=== PATIENT | male | born 1950 | race Caucasian/White ===

== ENCOUNTER → 2018-07-22 09:43 | Outpatient (CLI) | payer MEDICARE, MEDICAID, SELFPAY ==
--- NOTE | 2018-07-22 09:55 | DI.REPORT_ITS ---
SYMPTOMS/DIAGNOSIS: CELLULITIS OF RT LOWER LIMB, GREAT TOE RT, L03.115 RIGHT GREAT TOE: Three views. Comparison is 03/27/12. Destructive changes are seen at the terminal tuft of the right great toe. There is soft tissue swelling noted. The findings raise the question of osteomyelitis. Mass or neoplastic process can not be excluded. Please correlate clinically. Degenerative changes are seen at the first metatarsal phalangeal joint. There is a hallux valgus deformity noted. No radiopaque foreign bodies are seen in the soft tissues. Old fracture deformities are seen at the second, third and fourth metatarsals. IMPRESSION: Destructive changes involving the terminal tuft of the great toe with associated soft tissue swelling. The findings raise the question of osteomyelitis. Mass/neoplastic process can not be excluded. Please correlate clinically.
== END ==
PROVIDERS: PCP Nurse Practitioner Family; Visit Provider Nurse Practitioner Family
DX: L03.115 Cellulitis of right lower limb (principal); L03.031 Cellulitis of right toe; M79.89 Other specified soft tissue disorders
CPT/HCPCS: 73660

== ENCOUNTER 2018-09-01 14:24 | Outpatient (CLI) | payer MEDICARE, MEDICAID, SELFPAY ==
[2018-09-01 14:52] LABS: HCT 35.8 % (40.0-50.0); Mean Corp. HGB Concentration 33.5 g/dL (32.0-36.0); Mean Corpuscular Hemoglobin 30.2 pg (27.0-33.0); Mean Corpuscular Volume 89.9 fL (80-95); Mean Platelet Volume 9.6 fL (8.0-11.0); Platelet Count 204 x1000/uL (130-400); RBC 3.98 m/cumm (4.50-6.00); White Blood Cell Count 6.08 k/cumm (4.4-10.8)
[2018-09-01 15:35] LABS: ESR 77 MM/HR (1-20)
[2018-09-01 16:29] LABS: ALT 27 U/L (12-78); AST 25 U/L (15-37); Albumin 3.2 g/dL (3.4-5.0); Alkaline Phosphatase 120 U/L (46-116); Anion Gap 8.6 mmol/L (3-11); BUN 17 mg/dL (7-18); Bilirubin, Total 0.5 mg/dL (0.2-1.0); C-Reactive Protein 2.93 mg/dL (0.0-0.3); CO2 28.4 mmol/L (21.0-32.0); CREATININE 0.79 mg/dL (0.70-1.30); Calcium 8.7 mg/dL (8.5-10.1); Chloride 102 mmol/L (98-107); Glucose 146 mg/dL (70-100); Potassium 4.1 mmol/L (3.5-5.1); Sodium 139 mmol/L (136-145); Total Protein 7.3 g/dL (6.4-8.2)
== END 2018-09-01 14:44 ==
PROVIDERS: PCP Nurse Practitioner Family; Visit Provider Podiatrist
DX: E11.621 Type 2 diabetes mellitus with foot ulcer (principal); M86.679 Other chronic osteomyelitis, unspecified ankle and foot
CPT/HCPCS: 36415; 80053; 85027; 85652; 86140

== ENCOUNTER 2018-09-01 14:28 | Outpatient (REF) | payer MEDICARE, MEDICAID, SELFPAY | END 2018-09-01 14:48 | LOC: LBN 14:28 | PROVIDERS: PCP Nurse Practitioner Family; Visit Provider Podiatrist | DX: E11.621 Type 2 diabetes mellitus with foot ulcer (principal) | CPT/HCPCS: 87077; 87070; 87186; 87205 ==

== ENCOUNTER → 2019-01-01 09:05 | Outpatient (BNVA) | payer MEDICARE, MEDICAID, SELFPAY | PROVIDERS: PCP Nurse Practitioner Family; Referring Provider Nurse Practitioner Family; Visit Provider Orthopaedic Surgery | DX: M86.9 Osteomyelitis, unspecified (principal); L97.514 Non-pressure chronic ulcer of other part of right foot with necrosis of bone; E11.621 Type 2 diabetes mellitus with foot ulcer | CPT/HCPCS: 99212 ==

== ENCOUNTER 2019-01-12 09:06 | Day surgery (SDC) | payer MEDICARE, MEDICAID, SELFPAY ==
[2019-01-12 09:41] VITALS: BP 129/55; PULSE 99; RESP 18; TEMP 35.9; O2SAT 96
[2019-01-12] MEDS: Bupivacaine 0.5% Pres-Free 30 ML VIAL (11:59)
--- NOTE | 2019-01-12 12:11 | PDOC.DSDIS_ITS ---
Discharge Plan Disposition Patient Disposition: HOME Condition: Good Discharge Details Reason For Visit: Debridement R Great toe for Osteomyelitis Attending Provider: Chente Baires Primary Care Provider: Loretta Kennedy Home Meds and New Rx's Prescriptions: New cephalexin 750 mg capsule 750 mg PO TID Qty: 30 RF: 0 Continued methadone 10 MG/ML concentrate 225 mg PO DAILY RF: 0 gabapentin 600 MG tablet 600 mg PO QID RF: 0 lisinopril 20 MG tablet 20 mg PO DAILY RF: 0 clonazepam 1 MG tablet 1 mg PO DAILY PRN PRNRF: 0 methylphenidate HCl [Ritalin SR] 20 MG tablet extended release 20 mg PO BID RF: 0 metformin 500 MG tablet extended release 24 hr 1,500 mg PO DAILY RF: 0 levothyroxine 112 MCG tablet 112 mcg PO DAILY RF: 0 diclofenac potassium 50 MG tablet 50 mg PO TID PRN PRNQty: 20 RF: 0 clindamycin HCl 150 MG capsule 450 mg PO TID Qty: 63 RF: 0 Discharge Instructions Additional Instructions: Elevate R foot when sitting. Don't touch dressings. Keep dressings dry until return. Return to 's office on for dressing change. Take antibiotic as prescribed. Stand Alone Forms: DSU Post op Instructions, Staci Gaston (DSU) Referrals: Chente Baires MD [ [facility] STAFF PHYSICIAN] - (f/u on AM) Activity:: Activity as Tolerated Remove Dressings/Wound Care:: Do Not Remove Shower/Bathe:: Cover Diet:: As Tolerated Discharge Orders Discharge Orders: Discharge Order (Routine); Ordered 01/12/19 Ordered By: Chente Baires DS: Diagnosis Discharge Diagnosis (1) Toe osteomyelitis, right: Status: Acute
--- NOTE | 2019-01-14 17:55 | ROE_ITS ---
DATE OF PROCEDURE: January 12, 2019 PREOPERATIVE DIAGNOSIS: Osteomyelitis distal phalanx right great toe. POSTOPERATIVE DIAGNOSIS: Same. PROCEDURE: Amputation of the right great toe through IP joint. SURGEON: Chente Baires M.D. ANESTHESIA: Local digital block 0.5% Marcaine. INDICATIONS: This is a 68-year-old diabetic male who has had a problem with osteomyelitis of his rig ht great toe. In addition to the osteomyelitis, he has DJD which has caused the great toe to go into valgus so it impinges on the second toe. He has had some chronic drainage in the area of the IP kenton nt of the great toe. X-rays show resorption of at least 50% of the distal phalanx of the great toe. There does not appear to be a lot of active drainage. I recommended a basic amputation of the toe t o the IP joint. I felt that the distal volar skin of the toe was in good condition and I thought dusty t excising the infected bone would basically leave him with an amputation through the IP joint of the great toe. A secondary benefit would be that I would correct the valgus of the great toe and it wou ld no longer impinge on the second toe. Because of his poor sensation, this impingement of the great toe on the second toe I think would eventually cause skin breakdown and another ulcer on the second toe. The risks and complications of the procedure were explained to the patient in detail preoperati vellaury. PROCEDURE: The patient was taken to the Operating Room on 01/12/19. He was placed supine on the oper ating table. The right foot was prepped and draped free in the usual sterile fashion. I made a mcclellan sverse incision through the granulation tissue to the base of the distal phalanx. The distal phalanx was actually dislocated plantarward and laterally, causing the impingement on the second toe. The a rticular cartilage of the proximal phalanx was diseased and very soft, consistent with infection. Us ing a rongeur, I debrided the diseased bone to healthy bleeding bone on the proximal phalanx. I then excised sharply the rest of the distal phalanx of the great toe. I debrided all devitalized tissues so there was healthy bleeding from all wound margins. Prior to making the incision, I infiltrated t he digital nerves at the MTP joint of the great toe for analgesia. I then created flaps so that coul d be approximated with no tension using interrupted #3-0 nylon sutures. Medial and lateral dog ears were excised. Prior to closure, the wound was irrigated with Betadine and saline solution. The woun d was dressed with Xeroform gauze, Fluff gauze 4x4s between the toes, wrapped with a Kerlix bandage, and then wrapped with an Ren bandage. He was placed in a postoperative shoe. He tolerated the proce dure well and was discharged to the Day Surgery Unit in good condition. The patient was given a prescription for Keflex 500 mg q.6h. pending cultures. He will follow up vladimir tarango tn on 01/15/19 for a dressing change and wound check and check on his cultures. He will try to elev ate his right foot as much as possible for the next 48 to 72 hours. He can be weightbearing as gretchen ated with his postop shoe and he will leave the dressings clean and dry until he follows up on 9. discharged home from the Day Surgery Unit when fully recovered
== END 2019-01-12 12:55 | disposition home or self-care (01) ==
PROVIDERS: PCP Nurse Practitioner Family; Visit Provider Orthopaedic Surgery
PROC: (CPT 28825; principal; 2019-01-12 10:00)
DX: E11.69 Type 2 diabetes mellitus with other specified complication (principal); M86.9 Osteomyelitis, unspecified; M20.11 Hallux valgus (acquired), right foot; M19.071 Primary osteoarthritis, right ankle and foot; B95.61 Methicillin susceptible Staphylococcus aureus infection as the cause of diseases classified elsewhere; Z16.29 Resistance to other single specified antibiotic; Z16.19 Resistance to other specified beta lactam antibiotics
CPT/HCPCS: 28825; 87077; 87070; 87075; 87186; 87205

== ENCOUNTER → 2019-01-15 08:51 | Outpatient (BNVA) | payer MEDICARE, MEDICAID, SELFPAY | PROVIDERS: PCP Nurse Practitioner Family; Referring Provider Nurse Practitioner Family; Visit Provider Orthopaedic Surgery | DX: M86.9 Osteomyelitis, unspecified (principal); Z47.89 Encounter for other orthopedic aftercare; E11.40 Type 2 diabetes mellitus with diabetic neuropathy, unspecified; Z79.84 Long term (current) use of oral hypoglycemic drugs ==

== ENCOUNTER → 2019-01-29 08:46 | Outpatient (BNVA) | payer MEDICARE, MEDICAID, SELFPAY | PROVIDERS: PCP Nurse Practitioner Family; Referring Provider Nurse Practitioner Family; Visit Provider Orthopaedic Surgery | DX: M86.9 Osteomyelitis, unspecified (principal); Z48.02 Encounter for removal of sutures ==

== ENCOUNTER 2019-01-29 13:12 | Outpatient (REF) | payer MEDICARE, MEDICAID, SELFPAY | END 2019-01-29 13:32 | LOC: LBN 13:12 | PROVIDERS: PCP Nurse Practitioner Family; Visit Provider Orthopaedic Surgery | DX: S91.101A Unspecified open wound of right great toe without damage to nail, initial encounter (principal); L08.89 Other specified local infections of the skin and subcutaneous tissue | CPT/HCPCS: 87077; 87070; 87186; 87205 ==

== ENCOUNTER → 2019-02-03 09:20 | Outpatient (BNVA) | payer MEDICARE, MEDICAID, SELFPAY | PROVIDERS: PCP Nurse Practitioner Family; Referring Provider Nurse Practitioner Family; Visit Provider Orthopaedic Surgery | DX: M86.9 Osteomyelitis, unspecified (principal); L08.89 Other specified local infections of the skin and subcutaneous tissue ==

== ENCOUNTER → 2019-02-05 10:26 | Outpatient (BNVA) | payer MEDICARE, MEDICAID, SELFPAY | PROVIDERS: PCP Nurse Practitioner Family; Referring Provider Nurse Practitioner Family; Visit Provider Orthopaedic Surgery | DX: Z89.411 Acquired absence of right great toe (principal); Z47.89 Encounter for other orthopedic aftercare ==

== ENCOUNTER → 2019-02-18 09:08 | Outpatient (BNVA) | payer MEDICARE, MEDICAID, SELFPAY | PROVIDERS: PCP Nurse Practitioner Family; Referring Provider Nurse Practitioner Family; Visit Provider Orthopaedic Surgery | DX: Z89.411 Acquired absence of right great toe (principal); Z47.89 Encounter for other orthopedic aftercare; E11.9 Type 2 diabetes mellitus without complications ==

== ENCOUNTER → 2019-02-25 10:17 | Outpatient (BNVA) | payer MEDICARE, MEDICAID, SELFPAY | PROVIDERS: PCP Nurse Practitioner Family; Referring Provider Nurse Practitioner Family; Visit Provider Orthopaedic Surgery | DX: Z47.89 Encounter for other orthopedic aftercare (principal); M86.9 Osteomyelitis, unspecified; Z89.421 Acquired absence of other right toe(s) ==

== ENCOUNTER → 2019-03-05 09:16 | Outpatient (BNVA) | payer MEDICARE, MEDICAID, SELFPAY | PROVIDERS: PCP Nurse Practitioner Family; Referring Provider Nurse Practitioner Family; Visit Provider Orthopaedic Surgery | DX: Z47.89 Encounter for other orthopedic aftercare (principal); Z89.429 Acquired absence of other toe(s), unspecified side; M86.9 Osteomyelitis, unspecified ==

== ENCOUNTER → 2019-03-12 10:46 | Outpatient (BNVA) | payer MEDICARE, MEDICAID, SELFPAY | PROVIDERS: PCP Nurse Practitioner Family; Referring Provider Nurse Practitioner Family; Visit Provider Orthopaedic Surgery | DX: Z89.429 Acquired absence of other toe(s), unspecified side (principal); Z47.89 Encounter for other orthopedic aftercare; E11.9 Type 2 diabetes mellitus without complications; Z79.84 Long term (current) use of oral hypoglycemic drugs ==

== ENCOUNTER → 2019-03-26 10:29 | Outpatient (BNVA) | payer MEDICARE, MEDICAID, SELFPAY | PROVIDERS: PCP Nurse Practitioner Family; Referring Provider Nurse Practitioner Family; Visit Provider Orthopaedic Surgery | DX: Z47.89 Encounter for other orthopedic aftercare (principal); Z89.411 Acquired absence of right great toe; F17.210 Nicotine dependence, cigarettes, uncomplicated; E11.9 Type 2 diabetes mellitus without complications | CPT/HCPCS: 99211 ==

== ENCOUNTER → 2019-04-23 10:42 | Outpatient (BNVA) | payer MEDICARE, MEDICAID, SELFPAY | PROVIDERS: PCP Nurse Practitioner Family; Referring Provider Nurse Practitioner Family; Visit Provider Orthopaedic Surgery | DX: Z47.89 Encounter for other orthopedic aftercare (principal); Z89.411 Acquired absence of right great toe; E11.9 Type 2 diabetes mellitus without complications | CPT/HCPCS: 99211 ==

== ENCOUNTER 2019-05-25 11:39 | Outpatient (CLI) | payer MEDICARE, MEDICAID, SELFPAY ==
--- NOTE | 2019-05-25 10:27 | DI.RAD_ITS ---
SYMPTOM/DIAGNOSIS: PLEURITIC CHEST PAIN, R07.81 SPUTUM PRODUCTION S/P INJURY TO CHEST WALL PA AND LATERAL CHEST: Comparison is made with 21 July 2011 The heart size is normal. There are emphysematous changes. No infiltrate or effusion is seen. There is no evidence of pneumothorax. There is a left 8th rib fracture. There is a mild compression fracture in the mid thoracic spine of indeterminate age likely old. IMPRESSION: Left 8th rib fracture. No evidence of pneumothorax or infiltrate.
== END 2019-05-25 11:59 ==
PROVIDERS: PCP Nurse Practitioner Family; Visit Provider Family Medicine
DX: R07.81 Pleurodynia (principal); S22.32XA Fracture of one rib, left side, initial encounter for closed fracture; R09.3 Abnormal sputum; M48.54XD Collapsed vertebra, not elsewhere classified, thoracic region, subsequent encounter for fracture with routine healing
CPT/HCPCS: 71046

== ENCOUNTER 2019-06-30 15:45 | Outpatient (REF) | payer MEDICARE, MEDICAID, SELFPAY ==
[2019-06-30 20:18] LABS: HCT 41.6 % (40.0-50.0); HGB 13.8 g/dL (13.5-17.5); Mean Corp. HGB Concentration 33.2 g/dL (32.0-36.0); Mean Corpuscular Hemoglobin 29.8 pg (27.0-33.0); Mean Corpuscular Volume 89.8 fL (80-95); Mean Platelet Volume 11.6 fL (8.0-11.0); Platelet Count 216 x1000/uL (130-400); RBC 4.63 m/cumm (4.50-6.00); RBC Distribution Width 12.6 % (11.8-14.1); White Blood Cell Count 7.36 k/cumm (4.4-10.8)
[2019-06-30 20:54] LABS: ALT 35 U/L (12-78); AST 19 U/L (15-37); Albumin 3.8 g/dL (3.4-5.0); Alkaline Phosphatase 112 U/L (46-116); Anion Gap 9.6 mmol/L (3-11); BUN 22 mg/dL (7-18); Bilirubin, Total 0.5 mg/dL (0.2-1.0); CO2 29.4 mmol/L (21.0-32.0); CREATININE 1.06 mg/dL (0.70-1.30); Calcium 9.4 mg/dL (8.5-10.1); Chloride 102 mmol/L (98-107); Glucose 280 mg/dL (70-100); Potassium 4.8 mmol/L (3.5-5.1); Sodium 141 mmol/L (136-145); TSH (W/Ref FT4) 1.65 uIU/mL (0.36-3.74); Total Protein 8.3 g/dL (6.4-8.2)
== END 2019-06-30 16:05 ==
LOC: NCHCN 15:45
PROVIDERS: PCP Nurse Practitioner Family; Visit Provider Nurse Practitioner Family
DX: E11.9 Type 2 diabetes mellitus without complications (principal); E03.9 Hypothyroidism, unspecified; I10 Essential (primary) hypertension
CPT/HCPCS: 80053; 85027; 84443

== ENCOUNTER 2019-08-07 01:29 | Outpatient (CLI) | payer MEDICARE, MEDICAID, SELFPAY ==
--- NOTE | 2019-08-07 09:37 | MERGE_ITS ---
*[facility]* *[facility]* [address] [place] [address] Date of study: 08/07/2019 Transthoracic Echocardiography M-mode, complete 2D, complete spectral Doppler, and color Doppler *STUDY CONCLUSIONS* Summary: 1. Left ventricle: The cavity size was normal. Wall thickness was normal. Systolic function was normal. The estimated ejection fraction was 55-60%. Wall motion was normal; there were no regional wall motion abnormalities. 2. Right ventricle: The cavity size was normal. Wall thickness was normal. Systolic function was normal. *PATIENT PRESENTATION* Height: 190.5cm (75in ) S/D Pressure: 156 / 75 Weight: 93kg (204.6lb ) BSA: 2.23m^2 Test start time: 09:37 AM. Test stop time: 10:34 AM. PERFORMING Unknown PERFORMING [facility] SPORTS INSTRUCTOR Patricia Houston CONSULTING Galen Rivera Logan D REFERRING Galen Rivera *PROCEDURE DATA* Procedure information: This study was interpreted by [facility]. Pertinent images and digital data are archived for permanent storage and are available for subsequent review. No prior study was available for comparison. Study status: Routine. Transthoracic echocardiography. M-mode, complete 2D, complete spectral Doppler, and color Doppler. A Transthoracic Echocardiogram was performed. Scanning was performed from the parasternal, apical, subcostal, and suprasternal notch acoustic windows. Images were obtained using an [employer] 2000 cardiac ultrasound machine. Image quality was adequate. Study completion: The patient tolerated the procedure well. There were no complications. History: PMH: Abnormal heart sounds. *CARDIAC ANATOMY* Left ventricle: The cavity size was normal. Wall thickness was normal. Systolic function was normal. The estimated ejection fraction was 55-60%. Wall motion was normal; there were no regional wall motion abnormalities. Diastolic parameters were normal for age. Aortic valve: Trileaflet; normal thickness leaflets. Mobility was not restricted. Doppler: Transvalvular velocity was within the normal range. There was no stenosis. There was no significant regurgitation. VTI ratio of LVOT to aortic valve: 0.94. Valve area (VTI): 3.1cm^2. Indexed valve area (VTI): 1.4cm^2/m^2. Peak velocity ratio of LVOT to aortic valve: 0.91. Valve area (Vmax): 3cm^2. Indexed valve area (Vmax): 1.4cm^2/m^2. Mean velocity ratio of LVOT to aortic valve: 0.79. Valve area (Vmean): 2.6cm^2. Indexed valve area (Vmean): 1.2cm^2/m^2. Mean gradient (S): 3.3mm Hg. Peak gradient (S): 7mm Hg. Aorta: Aortic root: The aortic root was normal in size. Ascending aorta: The ascending aorta was normal in size. Mitral valve: Structurally normal valve. Mobility was not restricted. Doppler: Transvalvular velocity was within the normal range. There was no evidence for stenosis. There was no significant regurgitation. Valve area by pressure half-time: 3.4cm^2. Indexed valve area by pressure half-time: 1.5cm^2/m^2. Left atrium: The atrium was normal in size. Right ventricle: The cavity size was normal. Wall thickness was normal. Systolic function was normal. Pulmonic valve: The pulmonary valve appears to be grossly normal. Doppler: Transvalvular velocity was within the normal range. There was no evidence for stenosis. There was no significant regurgitation. Peak gradient (S): 4.7mm Hg. Tricuspid valve: Structurally normal valve. Doppler: Transvalvular velocity was within the normal range. There was no evidence for stenosis. There was trivial regurgitation. Pulmonary artery: Pulmonary systolic pressure was within the normal range, in the range of 25mm Hg to 30mm Hg. Right atrium: The atrium was normal in size. Pericardium: There was no pericardial effusion. Systemic veins: Inferior vena cava: The vessel was normal in size. Measurements Left ventricle Value Reference LV ID, ED, PLAX 4.7 cm 3.5 - 6.0 LV ID, ES, PLAX 3.2 cm 2.1 - 4.0 LV PW thickness, ED, PLAX 0.7 cm LV end-diastolic volume, 1-p A2C 120 ml LV ejection fraction, 1-p A2C 60 % LV end-diastolic volume, 1-p A4C 97 ml LV ejection fraction, 1-p A4C 55 % LV e', lateral 0.074 m/sec LV E/e', lateral 8 LV e', medial 0.074 m/sec LV E/e', medial 8 LV e', average 0.074 m/sec LV E/e', average 8 Ventricular septum Value Reference IVS thickness, ED, PLAX 0.8 cm LVOT Value Reference LVOT ID, A-P 2.1 cm LVOT area 3.3 cm^2 LVOT peak velocity, S 1.21 m/sec LVOT mean velocity, S 0.68 m/sec LVOT VTI, S 21.5 cm LVOT peak gradient, S 5.9 mm Hg LVOT mean gradient, S 2.3 mm Hg Stroke volume (SV), LVOT DP 71 ml Stroke index (SV/bsa), LVOT DP 32 ml/m^2 Aortic valve Value Reference Aortic valve peak velocity, S 1.3 m/sec Aortic valve mean velocity, S 0.9 m/sec Aortic valve VTI, S 23.0 cm Aortic mean gradient, S 3.3 mm Hg Aortic peak gradient, S 7 mm Hg VTI ratio, LVOT/AV 0.94 Aortic valve area, VTI 3.1 cm^2 Velocity ratio, peak, LVOT/AV 0.91 Aortic valve area, peak velocity 3 cm^2 Velocity ratio, mean, LVOT/AV 0.79 Aortic valve area, mean velocity 2.6 cm^2 Aortic valve area/bsa, mean velocity 1.2 cm^2/m^2 Aorta Value Reference Aortic root ID, ED 3.1 cm Ascending aorta ID, A-P, S 3.1 cm Left atrium Value Reference LA ID, A-P, ES 3.2 cm LA ID/bsa, A-P 1.4 cm/m^2 <=2.2 LA volume, ES, 2-p 59 ml LA volume/bsa, ES, 2-p 27 ml/m^2 LA/aortic root ratio 1.05 Mitral valve Value Reference Mitral E-wave peak velocity 0.61 m/sec Mitral A-wave peak velocity 0.68 m/sec Mitral deceleration time 224 ms 150 - 230 Mitral pressure half-time 65 ms Mitral E/A ratio, peak 0.89 Mitral valve area, PHT, DP 3.4 cm^2 Tricuspid valve Value Reference Tricuspid regurg peak velocity 2.8 m/sec Tricuspid peak RV-RA gradient 30.4 mm Hg Right atrium Value Reference RA area, ES, A4C 17.4 cm^2 8.3 - 19.5 Pulmonic valve Value Reference Pulmonic peak gradient, S 4.7 mm Hg Legend: (L) and (H) radha values outside specified reference range. I have personally reviewed the images and have reviewed and edited the reported findings. Electronically signed by Elkin Hackett 08/07/2019 13:54
== END 2019-08-07 01:49 ==
PROVIDERS: PCP Nurse Practitioner Family; Visit Provider Nurse Practitioner Family
DX: R01.2 Other cardiac sounds (principal); I10 Essential (primary) hypertension
CPT/HCPCS: 93306

== ENCOUNTER 2019-12-19 19:05 | Emergency (ER) | payer MEDICARE, MEDICAID, SELFPAY ==
[2019-12-19 19:10] VITALS: BP 110/39; PULSE 109; RESP 20; TEMP 37.1; O2SAT 95
--- NOTE | 2019-12-19 19:27 | ED.GENADUL_ITS ---
Discharge Plan Disposition Patient Disposition: AGAINST MEDICAL ADVICE Condition: Poor Discharge Details Chief Complaint: Cellulitis Clinical Impression: Toe osteomyelitis, right Primary Care Provider: Galen Rivera ED Provider: Ankit Forman Home Meds and New Rx's Prescriptions: New clindamycin HCl 300 mg capsule 300 mg PO Q6H 10 Days Qty: 40 RF: 0 amoxicillin-pot clavulanate [Augmentin] 875-125 mg tablet 1 tab PO BID Qty: 14 RF: 0 Continued methadone 10 MG/ML concentrate 225 mg PO DAILY RF: 0 gabapentin 600 MG tablet 600 mg PO QID RF: 0 lisinopril 20 MG tablet 20 mg PO DAILY RF: 0 clonazepam 1 MG tablet 1 mg PO DAILY PRN PRNRF: 0 levothyroxine 112 MCG tablet 112 mcg PO DAILY RF: 0 metformin 500 mg tablet extended release 24 hr 1,500 mg PO DAILY RF: 0 Discharge Instructions Instructions: Osteomyelitis (ED) Additional Instructions: you chose to leave against medical advise if you change your mind and want to be admitted you can return at any time. If you choose not to return follow up with your surgeon and primary care provider this week Medical Decision Making <Chente Cole MD - Last Filed: 12/19/19 19:31> 69-year-old male diabetic with a history of previous toe amputation presents stating he noticed today that his right second toe was erythematous and swollen, he became concerned for infection, and presented to the ER. The patient has a resting pulse ox of borderline at approximately 100. His blood pressure is 110/39. He is afebrile with a temp of 37.1. The right second toe is erythematous and slightly swollen. Concern for underlying osteomyelitis versus cellulitis. Screening laboratories obtained and patient referred for x- ray. Blood cultures obtained and the patient given clindamycin IV. <Ankit Forman MD - Last Filed: 12/19/19 21:07> patient's labs show lactate over 2, xray shows likely osteo. 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 HE has decision making capacity and understands risks of leaving including worsening infection causing loss of limb, permanent disability and and is willing to accept these risks. 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 He was advised he can return at any time and also if he chooses not to return to follow up with pcp and his surgeon Imaging Data Radiologic Study: Attestation: I personally reviewed and interpreted this imaging study as follows: Imaging: X-Ray Radiologist's impression: IMPRESSION: 1. Possible cortical erosion about the 2nd digit distal tuft is nonspecific but could represent osseous infection. 2. Status post partial resection of the 1st digit with mild cortical irregularity along the surgical margin. Infection cannot be excluded. Lab Data Lab results reviewed: Yes I reviewed the patient's lab results. HPI <Chente Cole MD - Last Filed: 12/19/19 19:31> General Mode of arrival: ambulatory . Date/Time Provider Initiated Documentation: 12/19/19 19:05 . Limitations to Documentation: no limitations . Information obtained by: patient . History of Present Illness 69 year old M presents to the emergency department with the chief complaint of Right second toe infection is discomfort, described as moderate, Quality is described as dull and constant, and is localized to the right and lower extremity. Patient started experiencing this unknown (States he just noticed this today) and it has been constant. No relieving factors improve symptom(s), No exacerbating factors reported . Patient did receive the following treatments prior to arrival, none Related Data Home Medications Medication Instructions Recorded Confirmed clonazepam 1 mg PO DAILY PRN PRN 04/07/13 12/19/19 gabapentin 600 mg PO QID 04/07/13 12/19/19 levothyroxine 112 mcg PO DAILY 04/07/13 12/19/19 lisinopril 20 mg PO DAILY 04/07/13 12/19/19 methadone 225 mg PO DAILY 04/07/13 12/19/19 metformin 500 mg tablet,extended 1,500 mg PO DAILY 01/15/19 12/19/19 release 24 hr amoxicillin-pot clavulanate 1 tab PO BID #14 tab 12/19/19 [Augmentin] clindamycin HCl 300 mg PO Q6H 10 Days #40 cap 12/19/19 Previous Rx's Medication Instructions Recorded amoxicillin-pot clavulanate 1 tab PO BID #14 tab 12/19/19 [Augmentin] clindamycin HCl 300 mg PO Q6H 10 Days #40 cap 12/19/19 Allergies Allergy/AdvReac Type Severity Reaction Status Date / Time codeine AdvReac itching Unverified 12/19/19 19:15 and bloutchy naloxone HCl [From Narcan] AdvReac Unverified 12/19/19 19:15 pentazocine lactate AdvReac makes me Unverified 12/19/19 19:15 [From Erica] deathly ill Narcotic AdvReac H/O drug Uncoded 12/19/19 19:15 abuse narcotic antagonists AdvReac Uncoded 12/19/19 19:15 General Stated Complaint: Cellulitis ANNE: 3 Review of Systems <Chente Cole MD - Last Filed: 12/19/19 19:31> Narrative: Subjective question of fever, no trauma, states that he has otherwise been well. No increased frequency of urination. Does not regularly check his glucose. 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 Pleasant, well groomed, interactive. HEAD: Normocephalic, atraumatic ENT: Mucous membranes moist, oropharynx unremarkable, External ear exam unremarkable EYES: PERRL, EOMI NECK: Full ROM, no FABIOLA, no menigismus CHEST/RESP: Nontender, clear to auscultation bilateral, no wheeze/rhonchi/rales CARDIOVASCULAR: RRR, no murmur, rub enoch. 2+ Rad pulse bilateral EXT: Full ROM, right great toe status post amputation, there is small ulceration present at the base of this toe with granulation tissue. The right second toe is tender and erythematous. Neuro: Grossly normal neurologic exam, conversant, interactive. Psych: Speech fluent, thoughts congruent, affect normal Course <Chente Cole MD - Last Filed: 12/19/19 19:31> Vital Signs Vital signs: Vital Signs Temperature 37.1 C 12/19/19 19:10 Pulse 109 H 12/19/19 19:10 Respiratory Rate 20 12/19/19 19:10 Blood Pressure 110/39 L 12/19/19 19:10 Pulse Oximetry 95 12/19/19 19:10 Temperature 37.1 C 12/19/19 19:10 Temperature Source Temporal Artery Scan 12/19/19 19:10 Pulse 109 H 12/19/19 19:10 Respiratory Rate 12/19/19 19:10 Respiratory Effort Non-Labored 12/19/19 19:17 Blood Pressure 110/39 L 12/19/19 19:10 Blood Pressure Position Sitting 12/19/19 19:10 Pulse Oximetry 95 12/19/19 19:10 Oxygen Delivery Method Room Air 12/19/19 19:10 Oxygen Flow Rate 0 12/19/19 19:10 Pain Level 5 12/19/19 19:10 Lab/Test Results Lab/Test Results: 12/19/19 19:25 Blood Blood Culture - Pending 12/19/19 19:25 Blood Blood Culture - Pending Sign Out <Chente Cole MD - Last Filed: 12/19/19 19:31> Sign Out Data: Sign Out Comment: followup labs/xr Last updated by Chente Cole MD at 12/19/19 19:37
--- NOTE | 2019-12-19 19:27 | DI.RAD_ITS ---
EXAM: XR TOE RT SECOND INDICATION: Diabetes, pain and redness. COMPARISON: RIGHT FOOT COMPLETE from 03/27/2012 RIGHT GREAT TOE from 07/22/2018 RIGHT GREAT TOE from 07/22/2018 TECHNIQUE: 2D digital imaging was performed. FINDINGS: There is soft tissue swelling around the 2nd toe. There is erosion of the tuft of the distal phalanx consistent with osteomyelitis. There has been partial amputation of the great toe. There is a questi on of small acute erosion of the great toe distally. There are degenerative changes of the interphala ngeal joints and 1st MTP joint. There are old fractures of the 2nd through 4th metatarsals. IMPRESSION: Osteomyelitis of the distal phalanx of the 2nd toe. Question of a small lucency in remaining portion of the distal phalanx of the great toe.
[2019-12-19 20:12] LABS: Lactate 2.6 mmol/L (0.6-1.4)
[2019-12-19 20:15] LABS: Abs Immature Grans 0.01 k/cumm (0.0-0.09); Absolute Basophil Count 0.06 k/cumm (0.0-0.2); Absolute Eosinophil Count 0.36 k/cumm (0.0-0.7); Absolute Lymphocyte Count 2.16 k/cumm (1.2-3.4); Absolute Monocyte Count 0.69 k/cumm (0.11-0.7); Absolute Neutrophil Count 2.84 k/cumm (1.2-6.7); Eosinophils % 5.9; HCT 38.8 % (40.0-50.0); HGB 12.9 g/dL (13.5-17.5); Immature Grans % 0.2 %; Lymphocytes % 35.3; Mean Corp. HGB Concentration 33.2 g/dL (32.0-36.0); Mean Corpuscular Hemoglobin 30.1 pg (27.0-33.0); Mean Corpuscular Volume 90.4 fL (80-95); Mean Platelet Volume 10.1 fL (8.0-11.0); Monocytes % 11.3; Neutrophils % 46.3; Platelet Count 297 x1000/uL (130-400); RBC 4.29 m/cumm (4.50-6.00); RBC Distribution Width 12.3 % (11.8-14.1); White Blood Cell Count 6.12 k/cumm (4.4-10.8)
[2019-12-19] MEDS: CLINDAMYCIN 600 MG/50 ML BAG 100 MG IVPB (20:24)
--- NOTE | 2019-12-19 20:25 | DI.VRAD_ITS ---
PROCEDURE INFORMATION: Exam: XR Right Toe(s) Exam date and time: 12/19/2019 8:16 PM Age: 69 years old Clinical indication: Toes; Right; Patient HX: Diabetes, pain and redness TECHNIQUE: Imaging protocol: XR Right toes. Views: Minimum 2 views. COMPARISON: CR RIGHT GREAT TOE 07/22/2018 9:44 AM FINDINGS: Bones/joints: Status post partial resection of the 1st digit with mild cortical irregularity along the surgical margin. Possible cortical erosion about the 2nd digit distal tuft. Extensive degenerative changes about the 2nd and 3rd digit and partially visualized 1st metatarsophalangeal joint. Soft tissues: Normal. IMPRESSION: 1. Possible cortical erosion about the 2nd digit distal tuft is nonspecific but could represent osseous infection. 2. Status post partial resection of the 1st digit with mild cortical irregularity along the surgical margin. Infection cannot be excluded. Dictated and Authenticated by: Venu Gallardo MD. Ordering:SHRAVAN Eldridge MD
[2019-12-19] MEDS: Normal Saline Flush 10 ML SYR IVP (20:27)
[2019-12-19] MEDS: Normal Saline 1,000 ML 125 ML IV (20:27)
[2019-12-19 20:45] LABS: ALT 26 U/L (16-63); AST 26 U/L (15-37); Albumin 3.2 g/dL (3.4-5.0); Alkaline Phosphatase 111 U/L (46-116); BUN 22 mg/dL (7-18); Bilirubin, Total 0.4 mg/dL (0.2-1.0); C-Reactive Protein 6.39 mg/dL (0.0-0.3); CREATININE 0.98 mg/dL (0.70-1.30); Chloride 103 mmol/L (98-107); Glucose 185 mg/dL (74-106); Potassium 4.6 mmol/L (3.5-5.1); Sodium 140 mmol/L (136-145); Total Protein 7.8 g/dL (6.4-8.2)
[2019-12-19 21:19] VITALS: BP 110/39; PULSE 109; RESP 20; TEMP 37.1; O2SAT 95
== END 2019-12-19 21:30 | disposition left against medical advice (07) ==
PROVIDERS: Emergency Medicine; Emergency Provider Emergency Medicine; PCP Nurse Practitioner Family
DX: M86.171 Other acute osteomyelitis, right ankle and foot (principal); Z53.29 Procedure and treatment not carried out because of patient's decision for other reasons; I10 Essential (primary) hypertension; E11.9 Type 2 diabetes mellitus without complications; Z79.84 Long term (current) use of oral hypoglycemic drugs
CPT/HCPCS: 36415; 80053; 87040; 96365; 99284; 73660; 83605; 85025; 86140

== ENCOUNTER 2019-12-20 13:02 | Inpatient (IN) | payer MEDICARE, MEDICAID, SELFPAY ==
[2019-12-20] VITALS (27 sets, daily range): BP systolic 114–162; BP diastolic 57–95; PULSE 62–114; RESP 9–25; TEMP 36.1–37.2; O2SAT 93–96
--- NOTE | 2019-12-20 13:55 | W.ED.GENAD ---
Discharge Plan Discharge Details Chief Complaint: Orthopedic Primary Care Provider: Galen Rivera ED Provider: Rosita Hamilton Home Meds and New Rx's Prescriptions: No Action methadone 10 MG/ML concentrate 225 mg PO DAILY RF: 0 gabapentin 600 MG tablet 600 mg PO QID RF: 0 lisinopril 20 MG tablet 20 mg PO DAILY RF: 0 clonazepam 1 MG tablet 1 mg PO DAILY PRN PRNRF: 0 levothyroxine 112 MCG tablet 112 mcg PO DAILY RF: 0 metformin 500 mg tablet extended release 24 hr 1,500 mg PO DAILY RF: 0 clindamycin HCl 300 mg capsule 300 mg PO Q6H 10 Days Qty: 40 RF: 0 amoxicillin-pot clavulanate [Augmentin] 875-125 mg tablet 1 tab PO BID Qty: 14 RF: 0 Medical Decision Making Is a 69-year-old gentleman presenting for reevaluation of his right foot. Patient was evaluated in the emergency room yesterday. Ultimately diagnosed with osteomyelitis of his right foot. Patient refused admission to the hospital as he had family responsibilities he needed to attend to. Patient has since been able to clear his childcare responsibilities and is able to be admitted at this time. Patient received clindamycin IV yesterday after obtaining labs and blood cultures. Patient discharged on clindamycin as well as Augmentin. Patient reports blood sugar of 185 at home. Patient reports general malaise. Denies measured fever. Patient denies any new injury or trauma. Requesting admission to the hospital at this time. Repeat labs obtained. Spoke with hospitalist regarding admission to the hospital. Hospitalist will accept this patient's admission recommends Zosyn and Vanco to be provided and initiated in the emergency room. HPI General Date/Time Provider Initiated Documentation: 12/20/19 13:05. HPI Narrative: There is a 69-year-old diabetic patient returning to the emergency room after signing out AMA yesterday. Patient presented yesterday with a right foot cellulitis specifically of the second toe noted with increased redness, discomfort and drainage. Patient ultimately evaluated in the emergency room was noted to have a mild increase in his lactate as well as an x-ray finding concerning of erosion consistent with osteomyelitis. 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 Patient was unable to be admitted as he cares for a grandson. Patient has since managed his grandchild's care and is requesting admission to the hospital. Patient received clindamycin yesterday IV and discharged home on clindamycin and Augmentin orally. Patient denies any changes since his evaluation yesterday. Denies any new fever, chills. Does report general malaise. No new injury or trauma. No other concerns or complaints. Related Data Home Medications Medication Instructions Recorded Confirmed clonazepam 1 mg PO DAILY PRN PRN 04/07/13 12/19/19 gabapentin 600 mg PO QID 04/07/13 12/19/19 levothyroxine 112 mcg PO DAILY 04/07/13 12/19/19 lisinopril 20 mg PO DAILY 04/07/13 12/19/19 methadone 225 mg PO DAILY 04/07/13 12/19/19 metformin 500 mg tablet,extended 1,500 mg PO DAILY 01/15/19 12/19/19 release 24 hr amoxicillin-pot clavulanate 1 tab PO BID #14 tab 12/19/19 [Augmentin] clindamycin HCl 300 mg PO Q6H 10 Days #40 cap 12/19/19 Previous Rx's Medication Instructions Recorded amoxicillin-pot clavulanate 1 tab PO BID #14 tab 12/19/19 [Augmentin] clindamycin HCl 300 mg PO Q6H 10 Days #40 cap 12/19/19 Allergies Allergy/AdvReac Type Severity Reaction Status Date / Time codeine AdvReac itching Unverified 12/19/19 19:15 and bloutchy naloxone HCl [From Narcan] AdvReac Unverified 12/19/19 19:15 pentazocine lactate AdvReac makes me Unverified 12/19/19 19:15 [From Erica] deathly ill Narcotic AdvReac H/O drug Uncoded 12/19/19 19:15 abuse narcotic antagonists AdvReac Uncoded 12/19/19 19:15 General Stated Complaint: Orthopedic ANNE: 3 Review of Systems All systems reviewed & are unremarkable except as noted in HPI and below Constitutional Constitutional: Denies fever(s) and Reports malaise Cardiovascular Cardiovascular: Denies chest pain and Denies dyspnea on exertion Respiratory Respiratory: Denies dyspnea on exertion Gastrointestinal Gastrointestinal: Denies abdominal pain, Denies nausea and Denies vomiting Musculoskeletal Musculoskeletal: Denies numbness and Denies tingling Integumentary/Breasts Skin/Breast: Reports erythema, Reports skin swelling and Reports wounds Neurologic Neurologic: Denies numbness and Denies tingling [facility] Medical History Anxiety (Chronic) Diabetes (Chronic) History of amputation of great toe (Acute) Hypertension (Chronic) Substance abuse in remission (Acute) Social History Smoking/Tobacco Use Status: Current every day Tobacco Type: cigars Alcohol Intake: former Drug use: Current Sobriety Substance use type: former substance user Do you feel safe at home: Yes Do you feel safe in your relationship?: Yes Exam Narrative Exam Narrative: CONST: Pale appearing patient, in no acute distress. Well hydrated. Alert and oriented. CHEST: Normal insepection of the chest. RESP: Normal respiratory effort. Speaking full sentences. No cough. No audible wheezing. No retractions. CARDIO: No JVD. Regular rate and rhythm. MUSCULOSKELETAL: Normal Gait. FROM of all extremities. Right foot with multiple wounds noted. First toe with a medial wound with mild ulceration noted, second toe with significant erythema, swelling and drainage present. Plantar aspect of the foot has a early ulcer noted on the plantar fourth toe distally early ulcer noted on the base of the foot with no associated cellulitis. SKIN: Normal. Dry. No rashes. NEURO: Alert and awake. Speech clear. PSYCH: Normal affect. Cooperative. Course Vital Signs Vital signs: Vital Signs Temperature 37.1 C 12/20/19 13:06 Pulse 114 H 12/20/19 13:06 Respiratory Rate 18 12/20/19 13:06 Blood Pressure 162/75 H 12/20/19 13:06 Pulse Oximetry 95 12/20/19 13:06 Temperature 37.1 C 12/20/19 13:06 Temperature Source Temporal Artery Scan 12/20/19 13:06 Pulse 114 H 12/20/19 13:06 Respiratory Rate 18 12/20/19 13:06 Respiratory Effort Non-Labored 12/20/19 13:08 Blood Pressure 162/75 H 12/20/19 13:06 Blood Pressure Position Sitting 12/20/19 13:06 Pulse Oximetry 95 12/20/19 13:06 Oxygen Delivery Method Room Air 12/20/19 13:06 Oxygen Flow Rate 0 01/26/20 13:06 Pain Level 3 12/20/19 13:06
[2019-12-20 14:25] LABS: Lactate 1.8 mmol/L (0.6-1.4)
[2019-12-20 14:30] LABS: Abs Immature Grans 0.01 k/cumm (0.0-0.09); Absolute Basophil Count 0.04 k/cumm (0.0-0.2); Absolute Eosinophil Count 0.22 k/cumm (0.0-0.7); Absolute Lymphocyte Count 1.43 k/cumm (1.2-3.4); Absolute Monocyte Count 0.45 k/cumm (0.11-0.7); Absolute Neutrophil Count 3.56 k/cumm (1.2-6.7); Basophils % 0.7; Eosinophils % 3.9; HCT 39.9 % (40.0-50.0); HGB 13.3 g/dL (13.5-17.5); Immature Grans % 0.2 %; Mean Corp. HGB Concentration 33.3 g/dL (32.0-36.0); Mean Corpuscular Hemoglobin 30.3 pg (27.0-33.0); Mean Corpuscular Volume 90.9 fL (80-95); Monocytes % 7.9; Neutrophils % 62.3; Platelet Count 297 x1000/uL (130-400); RBC 4.39 m/cumm (4.50-6.00); RBC Distribution Width 12.5 % (11.8-14.1); White Blood Cell Count 5.71 k/cumm (4.4-10.8)
[2019-12-20] MEDS: PIPERACILLIN/TAZO 4.5 GM in Normal Saline 100 ML IVPB ×2 (14:35→23:07)
[2019-12-20] MEDS: Normal Saline Flush 10 ML SYR IVP (14:40)
[2019-12-20 14:41] LABS: ALT 27 U/L (16-63); AST 27 U/L (15-37); Albumin 3.4 g/dL (3.4-5.0); Alkaline Phosphatase 114 U/L (46-116); Anion Gap 9.1 mmol/L (3-11); BUN 24 mg/dL (7-18); Bilirubin, Total 0.6 mg/dL (0.2-1.0); CO2 28.9 mmol/L (21.0-32.0); CREATININE 1.18 mg/dL (0.70-1.30); Calcium 8.8 mg/dL (8.5-10.1); Chloride 99 mmol/L (98-107); Glucose 347 mg/dL (74-106); Potassium 4.7 mmol/L (3.5-5.1); Sodium 137 mmol/L (136-145); Total Protein 8.1 g/dL (6.4-8.2)
[2019-12-20] MEDS: Normal Saline 1,000 ML 1000 ML IV (14:45)
[2019-12-20] MEDS: VANCOMYCIN 1,500 MG in Normal Saline 250 ML 166.6666 MG IVPB (15:46)
--- NOTE | 2019-12-20 16:24 | HPE_ITS ---
Date of service: 12/20/19 Time of Service: 16:24 Assessment and Plan Assessment and plan (1) Osteomyelitis of second toe of right foot: Status: Acute Assessment and plan: Continue parenteral antibiotics with vancomycin and Zosyn. Consult with orthopedic surgeon for surgical amputation of the right s econd toe. I will also ask Dr. Baires to evaluate patient's left great toe as it has a nonhealing ulcer on the tip. Patient needs to be more vigilant with his diabetes control. Patient I had a lengthy discussion about his need for monitoring his blood sugars and controlling with adjustment of his insulin. For tonight I am to put him in the intensive care unit for an insulin drip to get his sugars under immediate control and then transition to basal bolus insulin starting tomorrow after surgery. 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 Patient admits that he does not like to stick his fingers to check his glucose. He sometimes forgets to take his midday dose of insulin. His current symptoms include erythema and swelling of his right second toe which he first noted 3 days ago. Although he tried to relate his current symptoms as beginning about a month ago when he had flulike symptoms of muscle aches and fever and swollen lymph nodes. He p resented to the emergency department yesterday because of concerns of a possible infection in the toe. He has had previous infection in his toes resulting in a amputation of the distal phalanx of his right great toe. He is also had cellulitis of his left great toe that led to sloughing of the skin and exposure of the bone which he debrided himself in the past. Yesterday he presented to the emergency department where work-up included routine blood work and an x-ray of his right foot. X-ray of the right foot showed cortical erosion of the second digit distal tuft suspicious for osteomyelitis. There is also cortical irregularity along the surgical margin on the right first digit. Labs include elevated lactate of 2.6 and a CRP of 6.39 although his CBC showed a normal white cell count of 6000. He was advised to be admitted to the hospital for parenteral antibiotics yesterday along with an surgical consultation however he declined admission because he had his grandson for the weekend and need to make arrangements for his grandson's father to pick him up. He was prescribed Augmentin and clindamycin. He now re-presents to the emergency department for admission. Repeat labs were done today including a repeat CBC which again shows a normal leukocyte count of 5700 with no leftward shift. He has a stable chronic anemia with a hemoglobin of 13.3 g. Repeat chemistry panel shows an elevated BUN of 24 with a normal creatinine 1.18 and a glucose of 347. Blood lactate is down to 1 .8 LFTs are normal. Blood cultures were obtained yesterday. Per my discussion with CHUCHO Gamboa, patient was started on vancomycin and Zosyn while in the emergency department. Initially I was going to admit him to the medical/surgical floor but chose to put him in the ICU for an insulin drip so we can quickly get his glucose under control. 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 DOS: 01/15/19 Family History (Updated 12/20/19 @ 17:41 by Flaco Perdue) Brother Heart disease Father Congestive heart failure Mother Congestive heart failure Social History Smoking/Tobacco Use Status: Current every day Tobacco Type: cigars Alcohol Intake: former Drug use: Current Sobriety Substance use type: former substance user Do you feel safe at home: Yes Do you feel safe in your relationship?: Yes Meds Home Medications and Allergies Home Medications Medication Instructions Recorded Confirmed Type clonazepam 1 mg PO DAILY PRN PRN 04/07/13 12/19/19 History gabapentin 600 mg PO QID 04/07/13 12/19/19 History levothyroxine 112 mcg PO DAILY 04/07/13 12/19/19 History lisinopril 20 mg PO DAILY 04/07/13 12/19/19 History methadone 225 mg PO DAILY 04/07/13 12/19/19 History metformin 500 mg tablet,extended 1,500 mg PO DAILY 01/15/19 12/19/19 History release 24 hr amoxicillin-pot clavulanate 1 tab PO BID #14 tab 12/19/19 Rx [Augmentin] clindamycin HCl 300 mg PO Q6H 10 Days #40 cap 12/19/19 Rx Allergies Allergy/AdvReac Type Severity Reaction Status Date / Time codeine AdvReac itching Unverified 12/19/19 19:15 and bloutchy naloxone HCl [From Narcan] AdvReac Unverified 12/19/19 19:15 pentazocine lactate AdvReac makes me Unverified 12/19/19 19:15 [From Erica] deathly ill Narcotic AdvReac H/O drug Uncoded 12/19/19 19:15 abuse narcotic antagonists AdvReac Uncoded 12/19/19 19:15 Exam Narrative Exam Narrative: Middle-aged male who appears older than his stated age alert and oriented person place time and circumstance. HEENT is remarkable for upper dentures. Left ear canal is obscured by excess cerumen right ear canal is normal. Nares are normal. Oropharynx without exudate. Neck supple without JVD. Normal carotid pulses. No thyromegaly. No lymphadenopathy. Lungs are clear to auscultation. Heart is regular rate and rhythm without murmur rub or gallop. Abdomen is soft with normoactive bowel sounds nontender. No palpable masses and no bruits. Lower extremities reveal loss of hair over the feet and ankles and shins. Left great toe has a dried ulcer over the tip of the toe with no purulent discharge. Right great toe is status post distal phalanx amputation. There is thickened eschar on the end of the right great toe. Second toe is deformed and a varus deformity and is swollen and erythematous from the tip of the toe to the second MTP joint. Both feet have normal dorsalis pedis and posterior tibialis pulses. He has normal popliteal and femoral pulses. Neurologic exam reveals no focal cranial nerve abnormalities but he has markedly diminished sensation over the dorsal and volar surfaces of his feet. He can feel me touching his feet but cannot discriminate two-point sensation or light touch. Results Labs Result diagrams: 12/20/19 14:25 12/20/19 14:25 Labs: Laboratory Results - last 24 hr 12/20/19 12/20/19 12/20/19 14:25 14:25 14:25 WBC 5.71 RBC 4.39 L Hgb 13.3 L Hct 39.9 L MCV 90.9 MCH 30.3 MCHC 33.3 RDW 12.5 Plt Count 297 MPV 10.0 Immature Gran % 0.2 Neutrophils % 62.3 Lymphocytes % 25.0 Monocytes % 7.9 Eosinophils % 3.9 Basophils % 0.7 Absolute Neutrophils 3.56 Absolute Lymphocytes 1.43 Absolute Monocytes 0.45 Absolute Eosinophils 0.22 Absolute Basophils 0.04 Sodium 137 Potassium 4.7 Chloride 99 Carbon Dioxide 28.9 Anion Gap 9.1 BUN 24 H Creatinine 1.18 Estimated GFR/1.73 m2 >= 60.00 Glucose 347 H D Lactate 1.8 H Calcium 8.8 Total Bilirubin 0.6 AST 27 ALT 27 Alkaline Phosphatase 114 Total Protein 8.1 Albumin 3.4 Last Vital Signs Temp 36.6 C 12/20/19 15:50 Pulse 79 12/20/19 15:50 Resp 16 12/20/19 15:50 BP 128/66 12/20/19 15:50 Pulse Ox 96 12/20/19 15:50
[2019-12-20 17:12] LABS: Procalcitonin < 0.1 ng/mL
[2019-12-20] MEDS: INSULIN REGULAR IN 0.9 % NACL 100 UNIT/100 ML BAG 9 UNIT IV (17:47)
--- NOTE | 2019-12-20 18:04 | DI.RAD_ITS ---
EXAM: XR TOE LT GREAT INDICATION: Diabetic toe ulcer, rule out osteomyelitis. COMPARISON: XR TOE RT SECOND from 12/19/2019 TECHNIQUE: 2D digital imaging was performed. FINDINGS: There is a soft tissue wound distally. There is some erosion of the distal phalanx of the tuft consi stent with osteomyelitis. There is no evidence of fracture or foreign body. IMPRESSION: Osteomyelitis of the tuft of the distal phalanx of the great toe.
[2019-12-20 18:10] LABS: Lactate 1.9 mmol/L (0.6-1.4)
[2019-12-20] MEDS: Normal Saline 1,000 ML 85 ML IV (18:50)
--- NOTE | 2019-12-20 19:33 | DI.VRAD_ITS ---
PROCEDURE INFORMATION: Exam: XR Left Toe(s) Exam date and time: 12/20/2019 6:08 PM Age: 69 years old Clinical indication: Other: Diabetic toe ulcer rule out osteomyelitis TECHNIQUE: Imaging protocol: XR Left toes. Views: Minimum 2 views. COMPARISON: CR RIGHT GREAT TOE 06/01/2017 15:47 FINDINGS: Bones/joints: The exam is of the left toe. There are comparisons of the left toe from June 2017. Two of the images are labeled left and 1 of the images is labeled incorrectly as the right toe right. There are erosive changes of the left 1st distal tuft consistent with osteomyelitis. There is degenerative changes of the IP joint. Soft tissues: There is soft tissue swelling and air in the soft tissues. IMPRESSION: Osteomyelitis of the left 1st distal tuft. Dictated and Authenticated by: Ruby Bowman MD. Ordering:TETO Sam MD
[2019-12-20] MEDS: Gabapentin 600 MG TAB PO (20:20)
[2019-12-21] VITALS (102 sets, daily range): BP systolic 103–148; BP diastolic 52–105; PULSE 60–96; RESP 6–24; TEMP 36.1–36.6; O2SAT 86–99
[2019-12-21 06:39] LABS: Lactate 0.8 mmol/L (0.6-1.4)
[2019-12-21 06:46] LABS: Abs Immature Grans 0.01 k/cumm (0.0-0.09); Absolute Basophil Count 0.05 k/cumm (0.0-0.2); Absolute Eosinophil Count 0.35 k/cumm (0.0-0.7); Absolute Lymphocyte Count 1.63 k/cumm (1.2-3.4); Absolute Monocyte Count 0.55 k/cumm (0.11-0.7); Absolute Neutrophil Count 1.86 k/cumm (1.2-6.7); Basophils % 1.1; Eosinophils % 7.9; HGB 11.8 g/dL (13.5-17.5); Immature Grans % 0.2 %; Lymphocytes % 36.6; Mean Corp. HGB Concentration 32.8 g/dL (32.0-36.0); Mean Corpuscular Hemoglobin 29.9 pg (27.0-33.0); Mean Corpuscular Volume 91.4 fL (80-95); Mean Platelet Volume 9.9 fL (8.0-11.0); Monocytes % 12.4; Neutrophils % 41.8; Platelet Count 274 x1000/uL (130-400); RBC 3.94 m/cumm (4.50-6.00); RBC Distribution Width 12.4 % (11.8-14.1); White Blood Cell Count 4.45 k/cumm (4.4-10.8)
[2019-12-21] MEDS: VANCOMYCIN 1,500 MG in Normal Saline 250 ML 167 MG IVPB (06:46)
[2019-12-21] MEDS: Normal Saline Flush 10 ML SYR IVP ×2 (06:48→08:45)
[2019-12-21] MEDS: Levothyroxine 112 MCG TAB PO (06:49)
[2019-12-21 07:05] LABS: Anion Gap 4.8 mmol/L (3-11); BUN 18 mg/dL (7-18); CO2 31.2 mmol/L (21.0-32.0); CREATININE 0.97 mg/dL (0.70-1.30); Calcium 8.3 mg/dL (8.5-10.1); Chloride 107 mmol/L (98-107); Glucose 101 mg/dL (74-106); Magnesium 2.1 mg/dL (1.8-2.4); Potassium 4.4 mmol/L (3.5-5.1); Sodium 143 mmol/L (136-145)
[2019-12-21 07:29] LABS: Calculated LDL 86 mg/dL; Cholesterol 137 mg/dL (<200); HDL Cholesterol 24 mg/dL (40-60); Triglyceride 137 mg/dL (<150)
[2019-12-21] MEDS: Lisinopril 20 MG TAB PO (07:43)
[2019-12-21] MEDS: Gabapentin 600 MG TAB PO ×4 (07:43→20:38)
[2019-12-21] MEDS: PIPERACILLIN/TAZO 4.5 GM in Normal Saline 100 ML IVPB ×2 (08:05→16:29)
--- NOTE | 2019-12-21 08:23 | INITIAL_ITS ---
- If Service Date Differs Date of service: 12/21/19 Time of Service: 08:23 Care Management Initial Assess REASON FOR HOSPITALIZATION:: Osteomyelitis PAST MEDICAL HISTORY/PAST SURGICAL HISTORY:: Anxiety, diabetes, history of amputation of the great toe, hypertension, substance abuse, surgical history includes appendectomy, inguinal hernia repair, post amputation of the right great toe. PREVIOUS FUNCTIONAL STATUS/SOCIAL/FAMILY SUPPORTS:: Darwin lives at home he has a dog Erin, two children a son and a daughter that live close by and a grandson that lives with him. He lives in [place], [place] he is indepedent with ADL's and transportation. Darwin has attended [facility] for history of substance abuse for 20 years. CURRENT FUNCTIONAL STATUS:: Darwin is alert and engaged with CM during assessment. Darwin is able to share that he is able to access primary care however he has had multiple changes in his provider over the last few years. He states he feels his DM would be under better control if his care was consistant. Darwin reports that he often misses his dose of morning insulin which he takes twice a day. He reports he does not check his blood sugar due to the pain in his fingertips. He states he has been waiting for a PA to go through for a continous glucose monitoring. ADVANCE DIRECTIVES:: None on file - offered forms and assistance in completion, he would like to complete them while he is here. Has patient been provided with information about the portal?: Yes Did the patient sign up for the portal?: No CODE STATUS:: Full Code INSURANCE COVERAGE / FINANCIAL ISSUES:: Medicare, Medicaid CURRENT HOME/COMMUNITY SERVICES/EQUIPMENT:: [facility] for substance abuse treatment. PRIMARY CARE PHYSICIAN:: Galen Rivera NP POTENTIAL DISCHARGE NEEDS:: Follow-up appointment scheduled prior to discharge with primary care provider PATIENT/FAMILY EDUCATION NEEDS:: Discharge education, limitations, follow-up plan of care, asked me 3 and self-management ANTICIPATED BARRIERS TO DISCHARGE:: None identified TRANSPORTATION:: Via private car with family at time of discharge PLAN:: Darwin will be discharged home when medically ready per provider. He has contacted the [facility] to notify of hospital stay. Darwin is due to rock picker his monthly supply of Methadone on Saturday. Depending oral vs IV abx Darwin would like to return home and have Abx given at home. CM will need to send in prescription to [facility] to determine coverage. He would be able to have a PICC line placed on Saturday here at [facility]. He will need new home health services for PICC line care and IV abx adminstration. CM will continue to provide support discharge planning and disposition.
--- NOTE | 2019-12-21 09:23 | PGE_ITS ---
Date of Service Date of service: 12/21/19 Time of Service: 09:23 Assessment and Plan Assessment and plan (1) Osteomyelitis of second toe of left foot: Status: Acute Assessment and plan: Continue vancomycin with dosing per pharmacist's recommendations. Continue Zosyn at higher dose of 4.5 g IV slow infusion every 8 hours. This higher dose of Zosyn provides adequate coverage for Pseudomonas. 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 Glucose this morning was 109. Throughout the rest the day he has been in the low 200s. I have since started him on basal bolus insulin. He will receive 1 unit per 10 g of carbohydrates with meals and snacks. And I have adjusted his sliding scale to be moderate dose coverage I have also resumed his Lantus (3) Hypertension: Status: Chronic Assessment and plan: Reasonably well-controlled on lisinopril 30 mg daily. We corrected his home medication list which previously had said 20 mg daily. (4) Substance abuse in remission: Status: Acute Assessment and plan: Patient brought in his own methadone dose. Apparently he gets his methadone treatment from a clinic in [place] to which he drives monthly and gets an entire month's worth at a time. 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 Subjective Subjective Interval history since last seen: No fevers overnight. Patient was weaned off the insulin drip. I am converting him over to basal bolus insulin. We are awaiting Dr. Baires's consult regarding the patient's osteomyelitis. Patient remains on Zosyn and vancomycin. Per my discussion with Dr. Baires last night he did not feel the need to get an MRI of the foot Exam Narrative Exam Narrative: Right second toe was wrapped up in gauze and tape. Apparently the patient insisted on bandaging his toe up himself last night. I explained to the patient that he should not be putting tape over the skin. I remove the bandage and examined the toe the area of erythema at the MTP joint of the second toe looks slightly better but the rest of the toe still looks edematous and erythematous. Patient has indicated that he wants to talk with Dr. Baires before having surgery. I told Dr. Baires's and surgery all day and will be up to see him in between cases. Objective Objective Clinical Data: Abnormal lab results 12/20/19 12/20/19 12/20/19 Range/Units 14:25 14:25 14:25 RBC 4.39 L (4.50-6.00) m/cumm Hgb 13.3 L (13.5-17.5) g/dL Hct 39.9 L (40.0-50.0) % BUN 24 H (7-18) mg/dL Glucose 347 H D (74-106) mg/dL Hemoglobin A1c (3.8-5.6) % Lactate 1.8 H (0.6-1.4) mmol/L Calcium (8.5-10.1) mg/dL HDL Cholesterol (40-60) mg/dL 12/20/19 12/21/19 12/21/19 Range/Units 18:02 06:30 06:30 RBC 3.94 L (4.50-6.00) m/cumm Hgb 11.8 L (13.5-17.5) g/dL Hct 36.0 L (40.0-50.0) % BUN (7-18) mg/dL Glucose (74-106) mg/dL Hemoglobin A1c (3.8-5.6) % Lactate 1.9 H (0.6-1.4) mmol/L Calcium 8.3 L (8.5-10.1) mg/dL HDL Cholesterol 24 L (40-60) mg/dL 12/21/19 Range/Units 06:30 RBC (4.50-6.00) m/cumm Hgb (13.5-17.5) g/dL Hct (40.0-50.0) % BUN (7-18) mg/dL Glucose (74-106) mg/dL Hemoglobin A1c 9.0 H (3.8-5.6) % Lactate (0.6-1.4) mmol/L Calcium (8.5-10.1) mg/dL HDL Cholesterol (40-60) mg/dL Vital Signs Temperature 36.1 C L 12/21/19 07:58 Temperature Source Tympanic 12/21/19 07:58 Pulse 81 12/21/19 08:01 Pulse Rhythm Regular 12/20/19 16:03 Pulse 85 12/21/19 08:01 Respiratory Rate 15 12/21/19 08:01 Respiratory Effort Non-Labored 12/21/19 07:58 Respiratory Depth Normal 12/21/19 07:58 Respiratory Pattern Normal 12/21/19 07:58 Blood Pressure 125/77 12/21/19 08:01 Blood Pressure Mean 81 12/21/19 08:01 Blood Pressure Position Sitting 12/21/19 07:58 Pulse Oximetry 99 12/21/19 08:12 Oxygen Delivery Method Room Air 12/21/19 08:12 Oxygen Flow Rate 0 12/21/19 08:12 Pain Level 3 12/20/19 15:50 Intake & Output 12/20/19 12/20/19 12/21/19 11:59 23:59 11:59 Intake Total 1700.95 / 1700.95 840 / 840 Output Total 500 / 500 1075 / 1075 Balance 1200.95 / 1200.95 -235 / -235 Weight 95.254 kg 95.6 kg Intake: IV 1360.95 / 1360.95 600 / 600 Oral 340 / 340 240 / 240 Output: Urine 500 / 500 1075 / 1075 Other: Urine Color Light Desiree Yellow Urine Appearance Clear Clear Urine Odor Strong Strong Comment Patient stands to void in urinal. Voiding Methods Bedside Commode Urinal Laboratory Results WBC 4.45 k/cumm (4.4-10.8) 12/21/19 06:30 RBC 3.94 m/cumm (4.50-6.00) L 12/21/19 06:30 Hgb 11.8 g/dL (13.5-17.5) L 12/21/19 06:30 Hct 36.0 % (40.0-50.0) L 12/21/19 06:30 MCV 91.4 fL (80-95) 12/21/19 06:30 MCH 29.9 pg (27.0-33.0) 12/21/19 06:30 MCHC 32.8 g/dL (32.0-36.0) 12/21/19 06:30 RDW 12.4 % (11.8-14.1) 12/21/19 06:30 Plt Count 274 x1000/uL (130-400) 12/21/19 06:30 MPV 9.9 fL (8.0-11.0) 12/21/19 06:30 Immature Gran % 0.2 % 12/21/19 06:30 Neutrophils % 41.8 12/21/19 06:30 Lymphocytes % 36.6 12/21/19 06:30 Monocytes % 12.4 12/21/19 06:30 Eosinophils % 7.9 12/21/19 06:30 Basophils % 1.1 12/21/19 06:30 Absolute Neutrophils 1.86 k/cumm (1.2-6.7) 12/21/19 06:30 Absolute Lymphocytes 1.63 k/cumm (1.2-3.4) 12/21/19 06:30 Absolute Monocytes 0.55 k/cumm (0.11-0.7) 12/21/19 06:30 Absolute Eosinophils 0.35 k/cumm (0.0-0.7) 12/21/19 06:30 Absolute Basophils 0.05 k/cumm (0.0-0.2) 12/21/19 06:30 Sodium 143 mmol/L (136-145) 12/21/19 06:30 Potassium 4.4 mmol/L (3.5-5.1) 12/21/19 06:30 Chloride 107 mmol/L (98-107) 12/21/19 06:30 Carbon Dioxide 31.2 mmol/L (21.0-32.0) 12/21/19 06:30 Anion Gap 4.8 mmol/L (3-11) 12/21/19 06:30 BUN 18 mg/dL (7-18) D 12/21/19 06:30 Creatinine 0.97 mg/dL (0.70-1.30) 12/21/19 06:30 Estimated GFR/1.73 m2 >= 60.00 (mL/min/1.73m2) 12/21/19 06:30 Glucose 101 mg/dL (74-106) D 12/21/19 06:30 Hemoglobin A1c 9.0 % (3.8-5.6) H 12/21/19 06:30 Lactate 0.8 mmol/L (0.6-1.4) 12/21/19 06:30 Calcium 8.3 mg/dL (8.5-10.1) L 12/21/19 06:30 Magnesium 2.1 mg/dL (1.8-2.4) 12/21/19 06:30 Total Bilirubin 0.6 mg/dL (0.2-1.0) 12/20/19 14:25 AST 27 U/L (15-37) 12/20/19 14:25 ALT 27 U/L (16-63) 12/20/19 14:25 Alkaline Phosphatase 114 U/L (46-116) 12/20/19 14:25 Total Protein 8.1 g/dL (6.4-8.2) 12/20/19 14:25 Albumin 3.4 g/dL (3.4-5.0) 12/20/19 14:25 Triglycerides 137 mg/dL (<150) 12/21/19 06:30 Total Cholesterol 137 mg/dL (<200) 12/21/19 06:30 LDL Cholesterol, Calc 86 mg/dL 12/21/19 06:30 HDL Cholesterol 24 mg/dL (40-60) L 12/21/19 06:30 Procalcitonin < 0.1 ng/mL 12/20/19 14:25
[2019-12-21] MEDS: Insulin Aspart 300 UNITS/3 ML PEN SC ×7 (11:00→22:17)
[2019-12-21] MEDS: Normal Saline 1,000 ML 85 ML IV (13:56)
--- NOTE | 2019-12-21 14:08 | PHARADMIT ---
Admission Pharmacy Clinical Review ostemyelitis Code Status Full Code Current Weight 95.6 kg Renally Cleared and Narrow Therapeutic Index Meds Crcl ~88 mL/min current meds okay QTc Value / Action Taken n/a BP Control, Fever BP 133/69 afebrile Electrolytes reviewed within normal limits DVT Prophylaxis enoxaparin Opiate Usage / Scheduled Bowel Regimen Ordered lynne/prn Plt/SCr for Heparin / Enoxaparin plt 274 SCr 0.97 INR for Warfarin n/a H/H stable, WBC/Bands h/h 11.8/36.0 WBC 4.45 Antibiotic appropriateness vanco and zosyn Cultures and Sensitivities none Surgical ABX d/c within 24 hr n/a DM control / Insulin Dosing Bg 101 scheduled aspart and glargine, sliding scale aspart Heart Failure (Check EF%) (LEX's, B-Block, Diuretics) lisinopril, IV to PO Switch n/a Home Meds Reviewed multiple [employer] depressants: methadone, clonazepam, gabapentin Home Meds Not Ordered clonazepam, metformin Comments -pts own methadone ordered, pt wanted to take his own med. only had 2 doses with him. then will use pharmacy stock if pt is still here -nursing asked if we had sugar free methadone, provider did not feel that it was necessary to look into this at the moment -pts home gabapentin order makes it seem like may only be TID, but wanted to remain with 600 mg QID
[2019-12-21] MEDS: clonazePAM 1 MG TAB PO (15:33)
--- NOTE | 2019-12-21 16:30 | W.ORTHOCONSU ---
Date of service: 12/21/19 Time of Service: 16:30 History of Present Illness History of Present Illness Chief Complaint: Infection left second toe and possibly right great toe Narrative: I was asked by Dr. Perdue to consult on Mr. Caballero about possible osteomyelitis of the left second toe. He also was getting some drainage from the right great toe. I had performed a an amputation of the distal phalanx of the great toe for osteomyelitis approximately year ago. He had healed well. Apparently, he said he thought he saw some exposed bone and he cut it. He is great toe starting to drain and he came to the emergency room when his second toe on the left foot became erythematous swollen and draining from the tip. X-rays obtained were read as showing osteomyelitis of the distal phalanx of the left second toe. But only questioned the possibility of osteomyelitis of the right great toe. Patient was admitted and placed on IV antibiotics yesterday. I was asked to consult today for possible toe amputation. Assessment and Plan Assessment and plan (1) Osteomyelitis of second toe of left foot: Status: Acute Assessment and plan: Assessment: He does have osteomyelitis of the second toe of his left foot. However, he had an excellent and rapid response to the IV antibiotics given so far. If he continues to improve I recommend that he be switched to oral antibiotics and then tried on a 6-week course of oral antibiotics before recommending amputation. I do not see evidence of any active infection in his right great toe. I would just leave it uncovered and watch it. Plan: I will check him tomorrow to check for continued progress with his left second toe. I tell Edward that I do not see any urgency about amputation surgery for him at this time. 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 I remove the dressings of the great toe. There is no drainage seen on the dressings. As I inspect the great toe there were no sinus tracts there is no erythema no induration no unusual swelling. He has a really thickened skin over the tip of the toe but the bone is good coverage. I do not see evidence of osteomyelitis of the great toe. The left second toe is swollen erythematous with some mild drainage from the tip of the toe. The x-ray shows some bony resorption of the distal phalanx of the left second toe consistent with osteomyelitis. I cannot express any fluid with palpating over the toe. I discussed with the patient he feels that it looks better after just 24 hours antibiotics. I do not see any evidence of osteomyelitis on the x-rays of the great toe. Although she has some postsurgical changes from his previous amputation. Results Last Vital Signs Temp 36.1 C L 12/21/19 07:58 Pulse 69 12/21/19 12:01 Resp 11 L 12/21/19 12:01 BP 133/69 12/21/19 12:01 Pulse Ox 99 12/21/19 08:12 Labs Result diagrams: 12/21/19 06:30 12/21/19 06:30 Labs: Laboratory Results - last 24 hr 12/20/19 12/20/19 12/21/19 14:25 18:02 06:30 WBC RBC Hgb Hct MCV MCH MCHC RDW Plt Count MPV Immature Gran % Neutrophils % Lymphocytes % Monocytes % Eosinophils % Basophils % Absolute Neutrophils Absolute Lymphocytes Absolute Monocytes Absolute Eosinophils Absolute Basophils Sodium 143 Potassium 4.4 Chloride 107 Carbon Dioxide 31.2 Anion Gap 4.8 BUN 18 D Creatinine 0.97 Estimated GFR/1.73 m2 >= 60.00 Glucose 101 D Hemoglobin A1c Lactate 1.9 H Calcium 8.3 L Magnesium 2.1 Triglycerides 137 Total Cholesterol 137 LDL Cholesterol, Calc 86 HDL Cholesterol 24 L Procalcitonin < 0.1 12/21/19 12/21/19 12/21/19 06:30 06:30 06:30 WBC 4.45 RBC 3.94 L Hgb 11.8 L Hct 36.0 L MCV 91.4 MCH 29.9 MCHC 32.8 RDW 12.4 Plt Count 274 MPV 9.9 Immature Gran % 0.2 Neutrophils % 41.8 Lymphocytes % 36.6 Monocytes % 12.4 Eosinophils % 7.9 Basophils % 1.1 Absolute Neutrophils 1.86 Absolute Lymphocytes 1.63 Absolute Monocytes 0.55 Absolute Eosinophils 0.35 Absolute Basophils 0.05 Sodium Potassium Chloride Carbon Dioxide Anion Gap BUN Creatinine Estimated GFR/1.73 m2 Glucose Hemoglobin A1c 9.0 H Lactate 0.8 Calcium Magnesium Triglycerides Total Cholesterol LDL Cholesterol, Calc HDL Cholesterol Procalcitonin
[2019-12-21] MEDS: Enoxaparin 40 MG/0.4 ML SYR SC (20:38)
[2019-12-21] MEDS: Lovastatin 20 MG TAB 10 MG PO (20:39)
[2019-12-21] MEDS: Insulin Glargine 300 UNITS/3 ML PEN 32 UNITS SC (22:25)
[2019-12-22] VITALS (46 sets, daily range): BP systolic 116–145; BP diastolic 65–77; PULSE 63–93; RESP 7–21; TEMP 36.3–36.8; O2SAT 92–96
[2019-12-22] MEDS: PIPERACILLIN/TAZO 4.5 GM in Normal Saline 100 ML IVPB ×2 (00:12→08:23)
[2019-12-22] MEDS: Normal Saline 1,000 ML 85 ML IV (03:00)
[2019-12-22 06:30] LABS: Abs Immature Grans 0.01 k/cumm (0.0-0.09); Absolute Basophil Count 0.05 k/cumm (0.0-0.2); Absolute Eosinophil Count 0.27 k/cumm (0.0-0.7); Absolute Lymphocyte Count 1.29 k/cumm (1.2-3.4); Absolute Monocyte Count 0.42 k/cumm (0.11-0.7); Absolute Neutrophil Count 1.36 k/cumm (1.2-6.7); Basophils % 1.5; Eosinophils % 7.9; HGB 11.6 g/dL (13.5-17.5); Immature Grans % 0.3 %; Lymphocytes % 37.9; Mean Corp. HGB Concentration 33.1 g/dL (32.0-36.0); Mean Corpuscular Hemoglobin 30.2 pg (27.0-33.0); Mean Corpuscular Volume 91.1 fL (80-95); Mean Platelet Volume 9.4 fL (8.0-11.0); Monocytes % 12.4; Platelet Count 254 x1000/uL (130-400); RBC 3.84 m/cumm (4.50-6.00)
[2019-12-22 06:49] LABS: Anion Gap 1.4 mmol/L (3-11); BUN 15 mg/dL (7-18); CO2 31.6 mmol/L (21.0-32.0); CREATININE 0.92 mg/dL (0.70-1.30); Calcium 8.2 mg/dL (8.5-10.1); Chloride 107 mmol/L (98-107); Glucose 90 mg/dL (74-106); Sodium 140 mmol/L (136-145)
[2019-12-22] MEDS: Lisinopril 10 MG TAB 30 MG PO (08:20)
[2019-12-22] MEDS: Gabapentin 600 MG TAB PO ×2 (08:20→12:07)
[2019-12-22 08:22] LABS: ESR 59 mm/hr (1-20)
[2019-12-22] MEDS: Insulin Glargine 300 UNITS/3 ML PEN 16 UNITS SC (08:49)
[2019-12-22] MEDS: Insulin Aspart 300 UNITS/3 ML PEN SC ×3 (08:50→12:54)
--- NOTE | 2019-12-22 11:18 | PDOC.CMDIS ---
- If Service Date Differs Date of service: 12/22/19 Time of Service: 11:18 LACE Index Scoring Tool - Questions: Length of Stay (in days): 3 Acuity (Admit via E.D.?): Yes Comorbidities: Diabetes w/o Complication E.D. Visits: 2 - Answers: Total Score: 9 Risk of Readmission: Low Risk Care Management Discharge Reason for Hospitalization: Osteomyelitis Discharge Plan: Darwin is being discharged home today and will follow up with primary care provider and continued on oral abx. He states he feels ready to be discharged home and will drive himself. He was able to compelte his advance directives during his stay. Patient/Family Education Needs: Discharge education, limitations and follow up plan of care including ask me three and self management.
--- NOTE | 2019-12-22 14:33 | W.PM.PROGNOT ---
Date of Service Date of service: 12/22/19 Time of Service: 14:33 Assessment and Plan Assessment and plan (1) Osteomyelitis of second toe of left foot: Status: Acute Assessment and plan: Assessment: Osteomyelitis left second toe. I think this would be best treated with oral antibiotics antibiotics for now. He is going to be discharged home tonight according to Dr. Shelby. I spoke with Dr. Parra about continuing on Keflex for this for 6 weeks. I would like to follow-up in 2 weeks in my office. I do not feel any treatment is needed for the great toe on the right. Plan: Discharge home later today. Will be on oral antibiotics, Keflex, for 6 weeks for osteomyelitis of the left second toe. He will follow-up with me in 2 weeks in my office. Subjective Subjective Patient reports: no new complaints Exam Narrative Exam Narrative: No drainage from right great toe. No erythema or swelling that would suggest an infection the right great toe. Left second toe I think is less swollen today less erythematous. Objective Objective Clinical Data: Abnormal lab results 12/22/19 12/22/19 Range/Units 06:08 06:08 WBC 3.40 L (4.4-10.8) k/cumm RBC 3.84 L (4.50-6.00) m/cumm Hgb 11.6 L (13.5-17.5) g/dL Hct 35.0 L (40.0-50.0) % ESR 59 H (1-20) mm/hr Anion Gap 1.4 L (3-11) mmol/L Calcium 8.2 L (8.5-10.1) mg/dL C-Reactive Protein 1.70 H (0.0-0.3) mg/dL Vital Signs Temperature 36.3 C L 12/22/19 12:15 Temperature Source Temporal Artery Scan 12/22/19 12:15 Pulse 81 12/22/19 12:15 Pulse Rhythm Regular 12/22/19 09:04 Pulse 83 12/22/19 08:00 Respiratory Rate 18 12/22/19 08:00 Respiratory Effort Non-Labored 12/22/19 09:04 Respiratory Depth Normal 12/22/19 09:04 Respiratory Pattern Normal 12/22/19 09:04 Blood Pressure 144/77 H 12/22/19 12:15 Blood Pressure Mean 92 12/22/19 12:15 Blood Pressure Position Sitting 12/21/19 07:58 Pulse Oximetry 96 12/22/19 12:15 Oxygen Delivery Method Room Air 12/22/19 12:15 Oxygen Flow Rate 0 12/22/19 12:15 Pain Level 0 12/22/19 12:15 Intake & Output 12/21/19 12/22/19 12/22/19 23:59 11:59 23:59 Intake Total 1670 / 2760 1590 / 3014.083 1424.083 / 3014.083 Output Total 2099 Balance -430 / -415 -385 / 0737.758 7960.083 / 1039.083 Weight 98.3 kg Intake: IV 950 / 1800 1350 / 2324.083 974.083 / 2324.083 Oral 720 / 960 240 / 690 450 / 690 Output: Urine 2099 Other: Urine Color Pale Yellow Yellow Urine Appearance Clear Clear Urine Odor None None Stool Size Copious Voiding Methods Urinal Urinal Laboratory Results WBC 3.40 k/cumm (4.4-10.8) L 12/22/19 06:08 RBC 3.84 m/cumm (4.50-6.00) L 12/22/19 06:08 Hgb 11.6 g/dL (13.5-17.5) L 12/22/19 06:08 Hct 35.0 % (40.0-50.0) L 12/22/19 06:08 MCV 91.1 fL (80-95) 12/22/19 06:08 MCH 30.2 pg (27.0-33.0) 12/22/19 06:08 MCHC 33.1 g/dL (32.0-36.0) 12/22/19 06:08 RDW 12.0 % (11.8-14.1) 12/22/19 06:08 Plt Count 254 x1000/uL (130-400) 12/22/19 06:08 MPV 9.4 fL (8.0-11.0) 12/22/19 06:08 Immature Gran % 0.3 % 12/22/19 06:08 Neutrophils % 40.0 12/22/19 06:08 Lymphocytes % 37.9 12/22/19 06:08 Monocytes % 12.4 12/22/19 06:08 Eosinophils % 7.9 12/22/19 06:08 Basophils % 1.5 12/22/19 06:08 Absolute Neutrophils 1.36 k/cumm (1.2-6.7) 12/22/19 06:08 Absolute Lymphocytes 1.29 k/cumm (1.2-3.4) 12/22/19 06:08 Absolute Monocytes 0.42 k/cumm (0.11-0.7) 12/22/19 06:08 Absolute Eosinophils 0.27 k/cumm (0.0-0.7) 12/22/19 06:08 Absolute Basophils 0.05 k/cumm (0.0-0.2) 12/22/19 06:08 ESR 59 mm/hr (1-20) H 12/22/19 06:08 Sodium 140 mmol/L (136-145) 12/22/19 06:08 Potassium 4.0 mmol/L (3.5-5.1) 12/22/19 06:08 Chloride 107 mmol/L (98-107) 12/22/19 06:08 Carbon Dioxide 31.6 mmol/L (21.0-32.0) 12/22/19 06:08 Anion Gap 1.4 mmol/L (3-11) L 12/22/19 06:08 BUN 15 mg/dL (7-18) 12/22/19 06:08 Creatinine 0.92 mg/dL (0.70-1.30) 12/22/19 06:08 Estimated GFR/1.73 m2 >= 60.00 (mL/min/1.73m2) 12/22/19 06:08 Glucose 90 mg/dL (74-106) 12/22/19 06:08 Hemoglobin A1c 9.0 % (3.8-5.6) H 12/21/19 06:30 Lactate 0.8 mmol/L (0.6-1.4) 12/21/19 06:30 Calcium 8.2 mg/dL (8.5-10.1) L 12/22/19 06:08 Magnesium 2.1 mg/dL (1.8-2.4) 12/21/19 06:30 Total Bilirubin 0.6 mg/dL (0.2-1.0) 12/20/19 14:25 AST 27 U/L (15-37) 12/20/19 14:25 ALT 27 U/L (16-63) 12/20/19 14:25 Alkaline Phosphatase 114 U/L (46-116) 12/20/19 14:25 C-Reactive Protein 1.70 mg/dL (0.0-0.3) H 12/22/19 06:08 Total Protein 8.1 g/dL (6.4-8.2) 12/20/19 14:25 Albumin 3.4 g/dL (3.4-5.0) 12/20/19 14:25 Triglycerides 137 mg/dL (<150) 12/21/19 06:30 Total Cholesterol 137 mg/dL (<200) 12/21/19 06:30 LDL Cholesterol, Calc 86 mg/dL 12/21/19 06:30 HDL Cholesterol 24 mg/dL (40-60) L 12/21/19 06:30 Procalcitonin < 0.1 ng/mL 12/20/19 14:25 Vancomycin Trough Cancelled 12/22/19 11:00
--- NOTE | 2019-12-22 15:03 | W.NUTCONSULT ---
Date of service: 12/22/19 Time of Service: 15:03 Nutritional Consult ASSESSMENT: 69 year old male admitted with osteomyelitis of second toe on left foot with uncontrolled DM, hx of substance abuse. BMI wnl for age. Following Diabetic diet with excellent intake. CDE following. Not considered at nutritional risk at this time. Time Spent in Nutritional Counseling and Treatment: 0 time spent face to face
--- NOTE | 2019-12-22 18:55 | DSE_ITS ---
Date of service: 12/22/19 Time of Service: 18:55 DS: Diagnosis Discharge Diagnosis (1) Osteomyelitis of second toe of left foot: Status: Acute Asessment and Plan: X-ray confirmed irregularity of the distal tuft of the second toe on the left. He was evaluated by Dr. Baires from orthopedics who felt this could be treated with p.o. antibiotics for 6 weeks. Plan is to discharge on Keflex 500 mg 4 times daily x6 weeks. Follow-up with Dr. Baires in 2 weeks. Discharge Plan Disposition Patient Disposition: HOME Condition: Improving Discharge Details Chief Complaint: Orthopedic Reason For Visit: OSTEOMYELITIS Admit Date/Time: 12/20/19 16:19 Admit Provider: Flaco Perdue Attending Provider: Flaco Perdue Primary Care Provider: Galen Rivera ED Provider: Rosita Hamilton Hospital Course Hospital Course: 69-year-old male presented on 12/20/2019 with erythema and swelling of the right second toe that he had noticed 3 days prior. He had presented to the emergency room 1 day prior but could not stay to be admitted. He was started on oral antibiotics. He represented 24 hours later with continued erythema and swelling. There was no change in his systemic symptoms. An x-ray confirmed osteomyelitis of the right second toe. CRP was elevated at 6.39. He is admitted to the ICU for an insulin infusion. Dr. Baires from orthopedics saw the patient and did not feel an amputation was warranted at this time. He recommended 6 weeks of oral antibiotics as an outpatient. His blood sugars came down nicely. His pain was well controlled on oral agents. He has empiric therapy with vancomycin and Zosyn was transitioned to p.o. Keflex. He is discharged to home with planned outpatient follow-up. Home Meds and New Rx's Prescriptions: New cephalexin 500 mg tablet 500 mg PO QID Qty: 180 RF: 0 Continued methadone 10 MG/ML concentrate 225 mg PO DAILY RF: 0 clonazepam 1 MG tablet 1 mg PO DAILY PRN PRNRF: 0 metformin 500 mg tablet extended release 24 hr 2,000 mg PO DAILY RF: 0 levothyroxine 137 mcg Tablet 137 mcg PO DAILY RF: 0 lovastatin 10 mg Tablet 10 mg PO HS RF: 0 gabapentin 800 mg Tablet 800 mg PO QID RF: 0 lisinopril 30 mg Tablet 30 mg PO DAILY RF: 0 Lantus Solostar U-100 Insulin 100 unit/mL (3 mL) Insulin Pen 16 unit SUBCUT QAM RF: 0 Lantus Solostar U-100 Insulin 100 unit/mL (3 mL) Insulin Pen 32 unit SUBCUT QPM RF: 0 Discharge Instructions Instructions: Osteomyelitis (DC) Stand Alone Forms: Nursing Discharge Form Referrals: Chente Baires MD [ [facility] STAFF PHYSICIAN] - 01/06/20 10:45 am (Followup appointment Jan 06, 2020 at 1045a.m.) Activity:: Activity as Tolerated Equipment/Supplies:: No Equipment Needed Diet:: Carb Counting Discharge Orders Discharge Orders: Discharge Order (Routine); Ordered 12/22/19 Ordered By: Ankit Parra Discharge Data Discharge Date/Time-TO BE ENTERED AT DEPARTURE: 12/22/19 14:45 DS: Summary Status at Discharge Functional status at discharge: independent ambulation Overall status at discharge: patient is back to baseline Mental Status: mental status grossly normal Speech and Movement: speech and movement normal Mood: congruent mood Affect: normal affect Exam Narrative Exam Narrative: Exam on the day of discharge was primarily the patient fully dressed sitting in the chair anxious to go home. Patient declined any further exam at this time. Dr. Baires had evaluated the foot wound earlier in the day. Psych Mental Status: mental status grossly normal Speech and Movement: speech and movement normal Mood: congruent mood Affect: normal affect DS: Data Vitals/I&O Vitals and I&O: Vital Signs Temperature 36.3 C L 12/22/19 12:15 Temperature Source Temporal Artery Scan 12/22/19 12:15 Pulse 81 12/22/19 12:15 Pulse Rhythm Regular 12/22/19 09:04 Pulse 83 12/22/19 08:00 Respiratory Rate 18 12/22/19 08:00 Respiratory Effort Non-Labored 12/22/19 09:04 Respiratory Depth Normal 12/22/19 09:04 Respiratory Pattern Normal 12/22/19 09:04 Blood Pressure 144/77 H 12/22/19 12:15 Blood Pressure Mean 92 12/22/19 12:15 Blood Pressure Position Sitting 12/21/19 07:58 Pulse Oximetry 96 12/22/19 12:15 Oxygen Delivery Method Room Air 12/22/19 12:15 Oxygen Flow Rate 0 12/22/19 12:15 Pain Level 0 12/22/19 14:45 Intake & Output 12/21/19 12/22/19 12/22/19 23:59 11:59 23:59 Intake Total 1670 / 2760 1590 / 3014.083 1424.083 / 3014.083 Output Total 2099 / 3175 1974 600 / 2575 Balance -430 / -415 -385 / 439.083 824.083 / 439.083 Weight 98.3 kg Intake: IV 950 / 1800 1350 / 2324.083 974.083 / 2324.083 Oral 720 / 960 240 / 690 450 / 690 Output: Urine 2099 600 / 2575 Other: Urine Color Pale Yellow Yellow Yellow Urine Appearance Clear Clear Clear Urine Odor None None None Stool Size Copious Voiding Methods Urinal Urinal Data Completed and Pending Labs on day of discharge: Labs from last 24 hours 12/22/19 12/22/19 12/22/19 11:00 06:08 06:08 WBC 3.40 L RBC 3.84 L Hgb 11.6 L Hct 35.0 L MCV 91.1 MCH 30.2 MCHC 33.1 RDW 12.0 Plt Count 254 MPV 9.4 Immature Gran % 0.3 Neutrophils % 40.0 Lymphocytes % 37.9 Monocytes % 12.4 Eosinophils % 7.9 Basophils % 1.5 Absolute Neutrophils 1.36 Absolute Lymphocytes 1.29 Absolute Monocytes 0.42 Absolute Eosinophils 0.27 Absolute Basophils 0.05 ESR 59 H Sodium 140 Potassium 4.0 Chloride 107 Carbon Dioxide 31.6 Anion Gap 1.4 L BUN 15 Creatinine 0.92 Estimated GFR/1.73 m2 >= 60.00 Glucose 90 Calcium 8.2 L C-Reactive Protein 1.70 H Vancomycin Trough Cancelled [facility] Medical History Anxiety (Chronic) Diabetes (Chronic) History of amputation of great toe (Acute) Hypertension (Chronic) Substance abuse in remission (Acute) Toe osteomyelitis, right (Inactive) Right great toe 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
== END 2019-12-22 14:45 | disposition home or self-care (01) | DRG 540 ==
LOC: ER 13:20 → MS 15:57 → ICU 12-21 09:33
PROVIDERS: Admitting Provider Internal Medicine; Emergency Provider Physician Assistant; PCP Nurse Practitioner Family; Visit Provider Family Medicine
DX: M86.172 Other acute osteomyelitis, left ankle and foot (principal); F11.20 Opioid dependence, uncomplicated; E11.65 Type 2 diabetes mellitus with hyperglycemia; E11.42 Type 2 diabetes mellitus with diabetic polyneuropathy; Z79.4 Long term (current) use of insulin; I10 Essential (primary) hypertension; F17.290 Nicotine dependence, other tobacco product, uncomplicated; Z23 Encounter for immunization; E03.9 Hypothyroidism, unspecified
CPT/HCPCS: 36415; 80048; 80053; 80061; 84145; 85652; 96361; 96365; 96375; 99221; 99223; 99233; 99239; 99252; 99285; J1650; 73660; 80202; 83036; 83605; 83735; 85025; 86140; 99284; J2543; J3370

== ENCOUNTER → 2020-01-06 11:10 | Outpatient (BNVA) | payer MEDICARE, MEDICAID, SELFPAY | PROVIDERS: PCP Nurse Practitioner Family; Referring Provider Nurse Practitioner Family; Visit Provider Orthopaedic Surgery | DX: M86.172 Other acute osteomyelitis, left ankle and foot (principal) | CPT/HCPCS: 99213 ==

== ENCOUNTER 2020-01-22 15:04 | Emergency (ER) | payer MEDICARE, MEDICAID, SELFPAY ==
[2020-01-22 15:06] VITALS: BP 166/71; PULSE 56; RESP 18; TEMP 36.9; O2SAT 97
--- NOTE | 2020-01-22 15:26 | W.ED.GENAD ---
Discharge Plan Disposition Patient Disposition: OTHER Condition: Stable Discharge Details Chief Complaint: Laceration Clinical Impression: Left before treatment completed, Facial laceration, Foreign body of face Primary Care Provider: Galen Rivera ED Provider: Anay Sterling Home Meds and New Rx's Prescriptions: No Action methadone 10 MG/ML concentrate 225 mg PO DAILY RF: 0 clonazepam 1 MG tablet 1 mg PO DAILY PRN PRNRF: 0 metformin 500 mg tablet extended release 24 hr 2,000 mg PO DAILY RF: 0 levothyroxine 137 mcg Tablet 137 mcg PO DAILY RF: 0 lovastatin 10 mg Tablet 10 mg PO HS RF: 0 gabapentin 800 mg Tablet 800 mg PO QID RF: 0 lisinopril 30 mg Tablet 30 mg PO DAILY RF: 0 Lantus Solostar U-100 Insulin 100 unit/mL (3 mL) Insulin Pen 16 unit SUBCUT QAM RF: 0 Lantus Solostar U-100 Insulin 100 unit/mL (3 mL) Insulin Pen 32 unit SUBCUT QPM RF: 0 cephalexin 500 mg tablet 500 mg PO QID Qty: 180 RF: 0 Discharge Data Discharge Date/Time-TO BE ENTERED AT DEPARTURE: 01/22/20 16:35 Medical Decision Making 1530 -- 69-year-old male with a history of anxiety, diabetes, hypertension who presents with right-sided facial laceration sustained after mechanical fall in which he hit the right side of his face on a frozen pot and wood. He is concerned about embedded wood in the laceration. Unknown tetanus status. He is unsure about LOC. He denies any other injury. He denies neck pain. Patient has a sick centimeter linear laceration right temporal region with 2 pieces of what appears to be wood embedded under the skin and protruding from outside laceration. Bleeding controlled. Patient also admitted to epistaxis which is now controlled. No other facial deformity noted. No C-spine tenderness. Patient given Boostrix and referred for CT head, facial bones and C-spine due to history of nose injury and possible LOC. We will plan to anesthetize and irrigate the area well and remove pieces of retained wood. 1630 --patient given Boostrix. He stood up and walked out of the room telling the nurse that I have been waiting here 3 hours and I need to get out of here . Patient has been here 90 minutes. Patient left before I was able to discuss and reevaluate. Imaging reviewed after patient left and negative for acute findings. Pt placed on care management list for follow up. Medical Records Medical records reviewed: Yes I reviewed the patient's medical records. Imaging Data Radiologic Study: Radiologist's impression: CT Head Without Contrast Exam date and time: 01/22/2020 3:53 PM Age: 69 years old Clinical indication: Injury or trauma; Fall; Initial encounter; Blunt trauma (contusions or hematomas); Forehead and orbit/periorbital; Right; Patient HX: Hit face against frozen wood/pot TECHNIQUE: Imaging protocol: Computed tomography of the head without contrast. COMPARISON: No relevant prior studies available. FINDINGS: Brain: Normal. No hemorrhage. Unremarkable white matter. No mass effect. Ventricles: Normal. No ventriculomegaly. Bones/joints: Unremarkable. No acute fracture. Sinuses: Visualized sinuses are unremarkable. No fluid levels. Mastoid air cells: Visualized mastoid air cells are well aerated. Soft tissues: Unremarkable. IMPRESSION: No acute intracranial abnormality. CT Maxillofacial Without Contrast Exam date and time: 01/22/2020 3:53 PM Age: 69 years old Clinical indication: Injury or trauma; Fall; Initial encounter; Blunt trauma (contusions or hematomas); Forehead and orbit/periorbital; Right; Patient HX: Hit face against frozen wood/pot TECHNIQUE: Imaging protocol: Computed tomography images of the face without contrast. COMPARISON: No relevant prior studies available. FINDINGS: Orbits: Orbits are normal. Globes are unremarkable. Sinuses: Normal. No air-fluid levels. Bones/joints: No acute fracture. Soft tissues: Laceration in right temporal scalp. IMPRESSION: No acute abnormality. CT Cervical Spine Without Contrast Exam date and time: 01/22/2020 3:53 PM Age: 69 years old Clinical indication: Injury or trauma; Fall; Initial encounter; Blunt trauma (contusions or hematomas); Forehead and orbit/periorbital; Right; Patient HX: Hit face against frozen wood/pot TECHNIQUE: Imaging protocol: Computed tomography images of the cervical spine without contrast. COMPARISON: No relevant prior studies available. FINDINGS: Vertebrae: Straightening of the cervical spine. Discs/Spinal canal/Neural foramina: There is multilevel uncovertebral and facet hypertrophy with neural foramina narrowing. Multilevel degenerative disc disease. Soft tissues: Unremarkable. Lungs: Lung apices are normal. IMPRESSION: Straightening of the cervical spine. Ligamentous/muscular strain. HPI General Mode of arrival: ambulatory. Date/Time Provider Initiated Documentation: 01/22/20 15:05. Limitations to Documentation: no limitations. Information obtained by: patient. History of Present Illness 69 year old M presents to the emergency department with the chief complaint of Laceration R side face after tripped and hit face on frozen wood and pot, and is localized to the face. Patient reports no radiation. Patient started experiencing this hour(s) (1) and it has been constant. No relieving factors improve symptom(s), No exacerbating factors reported . Patient notes no other symptoms. and other (possible loc with head injury). Patient did receive the following treatments prior to arrival, none Related Data Home Medications Medication Instructions Recorded Confirmed clonazepam 1 mg PO DAILY PRN PRN 04/07/13 01/06/20 methadone 225 mg PO DAILY 04/07/13 01/06/20 metformin 500 mg tablet,extended 2,000 mg PO DAILY 01/15/19 01/06/20 release 24 hr Lantus Solostar U-100 Insulin 16 unit SUBCUT QAM 12/21/19 01/06/20 Lantus Solostar U-100 Insulin 32 unit SUBCUT QPM 12/21/19 01/06/20 gabapentin 800 mg PO QID 12/21/19 01/06/20 levothyroxine 137 mcg PO DAILY 12/21/19 01/06/20 lisinopril 30 mg PO DAILY 12/21/19 01/06/20 lovastatin 10 mg PO HS 12/21/19 01/06/20 cephalexin 500 mg PO QID #180 tab 12/22/19 01/06/20 Previous Rx's Medication Instructions Recorded cephalexin 500 mg PO QID #180 tab 12/22/19 Allergies Allergy/AdvReac Type Severity Reaction Status Date / Time codeine AdvReac itching Unverified 01/06/20 11:34 and bloutchy naloxone HCl [From Narcan] AdvReac Unverified 01/06/20 11:34 pentazocine lactate AdvReac makes me Unverified 01/06/20 11:34 [From Erica] deathly ill Narcotic AdvReac H/O drug Uncoded 01/06/20 11:34 abuse narcotic antagonists AdvReac Uncoded 01/06/20 11:34 General Stated Complaint: Laceration ANNE: 3 Review of Systems All systems reviewed & are unremarkable except as noted in HPI and below Constitutional Constitutional: Reports as per HPI, Denies chills and Denies fever(s) Eyes Eyes: Denies blurry vision ENT Ears, Nose, Mouth, and Throat: Denies dizziness, Denies sore throat and Denies throat swelling Cardiovascular Cardiovascular: Denies chest pain and Denies dyspnea Respiratory Respiratory: Denies cough and Denies dyspnea Gastrointestinal Gastrointestinal: Denies abdominal pain, Denies diarrhea and Denies vomiting Genitourinary Genitourinary: Denies hematuria and Denies dysuria Musculoskeletal Musculoskeletal: Denies back pain and Denies numbness Integumentary/Breasts Skin/Breast: Denies lesions and Denies rash Neurologic Neurologic: Denies dizziness, Denies focal weakness and Denies numbness Allergic/Immunologic Allergic/Immunologic: Denies throat swelling [facility] Medical History Anxiety (Chronic) Diabetes (Chronic) History of amputation of great toe (Acute) Hypertension (Chronic) Substance abuse in remission (Acute) Toe osteomyelitis, right (Inactive) Right great toe 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) Surgical History History of appendectomy (Chronic) History of inguinal hernia repair (Acute) Status post amputation of toe (Inactive) 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 Foreign bodies likely consistent with wood palpated under skin and right temporal region. Some pieces of wood noted extending from laceration. Laceration is linear and approximately 6 cm in length extending to the dermis. There is no active bleeding. Ears: hearing grossly normal bilaterally, external ears normal and TM's normal bilaterally General nose exam: other (Dried blood noted in nares. No active bleeding) Mouth: oral mucosae normal Eyes General: appearance normal, both eyes and all related structures Pupils: PERRL EOM: EOM intact bilaterally Neck Neck: normal visual inspection and No submandibular swelling Lymphatic: no lymphadenopathy noted Chest Chest: normal inspection of the chest and no tenderness Resp Effort & Inspection: normal respiratory effort and able to speak in complete sentences Auscultation: clear to auscultation bilaterally Cardio Rate: regular rate Rhythm: regular rhythm GI Inspection: normal to inspection Palpation: soft, not firm, not rigid and nontender Auscultation: normal bowel sounds Back/Spine/Pelvis Cervical Spine: No cervical spinal tenderness Skin General skin exam: no rashes or lesions noted Neuro General: alert, awake, oriented x3, gait normal, moves all extremities and no focal motor deficits Cognition: normal cognition Speech: speech normal Motor: muscle tone normal throughout Sensory Exam: no sensory deficits noted Extrem General: normal to inspection, full ROM, normal capillary refill, no calf tenderness bilaterally and no edema Psych Appearance: grossly normal Mental Status: mental status grossly normal Speech and Movement: speech and movement normal Affect: normal affect Course Vital Signs Vital signs: Vital Signs Temperature 98.4 F 01/22/20 15:06 Pulse 56 L 01/22/20 15:06 Respiratory Rate 18 01/22/20 15:06 Blood Pressure 166/71 H 01/22/20 15:06 Pulse Oximetry 97 01/22/20 15:06 Temperature 98.4 F 01/22/20 15:06 Temperature Source Skin 01/22/20 15:06 Pulse 56 L 01/22/20 15:06 Respiratory Rate 18 01/22/20 15:06 Respiratory Effort 01/22/20 15:10 Blood Pressure 166/71 H 01/22/20 15:06 Blood Pressure Position Sitting 01/22/20 15:06 Pulse Oximetry 97 01/22/20 15:06 Oxygen Delivery Method Room Air 01/22/20 15:06 Oxygen Flow Rate 0 01/22/20 15:06 Pain Level 6 01/22/20 15:06
--- NOTE | 2020-01-22 15:45 | DI.CT_ITS ---
EXAM: CT HEAD CERV SPINE FACIAL WO CLINICAL HISTORY: hit face against frozen wood/pot. TECHNIQUE: Imaging Protocol: Axial computed tomography images with coronal and sagittal reformatted images were created and reviewed COMPARISON: HEAD WITHOUT CONTRAST from 11/03/2016 FINDINGS: Head CT Ventricles and Extra axial spaces: Normal in size and morphology for the patient's age. Hemorrhage: None. Cerebral parenchyma: Normal. Midline shift: None. Brainstem/Cerebellum: Normal. Calvarium: Normal. Visualized Paranasal sinuses/Mastoids: Clear. IMPRESSION: No acute abnormality. FINDINGS: Cervical Spine CT BONES: Vertebral body heights are maintained. Intervertebral disc spaces are normal. Alignment is nor mal. There is no evidence of acute fracture. SOFT TISSUES: No paraspinal hematoma. The airway appears intact. Degenerative disc changes and facet degenerative changes are seen . IMPRESSION: Degenerative changes, no acute abnormality. RADIATION DOSE DELIVERED: DATA REPOSITORY: All CT scans at this facility are submitted to the National Radiology Data Registry (NRDR) Dose Index Registry (DIR) with the [employer] (ACR). RADIATION OPTIMIZATION: All CT scans at this facility use at least one of these dose optimization te chniques: automated exposure control; mA and/or kV adjustment per patient size (includes targeted exa ms where dose is matched to clinical indication); or iterative reconstruction.
[2020-01-22] MEDS: Acetaminophen 500 MG TAB 1000 MG PO (16:43)
--- NOTE | 2020-01-22 16:58 | DI.VRAD_ITS ---
PROCEDURE INFORMATION: Exam: CT Head Without Contrast Exam date and time: 01/22/2020 3:53 PM Age: 69 years old Clinical indication: Injury or trauma; Fall; Initial encounter; Blunt trauma (contusions or hematomas); Forehead and orbit/periorbital; Right; Patient HX: Hit face against frozen wood/pot TECHNIQUE: Imaging protocol: Computed tomography of the head without contrast. COMPARISON: No relevant prior studies available. FINDINGS: Brain: Normal. No hemorrhage. Unremarkable white matter. No mass effect. Ventricles: Normal. No ventriculomegaly. Bones/joints: Unremarkable. No acute fracture. Sinuses: Visualized sinuses are unremarkable. No fluid levels. Mastoid air cells: Visualized mastoid air cells are well aerated. Soft tissues: Unremarkable. IMPRESSION: No acute intracranial abnormality. PROCEDURE INFORMATION: Exam: CT Maxillofacial Without Contrast Exam date and time: 01/22/2020 3:53 PM Age: 69 years old Clinical indication: Injury or trauma; Fall; Initial encounter; Blunt trauma (contusions or hematomas); Forehead and orbit/periorbital; Right; Patient HX: Hit face against frozen wood/pot TECHNIQUE: Imaging protocol: Computed tomography images of the face without contrast. COMPARISON: No relevant prior studies available. FINDINGS: Orbits: Orbits are normal. Globes are unremarkable. Sinuses: Normal. No air-fluid levels. Bones/joints: No acute fracture. Soft tissues: Laceration in right temporal scalp. IMPRESSION: No acute abnormality. PROCEDURE INFORMATION: Exam: CT Cervical Spine Without Contrast Exam date and time: 01/22/2020 3:53 PM Age: 69 years old Clinical indication: Injury or trauma; Fall; Initial encounter; Blunt trauma (contusions or hematomas); Forehead and orbit/periorbital; Right; Patient HX: Hit face against frozen wood/pot TECHNIQUE: Imaging protocol: Computed tomography images of the cervical spine without contrast. COMPARISON: No relevant prior studies available. FINDINGS: Vertebrae: Straightening of the cervical spine. Discs/Spinal canal/Neural foramina: There is multilevel uncovertebral and facet hypertrophy with neural foramina narrowing. Multilevel degenerative disc disease. Soft tissues: Unremarkable. Lungs: Lung apices are normal. IMPRESSION: Straightening of the cervical spine. Ligamentous/muscular strain. Dictated and Authenticated by: Rodolfo Lara MD. Ordering:WESTON Cueva MD
--- NOTE | 2020-01-25 08:51 | PDOC.ERCMPRO ---
- If Service Date Differs Date of service: 01/25/20 Time of Service: 08:51 Care Management Progress Note CM speaks with Darwin by telephone this morning. He was seen in the emergency department on 01/22/2020 for a laceration to the right side of his face, but left the hospital prior to receiving treatment. Darwin reports he is doing ok today. He used a pair of pliers to pull pieces of wood out of the laceration and has been cleaning the wound with hydrogen peroxide. He states the wound looks ok but is swollen. He reports being upset with the emergency department, stating he came in to get a local anesthetic to help with the pain but says the doctor didn't want to have nothing to do with that. He further reports that he left before receiving treatment because he felt the doctor did not want to help him. Darwin is encouraged to call his PCP for an appointment to ensure the wound is not infected. RONDA will also contact his PCP to ask that they outreach to him. Darwin is appreciate of the follow-up phone call but says he will never return to [facility] for anything.
== END 2020-01-22 16:35 | disposition other institution (70) ==
PROVIDERS: Emergency Provider Physician Assistant; PCP Nurse Practitioner Family
DX: S01.82XA Laceration with foreign body of other part of head, initial encounter (principal); W01.198A Fall on same level from slipping, tripping and stumbling with subsequent striking against other object, initial encounter; Z53.29 Procedure and treatment not carried out because of patient's decision for other reasons; I10 Essential (primary) hypertension; E11.42 Type 2 diabetes mellitus with diabetic polyneuropathy; Z79.4 Long term (current) use of insulin
CPT/HCPCS: 90471; 99284; 70450; 70486; 72125

== ENCOUNTER 2020-02-02 11:11 | Outpatient (CLI) | payer MEDICARE, MEDICAID, SELFPAY ==
--- NOTE | 2020-02-02 11:00 | DI.RAD_ITS ---
EXAM: XR FOOT RT LIMITED CLINICAL HISTORY: F/U OSTEO. TECHNIQUE: 2D digital imaging was performed. COMPARISON: XR TOE RT SECOND from 12/19/2019 XR TOE LT GREAT from 12/20/2019 FINDINGS: BONES: There has been no further change in the appearance of the head of the proximal phalanx of the great toe. Patient is status post partial amputation of the great toe. The distal cortex appears st able. No further destructive changes are seen. The previously questioned area involving the distal phalanx of the 2nd toe cannot be evaluated due to patient positioning. No radiopaque foreign bodies are seen in the soft tissues. There are degenerative changes seen in the foot. Healed fractures invol ving the 2nd and 3rd metatarsals are noted. There is a hallux valgus deformity noted. IMPRESSION: 1. Stable changes of the proximal phalanx of the great toe. 2. The distal phalanx of the 2nd toe cannot be well evaluated due to the positioning of the toes. 3. Degenerative and post traumatic changes of the foot. DATA REPOSITORY: RADIATION DOSE DELIVERED:
== END 2020-02-02 11:31 ==
PROVIDERS: PCP Nurse Practitioner Family; Referring Provider Nurse Practitioner Family; Visit Provider Orthopaedic Surgery
DX: M86.171 Other acute osteomyelitis, right ankle and foot (principal); M19.071 Primary osteoarthritis, right ankle and foot; M20.11 Hallux valgus (acquired), right foot; Z87.81 Personal history of (healed) traumatic fracture
CPT/HCPCS: 99213; 73620

== ENCOUNTER 2020-12-08 17:00 | Outpatient (REF) | payer MEDICARE, MEDICAID, SELFPAY ==
[2020-12-08 18:35] LABS: Abs Immature Grans 0.04 10^3/uL (0.0-0.06); Absolute Basophil Count 0.09 10^3/uL (0.0-0.2); Absolute Eosinophil Count 0.32 10^3/uL (0.0-0.7); Absolute Lymphocyte Count 1.85 10^3/uL (1.2-3.4); Absolute Monocyte Count 0.54 10^3/uL (0.1-0.8); Absolute Neutrophil Count 6.44 10^3/uL (1.2-6.7); Eosinophils % 3.4; HCT 42.5 % (40.0-50.0); HGB 14.3 g/dL (13.5-17.5); Immature Grans % 0.4; Lymphocytes % 19.9; MCH 30.1 pg (27.0-33.0); MCHC 33.6 % (32.0-36.0); MCV 89.5 fL (80-95); MPV 10.9 fL (8.0-11.0); Monocytes % 5.8; Neutrophils % 69.5; Nucleated RBC 0 %; Platelet Count 266 10^3/uL (130-400); RBC 4.75 10^6/uL (4.36-5.78); RDW 12.2 % (11.8-14.1); RDW-SD 39.8 fL; WBC 9.28 10^3/uL (4.4-10.8)
[2020-12-08 19:04] LABS: ALT 36 U/L (16-63); AST 18 U/L (15-37); Albumin 3.5 g/dL (3.4-5.0); Alkaline Phosphatase 147 U/L (46-116); Anion Gap 8.5 mmol/L (3-11); BUN 18 mg/dL (7-18); Bilirubin, Total 0.5 mg/dL (0.2-1.0); C-Reactive Protein 2.37 mg/dL (0.0-0.3); CO2 27.5 mmol/L (21.0-32.0); CREATININE 1.07 mg/dL (0.70-1.30); Chloride 100 mmol/L (98-107); Glucose 368 mg/dL (74-106); LDH 150 U/L (85-227); Potassium 4.4 mmol/L (3.5-5.1); Sodium 136 mmol/L (136-145)
[2020-12-09 21:39] LABS: COVID-19 RT-PCR UVMMC Result Negative (Negative)
== END 2020-12-08 17:20 ==
LOC: NCHCN 17:00
PROVIDERS: PCP Nurse Practitioner Family; Visit Provider Nurse Practitioner Family
DX: R50.9 Fever, unspecified (principal); R06.02 Shortness of breath
CPT/HCPCS: 80053; 85652; U0003; 83615; 85025; 86140

== ENCOUNTER 2021-04-14 19:48 | Outpatient (REF) | payer MEDICARE, MEDICAID, SELFPAY ==
[2021-04-14 18:50] LABS: Abs Immature Grans 0.02 10^3/uL (0.0-0.06); Absolute Basophil Count 0.06 10^3/uL (0.0-0.2); Absolute Eosinophil Count 0.38 10^3/uL (0.0-0.7); Absolute Lymphocyte Count 2.04 10^3/uL (1.2-3.4); Absolute Monocyte Count 0.72 10^3/uL (0.1-0.8); Absolute Neutrophil Count 4.16 10^3/uL (1.2-6.7); Basophils % 0.8; Eosinophils % 5.1; HCT 42.2 % (40.0-50.0); HGB 14.1 g/dL (13.5-17.5); Immature Grans % 0.3; Lymphocytes % 27.6; MCHC 33.4 % (32.0-36.0); MCV 89.8 fL (80-95); MPV 11.4 fL (8.0-11.0); Monocytes % 9.8; Neutrophils % 56.4; Nucleated RBC 0 %; Platelet Count 248 10^3/uL (130-400); RDW 12.3 % (11.8-14.1); RDW-SD 40.4 fL; WBC 7.38 10^3/uL (4.4-10.8)
[2021-04-14 18:59] LABS: ALT 39 U/L (16-63); AST 63 U/L (15-37); Albumin 3.5 g/dL (3.4-5.0); Alkaline Phosphatase 112 U/L (46-116); Anion Gap 7.7 mmol/L (3-11); BUN 24 mg/dL (7-18); Bilirubin, Total 0.6 mg/dL (0.2-1.0); CO2 28.3 mmol/L (21.0-32.0); Calcium 9.3 mg/dL (8.5-10.1); Chloride 104 mmol/L (98-107); Glucose 248 mg/dL (74-106); Potassium 4.2 mmol/L (3.5-5.1); Sodium 140 mmol/L (136-145); Total Protein 7.7 g/dL (6.4-8.2)
[2021-04-17 11:39] LABS: Lyme Ab w Rflx to Lyme Confirm Negative (Negative)
[2021-04-18 18:44] LABS: Anaplasma phagocytophilum Negative (Negative); B. miyamotoi PCR Negative (Negative); Babesia divergens/MO-1 Negative (Negative); Babesia duncani Negative (Negative); Babesia microti Negative (Negative); Ehrlichia chaffeensis Negative (Negative); Ehrlichia ewingii/canis Negative (Negative); Ehrlichia muris eauclairensis Negative (Negative)
== END 2021-04-14 19:49 | disposition home or self-care (01) ==
LOC: NCHCN 19:48
PROVIDERS: PCP Nurse Practitioner Family; Visit Provider Nurse Practitioner Family
DX: R06.02 Shortness of breath (principal); R50.9 Fever, unspecified
CPT/HCPCS: 80053; 87798; 85025; 86618

== ENCOUNTER 2021-05-12 14:45 | Outpatient (REF) | payer MEDICARE, MEDICAID, SELFPAY ==
[2021-05-12 19:33] LABS: Hemoglobin A1C 9.9 % (<5.7)
[2021-05-12 19:39] LABS: TSH 1.16 uIU/mL (0.36-3.74)
== END 2021-05-12 14:46 | disposition home or self-care (01) ==
LOC: NCHCN 14:45
PROVIDERS: PCP Nurse Practitioner Family; Visit Provider Nurse Practitioner Family
DX: E03.9 Hypothyroidism, unspecified (principal); E11.9 Type 2 diabetes mellitus without complications
CPT/HCPCS: 83036; 84443

== ENCOUNTER 2021-05-16 19:11 | Emergency (ER) | payer MEDICARE, MEDICAID, SELFPAY ==
[2021-05-16] VITALS (8 sets, daily range): BP systolic 113–164; BP diastolic 48–63; PULSE 96–102; RESP 9–20; TEMP 36.7; O2SAT 95–97
--- NOTE | 2021-05-16 20:03 | W.ED.GENAD ---
Discharge Plan Disposition Patient Disposition: OTHER Discharge Details Clinical Impression: Diabetic infection of right foot Primary Care Provider: Galen Rivera ED Provider: Lola Lira Home Meds and New Rx's Prescriptions: No Action methadone 10 MG/ML concentrate 225 mg PO DAILY RF: 0 clonazepam 1 MG tablet 1 mg PO DAILY PRN PRNRF: 0 metformin 500 mg tablet extended release 24 hr 2,000 mg PO DAILY RF: 0 levothyroxine 137 mcg Tablet 137 mcg PO DAILY RF: 0 lovastatin 10 mg Tablet 10 mg PO HS RF: 0 gabapentin 800 mg Tablet 800 mg PO QID RF: 0 lisinopril 30 mg Tablet 30 mg PO DAILY RF: 0 Lantus Solostar U-100 Insulin 100 unit/mL (3 mL) Insulin Pen 40 unit SUBCUT QAM RF: 0 Lantus Solostar U-100 Insulin 100 unit/mL (3 mL) Insulin Pen 20 unit SUBCUT QPM RF: 0 Discharge Data Discharge Date/Time-TO BE ENTERED AT DEPARTURE: 05/16/21 22:05 Medical Decision Making <Lola Lira NP - Last Filed: 05/16/21 23:20> patient presents for evaluation of right foot ulcers. poor historian. suspect osteomyelitis. IV established and labs drawn including cbc, cmp, sed rate esr, blood cultures. wound cultures obtained. IV infiltrates and difficulty establishing another line but finally placed. IV fluid bolus NS started, 1 liter. zosyn 3.375 mg given. will need inpatient management, no beds available here so contacted DR Virk at [facility] who accepts patient in transfer. vancomycin ordered but not hung prior to transfer and is being transported by ground ems, basic level so transfer not delayed. CT scan completed. patient is agreeable to lateral transfer for inpatient treatment of diabetic foot ulcer, suspected osteomyelitis. Medical Records Medical records reviewed: Yes I reviewed the patient's medical records. Lab Data Lab results reviewed: Yes I reviewed the patient's lab results. Lab results narrative: hemoglobin A1C in April 2021 was 9.9 tetanus updated 01/22/20 Labs: Laboratory Results - last 24 hr 05/16/21 05/16/21 05/16/21 19:54 19:54 19:54 WBC RBC Hgb Hct MCV MCH MCHC RDW Plt Count MPV Immature Gran % Neutrophils % Lymphocytes % Monocytes % Eosinophils % Basophils % Nucleated RBC % Absolute Neutrophils Absolute Lymphocytes Absolute Monocytes Absolute Eosinophils Absolute Basophils ESR 87 H VBG Lactate Sodium Cancelled Potassium Cancelled Chloride Cancelled Carbon Dioxide Cancelled Anion Gap Cancelled BUN Cancelled Creatinine Cancelled Estimated GFR/1.73 m2 Cancelled Glucose Cancelled Calcium Cancelled Magnesium Cancelled Total Bilirubin Cancelled AST Cancelled ALT Cancelled Alkaline Phosphatase Cancelled C-Reactive Protein Cancelled Total Protein Cancelled Albumin Cancelled 05/16/21 05/16/21 05/16/21 19:54 20:32 20:32 WBC 16.53 H RBC 3.98 L Hgb 11.8 L Hct 36.6 L MCV 92.0 MCH 29.6 MCHC 32.2 RDW 12.6 Plt Count 299 MPV 11.2 H Immature Gran % 0.7 Neutrophils % 82.7 Lymphocytes % 6.8 Monocytes % 8.7 Eosinophils % 0.7 Basophils % 0.4 Nucleated RBC % 0 Absolute Neutrophils 13.67 H Absolute Lymphocytes 1.12 L Absolute Monocytes 1.44 H Absolute Eosinophils 0.12 Absolute Basophils 0.07 ESR VBG Lactate 3.1 H* Sodium 136 Potassium 4.8 Chloride 98 Carbon Dioxide 28.9 Anion Gap 9.1 BUN 29 H Creatinine 1.1 Estimated GFR/1.73 m2 >= 60.00 Glucose 482 H Calcium 8.9 Magnesium 1.7 L Total Bilirubin 0.7 AST 50 H ALT 49 Alkaline Phosphatase 140 H C-Reactive Protein > 25.00 H Total Protein 7.2 Albumin 2.2 L <Nolan Cartagena MD - Last Filed: 05/20/21 04:04> Patient seen, examined, and discussed with OLGA Lira. I agree with treatment plan as discussed/documented. [place] [facility] [place]GA [place]ira arranging transfer. HPI <Lola Lira NP - Last Filed: 05/16/21 23:20> General Mode of arrival: wheelchair. Date/Time Provider Initiated Documentation: 05/16/21 19:25. Limitations to Documentation: other (poor historian). Information obtained by: patient and old records reviewed. HPI Narrative: patient presents with right foot ulcers, necrosis, unable to provide meaningful history. reports some chills, thinks maybe he had a fever. Related Data Home Medications Medication Instructions Recorded Confirmed clonazepam 1 mg PO DAILY PRN PRN 04/07/13 05/16/21 methadone 225 mg PO DAILY 04/07/13 05/16/21 metformin 500 mg tablet,extended 2,000 mg PO DAILY 01/15/19 05/16/21 release 24 hr Lantus Solostar U-100 Insulin 20 unit SUBCUT QPM 12/21/19 05/16/21 Lantus Solostar U-100 Insulin 40 unit SUBCUT QAM 12/21/19 05/16/21 gabapentin 800 mg PO QID 12/21/19 05/16/21 levothyroxine 137 mcg PO DAILY 12/21/19 05/16/21 lisinopril 30 mg PO DAILY 12/21/19 05/16/21 lovastatin 10 mg PO HS 12/21/19 05/16/21 Allergies Allergy/AdvReac Type Severity Reaction Status Date / Time codeine AdvReac itching Unverified 05/16/21 20:46 and bloutchy naloxone HCl [From Narcan] AdvReac Unverified 05/16/21 20:46 pentazocine lactate AdvReac makes me Unverified 05/16/21 20:46 [From Erica] deathly ill Narcotic AdvReac H/O drug Uncoded 05/16/21 20:46 abuse narcotic antagonists AdvReac Uncoded 05/16/21 20:46 General Stated Complaint: Cellulitis ANNE: 3 <Nolan Cartagena MD - Last Filed: 05/20/21 04:04> General Limitations to Documentation: other (History limited as patient poor historian). Information obtained by: patient. HPI Narrative: 71-year-old male with history of poorly controlled diabetes with diabetic foot ulcers and prior partial amputation right foot, here with chief complaint of foot infection. Patient is unsure as to how long his foot is been inflamed but notes worsening inflammation with ulcers. He states that his foot is rotting. Information is now severe with no modifiers. He has no associated fever but has had confusion over the past 5 days with poor recollection Review of Systems <Lola Lira NP - Last Filed: 05/16/21 23:20> All systems reviewed & are unremarkable except as noted in HPI and below and Unobtainable due to mental status (poor historian) Constitutional Constitutional: Reports chills, Reports lethargy and Reports malaise Integumentary/Breasts Skin/Breast: Reports lesions and Reports rash Neurologic Neurologic: Reports confusion Psychiatric Psychiatric: Reports confusion PFSH <Lola Lira NP - Last Filed: 05/16/21 23:20> Medical History (Updated 05/16/21 @ 22:02 by Lola Lira NP) Anxiety Diabetes History of amputation of great toe Hypertension Substance abuse in remission Toe osteomyelitis, right Right great toe 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 Exam <Lola Lira NP - Last Filed: 05/16/21 23:20> Const General: disheveled, frail appearing and ill appearing chronically Nutritional Appearance: average body habitus Orientation: alert, awake and oriented x3 (poor historian) HENMT Head: normal to inspection, normocephalic and atraumatic Resp Effort & Inspection: normal respiratory effort Cardio Rate: regular rate Rhythm: regular rhythm GI Inspection: normal to inspection Palpation: soft Auscultation: normal bowel sounds Skin Lesions: lesion noted (multiple lesions to right foot, dorsal and plantar ) Rashes: rashes noted (marked with skin marker. ) Wounds: amputation site Neuro General: patient alert, patient awake and patient oriented x3 Extrem General: abnormal to inspection Right lower extremity: edema and foot (multiple lesions to dorsal and plantar aspect,wound beds with slough, necro) Details: edema; no crepitus; abnormal to inspection Course <Lola Lira NP - Last Filed: 05/16/21 23:20> Vital Signs Vital signs: Vital Signs Temperature 36.7 C 05/16/21 19:16 Pulse 97 H 05/16/21 19:16 Respiratory Rate 16 05/16/21 19:16 Blood Pressure 164/63 H 05/16/21 19:16 Pulse Oximetry 97 05/16/21 19:16 Temperature 36.7 C 05/16/21 19:16 Pulse 97 H 05/16/21 19:16 Respiratory Rate 16 05/16/21 19:16 Blood Pressure 164/63 H 05/16/21 19:16 Blood Pressure Position Sitting 05/16/21 19:16 Pulse Oximetry 97 05/16/21 19:16 Oxygen Delivery Method Room Air 05/16/21 19:16 Oxygen Flow Rate 0 05/16/21 19:16 Pain Level 6 05/16/21 19:16 Lab/Test Results Lab/Test Results: 05/16/21 19:54 Blood Blood Culture - Pending 05/16/21 19:26 Blood Blood Culture - Pending
[2021-05-16 20:07] LABS: Abs Immature Grans 0.12 10^3/uL (0.0-0.06); Absolute Basophil Count 0.07 10^3/uL (0.0-0.2); Absolute Eosinophil Count 0.12 10^3/uL (0.0-0.7); Basophils % 0.4; Eosinophils % 0.7; HCT 36.6 % (40.0-50.0); HGB 11.8 g/dL (13.5-17.5); Immature Grans % 0.7; Lymphocytes % 6.8; MCH 29.6 pg (27.0-33.0); MCHC 32.2 % (32.0-36.0); MPV 11.2 fL (8.0-11.0); Monocytes % 8.7; Neutrophils % 82.7; Nucleated RBC 0 %; Platelet Count 299 10^3/uL (130-400); RBC 3.98 10^6/uL (4.36-5.78); RDW 12.6 % (11.8-14.1); RDW-SD 42.4 fL; WBC 16.53 10^3/uL (4.4-10.8)
[2021-05-16 20:09] LABS: Absolute Lymphocyte Count 1.12 10^3/uL (1.2-3.4); Absolute Monocyte Count 1.44 10^3/uL (0.1-0.8); Absolute Neutrophil Count 13.67 10^3/uL (1.2-6.7)
[2021-05-16 20:10] LABS: ESR 87 mm/hr (0-20)
--- NOTE | 2021-05-16 20:15 | DI.CT_ITS ---
Exam(s) CT LOWER EXTREMITY RT WO EXAM: CT LOWER EXTREMITY RT WO CLINICAL HISTORY: suspect osteo, diabetic foot ulcers with necrosis. TECHNIQUE: Imaging Protocol: Axial computed tomography images with coronal and sagittal reformatted images were created and reviewed. CONTRAST MATERIAL: Intravenous: None COMPARISON: CR,XR XR TOE RT SECOND from 12/19/2019 CR,XR XR TOE RT SECOND from 12/19/2019 CR,XR XR TOE LT GREAT from 12/20/2019 CR,XR XR TOE LT GREAT from 12/20/2019 CR XR FOOT RT LIMITED from 02/02/2020 CR XR FOOT RT LIMITED from 02/02/2020 FINDINGS: OSSEOUS: There is evidence of amputation of the great toe distal phalanx. There is advanced hallux v algus. Also advanced degenerative changes in the great toe metatarsophalangeal joint. Lisfranc join t appears intact, without displacement. There are hammertoe deformities of 2nd through 5th toes. Th ere are no acute fractures. No neuropathic changes. No obvious radiographic evidence of osteomyelit is. No erosions. SOFT TISSUES: There is soft tissue swelling in the mid and distal foot plantar aspect as well is invo lving the 1st and 2nd toes. There are gas bubbles evident within areas of soft tissue swelling.. Ga s bubbles are seen both proximally and distally on the plantar aspect of the foot, more prominent dis tally and gas bubbles are also seen dorsally. Most prominence of gas in the soft tissues between the great toe and 2nd toe and dorsal to the 2nd toe. There is a skin ulcer in the medial plantar aspect of the foot at the level of the great toe metatarsophalangeal joint. IMPRESSION: Osseous findings as above. No obvious CT evidence of osteomyelitis. However, there is extensive sof t tissue swelling and abundant gas containing bubbles. Therefore recommend follow-up MRI to better e valuate for osteomyelitis. Also to better delineate any soft tissue abscesses. RADIATION DOSE DELIVERED: 325.18mGy.cm Total DLP DATA REPOSITORY: All CT scans at this facility are submitted to the National Radiology Data Registry (NRDR) Dose Index Registry (DIR) with the [employer] ([employer]). RADIATION OPTIMIZATION: All CT scans at this facility use at least one of these dose optimization te chniques: automated exposure control; mA and/or kV adjustment per patient size (includes targeted exa ms where dose is matched to clinical indication); or iterative reconstruction.
[2021-05-16 20:54] LABS: Lactate 3.1 mmol/L (0.6-1.4)
[2021-05-16 21:07] LABS: ALT 49 U/L (16-63); AST 50 U/L (15-37); Albumin 2.2 g/dL (3.4-5.0); Alkaline Phosphatase 140 U/L (46-116); Anion Gap 9.1 mmol/L (3-11); BUN 29 mg/dL (7-18); Bilirubin, Total 0.7 mg/dL (0.2-1.0); CO2 28.9 mmol/L (21.0-32.0); CREATININE 1.1 mg/dL (0.70-1.30); Calcium 8.9 mg/dL (8.5-10.1); Chloride 98 mmol/L (98-107); Glucose 482 mg/dL (74-106); Magnesium 1.7 mg/dL (1.8-2.4); Potassium 4.8 mmol/L (3.5-5.1); Sodium 136 mmol/L (136-145); Total Protein 7.2 g/dL (6.4-8.2)
[2021-05-16] MEDS: Normal Saline 1,000 ML 1000 ML IV (21:07)
[2021-05-16] MEDS: PIPERACILLIN/TAZO 3.375 GM in Normal Saline 50 ML IVPB (21:08)
[2021-05-16 21:22] LABS: C-Reactive Protein > 25.00 mg/dL (0.0-0.3)
[2021-05-16] MEDS: VANCOMYCIN 1,000 MG in Normal Saline 250 ML 166.6666 MG IVPB (21:52)
--- NOTE | 2021-05-16 21:53 | NUR.NOTE ---
Nursing Note: Diabetic (right) foot ulcers: plantar wound #1: 2cm x 1.6cm. Eschar with purulent discharge noted. plantar wound #2: 1cm x 1cm eschar appearance. Dorsal wound #3: 2.1cm x 3cm. Eschar with purulent discharge. dorsal wound #4: 1.2cm x 2cm. Eschar with purulent discharge. Lateral wound #5: 2cm x 2cm. purulent discharge noted. Medial wound #6: 1.5 cm x 1 cm. Purulent discharge. Medial wound #7: 1.6cm x 0.5cm. Purulent with minimal bloody discharge. 2nd toe wound #8: 1cm x 0.5 cm. Red and macerated appearance.
--- NOTE | 2021-05-16 22:37 | DI.VRAD_ITS ---
PROCEDURE INFORMATION: Exam: CT Right Lower Extremity Without Contrast, Foot Exam date and time: 05/16/2021 8:23 PM Age: 71 years old Clinical indication: Pain; Right; Patient HX: Suspect osteo, diabetic foot ulcers with necrosis TECHNIQUE: Imaging protocol: CT of the Right lower extremity without contrast was performed. Exam focused on the foot. Radiation optimization: All CT scans at this facility use at least one of these dose optimization techniques: automated exposure control; mA and/or kV adjustment per patient size (includes targeted exams where dose is matched to clinical indication); or iterative reconstruction. COMPARISON: 1. CR XR FOOT RT LIMITED 02/02/2020 11:00 AM 2. CR XR TOE RT SECOND 12/19/2019 8:13 PM FINDINGS: Bones/joints: No acute fracture. Patient has undergone amputation of 1st distal phalanx. Degenerative changes. Severe hallux valgus deformity. Hammertoe deformities of 2nd through 5th digits. No erosive or destructive bony changes. No significant periosteal reaction. Soft tissues: Extensive soft tissue swelling in plantar aspect of mid through distal foot as well as about 1st and 2nd rays. Multiple gas bubbles are demonstrated within the area of soft tissue swelling. Skin ulcer measuring 5 x 15 mm is present in medial plantar aspect at level of 1st metatarsophalangeal joint. IMPRESSION: 1. Extensive soft tissue swelling as described, containing gas bubbles which may have been introduced through skin ulcers or are secondary to infection with gas-forming organism. 2. No distinct bony findings for osteomyelitis. Given the soft tissue findings, the likelihood of superimposed osteomyelitis is increased and further evaluation with bone scan or MRI is recommended. 3. Degenerative changes. Dictated and Authenticated by: Lizandro Solo MD. Ordering:ADINA Davila MD
== END 2021-05-16 22:05 | disposition other institution (70) ==
PROVIDERS: Emergency Provider Nurse Practitioner Acute Care; PCP Nurse Practitioner Family
DX: E11.621 Type 2 diabetes mellitus with foot ulcer (principal); L97.419 Non-pressure chronic ulcer of right heel and midfoot with unspecified severity; E11.65 Type 2 diabetes mellitus with hyperglycemia
CPT/HCPCS: 80053; 85652; 87040; 87077; 96361; 96365; 99285; 73700; 83605; 83735; 85025; 86140; 87070; 87075; 87186; 87205; 99284; J2543

== ENCOUNTER 2021-06-12 22:34 | Inpatient (IN) | payer MEDICARE, MEDICAID, SELFPAY ==
[2021-06-12 22:47] VITALS: BP 144/61; PULSE 105; RESP 20; TEMP 36.5; O2SAT 94
--- NOTE | 2021-06-12 23:00 | DI.RAD_ITS ---
Exam(s) XR FOOT RT COMPLETE EXAM: XR FOOT RT COMPLETE CLINICAL HISTORY: suspect osteo in distal foot. TECHNIQUE: 2D digital imaging was performed. COMPARISON: CR XR FOOT RT LIMITED from 02/02/[address] LOWER EXTREMITY RT WO from 05/16/[address] LOWER EXTREMITY RT WO from 05/16/2021 FINDINGS: There has been amputation at the level of the distal shafts of the 1st and 2nd metatarsals since the previous exam. No bony erosions are seen in these locations. There is an adjacent suction catheter. There is a small soft tissue defect seen adjacent to the head of the 5th metatarsal and a lateral e rosion in the 5th metatarsal head which could indicate osteomyelitis. There is diffuse soft tissue s welling around the distal metatarsal region. Ankle and tarsal region shows degenerative changes but no suspicious bony erosions. IMPRESSION: Bony erosion at the 5th metatarsal head with adjacent ulceration, suspicious for osteomyelitis. DATA REPOSITORY: RADIATION DOSE DELIVERED:
[2021-06-12 23:23] LABS: Abs Immature Grans 0.01 10^3/uL (0.0-0.06); Absolute Basophil Count 0.08 10^3/uL (0.0-0.2); Absolute Lymphocyte Count 1.63 10^3/uL (1.2-3.4); Absolute Monocyte Count 1.05 10^3/uL (0.1-0.8); Absolute Neutrophil Count 3.46 10^3/uL (1.2-6.7); Basophils % 1.2; Eosinophils % 7.4; HCT 32.8 % (40.0-50.0); HGB 10.6 g/dL (13.5-17.5); Immature Grans % 0.1; Lymphocytes % 24.2; MCH 29.9 pg (27.0-33.0); MCHC 32.3 % (32.0-36.0); MCV 92.7 fL (80-95); Monocytes % 15.6; Neutrophils % 51.5; Nucleated RBC 0 %; Platelet Count 255 10^3/uL (130-400); RBC 3.54 10^6/uL (4.36-5.78); RDW 14.6 % (11.8-14.1); RDW-SD 49.7 fL; WBC 6.73 10^3/uL (4.4-10.8)
--- NOTE | 2021-06-12 23:35 | HPE_ITS ---
Date of service: 06/12/21 Time of Service: 23:41 Assessment and Plan Assessment and plan (1) Diabetic infection of right foot: Status: Acute Assessment and plan: 1. Diabetic foot infection. This appears to be largely acute cellulitis in setting of underlying osteo. Given that these infections tend to be mixed I would favor adding Zosyn to Vanco regimen. However there is concern about the renal insufficiency and possible Vanco toxicity so I would advise checking Vanco trough before resuming. 2. The lactic acidosis is noted. Clinically he is not septic, I wonder if this may be more a manifestation of metformin toxicity in the setting of BECKY. In any case will hold Metformin, hydrate and monitor renal function. 3. BECKY: BUN/Cr ratio suggests intrinsic lesion, as above possible Vanco toxicity. Will hydrate, monitor renal function, hold LEX. Otherwise will continue usual meds as is. History of Present Illness History of Present Illness Chief Complaint: foot infection Narrative: 71 male diabetic, recently in [facility] with right foot osteo, s/p amp toes 1 and 2, co urse complicated by MRSA bacteremia. Home on Vanco 1250 q12. Home 6 days [employer], reports foot has been getting progressively red and painful since and was instructed by HH to come to ER for evaluation. Here in ER initial findings of note for temp 36.5, wound vac in place distal right foot and erythema involving approx 2/3 of foot. Labs of note for white count 6, normal electrolytes, BUN 29, Creat 2.3 (baseline 1.0), lactate 4.0 and foot film c/w recent amputation. He is being admitted for further management. 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 Meds Allergies and Home Medications Allergies Allergy/AdvReac Type Severity Reaction Status Date / Time codeine AdvReac itching Unverified 05/16/21 20:46 and bloutchy naloxone HCl [From Narcan] AdvReac Unverified 05/16/21 20:46 pentazocine lactate AdvReac makes me Unverified 05/16/21 20:46 [From Taldeisy] deathly ill Narcotic AdvReac H/O drug Uncoded 05/16/21 20:46 abuse narcotic antagonists AdvReac Uncoded 05/16/21 20:46 Home Medications Medication Instructions Recorded Confirmed Type clonazepam 1 mg PO DAILY PRN PRN 04/07/13 06/12/21 History methadone 225 mg PO DAILY 04/07/13 06/12/21 History metformin 500 mg tablet,extended 2,000 mg PO DAILY 01/15/19 06/12/21 History release 24 hr Lantus Solostar U-100 Insulin 20 unit SUBCUT QPM 12/21/19 06/12/21 History Lantus Solostar U-100 Insulin 40 unit SUBCUT QAM 12/21/19 06/12/21 History gabapentin 800 mg PO QID 12/21/19 06/12/21 History levothyroxine 137 mcg PO DAILY 12/21/19 06/12/21 History lisinopril 40 mg PO DAILY 12/21/19 06/12/21 History Exam Narrative Exam Narrative: 144/61, 105, 36.5, 20, 94% RA. HEENT atraumatic; neck supple; lungs clear; heart RRR; abdomen soft and NT; extremities w/o edema, right foot has wound vac in place over surgical wound overlying MTP 1 and 2. There is erythema and warmth involving approx 2/3 of foot, with slight tenderness, no fluctuance or crepitus. Results Labs Result diagrams: 06/12/21 23:15 06/12/21 23:15 Labs: Laboratory Results - last 24 hr 06/12/21 06/12/21 23:15 23:15 WBC 6.73 RBC 3.54 L Hgb 10.6 L Hct 32.8 L MCV 92.7 MCH 29.9 MCHC 32.3 RDW 14.6 H Plt Count 255 MPV 10.0 Immature Gran % 0.1 Neutrophils % 51.5 Lymphocytes % 24.2 Monocytes % 15.6 Eosinophils % 7.4 Basophils % 1.2 Nucleated RBC % 0 Absolute Neutrophils 3.46 Absolute Lymphocytes 1.63 Absolute Monocytes 1.05 H Absolute Eosinophils 0.50 Absolute Basophils 0.08 VBG Lactate 4.0 H* Last Vital Signs Temp 36.5 C 06/12/21 22:47 Pulse 105 H 06/12/21 22:47 Resp 20 06/12/21 22:47 BP 144/61 H 06/12/21 22:47 Pulse Ox 94 06/12/21 22:47
--- NOTE | 2021-06-12 23:35 | ED.GENADUL_ITS ---
Discharge Plan Disposition Patient Disposition: [facility] INPATIENT Condition: Stable Discharge Details Chief Complaint: Cellulitis Clinical Impression: Cellulitis of foot, right, Acute kidney injury Primary Care Provider: Galen Rivera ED Provider: David Vaughn Home Meds and New Rx's Prescriptions: No Action methadone 10 MG/ML concentrate 225 mg PO DAILY RF: 0 clonazepam 1 MG tablet 1 mg PO DAILY PRN PRNRF: 0 metformin 500 mg tablet extended release 24 hr 2,000 mg PO DAILY RF: 0 levothyroxine 137 mcg Tablet 137 mcg PO DAILY RF: 0 gabapentin 800 mg Tablet 800 mg PO QID RF: 0 lisinopril 30 mg Tablet 40 mg PO DAILY RF: 0 Lantus Solostar U-100 Insulin 100 unit/mL (3 mL) Insulin Pen 40 unit SUBCUT QAM RF: 0 Lantus Solostar U-100 Insulin 100 unit/mL (3 mL) Insulin Pen 20 unit SUBCUT QPM RF: 0 Medical Decision Making 71-year-old male with a past medical history of diabetes, osteomyelitis in his right foot with subsequent amputation of the first and second toe, subsequently had a wound and cellulitis with sepsis on 05/16 with subsequent transfer [place] [facility] [place]. She was discharged from [facility] [place] 5 days ago with a wound VAC on his right foot as well as self administration of vancomycin at 1250 mg twice daily. Over the last 3 days the patient has noticed redness around his right foot extending and then traveling up from the site of infection/amputation. Wound care nurse today noted continued worsening of this, an elevated heart rate, no fever at home, recommended transfer to the ER. Aside for pain in the right foot, and the fever and chills the patient denies any other complaints. He has been self administering his vancomycin at 8 AM and 8 PM every day as directed. He denies any other complaints. No other modifying factors. Exam demonstrates notable evidence of cellulitis on the plantar aspect of the foot extending proximally towards the heel. Wound VAC does have some minimal drainage. Patient is tachycardic, but afebrile here. Initial lactate is 4. White count stable. Creatinine elevated at 2.3. Will start vancomycin and Zosyn, gently rehydrate, admit for cellulitis resistant to outpatient therapy. Discussed the case with Dr. Johnson. He agrees with the assessment and plan. I have extensively reviewed the treatment plan with the patient. I have addressed all patient concerns at this time. I have also discussed the plan with the admitting physician and they agree with the current assessment and plan and have agreed to assume responsibility for the patient. All parties demonstrate verbal understanding and agreement with our assessment and plan at this time. The documentation in this chart was dictated using [employer] dictation software. Please excuse any dictation errors. HPI General Date/Time Provider Initiated Documentation: 06/12/21 22:37 . HPI Narrative: 71-year-old male with a past medical history of diabetes, osteomyelitis in his right foot with subsequent amputation of the first and second toe, subsequently had a wound and cellulitis with sepsis on 05/16 with subsequent transfer to [facility] [place] for IV antibiotic management. She was discharged from [facility] [place] 5 days ago with a wound VAC on his right foot as well as self administration of vancomycin at 1250 mg twice daily. Over the last 3 days the patient has noticed redness around his right foot extending and then traveling up from the site of infection/amputation. Wound care nurse today noted continued worsening of this, an elevated heart rate, no fever at home, recommended transfer to the ER. Aside for pain in the right foot, and the fever and chills the patient denies any other complaints. He has been self administering his vancomycin at 8 AM and 8 PM every day as directed. He denies any other complaints. No other modifying factors. Related Data Home Medications Medication Instructions Recorded Confirmed clonazepam 1 mg PO DAILY PRN PRN 04/07/13 06/12/21 methadone 225 mg PO DAILY 04/07/13 06/12/21 metformin 500 mg tablet,extended 2,000 mg PO DAILY 01/15/19 06/12/21 release 24 hr Lantus Solostar U-100 Insulin 20 unit SUBCUT QPM 12/21/19 06/12/21 Lantus Solostar U-100 Insulin 40 unit SUBCUT QAM 12/21/19 06/12/21 gabapentin 800 mg PO QID 12/21/19 06/12/21 levothyroxine 137 mcg PO DAILY 12/21/19 06/12/21 lisinopril 40 mg PO DAILY 12/21/19 06/12/21 Allergies Allergy/AdvReac Type Severity Reaction Status Date / Time codeine AdvReac itching Unverified 06/22/21 20:46 and bloutchy naloxone HCl [From Narcan] AdvReac Unverified 05/16/21 20:46 pentazocine lactate AdvReac makes me Unverified 05/16/21 20:46 [From Erica] deathly ill Narcotic AdvReac H/O drug Uncoded 05/16/21 20:46 abuse narcotic antagonists AdvReac Uncoded 05/16/21 20:46 General Stated Complaint: Cellulitis ANNE: 3 Review of Systems All systems reviewed & are unremarkable except as noted in HPI and below PFS Medical History (Updated 06/12/21 @ 23:43 by David Vaughn DO) Anxiety Diabetes History of amputation of great toe Hypertension Substance abuse in remission Toe osteomyelitis, right Right great toe 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 3.ENT: Atraumatic external nose and ears. Moist MM. Neck: Symmetric, trachea midline, No thyromegaly. 4.CVS: +S1/S2, No murmurs or gallops. Peripheral pulses 2+ and equal in all extremities. Brisk capillary refill in all extremities. 5.RESP: Unlabored respiratory effort. Clear to auscultation bilaterally. No wheezes rales or rhonchi 6.GI: Soft, Nontender/Nondistended, No hepatosplenomegaly. No guarding or rebound. 7.MSK: Patient's right foot demonstrates amputation with wound VAC over top of the first and second digit previous locations. There is extending redness on the plantar surface of the foot, extending towards the heel and around the arch. It is warm and red and certainly asymmetric compared to the left foot. Sensation and pulses are otherwise intact. No calf tenderness. 8.Skin: Warm, Dry. No rashes or lesions. 9.Neuro: captain's assistant II-XII grossly intact. Sensation grossly intact, no focal neurologic deficits. 10.Psych: (AAO) x3. Appropriate mood and affect Course Vital Signs Vital signs: Vital Signs Temperature 36.5 C 06/12/21 22:47 Pulse 105 H 06/12/21 22:47 Respiratory Rate 20 06/12/21 22:47 Blood Pressure 144/61 H 06/12/21 22:47 Pulse Oximetry 94 06/12/21 22:47 Temperature 36.5 C 06/12/21 22:47 Temperature Source Temporal Artery Scan 06/12/21 22:47 Pulse 105 H 06/12/21 22:47 Respiratory Rate 20 06/12/21 22:47 Respiratory Effort 06/12/21 22:53 Blood Pressure 144/61 H 06/12/21 22:47 Blood Pressure Position Supine 06/12/21 22:47 Pulse Oximetry 94 06/12/21 22:47 Oxygen Delivery Method Room Air 06/12/21 22:47 Oxygen Flow Rate 0 06/12/21 22:47 Pain Level 0 06/12/21 22:47 Lab/Test Results Lab/Test Results: 06/12/21 23:15 Blood Blood Culture - Pending 06/12/21 23:02 Blood Blood Culture - Pending Laboratory Tests Range/Units 06/12/21 06/12/21 23:15 23:15 WBC (4.4-10.8) 10^3/uL 6.73 RBC (4.36-5.78) 10^6/uL 3.54 L Hgb (13.5-17.5) g/dL 10.6 L Hct (40.0-50.0) % 32.8 L MCV (80-95) fL 92.7 MCH (27.0-33.0) pg 29.9 MCHC (32.0-36.0) % 32.3 RDW (11.8-14.1) % 14.6 H Plt Count (130-400) 10^3/uL 255 MPV (8.0-11.0) fL 10.0 Immature Gran % 0.1 Neutrophils % 51.5 Lymphocytes % 24.2 Monocytes % 15.6 Eosinophils % 7.4 Basophils % 1.2 Nucleated RBC % % 0 Absolute Neutrophils (1.2-6.7) 10^3/uL 3.46 Absolute Lymphocytes (1.2-3.4) 10^3/uL 1.63 Absolute Monocytes (0.1-0.8) 10^3/uL 1.05 H Absolute Eosinophils (0.0-0.7) 10^3/uL 0.50 Absolute Basophils (0.0-0.2) 10^3/uL 0.08 VBG Lactate (0.6-1.4) mmol/L 4.0 H*
[2021-06-12 23:36] LABS: ALT 34 U/L (16-63); AST 39 U/L (15-37); Albumin 2.9 g/dL (3.4-5.0); Alkaline Phosphatase 108 U/L (46-116); Anion Gap 9.6 mmol/L (3-11); BUN 29 mg/dL (7-18); Bilirubin, Total 0.3 mg/dL (0.2-1.0); CO2 26.4 mmol/L (21.0-32.0); CREATININE 2.3 mg/dL (0.70-1.30); Calcium 8.7 mg/dL (8.5-10.1); Chloride 105 mmol/L (98-107); Estimated GFR 28.33 (mL/min/1.73m2); Glucose 196 mg/dL (74-106); Potassium 4.2 mmol/L (3.5-5.1); Sodium 141 mmol/L (136-145); Total Protein 7.1 g/dL (6.4-8.2)
[2021-06-12] MEDS: PIPERACILLIN/TAZO 3.375 GM in Normal Saline 50 ML IVPB (23:43)
[2021-06-12] MEDS: Normal Saline 500 ML IV (23:48)
[2021-06-13 00:15] VITALS: BP 120/61; PULSE 90; RESP 17; TEMP 36.8; O2SAT 93
[2021-06-13 00:16] LABS: Vancomycin, Trough 45.6 ug/mL (10.0-20.0)
--- NOTE | 2021-06-13 00:23 | DI.VRAD_ITS ---
PROCEDURE INFORMATION: Exam: XR Right Foot Exam date and time: 06/12/2021 11:03 PM Age: 71 years old Clinical indication: Pain; Prior surgery; Surgery date: <1 month; Surgery type: Right great toe amputation; Patient HX: Suspect osteo in distal foot TECHNIQUE: Imaging protocol: XR Right foot. Views: 3 or more views. COMPARISON: CT LOWER EXTREMITY RT WO 05/16/2021 9:19 PM FINDINGS: Bones/joints: There has been amputation of the 1st and 2nd rays at the level of the distal metatarsals. The bony stumps appear unremarkable. There is a wound suction device in place. There are chronic appearing old fracture deformities of the distal 3rd and 4th metatarsal bones. There is an ulcer along the lateral aspect of the 5th metatarsophalangeal joint associated with cortical erosion of the adjacent head of the 5th metatarsal suspicious for osteomyelitis. This erosion represents a change from the prior examination of 02/02/2020 and is not clearly demonstrated on the prior CT scan of 05/16/2021. There is chronic deformity of the base of the proximal 5th phalanx. Soft tissues: Soft tissue ulcer lateral to the 5th metatarsophalangeal joint. IMPRESSION: 1. Soft tissue ulcer on the lateral aspect of the right 5th metatarsophalangeal joint with cortical erosion of the head of the 5th metatarsal suspicious for osteomyelitis. 2. No gas is seen in the soft tissues at this time other than within the ulcer. Dictated and Authenticated by: Emiliano Darden MD. Ordering:CASSIE Hernandez MD
[2021-06-13 00:30] LABS: Source Nasal/Nares
[2021-06-13] MEDS: Normal Saline 500 ML IV (00:50)
[2021-06-13 01:22] LABS: COVID-19 PCR Negative (Negative)
[2021-06-13 01:27] VITALS: BP 120/64; PULSE 87; RESP 18; TEMP 36.4; O2SAT 99
[2021-06-13] MEDS: Normal Saline 1,000 ML 125 ML IV ×2 (02:18→20:27)
[2021-06-13] MEDS: PIPERACILLIN/TAZO 3.375 GM in Normal Saline 50 ML IVPB (06:02)
[2021-06-13 07:30] VITALS: BP 168/76; PULSE 62; RESP 16; TEMP 36.6; O2SAT 97
[2021-06-13 08:06] VITALS: BP 154/53; PULSE 92; RESP 18; O2SAT 92
[2021-06-13] MEDS: Gabapentin 800 MG TAB PO (08:13)
[2021-06-13] MEDS: Insulin Glargine 300 UNITS/3 ML PEN 20 UNITS SC ×2 (08:16→20:26)
[2021-06-13] MEDS: Insulin Aspart 300 UNITS/3 ML PEN SC ×3 (08:18→16:59)
[2021-06-13 08:52] LABS: BUN 25 mg/dL (7-18); Calcium 8.7 mg/dL (8.5-10.1); Chloride 108 mmol/L (98-107); Estimated GFR 33.29 (mL/min/1.73m2); Glucose 143 mg/dL (74-106); Sodium 143 mmol/L (136-145)
--- NOTE | 2021-06-13 08:59 | PGE_ITS ---
Date of Service Date of service: 06/13/21 Time of Service: 08:59 Assessment and Plan Assessment and plan (1) Osteomyelitis of second toe of left foot: Status: Acute Assessment and plan: continue zosyn hold vanco with trough 45 blood cultures pending podiatry consulted. (2) Acute kidney injury: Status: Acute Assessment and plan: renal dosing on medications IV fluids avoid nephrotoxic drugs (3) 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: Status: Chronic Assessment and plan: diabetic diet sliding scale coverage ac/hs continue lantus and monitor closely diabetic education (4) Substance abuse in remission: Status: Acute Assessment and plan: continue methadone (5) Hypertension: Status: Chronic Assessment and plan: blood pressure controlled, monitor (6) DVT prophylaxis: Status: Acute Assessment and plan: heparin (7) Discharge planning issues: Status: Acute Assessment and plan: case management following discussed with Dr Duff Subjective Subjective Patient reports: no new complaints, tolerating liquids well, tolerating a regular diet, voiding w/o difficulty, bowel movement and afebrile Interval history since last seen: erythema well within skin markings. denies p ain Exam Const General: cooperative, comfortable, disheveled, frail appearing and ill appearing chronically Nutritional Appearance: overweight Orientation: alert, awake and oriented x3 HENMT Head: normal to inspection, normocephalic and atraumatic Mouth: oral mucosae normal Resp Effort & Inspection: normal respiratory effort Cardio Rate: regular rate Rhythm: regular rhythm GI Inspection: normal to inspection Palpation: soft Auscultation: normal bowel sounds Skin Lesions: lesion noted (right great toe, wound vac on old amputation site, ) Rashes: rashes noted (surrounding erythema well within skin markings) Wounds: amputation site Neuro General: patient alert, patient awake, patient oriented x3 and no focal motor deficits Extrem General: full ROM Objective Last Vital Signs Temp 36.6 C 06/13/21 07:30 Pulse 92 H 06/13/21 08:06 Resp 18 06/13/21 08:06 BP 154/53 H 06/13/21 08:06 Pulse Ox 92 06/13/21 08:06 Laboratory Results - last 24 hr 06/12/21 06/12/21 06/12/21 23:15 23:15 23:15 WBC 6.73 RBC 3.54 L Hgb 10.6 L Hct 32.8 L MCV 92.7 MCH 29.9 MCHC 32.3 RDW 14.6 H Plt Count 255 MPV 10.0 Immature Gran % 0.1 Neutrophils % 51.5 Lymphocytes % 24.2 Monocytes % 15.6 Eosinophils % 7.4 Basophils % 1.2 Nucleated RBC % 0 Absolute Neutrophils 3.46 Absolute Lymphocytes 1.63 Absolute Monocytes 1.05 H Absolute Eosinophils 0.50 Absolute Basophils 0.08 VBG Lactate 4.0 H* Sodium 141 Potassium 4.2 Chloride 105 Carbon Dioxide 26.4 Anion Gap 9.6 BUN 29 H Creatinine 2.3 H Estimated GFR/1.73 m2 28.33 Glucose 196 H Calcium 8.7 Total Bilirubin 0.3 AST 39 H ALT 34 Alkaline Phosphatase 108 Total Protein 7.1 Albumin 2.9 L Vancomycin Trough COVID-19 Source SARS-CoV-2 (PCR) 06/12/21 06/13/21 06/13/21 23:15 00:17 08:00 WBC RBC Hgb Hct MCV MCH MCHC RDW Plt Count MPV Immature Gran % Neutrophils % Lymphocytes % Monocytes % Eosinophils % Basophils % Nucleated RBC % Absolute Neutrophils Absolute Lymphocytes Absolute Monocytes Absolute Eosinophils Absolute Basophils VBG Lactate Sodium 143 Potassium 4.0 Chloride 108 H Carbon Dioxide 27.0 Anion Gap 8.0 BUN 25 H Creatinine 2.0 H Estimated GFR/1.73 m2 33.29 Glucose 143 H Calcium 8.7 Total Bilirubin AST ALT Alkaline Phosphatase Total Protein Albumin Vancomycin Trough 45.6 H* COVID-19 Source Nasal/Nares SARS-CoV-2 (PCR) Negative
[2021-06-13] MEDS: Methadone Liquid 10 MG/ML 225 MG PO (10:18)
--- NOTE | 2021-06-13 16:52 | PDOC.CMIN ---
- If Service Date Differs Date of service: 06/13/21 Time of Service: 16:52 Care Management Initial Assess REASON FOR HOSPITALIZATION:: Diabetic Foot Infection PAST MEDICAL HISTORY/PAST SURGICAL HISTORY:: Anxiety. Diabetes. History of amputation of great toe. Hypertension. Substance abuse in remission. Toe osteomyelitis, right. Right great toe. 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. History of appendectomy. History of inguinal hernia repair. Status post amputation of toe. 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 DOS: 01/15/19 PREVIOUS FUNCTIONAL STATUS/SOCIAL/FAMILY SUPPORTS:: Darwin resides home with his dog Erin and his grandson. He has two children; a son and a daughter that also live close by. He lives in [place], [place] he is independent with ADL's and transportation. Darwin has attended [facility] for 20 years. Has patient been provided with info about the portal/API?: Yes Did the patient sign up for the portal?: No CODE STATUS:: Full Code INSURANCE COVERAGE / FINANCIAL ISSUES:: Medicare, Medicaid CURRENT HOME/COMMUNITY SERVICES/EQUIPMENT:: [facility] treatment. PRIMARY CARE PHYSICIAN:: Galen Rivera NP POTENTIAL DISCHARGE NEEDS:: Follow-up appointment scheduled prior to discharge with primary care provider PATIENT/FAMILY EDUCATION NEEDS:: Discharge education, limitations, follow-up plan of care, Ask Me Three and self-management. ANTICIPATED BARRIERS TO DISCHARGE:: None identified TRANSPORTATION:: Via private car with family at time of discharge PLAN:: Darwin will be discharged home when medically ready per provider. CM will continue to provide support discharge planning and disposition.
[2021-06-13 20:03] VITALS: BP 156/79; PULSE 92; RESP 20; TEMP 37; O2SAT 96
[2021-06-13] MEDS: Gabapentin 600 MG TAB PO (20:24)
[2021-06-13 23:05] VITALS: BP 171/79; PULSE 96; RESP 18; TEMP 36.5; O2SAT 94
--- NOTE | 2021-06-14 | DI.US_ITS ---
Exam(s) US RENAL EXAM: US RENAL CLINICAL HISTORY: renal failure TECHNIQUE: Ultrasound of both kidneys performed using standard protocol. COMPARISON: US Cardiac from 08/07/2019 FINDINGS: RIGHT KIDNEY: Measures 11 cm in length. No cysts evident. Normal cortical thickness and corticomedullary differenti ation .No solid masses No intrarenal calculi nor hydronephrosis. LEFT KIDNEY: Measures 11 cm in length. No cysts evident. Normal cortical thickness and corticomedullary different iaion. No solids masses. No intrarenal calculi nor hydonephrosis. URINARY BLADDER: Prevoid volume is 450 cc Postvoid volume is approximately 50 cc Patient voided 400 cc into the urinal. No evidence of bladder mass nor diverticuli. Ureterovesical jets: Both identified and appear symmetrical IMPRESSION: 1. No significant ultrasound findings in the kidneys. 2. DATA REPOSITORY:
[2021-06-14] MEDS: clonazePAM 1 MG TAB PO ×2 (02:10→23:55)
[2021-06-14] MEDS: Normal Saline 1,000 ML 125 ML IV ×3 (03:51→20:39)
[2021-06-14 06:40] LABS: ESR 50 mm/hr (0-20)
[2021-06-14 06:43] LABS: Abs Immature Grans 0.02 10^3/uL (0.0-0.06); Absolute Basophil Count 0.07 10^3/uL (0.0-0.2); Absolute Eosinophil Count 0.57 10^3/uL (0.0-0.7); Absolute Lymphocyte Count 1.49 10^3/uL (1.2-3.4); Absolute Monocyte Count 0.92 10^3/uL (0.1-0.8); Absolute Neutrophil Count 3.85 10^3/uL (1.2-6.7); Eosinophils % 8.2; HCT 33.1 % (40.0-50.0); HGB 10.8 g/dL (13.5-17.5); Immature Grans % 0.3; Lymphocytes % 21.5; MCH 29.6 pg (27.0-33.0); MCHC 32.6 % (32.0-36.0); MCV 90.7 fL (80-95); MPV 9.9 fL (8.0-11.0); Monocytes % 13.3; Neutrophils % 55.7; Nucleated RBC 0 %; Platelet Count 242 10^3/uL (130-400); RBC 3.65 10^6/uL (4.36-5.78); RDW-SD 47.3 fL; WBC 6.92 10^3/uL (4.4-10.8)
[2021-06-14 07:04] LABS: ALT 31 U/L (16-63); AST 33 U/L (15-37); Albumin 2.4 g/dL (3.4-5.0); Alkaline Phosphatase 101 U/L (46-116); Anion Gap 4.6 mmol/L (3-11); BUN 25 mg/dL (7-18); Bilirubin, Total 0.4 mg/dL (0.2-1.0); C-Reactive Protein 4.74 mg/dL (0.0-0.3); CO2 28.4 mmol/L (21.0-32.0); CREATININE 2.2 mg/dL (0.70-1.30); Calcium 8.4 mg/dL (8.5-10.1); Chloride 109 mmol/L (98-107); Estimated GFR 29.83 (mL/min/1.73m2); Glucose 164 mg/dL (74-106); Potassium 4.3 mmol/L (3.5-5.1); Sodium 142 mmol/L (136-145); Total Protein 6.6 g/dL (6.4-8.2)
[2021-06-14 07:34] VITALS: BP 185/85; PULSE 92; RESP 18; TEMP 36.6; O2SAT 96
[2021-06-14] MEDS: Methadone Liquid 10 MG/ML 225 MG PO (08:23)
[2021-06-14] MEDS: Gabapentin 600 MG TAB PO ×2 (08:23→20:36)
[2021-06-14] MEDS: Insulin Glargine 300 UNITS/3 ML PEN 20 UNITS SC ×2 (08:24→20:37)
[2021-06-14] MEDS: Insulin Aspart 300 UNITS/3 ML PEN SC ×3 (08:25→17:13)
--- NOTE | 2021-06-14 11:51 | W.PM.PROGNOT ---
Date of Service Date of service: 06/14/21 Time of Service: 11:51 Assessment and Plan Assessment and plan (1) Osteomyelitis of second toe of left foot: Status: Acute Assessment and plan: continue zosyn continue to hold vanco with trough 45 blood cultures pending podiatry consulted. (2) Acute kidney injury: Status: Acute Assessment and plan: renal dosing on medications IV fluids avoid nephrotoxic drugs renal ultrasound (3) 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: Status: Chronic Assessment and plan: diabetic diet sliding scale coverage ac/hs continue lantus and monitor closely diabetic education (4) Substance abuse in remission: Status: Acute Assessment and plan: continue methadone (5) Hypertension: Status: Chronic Assessment and plan: blood pressure controlled, monitor (6) DVT prophylaxis: Status: Acute Assessment and plan: heparin (7) Discharge planning issues: Status: Acute Assessment and plan: case management following discussed with Dr Duff Subjective Subjective Patient reports: no new complaints, feels better, tolerating liquids well, tolerating a regular diet, voiding w/o difficulty and afebrile Interval history since last seen: reports feeling improvement in his foot Exam Const General: cooperative, comfortable, frail appearing and ill appearing chronically Nutritional Appearance: overweight Orientation: alert, awake and oriented x3 HENMT Head: normal to inspection, normocephalic and atraumatic Mouth: oral mucosae normal Resp Effort & Inspection: normal respiratory effort Cardio Rate: regular rate Rhythm: regular rhythm GI Inspection: normal to inspection Palpation: soft Auscultation: normal bowel sounds Skin Lesions: lesion noted (right great toe, wound vac on old amputation site, ) Rashes: rashes noted (surrounding erythema well within skin markings) Wounds: amputation site Neuro General: patient alert, patient awake, patient oriented x3 and no focal motor deficits Extrem General: full ROM Objective Last Vital Signs Temp 36.6 C 06/14/21 07:34 Pulse 92 H 06/14/21 07:34 Resp 18 06/14/21 07:34 BP 185/85 H 06/14/21 07:34 Pulse Ox 96 06/14/21 07:34 Laboratory Results - last 24 hr 06/14/21 06/14/21 06/14/21 06:15 06:15 06:15 WBC 6.92 RBC 3.65 L Hgb 10.8 L Hct 33.1 L MCV 90.7 MCH 29.6 MCHC 32.6 RDW 14.0 Plt Count 242 MPV 9.9 Immature Gran % 0.3 Neutrophils % 55.7 Lymphocytes % 21.5 Monocytes % 13.3 Eosinophils % 8.2 Basophils % 1.0 Nucleated RBC % 0 Absolute Neutrophils 3.85 Absolute Lymphocytes 1.49 Absolute Monocytes 0.92 H Absolute Eosinophils 0.57 Absolute Basophils 0.07 ESR 50 H Sodium 142 Potassium 4.3 Chloride 109 H Carbon Dioxide 28.4 Anion Gap 4.6 BUN 25 H Creatinine 2.2 H Estimated GFR/1.73 m2 29.83 Glucose 164 H Calcium 8.4 L Total Bilirubin 0.4 AST 33 ALT 31 Alkaline Phosphatase 101 C-Reactive Protein 4.74 H Total Protein 6.6 Albumin 2.4 L
--- NOTE | 2021-06-14 12:00 | PDOC.CMPRO ---
Care Management Progress Note S/O: Ed continues to be closely monitored and treated, he was visiting with his daughter when CM attempted to meet with him. CM agreed to follow up tomorrow. Ed stated he did not anticipate discharging soon. CM continues to follow. A: 71 year old male admitted to [facility] 06/13/21 for Diabetic Foot Infection P: Awaiting blood cultures and podiatry consult to determine course of treatment including possible skilled nursing IV ABX. CM continues to follow.
[2021-06-14 13:53] VITALS: BP 181/84
[2021-06-14 16:00] VITALS: BP 174/75; PULSE 90; RESP 18; TEMP 36.8; O2SAT 97
[2021-06-14 23:20] VITALS: BP 195/93; PULSE 97; RESP 18; TEMP 37.1; O2SAT 92
[2021-06-14 23:47] VITALS: BP 176/95
[2021-06-15] MEDS: Normal Saline 1,000 ML 125 ML IV (04:48)
[2021-06-15 06:45] LABS: Abs Immature Grans 0.02 10^3/uL (0.0-0.06); Absolute Basophil Count 0.07 10^3/uL (0.0-0.2); Absolute Eosinophil Count 0.54 10^3/uL (0.0-0.7); Absolute Lymphocyte Count 1.33 10^3/uL (1.2-3.4); Absolute Monocyte Count 0.89 10^3/uL (0.1-0.8); Absolute Neutrophil Count 3.89 10^3/uL (1.2-6.7); HCT 34.2 % (40.0-50.0); Immature Grans % 0.3; Lymphocytes % 19.7; MCH 29.2 pg (27.0-33.0); MCHC 32.2 % (32.0-36.0); MCV 90.7 fL (80-95); Monocytes % 13.2; Neutrophils % 57.8; Nucleated RBC 0 %; Platelet Count 246 10^3/uL (130-400); RBC 3.77 10^6/uL (4.36-5.78); RDW 14.2 % (11.8-14.1); RDW-SD 47.8 fL; WBC 6.74 10^3/uL (4.4-10.8)
[2021-06-15 07:01] LABS: Anion Gap 7.1 mmol/L (3-11); BUN 27 mg/dL (7-18); CO2 28.9 mmol/L (21.0-32.0); CREATININE 2.1 mg/dL (0.70-1.30); Calcium 8.5 mg/dL (8.5-10.1); Chloride 109 mmol/L (98-107); Estimated GFR 31.47 (mL/min/1.73m2); Glucose 177 mg/dL (74-106); Sodium 145 mmol/L (136-145)
[2021-06-15 07:44] VITALS: BP 183/83; PULSE 88; RESP 17; TEMP 36.8; O2SAT 96
[2021-06-15] MEDS: amLODIPine 5 MG TAB PO (09:22)
[2021-06-15] MEDS: Gabapentin 600 MG TAB PO ×2 (09:22→19:47)
[2021-06-15] MEDS: Insulin Glargine 300 UNITS/3 ML PEN 20 UNITS SC ×2 (09:23→19:49)
[2021-06-15] MEDS: Methadone Liquid 10 MG/ML 225 MG PO (09:25)
--- NOTE | 2021-06-15 11:00 | W.PM.PROGNOT ---
Date of Service Date of service: 06/15/21 Time of Service: 11:00 Assessment and Plan Assessment and plan (1) Osteomyelitis of toe of right foot: Status: Acute Assessment and plan: s/p amputation right first and second toe on 05/17 at [facility]. continue wound vac to amputation site, wound care consulted. was found to have bacteremia with 4/4 bottles positive for MRSA taken on 05/16/2021 here prior to transfer. ID at [facility] consulted and recommendations were for 4 weeks of IV vancomycin as his repeat cultures cleared by 05/20/21. On zosyn day 3 add dapto to complete 4 week course, ? extend if blood cultures positive, if so will need ? SILVIANO, was not previously recommended by ID. cultures still pending with one tube positive for staph species, ? contaminant podiatry consulted but patient declines, will place surgical consult. 05/23 at [facility] [place] post op course complicated by plantar abscess requiring I&D, will add ultrasound to evaluate for re-accumulation of abscess. follow inflammatory markers. (2) MRSA bacteremia: Status: Acute Assessment and plan: first positive bottles 4/4 on 05/16/21 day vanco initiated cleared by 05/20/21 ID at [facility] consulted and recommendations for 4 weeks of IV vanco which he should complete on 06/19/21, and vanc trough 45 on 06/13 and found to be in renal failure so discontinued. Daptomycin started on 06/15/21 while awaiting final culture report from this admission. 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: Status: Chronic Assessment and plan: diabetic diet sliding scale coverage ac/hs continue lantus and monitor closely diabetic education (5) Substance abuse in remission: Status: Acute Assessment and plan: continue methadone (6) Hypertension: Status: Chronic Assessment and plan: blood pressure controlled, monitor (7) DVT prophylaxis: Status: Acute Assessment and plan: heparin (8) Discharge planning issues: Status: Acute Assessment and plan: case management following discussed with Dr Duff Subjective Subjective Patient reports: no new complaints, feels better, tolerating liquids well, tolerating a regular diet, voiding w/o difficulty, bowel movement and afebrile Exam Const General: cooperative, comfortable, disheveled, frail appearing and ill appearing chronically Nutritional Appearance: overweight Orientation: alert, awake and oriented x3 HENMT Head: normal to inspection, normocephalic and atraumatic Mouth: oral mucosae normal Resp Effort & Inspection: normal respiratory effort Cardio Rate: regular rate Rhythm: regular rhythm GI Inspection: normal to inspection Palpation: soft Auscultation: normal bowel sounds Skin Lesions: lesion noted (right great toe, wound vac on old amputation site, ) Rashes: rashes noted (surrounding erythema well within skin markings) Wounds: amputation site Neuro General: patient alert, patient awake, patient oriented x3 and no focal motor deficits Extrem General: full ROM Objective Last Vital Signs Temp 36.8 C 06/15/21 07:44 Pulse 88 06/15/21 07:44 Resp 17 06/15/21 07:44 BP 183/83 H 06/15/21 07:44 Pulse Ox 96 06/15/21 07:44 Laboratory Results - last 24 hr 06/15/21 06/15/21 06:22 06:22 WBC 6.74 RBC 3.77 L Hgb 11.0 L Hct 34.2 L MCV 90.7 MCH 29.2 MCHC 32.2 RDW 14.2 H Plt Count 246 MPV 10.0 Immature Gran % 0.3 Neutrophils % 57.8 Lymphocytes % 19.7 Monocytes % 13.2 Eosinophils % 8.0 Basophils % 1.0 Nucleated RBC % 0 Absolute Neutrophils 3.89 Absolute Lymphocytes 1.33 Absolute Monocytes 0.89 H Absolute Eosinophils 0.54 Absolute Basophils 0.07 Sodium 145 Potassium 4.0 Chloride 109 H Carbon Dioxide 28.9 Anion Gap 7.1 BUN 27 H Creatinine 2.1 H Estimated GFR/1.73 m2 31.47 Glucose 177 H Calcium 8.5
[2021-06-15] MEDS: Insulin Aspart 300 UNITS/3 ML PEN SC ×2 (12:11→17:03)
[2021-06-15] MEDS: DAPTOmycin 500 MG in Normal Saline 50 ML 100 MG IVPB (12:19)
--- NOTE | 2021-06-15 13:46 | PDOC.CMPRO ---
Care Management Progress Note S/O: Ed continues to be closely monitored and treated, awaiting updates from surgical team. Ed reported the IV ABX he returned home on effected his renal function, so his home medications are being adjusted as well as IV ABX at this time. He talked in length about his grandchildren and children and his life. He reported having enough to keep him busy at this time. CM continues to follow. A: 71 year old male admitted to [facility] 06/13/21 for Diabetic Foot Infection P: Awaiting blood cultures and podiatry consult to determine course of treatment including possible terminal clerk IV ABX. Anticipate new orders through [facility] and resumption of home health orders. CM continues to follow.
[2021-06-15 15:40] VITALS: BP 180/80; PULSE 85; RESP 17; TEMP 36.5; O2SAT 96
[2021-06-15] MEDS: Heparin 5,000 UNITS/ML VIAL 5000 UNITS SC (19:50)
--- NOTE | 2021-06-16 | DI.US_ITS ---
Exam(s) US SOFT TISSUE EXTREMITY EXAM: US SOFT TISSUE EXTREMITY CLINICAL HISTORY: history of drainable abscess right plantar area. TECHNIQUE: Ultrasound was performed using standard protocol. COMPARISON: CR,XR XR FOOT RT COMPLETE from 06/12/2021 CR,XR XR FOOT RT COMPLETE from 06/12/2021 FINDINGS: Sonographic assessment utilizing grayscale and color Doppler imaging was performed and targeted to th e area of clinical concern. The patient is recently status post amputation of the 1st and 2nd toes the level of the metatarsal he ads. A vacuum drainage is present at the amputation site. There is no discrete fluid collection. T here is soft tissue edema. There are multiple echogenic foci which could represent air bubbles. IMPRESSION: No drainable abscess or fluid collection. Mobile echogenic foci likely represent air bubbles. DATA REPOSITORY:
[2021-06-16] MEDS: clonazePAM 1 MG TAB PO ×2 (00:08→21:44)
[2021-06-16 00:36] VITALS: BP 173/83; PULSE 88; RESP 17; TEMP 36.7; O2SAT 96
[2021-06-16] MEDS: Normal Saline 1,000 ML 125 ML IV (02:57)
[2021-06-16] MEDS: Acetaminophen 500 MG TAB 1000 MG PO ×2 (06:24→18:12)
[2021-06-16 06:45] LABS: Abs Immature Grans 0.02 10^3/uL (0.0-0.06); Absolute Basophil Count 0.07 10^3/uL (0.0-0.2); Absolute Eosinophil Count 0.55 10^3/uL (0.0-0.7); Absolute Lymphocyte Count 1.62 10^3/uL (1.2-3.4); Absolute Monocyte Count 0.86 10^3/uL (0.1-0.8); Absolute Neutrophil Count 3.64 10^3/uL (1.2-6.7); Eosinophils % 8.1; HCT 34.1 % (40.0-50.0); HGB 11.1 g/dL (13.5-17.5); Immature Grans % 0.3; MCH 29.5 pg (27.0-33.0); MCHC 32.6 % (32.0-36.0); MCV 90.7 fL (80-95); MPV 9.4 fL (8.0-11.0); Monocytes % 12.7; Neutrophils % 53.9; Nucleated RBC 0 %; Platelet Count 234 10^3/uL (130-400); RBC 3.76 10^6/uL (4.36-5.78); RDW-SD 46.7 fL; WBC 6.76 10^3/uL (4.4-10.8)
[2021-06-16 06:57] LABS: Anion Gap 4.7 mmol/L (3-11); BUN 28 mg/dL (7-18); CO2 30.3 mmol/L (21.0-32.0); CREATININE 2.1 mg/dL (0.70-1.30); Calcium 8.4 mg/dL (8.5-10.1); Chloride 110 mmol/L (98-107); Estimated GFR 31.47 (mL/min/1.73m2); Glucose 149 mg/dL (74-106); Potassium 3.9 mmol/L (3.5-5.1); Sodium 145 mmol/L (136-145)
[2021-06-16 07:31] VITALS: BP 171/74; PULSE 86; RESP 20; TEMP 36.7; O2SAT 95
[2021-06-16] MEDS: Gabapentin 600 MG TAB PO ×2 (07:54→21:45)
[2021-06-16] MEDS: Heparin 5,000 UNITS/ML VIAL 5000 UNITS SC ×2 (07:54→21:47)
[2021-06-16] MEDS: amLODIPine 5 MG TAB PO (07:54)
[2021-06-16] MEDS: Methadone Liquid 10 MG/ML 225 MG PO (07:55)
[2021-06-16] MEDS: Insulin Aspart 300 UNITS/3 ML PEN SC ×3 (07:56→17:10)
[2021-06-16] MEDS: Insulin Glargine 300 UNITS/3 ML PEN 20 UNITS SC ×2 (07:56→21:45)
--- NOTE | 2021-06-16 10:22 | PGE_ITS ---
Date of Service Date of service: 06/16/21 Time of Service: : Assessment and Plan Assessment and plan (1) Osteomyelitis of toe of right foot: Status: Acute Assessment and plan: s/p amputation right first and second toe on 05/[address] [facility]. continue wound vac to amputation site, wound care consulted. was found to have bacteremia with 4/4 bottles positive for MRSA taken on 05/16/2021 here prior to transfer. ID at [facility] was consulted and recommendations were for 4 weeks of IV vancomycin as his repeat cultures cleared by 05/20/21. On zosyn day 3 add dapto to complete 4 week course, ? extend if blood cultures positive, if so will need ? SILVIANO, was not previously recommended by ID. cultures still pending with one tube positive for staph species, ? contaminant podiatry consulted but patient declines, will place surgical consult. 05/23 at [facility] post op course complicated by plantar abscess requiring I&D, will add ultrasound to evaluate for re-accumulation of abscess. follow inflammatory markers. (2) MRSA bacteremia: Status: Acute Assessment and plan: first positive bottles 4/4 on 05/16/21 day vanco initiated cleared by 05/20/21 ID at [facility] consulted and recommendations for 4 weeks of IV vanco which he should complete on 06/19/21, and vanc trough 45 on 06/13 and found to be in renal failure so discontinued. Daptomycin started on 06/15/21 while awaiting final culture report from this admission. 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: Status: Chronic Assessment and plan: diabetic diet sliding scale coverage ac/hs continue lantus and monitor closely diabetic education (5) Substance abuse in remission: Status: Acute Assessment and plan: continue methadone (6) Hypertension: Status: Chronic Assessment and plan: blood pressure controlled, monitor (7) DVT prophylaxis: Status: Acute Assessment and plan: heparin (8) Discharge planning issues: Status: Acute Assessment and plan: case management following discussed with Dr Duff Subjective Subjective Patient reports: no new complaints, tolerating liquids well, tolerating a regular diet, voiding w/o difficulty, bowel movement and afebrile; denies shortness of breath Exam Const General: cooperative, comfortable, disheveled, frail appearing and ill appearing chronically Nutritional Appearance: overweight Orientation: alert, awake and oriented x3 HENMT Head: normal to inspection, normocephalic and atraumatic Mouth: oral mucosae normal Resp Effort & Inspection: normal respiratory effort Cardio Rate: regular rate Rhythm: regular rhythm GI Inspection: normal to inspection Palpation: soft Auscultation: normal bowel sounds Skin Lesions: lesion noted (right great toe, wound vac on old amputation site, ) Rashes: rashes noted (surrounding erythema well within skin markings) Wounds: amputation site Neuro General: patient alert, patient awake, patient oriented x3 and no focal motor deficits Extrem General: full ROM Objective Last Vital Signs Temp 36.7 C 06/16/21 07:31 Pulse 86 06/16/21 07:31 Resp 20 06/16/21 07:31 BP 171/74 H 06/16/21 07:31 Pulse Ox 95 06/16/21 07:31 Laboratory Results - last 24 hr 06/16/21 06/16/21 06:30 06:30 WBC 6.76 RBC 3.76 L Hgb 11.1 L Hct 34.1 L MCV 90.7 MCH 29.5 MCHC 32.6 RDW 14.0 Plt Count 234 MPV 9.4 Immature Gran % 0.3 Neutrophils % 53.9 Lymphocytes % 24.0 Monocytes % 12.7 Eosinophils % 8.1 Basophils % 1.0 Nucleated RBC % 0 Absolute Neutrophils 3.64 Absolute Lymphocytes 1.62 Absolute Monocytes 0.86 H Absolute Eosinophils 0.55 Absolute Basophils 0.07 Sodium 145 Potassium 3.9 Chloride 110 H Carbon Dioxide 30.3 Anion Gap 4.7 BUN 28 H Creatinine 2.1 H Estimated GFR/1.73 m2 31.47 Glucose 149 H Calcium 8.4 L
[2021-06-16] MEDS: DAPTOmycin 500 MG in Normal Saline 50 ML 100 MG IVPB (12:11)
--- NOTE | 2021-06-16 12:25 | PDOC.CMPRO ---
Care Management Progress Note S/O: Ed continues to be closely monitored and treated, and remains pleasant in interaction. CM inquired as to if a family member would be willing to bring his wound vac supplies to [facility], he reported he son would bring them later today. CM continues to follow. A: 71 year old male admitted to [facility] 06/13/21 for Diabetic Foot Infection P: Awaiting blood cultures and podiatry consult to determine course of treatment including possible retirement IV ABX. Anticipate new orders through [facility] and resumption of home health orders. CM continues to follow.
[2021-06-16 13:48] LABS: ESR 59 mm/hr (0-20)
[2021-06-16 14:05] LABS: C-Reactive Protein 3.02 mg/dL (0.0-0.3)
--- NOTE | 2021-06-16 14:52 | PHA.REVIEW ---
Pharmacy Admission Review - Admission Clinical Review (Last Reviewed 06/12/21 @ 23:51 by Dwayne Johnson MD) Osteomyelitis of toe of right foot (Acute) MRSA bacteremia (Acute) Discharge planning issues (Acute) DVT prophylaxis (Acute) Diabetic infection of right foot (Acute) Cellulitis of foot, right (Acute) Acute kidney injury (Acute) Osteomyelitis of second toe of left foot (Acute) Substance abuse in remission (Acute) codeine Adverse Reaction (Unverified 05/16/21 20:46) itching and bloutchy naloxone HCl [From Narcan] Adverse Reaction (Unverified 05/16/21 20:46) pentazocine lactate [From Talwin] Adverse Reaction (Unverified 05/16/21 20:46) makes me deathly ill Narcotic Adverse Reaction (Uncoded 05/16/21 20:46) H/O drug abuse narcotic antagonists Adverse Reaction (Uncoded 05/16/21 20:46) Resuscitation Status Full Code Height 6 ft 3 in Weight 95.254 kg - Renal Dosing Renal Dosing: BUN 28 mg/dL (7-18) H 06/16/21 06:30 Creatinine 2.1 mg/dL (0.70-1.30) H 06/16/21 06:30 Medications needing adjustments: Reviewed List of meds needing interventions: eCrCl is 41.7 ml/min using adj bw -- all orders are appropriately dosed (ZOSYN, DAPTO, GABAPENTIN) - Anticoagulation Anticoagulation: Hgb 11.1 g/dL (13.5-17.5) L 06/16/21 06:30 Hct 34.1 % (40.0-50.0) L 06/16/21 06:30 Plt Count 234 10^3/uL (130-400) 06/16/21 06:30 Creatinine 2.1 mg/dL (0.70-1.30) H 06/16/21 06:30 DVT Prophylaxis: Reviewed Medications: Heparin - Opiate Usage Evaluate Pain Scale/Pains Meds: Reviewed Scheduled Bowel Reg ordered if on Opiates?: No (last bm 06/14, will pg ) - Relevant Labs ESR 59 mm/hr (0-20) H 06/16/21 06:30 Sodium 145 mmol/L (136-145) 06/16/21 06:30 Potassium 3.9 mmol/L (3.5-5.1) 06/16/21 06:30 Chloride 110 mmol/L (98-107) H 06/16/21 06:30 C-Reactive Protein 3.02 mg/dL (0.0-0.3) H 06/16/21 06:30 Electrolytes, C-Reactive P, ESR: Reviewed - DM Control DM Control: Glucose 149 mg/dL (74-106) H 06/16/21 06:30 Finger Stick Blood Glucose 195 Finger Stick Blood Glucose 195 Finger Stick Blood Glucose 195 Finger Stick Blood Glucose 149 Finger Stick Blood Glucose 149 Finger Stick Blood Glucose 149 Finger Stick Blood Glucose 149 Insulin Dosing: Reviewed (glargine 20u BID, aspart per SS) - Heart Failure/TN EF%, LEX's, B-Blockers, Diuretics: Reviewed - BP Control BP Control: Blood Pressure 171/74 If elevated: Reviewed - Qtc Review If Elevated: N/A List meds needing interventions: not measured but suspect it could be prolonged due to high dose of methadone -- watch for add'n of QT prolonging meds - IV to PO Switch IV Medications: Reviewed - Home Meds Home Med List reviewed: Intervened Relevent Home Meds Not ordered & why?: lisinopril (becky), jardiance (insulin ordered/non-form), metformin (SCr is too high); of note: lovastatin is newly prescribed on 06/12/21 but it was documented as discontinued by RN doing the med rec... - Current meds Current Medication Order Review: Reviewed (Daptomycin has been added to Zosyn (day 4) to complete course 4 week course of Vanco recommended by [facility] ID that was started on 05/20 (BECKY likely due to Vanco so he has been switched to dapto for remainder of tx)) - Comments Comments/Follow Ups: Continue to monitor kidney function closely as he is borderline for adjustments of both Daptomycin and Zosyn
[2021-06-16] MEDS: Bacitracin 1 PACKET (19:19)
[2021-06-16 19:28] VITALS: BP 185/89; PULSE 108; RESP 18; TEMP 37.7; O2SAT 95
[2021-06-16 19:35] VITALS: BP 198/88
[2021-06-16 23:29] VITALS: BP 191/84; PULSE 97; RESP 18; TEMP 36.5; O2SAT 93
--- NOTE | 2021-06-17 | DI.CT_ITS ---
Exam(s) CT LOWER EXTREMITY RT WO EXAM: CT LOWER EXTREMITY RT WO CLINICAL HISTORY: r/o nectrotizing fascitis. TECHNIQUE: Imaging Protocol: Axial computed tomography images with coronal and sagittal reformatted images were created and reviewed. COMPARISON: CT CT LOWER EXTREMITY RT WO from 05/16/2021 FINDINGS: Bones: Since the prior examination the patient has undergone an amputation of the 1st and 2nd toes t o the level of the necks of the 1st and 2nd metatarsals. There is an old healed fracture of the 3rd metatarsal noted. Bony alignment is satisfactory. No lytic or sclerotic lesions are identified. Soft Tissues: There is a drain in place. The tip of the drain is seen at the distal stump of the am putation. There is a subcutaneous fluid and gas collection with a thick wall along the plantar aspec t of the foot superficial to the 2nd and 3rd metatarsals. It extends to the level of the tip of the suction drain. It measures 10 cm x 2.7 cm x 1.3 cm. It lies superficial to the plantar fascia. The re is also diffuse cellulitis about the foot. IMPRESSION: 1. Interval amputation of the right 1st and 2nd toes to the level of the necks of the 1st and 2nd met atarsals. 2. Subcutaneous fluid collection along the plantar surface of the foot suspicious for an abscess. 3. Suction drain in place. RADIATION DOSE DELIVERED: 349.65mGy.cm Total DLP 349.65mGy.cm Total DLP DATA REPOSITORY: All CT scans at this facility are submitted to the National Radiology Data Registry (NRDR) Dose Index Registry (DIR) with the [employer] (ACR). RADIATION OPTIMIZATION: All CT scans at this facility use at least one of these dose optimization te chniques: automated exposure control; mA and/or kV adjustment per patient size (includes targeted exa ms where dose is matched to clinical indication); or iterative reconstruction.
[2021-06-17 07:32] VITALS: BP 186/84; PULSE 90; RESP 18; TEMP 36.5; O2SAT 94
[2021-06-17] MEDS: Heparin 5,000 UNITS/ML VIAL 5000 UNITS SC (08:09)
[2021-06-17] MEDS: Acetaminophen 500 MG TAB 1000 MG PO (08:10)
[2021-06-17] MEDS: Gabapentin 600 MG TAB PO (08:10)
[2021-06-17] MEDS: amLODIPine 5 MG TAB PO (08:11)
[2021-06-17] MEDS: Insulin Glargine 300 UNITS/3 ML PEN 20 UNITS SC (08:11)
[2021-06-17] MEDS: Methadone Liquid 10 MG/ML 225 MG PO (08:12)
--- NOTE | 2021-06-17 10:36 | DI.VRAD_ITS ---
PROCEDURE INFORMATION: Exam: CT Right Lower Extremity Without Contrast Exam date and time: 06/17/2021 8:51 AM Age: 71 years old Clinical indication: Edema and swelling, leg or foot; Yes, it is localized; Prior surgery; Surgery date: 1-6 months; Surgery type: Amputation of 1st and 2nd phalange - right foot. ; Patient HX: Diabetic, redness and swelling of right foot post-op. Drain in place TECHNIQUE: Imaging protocol: CT of the Right lower extremity without contrast was performed. Radiation optimization: All CT scans at this facility use at least one of these dose optimization techniques: automated exposure control; mA and/or kV adjustment per patient size (includes targeted exams where dose is matched to clinical indication); or iterative reconstruction. COMPARISON: CT LOWER EXTREMITY RT WO 05/16/2021 9:19 PM FINDINGS: Tubes, catheters and devices: Suction drain in place at the distal stump of the amputation. Tubular tract of subcutaneous fluid and gas with the thick wall extends from the suction drain along the plantar aspect of the foot, extending in and anterior to posterior orientation from the 2nd metatarsal stump toward the level of the base of the 2nd and 3rd metatarsals. This is likely an abscess. It measures approximately 10 cm by 2.7 cm by 1.3 cm in AP, transverse, and craniocaudad dimension and is along superficial aspect of the plantar fascia and flexor retinaculum. Diffuse cellulitis, especially about the medial aspect of the forefoot and amputation site. Bones/joints: Amputation of the right 1st and 2nd toes through the necks of the metatarsals. Old fracture neck of the 3rd metatarsal. Soft tissues: See Tubes, catheters and devices finding. IMPRESSION: 1. Plantar subcutaneous fluid collection suspicious for an abscess extending from the amputation site of the 1st and 2nd toes approximately to the level of the base of the metatarsals. 2. Amputated 1st and 2nd toes through the necks of the metatarsals 3. Suction drain in place Dictated and Authenticated by: Jamaica Scott MD. Ordering:MIO Pacheco MD
[2021-06-17] MEDS: DAPTOmycin 500 MG in Normal Saline 50 ML 100 MG IVPB (12:07)
[2021-06-17] MEDS: Insulin Aspart 300 UNITS/3 ML PEN SC (12:08)
--- NOTE | 2021-06-17 13:11 | W.PM.PROGNOT ---
Date of Service Date of service: 06/17/21 Time of Service: 13:12 Assessment and Plan Assessment and plan (1) Osteomyelitis of toe of right foot: Start date: 06/17/21 Start time: 13:30 Status: Acute Assessment and plan: s/p amputation right first and second toe on 05/17 at [facility]. continue wound vac to amputation site, wound care consulted. was found to have bacteremia with 4/4 bottles positive for MRSA taken on 05/16/2021 here prior to transfer. U/S ordered 06/13 revealing no drainable abscess or fluid collection. Mobile echogenic foci likely represent air bubbles. CT scan ordered today; podiatry consulted not available at this time, surgery consulted, unable to do without contrast due to creatinine. (2) MRSA bacteremia: Start date: 06/17/21 Start time: 13:49 Status: Acute Assessment and plan: 06/12 and 06/14 with cultures positive for staph epi, repeat cultres pending. PICC dcd, awaiting sensitivities at this time. Continue dapto and zosyn. 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: Start date: 06/17/21 Start time: 13:55 Status: Chronic Assessment and plan: diabetic diet sliding scale coverage ac/hs continue lantus and monitor closely diabetic education will check A1c (5) Substance abuse in remission: Start date: 06/17/21 Start time: 13:57 Status: Acute Assessment and plan: continue methadone (6) Hypertension: Start date: 06/17/21 Start time: 13:57 Status: Chronic Assessment and plan: blood pressure controlled, monitor Qualifiers: Hypertension type: primary hypertension Qualified Code(s): I10 - Essential (primary) hypertension (7) DVT prophylaxis: Start date: 06/17/21 Start time: 13:58 Status: Acute Assessment and plan: heparin (8) Discharge planning issues: Start date: 06/17/21 Start time: 13:58 Status: Acute Assessment and plan: case management following discussed with Dr Glynn Subjective Subjective Patient reports: feels better Interval history since last seen: CT scan ordered revealing: Other andrews patient feeling well. Wound is improving around margins, unable to get in touch with Dr. Zhao therefore will consult Dr. Gonzalez for drainage of abscess. IMPRESSION: 1. Interval amputation of the right 1st and 2nd toes to the level of the necks of the 1st and 2nd metatarsals. 2. Subcutaneous fluid collection along the plantar surface of the foot suspicious for an abscess. 3. Suction drain in place. Exam Const General: cooperative, comfortable, disheveled, frail appearing and ill appearing chronically Nutritional Appearance: overweight Orientation: alert, awake and oriented x3 HENUT Head: normal to inspection, normocephalic and atraumatic Mouth: oral mucosae normal Resp Effort & Inspection: normal respiratory effort Auscultation: clear to auscultation bilaterally Cardio Rate: regular rate Rhythm: regular rhythm GI Inspection: normal to inspection Palpation: soft Auscultation: normal bowel sounds Skin Lesions: lesion noted (right great toe, wound vac on old amputation site, ) Rashes: rashes noted (surrounding erythema well within skin markings improving from margins ) Wounds: amputation site Neuro General: patient alert, patient awake, patient oriented x3 and no focal motor deficits Extrem General: full ROM Objective Last Vital Signs Temp 36.5 C 06/17/21 07:32 Pulse 90 06/17/21 07:32 Resp 18 06/17/21 07:32 BP 186/84 H 06/17/21 07:32 Pulse Ox 94 06/17/21 07:32 Laboratory Results - last 24 hr 06/16/21 06/16/21 06:30 06:30 ESR 59 H C-Reactive Protein 3.02 H
[2021-06-17] MEDS: Normal Saline 1,000 ML 100 ML IV (14:29)
[2021-06-17 15:00] LABS: Lactate 2.5 mmol/L (0.6-1.4)
[2021-06-17 15:02] VITALS: BP 177/80; PULSE 92; RESP 17; TEMP 36.8; O2SAT 95
--- NOTE | 2021-06-17 16:08 | DSE_ITS ---
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: Status: Chronic (5) Substance abuse in remission: Status: Acute (6) Hypertension: Status: Chronic (7) DVT prophylaxis: Status: Acute (8) Discharge planning issues: Status: Acute Discharge Plan Disposition Patient Disposition: AGAINST MEDICAL ADVICE Condition: Stable Discharge Details Reason For Visit: Diabetic Foot Infection Admit Date/Time: 06/13/21 00:05 Admit Provider: Dwayne Johnson Attending Provider: Dwayne Johnson Primary Care Provider: Galen Rivera Hospital Course Hospital Course: Surgery felt patient would be better off at facility where initial surgery was done, however patient refused to [place] [facility] after being accepted, he wanted to leave [facility]. He Wants to go to hospital in [place]. Therefore he signed out AMA discussed that he will likely need his foot completely amputated and risks of leaving [facility] and started to cry and stated he wanted the paperwork. Home Meds and New Rx's Prescriptions: No Action methadone 10 MG/ML concentrate 225 mg PO DAILY RF: 0 clonazepam 1 MG tablet 1 mg PO DAILY PRN PRNRF: 0 metformin 500 mg tablet extended release 24 hr 2,000 mg PO DAILY RF: 0 lisinopril 40 mg tablet 40 mg PO DAILY RF: 0 Jardiance 10 mg tablet 10 mg PO DAILY RF: 0 levothyroxine 137 mcg Tablet 137 mcg PO DAILY RF: 0 gabapentin 800 mg Tablet 800 mg PO QID RF: 0 Lantus Solostar U-100 Insulin 100 unit/mL (3 mL) Insulin Pen 20 unit SUBCUT QAM RF: 0 Lantus Solostar U-100 Insulin 100 unit/mL (3 mL) Insulin Pen 40 unit SUBCUT QPM RF: 0 DS: Summary Time Spent with Patient providing and/or coordinating discharge services: Less than 30 minutes Status at Discharge Functional status at discharge: independent ambulation Overall status at discharge: patient is not back to baseline Mental Status: mental status grossly normal Speech and Movement: speech and movement normal Mood: anxious mood Affect: other Exam Psych Mental Status: mental status grossly normal Speech and Movement: speech and movement normal Mood: anxious mood Affect: other DS: Data Vitals/I&O Vitals and I&O: Vital Signs Temperature 36.8 C 06/17/21 15:02 Temperature Source Temporal Artery Scan 06/17/21 15:02 Pulse 92 H 06/17/21 15:02 Pulse Rhythm Regular 06/17/21 12:56 Respiratory Rate 17 06/17/21 15:02 Respiratory Effort Non-Labored 06/17/21 12:56 Respiratory Depth Normal 06/17/21 12:56 Respiratory Pattern Normal 06/17/21 12:56 Blood Pressure 177/80 H 06/17/21 15:02 Blood Pressure Position Supine 06/12/21 22:47 Pulse Oximetry 95 06/17/21 15:02 Oxygen Delivery Method Room Air 06/17/21 15:02 Oxygen Flow Rate 0 06/17/21 15:02 Pain Level 3 06/17/21 15:02 Comment 06/16/21 19:28 Intake & Output 06/16/21 06/17/21 06/17/21 23:59 11:59 23:59 Intake Total 700 / 1440 550 / 550 Output Total 2575 / 3375 2200 / 2200 Balance -1875 / -1935 -1650 / -1650 Intake: IV 160 / 260 100 / 100 Oral 540 / 1180 450 / 450 Output: Urine 2575 / 3375 2200 / 2200 Other: Urine Color Yellow Yellow Urine Appearance Clear Clear Clear Urine Odor None None Comment 575 Voiding Methods Urinal Urinal Data Completed and Pending Labs on day of discharge: Labs from last 24 hours 06/17/21 14:50 VBG Lactate 2.5 H* 06/17/21 08:50 Blood Blood Culture - Pending 06/17/21 08:40 Blood Blood Culture - Pending Preliminary micro results at discharge 06/14/21 09:56 Blood Culture - Preliminary Blood NO GROWTH 72 HOURS 06/14/21 09:52 Blood Culture - Preliminary Blood Staphylococcus Epidermidis 06/17/21 08:50 Blood Culture - Pending Blood 06/17/21 08:40 Blood Culture - Pending Blood 06/12/21 23:40 Blood Culture - Preliminary Blood NO GROWTH 96 HOURS 06/12/21 23:15 Blood Culture - Preliminary Blood Staphylococcus Epidermidis [facility] Medical History (Updated 06/17/21 @ 13:57 by Tara Hyde NP) Anxiety Diabetes History of amputation of great toe Hypertension Substance abuse in remission Toe osteomyelitis, right Right great toe 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
--- NOTE | 2021-06-17 22:50 | NUR.NOTE ---
Nursing Note: Requested documents requested by [facility] [place] and faxed to [facility] provider Luisa Livingston. Patient signed consent received via fax.
--- NOTE | 2021-06-21 07:06 | NUR.NOTE ---
Nursing Note: 06/16/21- Received a wound consult for this patient. Spoke with Dr. Duff regarding course of care. Pt refused Podiatry per report. stated that there was a surgical consult in to see about debridement for his foot wound. I recommended taking off wound vac if there was too much slough and placing a wet to dry dressing over the wound while waiting for the surgical consult if he felt like it was too much slough for the wound vac. Dr. Duff stated that I could touch base with Chela Hyde NP on Saturday for further continuation of consult if needed. Will follow up 06/19/21.
== END 2021-06-17 16:18 | disposition left against medical advice (07) | DRG 638 ==
LOC: ER 06-13 00:42 → MS 06-13 01:10
PROVIDERS: Nurse Practitioner Acute Care; Nurse Practitioner Family; Admitting Provider General Practice; Emergency Provider Student in an Organized Health Care Education/Training Program; PCP Nurse Practitioner Family; Visit Provider General Practice
DX: E11.628 Type 2 diabetes mellitus with other skin complications (principal); L03.115 Cellulitis of right lower limb; E87.2 Acidosis; M86.8X7 Other osteomyelitis, ankle and foot; R78.81 Bacteremia; N17.9 Acute kidney failure, unspecified; F41.9 Anxiety disorder, unspecified; I10 Essential (primary) hypertension; E11.42 Type 2 diabetes mellitus with diabetic polyneuropathy; E11.65 Type 2 diabetes mellitus with hyperglycemia; F17.290 Nicotine dependence, other tobacco product, uncomplicated; F19.11 Other psychoactive substance abuse, in remission; Z20.822 Contact with and (suspected) exposure to COVID-19; B95.62 Methicillin resistant Staphylococcus aureus infection as the cause of diseases classified elsewhere; Z89.411 Acquired absence of right great toe; Z89.421 Acquired absence of other right toe(s)
CPT/HCPCS: 36410; 36415; 76770; 76881; 80048; 80053; 85652; 87040; 87077; 87081; 87635; 96361; 96365; 99285; 73630; 73700; 80202; 83605; 85025; 86140; 87186; 99222; 99232; 99233; J0878; J1644; J2543

== ENCOUNTER 2021-06-26 15:05 | Outpatient (REF) | payer MEDICARE, MEDICAID, SELFPAY ==
[2021-06-26 17:29] LABS: Abs Immature Grans 0.04 10^3/uL (0.0-0.06); Absolute Basophil Count 0.11 10^3/uL (0.0-0.2); Absolute Eosinophil Count 0.62 10^3/uL (0.0-0.7); Absolute Lymphocyte Count 1.71 10^3/uL (1.2-3.4); Absolute Monocyte Count 1.01 10^3/uL (0.1-0.8); Absolute Neutrophil Count 5.74 10^3/uL (1.2-6.7); Basophils % 1.2; Eosinophils % 6.7; HCT 35.5 % (40.0-50.0); HGB 10.8 g/dL (13.5-17.5); Immature Grans % 0.4; Lymphocytes % 18.5; MCH 28.5 pg (27.0-33.0); MCHC 30.4 % (32.0-36.0); MCV 93.7 fL (80-95); MPV 10.9 fL (8.0-11.0); Monocytes % 10.9; Neutrophils % 62.3; Nucleated RBC 0 %; Platelet Count 316 10^3/uL (130-400); RBC 3.79 10^6/uL (4.36-5.78); RDW 13.9 % (11.8-14.1); RDW-SD 47.7 fL; WBC 9.23 10^3/uL (4.4-10.8)
[2021-06-26 17:31] LABS: ALT 124 U/L (16-63); AST 111 U/L (15-37); Albumin 3.3 g/dL (3.4-5.0); Alkaline Phosphatase 150 U/L (46-116); Anion Gap 7.3 mmol/L (3-11); BUN 42 mg/dL (7-18); Bilirubin, Total 0.3 mg/dL (0.2-1.0); C-Reactive Protein 1.96 mg/dL (0.0-0.3); CO2 29.7 mmol/L (21.0-32.0); CREATININE 1.8 mg/dL (0.70-1.30); Calcium 9.3 mg/dL (8.5-10.1); Chloride 105 mmol/L (98-107); Glucose 191 mg/dL (74-106); Potassium 4.4 mmol/L (3.5-5.1); Sodium 142 mmol/L (136-145); Total Protein 7.5 g/dL (6.4-8.2)
[2021-06-26 22:28] LABS: Creatine Kinase 311 U/L (39-308)
== END 2021-06-26 15:06 | disposition home or self-care (01) ==
LOC: LBN 15:05
PROVIDERS: PCP Nurse Practitioner Family; Visit Provider Physician Assistant
DX: M86.171 Other acute osteomyelitis, right ankle and foot (principal)
CPT/HCPCS: 80053; 82550; 85025; 86140

== ENCOUNTER 2021-07-03 18:39 | Outpatient (REF) | payer MEDICARE, MEDICAID, SELFPAY ==
[2021-07-03 19:32] LABS: Abs Immature Grans 0.02 10^3/uL (0.0-0.06); Absolute Basophil Count 0.09 10^3/uL (0.0-0.2); Absolute Eosinophil Count 0.49 10^3/uL (0.0-0.7); Absolute Lymphocyte Count 1.68 10^3/uL (1.2-3.4); Absolute Monocyte Count 0.66 10^3/uL (0.1-0.8); Absolute Neutrophil Count 4.97 10^3/uL (1.2-6.7); Basophils % 1.1; Eosinophils % 6.2; HGB 10.6 g/dL (13.5-17.5); Immature Grans % 0.3; Lymphocytes % 21.2; MCH 29.4 pg (27.0-33.0); MCHC 32.1 % (32.0-36.0); MCV 91.7 fL (80-95); MPV 10.9 fL (8.0-11.0); Monocytes % 8.3; Neutrophils % 62.9; Nucleated RBC 0 %; Platelet Count 276 10^3/uL (130-400); RDW 13.7 % (11.8-14.1); RDW-SD 46.8 fL; WBC 7.91 10^3/uL (4.4-10.8)
== END 2021-07-03 18:40 | disposition home or self-care (01) ==
LOC: LBN 18:39
PROVIDERS: PCP Nurse Practitioner Family; Referring Provider Physician Assistant; Visit Provider Internal Medicine Infectious Disease
DX: M86.171 Other acute osteomyelitis, right ankle and foot (principal)
CPT/HCPCS: 80053; 85025; 86140

== ENCOUNTER 2021-07-04 17:24 | Outpatient (REF) | payer MEDICARE, MEDICAID, SELFPAY ==
[2021-07-04 19:21] LABS: ALT 66 U/L (16-63); AST 88 U/L (15-37); Alkaline Phosphatase 124 U/L (46-116); Anion Gap 5.4 mmol/L (3-11); BUN 23 mg/dL (7-18); Bilirubin, Total 0.3 mg/dL (0.2-1.0); C-Reactive Protein 1.46 mg/dL (0.0-0.3); CO2 31.6 mmol/L (21.0-32.0); CREATININE 1.2 mg/dL (0.70-1.30); Calcium 8.9 mg/dL (8.5-10.1); Chloride 104 mmol/L (98-107); Glucose 237 mg/dL (74-106); Potassium 4.6 mmol/L (3.5-5.1); Sodium 141 mmol/L (136-145); Total Protein 7.2 g/dL (6.4-8.2)
[2021-07-05 13:30] LABS: Creatine Kinase 1349 U/L (39-308)
== END 2021-07-04 17:25 | disposition home or self-care (01) ==
LOC: LBN 17:24
PROVIDERS: PCP Nurse Practitioner Family; Visit Provider Physician Assistant
DX: M86.171 Other acute osteomyelitis, right ankle and foot (principal)
CPT/HCPCS: 80053; 82550; 86140

== ENCOUNTER 2021-07-10 14:11 | Outpatient (REF) | payer MEDICARE, MEDICAID, SELFPAY ==
[2021-07-10 19:24] LABS: ALT 97 U/L (16-63); AST 101 U/L (15-37); Albumin 2.9 g/dL (3.4-5.0); Alkaline Phosphatase 127 U/L (46-116); Anion Gap 5.8 mmol/L (3-11); BUN 25 mg/dL (7-18); Bilirubin, Total 0.3 mg/dL (0.2-1.0); C-Reactive Protein 0.78 mg/dL (0.0-0.3); CO2 32.2 mmol/L (21.0-32.0); CREATININE 1.4 mg/dL (0.70-1.30); Calcium 8.7 mg/dL (8.5-10.1); Chloride 104 mmol/L (98-107); Estimated GFR 50.25 (mL/min/1.73m2); Glucose 253 mg/dL (74-106); Potassium 4.2 mmol/L (3.5-5.1); Sodium 142 mmol/L (136-145); Total Protein 6.9 g/dL (6.4-8.2)
[2021-07-10 19:31] LABS: Creatine Kinase 1130 U/L (39-308)
== END 2021-07-10 14:12 | disposition home or self-care (01) ==
LOC: LBN 14:11
PROVIDERS: Internal Medicine Infectious Disease; PCP Nurse Practitioner Family; Visit Provider Physician Assistant
DX: M86.171 Other acute osteomyelitis, right ankle and foot (principal)
CPT/HCPCS: 80053; 82550; 86140

== ENCOUNTER 2021-07-11 17:20 | Outpatient (REF) | payer MEDICARE, MEDICAID, SELFPAY ==
[2021-07-11 20:07] LABS: Abs Immature Grans 0.02 10^3/uL (0.0-0.06); Absolute Basophil Count 0.09 10^3/uL (0.0-0.2); Absolute Eosinophil Count 0.78 10^3/uL (0.0-0.7); Absolute Lymphocyte Count 2.46 10^3/uL (1.2-3.4); Absolute Monocyte Count 0.75 10^3/uL (0.1-0.8); Absolute Neutrophil Count 4.36 10^3/uL (1.2-6.7); Basophils % 1.1; Eosinophils % 9.2; HCT 36.9 % (40.0-50.0); HGB 11.7 g/dL (13.5-17.5); Immature Grans % 0.2; Lymphocytes % 29.1; MCH 28.4 pg (27.0-33.0); MCHC 31.7 % (32.0-36.0); MCV 89.6 fL (80-95); MPV 10.8 fL (8.0-11.0); Monocytes % 8.9; Neutrophils % 51.5; Nucleated RBC 0 %; Platelet Count 285 10^3/uL (130-400); RBC 4.12 10^6/uL (4.36-5.78); RDW 13.7 % (11.8-14.1); RDW-SD 44.5 fL; WBC 8.46 10^3/uL (4.4-10.8)
== END 2021-07-11 17:21 | disposition home or self-care (01) ==
LOC: LBN 17:20
PROVIDERS: Internal Medicine Infectious Disease; PCP Nurse Practitioner Family; Visit Provider Physician Assistant
DX: M86.171 Other acute osteomyelitis, right ankle and foot (principal)
CPT/HCPCS: 85025

== ENCOUNTER 2021-07-17 15:59 | Outpatient (REF) | payer MEDICARE, MEDICAID, SELFPAY ==
[2021-07-17 16:10] LABS: Abs Immature Grans 0.02 10^3/uL (0.0-0.06); Absolute Basophil Count 0.05 10^3/uL (0.0-0.2); Absolute Eosinophil Count 0.65 10^3/uL (0.0-0.7); Absolute Lymphocyte Count 1.69 10^3/uL (1.2-3.4); Absolute Monocyte Count 0.71 10^3/uL (0.1-0.8); Absolute Neutrophil Count 5.34 10^3/uL (1.2-6.7); Basophils % 0.6; Eosinophils % 7.7; HCT 33.1 % (40.0-50.0); HGB 10.9 g/dL (13.5-17.5); Immature Grans % 0.2; MCH 29.8 pg (27.0-33.0); MCHC 32.9 % (32.0-36.0); MCV 90.4 fL (80-95); MPV 10.7 fL (8.0-11.0); Monocytes % 8.4; Neutrophils % 63.1; Nucleated RBC 0 %; Platelet Count 233 10^3/uL (130-400); RBC 3.66 10^6/uL (4.36-5.78); RDW-SD 46.5 fL; WBC 8.46 10^3/uL (4.4-10.8)
[2021-07-17 16:44] LABS: ALT 81 U/L (16-63); AST 73 U/L (15-37); Alkaline Phosphatase 120 U/L (46-116); Anion Gap 5.8 mmol/L (3-11); BUN 22 mg/dL (7-18); Bilirubin, Total 0.3 mg/dL (0.2-1.0); C-Reactive Protein 0.63 mg/dL (0.0-0.3); CO2 31.2 mmol/L (21.0-32.0); CREATININE 1.2 mg/dL (0.70-1.30); Calcium 8.6 mg/dL (8.5-10.1); Chloride 107 mmol/L (98-107); Glucose 201 mg/dL (74-106); Potassium 4.3 mmol/L (3.5-5.1); Sodium 144 mmol/L (136-145)
[2021-07-17 20:59] LABS: Creatine Kinase 342 U/L (39-308)
== END 2021-07-17 16:00 | disposition home or self-care (01) ==
LOC: LBN 15:59
PROVIDERS: PCP Nurse Practitioner Family; Visit Provider Internal Medicine Infectious Disease
DX: M86.171 Other acute osteomyelitis, right ankle and foot (principal)
CPT/HCPCS: 80053; 82550; 85025; 86140

== ENCOUNTER 2021-07-24 21:03 | Outpatient (REF) | payer MEDICARE, MEDICAID, SELFPAY ==
[2021-07-24 19:40] LABS: Abs Immature Grans 0.01 10^3/uL (0.0-0.06); Absolute Basophil Count 0.08 10^3/uL (0.0-0.2); Absolute Eosinophil Count 0.55 10^3/uL (0.0-0.7); Absolute Lymphocyte Count 1.67 10^3/uL (1.2-3.4); Absolute Monocyte Count 0.74 10^3/uL (0.1-0.8); Absolute Neutrophil Count 3.77 10^3/uL (1.2-6.7); Basophils % 1.2; Eosinophils % 8.1; HGB 10.8 g/dL (13.5-17.5); Immature Grans % 0.1; Lymphocytes % 24.5; MCH 28.7 pg (27.0-33.0); MCHC 31.8 % (32.0-36.0); MCV 90.4 fL (80-95); MPV 10.8 fL (8.0-11.0); Monocytes % 10.9; Neutrophils % 55.2; Nucleated RBC 0 %; Platelet Count 239 10^3/uL (130-400); RBC 3.76 10^6/uL (4.36-5.78); RDW 14.3 % (11.8-14.1); RDW-SD 47.7 fL; WBC 6.82 10^3/uL (4.4-10.8)
[2021-07-24 20:22] LABS: ALT 56 U/L (16-63); AST 46 U/L (15-37); Alkaline Phosphatase 123 U/L (46-116); Anion Gap 6.5 mmol/L (3-11); BUN 21 mg/dL (7-18); Bilirubin, Total 0.3 mg/dL (0.2-1.0); C-Reactive Protein 1.79 mg/dL (0.0-0.3); CO2 28.5 mmol/L (21.0-32.0); CREATININE 1.2 mg/dL (0.70-1.30); Calcium 8.8 mg/dL (8.5-10.1); Chloride 106 mmol/L (98-107); Creatine Kinase 378 U/L (39-308); Glucose 252 mg/dL (74-106); Potassium 4.9 mmol/L (3.5-5.1); Sodium 141 mmol/L (136-145); Total Protein 7.1 g/dL (6.4-8.2)
== END 2021-07-24 21:04 | disposition home or self-care (01) ==
LOC: LBN 21:03
PROVIDERS: PCP Nurse Practitioner Family; Referring Provider Physician Assistant; Visit Provider Internal Medicine Infectious Disease
DX: M86.171 Other acute osteomyelitis, right ankle and foot (principal)
CPT/HCPCS: 80053; 82550; 85025; 86140

== ENCOUNTER 2021-07-31 13:47 | Outpatient (REF) | payer MEDICARE, MEDICAID, SELFPAY ==
[2021-07-31 14:44] LABS: Abs Immature Grans 0.02 10^3/uL (0.0-0.06); Absolute Basophil Count 0.07 10^3/uL (0.0-0.2); Absolute Eosinophil Count 0.63 10^3/uL (0.0-0.7); Absolute Lymphocyte Count 1.98 10^3/uL (1.2-3.4); Absolute Monocyte Count 0.88 10^3/uL (0.1-0.8); Absolute Neutrophil Count 4.63 10^3/uL (1.2-6.7); Basophils % 0.9; Eosinophils % 7.7; HCT 35.6 % (40.0-50.0); HGB 11.3 g/dL (13.5-17.5); Immature Grans % 0.2; Lymphocytes % 24.1; MCH 28.5 pg (27.0-33.0); MCHC 31.7 % (32.0-36.0); MCV 89.7 fL (80-95); MPV 10.9 fL (8.0-11.0); Monocytes % 10.7; Neutrophils % 56.4; Nucleated RBC 0 %; Platelet Count 235 10^3/uL (130-400); RBC 3.97 10^6/uL (4.36-5.78); RDW-SD 46.4 fL; WBC 8.21 10^3/uL (4.4-10.8)
[2021-07-31 14:57] LABS: ALT 44 U/L (16-63); AST 42 U/L (15-37); Albumin 3.1 g/dL (3.4-5.0); Alkaline Phosphatase 122 U/L (46-116); Anion Gap 7.9 mmol/L (3-11); BUN 28 mg/dL (7-18); Bilirubin, Total 0.3 mg/dL (0.2-1.0); C-Reactive Protein 6.51 mg/dL (0.0-0.3); CO2 28.1 mmol/L (21.0-32.0); CREATININE 1.2 mg/dL (0.70-1.30); Calcium 8.6 mg/dL (8.5-10.1); Chloride 105 mmol/L (98-107); Creatine Kinase 454 U/L (39-308); Glucose 266 mg/dL (74-106); Potassium 4.8 mmol/L (3.5-5.1); Sodium 141 mmol/L (136-145); Total Protein 7.4 g/dL (6.4-8.2)
== END 2021-07-31 13:48 | disposition home or self-care (01) ==
LOC: LBN 13:47
PROVIDERS: PCP Nurse Practitioner Family; Visit Provider Internal Medicine Infectious Disease
DX: E11.621 Type 2 diabetes mellitus with foot ulcer (principal); M86.171 Other acute osteomyelitis, right ankle and foot; B95.62 Methicillin resistant Staphylococcus aureus infection as the cause of diseases classified elsewhere
CPT/HCPCS: 80053; 82550; 85025; 86140

== ENCOUNTER 2021-08-07 17:43 | Outpatient (REF) | payer MEDICARE, MEDICAID, SELFPAY ==
[2021-08-07 18:30] LABS: Abs Immature Grans 0.02 10^3/uL (0.0-0.06); Absolute Basophil Count 0.07 10^3/uL (0.0-0.2); Absolute Eosinophil Count 0.57 10^3/uL (0.0-0.7); Absolute Lymphocyte Count 1.73 10^3/uL (1.2-3.4); Absolute Neutrophil Count 2.39 10^3/uL (1.2-6.7); Basophils % 1.2; HCT 36.4 % (40.0-50.0); HGB 11.7 g/dL (13.5-17.5); Immature Grans % 0.4; Lymphocytes % 30.5; MCH 28.7 pg (27.0-33.0); MCHC 32.1 % (32.0-36.0); MCV 89.4 fL (80-95); MPV 10.3 fL (8.0-11.0); Monocytes % 15.8; Neutrophils % 42.1; Nucleated RBC 0 %; Platelet Count 257 10^3/uL (130-400); RBC 4.07 10^6/uL (4.36-5.78); RDW 13.3 % (11.8-14.1); RDW-SD 44.1 fL; WBC 5.68 10^3/uL (4.4-10.8)
[2021-08-07 18:46] LABS: ALT 56 U/L (16-63); AST 41 U/L (15-37); Albumin 3.1 g/dL (3.4-5.0); Alkaline Phosphatase 123 U/L (46-116); BUN 24 mg/dL (7-18); Bilirubin, Total 0.3 mg/dL (0.2-1.0); CREATININE 1.1 mg/dL (0.70-1.30); Calcium 8.6 mg/dL (8.5-10.1); Chloride 104 mmol/L (98-107); Glucose 239 mg/dL (74-106); Potassium 4.4 mmol/L (3.5-5.1); Sodium 139 mmol/L (136-145); Total Protein 7.3 g/dL (6.4-8.2)
[2021-08-07 22:27] LABS: Creatine Kinase 29 U/L (39-308)
== END 2021-08-07 17:44 | disposition home or self-care (01) ==
LOC: LBN 17:43
PROVIDERS: Internal Medicine Infectious Disease; PCP Nurse Practitioner Family; Visit Provider Physician Assistant
DX: M86.171 Other acute osteomyelitis, right ankle and foot (principal); B95.62 Methicillin resistant Staphylococcus aureus infection as the cause of diseases classified elsewhere; Z79.2 Long term (current) use of antibiotics
CPT/HCPCS: 80053; 82550; 85025; 86140

== ENCOUNTER 2021-08-29 16:12 | Emergency (ER) | payer MEDICARE, MEDICAID, SELFPAY ==
[2021-08-29 16:19] VITALS: BP 132/72; PULSE 62; RESP 18; TEMP 36.8; O2SAT 98
--- NOTE | 2021-08-29 17:01 | ED.GENADUL_ITS ---
Discharge Plan Disposition Patient Disposition: HOME Condition: Stable Discharge Details Clinical Impression: Foot infection, Cellulitis Primary Care Provider: Galen Rivera ED Provider: Criselda Hamm Home Meds and New Rx's Prescriptions: New cephalexin 500 mg tablet 500 mg PO QID 10 Days Qty: 40 RF: 0 Continued methadone 10 MG/ML concentrate 225 mg PO DAILY RF: 0 clonazepam 1 MG tablet 1 mg PO DAILY PRN PRNRF: 0 metformin 500 mg tablet extended release 24 hr 1,000 mg PO DAILY RF: 0 levothyroxine 137 mcg Tablet 137 mcg PO DAILY RF: 0 gabapentin 800 mg Tablet 800 mg PO QID RF: 0 Lantus Solostar U-100 Insulin 100 unit/mL (3 mL) Insulin Pen 20 unit SUBCUT QAM RF: 0 Lantus Solostar U-100 Insulin 100 unit/mL (3 mL) Insulin Pen 40 unit SUBCUT QPM RF: 0 Discharge Instructions Instructions: Cephalexin (By mouth), Cellulitis (ED) Additional Instructions: Your labs and imaging are reassuring here today. I am concerned about infection and would like for you to continue with antibiotics. [facility] orthopedics would like for you to continue with the Keflex you were previously taking. Please take 500mg Keflex tablet four time a day. Please continue cleaning areas daily, having home health care for and dress wounds. Please call orthopedics tomorrow to schedule appointment as soon as possible for follow up. [phone]. I have asked care management to help arrange for transportation if this continues to be an issue for you. If you develop fevers/chills, increased pain, spreading of the redness or other new/worsening symptoms please seek care urgently once again. Referrals: Galen Rivera, [employer]PER[employer] [Primary Care Provider] - Discharge Data Discharge Date/Time-TO BE ENTERED AT DEPARTURE: 08/29/21 19:39 Medical Decision Making Patient is a 71 year old male presenting today with concerns for infection to his left foot. He reports he underwent amputation of great toe and second toe of this extremity a few months ago at [facility] for osteomyelitis. Jose has hx of DM with neuropathy. States that he has had worsening redness over the past week to the 3rd toe and lateral aspect of the right foot. Denies fevers/chills. States that he is feeling well systemically. Reports that wounds are cleansed and dressed every other day by home health nursing staff. Has plan for amputation of remaining toes at [facility] with their orthopedics group. Reports that a few days ago he began using Keflex that he had left over from infection one year ago. Reports this has been improving the redness and drainage. On exam, patient does not appear acutetly ill or septic. His right foot has cho rnic appearing wound with surrounding erythema and warmth. Concerning for cellulitis. I do not visualize bone but certainly concerned for osteomyelitis with his history. Intact capillary refill. Sensation intact. VS stable. Discussed plan with patient. I reviewed the notes from [facility]. They had been planning on upcoming amputation as noted above. they have been speaking witht epatient recently and recommended that he come to their ED for admission and amputation. However, secondary to transportation issues, patient has not gone. Spoke with patient regarding having care here vs. [facility], he would be agreeable to having our orthopedic department involved. His daughter drives him to his appointments and this has been difficult recently. Will obtain baseline labs, XR to evaluate for possible osteomyelitis. consulted with Dr. Quiros. As the patient appears clinically well without evidence of sepsis, he recommended continuing oral abx. Patient reports he has been responding well to some left over Keflex he had from previous prescription. He advised that we could increase to a flouroquinolone. He felt that if patient is not septic, patient would best be served by staying with his medical home at [facility] for continued care of his foot infection. Labs reviewed. No leukocytosis. ESR elevated at 59, CRP 0.71. Inflammatory markers appear chronic for hte patient. XR reviewed by radiologist, no evidence of osteomyelitis at this time. Have sent images to [facility], have requested consultation with orthopedics. They do not currently have bed availability. Consulted with Dr. Francisco with orthopedics at [facility]. Reviewed exam, imaging and labs. He and I discussed plan, they are planning to operate, as soon as possible. Advised to continue with the Keflex, return precautions. Will have care management help to arrange for transport as this has been an issue for the patient. Discussed recommendations with the patient. He feels comfortable to go home with f/u plan, continuation of the Keflex. I have asked our care management team to reach out to the patient regarding his transportation issues as this seems to be his limiting factor in getting the prompt care he needs at his surgical home in . Strict return precautions discussed with the patient. Wounds dressed. He will continue with care. All of his quesitons and concerns were addressed, he is in agreement with this plan. HPI General Mode of arrival: ambulatory . Date/Time Provider Initiated Documentation: 08/29/21 17:00 . Limitations to Documentation: no limitations . Information obtained by: patient, RN notes reviewed and old records reviewed . History of Present Illness 71 year old M presents to the emergency department with the chief complaint of right foot pain, redness, described as mild and similar to prior episodes, with intensity rated at 2. Quality is described as aching, and is localized to the right and lower extremity. Patient reports no radiation. Patient started experiencing this day(s) and it has been constant. Medication improves symptom(s), (has been improving with Keflex that he had left over from old prescription) No exacerbating factors reported . Patient notes rash; denies diaphoresis, fever/chills and shortness of breath. Patient did receive the following treatments prior to arrival, other (abx) Related Data Home Medications Medication Instructions Recorded Confirmed clonazepam 1 mg PO DAILY PRN PRN 04/07/13 08/29/21 methadone 225 mg PO DAILY 04/07/13 08/29/21 metformin 500 mg tablet,extended 1,000 mg PO DAILY 01/15/19 08/29/21 release 24 hr Lantus Solostar U-100 Insulin 20 unit SUBCUT QAM 12/21/19 08/29/21 Lantus Solostar U-100 Insulin 40 unit SUBCUT QPM 12/21/19 08/29/21 gabapentin 800 mg PO QID 12/21/19 08/29/21 levothyroxine 137 mcg PO DAILY 12/21/19 08/29/21 cephalexin 500 mg PO QID 10 Days #40 tab 08/29/21 Previous Rx's Medication Instructions Recorded cephalexin 500 mg PO QID 10 Days #40 tab 08/29/21 Allergies Allergy/AdvReac Type Severity Reaction Status Date / Time codeine AdvReac itching Unverified 08/29/21 16:32 and bloutchy naloxone HCl [From Narcan] AdvReac Unverified 08/29/21 16:32 pentazocine lactate AdvReac makes me Unverified 08/29/21 16:32 [From Erica] deathly ill Narcotic AdvReac H/O drug Uncoded 08/29/21 16:32 abuse narcotic antagonists AdvReac Uncoded 08/29/21 16:32 General Stated Complaint: GenMedical ANNE: 3 Review of Systems Constitutional Constitutional: Reports as per HPI, Denies chills, Denies fever(s), Denies headache(s) and Denies weakness ENT Ears, Nose, Mouth, and Throat: Denies headache(s) Cardiovascular Cardiovascular: Reports as per HPI, Denies chest pain and Denies dyspnea Respiratory Respiratory: Reports as per HPI, Denies cough and Denies dyspnea Musculoskeletal Musculoskeletal: Reports as per HPI Integumentary/Breasts Skin/Breast: Reports as per HPI, Reports erythema, Reports skin pain, Reports sores and Reports wounds Neurologic Neurologic: Reports as per HPI, Denies headache(s), Reports sensory deficit (chronic neuropathy BLE) and Denies weakness [facility] Medical History (Updated 08/29/21 @ 19:20 by CHUCHO Calderon) Anxiety Diabetes History of amputation of great toe Hypertension Substance abuse in remission Toe osteomyelitis, right Right great toe 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 Exam Const General: cooperative, comfortable, no acute distress, well developed and ill appearing chronically Nutritional Appearance: average body habitus and well nourished Orientation: alert and awake Resp Effort & Inspection: normal respiratory effort, able to speak in complete sentences and no respiratory distress Auscultation: clear to auscultation bilaterally Cardio Rate: regular rate Rhythm: regular rhythm Heart Sounds: S1 normal and S2 normal Skin General skin exam: erythema Wounds: wounds noted Neuro General: patient alert and patient awake Cognition: normal cognition Speech: speech normal Gait: normal gait Motor: muscle tone normal throughout Sensory Exam: sensory deficits noted Extrem Ankle/foot/toe images: 1. 2. Areas of open wounds. These appear chronic. No evidence ot suggest acute trauma. Surrounding tissue is erythematous and warm. The erythema on the toe extends just past the base of the digit. The wound on the lateral aspect has erythema spreading along lateral foot to about half way toward the heel. No drainage. I do not see bone involvement. He has had amputation of the first 2 toes. Capillary refill intact. Sensation limited, patient reports htis is baseline. Psych Appearance: grossly normal and disheveled Mental Status: mental status grossly normal Speech and Movement: speech and movement normal Course Vital Signs Vital signs: Vital Signs Temperature 36.8 C 08/29/21 16:19 Pulse 62 08/29/21 16:19 Respiratory Rate 18 08/29/21 16:19 Blood Pressure 132/72 08/29/21 16:19 Pulse Oximetry 98 08/29/21 16:19 Temperature 36.8 C 08/29/21 16:19 Pulse 62 08/29/21 16:19 Respiratory Rate 18 08/29/21 16:19 Respiratory Effort Non-Labored 08/29/21 16:29 Blood Pressure 132/72 08/29/21 16:19 Blood Pressure Position Sitting 08/29/21 16:19 Pulse Oximetry 98 08/29/21 16:19 Oxygen Delivery Method Room Air 08/29/21 16:19 Oxygen Flow Rate 0 08/29/21 16:19 Pain Level 2 08/29/21 16:19
--- NOTE | 2021-08-29 17:15 | DI.RAD_ITS ---
Exam(s) XR FOOT RT COMPLETE EXAM: XR FOOT RT COMPLETE CLINICAL HISTORY: concern for infection 3rd toe, lateral foot. TECHNIQUE: 2D digital imaging was performed of the right foot. Three images were obtained. AP, obl ique and lateral views were obtained. COMPARISON: CR,XR XR FOOT RT COMPLETE from 06/12/2021 FINDINGS: BONES: No acute fracture is present. No radiographic evidence of osteomyelitis. Prior 1st and 2nd me tatarsal amputations. There hemorrhage or deformities of the 3rd, 4th and 5th toes. JOINTS: No dislocation present. Degenerative changes are seen at the talonavicular joint and the tars ometatarsal joints. SOFT TISSUE: Paralyzed swelling of the forefoot. There is a soft tissue lucency lateral to the head of the 5th metatarsal which may represent an ulcer. IMPRESSION: No radiographic evidence to suggest osteomyelitis. DATA REPOSITORY: RADIATION DOSE DELIVERED:
--- NOTE | 2021-08-29 17:54 | DI.VRAD_ITS ---
PROCEDURE INFORMATION: Exam: XR Right Foot Exam date and time: 08/29/2021 17:31 Age: 71 years old Clinical indication: Other: Concern for infection 3rd toe, lateral foot TECHNIQUE: Imaging protocol: XR Right foot. Views: 3 or more views. COMPARISON: CT LOWER EXTREMITY RT WO 06/17/2021 09:12 FINDINGS: Bones/joints: The bones are demineralized. No acute fracture or subluxation. Healed 1st 2nd and 3rd metatarsal fractures. Chronic appearing a few Tisch insight 2nd and 1st metatarsal neck. Degenerative changes in the forefoot. Probably early neuropathic changes in the midfoot. Coarse appearing calcification near the 1st metatarsal amputation site chronic in appearance. No definite bony erosions are identified. Hammertoe deformities. Soft tissues: Generalized swelling in the forefoot with ulceration present most likely in both the medial and lateral forefoot. IMPRESSION: 1. No acute bony pathology. 2. Chronic findings as described. Dictated and Authenticated by: Mee Rodriguez MD. Ordering:JOSI Aburto MD
[2021-08-29 18:06] LABS: Abs Immature Grans 0.02 10^3/uL (0.0-0.06); Absolute Basophil Count 0.07 10^3/uL (0.0-0.2); Absolute Lymphocyte Count 1.62 10^3/uL (1.2-3.4); Absolute Monocyte Count 0.55 10^3/uL (0.1-0.8); Absolute Neutrophil Count 4.16 10^3/uL (1.2-6.7); Basophils % 1.1; HCT 41.4 % (40.0-50.0); HGB 13.3 g/dL (13.5-17.5); Immature Grans % 0.3; Lymphocytes % 24.5; MCH 28.6 pg (27.0-33.0); MCHC 32.1 % (32.0-36.0); MPV 10.3 fL (8.0-11.0); Monocytes % 8.3; Neutrophils % 62.8; Nucleated RBC 0 %; Platelet Count 232 10^3/uL (130-400); RBC 4.65 10^6/uL (4.36-5.78); RDW 13.3 % (11.8-14.1); RDW-SD 43.8 fL; WBC 6.62 10^3/uL (4.4-10.8)
[2021-08-29 18:07] LABS: ESR 59 mm/hr (0-20)
[2021-08-29 18:31] LABS: ALT 67 U/L (16-63); AST 36 U/L (15-37); Albumin 3.7 g/dL (3.4-5.0); Alkaline Phosphatase 153 U/L (46-116); Anion Gap 3.6 mmol/L (3-11); BUN 27 mg/dL (7-18); Bilirubin, Total 0.4 mg/dL (0.2-1.0); C-Reactive Protein 0.71 mg/dL (0.0-0.3); CO2 31.4 mmol/L (21.0-32.0); CREATININE 1.2 mg/dL (0.70-1.30); Calcium 9.3 mg/dL (8.5-10.1); Chloride 103 mmol/L (98-107); Glucose 252 mg/dL (74-106); Potassium 5.5 mmol/L (3.5-5.1); Sodium 138 mmol/L (136-145); Total Protein 8.8 g/dL (6.4-8.2)
[2021-08-29] MEDS: Cephalexin 500 MG CAP 2500 MG PO (19:42)
--- NOTE | 2021-08-29 19:42 | NUR.NOTE ---
i faxed the referral to care management for help with rct , nabor Nursing Note:
== END 2021-08-29 19:39 | disposition home or self-care (01) ==
PROVIDERS: Emergency Provider Physician Assistant; PCP Nurse Practitioner Family
DX: L03.116 Cellulitis of left lower limb (principal); Z89.412 Acquired absence of left great toe; E11.42 Type 2 diabetes mellitus with diabetic polyneuropathy
CPT/HCPCS: 36415; 80053; 85652; 99283; 73630; 85025; 86140

== ENCOUNTER 2021-09-27 13:04 | Outpatient (REF) | payer MEDICARE, MEDICAID, SELFPAY ==
[2021-09-27 13:25] LABS: Abs Immature Grans 0.02 10^3/uL (0.0-0.06); Absolute Basophil Count 0.08 10^3/uL (0.0-0.2); Absolute Lymphocyte Count 1.78 10^3/uL (1.2-3.4); Absolute Monocyte Count 0.62 10^3/uL (0.1-0.8); Absolute Neutrophil Count 3.81 10^3/uL (1.2-6.7); Basophils % 1.2; Eosinophils % 7.3; HGB 12.1 g/dL (13.5-17.5); Immature Grans % 0.3; Lymphocytes % 26.1; MCH 28.6 pg (27.0-33.0); MCHC 31.8 % (32.0-36.0); MCV 89.8 fL (80-95); MPV 10.7 fL (8.0-11.0); Monocytes % 9.1; Nucleated RBC 0 %; Platelet Count 279 10^3/uL (130-400); RBC 4.23 10^6/uL (4.36-5.78); RDW 13.5 % (11.8-14.1); WBC 6.81 10^3/uL (4.4-10.8)
[2021-09-27 13:49] LABS: ALT 91 U/L (16-63); AST 61 U/L (15-37); Albumin 3.3 g/dL (3.4-5.0); Alkaline Phosphatase 161 U/L (46-116); Anion Gap 5.4 mmol/L (3-11); BUN 21 mg/dL (7-18); Bilirubin, Total 0.2 mg/dL (0.2-1.0); C-Reactive Protein 1.07 mg/dL (0.0-0.3); CO2 30.6 mmol/L (21.0-32.0); CREATININE 1.1 mg/dL (0.70-1.30); Calcium 9.2 mg/dL (8.5-10.1); Chloride 105 mmol/L (98-107); Glucose 174 mg/dL (74-106); Sodium 141 mmol/L (136-145); Total Protein 7.5 g/dL (6.4-8.2)
== END 2021-09-27 13:05 | disposition home or self-care (01) ==
LOC: LBN 13:04
PROVIDERS: PCP Nurse Practitioner Family; Visit Provider Physician Assistant
DX: M86.8X8 Other osteomyelitis, other site (principal)
CPT/HCPCS: 80053; 85025; 86140

== ENCOUNTER 2021-10-02 12:13 | Outpatient (REF) | payer MEDICARE, MEDICAID, SELFPAY ==
[2021-10-02 14:06] LABS: Abs Immature Grans 0.02 10^3/uL (0.0-0.06); Absolute Basophil Count 0.08 10^3/uL (0.0-0.2); Absolute Eosinophil Count 0.47 10^3/uL (0.0-0.7); Absolute Lymphocyte Count 1.86 10^3/uL (1.2-3.4); Absolute Monocyte Count 0.94 10^3/uL (0.1-0.8); Absolute Neutrophil Count 5.65 10^3/uL (1.2-6.7); Basophils % 0.9; Eosinophils % 5.2; HCT 39.4 % (40.0-50.0); HGB 12.4 g/dL (13.5-17.5); Immature Grans % 0.2; Lymphocytes % 20.6; MCH 28.4 pg (27.0-33.0); MCHC 31.5 % (32.0-36.0); MCV 90.4 fL (80-95); Monocytes % 10.4; Neutrophils % 62.7; Nucleated RBC 0 %; Platelet Count 332 10^3/uL (130-400); RBC 4.36 10^6/uL (4.36-5.78); RDW 13.3 % (11.8-14.1); WBC 9.02 10^3/uL (4.4-10.8)
[2021-10-02 14:14] LABS: ALT 52 U/L (16-63); AST 34 U/L (15-37); Albumin 3.4 g/dL (3.4-5.0); Alkaline Phosphatase 170 U/L (46-116); Anion Gap 6.1 mmol/L (3-11); BUN 25 mg/dL (7-18); Bilirubin, Total 0.3 mg/dL (0.2-1.0); C-Reactive Protein 0.82 mg/dL (0.0-0.3); CO2 29.9 mmol/L (21.0-32.0); CREATININE 1.2 mg/dL (0.70-1.30); Calcium 9.1 mg/dL (8.5-10.1); Chloride 103 mmol/L (98-107); Glucose 193 mg/dL (74-106); Sodium 139 mmol/L (136-145); Total Protein 7.8 g/dL (6.4-8.2)
== END 2021-10-02 12:14 | disposition home or self-care (01) ==
LOC: NCHCN 12:13
PROVIDERS: PCP Nurse Practitioner Family; Visit Provider Physician Assistant
DX: M86.171 Other acute osteomyelitis, right ankle and foot (principal)
CPT/HCPCS: 80053; 85025; 86140

== ENCOUNTER 2021-10-09 15:18 | Outpatient (REF) | payer MEDICARE, MEDICAID, SELFPAY ==
[2021-10-09 17:49] LABS: Abs Immature Grans 0.02 10^3/uL (0.0-0.06); Absolute Basophil Count 0.05 10^3/uL (0.0-0.2); Absolute Eosinophil Count 0.39 10^3/uL (0.0-0.7); Absolute Lymphocyte Count 1.91 10^3/uL (1.2-3.4); Absolute Monocyte Count 0.72 10^3/uL (0.1-0.8); Absolute Neutrophil Count 3.57 10^3/uL (1.2-6.7); Basophils % 0.8; Eosinophils % 5.9; HCT 36.6 % (40.0-50.0); HGB 11.7 g/dL (13.5-17.5); Immature Grans % 0.3; Lymphocytes % 28.7; MCV 90.8 fL (80-95); MPV 10.8 fL (8.0-11.0); Monocytes % 10.8; Neutrophils % 53.5; Nucleated RBC 0 %; Platelet Count 267 10^3/uL (130-400); RBC 4.03 10^6/uL (4.36-5.78); RDW 13.2 % (11.8-14.1); RDW-SD 43.9 fL; WBC 6.66 10^3/uL (4.4-10.8)
[2021-10-09 18:13] LABS: ALT 38 U/L (16-63); AST 27 U/L (15-37); Albumin 3.2 g/dL (3.4-5.0); Alkaline Phosphatase 170 U/L (46-116); Anion Gap 8.1 mmol/L (3-11); BUN 25 mg/dL (7-18); Bilirubin, Total 0.2 mg/dL (0.2-1.0); CO2 27.9 mmol/L (21.0-32.0); CREATININE 1.1 mg/dL (0.70-1.30); Calcium 8.5 mg/dL (8.5-10.1); Chloride 104 mmol/L (98-107); Glucose 72 mg/dL (74-106); Potassium 5.4 mmol/L (3.5-5.1); Sodium 140 mmol/L (136-145); Total Protein 7.3 g/dL (6.4-8.2)
[2021-10-09 21:57] LABS: C-Reactive Protein 1.06 mg/dL (0.0-0.3)
== END 2021-10-09 15:19 | disposition home or self-care (01) ==
LOC: LBN 15:18
PROVIDERS: PCP Nurse Practitioner Family; Visit Provider Physician Assistant
DX: M86.9 Osteomyelitis, unspecified (principal)
CPT/HCPCS: 80053; 85025; 86140

== ENCOUNTER 2021-10-16 16:17 | Outpatient (REF) | payer MEDICARE, MEDICAID, SELFPAY ==
[2021-10-16 17:34] LABS: Abs Immature Grans 0.03 10^3/uL (0.0-0.06); Absolute Basophil Count 0.09 10^3/uL (0.0-0.2); Absolute Eosinophil Count 0.42 10^3/uL (0.0-0.7); Absolute Lymphocyte Count 1.76 10^3/uL (1.2-3.4); Absolute Monocyte Count 0.77 10^3/uL (0.1-0.8); Absolute Neutrophil Count 3.97 10^3/uL (1.2-6.7); Basophils % 1.3; HCT 39.7 % (40.0-50.0); HGB 12.6 g/dL (13.5-17.5); Immature Grans % 0.4; MCH 29.2 pg (27.0-33.0); MCHC 31.7 % (32.0-36.0); MCV 91.9 fL (80-95); MPV 10.8 fL (8.0-11.0); Monocytes % 10.9; Neutrophils % 56.4; Nucleated RBC 0 %; Platelet Count 271 10^3/uL (130-400); RBC 4.32 10^6/uL (4.36-5.78); RDW 13.2 % (11.8-14.1); RDW-SD 44.8 fL; WBC 7.04 10^3/uL (4.4-10.8)
[2021-10-16 17:51] LABS: ALT 65 U/L (16-63); AST 50 U/L (15-37); Albumin 3.3 g/dL (3.4-5.0); Alkaline Phosphatase 177 U/L (46-116); Anion Gap 5.5 mmol/L (3-11); BUN 23 mg/dL (7-18); Bilirubin, Total 0.2 mg/dL (0.2-1.0); C-Reactive Protein 0.92 mg/dL (0.0-0.3); CO2 29.5 mmol/L (21.0-32.0); CREATININE 1.2 mg/dL (0.70-1.30); Calcium 9.3 mg/dL (8.5-10.1); Chloride 104 mmol/L (98-107); Glucose 147 mg/dL (74-106); Potassium 5.5 mmol/L (3.5-5.1); Sodium 139 mmol/L (136-145); Total Protein 7.7 g/dL (6.4-8.2)
== END 2021-10-16 16:18 | disposition home or self-care (01) ==
LOC: NCHCN 16:17
PROVIDERS: PCP Nurse Practitioner Family
DX: M86.9 Osteomyelitis, unspecified (principal)
CPT/HCPCS: 80053; 85025; 86140

== ENCOUNTER 2021-10-23 13:34 | Outpatient (REF) | payer MEDICARE, MEDICAID, SELFPAY ==
[2021-10-23 13:14] LABS: Abs Immature Grans 0.02 10^3/uL (0.0-0.06); Absolute Eosinophil Count 0.39 10^3/uL (0.0-0.7); Absolute Monocyte Count 0.65 10^3/uL (0.1-0.8); Absolute Neutrophil Count 4.71 10^3/uL (1.2-6.7); Basophils % 1.3; Eosinophils % 5.2; HGB 12.7 g/dL (13.5-17.5); Immature Grans % 0.3; Lymphocytes % 21.4; MCH 29.1 pg (27.0-33.0); MCHC 31.8 % (32.0-36.0); MCV 91.5 fL (80-95); MPV 11.2 fL (8.0-11.0); Monocytes % 8.7; Neutrophils % 63.1; Nucleated RBC 0 %; Platelet Count 250 10^3/uL (130-400); RBC 4.37 10^6/uL (4.36-5.78); RDW 13.3 % (11.8-14.1); WBC 7.47 10^3/uL (4.4-10.8)
[2021-10-23 13:24] LABS: ALT 43 U/L (16-63); AST 41 U/L (15-37); Albumin 3.4 g/dL (3.4-5.0); Alkaline Phosphatase 174 U/L (46-116); Anion Gap 8.2 mmol/L (3-11); BUN 36 mg/dL (7-18); Bilirubin, Total 0.2 mg/dL (0.2-1.0); C-Reactive Protein 1.17 mg/dL (0.0-0.3); CO2 26.8 mmol/L (21.0-32.0); CREATININE 1.3 mg/dL (0.70-1.30); Calcium 8.9 mg/dL (8.5-10.1); Chloride 104 mmol/L (98-107); Estimated GFR 54.73 (mL/min/1.73m2); Glucose 179 mg/dL (74-106); Potassium 5.2 mmol/L (3.5-5.1); Sodium 139 mmol/L (136-145); Total Protein 7.8 g/dL (6.4-8.2)
== END 2021-10-23 13:35 | disposition home or self-care (01) ==
LOC: LBN 13:34
PROVIDERS: PCP Nurse Practitioner Family; Visit Provider Physician Assistant
DX: M86.9 Osteomyelitis, unspecified (principal)
CPT/HCPCS: 80053; 85025; 86140

== ENCOUNTER 2021-11-06 12:46 | Outpatient (REF) | payer MEDICARE, MEDICAID, SELFPAY ==
[2021-11-06 14:16] LABS: Abs Immature Grans 0.02 10^3/uL (0.0-0.06); Absolute Basophil Count 0.07 10^3/uL (0.0-0.2); Absolute Eosinophil Count 0.39 10^3/uL (0.0-0.7); Absolute Lymphocyte Count 1.82 10^3/uL (1.2-3.4); Absolute Monocyte Count 0.55 10^3/uL (0.1-0.8); Absolute Neutrophil Count 2.94 10^3/uL (1.2-6.7); Basophils % 1.2; Eosinophils % 6.7; HCT 42.7 % (40.0-50.0); HGB 13.9 g/dL (13.5-17.5); Immature Grans % 0.3; Lymphocytes % 31.4; MCH 29.9 pg (27.0-33.0); MCHC 32.6 % (32.0-36.0); MCV 91.8 fL (80-95); MPV 10.9 fL (8.0-11.0); Monocytes % 9.5; Neutrophils % 50.9; Nucleated RBC 0 %; Platelet Count 260 10^3/uL (130-400); RBC 4.65 10^6/uL (4.36-5.78); RDW 13.3 % (11.8-14.1); WBC 5.79 10^3/uL (4.4-10.8)
[2021-11-06 14:34] LABS: ALT 64 U/L (16-63); AST 36 U/L (15-37); Albumin 3.5 g/dL (3.4-5.0); Alkaline Phosphatase 154 U/L (46-116); Anion Gap 8.2 mmol/L (3-11); BUN 26 mg/dL (7-18); Bilirubin, Total 0.2 mg/dL (0.2-1.0); CO2 29.8 mmol/L (21.0-32.0); Calcium 8.6 mg/dL (8.5-10.1); Chloride 104 mmol/L (98-107); Glucose 208 mg/dL (74-106); Potassium 4.6 mmol/L (3.5-5.1); Sodium 142 mmol/L (136-145); Total Protein 7.6 g/dL (6.4-8.2)
[2021-11-06 14:45] LABS: C-Reactive Protein 0.61 mg/dL (0.0-0.3)
[2021-11-07 20:37] LABS: COVID-19 RT-PCR UVMMC Result Negative (Negative)
== END 2021-11-06 12:47 | disposition home or self-care (01) ==
LOC: LBN 12:46
PROVIDERS: PCP Nurse Practitioner Family; Visit Provider Physician Assistant
DX: M86.171 Other acute osteomyelitis, right ankle and foot (principal); Z20.822 Contact with and (suspected) exposure to COVID-19
CPT/HCPCS: 80053; U0003; U0005; 85025; 86140

== ENCOUNTER 2022-03-09 11:29 | Emergency (ER) | payer MEDICARE, MEDICAID, SELFPAY ==
[2022-03-09] VITALS (34 sets, daily range): BP systolic 114–160; BP diastolic 51–129; PULSE 81–134; RESP 4–27; TEMP 36.4–36.7; O2SAT 90–96
--- NOTE | 2022-03-09 11:30 | RT.EKG_ITS ---
APPROVED REPORT Exam: Resting ECG Reason for Exam: CHEST PAIN Patient Location: E HR:129 bpm ECG Measurements Heart Rate 129 AXIS PA 154 P 81 QRSd 95 QRS 56 QT 312 T 27 QTc 458 Conclusion Sinus tachycardia...rate> 99 Inferior infarct, old...Q >35mS, II III aVF sinus tachycardia, normal axis, nonischemic
--- NOTE | 2022-03-09 11:45 | DI.CT_ITS ---
Exam(s) CT CHEST PE CTA EXAM: CT CHEST PE CTA CLINICAL HISTORY: recent surgery, tachy, sob, recent covid; r/o PE. TECHNIQUE: Imaging Protocol: Axial CT angiography was performed with multi-slice acquisition and mu lti-planar and/or 3D reconstructions. CONTRAST MATERIAL: Intravenous: Omnipaque 350 Contrast volume:100 mL COMPARISON: CT CHEST ABD PELVIS WITH CONTRAST from 07/21/2011 FINDINGS: Tracheobronchial tree: Patent where visualized. Pulmonary parenchyma: Multifocal ground-glass opacities are present in the lungs. Emphysematous ruelas ges are present in the lungs. Pulmonary Arteries: No evidence of filling defect to suggest pulmonary emboli. Mediastinum and Shaila: Mild reactive mediastinal adenopathy. The esophagus is unremarkable. Visualized thyroid gland: Unremarkable. Pleura: No effusion or pneumothorax. Heart: The heart is not dilated. Mild coronary artery calcification. No pericardial effusion. Aorta: Thoracic aorta non-dilated. No evidence of dissection. Atherosclerosis. Upper abdomen: There is a stable right adrenal nodule. It is unchanged dating back to 2010. This l ikely reflects an adenoma. No follow-up is recommended. Soft tissues: Unremarkable. Bones: Within normal limits for the patient's age. IMPRESSION: 1. No evidence of pulmonary embolism, thoracic aortic dissection or aneurysm. 2. Multifocal ground-glass opacities. The findings are suspicious for pneumonia. 3. Results of this exam have been verbally communicated with provider. RADIATION DOSE DELIVERED: 376.58mGy.cm Total DLP DATA REPOSITORY: All CT scans at this facility are submitted to the National Radiology Data Registry (NRDR) Dose Index Registry (DIR) with the [employer] (A[employer]). RADIATION OPTIMIZATION: All CT scans at this facility use at least one of these dose optimization te chniques: automated exposure control; mA and/or kV adjustment per patient size (includes targeted exa ms where dose is matched to clinical indication); or iterative reconstruction.
--- NOTE | 2022-03-09 11:45 | DI.US_ITS ---
Exam(s) US LOWER EXTREMITY VENOUS RT EXAM: US LOWER EXTREMITY VENOUS RT CLINICAL HISTORY: recent forefoot amputation, concern for DVT TECHNIQUE: Right lower extremity venous ultrasound performed using grayscale, color-flow, and spectr al Doppler analysis. COMPARISON: No exams were available for comparison FINDINGS: The right common femoral, femoral and popliteal veins demonstrate normal compressibility, augmentatio n, and color Doppler. The posterior tibial veins are patent. The saphenofemoral junction is unremark able. There is no evidence of a Benson cyst. The soft tissues are unremarkable. IMPRESSION: No DVT. DATA REPOSITORY:
--- NOTE | 2022-03-09 11:50 | ED.GENADUL_ITS ---
Discharge Plan Disposition Patient Disposition: HOME Condition: Improving Discharge Details Chief Complaint: Palpitatns Clinical Impression: Dehydration, Hyperglycemia, Tachycardia Primary Care Provider: Galen Rivera ED Provider: Anderson Cruz Home Meds and New Rx's Prescriptions: No Action methadone 10 MG/ML concentrate 225 mg PO DAILY 0RF clonazepam 1 MG tablet 1 mg PO DAILY PRN PRN0RF metformin 500 mg tablet extended release 24 hr 500 mg PO DAILY 0RF ascorbic acid (vitamin C) [Vitamin C] 1,000 mg tablet 1,000 mg PO DAILY 0RF carvedilol 12.5 mg tablet 12.5 mg PO BID 0RF Label Comments: TAKE ONE TABLET BY MOUTH TWICE A DAY amlodipine 5 mg tablet 5 mg PO BID 0RF Label Comments: Take 1 tablet by mouth twice a day zinc 50 mg tablet 50 mg PO DAILY 0RF levothyroxine 137 mcg Tablet 137 mcg PO DAILY 0RF gabapentin 800 mg Tablet 800 mg PO QID 0RF Lantus Solostar U-100 Insulin 100 unit/mL (3 mL) Insulin Pen 20 unit SUBCUT QAM 0RF Lantus Solostar U-100 Insulin 100 unit/mL (3 mL) Insulin Pen 40 unit SUBCUT QPM 0RF Discharge Instructions Instructions: Dehydration (ED), Diabetic Hyperglycemia (ED) Additional Instructions: Please be sure to stay hydrated, continue to check your blood sugar at home, please return to the emergency department for any worsening symptomatology. Please be seen by your primary care physician. Remember to change her dressings on your foot wound regularly. Return for any signs of infection. Medical Decision Making 72-year-old male history of diabetes recent osteomyelitis with amputation, recent COVID-19 infection presents with tachycardia report states hypotension however not hypotensive in arrival, shortness of breath subjectively clear lungs bilaterally, resolved pain and swelling to right lower extremity patient history, well-healing amputation site. Tachycardia relative hypoxia, in the setting of recent surgery must consider PE versus dehydration versus less infection given no evidence of cellulitis or abscess on examination versus electrolyte abnormality versus DKA. Fluids, DVT study right lower extremity, CT PE study, labs, EKG chest x-ray close reassessment discharge pending response to fluids and results Resting comfortably no acute distress heart rate now 109, CT negative for PE residual evidence of recent Covid pneumonia, patient denies current cough or fever. Hyperglycemia patient endorses poor dietary compliance did take his insulin yesterday. Making good urine tolerating p.o. Patient received prefer to go home. Will attempt to further improve patient's heart rate and his blood sugar. Close reassessment. Heart rate now 88, patient rest comfortably continues to tolerate p.o. making good urine blood sugar now in the 400s. No evidence of acidosis or ketosis. Patient does endorse that he had been drinking orange juice at home, counseled regarding appropriate drinks for diabetic. Again patient prefers to go home and is call his son. Improving glycemic level and hydrate status, clinical presentation likely related to dehydration. HPI General Date/Time Provider Initiated Documentation: 03/09/22 11:45 . HPI Narrative: 72-year-old male history of diabetes, osteomyelitis of right toes, recent amputation, recent Covid, presents with tachycardia and shortness of breath referred in for further evaluation, denies chest pain nausea vomiting however has endorsed decreased p.o. intake due to recent Covid. Does endorse resolved pain and swelling in right lower extremity. Denies fevers or chills. Related Data Home Medications Medication Instructions Recorded Confirmed clonazepam 1 mg tablet 1 mg PO DAILY PRN PRN 04/07/13 03/09/22 methadone 10 mg/mL oral concentrate 225 mg PO DAILY 04/07/13 03/09/22 metformin 500 mg tablet,extended 500 mg PO DAILY 01/15/19 03/09/22 release 24 hr gabapentin 800 mg tablet 800 mg PO QID 12/21/19 03/09/22 insulin glargine 100 unit/mL (3 20 unit SUBCUT QAM 12/21/19 03/09/22 mL) subcutaneous pen (Lantus Solostar U-100 Insulin) insulin glargine 100 unit/mL (3 40 unit SUBCUT QPM 12/21/19 03/09/22 mL) subcutaneous pen (Lantus Solostar U-100 Insulin) levothyroxine 137 mcg tablet 137 mcg PO DAILY 12/21/19 03/09/22 amlodipine 5 mg tablet 5 mg PO BID 03/09/22 03/09/22 ascorbic acid (vitamin C) 1,000 mg 1,000 mg PO DAILY 03/09/22 03/09/22 tablet (Vitamin C) carvedilol 12.5 mg tablet 12.5 mg PO BID 03/09/22 03/09/22 zinc 50 mg tablet 50 mg PO DAILY 03/09/22 03/09/22 Allergies Allergy/AdvReac Type Severity Reaction Status Date / Time codeine AdvReac itching Unverified 03/09/22 14:02 and bloutchy naloxone HCl [From Narcan] AdvReac Unverified 03/09/22 14:02 pentazocine lactate AdvReac makes me Unverified 03/09/22 14:02 [From Talwin] deathly ill Narcotic AdvReac H/O drug Uncoded 03/09/22 14:02 abuse narcotic antagonists AdvReac Uncoded 03/09/22 14:02 General Stated Complaint: Palpitatns ANNE: 3 Review of Systems Narrative: Review of Systems Constitutional: negative Eyes: negative ENT: negative Cardiovascular: Tachycardia Respiratory: Shortness of breath Gastrointestinal: negative : negative Musculoskeletal: negative Skin: negative Neurologic: negative Psych: negative PFSH All Active Problems (Updated 03/09/22 @ 15:26 by Anderson Cruz MD) Foot infection (Acute) Cellulitis (Acute) Dehydration (Acute) Hyperglycemia (Acute) Tachycardia (Acute) Osteomyelitis of toe of right foot (Acute) MRSA bacteremia (Acute) Discharge planning issues (Acute) DVT prophylaxis (Acute) Diabetic infection of right foot (Acute) Cellulitis of foot, right (Acute) Acute kidney injury (Acute) Osteomyelitis of second toe of left foot (Acute) 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) Osteomyelitis of second toe of right foot (Acute) Substance abuse in remission (Acute) Hypertension (Chronic) Diabetes (Chronic) Medical History (Updated 03/09/22 @ 15:26 by Anderson Cruz MD) Anxiety History of amputation of great toe Toe osteomyelitis, right Right great toe Surgical History History of appendectomy History of inguinal hernia repair 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 Exam Narrative Exam Narrative: Physical Examination General: alert, awake, cooperative, resting comfortably, no acute distress HEENT: normocephalic, atraumatic; PERRL, EOM intact, conjunctiva normal; dry oral mucosa Neck: supple, trachea midline; full ROM Chest: normal to inspection Respiratory: normal respiratory effort, speaking in full sentences, clear to auscultation, no wheezing, rales or rhonchi Cardiac: Tachycardia, regular rhythm, S1S2 intact, no murmurs rubs or gallops GI: abdomen soft, non-tender, non-distended; no palpable mass or hepatosplenomegaly Skin: Poor skin turgor Neuro: AAOx3, normal speech, moving all extremities Extremities: Well-healing toe amputations on right lower extremity, granulation tissue no induration warmth or erythema, no peripheral edema noted warm well perfused extremities Psych: Appropriate mood and affect Course Vital Signs Vital signs: Vital Signs Temperature 36.4 C L 03/09/22 11:39 Pulse 130 H 03/09/22 11:39 Respiratory Rate 18 03/09/22 11:39 Blood Pressure 142/84 H 03/09/22 11:39 Pulse Oximetry 91 L 03/09/22 11:39 Temperature 36.4 C L 03/09/22 11:39 Temperature Source Temporal Artery Scan 03/09/22 11:39 Pulse 130 H 03/09/22 11:39 Respiratory Rate 18 03/09/22 11:39 Blood Pressure 142/84 H 03/09/22 11:39 Blood Pressure Position Sitting 03/09/22 11:39 Pulse Oximetry 91 L 03/09/22 11:39 Oxygen Delivery Method Room Air 03/09/22 11:39 Oxygen Flow Rate 0 03/09/22 11:39
[2022-03-09 12:17] LABS: Abs Immature Grans 0.05 10^3/uL (0.0-0.06); Absolute Basophil Count 0.06 10^3/uL (0.0-0.2); Absolute Eosinophil Count 0.33 10^3/uL (0.0-0.7); Absolute Lymphocyte Count 1.41 10^3/uL (1.2-3.4); Absolute Neutrophil Count 5.07 10^3/uL (1.2-6.7); Basophils % 0.8; Eosinophils % 4.3; HCT 40.3 % (40.0-50.0); HGB 12.5 g/dL (13.5-17.5); Immature Grans % 0.6; Lymphocytes % 18.3; MCH 29.2 pg (27.0-33.0); MCV 94.2 fL (80-95); MPV 10.8 fL (8.0-11.0); Monocytes % 10.4; Neutrophils % 65.6; Platelet Count 238 10^3/uL (130-400); RBC 4.28 10^6/uL (4.36-5.78); RDW 13.6 % (11.8-14.1); RDW-SD 46.5 fL; WBC 7.72 10^3/uL (4.4-10.8)
[2022-03-09 12:31] LABS: INR 1.1 (0.9-1.1); PTT Activated 25.6 sec (21.0-27.5)
[2022-03-09 12:42] LABS: ALT 40 U/L (16-63); AST 30 U/L (15-37); Albumin 2.7 g/dL (3.4-5.0); Alkaline Phosphatase 146 U/L (46-116); Anion Gap 5.6 mmol/L (3-11); BUN 24 mg/dL (7-18); Bilirubin, Total 0.4 mg/dL (0.2-1.0); CO2 30.4 mmol/L (21.0-32.0); CREATININE 1.3 mg/dL (0.70-1.30); Calcium 9.2 mg/dL (8.5-10.1); Chloride 96 mmol/L (98-107); Estimated GFR 54.57 (mL/min/1.73m2); Lipase 131 U/L (73-393); Magnesium 1.9 mg/dL (1.8-2.4); NT-proBNP 102 pg/mL (<300); Potassium 5.1 mmol/L (3.5-5.1); Sodium 132 mmol/L (136-145); Total Protein 8.5 g/dL (6.4-8.2); Troponin I < 50 ng/L (<or=60)
[2022-03-09 12:44] LABS: Glucose 746 mg/dL (74-106)
[2022-03-09] MEDS: Omnipaque 350 MG/ML 100 ML BTL IJ (12:55)
[2022-03-09] MEDS: Insulin REGULAR-Human 100 UNITS/ML UNIT 8 UNITS IV (13:24)
[2022-03-09 13:30] LABS: BE (Venous) 5 mmol/L (-2-3); HCO3 (Venous) 31 mmol/L (23-28); O2 Sat (Venous) 66 %; TCO2 (Venous) 28 mmol/L (24-29); pCO2 (Venous) 53 mmHg (41-51); pH (Venous) 7.37 (7.31-7.41); pO2 (Venous) 34 mmHg
[2022-03-09] MEDS: Normal Saline 1,000 ML 1000 ML IV (13:40)
[2022-03-09 14:10] LABS: Bilirubin Negative (Negative); Blood Trace-intact (Negative); Clarity Clear (Clear); Glucose 500 mg/dL (Negative); Ketones Negative (Negative); Leukocyte Esterase Negative (Negative); Nitrite Negative (Negative); Urobilinogen 0.2 EU/dL (Up TO 0.2)
[2022-03-09 14:18] LABS: RBC 0-2 HPF (0-2); WBC 0-2 HPF (0-5)
[2022-03-09 14:19] LABS: Bacteria Negative HPF (Negative); C & S Indicated? No; Crystals Negative HPF (Negative); Epithelial Cells Negative HPF (Negative); Mucus Negative (Negative)
[2022-03-09 14:21] LABS: *AMPHETAMINES SCREEN URINE Negative (Negative); *BARBITURATES SCREEN URINE Negative (Negative); *BENZODIAZEPINES SCREEN URINE Negative (Negative); Cannabinoids THC Negative (Negative); Cocaine Screen,Urine Negative (Negative); METHADONE URINE SCREEN Positive (Negative); OPIATES URINE SCREEN Negative (Negative)
[2022-03-09 14:23] LABS: Tricyclic Antidepressants Negative (Negative)
[2022-03-09 15:13] LABS: Troponin I < 50 ng/L (<or=60)
== END 2022-03-09 15:47 | disposition home or self-care (01) ==
PROVIDERS: Registered Nurse Emergency; Emergency Provider Emergency Medicine; PCP Nurse Practitioner Family
DX: E86.0 Dehydration (principal); R00.0 Tachycardia, unspecified; E11.65 Type 2 diabetes mellitus with hyperglycemia; R06.02 Shortness of breath; F11.20 Opioid dependence, uncomplicated; Z89.431 Acquired absence of right foot; R07.9 Chest pain, unspecified; Z86.16 Personal history of COVID-19
CPT/HCPCS: 36415; 36416; 71275; 80053; 80307; 82805; 82962; 83690; 93005; 96361; 96374; 99285; 81003; 81015; 83735; 83880; 84484; 85025; 85610; 85730; 93010; 93971; J3490

== ENCOUNTER 2022-06-13 09:38 | Inpatient (IN) | payer MEDICARE, MEDICAID, SELFPAY ==
[2022-06-13] VITALS (19 sets, daily range): BP systolic 146–178; BP diastolic 65–93; PULSE 78–117; RESP 18–20; TEMP 37–37.4; O2SAT 91–96
--- NOTE | 2022-06-13 10:15 | DI.RAD_ITS ---
Exam(s) XR TOE LT GREAT EXAM: XR TOE LT GREAT CLINICAL HISTORY: infection, trauma. TECHNIQUE: 2D digital imaging was performed. Three views. COMPARISON: CR,XR XR TOE LT GREAT from 12/20/2019 CR XR FOOT RT LIMITED from 02/02/2020 CR,XR XR FOOT RT COMPLETE from 06/12/2021 CR,XR XR FOOT RT COMPLETE from 08/29/2021 FINDINGS: BONES: Severe destruction of the distal phalanx of the great toe, down to the proximal 3rd. The ther e has been progression when compared with the previous exam. The findings are highly suspicious for osteomyelitis. The proximal phalanx appears intact. No acute fracture is present. JOINTS: No dislocation present. SOFT TISSUE: Marked soft tissue swelling as well as ulcer surrounding the distal phalanx of the great toe. IMPRESSION: Osteomyelitis of the distal phalanx of the great toe with severe bony destruction down to the base. DATA REPOSITORY: RADIATION DOSE DELIVERED:
--- NOTE | 2022-06-13 10:27 | ED.GENADUL_ITS ---
Discharge Plan Disposition Patient Disposition: [facility] INPATIENT Condition: Serious Discharge Details Chief Complaint: Cellulitis Clinical Impression: Osteomyelitis of great toe of left foot, Hyperglycemia Primary Care Provider: Galen Rivera ED Provider: Nolan Cartagena Home Meds and New Rx's Prescriptions: No Action methadone 10 MG/ML concentrate 225 mg PO DAILY clonazepam 1 MG tablet 1 mg PO DAILY PRN PRN metformin 500 mg tablet extended release 24 hr 500 mg PO DAILY ascorbic acid (vitamin C) [Vitamin C] 1,000 mg tablet 1,000 mg PO DAILY carvedilol 12.5 mg tablet 12.5 mg PO BID Label Comments: TAKE ONE TABLET BY MOUTH TWICE A DAY amlodipine 5 mg tablet 5 mg PO BID Label Comments: Take 1 tablet by mouth twice a day zinc 50 mg tablet 50 mg PO DAILY MediHoney (honey) 80 % gel 1 applic topical DAILY PRNQty: 44 0RF levothyroxine 137 mcg Tablet 137 mcg PO DAILY gabapentin 800 mg Tablet 800 mg PO QID insulin glargine [Lantus Solostar U-100 Insulin] 100 unit/mL (3 mL) Insulin Pen 20 unit SUBCUT QAM insulin glargine [Lantus Solostar U-100 Insulin] 100 unit/mL (3 mL) Insulin Pen 40 unit SUBCUT QPM Medical Decision Making [age] --72-year-old male with history of insulin-dependent diabetes, neuropathy, MRSA labs reviewed and patient is hyperglycemic. With osteomyelitis of his right foot now status post partial amputation, here with significant inflammation of his left great toe refractory to treatment with unknown antibiotic. Patient has a severe cellulitis of his left great toe with extension into his foot. Concern for osteomyelitis. Plan to initiate antibiotic coverage with cefepime and will also add vancomycin for MRSA cove rage. Patient is tachycardic raising concern for systemic inflammation. Currently normotensive and afebrile. Will check lactate and blood cultures. I will also administer IV fluid bolus. Consider hyperglycemia we will check labs. -- Labs reviewed and patient is hyperglycemic. I consulted podiatry and Dr. Zhao evaluated the patient. He feels that patient likely benefit from partial amputation but patient is refusing this treatment at this time. Dr. Zhao did perform wound cultures which have been ordered and are pending. Pt is agreeable to IV antibiotics and admission. I called and spoke with the hospitalist, Lola Lira VACCINATOR, discussed ED presentation course. She will admit the patient. Lab Data Lab results reviewed: Yes I reviewed the patient's lab results. Labs: 06/13/22 12:45 Toe - Left Big Toe Anaerobic Culture - Pending 06/13/22 12:45 Toe - Left Big Toe Wound Culture - Pending 06/13/22 12:45 Toe - Left Big Toe Gram Stain - Pending 06/13/22 11:28 Blood Blood Culture - Pending 06/13/22 10:45 Blood Blood Culture - Pending Laboratory Tests Range/Units 06/13/22 06/13/22 06/13/22 10:42 10:42 10:42 WBC (4.4-10.8) 10^3/uL 11.50 H RBC (4.36-5.78) 10^6/uL 3.90 L Hgb (13.5-17.5) g/dL 11.4 L Hct (40.0-50.0) % 34.9 L MCV (80-95) fL 90 MCH (27.0-33.0) pg 29.2 MCHC (32.0-36.0) % 32.7 RDW (11.8-14.1) % 12.4 Plt Count (130-400) 10^3/uL 310 MPV (8.0-11.0) fL 10.4 Immature Gran % 0.5 Neutrophils % 77.6 Lymphocytes % 9.7 Monocytes % 9.8 Eosinophils % 1.7 Basophils % 0.7 Nucleated RBC % (0.0-0.3) % 0.0 Absolute Neutrophils (1.2-6.7) 10^3/uL 8.92 H Absolute Lymphocytes (1.2-3.4) 10^3/uL 1.12 L Absolute Monocytes (0.1-0.8) 10^3/uL 1.13 H Absolute Eosinophils (0.0-0.7) 10^3/uL 0.20 Absolute Basophils (0.0-0.2) 10^3/uL 0.08 VBG Lactate (0.6-1.4) mmol/L 1.9 H Sodium (136-145) mmol/L 129 L Potassium (3.5-5.1) mmol/L 4.6 Chloride (98-107) mmol/L 95 L Carbon Dioxide (21.0-32.0) mmol/L 27.4 Anion Gap (3-11) mmol/L 6.6 BUN (7-18) mg/dL 37 H Creatinine (0.70-1.30) mg/dL 1.3 Estimated GFR/1.73 m2 (mL/min/1.73m2) 54.57 Glucose (74-106) mg/dL 525 H* Calcium (8.5-10.1) mg/dL 8.5 Total Bilirubin (0.2-1.0) mg/dL 0.7 AST (15-37) U/L 21 ALT (16-63) U/L 24 Alkaline Phosphatase (46-116) U/L 140 H Total Protein (6.4-8.2) g/dL 8.1 Albumin (3.4-5.0) g/dL 2.4 L COVID-19 Source Range/Units 06/13/22 10:48 WBC (4.4-10.8) 10^3/uL RBC (4.36-5.78) 10^6/uL Hgb (13.5-17.5) g/dL Hct (40.0-50.0) % MCV (80-95) fL MCH (27.0-33.0) pg MCHC (32.0-36.0) % RDW (11.8-14.1) % Plt Count (130-400) 10^3/uL MPV (8.0-11.0) fL Immature Gran % Neutrophils % Lymphocytes % Monocytes % Eosinophils % Basophils % Nucleated RBC % (0.0-0.3) % Absolute Neutrophils (1.2-6.7) 10^3/uL Absolute Lymphocytes (1.2-3.4) 10^3/uL Absolute Monocytes (0.1-0.8) 10^3/uL Absolute Eosinophils (0.0-0.7) 10^3/uL Absolute Basophils (0.0-0.2) 10^3/uL VBG Lactate (0.6-1.4) mmol/L Sodium (136-145) mmol/L Potassium (3.5-5.1) mmol/L Chloride (98-107) mmol/L Carbon Dioxide (21.0-32.0) mmol/L Anion Gap (3-11) mmol/L BUN (7-18) mg/dL Creatinine (0.70-1.30) mg/dL Estimated GFR/1.73 m2 (mL/min/1.73m2) Glucose (74-106) mg/dL Calcium (8.5-10.1) mg/dL Total Bilirubin (0.2-1.0) mg/dL AST (15-37) U/L ALT (16-63) U/L Alkaline Phosphatase (46-116) U/L Total Protein (6.4-8.2) g/dL Albumin (3.4-5.0) g/dL COVID-19 Source Nasal/Nares HPI General Mode of arrival: ambulatory . Date/Time Provider Initiated Documentation: 06/13/22 10:24 . Limitations to Documentation: no limitations . Information obtained by: patient . HPI Narrative: 72-year-old male with history of prior MRSA maintenance prior right foot infection status post partial foot amputation, insulin-dependent diabetes, here with infection of his left great toe. Patient notes he tripped and thinks he may have injured his left great toe 1 to 2 weeks ago. He subsequently developed swelling and inflammation which he has been treating with peroxide topically as well as an unknown antibiotic that was prescribed to a family member. Inflammation is worsening, now severe, no modifiers. He has mild pain in the toe but does note history of neuropathy with decreased sensation in his feet. Patient denies associated fever. Related Data Home Medications Medication Instructions Recorded Confirmed clonazepam 1 mg tablet 1 mg PO DAILY PRN PRN 04/07/13 06/13/22 methadone 10 mg/mL oral concentrate 225 mg PO DAILY 04/07/13 06/13/22 metformin 500 mg tablet,extended 500 mg PO DAILY 01/15/19 06/13/22 release 24 hr gabapentin 800 mg tablet 800 mg PO QID 12/21/19 06/13/22 insulin glargine 100 unit/mL (3 20 unit subcut QAM 12/21/19 06/13/22 mL) subcutaneous pen (Lantus Solostar U-100 Insulin) insulin glargine 100 unit/mL (3 40 unit subcut QPM 12/21/19 06/13/22 mL) subcutaneous pen (Lantus Solostar U-100 Insulin) levothyroxine 137 mcg tablet 137 mcg PO DAILY 12/21/19 06/13/22 amlodipine 5 mg tablet 5 mg PO BID 04/15/22 07/20/22 ascorbic acid (vitamin C) 1,000 mg 1,000 mg PO DAILY 03/09/22 06/13/22 tablet (Vitamin C) carvedilol 12.5 mg tablet 12.5 mg PO BID 03/09/22 06/13/22 honey 80 % topical gel (MediHoney 1 applic topical DAILY PRN #44 mL 03/09/22 06/13/22 (honey)) zinc 50 mg tablet 50 mg PO DAILY 03/09/22 06/13/22 Previous Rx's Medication Instructions Recorded honey 80 % topical gel (MediHoney 1 applic topical DAILY PRN #44 mL 03/09/22 (honey)) Allergies Allergy/AdvReac Type Severity Reaction Status Date / Time codeine AdvReac itching Unverified 06/13/22 09:53 and bloutchy naloxone HCl [From Narcan] AdvReac Unverified 06/13/22 09:53 pentazocine lactate AdvReac makes me Unverified 06/13/22 09:53 [From Erica] deathly ill Narcotic AdvReac H/O drug Uncoded 06/13/22 09:53 abuse narcotic antagonists AdvReac Uncoded 06/13/22 09:53 General Stated Complaint: Cellulitis ANNE: 3 Review of Systems All systems reviewed & are unremarkable except as noted in HPI and below Constitutional Constitutional: Denies fever(s) Integumentary/Breasts Skin/Breast: Reports rash (Extending up the lower lt leg) PFSH All Active Problems (Updated 06/13/22 @ 13:17 by Nolan Cartagena MD) Osteomyelitis of great toe of left foot (Acute) Hyperglycemia (Acute) Hypothyroidism (Chronic) Osteomyelitis due to type 2 diabetes mellitus (Acute) left great toe Foot infection (Acute) Cellulitis (Acute) Osteomyelitis of toe of right foot (Acute) MRSA bacteremia (Acute) Discharge planning issues (Acute) DVT prophylaxis (Acute) Diabetic infection of right foot (Acute) Cellulitis of foot, right (Acute) Acute kidney injury (Acute) Osteomyelitis of second toe of left foot (Acute) 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) Osteomyelitis of second toe of right foot (Acute) Substance abuse in remission (Acute) Hypertension (Chronic) Diabetes (Chronic) Medical History (Updated 06/13/22 @ 13:17 by Nolan Cartagena MD) Anxiety History of amputation of great toe Toe osteomyelitis, right Right great toe Surgical History History of appendectomy History of inguinal hernia repair 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 Exam Const General: cooperative and no acute distress HENMT Mouth: moist mucous membranes Eyes Conjunctivae: normal conjunctivae Sclera: normal sclerae Resp Auscultation: clear to auscultation bilaterally, no rales, no rhonchi and no wheezes Cardio Rate: regular rate and not tachycardic Rhythm: regular rhythm GI Palpation: soft, not firm, no guarding, no masses, not rigid and nontender Skin Rashes: rashes noted (See foot exam, mild erythema extending up distal left lower leg) Neuro General: patient alert, patient awake, patient oriented x3 and tone normal Extrem Left lower extremity: foot Details: edema Location: of the great toe Other: Swollen, discolored, inflamed left great toe with draining discharge Psych Appearance: grossly normal Mental Status: mental status grossly normal Course Vital Signs Vital signs: Vital Signs Temperature 37.2 C 06/13/22 09:48 Pulse 117 H 06/13/22 09:48 Respiratory Rate 06/13/22 09:48 Blood Pressure 178/70 H 06/13/22 09:48 Pulse Oximetry 94 06/13/22 09:48 Temperature 37.2 C 06/13/22 09:48 Temperature Source Temporal Artery Scan 06/13/22 09:48 Pulse 117 H 06/13/22 09:48 Respiratory Rate 20 06/13/22 09:48 Respiratory Effort 06/13/22 09:52 Blood Pressure 178/70 H 06/13/22 09:48 Blood Pressure Position Sitting 06/13/22 09:48 Pulse Oximetry 94 06/13/22 09:48 Oxygen Delivery Method Room Air 06/13/22 09:48 Oxygen Flow Rate 0 06/13/22 09:48 Pain Level 6 06/13/22 09:48 Lab/Test Results Lab/Test Results: 06/13/22 10:24 Blood Blood Culture - Pending 06/13/22 10:24 Blood Blood Culture - Pending
[2022-06-13 10:54] LABS: Lactate 1.9 mmol/L (0.6-1.4)
[2022-06-13 10:55] LABS: Source Nasal/Nares
[2022-06-13 10:55] LABS: Abs Immature Grans 0.06 10^3/uL (0.0-0.06); Absolute Basophil Count 0.08 10^3/uL (0.0-0.2); Absolute Lymphocyte Count 1.12 10^3/uL (1.2-3.4); Absolute Monocyte Count 1.13 10^3/uL (0.1-0.8); Absolute Neutrophil Count 8.92 10^3/uL (1.2-6.7); Basophils % 0.7; Eosinophils % 1.7; HCT 34.9 % (40.0-50.0); HGB 11.4 g/dL (13.5-17.5); Immature Grans % 0.5; Lymphocytes % 9.7; MCH 29.2 pg (27.0-33.0); MCHC 32.7 % (32.0-36.0); MCV 90 fL (80-95); MPV 10.4 fL (8.0-11.0); Monocytes % 9.8; Neutrophils % 77.6; Platelet Count 310 10^3/uL (130-400); RDW 12.4 % (11.8-14.1); RDW-SD 40.8 fL
[2022-06-13 11:17] LABS: ALT 24 U/L (16-63); AST 21 U/L (15-37); Albumin 2.4 g/dL (3.4-5.0); Alkaline Phosphatase 140 U/L (46-116); Anion Gap 6.6 mmol/L (3-11); BUN 37 mg/dL (7-18); Bilirubin, Total 0.7 mg/dL (0.2-1.0); CO2 27.4 mmol/L (21.0-32.0); CREATININE 1.3 mg/dL (0.70-1.30); Calcium 8.5 mg/dL (8.5-10.1); Chloride 95 mmol/L (98-107); Estimated GFR 54.57 (mL/min/1.73m2); Potassium 4.6 mmol/L (3.5-5.1); Sodium 129 mmol/L (136-145); Total Protein 8.1 g/dL (6.4-8.2)
[2022-06-13 11:26] LABS: Glucose 525 mg/dL (74-106)
[2022-06-13] MEDS: Lactated Ringers 1,000 ML 1000 ML IV (11:46)
[2022-06-13] MEDS: CEFEPIME 2 GM in Normal Saline 100 ML IVPB ×2 (11:46→20:49)
[2022-06-13] MEDS: VANCOMYCIN/WATER (PEG) 2 GM/400 ML BAG IVPB (12:20)
--- NOTE | 2022-06-13 12:55 | HPE_ITS ---
Date of service: 06/13/22 Time of Service: 12:55 Assessment and Plan Assessment and plan (1) Osteomyelitis due to type 2 diabetes mellitus: Status: Acute Assessment and plan: seen by Dr salcedo in ED and debrided, recommendations for amputation. wound cultures pending continue vancomycin and cefepime day 1 elevate above level of heart as much as possible follow inflammatory markers. patient wants to avoid amputation (2) 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: Status: Chronic Assessment and plan: blood sugars elevated on admission diabetic diet blood sugar checks with coverage ac/hs continue home lantus check hemoglobin A1C diabetes management consultation (3) Hypertension: Status: Chronic Assessment and plan: continue to monitor and adjust home medication as needed Qualifiers: Hypertension type: primary hypertension Qualified Code(s): I10 - Essential (primary) hypertension (4) Substance abuse in remission: Status: Acute Assessment and plan: continue home methadone dosing (5) Hypothyroidism: Status: Chronic Assessment and plan: check TSH continue synthroid (6) DVT prophylaxis: Status: Acute Assessment and plan: enoxaparin (7) Discharge planning issues: Status: Acute Assessment and plan: case management following anticipate discharge to home when medically stable discussed with DR Perdue History of Present Illness History of Present Illness Chief Complaint: left great toe infection Narrative: This is a 72 year old male with history of MRSA bactermia, diabetic foot infection, poorly controlled diabetes with peripheral neuropathy, history of sub stance abuse on methadone who presented to the ED for evaluation of worsening left toe redness, now extending up his leg. His work up in the ED shows osteomyelitis on plain film. Dr Salcedo was consulted and evaluated him in the ED, he debrided the area and obtained cultures which are pending. His was given vancomycin and cefepime while results are pending. hospitalist services was contacted for admission. Review of Systems All systems reviewed & are unremarkable except as noted in HPI and below Constitutional Constitutional: Denies fever(s) Integumentary/Breasts Skin/Breast: Reports erythema (left great toe extending up leg) and Reports sores (left great toe) PFSH All Active Problems (Updated 06/13/22 @ 13:17 by Nolan Cartagena MD) Osteomyelitis of great toe of left foot (Acute) Hyperglycemia (Acute) Hypothyroidism (Chronic) Osteomyelitis due to type 2 diabetes mellitus (Acute) left great toe Foot infection (Acute) Cellulitis (Acute) Osteomyelitis of toe of right foot (Acute) MRSA bacteremia (Acute) Discharge planning issues (Acute) DVT prophylaxis (Acute) Diabetic infection of right foot (Acute) Cellulitis of foot, right (Acute) Acute kidney injury (Acute) Osteomyelitis of second toe of left foot (Acute) 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) Osteomyelitis of second toe of right foot (Acute) Substance abuse in remission (Acute) Hypertension (Chronic) Diabetes (Chronic) Medical History (Updated 06/13/22 @ 13:17 by Nolan Cartagena MD) Anxiety History of amputation of great toe Toe osteomyelitis, right Right great toe Surgical History History of appendectomy History of inguinal hernia repair 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 Meds Allergies and Home Medications Allergies Allergy/AdvReac Type Severity Reaction Status Date / Time codeine AdvReac itching Unverified 06/13/22 09:53 and bloutchy naloxone HCl [From Narcan] AdvReac Unverified 06/13/22 09:53 pentazocine lactate AdvReac makes me Unverified 06/13/22 09:53 [From Erica] deathly ill Narcotic AdvReac H/O drug Uncoded 06/13/22 09:53 abuse narcotic antagonists AdvReac Uncoded 06/13/22 09:53 Home Medications Medication Instructions Recorded Confirmed Type clonazepam 1 mg tablet 1 mg PO DAILY PRN PRN 04/07/13 06/13/22 History methadone 10 mg/mL oral concentrate 225 mg PO DAILY 04/07/13 06/13/22 History metformin 500 mg tablet,extended 500 mg PO DAILY 01/15/19 06/13/22 History release 24 hr gabapentin 800 mg tablet 800 mg PO QID 12/21/19 06/13/22 History insulin glargine 100 unit/mL (3 20 unit subcut QAM 12/21/19 06/13/22 History mL) subcutaneous pen (Lantus Solostar U-100 Insulin) insulin glargine 100 unit/mL (3 40 unit subcut QPM 12/21/19 06/13/22 History mL) subcutaneous pen (Lantus Solostar U-100 Insulin) levothyroxine 137 mcg tablet 137 mcg PO DAILY 12/21/19 06/13/22 History amlodipine 5 mg tablet 5 mg PO BID 03/09/22 06/13/22 History ascorbic acid (vitamin C) 1,000 mg 1,000 mg PO DAILY 03/09/22 06/13/22 History tablet (Vitamin C) carvedilol 12.5 mg tablet 12.5 mg PO BID 03/09/22 06/13/22 History honey 80 % topical gel ([employer]ney 1 applic topical DAILY PRN #44 mL 03/09/22 06/13/22 Rx (honey)) zinc 50 mg tablet 50 mg PO DAILY 03/09/22 06/13/22 History Exam Const General: cooperative, frail appearing and ill appearing chronically Nutritional Appearance: average body habitus Orientation: alert, awake and oriented x3 HENMT Head: normal to inspection, normocephalic and atraumatic Mouth: oral mucosae normal Neck Neck: normal visual inspection Chest Chest: normal inspection of the chest Resp Effort & Inspection: normal respiratory effort Cardio Rate: regular rate Rhythm: regular rhythm GI Inspection: normal to inspection Palpation: soft Auscultation: normal bowel sounds Skin Lesions: lesion noted (right forefoot with ulcer with dry wound bed, left great toe not visualized) and other (dressing to left great toe intact, redness extending up leg just above ankl) Neuro General: patient alert, patient awake and patient oriented x3 Extrem Right lower extremity: foot Details: other (amputation of all toes, wound to amputation site, see nursing doc for description) Results Labs Result diagrams: 06/13/22 10:42 06/13/22 10:42 Labs: Laboratory Results - last 24 hr 06/13/22 06/13/22 06/13/22 10:42 10:42 10:42 WBC 11.50 H RBC 3.90 L Hgb 11.4 L Hct 34.9 L MCV 90 MCH 29.2 MCHC 32.7 RDW 12.4 Plt Count 310 MPV 10.4 Immature Gran % 0.5 Neutrophils % 77.6 Lymphocytes % 9.7 Monocytes % 9.8 Eosinophils % 1.7 Basophils % 0.7 Nucleated RBC % 0.0 Absolute Neutrophils 8.92 H Absolute Lymphocytes 1.12 L Absolute Monocytes 1.13 H Absolute Eosinophils 0.20 Absolute Basophils 0.08 VBG Lactate 1.9 H Sodium 129 L Potassium 4.6 Chloride 95 L Carbon Dioxide 27.4 Anion Gap 6.6 BUN 37 H Creatinine 1.3 Estimated GFR/1.73 m2 54.57 Glucose 525 H* Calcium 8.5 Total Bilirubin 0.7 AST 21 ALT 24 Alkaline Phosphatase 140 H Total Protein 8.1 Albumin 2.4 L COVID-19 Source 06/13/22 10:48 WBC RBC Hgb Hct MCV MCH MCHC RDW Plt Count MPV Immature Gran % Neutrophils % Lymphocytes % Monocytes % Eosinophils % Basophils % Nucleated RBC % Absolute Neutrophils Absolute Lymphocytes Absolute Monocytes Absolute Eosinophils Absolute Basophils VBG Lactate Sodium Potassium Chloride Carbon Dioxide Anion Gap BUN Creatinine Estimated GFR/1.73 m2 Glucose Calcium Total Bilirubin AST ALT Alkaline Phosphatase Total Protein Albumin COVID-19 Source Nasal/Nares Last Vital Signs Temp 37.2 C 06/13/22 09:48 Pulse 98 H 06/13/22 12:15 Resp 20 06/13/22 09:48 BP 164/79 H 06/13/22 12:15 Pulse Ox 94 06/13/22 09:48
[2022-06-13] MEDS: Normal Saline 1,000 ML 125 ML IV (13:10)
[2022-06-13 13:17] LABS: C-Reactive Protein 23.63 mg/dL (0.0-0.3)
[2022-06-13 13:24] LABS: Hemoglobin A1C 11.1 % (<5.7)
[2022-06-13 13:30] LABS: TSH (W/Ref FT4) 2.36 uIU/mL (0.36-3.74)
[2022-06-13] MEDS: Insulin REGULAR-Human 100 UNITS/ML UNIT 8 UNITS SC (14:19)
[2022-06-13 14:28] LABS: COVID-19 PCR Negative (Negative)
[2022-06-13] MEDS: Gabapentin 400 MG CAP 800 MG PO ×2 (17:13→20:51)
[2022-06-13 17:19] LABS: Glucose 397 mg/dL (74-106)
[2022-06-13] MEDS: Insulin Aspart 300 UNITS/3 ML PEN SC ×2 (17:23→20:51)
--- NOTE | 2022-06-13 19:02 | POCOE_ITS ---
Date of service: 06/13/22 Time of Service: 12:00 History of Present Illness History of Present Illness Chief Complaint: left hallux infection with cellulites Narrative: 72 YO, poorly controlled DM with neuropathy, presented to the ED with worsening signs of infection in his left great toe. He has had an ulcer for many months and has been self treating. 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) Osteomyelitis of second toe of right foot (Acute) Substance abuse in remission (Acute) Hypertension (Chronic) Diabetes (Chronic) Medical History Anxiety History of amputation of great toe Toe osteomyelitis, right Right great toe Surgical History History of appendectomy History of inguinal hernia repair 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 Peripheral puses are palpable, CFT is under 5 sec, feet are warm to touch, calves soft to palpation. The left hallux is grossly edematous with gnagrenous changes over the dorsum of the toe extending to the MPJ level. An ulcer is noted at the tip of the toe that tracks to bone. Bloody, serous drainage is noted coming the tip of the toe and the proximal margin of the necrostic area. The medial and lateral sides of the hallux are blistered. Erythema is noted throughout the hallux with cellulites extending to the ankle. The right foot shows a previous TMA with an ulcer noted over the medial aspect of the 1st metatarsal area. No active signs ofinfection at this level. He is densly neuropathic. Plan: I recommended an open amputation of the hallux at the MPJ level. to stop the injection and to remove the infected tissue. Darwin refused citing his belief in divine intervention and lorene in antibiotics. I did inform him that waiting could cause more tissue to become infected and possibly require a more extensive debridement. With a #10 scalpel and machine operator hop picker, I degloved the dorsum of the hallux but the tissue did not bleed significantly and the level of necrosis was indeterminate. I made a stab incision enlarging the ulcer at the tip of the hallux and obtained deep cultures from the wound and distal phalanx which radiologically shows evidence of osteomyelitis. This was sent out for gm stain, aerobic and anaerobic cultures. A bulky gauze dressing was applied. I agree with admission, bed rest, Vanco and cefepime pending cultures. His crp was over 23, BS 397, HbA1C over 11. Track inflammatory markers, control his hyperglycemia and continue to discuss treatment options with Darwin. I discussed the case with the Hospitalist. Results Last Vital Signs Temp 37.4 C 06/13/22 14:52 Pulse 94 H 06/13/22 14:52 Resp 19 06/13/22 14:52 BP 169/92 H 06/13/22 14:52 Pulse Ox 96 06/13/22 14:52 Labs Result diagrams: 06/13/22 10:42 06/13/22 17:00 Labs: Laboratory Results - last 24 hr 06/13/22 06/13/22 06/13/22 10:42 10:42 10:42 WBC 11.50 H RBC 3.90 L Hgb 11.4 L Hct 34.9 L MCV 90 MCH 29.2 MCHC 32.7 RDW 12.4 Plt Count 310 MPV 10.4 Immature Gran % 0.5 Neutrophils % 77.6 Lymphocytes % 9.7 Monocytes % 9.8 Eosinophils % 1.7 Basophils % 0.7 Nucleated RBC % 0.0 Absolute Neutrophils 8.92 H Absolute Lymphocytes 1.12 L Absolute Monocytes 1.13 H Absolute Eosinophils 0.20 Absolute Basophils 0.08 VBG Lactate 1.9 H Sodium 129 L Potassium 4.6 Chloride 95 L Carbon Dioxide 27.4 Anion Gap 6.6 BUN 37 H Creatinine 1.3 Estimated GFR/1.73 m2 54.57 Glucose 525 H* Hemoglobin A1c Calcium 8.5 Total Bilirubin 0.7 AST 21 ALT 24 Alkaline Phosphatase 140 H C-Reactive Protein Total Protein 8.1 Albumin 2.4 L TSH COVID-19 Source SARS-CoV-2 (PCR) 06/13/22 06/13/22 06/13/22 10:42 10:42 10:42 WBC RBC Hgb Hct MCV MCH MCHC RDW Plt Count MPV Immature Gran % Neutrophils % Lymphocytes % Monocytes % Eosinophils % Basophils % Nucleated RBC % Absolute Neutrophils Absolute Lymphocytes Absolute Monocytes Absolute Eosinophils Absolute Basophils VBG Lactate Sodium Potassium Chloride Carbon Dioxide Anion Gap BUN Creatinine Estimated GFR/1.73 m2 Glucose Hemoglobin A1c 11.1 H Calcium Total Bilirubin AST ALT Alkaline Phosphatase C-Reactive Protein 23.63 H Total Protein Albumin TSH 2.36 COVID-19 Source SARS-CoV-2 (PCR) 06/13/22 06/13/22 06/13/22 10:48 14:08 17:00 WBC RBC Hgb Hct MCV MCH MCHC RDW Plt Count MPV Immature Gran % Neutrophils % Lymphocytes % Monocytes % Eosinophils % Basophils % Nucleated RBC % Absolute Neutrophils Absolute Lymphocytes Absolute Monocytes Absolute Eosinophils Absolute Basophils VBG Lactate Sodium Potassium Chloride Carbon Dioxide Anion Gap BUN Creatinine Estimated GFR/1.73 m2 Glucose 397 H Hemoglobin A1c Calcium Total Bilirubin AST ALT Alkaline Phosphatase C-Reactive Protein Total Protein Albumin TSH COVID-19 Source Nasal/Nares Cancelled SARS-CoV-2 (PCR) Negative Cancelled
[2022-06-13] MEDS: clonazePAM 1 MG TAB PO (20:51)
[2022-06-13] MEDS: amLODIPine 5 MG TAB PO (20:51)
[2022-06-13] MEDS: Carvedilol 12.5 MG TAB PO (20:51)
[2022-06-13] MEDS: Insulin Glargine 300 UNITS/3 ML PEN 40 UNITS SC (20:53)
--- NOTE | 2022-06-13 23:51 | NUR.NOTE ---
Per Waiter/Waitress Head order; Silvadene cream applied to Left Great Toe. Non adherent DSG placed over wound site, then lightly wrapped with rolled gauze and taped to secure DSG.
[2022-06-14] MEDS: CEFEPIME 2 GM in Normal Saline 100 ML IVPB ×3 (03:19→19:50)
[2022-06-14] MEDS: VANCOMYCIN/WATER (PEG) 1.5 GM/300 ML BAG IV (04:05)
[2022-06-14] MEDS: Normal Saline 1,000 ML 125 ML IV (06:21)
[2022-06-14 06:49] LABS: Abs Immature Grans 0.03 10^3/uL (0.0-0.06); Absolute Basophil Count 0.07 10^3/uL (0.0-0.2); Absolute Eosinophil Count 0.57 10^3/uL (0.0-0.7); Absolute Lymphocyte Count 1.89 10^3/uL (1.2-3.4); Absolute Monocyte Count 1.04 10^3/uL (0.1-0.8); Absolute Neutrophil Count 5.54 10^3/uL (1.2-6.7); Basophils % 0.8; Eosinophils % 6.2; HCT 32.5 % (40.0-50.0); HGB 10.6 g/dL (13.5-17.5); Immature Grans % 0.3; Lymphocytes % 20.7; MCH 29.3 pg (27.0-33.0); MCHC 32.6 % (32.0-36.0); MCV 90 fL (80-95); MPV 10.5 fL (8.0-11.0); Monocytes % 11.4; Neutrophils % 60.6; Platelet Count 272 10^3/uL (130-400); RBC 3.62 10^6/uL (4.36-5.78); RDW 12.4 % (11.8-14.1); RDW-SD 40.4 fL; WBC 9.14 10^3/uL (4.4-10.8)
[2022-06-14 06:52] LABS: BUN 27 mg/dL (7-18); CREATININE 0.9 mg/dL (0.70-1.30); Calcium 8.2 mg/dL (8.5-10.1); Chloride 104 mmol/L (98-107); Glucose 155 mg/dL (74-106); Potassium 3.9 mmol/L (3.5-5.1); Sodium 137 mmol/L (136-145)
[2022-06-14 07:27] LABS: ESR 82 mm/hr (0-20)
--- NOTE | 2022-06-14 07:45 | W.PM.PROGNOT ---
Date of Service Date of service: 06/14/22 Time of Service: 07:00 Exam Narrative Exam Narrative: Darwin is seen at bedside in his room. He was resting comfortably in bed. No has no new complaints. O: WBC's are normalizing, his BS 155, He is anemic. ESR 82 The left hallux remains grossly edematous with yellowish pus/discharge noted coming from the ulcer at the distal tip and 2 areas of dark eschar noted dorsally over the hallux. Erythema is noted to the mid-foot, somewhat improved from yesterday. The lesser toes appear viable at this time. The right foot ulcer has a pale slightly granular base with adherent slough and slime noted. No undermining or sinus track noted. (Ed says that this wound has been open for about 6 weeks). No erythema noted. A: Diabetic ulcer with osteomyelitis left hallux Diabetic ulcer right foot Poorly contolled DMwith neuropathy P: Darwin is insistent that he doesn't want surgery and that his toe will get better. I did state clearly (twice) to him that I do not believe that his toe is salvageable, that he has deep infection in the toe, involving the bone, and that surgical intervention to remove the diseased/infected tissue is medically indicated and recommended. Nursing was in the room during this visit. Continue with the current course of antibiotics pending culture results. He will likely need a protracted course of antibiotics. I will order an xray of the right foot to access for osteomyelitis of the 1st ray. I reviewed the case with Dr. Perdue. Objective Last Vital Signs Temp 37.0 C 06/13/22 20:47 Pulse 86 06/13/22 20:47 Resp 18 06/13/22 20:47 BP 152/82 H 06/13/22 20:47 Pulse Ox 95 06/13/22 20:47 Laboratory Results - last 24 hr 06/13/22 06/13/22 06/13/22 10:42 10:42 10:42 WBC 11.50 H RBC 3.90 L Hgb 11.4 L Hct 34.9 L MCV 90 MCH 29.2 MCHC 32.7 RDW 12.4 Plt Count 310 MPV 10.4 Immature Gran % 0.5 Neutrophils % 77.6 Lymphocytes % 9.7 Monocytes % 9.8 Eosinophils % 1.7 Basophils % 0.7 Nucleated RBC % 0.0 Absolute Neutrophils 8.92 H Absolute Lymphocytes 1.12 L Absolute Monocytes 1.13 H Absolute Eosinophils 0.20 Absolute Basophils 0.08 ESR VBG Lactate 1.9 H Sodium 129 L Potassium 4.6 Chloride 95 L Carbon Dioxide 27.4 Anion Gap 6.6 BUN 37 H Creatinine 1.3 Estimated GFR/1.73 m2 54.57 Glucose 525 H* Hemoglobin A1c Calcium 8.5 Total Bilirubin 0.7 AST 21 ALT 24 Alkaline Phosphatase 140 H C-Reactive Protein Total Protein 8.1 Albumin 2.4 L TSH COVID-19 Source SARS-CoV-2 (PCR) 06/13/22 06/13/22 06/13/22 10:42 10:42 10:42 WBC RBC Hgb Hct MCV MCH MCHC RDW Plt Count MPV Immature Gran % Neutrophils % Lymphocytes % Monocytes % Eosinophils % Basophils % Nucleated RBC % Absolute Neutrophils Absolute Lymphocytes Absolute Monocytes Absolute Eosinophils Absolute Basophils ESR VBG Lactate Sodium Potassium Chloride Carbon Dioxide Anion Gap BUN Creatinine Estimated GFR/1.73 m2 Glucose Hemoglobin A1c 11.1 H Calcium Total Bilirubin AST ALT Alkaline Phosphatase C-Reactive Protein 23.63 H Total Protein Albumin TSH 2.36 COVID-19 Source SARS-CoV-2 (PCR) 06/13/22 06/13/22 06/13/22 10:48 14:08 17:00 WBC RBC Hgb Hct MCV MCH MCHC RDW Plt Count MPV Immature Gran % Neutrophils % Lymphocytes % Monocytes % Eosinophils % Basophils % Nucleated RBC % Absolute Neutrophils Absolute Lymphocytes Absolute Monocytes Absolute Eosinophils Absolute Basophils ESR VBG Lactate Sodium Potassium Chloride Carbon Dioxide Anion Gap BUN Creatinine Estimated GFR/1.73 m2 Glucose 397 H Hemoglobin A1c Calcium Total Bilirubin AST ALT Alkaline Phosphatase C-Reactive Protein Total Protein Albumin TSH COVID-19 Source Nasal/Nares Cancelled SARS-CoV-2 (PCR) Negative Cancelled 06/14/22 06/14/22 06/14/22 06:04 06:04 06:04 WBC 9.14 RBC 3.62 L Hgb 10.6 L Hct 32.5 L MCV 90 MCH 29.3 MCHC 32.6 RDW 12.4 Plt Count 272 MPV 10.5 Immature Gran % 0.3 Neutrophils % 60.6 Lymphocytes % 20.7 Monocytes % 11.4 Eosinophils % 6.2 Basophils % 0.8 Nucleated RBC % 0.0 Absolute Neutrophils 5.54 Absolute Lymphocytes 1.89 Absolute Monocytes 1.04 H Absolute Eosinophils 0.57 Absolute Basophils 0.07 ESR 82 H VBG Lactate Sodium 137 Potassium 3.9 Chloride 104 Carbon Dioxide 28.0 Anion Gap 5.0 BUN 27 H Creatinine 0.9 Estimated GFR/1.73 m2 >= 60.00 Glucose 155 H Hemoglobin A1c Calcium 8.2 L Total Bilirubin AST ALT Alkaline Phosphatase C-Reactive Protein Total Protein Albumin TSH COVID-19 Source SARS-CoV-2 (PCR)
[2022-06-14] MEDS: Enoxaparin 40 MG/0.4 ML SYR SC (08:00)
[2022-06-14] MEDS: Insulin Aspart 300 UNITS/3 ML PEN SC ×4 (08:01→21:41)
[2022-06-14] MEDS: amLODIPine 5 MG TAB PO ×2 (08:01→19:50)
[2022-06-14] MEDS: Gabapentin 400 MG CAP 800 MG PO ×4 (08:01→19:51)
[2022-06-14] MEDS: Carvedilol 12.5 MG TAB PO ×2 (08:01→19:51)
[2022-06-14] MEDS: Ascorbic Acid 500 MG TAB 1000 MG PO (08:01)
[2022-06-14] MEDS: Insulin Glargine 300 UNITS/3 ML PEN 20 UNITS SC (08:01)
[2022-06-14 08:37] VITALS: BP 117/61; PULSE 83; RESP 16; TEMP 37.2; O2SAT 94
[2022-06-14] MEDS: Silver sulfaDIAZINE 1% 25 GM TUBE TP ×2 (08:51→21:43)
[2022-06-14] MEDS: Collagenase 30 GM TUBE TP (10:00)
--- NOTE | 2022-06-14 10:03 | DI.RAD_ITS ---
Exam(s) XR FOOT RT COMPLETE EXAM: XR FOOT RT COMPLETE CLINICAL HISTORY: ulcer right foot, eval for osteo. TECHNIQUE: 2D digital imaging was performed. COMPARISON: CR,XR XR FOOT RT COMPLETE from 08/29/2021 FINDINGS: 3 views Since 08/29/2021 there has been additional transmetatarsal amputations of the 3rd, 4th, and 5th toes. There is a deep skin ulcer over the medial stump, mostly over the 1st-great toe remnant metatarsal. However, the appearance of the subjacent osseous stump does not exhibit obvious osteomyelitis. IMPRESSION: Deep soft tissue ulcer. However, no obvious radiographic evidence of osteomyelitis. If clinically indicated further study with MRI can be performed for added sensitivity and specificity . DATA REPOSITORY: RADIATION DOSE DELIVERED:
--- NOTE | 2022-06-14 11:06 | PGE_ITS ---
Date of Service Date of service: 06/14/22 Time of Service: 11:06 Assessment and Plan Assessment and plan (1) Osteomyelitis due to type 2 diabetes mellitus: Status: Acute Assessment and plan: seen by Dr salcedo in ED and debrided, recommendations for amputation. wound cultures pending continue vancomycin and cefepime day 2 elevate above level of heart as much as possible follow inflammatory markers. patient declines amputation, discussed the amount of bony destruction, reviewed xray report with him and podiatry recommendations. discussed risk of developing gangrene and sepsis and that antibiotics are unlikely curative. patient verbalizes understanding what I am saying but he does not believe that this is accurate information. He believes that DR Salcedo is recommendations are based on financial benefits to surgeon and institution. he discusses how it was previously recommended to amputate right great toe and that he didn't need to have it amputated for some time after so the original recommendation was bad advise and he will not listen to the recommendations at this time either. (2) 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: Status: Chronic Assessment and plan: blood sugars elevated on admission diabetic diet blood sugar checks with coverage ac/hs continue home lantus check hemoglobin A1C diabetes management consultation (3) Hypertension: Status: Chronic Assessment and plan: continue to monitor and adjust home medication as needed Qualifiers: Hypertension type: primary hypertension Qualified Code(s): I10 - Essential (primary) hypertension (4) Substance abuse in remission: Status: Acute Assessment and plan: continue home methadone dosing (5) Hypothyroidism: Status: Chronic Assessment and plan: check TSH continue synthroid (6) DVT prophylaxis: Status: Acute Assessment and plan: enoxaparin (7) Discharge planning issues: Status: Acute Assessment and plan: case management following anticipate discharge to home when medically stable discussed with DR Perdue Subjective Subjective Patient reports: no new complaints, tolerating liquids well, tolerating a regular diet and afebrile Exam Const General: cooperative, frail appearing and ill appearing chronically Nutritional Appearance: average body habitus Orientation: alert, awake and oriented x3 HENMT Head: normal to inspection, normocephalic and atraumatic Mouth: oral mucosae normal Neck Neck: normal visual inspection Chest Chest: normal inspection of the chest Resp Effort & Inspection: normal respiratory effort Cardio Rate: regular rate Rhythm: regular rhythm GI Inspection: normal to inspection Palpation: soft Auscultation: normal bowel sounds Skin Lesions: lesion noted (right forefoot with ulcer with dry wound bed, left great toe not visualized) and other (dressing to left great toe intact, redness extending up leg just above ankl) Neuro General: patient alert, patient awake and patient oriented x3 Extrem Right lower extremity: foot Details: other (amputation of all toes, wound to amputation site, see nursing doc for description) Objective Last Vital Signs Temp 37.2 C 06/14/22 08:37 Pulse 83 06/14/22 08:37 Resp 16 06/14/22 08:37 BP 117/61 06/14/22 08:37 Pulse Ox 94 06/14/22 08:37 Laboratory Results - last 24 hr 06/13/22 06/13/22 06/13/22 10:42 10:42 10:42 WBC RBC Hgb Hct MCV MCH MCHC RDW Plt Count MPV Immature Gran % Neutrophils % Lymphocytes % Monocytes % Eosinophils % Basophils % Nucleated RBC % Absolute Neutrophils Absolute Lymphocytes Absolute Monocytes Absolute Eosinophils Absolute Basophils ESR Sodium 129 L Potassium 4.6 Chloride 95 L Carbon Dioxide 27.4 Anion Gap 6.6 BUN 37 H Creatinine 1.3 Estimated GFR/1.73 m2 54.57 Glucose 525 H* Hemoglobin A1c 11.1 H Calcium 8.5 Total Bilirubin 0.7 AST 21 ALT 24 Alkaline Phosphatase 140 H C-Reactive Protein 23.63 H Total Protein 8.1 Albumin 2.4 L TSH COVID-19 Source SARS-CoV-2 (PCR) 06/13/22 06/13/22 06/13/22 10:42 10:48 14:08 WBC RBC Hgb Hct MCV MCH MCHC RDW Plt Count MPV Immature Gran % Neutrophils % Lymphocytes % Monocytes % Eosinophils % Basophils % Nucleated RBC % Absolute Neutrophils Absolute Lymphocytes Absolute Monocytes Absolute Eosinophils Absolute Basophils ESR Sodium Potassium Chloride Carbon Dioxide Anion Gap BUN Creatinine Estimated GFR/1.73 m2 Glucose Hemoglobin A1c Calcium Total Bilirubin AST ALT Alkaline Phosphatase C-Reactive Protein Total Protein Albumin TSH 2.36 COVID-19 Source Cancelled SARS-CoV-2 (PCR) Negative Cancelled 06/13/22 06/14/22 06/14/22 17:00 06:04 06:04 WBC RBC Hgb Hct MCV MCH MCHC RDW Plt Count MPV Immature Gran % Neutrophils % Lymphocytes % Monocytes % Eosinophils % Basophils % Nucleated RBC % Absolute Neutrophils Absolute Lymphocytes Absolute Monocytes Absolute Eosinophils Absolute Basophils ESR 82 H Sodium 137 Potassium 3.9 Chloride 104 Carbon Dioxide 28.0 Anion Gap 5.0 BUN 27 H Creatinine 0.9 Estimated GFR/1.73 m2 >= 60.00 Glucose 397 H 155 H Hemoglobin A1c Calcium 8.2 L Total Bilirubin AST ALT Alkaline Phosphatase C-Reactive Protein Total Protein Albumin [facility] COVID-19 Source SARS-CoV-2 (PCR) 06/14/22 06:04 WBC 9.14 RBC 3.62 L Hgb 10.6 L Hct 32.5 L MCV 90 MCH 29.3 MCHC 32.6 RDW 12.4 Plt Count 272 MPV 10.5 Immature Gran % 0.3 Neutrophils % 60.6 Lymphocytes % 20.7 Monocytes % 11.4 Eosinophils % 6.2 Basophils % 0.8 Nucleated RBC % 0.0 Absolute Neutrophils 5.54 Absolute Lymphocytes 1.89 Absolute Monocytes 1.04 H Absolute Eosinophils 0.57 Absolute Basophils 0.07 ESR Sodium Potassium Chloride Carbon Dioxide Anion Gap BUN Creatinine Estimated GFR/1.73 m2 Glucose Hemoglobin A1c Calcium Total Bilirubin AST ALT Alkaline Phosphatase C-Reactive Protein Total Protein Albumin [facility] COVID-19 Source SARS-CoV-2 (PCR)
--- NOTE | 2022-06-14 12:34 | W.INDIABCONS ---
Date of service: 06/14/22 Time of Service: 12:34 Diabetes Inpatient Consult Reason for Visit: dm DESCRIPTION/ASSESSMENT: Ed was admitted with osteo of left great toe. Admit blood sugar 525 mg/dl. A1C: 11.1% Home DM meds: 20 units lantus am, 40 u lantus PM, novolog at meals, 500 mg metformin qd. Lives next to son. Has had osteo in past with toe removal on right foot. Darwin is interested in getting a continuous glucose monitor and insulin pump. He reports having difficulty remembering to take his insulin. He also reports increasing his insulin dose as needed but worries about hypoglycemia. Ed is eligible for a CGM with medicare as takes multiple daily injections and A1C not at target. INTERVENTION: Will follow up with PCP to get referral for OP diabetes self management education Recommend at discharge to change lantus to levemir- once daily dosing of 60 units, continue sliding scale meal time insulin, consider adding Jardiance to aid with glycemic control and increase metformin to 1000 mg BID. PLAN: will follow up in outpatient setting, will call patient after discharge. Time Spent in Nutritional Counseling and Treatment: 30
--- NOTE | 2022-06-14 13:30 | INITIAL_ITS ---
- If Service Date Differs Date of service: 06/14/22 Time of Service: 13:30 Care Management Initial Assess REASON FOR HOSPITALIZATION:: osteomyelitis of toe PAST MEDICAL HISTORY/PAST SURGICAL HISTORY:: All Active Problems (Updated 06/13/22 @ 13:17 by Nolan Cartagena MD). Osteomyelitis of great toe of left foot (Acute). Hyperglycemia (Acute). Hypothyroidism (Chronic). Osteomyelitis due to type 2 diabetes mellitus (Acute). left great toe. Foot infection (Acute). Cellulitis (Acute). Osteomyelitis of toe of right foot (Acute). MRSA bacteremia (Acute). Discharge planning issues (Acute). DVT prophylaxis (Acute). Diabetic infection of right foot (Acute). Cellulitis of foot, right (Acute). Acute kidney injury (Acute). Osteomyelitis of second toe of left foot (Acute). 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 Osteomyelitis of second toe of right foot (Acute). Substance abuse in remission (Acute). Hypertension (Chronic). Diabetes (Chronic). Medical History (Updated 06/13/22 @ 13:17 by Nolan Cartagena MD). Anxiety. History of amputation of great toe. Toe osteomyelitis, right. Right great toe. Surgical History . History of appendectomy. History of inguinal hernia repair. Status post amputation of toe. 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 DOS: 01/15/19 PREVIOUS FUNCTIONAL STATUS/SOCIAL/FAMILY SUPPORTS:: Mahi lives in a mobile home on a large piece of property in [place], [place]. He has 2 children. His son Susie lives in a separate dwelling on his property and his daughter Alejandra lives closeby with her and 4 children. He identified that they are generally supportive. mahi uses a cane for ambulatory assistance but also owns a walker. CURRENT FUNCTIONAL STATUS:: Mahi was sitting up in bed when CM met with him. He was pleasant and talkative and agreeable to conversation. Mahi was preoccupied with his visit with Dr. Zhao. He has seen him in the past and requested that he not be involved in his care, yet he saw him again today. It is not clear to whom this was communicated, if anyone. CM informed the clinical coordinator today. ADVANCE DIRECTIVES:: none on file Has patient been provided with info about the portal/API?: Yes Did the patient sign up for the portal?: No CODE STATUS:: Full Code INSURANCE COVERAGE / FINANCIAL ISSUES:: Medicare. Medicaid CURRENT HOME/COMMUNITY SERVICES/EQUIPMENT:: uses a cane PRIMARY CARE PHYSICIAN:: Galen Rivera POTENTIAL DISCHARGE NEEDS:: follow up with PCP and plan of care. may need new home health services for wound care PATIENT/FAMILY EDUCATION NEEDS:: review of discharge instructions, wound care, limitations, follow up plan, activity, medications and discuss Ask me Three TRANSPORTATION:: Mahi will drive himself home. His truck is in the ED parking lot. Security has been informed. PLAN:: Anticipate Mahi will be discharged home, possibly with new home health services for wound care. He will follow up with his community providers and plan of care and will drive himself home. CM will continue to support Mahi's discharge needs.
[2022-06-14 15:34] VITALS: BP 147/71; PULSE 73; RESP 16; TEMP 36.7; O2SAT 97
[2022-06-14] MEDS: VANCOMYCIN/WATER (PEG) 1.75 GM/350 ML BAG IV (15:44)
[2022-06-14] MEDS: Normal Saline Flush 10 ML SYR IVP ×2 (15:45→19:51)
[2022-06-14 19:48] VITALS: BP 156/73; PULSE 75; RESP 16; TEMP 36.7; O2SAT 94
[2022-06-14] MEDS: Insulin Glargine 300 UNITS/3 ML PEN 40 UNITS SC (21:42)
[2022-06-14 22:40] VITALS: BP 149/70; PULSE 79; RESP 16; TEMP 36.8; O2SAT 95
[2022-06-14] MEDS: clonazePAM 1 MG TAB PO (23:00)
[2022-06-15] MEDS: CEFEPIME 2 GM in Normal Saline 100 ML IVPB (03:52)
[2022-06-15] MEDS: Normal Saline Flush 10 ML SYR IVP (03:53)
[2022-06-15] MEDS: VANCOMYCIN/WATER (PEG) 1.75 GM/350 ML BAG IV ×2 (04:37→17:02)
[2022-06-15] MEDS: Normal Saline 500 ML IV (04:38)
[2022-06-15 07:52] VITALS: BP 159/67; PULSE 78; RESP 18; TEMP 36.6; O2SAT 94
[2022-06-15] MEDS: Gabapentin 400 MG CAP 800 MG PO ×4 (08:39→20:31)
[2022-06-15] MEDS: Insulin Glargine 300 UNITS/3 ML PEN 20 UNITS SC (08:39)
[2022-06-15] MEDS: Ascorbic Acid 500 MG TAB 1000 MG PO (08:39)
[2022-06-15] MEDS: Enoxaparin 40 MG/0.4 ML SYR SC (08:39)
[2022-06-15] MEDS: Carvedilol 12.5 MG TAB PO ×2 (08:39→20:32)
[2022-06-15] MEDS: amLODIPine 5 MG TAB PO ×2 (08:39→20:31)
[2022-06-15] MEDS: Methadone Liquid 10 MG/ML 225 MG PO (08:40)
[2022-06-15] MEDS: Insulin Aspart 300 UNITS/3 ML PEN SC ×3 (08:40→20:30)
[2022-06-15] MEDS: Collagenase 30 GM TUBE TP (09:00)
[2022-06-15] MEDS: Silver sulfaDIAZINE 1% 25 GM TUBE TP (12:45)
--- NOTE | 2022-06-15 14:53 | W.PM.PROGNOT ---
Date of Service Date of service: 06/15/22 Time of Service: 14:53 Assessment and Plan Assessment and plan (1) Osteomyelitis due to type 2 diabetes mellitus: Status: Acute Assessment and plan: seen by Dr salcedo in ED and debrided, recommendations for amputation. wound cultures growing MRSA continue vancomycin day 3 pharmacy dosing, stopped cefepime, sensitivities still pending elevate above level of heart as much as possible follow inflammatory markers. once again discussed podiatry recommendations for amputation. patient continues to decline amputation, reviewed the amount of bony destruction, xray report with him and podiatry recommendations. discussed risk of developing gangrene and sepsis and that antibiotics are unlikely curative. patient verbalizes understanding what I am saying but he does not believe that this is accurate information. He believes that DR Salcedo is recommendations are based on financial benefits to surgeon and institution. he discusses how it was previously recommendations were bad in the past, and that he would be left with a stump and eye patch if Dr Salcedo had his way. (2) 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: Status: Chronic Assessment and plan: blood sugars continue to remain elevated at 300 continue diabetic diet blood sugar checks with coverage ac/hs continue home lantus at increased dosing of 40 at hs and 30 in am 11.1 hemoglobin A1C diabetes management consultation (3) Hypertension: Status: Chronic Assessment and plan: continue to monitor and adjust home medication as needed Qualifiers: Hypertension type: primary hypertension Qualified Code(s): I10 - Essential (primary) hypertension (4) Substance abuse in remission: Status: Acute Assessment and plan: continue home methadone dosing (5) Hypothyroidism: Status: Chronic Assessment and plan: check TSH continue synthroid (6) DVT prophylaxis: Status: Acute Assessment and plan: enoxaparin (7) Discharge planning issues: Status: Acute Assessment and plan: case management following anticipate discharge to home when medically stable discussed with DR Perdue Subjective Subjective Patient reports: no new complaints, tolerating liquids well, tolerating a regular diet, voiding w/o difficulty and afebrile Exam Const General: cooperative, frail appearing and ill appearing chronically Nutritional Appearance: average body habitus Orientation: alert, awake and oriented x3 HENMT Head: normal to inspection, normocephalic and atraumatic Mouth: oral mucosae normal Neck Neck: normal visual inspection Chest Chest: normal inspection of the chest Resp Effort & Inspection: normal respiratory effort Cardio Rate: regular rate Rhythm: regular rhythm GI Inspection: normal to inspection Palpation: soft Auscultation: normal bowel sounds Skin Lesions: lesion noted (right forefoot with ulcer with dry wound bed, left great toe not visualized) and other (dressing to left great toe intact, redness extending up leg just above ankl) Neuro General: patient alert, patient awake and patient oriented x3 Extrem Right lower extremity: foot Details: other (amputation of all toes, wound to amputation site, see nursing doc for description) Objective Last Vital Signs Temp 36.6 C 06/15/22 07:52 Pulse 78 06/15/22 07:52 Resp 18 06/15/22 07:52 BP 159/67 H 06/15/22 07:52 Pulse Ox 94 06/15/22 07:52
--- NOTE | 2022-06-15 15:02 | CMPROGNOTE_ITS ---
- If Service Date Differs Date of service: 06/15/22 Time of Service: 15:03 Care Management Progress Note S/O: Robert remains inpatient at this time, per MD awaiting culture studies to determine ABX course. No change to overall plan, CM continues to follow. A: 72 year old male admitted to [facility] 06/13/22 for Osteomyelitis, Cellulitis P: Robert will be discharged home, possibly with new home health services for wound care. He will follow up with his community providers and plan of care and will drive himself home. CM will continue to support Robert's discharge needs.
[2022-06-15 15:27] VITALS: BP 152/73; PULSE 74; RESP 16; TEMP 36.6; O2SAT 94
[2022-06-15 16:50] LABS: Vancomycin, Trough 20.9 ug/mL (10.0-20.0)
[2022-06-15] MEDS: Insulin Glargine 300 UNITS/3 ML PEN 50 UNITS SC (20:30)
[2022-06-16 00:20] VITALS: BP 144/68; PULSE 70; RESP 16; TEMP 36.6; O2SAT 95
[2022-06-16] MEDS: VANCOMYCIN/WATER (PEG) 1.5 GM/300 ML BAG IVPB ×2 (06:35→17:42)
[2022-06-16 06:53] LABS: ESR 93 mm/hr (0-20)
[2022-06-16 06:56] LABS: Abs Immature Grans 0.03 10^3/uL (0.0-0.06); Absolute Basophil Count 0.06 10^3/uL (0.0-0.2); Absolute Lymphocyte Count 1.05 10^3/uL (1.2-3.4); Absolute Monocyte Count 0.73 10^3/uL (0.1-0.8); Absolute Neutrophil Count 4.15 10^3/uL (1.2-6.7); Basophils % 0.9; Eosinophils % 4.7; HCT 34.3 % (40.0-50.0); HGB 11.1 g/dL (13.5-17.5); Immature Grans % 0.5; Lymphocytes % 16.6; MCH 28.6 pg (27.0-33.0); MCHC 32.4 % (32.0-36.0); MCV 88 fL (80-95); MPV 10.3 fL (8.0-11.0); Monocytes % 11.6; Neutrophils % 65.7; Platelet Count 306 10^3/uL (130-400); RBC 3.88 10^6/uL (4.36-5.78); RDW-SD 38.8 fL; WBC 6.32 10^3/uL (4.4-10.8)
[2022-06-16 07:17] LABS: ALT 40 U/L (16-63); AST 43 U/L (15-37); Albumin 1.9 g/dL (3.4-5.0); Alkaline Phosphatase 139 U/L (46-116); Anion Gap 3.5 mmol/L (3-11); BUN 23 mg/dL (7-18); Bilirubin, Total 0.2 mg/dL (0.2-1.0); C-Reactive Protein 6.32 mg/dL (0.0-0.3); CO2 28.5 mmol/L (21.0-32.0); CREATININE 0.8 mg/dL (0.70-1.30); Calcium 8.3 mg/dL (8.5-10.1); Chloride 103 mmol/L (98-107); Glucose 320 mg/dL (74-106); Potassium 4.4 mmol/L (3.5-5.1); Sodium 135 mmol/L (136-145)
[2022-06-16 07:35] VITALS: BP 165/69; PULSE 79; RESP 17; TEMP 36.8; O2SAT 96
[2022-06-16] MEDS: amLODIPine 5 MG TAB PO ×2 (08:34→21:31)
[2022-06-16] MEDS: Ascorbic Acid 500 MG TAB 1000 MG PO (08:34)
[2022-06-16] MEDS: Gabapentin 400 MG CAP 800 MG PO ×4 (08:34→21:31)
[2022-06-16] MEDS: Carvedilol 12.5 MG TAB PO ×2 (08:34→21:31)
[2022-06-16] MEDS: Insulin Glargine 300 UNITS/3 ML PEN 30 UNITS SC (08:35)
[2022-06-16] MEDS: Enoxaparin 40 MG/0.4 ML SYR SC (08:35)
[2022-06-16] MEDS: Insulin Aspart 300 UNITS/3 ML PEN SC ×4 (08:36→21:32)
[2022-06-16] MEDS: Collagenase 30 GM TUBE TP (08:36)
[2022-06-16] MEDS: Methadone Liquid 10 MG/ML 225 MG PO (08:37)
[2022-06-16] MEDS: Silver sulfaDIAZINE 1% 25 GM TUBE TP (10:59)
--- NOTE | 2022-06-16 12:08 | W.PM.PROGNOT ---
Date of Service Date of service: 06/16/22 Time of Service: 12:08 Assessment and Plan Assessment and plan (1) Osteomyelitis due to type 2 diabetes mellitus: Status: Acute Assessment and plan: seen by Dr Zhao with recommendations for amputation, patient declines after multiple days of discussion of risk and benefits of treatment options. wound cultures growing MRSA continue vancomycin day 4 pharmacy dosing for today, then will change to daptomycin tomorrow for once a day dosing for outpatient/home infusion. elevate above level of heart as much as possible follow inflammatory markers. (2) 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: Status: Chronic Assessment and plan: blood sugars continue to remain elevated at 300 continue diabetic diet blood sugar checks with coverage ac/hs continue home lantus at increased dosing of 40 at hs and 30 in am 11.1 hemoglobin A1C diabetes management consultation, awaiting a continuous glucose monitoring system. (3) Hypertension: Status: Chronic Assessment and plan: continue to monitor and adjust home medication as needed Qualifiers: Hypertension type: primary hypertension Qualified Code(s): I10 - Essential (primary) hypertension (4) Substance abuse in remission: Status: Acute Assessment and plan: continue home methadone dosing (5) Hypothyroidism: Status: Chronic Assessment and plan: check TSH continue synthroid (6) DVT prophylaxis: Status: Acute Assessment and plan: enoxaparin (7) Discharge planning issues: Status: Acute Assessment and plan: case management following anticipate discharge to home when medically stable discussed with DR Perdue Subjective Subjective Patient reports: no new complaints, feels better, tolerating liquids well, tolerating a regular diet, voiding w/o difficulty and afebrile Exam Const General: cooperative, frail appearing and ill appearing chronically Nutritional Appearance: average body habitus Orientation: alert, awake and oriented x3 HENMT Head: normal to inspection, normocephalic and atraumatic Mouth: oral mucosae normal Neck Neck: normal visual inspection Chest Chest: normal inspection of the chest Resp Effort & Inspection: normal respiratory effort Cardio Rate: regular rate Rhythm: regular rhythm GI Inspection: normal to inspection Palpation: soft Auscultation: normal bowel sounds Neuro General: patient alert, patient awake and patient oriented x3 Extrem Right lower extremity: foot Details: other (amputation of all toes, wound to amputation site, see nursing doc for description) Objective Last Vital Signs Temp 36.8 C 06/16/22 07:35 Pulse 79 06/16/22 07:35 Resp 17 06/16/22 07:35 BP 165/69 H 06/16/22 07:35 Pulse Ox 96 06/16/22 07:35 Laboratory Results - last 24 hr 06/15/22 06/16/22 06/16/22 15:25 05:55 05:55 WBC RBC Hgb Hct MCV MCH MCHC RDW Plt Count MPV Immature Gran % Neutrophils % Lymphocytes % Monocytes % Eosinophils % Basophils % Nucleated RBC % Absolute Neutrophils Absolute Lymphocytes Absolute Monocytes Absolute Eosinophils Absolute Basophils ESR 93 H Sodium 135 L Potassium 4.4 Chloride 103 Carbon Dioxide 28.5 Anion Gap 3.5 BUN 23 H Creatinine 0.8 Estimated GFR/1.73 m2 >= 60.00 Glucose 320 H Calcium 8.3 L Total Bilirubin 0.2 AST 43 H ALT 40 Alkaline Phosphatase 139 H C-Reactive Protein 6.32 H Total Protein 7.0 Albumin 1.9 L Vancomycin Trough 20.9 H* 06/16/22 05:55 WBC 6.32 RBC 3.88 L Hgb 11.1 L Hct 34.3 L MCV 88 MCH 28.6 MCHC 32.4 RDW 12.0 Plt Count 306 MPV 10.3 Immature Gran % 0.5 Neutrophils % 65.7 Lymphocytes % 16.6 Monocytes % 11.6 Eosinophils % 4.7 Basophils % 0.9 Nucleated RBC % 0.0 Absolute Neutrophils 4.15 Absolute Lymphocytes 1.05 L Absolute Monocytes 0.73 Absolute Eosinophils 0.30 Absolute Basophils 0.06 ESR Sodium Potassium Chloride Carbon Dioxide Anion Gap BUN Creatinine Estimated GFR/1.73 m2 Glucose Calcium Total Bilirubin AST ALT Alkaline Phosphatase C-Reactive Protein Total Protein Albumin Vancomycin Trough
[2022-06-16 15:37] VITALS: BP 150/73; PULSE 74; RESP 18; TEMP 36.8; O2SAT 94
[2022-06-16] MEDS: Normal Saline 500 ML 30 ML IV (17:43)
[2022-06-16 21:27] VITALS: BP 147/71; PULSE 78; RESP 16; TEMP 36.4; O2SAT 97
[2022-06-16] MEDS: Normal Saline Flush 10 ML SYR IVP (21:31)
[2022-06-16] MEDS: clonazePAM 1 MG TAB PO (21:31)
[2022-06-16] MEDS: Insulin Glargine 300 UNITS/3 ML PEN 50 UNITS SC (21:32)
--- NOTE | 2022-06-17 00:10 | NUR.NOTE ---
Nursing Note: Pt refused wound care tonight, Wound care done by day shift nurse was great.
[2022-06-17 03:32] VITALS: BP 148/73; PULSE 70; RESP 15; TEMP 36.1; O2SAT 96
[2022-06-17 06:53] LABS: Platelet Count 332 10^3/uL (130-400)
[2022-06-17 08:12] VITALS: BP 143/74; PULSE 73; RESP 16; TEMP 36.6; O2SAT 95
[2022-06-17] MEDS: Methadone Liquid 10 MG/ML 225 MG PO (08:42)
[2022-06-17] MEDS: Insulin Glargine 300 UNITS/3 ML PEN 30 UNITS SC (08:43)
[2022-06-17] MEDS: Carvedilol 12.5 MG TAB PO ×2 (08:44→20:24)
[2022-06-17] MEDS: Enoxaparin 40 MG/0.4 ML SYR SC (08:44)
[2022-06-17] MEDS: amLODIPine 5 MG TAB PO ×2 (08:44→20:25)
[2022-06-17] MEDS: Insulin Aspart 300 UNITS/3 ML PEN SC ×3 (08:44→20:26)
[2022-06-17] MEDS: Ascorbic Acid 500 MG TAB 1000 MG PO (08:44)
[2022-06-17] MEDS: Gabapentin 400 MG CAP 800 MG PO ×4 (08:44→20:24)
[2022-06-17] MEDS: Collagenase 30 GM TUBE TP (08:45)
[2022-06-17] MEDS: Silver sulfaDIAZINE 1% 25 GM TUBE TP (08:45)
--- NOTE | 2022-06-17 13:54 | CMPROGNOTE_ITS ---
- If Service Date Differs Date of service: 06/17/22 Time of Service: 13:54 Care Management Progress Note At MD request, RONDA prepared referral and provided [facility] orders to [facility] for completion. CM then faxed completed packet to [facility] and [facility] for processing and requested PICC line be placed. When PICC line information is available, CM will fax to [facility], as well as [facility] for coordination of home discharge with home health orders for RN, and IV ABX through [facility], as soon as tomorrow, 06/18/22.
--- NOTE | 2022-06-17 15:15 | W.PM.PROGNOT ---
Date of Service Date of service: 06/17/22 Time of Service: 15:15 Assessment and Plan Assessment and plan (1) Osteomyelitis due to type 2 diabetes mellitus: Status: Acute Assessment and plan: seen by Dr Zhao with recommendations for amputation, patient declines after multiple days of discussion of risk and benefits of treatment options. wound cultures growing MRSA Had vancomycin x4days, transitioned to daptomycin today for once a day dosing for outpatient/home infusion. PICC consult placed. Home Abx form completed. Elevate above level of heart as much as possible. follow inflammatory markers, CRP down to 6.32 from 23.63. Afebrile. 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 continue diabetic diet blood sugar checks with coverage ac/hs continue home lantus, dose increased to 50 at hs last night and 30 in am 11.1 hemoglobin A1C diabetes management consultation, awaiting a continuous glucose monitoring system. (3) Hypertension: Status: Chronic Assessment and plan: Stable. Continue to monitor and adjust home medication as needed Qualifiers: Hypertension type: primary hypertension Qualified Code(s): I10 - Essential (primary) hypertension (4) Substance abuse in remission: Status: Acute Assessment and plan: continue home methadone dosing (5) Hypothyroidism: Status: Chronic Assessment and plan: Continue synthroid. (6) DVT prophylaxis: Status: Acute Assessment and plan: Continue enoxaparin. (7) Discharge planning issues: Status: Acute Assessment and plan: case management following anticipate discharge to home when medically stable with home Abx. discussed with DR Perdue Subjective Subjective Interval history since last seen: Feeling better, feels like he turned the corner yesterday. Afebrile. He is eating and drinking and tolerating his diet. Nursing was changing his dressing at the time of the visit. He reports mild discomfort but has Hx of opioid abuse, on methadone and does not want to take opioids. He is getting around, states he walks on his heels. Denies SOB, coughing, wheezing, CP/pressure. Hoping to get discharged home in the next couple of days with home Abx. Exam Narrative Exam Narrative: General: pleasant, laying in bed with HOB elevated, reading. He is alert and oriented, answers questions appropriately. HEENT: normocephalic, atraumatic, EOMI, MMM. Neck: supple, no JVD. Cardiovascular: heart sounds regular, nontachycardic. Respiratory: respirations appear even and unlabored, lung sounds are clear throughout. GI: +BS, abd soft, nondistended, nontender on palpation. Exremities: Moves all 4 extremities freely, L gr toe with extensive wound with eschar, erythema surrounding and extending onto foot, + Pedal pulse. R foot with dressing intact. Objective Last Vital Signs Temp 36.6 C 06/17/22 08:12 Pulse 73 06/17/22 08:12 Resp 16 06/17/22 08:12 BP 143/74 H 06/17/22 08:12 Pulse Ox 95 06/17/22 08:12 Laboratory Results - last 24 hr 06/17/22 06:28 Plt Count 332
[2022-06-17 15:40] VITALS: BP 147/76; PULSE 70; RESP 17; TEMP 36.6; O2SAT 96
--- NOTE | 2022-06-17 19:29 | NUR.NOTE ---
Nursing Note: noted order for picc line for pending dc home with home abx
[2022-06-17] MEDS: clonazePAM 1 MG TAB PO (20:24)
[2022-06-17] MEDS: Insulin Glargine 300 UNITS/3 ML PEN 50 UNITS SC (20:26)
[2022-06-17 23:05] VITALS: BP 143/72; PULSE 70; RESP 17; TEMP 36.9; O2SAT 97
[2022-06-18 07:00] LABS: Abs Immature Grans 0.03 10^3/uL (0.0-0.06); Absolute Basophil Count 0.05 10^3/uL (0.0-0.2); Absolute Eosinophil Count 0.39 10^3/uL (0.0-0.7); Absolute Lymphocyte Count 1.66 10^3/uL (1.2-3.4); Absolute Monocyte Count 0.69 10^3/uL (0.1-0.8); Absolute Neutrophil Count 2.62 10^3/uL (1.2-6.7); Basophils % 0.9; Eosinophils % 7.2; HCT 35.4 % (40.0-50.0); HGB 11.5 g/dL (13.5-17.5); Immature Grans % 0.6; Lymphocytes % 30.5; MCH 28.9 pg (27.0-33.0); MCHC 32.5 % (32.0-36.0); MCV 89 fL (80-95); MPV 9.9 fL (8.0-11.0); Monocytes % 12.7; Neutrophils % 48.1; Platelet Count 329 10^3/uL (130-400); RBC 3.98 10^6/uL (4.36-5.78); RDW 12.4 % (11.8-14.1); RDW-SD 40.5 fL; WBC 5.44 10^3/uL (4.4-10.8)
[2022-06-18 07:03] LABS: ESR 94 mm/hr (0-20)
[2022-06-18 07:17] LABS: ALT 43 U/L (16-63); AST 40 U/L (15-37); Albumin 2.1 g/dL (3.4-5.0); Alkaline Phosphatase 136 U/L (46-116); Anion Gap 3.8 mmol/L (3-11); BUN 23 mg/dL (7-18); Bilirubin, Total 0.2 mg/dL (0.2-1.0); C-Reactive Protein 2.47 mg/dL (0.0-0.3); CO2 30.2 mmol/L (21.0-32.0); Calcium 8.5 mg/dL (8.5-10.1); Chloride 103 mmol/L (98-107); Glucose 298 mg/dL (74-106); Potassium 4.2 mmol/L (3.5-5.1); Sodium 137 mmol/L (136-145); Total Protein 7.4 g/dL (6.4-8.2)
[2022-06-18 07:42] VITALS: BP 158/82; PULSE 82; RESP 18; TEMP 36.5; O2SAT 97
[2022-06-18] MEDS: Insulin Glargine 300 UNITS/3 ML PEN 30 UNITS SC (08:05)
[2022-06-18] MEDS: Enoxaparin 40 MG/0.4 ML SYR SC (08:05)
[2022-06-18] MEDS: Insulin Aspart 300 UNITS/3 ML PEN SC ×3 (08:06→20:57)
[2022-06-18] MEDS: Silver sulfaDIAZINE 1% 25 GM TUBE TP (08:06)
[2022-06-18] MEDS: amLODIPine 5 MG TAB PO ×2 (08:07→20:56)
[2022-06-18] MEDS: Gabapentin 400 MG CAP 800 MG PO ×4 (08:07→20:56)
[2022-06-18] MEDS: Collagenase 30 GM TUBE TP (08:07)
[2022-06-18] MEDS: Carvedilol 12.5 MG TAB PO ×2 (08:07→20:56)
[2022-06-18] MEDS: Ascorbic Acid 500 MG TAB 1000 MG PO (08:07)
[2022-06-18] MEDS: Methadone Liquid 10 MG/ML 225 MG PO (08:08)
[2022-06-18] MEDS: Normal Saline 500 ML 30 ML IV (09:53)
--- NOTE | 2022-06-18 14:57 | W.PM.PROGNOT ---
Date of Service Date of service: 06/18/22 Time of Service: 14:57 Assessment and Plan Assessment and plan (1) Osteomyelitis due to type 2 diabetes mellitus: Status: Acute Assessment and plan: seen by Dr Zhao with recommendations for amputation, patient declines after multiple days of discussion of risk and benefits of treatment options. wound cultures growing MRSA Had vancomycin x4days, transitioned to daptomycin today for once a day dosing for outpatient/home infusion. PICC consult placed. Home Abx form completed. Elevate above level of heart as much as possible. follow inflammatory markers, CRP down to 6.32 from 23.63. Afebrile. 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 continue diabetic diet blood sugar checks with coverage ac/hs continue home lantus, dose increased to 50 at hs last night and 30 in am 11.1 hemoglobin A1C diabetes management consultation, awaiting a continuous glucose monitoring system. (3) Hypertension: Status: Chronic Assessment and plan: Stable. Continue to monitor and adjust home medication as needed Qualifiers: Hypertension type: primary hypertension Qualified Code(s): I10 - Essential (primary) hypertension (4) Substance abuse in remission: Status: Acute Assessment and plan: continue home methadone dosing (5) Hypothyroidism: Status: Chronic Assessment and plan: Continue synthroid. (6) DVT prophylaxis: Status: Acute Assessment and plan: Continue enoxaparin. (7) Discharge planning issues: Status: Acute Assessment and plan: case management following anticipate discharge to home when home Abx set up. discussed with DR Duff Subjective Subjective Patient reports: no new complaints, feels better, tolerating liquids well, tolerating a regular diet and afebrile Exam Const General: cooperative, frail appearing and ill appearing chronically Nutritional Appearance: average body habitus Orientation: alert, awake and oriented x3 HENMT Head: normal to inspection, normocephalic and atraumatic Mouth: oral mucosae normal Neck Neck: normal visual inspection Chest Chest: normal inspection of the chest Resp Effort & Inspection: normal respiratory effort Cardio Rate: regular rate Rhythm: regular rhythm GI Inspection: normal to inspection Palpation: soft Auscultation: normal bowel sounds Neuro General: patient alert, patient awake and patient oriented x3 Extrem Right lower extremity: foot Details: other (amputation of all toes, wound to amputation site, see nursing doc for description) Objective Last Vital Signs Temp 36.5 C 06/18/22 07:42 Pulse 82 06/18/22 07:42 Resp 18 06/18/22 07:42 BP 158/82 H 06/18/22 07:42 Pulse Ox 97 06/18/22 07:42 Laboratory Results - last 24 hr 06/18/22 06/18/22 06/18/22 06:20 06:20 06:20 WBC 5.44 RBC 3.98 L Hgb 11.5 L Hct 35.4 L MCV 89 MCH 28.9 MCHC 32.5 RDW 12.4 Plt Count 329 MPV 9.9 Immature Gran % 0.6 Neutrophils % 48.1 Lymphocytes % 30.5 Monocytes % 12.7 Eosinophils % 7.2 Basophils % 0.9 Nucleated RBC % 0.0 Absolute Neutrophils 2.62 Absolute Lymphocytes 1.66 Absolute Monocytes 0.69 Absolute Eosinophils 0.39 Absolute Basophils 0.05 ESR 94 H Sodium 137 Potassium 4.2 Chloride 103 Carbon Dioxide 30.2 Anion Gap 3.8 BUN 23 H Creatinine 1.0 Estimated GFR/1.73 m2 >= 60.00 Glucose 298 H Calcium 8.5 Total Bilirubin 0.2 AST 40 H ALT 43 Alkaline Phosphatase 136 H C-Reactive Protein 2.47 H Total Protein 7.4 Albumin 2.1 L
[2022-06-18 15:02] VITALS: BP 150/73; PULSE 74; RESP 18; TEMP 36.7; O2SAT 94
--- NOTE | 2022-06-18 16:40 | CMPROGNOTE_ITS ---
- If Service Date Differs Date of service: 06/18/22 Time of Service: 16:40 Care Management Progress Note S/O: Edward will remain at [facility] awaiting coordination of home IV ABX. Home Health is unable to offer same day admission, so Ed will discharge after his dose tomorrow and his first dose at home will begin on 06/20/22 in the morning. CM provided PICC info to [facility] and [facility] and confirmed plan. CM continues to follow. A: 72 year old male admitted to [facility] 06/13/22 for Osteomyelitis, cellulitis P: Edward will discharge home tomorrow with new orders for home health RN, with daily IV ABX Dapto, through [facility]. He will transport via private vehicle with family.
[2022-06-18] MEDS: Normal Saline Flush 10 ML SYR IVP (20:56)
[2022-06-18] MEDS: clonazePAM 1 MG TAB PO (20:56)
[2022-06-18] MEDS: Insulin Glargine 300 UNITS/3 ML PEN 50 UNITS SC (20:57)
[2022-06-18 22:57] VITALS: BP 121/65; PULSE 74; RESP 16; TEMP 36.3; O2SAT 94
[2022-06-19 07:55] VITALS: BP 153/72; PULSE 77; RESP 17; TEMP 36.4; O2SAT 96
[2022-06-19] MEDS: Gabapentin 400 MG CAP 800 MG PO ×2 (08:25→12:16)
[2022-06-19] MEDS: Ascorbic Acid 500 MG TAB 1000 MG PO (08:26)
[2022-06-19] MEDS: amLODIPine 5 MG TAB PO (08:26)
[2022-06-19] MEDS: Carvedilol 12.5 MG TAB PO (08:26)
[2022-06-19] MEDS: Insulin Glargine 300 UNITS/3 ML PEN 30 UNITS SC (08:26)
[2022-06-19] MEDS: Enoxaparin 40 MG/0.4 ML SYR SC (08:27)
[2022-06-19] MEDS: Methadone Liquid 10 MG/ML 225 MG PO (08:27)
[2022-06-19] MEDS: Normal Saline 500 ML 30 ML IV (08:44)
[2022-06-19] MEDS: Normal Saline Flush 10 ML SYR IVP (08:45)
[2022-06-19] MEDS: Collagenase 30 GM TUBE TP (08:45)
[2022-06-19] MEDS: Silver sulfaDIAZINE 1% 25 GM TUBE TP (10:12)
[2022-06-19] MEDS: Insulin Aspart 300 UNITS/3 ML PEN SC (12:15)
--- NOTE | 2022-06-19 13:19 | W.PM.DS.N ---
Date of service: 06/19/22 Time of Service: 13:19 DS: Diagnosis Discharge Diagnosis (1) Osteomyelitis due to type 2 diabetes mellitus: Status: Acute Asessment and Plan: MRSA in wound. will need 6 weeks of IV antibiotics arranged for outpatient infusion of daptomycin. 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 (3) Hypertension: Status: Chronic (4) Substance abuse in remission: Status: Acute (5) Hypothyroidism: Status: Chronic Discharge Plan Disposition Patient Disposition: HOME W/HOME HEALTH SERVICE Condition: Stable Discharge Details Reason For Visit: Osteomyelitis, Cellulitis Admit Date/Time: 06/13/22 12:46 Admit Provider: Flaco Perdue Attending Provider: Flaco Perdue Primary Care Provider: Galen Rivera Hospital Course Hospital Course: This is a 72 year old male with history of MRSA bactermia, diabetic foot infection, poorly controlled diabetes with peripheral neuropathy, history of substance abuse on methadone who presented to the ED for evaluation of worsening left toe redness, now extending up his leg.? His work up in the ED shows osteomyelitis on plain film.? Dr Zhao was consulted and evaluated him in the ED, he debrided the area and obtained cultures which grew MRSA.? His was initially started on vancomycin and cefepime while results were pending, but then changed to daptomycin to facilitate a home discharge. Dr Zhao has recommended amputation of the toe but the patient adamantly declines stating he feels that is only recommended for Dr Seth financial gains and he feesl that antiboitic treatment is all he needs and is willing to accept at this time. Risks and benefits of amputation were discussed on several days while he was hospitalized and patient continues to distrust Dr Seth recommendations. He has remained medically stable and blood cultures have remained negative. He has been afebrile, inflammatory markers improving. He is eating and drinking and requesting discharge to home. He has been arranged to have home infusion and dressing changes through home health services. he will need weekly surveillance labs including CBC, CMP, CRP, ESR. discharge discussed with DR Duff Home Meds and New Rx's Prescriptions: New daptomycin 350 mg Recon Soln 700 mg IVPB DAILY Qty: 35 0RF Continued methadone 10 MG/ML concentrate 225 mg PO DAILY clonazepam 1 MG tablet 1 mg PO DAILY PRN PRN metformin 500 mg tablet extended release 24 hr 500 mg PO DAILY ascorbic acid (vitamin C) [Vitamin C] 1,000 mg tablet 1,000 mg PO DAILY carvedilol 12.5 mg tablet 12.5 mg PO BID Label Comments: TAKE ONE TABLET BY MOUTH TWICE A DAY amlodipine 5 mg tablet 5 mg PO BID Label Comments: Take 1 tablet by mouth twice a day zinc 50 mg tablet 50 mg PO DAILY MediHoney (honey) 80 % gel 1 applic topical DAILY PRNQty: 44 0RF levothyroxine 137 mcg Tablet 137 mcg PO DAILY gabapentin 800 mg Tablet 800 mg PO QID insulin glargine [Lantus Solostar U-100 Insulin] 100 unit/mL (3 mL) Insulin Pen 20 unit SUBCUT QAM insulin glargine [Lantus Solostar U-100 Insulin] 100 unit/mL (3 mL) Insulin Pen 40 unit SUBCUT QPM Discharge Instructions Instructions: Osteomyelitis (DC) Additional Instructions: wash both feet with soap and water, rinse well. Gently Pat dry. Apply Silvadene cream to left great toe and cover with gauze and roll gauze, flex net q12h. right foot wound: D/C wound orders from 06-13-22. Begin:wash with anasept wound cleanser. Pat dry. Apply Santyl to wound base and cover with gauze/kerlix daily weekly blood work and report to pcp: CBC, CMP, ESR, CRP. Stand Alone Forms: Nursing Discharge Form Referrals: Galen Rivera NP [Primary Care Provider] - (please call office to schedule followup appointment) Girma Zhao DPM [[facility] STAFF PHYSICIAN] - (Office with call you for appointment.) Activity:: Activity as Tolerated Equipment/Supplies:: No Equipment Needed Diet:: Carb Counting Discharge Orders Discharge Orders: Discharge Order (Routine); Ordered 06/19/22 Ordered By: Lola Lira Other Ambulatory Orders: Complete Blood Count w/Diff (Routine) Timeframe: 20220625 Location: None Selected Ordered By: Lola Lira Comprehensive Metabolic Panel (Routine) Timeframe: 20220625 Location: None Selected Ordered By: Lola Lira ESR (Routine) Timeframe: 20220625 Location: None Selected Ordered By: Lola Lira C-Reactive Protein (Routine) Timeframe: 20220625 Location: None Selected Ordered By: Lola Lira Discharge Data Discharge Date/Time-TO BE ENTERED AT DEPARTURE: 06/19/22 16:38 DS: Summary Time Spent with Patient providing and/or coordinating discharge services: Greater than 30 minutes Status at Discharge Functional status at discharge: independent ambulation Overall status at discharge: patient is not back to baseline Mental Status: mental status grossly normal Speech and Movement: speech and movement normal Mood: congruent mood Affect: normal affect Exam Const General: cooperative, frail appearing and ill appearing chronically Nutritional Appearance: average body habitus Orientation: alert, awake and oriented x3 HENMT Head: normal to inspection, normocephalic and atraumatic Mouth: oral mucosae normal Neck Neck: normal visual inspection Chest Chest: normal inspection of the chest Resp Effort & Inspection: normal respiratory effort Cardio Rate: regular rate Rhythm: regular rhythm GI Inspection: normal to inspection Palpation: soft Auscultation: normal bowel sounds Neuro General: patient alert, patient awake and patient oriented x3 Extrem Right lower extremity: foot Details: other (amputation of all toes, wound to amputation site, see nursing doc for description) Psych Mental Status: mental status grossly normal Speech and Movement: speech and movement normal Mood: congruent mood Affect: normal affect DS: Data Vitals/I&O Vitals and I&O: Vital Signs Temperature 36.4 C L 06/19/22 07:55 Temperature Source Tympanic 06/19/22 07:55 Pulse 77 06/19/22 07:55 Pulse Rhythm Regular 06/19/22 07:45 Respiratory Rate 17 06/19/22 07:55 Respiratory Effort Non-Labored 06/19/22 07:45 Respiratory Depth Normal 06/19/22 07:45 Respiratory Pattern Normal 06/19/22 07:45 Blood Pressure 153/72 H 06/19/22 07:55 Blood Pressure Mean 94 06/13/22 14:00 Blood Pressure Position Sitting 06/13/22 09:48 Pulse Oximetry 96 06/19/22 07:55 Oxygen Delivery Method Room Air 06/19/22 07:55 Oxygen Flow Rate 0 06/19/22 07:55 Pain Level 3 06/19/22 08:27 Comment 06/19/22 07:55 Intake & Output 06/18/22 06/19/22 06/19/22 23:59 11:59 23:59 Intake Total 240 / 926 50 / 50 Output Total 500 / 1200 750 / 750 Balance -260 / -274 -700 / -700 Intake: IV 50 / 50 Oral 240 / 850 Output: Urine 500 / 1200 750 / 750 Other: Urine Color Light Desiree Yellow Urine Appearance Clear Clear Urine Odor None Voiding Methods Urinal Data Completed and Pending Labs on day of discharge: Preliminary micro results at discharge 06/13/22 12:45 Anaerobic Culture - Preliminary Toe - Left Big Toe 06/13/22 12:45 Wound Culture - Preliminary Toe - Left Big Toe Streptococcus Agalactiae(Gp B) Staph aureus, MRSA Normal Krystin 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) Osteomyelitis of second toe of right foot (Acute) Substance abuse in remission (Acute) Hypertension (Chronic) Diabetes (Chronic) Medical History Anxiety History of amputation of great toe Toe osteomyelitis, right Right great toe Surgical History History of appendectomy History of inguinal hernia repair 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
[2022-06-19 14:50] VITALS: BP 135/75; PULSE 74; RESP 19; TEMP 36.4; O2SAT 94
--- NOTE | 2022-06-19 15:20 | DIABASSESS_ITS ---
Date of service: 06/19/22 Time of Service: 15:20 Diabetes Note Reason for Visit: dm NOTE: Answered questions about glycemia management prior to discharge. Spoke to nurse of PCP and requested script for Shimon 2 continuous glucose monitor. Pt instructed to follow up with expedition supervisor for CGM script. Informed patient. Will call next week and review blood sugar management. Time Spent in Nutritional Counseling and Treatment: 15
--- NOTE | 2022-06-19 16:10 | PDOC.CMDIS ---
- If Service Date Differs Date of service: 06/19/22 Time of Service: 16:10 LACE Index Scoring Tool - Questions: Length of Stay (in days): 4 - 6 Acuity (Admit via E.D.?): Yes Comorbidities: Diabetes w/o Complication E.D. Visits: 3 - Answers: Total Score: 11 Risk of Readmission: High Risk Care Management Discharge Reason for Hospitalization: osteomyelitis of toe Discharge Plan: Ed will return home today after his dose of IV antibiotics. He will drive himself home, as he has his vehicle in the parking lot. He will have new orders for [facility]AR[facility] RN, who will assist him with IV abx therapy at home, which has been coordinated by RONDA through [facility]. CM called [facility] and confirmed the delivery today, and confirmed with HH that they will visit tomorrow. He is happy to be going home. Patient/Family Education Needs: Review discharge instructions and limitations, discussion of self care needs including ask me three. Services Needed at Discharge: Home Health Care Services ([facility] RN), Infusion Therapy ([facility])
--- NOTE | 2022-06-20 10:11 | PDOC.HHF2F ---
Home Health Certification Home Health Certification: 1. Encounter Date and Reason I certify that Darwin Caballero was seen by Lola Lira on 06/20/22 and that I had a [id number] encounter with this patient that meets the physician face to face encounter requirements. 2. Clinical Findings Supporting Skilled Need and Homebound Status I certify that home health services are medically necessary, include either intermittent prison and/or physical/speech therapy, and that this patient is homebound in that absences from the home require considerable and taxing effort and are infrequent or of short duration, or are attributable to the need to receive medical care. [X] (a) Attached documentation from encounter provides clinical findings supporting skilled need and homebound status (including what assistance patient requires to leave the home). The encounter with the patient was in whole, or in part, for the following medical condition, which is the primary reason for home health care: Osteomyelitis, Cellulitis Penitentiary: routine nursing assessment, medication oversight, IV administration of daptomycin daily, routine PICC care and monitoring, bilateral feet wound care Homebound: patient unable to safely leave the hospital unattended due to non-healing wounds on feet. 3. Certification and Authentication I certify that I composed the above information based on my clinical judgement relating to this patient's medical condition and, if applicable, clinical findings communicated to me by the NPP or inpatient physician who performed the Home Health Referral. All further orders will be obtained through _MEKHI COULTER NP__(Community Based Physician - PCP)
== END 2022-06-19 16:38 | disposition home health service (06) | DRG 638 ==
LOC: ER 13:17 → MS 14:37
PROVIDERS: Nurse Practitioner Acute Care; Admitting Provider Internal Medicine; Emergency Provider Student in an Organized Health Care Education/Training Program; PCP Nurse Practitioner Family; Visit Provider Internal Medicine
DX: E11.69 Type 2 diabetes mellitus with other specified complication (principal); E11.52 Type 2 diabetes mellitus with diabetic peripheral angiopathy with gangrene; L03.116 Cellulitis of left lower limb; M86.172 Other acute osteomyelitis, left ankle and foot; I96 Gangrene, not elsewhere classified; F11.20 Opioid dependence, uncomplicated; E11.65 Type 2 diabetes mellitus with hyperglycemia; E11.42 Type 2 diabetes mellitus with diabetic polyneuropathy; E11.628 Type 2 diabetes mellitus with other skin complications; B95.62 Methicillin resistant Staphylococcus aureus infection as the cause of diseases classified elsewhere; E03.9 Hypothyroidism, unspecified; F19.11 Other psychoactive substance abuse, in remission; I10 Essential (primary) hypertension; F41.9 Anxiety disorder, unspecified; F17.290 Nicotine dependence, other tobacco product, uncomplicated; E11.621 Type 2 diabetes mellitus with foot ulcer; L97.524 Non-pressure chronic ulcer of other part of left foot with necrosis of bone; Z89.411 Acquired absence of right great toe; Z79.4 Long term (current) use of insulin
CPT/HCPCS: 36415; 36569; 80048; 80053; 82947; 85652; 87040; 87077; 87635; 96361; 96365; 96366; 96367; 99285; J1650; 73630; 73660; 80202; 83036; 83605; 84443; 85025; 85049; 86140; 87070; 87075; 87186; 87205; 99223; 99232; 99233; 99239

== ENCOUNTER 2022-06-25 16:12 | Outpatient (REF) | payer MEDICARE, MEDICAID, SELFPAY ==
[2022-06-25 15:44] LABS: ALT 42 U/L (16-63); AST 31 U/L (15-37); Albumin 2.8 g/dL (3.4-5.0); Alkaline Phosphatase 138 U/L (46-116); Anion Gap 3.8 mmol/L (3-11); BUN 25 mg/dL (7-18); Bilirubin, Total 0.3 mg/dL (0.2-1.0); C-Reactive Protein 1.53 mg/dL (0.0-0.3); CO2 32.2 mmol/L (21.0-32.0); Chloride 97 mmol/L (98-107); Glucose 142 mg/dL (74-106); Potassium 4.2 mmol/L (3.5-5.1); Sodium 133 mmol/L (136-145)
[2022-06-25 15:46] LABS: Abs Immature Grans 0.02 10^3/uL (0.0-0.06); Absolute Eosinophil Count 0.32 10^3/uL (0.0-0.7); Absolute Lymphocyte Count 1.47 10^3/uL (1.2-3.4); Absolute Monocyte Count 0.79 10^3/uL (0.1-0.8); Absolute Neutrophil Count 5.51 10^3/uL (1.2-6.7); Basophils % 1.2; Eosinophils % 3.9; HCT 38.2 % (40.0-50.0); HGB 12.4 g/dL (13.5-17.5); Immature Grans % 0.2; Lymphocytes % 17.9; MCHC 32.5 % (32.0-36.0); MCV 90 fL (80-95); MPV 10.4 fL (8.0-11.0); Monocytes % 9.6; Neutrophils % 67.2; Platelet Count 329 10^3/uL (130-400); RBC 4.27 10^6/uL (4.36-5.78); RDW 12.8 % (11.8-14.1); RDW-SD 42.1 fL; WBC 8.21 10^3/uL (4.4-10.8)
[2022-06-25 15:59] LABS: ESR 78 mm/hr (0-20)
== END 2022-06-25 16:13 | disposition home or self-care (01) ==
LOC: NCHCN 16:12
PROVIDERS: PCP Nurse Practitioner Family; Visit Provider Nurse Practitioner Family
DX: A49.02 Methicillin resistant Staphylococcus aureus infection, unspecified site (principal); M86.172 Other acute osteomyelitis, left ankle and foot
CPT/HCPCS: 80053; 85652; 85025; 86140

== ENCOUNTER 2022-07-02 17:42 | Outpatient (REF) | payer MEDICARE, MEDICAID, SELFPAY ==
[2022-07-02 18:58] LABS: Abs Immature Grans 0.03 10^3/uL (0.0-0.06); Absolute Basophil Count 0.08 10^3/uL (0.0-0.2); Absolute Eosinophil Count 0.34 10^3/uL (0.0-0.7); Absolute Monocyte Count 0.71 10^3/uL (0.1-0.8); Absolute Neutrophil Count 3.34 10^3/uL (1.2-6.7); Basophils % 1.3; Eosinophils % 5.5; HCT 35.8 % (40.0-50.0); HGB 11.8 g/dL (13.5-17.5); Immature Grans % 0.5; Lymphocytes % 27.4; MCH 29.7 pg (27.0-33.0); MCV 90 fL (80-95); MPV 10.7 fL (8.0-11.0); Monocytes % 11.5; Neutrophils % 53.8; Platelet Count 271 10^3/uL (130-400); RBC 3.97 10^6/uL (4.36-5.78); RDW 13.3 % (11.8-14.1)
[2022-07-02 19:11] LABS: ALT 40 U/L (16-63); Albumin 2.7 g/dL (3.4-5.0); Alkaline Phosphatase 121 U/L (46-116); Anion Gap 8.6 mmol/L (3-11); BUN 24 mg/dL (7-18); Bilirubin, Total 0.2 mg/dL (0.2-1.0); C-Reactive Protein 1.45 mg/dL (0.0-0.3); CO2 28.4 mmol/L (21.0-32.0); Calcium 8.6 mg/dL (8.5-10.1); Chloride 104 mmol/L (98-107); ESR 76 mm/hr (0-20); Glucose 198 mg/dL (74-106); Potassium 4.4 mmol/L (3.5-5.1); Sodium 141 mmol/L (136-145); Total Protein 7.4 g/dL (6.4-8.2)
[2022-07-02 19:30] LABS: AST 40 U/L (15-37)
== END 2022-07-02 17:43 | disposition home or self-care (01) ==
LOC: LBN 17:42
PROVIDERS: PCP Nurse Practitioner Family; Visit Provider Nurse Practitioner Family
DX: M86.172 Other acute osteomyelitis, left ankle and foot (principal); A49.02 Methicillin resistant Staphylococcus aureus infection, unspecified site
CPT/HCPCS: 80053; 85652; 85025; 86140

== ENCOUNTER 2022-07-09 15:34 | Outpatient (REF) | payer MEDICARE, MEDICAID, SELFPAY ==
[2022-07-09 17:15] LABS: ALT 58 U/L (16-63); AST 45 U/L (15-37); Albumin 2.9 g/dL (3.4-5.0); Alkaline Phosphatase 114 U/L (46-116); Anion Gap 5.1 mmol/L (3-11); BUN 25 mg/dL (7-18); Bilirubin, Total 0.3 mg/dL (0.2-1.0); C-Reactive Protein 0.53 mg/dL (0.0-0.3); CO2 31.9 mmol/L (21.0-32.0); CREATININE 1.2 mg/dL (0.70-1.30); Calcium 8.7 mg/dL (8.5-10.1); Chloride 105 mmol/L (98-107); Estimated GFR 59.86 (mL/min/1.73m2); Glucose 114 mg/dL (74-106); Potassium 4.6 mmol/L (3.5-5.1); Sodium 142 mmol/L (136-145); Total Protein 7.7 g/dL (6.4-8.2)
[2022-07-09 17:19] LABS: Abs Immature Grans 0.03 10^3/uL (0.0-0.06); Absolute Basophil Count 0.06 10^3/uL (0.0-0.2); Absolute Eosinophil Count 0.47 10^3/uL (0.0-0.7); Absolute Lymphocyte Count 2.22 10^3/uL (1.2-3.4); Absolute Monocyte Count 0.75 10^3/uL (0.1-0.8); Absolute Neutrophil Count 3.57 10^3/uL (1.2-6.7); Basophils % 0.8; Eosinophils % 6.6; HCT 36.9 % (40.0-50.0); HGB 11.8 g/dL (13.5-17.5); Immature Grans % 0.4; Lymphocytes % 31.3; MCH 28.9 pg (27.0-33.0); MCV 90 fL (80-95); Monocytes % 10.6; Neutrophils % 50.3; Platelet Count 255 10^3/uL (130-400); RBC 4.09 10^6/uL (4.36-5.78); RDW 13.5 % (11.8-14.1); RDW-SD 44.9 fL
[2022-07-09 17:36] LABS: ESR 71 mm/hr (0-20)
== END 2022-07-09 15:35 | disposition home or self-care (01) ==
LOC: NCHCN 15:34
PROVIDERS: PCP Nurse Practitioner Family; Visit Provider Nurse Practitioner Family
DX: M86.172 Other acute osteomyelitis, left ankle and foot (principal); R53.1 Weakness
CPT/HCPCS: 80053; 85652; 85025; 86140

== ENCOUNTER 2022-07-16 16:21 | Outpatient (REF) | payer MEDICARE, MEDICAID, SELFPAY ==
[2022-07-16 17:47] LABS: Abs Immature Grans 0.02 10^3/uL (0.0-0.06); Absolute Basophil Count 0.11 10^3/uL (0.0-0.2); Absolute Eosinophil Count 0.54 10^3/uL (0.0-0.7); Absolute Lymphocyte Count 2.45 10^3/uL (1.2-3.4); Absolute Monocyte Count 0.95 10^3/uL (0.1-0.8); Absolute Neutrophil Count 3.74 10^3/uL (1.2-6.7); Basophils % 1.4; Eosinophils % 6.9; HCT 39.3 % (40.0-50.0); HGB 12.9 g/dL (13.5-17.5); Immature Grans % 0.3; Lymphocytes % 31.4; MCH 29.2 pg (27.0-33.0); MCHC 32.8 % (32.0-36.0); MCV 89 fL (80-95); Monocytes % 12.2; Neutrophils % 47.8; Platelet Count 258 10^3/uL (130-400); RBC 4.42 10^6/uL (4.36-5.78); RDW 13.4 % (11.8-14.1); RDW-SD 43.9 fL; WBC 7.81 10^3/uL (4.4-10.8)
[2022-07-16 17:56] LABS: Anion Gap 6.4 mmol/L (3-11); BUN 24 mg/dL (7-18); C-Reactive Protein 0.54 mg/dL (0.0-0.3); CO2 32.6 mmol/L (21.0-32.0); Calcium 9.1 mg/dL (8.5-10.1); Chloride 105 mmol/L (98-107); Creatine Kinase 45 U/L (39-308); Glucose 66 mg/dL (74-106); Potassium 4.2 mmol/L (3.5-5.1); Sodium 144 mmol/L (136-145)
== END 2022-07-16 16:22 | disposition home or self-care (01) ==
LOC: LBN 16:21
PROVIDERS: PCP Nurse Practitioner Family; Visit Provider Nurse Practitioner
DX: M86.9 Osteomyelitis, unspecified (principal); A49.02 Methicillin resistant Staphylococcus aureus infection, unspecified site
CPT/HCPCS: 80048; 82550; 85025; 86140

== ENCOUNTER → 2022-07-19 15:25 | Outpatient (CLI) | payer MEDICARE, MEDICAID, SELFPAY ==
[2022-07-19] MEDS: Omnipaque 350 MG/ML 100 ML BTL IJ (16:38)
--- NOTE | 2022-07-19 16:40 | DI.CT_ITS ---
Exam(s) CT LOWER EXTREMITY LT W EXAM: CT LOWER EXTREMITY LT W CLINICAL HISTORY: OSTEOMYELITIS LEFT GREAT TOE M86.179 TECHNIQUE: COMPARISON: CT CT LOWER EXTREMITY RT WO from 06/17/2021 FINDINGS: CT examination was performed with intravenous infusion of 100 cc of Omnipaque 350. There is marked f ragmentation and loss of bone density of the distal phalanx of the great toe and of the head of the p roximal phalanx of the great toe as well. There is marked soft tissue enhancement without evidence o f a discrete abscess cavity. No other significant bony destructive or erosive lesion seen in visuali zed portions of the foot. IMPRESSION: CT appearances consistent with osteomyelitis of the head of the proximal phalanx of the great toe and of the entire distal phalanx of the great toe. Please note that MR is more sensitive in detecting osteomyelitis and could show more proximal involve ment which is not appreciated on CT. RADIATION DOSE DELIVERED: 268.49mGy.cm Total DLP !Error CTDIvol DATA REPOSITORY: All CT scans at this facility are submitted to the National Radiology Data Registry (NRDR) Dose Index Registry (DIR) with the [employer] (ACR). RADIATION OPTIMIZATION: All CT scans at this facility use at least one of these dose optimization te chniques: automated exposure control; mA and/or kV adjustment per patient size (includes targeted exa ms where dose is matched to clinical indication); or iterative reconstruction.
== END ==
PROVIDERS: PCP Nurse Practitioner Family; Visit Provider Nurse Practitioner Family
DX: M86.172 Other acute osteomyelitis, left ankle and foot (principal)
CPT/HCPCS: 73701; J3490

== ENCOUNTER 2022-07-23 12:27 | Outpatient (REF) | payer MEDICARE, MEDICAID, SELFPAY ==
[2022-07-23 13:41] LABS: Abs Immature Grans 0.01 10^3/uL (0.0-0.06); Absolute Basophil Count 0.05 10^3/uL (0.0-0.2); Absolute Eosinophil Count 0.44 10^3/uL (0.0-0.7); Absolute Lymphocyte Count 1.29 10^3/uL (1.2-3.4); Absolute Monocyte Count 0.62 10^3/uL (0.1-0.8); Absolute Neutrophil Count 2.63 10^3/uL (1.2-6.7); Eosinophils % 8.7; HGB 10.2 g/dL (13.5-17.5); Immature Grans % 0.2; Lymphocytes % 25.6; MCH 29.1 pg (27.0-33.0); MCHC 31.9 % (32.0-36.0); MCV 91 fL (80-95); MPV 11.3 fL (8.0-11.0); Monocytes % 12.3; Neutrophils % 52.2; Platelet Count 142 10^3/uL (130-400); RBC 3.51 10^6/uL (4.36-5.78); RDW 13.5 % (11.8-14.1); RDW-SD 45.1 fL; WBC 5.04 10^3/uL (4.4-10.8)
[2022-07-23 13:43] LABS: ESR 37 mm/hr (0-20)
[2022-07-23 14:00] LABS: ALT 56 U/L (16-63); AST 42 U/L (15-37); Albumin 2.5 g/dL (3.4-5.0); Alkaline Phosphatase 99 U/L (46-116); Anion Gap 4.5 mmol/L (3-11); BUN 20 mg/dL (7-18); Bilirubin, Total 0.3 mg/dL (0.2-1.0); C-Reactive Protein 1.43 mg/dL (0.0-0.3); CO2 31.5 mmol/L (21.0-32.0); Calcium 8.2 mg/dL (8.5-10.1); Chloride 106 mmol/L (98-107); Estimated GFR 80.97 (mL/min/1.73m2); Glucose 180 mg/dL (74-106); Potassium 3.9 mmol/L (3.5-5.1); Sodium 142 mmol/L (136-145); Total Protein 6.8 g/dL (6.4-8.2)
[2022-07-25 14:05] LABS: Creatine Kinase 47 U/L (39-308)
== END 2022-07-23 12:28 | disposition home or self-care (01) ==
LOC: LBN 12:27
PROVIDERS: Nurse Practitioner; PCP Nurse Practitioner Family; Visit Provider Nurse Practitioner Family
DX: E11.621 Type 2 diabetes mellitus with foot ulcer (principal)
CPT/HCPCS: 80053; 82550; 85652; 85025; 86140

== ENCOUNTER → 2022-07-26 02:59 | Outpatient (CLI) | payer MEDICARE, MEDICAID, SELFPAY ==
--- NOTE | 2022-07-26 07:15 | DI.MRI_ITS ---
Exam(s) MR LOWER EXTREMITY LT WO/W EXAM: MR LOWER EXTREMITY LT WO/W CLINICAL HISTORY: L foot osteomyelitis, M86.9 TECHNIQUE: Multiplanar multisequence MRI was performed both pre and post contrast infused sequences. Contrast injected was 20 mL IV Dotarem. Field of view. COMPARISON: CR XR TOE LT GREAT from 06/13/2022 FINDINGS: MARROW:There is abnormal signal throughout the remainder of the osseous distal phalanx of the great t oe exhibiting hypointense ghosting on non fat sat noninjected T1 sequences, consistent with osteomy elitis. There is also abnormal bright signal on T2 stir sequences at this level. Significant signal abnormality in the interphalangeal joint region. In addition, there is similar involvement of the distal aspect of the proximal phalanx of the great t oe which also exhibits confluent hypointense T1 signal. The more proximal aspect of the proximal pha lanx of the great toe exhibits bone edema and some enhancement but without confluent hypointense T1 s ignal. The metatarsophalangeal joint of the great toe exhibits some minimal surrounding edema but without pr ominent joint effusion and no definite osteomyelitis at this level. Also no osteomyelitis evident in the hallucal sesamoid bones. No soft tissue abscess evident. MUSCLES: No tendon detachment nor prominent tenosynovitis. OTHER: The phalanges of the 2nd, 3rd, 4th, and 5th toes appear unremarkable as do the corresponding m etatarsals. The visualize main Lisfranc ligament is intact. IMPRESSION: 1. Findings are consistent with osteomyelitis of the remaining distal phalanx of the great toe, the d istal aspect of the proximal phalanx, as well as infection within the intervening interphalangeal kenton nt of the great toe. 2. There is edema signal and enhancement in the proximal aspect of the proximal phalanx of the great toe which is either due to early osteomyelitis at this level or reactive edema. The lack of confluen t hypointense T1 signal at this level is against high confidence diagnosis of this involvement of thi s aspect with osteomyelitis. Nevertheless, this part of the bone in the proximal phalanx of the grea t toe is at high risk. DATA REPOSITORY:
[2022-07-26] MEDS: Normal Saline Flush 10 ML SYR IVP (09:58)
[2022-07-26] MEDS: Gadoterate meglumine 20 ML SYRINGE IVP (09:58)
== END ==
PROVIDERS: PCP Nurse Practitioner Family; Visit Provider Podiatrist Foot & Ankle Surgery
DX: M86.172 Other acute osteomyelitis, left ankle and foot (principal)
CPT/HCPCS: 73720

== ENCOUNTER 2022-07-30 15:41 | Outpatient (REF) | payer MEDICARE, MEDICAID, SELFPAY ==
[2022-07-30 15:59] LABS: Abs Immature Grans 0.03 10^3/uL (0.0-0.06); Absolute Basophil Count 0.09 10^3/uL (0.0-0.2); Absolute Eosinophil Count 0.42 10^3/uL (0.0-0.7); Absolute Lymphocyte Count 1.53 10^3/uL (1.2-3.4); Absolute Neutrophil Count 5.12 10^3/uL (1.2-6.7); Basophils % 1.1; Eosinophils % 5.3; HCT 36.3 % (40.0-50.0); Immature Grans % 0.4; Lymphocytes % 19.4; MCH 29.4 pg (27.0-33.0); MCHC 33.1 % (32.0-36.0); MCV 89 fL (80-95); MPV 10.9 fL (8.0-11.0); Monocytes % 8.9; Neutrophils % 64.9; Platelet Count 189 10^3/uL (130-400); RBC 4.08 10^6/uL (4.36-5.78); RDW 13.3 % (11.8-14.1); RDW-SD 43.6 fL; WBC 7.89 10^3/uL (4.4-10.8)
[2022-07-30 16:03] LABS: ESR 56 mm/hr (0-20)
[2022-07-30 16:15] LABS: ALT 55 U/L (16-63); AST 34 U/L (15-37); Albumin 2.7 g/dL (3.4-5.0); Alkaline Phosphatase 122 U/L (46-116); Anion Gap 3.6 mmol/L (3-11); BUN 28 mg/dL (7-18); Bilirubin, Total 0.3 mg/dL (0.2-1.0); C-Reactive Protein 1.32 mg/dL (0.0-0.3); CO2 31.4 mmol/L (21.0-32.0); CREATININE 1.1 mg/dL (0.70-1.30); Calcium 8.7 mg/dL (8.5-10.1); Chloride 102 mmol/L (98-107); Creatine Kinase 33 U/L (39-308); Estimated GFR 72.22 (mL/min/1.73m2); Glucose 329 mg/dL (74-106); Potassium 4.7 mmol/L (3.5-5.1); Sodium 137 mmol/L (136-145); Total Protein 7.3 g/dL (6.4-8.2)
== END 2022-07-30 15:42 | disposition home or self-care (01) ==
LOC: LBN 15:41
PROVIDERS: PCP Nurse Practitioner Family; Visit Provider Nurse Practitioner Family
DX: E11.621 Type 2 diabetes mellitus with foot ulcer (principal)
CPT/HCPCS: 80053; 82550; 85652; 85025; 86140

== ENCOUNTER 2022-08-06 18:07 | Outpatient (REF) | payer MEDICARE, MEDICAID, SELFPAY ==
[2022-08-06 15:18] LABS: Abs Immature Grans 0.03 10^3/uL (0.0-0.06); Absolute Basophil Count 0.07 10^3/uL (0.0-0.2); Absolute Eosinophil Count 0.38 10^3/uL (0.0-0.7); Absolute Lymphocyte Count 1.45 10^3/uL (1.2-3.4); Absolute Monocyte Count 0.81 10^3/uL (0.1-0.8); Absolute Neutrophil Count 4.81 10^3/uL (1.2-6.7); Basophils % 0.9; HCT 35.5 % (40.0-50.0); HGB 11.9 g/dL (13.5-17.5); Immature Grans % 0.4; Lymphocytes % 19.2; MCH 29.9 pg (27.0-33.0); MCHC 33.5 % (32.0-36.0); MCV 89 fL (80-95); MPV 11.2 fL (8.0-11.0); Monocytes % 10.7; Neutrophils % 63.8; Platelet Count 201 10^3/uL (130-400); RBC 3.98 10^6/uL (4.36-5.78); RDW 13.5 % (11.8-14.1); RDW-SD 44.1 fL; WBC 7.55 10^3/uL (4.4-10.8)
[2022-08-06 15:23] LABS: ESR 55 mm/hr (0-20)
[2022-08-06 15:24] LABS: ALT 53 U/L (16-63); AST 32 U/L (15-37); Albumin 2.8 g/dL (3.4-5.0); Alkaline Phosphatase 132 U/L (46-116); BUN 26 mg/dL (7-18); Bilirubin, Total 0.3 mg/dL (0.2-1.0); C-Reactive Protein 0.95 mg/dL (0.0-0.3); CREATININE 1.4 mg/dL (0.70-1.30); Calcium 8.6 mg/dL (8.5-10.1); Chloride 102 mmol/L (98-107); Creatine Kinase 42 U/L (39-308); Estimated GFR 54.07 (mL/min/1.73m2); Glucose 260 mg/dL (74-106); Potassium 4.7 mmol/L (3.5-5.1); Sodium 139 mmol/L (136-145); Total Protein 7.3 g/dL (6.4-8.2)
== END 2022-08-06 18:08 | disposition home or self-care (01) ==
LOC: NCHCN 18:07
PROVIDERS: Visit Provider Nurse Practitioner Family
DX: E11.621 Type 2 diabetes mellitus with foot ulcer (principal); M86.172 Other acute osteomyelitis, left ankle and foot
CPT/HCPCS: 80053; 82550; 85652; 85025; 86140

== ENCOUNTER 2022-08-13 14:27 | Outpatient (REF) | payer MEDICARE, MEDICAID, SELFPAY ==
[2022-08-13 14:03] LABS: ALT 42 U/L (16-63); AST 30 U/L (15-37); Albumin 2.8 g/dL (3.4-5.0); Alkaline Phosphatase 130 U/L (46-116); Anion Gap 4.3 mmol/L (3-11); BUN 25 mg/dL (7-18); Bilirubin, Total 0.3 mg/dL (0.2-1.0); C-Reactive Protein 0.99 mg/dL (0.0-0.3); CO2 33.7 mmol/L (21.0-32.0); Chloride 103 mmol/L (98-107); Creatine Kinase 35 U/L (39-308); Estimated GFR 80.97 (mL/min/1.73m2); Glucose 124 mg/dL (74-106); Potassium 4.2 mmol/L (3.5-5.1); Sodium 141 mmol/L (136-145); Total Protein 7.5 g/dL (6.4-8.2)
== END 2022-08-13 14:28 | disposition home or self-care (01) ==
LOC: LBN 14:27
DX: E11.621 Type 2 diabetes mellitus with foot ulcer (principal); L97.529 Non-pressure chronic ulcer of other part of left foot with unspecified severity
CPT/HCPCS: 80053; 82550; 85652; 85025; 86140

== ENCOUNTER 2022-08-20 16:42 | Outpatient (REF) | payer MEDICARE, MEDICAID, SELFPAY ==
[2022-08-20 17:25] LABS: Abs Immature Grans 0.02 10^3/uL (0.0-0.06); Absolute Basophil Count 0.06 10^3/uL (0.0-0.2); Absolute Eosinophil Count 0.34 10^3/uL (0.0-0.7); Absolute Lymphocyte Count 1.74 10^3/uL (1.2-3.4); Absolute Monocyte Count 0.62 10^3/uL (0.1-0.8); Basophils % 0.9; Eosinophils % 5.2; HGB 12.6 g/dL (13.5-17.5); Immature Grans % 0.3; Lymphocytes % 26.4; MCHC 33.2 % (32.0-36.0); MCV 87 fL (80-95); MPV 10.7 fL (8.0-11.0); Monocytes % 9.4; Neutrophils % 57.8; Platelet Count 208 10^3/uL (130-400); RBC 4.35 10^6/uL (4.36-5.78); RDW 13.1 % (11.8-14.1); RDW-SD 41.9 fL; WBC 6.58 10^3/uL (4.4-10.8)
[2022-08-20 17:31] LABS: ALT 41 U/L (16-63); AST 33 U/L (15-37); Albumin 2.9 g/dL (3.4-5.0); Alkaline Phosphatase 134 U/L (46-116); Anion Gap 6.2 mmol/L (3-11); BUN 27 mg/dL (7-18); Bilirubin, Total 0.3 mg/dL (0.2-1.0); C-Reactive Protein 0.69 mg/dL (0.0-0.3); CO2 30.8 mmol/L (21.0-32.0); CREATININE 1.1 mg/dL (0.70-1.30); Calcium 8.8 mg/dL (8.5-10.1); Chloride 102 mmol/L (98-107); Creatine Kinase 34 U/L (39-308); Estimated GFR 72.22 (mL/min/1.73m2); Glucose 273 mg/dL (74-106); Potassium 4.3 mmol/L (3.5-5.1); Sodium 139 mmol/L (136-145); Total Protein 7.5 g/dL (6.4-8.2)
[2022-08-20 17:32] LABS: ESR 54 mm/hr (0-20)
== END 2022-08-20 16:43 | disposition home or self-care (01) ==
LOC: NCHCN 16:42
PROVIDERS: Visit Provider Nurse Practitioner Family
DX: E11.621 Type 2 diabetes mellitus with foot ulcer (principal); L97.509 Non-pressure chronic ulcer of other part of unspecified foot with unspecified severity
CPT/HCPCS: 80053; 82550; 85652; 85025; 86140

== ENCOUNTER 2022-08-24 06:13 | Day surgery (SDC) | payer MEDICARE, MEDICAID, SELFPAY ==
[2022-08-24 06:15] VITALS: BP 156/79; PULSE 93; RESP 18; TEMP 36.7; O2SAT 96
[2022-08-24] MEDS: Lactated Ringers 1,000 ML 80 ML IV (07:04)
--- NOTE | 2022-08-24 07:05 | ANES.PREOP_ITS ---
General Info Date of Service Date Performed: 08/24/22 Height: 6 ft 3 in Weight: 101.5 kg Body Mass Index (BMI): 27.9 Surgical Procedure: Operation Date: 08/24/22 07:40 Proposed Procedure Side Surgeon p LEFT HALLUX AMPUTATION WITH REMOVAL OF ALL INFECTED BONE Left Kely Ty DPM Meds Allergies and Home Medications Allergies Allergy/AdvReac Type Severity Reaction Status Date / Time codeine AdvReac itching Verified 08/24/22 06:26 and bloutchy naloxone HCl [From Narcan] AdvReac Verified 08/24/22 06:26 pentazocine lactate AdvReac makes me Verified 08/24/22 06:26 [From Talwin] deathly ill Narcotic AdvReac H/O drug Uncoded 08/24/22 06:26 abuse narcotic antagonists AdvReac Uncoded 08/24/22 06:26 Home Medication Medication Instructions Recorded clonazepam 1 mg tablet 1 mg PO DAILY PRN PRN 04/07/13 methadone 10 mg/mL oral concentrate 225 mg PO DAILY 04/07/13 metformin 500 mg tablet,extended 500 mg PO BID 01/15/19 release 24 hr gabapentin 800 mg tablet 800 mg PO QID 12/21/19 insulin glargine 100 unit/mL (3 30 unit subcut QAM 12/21/19 mL) subcutaneous pen (Lantus Solostar U-100 Insulin) insulin glargine 100 unit/mL (3 50 unit subcut QPM 12/21/19 mL) subcutaneous pen (Lantus Solostar U-100 Insulin) levothyroxine 137 mcg tablet 137 mcg PO DAILY 12/21/19 amlodipine 5 mg tablet 5 mg PO DAILY 03/09/22 ascorbic acid (vitamin C) 1,000 mg 1,000 mg PO DAILY 03/09/22 tablet (Vitamin C) carvedilol 12.5 mg tablet 12.5 mg PO DAILY 03/09/22 honey 80 % topical gel (MediHoney 1 applic topical DAILY PRN #44 mL 03/09/22 (honey)) zinc 50 mg tablet 50 mg PO DAILY 03/09/22 daptomycin 350 mg intravenous 700 mg IVPB DAILY #35 ea 06/19/22 solution cholecalciferol (vitamin D3) 250 250 mcg PO DAILY 07/31/22 mcg (10,000 unit) capsule silver sulfadiazine 1 % topical 1 applic topical USEASDIRECTD 08/23/22 cream (Silvadene) Current Visit Medications: Current Medications Generic Name Dose Route Start Last Admin Trade Name Cosme PRN Reason Stop Dose Admin Ringer's Solution 1,000 mls @ 80 mls/hr 08/24/22 06:00 08/24/22 07:04 IV 08/24/22 23:59 80 mls/hr INFUSION JODI Administration Cefazolin Sodium/Dextrose 1 gm in 50 mls @ 100 mls/hr 08/24/22 06:00 Ancef Duplex IVPB 08/24/22 16:00 PREOP JODI IV Miscellaneous Supplies 1 each 08/24/22 06:00 Iv Access IV 08/24/22 23:59 DIRECTED JODI Sodium Chloride 0 ml 08/24/22 06:00 Normal Saline Flush 10 Ml Syr IV 08/24/22 23:59 PRN PRN Sodium Chloride 0 ml 08/24/22 06:00 Normal Saline 10 Ml Vial IJ 08/24/22 23:59 DIRECTED PRN Sterile Water 0 ml 08/24/22 06:00 Water,Injection,Sterile 10 Ml Vial IJ 08/24/22 23:59 DIRECTED PRN PFSH Active Problems Active Problems: Problem Status Onset Code Amputation of toe of right foot S98.131A Chronic ulcer of great toe L97.509 Osteomyelitis of great toe of left foot M86.9 Hyperglycemia R73.9 Hypothyroidism E03.9 Osteomyelitis due to type 2 diabetes mellitus E11.69, M86.9 Foot infection L08.9 Cellulitis L03.90 Osteomyelitis of toe of right foot M86.9 MRSA bacteremia R78.81, B95.62 Diabetic infection of right foot E11.628, L08.9 Cellulitis of foot, right L03.115 Acute kidney injury N17.9 Osteomyelitis of second toe of left foot M86.9 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 E11.42, E11.65 Osteomyelitis of second toe of right foot M86.9 Substance abuse in remission F19.11 Hypertension I10 Diabetes E11.9 Medical History Medical History Anxiety History of amputation of great toe Toe osteomyelitis, right Right great toe Medical History Comments:: Current IV PICC line Left side - IV administration of daptomycin Surgical History Surgical History History of appendectomy History of inguinal hernia repair 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 DOS: 01/15/19 Tobacco Smoking/Tobacco Use Status: Current every day Tobacco Type: cigars Alcohol Alcohol Intake: former Substance Use Substance use: Current Sobriety Substance use type: former substance user Vital Signs and Lab Results Vital Signs Most Recent Vital Signs in EMR: Most Recent Vital Signs Temp Pulse Resp BP Pulse Ox 36.7 C 93 H 18 156/79 H 96 08/24/22 06:15 08/24/22 06:15 08/24/22 06:15 08/24/22 06:15 08/24/22 06:15 Lab Results Blood Type / Crossmatch: No Data to Display Complete Blood Count: White Blood Count 6.58 10^3/uL (4.4-10.8) 08/20/22 16:10 Red Blood Count 4.35 10^6/uL (4.36-5.78) L 08/20/22 16:10 Hemoglobin 12.6 g/dL (13.5-17.5) L 08/20/22 16:10 Hematocrit 38.0 % (40.0-50.0) L 08/20/22 16:10 Platelet Count 208 10^3/uL (130-400) 08/20/22 16:10 Complete Metabolic Panel: Sodium Level 139 mmol/L (136-145) 08/20/22 16:10 Potassium Level 4.3 mmol/L (3.5-5.1) 08/20/22 16:10 Chloride Level 102 mmol/L (98-107) 08/20/22 16:10 Carbon Dioxide Level 30.8 mmol/L (21.0-32.0) 08/20/22 16:10 Blood Urea Nitrogen 27 mg/dL (7-18) H 08/20/22 16:10 Creatinine 1.1 mg/dL (0.70-1.30) 08/20/22 16:10 Calcium Level 8.8 mg/dL (8.5-10.1) 08/20/22 16:10 Albumin 2.9 g/dL (3.4-5.0) L 08/20/22 16:10 Glucose Level 273 mg/dL (74-106) H 08/20/22 16:10 C-Reactive Protein 0.69 mg/dL (0.0-0.3) H 08/20/22 16:10 Liver Function Panel: Alanine Aminotransferase (ALT/SGPT) 41 U/L (16-63) 08/20/22 16: 10 Aspartate Amino Transf (AST/SGOT) 33 U/L (15-37) 08/20/22 16:10 Coagulation Panel: No Data to Display Cardiac Panel: Creatine Kinase 34 U/L (39-308) L 08/20/22 Arterial Blood Gas: No Data to Display Venous Blood Gas: No Data to Display Pancreas Panel: No Data to Display Thyroid Panel: No Data to Display Infectious Disease: No Data to Display Blood Cultures: No Data to Display Toxicology Panel: No Data to Display Anesthesia Assessment and Plan Anesthesia History Personal History: No History of Anesthesia Complications Family History: No Family History of Anesthesia Complications Exercise Tolerance Exercise Tolerance: Metabolic Equivalents>4 Pertinent Negatives Pertinent Negatives: No Symptoms of GERD, No Major Cardiovascular Symptoms or Complaints, No Major Pulmonary Symptoms or Complaints (Smoker: 1 cigar a day) and No History of CVA/TIA (Seizure drug induced) Cardiac & Pulmonary Exam Cardiac Exam: Normal S1/S2 Heart Sounds Pulmonary Exam: Clear Bilateral Breath Sounds Implantable Cardiac Device Does patient have a Pacemaker or an ICD?: No Airway Exam Known Difficult Airway: No Mallampati Class: 1 Mouth Opening: Normal (> 3cm) Thyromental Distance: Greater than 3 cm Neck Range of Motion: Full ROM Neck Circumference: Normal Teeth Condition: Removable Dentures/Plates Upper ASA Classification ASA Score: ASA 2 Emergency Case?: No NPO Status NPO Status: NPO Clears >2 hours, Solids >8 hours Anesthesia Plan Resuscitation Status: Full Code Anesthesia Technique: General Anesthesia Airway Planned: Natural Airway Monitors Used: Standard Monitors Preoperative Comments:: 225 mg methadone a day x 21 years
[2022-08-24 07:08] VITALS: BMI 27.9
[2022-08-24] MEDS: ceFAZolin 1 GM/50 ML BAG IVPB (07:46)
[2022-08-24] MEDS: Bupivacaine 0.5% Pres-Free 30 ML VIAL (07:49)
[2022-08-24] MEDS: Lidocaine 1% Pres-Free 30 ML VIAL (07:49)
--- NOTE | 2022-08-24 08:06 | AMP_PTH ---
PATIENT: Darwin Caballero LOC: [facility] U#:[id number] AGE/SX: 72/M ROOM: RE08/24/[address]: Kely Ty : 1950 BED: DIS: 08/24/2022 SPEC #: [id number] RECD: 08/24/22 12:45 STATUS: VERONICA REQ #: [id number] ILIANA: 08/24/22 08:[address]: Kely Ty DEPT: Surgical Specimen RECD BY: Teri Lopez ENTERED: 08/24/22 12:48 SP TYPE: Amputation OTHR DR: Galen Rivera Tissues: 1 - AMPUTATION FINGERS/TOES(NOT TRAUMA) Procedures: GROSS LEVEL 1 Comments: [id number]
[2022-08-24 09:00] VITALS: BP 104/62; PULSE 54; RESP 16; TEMP 36.2; O2SAT 92
--- NOTE | 2022-08-24 09:03 | W.ANESPOSTOP ---
Postoperative Evaluation Date, Time and Location Date Performed: 08/24/22 Time Performed: 09:03 Patient Location: Day Surgery Unit Vital Signs Most Recent Imported Vital Signs: Most Recent Vital Signs Temp Pulse Resp BP Pulse Ox 36.7 C 93 H 18 156/79 H 96 08/24/22 06:15 08/24/22 06:15 08/24/22 06:15 08/24/22 06:15 08/24/22 06:15 Most Recent Manually Entered Vital Signs: Adult Blood Pressure: 104/62 Heart Rate: 53 Respirations: 12 Oxygen Saturation (%): 95 Temperature (C): 36.3 C Pain Score (0-10 Scale): 0 Assessment Mental Status: Awake (Alert & Oriented to Patient Baseline) Airway and Respiratory Function: Patent airway with normal (patient baseline) respiratory exam Cardiovascular Function: Hemodynamically Stable Hydration Status: Adequately Hydrated Nausea & Vomiting: No Nausea or Vomiting Pain: Pt. Denies Any Pain Peripheral Nerve Block: Patient did not receive a nerve block
[2022-08-24 09:04] VITALS: BP 104/62; PULSE 53; RESP 12; TEMPC 36.3; O2SAT 95
--- NOTE | 2022-08-24 09:15 | W.PM.DSUDISC ---
Discharge Plan Disposition Patient Disposition: HOME Condition: Good Discharge Details Reason For Visit: osteomyelitis L foot Attending Provider: Kely Ty Primary Care Provider: Betty Rivera RN,[place] Home Meds and New Rx's Prescriptions: Continued cholecalciferol (vitamin D3) 250 mcg (10,000 unit) capsule 250 mcg PO DAILY Rx Instructions: 07/31/22 unsure of dose jwo methadone 10 MG/ML concentrate 225 mg PO DAILY clonazepam 1 MG tablet 1 mg PO DAILY PRN PRN metformin 500 mg tablet extended release 24 hr 500 mg PO BID ascorbic acid (vitamin C) [Vitamin C] 1,000 mg tablet 1,000 mg PO DAILY carvedilol 12.5 mg tablet 12.5 mg PO DAILY Label Comments: TAKE ONE TABLET BY MOUTH TWICE A DAY amlodipine 5 mg tablet 5 mg PO DAILY Label Comments: Take 1 tablet by mouth twice a day zinc 50 mg tablet 50 mg PO DAILY MediHoney (honey) 80 % gel 1 applic topical DAILY PRNQty: 44 0RF silver sulfadiazine [Silvadene] 1 % Cream 1 applic TOPICAL USEASDIRECTD levothyroxine 137 mcg Tablet 137 mcg PO DAILY gabapentin 800 mg Tablet 800 mg PO QID insulin glargine [Lantus Solostar U-100 Insulin] 100 unit/mL (3 mL) Insulin Pen 30 unit SUBCUT QAM insulin glargine [Lantus Solostar U-100 Insulin] 100 unit/mL (3 mL) Insulin Pen 50 unit SUBCUT QPM daptomycin 350 mg Recon Soln 700 mg IVPB DAILY Qty: 35 0RF Discharge Instructions Additional Instructions: Only place weight on your foot with the post-op shoe on. Always use the post-op (velcro) shoe. Limit activity. Elevate your foot above the level of your heart (propped on 2 pillows) but move / rotate your ankle every hour. Keep your bandage clean and until until your appt with Dr. Ty. Please call [facility] [phone] and ask to speak to Dr. Ty if you have any problems. Activity:: Limited Activity Remove Dressings/Wound Care:: Do Not Remove Shower/Bathe:: Cover Diet:: As Tolerated Discharge Orders Discharge Orders: Discharge Order (Routine); Ordered 08/24/22 Ordered By: Kely Ty
--- NOTE | 2022-08-24 09:28 | W.PM.OP ---
Date of service: 08/24/22 Time of Service: 07:35 Operative Note Operative Note DATE OF PROCEDURE: 08/24/22 PRE-OP DIAGNOSIS: L foot osteomyelitis POST-OP DIAGNOSIS: same PROCEDURE: L hallux amputation and L 1st partial ray section with resection of osteomyelitic bone and bone biopsy (proximal margin) SURGEON: Kely Ty ANESTHESIA TYPE: General:No Airway and Primary Nerve Block Refer to Anesthesia Record ESTIMATED BLOOD LOSS: 30 PATHOLOGY: other (L hallux, L 1st metatarsal, assess proximal margin (marked) for osteomyelitis) COMPLICATIONS: None Patient was transported to: same day Patient's condition: stable Implants: none Indications: osteomyelitis Findings: See dictation Procedure Description: The patient was brought into the operating room and placed on the operating table in the supine position. Following general anesthesia, local anesthetic block was performed about the patient's left first ray utilizing 20 cc of one-to-one mix of 0.5% Marcaine plain and 1% lidocaine plain. The right foot was then scrubbed, prepped, draped using the usual aseptic manner. Attention was directed to the left first ray where a modified tennis racquet incision was utilized to excise the left hallux and disarticulate the left hallux from the foot at the first metatarsophalangeal joint. Incision was made deep to bone with hemostasis achieved with only and surgical technique. The edges were achieved and it should be noted that appropriate perfusion was noted throughout the course of the procedure. The left hallux was disarticulated as noted and attention was directed to the distal aspect of the first metatarsal head where a sagittal saw was utilized to resect the most distal aspect of the first metatarsal. This was sent for pathological evaluation and confirmation of a clean proximal margin. All bleeders were ligated and cauterized as appropriate. The wound was irrigated with 3 L of sterile normal saline and a bone rongeur was utilized to resect bone biopsy from the remaining distal aspect of the first metatarsal head, and this was sent for microbiological evaluation as well. Appropriate hemostasis was achieved throughout using trigger point week and cauterization. Deep tissue was reapproximated coapted utilizing 3-0 Vicryl, and skin was reapproximated coapted utilizing 3-0 and 4-0 nylon with a combination of simple and horizontal mattress interrupted suture technique. The wound was dressed with Xeroform dry sterile dressing and Ren wrap. He was transferred to the PACU with vital signs stable and vascular status intact. Following a period of postoperative monitoring he will be discharged home with instructions to limit his activity, uses postop shoe at all times, elevate his foot, keep his dressing dry and intact, and follow-up with myself next week. He has an appointment already established.
[2022-08-24 09:37] VITALS: BP 102/75; PULSE 55; RESP 18; TEMP 36.4; O2SAT 96
== END 2022-08-24 10:10 | disposition home or self-care (01) ==
PROVIDERS: PCP Nurse Practitioner Family; Visit Provider Podiatrist Foot & Ankle Surgery
PROC: (CPT 28820; principal; 2022-08-24 07:30)
DX: E11.69 Type 2 diabetes mellitus with other specified complication (principal); M86.8X8 Other osteomyelitis, other site; E03.9 Hypothyroidism, unspecified; E11.42 Type 2 diabetes mellitus with diabetic polyneuropathy; E11.65 Type 2 diabetes mellitus with hyperglycemia
CPT/HCPCS: 28820; 87077; 88300; 87070; 87075; 87186; 87205; J0131; J0690; J1885; J2250

== ENCOUNTER → 2022-09-21 01:14 | Outpatient (CLI) | payer MEDICARE, MEDICAID, SELFPAY ==
--- NOTE | 2022-09-21 12:58 | DI.RAD_ITS ---
Exam(s) XR FOOT RT COMPLETE EXAM: XR FOOT RT COMPLETE CLINICAL HISTORY: Longstanding R TMA site, amputation of toe rt foot, chronic ulcer, s98.131a. TECHNIQUE: 2D digital imaging was performed of the right foot. Three images were obtained. AP, obl ique and lateral views were obtained. COMPARISON: CR XR FOOT RT COMPLETE from 06/14/2022 FINDINGS: BONES: No acute fracture is present. There again seen amputations at the level of the metatarsals of the 1st through 5th toes. No definite radiographic evidence is seen to suggest osteomyelitis. JOINTS: No dislocation present. SOFT TISSUE: Normal. IMPRESSION: No definite evidence to suggest osteomyelitis. If there is concern for osteomyelitis, an MRI may be considered for further evaluation. DATA REPOSITORY: RADIATION DOSE DELIVERED:
== END ==
PROVIDERS: PCP Nurse Practitioner Family; Visit Provider Podiatrist Foot & Ankle Surgery
DX: L97.519 Non-pressure chronic ulcer of other part of right foot with unspecified severity (principal); S98.131A Complete traumatic amputation of one right lesser toe, initial encounter
CPT/HCPCS: 73630

== ENCOUNTER 2022-10-22 17:26 | Outpatient (REF) | payer MEDICARE, MEDICAID, SELFPAY ==
[2022-10-24 10:39] LABS: Hepatitis C Ab w Rflx HCV PCR Reactive (Negative)
[2022-10-25 14:00] LABS: HCV RNA Qualitative Undetected (Undetected)
== END 2022-10-22 17:27 | disposition home or self-care (01) ==
LOC: NCHCN 17:26
PROVIDERS: Visit Provider Nurse Practitioner Family
DX: Z11.59 Encounter for screening for other viral diseases (principal)
CPT/HCPCS: 86803; 87522

== ENCOUNTER 2022-10-24 15:28 | Outpatient (REF) | payer MEDICARE, MEDICAID, SELFPAY | END 2022-10-24 15:29 | disposition home or self-care (01) | LOC: LBN 15:28 | PROVIDERS: PCP Nurse Practitioner Family; Visit Provider Podiatrist Foot & Ankle Surgery | DX: M86.9 Osteomyelitis, unspecified (principal) | CPT/HCPCS: 87077; 87070; 87186; 87205 ==

== ENCOUNTER → 2022-10-26 02:21 | Outpatient (CLI) | payer MEDICARE, MEDICAID, SELFPAY ==
--- NOTE | 2022-10-26 08:00 | DI.RAD_ITS ---
Exam(s) XR FOOT LT COMPLETE EXAM: XR FOOT LT COMPLETE CLINICAL HISTORY: R 2nd toe infection, L TMA with probe to bone,m86.9,l97.509,s98.131a. TECHNIQUE: 2D digital imaging was performed. Three views. COMPARISON: CR XR TOE LT GREAT from 06/13/2022 CR XR FOOT RT COMPLETE from 06/14/2022 MR MR LOWER EXTREMITY LT WO/W from 07/26/2022 CR XR FOOT RT COMPLETE from 09/21/2022 FINDINGS: BONES: Patient is status post amputation of the 1st toe and 1st metatarsal head. There is surroundin g soft tissue swelling. There is slight irregularity and some cortical disruption distally which cou ld indicate osteomyelitis. JOINTS: No dislocation present. Degenerative changes tarsal region. IMPRESSION: Soft tissue swelling around distal 1st metatarsal. Question of mild distal erosions which could nadia ara osteomyelitis. Of osteomyelitis. DATA REPOSITORY: RADIATION DOSE DELIVERED:
--- NOTE | 2022-10-26 08:00 | DI.RAD_ITS ---
Exam(s) XR FOOT RT COMPLETE EXAM: XR FOOT RT COMPLETE CLINICAL HISTORY: R 2nd toe infection, L TMA with probe to bone,s98.13,l97.509,m86.9,osteomye. TECHNIQUE: 2D digital imaging was performed. Three views. COMPARISON: CR XR FOOT RT COMPLETE from 09/21/2022 CR XR FOOT LT COMPLETE from 10/26/2022 FINDINGS: BONES: Status post amputation at the distal 1st through 5th metatarsals. Slight irregularity at the distal 1st mesh metatarsal which could indicate osteomyelitis. The 2nd through 5th metatarsal stumps appear smooth distally. JOINTS: No dislocation present. SOFT TISSUE: Soft tissue swelling and ulceration near stump of 1st metatarsal. IMPRESSION: Soft tissue swelling and ulcer. Question of some irregularity at the distal stump of the 1st metatar irvin. This could indicate osteomyelitis. DATA REPOSITORY: RADIATION DOSE DELIVERED:
[2022-10-26 17:23] LABS: Abs Immature Grans 0.05 10^3/uL (0.0-0.06); Absolute Basophil Count 0.07 10^3/uL (0.0-0.2); Absolute Eosinophil Count 0.27 10^3/uL (0.0-0.7); Absolute Lymphocyte Count 1.86 10^3/uL (1.2-3.4); Absolute Monocyte Count 1.06 10^3/uL (0.1-0.8); Absolute Neutrophil Count 6.46 10^3/uL (1.2-6.7); Basophils % 0.7; Eosinophils % 2.8; HCT 39.7 % (40.0-50.0); HGB 12.9 g/dL (13.5-17.5); Immature Grans % 0.5; MCH 28.8 pg (27.0-33.0); MCHC 32.5 % (32.0-36.0); MCV 89 fL (80-95); Monocytes % 10.8; Neutrophils % 66.2; Platelet Count 330 10^3/uL (130-400); RBC 4.48 10^6/uL (4.36-5.78); RDW 12.5 % (11.8-14.1); RDW-SD 40.9 fL; WBC 9.77 10^3/uL (4.4-10.8)
[2022-10-26 17:24] LABS: ESR 107 mm/hr (0-20)
[2022-10-28 17:46] LABS: CRP, High Sensitivity >15.00 mg/L (See Note)
== END ==
PROVIDERS: Visit Provider Podiatrist Foot & Ankle Surgery
DX: L97.519 Non-pressure chronic ulcer of other part of right foot with unspecified severity (principal); M86.9 Osteomyelitis, unspecified; S98.131A Complete traumatic amputation of one right lesser toe, initial encounter
CPT/HCPCS: 36415; 85652; 86141; 73630; 85025

== ENCOUNTER 2022-12-26 01:55 | Outpatient (CLI) | payer MEDICARE, MEDICAID, SELFPAY ==
--- NOTE | 2022-12-26 08:00 | DI.MRI_ITS ---
Exam(s) MR LOWER EXTREMITY RT WO/W EXAM: MR LOWER EXTREMITY RT WO/W CLINICAL HISTORY: osteomyelitis RT FOOT, M86.9,DIABETIC INFECTION,E11.628. TECHNIQUE: Multiplanar multisequence MRI was performed. CONTRAST MATERIAL: IV Contrast: 20 mL of Dotarem contrast administered. COMPARISON: Plain films 26 October 2022. No more recent films available. FINDINGS: Prior amputations noted at the level of the mid 1st through 5th metatarsals. There is a large soft tissue wound and a large amount of underlying subcutaneous edema. There is abn ormal erosion and marrow edema involving the 1st metatarsal which extends nearly to the base. A mild amount of edema is seen in the distal portion of the 2nd metatarsal at the resection margin which sh ows some contrast enhancement, suspicious for osteomyelitis. There may metatarsals appear intact. T he tarsal marrow signal appears normal. No no gross tendon abnormalities. IMPRESSION: Findings consistent with osteomyelitis with severe destruction of the remaining portion of the 1st me tatarsal. Osteomyelitis at the tip of the stump of the 2nd metatarsal or also suspected DATA REPOSITORY:
[2022-12-26 12:59] LABS: Abs Immature Grans 0.01 10^3/uL (0.0-0.06); Absolute Basophil Count 0.07 10^3/uL (0.0-0.2); Absolute Eosinophil Count 0.34 10^3/uL (0.0-0.7); Absolute Lymphocyte Count 1.62 10^3/uL (1.2-3.4); Absolute Monocyte Count 0.51 10^3/uL (0.1-0.8); Absolute Neutrophil Count 2.71 10^3/uL (1.2-6.7); Basophils % 1.3; Eosinophils % 6.5; HCT 39.1 % (40.0-50.0); HGB 12.7 g/dL (13.5-17.5); Immature Grans % 0.2; Lymphocytes % 30.8; MCH 29.2 pg (27.0-33.0); MCHC 32.5 % (32.0-36.0); MCV 90 fL (80-95); MPV 10.2 fL (8.0-11.0); Monocytes % 9.7; Neutrophils % 51.5; Platelet Count 220 10^3/uL (130-400); RBC 4.35 10^6/uL (4.36-5.78); RDW 14.6 % (11.8-14.1); RDW-SD 48.3 fL; WBC 5.26 10^3/uL (4.4-10.8)
[2022-12-26 13:01] LABS: ESR 76 mm/hr (0-20)
[2022-12-26 13:17] LABS: ALT 36 U/L (16-63); AST 31 U/L (15-37); Albumin 3.1 g/dL (3.4-5.0); Alkaline Phosphatase 129 U/L (46-116); BUN 34 mg/dL (7-18); Bilirubin, Total 0.2 mg/dL (0.2-1.0); C-Reactive Protein 0.76 mg/dL (0.0-0.3); CREATININE 1.2 mg/dL (0.70-1.30); Calcium 8.7 mg/dL (8.5-10.1); Chloride 104 mmol/L (98-107); Estimated GFR 65.06 (mL/min/1.73m2); Glucose 274 mg/dL (74-106); Potassium 4.3 mmol/L (3.5-5.1); Sodium 137 mmol/L (136-145); Total Protein 7.7 g/dL (6.4-8.2)
[2022-12-26] MEDS: Normal Saline Flush 10 ML SYR IVP (13:25)
[2022-12-26] MEDS: Gadoterate meglumine 20 ML VIAL IVP (13:25)
== END 2022-12-26 02:15 ==
PROVIDERS: PCP Nurse Practitioner Family; Visit Provider Nurse Practitioner Family
DX: M86.171 Other acute osteomyelitis, right ankle and foot (principal); E11.628 Type 2 diabetes mellitus with other skin complications; E11.69 Type 2 diabetes mellitus with other specified complication; L08.89 Other specified local infections of the skin and subcutaneous tissue; R53.1 Weakness; L97.328 Non-pressure chronic ulcer of left ankle with other specified severity; M86.172 Other acute osteomyelitis, left ankle and foot
CPT/HCPCS: 80053; 85652; 73720; 85025; 86140

== ENCOUNTER 2023-05-03 13:45 | Outpatient (REF) | payer MEDICARE, MEDICAID, SELFPAY ==
[2023-05-03 21:37] LABS: Abs Immature Grans 0.04 10^3/uL (0.0-0.06); Absolute Lymphocyte Count 2.31 10^3/uL (1.2-3.4); Absolute Monocyte Count 1.14 10^3/uL (0.1-0.8); Absolute Neutrophil Count 7.64 10^3/uL (1.2-6.7); Basophils % 0.9; Eosinophils % 4.3; HGB 12.6 g/dL (13.5-17.5); Immature Grans % 0.3; Lymphocytes % 19.7; MCH 28.1 pg (27.0-33.0); MCHC 32.3 % (32.0-36.0); MCV 87 fL (80-95); MPV 10.5 fL (8.0-11.0); Monocytes % 9.7; Neutrophils % 65.1; Platelet Count 427 10^3/uL (130-400); RBC 4.49 10^6/uL (4.36-5.78); RDW 14.2 % (11.8-14.1); RDW-SD 45.1 fL; WBC 11.74 10^3/uL (4.4-10.8)
[2023-05-03 21:44] LABS: Absolute Basophil Count 0.11 10^3/uL (0.0-0.2)
[2023-05-03 21:46] LABS: ESR 113 mm/hr (0-20)
[2023-05-03 21:54] LABS: ALT 30 U/L (16-63); AST 27 U/L (15-37); Albumin 2.7 g/dL (3.4-5.0); Alkaline Phosphatase 167 U/L (46-116); Anion Gap 4.8 mmol/L (3-11); BUN 29 mg/dL (7-18); Bilirubin, Total 0.3 mg/dL (0.2-1.0); CO2 30.2 mmol/L (21.0-32.0); Calcium 9.3 mg/dL (8.5-10.1); Chloride 105 mmol/L (98-107); Estimated GFR 80.47 (mL/min/1.73m2); Glucose 77 mg/dL (74-106); Potassium 4.8 mmol/L (3.5-5.1); Sodium 140 mmol/L (136-145); TSH (W/Ref FT4) 3.91 uIU/mL (0.36-3.74); Total Protein 7.7 g/dL (6.4-8.2)
[2023-05-03 22:28] LABS: FREE T4 1.21 ng/dL (0.76-1.46)
== END 2023-05-03 13:46 | disposition home or self-care (01) ==
LOC: LBN 13:45
PROVIDERS: PCP Nurse Practitioner Family; Visit Provider Nurse Practitioner Family
DX: E11.9 Type 2 diabetes mellitus without complications (principal); I10 Essential (primary) hypertension; R41.89 Other symptoms and signs involving cognitive functions and awareness; R70.0 Elevated erythrocyte sedimentation rate; R79.89 Other specified abnormal findings of blood chemistry; R25.1 Tremor, unspecified
CPT/HCPCS: 80053; 85652; 84439; 84443; 85025

== ENCOUNTER 2023-05-13 08:48 | Inpatient (IN) | payer MEDICARE, MEDICAID, SELFPAY ==
[2023-05-13] VITALS (47 sets, daily range): BP systolic 151–206; BP diastolic 62–84; PULSE 0–106; RESP 9–26; TEMP 35.9–37; O2SAT 94–99
--- NOTE | 2023-05-13 08:45 | RT.EKG_ITS ---
APPROVED REPORT Exam: Resting ECG Reason for Exam: Stroke Patient Location: E HR:76 bpm ECG Measurements Heart Rate 76 AXIS MD 152 P 83 QRSd 98 QRS 17 QT 428 T 61 QTc 482 Conclusion Sinus rhythm...normal P axis, V-rate 60- 99
--- NOTE | 2023-05-13 09:00 | DI.CT_ITS ---
Exam(s) CT BRAIN NECK CTA EXAM: CT BRAIN NECK CTA CLINICAL HISTORY: cva. TECHNIQUE: Imaging Protocol: Axial CT angiography was performed with multi-slice acquisition and mu lti-planar and 3D reconstructions. CONTRAST MATERIAL: Intravenous: Omnipaque 350 Contrast volume:structured data in ml COMPARISON: CT CT HEAD CERV SPINE FACIAL WO from 01/22/[address] CHEST PE CTA from 03/09/2022 FINDINGS: CT Head W/O and W contrast: Ventricles and Extra axial spaces: Normal in size and morphology for the patient's age. Hemorrhage: None. Cerebral parenchyma: Old left-sided lacunar infarcts in the frontal white matter. Old infarct periph eral high left frontal region. Old infarct high left parietal region. Midline shift: None. Brainstem/Cerebellum: Old small periphery left inferior cerebellar infarct. Calvarium: Normal. Visualized Paranasal sinuses/Mastoids: Clear. Soft Tissues: Unremarkable. Enhancement: Normal. CTA Brain W: Internal Carotid Arteries: Right: Patent and normal diameter. Left: Occluded. Middle Cerebral Arteries: Right: No aneurysm, occlusion or significant stenosis. Left: No aneurysm, occlusion or significant stenosis. Anterior Cerebral Arteries: Right: No aneurysm, occlusion or significant stenosis. Left: No aneurysm, occlusion or significant stenosis. Posterior cerebral Arteries: Right: No aneurysm, occlusion or significant stenosis. Left: No aneurysm, occlusion or significant stenosis. Vertebral Arteries: Right: No aneurysm, occlusion or significant stenosis. Left: No aneurysm, occlusion or significant stenosis. Basilar Artery: No aneurysm, occlusion or significant stenosis. CTA Neck W: Common Carotid: Right: No dissection, occlusion or significant stenosis. Heavy plaque at the common carotid bulb. Mild stenosis. Left: No dissection, occlusion or significant stenosis. Heavy plaque common carotid bulb. External Carotid: Right: No dissection, occlusion or significant stenosis. Left: No dissection, occlusion or significant stenosis. Internal Carotid: Right: Heavy plaque proximally causing mild stenosis.. No dissection or occlusion. Left: Heavy plaque proximal internal carotid artery causing occlusion. No flow is seen along the ent juan course of the left internal carotid artery to the intracranial portion. Vertebral Artery: Right: No dissection, occlusion or significant stenosis. Left: No dissection, occlusion or significant stenosis. Lung Apices: Normal. Bones: Degenerative changes. No acute abnormality. Soft Tissues: Normal. IMPRESSION: 1. Normal CTA examination of the [place]. 2. 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 3. 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 Mild steno sis proximal right internal carotid artery secondary to heavy plaque.. Findings called to Dr. Forman of the emergency department. RADIATION DOSE DELIVERED: 2,287.45mGy.cm Total DLP DATA REPOSITORY: All CT scans at this facility are submitted to the National Radiology Data Registry (NRDR) Dose Index Registry (DIR) with the [employer] ([employer]). RADIATION OPTIMIZATION: All CT scans at this facility use at least one of these dose optimization te chniques: automated exposure control; mA and/or kV adjustment per patient size (includes targeted exa ms where dose is matched to clinical indication); or iterative reconstruction.
--- NOTE | 2023-05-13 09:05 | W.ED.GENAD ---
Discharge Plan Disposition Patient Disposition: Admit to [facility] Condition: Stable Discharge Details Chief Complaint: CVA/TIA Clinical Impression: Acute cerebrovascular accident (CVA) Primary Care Provider: Galen Ramirez ED Provider: Ankit Forman [place] Meds and New Rx's Prescriptions: No Action cholecalciferol (vitamin D3) 250 mcg (10,000 unit) capsule 250 mcg PO DAILY Rx Instructions: 07/31/22 unsure of dose jwo insulin lispro [Humalog KwikPen Insulin] 100 unit/mL insulin pen 10 unit subcut DAILY Rx Instructions: before each meals gabapentin 800 mg tablet 800 mg PO QID Qty: 360 4RF clonazepam 1 mg tablet 1 mg PO DAILY PRN PRN (Reason: anxiety) Qty: 30 5RF aspirin 81 mg tablet,delayed release (DR/EC) 81 mg PO DAILY albuterol sulfate 90 mcg/actuation HFA aerosol inhaler 2 puff inhalation Q6H PRN (DME) Blood Glucose Test Strip See Rx Instructions .Route Rx Instructions: As directed (DME) lancets 28 gauge misc See Rx Instructions .Route Rx Instructions: As directed (DME) blood-glucose meter Kit See Rx Instructions .Route Rx Instructions: As directed (DME) pen needle, diabetic [1st Tier Unifine Pentips] 32 gauge x 5/32 needle See Rx Instructions .Route Rx Instructions: As directed (DME) Dexcom G6 Mask Design Engineer Misc See Rx Instructions .ROUTE .MEDSUPPLY Qty: 1 3RF Rx Instructions: Continuous glucose monitor (DME) Dexcom G6 Sensor Device See Rx Instructions .ROUTE .MEDSUPPLY Qty: 3 3RF Rx Instructions: Continuous glucose monitor (DME) Dexcom G6 Transmitter Device See Rx Instructions .ROUTE .MEDSUPPLY Qty: 1 4RF Rx Instructions: Continuous glucose monitor insulin glargine [Lantus Solostar U-100 Insulin] 100 unit/mL (3 mL) insulin pen 30 unit SUBCUT QAM Qty: 15 12RF insulin glargine [Lantus Solostar U-100 Insulin] 100 unit/mL (3 mL) insulin pen 80 unit SUBCUT QPM Qty: 15 12RF methadone 10 MG/ML concentrate 225 mg PO DAILY metformin 500 mg tablet extended release 24 hr 500 mg PO BID ascorbic acid (vitamin C) [Vitamin C] 1,000 mg tablet 1,000 mg PO DAILY carvedilol 12.5 mg tablet 12.5 mg PO DAILY Patient Comments: TAKE ONE TABLET BY MOUTH TWICE A DAY amlodipine 5 mg tablet 5 mg PO DAILY Patient Comments: Take 1 tablet by mouth twice a day zinc 50 mg tablet 50 mg PO DAILY MediHoney (honey) 80 % gel 1 applic topical DAILY PRNQty: 44 0RF silver sulfadiazine [Silvadene] 1 % Cream 1 applic TOPICAL USEASDIRECTD levothyroxine 137 mcg Tablet 137 mcg PO DAILY Medical Decision Making 73 yo male with DM, prior substance abuse on methadone, 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 PAtient is not able to talk and shakes his head yes and no to questions but doesn't always answer correctly so son provides history. Son states the patient has been having issues with findings words, and was unable to speak more then 2-3 words at a time. HE has not been seen in the ED For this. His son last saw him yesterday morning and he apparently drives him to [place] for his methadone dosing. He states the patient was weak this morning and not talking at all but was awake and nodding his head yes and no to questions. The son still brought him to [place] for his methadone, when he got there the staff told him he should bring him to the ED. The son told him he was going to bring him to [facility] but he says his dad shook his head no and would only shake his head yes to come back to [facility] so he brought him here. The patient arrives with notable facial assymetry, and right sided weakness. HIs NIH is 14 (1 for LOC, 2 for month and age, 3 for facial palsy, 2 for right arm drift, 1 for right leg drift, 3 for aphasia and 2 for dysarthria). Pt's last known normal was well over 24 hours ago so not a candidate for lytics or interventional procedures at this time. 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 Pt stable, was given ativan as he was anxious and moving frequently prior to ct and seems less anxious now. Given symptoms for 24 hours doubt there is a procedure that can be done but will discuss the case with [facility] with Dr. Laboy at [facility] who reviewed case and presentation and images, did not feel intervention warranted acutely at this time, recommended medical management with aspirin and plavix. PT stable, will discuss with hospitalist Differential Diagnosis Differential Diagnosis: cva, hemorrhage Medical Records Medical records reviewed: Yes I reviewed the patient's medical records. Imaging Data Radiologic Study: Attestation: I personally reviewed and interpreted this imaging study as follows: Imaging: CT Scan Radiologist's impression: occluded left internal carotid artery Radiologic Study #2: Attestation: I personally reviewed and interpreted this imaging study as follows: Imaging: X-Ray Radiologist's impression: no acute findings Lab Data Lab results reviewed: Yes I reviewed the patient's lab results. ECG Data Attestation: I personally reviewed and interpreted this ECG (s) as follows: Prior ECG tracings: available for review Interpretation: sinus rhythm, rate of 76, pr 152, no stemi HPI General Mode of arrival: wheelchair. Date/Time Provider Initiated Documentation: 05/13/23 08:51. Limitations to Documentation: altered mental status. Information obtained by: family. History of Present Illness 73 year old M presents to the emergency department with the chief complaint of word finding problems, described as moderate, Patient started experiencing this week(s) (1) and it has been constant. No relieving factors improve symptom(s), No exacerbating factors reported . Patient notes denies fever/chills. Patient did receive the following treatments prior to arrival, none Related Data Home Medications Medication Instructions Recorded Confirmed methadone 10 mg/mL oral concentrate 225 mg PO DAILY 04/07/13 05/13/23 metformin 500 mg tablet,extended 500 mg PO BID 01/15/19 05/13/23 release 24 hr levothyroxine 137 mcg tablet 137 mcg PO DAILY 12/21/19 05/13/23 amlodipine 5 mg tablet 5 mg PO DAILY 03/09/22 05/13/23 ascorbic acid (vitamin C) 1,000 mg 1,000 mg PO DAILY 03/09/22 05/13/23 tablet (Vitamin C) carvedilol 12.5 mg tablet 12.5 mg PO DAILY 03/09/22 05/13/23 honey 80 % topical gel (MediHoney 1 applic topical DAILY PRN #44 mL 03/09/22 05/13/23 (honey)) zinc 50 mg tablet 50 mg PO DAILY 03/09/22 05/13/23 cholecalciferol (vitamin D3) 250 250 mcg PO DAILY 07/31/22 05/13/23 mcg (10,000 unit) capsule silver sulfadiazine 1 % topical 1 applic topical USEASDIRECTD 08/23/22 05/13/23 cream (Silvadene) albuterol sulfate 90 mcg/actuation 2 puff inhalation Q6H PRN 11/20/22 05/13/23 aerosol inhaler aspirin 81 mg tablet,delayed 81 mg PO DAILY 11/20/22 05/13/23 release blood sugar diagnostic (Blood 11/20/22 05/13/23 Glucose Test strips) blood-glucose meter 11/20/22 05/13/23 lancets 28 gauge 11/20/22 05/13/23 pen needle, diabetic 32 gauge x 11/20/22 05/13/23 (1st Tier Unifine Pentips) gabapentin 800 mg tablet 800 mg PO QID #360 tabs 12/04/22 05/13/23 insulin lispro 100 unit/mL 10 unit subcut DAILY 12/04/22 05/13/23 subcutaneous pen (Humalog KwikPen (U-100) Insulin) blood-glucose meter,continuous #1 ea 12/05/22 05/13/23 (Dexcom G6 Mask Design Engineer) blood-glucose sensor (Dexcom G6 #3 ea 12/05/22 05/13/23 Sensor device) blood-glucose transmitter (Dexcom #1 ea 12/05/22 05/13/23 G6 Transmitter device) insulin glargine 100 unit/mL (3 30 unit (0.3 mL) subcut QAM #15 mL 04/16/23 05/13/23 mL) subcutaneous pen (Lantus Solostar U-100 Insulin) insulin glargine 100 unit/mL (3 80 unit (0.8 mL) subcut QPM #15 mL 04/16/23 05/13/23 mL) subcutaneous pen (Lantus Solostar U-100 Insulin) clonazepam 1 mg tablet 1 mg PO DAILY PRN PRN anxiety #30 05/03/23 05/13/23 tabs Previous Rx's Medication Instructions Recorded honey 80 % topical gel (MediHoney 1 applic topical DAILY PRN #44 mL 03/09/22 (honey)) gabapentin 800 mg tablet 800 mg PO QID #360 tabs 12/04/22 blood-glucose meter,continuous #1 ea 12/05/22 (Dexcom G6 Mask Design Engineer) blood-glucose sensor (Dexcom G6 #3 ea 12/05/22 Sensor device) blood-glucose transmitter (Dexcom #1 ea 12/05/22 G6 Transmitter device) insulin glargine 100 unit/mL (3 30 unit (0.3 mL) subcut QAM #15 mL 04/16/23 mL) subcutaneous pen (Lantus Solostar U-100 Insulin) insulin glargine 100 unit/mL (3 80 unit (0.8 mL) subcut QPM #15 mL 04/16/23 mL) subcutaneous pen (Lantus Solostar U-100 Insulin) clonazepam 1 mg tablet 1 mg PO DAILY PRN PRN anxiety #30 05/03/23 tabs Allergies Allergy/AdvReac Type Severity Reaction Status Date / Time codeine AdvReac itching Verified 05/13/23 09:54 and bloutchy naloxone HCl [From Narcan] AdvReac IT Verified 05/13/23 09:54 INTERACTS WITH MY METHADONE pentazocine lactate AdvReac makes me Verified 05/13/23 09:54 [From Erica] deathly ill Narcotic AdvReac H/O drug Uncoded 05/13/23 09:54 abuse narcotic antagonists AdvReac withdrawls Uncoded 05/13/23 09:54 General Stated Complaint: CVA/TIA ANNE: 2 Review of Systems Unobtainable due to mental status 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) Osteomyelitis of second toe of left foot (Acute) Diabetic infection of right foot (Acute) Cellulitis of foot, right (Acute) Acute kidney injury (Acute) MRSA bacteremia (Acute) Osteomyelitis of toe of right foot (Acute) Foot infection (Acute) Cellulitis (Acute) Osteomyelitis due to type 2 diabetes mellitus (Acute) left great toe Hypothyroidism (Chronic) Osteomyelitis of great toe of left foot (Acute) Chronic ulcer of great toe (Acute) Amputation of toe of right foot (Acute) Hyperlipidemia (Acute) Ganglion cyst of finger of right hand (Acute) Onychomycosis (Acute) Erectile dysfunction (Acute) Chronic pain (Chronic) ADHD (Acute) Polyp of colon, adenomatous (Acute) Adenoma of right adrenal gland (Acute) Diverticulosis (Acute) Asthma (Chronic) Staphylococcus epidermidis bacteremia (Acute) Cognitive impairment (Acute) Acute cerebrovascular accident (CVA) (Acute) Medical History Anxiety Diabetes Disorder of tendon of right hand Hepatitis C History of amputation of great toe History of back pain Hyperglycemia Toe osteomyelitis, right Right great toe Surgical History History of appendectomy History of inguinal hernia repair History of liver biopsy (~01/2001) 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 DOS: 01/15/19 Family History Brother Heart disease Father Congestive heart failure Mother Congestive heart failure Social History Smoking/Tobacco Use Status: Current every day Tobacco Type: cigars Smoking risk assessment performed?: Yes Alcohol Intake: former Drug use: Current Sobriety Substance use type: former substance user Caregiver/Support person: No Communication Needs: Hard of Hearing and Corrective Lenses Pets and animals: Yes Pets and animals: cat(s) and dog(s) Sexually active: No Do you think of yourself as: straight/heterosexual Current gender identity: male What is your relationship status?: How often do you talk on the phone with friends or family?: three or more times per week How often do you get together with friends or relatives?: three or more times per week How often do you attend zoroastrian or mosque services?: decline to answer Do you belong to any clubs or organized social groups?: no Panel score (0-1 are the most socially isolated patients): 2 What type of physical activity do you participate in: none Frequency: does not exercise Richa/Caodaism: None Special richa needs: No Seatbelt use: always Helmet use: No Drive intox or ride w/intox 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 Do you feel safe at home: Yes Do you feel safe in your relationship?: Yes Exam Const Orientation: alert HENMT Head: normal to inspection Ears: external ears normal General nose exam: external nose normal Mouth: moist mucous membranes Eyes General: appearance normal, both eyes and all related structures Neck Neck: normal visual inspection Resp Auscultation: diminished lung sounds Cardio Rate: regular rate Neuro General: patient awake Cranial Nerves: PERRL Extrem General: no cyanosis Psych Mental Status: mental status grossly normal Course Vital Signs Vital signs: Vital Signs Temperature 37.0 C 05/13/23 08:54 Pulse 70 05/13/23 08:54 Respiratory Rate 18 05/13/23 08:54 Blood Pressure 206/65 H 05/13/23 08:54 Pulse Oximetry 98 05/13/23 08:54 Temperature 37.0 C 05/13/23 08:54 Temperature Source Temporal Artery Scan 05/13/23 08:54 Pulse 70 05/13/23 08:54 Respiratory Rate 18 05/13/23 08:54 Respiratory Effort Normal, Non-Labored 05/13/23 09:02 Blood Pressure 206/65 H 05/13/23 08:54 Blood Pressure Position Sitting 05/13/23 08:54 Pulse Oximetry 98 05/13/23 08:54 Oxygen Delivery Method Room Air 05/13/23 08:54 Oxygen Flow Rate 0 05/13/23 08:54
--- NOTE | 2023-05-13 09:07 | DI.RAD_ITS ---
Exam(s) XR PORTABLE CHEST AP EXAM: XR PORTABLE CHEST AP CLINICAL HISTORY: stroke TECHNIQUE: 2D digital imaging was performed. COMPARISON: CT CT CHEST PE CTA from 03/09/2022 FINDINGS: Lungs are suboptimally inflated. LUNGS: Clear. No pleural abnormality seen. HEART: Normal size. AORTA: Normal diameter. BONES: Unremarkable for age. Soft tissues: Unremarkable. IMPRESSION: No acute findings. DATA REPOSITORY: RADIATION DOSE DELIVERED:
[2023-05-13 09:37] LABS: Abs Immature Grans 0.04 10^3/uL (0.0-0.06); Absolute Basophil Count 0.07 10^3/uL (0.0-0.2); Absolute Eosinophil Count 0.02 10^3/uL (0.0-0.7); Absolute Lymphocyte Count 1.08 10^3/uL (1.2-3.4); Absolute Monocyte Count 0.37 10^3/uL (0.1-0.8); Absolute Neutrophil Count 8.69 10^3/uL (1.2-6.7); Basophils % 0.7; Eosinophils % 0.2; HCT 42.9 % (40.0-50.0); HGB 14.2 g/dL (13.5-17.5); Immature Grans % 0.4; Lymphocytes % 10.5; MCHC 33.1 % (32.0-36.0); MCV 85 fL (80-95); MPV 9.9 fL (8.0-11.0); Monocytes % 3.6; Neutrophils % 84.6; Platelet Count 324 10^3/uL (130-400); RBC 5.07 10^6/uL (4.36-5.78); RDW 14.2 % (11.8-14.1); RDW-SD 43.4 fL; WBC 10.27 10^3/uL (4.4-10.8)
[2023-05-13] MEDS: LORazepam 2 MG/ML VIAL 1 MG IVP (09:40)
[2023-05-13] MEDS: Normal Saline Flush 10 ML SYR IVP (09:43)
[2023-05-13 09:52] LABS: PTT Activated 33.3 sec (21.5-31.9); Prothrombin Time 10.6 sec (9.3-11.0)
[2023-05-13 10:05] LABS: ALT 29 U/L (16-63); AST 37 U/L (15-37); Albumin 2.9 g/dL (3.4-5.0); Alkaline Phosphatase 180 U/L (46-116); BUN 23 mg/dL (7-18); Bilirubin, Total 0.6 mg/dL (0.2-1.0); Calcium 8.9 mg/dL (8.5-10.1); Chloride 99 mmol/L (98-107); Estimated GFR 80.47 (mL/min/1.73m2); Glucose 222 mg/dL (74-106); Magnesium 1.7 mg/dL (1.8-2.4); Potassium 4.7 mmol/L (3.5-5.1); Sodium 135 mmol/L (136-145); TSH (W/Ref FT4) 2.03 uIU/mL (0.36-3.74); Total Protein 8.9 g/dL (6.4-8.2); Troponin I < 50 ng/L (<or=60)
[2023-05-13] MEDS: MAGNESIUM SULFATE 1 GM/100 ML BAG IVPB (10:19)
[2023-05-13 10:27] LABS: ETHANOL BLOOD < 3.0 mg/dL (<10)
[2023-05-13] MEDS: Omnipaque 350 MG/ML 100 ML BTL IJ (10:28)
[2023-05-13] MEDS: Normal Saline - Diluent 50 ML VIAL IJ (10:29)
[2023-05-13 10:49] LABS: Bilirubin Small (Negative); Blood Small (Negative); Clarity Clear (Clear); Glucose Negative (Negative); Ketones 40 mg/dL (Negative); Leukocyte Esterase Negative (Negative); Nitrite Negative (Negative); Specific Gravity 1.025 (1.005-1.025)
[2023-05-13 10:56] LABS: Bacteria Few HPF (Negative); C & S Indicated? No/Sq. Contamination; Casts 0-2 Hyaline LPF (Negative); Crystals Negative HPF (Negative); Epithelial Cells Few HPF (Negative); Mucus Moderate (Negative); WBC 0-2 HPF (0-5)
[2023-05-13 11:05] LABS: *AMPHETAMINES SCREEN URINE Negative (Negative); *BARBITURATES SCREEN URINE Negative (Negative); *BENZODIAZEPINES SCREEN URINE Negative (Negative); Cannabinoids THC Negative (Negative); Cocaine Screen,Urine Negative (Negative); METHADONE URINE SCREEN Positive (Negative); OPIATES URINE SCREEN Negative (Negative); Tricyclic Antidepressants Negative (Negative)
[2023-05-13] MEDS: Aspirin 325 MG TAB PO (12:02)
[2023-05-13] MEDS: Clopidogrel 75 MG TAB PO (12:03)
[2023-05-13] MEDS: ATORVASTATIN 80 MG TAB PO (12:07)
[2023-05-13 13:21] LABS: Troponin I < 50 ng/L (<or=60)
--- NOTE | 2023-05-13 14:56 | INITIAL_ITS ---
Date of service: 05/13/23 Time of Service: 14:56 Care Management Initial Assmt Initial Assessment REASON FOR HOSPITALIZATION:: CVA PREVIOUS FUNCTIONAL STATUS/SOCIAL/FAMILY SUPPORTS:: Robert lives in a mobile home on a large piece of property in [place], [place]. He has 2 children. His son Susie lives in a separate dwelling on his property and his daughter Alejandra lives closeby with her and 4 children. He identified that they are generally supportive. CURRENT FUNCTIONAL STATUS:: Robert was brought by his son Susie due to severe stroke symptoms; only able to say a few words at a time ADVANCE DIRECTIVES:: None on file. Has patient been provided with info about the portal/API?: No Did the patient sign up for the portal?: No CODE STATUS:: Full Code INSURANCE COVERAGE / FINANCIAL ISSUES:: Medicare. Medicaid CURRENT HOME/COMMUNITY SERVICES/EQUIPMENT:: Methadone; [place]. Robert uses a cane for ambulatory assistance but also owns a walker. PRIMARY CARE PHYSICIAN:: Galen Rivera POTENTIAL DISCHARGE NEEDS:: Evaluations for increased services, stroke work up. PATIENT/FAMILY EDUCATION NEEDS:: Review discharge instructions, discuss Ask Me Three. ANTICIPATED BARRIERS TO DISCHARGE:: None identified. TRANSPORTATION:: Dependent on disposition. PLAN:: Robert will have a work up of CVA to determine course of treatment, anticipate neuro consult as well as imaging and PT. CM continues to follow. 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) Osteomyelitis of second toe of left foot (Acute) Diabetic infection of right foot (Acute) Cellulitis of foot, right (Acute) Acute kidney injury (Acute) MRSA bacteremia (Acute) Osteomyelitis of toe of right foot (Acute) Foot infection (Acute) Cellulitis (Acute) Osteomyelitis due to type 2 diabetes mellitus (Acute) left great toe Hypothyroidism (Chronic) Osteomyelitis of great toe of left foot (Acute) Chronic ulcer of great toe (Acute) Amputation of toe of right foot (Acute) Hyperlipidemia (Acute) Ganglion cyst of finger of right hand (Acute) Onychomycosis (Acute) Erectile dysfunction (Acute) Chronic pain (Chronic) ADHD (Acute) Polyp of colon, adenomatous (Acute) Adenoma of right adrenal gland (Acute) Diverticulosis (Acute) Asthma (Chronic) Staphylococcus epidermidis bacteremia (Acute) Cognitive impairment (Acute) Acute cerebrovascular accident (CVA) (Acute) Medical History Anxiety Diabetes Disorder of tendon of right hand Hepatitis C History of amputation of great toe History of back pain Hyperglycemia Toe osteomyelitis, right Right great toe Surgical History History of appendectomy History of inguinal hernia repair History of liver biopsy (~01/2001) 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 DOS: 01/15/19 Family History Brother Heart disease Father Congestive heart failure Mother Congestive heart failure Social History Smoking/Tobacco Use Status: Current every day Tobacco Type: cigars Smoking risk assessment performed?: Yes Alcohol Intake: former Drug use: Current Sobriety Substance use type: former substance user Caregiver/Support person: No Communication Needs: Hard of Hearing and Corrective Lenses Pets and animals: Yes Pets and animals: cat(s) and dog(s) Sexually active: No Do you think of yourself as: straight/heterosexual Current gender identity: male What is your relationship status?: How often do you talk on the phone with friends or family?: three or more times per week How often do you get together with friends or relatives?: three or more times per week How often do you attend pentecostalism or roman catholic services?: decline to answer Do you belong to any clubs or organized social groups?: no Panel score (0-1 are the most socially isolated patients): 2 What type of physical activity do you participate in: none Frequency: does not exercise Richa/Catholic: None Special richa needs: No Seatbelt use: always Helmet use: No Drive intox or ride w/intox 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
--- NOTE | 2023-05-13 16:40 | W.PM.HP.N ---
Date of service: 05/13/23 Time of Service: 16:40 Assessment and Plan Assessment and plan (1) Substance abuse in remission: Status: Acute Assessment and plan: On chronic methadone dose up to 25 mg daily. We will continue this. 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 Hemoglobin A1c was 9.3% on 05/03/2023. We will continue on his basal dosing of Lantus with sliding scale coverage, resistant to insulin. Follow fingerstick blood sugars every 6 hours until taking p.o. (3) Acute cerebrovascular accident (CVA): Status: Acute Assessment and plan: Multiple infarcts affecting the right side. Likely secondary to the occlusion of the left carotid artery. Does not appear to be any immediate surgical intervention possible. We will continue with dual antiplatelet therapy and involve speech therapy, Occupational Therapy, physical therapy. We will check a lipid panel. History of Present Illness History of Present Illness Chief Complaint: Right sided weakness, aphasia Narrative: This is a 73-year-old man who has some word finding difficulties for over 1 week now according to his son. He was seen by his PCP who recommended he be evaluated in the emergency room. He declines that evaluation, per his son. This morning his son woke him up early to bring him to [place] to get his methadone. He was having trouble speaking and some trouble with ambulation. He appeared to be weak on his right side and have a right facial droop. Despite this they drove to [place] to the methadone clinic. The clinic worker evaluated him and declined to give him the methadone doses, they recommended he be evaluated in the emergency room. The patient declined to go to [facility], he [place] to go [place] [facility] he agreed to go to [facility]. In the emergency room he was found to have a right hemiplegia with a right facial droop. MRI showed a left carotid occlusion. Neurology at [facility] (Dr. savage) recommended dual antiplatelet therapy. He received aspirin and Plavix and was started on atorvastatin. He is also receiving his methadone dosing. Review of Systems Narrative: Patient denies any current chest pain or shortness of breath. He has not been having GI or problems. He is ambulatory but not stable on his feet because of the previous toe amputations. He was able to get in and out of the car with assistance of his son. He appears to have relatively good use of his right lower leg though poor use of his right arm. He is not able to speak in sentences. He does appear to be able to understand and express himself nonverbally. PFSH All Active Problems Hypertension (Chronic) Substance abuse in remission (Acute) Osteomyelitis of second toe of right foot (Acute) 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) Osteomyelitis of second toe of left foot (Acute) Diabetic infection of right foot (Acute) Cellulitis of foot, right (Acute) Acute kidney injury (Acute) MRSA bacteremia (Acute) Osteomyelitis of toe of right foot (Acute) Foot infection (Acute) Cellulitis (Acute) Osteomyelitis due to type 2 diabetes mellitus (Acute) left great toe Hypothyroidism (Chronic) Osteomyelitis of great toe of left foot (Acute) Chronic ulcer of great toe (Acute) Amputation of toe of right foot (Acute) Hyperlipidemia (Acute) Ganglion cyst of finger of right hand (Acute) Onychomycosis (Acute) Erectile dysfunction (Acute) Chronic pain (Chronic) ADHD (Acute) Polyp of colon, adenomatous (Acute) Adenoma of right adrenal gland (Acute) Diverticulosis (Acute) Asthma (Chronic) Staphylococcus epidermidis bacteremia (Acute) Cognitive impairment (Acute) Acute cerebrovascular accident (CVA) (Acute) Medical History Anxiety Diabetes Disorder of tendon of right hand Hepatitis C History of amputation of great toe History of back pain Hyperglycemia Toe osteomyelitis, right Right great toe Surgical History History of appendectomy History of inguinal hernia repair History of liver biopsy (~01/2001) 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 DOS: 01/15/19 Family History Brother Heart disease Father Congestive heart failure Mother Congestive heart failure Social History Smoking/Tobacco Use Status: Current every day Tobacco Type: cigars Smoking risk assessment performed?: Yes Alcohol Intake: former Drug use: Current Sobriety Substance use type: former substance user Caregiver/Support person: No Communication Needs: Hard of Hearing and Corrective Lenses Pets and animals: Yes Pets and animals: cat(s) and dog(s) Sexually active: No Do you think of yourself as: straight/heterosexual Current gender identity: male What is your relationship status?: How often do you talk on the phone with friends or family?: three or more times per week How often do you get together with friends or relatives?: three or more times per week How often do you attend latter-day or pentecostal services?: decline to answer Do you belong to any clubs or organized social groups?: no Panel score (0-1 are the most socially isolated patients): 2 What type of physical activity do you participate in: none Frequency: does not exercise Richa/Voodoo: None Special richa needs: No Seatbelt use: always Helmet use: No 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 Do you feel safe at home: Yes Do you feel safe in your relationship?: Yes Meds Allergies and Home Medications Allergies Allergy/AdvReac Type Severity Reaction Status Date / Time codeine AdvReac itching Verified 05/13/23 09:54 and bloutchy naloxone HCl [From Narcan] AdvReac IT Verified 05/13/23 09:54 INTERACTS WITH MY METHADONE pentazocine lactate AdvReac makes me Verified 05/13/23 09:54 [From Erica] deathly ill Narcotic AdvReac H/O drug Uncoded 05/13/23 09:54 abuse narcotic antagonists AdvReac withdrawls Uncoded 05/13/23 09:54 Home Medications Medication Instructions Recorded Confirmed Type methadone 10 mg/mL oral concentrate 225 mg PO DAILY 04/07/13 05/13/23 History metformin 500 mg tablet,extended 500 mg PO BID 01/15/19 05/13/23 History release 24 hr levothyroxine 137 mcg tablet 137 mcg PO DAILY 12/21/19 05/13/23 History amlodipine 5 mg tablet 5 mg PO DAILY 03/09/22 05/13/23 History ascorbic acid (vitamin C) 1,000 mg 1,000 mg PO DAILY 03/09/22 05/13/23 History tablet (Vitamin C) carvedilol 12.5 mg tablet 12.5 mg PO DAILY 03/09/22 05/13/23 History honey 80 % topical gel (MediHoney 1 applic topical DAILY PRN #44 mL 03/09/22 05/13/23 Rx (honey)) zinc 50 mg tablet 50 mg PO DAILY 03/09/22 05/13/23 History cholecalciferol (vitamin D3) 250 250 mcg PO DAILY 07/31/22 05/13/23 History mcg (10,000 unit) capsule silver sulfadiazine 1 % topical 1 applic topical USEASDIRECTD 08/23/22 05/13/23 History cream (Silvadene) albuterol sulfate 90 mcg/actuation 2 puff inhalation Q6H PRN 11/20/22 05/13/23 History aerosol inhaler aspirin 81 mg tablet,delayed 81 mg PO DAILY 11/20/22 05/13/23 History release blood sugar diagnostic (Blood 11/20/22 05/13/23 History Glucose Test strips) blood-glucose meter 11/20/22 05/13/23 History lancets 28 gauge 11/20/22 05/13/23 History pen needle, diabetic 32 gauge x 11/20/22 05/13/23 History (1st Tier Unifine Pentips) gabapentin 800 mg tablet 800 mg PO QID #360 tabs 12/04/22 05/13/23 Rx insulin lispro 100 unit/mL 10 unit subcut DAILY 12/04/22 05/13/23 History subcutaneous pen (Humalog KwikPen (U-100) Insulin) blood-glucose meter,continuous #1 ea 12/05/22 05/13/23 Rx (Dexcom G6 Tube Tester) blood-glucose sensor (Dexcom G6 #3 ea 12/05/22 05/13/23 Rx Sensor device) blood-glucose transmitter (Dexcom #1 ea 12/05/22 05/13/23 Rx G6 Transmitter device) insulin glargine 100 unit/mL (3 30 unit (0.3 mL) subcut QAM #15 mL 04/16/23 05/13/23 Rx mL) subcutaneous pen (Lantus Solostar U-100 Insulin) insulin glargine 100 unit/mL (3 80 unit (0.8 mL) subcut QPM #15 mL 04/16/23 05/13/23 Rx mL) subcutaneous pen (Lantus Solostar U-100 Insulin) clonazepam 1 mg tablet 1 mg PO DAILY PRN PRN anxiety #30 05/03/23 05/13/23 Rx tabs Exam Narrative Exam Narrative: On exam he is quite disheveled and unkempt. He has encrusted dirt on his hands and chest. It appears that he has not had any bathing him for quite some time. That said he is not malodorous. His hair is quite a mess. He does make eye contact. With his tongue extended it deviates sharply to the right. He is able to puff out his cheeks but with some difficulty. His speech is very molting and unintelligible. He is in no respiratory distress. His lungs to auscultation sound clear. His heart sounds are regular, no significant murmurs appreciated. His abdomen is overall flat soft and nontender to palpation. The lower extremities notable for absence of toes on the right foot. The left foot has some mild crusting in the posterior aspect. There is no redness or a sending lymphangitis. Neurologically he has essentially no use of his right arm. He cannot squeeze my hand. The right leg he is able to lift up off the bed flex and extend without too much difficulty the left side appears to have normal motion and strength. Excellent improvement intern strength. Speech is altered as noted. Pupils appear to be equal and extraocular movements are intact. Results Imaging Additional studies: CT Head W/O and W contrast: Ventricles and Extra axial spaces: Normal in size and morphology for the patient's age. Hemorrhage: None. Cerebral parenchyma: Old left-sided lacunar infarcts in the frontal white matter.? Old infarct peripheral high left frontal region.? Old infarct high left parietal region.? Midline shift: None. Brainstem/Cerebellum: Old small periphery left inferior cerebellar infarct. Calvarium: Normal. Visualized Paranasal sinuses/Mastoids: Clear. Soft Tissues: Unremarkable. Enhancement: Normal. CTA Brain W: Internal Carotid Arteries: Right: Patent and normal diameter. Left: Occluded. Middle Cerebral Arteries: Right:? No aneurysm, occlusion or significant stenosis. Left:? No aneurysm, occlusion or significant stenosis. Anterior Cerebral Arteries: Right:? No aneurysm, occlusion or significant stenosis. Left:? No aneurysm, occlusion or significant stenosis. Posterior cerebral Arteries: Right:? No aneurysm, occlusion or significant stenosis. Left:? No aneurysm, occlusion or significant stenosis. Vertebral Arteries: Right:? No aneurysm, occlusion or significant stenosis. Left:? No aneurysm, occlusion or significant stenosis. Basilar Artery:? No aneurysm, occlusion or significant stenosis. CTA Neck W: Common Carotid: Right:? No dissection, occlusion or significant stenosis. ? Heavy plaque at the common carotid bulb.? Mild stenosis. Left:? No dissection, occlusion or significant stenosis. Heavy plaque common carotid bulb. External Carotid: Right:? No dissection, occlusion or significant stenosis. Left:? No dissection, occlusion or significant stenosis. Internal Carotid: Right: Heavy plaque proximally causing mild stenosis..? No dissection or occlusion.? Left: Heavy plaque proximal internal carotid artery causing occlusion.? No flow is seen along the entire course of the left internal carotid artery to the intracranial portion. Vertebral Artery: Right:? No dissection, occlusion or significant stenosis. Left:? No dissection, occlusion or significant stenosis. Lung Apices: Normal. Bones: Degenerative changes.? No acute abnormality. Soft Tissues: Normal. IMPRESSION: 1. Normal CTA examination of the [place]. 2. 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 3. Occlusion of the left internal carotid artery secondary to heavy plaque at the origin.? Mild stenosis proximal right internal carotid artery secondary to heavy plaque.. Findings called to Dr. Forman of the emergency department. Labs 05/13/23 09:28 05/13/23 09:28 Labs: Laboratory Results - last 24 hr 05/13/23 05/13/23 05/13/23 09:28 09:28 09:28 WBC 10.27 RBC 5.07 Hgb 14.2 Hct 42.9 MCV 85 MCH 28.0 MCHC 33.1 RDW 14.2 H Plt Count 324 MPV 9.9 Immature Gran % 0.4 Neutrophils % 84.6 Lymphocytes % 10.5 Monocytes % 3.6 Eosinophils % 0.2 Basophils % 0.7 Nucleated RBC % 0.0 Absolute Neutrophils 8.69 H Absolute Lymphocytes 1.08 L Absolute Monocytes 0.37 Absolute Eosinophils 0.02 Absolute Basophils 0.07 PT 10.6 INR 1.0 APTT 33.3 H Sodium 135 L Potassium 4.7 Chloride 99 Carbon Dioxide 28.0 Anion Gap 8.0 BUN 23 H Creatinine 1.0 Est GFR (CKD-EPI 2020) 80.47 Glucose 222 H Calcium 8.9 Magnesium 1.7 L Total Bilirubin 0.6 AST 37 ALT 29 Alkaline Phosphatase 180 H Troponin I < 50 Total Protein 8.9 H Albumin 2.9 L TSH 2.03 Urine Color Urine Clarity Urine pH Ur Specific [place] Urine Protein Urine Ketones Urine Blood Urine Nitrite Urine Bilirubin Urine Urobilinogen Ur Leukocyte Esterase Urine RBC Urine WBC Ur Epithelial Cells Urine Crystals Urine Bacteria Urine Casts Urine Mucus Ur Culture Indicated? Urine Glucose Urine Opiates Screen Urine Methadone Screen Ur Barbiturates Screen Ur Tricyclics Screen Ur Amphetamines Screen U Benzodiazepines Scrn Urine Cocaine Screen Ur THC Screen Ethyl Alcohol < 3.0 05/13/23 05/13/23 05/13/23 10:38 10:38 12:40 WBC RBC Hgb Hct MCV MCH MCHC RDW Plt Count MPV Immature Gran % Neutrophils % Lymphocytes % Monocytes % Eosinophils % Basophils % Nucleated RBC % Absolute Neutrophils Absolute Lymphocytes Absolute Monocytes Absolute Eosinophils Absolute Basophils PT INR APTT Sodium Potassium Chloride Carbon Dioxide Anion Gap BUN Creatinine Est GFR (CKD-EPI 2020) Glucose Calcium Magnesium Total Bilirubin AST ALT Alkaline Phosphatase Troponin I < 50 Total Protein Albumin TSH Urine Color Yellow Urine Clarity Clear Urine pH 7.0 Ur Specific [place] 1.025 Urine Protein >=300 H Urine Ketones 40 H Urine Blood Small H Urine Nitrite Negative Urine Bilirubin Small H Urine Urobilinogen 1.0 H Ur Leukocyte Esterase Negative Urine RBC 5-10 H Urine WBC 0-2 Ur Epithelial Cells Few Urine Crystals Negative Urine Bacteria Few Urine Casts 0-2 Hyaline Urine Mucus Moderate Ur Culture Indicated? No/Sq. Contamination Urine Glucose Negative Urine Opiates Screen Negative Urine Methadone Screen Positive A Ur Barbiturates Screen Negative Ur Tricyclics Screen Negative Ur Amphetamines Screen Negative U Benzodiazepines Scrn Negative Urine Cocaine Screen Negative Ur THC Screen Negative Ethyl Alcohol Last Vital Signs Temp 36.5 C 05/13/23 15:06 Pulse 68 05/13/23 15:25 Resp 16 05/13/23 15:06 BP 166/74 H 05/13/23 15:06 Pulse Ox 96 05/13/23 15:06 H&P: Quality Stroke Onset of Symptoms Date: 05/06/23 Rehab Services Assessed: Activities of daily living assessment Time Spent Time spent with Patient: 40-54 minutes Time was spent: preparing to see the patient(eg.review tests), obtaining and/or reviewing separately otained hiistory, ordering medications,tests, procedures, referring, communicating with other health home care chaplain, indepentently interpreting results and counseling the patient
[2023-05-13] MEDS: Enoxaparin 40 MG/0.4 ML SYR SC (16:43)
--- NOTE | 2023-05-13 17:13 | NCONE_ITS ---
Date of service: 05/13/23 Time of Service: 17:13 Assessment and Plan Assessment and plan (1) Acute ischemic stroke: Status: Acute (2) Left carotid artery occlusion: Status: Acute Assessment and plan: #1. Left fckzfc-[id number]-[id number] ischemic stroke manifested by global aphasia, right face and dense right arm weakness, dysarthria, suspected dysphagia, and apparent R homonymous hemianopsia. 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 Work-up: -MRI brain w/o to asses extent of stroke -Lipid panel Medications: -aspirin 81mg + clopidogrel 75mg daily for secondary stroke prevention x90 days, then clopidgorel 75mg daily alone thereafter -atrovastatin 80mg daily for secondary stroke prevention - ok to titrate at d/c for goal LDL <70 Other: -Allow permissive hypertension -Physical therapy for leg weakness, gait training -Occupation therapy for upper extremity weakness, activities of daily living -Speech therapy for speech and swallow -?Wound care History of Present Illness History of Present Illness Chief Complaint: stroke Narrative: Handedness: unknown. HPI: Mr. Caballero is a 73 year-old with hypertension, DM2 - poorly controlled s/p multiple toe amputations with chronic wounds of the LE and prior osteomyelitis, asthma, hypothyroidism, opioid dependence on methadone, Hep C, ADHD, and anxiety. Mr. Caballero was alone in his room and not able to provide a history. History taken from the medical record. Mr. Caballero was brought to the [facility] ER earlier today by his son for several days (? up to 1 week) of weakness, imbalance, and reduced speech output found to have a R hemiparesis with global aphasia. BP upon arrival was 206/65. NIHSS 14. He was not a candidate for tpa as he is outside of the time window. He is on aspirin 81mg daily at home and has since been started on DAPT s/p 300mg clopidogrel load. He has undergone the work-up as below. Work-up: -CTH (05/13/23): extensive L frontal/temporal/parietal hypodensity that tracks vertically concerning for subacute stroke. I reviewed these images personally and this is my personal interpretation. -CTA head/neck (05/13/23): L ICA occlusion at the bifurcation. Complicated R ICA plaque with ?mild R ICA stenosis. I reviewed these images personally and this is my personal interpretation. -Labs (05/13/23): Na 135, glucose 222, trop x2 neg, TSH 2.03 -Labs (05/03/23): A1c 9.3 Review of Systems Unobtainable due to mental condition PFSH All Active Problems (Updated 05/13/23 @ 21:32 by Mirela Rodriguez MD) Left carotid artery occlusion (Acute) Acute ischemic stroke (Acute) Hypertension (Chronic) Substance abuse in remission (Acute) Osteomyelitis of second toe of right foot (Acute) 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) Osteomyelitis of second toe of left foot (Acute) Diabetic infection of right foot (Acute) Cellulitis of foot, right (Acute) Acute kidney injury (Acute) MRSA bacteremia (Acute) Osteomyelitis of toe of right foot (Acute) Foot infection (Acute) Cellulitis (Acute) Osteomyelitis due to type 2 diabetes mellitus (Acute) left great toe Hypothyroidism (Chronic) Osteomyelitis of great toe of left foot (Acute) Chronic ulcer of great toe (Acute) Amputation of toe of right foot (Acute) Hyperlipidemia (Acute) Ganglion cyst of finger of right hand (Acute) Onychomycosis (Acute) Erectile dysfunction (Acute) Chronic pain (Chronic) ADHD (Acute) Polyp of colon, adenomatous (Acute) Adenoma of right adrenal gland (Acute) Diverticulosis (Acute) Asthma (Chronic) Staphylococcus epidermidis bacteremia (Acute) Cognitive impairment (Acute) Acute cerebrovascular accident (CVA) (Acute) Medical History Anxiety Diabetes Disorder of tendon of right hand Hepatitis C History of amputation of great toe History of back pain Hyperglycemia Toe osteomyelitis, right Right great toe Surgical History History of appendectomy History of inguinal hernia repair History of liver biopsy (~01/2001) 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 DOS: 01/15/19 Family History Brother Heart disease Father Congestive heart failure Mother Congestive heart failure Social History Smoking/Tobacco Use Status: Current every day Tobacco Type: cigars Smoking risk assessment performed?: Yes Alcohol Intake: former Drug use: Current Sobriety Substance use type: former substance user Caregiver/Support person: No Communication Needs: Hard of Hearing and Corrective Lenses Pets and animals: Yes Pets and animals: cat(s) and dog(s) Sexually active: No Do you think of yourself as: straight/heterosexual Current gender identity: male What is your relationship status?: How often do you talk on the phone with friends or family?: three or more times per week How often do you get together with friends or relatives?: three or more times per week How often do you attend hinduism or judaism services?: decline to answer Do you belong to any clubs or organized social groups?: no Panel score (0-1 are the most socially isolated patients): 2 What type of physical activity do you participate in: none Frequency: does not exercise Richa/Lutheran: None Special richa needs: No Seatbelt use: always Helmet use: No Drive intox or ride w/intox caterpillar driver: No Do you feel safe at home: Yes Do you feel safe in your relationship?: Yes Visit Medication and Allergies Active Medications Generic Name Dose Route Start Last Admin Trade Name Freq PRN Reason Stop Dose Admin Acetaminophen 0 mg 05/13/23 12:08 Acetaminophen 325 Mg Tab PO Q4H PRN PRN Albuterol Sulfate 2 puff 05/13/23 14:17 Albuterol Hfa 8 Gm 60 Puff Inh IH Q6H PRN Amlodipine Besylate 5 mg 05/14/23 08:30 Amlodipine 5 Mg Tab PO DAILY [facility] Aspirin 81 mg 05/14/23 08:30 Aspirin E.C. 81 Mg Tabec PO DAILY [facility] Carvedilol 12.5 mg 05/14/23 08:30 Carvedilol 12.5 Mg Tab PO DAILY [facility] Clonazepam 1 mg 05/13/23 14:17 Clonazepam 1 Mg Tab PO DAILY PRN PRN anxiety Clopidogrel Bisulfate 75 mg 05/14/23 08:30 Clopidogrel 75 Mg Tab PO DAILY [facility] Device 1 each 05/13/23 15:00 Inhaler, Assist Device MC DIRECTED [facility] Dextrose 0 gm 05/13/23 14:05 Glucose Oral Gel 15 Gm/37.5 Gm Tube PO DIRECTED PRN Dextrose/Water 0 gm 05/13/23 14:05 Dextrose 50%-Water 25 Gm/50 Ml Syr IVP DIRECTED PRN Dimethicone/Zinc Oxide 0 gm 05/13/23 12:03 Yesi Protect Cream 142 Gm Tube TP PRN PRN Docusate Sodium 100 mg 05/13/23 12:08 Docusate Sodium 100 Mg Cap PO TID PRN PRN Enoxaparin Sodium 40 mg 05/13/23 16:00 05/13/23 16:43 Enoxaparin 40 Mg/0.4 Ml Syr SC 40 mg Q24H [facility] Administration Gabapentin 800 mg 05/13/23 16:00 Gabapentin 800 Mg Tab PO QID [facility] Ringer's Solution 1,000 mls @ 75 mls/hr 05/13/23 12:15 IV INFUSION [facility] IV Miscellaneous Supplies 1 each 05/13/23 09:00 Iv Access IV DIRECTED [facility] Insulin Aspart 0 units 05/13/23 17:00 Insulin Aspart 300 Units/3 Ml Pen SC 0800,1200,1700 [facility] Protocol Insulin Glargine 80 units 05/13/23 20:00 Insulin Glargine 300 Units/3 Ml Pen SC QPM [facility] Insulin Glargine 30 units 05/14/23 08:30 Insulin Glargine 300 Units/3 Ml Pen SC QAM [facility] Iohexol 100 ml 05/13/23 10:30 05/13/23 10:28 Omnipaque 350 Mg/Ml 100 Ml Btl IJ 06/12/23 23:59 85 ml DIRECTED [facility] Administration Levothyroxine Sodium 137 mcg 05/14/23 08:30 Levothyroxine 137 Mcg Tab PO DAILY [facility] Magnesium Hydroxide 30 ml 05/13/23 12:08 Milk Of Magnesia 30 Ml Cup PO DAILY PRN PRN Metformin HCl 500 mg 05/13/23 20:00 Metformin C.R. 500 Mg Tabcr PO BID [facility] Methadone HCl 225 mg 05/13/23 14:25 Methadone Liquid 10 Mg/Ml PO DAILY [facility] Polyethylene Glycol 17 gm 05/13/23 12:08 Polyethylene Glycol 3350 17 Gm Packet PO DAILY PRN PRN Constipation Sodium Chloride 0 ml 05/13/23 08:59 05/13/23 09:43 Normal Saline Flush 10 Ml Syr IVP 20 ml PRN PRN Administration Sodium Chloride 50 ml 05/13/23 10:30 05/13/23 10:29 Normal Saline - Diluent 50 Ml Vial IJ 50 ml .FOR DI USE [facility] Administration Allergies codeine Adverse Reaction (Verified 05/13/23 09:54) itching and bloutchy naloxone HCl [From Narcan] Adverse Reaction (Verified 05/13/23 09:54) IT INTERACTS WITH MY METHADONE pentazocine lactate [From Talwin] Adverse Reaction (Verified 05/13/23 09:54) makes me deathly ill Narcotic Adverse Reaction (Uncoded 05/13/23 09:54) H/O drug abuse narcotic antagonists Adverse Reaction (Uncoded 05/13/23 09:54) withdrawls Exam Narrative Exam Narrative: Physical Exam: Gen: Patient of apparent stated age, NAD Head and face: no facial or cranial abnormalities Neck: Supple, no meningismus, no occipital tenderness CV: + S1, S2, RRR, no murmur Resp: CTA B/L Abd: soft, nontender, nondistended Ext: No edema. No clubbing or cyanosis. amputation of all toes on the right and the L great toe. Ulceration on bottom of L foot. Further bandaging on L foot was not removed by me. Neuro Exam: Language: severe dysfluency; unable to name or repeat; able to follow simple commands only intermittently; c/w severe global aphasia Mental Status: awake and alert Speech: mild-moderate dysarthria Cranial nerves: CN II: he appears to have a R homonymous hemianopsia CN III, IV, : extraocular movements intact, no nystagmus, pupils symmetric and reactive to light CN V: face sensation with PP tested with no clear response from patient CN VII: mild R lower facial asymmetry noted with movement CN VIII: hearing intact bilaterally CN IX, X: unable to test due to his aphasia CN XI: unable to test due to his aphasia CN XII: unable to test due to his aphasia Sensory: PP tested with no clear response from patient due to his aphasia Motor: bulk and tone intact. Formal strength testing complicated by aphasia and inability to follow commands. No movement of the R arm. R leg strength seems symmetric with the L. Reflexes: hyporeflexic throughout; he has no great toes Coordination: no ataxia Gait: not tested Results Last Vital Signs Temp 97.7 F 05/13/23 15:06 Pulse 68 05/13/23 15:25 Resp 16 05/13/23 15:06 BP 166/74 H 05/13/23 15:06 Pulse Ox 96 06/19/23 15:06 Labs 05/13/23 09:28 05/13/23 09:28 Labs: Laboratory Results - last 24 hr 05/13/23 05/13/23 05/13/23 09:28 09:28 09:28 WBC 10.27 RBC 5.07 Hgb 14.2 Hct 42.9 MCV 85 MCH 28.0 MCHC 33.1 RDW 14.2 H Plt Count 324 MPV 9.9 Immature Gran % 0.4 Neutrophils % 84.6 Lymphocytes % 10.5 Monocytes % 3.6 Eosinophils % 0.2 Basophils % 0.7 Nucleated RBC % 0.0 Absolute Neutrophils 8.69 H Absolute Lymphocytes 1.08 L Absolute Monocytes 0.37 Absolute Eosinophils 0.02 Absolute Basophils 0.07 PT 10.6 INR 1.0 APTT 33.3 H Sodium 135 L Potassium 4.7 Chloride 99 Carbon Dioxide 28.0 Anion Gap 8.0 BUN 23 H Creatinine 1.0 Est GFR (CKD-EPI 2020) 80.47 Glucose 222 H Calcium 8.9 Magnesium 1.7 L Total Bilirubin 0.6 AST 37 ALT 29 Alkaline Phosphatase 180 H Troponin I < 50 Total Protein 8.9 H Albumin 2.9 L TSH 2.03 Urine Color Urine Clarity Urine pH Ur Specific [place] Urine Protein Urine Ketones Urine Blood Urine Nitrite Urine Bilirubin Urine Urobilinogen Ur Leukocyte Esterase Urine RBC Urine WBC Ur Epithelial Cells Urine Crystals Urine Bacteria Urine Casts Urine Mucus Ur Culture Indicated? Urine Glucose Urine Opiates Screen Urine Methadone Screen Ur Barbiturates Screen Ur Tricyclics Screen Ur Amphetamines Screen U Benzodiazepines Scrn Urine Cocaine Screen Ur THC Screen Ethyl Alcohol < 3.0 05/13/23 05/13/23 05/13/23 10:38 10:38 12:40 WBC RBC Hgb Hct MCV MCH MCHC RDW Plt Count MPV Immature Gran % Neutrophils % Lymphocytes % Monocytes % Eosinophils % Basophils % Nucleated RBC % Absolute Neutrophils Absolute Lymphocytes Absolute Monocytes Absolute Eosinophils Absolute Basophils PT INR APTT Sodium Potassium Chloride Carbon Dioxide Anion Gap BUN Creatinine Est GFR (CKD-EPI 2020) Glucose Calcium Magnesium Total Bilirubin AST ALT Alkaline Phosphatase Troponin I < 50 Total Protein Albumin TSH Urine Color Yellow Urine Clarity Clear Urine pH 7.0 Ur Specific [place] 1.025 Urine Protein >=300 H Urine Ketones 40 H Urine Blood Small H Urine Nitrite Negative Urine Bilirubin Small H Urine Urobilinogen 1.0 H Ur Leukocyte Esterase Negative Urine RBC 5-10 H Urine WBC 0-2 Ur Epithelial Cells Few Urine Crystals Negative Urine Bacteria Few Urine Casts 0-2 Hyaline Urine Mucus Moderate Ur Culture Indicated? No/Sq. Contamination Urine Glucose Negative Urine Opiates Screen Negative Urine Methadone Screen Positive A Ur Barbiturates Screen Negative Ur Tricyclics Screen Negative Ur Amphetamines Screen Negative U Benzodiazepines Scrn Negative Urine Cocaine Screen Negative Ur THC Screen Negative Ethyl Alcohol
[2023-05-13] MEDS: Insulin Aspart 300 UNITS/3 ML PEN SC (17:34)
[2023-05-13] MEDS: Methadone Liquid 10 MG/ML 225 MG PO (17:34)
[2023-05-13] MEDS: Gabapentin 800 MG TAB PO ×2 (17:35→20:37)
--- NOTE | 2023-05-13 18:43 | W.SPSTE ---
Date of service: 05/13/23 Time of Service: 18:43 Subjective Clinical (Bedside) Swallow Evaluation Speech Language Pathology Patient referred for Clinical Swallow Evaluation and Cognitive/Communication Evaluation from Dr Parra given new L CVA with aphasia and difficulty swallowing. Precautions: Fall, Standard, Full Code SUBJECTIVE: Patient received alert/awake, agreeable to evaluation, unable to communicate wants/needs effectively; unable to demonstrate comprehension of recommendations for safe p.o. intake upon discharge once deemed medically stable.? Patient was seen at bedside, repositioned for PO trials. At start of evaluation diet order was clear liquids, DIGITAL IMAGING TECHNICIAN confirming with MD that it was ok to provide additional PO trials. ? HPI: Pt is a 73 year old M admitted with word-finding difficulties and aphasia for 1 week, presented to methadone clinic also with R sided weakness and advised to ED evaluation. Found to have L CVA. Predisposing dysphagia risk factors: DM2, cognitive impairment Clinical signs of possible chronic dysphagia: n/a Precipitating dysphagia risk factors / triggering event: CVA ? IMPRESSIONS & PLAN: Suspect patient with oral-pharyngeal dysphagia secondary to CVA. His swallow is minimally palpable (thyroid cartilage is not prominent) but sublingual activation is evident, though delayed and sluggish. He demonstrates s/sx aspiration (cough, running nose) with thin liquids, which improves when given mildly thick liquids. Given difficulty noted with mastication, he would benefit from modified solids to minimize choking risk. Cranial nerve evaluation is difficult given poor comprehension, but does appear with flattened R nasolabial fold and mild R>L labial and lingual weakness. Minimal cognitive-communication evaluation, patient will benefit from further cognitive-communication assessment. Further DIGITAL IMAGING TECHNICIAN services: Warranted Inpatient / patient to be followed while on unit Home health upon VS halfway upon discharge ? Instrumentation: VFSS while on unit (would be Saturday) if possible, or as outpatient. ? ? PROVIDER RECOMMENDATIONS Suggested referrals:? DIGITAL IMAGING TECHNICIAN Home Health Diet Texture Modification(s): IDDSI Level(s) SOLIDS 5-Minced & Moist Solids 2-Mildly Thick Liquids [place] Protocol: Unthickened WATER (no juice, coffee, etc) only may be provided between/outside of meals, as long as diligent oral care has been completed as recommended below. Medication Intake: Crushed, if able, in Pudding or applesauce. Alter medications only as advised by MD or Pharmacist RISK MANAGEMENT: HOB upright as tolerated; upright for all PO intake. Encourage physical mobility as tolerated. Oral hygiene before/after PO intake, using friction with toothbrush on all oral structures as tolerated ? Level of Assistance/Supervision: 1:1 close supervision / assist for all PO intake PO intake only when awake/alert? Strategies/Adaptations/Assistive Equipment: Reduce auditory and/or visual distractions when eating Provide verbal and/or visual cues to use recommended strategies Small sips one at a time (straws ok if RN/WELDER APPRENTICE able to control sip size) Small bites Slow rate of intake Swallow between bites Posture/Positioning Needs: Maintain upright position at least 30 minutes after meals Avoid meals/snacks 2-3 hours prior to reclining/sleeping Sleep with head of bed elevated to reduce likelihood of nocturnal reflux PFSH All Active Problems?(Updated 05/13/23 @ 11:50 by Ankit Forman MD) Hypertension (Chronic) Substance abuse in remission (Acute) Osteomyelitis of second toe of right foot (Acute) 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) Osteomyelitis of second toe of left foot (Acute) Diabetic infection of right foot (Acute) Cellulitis of foot, right (Acute) Acute kidney injury (Acute) MRSA bacteremia (Acute) Osteomyelitis of toe of right foot (Acute) Foot infection (Acute) Cellulitis (Acute) Osteomyelitis due to type 2 diabetes mellitus (Acute) left great toeHypothyroidism (Chronic) Osteomyelitis of great toe of left foot (Acute) Chronic ulcer of great toe (Acute) Amputation of toe of right foot (Acute) Hyperlipidemia (Acute) Ganglion cyst of finger of right hand (Acute) Onychomycosis (Acute) Erectile dysfunction (Acute) Chronic pain (Chronic) ADHD (Acute) Polyp of colon, adenomatous (Acute) Adenoma of right adrenal gland (Acute) Diverticulosis (Acute) Asthma (Chronic) Staphylococcus epidermidis bacteremia (Acute) Cognitive impairment (Acute) Acute cerebrovascular accident (CVA) (Acute) Medical History? Anxiety Diabetes Disorder of tendon of right hand Hepatitis C History of amputation of great toe History of back pain Hyperglycemia Toe osteomyelitis, right Right great toe Surgical History? 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 Dentition ? Edentulous ? Dentures ? Top only ? Oral Mucosa ? Dry Fair oral care ? CN V - Trigeminal ? Unable to test sensation due to communication ? Jaw Movement ? WFL ? CN VII ? Labial/Facial ? Impaired strength (R>L) ? CN IX ? Palate - WFL ? CN X ? Laryngeal ? Vocal quality ? WFL ? But with minimal verbalizations ? Volitional cough ? Weak ? CN XII ? Lingual ? Mildly impaired R ROM ? Impaired R strength ? Volitional Swallow ? Suspect reduced laryngeal elevation ? Suspect delayed onset of swallow ? [place] Swallow Protocol Results ? FAIL Overt signs of aspiration during or immediately after completion. ? Food items tested: ?? Ice: IDDSI 0: IDDSI 2: IDDSI 4: IDDSI 7: Pill/tablet: crushed in pudding Oral phase: Leakage from mouth Residue (solid>puree) Difficulty with mastication Pharyngeal phase: Delayed swallow initiation Reduced hyolaryngeal elevation/excursion Cough after swallow Provided education to: Patient, Nursing Topics Addressed: anatomy/physiology of swallowing mechanism, overt s/sx to monitor for re: potential aspiration of food / liquids, recommendations for improved oral care, relationship between respiratory function changes and deglutition, Rationale for recommendations as outlined below Outcome: Verbalized/demonstrated understanding (nurses) Needs reinforcement (patient) Written recommendations left in patient's room Goals: Patient will tolerate safest/least restrictive diet without s/sx aspiration. Patient/caregiver will be independent with aspiration precautions, diet modifications, and safe swallowing strategies. DIGITAL IMAGING TECHNICIAN CPT Code: 54174 Clinical Swallowing Evaluation Time spent: 30 minutes Coding Diagnoses CPT Codes EVALUATE SWALLOWING FUNCTION - [id number] ([id number])
[2023-05-13] MEDS: metFORMIN C.R. 500 MG TABCR PO (20:36)
[2023-05-13] MEDS: Insulin Glargine 300 UNITS/3 ML PEN 80 UNITS SC (20:37)
[2023-05-13] MEDS: Lactated Ringers 1,000 ML 75 ML IV (21:06)
[2023-05-14] VITALS (9 sets, daily range): BP systolic 121–176; BP diastolic 67–77; PULSE 64–84; RESP 16–18; TEMP 35.7–37; O2SAT 94–97
--- NOTE | 2023-05-14 | DI.MRI_ITS ---
Exam(s) MR BRAIN WO EXAM: MR BRAIN WO CLINICAL HISTORY: acute CVA TECHNIQUE: Multiplanar multisequence MRI of the brain was performed. COMPARISON: CT CT HEAD CERV SPINE FACIAL WO from 01/22/[address] BRAIN NECK CTA from 05/13/2023 FINDINGS: VENTRICLES AND EXTRA AXIAL SPACES: Normal in size and morphology for the patient's age. MIDLINE SHIFT: None. CEREBRAL PARENCHYMA: There are multiple areas of restricted diffusion seen. There is restricted diff usion seen in the left cerebellum and the left parietal lobe consistent with acute infarcts. No spac e-occupying lesion identified. There are multiple areas of hyperintense signal in the white matter co nsistent with small vessel ischemic disease. There is an area of encephalomalacia involving left pos terior parietal region. HEMORRHAGE: There are several foci of hypointense signal seen on the gradient images suggesting prior hemorrhage. BRAINSTEM/CEREBELLUM: Normal. CALVARIUM: Normal. VISUALIZED PARANASAL SINUSES/MASTOIDS:Clear. [place]: Normal flow void. [place]: Unremarkable. OTHER FINDINGS: None. IMPRESSION: 1. Acute infarcts involving the left cerebellum and left parietal lobe. 2. Cerebral atrophy and small vessel ischemic disease. 3. Area of encephalomalacia involving the left posterior parietal lobe. DATA REPOSITORY:
[2023-05-14 07:15] LABS: Abs Immature Grans 0.02 10^3/uL (0.0-0.06); Absolute Basophil Count 0.07 10^3/uL (0.0-0.2); Absolute Eosinophil Count 0.34 10^3/uL (0.0-0.7); Absolute Lymphocyte Count 1.75 10^3/uL (1.2-3.4); Absolute Monocyte Count 0.75 10^3/uL (0.1-0.8); Absolute Neutrophil Count 3.95 10^3/uL (1.2-6.7); Eosinophils % 4.9; HCT 37.4 % (40.0-50.0); HGB 12.1 g/dL (13.5-17.5); Immature Grans % 0.3; Lymphocytes % 25.4; MCH 27.9 pg (27.0-33.0); MCHC 32.4 % (32.0-36.0); MCV 86 fL (80-95); MPV 10.3 fL (8.0-11.0); Monocytes % 10.9; Neutrophils % 57.5; Platelet Count 271 10^3/uL (130-400); RBC 4.34 10^6/uL (4.36-5.78); RDW 14.4 % (11.8-14.1); RDW-SD 45.7 fL; WBC 6.88 10^3/uL (4.4-10.8)
[2023-05-14 07:24] LABS: BUN 26 mg/dL (7-18); Calcium 8.4 mg/dL (8.5-10.1); Calculated LDL 106 mg/dL (<100); Chloride 104 mmol/L (98-107); Cholesterol 165 mg/dL (<200); Estimated GFR 80.47 (mL/min/1.73m2); Glucose 127 mg/dL (74-106); HDL Cholesterol 28 mg/dL (40-60); Potassium 3.7 mmol/L (3.5-5.1); Sodium 142 mmol/L (136-145); Triglyceride 155 mg/dL (<150)
[2023-05-14] MEDS: Gabapentin 800 MG TAB PO ×4 (08:22→20:12)
[2023-05-14] MEDS: Carvedilol 12.5 MG TAB PO (08:22)
[2023-05-14] MEDS: amLODIPine 5 MG TAB PO (08:22)
[2023-05-14] MEDS: Aspirin E.C. 81 MG TABEC PO (08:22)
[2023-05-14] MEDS: Clopidogrel 75 MG TAB PO (08:23)
[2023-05-14] MEDS: metFORMIN C.R. 500 MG TABCR PO ×2 (08:23→20:12)
[2023-05-14] MEDS: Insulin Glargine 300 UNITS/3 ML PEN 30 UNITS SC (08:24)
[2023-05-14] MEDS: Methadone Liquid 10 MG/ML 225 MG PO (08:55)
[2023-05-14] MEDS: Lactated Ringers 1,000 ML 75 ML IV (08:55)
[2023-05-14] MEDS: MAGNESIUM SULFATE 2 GM/50 ML BAG IVPB (09:39)
[2023-05-14] MEDS: Insulin Aspart 300 UNITS/3 ML PEN SC (11:43)
--- NOTE | 2023-05-14 12:34 | PT.INIE ---
Date of service: 05/14/23 Time of Service: 10:28 PT Notes Visit Reasons: Cerebrovascular accident Physical Therapy Inpatient Initial Evaluation Date: 05/14/2023 Referring Doctor: Ankit Parra MD PT Orders: PT CONSULT: Fall safety assessment. New CVA. Precautions: Fall. Standard. Activity as tolerated. Use post-op shoes when OOB. Patient Profile/Admitting Diagnosis: Darwin is a 73-year-old male admitted to the ED on 05/13/2023 due to word finding difficulty and inability to communicate as well as right facial and right arm weakness. Patient is admitted to [facility] for management of left frontotemporal parietal ischemic CVA, substance abuse in remission, and uncontrolled type 2 diabetes mellitus. PMHX: All Active Problems? Hypertension (Chronic) Substance abuse in remission (Acute) Osteomyelitis of second toe of right foot (Acute) 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) Osteomyelitis of second toe of left foot (Acute) Diabetic infection of right foot (Acute) Cellulitis of foot, right (Acute) Acute kidney injury (Acute) MRSA bacteremia (Acute) Osteomyelitis of toe of right foot (Acute) Foot infection (Acute) Cellulitis (Acute) Osteomyelitis due to type 2 diabetes mellitus (Acute) left great toeHypothyroidism (Chronic) Osteomyelitis of great toe of left foot (Acute) Chronic ulcer of great toe (Acute) Amputation of toe of right foot (Acute) Hyperlipidemia (Acute) Ganglion cyst of finger of right hand (Acute) Onychomycosis (Acute) Erectile dysfunction (Acute) Chronic pain (Chronic) ADHD (Acute) Polyp of colon, adenomatous (Acute) Adenoma of right adrenal gland (Acute) Diverticulosis (Acute) Asthma (Chronic) Staphylococcus epidermidis bacteremia (Acute) Cognitive impairment (Acute) Acute cerebrovascular accident (CVA) (Acute) Medical History? Anxiety Diabetes Disorder of tendon of right hand Hepatitis C History of amputation of great toe History of back pain Hyperglycemia Toe osteomyelitis, right Right great toe Surgical History? History of appendectomy History of inguinal hernia repair History of liver biopsy (~01/2001) 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 DOS: 01/15/19 Social History/Home Situation: Unsure of reliability of patient report at this time. Per RONDA Ramires's note: Robert lives in a mobile home on a large piece of property in [place], [place]. He has 2 children. His son Susei lives in a separate dwelling on his property and his daughter Alejandra lives closeby with her and 4 children. He identified that they are generally supportive. Equipment Owned/DME: Patient states that he did not use a walker at home Subjective: Agreeable to getting out of bed. Appeared tired after based ambulation activity. Objective: General Observation: Resting in bed. Telemetry monitoring in place. IV access through right brachium. Digits 1 through 5 amputation on the right, digit 1 amputation on the left. Mental Status: Alert and oriented as to person and place. Able to follow single step commands. able to understand commands but responses were with incomplete sentences. Pain: None reported Vital Signs: Closely monitored via telemetry ROM: Right Upper Extremity: Shoulder Flexion WFL. Shoulder abduction WFL. Elbow flexion WFL. Wrist flexion WFL. Functional opening and closing of hand WFL. Left Upper Extremity: Shoulder Flexion WFL. Shoulder abduction WFL. Elbow flexion WFL. Wrist flexion WFL. Functional opening and closing of hand WFL. Right Lower Extremity: Hip flexion WFL. Hip abduction WFL. Knee flexion WFL. Ankle dorsiflexion to neutral only. Ankle plantarflexion WFL. Left Lower Extremity: Hip flexion WFL. Hip abduction WFL. Knee flexion WFL. Ankle dorsiflexion WFL. Ankle plantarflexion WFL. Strength: Right Upper Extremity: Shoulder flexors 3+/5. Shoulder abductors 3+/5. Elbow flexors 4-/5. Elbow extensors 4-/5. Cardiovascular Disease Specialist weak/impaired. Left Upper Extremity: Shoulder flexors 4/5. Shoulder abductors 4/5. Elbow flexors 4/5. Elbow extensors 4/5. Cardiovascular Disease Specialist strong. Right Lower Extremity: Hip flexors 4-/5. Hip abductors 4-/5. Knee flexors 4-/5. Knee extensors 4-/5. Ankle dorsiflexors 3+/5. Ankle plantarflexors 3+/5. Left Lower Extremity: Hip flexors 4/5. Hip abductors 4/5. Knee flexors 4/5. Knee extensors 4/5. Ankle dorsiflexors 4/5. Ankle plantarflexors 4/5. Bed Mobility/Transfers: Supine to sit stand by assist Sit to stand contact guard assist of 2, cues provided for hand placement Stand to sit contact guard assist of 2, cues provided for hand placement Bed to reclining chair contact guard assist of 2, cues provided for hand placement Gait: Instructed patient with level surface ambulation of 100 feet requiring minimal assist and contact guard assist of another for walker management, ARABELLA Cerda asked to provide wheelchair follow for safety. R cmm inspector weaker requiring minimal assistance of caregiver to R hand to prevent downward slippage. Rita decreased. Hemiplegic gait. tends to walk fast and hit the R back leg of walker with R foot. Moderate cues were provide to ensure stable gait and even/symmetric step length. Appeared exhausted at end of walk. Minimal shortness of breath but denied headache, chest pain, and lightheadedness throughout session. Vital signs monitored by ARABELLA Cerda were WNL. Balance: Static Sitting: Good Dynamic Sitting: Good Static Standing: Fair Dynamic Standing: Poor Special Tests: Mobility Limitations Standardized Measure [facility] AM-PAC 6 clicks Basic Mobility Inpatient Short Form: Raw Score: 18 CMS Score: 47% deficit 4-stage balance test: Unable to maintain any of the 4 positions for 10 seconds indicating at high risk for falls. Informed Consent/Education: Patient was instructed in purpose of PT consult and plan of care. Agreeable to proceed with established PT POC to achieve personal goals. ASSESSMENT: R UE/LE hemiparesis with hand mostly affected, cmm inspector significantly impaired. Hemineglect evident on R side. Motor execution on R UE/LE impaired. Safety awareness impaired due to visual perceptual deficits. Patient presents with clinical signs and symptoms consistent with current/admitting diagnoses that have resulted to mobility limitations, gait instability, generalized weakness, and overall ADL decline as demonstrated by the following impairment level findings: 1. Decreased strength to r UE/LE major muscle groups 2. Impaired standing balance 3. Impaired activity tolerance 5. Weak R cmm inspector 6. Hemineglect on R side 7. Visual/preceptual deficit decreasing safety of mobility task performance 8. Aphasia Impairments are contributing to the following functional limitations: 1. Decline in bed mobility skills 2. Decline in transfer skills 3. Impaired ambulation needing assiatnce with walking 4. Increased completion time for mobility ADL performance 5. Increased risk for falls 6. Difficulty with managing steps alone safely 7. Impaired communication abilities Patient is assessed as a 20942 moderate complexity based on the following: History: 73-year-old male with past medical history as indicated above Examination: Demonstrable impairment in strength, balance, and mobility level with underlying impairments and functional limitations as exhibited above as well as deficit score of 47% utilizing the [facility] Mobility Inpatient Short Form Presentation: Evolving Decision Makin moderate complexity Goals: Goals X1 week 1. Supine-Sit independent 2. Sit-Supine independent 3. Sit-Stand stand by assist with FWW 4. Stand-Sit stand by assist with FWW 5. Bed-Chair stand by assist with FWW 6. Chair-Bedstand by assist with FWW 7. Conatct guard assist with gait on level surface with use of FWW vs. hemiwalker for at least 100 feet without report of pain nor dyspnea 8. Independent stair negotiation while holding onto B rails for at least 5 steps without report of pain nor dyspnea 9. Fair static and dynamic standing balance/tolerance PLAN OF CARE/TREATMENT PLAN: -1-2x/day, 7 days/week x 1 week. -Plan of care has been reviewed with the GOLF COURSE MECHANIC providing the service under Physical Therapy direction. -Initiate Physical Therapy intervention for pain management as needed, strengthening, bed mobility, transfers, gait, stairs, balance training, and use of assistive device. -Increase awareness of R UE/LE, approach patient from the R side as much as possible. DISCHARGE RECOMMENDATIONS: [] Home with no services [] [] Home with services [specify] [] Home with outpatient PT [] [] SNF for continued rehabilitation [] [] [facility] Care [] [] SNF versus LTC based on ability to participate and progress [] [X] Acute stroke rehab facility vs. SNF TREATMENT CODE/TIME: 84648 x 20 minutes, 30274 x 18 minutes beginning at 10:28 AM. Thank you for the opportunity to participate in the care of this patient. Arlette Ledezma PT, DPT, CLT [facility] [place], [place]
--- NOTE | 2023-05-14 13:40 | W.PALLCONSUL ---
Date of service: 05/14/23 Time of Service: 13:41 History of Present Illness Narrative: Mr. Lama is a 73-year-old gentleman from [facility] who is admitted ?Left rvlhzg-dyrdxlih-jxynhunb ischemic stroke manifested by global aphasia, right face and dense right arm weakness, dysarthria, suspected dysphagia, and apparent R homonymous hemianopsia. (cause L ICA occlusion). Ongoing medical problems include poorly controlled diabetes (last A1c in early April over 9%, status post toe amputations and lower leg ulcers), hypertension, smoking, opioid use disorder (long-term receiving methadone from [facility]), history of osteomyelitis, hypothyroidism, ADHD. Very difficult to get additional history. Patient has fairly dense expressive aphasia. He is right-handed and unable to write because of moderate right upper extremity hemiplegia, especially affecting his fingers and hands. No contact information for either son Susie or daughter Alejandra listed in our chart. Sister Ellen's contact information in chart, but I tried to call her and she is not available. Most of history from chart. Care Team: Primary Care physician: Christiano ROCHE treatment: [facility] Neurology: Dr. Rodriguez Podiatry (was Dr. Quintana, now will be [place] ) Social HX: lives in a mobile home on a large piece of property in [place], [place]. He has 2 children. His son Susie lives in a separate dwelling on his property and his daughter Alejandra lives near with her and 4 children. He identified that they are generally supportive. Patient unable to impart any additional information and including hobbies, previous marital history, whether he is driving or not. Impression of currents health status: N/A What bothers you the most: N/A What worries you the most: N/A Current information preferences: N/A Function: As per chart, previously living independently prior to CVA Ambulation:Chart reports that patient was walking with cane and walker prior to this stroke. ADLs: iADLs: Hearing: Unknown Vision: Unknown Spiritual history: Unknown Palliative review of systems: Pain: none Dyspnea:None GI symptoms: No dysphagia, says he is eating. Appetite:down a bit Depression: Not queried Anxiety: None Emotional Distress: Spiritual/Existential Distress: Labs: Cr: Ranges 1.0 Liver panel: Normal Albumin: CBC: Borderline anemia Advanced Care Planning: Advanced Directive: Does not think he has one. Health Care Agent: Indicates by pointing at choice of names and nodding that he would want his son Susie Caballero would be Health Care Agent. COLST: None Limitations: Unable to evaluate today Assessment and Plan Assessment and plan (1) Palliative care patient: Status: Acute (2) Advanced care planning/counseling discussion: Status: Acute Assessment and plan: Given communication challenges, patient only able to answer with a few words and using a yes no point board, patient says he is not sure whether he has an advance directive or healthcare agent form When asked who he would like to make decisions for him if he was unable to make them himself, he indicates he would want his life to do this. This is communicated via point board and is confirmed by asking a second time later. However healthcare agent form is not completed today I was unable to get further information from adult children today, his phone numbers not available. I did call his sister, but she was not even aware that he was in the hospital. Recommend that we set up a family meeting with patient, son Susie, daughter Alejandra, case management (if able to attend), physical therapy, Occupational Therapy, speech therapy (if available to review current diagnoses, answer questions, discuss prognosis. I also would like to go over healthcare agent again. And we can also try to discuss additional goals of care issues. Palliative Care Team cashier receptionist/nursing staff have been asked to make necessary phone calls to set this up. 16 to 30 minutes spent today on Advance Care Planning. Patient participated voluntarily. Advance care planning may include (not limited to) explanation and discussion of advance directives, choosing and appointing healthcare agents, alternatives to various ACP tools, discussion of (and if indicated, completion of) COLST form, discussion of patient's values and overall goals for treatment, palliative and disease directive care options, ways to avoid hospital readmission including hospice discussions, care preferences should the patient's several other adverse health events.See today's palliative care note for additional information. (3) Acute ischemic stroke: Status: Acute Assessment and plan: Diagnosis explained to patient. Discussed that he will probably have additional return of some abilities over time. Very important to engage in OT/PT/HEARING AID REPAIR TECHNICIAN over the next several months. He did not have any additional questions (4) Expressive aphasia: Status: Acute Assessment and plan: Patient had his first evaluation with HEARING AID REPAIR TECHNICIAN. Initial evaluation mostly involved swallowing evaluation. Subsequent visits will start working on aphasia. (5) Paralysis of right upper extremity: Status: Acute Assessment and plan: Patient is right-handed. Unable to write at this time. He will be working with OT and HEARING AID REPAIR TECHNICIAN. (6) 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: Status: Chronic (7) Substance abuse in remission: Status: Acute Assessment and plan: Patient will be continued on his maintenance dose of methadone. Treating physician could consider discussing with his OUD treatment doctor whether a slow taper to a lower dose might be possible. Concern always around interaction of methadone with other medications. PFSH All Active Problems (Updated 05/14/23 @ 16:12 by Ludmila Thomas MD) Paralysis of right upper extremity (Acute) Expressive aphasia (Acute) Advanced care planning/counseling discussion (Acute) Palliative care patient (Acute) Left carotid artery occlusion (Acute) Acute ischemic stroke (Acute) Hypertension (Chronic) Substance abuse in remission (Acute) Osteomyelitis of second toe of right foot (Acute) 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) Osteomyelitis of second toe of left foot (Acute) Diabetic infection of right foot (Acute) Cellulitis of foot, right (Acute) Acute kidney injury (Acute) MRSA bacteremia (Acute) Osteomyelitis of toe of right foot (Acute) Foot infection (Acute) Cellulitis (Acute) Osteomyelitis due to type 2 diabetes mellitus (Acute) left great toe Hypothyroidism (Chronic) Osteomyelitis of great toe of left foot (Acute) Chronic ulcer of great toe (Acute) Amputation of toe of right foot (Acute) Hyperlipidemia (Acute) Ganglion cyst of finger of right hand (Acute) Onychomycosis (Acute) Erectile dysfunction (Acute) Chronic pain (Chronic) ADHD (Acute) Polyp of colon, adenomatous (Acute) Adenoma of right adrenal gland (Acute) Diverticulosis (Acute) Asthma (Chronic) Staphylococcus epidermidis bacteremia (Acute) Cognitive impairment (Acute) Acute cerebrovascular accident (CVA) (Acute) Medical History Anxiety Diabetes Disorder of tendon of right hand Hepatitis C History of amputation of great toe History of back pain Hyperglycemia Toe osteomyelitis, right Right great toe Surgical History History of appendectomy History of inguinal hernia repair History of liver biopsy (~01/2001) 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 DOS: 01/15/19 Family History Brother Heart disease Father Congestive heart failure Mother Congestive heart failure Social History Smoking/Tobacco Use Status: Current every day Tobacco Type: cigars Smoking risk assessment performed?: Yes Alcohol Intake: former Drug use: Current Sobriety Substance use type: former substance user Caregiver/Support person: No Communication Needs: Hard of Hearing and Corrective Lenses Pets and animals: Yes Pets and animals: cat(s) and dog(s) Sexually active: No Do you think of yourself as: straight/heterosexual Current gender identity: male What is your relationship status?: How often do you talk on the phone with friends or family?: three or more times per week How often do you get together with friends or relatives?: three or more times per week How often do you attend sabianism or quaker services?: decline to answer Do you belong to any clubs or organized social groups?: no Panel score (0-1 are the most socially isolated patients): 2 What type of physical activity do you participate in: none Frequency: does not exercise Richa/Anabaptist: None Special richa needs: No Seatbelt use: always Helmet use: No Drive intox or ride w/intox 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 Able to stand up on his chair on his own and then sit back down. Unable to sort out how to operate electrical controls to recliner. Later able to get out of bed and walk 2 steps over to his bed and sit on the end. He is wearing postop boots on both feet. Color is slightly pale. He has a mild right facial droop. Right arm is laying quietly by his side. When asked to lift his right arm he can AB duct at the shoulder to about 90 degrees. Finger stay limp. He has minimal movement of his fingers. Unable to hold writing implement in right hand. Left arm has good range of motion, he can hold objects and manipulate them with his left hand. Able to hold implement in left hand but can only draw course outlines. Walking is not carefully observed. He appears to have an expressive dysphagia. He has some simple words. He can start a sentence and then is unable to finish. I fashioned a point board with yes and no and he is able to answer some very simple questions. He seems frustrated by the whole process. Results Last Vital Signs Temp 36.5 C 05/14/23 11:17 Pulse 84 05/14/23 11:17 Resp 18 05/14/23 11:17 BP 121/77 05/14/23 11:17 Pulse Ox 96 05/14/23 11:17 Labs 05/14/23 06:17 05/14/23 06:17 Labs: Laboratory Results - last 24 hr 05/14/23 05/14/23 06:17 06:17 WBC 6.88 RBC 4.34 L Hgb 12.1 L D Hct 37.4 L MCV 86 MCH 27.9 MCHC 32.4 RDW 14.4 H Plt Count 271 MPV 10.3 Immature Gran % 0.3 Neutrophils % 57.5 Lymphocytes % 25.4 Monocytes % 10.9 Eosinophils % 4.9 Basophils % 1.0 Nucleated RBC % 0.0 Absolute Neutrophils 3.95 Absolute Lymphocytes 1.75 Absolute Monocytes 0.75 Absolute Eosinophils 0.34 Absolute Basophils 0.07 Sodium 142 Potassium 3.7 D Chloride 104 Carbon Dioxide 33.0 H Anion Gap 5.0 BUN 26 H Creatinine 1.0 Est GFR (CKD-EPI 2020) 80.47 Glucose 127 H Calcium 8.4 L Triglycerides 155 H Total Cholesterol 165 LDL Cholesterol, Calc 106 H HDL Cholesterol 28 L
[2023-05-14] MEDS: Enoxaparin 40 MG/0.4 ML SYR SC (15:52)
[2023-05-14] MEDS: Lidocaine 2% Jelly 11 ML SYR UR (16:46)
--- NOTE | 2023-05-14 17:18 | PDOC.CMPRO ---
Date of service: 05/14/23 Time of Service: 17:18 Care Management Progress Note Progress Note Text Progress Note Text: S/O: CM met with Ed to complete updated HIPPA form; Ed chose to have his son Susie and daughter Alejandra listed on his HIPPA. CM spoke with Susie, provided updates and reviewed Palliative MD plan for family meeting on , and discussed Ed's presentation. CM continues to follow. A: 73 year old male admitted to [facility] 05/13/23 for CVA P: Ed will participate in a family meeting with Palliative Care and his son Susie on -tentatively at noon. Undetermined discharge plan at this time, CM continues to follow.
--- NOTE | 2023-05-14 18:42 | PT.INTREAT ---
Date of service: 05/14/23 Time of Service: 17:28 PT Notes Visit Reasons: Cerebrovascular accident Inpatient Physical Therapy Treatment Note [facility] Date: 05/14/23 PRECAUTIONS: Fall, standard, activity as tolerated, post op shoes on for all out of bed activities SUBJECTIVE: Patient supine in bed, agreeable to therapy. OBJECTIVE: PAIN: Patient indicates no pain throughout session BED MOBILITY/TRANSFERS Rolling L/R: [] Supine-sit: [] Sit-supine: [] Sit-stand: [] Stand-sit: [] Bed-Chair: [] Chair-bed: [] GAIT Assistive Device: [] Weight bearing: [] Assist: [] Distance: [] Deviation: [] VITALS: [] THEREX: [] STAIRS:[] ASSESSMENT: [] PLAN: [] TREATMENT CODE/TIME: []
--- NOTE | 2023-05-14 18:48 | W.PM.PROGNOT ---
Date of Service Date of service: 05/14/23 Time of Service: 18:48 Assessment and Plan Assessment and plan (1) Acute cerebrovascular accident (CVA): Status: Acute Assessment and plan: Continue aspirin, plavix, statin. Will discuss with Dr Rodriguez if the patient would benefit from an echo. Continue working with PT, OT, speech. Seen by palliative. Remains full code. 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 Continue basal bolus regimen. This will need to be uptitrated once the patient is permitted a diet. (4) Substance abuse in remission: Status: Acute Assessment and plan: Continue methadone. Dose verified. (5) DVT prophylaxis: Status: Acute Assessment and plan: SC enoxaparin (6) Discharge planning issues: Status: Acute Assessment and plan: Full code Continues to require hospitalization Subjective Subjective Interval history since last seen: Mr Caballero denies headeache, dizziness, CP, SOB, n/v. He denies numbness/tingling. He is able to says yes/no and follows commands. Exam Narrative Exam Narrative: General: male who is awake, answers yes/no, follows commands HEENT: EOMI, MMM Heart: RRR, no m/r/g Lungs: crackles at B bases Abdomen: soft, nontender, nondistended Extremities: no edema BLEs Objective Last Vital Signs Temp 36.6 C 05/14/23 18:30 Pulse 76 05/14/23 18:30 Resp 18 05/14/23 18:30 BP 153/67 H 05/14/23 18:30 Pulse Ox 94 05/14/23 18:30 Laboratory Results - last 24 hr 05/14/23 05/14/23 06:17 06:17 WBC 6.88 RBC 4.34 L Hgb 12.1 L D Hct 37.4 L MCV 86 MCH 27.9 MCHC 32.4 RDW 14.4 H Plt Count 271 MPV 10.3 Immature Gran % 0.3 Neutrophils % 57.5 Lymphocytes % 25.4 Monocytes % 10.9 Eosinophils % 4.9 Basophils % 1.0 Nucleated RBC % 0.0 Absolute Neutrophils 3.95 Absolute Lymphocytes 1.75 Absolute Monocytes 0.75 Absolute Eosinophils 0.34 Absolute Basophils 0.07 Sodium 142 Potassium 3.7 D Chloride 104 Carbon Dioxide 33.0 H Anion Gap 5.0 BUN 26 H Creatinine 1.0 Est GFR (CKD-EPI 2020) 80.47 Glucose 127 H Calcium 8.4 L Triglycerides 155 H Total Cholesterol 165 LDL Cholesterol, Calc 106 H HDL Cholesterol 28 L Objective Narrative Objective Narrative: MRI brain: 1. Acute infarcts involving the left cerebellum and left parietal lobe.? 2. Cerebral atrophy and small vessel ischemic disease. 3. Area of encephalomalacia involving the left posterior parietal lobe. Progress Note: Quality Stroke Onset of Symptoms Date: 05/06/23 Rehab Services Assessed: Activities of daily living assessment Time Spent with Patient Time Spent with Patient: 35-49 minutes Time was spent: preparing to see the patient(eg.review tests), obtaining and/or reviewing separately otained hiistory, ordering medications,tests, procedures, referring, communicating with other health managed care coordinator, indepentently interpreting results, counseling the patient and care coordination
[2023-05-14] MEDS: Magnesium Chloride 64 MG TABCR PO (20:10)
--- NOTE | 2023-05-14 20:34 | OTIE_ITS ---
Occupational Therapy Notes Inpatient Occupational Therapy Evaluation Date: 05/14/23 Referring Doctor:MARISABEL PARRA MD, OT Orders: Urgent Precautions: Fall, Standard, Full PATIENT PROFILE/ADMITTING DIAGNOSIS: Pt is a 73 year old male who presented to the ED with a chief c/o CVA/TIA. He was admitted to Med Surg with the following dx of paralysis of (R) UE, expressive aphasia, (L) carotid artery occlusion, acute ischemic stroke, HTN, substance abuse in remission. Past Medical History: All Active Problems? Hypertension (Chronic) Substance abuse in remission (Acute) Osteomyelitis of second toe of right foot (Acute) 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) Osteomyelitis of second toe of left foot (Acute) Diabetic infection of right foot (Acute) Cellulitis of foot, right (Acute) Acute kidney injury (Acute) MRSA bacteremia (Acute) Osteomyelitis of toe of right foot (Acute) Foot infection (Acute) Cellulitis (Acute) Osteomyelitis due to type 2 diabetes mellitus (Acute) left great toeHypothyroidism (Chronic) Osteomyelitis of great toe of left foot (Acute) Chronic ulcer of great toe (Acute) Amputation of toe of right foot (Acute) Hyperlipidemia (Acute) Ganglion cyst of finger of right hand (Acute) Onychomycosis (Acute) Erectile dysfunction (Acute) Chronic pain (Chronic) ADHD (Acute) Polyp of colon, adenomatous (Acute) Adenoma of right adrenal gland (Acute) Diverticulosis (Acute) Asthma (Chronic) Staphylococcus epidermidis bacteremia (Acute) Cognitive impairment (Acute) Acute cerebrovascular accident (CVA) (Acute) Medical History? Anxiety Diabetes Disorder of tendon of right hand Hepatitis C History of amputation of great toe History of back pain Hyperglycemia Toe osteomyelitis, right Right great toe Surgical History? 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 He states that he does not live alone and responded yes to if he was (I) with his ADLs. Pt is a poor historian at this time in order to give full details on his baseline. Pt has a son and daughter. He notes that he does drive. OT will continue to assess pts baseline and current level of function. SUBJECTIVE: Pt was lying in bed. He was not able to respond to OT verbally in full sentences but was able to answer yes or no. OBJECTIVE: General Observation: Lying in bed, requires mod to max vc throughout for performance of his ADLs, min verbal communication Mental Status: Alert to name Pain: no c/o pain ROM: RUE uncontrolled movements of (R) UE, (R) UE neglect L UE WFL STRENGTH: RUE 2/5 LUE 4/5 FUNCTIONAL MOBILITY/ADLS: BATHING seated in bed Bathing UE mod vc pt is able to wash his face. Bathing LE NT DRESSING Dressing UE Mod (A) Dressing LE max (A) don and doffing (B) socks EATING sitting in bed with (L) UE he is able to bring food to his mouth with increased performance time. BALANCE: Static sitting Normal Dynamic Sitting Normal INFORMED CONSENT/EDUCATION: Pt instructed in purpose of OT Consult and plan of care. ASSESSMENT: Patient is a 73-year-old male referred to occupational therapy services with diagnosis of paralysis of (R) UE, expressive aphasia, (L) carotid artery occlusion, acute ischemic stroke, HTN, substance abuse in remission. Patient presents with clinical signs and symptoms consistent with dx, as demonstrated by the following impairment level findings/functional limitations: Impairments in ADL/IADL and leisure impairments, decreased cognitive function, (R) UE neglect, decreased functional activity, decreased task initiation, decreased task planning/executive function. Patient is assessed as a high 51902 complexity based on the following: History: see above Examination: see functional limitations as noted above Presentation: evolving Decision Making: high complexity GOALS Goals x1 week 1. Transfers min (A) 2. Dressing mod (A) 3. Bathing mod (A) 4. Toileting on commode (I) 5. Eating (I) PLAN OF CARE/TREATMENT PLAN: 1x/day, 5 days/ week x 1week Initiate Occupational Therapy Services for bathing, dressing, grooming, toileting, eating, transfer training. DISCHARGE RECOMMENDATIONS [facility]/stroke rehabilitation vs. SNF TREATMENT TIME/MINUTES/CODES 75033, 63128, 07:35 Sara Cantu, OTR/[facility] [place], [place]
[2023-05-15] VITALS (9 sets, daily range): BP systolic 124–185; BP diastolic 67–91; PULSE 64–82; RESP 16–20; TEMP 36.1–36.8; O2SAT 92–100
--- NOTE | 2023-05-15 | DI.CT_ITS ---
Exam(s) CT CHEST/ABD/PEL W EXAM: CT CHEST/ABD/PEL W CLINICAL HISTORY: multiterritory infarct, malignancy w/u. TECHNIQUE: Imaging Protocol: Axial computed tomography images with coronal and sagittal reformatted images were created and reviewed CONTRAST MATERIAL: Intravenous: Omnipaque 350 Contrast volume:100 ml Oral: / no COMPARISON: CT ABD PELVIS WITH CONTRAST from 12/23/2008 CT CHEST ABD PELVIS WITH CONTRAST from 07/21/[address] CHEST PE CTA from 03/09/2022 CR XR PORTABLE CHEST AP from 05/13/[address] BRAIN NECK CTA from 05/13/2023 FINDINGS: CHEST: Exam somewhat limited by motion. Tracheobronchial tree: Patent where visualized. Pulmonary parenchyma: No consolidation or dominant measurable mass. Emphysematous changes. Pleura: No effusion or pneumothorax. Lymph nodes: Within normal limits. Aorta: Thoracic portion non-dilated. Atherosclerotic changes greatest at arch. Heart: Normal size. Mild coronary artery calcifications. Bones: Unremarkable for age. No lytic or blastic lesions.Minimal compression fractures superior endp lates of T6 and T8. ABDOMEN: Exam is limited by motion Liver: Normal density. No measurable mass. Mild nodular liver contour could indicate cirrhosis. Mese nteric varicosities are noted Gallbladder and biliary tract: Motion at the level of the gallbladder. Mild intra and extrahepatic bi liary dilatation slightly more prominent than prior. Pancreas: Atrophic. Spleen: Normal. Kidneys: Normal size, contour and axis. No radiodense stones or obstructive uropathy. No suspicious m asses seen. Adrenal glands: Low density circumscribed right adrenal mass was present on the previous exam but has increased in size. The findings are likely consistent with an adenoma. Aorta: Abdominal portion non-dilated. Atherosclerotic changes. Mural thrombus. No visible stenosis o f SMA, celiac axis or renal arteries. Lymph nodes: 19 millimeter left inguinal lymph node, increased in size from prior exam.. Other smalle r lymph nodes seen. 2.9 centimeter left external iliac chain lymph node. Soft tissues: Increased densities in the anterior subcutaneous tissues with air consistent with injec tion sites. PELVIS: Bladder: Decompressed by Riojas catheter. Bowel: No obstruction or bowel wall thickening. Peritoneal cavity: No ascites, collection or mesenteric inflammatory response. Bones: Unremarkable for age.. Reproductive organs: Within normal limits. IMPRESSION: Chest: Emphysematous changes. No acute abnormality. Abdomen and pelvis: Mildly cirrhotic appearing liver. Mesenteric varices. Mild biliary dilatation without visible obstructing stone or mass. Left external iliac and inguinal lymph nodes. Right adrenal mass was present previously but has increased in size. The findings could represent an adenoma. MRI could be considered for further evaluation. RADIATION DOSE DELIVERED: 3,054.39mGy.cm Total DLP DATA REPOSITORY: All CT scans at this facility are submitted to the National Radiology Data Registry (NRDR) Dose Index Registry (DIR) with the [employer] (ACR). RADIATION OPTIMIZATION: All CT scans at this facility use at least one of these dose optimization te chniques: automated exposure control; mA and/or kV adjustment per patient size (includes targeted exa ms where dose is matched to clinical indication); or iterative reconstruction.
[2023-05-15 07:12] LABS: Abs Immature Grans 0.02 10^3/uL (0.0-0.06); Absolute Basophil Count 0.06 10^3/uL (0.0-0.2); Absolute Eosinophil Count 0.28 10^3/uL (0.0-0.7); Absolute Lymphocyte Count 1.44 10^3/uL (1.2-3.4); Absolute Monocyte Count 0.75 10^3/uL (0.1-0.8); Absolute Neutrophil Count 4.15 10^3/uL (1.2-6.7); Basophils % 0.9; Eosinophils % 4.2; HCT 37.9 % (40.0-50.0); HGB 12.2 g/dL (13.5-17.5); Immature Grans % 0.3; Lymphocytes % 21.5; MCH 27.9 pg (27.0-33.0); MCHC 32.2 % (32.0-36.0); MCV 87 fL (80-95); Monocytes % 11.2; Neutrophils % 61.9; Platelet Count 262 10^3/uL (130-400); RBC 4.37 10^6/uL (4.36-5.78); RDW 14.2 % (11.8-14.1); RDW-SD 45.4 fL
[2023-05-15 07:25] LABS: Anion Gap 6.2 mmol/L (3-11); BUN 20 mg/dL (7-18); CO2 31.8 mmol/L (21.0-32.0); CREATININE 0.9 mg/dL (0.70-1.30); Calcium 8.4 mg/dL (8.5-10.1); Chloride 104 mmol/L (98-107); Estimated GFR 91.31 (mL/min/1.73m2); Glucose 99 mg/dL (74-106); Magnesium 1.9 mg/dL (1.8-2.4); Sodium 142 mmol/L (136-145)
[2023-05-15] MEDS: Aspirin E.C. 81 MG TABEC PO (07:53)
[2023-05-15] MEDS: metFORMIN C.R. 500 MG TABCR PO (07:53)
[2023-05-15] MEDS: Clopidogrel 75 MG TAB PO (07:53)
[2023-05-15] MEDS: Gabapentin 800 MG TAB PO ×4 (07:53→21:42)
[2023-05-15] MEDS: amLODIPine 5 MG TAB PO (07:53)
[2023-05-15] MEDS: Magnesium Chloride 64 MG TABCR PO ×2 (07:53→21:41)
[2023-05-15] MEDS: Methadone Liquid 10 MG/ML 225 MG PO (07:54)
[2023-05-15] MEDS: Insulin Glargine 300 UNITS/3 ML PEN 30 UNITS SC (07:54)
[2023-05-15] MEDS: Carvedilol 12.5 MG TAB PO (07:54)
[2023-05-15 07:56] LABS: Vitamin B12 546 pg/mL (193-986)
[2023-05-15] MEDS: Docusate Sodium 100 MG CAP PO (09:28)
[2023-05-15] MEDS: Polyethylene Glycol 3350 17 GM PACKET PO (09:28)
--- NOTE | 2023-05-15 10:11 | OTTR_ITS ---
Occupational Therapy Notes Occupational Therapy Inpatient Treatment Note Date: 05/15/23 PRECAUTIONS: fall, standard, full SUBJECTIVE: Pt was lying in bed, he is attempting to use his (R) UE but requires vc throughout OBJECTIVE: PAIN:pt states no pain while working with OT BATHING: max (A) set up Upper Body: min (A) face and (B) UE vc for use of (R) UE d/t neglect DRESSING: Upper Extremity: Min (A) don [facility] Lower Extremity: mod (A) don and doffing (B) socks TREATMENT CODES/TIME: 62695, 15 minutes Sara Cantu OTR/[facility] [place], [place]
--- NOTE | 2023-05-15 10:30 | PDOC.CMPRO ---
Date of service: 05/15/23 Time of Service: 10:30 Care Management Progress Note Progress Note Text Progress Note Text: S/O: CM met with Ed to complete updated HIPPA form; Ed chose to have his son Susie and daughter Alejandra listed on his HIPPA. CM spoke with Susie, provided updates and reviewed Palliative MD plan for family meeting on , and discussed Ed's presentation. CM updated MD, Palliative and CM team of planning and continues to follow. A: 73 year old male admitted to [facility] 05/13/23 for CVA P: Ed will participate in a family meeting with Palliative Care and his son Susie on -tentatively at noon. Undetermined discharge plan at this time, CM continues to follow.
[2023-05-15] MEDS: Insulin Aspart 300 UNITS/3 ML PEN SC (11:27)
--- NOTE | 2023-05-15 12:00 | PT.INTREAT ---
PT Notes Visit Reasons: Cerebrovascular accident Inpatient Physical Therapy Treatment Note [facility] Date: 05/15/23 SUBJECTIVE: Ed states that he is frustrated and doesn't understand. Willing to participate in PT OBJECTIVE: [] BED MOBILITY/TRANSFERS Rolling L/R: I Supine-sit: SBA Sit-supine:SBA Sit-stand: SBA Stand-sit: SBA GAIT Assistive Device:FWW Weight bearing: full Assist: CGA Distance: approx 60' x2 Deviation: wc to follow, sitting rest break VITALS: monitored by nursing THEREX: performed a variety of sitting ex at EOB: AP, LAQ, marching, hip ab/add, sit to stand. UE ex including GH flex, abd, press ups, bicep curls x 10 each. Also worked on gripping, A/AAROM of hand/digits. ASSESSMENT: tolerated session well despite feeling frustrated. He worked hard, gave great effort with all exercises. Cues needed to slow silke down as he tends to get up and go. Requires assistance with right hand to j2ee android developer walker. I was unable to appreciate any muscle recruitment in hand at all this am. PLAN: continue to progress following PT POC. TREATMENT CODE/TIME: 30 min ([id number], [id number])
--- NOTE | 2023-05-15 15:15 | PT.INNT ---
PT Notes Visit Reasons: Cerebrovascular accident Pt not available for therapy early in the afternoon, pt in the process of getting clean will try again later in the afternoon.
[2023-05-15] MEDS: Enoxaparin 40 MG/0.4 ML SYR SC (16:08)
--- NOTE | 2023-05-15 16:52 | SPP_ITS ---
Date of service: 05/15/23 Time of Service: 16:53 Subjective Ed received awake/alert. Initially his son and grandson were present, but son stating he had not observed Ed eating any meals today. Nurse Bernadette noting no difficulties tolerating PO intake today. Ed has reportedly been complaining about his current diet and requesting to be upgraded. No reported difficulty tolerating thin liquids between meals per sandrita gonzalez protocol. Per staff he continues with very poor comprehension and ability to follow instructions. Objective/Assessment/Plan Objective Treatment Techniques & Outcomes: Aphasia Assessment: Naming objects 4/5 Repeating words 4/5 Repeating sentences 2/3 with minor errors Reading aloud: 3/15 words Not able to write with L hand legibly Following simple instructions: 1 element: 3/3, 2 elements: 0/3, complex: 0/2 Y/N questions: 3/5 Goals: Patient will tolerate safest/least restrictive diet? without s/sx aspiration. Food items tested: ?? IDDSI 0: IDDSI 4: IDDSI 7: Oral phase: Difficulty chewing Residue - mild Pharyngeal phase: Throat clearing?with dry crackers Patient/caregiver will be independent with aspiration precautions, diet modifications, and safe swallowing strategies. - Instructed patient regarding safety strategies with visual aids, provided written reminders for patient/staff to read. Patient was agreeable. Patient will participate in further cognitive-communication assessment/stimulability in order to provide further recommendations for effective communication and viable treatment aproaches. Assessment Given reported tolerance and observation of trials this date, upgrading patient to soft/bite size & thin liquids with strict oral care recommendations and aspiration precautions. Limited aphasia assessment due to time constraints but patient demonstrates moderate-severe receptive and expressive aphasia. Repetition is a relative strength as compared to comprehension, suggesting difficulties with phonological conversion which is consistent with mistakes noted in his reading-aloud. When patient is encouraged for task persistence and to slow down and take his time, verbal expression improves. Naming is a relative strength, though he does demonstrate some errors at the single word level and struggles additionally to put a sentences together. Regarding comprehension, he is unable to follow anything beyond single element instructions (e.g., succeeds with pointing when provided with verbal stimulus cracker, but when asked Flip over the cracker, he simply points to it again.) Regarding AAC, he is able to point to several pictures on communication board to dictation but is unwilling (or did not have naturalistic reason) to use it spontaneously to make requests, appearing quite reluctant/not receptive to use of communication board. Aside from moments of anomia, patient appears quite unaware of his errors and demonstrates low insight into his (especially receptive aphasia) making use of Patient would benefit from acute/intensive rehab for aphasia. As recovery progresses he is likely to gain more insight into his errors which will hopefully help his buy-in. If he is still inpatient upon my return Saturday will complete further patient/family education and further assessment/training as able. Recommendations Diet: 6-Soft & Bite Size(advanced/chopped) Liquids: 0-Thin Liquids Other: Medication Intake:? One at a time, Crushed if large, if able, in Pudding or applesauce. Alter medications only as advised by MD or Pharmacist Strategies/Adaptions: Upright and out of bed in a chair for all meals/snacks, Pace rate of intake, Small bites, Small sips (OK via straw if RN/CORE EXTRUDER able to ensure small sip size), Direct food to (L/R) of mouth (LEFT), Ensure complete mastication & swallow before next bite, Check oral cavity frequently and Upright for at least 30 minutes after meal Supervision: Direct supervision via of [facility] staff, assist w/feeding Recommendations: RISK MANAGEMENT: HOB upright as tolerated; upright for all PO intake. Encourage physical mobility as tolerated. Oral hygiene before/after PO intake, using friction with toothbrush on all oral structures as tolerated ? Posture/Positioning Needs: Maintain upright position at least 30 minutes after meals Avoid meals/snacks 2-3 hours prior to reclining/sleeping Sleep with head of bed elevated to reduce likelihood of nocturnal reflux Comprehension Recommendations: Reduce length of sentences and complexity of words Rephrase sentences and/or concepts if comprehension is unclear Provide visual aids/resources whenever possible Offer simplified written text whenever possible for patient to review Utilize Yes/No questions to determine understanding after new concepts are presented Allow for additional processing time when speaking? to patient or asking questions ? Expression Recommendations: Allow patient additional time to express self and/or multiple attempts to find word(s) For word finding difficulties during conversation: Provide patient with visual aids (smallest possible field of choice) and allow him to make a choice using pointing or repetition Provide assistance with reading text aloud, encouraging spoken repetition (especially of multisyllabic words) Encourage use of relevant gestures to enhance expression Total Time Spent: 15 min - 65025 20 min - Coding Diagnoses CPT Codes SPEECH SOUND LANG COMPREHEN - 57785 ([id number]) ORAL FUNCTION THERAPY - 78742 ([id number])
--- NOTE | 2023-05-15 17:22 | PGE_ITS ---
Date of Service Date of service: 05/15/23 Time of Service: 17:22 Assessment and Plan Assessment and plan (1) Acute ischemic stroke: Status: Acute (2) Left carotid artery occlusion: Status: Acute Assessment and plan: #1. Ischemic stroke manifested by global aphasia, right face and dense right arm weakness, dysarthria, suspected dysphagia, and apparent R homonymous hemianopsia. 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 But he was also found to have a L cerebellar infarct as well. The etiology of this stroke is not clear. Work-up: -Telemetry with 30 day property assessment monitor on discharge -consider SILVIANO -consider CTA C/A/P given multivessel thrombosis and stroke Medications: -aspirin 81mg + clopidogrel 75mg daily for secondary stroke prevention x90 days, then clopidgorel 75mg daily alone thereafter -atrovastatin 80mg daily for secondary stroke prevention - ok to titrate at d/c for goal LDL <70 Other: -Allow permissive hypertension -Physical therapy for leg weakness, gait training -Occupation therapy for upper extremity weakness, activities of daily living -Speech therapy for speech and swallow; he has a lot of agitation from his aphasia, was unwilling to use his communication board with me today Subjective Subjective Interval history since last seen: -MRI brain (05/14/23): noted acute/subacute infarcts as expected in the L frontal/parietal subcortex in watershed-like distribution; but also unexpectedly in the L cerebellum. He has a prior stroke in the L parietal cortex. I reviewed these images personally and this is my personal interpretation. -TTE (05/15/23): EF 55%. Wall motion could not be assessed due to technical i ssues. LA normal. -LDL [address] just prior to my visit with improvement in swallowing - upgraded to soft/bite size and thins. When I came into the room, he was standing up essentially naked with michel catheter still in place. There was water all over the floor. He was banging the TV on the wall and trying to get to something behind the TV. He was quite agitated when the nurse and I tried to get him to sit down. Kept trying to get back up and bang the TV. He refused to participate in any exam today. Kept telling me no or shaking his head. Exam Narrative Exam Narrative: Mr. Caballero remains globally aphasic. He was standing when I walked in. He refused to participate in an exam today. Objective Last Vital Signs Temp 97.7 F 05/15/23 15:00 Pulse 78 05/15/23 15:00 Resp 18 05/15/23 15:00 BP 159/82 H 05/15/23 15:00 Pulse Ox 95 05/15/23 15:00 Laboratory Results - last 24 hr 05/15/23 05/15/23 05/15/23 06:40 06:40 06:40 WBC 6.70 RBC 4.37 Hgb 12.2 L Hct 37.9 L MCV 87 MCH 27.9 MCHC 32.2 RDW 14.2 H Plt Count 262 MPV 10.0 Immature Gran % 0.3 Neutrophils % 61.9 Lymphocytes % 21.5 Monocytes % 11.2 Eosinophils % 4.2 Basophils % 0.9 Nucleated RBC % 0.0 Absolute Neutrophils 4.15 Absolute Lymphocytes 1.44 Absolute Monocytes 0.75 Absolute Eosinophils 0.28 Absolute Basophils 0.06 Sodium 142 Potassium 4.0 Chloride 104 Carbon Dioxide 31.8 Anion Gap 6.2 BUN 20 H Creatinine 0.9 Est GFR (CKD-EPI 2020) 91.31 Glucose 99 Calcium 8.4 L Magnesium 1.9 Vitamin B12 546 Progress Note: Quality Stroke Onset of Symptoms Date: 05/06/23 Rehab Services Assessed: Activities of daily living assessment Time Spent with Patient Time Spent with Patient: 25-34 minutes Time was spent: preparing to see the patient(eg.review tests), referring, communicating with other health healthcare risk control consultant, indepentently interpreting results and counseling the patient
--- NOTE | 2023-05-15 19:54 | PGE_ITS ---
Date of Service Date of service: 05/15/23 Time of Service: 19:54 Assessment and Plan Assessment and plan (1) Acute cerebrovascular accident (CVA): Status: Acute Assessment and plan: Brain MRI shows L cerebellar and L parietal lobe infarcts. Continue aspirin, plavix, statin. Echo shows LVEF of 55%, Normal size and function of the R side, and no significant valvular disease. Obtain CT chest/abdomen/pelvis to r/o malignancy (multiterritory infarcts could be connected to an underlying malignancy). Continue working with PT, OT, speech. Seen by palliative. Remains full code. Could benefit from acute rehab. 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 Continue basal bolus regimen. This will need to be uptitrated once the patient is permitted a diet. (4) Substance abuse in remission: Status: Acute Assessment and plan: Continue methadone. Dose verified. (5) Dysphagia: Status: Acute Assessment and plan: Diet was upgraded to soft/bite sized/thin. I am interested in whether he has already aspirated, however, given the wheezing I am hearing in his lungs. The CT of the chest will hopefully give us that answer. (6) Expressive aphasia: Status: Acute Assessment and plan: Continue working with speech therapy (7) DVT prophylaxis: Status: Acute Assessment and plan: SC enoxaparin (8) Discharge planning issues: Status: Acute Assessment and plan: Full code Continues to require hospitalization Subjective Subjective Interval history since last seen: Mr Caballero continues to report RUE/RLE weakness. It is bothering him. I did point out to him that I thought his R-sided weakness and speech were a bit better today. He denied dizziness, CP, SOB, n, headache. I encouraged him to be patient with his body as it is recovering. Discussed the case with Dr Rodriguez who recommends a CT chest/abdomen/pelvis to ensure that the patient does not have a malignancy since he had a stroke in several territories of his brain. Exam Narrative Exam Narrative: General: male who is awake, answers yes/no, but also attempting some sentences today, he is moving his RUE/RLEs, but is weaker on R (3/5 vs 5/5 on L), follows commands HEENT: EOMI, MMM Heart: RRR, no m/r/g Lungs: scattered rhonchi B; crackles at B bases Abdomen: soft, nontender, nondistended Extremities: no edema BLEs Objective Last Vital Signs Temp 36.5 C 05/15/23 18:22 Pulse 82 05/15/23 18:22 Resp 18 05/15/23 18:22 BP 158/89 H 05/15/23 18:22 Pulse Ox 95 05/15/23 18:22 Laboratory Results - last 24 hr 05/15/23 05/15/23 05/15/23 06:40 06:40 06:40 WBC 6.70 RBC 4.37 Hgb 12.2 L Hct 37.9 L MCV 87 MCH 27.9 MCHC 32.2 RDW 14.2 H Plt Count 262 MPV 10.0 Immature Gran % 0.3 Neutrophils % 61.9 Lymphocytes % 21.5 Monocytes % 11.2 Eosinophils % 4.2 Basophils % 0.9 Nucleated RBC % 0.0 Absolute Neutrophils 4.15 Absolute Lymphocytes 1.44 Absolute Monocytes 0.75 Absolute Eosinophils 0.28 Absolute Basophils 0.06 Sodium 142 Potassium 4.0 Chloride 104 Carbon Dioxide 31.8 Anion Gap 6.2 BUN 20 H Creatinine 0.9 Est GFR (CKD-EPI 2020) 91.31 Glucose 99 Calcium 8.4 L Magnesium 1.9 Vitamin B12 546 Progress Note: Quality Stroke Onset of Symptoms Date: 05/06/23 Rehab Services Assessed: Activities of daily living assessment Time Spent with Patient Time Spent with Patient: 35-49 minutes Time was spent: preparing to see the patient(eg.review tests), obtaining and/or reviewing separately otained hiistory, ordering medications,tests, procedures, referring, communicating with other health care transitions nurse, indepentently interpreting results, counseling the patient and care coordination
[2023-05-15] MEDS: Omnipaque 350 MG/ML 100 ML BTL IJ (21:15)
[2023-05-15] MEDS: Normal Saline - Diluent 50 ML VIAL IJ (21:16)
[2023-05-15] MEDS: Normal Saline Flush 10 ML SYR IVP (21:42)
--- NOTE | 2023-05-15 22:09 | DI.VRAD_ITS ---
PROCEDURE INFORMATION: Exam: CT Chest With Contrast; Diagnostic Exam date and time: 05/15/2023 8:45 PM Age: 73 years old Clinical indication: Other: Multiterritory infarct, malignancy w/u; Additional info: Multiterritory infarct, malignancy w/u. Cancer staging TECHNIQUE: Imaging protocol: Diagnostic computed tomography of the chest with contrast. 3D rendering (Not supervised by radiologist): MIP and/or 3D reconstructed images were created by the technologist. Radiation optimization: All CT scans at this facility use at least one of these dose optimization techniques: automated exposure control; mA and/or kV adjustment per patient size (includes targeted exams where dose is matched to clinical indication); or iterative reconstruction. Contrast material: OMNI 350; Contrast volume: 100 ml; Contrast route: INTRAVENOUS (IV); COMPARISON: CT CHEST PE CTA 03/09/2022 12:57 PM FINDINGS: Lungs: Moderate centrilobular emphysematous changes are present. There is heterogeneous attenuation of the pulmonary parenchyma, consistent with air trapping from underlying small airways disease. Scattered patchy ground-glass opacities within the lungs. These findings are nonspecific and may represent hypoventilatory change,edema, hemorrhage, or an infectious/inflammatory process (acute or chronic). Pleural spaces: There is no evidence of pneumothorax. There are no pleural effusions present. Heart: Unremarkable. No cardiomegaly. No pericardial effusion. Lymph nodes: Unremarkable. No enlarged lymph nodes. Vasculature: No definitive pulmonary emboli identified. The pulmonary arteries are not enlarged. The aorta demonstrates mild atherosclerotic calcification. Mild atherosclerosis at the origins of the great vessels. Intraperitoneal space: Please see CT of the abdomen and pelvis. Bones/joints: The skeletal structures and soft tissues show no evidence of fracture or other acute processes. There is a convex dextroscoliosis of the thoracic spine. Probable old injury to the sternum. No evidence of acute fracture. Soft tissues: The soft tissues of the extrathoracic region are unremarkable. Other findings: Motion artifact does moderately limit the sensitivity of this examination. IMPRESSION: 1. Moderate centrilobular emphysematous changes are present. 2. There is heterogeneous attenuation of the pulmonary parenchyma, consistent with air trapping from underlying small airways disease. 3. Scattered patchy ground-glass opacities within the lungs. These findings are nonspecific and may represent hypoventilatory change,edema, hemorrhage, or an infectious/inflammatory process (acute or chronic). There is minimal bibasilar atelectasis. PROCEDURE INFORMATION: Exam: CT Abdomen And Pelvis With Contrast Exam date and time: 05/15/2023 8:45 PM Age: 73 years old Clinical indication: Other: Multiterritory infarct, malignancy w/u; Additional info: Multiterritory infarct, malignancy w/u. Cancer staging TECHNIQUE: Imaging protocol: Computed tomography of the abdomen and pelvis with contrast. 3D rendering (Not supervised by radiologist): MIP and/or 3D reconstructed images were created by the technologist. Radiation optimization: All CT scans at this facility use at least one of these dose optimization techniques: automated exposure control; mA and/or kV adjustment per patient size (includes targeted exams where dose is matched to clinical indication); or iterative reconstruction. Contrast material: OMNI 350; Contrast volume: 100 ml; Contrast route: INTRAVENOUS (IV); COMPARISON: CT CHEST PE CTA 03/09/2022 12:57 PM FINDINGS: Lungs: Please see CT of the chest and lungs. Liver: There are no focal liver lesions present. There is a finely nodular contour to the liver and hypertrophy of the caudate lobe, consistent with end-stage cirrhosis. Gallbladder and bile ducts: The gallbladder is normal. There is no cholelitiasis, wall thickening or pericholecystic fluid to suggest cholecystitis. There is moderate intrahepatic biliary dilation. Pancreas: There is moderate pancreatic atrophy and fatty replacement. Spleen: The spleen is enlarged. Adrenal glands: Left adrenal gland is normal. Low-attenuation lesion present within the right adrenal gland measuring 2.5 cm likely representing an adrenal adenoma.The kidneys are normal. Kidneys and ureters: The ureters are normal caliber and follow a normal caliber and course. Stomach and bowel: There are fluid-filled loops of small bowel with air-fluid levels. No significant bowel wall thickening or inflammatory changes. No evidence of obstruction. Consider early enteritis. There is mild increased colonic fecal content. The colon is nondilated. These findings suggest a mild degree of constipation. Clinical correlation recommended. Appendix: There is a residual stump of the appendix present. No evidence of appendicitis. Intraperitoneal space: There is no evidence of free intraperitoneal or pelvic fluid. Vasculature: There sees arising from the splenic and superior mesenteric vein. The aorta demonstrates moderate atherosclerotic calcification. The arterial peripheral vasculature demonstrates diffuse mild atherosclerotic calcification. Lymph nodes: There is no evidence of lymphadenopathy. Urinary bladder: The bladder is decompressed by a [place] catheter but is otherwise normal. There is a small amount of urinary bladder intraluminal air consistent with instrumentation. Reproductive: The prostate gland demonstrates calcification and mild nonspecific enlargement. The seminal vesicles are normal. Bones/joints: Moderate degenerative changes of the lumbosacral spine. Mild degenerative changes of the hips bilaterally. No acute fracture. Soft tissues: Areas of gas present within the anterior abdominal wall consistent with iatrogenic injection sites. There are enlarged inguinal lymph nodes within the left groin and mildly enlarged external iliac lymph nodes present within the left hemipelvis.There is no free intraperitoneal air. Other findings: Motion artifact does moderately limit the sensitivity of this examination. IMPRESSION: 1. There are fluid-filled loops of small bowel with air-fluid levels. No significant bowel wall thickening or inflammatory changes. No evidence of obstruction. Consider early enteritis. 2. Cirrhosis with portal hypertension and splenomegaly. 3. Right adrenal mass. 4. Adenopathy within the left inguinal region and external iliac chain. Dictated and Authenticated by: Ramy Omalley MD. Ordering:CHICO Romero MD
[2023-05-16] VITALS (9 sets, daily range): BP systolic 138–176; BP diastolic 71–89; PULSE 60–74; RESP 12–18; TEMP 35.8–36.7; O2SAT 91–97
--- NOTE | 2023-05-16 | DI.MRI_ITS ---
Exam(s) MR BRAIN WO EXAM: MR BRAIN WO CLINICAL HISTORY: CVA; increased weakness.. TECHNIQUE: Multiplanar multisequence MRI of the brain was performed. CONTRAST MATERIAL: Noncontrast COMPARISON: MR MR BRAIN WO from 05/14/2023 FINDINGS: VENTRICLES AND EXTRA AXIAL SPACES: Normal in size and morphology for the patient's age. HEMORRHAGE: No acute hemorrhage. Few scattered low signal foci on susceptibility weighted images con sistent with old micro hemorrhages, in the left frontal and left parietal regions. CEREBRAL PARENCHYMA: Stable size and appearance of the area of restricted diffusion in the white pedro luis er adjacent to the left ventricle is as well as superior left frontal lobe. Stable area of encephalo malacia in the left posterior parietal region. Underlying microvascular changes in the white matter. No space-occupying lesion identified. MIDLINE SHIFT: None. BRAINSTEM/CEREBELLUM: Stable small area restricted diffusion in the left cerebellar hemisphere. CALVARIUM: Normal. VISUALIZED PARANASAL SINUSES/MASTOIDS: Clear. OTHER FINDINGS: None. IMPRESSION: Stable size and appearance of infarcts in the left cerebellum and left frontal regions. Stable encep halomalacia in the posterior left parietal lobe. No new abnormalities. DATA REPOSITORY:
[2023-05-16] MEDS: Insulin Aspart 300 UNITS/3 ML PEN SC ×3 (08:32→17:22)
[2023-05-16] MEDS: Insulin Glargine 300 UNITS/3 ML PEN 30 UNITS SC (08:33)
[2023-05-16] MEDS: Carvedilol 12.5 MG TAB PO (08:36)
[2023-05-16] MEDS: amLODIPine 5 MG TAB PO (08:37)
[2023-05-16] MEDS: Aspirin E.C. 81 MG TABEC PO (08:37)
[2023-05-16] MEDS: Clopidogrel 75 MG TAB PO (08:37)
[2023-05-16] MEDS: Gabapentin 800 MG TAB PO ×4 (08:37→20:51)
[2023-05-16] MEDS: Methadone Liquid 10 MG/ML 225 MG PO (08:41)
--- NOTE | 2023-05-16 11:38 | PDOC.CMPRO ---
Date of service: 05/16/23 Time of Service: 11:39 Care Management Progress Note Progress Note Text Progress Note Text: S/O: CM was asked to meet with Ed's son Susie and Dr. Thomas this afternoon. A palliative care consult had been ongoing for about an hour but was interrupted when Ed was taken to radiology. A repeat MRI of his brain was ordered as he was noted to have complete right hemiplegia today. There was no evidence of a new infarct. CM discussed various options for discharge planning with Susie and Dr. Thomas. Susie expressed a desire to have his father go to an acute rehab facility if possible. [facility]errals were sent to [facility]. CM continues to follow. A: 73 year old male admitted to [facility] 05/13/23 for CVA P: Ed participated in a family meeting with Palliative Care and his son Susie today. See Dr. Thomas's note for details. CM also met with Susie and to discuss discharge plans and referrals were sent to the 3 acute rehab facilities in this area. CM will continue to support Ed and his discharge planning needs.
--- NOTE | 2023-05-16 12:19 | W.PALPGNOTE ---
Objective Last Vital Signs Temp 36.3 C L 05/16/23 11:16 Pulse 60 05/16/23 11:16 Resp 18 05/16/23 04:05 BP 157/77 H 05/16/23 11:16 Pulse Ox 95 05/16/23 11:16 Objective Narrative Objective Narrative: Chest/Abd/Pelvis CT to r/o malignancy: IMPRESSION: Chest: Emphysematous changes. No acute abnormality. Abdomen and pelvis: Mildly cirrhotic appearing liver. Mesenteric varices. Mild biliary dilatation without visible obstructing stone or mass. Left external iliac and inguinal lymph nodes. Right adrenal mass was present previously but has increased in size. The findings could represent an adenoma. MRI could be considered for further evaluation. Progress Note: Quality Stroke Onset of Symptoms Date: 05/06/23 Rehab Services Assessed: Activities of daily living assessment
--- NOTE | 2023-05-16 13:12 | PGE_ITS ---
Date of Service Date of service: 05/16/23 Time of Service: 13:12 Assessment and Plan Assessment and plan (1) Acute ischemic stroke: Status: Acute (2) Left carotid artery occlusion: Status: Acute Assessment and plan: #1. Ischemic stroke manifested by global aphasia, right face and dense right arm weakness, dysarthria, suspected dysphagia, and apparent R homonymous hemianopsia. 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 But he was also found to have a L cerebellar infarct as well. The etiology of this stroke is not clear. Now with complete R hemiplegia. No hypotension. Lowest BP in last 24 hours was 124/67. Recommend updated MRI brain stat. Continue plan/medications as below for now. Work-up: -Telemetry with 30 day electronic device monitor on discharge -consider SILVIANO -consider CTA C/A/P given multivessel thrombosis and stroke Medications: -aspirin 81mg + clopidogrel 75mg daily for secondary stroke prevention x90 days, then clopidgorel 75mg daily alone thereafter -atrovastatin 80mg daily for secondary stroke prevention - ok to titrate at d/c for goal LDL <70 Other: -Allow permissive hypertension -Physical therapy for leg weakness, gait training -Occupation therapy for upper extremity weakness, activities of daily living -Speech therapy for speech and swallow; he has a lot of agitation from his aphasia, was unwilling to use his communication board with me today He will need neurology follow-up at discharge. Subjective Subjective Interval history since last seen: Mr. Caballero now with seeming flaccid R hemiparesis. Unclear onset as he is not always willing to cooperate with exams. Today when I ask him to move his right side, he just says no. He remains globally aphasic. Exam Narrative Exam Narrative: Physical Exam: Constitutional: Patient of apparent stated age, well nourished, well developed, no acute distress Neuro: MS/Language/Speech: Alert, globally aphasic - able to follow simple commands some of the time; unable to name or repeat; mild dysarthria Motor: Flaccid R hemiparesis. Says no when I ask him to move his R arm or leg. Appears full strength on L but still difficult to do formal strength testing on L due to aphasia. Sensation: does not withdraw to nailbed pressure in R hand; unable to test R leg as he has no toes Reflexes: hyporeflexic throughout; toes neutral bilaterally Coordination: no ataxia Gait: not safe to test currently Objective Last Vital Signs Temp 97.3 F L 05/16/23 11:16 Pulse 60 05/16/23 11:16 Resp 18 05/16/23 04:05 BP 157/77 H 05/16/23 11:16 Pulse Ox 95 05/16/23 11:16 Progress Note: Quality Stroke Onset of Symptoms Date: 05/06/23 Rehab Services Assessed: Activities of daily living assessment Time Spent with Patient Time Spent with Patient: 25-34 minutes Time was spent: preparing to see the patient(eg.review tests), referring, communicating with other health healthcare financial analyst and counseling the patient
--- NOTE | 2023-05-16 15:24 | PCPN_ITS ---
Date of service: 05/16/23 Time of Service: 12:45 Assessment and Plan Assessment and plan (1) Palliative care patient: Status: Acute (2) Acute ischemic stroke: Status: Acute Assessment and plan: Reviewed diagnosis, stuttering waxing and waning symptoms, current work-up with patient and his son. Questions answered (3) Osteomyelitis of second toe of right foot: Status: Acute Assessment and plan: As per son, he is being seen regularly at the [facility] in [place]. He has been getting intermittent courses of 1 to 2 weeks of antibiotics. The son named Bactrim and cefpodoxime as recent medications. Most recently about 1 to 2 weeks ago he was started on Bactrim twice daily.; Son showed me a picture of this newest bottle. Patient does not think that his feet have been examined by wound nurse. Suggest: -Examination of feet by hospitalist/wound care nurse. -Consider phone consultation with [facility] wound care clinic -Decision made based on above as to whether to start a course of antibiotics. -What ever findings and decisions (to start antibiotics or not), please share decision and explained to patient and family (4) Discharge planning issues: Status: Acute Assessment and plan: Son thinks his father will want to return home rather than go to rehab. Their understanding was that rehab would be for 100 days . Lisa from case management was able to explain various options including acute rehab, subacute rehab, home health services and PT/OT/APPRAISER IRRIGATION TAX in outpatient office. Discussed what was entailed with each level. Explained that acute rehab and subacute rehab are usually shorter. Susie thought that his father would be willing to go to acute or subacute rehab for 2 weeks and then reevaluate. (5) Generalized anxiety disorder: Status: Acute Assessment and plan: Susie and patient confirmed that he has been taking clonazepam 1 mg twice a day on a regular basis for long-term, at least a year. He has not been receiving this medication here. Episode last night where patient became very angry may reflect him not receiving this medication. Need to weigh his chronic use of this medication against potential short-term and long-term side effects. Patient expresses that he very much wants to resume receiving this medication. Suggest: -Resuming clonazepam at 0.5 mg twice daily to start with. (6) Advanced care planning/counseling discussion: Status: Acute Assessment and plan: 1.Selection of Healthcare Agent: We revisited selection of healthcare agent. He again unequivocally wants his son Susie to be his primary HCA. He again does not want daughter Alejandra to be a designated healthcare agent but is willing to allow her to be present when decisions are being made should that be needed. He wants his brother Chente Caballero to be alternate HCA. Forms are completed. They are witnessed and signed (he has to use his left hand because of his right arm dense paresis. 2: Goals of care: His goal is to return home and be as independent as possible. 3.Limitations of Treatment: Susie reports that patient would want to be a full code. He shares stories that his brother was switched to no code by his healthcare agent, who was a friend. Patient was very upset about this. On the other hand, he believes that his dad would not want to linger and if there is no hope of recovery, would want to receive comfort measures only. Due to patient's communication difficulty, unable to explore this further with patient today. He remains a full code. Total of 46 minutes or more spent today on Advance Care Planning. Patient and family participated voluntarily. Advance care planning may include (not limited to) explanation and discussion of advance directives, choosing and appointing healthcare agents, alternatives to various ACP tools, discussion of (and if indicated, completion of) COLST form, discussion of patient's values and overall goals for treatment, palliative and disease directive care options, ways to avoid hospital readmission including hospice discussions, care preferences should the patient's several other adverse health events. See today's palliative care note for additional information. Prolonged time needed today because of patient's difficulty with communication, thus discussion taking longer than usual. Subjective Subjective Interval history since last seen: Mr. Lama is a 73-year-old gentleman from [facility] who is admitted?to [facility] 3 days ago with?Left imspgh-hyxfjajj-deeajbvo ischemic stroke manifested by expressive aphasia, right face and dense right arm weakness, dysarthria, Other medical problems include poorly controlled diabetes (last A1c in early April over 9%, status post toe amputations and lower leg ulcers), ongoing foot ulcers (managed by weeks clinic) hypertension, smoking, on methadone for opioid use disorder, hypothyroidism, ADHD. Today held a family meeting. The patient was present and participated along with his son Susie. Susie's 3 children were playing in the room during her meeting Care Team: Primary Care physician: Christiano ROCHE treatment: [facility] Neurology: Dr. Rodriguez Podiatry (was Dr. Quintana, now will be Abdiel ) Diabetic foot ulcers: [facility] wound clinic Social HX: Updated social history with additional information from son. They are currently sharing a mobile home in [facility]. Son Susie lives on one half of a large mobile home with 9-year-old son Jun. Susie also has 50% custody of 2 younger children. Susie reports that patient is largely independent: Independent of all ADLs and IADLs prior to 2 weeks ago. Patient was in charge of getting 9-year-old grandchild dressed, fed into the [employer] on time. Then also picked up Jun from [employer] after school, helped him with his homework. 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 He enjoyed reading, watching TV. He was able to prepare meals and sandwiches. He was still able to drive. His car has not been working. He did borrow his [employer]'s car or took RCT to appointments Function: As per chart, previously living independently prior to CVA Ambulation:Chart reports that patient was walking with cane prior to this stroke. ADLs: Independent as per son iADLs: Independent as per son Hearing: Unknown Vision: Unknown Spiritual history: Unknown Palliative review of systems: Pain: none Dyspnea:None GI symptoms: No dysphagia, says he is eating. Appetite:down a bit Depression: Not queried Anxiety: Frustrated Emotional Distress: Spiritual/Existential Distress: Labs: Cr: Ranges 1.0 Liver panel: Normal Albumin: CBC: Borderline anemia Advanced Care Planning: Advanced Directive: Neither patient nor son thinks he has 1. Health Care Agent: Reviewed HCA form. Patient repeated same choices as yesterday. Healthcare agent will be Susie Caballero. Alternate will be patient's brother Chente Caballero. COLST: None Limitations: Exam Narrative Exam Narrative: Patient is alert and engages. Says yes and now. Can start sentences but has difficulty with many words. When given a choice of words, he will select the one he believes is correct. Unfortunately his right upper arm has no movement today, much worse than when I saw him 2 days ago. I did not observe him walking. He seen pleasant, cooperative and interactive. Occasionally smiled Objective Last Vital Signs Temp 36.3 C L 05/16/23 15:18 Pulse 61 05/16/23 15:18 Resp 18 05/16/23 04:05 BP 165/74 H 05/16/23 15:18 Pulse Ox 97 05/16/23 15:18 Progress Note: Quality Stroke Onset of Symptoms Date: 05/06/23 Rehab Services Assessed: Activities of daily living assessment
--- NOTE | 2023-05-16 16:15 | PTTR_ITS ---
Date of service: 05/16/23 Time of Service: 15:17 PT Notes Visit Reasons: Cerebrovascular accident Inpatient Physical Therapy Treatment Note [facility] Date: 05/16/23 PRECAUTIONS: Fall, standard, activity as tolerated. SUBJECTIVE: Patient states I have a problem repeatedly, unable to say more. Appears pleased he was able to say that much clearly. Is frustrated when he can't find the words he wants. Supine in bed, agreeable to therapy. OBJECTIVE: PAIN: indicates no when asked about pain throughout the session. BED MOBILITY/TRANSFERS Rolling L/R: sba Supine-sit: min assist to maneuver right leg. Sit-supine: min assist to maneuver right leg Sit-stand: CGA to min assist Stand-sit: CGA to min assist NEURO EKATERINA: Patient participates in seated and standing static balance training as well as seated dynamic balance training. Standing balance very poor, requiring max assist of this therapist to remain upright. Sitting balance fair+, and patient experiments with weight shifting, pushing the boundaries of how far he is able to lean and still recover, both with and without support from his LUE. Attempted to soccer coach patient on using LUE over RUE on LLE to push when standing, patient very clearly asks Why?, indicates understanding of neuroplasticity explanation, then immediately reverts to LUE on the walker to stand up. THERACT: Bed mobility training including rolling to sit up and using unaffected leg to maneuver affected leg. Patient able to pull up to long sitting in bed unassisted, tends to grab right sock in left hand to maneuver left LE. Issued leg entry level installation technician, educated patient on its use, demonstrated use. Patient seems very excited by leg entry level installation technician, return demonstration <50%. Revisit tomorrow. ASSESSMENT: Patient works very hard and shows good rehab potential. Patient frustrated and tearful when unable to express himself or get his body to work the way he expects it to. PLAN: Continue treatment per plan of care until patient achieves placement in acute stroke rehab. TREATMENT CODE/TIME: 62190 Neuro ekaterina 30 minutes, 34806 Ther Act 24 minutes beginning at 15:17
[2023-05-16] MEDS: clonazePAM 0.5 MG TAB PO ×2 (16:20→20:51)
[2023-05-16] MEDS: Enoxaparin 40 MG/0.4 ML SYR SC (16:20)
--- NOTE | 2023-05-16 17:46 | W.PM.PROGNOT ---
Date of Service Date of service: 05/16/23 Time of Service: 17:46 Assessment and Plan Assessment and plan (1) Acute cerebrovascular accident (CVA): Status: Acute Assessment and plan: Brain MRI shows L cerebellar and L parietal lobe infarcts. Complete right hemiplegia noted today so repeat MRI obtained. No new stroke. Continue aspirin, plavix, statin. Echo shows LVEF of 55%, Normal size and function of the R side, and no significant valvular disease. CT chest/abdomen/pelvis to r/o malignancy (multiterritory infarcts could be connected to an underlying malignancy) did not show any malignancy. Neurology following. Continue working with PT, OT, speech. Seen by palliative. Remains full code. Could benefit from acute rehab. 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 Continue basal bolus regimen. This may need to be uptitrated once the patient is permitted a diet. (4) Substance abuse in remission: Status: Acute Assessment and plan: Continue methadone. Dose verified. (5) Dysphagia: Status: Acute Assessment and plan: Diet was upgraded to soft/bite sized/thin. CT of the chest w/o infiltrates/consolidations. + emphysematous changes. (6) Expressive aphasia: Status: Acute Assessment and plan: Continue working with speech therapy Improving. (7) Toe osteomyelitis, right: Assessment and plan: He has been seeing wound care at [facility]. Prescribed Bactrim; continue. Wound care nurse consulted. (8) DVT prophylaxis: Status: Acute Assessment and plan: SC enoxaparin (9) Discharge planning issues: Status: Acute Assessment and plan: Full code Continues to require hospitalization Subjective Subjective Patient reports: no new complaints and afebrile; denies nausea, vomiting or shortness of breath Interval history since last seen: No agitation noted today. Exam Narrative Exam Narrative: General: male who is awake, answers yes/no, but also attempting some sentences. Cooperative. HEENT: EOMI, MMM, sclera clear. Heart: RRR, no murmur Lungs: scattered rhonchi B. Abdomen: soft, nontender, nondistended Extremities: no edema BLEs Neuro: R arm dense weakness. Expressive aphasia improving; able to mouth some words. LLE weak compared to RLE Objective Last Vital Signs Temp 36.3 C L 05/16/23 15:18 Pulse 61 05/16/23 15:18 Resp 18 05/16/23 04:05 BP 165/74 H 05/16/23 15:18 Pulse Ox 97 05/16/23 15:18 Progress Note: Quality Stroke Onset of Symptoms Date: 05/06/23 Rehab Services Assessed: Activities of daily living assessment Time Spent with Patient Time Spent with Patient: 25-34 minutes Time was spent: preparing to see the patient(eg.review tests), obtaining and/or reviewing separately otained hiistory, ordering medications,tests, procedures, referring, communicating with other health janitor caretaker, indepentently interpreting results and counseling the patient
--- NOTE | 2023-05-16 19:51 | WOUNDCONS ---
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 Hemoglobin A1c was 9.3% on 05/03/2023. He has a past history of all the toes on the right foot being amputated and the great toe on the left being removed. At this time he present to the hospital with an Acute cerebrovascular accident (CVA): Multiple infarcts affecting the right side. Likely secondary to the occlusion of the left carotid artery. He also has a diabeic foot ulcer on the plantar portion of the left foot at the base of the second toe. It has a very foul odor. WBC is within normal range. No other inflammatory marker results noted in current chart. Is on po Bactrim DS for antibiotics. 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 Amputation of toes of right foot (Acute) Hyperlipidemia (Acute) Ganglion cyst of finger of right hand (Acute) Onychomycosis (Acute) Erectile dysfunction (Acute) Chronic pain (Chronic) ADHD (Acute) Polyp of colon, adenomatous (Acute) Adenoma of right adrenal gland (Acute) Diverticulosis (Acute) Asthma (Chronic) Staphylococcus epidermidis bacteremia (Acute) Cognitive impairment (Acute) Acute cerebrovascular accident (CVA) (Acute) Hepatitis C Anxiety - Wound Left plantar foot Wound Type: Diabetic Ulcer Wound General Appearance: Reddened, Draining, Necrotic, Muscle Visible Wound Bed Greatest Portion: Yellow (Slough) Wound Bed Lesser Portion: Red (Granulation) Wound Surrounding Tissue Appearance: Bright Red, Blanched/Dull, Edematous Percent of Wound Bed Granulated/Red: 20 Percent of Wound Bed Slough/Yellow: 80 Percent of Wound Bed Eschar/Black: 0 Wound Length: 0.79 in (2cm) Wound Width: 0.63 in (1.6cm) Wound Depth: 0.12 in (0.3cm) Wound Drainage Amount: Moderate Wound Drainage Odor: Strong, Foul Odor, Pungent Wound Drainage Description: Bloody, Purulent Wound Topical Solution/Irrigant: Saline Irrigant, Other (Anasept) Wound Debridement Method: Conservative Sharp (curette), Other (Debrisoft sponge) Wound Debridement Amount of Tissue Removed: Moderate Additional Other Comments: Partial top layer of blanched dull nonviable tissue over the callous removed. Callous remains thick blanched and nonviable. - MICHELLE Left MICHELLE: 1.05 Right MICHELLE: 1.05 Blood Pressure: 172/89 Pulse: 72 - Pain Pain Level: 0 Pain Scale Used: Adult Pain Description: Dull, Numbness Used a curette to removed top layer of calloused skin. Cleaned the remaining portion of the wound using a Debrisoft sponge. Able to remove layers of exudate crust from surrounding area. Pt and MD both informed that pt requires a podiatry consult for further debridement. Have applied Actisorb silver to the wound to help decrease the bacterial burden. Will order Santyl to begin tomorrow to help chemically debride the wound while awaiting for podiatry follow up as this is not currently available here. - Photo Photo: - Treatment/Dressing Change Cleanse With: Anasept Dressing Types: Mepilex w/Border, Other (Actisorb silver) Dressing Comment: Used silver dressing to decrease the bacterial burden covered by mepilex. Starting tomorrow, will order for Santyl dressing changes daily. - Nutrition Education Reviewed Nutrition Education: Yes Note: Advised that controlling his diabetes and having better control of his blood sugars will help in wound healing. - Recomendation Recomendation:: Plantar left foot wound: 1. Apply Anasept spray to wound and allow to dwell for two minutes. 2. Pat dry. 3. Apply nickel thickness of Santyl to the wound bed. 4. Cover with Mepilex with border dressing. 5. Change daily and prn. Physcian/Nurse Practioner Notified: Yes Referrals: Dietary, Podiatry Treatment Time - Time Total Time Spent with Patient: 60 minutes - Patient Will be Seen Weekly Treatment: daily - For: For:: 2 weeks
[2023-05-16] MEDS: Sulfameth/Trimeth DS TAB 1 TAB PO (20:51)
--- NOTE | 2023-05-16 22:50 | PT.INTREAT ---
Date of service: 05/16/23 Time of Service: 12:01 PT Notes Visit Reasons: Cerebrovascular accident Inpatient Physical Therapy Treatment Note [facility] Date: 05/16/23 PRECAUTIONS: Fall. Standard. Activity as tolerated. SUBJECTIVE: Appeared withdrawn and apathetic. Frustrated about not being to sit up straight today. Complains of fatigue and weakness. Agreed to be sat up on chaor for lunch. OBJECTIVE: ? PAIN: Denies ? BED MOBILITY/TRANSFERS? Supine-sit: maximal assist? Sit-supine: moderate assist of 2 ? THERA ACT: Worked on stabilizing static sitting and increasing sitting tolerance. Needed assist of 2 to prevent falling to the R and forward while at edge of bed. ? ASSESSMENT:? Marked decrease in tone in the R UE and LE, densely flaccid compared to day of eval. Unsafe to be sat up in bed without assist of 2. Responses appeared to be delayed and decreased compared to day of evaluation. Nurses Ankit and primary Nurse Sylvie updated. PLAN: Consult hospitalist/neurologist and update about possible evolution of stroke process. Progress strength, balance, and mobility as tolerated when cleared to proceed. TREATMENT CODE/TIME: 98965 x 14 minutes beginning at 12:01 PM.
[2023-05-17] VITALS (10 sets, daily range): BP systolic 121–173; BP diastolic 56–71; PULSE 65–74; RESP 12–22; TEMP 36.6–37; O2SAT 92–95
[2023-05-17 06:59] LABS: Anion Gap 4.3 mmol/L (3-11); BUN 22 mg/dL (7-18); C-Reactive Protein 8.21 mg/dL (0.0-0.3); CO2 30.7 mmol/L (21.0-32.0); Calcium 8.6 mg/dL (8.5-10.1); Chloride 104 mmol/L (98-107); Estimated GFR 80.47 (mL/min/1.73m2); Glucose 136 mg/dL (74-106); Potassium 4.4 mmol/L (3.5-5.1); Sodium 139 mmol/L (136-145)
[2023-05-17] MEDS: Clopidogrel 75 MG TAB PO (08:26)
[2023-05-17] MEDS: Aspirin 81 MG CHEW CH (08:26)
[2023-05-17] MEDS: amLODIPine 5 MG TAB PO (08:26)
[2023-05-17] MEDS: clonazePAM 0.5 MG TAB PO ×2 (08:26→21:48)
[2023-05-17] MEDS: Sulfameth/Trimeth DS TAB 1 TAB PO ×2 (08:26→21:48)
[2023-05-17] MEDS: Gabapentin 800 MG TAB PO ×4 (08:26→21:48)
[2023-05-17] MEDS: Carvedilol 12.5 MG TAB PO (08:26)
[2023-05-17] MEDS: Insulin Glargine 300 UNITS/3 ML PEN 30 UNITS SC (08:27)
[2023-05-17] MEDS: Magnesium Oxide 400 MG TAB PO (08:27)
[2023-05-17] MEDS: Insulin Aspart 300 UNITS/3 ML PEN SC ×3 (08:27→17:10)
[2023-05-17] MEDS: Methadone Liquid 10 MG/ML 225 MG PO (08:28)
--- NOTE | 2023-05-17 11:13 | PTTR_ITS ---
Date of service: 05/17/23 Time of Service: 10:16 PT Notes Visit Reasons: Cerebrovascular accident Inpatient Physical Therapy Treatment Note [facility] Date: 05/17/23 PRECAUTIONS: Fall, standard, activity as tolerated, post op shoes in place for all out of bed activities. SUBJECTIVE: Patient supine in bed, agreeable to therapy. Still experiencing difficulty with expressive speech, still expressing a lot of frustration with that. OBJECTIVE: PAIN: denies pain BED MOBILITY/TRANSFERS Rolling L/R: min assist Supine-sit: min assist and max cueing to control RUE Sit-supine: min assist to get RLE into the bed Sit-stand: Min to max assist, verbal cues for hand placement help, also verbal cues for patient to stop and make sure he's paying attention to what he's doing. Stand-sit: CGA to Max assist Bed-Chair: Max assist, with verbal and tactile cues for limb placement. Chair-bed: Max assist, with verbal and tactile cues for limb placement. GAIT Assistive Device: adán walker Weight bearing: limited by hemiplegia Assist: max Distance: 3 feet Deviation: LLE flaccid, can take steps with that knee blocked, also requires assist to advance that leg. VITALS: monitored via telemetry THEREX: Patient participates in sit to stands x 10 THER ACT: Patient participates in transfer training including supine to sit, sit to stand, bed to chair, chair to bed. Patient requires frequent cueing, both tactile and verbal, and is both unsteady and impulsive. ASSESSMENT: Patient requires at least 2 staff to transfer safely. PLAN: Continue strengthening per plan of care until patient discharges to a longterm facility. TREATMENT CODE/TIME: 26079 Ther Ex 20 minutes, 06324 Ther Act 32 minutes beginning at 10:16
--- NOTE | 2023-05-17 13:54 | CHAPLAIN ---
I had a brief visit with Darwin while he was having lunch. I explained my role and offered support.
--- NOTE | 2023-05-17 14:20 | CMPROGNOTE_ITS ---
Date of service: 05/17/23 Time of Service: 14:20 Care Management Progress Note Progress Note Text Progress Note Text: S/O: Ed remains inpatient; referrals were sent to [facility] and [facility] called today to report anticipating offering an admission early next week. CM continues to follow. A: 73 year old male admitted to [facility] 05/13/23 for CVA P: Ed?participated in a family meeting with Palliative Care and his son Susie today. See Dr. Thomas's note for details. CM also met with Susie and to discuss discharge plans and as a result, faxed referrals to acute rehab facilities for review. CM will continue to support Ed and his discharge planning needs.
[2023-05-17] MEDS: Enoxaparin 40 MG/0.4 ML SYR SC (17:10)
--- NOTE | 2023-05-17 17:21 | PT.INNT ---
Date of service: 05/17/23 Time of Service: 16:22 PT Notes Visit Reasons: Cerebrovascular accident Patient refuses therapy, states he is too tired. Appears preoccupied and concerned by his new IV access in the middle of his left forearm.
--- NOTE | 2023-05-17 17:29 | PGE_ITS ---
Date of Service Date of service: 05/17/23 Time of Service: 17:29 Assessment and Plan Assessment and plan (1) Acute cerebrovascular accident (CVA): Status: Acute Assessment and plan: Brain MRI shows L cerebellar and L parietal lobe infarcts. Complete right hemiplegia noted today so repeat MRI obtained. No new stroke. Continue aspirin, plavix, statin. Echo shows LVEF of 55%, Normal size and function of the R side, and no significant valvular disease. CT chest/abdomen/pelvis to r/o malignancy (multiterritory infarcts could be connected to an underlying malignancy) did not show any malignancy. Neurology recommendations appreciated. Continue working with PT, OT, speech. Seen by palliative. Remains full code. He has been accepted at [facility] for acute rehab. 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 Adjust basal insulin. (4) Substance abuse in remission: Status: Acute Assessment and plan: Continue methadone. Dose verified. (5) Dysphagia: Status: Acute Assessment and plan: Diet was upgraded to soft/bite sized/thin. CT of the chest w/o infiltrates/consolidations. + emphysematous changes. (6) Expressive aphasia: Status: Acute Assessment and plan: Continue working with speech therapy Improving. (7) Toe osteomyelitis, right: Assessment and plan: He has been seeing wound care at [facility]. Prescribed Bactrim; continue. Wound care nurse consulted. (8) DVT prophylaxis: Status: Acute Assessment and plan: SC enoxaparin (9) Discharge planning issues: Status: Acute Assessment and plan: Full code Continues to require hospitalization Subjective Subjective Patient reports: no new complaints, tolerating a regular diet and afebrile; denies nausea, vomiting or shortness of breath Interval history since last seen: Worked with PT today. Exam Narrative Exam Narrative: General:Sitting up in bed eating ice cream. NAD. Cooperative. HEENT: EOMI, MMM, sclera clear. Heart: RRR, no murmur Lungs: scattered rhonchi B in upper airway. Abdomen: soft, nontender, nondistended Extremities: no edema BLEs Neuro: R arm dense weakness. Expressive aphasia; able to mouth single words. LLE weak compared to RLE Objective Last Vital Signs Temp 37 C 05/17/23 15:03 Pulse 74 05/17/23 15:03 Resp 18 05/17/23 15:03 BP 150/64 H 05/17/23 15:03 Pulse Ox 92 05/17/23 15:03 Laboratory Results - last 24 hr 05/17/23 06:02 Sodium 139 Potassium 4.4 Chloride 104 Carbon Dioxide 30.7 Anion Gap 4.3 BUN 22 H Creatinine 1.0 Est GFR (CKD-EPI 2020) 80.47 Glucose 136 H Calcium 8.6 C-Reactive Protein 8.21 H Progress Note: Quality Stroke Onset of Symptoms Date: 05/06/23 Rehab Services Assessed: Activities of daily living assessment Time Spent with Patient Time Spent with Patient: 25-34 minutes Time was spent: preparing to see the patient(eg.review tests), obtaining and/or reviewing separately otained hiistory, ordering medications,tests, procedures, referring, communicating with other health career placement specialist, indepentently interpreting results and counseling the patient
[2023-05-17] MEDS: metFORMIN C.R. 500 MG TABCR PO (21:48)
[2023-05-18] VITALS (9 sets, daily range): BP systolic 124–163; BP diastolic 61–81; PULSE 57–79; RESP 16–20; TEMP 36.3–37.6; O2SAT 92–94
[2023-05-18 06:22] LABS: Abs Immature Grans 0.02 10^3/uL (0.0-0.06); Absolute Basophil Count 0.05 10^3/uL (0.0-0.2); Absolute Eosinophil Count 0.47 10^3/uL (0.0-0.7); Absolute Lymphocyte Count 1.37 10^3/uL (1.2-3.4); Absolute Monocyte Count 0.84 10^3/uL (0.1-0.8); Basophils % 0.6; Eosinophils % 5.8; HCT 35.4 % (40.0-50.0); HGB 11.3 g/dL (13.5-17.5); Immature Grans % 0.2; MCHC 31.9 % (32.0-36.0); MCV 88 fL (80-95); MPV 10.5 fL (8.0-11.0); Monocytes % 10.4; Platelet Count 263 10^3/uL (130-400); RBC 4.03 10^6/uL (4.36-5.78); RDW 14.3 % (11.8-14.1); WBC 8.05 10^3/uL (4.4-10.8)
[2023-05-18] MEDS: clonazePAM 0.5 MG TAB PO ×2 (08:31→21:54)
[2023-05-18] MEDS: Gabapentin 800 MG TAB PO ×4 (08:31→21:55)
[2023-05-18] MEDS: metFORMIN C.R. 500 MG TABCR PO ×2 (08:32→21:55)
[2023-05-18] MEDS: Clopidogrel 75 MG TAB PO (08:32)
[2023-05-18] MEDS: Magnesium Oxide 400 MG TAB PO (08:32)
[2023-05-18] MEDS: Sulfameth/Trimeth DS TAB 1 TAB PO ×2 (08:32→21:55)
[2023-05-18] MEDS: Aspirin 81 MG CHEW CH (08:32)
[2023-05-18] MEDS: amLODIPine 5 MG TAB PO (08:32)
[2023-05-18] MEDS: Carvedilol 12.5 MG TAB PO (08:32)
[2023-05-18] MEDS: Insulin Glargine 300 UNITS/3 ML PEN 35 UNITS SC (08:33)
[2023-05-18] MEDS: Insulin Aspart 300 UNITS/3 ML PEN SC ×3 (08:33→17:22)
[2023-05-18] MEDS: Methadone Liquid 10 MG/ML 225 MG PO (08:34)
[2023-05-18] MEDS: Normal Saline Flush 10 ML SYR IVP (08:37)
[2023-05-18] MEDS: Polyethylene Glycol 3350 17 GM PACKET PO (08:46)
--- NOTE | 2023-05-18 12:36 | PT.INTREAT ---
Date of service: 05/18/23 Time of Service: 11:55 PT Notes Visit Reasons: Cerebrovascular accident Inpatient Physical Therapy Treatment Note [facility] Date: 05/18/2023 PRECAUTIONS: Fall, standard, activity as tolerated, post op shoes in place for all out of bed activities. SUBJECTIVE: Continues to be very frustrated with inability to express himself. Did indicate that his right shoulder bothers him if elbow is attempted to be moved. Also, expressed that it was time for lunch once we finished chair exercises by motioning to clock. I asked if he was hungry and he indicated he was. Did often swear several times while attempting to tell me something and not able to get his words out. We did try using communication board but this was also unsuccessful. Did indicate that he likes the assistive device for helping with right LE when getting in/out of bed, when I asked by nodding head. OBJECTIVE: ? PAIN: Placed left hand on right shoulder when attempting to passively have patient bend and straighten right elbow today. When asked if this area is painful when moved indicated by nodding head. ? BED MOBILITY/TRANSFERS? All bed mobility was performed with nursing staff prior to my arrival today. Nurses Bernadette and Karma stated this was a difficult transfer requiring 2-3 people. Unable to bring himself from supine to sit or sit to stand without significant assist and max assist with standing due to excessive leaning. GAIT? Transfer bed to chair with nursing prior to my arrival. ? THEREX: Performed seated exercises for left UE/ LE and AAROM for right LE / PROM to right hand and elbow. Pain with movement of right elbow and shoulder, so held on shoulder mobility due to this. Able to perform left LE AROM with verbal and tactile cueing for ankle pumps, LAQs, seated hip abd/add, seated hip flexion and quad sets for 10 reps each, AAROM of right LE included Ankle pumps, LAQs, hip flexion and abd/adduction for 10 reps each. Unable to perform quad sets with right despite assist and cueing. AROM of left UE included bicep curls, shoulder IR/ER and shoulder flexion to 100 degrees x 10 reps each with tactile and verbal cueing. Attempted to passively range right UE, but only able to work on digit flexion/ extension x 10 reps and elbow flexion extension for 5 reps before patient indicated discomfort with movement of right elbow.? Due to limited available assist and patient eager for lunch held on sit to stand transfers today.? Chair alarm set prior to leaving room. ? ASSESSMENT:? Patient continues to require at least 2-3 staff to transfer safely. Communication still very frustrating for him. Minimal ability to express answers to questions. PLAN: Continue strengthening per plan of care, until patient discharges to a long-term facility. TREATMENT CODE/TIME: 19132 Ther Ex 15 minutes, 11:55 to 12:10
[2023-05-18] MEDS: Enoxaparin 40 MG/0.4 ML SYR SC (15:52)
--- NOTE | 2023-05-18 17:45 | W.PM.PROGNOT ---
Date of Service Date of service: 05/18/23 Time of Service: 17:46 Assessment and Plan Assessment and plan (1) Acute cerebrovascular accident (CVA): Status: Acute Assessment and plan: Brain MRI shows L cerebellar and L parietal lobe infarcts. Complete right hemiplegia noted today so repeat MRI obtained. No new stroke. Continue aspirin, plavix, statin. Echo shows LVEF of 55%, Normal size and function of the R side, and no significant valvular disease. CT chest/abdomen/pelvis to r/o malignancy (multiterritory infarcts could be connected to an underlying malignancy) did not show any malignancy. Neurology recommendations appreciated. Continue working with PT, OT, speech. Seen by palliative. Remains full code. He has been accepted at [facility] for acute rehab. (2) Left carotid artery occlusion: Status: Acute Assessment and plan: As above Vascular follow up (3) 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: Status: Chronic Assessment and plan: BGs better controlled today. Cont to monitor. (4) Substance abuse in remission: Status: Acute Assessment and plan: Continue methadone. Dose verified. (5) Dysphagia: Status: Acute Assessment and plan: Diet was upgraded to soft/bite sized/thin. CT of the chest w/o infiltrates/consolidations. + emphysematous changes. (6) Expressive aphasia: Status: Acute Assessment and plan: Continue working with speech therapy Improving. (7) Toe osteomyelitis, right: Assessment and plan: He has been seeing wound care at [facility]. Prescribed Bactrim; continue. Wound care nurse consulted. (8) DVT prophylaxis: Status: Acute Assessment and plan: SC enoxaparin (9) Discharge planning issues: Status: Acute Assessment and plan: Full code Continues to require hospitalization Subjective Subjective Patient reports: no new complaints and afebrile; denies nausea, vomiting or shortness of breath Exam Narrative Exam Narrative: General: Asleep. Arousable. HEENT: EOMI, MMM, sclera clear. Heart: RRR, no murmur Lungs: scattered rhonchi B in upper airway. Abdomen: soft, nontender, nondistended Extremities: no edema BLEs Neuro: R arm dense weakness. Expressive aphasia; able to mouth single words. LLE weak compared to RLE Objective Last Vital Signs Temp 36.7 C 05/18/23 15:37 Pulse 66 05/18/23 15:37 Resp 16 06/24/23 15:37 BP 134/71 05/18/23 15:37 Pulse Ox 92 05/18/23 15:37 Laboratory Results - last 24 hr 05/18/23 06:10 WBC 8.05 RBC 4.03 L Hgb 11.3 L Hct 35.4 L MCV 88 MCH 28.0 MCHC 31.9 L RDW 14.3 H Plt Count 263 MPV 10.5 Immature Gran % 0.2 Neutrophils % 66.0 Lymphocytes % 17.0 Monocytes % 10.4 Eosinophils % 5.8 Basophils % 0.6 Nucleated RBC % 0.0 Absolute Neutrophils 5.30 Absolute Lymphocytes 1.37 Absolute Monocytes 0.84 H Absolute Eosinophils 0.47 Absolute Basophils 0.05 Progress Note: Quality Stroke Onset of Symptoms Date: 05/06/23 Rehab Services Assessed: Activities of daily living assessment Time Spent with Patient Time Spent with Patient: <25 minutes Time was spent: preparing to see the patient(eg.review tests), ordering medications,tests, procedures, referring, communicating with other health wound care technician and indepentently interpreting results
[2023-05-19] VITALS (8 sets, daily range): BP systolic 116–169; BP diastolic 53–67; PULSE 63–87; RESP 15–22; TEMP 36.2–37.6; O2SAT 90–98
[2023-05-19] MEDS: Clopidogrel 75 MG TAB PO (08:10)
[2023-05-19] MEDS: Gabapentin 800 MG TAB PO ×4 (08:10→19:48)
[2023-05-19] MEDS: Sulfameth/Trimeth DS TAB 1 TAB PO ×2 (08:10→19:48)
[2023-05-19] MEDS: clonazePAM 0.5 MG TAB PO ×2 (08:10→19:49)
[2023-05-19] MEDS: Aspirin 81 MG CHEW CH (08:10)
[2023-05-19] MEDS: amLODIPine 5 MG TAB PO (08:10)
[2023-05-19] MEDS: Magnesium Oxide 400 MG TAB PO (08:10)
[2023-05-19] MEDS: Methadone Liquid 10 MG/ML 225 MG PO (08:11)
[2023-05-19] MEDS: Polyethylene Glycol 3350 17 GM PACKET PO (08:11)
[2023-05-19] MEDS: Normal Saline Flush 10 ML SYR IVP (08:11)
[2023-05-19] MEDS: Carvedilol 12.5 MG TAB PO (08:11)
[2023-05-19] MEDS: Docusate Sodium 100 MG CAP PO (08:11)
[2023-05-19] MEDS: metFORMIN C.R. 500 MG TABCR PO ×2 (08:11→19:48)
[2023-05-19] MEDS: Insulin Aspart 300 UNITS/3 ML PEN SC ×3 (08:17→17:04)
[2023-05-19] MEDS: Insulin Glargine 300 UNITS/3 ML PEN 35 UNITS SC (08:18)
--- NOTE | 2023-05-19 09:16 | PTTR_ITS ---
Date of service: 05/19/23 Time of Service: 08:50 PT Notes Visit Reasons: Cerebrovascular accident Inpatient Physical Therapy Treatment Note [facility] Date: 05/19/2023 PRECAUTIONS: Fall, standard, activity as tolerated, post op shoes in place for all out of bed activities. SUBJECTIVE: Agreeable to performing bed exercises earlier in the morning, but when I attempted to have patient transition bed to chair he refused several times despite discussion with myself and Nurse Bernadette. OBJECTIVE: ? PAIN: No complaints of pain offered with AA/ PROM of right UE while in supine today. ? BED MOBILITY/TRANSFERS? Not performed, refused GAIT? Not performed, refused ? THEREX: Performed supine exercises for AROM with left UE/ LE and PROM for right LE / UE. No complaints of pain with movement of left UE today. Able to perform left LE? AROM with verbal and tactile cueing for ankle pumps, hip abd/add, hip flexion/extension and quad/ qlut sets for 10 reps each. AROM of left UE included bicep curls, shoulder IR/ER, shoulder abd/add and shoulder flexion to 110 degrees x 10 reps each with tactile and verbal cueing. PROM of left wrist, elbow and shoulder flexion to 70 degrees for 10 reps each. ? PROM of right LE included ankle pumps, hip flexion/ extension and abd/adduction for 10 reps each. Not able to detect even a trace of assistance with right LE/ UE. ? ASSESSMENT:? Communication still very frustrating for him. Minimal ability to express answers to questions with sentences, is answering yes and no to questions, such as would you like to get up into chair, do you have pain in your shoulder. PLAN: Continue strengthening per plan of care, until patient discharges to a care home facility. TREATMENT CODE/TIME: 49900, 8:50 to 9:05 (15 minutes), hoped to have patient attempt to transfer with [facility] lift prior to lunch but he refused. Will discuss this with supervising PT and possible try [facility] lift tomorrow if Ed is agreeable to this.
[2023-05-19] MEDS: Enoxaparin 40 MG/0.4 ML SYR SC (15:52)
--- NOTE | 2023-05-19 17:00 | W.PM.PROGNOT ---
Date of Service Date of service: 05/19/23 Time of Service: 17:00 Assessment and Plan Assessment and plan (1) Acute cerebrovascular accident (CVA): Status: Acute Assessment and plan: Brain MRI shows L cerebellar and L parietal lobe infarcts. Complete right hemiplegia noted today so repeat MRI obtained. No new stroke. Continue aspirin, plavix, statin. Echo shows LVEF of 55%, Normal size and function of the R side, and no significant valvular disease. CT chest/abdomen/pelvis to r/o malignancy (multiterritory infarcts could be connected to an underlying malignancy) did not show any malignancy. Neurology recommendations appreciated. Continue working with PT, OT, speech. Seen by palliative. Remains full code. He has been accepted at [facility] for acute rehab. (2) Left carotid artery occlusion: Status: Acute Assessment and plan: As above Vascular follow up (3) 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: Status: Chronic Assessment and plan: BGs not adequately controlled but close to desired hospital range of 140-180. Cont to monitor. (4) Substance abuse in remission: Status: Acute Assessment and plan: Continue methadone. Dose verified. (5) Dysphagia: Status: Acute Assessment and plan: Cont diet of soft/bite sized/thin. CT of the chest w/o infiltrates/consolidations. + emphysematous changes. (6) Expressive aphasia: Status: Acute Assessment and plan: Continue working with speech therapy Improved marginally since admission. (7) Toe osteomyelitis, right: Assessment and plan: He has been seeing wound care at [facility]. Prescribed Bactrim; continue. Wound care nurse consulted. (8) DVT prophylaxis: Status: Acute Assessment and plan: SC enoxaparin (9) Discharge planning issues: Status: Acute Assessment and plan: Full code Medically stable and able to transfer to rehab facility when bed available. Subjective Subjective Patient reports: no new complaints and afebrile; denies bowel movement, nausea, vomiting or shortness of breath Exam Narrative Exam Narrative: General: Awake. NAD. HEENT: EOMI, MMM, sclera clear. Heart: RRR, no murmur Lungs: Clear. Nonlabored breathing. Abdomen: soft, nontender, nondistended Extremities: no edema BLEs Neuro: R arm dense weakness. Expressive aphasia; able to mouth single words. LLE weak compared to RLE Objective Last Vital Signs Temp 37.6 C H 05/19/23 15:18 Pulse 80 05/19/23 15:18 Resp 22 05/19/23 15:18 BP 169/66 H 05/19/23 15:18 Pulse Ox 90 L 05/19/23 15:18 Progress Note: Quality Stroke Onset of Symptoms Date: 05/06/23 Rehab Services Assessed: Activities of daily living assessment Time Spent with Patient Time Spent with Patient: 25-34 minutes Time was spent: preparing to see the patient(eg.review tests), obtaining and/or reviewing separately otained hiistory, ordering medications,tests, procedures, referring, communicating with other health medicare nurse, indepentently interpreting results and counseling the patient
[2023-05-19 21:34] LABS: Glucose 176 mg/dL (74-106)
--- NOTE | 2023-05-19 21:48 | NUR.NOTE ---
Nursing Note: patients wristband malfunctioning with glucometers. lab draw was done instead, 176.
[2023-05-20] VITALS (7 sets, daily range): BP systolic 118–150; BP diastolic 62–90; PULSE 61–85; RESP 14–18; TEMP 36.2–37.3; O2SAT 94–97
[2023-05-20 07:21] LABS: Anion Gap 6.9 mmol/L (3-11); BUN 27 mg/dL (7-18); CO2 29.1 mmol/L (21.0-32.0); Calcium 8.7 mg/dL (8.5-10.1); Chloride 100 mmol/L (98-107); Estimated GFR 80.47 (mL/min/1.73m2); Glucose 135 mg/dL (74-106); Potassium 4.5 mmol/L (3.5-5.1); Sodium 136 mmol/L (136-145)
[2023-05-20] MEDS: Gabapentin 800 MG TAB PO ×3 (08:10→15:28)
[2023-05-20] MEDS: Methadone Liquid 10 MG/ML 225 MG PO (08:10)
[2023-05-20] MEDS: Aspirin 81 MG CHEW CH (08:10)
[2023-05-20] MEDS: Sulfameth/Trimeth DS TAB 1 TAB PO (08:10)
[2023-05-20] MEDS: amLODIPine 5 MG TAB PO (08:10)
[2023-05-20] MEDS: Magnesium Oxide 400 MG TAB PO (08:11)
[2023-05-20] MEDS: clonazePAM 0.5 MG TAB PO (08:11)
[2023-05-20] MEDS: Clopidogrel 75 MG TAB PO (08:11)
[2023-05-20] MEDS: Carvedilol 12.5 MG TAB PO (08:11)
[2023-05-20] MEDS: metFORMIN C.R. 500 MG TABCR PO (08:12)
[2023-05-20] MEDS: Insulin Glargine 300 UNITS/3 ML PEN 35 UNITS SC (10:51)
--- NOTE | 2023-05-20 11:33 | CMDISCH_ITS ---
Date of service: 05/20/23 Time of Service: 11:33 LACE Index Scoring Tool Questions: Length of Stay (in days): 4 - 6 Was the patient admitted via the E.D.?: Yes Comorbidities: Cerebrovascular Disease, Diabetes w/o Complication, with End Organ Damage and Liver or Renal Disease E.D. Visits: 1 Answers: Total Score: 13 Risk of Readmission: High Risk Care Management Discharge Plan Reason for Hospitalization: CVA Discharge Plan: Edmaurice is transferred to [facility] for Acute rehab. He is transported via EMS. Details of admission are also discussed with his son Susie, prior to discharge. Patient/Family Education Needs: Review transfer instructions, limitations, medications and plan to follow up with community providers. Services Needed at Discharge: Physical Therapy ([facility], Acute Rehab) and Transportation (EMS/[facility], coordinated by CM )
--- NOTE | 2023-05-20 11:47 | PT.INNT ---
Date of service: 05/20/23 Time of Service: 11:34 PT Notes Visit Reasons: Cerebrovascular accident Patient refused treatment, does not want to be too fatigued today when he transfers to acute rehab facility.
--- NOTE | 2023-05-20 12:03 | W.PM.DS.N ---
Date of service: 05/20/23 Time of Service: 13:04 DS: Diagnosis Discharge Diagnosis (1) Acute cerebrovascular accident (CVA): Status: Acute Asessment and Plan: Brain MRI shows L cerebellar and L parietal lobe infarcts. Complete right hemiplegia noted later in his admission so a repeat MRI obtained. No new stroke. Continue aspirin, plavix, statin. Echo shows LVEF of 55%, Normal size and function of the R side, and no significant valvular disease. CT chest/abdomen/pelvis to r/o malignancy (multiterritory infarcts could be connected to an underlying malignancy) did not show any malignancy.? Neurology consulted and their recommendations followed. Continue working with PT, OT, speech. Seen by palliative. Remains full code. He has been accepted at [facility] for acute rehab. (2) Left carotid artery occlusion: Status: Acute Asessment and Plan: As above He should be scheduled with a vascular surgery appointment at time of acute rehab discharge. 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 Diabetic diet. (4) Plantar ulcer of left foot: Status: Acute Asessment and Plan: This was present on admission. Wound care evaluated and wound care instructions in discharge summary. (5) Substance abuse in remission: Status: Acute Asessment and Plan: Cont methadone. (6) Dysphagia: Status: Acute Asessment and Plan: Cont diet of soft/bite sized/thin. CT of the chest obtained for evaluation of possible aspiration: no infiltrates/consolidations.? + emphysematous changes. (7) Expressive aphasia: Status: Acute Asessment and Plan: He relates that this is the most frustrating deficit secondary to his stroke. Cont rehab efforts. (8) Discharge planning issues: Status: Acute Asessment and Plan: Patient is aware that acute rehab is indicated for the best possible outcome. Discharge Plan Disposition Patient Disposition: Other Disposition Not Listed Other Facility: [facility] Acute Rehab Condition: Stable Discharge Details Reason For Visit: CVA Admit Date/Time: 05/14/23 11:35 Admit Provider: Ankit Parra Attending Provider: Ankit Parra Primary Care Provider: Betty RiveraGalen Hospital Course Hospital Course: This is a 73-year-old man who had word finding difficulties for over 1 week according to his son.? He was seen by his PCP who recommended he be evaluated in the emergency room.? He declines that evaluation, per his son.? The morning of admission his son woke him up early to take him to [place] to get his methadone.? He was having trouble speaking and some trouble with ambulation.? He appeared to be weak on his right side and have a right facial droop.? Despite this they drove to [place] to the methadone clinic.? The clinic worker evaluated him and declined to give him the methadone doses, they recommended he be evaluated in the emergency room.? The patient declined to go to [facility], he declined to go to [facility], he agreed to go to [facility].? In the emergency room he was found to have a right hemiplegia with a right facial droop.? MRI showed a left carotid occlusion.? Neurology at [facility] (Dr. savage) recommended dual antiplatelet therapy.? He received aspirin and Plavix and was started on atorvastatin.? He continued on his methadone. See Diagnosis ? Home Meds and New Rx's Prescriptions: New insulin glargine [Lantus Solostar U-100 Insulin] 100 unit/mL (3 mL) Insulin Pen 35 unit subcut QAM Qty: 0 0RF aspirin [Children's Aspirin] 81 mg Tablet,Chewable 81 mg CH DAILY Qty: 0 0RF clonazepam 0.5 mg Tablet 0.5 mg PO BID Qty: 0 0RF clopidogrel 75 mg Tablet 75 mg PO DAILY Qty: 0 0RF magnesium oxide 400 mg (241.3 mg magnesium) Tablet 400 mg PO DAILY Qty: 0 0RF insulin aspart U-100 100 unit/mL (3 mL) Insulin Pen 0 units subcut 0800,1200,1700 Qty: 0 0RF polyethylene glycol 3350 17 gram Powder In Packet 17 g PO DAILY Qty: 0 0RF sulfamethoxazole-trimethoprim 800-160 mg Tablet 1 tab PO Q12H Qty: 0 0RF Continued cholecalciferol (vitamin D3) 250 mcg (10,000 unit) capsule 250 mcg PO DAILY Rx Instructions: 07/31/22 unsure of dose jwo gabapentin 800 mg tablet 800 mg PO QID Qty: 360 4RF clonazepam 1 mg tablet 1 mg PO DAILY PRN PRN (Reason: anxiety) Qty: 30 5RF aspirin 81 mg tablet,delayed release (DR/EC) 81 mg PO DAILY albuterol sulfate 90 mcg/actuation HFA aerosol inhaler 2 puff inhalation Q6H PRN insulin glargine [Lantus Solostar U-100 Insulin] 100 unit/mL (3 mL) insulin pen 80 unit SUBCUT QPM Qty: 15 12RF methadone 10 MG/ML concentrate 225 mg PO DAILY metformin 500 mg tablet extended release 24 hr 500 mg PO BID ascorbic acid (vitamin C) [Vitamin C] 1,000 mg tablet 1,000 mg PO DAILY carvedilol 12.5 mg tablet 12.5 mg PO DAILY Patient Comments: TAKE ONE TABLET BY MOUTH TWICE A DAY amlodipine 5 mg tablet 5 mg PO DAILY Patient Comments: Take 1 tablet by mouth twice a day zinc 50 mg tablet 50 mg PO DAILY levothyroxine 137 mcg Tablet 137 mcg PO DAILY Discontinued insulin lispro [Humalog KwikPen Insulin] 100 unit/mL insulin pen 10 unit subcut DAILY Rx Instructions: before each meals insulin glargine [Lantus Solostar U-100 Insulin] 100 unit/mL (3 mL) insulin pen 30 unit SUBCUT QAM Qty: 15 12RF MediHoney (honey) 80 % gel 1 applic topical DAILY PRNQty: 44 0RF silver sulfadiazine [Silvadene] 1 % Cream 1 applic TOPICAL USEASDIRECTD No Action (DME) Blood Glucose Test Strip See Rx Instructions .Route Rx Instructions: As directed (DME) lancets 28 gauge misc See Rx Instructions .Route Rx Instructions: As directed (DME) blood-glucose meter Kit See Rx Instructions .Route Rx Instructions: As directed (DME) pen needle, diabetic [1st Tier Unifine Pentips] 32 gauge x 5/32 needle See Rx Instructions .Route Rx Instructions: As directed (DME) Dexcom G6 Account Manager Relief Misc See Rx Instructions .ROUTE .MEDSUPPLY Qty: 1 3RF Rx Instructions: Continuous glucose monitor (DME) Dexcom G6 Sensor Device See Rx Instructions .ROUTE .MEDSUPPLY Qty: 3 3RF Rx Instructions: Continuous glucose monitor (DME) Dexcom G6 Transmitter Device See Rx Instructions .ROUTE .MEDSUPPLY Qty: 1 4RF Rx Instructions: Continuous glucose monitor Discharge Instructions Additional Instructions: Plantar left foot wound: Wound care 1. Apply Anasept spray to wound and allow to dwell for two minutes. 2. Pat dry. 3. Apply nickel thickness of Santyl to the wound bed. 4. Cover with Mepilex with border dressing. 5. Change daily and prn. Activity:: Activity as Tolerated Equipment/Supplies:: No Equipment Needed Diet:: Diab Discharge Orders Discharge Orders: Discharge Order (Routine); Ordered 05/20/23 Ordered By: Anderson Duff DS: Summary Time Spent with Patient providing and/or coordinating discharge services: Greater than 30 minutes Status at Discharge Functional status at discharge: bed bound (2 person assist ) Overall status at discharge: patient is not back to baseline Mental Status: mental status grossly normal Speech and Movement: other (expressive aphasia) Mood: dysthymic mood Affect: blunted Quality: Stroke Rehab Services Assessed: Activities of daily living assessment Exam Narrative Exam Narrative: General: Awake. NAD. HEENT: EOMI, MMM, sclera clear. Heart: RRR, no murmur Lungs: Clear. Nonlabored breathing. Abdomen: soft, nontender, nondistended Extremities: no edema BLEs. Left foot plantar wound with dressing in place. Neuro: R arm dense weakness. Expressive aphasia; able to mouth single words. LLE weak compared to RLE Psych Mental Status: mental status grossly normal Speech and Movement: other (expressive aphasia) Mood: dysthymic mood Affect: blunted DS: Data Vitals/I&O Vitals and I&O: Vital Signs Temperature 36.5 C 05/20/23 11:23 Temperature Source Tympanic 05/20/23 11:23 Pulse 65 05/20/23 11:23 Pulse Rhythm Regular 05/20/23 08:22 Pulse 72 05/16/23 20:26 Respiratory Rate 18 05/20/23 11:23 Respiratory Effort Normal, Non-Labored 05/20/23 08:22 Respiratory Depth Normal 05/20/23 08:22 Respiratory Pattern Normal 05/20/23 08:22 Blood Pressure 121/62 05/20/23 11:23 Blood Pressure Mean 97 05/13/23 13:31 Blood Pressure Position Sitting 05/13/23 08:54 Pulse Oximetry 94 05/20/23 11:23 Oxygen Delivery Method Room Air 05/20/23 11:23 Oxygen Flow Rate 0 05/20/23 11:23 Pain Level 0 05/20/23 11:23 Comment Pt having periods of apnea while getting vitals while sleeping 05/16/23 22:32 Intake & Output 05/19/23 05/20/23 05/20/23 23:59 11:59 23:59 Intake Total 480 / 770 Output Total 250 / 1400 1400 / 1400 Balance 230 / -630 -1400 / -1400 Weight 94.6 kg Intake: Oral 480 / 760 Output: Urine 250 / 1400 1400 / 1400 Other: Urine Color Dark Desiree Yellow Urine Appearance Clear Clear Data Completed and Pending Labs on day of discharge: Labs from last 24 hours 05/20/23 05/19/23 06:07 21:22 Sodium 136 Potassium 4.5 Chloride 100 Carbon Dioxide 29.1 Anion Gap 6.9 BUN 27 H Creatinine 1.0 Est GFR (CKD-EPI 2020) 80.47 Glucose 135 H 176 H Calcium 8.7 Preliminary micro results at discharge 05/16/23 19:00 Wound Culture - Preliminary Foot - Left Enterobacter Cloacae Complex Staphylococcus Aureus Normal Krystin PFSH All Active Problems (Updated 05/20/23 @ 13:35 by Anderson Duff MD) Plantar ulcer of left foot (Acute) Generalized anxiety disorder (Acute) Dysphagia (Acute) Discharge planning issues (Acute) DVT prophylaxis (Acute) Paralysis of right upper extremity (Acute) Expressive aphasia (Acute) Advanced care planning/counseling discussion (Acute) Palliative care patient (Acute) Left carotid artery occlusion (Acute) Acute ischemic stroke (Acute) Hypertension (Chronic) Substance abuse in remission (Acute) Osteomyelitis of second toe of right foot (Acute) 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) Osteomyelitis of second toe of left foot (Acute) Diabetic infection of right foot (Acute) Cellulitis of foot, right (Acute) Acute kidney injury (Acute) MRSA bacteremia (Acute) Osteomyelitis of toe of right foot (Acute) Foot infection (Acute) Cellulitis (Acute) Osteomyelitis due to type 2 diabetes mellitus (Acute) left great toe Hypothyroidism (Chronic) Osteomyelitis of great toe of left foot (Acute) Chronic ulcer of great toe (Acute) Amputation of toe of right foot (Acute) Hyperlipidemia (Acute) Ganglion cyst of finger of right hand (Acute) Onychomycosis (Acute) Erectile dysfunction (Acute) Chronic pain (Chronic) ADHD (Acute) Polyp of colon, adenomatous (Acute) Adenoma of right adrenal gland (Acute) Diverticulosis (Acute) Asthma (Chronic) Staphylococcus epidermidis bacteremia (Acute) Cognitive impairment (Acute) Acute cerebrovascular accident (CVA) (Acute) Medical History Anxiety Diabetes Disorder of tendon of right hand Hepatitis C History of amputation of great toe History of back pain Hyperglycemia Toe osteomyelitis, right Right great toe Surgical History History of appendectomy History of inguinal hernia repair History of liver biopsy (~01/2001) 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 DOS: 01/15/19 Family History Brother Heart disease Father Congestive heart failure Mother Congestive heart failure Social History Smoking/Tobacco Use Status: Current every day Tobacco Type: cigars Smoking risk assessment performed?: Yes Alcohol Intake: former Drug use: Current Sobriety Substance use type: former substance user Caregiver/Support person: No Communication Needs: Hard of Hearing and Corrective Lenses Pets and animals: Yes Pets and animals: cat(s) and dog(s) Sexually active: No Do you think of yourself as: straight/heterosexual Current gender identity: male What is your relationship status?: How often do you talk on the phone with friends or family?: three or more times per week How often do you get together with friends or relatives?: three or more times per week How often do you attend zoroastrian or taoist services?: decline to answer Do you belong to any clubs or organized social groups?: no Panel score (0-1 are the most socially isolated patients): 2 What type of physical activity do you participate in: none Frequency: does not exercise Richa/Anglican: None Special richa needs: No Seatbelt use: always Helmet use: No Drive intox or ride w/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
[2023-05-20] MEDS: Insulin Aspart 300 UNITS/3 ML PEN SC (12:19)
[2023-05-20] MEDS: clonazePAM 1 MG TAB PO (15:28)
[2023-05-20] MEDS: Enoxaparin 40 MG/0.4 ML SYR SC (15:28)
--- NOTE | 2023-05-21 08:17 | OT.INDS ---
Occupational Therapy Notes Occupational Therapy Inpatient Discharge Summary Date: 05/14/23 Dates of Service: 05/14/23-05/15/23 Referring Doctor:MARISABEL PARRA MD, OT Orders: Urgent Precautions: Fall, Standard, Full *This document serves as a summary of care, no skilled OT services were provided on this date* PATIENT PROFILE/ADMITTING DIAGNOSIS: Pt is a 73 year old male who presented to the ED with a chief c/o CVA/TIA. He was admitted to Med Surg with the following dx of paralysis of (R) UE, expressive aphasia, (L) carotid artery occlusion, acute ischemic stroke, HTN, substance abuse in remission. Past Medical History: All Active Problems? Hypertension (Chronic) Substance abuse in remission (Acute) Osteomyelitis of second toe of right foot (Acute) 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) Osteomyelitis of second toe of left foot (Acute) Diabetic infection of right foot (Acute) Cellulitis of foot, right (Acute) Acute kidney injury (Acute) MRSA bacteremia (Acute) Osteomyelitis of toe of right foot (Acute) Foot infection (Acute) Cellulitis (Acute) Osteomyelitis due to type 2 diabetes mellitus (Acute) left great toeHypothyroidism (Chronic) Osteomyelitis of great toe of left foot (Acute) Chronic ulcer of great toe (Acute) Amputation of toe of right foot (Acute) Hyperlipidemia (Acute) Ganglion cyst of finger of right hand (Acute) Onychomycosis (Acute) Erectile dysfunction (Acute) Chronic pain (Chronic) ADHD (Acute) Polyp of colon, adenomatous (Acute) Adenoma of right adrenal gland (Acute) Diverticulosis (Acute) Asthma (Chronic) Staphylococcus epidermidis bacteremia (Acute) Cognitive impairment (Acute) Acute cerebrovascular accident (CVA) (Acute) Medical History? Anxiety Diabetes Disorder of tendon of right hand Hepatitis C History of amputation of great toe History of back pain Hyperglycemia Toe osteomyelitis, right Right great toe Surgical History? 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 He states that he does not live alone and responded yes to if he was (I) with his ADLs. Pt is a poor historian at this time in order to give full details on his baseline. Pt has a son and daughter. He notes that he does drive. OT will continue to assess pts baseline and current level of function. SUBJECTIVE:??NT OBJECTIVE:? *This is a summary of pts care no skilled OT services were provided for this pts discharge documentation. * FUNCTIONAL MOBILITY/ADLS: BATHING seated in bed Bathing UE mod vc pt is able to wash his face. Bathing LE NT DRESSING Dressing UE Mod (A) Dressing LE max (A) don and doffing (B) socks EATING sitting in bed with (L) UE he is able to bring food to his mouth with increased performance time. BALANCE: Static sitting Normal Dynamic Sitting Normal INFORMED CONSENT/EDUCATION: Pt instructed in purpose of OT Consult and plan of care. ASSESSMENT:?? Patient is a 73-year-old male referred to occupational therapy services with diagnosis of paralysis of (R) UE, expressive aphasia, (L) carotid artery occlusion, acute ischemic stroke, HTN, substance abuse in remission. Patient was seen for initial evaluation and then 1 visit post evaluation. He was discharged to [facility] on 05/20/23 for further rehabilitation. GOALS 1.? Transfers min (A) 2.? Dressing mod (A) 3.? Bathing mod (A) 4.? Toileting on commode (I) 5.? Eating (I) PLAN OF CARE/TREATMENT PLAN: Discharge from skilled OT services, pt was discharged 05/20 to [facility]. DISCHARGE RECOMMENDATIONS [facility]/stroke rehabilitation vs. SNF TREATMENT TIME/MINUTES/CODES N/A Sara Cantu OTR/L [facility] [place], [place]
--- NOTE | 2023-05-23 16:29 | INDS_ITS ---
Date of service: 05/14/23 PT Notes Visit Reasons: Cerebrovascular accident Physical Therapy Inpatient Initial Evaluation Date: 05/19/2023 Dates of Service: 05/14/2023 through 05/19/2023 This is a clinical summary of care provided for the duration of dates listed above. No charge was made in the completion of this documentation. Referring Doctor: Ankit Parra MD PT Orders: PT CONSULT: Fall safety assessment.? New CVA. Precautions: Fall. Standard. Activity as tolerated. ??Use post-op shoes when OOB. Patient Profile/Admitting Diagnosis:? Darwin is a 73-year-old male admitted to the ED on 05/13/2023 due to word finding difficulty and inability to communicate as well as right facial and right arm weakness.? Patient is admitted to [facility] for management of left frontotemporal parietal ischemic CVA, substance abuse in remission, and uncontrolled type 2 diabetes mellitus. PMHX: All Active Problems? Hypertension (Chronic) Substance abuse in remission (Acute) Osteomyelitis of second toe of right foot (Acute) 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) Osteomyelitis of second toe of left foot (Acute) Diabetic infection of right foot (Acute) Cellulitis of foot, right (Acute) Acute kidney injury (Acute) MRSA bacteremia (Acute) Osteomyelitis of toe of right foot (Acute) Foot infection (Acute) Cellulitis (Acute) Osteomyelitis due to type 2 diabetes mellitus (Acute) left great toeHypothyroidism (Chronic) Osteomyelitis of great toe of left foot (Acute) Chronic ulcer of great toe (Acute) Amputation of toe of right foot (Acute) Hyperlipidemia (Acute) Ganglion cyst of finger of right hand (Acute) Onychomycosis (Acute) Erectile dysfunction (Acute) Chronic pain (Chronic) ADHD (Acute) Polyp of colon, adenomatous (Acute) Adenoma of right adrenal gland (Acute) Diverticulosis (Acute) Asthma (Chronic) Staphylococcus epidermidis bacteremia (Acute) Cognitive impairment (Acute) Acute cerebrovascular accident (CVA) (Acute) Medical History? Anxiety Diabetes Disorder of tendon of right hand Hepatitis C History of amputation of great toe History of back pain Hyperglycemia Toe osteomyelitis, right Right great toe Surgical History? 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 He has 2 children. His son Susie lives in a separate dwelling on his property and his daughter Alejandra lives closeby with her and 4 children. He identified that they are generally supportive. Equipment Owned/DME: Patient states that he did not use a walker at home Subjective: NT. See most recent SAIL REPAIRER notes. Objective: General Observation: NT. See most recent SAIL REPAIRER notes. Mental Status: NT. See most recent SAIL REPAIRER notes. Pain: NT. See most recent SAIL REPAIRER notes. Vital Signs: NT. See most recent SAIL REPAIRER notes. ROM: Right Upper Extremity: ? Shoulder Flexion WFL. Shoulder abduction WFL. Elbow flexion WFL. Wrist flexion WFL. Functional opening and closing of hand WFL. Left Upper Extremity:? Shoulder Flexion WFL. Shoulder abduction WFL. Elbow flexion WFL. Wrist flexion WFL. Functional opening and closing of hand WFL. Right Lower Extremity: Hip flexion WFL. Hip abduction WFL. Knee flexion WFL. Ankle dorsiflexion to neutral only. Ankle plantarflexion WFL. Left Lower Extremity: Hip flexion WFL. Hip abduction WFL. Knee flexion WFL. Ankle dorsiflexion WFL. Ankle plantarflexion WFL. Strength: Right Upper Extremity: Shoulder flexors 3+/5. Shoulder abductors 3+/5. Elbow flexors 4-/5. Elbow extensors 4-/5. [employer] weak/impaired. Left Upper Extremity: Shoulder flexors 4/5. Shoulder abductors 4/5. Elbow flexors 4/5. Elbow extensors 4/5. [employer] strong. Right Lower Extremity: Hip flexors 4-/5. Hip abductors 4-/5. Knee flexors 4-/5. Knee extensors 4-/5. Ankle dorsiflexors 3+/5. Ankle plantarflexors 3+/5. Left Lower Extremity: Hip flexors 4/5.? Hip abductors 4/5. Knee flexors 4/5. Knee extensors 4/5. Ankle dorsiflexors 4/5. Ankle plantarflexors 4/5. Bed Mobility/Transfers: Supine to sit stand by assist Sit to stand contact guard assist of 2,? cues provided for hand placement Stand to sit contact guard assist of 2,? cues provided for hand placement Bed to reclining chair contact guard assist of 2,? cues provided for hand placement Gait: Instructed patient with level surface ambulation of 100 feet requiring minimal assist and contact guard assist of another for walker management,? ARABELLA Starkeyanda asked to provide wheelchair follow for safety. 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 Rita decreased. Hemiplegic gait.? tends to walk fast and hit the R back leg of walker with R foot.? Moderate cues were provide to ensure stable gait and even/symmetric step length.? The past two days, patient had been unsafe to be walked due to suspected behavioral disturbance compounded by stroke process/worsening weakness. Balance: Static Sitting: Fair Dynamic Sitting: Unbale Static Standing: Poor Dynamic Standing: Unable ASSESSMENT: R UE/LE hemiparesis with hand mostly affected,? dieing out machine operator significantly impaired.? Hemineglect evident on R side.? Motor execution on R UE/LE impaired.? Safety awareness impaired due to visual perceptual deficits.? Patient presents with clinical signs and symptoms consistent with current/admitting diagnoses that have resulted to mobility limitations, gait instability, generalized weakness, and overall ADL decline as demonstrated by the following impairment level findings: 1.? Decreased strength to r UE/LE major muscle groups 2.? Impaired standing balance 3.? Impaired activity tolerance 5.? Weak R dieing out machine operator 6.? Hemineglect on R side 7.? Visual/preceptual deficit decreasing safety of mobility task performance 8.? Aphasia Impairments are contributing to the following functional limitations: 1.? Decline in bed mobility skills 2.? Decline in transfer skills 3.? Impaired ambulation needing assiatnce with walking 4.? Increased completion time for mobility ADL performance 5.? Increased risk for falls 6.? Difficulty with managing steps alone safely 7.? Impaired communication abilities Goals: Goals X1 week 1. Supine-Sit independent 2. Sit-Supine independent 3. Sit-Stand stand by assist with FWW 4. Stand-Sit stand by assist with FWW 5. Bed-Chair stand by assist with FWW 6. Chair-Bedstand by assist with FWW 7. Conatct guard assist with gait on level surface with use of FWW vs. hemiwalker for at least 100 feet without report of pain nor dyspnea 8. Independent stair negotiation while holding onto B rails for at least 5 steps without report of pain nor dyspnea 9. Fair static and dynamic standing balance/tolerance DISCHARGE RECOMMENDATIONS: [] ? Home with no services [] [] ? Home with services [specify] [] ? Home with outpatient PT [] [] ? SNF for continued rehabilitation [] [] ? Long-Term Care [] [] ? SNF versus LTC based on ability to participate and progress [] [X]? Acute stroke rehab facility vs. SNF TREATMENT CODE/TIME: [place] Thank you for the opportunity to participate in the care of this patient. Arlette Ledezma PT, DPT, CLT [facility] [place], [place]
== END 2023-05-20 15:57 | disposition other institution (70) | DRG 65 ==
LOC: ER 11:50 → MS 14:39
PROVIDERS: Family Medicine; General Practice; Internal Medicine; Admitting Provider Family Medicine; Emergency Provider Emergency Medicine; PCP Nurse Practitioner Family; Visit Provider Family Medicine
DX: I63.232 Cerebral infarction due to unspecified occlusion or stenosis of left carotid arteries (principal); F11.20 Opioid dependence, uncomplicated; G81.91 Hemiplegia, unspecified affecting right dominant side; L97.423 Non-pressure chronic ulcer of left heel and midfoot with necrosis of muscle; M86.172 Other acute osteomyelitis, left ankle and foot; R47.01 Aphasia; E11.42 Type 2 diabetes mellitus with diabetic polyneuropathy; E11.65 Type 2 diabetes mellitus with hyperglycemia; R13.10 Dysphagia, unspecified; F41.1 Generalized anxiety disorder; R29.810 Facial weakness; I10 Essential (primary) hypertension; Z89.411 Acquired absence of right great toe; E03.9 Hypothyroidism, unspecified; E78.5 Hyperlipidemia, unspecified; G89.29 Other chronic pain; F90.9 Attention-deficit hyperactivity disorder, unspecified type; J45.909 Unspecified asthma, uncomplicated; R41.89 Other symptoms and signs involving cognitive functions and awareness; F17.290 Nicotine dependence, other tobacco product, uncomplicated; H53.461 Homonymous bilateral field defects, right side; R47.1 Dysarthria and anarthria; E11.69 Type 2 diabetes mellitus with other specified complication; E11.621 Type 2 diabetes mellitus with foot ulcer
CPT/HCPCS: 36415; 36569; 70496; 70498; 74177; 80048; 80053; 80061; 80307; 82947; 87077; 92526; 92610; 93005; 97110; 97112; 97140; 97162; 97167; 97530; 97535; 99223; 99232; J1650; 70551; 71045; 71260; 80320; 81003; 81015; 82607; 83735; 84443; 84484; 85025; 85610; 85730; 86140; 87070; 87186; 87205; 92523; 93010; 93306; 99233; 99239; J2060; J3475; J3490

== ENCOUNTER 2023-06-16 11:09 | Emergency (ER) | payer MEDICARE, MEDICAID, SELFPAY ==
[2023-06-16] VITALS (109 sets, daily range): BP systolic 122–184; BP diastolic 64–128; PULSE 65–187; RESP 8–26; TEMP 36.8–36.9; O2SAT 93–99
--- NOTE | 2023-06-16 10:45 | DI.CT_ITS ---
Exam(s) CT HEAD WO EXAM: CT HEAD WO CLINICAL HISTORY: AMS Hx of CVA. TECHNIQUE: Imaging Protocol: Axial computed tomography images with coronal and sagittal reformatted images were created and reviewed COMPARISON: CT CT BRAIN NECK CTA from 05/13/2023 MR MR BRAIN WO from 05/16/2023 FINDINGS: Ventricles and Extra axial spaces: Normal in size and morphology for the patient's age. Hemorrhage: None. Cerebral parenchyma: Subacute infarcts are again seen in the left frontal, left parietal and left cer ebellar lobes. These are consistent with of all vein infarcts. The patient has had prior MRIs. The most recent 05/16/2023. No new infarct is identified. There is small vessel ischemic disease presen t. Midline shift: None. Brainstem/Cerebellum: Normal. Calvarium: Normal. Visualized Paranasal sinuses/Mastoids: Clear. Soft Tissues: Unremarkable. IMPRESSION: 1. Evolving subacute infarct. No new infarct is identified. 2. No intracranial hemorrhage. RADIATION DOSE DELIVERED: 1,090.46mGy.cm Total DLP DATA REPOSITORY: All CT scans at this facility are submitted to the National Radiology Data Registry (NRDR) Dose Index Registry (DIR) with the [employer] ([employer]). RADIATION OPTIMIZATION: All CT scans at this facility use at least one of these dose optimization te chniques: automated exposure control; mA and/or kV adjustment per patient size (includes targeted exa ms where dose is matched to clinical indication); or iterative reconstruction.
--- NOTE | 2023-06-16 10:45 | RT.EKG_ITS ---
APPROVED REPORT Exam: Resting ECG Reason for Exam: AMS Patient Location: E HR:169 bpm ECG Measurements Heart Rate 169 AXIS UT 102 P 243 QRSd 95 QRS 52 QT 326 T -46 QTc 546 Conclusion Supraventricular tachycardia...V-rate>(220-age), QRSd<120 Probable left ventricular hypertrophy...(RaVL+SV3)xQRSd >280 Repolarization abnormality, prob rate related...ST dep, T neg, tachycardia
--- NOTE | 2023-06-16 11:15 | DI.RAD_ITS ---
Exam(s) XR CHEST 1V IN DI DEPT EXAM: XR CHEST 1V IN DI DEPT CLINICAL HISTORY: AMS, TECHNIQUE: 2D digital imaging was performed of the chest. One image was obtained. An AP view was ob tained. COMPARISON: CR XR PORTABLE CHEST AP from 05/13/2023 FINDINGS: MEDIASTINUM: Normal. HEART: Normal. PULMONARY VASCULATURE: Normal. LUNGS: Clear. PLEURAL SPACE: No pleural effusion or pneumothorax. BONE:Within normal limits for the patient's age. OTHER FINDINGS:Normal. IMPRESSION: No acute pulmonary findings. DATA REPOSITORY: RADIATION DOSE DELIVERED:
--- NOTE | 2023-06-16 11:17 | ED.GENADUL_ITS ---
Discharge Plan Discharge Details Chief Complaint: AMS/LOC Clinical Impression: CVA, old, cognitive deficits, Dehydration, Elevated troponin I level Primary Care Provider: Galen Ramirez ED Provider: Kayy Godfrey Home Meds and New Rx's Prescriptions: No Action cholecalciferol (vitamin D3) 250 mcg (10,000 unit) capsule 250 mcg PO DAILY Rx Instructions: 07/31/22 unsure of dose jwo gabapentin 800 mg tablet 800 mg PO QID Qty: 360 4RF clonazepam 1 mg tablet 1 mg PO DAILY PRN PRN (Reason: anxiety) Qty: 30 5RF aspirin 81 mg tablet,delayed release (DR/EC) 81 mg PO DAILY albuterol sulfate 90 mcg/actuation HFA aerosol inhaler 2 puff inhalation Q6H PRN (DME) Blood Glucose Test Strip See Rx Instructions .Route Rx Instructions: As directed (DME) lancets 28 gauge misc See Rx Instructions .Route Rx Instructions: As directed (DME) blood-glucose meter Kit See Rx Instructions .Route Rx Instructions: As directed (DME) pen needle, diabetic [1st Tier Unifine Pentips] 32 gauge x 5/32 needle See Rx Instructions .Route Rx Instructions: As directed (DME) Dexcom G6 Banking And Finance Instructor Misc See Rx Instructions .ROUTE .MEDSUPPLY Qty: 1 3RF Rx Instructions: Continuous glucose monitor (DME) Dexcom G6 Sensor Device See Rx Instructions .ROUTE .MEDSUPPLY Qty: 3 3RF Rx Instructions: Continuous glucose monitor (DME) Dexcom G6 Transmitter Device See Rx Instructions .ROUTE .MEDSUPPLY Qty: 1 4RF Rx Instructions: Continuous glucose monitor insulin glargine [Lantus Solostar U-100 Insulin] 100 unit/mL (3 mL) insulin pen 80 unit SUBCUT QPM Qty: 15 12RF methadone 10 MG/ML concentrate 225 mg PO DAILY metformin 500 mg tablet extended release 24 hr 500 mg PO BID ascorbic acid (vitamin C) [Vitamin C] 1,000 mg tablet 1,000 mg PO DAILY carvedilol 12.5 mg tablet 12.5 mg PO DAILY Patient Comments: TAKE ONE TABLET BY MOUTH TWICE A DAY amlodipine 5 mg tablet 5 mg PO DAILY Patient Comments: Take 1 tablet by mouth twice a day zinc 50 mg tablet 50 mg PO DAILY insulin glargine [Lantus Solostar U-100 Insulin] 100 unit/mL (3 mL) Insulin Pen 35 unit subcut QAM Qty: 0 0RF aspirin [Children's Aspirin] 81 mg Tablet,Chewable 81 mg CH DAILY Qty: 0 0RF clonazepam 0.5 mg Tablet 0.5 mg PO BID Qty: 0 0RF clopidogrel 75 mg Tablet 75 mg PO DAILY Qty: 0 0RF magnesium oxide 400 mg (241.3 mg magnesium) Tablet 400 mg PO DAILY Qty: 0 0RF insulin aspart U-100 100 unit/mL (3 mL) Insulin Pen 0 units subcut 0800,1200,1700 Qty: 0 0RF polyethylene glycol 3350 17 gram Powder In Packet 17 g PO DAILY Qty: 0 0RF sulfamethoxazole-trimethoprim 800-160 mg Tablet 1 tab PO Q12H Qty: 0 0RF levothyroxine 137 mcg Tablet 137 mcg PO DAILY Medical Decision Making 73-year-old male with a past medical history of insulin-dependent diabetes, CVA on the right who has right-sided paresthesias who is nonverbal presents to the ER with altered mental status, has not been taking his medications for an unknown amount of time, he is irregularly tachycardic with a rate of 153, he is hypertensive 184/86. He is a full code. He does present with an intact Riojas catheter which was changed out on May 28 dark urine noted. He does smell of ketones. Work-up ordered including serial troponins, chest x-ray head CT, will change out the Riojas. We will give metoprolol and a liter of normal saline. Ultrasound-guided IV attempted on the right with a 20-gauge, infiltrated I was able to get blood work from this. Dr. Forman at bedside to assist with line placement. Differential diagnosis includes but not limited to's recurrent CVA however patient is out of the window due to his previous stroke, dehydration, DKA. The son was here at the bedside who states that he was discharged from [facility] yesterday was told that patient may have aspirated he has drastically changed from the last 4 days. He is now nonverbal which is not like him. He has not taken any of his normally scheduled medications for the last 4 days at least. This time CBC shows white blood cell count of 13.15, platelets 456 absolute neutrophils 10.73, VBG PCO2 is 38 CO2 20, bicarb 23. Ultrasound-guided IV by Dr. Dasia CUETO infiltrated on the right side as well. Lorazepam 2 mg IM ordered in order to establish vascular access. 1214: Troponin 220, glucose 432 received by lab, proBNP is greater than 7000. Dr. Forman again at bedside for vascular access. He was able to get a line on the left arm. 1318: Patient received 5 mg of metoprolol slow IV push, heart rate is intermittently improved from 92 -160 blood pressure is 152/69. An additional 5 mg of metoprolol ordered IV here. We will recheck sugar after liter of fluid. Pending CT head chest x-ray. 1329: Spoke with the son Stephen who is here earlier regarding patient case. I did call to get consent for possible central line for vascular access he gives consent. He also reports that his sister should be stopping by as well. He will return to give us the med list to make a copy of. Heart rate has improved slightly still in irregular rhythm. 1359: 18-gauge right upper arm started by Dr. Forman, repeat troponin drawn from this line, saline infusing without difficulty. Patient is sleeping. Fluids decreased to approximately 200 an hour. He did have some infiltration of his previous lines into the soft tissues estimated probably 200 cc or less. 1523: Spoke with Renard who recommends transfer to tertiary facility, for subacute CVA, transesophageal echocardiogram and higher level of care due to full code status. [place] [facility] [place]35[place] [facility] [place], images pushed. 1626: Spoke with Dr. Colon with Neurology who recommends having medicine involvement which I agree with due to multiple full system involvement and being a complex patient., they are over-serviced and will need approval. [facility] [place]. Will consider [facility], images requested to be pushed. Patient is to be handed off to oncoming provider Horace Mcneill NP pending read discussion with [facility] [place] and [place]. At the time of the signout patient is stable. I do recommend admission or transfer for consideration of feeding tube, diabetes management and elevated troponin with possible evolving CVA. 1715: Anesthesia at bedside, placed a midline catheter in the right brachial. Please see their procedure note. Medical Records Medical records reviewed: Yes I reviewed the patient's medical records. Imaging Data Radiologic Study: Imaging: CT Scan Radiologist's impression: [facility] report IMPRESSION: 1. There are evolving subacute infarcts in the left anterolateral frontal lobe and left high parietal lobe . There is mild residual edema with effacement of the local sulci. The edema suspected to be slightly more prominent in the left parietal lobe infarct than previous MR exam , evolving or new subacute infarct in the same region cannot be excluded. There is no midline shift. Stable evolving subacute to chronic infarct in the left periventricular white matter in the watershed zone of the frontal and parietal lobes and stable infarct in left cerebellar hemisphere which have no significant edema may have become late subacute to chronic. No new regional infarct seen. There is no acute intracranial hemorrhage. If the patient reports new symptoms, consider further evaluation with MRI . 2. THIS REPORT CONTAINS FINDINGS THAT MAY BE CRITICAL TO PATIENT CARE. The findings were verbally communicated via telephone conference at 3:08 PM EDT on 06/16/2023 with KAYY GODFREY. 3. The findings were acknowledged and understood. Thank you for allowing us to participate in the care of your patient. Dictated and Authenticated by: Brian Doll DO Radiologic Study #2: Imaging: X-Ray Radiologist's impression: Imaging protocol: Radiologic exam of the chest. Views: 1 view. COMPARISON: CT CHEST/ABD/PEL W 05/15/2023 8:45 PM FINDINGS: Lungs: No consolidation. Pleural spaces: No pleural effusion. No pneumothorax. Heart/Mediastinum: No cardiomegaly. Bones/joints: Unremarkable. IMPRESSION: No acute findings. Thank you for allowing us to participate in the care of your patient. Dictated and Authenticated by: Brian Doll DO Lab Data Lab results reviewed: Yes I reviewed the patient's lab results. Labs: Laboratory Tests Range/Units 06/16/23 06/16/23 06/16/23 11:16 11:35 11:35 WBC (4.4-10.8) 10^3/uL RBC (4.36-5.78) 10^6/uL Hgb (13.5-17.5) g/dL Hct (40.0-50.0) % MCV (80-95) fL MCH (27.0-33.0) pg MCHC (32.0-36.0) % RDW (11.8-14.1) % Plt Count (130-400) 10^3/uL MPV (8.0-11.0) fL Immature Gran % Neutrophils % Lymphocytes % Monocytes % Eosinophils % Basophils % Nucleated RBC % (0.0-0.3) % Absolute Neutrophils (1.2-6.7) 10^3/uL Absolute Lymphocytes (1.2-3.4) 10^3/uL Absolute Monocytes (0.1-0.8) 10^3/uL Absolute Eosinophils (0.0-0.7) 10^3/uL Absolute Basophils (0.0-0.2) 10^3/uL PT (9.3-11.0) sec 16.9 H INR (0.9-1.1) 1.7 H APTT (21.5-31.9) sec 28.8 VBG pH (7.31-7.41) 7.39 VBG pCO2 (41-51) mmHg 38 L VBG pO2 mmHg 36 VBG HCO3 (23-28) mmol/L 23 VBG Total CO2 (24-29) mmol/L 20 L VBG O2 Saturation % 70 VBG Base Excess (-2-3) mmol/L -2 Sodium (136-145) mmol/L Potassium (3.5-5.1) mmol/L Chloride (98-107) mmol/L Carbon Dioxide (21.0-32.0) mmol/L Anion Gap (3-11) mmol/L BUN (7-18) mg/dL Creatinine (0.70-1.30) mg/dL Est GFR (CKD-EPI 2020) (mL/min/1.73m2) Glucose (74-106) mg/dL Calcium (8.5-10.1) mg/dL Magnesium (1.8-2.4) mg/dL Total Bilirubin (0.2-1.0) mg/dL AST (15-37) U/L ALT (16-63) U/L Alkaline Phosphatase (46-116) U/L Troponin I (<or=60) ng/L NT-Pro-B Natriuret Pep (<300) pg/mL 7441 H Total Protein (6.4-8.2) g/dL Albumin (3.4-5.0) g/dL Urine Color (Yellow) Urine Clarity (Clear) Urine pH (5-8) Ur Specific Driggs (1.005-1.025) Urine Protein (Negative) mg/dL Urine Ketones (Negative) mg/dL Urine Blood (Negative) Urine Nitrite (Negative) Urine Bilirubin (Negative) Urine Urobilinogen (Up to 0.2) mg/dL Ur Leukocyte Esterase (Negative) Urine Glucose (Negative) mg/dL Range/Units 06/16/23 06/16/23 06/16/23 11:35 11:35 12:31 WBC (4.4-10.8) 10^3/uL 13.15 H RBC (4.36-5.78) 10^6/uL 5.69 Hgb (13.5-17.5) g/dL 16.0 Hct (40.0-50.0) % 48.0 MCV (80-95) fL 84 MCH (27.0-33.0) pg 28.1 MCHC (32.0-36.0) % 33.3 RDW (11.8-14.1) % 14.4 H Plt Count (130-400) 10^3/uL 456 H MPV (8.0-11.0) fL 10.5 Immature Gran % 0.6 Neutrophils % 81.6 Lymphocytes % 13.0 Monocytes % 4.6 Eosinophils % 0.0 Basophils % 0.2 Nucleated RBC % (0.0-0.3) % 0.0 Absolute Neutrophils (1.2-6.7) 10^3/uL 10.73 H Absolute Lymphocytes (1.2-3.4) 10^3/uL 1.71 Absolute Monocytes (0.1-0.8) 10^3/uL 0.60 Absolute Eosinophils (0.0-0.7) 10^3/uL 0.00 Absolute Basophils (0.0-0.2) 10^3/uL 0.03 PT (9.3-11.0) sec INR (0.9-1.1) APTT (21.5-31.9) sec VBG pH (7.31-7.41) VBG pCO2 (41-51) mmHg VBG pO2 mmHg VBG HCO3 (23-28) mmol/L VBG Total CO2 (24-29) mmol/L VBG O2 Saturation % VBG Base Excess (-2-3) mmol/L Sodium (136-145) mmol/L 142 Potassium (3.5-5.1) mmol/L 3.3 L Chloride (98-107) mmol/L 102 Carbon Dioxide (21.0-32.0) mmol/L 22.6 Anion Gap (3-11) mmol/L 17.4 H BUN (7-18) mg/dL 39 H Creatinine (0.70-1.30) mg/dL 1.2 Est GFR (CKD-EPI 2020) (mL/min/1.73m2) 64.65 Glucose (74-106) mg/dL 432 H Calcium (8.5-10.1) mg/dL 9.0 Magnesium (1.8-2.4) mg/dL 1.8 Total Bilirubin (0.2-1.0) mg/dL 0.7 AST (15-37) U/L 30 ALT (16-63) U/L 30 Alkaline Phosphatase (46-116) U/L 162 H Troponin I (<or=60) ng/L 220 H* NT-Pro-B Natriuret Pep (<300) pg/mL Total Protein (6.4-8.2) g/dL 7.9 Albumin (3.4-5.0) g/dL 2.8 L Urine Color (Yellow) Desiree Urine Clarity (Clear) Sl Cloudy Urine pH (5-8) 6.0 Ur Specific Driggs (1.005-1.025) >= 1.030 H Urine Protein (Negative) mg/dL >=300 H Urine Ketones (Negative) mg/dL >=160 H Urine Blood (Negative) Large H Urine Nitrite (Negative) Negative Urine Bilirubin (Negative) Moderate H Urine Urobilinogen (Up to 0.2) mg/dL 0.2 Ur Leukocyte Esterase (Negative) Negative Urine Glucose (Negative) mg/dL Negative HPI General Mode of arrival: EMS . Date/Time Provider Initiated Documentation: 06/16/23 11:09 . Limitations to Documentation: altered mental status and physical limitation (Nonverbal) . Information obtained by: EMS, RN notes reviewed and old records reviewed . HPI Narrative: 73-year-old male with a past medical history of insulin-dependent diabetes, CVA on the right who has right-sided paresthesias who is nonverbal presents to the ER with altered mental status, has not been taking his medications for an unknown amount of time, he is irregularly tachycardic with a rate of 153, he is hypertensive 184/86. He is a full code. He does present with an intact Riojas catheter which was changed out on May 28 dark urine noted. He does smell of ketones. Related Data Home Medications Medication Instructions Recorded Confirmed methadone 10 mg/mL oral concentrate 225 mg PO DAILY 04/07/13 05/13/23 metformin 500 mg tablet,extended 500 mg PO BID 01/15/19 05/13/23 release 24 hr levothyroxine 137 mcg tablet 137 mcg PO DAILY 12/21/19 05/13/23 amlodipine 5 mg tablet 5 mg PO DAILY 03/09/22 05/13/23 ascorbic acid (vitamin C) 1,000 mg 1,000 mg PO DAILY 03/09/22 05/13/23 tablet (Vitamin C) carvedilol 12.5 mg tablet 12.5 mg PO DAILY 03/09/22 05/13/23 zinc 50 mg tablet 50 mg PO DAILY 03/09/22 05/13/23 cholecalciferol (vitamin D3) 250 250 mcg PO DAILY 07/31/22 05/13/23 mcg (10,000 unit) capsule albuterol sulfate 90 mcg/actuation 2 puff inhalation Q6H PRN 11/20/22 05/13/23 aerosol inhaler aspirin 81 mg tablet,delayed 81 mg PO DAILY 11/20/22 05/13/23 release blood sugar diagnostic (Blood 11/20/22 05/13/23 Glucose Test strips) blood-glucose meter 11/20/22 05/13/23 lancets 28 gauge 11/20/22 05/13/23 pen needle, diabetic 32 gauge x 11/20/22 05/13/23 5/32 (1st Tier Unifine Pentips) gabapentin 800 mg tablet 800 mg PO QID #360 tabs 12/04/22 05/13/23 blood-glucose meter,continuous #1 ea 12/05/22 05/13/23 (Dexcom G6 Banking And Finance Instructor) blood-glucose sensor (Dexcom G6 #3 ea 12/05/22 05/13/23 Sensor device) blood-glucose transmitter (Dexcom #1 ea 12/05/22 05/13/23 G6 Transmitter device) insulin glargine 100 unit/mL (3 80 unit (0.8 mL) subcut QPM #15 mL 04/16/23 05/13/23 mL) subcutaneous pen (Lantus Solostar U-100 Insulin) clonazepam 1 mg tablet 1 mg PO DAILY PRN PRN anxiety #30 05/03/23 05/13/23 tabs aspirin 81 mg chewable tablet 81 mg CH DAILY #0 tabs 05/20/23 (Children's Aspirin) clonazepam 0.5 mg tablet 0.5 mg PO BID #0 tabs 05/20/23 clopidogrel 75 mg tablet 75 mg PO DAILY #0 tabs 05/20/23 insulin aspart U-100 100 unit/mL 0 units (0 mL) subcut 05/20/23 (3 mL) subcutaneous pen 0800,1200,1700 #0 mL insulin glargine 100 unit/mL (3 35 unit (0.35 mL) subcut QAM #0 mL 05/20/23 mL) subcutaneous pen (Lantus Solostar U-100 Insulin) magnesium oxide 400 mg (241.3 mg 400 mg PO DAILY #0 tabs 05/20/23 magnesium) tablet polyethylene glycol 3350 17 gram 17 g PO DAILY #0 ea 05/20/23 oral powder packet sulfamethoxazole 800 1 tab PO Q12H #0 tabs 05/20/23 mg-trimethoprim 160 mg tablet Previous Rx's Medication Instructions Recorded gabapentin 800 mg tablet 800 mg PO QID #360 tabs 12/04/22 blood-glucose meter,continuous #1 ea 12/05/22 (Dexcom G6 Banking And Finance Instructor) blood-glucose sensor (Dexcom G6 #3 ea 12/05/22 Sensor device) blood-glucose transmitter (Dexcom #1 ea 12/05/22 G6 Transmitter device) insulin glargine 100 unit/mL (3 80 unit (0.8 mL) subcut QPM #15 mL 04/16/23 mL) subcutaneous pen (Lantus Solostar U-100 Insulin) clonazepam 1 mg tablet 1 mg PO DAILY PRN PRN anxiety #30 05/03/23 tabs aspirin 81 mg chewable tablet 81 mg CH DAILY #0 tabs 05/20/23 (Children's Aspirin) clonazepam 0.5 mg tablet 0.5 mg PO BID #0 tabs 05/20/23 clopidogrel 75 mg tablet 75 mg PO DAILY #0 tabs 05/20/23 insulin aspart U-100 100 unit/mL 0 units (0 mL) subcut 05/20/23 (3 mL) subcutaneous pen 0800,1200,1700 #0 mL insulin glargine 100 unit/mL (3 35 unit (0.35 mL) subcut QAM #0 mL 05/20/23 mL) subcutaneous pen (Lantus Solostar U-100 Insulin) magnesium oxide 400 mg (241.3 mg 400 mg PO DAILY #0 tabs 05/20/23 magnesium) tablet polyethylene glycol 3350 17 gram 17 g PO DAILY #0 ea 05/20/23 oral powder packet sulfamethoxazole 800 1 tab PO Q12H #0 tabs 05/20/23 mg-trimethoprim 160 mg tablet Allergies Allergy/AdvReac Type Severity Reaction Status Date / Time codeine AdvReac itching Verified 05/13/23 09:54 and bloutchy naloxone HCl [From Narcan] AdvReac IT Verified 05/13/23 09:54 INTERACTS WITH MY METHADONE pentazocine lactate AdvReac makes me Verified 05/13/23 09:54 [From Erica] deathly ill Narcotic AdvReac H/O drug Uncoded 05/13/23 09:54 abuse narcotic antagonists AdvReac withdrawls Uncoded 05/13/23 09:54 General ANNE: 2 Review of Systems Narrative: ROS received From Family and EMS. 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) Osteomyelitis of second toe of left foot (Acute) Diabetic infection of right foot (Acute) Cellulitis of foot, right (Acute) Acute kidney injury (Acute) MRSA bacteremia (Acute) Osteomyelitis of toe of right foot (Acute) Foot infection (Acute) Cellulitis (Acute) Osteomyelitis due to type 2 diabetes mellitus (Acute) left great toe Hypothyroidism (Chronic) Osteomyelitis of great toe of left foot (Acute) Chronic ulcer of great toe (Acute) Amputation of toe of right foot (Acute) Hyperlipidemia (Acute) Ganglion cyst of finger of right hand (Acute) Onychomycosis (Acute) Erectile dysfunction (Acute) Chronic pain (Chronic) ADHD (Acute) Polyp of colon, adenomatous (Acute) Adenoma of right adrenal gland (Acute) Diverticulosis (Acute) Asthma (Chronic) Staphylococcus epidermidis bacteremia (Acute) Cognitive impairment (Acute) Acute cerebrovascular accident (CVA) (Acute) Medical History Anxiety Diabetes Disorder of tendon of right hand Hepatitis C History of amputation of great toe History of back pain Hyperglycemia Toe osteomyelitis, right Right great toe Surgical History History of appendectomy History of inguinal hernia repair History of liver biopsy (~01/2001) 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 DOS: 01/15/19 Family History Brother Heart disease Father Congestive heart failure Mother Congestive heart failure Social History Smoking/Tobacco Use Status: Current every day Tobacco Type: cigars Smoking risk assessment performed?: Yes Alcohol Intake: former Drug use: Current Sobriety Substance use type: former substance user Caregiver/Support person: No Communication Needs: Hard of Hearing and Corrective Lenses Pets and animals: Yes Pets and animals: cat(s) and dog(s) Sexually active: No Do you think of yourself as: straight/heterosexual Current gender identity: male What is your relationship status?: How often do you talk on the phone with friends or family?: three or more times per week How often do you get together with friends or relatives?: three or more times per week How often do you attend mandaen or adventism services?: decline to answer Do you belong to any clubs or organized social groups?: no Panel score (0-1 are the most socially isolated patients): 2 What type of physical activity do you participate in: none Frequency: does not exercise Richa/Hinduism: None Special richa needs: No Seatbelt use: always Helmet use: No Drive intox or ride w/intox car driver: No Do you feel safe at home: Yes Do you feel safe in your relationship?: Yes Exam Narrative Exam Narrative: Constitutional: Confused, nonverbal, right-sided paresthesias and deficit from previous stroke, moans to verbal stimulation and physical stimulation, appears stated age. thin body habitus. Head: Normocephalic, no trauma. Eyes: Pupils PERRL, Red reflex noted, EOM's intact. Eyelids symmetrical without lesions, discharge, or swelling. ENT: Bilateral TM's WNL, External ear normal to inspection, no mastoid TTP, swelling, or erythema, Nasal turbinates WNL, no nasal discharge. Dry mucous membranes Chest: RRR, Normal S1, S2, distal pulses intact. Resp: Lungs congested to auscultation bilaterally, no wheezes, rales, Abdomen: Soft, non-distended, Normoactive bowel sounds all 4 quads. Ecchymosis noted on bilateral lower abdomen presumed from previous Lovenox injections, Musculoskeletal: Unable to assess gait, patient does have dressing from diabetic ulcers to his left lower foot Skin: Multiple IV sticks noted to extremities with surrounding ecchymosis capillary refill less than 2 sec. Neurologic: Motor: No deficits noted. Sensory: Intact bilaterally all 4 extremities. Reflexes: DTR's intact bilaterally.. Hematologic/Lymphatic: No ecchymosis, no lymphadenopathy. See additional assessments below Const General: ill appearing chronically Nutritional Appearance: thin Orientation: confused and other (Aphagic moans responsive to painful stimulus and verbal stimulus nonverbal) Limitations: altered mental status and physical limitations Skin General skin exam: crusts Lesions: lesion noted Wounds: wounds noted (Ulcers noted to left lower foot, there is a dressing in place, toes are mis) Neuro General: patient confused and unable to assess gait Cognition: abnormal cognition Speech: expressive aphasia Critical Care Time Critical Care Time Critical Care Time: Yes Total Critical Care Time: 90 Attestation: I spent greater than 35 minutes addressing this patient's acute life threatening illness. This time was spent engaged in actions directly related to the patient's care. Failure to initiate these interventions would have likely resulted in clinically significant or life threatening deterioration in the patients condition. Sign Out Sign Out Data: Sign Out Comment: Pending Disposition. 73 year old male history of acute Left sided CVA dx on 05-13, discharged to [facility] and then discharged from [facility] yesterday into the care of his son Stephen. Report that patient's mental status was declining over the last 4 days, patient became combative pulled out his IV had no vascular access and stopped eating and drinking. Patient has not had any of his medications or fluids for the last 4 days. No p.o. intake due to refusing. Patient presented tachycardic elevated troponin to 20, was given metoprolol 5 mg IV, proBNP is greater than 7000, CT shows edema around the left side of his brain which they cannot rule out evolving CVA versus healing CVA, he did have an MRI on May 16, he is a diabetic, blood sugar 430. Patient may need to be considered for feeding tube placement and further care for diabetes and elevated troponin. At the time of signout patient is stable maintaining his airway O2 sat is 95% on room air blood pressure is 150/80. He does have a right-sided femoral triple-lumen catheter which was placed by Dr. Dasia CUETO. Last updated by Kayy Godfrey, OLGA at 06/16/23 17:03
[2023-06-16 11:43] LABS: BE (Venous) -2 mmol/L (-2-3); HCO3 (Venous) 23 mmol/L (23-28); O2 Sat (Venous) 70 %; TCO2 (Venous) 20 mmol/L (24-29); pCO2 (Venous) 38 mmHg (41-51); pH (Venous) 7.39 (7.31-7.41); pO2 (Venous) 36 mmHg
[2023-06-16 11:49] LABS: Abs Immature Grans 0.08 10^3/uL (0.0-0.06); Absolute Lymphocyte Count 1.71 10^3/uL (1.2-3.4); Basophils % 0.2; Immature Grans % 0.6; MCH 28.1 pg (27.0-33.0); MCHC 33.3 % (32.0-36.0); MCV 84 fL (80-95); MPV 10.5 fL (8.0-11.0); Monocytes % 4.6; Neutrophils % 81.6; Platelet Count 456 10^3/uL (130-400); RBC 5.69 10^6/uL (4.36-5.78); RDW 14.4 % (11.8-14.1); WBC 13.15 10^3/uL (4.4-10.8)
[2023-06-16 11:52] LABS: Absolute Basophil Count 0.03 10^3/uL (0.0-0.2); Absolute Neutrophil Count 10.73 10^3/uL (1.2-6.7)
--- NOTE | 2023-06-16 11:52 | NUR.NOTE ---
Nursing Note: Son states that the patient was not behaving in the way that he is now. at the present he is not eating or drinking, and not acting himself post stroke. Son states that four days ago he was able to drink and eat. He ishaving right sided weakness and is not able to speak, this has been present since his stroke last month and not a new finding. The pt was dropped off to his son last night and the son called primary care who instructed him to have the pt be brought into the hospital. The pts blood sugar per EMS is 475. MARKETING DATABASE CONSULTANT and MD attempting to place a PIV with US.
[2023-06-16 11:59] LABS: INR 1.7 (0.9-1.1); PTT Activated 28.8 sec (21.5-31.9); Prothrombin Time 16.9 sec (9.3-11.0)
[2023-06-16 12:05] LABS: ALT 30 U/L (16-63); AST 30 U/L (15-37); Albumin 2.8 g/dL (3.4-5.0); Alkaline Phosphatase 162 U/L (46-116); Anion Gap 17.4 mmol/L (3-11); BUN 39 mg/dL (7-18); Bilirubin, Total 0.7 mg/dL (0.2-1.0); CO2 22.6 mmol/L (21.0-32.0); CREATININE 1.2 mg/dL (0.70-1.30); Chloride 102 mmol/L (98-107); Estimated GFR 64.65 (mL/min/1.73m2); Glucose 432 mg/dL (74-106); Magnesium 1.8 mg/dL (1.8-2.4); Potassium 3.3 mmol/L (3.5-5.1); Sodium 142 mmol/L (136-145); Total Protein 7.9 g/dL (6.4-8.2)
[2023-06-16] MEDS: LORazepam 2 MG/ML VIAL IM (12:10)
[2023-06-16 12:11] LABS: NT-proBNP 7441 pg/mL (<300)
[2023-06-16 12:15] LABS: Troponin I 220 ng/L (<or=60)
--- NOTE | 2023-06-16 12:26 | NUR.NOTE ---
Nursing Note: Michel cath removed that patient arrived with. Upon deflating that balloon this RN npted that the fluid that was coming out of the balloon was the same color as the urine in the bag. New michel was inserted and is patent and draining
[2023-06-16 12:55] LABS: Bilirubin Moderate (Negative); Blood Large (Negative); Clarity Sl Cloudy (Clear); Glucose Negative (Negative); Ketones >=160 mg/dL (Negative); Leukocyte Esterase Negative (Negative); Nitrite Negative (Negative); Specific Gravity >= 1.030 (1.005-1.025); Urobilinogen 0.2 mg/dL (Up to 0.2)
[2023-06-16] MEDS: Normal Saline 1,000 ML 1000 ML IV (13:01)
[2023-06-16] MEDS: Metoprolol 5 MG/5 ML VIAL IVP ×3 (13:11→19:54)
[2023-06-16 13:13] LABS: Bacteria Negative HPF (Negative); C & S Indicated? No; Casts Negative LPF (Negative); Crystals Negative HPF (Negative); Epithelial Cells Negative HPF (Negative); Mucus Negative (Negative); Other Cells Few Renal (Negative); RBC 20-50 HPF (0-2)
[2023-06-16 14:25] LABS: Troponin I 205 ng/L (<or=60)
--- NOTE | 2023-06-16 14:28 | NUR.NOTE ---
Nursing Note: Patient PIV in the right arm is no longer functional. FITNESS AND WELLNESS INSTRUCTOR and MD notified of this. FITNESS AND WELLNESS INSTRUCTOR states that she is going to consult general surgery and the hospitalist in regards to the next steps for the patient
--- NOTE | 2023-06-16 14:44 | NUR.NOTE ---
Nursing Note: MD going to place a femoral central line. Pt PIVs not maintaining patency. Pt daughter in room and would like for central line to be place. SYSTEM INTEGRATION ENGINEER talked to the daughter about him being a full code and what that means. Daughter would like all measures to be taken if need be.
--- NOTE | 2023-06-16 15:10 | DI.VRAD_ITS ---
PROCEDURE INFORMATION: Exam: CT Head Without Contrast Exam date and time: 06/16/2023 2:12 PM Age: 73 years old Clinical indication: Other: AMS HX of CVA; Patient HX: Right sided paralysis TECHNIQUE: Imaging protocol: Computed tomography of the head without contrast. COMPARISON: MR BRAIN WO 05/16/2023 2:18 PM FINDINGS: Brain: There is evolving left anterolateral frontal (23 series 4), left high parietal (16 series 4) and foci of left periventricular infarcts in the watershed zone in the left frontal and parietal lobes between anterior and middle cerebral arteries. There is mild residual edema adjacent to infarct in the left frontal and parietal lobes(36 series 2, 52 series 2) with effacement of the local sulci. There is stable small left cerebellar hemisphere infarct with no adjacent edema seen.. There is no hemorrhagic conversion. There is no new infarct. There are mild nonspecific patchy foci of periventricular white matter hypodensities most likely due to 1 small vessel ischemic changes. Cerebral ventricles: No ventriculomegaly. Paranasal sinuses: Visualized sinuses are unremarkable. No fluid levels. Mastoid air cells: Visualized mastoid air cells are well aerated. Auditory system: There is cerumen in the left external auditory canal. Nasal cavity: There is right to leftward nasal septal deviation. Bones/joints: Unremarkable. No acute fracture. Soft tissues: Unremarkable. IMPRESSION: 1. There are evolving subacute infarcts in the left anterolateral frontal lobe and left high parietal lobe . There is mild residual edema with effacement of the local sulci. The edema suspected to be slightly more prominent in the left parietal lobe infarct than previous MR exam , evolving or new subacute infarct in the same region cannot be excluded. There is no midline shift. Stable evolving subacute to chronic infarct in the left periventricular white matter in the watershed zone of the frontal and parietal lobes and stable infarct in left cerebellar hemisphere which have no significant edema may have become late subacute to chronic. No new regional infarct seen. There is no acute intracranial hemorrhage. If the patient reports new symptoms, consider further evaluation with MRI . 2. THIS REPORT CONTAINS FINDINGS THAT MAY BE CRITICAL TO PATIENT CARE. The findings were verbally communicated via telephone conference at 3:08 PM EDT on 06/16/2023 with ALEX GODFREY. 3. The findings were acknowledged and understood. Dictated and Authenticated by: Brian Doll MD. Ordering:SHALINI Sultana MD
--- NOTE | 2023-06-16 15:12 | DI.VRAD_ITS ---
PROCEDURE INFORMATION: Exam: XR Chest Exam date and time: 06/16/2023 2:17 PM Age: 73 years old Clinical indication: Other: AMS TECHNIQUE: Imaging protocol: Radiologic exam of the chest. Views: 1 view. COMPARISON: CT CHEST/ABD/PEL W 05/15/2023 8:45 PM FINDINGS: Lungs: No consolidation. Pleural spaces: No pleural effusion. No pneumothorax. Heart/Mediastinum: No cardiomegaly. Bones/joints: Unremarkable. IMPRESSION: No acute findings. Dictated and Authenticated by: Brian Doll MD. Ordering:SHALINI Sultana MD
--- NOTE | 2023-06-16 15:40 | NUR.NOTE ---
Nursing Note: placed triiple lumen femoral line.
--- NOTE | 2023-06-16 15:45 | RT.EKG_ITS ---
APPROVED REPORT Exam: Resting ECG Reason for Exam: Repeat, Elevated Trop Patient Location: E HR:97 bpm ECG Measurements Heart Rate 97 AXIS [place] 184 P 80 QRSd 97 QRS -40 QT 396 T -2 QTc 503 Conclusion Sinus rhythm...normal P axis, V-rate 60- 99 Probable left atrial enlargement...P >50mS, <-0.10mV V1 Left axis deviation...QRS axis (-30,-90) Prolonged QT interval...QTc >500mS
[2023-06-16] MEDS: Furosemide 40 MG/4 ML VIAL IVP (15:46)
--- NOTE | 2023-06-16 15:47 | NUR.NOTE ---
Nursing Note:DEMAND EQUIPMENT REPAIRER states that she would like fluids going at 500ml?hr. Also still wanted lasix IVP. RN adjusted rate of NS to 500mL/hr and pushed lasix.
[2023-06-16 15:57] LABS: Source Nasal/Nares
--- NOTE | 2023-06-16 16:12 | W.ED.PROC ---
Date of service: 06/16/23 Time of Service: 16:12 Procedures Central Line Placement Right Femoral: Time Out Performed: Yes Patient Placed on Monitor/Pulse Ox: Yes MD Prep: mask, gown and gloves Central Line Prep: Chlorhexidine scrub Local Anesthetic: Lidocaine 1% Amount of anesthesia used (mL): 5 Ultrasound Used for Placement: Yes Central Line Lumen Inserted: triple Post Procedure: good blood return, all ports aspirated, flushed, capped and sutured in place with 3-0 nylon Patient Tolerated Procedure: well Complications: none Additional Comments: attempted to perform an IJ but pt would not keep his head turned to the side and would move his head frequently and couldn't follow commands, also kept grabbing the drape and sterile area with his left hand so could not safely place an IJ or subclavian, which is why right femoral was placed.
[2023-06-16 16:31] LABS: COVID-19 PCR Negative (Negative)
--- NOTE | 2023-06-16 17:14 | PGE_ITS ---
Date of Service Date of service: 06/16/23 Time of Service: 17:14 Subjective Subjective Interval history since last seen: I was contacted for admission of this patient. The patient presented 4 or 5 days after he stopped eating or drinking at the [facility]. He had also stopped taking his medications, including his methadone. Per the ED provider, the patient was recommended to have a feeding tube there. He had an aspiration pneumonia for which he was not able to get his IV antibiotics because he had lost his IV at the rehab. PT discharge summary stated that he had a word finding deficit on discharge from [facility]. H owever, in our ER, he was completely nonverbal. His CT of the head was read as 1. Evolving subacute infarct.? No new infarct is identified. The patient's description sounds like he had a new CVA 4-5 days ago when he stopped eating and drinking, and this is especially alarming because he would not even take the methadone. Given that he has clinically recurrent strokes while on aspirin/plavix, I think that he could benefit from a SILVIANO, which our facility does not offer. He needs a PEG tube, which he would not be a candidate to get at our facility by anesthesia criteria. The elevated troponin is likely demand ischemia from a rapid ventricular rate and I do not think is artist representative of ACS. I strongly recommend transfer to a tertiary care facility where SILVIANO and PEG insertion would be available since the patient is still full code and the family would like aggressive care. Objective Last Vital Signs Temp 36.9 C 06/16/23 15:52 Pulse 96 H 06/16/23 15:44 Resp 14 06/16/23 15:44 BP 122/73 06/16/23 15:44 Pulse Ox 95 06/16/23 15:44 Laboratory Results - last 24 hr 06/16/23 06/16/23 06/16/23 11:16 11:35 11:35 WBC RBC Hgb Hct MCV MCH MCHC RDW Plt Count MPV Immature Gran % Neutrophils % Lymphocytes % Monocytes % Eosinophils % Basophils % Nucleated RBC % Absolute Neutrophils Absolute Lymphocytes Absolute Monocytes Absolute Eosinophils Absolute Basophils PT 16.9 H INR 1.7 H APTT 28.8 VBG pH 7.39 VBG pCO2 38 L VBG pO2 36 VBG HCO3 23 VBG Total CO2 20 L VBG O2 Saturation 70 VBG Base Excess -2 Sodium Potassium Chloride Carbon Dioxide Anion Gap BUN Creatinine Est GFR (CKD-EPI 2020) Glucose Calcium Magnesium Total Bilirubin AST ALT Alkaline Phosphatase Troponin I NT-Pro-B Natriuret Pep 7441 H Total Protein Albumin Urine Color Urine Clarity Urine pH Ur Specific [place] Urine Protein Urine Ketones Urine Blood Urine Nitrite Urine Bilirubin Urine Urobilinogen Ur Leukocyte Esterase Urine RBC Urine WBC Ur Epithelial Cells Urine Crystals Urine Bacteria Urine Casts Urine Mucus Urine Other Ur Culture Indicated? Urine Glucose COVID-19 Source SARS-CoV-2 (PCR) 06/16/23 06/16/23 06/16/23 11:35 11:35 12:31 WBC 13.15 H RBC 5.69 Hgb 16.0 Hct 48.0 MCV 84 MCH 28.1 MCHC 33.3 RDW 14.4 H Plt Count 456 H MPV 10.5 Immature Gran % 0.6 Neutrophils % 81.6 Lymphocytes % 13.0 Monocytes % 4.6 Eosinophils % 0.0 Basophils % 0.2 Nucleated RBC % 0.0 Absolute Neutrophils 10.73 H Absolute Lymphocytes 1.71 Absolute Monocytes 0.60 Absolute Eosinophils 0.00 Absolute Basophils 0.03 PT INR APTT VBG pH VBG pCO2 VBG pO2 VBG HCO3 VBG Total CO2 VBG O2 Saturation VBG Base Excess Sodium 142 Potassium 3.3 L Chloride 102 Carbon Dioxide 22.6 Anion Gap 17.4 H BUN 39 H Creatinine 1.2 Est GFR (CKD-EPI 2020) 64.65 Glucose 432 H Calcium 9.0 Magnesium 1.8 Total Bilirubin 0.7 AST 30 ALT 30 Alkaline Phosphatase 162 H Troponin I 220 H* NT-Pro-B Natriuret Pep Total Protein 7.9 Albumin 2.8 L Urine Color Desiree Urine Clarity Sl Cloudy Urine pH 6.0 Ur Specific [place] >= 1.030 H Urine Protein >=300 H Urine Ketones >=160 H Urine Blood Large H Urine Nitrite Negative Urine Bilirubin Moderate H Urine Urobilinogen 0.2 Ur Leukocyte Esterase Negative Urine RBC 20-50 H Urine WBC 3-5 Ur Epithelial Cells Negative Urine Crystals Negative Urine Bacteria Negative Urine Casts Negative Urine Mucus Negative Urine Other Few Renal Ur Culture Indicated? No Urine Glucose Negative COVID-19 Source SARS-CoV-2 (PCR) 06/16/23 06/16/23 13:57 15:53 WBC RBC Hgb Hct MCV MCH MCHC RDW Plt Count MPV Immature Gran % Neutrophils % Lymphocytes % Monocytes % Eosinophils % Basophils % Nucleated RBC % Absolute Neutrophils Absolute Lymphocytes Absolute Monocytes Absolute Eosinophils Absolute Basophils PT INR APTT VBG pH VBG pCO2 VBG pO2 VBG HCO3 VBG Total CO2 VBG O2 Saturation VBG Base Excess Sodium Potassium Chloride Carbon Dioxide Anion Gap BUN Creatinine Est GFR (CKD-EPI 2020) Glucose Calcium Magnesium Total Bilirubin AST ALT Alkaline Phosphatase Troponin I 205 H* NT-Pro-B Natriuret Pep Total Protein Albumin Urine Color Urine Clarity Urine pH Ur Specific [place] Urine Protein Urine Ketones Urine Blood Urine Nitrite Urine Bilirubin Urine Urobilinogen Ur Leukocyte Esterase Urine RBC Urine WBC Ur Epithelial Cells Urine Crystals Urine Bacteria Urine Casts Urine Mucus Urine Other Ur Culture Indicated? Urine Glucose COVID-19 Source Nasal/Nares SARS-CoV-2 (PCR) Negative Time Spent with Patient Time Spent with Patient: <25 minutes Time was spent: referring, communicating with other health animal caregiver and indepentently interpreting results
--- NOTE | 2023-06-16 17:21 | NUR.NOTE ---
Nursing Note:RN in room while midline being placed. Pt tolerated insertion well.
[2023-06-16 17:43] LABS: BUN 45 mg/dL (7-18); CREATININE 1.2 mg/dL (0.70-1.30); Calcium 8.3 mg/dL (8.5-10.1); Chloride 105 mmol/L (98-107); Estimated GFR 64.65 (mL/min/1.73m2); Sodium 144 mmol/L (136-145)
[2023-06-16 17:46] LABS: Glucose 446 mg/dL (74-106)
[2023-06-16 18:10] LABS: Troponin I 170 ng/L (<or=60)
--- NOTE | 2023-06-16 19:25 | W.EDPROG ---
Date of service: 06/17/23 Time of Service: 07:11 Medical Decision Making 1720-received signout from Addie Pace NP. Please see previous note for initial presentation and care of patient. Patient pending [facility] consult. Consulted with [facility] hospital medicine team Dr Dunham who after full discussion of case stated that patient was not a candidate for an emergent PEG tube nor do they feel this is a standard emergent procedure. Given continued downward trending troponin and baseline condition they did not feel that cardiology would intervene at this time and felt that a echo on when available at our facility would be more than appropriate. They recommended continued hydration. We will start patient on maintenance fluids 150 an hour and continue to monitor, given that patient is still tachycardic with heart rate in the low 100s will give additional dose of metoprolol. Will reach out to our hospitalist for further discussion of case. Consulted hospitalist Dr. Johnson at our facility and he did state concerning finding the patient initially presented with SVT with rate of 169, signs of demand ischemia, drug withdrawal, elevated INR, hypokalemia, hyperglycemia, poor oral intake along with elevated BNP that may make hydration difficult. He stated that he agreed with previous hospitalist consult that patient is not appropriate for care here due to the complexity of multiple issues at the same time. Did speak with nursing who stated that patient had not received his methadone due to not willing to take or swallow anything and previous concern by initial provider of potential aspiration. Due to this we will give patient small amount of hydromorphone. Spoke with [facility] Dr. Parson with hospital medicine. He also stated the same concern as far as needed every tertiary care center versus trending labs and continuing hydration given that heart rate blood pressure and other things are being corrected. Given this did request to speak with [facility] given significant pushback from [facility] medicine team to see if they would be able to facilitate transfer given that they did have more cardiac services that we have available. Spoke with transfer center and [facility] does not have capacity to take patient. Spoke with Dr. Parson again at [facility] who did state understanding for patient need of PEG tube and echo but did not state that these need to be done on an emergent basis which they are only excepting patients on an emergent basis at this time. We will continue to reach out to additional facilities but at this time to tertiary care centers feel that patient does not require emergent tertiary care services and that patient is more than appropriate to continue management and monitoring at our facility with the understanding for any acute worsening of patient's condition that he would at that time meet criteria for transfer. [facility] stated that they did not have any bed capacity and refused patient given that he is not ICU level status [facility] also refused patient given that he is not ICU level status and they have no other capacity. Spoke with Dr. Resendez [facility]. Discussed full case with Dr. Resendez and patient's need of surgery cardiology, echo, and PEG tube. Also discussed patient's high concern for methadone withdrawal, patient's SVT, hyperglycemia with consideration of DKA and hypokalemia. After discussion of case they excepted patient for ED to ED transfer. Did recommend continuing fluids and radiology insulin. Patient had already received 20 mEq of IV insulin due to potassium at 3.0. This repeat labs were performed and BNP improved to fourth thousand 911, troponin continues to decrease and now is 167, potassium has improved to 3.4 which I feel is reassuring but will give 10 more milliequivalents along with the normal saline at 150 an hour that is continuing to run given that we are we will give 10 units of insulin. We will arrange transfer to facility. Did contact patient's son and updated him on patient's case. Son was very frustrated and irritated given that patient was transferred to [facility] emergency department last night for the same concern of altered mental status. For unknown reasons patient was discharged at that time home to his house instead of back to rehab facility in spite of declining condition. Son seemed very frustrated about needing to have patient transferred so far away again. Did discuss why I did feel that patient needed inpatient treatment which son was agreeable to. Dr. Vaughn's documentation: Patient was signed out to me by Horace Mcneill pending transfer to [place]. Patient remained stable throughout the night and required no additional intervention. Electrolytes stabilized. Anion gap improved. Patient did not revert to a tachycardic episode again. Patient has been accepted for an ER to ER transfer after discussion between Horace Mcneill and the ED physician. Transport will be coming in the next few minutes. Sign Out Sign Out Data: Sign Out Comment: Pending Disposition. 73 year old male history of acute Left sided CVA dx on 05-13, discharged to [facility] rehab and then discharged from [facility] rehab yesterday into the care of his son Stephen. Report that patient's mental status was declining over the last 4 days, patient became combative pulled out his IV had no vascular access and stopped eating and drinking. Patient has not had any of his medications or fluids for the last 4 days. No p.o. intake due to refusing. Patient presented tachycardic elevated troponin to 20, was given metoprolol 5 mg IV, proBNP is greater than 7000, CT shows edema around the left side of his brain which they cannot rule out evolving CVA versus healing CVA, he did have an MRI on May 16, he is a diabetic, blood sugar 430. Patient may need to be considered for feeding tube placement and further care for diabetes and elevated troponin. At the time of signout patient is stable maintaining his airway O2 sat is 95% on room air blood pressure is 150/80. He does have a right-sided femoral triple-lumen catheter which was placed by Dr. Dasia CUETO. Last updated by Kayy Pace NP at 06/16/23 17:03 Sign Out Comment: Patient signed out to Dr. Vaughn pending availability for transport down to [facility]. Patient remains in stable condition with no acute worsening of symptoms. Last updated by Ben Mcneill NP at 06/17/23 00:34 Sign Out Comment: Patient signed out pending transfer. Transportation is now available. Patient will be transferred down to [place]. Patient stable throughout the night requiring no additional interventions. Last updated by David Vaughn DO at 06/17/23 07:15 Discharge Plan Disposition Patient Disposition: Transfer-Acute Inpatient Care Specific Acute Inpt Facility: [place] Discharge Details Clinical Impression: CVA, old, cognitive deficits, Dehydration, Elevated troponin I level, Hyperglycemia, Acute hypokalemia, SVT (supraventricular tachycardia), Acute alteration in mental status Primary Care Provider: Galen Ramirez ED Provider: Anderson Cruz Home Meds and New Rx's Prescriptions: No Action cholecalciferol (vitamin D3) 250 mcg (10,000 unit) capsule 250 mcg PO DAILY Rx Instructions: 07/31/22 unsure of dose jwo gabapentin 800 mg tablet 800 mg PO QID Qty: 360 4RF clonazepam 1 mg tablet 1 mg PO DAILY PRN PRN (Reason: anxiety) Qty: 30 5RF aspirin 81 mg tablet,delayed release (DR/EC) 81 mg PO DAILY albuterol sulfate 90 mcg/actuation HFA aerosol inhaler 2 puff inhalation Q6H PRN (DME) Blood Glucose Test Strip See Rx Instructions .Route Rx Instructions: As directed (DME) lancets 28 gauge misc See Rx Instructions .Route Rx Instructions: As directed (DME) blood-glucose meter Kit See Rx Instructions .Route Rx Instructions: As directed (DME) pen needle, diabetic [1st Tier Unifine Pentips] 32 gauge x 5/32 needle See Rx Instructions .Route Rx Instructions: As directed (DME) Dexcom G6 Reaming Machine Tender Misc See Rx Instructions .ROUTE .MEDSUPPLY Qty: 1 3RF Rx Instructions: Continuous glucose monitor [place] Dexcom G6 Sensor Device See Rx Instructions .ROUTE .MEDSUPPLY Qty: 3 3RF Rx Instructions: Continuous glucose monitor ([facility] Dexcom G6 Transmitter Device See Rx Instructions .ROUTE .MEDSUPPLY Qty: 1 4RF Rx Instructions: Continuous glucose monitor insulin glargine [Lantus Solostar U-100 Insulin] 100 unit/mL (3 mL) insulin pen 80 unit SUBCUT QPM Qty: 15 12RF methadone 10 MG/ML concentrate 225 mg PO DAILY metformin 500 mg tablet extended release 24 hr 500 mg PO BID ascorbic acid (vitamin C) [Vitamin C] 1,000 mg tablet 1,000 mg PO DAILY carvedilol 12.5 mg tablet 12.5 mg PO DAILY Patient Comments: TAKE ONE TABLET BY MOUTH TWICE A DAY amlodipine 5 mg tablet 5 mg PO DAILY Patient Comments: Take 1 tablet by mouth twice a day zinc 50 mg tablet 50 mg PO DAILY insulin glargine [Lantus Solostar U-100 Insulin] 100 unit/mL (3 mL) Insulin Pen 35 unit subcut QAM Qty: 0 0RF aspirin [Children's Aspirin] 81 mg Tablet,Chewable 81 mg CH DAILY Qty: 0 0RF clonazepam 0.5 mg Tablet 0.5 mg PO BID Qty: 0 0RF clopidogrel 75 mg Tablet 75 mg PO DAILY Qty: 0 0RF magnesium oxide 400 mg (241.3 mg magnesium) Tablet 400 mg PO DAILY Qty: 0 0RF insulin aspart U-100 100 unit/mL (3 mL) Insulin Pen 0 units subcut 0800,1200,1700 Qty: 0 0RF polyethylene glycol 3350 17 gram Powder In Packet 17 g PO DAILY Qty: 0 0RF sulfamethoxazole-trimethoprim 800-160 mg Tablet 1 tab PO Q12H Qty: 0 0RF levothyroxine 137 mcg Tablet 137 mcg PO DAILY Discharge Data Discharge Date/Time-TO BE ENTERED AT DEPARTURE: 06/17/23 07:49
[2023-06-16] MEDS: POTASSIUM CHLORIDE 20 MEQ/100 ML BAG 50 MEQ IVPB (19:54)
--- NOTE | 2023-06-16 19:54 | NUR.NOTE ---
Nursing Note: COUNTRY DIRECTOR asked RN to give pt his methadone orally. RN attempted to give pt the medication and the patient shopok his head no and tried to push my hand away. RN did not give methadone. COUNTRY DIRECTOR gave orders for IVP metoprolol and IV K+. RN administered.
[2023-06-16] MEDS: HYDROmorphone 2 MG/ML SYR 0.5 MG IVP (20:02)
--- NOTE | 2023-06-16 21:15 | RT.EKG_ITS ---
APPROVED REPORT Exam: Resting ECG Reason for Exam: Abnormal monitor rhythm Patient Location: E HR:99 bpm ECG Measurements Heart Rate 99 AXIS [place] 179 P 83 QRSd 94 QRS -18 QT 401 T 20 QTc 516 Conclusion Sinus rhythm...normal P axis, V-rate 60- 99 Right atrial enlargement...P>0.25mV 2 lds or<-0.24mV aVR/aVL Prolonged QT interval...QTc >500mS Physician: no stemi
[2023-06-16] MEDS: Normal Saline 1,000 ML 150 ML IV (21:48)
[2023-06-16 21:55] LABS: ALT 30 U/L (16-63); AST 25 U/L (15-37); Albumin 2.4 g/dL (3.4-5.0); Alkaline Phosphatase 135 U/L (46-116); Anion Gap 13.5 mmol/L (3-11); BUN 45 mg/dL (7-18); Bilirubin, Total 0.5 mg/dL (0.2-1.0); CO2 25.5 mmol/L (21.0-32.0); CREATININE 1.2 mg/dL (0.70-1.30); Calcium 8.4 mg/dL (8.5-10.1); Chloride 106 mmol/L (98-107); Estimated GFR 64.65 (mL/min/1.73m2); Glucose 458 mg/dL (74-106); NT-proBNP 4911 pg/mL (<300); Potassium 3.4 mmol/L (3.5-5.1); Sodium 145 mmol/L (136-145); Total Protein 6.7 g/dL (6.4-8.2)
[2023-06-16 21:59] LABS: Troponin I 167 ng/L (<or=60)
[2023-06-16] MEDS: POTASSIUM CHLORIDE 10 MEQ/100 ML BAG 100 MEQ IVPB (23:02)
[2023-06-16] MEDS: Insulin REGULAR-Human 100 UNITS/ML UNIT 10 UNITS SC (23:02)
[2023-06-17] VITALS (53 sets, daily range): BP systolic 151–191; BP diastolic 52–89; PULSE 60–106; RESP 7–17; O2SAT 93–97
[2023-06-17 01:02] LABS: Anion Gap 9.8 mmol/L (3-11); BUN 48 mg/dL (7-18); CO2 27.2 mmol/L (21.0-32.0); CREATININE 1.2 mg/dL (0.70-1.30); Calcium 8.1 mg/dL (8.5-10.1); Chloride 108 mmol/L (98-107); Estimated GFR 64.65 (mL/min/1.73m2); Glucose 436 mg/dL (74-106); Potassium 3.3 mmol/L (3.5-5.1); Sodium 145 mmol/L (136-145)
[2023-06-17] MEDS: Metoprolol 5 MG/5 ML VIAL IVP (03:07)
== END 2023-06-17 07:49 | disposition short-term general hospital (02) ==
PROVIDERS: Nurse Practitioner Family; Registered Nurse Emergency; Emergency Provider Emergency Medicine; PCP Nurse Practitioner Family
DX: E86.0 Dehydration (principal); R77.8 Other specified abnormalities of plasma proteins; E11.65 Type 2 diabetes mellitus with hyperglycemia; E87.6 Hypokalemia; I47.1 Supraventricular tachycardia; R41.82 Altered mental status, unspecified; I69.319 Unspecified symptoms and signs involving cognitive functions following cerebral infarction
CPT/HCPCS: 36410; 36415; 36416; 51702; 80048; 80053; 82805; 82962; 87040; 87635; 93005; 96365; 96366; 96367; 96372; 96375; 96376; 99291; 99292; 70450; 71045; 81003; 81015; 83735; 83880; 84484; 85025; 85610; 85730; 93010; J1170; J1940; J2060; J3480

== ENCOUNTER → 2023-10-28 02:26 | Outpatient (CLI) | payer MEDICARE, MEDICAID, SELFPAY ==
--- NOTE | 2023-11-04 09:27 | W.SPSTP ---
Date of service: 11/04/23 Time of Service: 08:10 Subjective SPEECH AND LANGUAGE PATHOLOGY TREATMENT NOTE SUBJECTIVE: Patient initially asleep in bed, easily awoken and agreeable to treatment during breakfast meal. Patient alert and very pleasant this morning. Dense expressive aphasia vs apraxia of speech remain a notable communication barrier. Receptive language appeared WFL for conversation and simple commands. Attempted use of communication board without success. Oral care completed prior to meal. OBJECTIVE/ASSESSMENT: Patient self-feeding (using L hand) given min assist (clinician using second spoon to aid in scooping) during breakfast tray, including oatmeal, minced scrambled eggs, milk, and broth. Patient demonstrated one notable cough episode in which wet vocal quality was appreciated. Otherwise, he tolerated entire meal (ate 90% of tray) without overt s/s aspiration. He was also observed to swallow med administered by RN, whole with sips of milk. Patient requested taking all at once, but was provided larger pills one at a time and 2-3 smaller pills, which he tolerated without overt s/s aspiration. Overall, patient demonstrating improved diet tolerance, however ongoing workup/MBSS remains indicated. Education provided to patient re: POC, as he was scheduled for outpatient MBSS last week which he did not show for as he was ultimately hospitalized with dehydration, malnutrition, and R LL pneumonia. Explained rationale for ongoing dysphagia work-up. Utilized written 'yes' and 'no' to ensure consent for study, and Freddieward is agreeable to complete while in-house to further assess and mitigate aspiration risks. Will plan to do MBSS today pending DI availability. Recommend continue current diet parameters/aspiration precautions, with additional recommendations forthcoming. RECOMMENDATIONS: SOLIDS: 5-Minced & Moist Solids LIQUIDS: 0-Thin Liquids - via provale cup or ensure very small sip size and fully upright posture MEDICATIONS: Whole one at a time with sips liquid, or whole in applesauce/pudding Level of Assistance/Supervision: Close supervision/partial assist with trained staff/family for all PO intake Positioning and environment: PO intake only when awake/alert? Reduce auditory and/or visual distractions when eating [place] upright for all PO intake. Oral hygiene Before/after PO intake Using friction with toothbrush on all oral structures as tolerated Communication Recommendations: Allow patient additional time to express self and/or multiple attempts to find word(s) Provide patient with visual aids (smallest possible field of choice) and allow him to make a choice using pointing or repetition Provide assistance with reading text aloud, encouraging spoken repetition (especially of multisyllabic words) Encourage use of relevant gestures to enhance expression PLAN: Frequency: 3-4x/week for 1-2 weeks Modified Barium Swallow Study to be completed as able DISCHARGE RECOMMENDATIONS: Recommend DOCTORATE OF CHIROPRACTIC services either at SNF or Home Health Goals: Therapist Goals: Patient will remain free from aspiration-related illness, malnutrition, and dehydration. Patient/family will verbalize comprehension of education provided re: dx, strategies to maximize functioning, and role of ST. Short Term Goals: Patient will participate in ongoing diagnostic treatment addressing areas of aphasia, dysphagia. Patient will tolerate Minced/Moist Diet and Thin liquids without overt s/s aspiration across 2/2 visits. Patient/caregivers will be independent with safe swallow/risk management strategies. TIME: 810-850 (40 minutes, dysphagia treatment) Coding CPT Codes ORAL FUNCTION THERAPY - 77976 ([id number]) Additional Codes Date of Service ([id number]) Date of service: 11/04/23
--- NOTE | 2023-11-04 11:55 | ST.MBS ---
Date of Service Date of service: 11/04/23 Time of Service: 11:20 Modified Barium Swallow Study Findings: Inpatient Video fluoroscopic Swallowing Evaluation (VFSE) / Modified Barium Swallow Study (MBSS) Speech Language Pathology Report HPI & Patient report of function: Patient is a 73 year old male admitted to [facility] on 10/31/23 following a wellness check in which he was found on the ground unclothed and soiled. He was found to have a probable R pneumonia in addition to dehydration. 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 He currently lives home with his son, and was recently receiving home health CUSHION WORKER services, though discharged due to minimal engagement with therapeutic activities. It does not appear that an MBSS has been completed to date due to a multitude of barriers (see prior CUSHION WORKER evaluation for further detail). Ed was scheduled for an outpatient MBSS 10/28/23, though did not show for this appointment. During this admission, he has been reportedly refusing care at times/pulling pillow or blanket over face. However, Ed was highly agreeable to CUSHION WORKER treatment during breakfast this morning and verbalized agreement for MBSS. He is currently on a L5 Minced/Moist solid and Thin Liquid diet, with concerns for tolerance of liquids. Previous Imaging: CXR 10/31/23: Small area of infiltrate in the mid right lung, not previously present IMPRESSIONS: Ed Federico presents with moderate to severe oral pharyngeal sensorimotor dysphagia characterized primarily by delayed swallow onset/discoordination, resulting in silent aspiration with thin and mildly thick liquids. With thin liquids, there is trace aspiration occurring silently during the swallow (1 out of 2 trials) as a result of delayed pharyngeal swallow onset and delayed laryngeal vestibule closure onset. With both mildly and moderately thick liquids, the delay in pharyngeal swallow onset is notably more pronounced, with pooling in the pyriforms prior to swallow onset. Silent aspiration does occur with mildly thick liquids, resulting from spillover from pyriforms. When prompted to trial a chin tuck, aspiration quantity was acutally more pronounced- suspect increased coordination demands negatively impacting swallow function. Ed tolerated trials of pudding the best, without evidence of penetration/aspiration or pharyngeal retention. See below for further physiologic breakdown of the swallow. Overall, swallow safety and efficiency are impaired, and Ed is considered a high risk for aspiration with both thin and mildly thick liquids, and low-moderate risk for aspiration with other consistencies in light of noticed inconsistencies of performance, exacerbated by fatigue. He is considered a low-moderate risk for malnutrition/dehydration based solely on swallow performance. Diet modification is indicated, with fair swallow prognosis given time since onset, and reported barriers with therapy participation. Education provided to patient re: study results at end of MBSS. Education provided to patient's daughter/MD/nursing following the study in patient's room. RECOMMENDATIONS: Diet Texture Recommendation:? IDDSI LEVEL 5-Minced & Moist Solids LIQUIDS 0-Thin Liquids MEDICATIONS Recommended whole in applesauce/pudding Patient prefers to take pills with liquid. If declining applesauce/pudding, recommend pills one at a time with sip liquid Diet texture modification is per patient's preference; please adjust diet textures at patient's discretion & collaboration with care team. Do not alter medications (e.g., cut)? without advice from your MD or pharmacist. Risk Management Strategies:? Small bites, approx [id number] Small sips, approx 10 mL Control risk factors for aspiration pneumonia via (a) thorough oral hygiene & (b) maintaining physical mobility as tolerated PLAN: CUSHION WORKER to continue to follow while inpatient. Recommend home health vs SNF vs outpatient CUSHION WORKER services at time of discharge for ongoing dysphagia education as well as exploration of AAC (unclear what has been attempted in past. Patient with high frustration re: communication breakdowns) OBJECTIVE Videofluoroscopic Swallow Evaluation (VFSE/MBSS) was conducted in the lateral projection by Speech-Language Pathologist, in collaboration with Radiologist, to evaluate oropharyngeal swallow function. Anatomic view under fluoroscopy: WFL PO Barium Contrast Trials Oral barium water-soluble contrast was administered as follows: IDDSI Level 0 Varibar thin liquid (40% w/v) IDDSI Level 2 Varibar nectar thick/mildly thick liquid (40% w/v) IDDSI Level 3 Varibar thin honey/liquidised/moderately-thick (40% w/v) IDDSI Level 4 Varibar pudding/pureed/extremely thick (40% w/v) MBSImP Component Scores: COMPONENT Scale SCORE 1 Lip closure (0-4) 2 Resulted in escape from interlabial space or lateral juncture, but no extension beyond vermilion border 2 Hold Position (0-3) NA 3 Bolus Preparation (0-4) 1 Resulted in slow prolonged chewing/mashing with complete re-collection 4 Bolus Transport (0-4) 1 Demonstrated delayed initiation of tongue motion 5 Oral Residue (0-4) 1 Was a trace, lining oral structures 6 Swallow Initiation (0-4) 3 Occurred when the bolus head was in the pyriform sinuses 7 Soft Palate Elevation (0-4) 0 Resulted in no bolus between soft palate and the pharyngeal wall 8 Laryngeal Elevation (0-3) 2 Was incomplete, with minimal superior movement of thyroid cartilage with minimal approximation of arytenoids to epiglottic petiole 9 Anterior Hyoid Motion (0-2) 1 Demonstrated partial anterior movement 10 Epiglottic Movement (0-2) 0 Resulted in complete inversion 11 Laryngeal Closure (0-2) 1 Was incomplete with narrow a column of air/contrast in laryngeal vestibule 12 Pharyngeal Stripping Wave (0-2) 0 Was present and complete 13 Pharyngeal Contraction (0-3) NA 14 PES Opening (0-3) 0 Was completely distended and complete duration with no obstruction of flow 15 Tongue Base Retraction (0-4) 2 Allowed a narrow column of contrast or air between the retracted tongue base and the posterior pharyngeal wall 16 Pharyngeal Residue (0-4) 1 Showed a trace within or on pharyngeal structures 17 Esophageal Clearance (0-4) NA Results: COMPONENT Scale SCORE 1 Oral Score (0-18) 5 2 Pharyngeal Score (0-29) 6 3 Esophageal Score (0-4) 0 Functional Oral Intake Scale: COMPONENT Scale SCORE 1 Pre-Study (1-7) 5 Total oral intake of multiple consistencies requiring special preparation 2 Post-Study (1-7) 5 Total oral intake of multiple consistencies requiring special preparation Penetration-Aspiration Scale: COMPONENT Scale SCORE 1 Thin liquid (1-8) 8 Contrast entered the airway, passed below the vocal folds, and no effort was made to eject. 2 [place] thick (1-8) 8 Contrast entered the airway, passed below the vocal folds, and no effort was made to eject. 3 Honey thick (1-8) 1 Contrast did not enter the airway 4 Pudding thick (1-8) 1 Contrast did not enter the airway 5 Cookie (1-8) NA Trialed Compensatory Strategies & Outcome: Maneuvers Successful (+) Unsuccessful (-) Postures Successful (+) Unsuccessful (-) 3 second Preparatory Set? ? Chin Tuck Posture? ?Unsuccessful- resulting in increased quantity of aspiration of mildly thick liquid Cough? ? Posterior Head tilt? Reflexive? Cued? Throat Clear? ? Head Tilt to? Reflexive? Left? Cued? Right? ? Saliva swallow? ? Head Turn/Rotate to? ? Supraglottic Swallow? Left? ? Super-supraglottic Swallow? Right? ? Bolus Modifications Successful (+) Unsuccessful (-) Delivery/Alternating Consistencies ? Follow with Liquid Wash ? Follow with Solid Bolus? Delivery/Via Straw? ? Reduced Volume? ? Reduced Rate of Intake? ? Increased Viscosity? ? Other:?? ? Thank you for allowing us to take part in this patient's care. Please feel free to contact the [facility] Speech Language Pathology Department with any questions/concerns. Time: 11:20-11:45 (25 min MBSS) Coding CPT Codes MOTION FLUOROSCOPY/SWALLOW - [id number] ([id number])
== END ==
PROVIDERS: PCP Nurse Practitioner Family; Visit Provider Nurse Practitioner Family
DX: I69.391 Dysphagia following cerebral infarction (principal); I69.251 Hemiplegia and hemiparesis following other nontraumatic intracranial hemorrhage affecting right dominant side
CPT/HCPCS: 00123; 92526

== ENCOUNTER 2023-10-31 14:51 | Inpatient (IN) | payer MEDICARE, MEDICAID, SELFPAY ==
[2023-10-31] VITALS (29 sets, daily range): BP systolic 130–175; BP diastolic 69–96; PULSE 67–121; RESP 11–24; TEMP 36–36.6; O2SAT 96–99
--- NOTE | 2023-10-31 15:15 | DI.RAD_ITS ---
Exam(s) XR CHEST 1V IN DI DEPT EXAM: XR CHEST 1V IN DI DEPT CLINICAL HISTORY: ams. TECHNIQUE: 2D digital imaging was performed. COMPARISON: CR,XR XR CHEST 1V IN DI DEPT from 06/16/2023 FINDINGS: Single AP portable view. Heart size is upper normal. The mediastinum is not widened. There is focal density in the mid right lung field which is probably small area of infiltrate, possib ly nodular. Other possibly is focal thickening of the minor fissure at this level which results in p seudo nodule. No pleural effusions. There are healed left-sided rib fractures noted. IMPRESSION: Small area of infiltrate in the mid right lung, not previously present. Follow-up to resolution mackenzie mmended. DATA REPOSITORY: RADIATION DOSE DELIVERED:
--- NOTE | 2023-10-31 15:15 | DI.CT_ITS ---
Exam(s) CT HEAD WO EXAM: CT HEAD WO CLINICAL HISTORY: hx stroke, ams. TECHNIQUE: Imaging Protocol: Axial computed tomography images with coronal and sagittal reformatted images were created and reviewed COMPARISON: MR MR BRAIN WO from 05/16/[address] HEAD WO from 06/16/2023 FINDINGS: There are no skull fractures. There is no fluid in the visualized paranasal sinuses. No evidence of intracranial hemorrhage, intra or extra-axial. There is a prominent area of left hemispheric encephalomalacia in the territory of the left middle ce rebral artery. This has significantly increased when compared to 06/16/2023 but is not associated wi th increasing mass effect upon the adjacent sulci nor shift of midline structures and the adjacent la teral ventricle is not compressed. Indeed, there is mild ex vacuo dilatation of the ipsilateral late ral ventricle. The above findings are most probably consistent with interval progression of infarct zone when compared to 06/16/2023. There are no findings in the right hemisphere nor within the posterior fossa. IMPRESSION: Compared to prior CT scan of 06/16/2023 there has been interval enlargement of the infarct zone in th e territory of the left middle cerebral artery. Please also note that the diffusion imaging sequence on the MRI of 05/16/2023 also revealed evidence of infarct in the left cerebellar hemisphere. If clinically indicated follow-up MRI can be performed at this time. RADIATION DOSE DELIVERED: Total DLP DATA REPOSITORY: All CT scans at this facility are submitted to the National Radiology Data Registry (NRDR) Dose Index Registry (DIR) with the [employer] ([employer]). RADIATION OPTIMIZATION: All CT scans at this facility use at least one of these dose optimization te chniques: automated exposure control; mA and/or kV adjustment per patient size (includes targeted exa ms where dose is matched to clinical indication); or iterative reconstruction.
--- NOTE | 2023-10-31 15:15 | DI.RAD_ITS ---
Exam(s) XR PELVIS AP EXAM: XR PELVIS AP CLINICAL HISTORY: wellness check, possible fall. TECHNIQUE: 2D digital imaging was performed. COMPARISON: No exams were available for comparison FINDINGS: Single AP view of the pelvis No evidence of pelvic nor hip fracture. No degenerative changes seen in the hips. Single surgical c lip is noted in the right iliac fossa. IMPRESSION: No acute osseous findings in the pelvis. DATA REPOSITORY: RADIATION DOSE DELIVERED:
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
[2023-10-31] MEDS: Normal Saline 1,000 ML 1000 ML IV (15:30)
[2023-10-31 15:40] LABS: BE (Venous) 3 mmol/L (-2-3); HCO3 (Venous) 28 mmol/L (23-28); O2 Sat (Venous) 55 %; TCO2 (Venous) 26 mmol/L (24-29); pCO2 (Venous) 47 mmHg (41-51); pH (Venous) 7.39 (7.31-7.41); pO2 (Venous) 31 mmHg
[2023-10-31 15:43] LABS: Abs Immature Grans 0.09 10^3/uL (0.0-0.06); Absolute Lymphocyte Count 1.74 10^3/uL (1.2-3.4); Absolute Monocyte Count 0.72 10^3/uL (0.1-0.8); Basophils % 0.3; HCT 35.7 % (40.0-50.0); HGB 12.1 g/dL (13.5-17.5); Immature Grans % 0.6; Lymphocytes % 11.2; MCH 28.8 pg (27.0-33.0); MCHC 33.9 % (32.0-36.0); MCV 85 fL (80-95); MPV 9.4 fL (8.0-11.0); Monocytes % 4.6; Neutrophils % 83.3; Platelet Count 404 10^3/uL (130-400); RDW 13.6 % (11.8-14.1); RDW-SD 42.3 fL; WBC 15.57 10^3/uL (4.4-10.8)
[2023-10-31 15:44] LABS: Absolute Basophil Count 0.05 10^3/uL (0.0-0.2); Absolute Neutrophil Count 12.97 10^3/uL (1.2-6.7)
[2023-10-31 15:59] LABS: INR 1.3 (0.9-1.1); PTT Activated 27.2 sec (23.6-32.8); Prothrombin Time 12.4 sec (9.1-11.1)
--- NOTE | 2023-10-31 16:00 | DI.RAD_ITS ---
Exam(s) XR KNEE RT 3V AP,LAT,KVNG EXAM: XR KNEE RT 3V AP,LAT,KVNG CLINICAL HISTORY: knee redness, found on ground. TECHNIQUE: 2D digital imaging was performed. COMPARISON: No exams were available for comparison FINDINGS: 3 views No evidence of fracture. Small joint effusion. Mild degenerative changes. No osseous lesions. No radiopaque foreign body. IMPRESSION: Mild degenerative changes. Small joint effusion. DATA REPOSITORY: RADIATION DOSE DELIVERED:
--- NOTE | 2023-10-31 16:00 | DI.RAD_ITS ---
Exam(s) XR WRIST RT COMPLETE EXAM: XR WRIST RT COMPLETE CLINICAL HISTORY: wrist pain, found on ground. TECHNIQUE: 2D digital imaging was performed. COMPARISON: No exams were available for comparison FINDINGS: Four views. No evidence of acute fracture or carpal dislocation. No significant ulnar variance. Scaphoid and sc apholunate distance normal. IMPRESSION: No significant osseous findings in the wrist. DATA REPOSITORY: RADIATION DOSE DELIVERED:
[2023-10-31 16:11] LABS: ALT 23 U/L (16-63); AST 25 U/L (15-37); Albumin 2.9 g/dL (3.4-5.0); Alkaline Phosphatase 187 U/L (46-116); Anion Gap 8.2 mmol/L (3-11); BUN 52 mg/dL (7-18); Bilirubin, Total 0.5 mg/dL (0.2-1.0); CO2 29.8 mmol/L (21.0-32.0); CREATININE 1.4 mg/dL (0.70-1.30); Calcium 9.3 mg/dL (8.5-10.1); Chloride 103 mmol/L (98-107); Creatine Kinase 145 U/L (39-308); Estimated GFR 53.74 (mL/min/1.73m2); Glucose 348 mg/dL (74-106); Potassium 4.1 mmol/L (3.5-5.1); Sodium 141 mmol/L (136-145); TSH (W/Ref FT4) 1.09 uIU/mL (0.36-3.74)
[2023-10-31 16:30] LABS: COVID-19 PCR Negative (Negative); Influenza A PCR Negative (Negative); Influenza B PCR Negative (Negative); RSV PCR Negative (Negative)
[2023-10-31 16:32] LABS: Source Nasopharynx
--- NOTE | 2023-10-31 16:39 | NUR.NOTE ---
Nursing Note: This Rn filed a report with APS. 10/31/23 0388 Intake number [id number]
[2023-10-31] MEDS: AZITHROMYCIN 500 MG in Normal Saline 250 ML 250 MG IVPB (19:25)
[2023-10-31 19:26] LABS: Bilirubin Small (Negative); Blood Large (Negative); Clarity Clear (Clear); Glucose 100 mg/dL (Negative); Ketones 40 mg/dL (Negative); Leukocyte Esterase Negative (Negative); Nitrite Negative (Negative); Specific Gravity >= 1.030 (1.005-1.025); Urobilinogen 0.2 mg/dL (Up to 0.2); pH 5.5 (5-8)
[2023-10-31] MEDS: cefTRIAXone 1 GM/50 ML BAG IVPB (19:32)
[2023-10-31 19:40] LABS: Bacteria Moderate HPF (Negative); C & S Indicated? Yes; Casts 10-20 Hyaline LPF (Negative); Crystals Negative HPF (Negative); Epithelial Cells Rare HPF (Negative); Mucus Trace (Negative); RBC 20-50 HPF (0-2)
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
[2023-10-31] MEDS: Normal Saline 1,000 ML 125 ML IV (21:57)
[2023-10-31] MEDS: Atorvastatin 40 MG TAB 80 MG PO (22:32)
[2023-10-31] MEDS: Enoxaparin 40 MG/0.4 ML SYR SC (22:33)
[2023-10-31 22:55] LABS: Lactate 3.3 mmol/L (0.6-1.4)
[2023-11-01] VITALS (14 sets, daily range): BP systolic 113–172; BP diastolic 63–78; PULSE 64–107; RESP 17–18; TEMP 36.3–36.9; O2SAT 96–98
[2023-11-01 02:16] LABS: *AMPHETAMINES SCREEN URINE Negative (Negative); *BARBITURATES SCREEN URINE Negative (Negative); *BENZODIAZEPINES SCREEN URINE Negative (Negative); Cannabinoids THC Negative (Negative); Cocaine Screen,Urine Negative (Negative); METHADONE URINE SCREEN Positive (Negative); OPIATES URINE SCREEN Negative (Negative)
[2023-11-01 02:17] LABS: Tricyclic Antidepressants Negative (Negative)
[2023-11-01 05:04] LABS: MRSA PCR Positive (Negative)
[2023-11-01] MEDS: Normal Saline 1,000 ML 125 ML IV ×2 (05:28→15:18)
[2023-11-01] MEDS: Levothyroxine 25 MCG TAB PO (06:00)
[2023-11-01] MEDS: Levothyroxine 112 MCG TAB PO (06:00)
[2023-11-01] MEDS: Aspirin E.C. 81 MG TABEC PO (07:40)
[2023-11-01] MEDS: Docusate Sodium 100 MG CAP 200 MG PO (07:40)
[2023-11-01] MEDS: Carvedilol 12.5 MG TAB PO (07:40)
[2023-11-01] MEDS: amLODIPine 5 MG TAB PO (07:40)
[2023-11-01] MEDS: Acetaminophen 325 MG TAB PO ×2 (07:40→16:25)
[2023-11-01] MEDS: Cholecalciferol (Vitamin D3) 1,000 UNIT TAB 1000 UNITS PO (07:41)
[2023-11-01] MEDS: Magnesium Oxide 400 MG TAB PO (07:41)
--- NOTE | 2023-11-01 08:00 | DI.US_ITS ---
Exam(s) US LOWER EXTREMITY VENOUS RT EXAM: US LOWER EXTREMITY VENOUS RT CLINICAL HISTORY: Nonpitting edema right lower extremity. TECHNIQUE: Grayscale, color, and doppler imaging of the deep venous system of the right lower extrem ity was performed. COMPARISON: US US ECHOCARDIOGRAM from 05/15/2023 FINDINGS: There is no evidence of intraluminal thrombus and there is normal compression and augmentation demons trated within the common femoral vein, femoral vein, and popliteal vein. In the ipsilateral calf the interrogated veins also exhibit normal compression/ augmentation properti es. The ipsilateral saphenofemoral junction is patent. IMPRESSION: 1. No evidence of DVT in the right lower extremity. DATA REPOSITORY:
[2023-11-01] MEDS: Insulin Aspart 300 UNITS/3 ML PEN SC ×2 (08:32→12:14)
[2023-11-01] MEDS: VANCOMYCIN/WATER (PEG) 1.5 GM/300 ML BAG IVPB (08:33)
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
[2023-11-01] MEDS: Methadone Liquid 10 MG/ML 50 MG PO (10:26)
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
--- NOTE | 2023-11-01 11:00 | RT.EKG_ITS ---
APPROVED REPORT Exam: Resting ECG Reason for Exam: assess QT- on methadone therapy Patient Location: I HR:72 bpm ECG Measurements Heart Rate 72 AXIS MI 159 P 80 QRSd 105 QRS 32 QT 504 T 62 QTc 552 Conclusion Sinus rhythm...normal P axis, V-rate 50- 99 Prolonged QT interval...QTc >500mS
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
[2023-11-01 14:48] LABS: HCT 29.4 % (40.0-50.0); HGB 10.1 g/dL (13.5-17.5); MCH 29.5 pg (27.0-33.0); MCHC 34.4 % (32.0-36.0); MCV 86 fL (80-95); MPV 9.8 fL (8.0-11.0); Platelet Count 216 10^3/uL (130-400); RBC 3.42 10^6/uL (4.36-5.78); RDW-SD 43.8 fL; WBC 8.49 10^3/uL (4.4-10.8)
[2023-11-01 14:51] LABS: Lactate 2.4 mmol/L (0.6-1.4)
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
[2023-11-01 15:25] LABS: Procalcitonin < 0.1 ng/mL
[2023-11-01 15:26] LABS: ALT 29 U/L (16-63); AST 41 U/L (15-37); Albumin 2.2 g/dL (3.4-5.0); Alkaline Phosphatase 142 U/L (46-116); Anion Gap 8.2 mmol/L (3-11); BUN 42 mg/dL (7-18); Bilirubin, Total 0.3 mg/dL (0.2-1.0); C-Reactive Protein 0.58 mg/dL (0.0-0.3); CO2 24.8 mmol/L (21.0-32.0); Calcium 8.2 mg/dL (8.5-10.1); Chloride 109 mmol/L (98-107); Estimated GFR 80.47 (mL/min/1.73m2); Glucose 116 mg/dL (74-106); Magnesium 2.1 mg/dL (1.8-2.4); Sodium 142 mmol/L (136-145); Total Protein 6.2 g/dL (6.4-8.2)
[2023-11-01] MEDS: Normal Saline Flush 10 ML SYR IVP (17:02)
[2023-11-01] MEDS: POTASSIUM CHLORIDE 20 MEQ/100 ML BAG 50 MEQ IVPB ×3 (17:03→21:34)
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
[2023-11-01 18:49] LABS: Bilirubin Negative (Negative); Blood Large (Negative); Clarity Clear (Clear); Glucose Negative (Negative); Ketones Trace mg/dL (Negative); Leukocyte Esterase Negative (Negative); Nitrite Negative (Negative); Specific Gravity 1.025 (1.005-1.025); Urobilinogen 0.2 mg/dL (Up to 0.2); pH 5.5 (5-8)
[2023-11-01 19:01] LABS: Bacteria Negative HPF (Negative); Epithelial Cells Rare HPF (Negative); Other Cells Rare Yeast (Negative); WBC 0-2 HPF (0-5)
[2023-11-01 19:02] LABS: C & S Indicated? No; Casts 0-2 Hyaline LPF (Negative); Crystals Negative HPF (Negative); Mucus Heavy (Negative)
[2023-11-01] MEDS: cefTRIAXone 1 GM/50 ML BAG IVPB (20:22)
[2023-11-01] MEDS: Enoxaparin 40 MG/0.4 ML SYR SC (21:32)
[2023-11-01] MEDS: Atorvastatin 40 MG TAB 80 MG PO (21:32)
[2023-11-01] MEDS: Insulin Glargine 300 UNITS/3 ML PEN SC (21:32)
[2023-11-01] MEDS: POTASSIUM CHLORIDE/0.9% NACL 1,000 ML 125 MEQ IV (21:33)
[2023-11-01] MEDS: DOXYCYCLINE 100 MG in Normal Saline 100 ML IVPB (22:00)
[2023-11-02] VITALS (29 sets, daily range): BP systolic 146–173; BP diastolic 67–88; PULSE 62–89; RESP 16–19; TEMP 35.9–36.7; O2SAT 95–98
[2023-11-02] MEDS: VANCOMYCIN/WATER (PEG) 1.25 GM/250 ML BAG IVPB ×2 (01:33→21:18)
[2023-11-02 06:45] LABS: Abs Immature Grans 0.02 10^3/uL (0.0-0.06); Absolute Basophil Count 0.06 10^3/uL (0.0-0.2); Absolute Eosinophil Count 0.15 10^3/uL (0.0-0.7); Absolute Lymphocyte Count 1.68 10^3/uL (1.2-3.4); Absolute Neutrophil Count 2.53 10^3/uL (1.2-6.7); Basophils % 1.2; HCT 32.3 % (40.0-50.0); HGB 10.7 g/dL (13.5-17.5); Immature Grans % 0.4; MCH 28.8 pg (27.0-33.0); MCHC 33.1 % (32.0-36.0); MCV 87 fL (80-95); MPV 9.6 fL (8.0-11.0); Monocytes % 10.1; Neutrophils % 51.3; Platelet Count 201 10^3/uL (130-400); RBC 3.72 10^6/uL (4.36-5.78); RDW-SD 44.7 fL; WBC 4.94 10^3/uL (4.4-10.8)
[2023-11-02 07:02] LABS: Anion Gap 5.9 mmol/L (3-11); BUN 27 mg/dL (7-18); CO2 27.1 mmol/L (21.0-32.0); CREATININE 0.9 mg/dL (0.70-1.30); Calcium 8.2 mg/dL (8.5-10.1); Chloride 110 mmol/L (98-107); Estimated GFR 91.31 (mL/min/1.73m2); Glucose 158 mg/dL (74-106); Magnesium 1.8 mg/dL (1.8-2.4); Potassium 3.7 mmol/L (3.5-5.1); Sodium 143 mmol/L (136-145)
[2023-11-02] MEDS: Methadone Liquid 10 MG/ML 50 MG PO ×2 (08:56→19:27)
[2023-11-02] MEDS: Insulin Aspart 300 UNITS/3 ML PEN SC ×4 (08:58→17:55)
[2023-11-02] MEDS: Magnesium Oxide 400 MG TAB PO (09:18)
[2023-11-02] MEDS: Aspirin E.C. 81 MG TABEC PO (09:18)
[2023-11-02] MEDS: Carvedilol 12.5 MG TAB PO (09:19)
[2023-11-02] MEDS: Cholecalciferol (Vitamin D3) 1,000 UNIT TAB 1000 UNITS PO (09:19)
[2023-11-02] MEDS: Gabapentin 800 MG TAB PO ×2 (09:19→20:16)
[2023-11-02] MEDS: amLODIPine 5 MG TAB PO (09:19)
[2023-11-02] MEDS: Ticagrelor 90 MG TAB PO ×2 (09:19→20:17)
[2023-11-02] MEDS: Docusate Sodium 100 MG CAP 200 MG PO (09:19)
[2023-11-02] MEDS: DOXYCYCLINE 100 MG in Normal Saline 100 ML IVPB ×2 (11:04→22:56)
[2023-11-02] MEDS: POTASSIUM CHLORIDE/0.9% NACL 1,000 ML 125 MEQ IV (11:04)
[2023-11-02] MEDS: OLANZapine 10 MG VIAL 5 MG IM (11:59)
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
[2023-11-02] MEDS: Polyethylene Glycol 3350 17 GM PACKET PO (13:19)
--- NOTE | 2023-11-02 14:49 | TELEP.MEDR_ITS ---
Date of service: 11/02/23 Time of Service: 14:49 Telepharmacy Home Med Rec Allergies Allergies: codeine Adverse Reaction (Verified 06/16/23 18:04) itching and bloutchy naloxone HCl [From Narcan] Adverse Reaction (Verified 06/16/23 18:04) IT INTERACTS WITH MY METHADONE pentazocine lactate [From Talwin] Adverse Reaction (Verified 06/16/23 18:04) makes me deathly ill Narcotic Adverse Reaction (Uncoded 06/16/23 18:04) H/O drug abuse narcotic antagonists Adverse Reaction (Uncoded 06/16/23 18:04) withdrawls Interview Person Interviewed: None, patient with CVA and Werneke's. Son is caregiver and is unable to participate in medrec interview at this time. Quality Quality of Interview/Accuracy of Medication List: Poor Additional Notes Additional Notes: None Recommended Changes Recommended Changes(reason for recommendation): None Attestation: The home medication list is not updated due to inability of the pt to par ticipate in the med reconciliation interview, and no family available that can contribute. Please contact the TelePharmacy Medication Reconciliation Pharmacist at for any questions.
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
[2023-11-02] MEDS: Acetaminophen 325 MG TAB PO ×2 (18:19→21:19)
[2023-11-02] MEDS: Normal Saline Flush 10 ML SYR IVP (20:15)
[2023-11-02] MEDS: cefTRIAXone 1 GM/50 ML BAG IVPB (20:16)
[2023-11-02] MEDS: Sennosides/Docusate Sodium TAB 1 TAB PO (20:17)
[2023-11-02] MEDS: Enoxaparin 40 MG/0.4 ML SYR SC (21:19)
[2023-11-02] MEDS: Atorvastatin 40 MG TAB 80 MG PO (21:19)
[2023-11-02] MEDS: ARIPiprazole 5 MG TAB PO (21:20)
[2023-11-02 22:22] LABS: Legionella Ag Detection Urine Negative (Negative)
[2023-11-02] MEDS: Insulin Glargine 300 UNITS/3 ML PEN 8 UNITS SC (22:59)
[2023-11-03] VITALS (21 sets, daily range): BP systolic 144–164; BP diastolic 70–75; PULSE 67–121; RESP 16–18; TEMP 35.7–36.9; O2SAT 94–97
[2023-11-03] MEDS: Normal Saline Flush 10 ML SYR IVP ×2 (00:38→10:01)
[2023-11-03] MEDS: Acetaminophen 325 MG TAB PO ×2 (06:07→20:54)
[2023-11-03] MEDS: Levothyroxine 112 MCG TAB PO (06:08)
[2023-11-03] MEDS: Levothyroxine 25 MCG TAB PO (06:08)
[2023-11-03] MEDS: Docusate Sodium 100 MG CAP 200 MG PO (08:04)
[2023-11-03] MEDS: Cholecalciferol (Vitamin D3) 1,000 UNIT TAB 1000 UNITS PO (08:04)
[2023-11-03] MEDS: Methadone Liquid 10 MG/ML 50 MG PO ×2 (08:05→19:52)
[2023-11-03] MEDS: Carvedilol 12.5 MG TAB PO (08:06)
[2023-11-03] MEDS: Polyethylene Glycol 3350 17 GM PACKET PO (08:06)
[2023-11-03] MEDS: Gabapentin 800 MG TAB PO ×2 (08:06→20:54)
[2023-11-03] MEDS: Insulin Aspart 300 UNITS/3 ML PEN SC ×5 (08:06→17:19)
[2023-11-03] MEDS: Magnesium Oxide 400 MG TAB PO (08:06)
[2023-11-03] MEDS: Ticagrelor 90 MG TAB PO ×2 (08:06→20:55)
[2023-11-03] MEDS: amLODIPine 5 MG TAB PO (08:06)
[2023-11-03] MEDS: Aspirin E.C. 81 MG TABEC PO (08:06)
[2023-11-03 09:13] LABS: ALT 60 U/L (16-63); AST 66 U/L (15-37); Albumin 2.2 g/dL (3.4-5.0); Alkaline Phosphatase 145 U/L (46-116); Anion Gap 6.5 mmol/L (3-11); BUN 20 mg/dL (7-18); Bilirubin, Total 0.5 mg/dL (0.2-1.0); CO2 27.5 mmol/L (21.0-32.0); Chloride 107 mmol/L (98-107); Estimated GFR 80.47 (mL/min/1.73m2); Glucose 318 mg/dL (74-106); Potassium 3.6 mmol/L (3.5-5.1); Sodium 141 mmol/L (136-145); Total Protein 5.9 g/dL (6.4-8.2); Vancomycin, Trough 18.1 ug/mL (10.0-20.0)
[2023-11-03 09:17] LABS: Abs Immature Grans 0.04 10^3/uL (0.0-0.06); Absolute Basophil Count 0.07 10^3/uL (0.0-0.2); Absolute Eosinophil Count 0.32 10^3/uL (0.0-0.7); Absolute Lymphocyte Count 1.28 10^3/uL (1.2-3.4); Absolute Neutrophil Count 7.89 10^3/uL (1.2-6.7); Basophils % 0.7; Eosinophils % 3.2; HCT 30.9 % (40.0-50.0); HGB 10.3 g/dL (13.5-17.5); Immature Grans % 0.4; Lymphocytes % 12.7; MCH 28.7 pg (27.0-33.0); MCHC 33.3 % (32.0-36.0); MCV 86 fL (80-95); MPV 10.3 fL (8.0-11.0); Platelet Count 225 10^3/uL (130-400); RBC 3.59 10^6/uL (4.36-5.78); RDW 13.7 % (11.8-14.1); RDW-SD 43.3 fL
[2023-11-03 09:38] LABS: Procalcitonin < 0.1 ng/mL
[2023-11-03] MEDS: DOXYCYCLINE 100 MG in Normal Saline 100 ML IVPB (09:47)
[2023-11-03] MEDS: Milk of Magnesia 30 ML CUP PO (09:47)
[2023-11-03] MEDS: clonazePAM 0.5 MG TAB PO ×2 (11:51→19:52)
--- NOTE | 2023-11-03 12:46 | NUR.NOTE ---
Nursing Note: Attempted to call [facility] to get medications reconciled. Message stated not to leave PHI on VM and to call back during normal business hours. Daughter is here but unable to verify medications.
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
[2023-11-03 14:06] LABS: Hemoglobin A1C 7.3 % (<5.7)
[2023-11-03] MEDS: VANCOMYCIN/WATER (PEG) 1.5 GM/300 ML BAG IVPB (16:00)
[2023-11-03] MEDS: LORazepam 2 MG/ML VIAL 1 MG IM (18:02)
--- NOTE | 2023-11-03 18:09 | NUR.NOTE ---
Nursing Note: Pt was doing well all day, then got increasingly agitated and pulled out his IV. Unable to give him a PO ativan, gave IM per MD orders. MD aware that he no longer has IV access.
[2023-11-03] MEDS: Sennosides/Docusate Sodium TAB 1 TAB PO (20:53)
[2023-11-03] MEDS: ARIPiprazole 5 MG TAB PO (20:54)
[2023-11-03] MEDS: Atorvastatin 40 MG TAB 80 MG PO (20:54)
[2023-11-03] MEDS: Enoxaparin 40 MG/0.4 ML SYR SC (21:33)
[2023-11-03] MEDS: cefTRIAXone 1 GM/50 ML BAG IVPB (21:34)
--- NOTE | 2023-11-04 | DI.RAD_ITS ---
Exam(s) RF MODIFIED SPEECH BA SWALLOW TECHNIQUE: Modified barium swallow was performed in conjunction with speech pathology. CONTRAST MATERIAL: Multiple consistencies of oral barium contrast were administered. COMPARISON: No exams were available for comparison FINDINGS: Note that this is not a dedicated esophagram, distal esophagus not evaluated. Fluoroscopy time 49 seconds Speech pathology report to follow. RADIATION DOSE DELIVERED: wes Velasquez=5.15 mGy
[2023-11-04] MEDS: Insulin Glargine 300 UNITS/3 ML PEN 12 UNITS SC ×2 (00:40→21:35)
[2023-11-04] MEDS: DOXYCYCLINE 100 MG in Normal Saline 100 ML IVPB ×2 (00:57→11:55)
[2023-11-04] MEDS: Normal Saline Flush 10 ML SYR IVP ×3 (02:20→21:13)
[2023-11-04] MEDS: Levothyroxine 25 MCG TAB PO (06:29)
[2023-11-04] MEDS: Levothyroxine 112 MCG TAB PO (06:29)
[2023-11-04 07:22] LABS: Anion Gap 5.6 mmol/L (3-11); BUN 21 mg/dL (7-18); CO2 27.4 mmol/L (21.0-32.0); CREATININE 0.9 mg/dL (0.70-1.30); Calcium 8.6 mg/dL (8.5-10.1); Calculated LDL 45 mg/dL (<100); Chloride 106 mmol/L (98-107); Cholesterol 116 mg/dL (<200); Estimated GFR 91.31 (mL/min/1.73m2); Glucose 181 mg/dL (74-106); HDL Cholesterol 27 mg/dL (40-60); Potassium 3.7 mmol/L (3.5-5.1); Sodium 139 mmol/L (136-145); Triglyceride 223 mg/dL (<150)
[2023-11-04 07:35] VITALS: BP 163/71; PULSE 76; RESP 18; TEMP 36; O2SAT 96
[2023-11-04] MEDS: Aspirin E.C. 81 MG TABEC PO (08:40)
[2023-11-04] MEDS: clonazePAM 0.5 MG TAB PO ×2 (08:40→21:15)
[2023-11-04] MEDS: Carvedilol 12.5 MG TAB PO (08:40)
[2023-11-04] MEDS: amLODIPine 5 MG TAB PO (08:40)
[2023-11-04] MEDS: Ticagrelor 90 MG TAB PO ×2 (08:40→21:15)
[2023-11-04] MEDS: Cholecalciferol (Vitamin D3) 1,000 UNIT TAB 1000 UNITS PO (08:41)
[2023-11-04] MEDS: Docusate Sodium 100 MG CAP 200 MG PO (08:41)
[2023-11-04] MEDS: Magnesium Oxide 400 MG TAB PO (08:41)
[2023-11-04] MEDS: Gabapentin 800 MG TAB PO ×2 (08:41→21:15)
[2023-11-04] MEDS: Polyethylene Glycol 3350 17 GM PACKET PO (08:44)
[2023-11-04] MEDS: Methadone Liquid 10 MG/ML 50 MG PO (08:45)
[2023-11-04] MEDS: Insulin Aspart 300 UNITS/3 ML PEN SC ×5 (08:45→17:25)
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
[2023-11-04 11:10] VITALS: BP 127/62; PULSE 78; RESP 18; TEMP 36.3; O2SAT 95
[2023-11-04] MEDS: Acetaminophen 325 MG TAB PO (11:53)
[2023-11-04] MEDS: Barium Sulfate 81% w/w for Oral Suspension 148 GM BTL PO (11:59)
[2023-11-04] MEDS: Barium Sulfate 40% W/V 240 ML BTL PO (12:01)
[2023-11-04] MEDS: Barium Sulfate 40% W/V 1500 CPS 250 ML BTL PO (12:02)
[2023-11-04] MEDS: Barium Sulfate Oral Paste 40% W/V 230 ML TUBE PO (12:03)
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
[2023-11-04] MEDS: HYDROcodone 10/Acetaminophen 325 TAB PO (14:16)
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
[2023-11-04 15:28] VITALS: BP 110/57; PULSE 80; RESP 18; TEMP 36.4; O2SAT 98
[2023-11-04] MEDS: VANCOMYCIN/WATER (PEG) 1.5 GM/300 ML BAG IVPB (16:36)
[2023-11-04 19:33] VITALS: BP 100/57; PULSE 72; RESP 18; TEMP 35.7; O2SAT 97
[2023-11-04] MEDS: cefTRIAXone 1 GM/50 ML BAG IVPB (21:07)
[2023-11-04] MEDS: Sennosides/Docusate Sodium TAB 1 TAB PO (21:15)
[2023-11-04] MEDS: Methadone Liquid 10 MG/ML 60 MG PO (21:15)
[2023-11-04] MEDS: ARIPiprazole 5 MG TAB PO (21:35)
[2023-11-04] MEDS: Enoxaparin 40 MG/0.4 ML SYR SC (21:35)
[2023-11-04] MEDS: Atorvastatin 40 MG TAB 80 MG PO (21:35)
[2023-11-05] VITALS (17 sets, daily range): BP systolic 115–160; BP diastolic 48–95; PULSE 67–98; RESP 11–18; TEMP 35.8–37.1; O2SAT 94–97
[2023-11-05] MEDS: DOXYCYCLINE 100 MG in Normal Saline 100 ML IVPB (00:05)
[2023-11-05] MEDS: Normal Saline Flush 10 ML SYR IVP (00:06)
[2023-11-05] MEDS: Levothyroxine 112 MCG TAB PO (05:52)
[2023-11-05] MEDS: Levothyroxine 25 MCG TAB PO (05:52)
[2023-11-05] MEDS: Cholecalciferol (Vitamin D3) 1,000 UNIT TAB 1000 UNITS PO (08:08)
[2023-11-05] MEDS: amLODIPine 5 MG TAB PO (08:08)
[2023-11-05] MEDS: Carvedilol 12.5 MG TAB PO (08:08)
[2023-11-05] MEDS: Gabapentin 800 MG TAB PO ×2 (08:08→19:54)
[2023-11-05] MEDS: clonazePAM 0.5 MG TAB PO ×2 (08:08→19:54)
[2023-11-05] MEDS: Magnesium Oxide 400 MG TAB PO (08:08)
[2023-11-05] MEDS: Docusate Sodium 100 MG CAP 200 MG PO (08:08)
[2023-11-05] MEDS: Ticagrelor 90 MG TAB PO ×2 (08:08→19:58)
[2023-11-05] MEDS: Aspirin E.C. 81 MG TABEC PO (08:08)
[2023-11-05] MEDS: Methadone Liquid 10 MG/ML 60 MG PO ×2 (08:09→20:21)
[2023-11-05] MEDS: Insulin Aspart 300 UNITS/3 ML PEN SC ×4 (08:10→11:55)
[2023-11-05] MEDS: Polyethylene Glycol 3350 17 GM PACKET PO (08:15)
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
--- NOTE | 2023-11-05 10:31 | PCPN_ITS ---
Date of service: 11/05/23 Time of Service: 13:15 Assessment and Plan Assessment and plan (1) Palliative care encounter: Status: Acute Assessment and plan: Palliative care consult was requested for several reasons during this hospital admission: #Long-term palliative care patient: I have met with patient and his family several times since May of this year. I met Alejandra once previous during his initial hospitalization in May. We have been working on goals of care, advance care planning, symptom management and supportive care. I participated in 2 home visits this fall. At both of my visits, patient seem to be getting good and thoughtful care from his son Kavin. He was well-dressed and Clean. The area was set up in a very safe way. At no time during my visits did I observe any signs of intoxication or have any concerns about Kavin's behavior or manner. Unfortunately, what happened last week was most serious. I do note that Kavin's binge seem to come at a time when he had lost significant support and services from [facility] health team and had not yet set up additional supports through patient's [facility]. Caring for anyone with Mr. Caballero's disabilities is an overwhelming task, and probably impossible to do alone. I believe that Kavin still has ability to make significant contributions to the care of his father. However, he can only do this when he is impaired. Mr. Caballero, his family, and his care team work will continue to work to set up a safe discharge plan for him. The palliative care team will continue to follow Mr. Caballero and his treatment team and his family. #Capacity to make healthcare decisions: I met with patient today with DIRECTOR OF PROMOTIONS Mayte Alvarado present. Please see her note from today. Patient very difficult to understand. Unable to consistency use communication board. As per standard capacity evaluation, I asked him questions about his diagnosis, his treatment options. His answers appear to be tangential and off subject. I am not sure if he did not understand the question, or if he was unable to communicate his answer either verbally or symbolic early to me. I then asked him about discharge plans. He was very clear that he did not want to go to any [place]; he has been strenuously against going to a [place] at any time. He said he wanted to go home. I asked him to tell me if he could be home alone by himself. It was impossible for me to understand his answer, I asked him who he would want to be at home with. His verbal answer did not seem to include any of his family members. I made a pointing board with the names of his family members. He declined to use a pointing board and got somewhat frustrated. Today's discussion was complicated by his glasses not working and he seemed to have a very difficult time seeing the communication boards. I will say that this is the most communicative I have seen him. He was able to continue to talk and attempt to communicate for much longer time than in the past without getting frustrated and ending the conversation. In conclusion, due to his expressive aphasia, as well as his inability to use communication boards/sheets, it is unclear to me whether he understands his condition, his limitations, or what sort of assistance he needs to live at home. I suspect that he does not have full capacity to make medical decisions. Additionally, I reviewed this case with artists' booking representative from [facility] by phone today. Although a report has been made to adult protective services regarding concern over missed treatment by his son Kavin, Kelsey from [facility] explains that if the patient designated EN as healthcare agent, he remains the healthcare agent until the charges been substantiated or the patient changes his mind. [facility] staff is available to discuss this further as needed. I, along with other members of the treatment team, will continue to evaluate his capacity to understand his medical condition, functional limitations, need for pest controller assistant, choices as far as discharge planning. #Advance care planning: Initial hospitalist admission note noted that he was a full code and that probably needed to be addressed . I have discussed goals of care and CODE STATUS with both Mr. Caballero and his children and each time I have met with him. Both he and his son Susie are adamant that he remain full code and be intubated should this be indicated. He wants to avail himself of any treatment recommended. I did not review advance care planning with him today. Several members of medical staff and his daughter have questioned his choice of healthcare agent (i.e. Kavin), with his uncle Walt being alternate HCA. I personally reviewed this with the patient with his son out of the room at home visit this fall. In light of last week's events, I plan to revisit healthcare agent with Mr. Caballero once he has recovered from current acute illness. #Discharge planning: Family meeting scheduled for November 07 at 2 PM. I hope to attend. 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 Caballero is a 73-year-old gentleman from [facility] who has been followed by Palliative Care Team since spring 2022. 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 Mr. Caballero had a significant CVA in late April 2023, resulting in aphasia and right hemiplegia. Stormy and difficult postacute hospitalization course including admission to subacute rehab, episode of dehydration requiring ER visits, possible sepsis, worsening dysphagia with transfer to a different inpatient facility in [place] to consider possible feeding tube placement and then, finally arrived back home June [address] with [facility] and his son moving in with him to provide 24/7 care. Conversation with daughter Alejandra by phone today prior to seeing patient in the hospital. She said she would be in the hospital when I got there but she had ready coming gone (had a child with her). She tells me that brother Kavin has a history of binge drinking. He also can get aggressive and angry when he is drinking. She is not sure why he was on a binge this week but that seems to be what happened. I was not able to talk with her after the phone call. Dysphagia secondary to CVA: After stroke, was actually transferred to another hospital to get a feeding tube but then dysphagia improved enough. Once he returned home, he was able to have a rapidly progressed diet under supervision of home health speech therapist. Sounds like now with sepsis and pneumonia, speech is worse again. Hopefully, it will rapidly improve once he is recovered. He was discharged from home health speech therapy services about a month ago. He is being followed again byDIANA Acosta while hospitalized. Sounds like he has had some increase in his dysphagia with his recent illness. She is also helping with some additional communication strategies. Mobility: He has dense right upper and right lower extremity paralysis . At my August home visit, Susie reported that and is able to stand and pivot on his left leg now to help with transfers out of bed and into a wheelchair. Patient still extremely frustrated by no movement at all in his right upper extremity. At mild last visit he had spending 2 to 5 hours a day in his wheelchair. At that time there were no plans to get him motorized wheelchair. Daughter Naomy told me today that PT and OT services are finished about a month ago. Aphasia: Since his stroke in May, DIRECTOR OF PROMOTIONS and family had noted that he was slowly regaining more speech. Although he was given communication boards, he never seem to use them. Susie seems to understand what he was saying the best. Patient also would get easily frustrated when trying to express himself, compounding the difficulty of understanding him. He was working with home health speech therapist up until about a month ago as per edda Roberts Chronic foot infections: Healed up and no recurrence. Opiate use disorder, long-term methadone use: During my home visit end of August, son Susie reported that he was receiving methadone liquid 90 mg twice quincy ly. He has always received his methadone from the [facility]. He has been going for decades. He is at the point where he needs to go monthly. Sounds like Susie had been going to pickler helper the medication monthly since his stroke in May. Sounds like the dosing has been all over the place since his stroke. He actually went without any methadone for part of June while admitted to hospital in [place]. Diabetes: Diabetes had been in much better control since stroke, as Susie was managing his insulin (and providing him with a healthier diet). In fact he was eating better and went down on insulin dose because of hypoglycemic episodes. Care Team: Primary Care physician: Galen ROCHE treatment: [facility] Neurology: Dr. Rodriguez (no follow-up scheduled Podiatry (currently not need to see podiatry, see discussion above) Social HX: lives in a mobile home in [place], [place]. He has 2 children. His son Susie now living in patient's house with son Jun (other children come by and stay several days a week). Patient's daughter Alejandra lives nearby with her and 4 children. Patient enjoys growing house plants, watching TV, reading, hanging out with grandchildren. Susie is going to be his primary caregiver going forward. Not currently working as patient needs 24/7 help. They have a hospital bed and a Lyndsey lift. They have a van with a wheelchair lift. There is a ramp but a better ramp is hopefully going to be installed soon. Current services: -All home health services ended several weeks ago. -Susie completed application successfully for [facility] care. This was granted within the last month. advertising sales manager from [facility] has started working with him to hire respite caregivers, etc. Not too much information on this available to me today. Case management confirmed that he is now enrolled in [facility]. Goals: In the past patient's goals were being able to go outside, going for rides and visiting family. In August, he was looking forward to [employer] and putting together their traditional family [employer] stockings Function: Ambulation: Nonambulatory. Apparently no longer needing Lyndsey lift; in August he was able to transfer from bed to chair with weight on left leg, but only with spotting and one-person assistance. ADLs: Can feed himself. Can indicate when he needs to urinate (uses a urinal on his own). Sometimes now he is able alert caregiver when he needs to have a bowel movement. Otherwise completely dependent iADLs: Completely dependent Hearing: Seems grossly intact today, patient makes sounds when he is unhappy with what we are saying Vision: Seems that patient's glasses were broken since I last saw him. Left lens completely missing. Unclear if he can see out of the right lens. This may be causing difficulties with using communication boards. Falls: None recently Cognition: Difficult to evaluate Palliative Performance Scale % Ambulation Activity and Evidence of Disease Self Care Intake Level of Consciousness 100 Full Normal activity, no evidence of disease Full Normal Full 90 Full Normal activity, some evidence of disease Full Normal Full 80 Full Normal activity with effort, some evidence of disease Full Normal or reduced Full 70 Reduced Unable to do normal work, some evidence of disease Full Normal or reduced Full 60 Reduced Unable to do hobby or some housework, significant disease Occasional assist necessary Normal or reduced Full or confusion 50 Mainly sit/lie Unable to do any work, extensive disease Considerable assistance required Normal or reduced Full or confusion 40 Mainly in bed Unable to do any work, extensive disease Mainly assistance Normal or reduced Full, drowsy, or confusion 30 Totally bed bound Unable to do any work, extensive disease Total care Reduced Full, drowsy, or confusion 20 Totally bed bound Unable to do any work, extensive disease Total care Minimal sips Full, drowsy, or confusion 10 Totally bed bound Unable to do any work, extensive disease Total care Mouth care only Drowsy or coma 0 - - - - Patient Score: 30?40 Spiritual history: Unknown Palliative review of systems: Pain: History of pain right shoulder since stroke. Not queried today. Dyspnea:None GI symptoms: No dysphagia, says he is eating. Appetite: Not queried Depression: Has had in the past. Anxiety: Emotional Distress: Yes, gets upset multiple times today during discussions regarding discharge planning and what happened leading up to hospital admission. Spiritual/Existential Distress: Labs: No blood work in chart since 03/17 Advanced Care Planning: Advanced Directive: None on file Health Care Agent: son Susie Caballero, see HCA form on file. Uncle Walt Caballero is alternate. Daughter Alejandra is listed as being able to participate in medical decision making. COLST: None. Patient wishes to be full code, see assessment plan. I have been multiple discussions at each palliative care visit with both the patient, son Susie. Both son and patient have been adamant that they want him to be full code. Limitations: Unable to evaluate today Exam Narrative Exam Narrative: Patient initially sleeping with his head under the blanket. Awakens easily to my voice. Alert. Dense right upper and lower extremity paralysis. Eyeglasses are missing left lens, frame is broken, patient seems to be having trouble whenever he has to look at communication board or piece of paper. Edentulous (Susie had reported that dentures were lost during his transfer to [facility] in June and patient confirms that again today) Patient with some identifiable words. Speaking in sentences. Appears to have some word salad. Many of his words are very difficult to understand. He gets very frustrated when we ask him to use any sort of communication tool (paper with yes/no box, papers with limited choices to point out, traditional communication board). See DIRECTOR OF PROMOTIONS evaluation, testing of use of communication board he is from 0-25% accurate when using it. Occasional wet cough. No respiratory distress. Nutritional status: He is peers to have maybe gained a little weight since I last saw him. Objective Last Vital Signs Temp 36.6 C 11/05/23 07:18 Pulse 86 11/05/23 07:18 Resp 13 11/05/23 07:18 BP 125/64 11/05/23 07:18 Pulse Ox 94 11/05/23 07:18
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
--- NOTE | 2023-11-05 13:00 | W.SPSTP ---
Date of service: 11/05/23 Time of Service: 13:00 Subjective PSYCHIATRIC REGISTERED NURSE participating in team discussion with patient with the goal of determining whether or not the patient has capacity to make decisions regarding discharge planning. Patient is tearful at times throughout the discussion. Also present for this discussion were Dr Thomas (Palliative), , Dr. Perdue (hospitalist), Lisa Sam (care management). Objective/Assessment/Plan Objective Treatment Techniques & Outcomes: APHASIA: PSYCHIATRIC REGISTERED NURSE providing some simple picture communication sheets for the concepts of Home Rehab and strengthening/therapy. Despite provision of picture boards/aids, as well as simple Yes/No pointing board patient was not able to give a reliable pointing response to both simple or complex questions. During the conversation, the patient was attempting full sentences that were frequently unintelligible or only partially intelligible despite multiple repetitions, slow rate, etc, as well as containing frequent semantic paraphasias. However, throughout this conversation, there were certain concepts that he was able to spontaneously express verbally in a consistent and open-ended manner, such as that he cares most about returning home, and particularly for the wellbeing of his grandson. He was quite consistent in his verbal responses that he is not interested in going to rehab. When questioned regarding his perception of what level of support he would require at home, he did not provide a consistent verbal response to demonstrate insight into the severity of his deficits or level of support required at home to ensure the patient's safety, but did remain steadfast in his wishes to return home. Additional assessment data taken this date: - Single word comprehension: Patient pointed to identify a picture corresponding to a spoken word, from a field of 2 pictures: +1/4 accuracy (25%) From a field of 4 pictures: +0/4 accuracy (0%) -Comprehension of simple instructions: (e.g., point to the ceiling) +2/4 (50% - chance level) -Yes/No questions (simple, personal) with pointing response +4/8 (50% - chance level) DYSPHAGIA: Providing oral care demonstration and set-up assistance with patient this date. He was able independently clean all oral structures with toothbrush and successful with rinse/spit into basin without impulsive swallow. Reinforced with nursing the importance of oral care frequency given known high risk of aspiration. Patient took 1 sip of thin liquid using PROVALE cup this date. 1x delayed cough. Patient refused further trials. Also noting presence of wet breathing and voice throughout session and occasional cough prior to administration of PO trial. Short Term Goals: Patient will participate in ongoing diagnostic treatment addressing areas of aphasia, dysphagia, AAC. Patient will tolerate Minced/Moist Diet and Thin liquids without overt s/s aspiration across 2/2 visits. Patient/caregivers will be independent with safe swallow/risk management strategies. Assessment While patient does demonstrate some ability to indicate clear care/discharge preferences and family priorities, it remains unclear due to both receptive and expressive communication barriers as well as visual deficits, if he has good insight into his deficits. Of course it is possible that he fully grasps his level of impairment/care needs but that at this time his acute concern for family supersedes. Recommend care team members continue to revisit this discussion over the course of this week as we continue to evaluate most effective communication methods and strategies. Given the severity of his communication disorder, coupled with visual deficits, the currently provided visual communication boards do not appear to be adequate in eliciting a clear/reliable communication method for him. Patient may benefit from some additional diagnostic treatment with simpler/bolder/color coded communication boards to trial to see if Y/N reliability increases with additional supports for visual deficits. He does appear with increased comprehension abilities during contextual activities (e.g., conversation about family) or (e.g., low comprehension of arbitrary instructions, but when handed a toothbrush he follows instructions to clean his mouth, rinse/spit, with high accuracy). Patient remains at high risk of aspiration with liquids, especially when fatigued. Focus this date on reinforcement of education and instructions surrounding oral care given known (silent) aspiration risk. Senior Care Goals: Patient will remain free from aspiration-related illness, malnutrition, and dehydration. Patient/family will verbalize comprehension of education provided re: dx, strategies to maximize functioning, and role of ST. Patient will demonstrate adequate communication skills in order to provide informed decisions about his care. Plan Plan: PSYCHIATRIC REGISTERED NURSE to continue to follow while inpatient with focus on diet tolerance, dysphagia risk mitigation, and further/continued assessment of cognitive-communication status for the purpose of informing discharge recommendations. Likely home health vs SNF at time of discharge for ongoing dysphagia and aphasia management. Recommendations Recommendations: Diet Texture Recommendation:? IDDSI LEVEL 5-Minced & Moist Solids LIQUIDS 0-Thin Liquids MEDICATIONS Recommended whole in applesauce/pudding Patient prefers to take pills with liquid. If declining applesauce/pudding, recommend pills one at a time with sip liquid Diet texture modification is per patient's preference; please adjust diet textures at patient's discretion & collaboration with care team. Do not alter medications (e.g., cut)? without advice from your MD or pharmacist. Risk Management Strategies:? Small bites, approx [id number] Small sips, approx 10 mL Control risk factors for aspiration pneumonia via (a) thorough oral hygiene & (b) maintaining physical mobility as tolerated Total Time Spent: 15 minutes - 76339 dysphagia therapy 30 minutes - 29763 - speech/language therapy total time: 45 minutes Coding CPT Codes SPEECH/HEARING THERAPY - 60175 ([id number]) ORAL FUNCTION THERAPY - 49694 ([id number]) Additional Codes Date of Service (94257) Date of service: 11/05/23
[2023-11-05] MEDS: Acetaminophen 325 MG TAB PO (13:32)
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
[2023-11-05 14:25] LABS: Streptococcus Pneumoniae Ag, U Negative (Negative)
[2023-11-05] MEDS: DEXTROSE 10%-WATER 500 ML 100 ML IV (16:50)
--- NOTE | 2023-11-05 17:40 | W.EVENT ---
Date of service: 11/05/23 Time of Service: 17:40 Event Note: Rapid response called d/t severe hypoglycemia associated w/ decreased level of consciousness. Nursing unable to arouse patient. Fingerstick glucose 65, unable to establish iv, glucagon 2 mg IM ordered but was not readily available. Intraosseous device was used to establish a line in the left tibia. This was performed by ED personnel. D50 was given through the IO line, glucoagon was finally given after the D50. Repeat glucose came up to 169. With the introduction of the IO he became arouseable. Lidocaine was given through the IO for his pain. Patient was transferred to ICU for D10 drip and close serial glucose monitoring. Time Spent with Patient Time spent in critical care(minutes): 35 Time Spent Included: Coordination of care, Time at immediate bedside and Discussing critically ill care with other medical staff
--- NOTE | 2023-11-05 17:54 | NUR.NOTE ---
Nursing Note:pt had low bs reported of 65 by OTOLARYNGOLOGY NURSE, both CC nurses tried to establish IV access after multiple failed attempts, a call to ED to [facility] IV access was denied d/t ED workload, so a rapid reponse was called @ 1715, pt recied IV D50, bs was restored to 169, pt now in ICU for close monitoring
[2023-11-05] MEDS: MORPHine 2 MG/ML SYR IVP (18:00)
--- NOTE | 2023-11-05 18:30 | CHAPLAIN ---
Ed was transferred to the ICU this evening after a medical emergency. He was was in some pain because of the procedures involved. He's currently a full code. I was trying to provide a calming voice for him. He yelled God damn! several times, which was clear, and at one point repeated what sound like not me but I wasn't sure. I let ICU staff know that I'm zoning engineer tonight and can come in if needed.
[2023-11-05] MEDS: VANCOMYCIN/WATER (PEG) 1.5 GM/300 ML BAG IVPB (19:05)
[2023-11-05] MEDS: Sennosides/Docusate Sodium TAB 1 TAB PO (19:54)
[2023-11-05] MEDS: Methylnaltrexone 12 MG/0.6 ML VIAL SC (20:20)
[2023-11-05] MEDS: Bisacodyl 10 MG SUPP PR (20:21)
[2023-11-05] MEDS: cefTRIAXone 1 GM/50 ML BAG IVPB (20:42)
[2023-11-05] MEDS: ARIPiprazole 5 MG TAB PO (22:15)
[2023-11-05] MEDS: Atorvastatin 40 MG TAB 80 MG PO (22:16)
[2023-11-05] MEDS: Enoxaparin 40 MG/0.4 ML SYR SC (22:17)
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
[2023-11-06] VITALS (21 sets, daily range): BP systolic 112–144; BP diastolic 50–65; PULSE 71–100; RESP 11–20; TEMP 36.7–38; O2SAT 88–98
--- NOTE | 2023-11-06 | DI.RAD_ITS ---
Exam(s) XR PORTABLE CHEST AP EXAM: XR PORTABLE CHEST AP CLINICAL HISTORY: follow up pneumonia TECHNIQUE: 2D digital imaging was performed of the chest. One image was obtained. An AP view was ob tained. COMPARISON: CR XR PORTABLE CHEST AP from 05/13/2023 CR,XR XR CHEST 1V IN DI DEPT from 06/16/2023 CR XR CHEST 1V IN DI DEPT from 10/31/2023 FINDINGS: MEDIASTINUM: Normal. HEART: Normal. PULMONARY VASCULATURE: Normal. LUNGS: The nodular opacity in the right mid lung is unchanged compared to 10/31/2023. There is a new infiltrate seen in the left lung base. PLEURAL SPACE: No pleural effusion or pneumothorax. BONE:Within normal limits for the patient's age. OTHER FINDINGS:Normal. IMPRESSION: 1. Stable right mid lung opacity. 2. New left basilar infiltrate. DATA REPOSITORY: RADIATION DOSE DELIVERED:
--- NOTE | 2023-11-06 02:00 | NUR.NOTE ---
Nursing Note: Blood Glucose has dropped from 325 to 252, patient given vanilla pudding with 20 grams of CHO to maintain blood glucose >200 overnight.
[2023-11-06] MEDS: Normal Saline Flush 10 ML SYR IVP (05:40)
[2023-11-06] MEDS: Levothyroxine 112 MCG TAB PO (05:40)
[2023-11-06] MEDS: Levothyroxine 25 MCG TAB PO (05:40)
[2023-11-06 06:04] LABS: Abs Immature Grans 0.04 10^3/uL (0.0-0.06); Absolute Basophil Count 0.04 10^3/uL (0.0-0.2); Absolute Eosinophil Count 0.42 10^3/uL (0.0-0.7); Absolute Lymphocyte Count 1.12 10^3/uL (1.2-3.4); Absolute Monocyte Count 0.73 10^3/uL (0.1-0.8); Absolute Neutrophil Count 7.51 10^3/uL (1.2-6.7); Basophils % 0.4; Eosinophils % 4.3; HCT 24.6 % (40.0-50.0); HGB 8.1 g/dL (13.5-17.5); Immature Grans % 0.4; Lymphocytes % 11.4; MCHC 32.9 % (32.0-36.0); MCV 88 fL (80-95); MPV 10.8 fL (8.0-11.0); Monocytes % 7.4; Neutrophils % 76.1; Platelet Count 230 10^3/uL (130-400); RBC 2.79 10^6/uL (4.36-5.78); RDW 14.5 % (11.8-14.1); RDW-SD 46.6 fL; WBC 9.86 10^3/uL (4.4-10.8)
[2023-11-06 06:23] LABS: Vancomycin, Random 21.9 ug/mL
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
[2023-11-06] MEDS: Methadone Liquid 10 MG/ML 60 MG PO ×2 (09:02→21:00)
[2023-11-06] MEDS: Insulin Aspart 300 UNITS/3 ML PEN SC ×6 (09:28→17:57)
[2023-11-06] MEDS: Gabapentin 800 MG TAB PO ×2 (09:28→21:01)
[2023-11-06] MEDS: Aspirin E.C. 81 MG TABEC PO (09:28)
[2023-11-06] MEDS: Magnesium Oxide 400 MG TAB PO ×2 (09:29→21:02)
[2023-11-06] MEDS: Ticagrelor 90 MG TAB PO ×2 (09:29→21:02)
[2023-11-06] MEDS: clonazePAM 0.5 MG TAB PO ×2 (09:29→21:01)
[2023-11-06] MEDS: Docusate Sodium 100 MG CAP 200 MG PO (09:29)
[2023-11-06] MEDS: Cholecalciferol (Vitamin D3) 1,000 UNIT TAB 1000 UNITS PO (09:29)
[2023-11-06] MEDS: amLODIPine 5 MG TAB PO (09:30)
[2023-11-06] MEDS: Carvedilol 12.5 MG TAB PO (09:30)
[2023-11-06 10:18] LABS: Lab Add On Test DONE
[2023-11-06 10:31] LABS: Magnesium 1.7 mg/dL (1.8-2.4)
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
--- NOTE | 2023-11-06 14:28 | CHAPLAIN ---
Ed was sitting up in a chair when I visited. He was again clearly frustrated with not being able to communicate what he wants to say. I thought he said rabbit and repeated that to him and he said yes but I don't know what rabbit means. He indicated that he wants to go home. There is a family meeting planned for tomorrow with Dr. Thomas, although Ed didn't seem to recognize Dr. Thomas's name. She's visited him at home a couple of times and saw him yesterday. I will continue to visit.
[2023-11-06] MEDS: VANCOMYCIN/WATER (PEG) 1.5 GM/300 ML BAG IVPB (16:20)
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
[2023-11-06] MEDS: cefTRIAXone 1 GM/50 ML BAG IVPB (20:58)
[2023-11-06] MEDS: ARIPiprazole 5 MG TAB PO (21:02)
[2023-11-06] MEDS: Sennosides/Docusate Sodium TAB 1 TAB PO (21:02)
[2023-11-06] MEDS: Atorvastatin 40 MG TAB 80 MG PO (21:03)
[2023-11-06] MEDS: Enoxaparin 40 MG/0.4 ML SYR SC (21:07)
[2023-11-06] MEDS: Insulin Glargine 300 UNITS/3 ML PEN 12 UNITS SC (21:08)
[2023-11-07] VITALS (9 sets, daily range): BP systolic 119–131; BP diastolic 58–59; PULSE 73–77; RESP 14–16; TEMP 36.8–37.3; O2SAT 92–94
[2023-11-07] MEDS: Normal Saline Flush 10 ML SYR IVP ×2 (02:17→04:50)
[2023-11-07] MEDS: Levothyroxine 112 MCG TAB PO (04:50)
[2023-11-07] MEDS: Levothyroxine 25 MCG TAB PO (04:50)
[2023-11-07] MEDS: Insulin Aspart 300 UNITS/3 ML PEN SC ×6 (08:20→18:20)
[2023-11-07] MEDS: amLODIPine 5 MG TAB PO (08:20)
[2023-11-07] MEDS: clonazePAM 0.5 MG TAB PO ×2 (08:20→21:16)
[2023-11-07] MEDS: Cholecalciferol (Vitamin D3) 1,000 UNIT TAB 1000 UNITS PO (08:20)
[2023-11-07] MEDS: Carvedilol 12.5 MG TAB PO (08:20)
[2023-11-07] MEDS: Magnesium Oxide 400 MG TAB PO ×2 (08:20→21:16)
[2023-11-07] MEDS: Aspirin E.C. 81 MG TABEC PO (08:20)
[2023-11-07] MEDS: Gabapentin 800 MG TAB PO ×2 (08:20→21:16)
[2023-11-07] MEDS: Ticagrelor 90 MG TAB PO ×2 (08:20→21:16)
[2023-11-07] MEDS: Docusate Sodium 100 MG CAP 200 MG PO (08:20)
--- NOTE | 2023-11-07 09:11 | OT.INNT ---
Occupational Therapy Notes 11/07/23 Due to a decline in pts medical status and transition to the ICU, OT will need a new referral, if MD feels that skilled OT services is appropriate at this time for pt . Sara Cantu, OTR/L
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
--- NOTE | 2023-11-07 10:29 | STREC_ITS ---
Date of service: 11/07/23 Time of Service: 10:15 Speech Therapy Recommendations Report ST Recommendations: FUR BLOWING MACHINE ATTENDANT attempted to follow up with Ed this date, however patient unavailable due to competing medical needs. Consulted with RN and provided nursing an updated 'Yes/No' communication board, in light of suspicion that vision/broken glasses may be further contributing to difficulty utilizing AAC. This 8x11 sheet contains two large colored squares: Green Yes with thumbs up symbol, and Red No with prohibited symbol. Recommend trial of this board during family meeting later this afternoon. Coding
[2023-11-07] MEDS: Methadone Liquid 10 MG/ML 60 MG PO ×2 (10:30→21:16)
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
[2023-11-07] MEDS: Atorvastatin 40 MG TAB 80 MG PO (21:16)
[2023-11-07] MEDS: Sennosides/Docusate Sodium TAB 1 TAB PO (21:16)
[2023-11-07] MEDS: HYDROcodone 10/Acetaminophen 325 TAB PO (21:16)
[2023-11-07] MEDS: Enoxaparin 40 MG/0.4 ML SYR SC (21:17)
[2023-11-07] MEDS: Insulin Glargine 300 UNITS/3 ML PEN 12 UNITS SC (21:17)
[2023-11-07] MEDS: ARIPiprazole 5 MG TAB PO (21:17)
[2023-11-08 00:02] VITALS: BP 102/51; PULSE 74; RESP 18; TEMP 36.3; O2SAT 92
[2023-11-08] MEDS: HYDROcodone 10/Acetaminophen 325 TAB PO ×3 (04:22→23:10)
[2023-11-08] MEDS: Levothyroxine 112 MCG TAB PO (04:22)
[2023-11-08] MEDS: Levothyroxine 25 MCG TAB PO (04:23)
[2023-11-08 07:36] VITALS: BP 114/64; PULSE 68; RESP 14; TEMP 36.1; O2SAT 92
[2023-11-08] MEDS: Methadone Liquid 10 MG/ML 60 MG PO ×2 (07:38→22:08)
[2023-11-08] MEDS: Magnesium Oxide 400 MG TAB PO ×2 (07:39→22:05)
[2023-11-08] MEDS: Cholecalciferol (Vitamin D3) 1,000 UNIT TAB 1000 UNITS PO (07:39)
[2023-11-08] MEDS: Docusate Sodium 100 MG CAP 200 MG PO (07:39)
[2023-11-08] MEDS: Carvedilol 12.5 MG TAB PO (07:39)
[2023-11-08] MEDS: Aspirin E.C. 81 MG TABEC PO (07:39)
[2023-11-08] MEDS: Gabapentin 800 MG TAB PO ×2 (07:40→22:04)
[2023-11-08] MEDS: amLODIPine 5 MG TAB PO (07:40)
[2023-11-08] MEDS: clonazePAM 0.5 MG TAB PO ×2 (07:40→22:04)
[2023-11-08] MEDS: Insulin Aspart 300 UNITS/3 ML PEN SC ×6 (07:40→17:32)
[2023-11-08] MEDS: Polyethylene Glycol 3350 17 GM PACKET PO (07:40)
[2023-11-08] MEDS: Ticagrelor 90 MG TAB PO ×2 (07:41→22:05)
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
[2023-11-08] MEDS: Acetaminophen 325 MG TAB PO (11:26)
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
[2023-11-08 15:03] VITALS: BP 136/70; PULSE 68; RESP 14; TEMP 36.4; O2SAT 92
--- NOTE | 2023-11-08 17:55 | SPP_ITS ---
Date of service: 11/08/23 Time of Service: 17:55 Subjective FIRE EXTINGUISHER SPRINKLER INSPECTOR contacting patient at bedside during supper meal this evening. He is receptive to work with FIRE EXTINGUISHER SPRINKLER INSPECTOR, appears more happy with his diet texture this date. Throughout session becoming tearful at moments but easily redirected to continue with session with encouragement. Objective/Assessment/Plan Objective Treatment Techniques & Outcomes: DYSPHAGIA: Patient observed with dinner meal, consuming several oz of minced/moist, thin liquid. Noting he is now with adaptive equipment including for cups and silverware. Patient is seated partially upright upon arrival, eating food by himself. FIRE EXTINGUISHER SPRINKLER INSPECTOR utilizing bed controls/tilt in order to achieve upright position closer to 90 degrees. His provale cup which was issued previously and had travelled to the ICU with him is no longer present. Have asked kitchen for assistance locating this. Patient continues with intermittent wet breathing across consistencies, and intermittent coughing with thin liquids. APHASIA: Utilized large (full page, color) Yes/No board for pointing this date to continue to train/assess for consistent communication method ensuring patient comprehension. Point to (Yes/No) : +2/4 Y/N questions with known answer (verbal response): +1/4 Y/N questions with known answer (Pointing response): +1/3, followed by several refusals to point and I don't know. Questions were simple, such as is the light on? or Is your name Ed? Simple instructions (e.g., point to the ceiling) +1/4 Single word comprehension with physical objects - field of 2 (patient handed 2 objects from the room, clinician says Give me the . +0/2 Patient becoming very tearful, attempting to ask about family and refusing to participate further. Assessment SWALLOW: Although he does appear to tolerate purees and minced/moist solids quite well, patient remains at a high risk of aspiration with all liquids, and as such strict aspiration precautions including upright position, 1:1 feed/supervision, small sip size, and diligent oral care should be followed to mitigate risk as much as possible. COMMUNICATION: Patient continues with high frustration with continued assessment and training with communication modalities. Continues with very poor comprehension despite visual-tactile and visual multiple choice as well as continued demonstration and practice with Yes/No pointing board. Will continue to assess, as able, patient best tolerates these activities in short doses. Consider increased use of multimodal response elicitation (e.g., visual written, and verbal) to facilitate comprehension. Suspect patient does exhibit islands of clear expression in conversation, however, continue to suspect his conversational coping strategies may mask his true level of comprehension. Without a clear way to demonstrate reliable comprehension established, and without adequate verbal or written expression, it will be difficult to ascertain his ability to understand complex questions about his discharge planning or medical care. FIRE EXTINGUISHER SPRINKLER INSPECTOR left a packet of papers in patient room with large, color photos of objects (toothbrush, pillow, etc) as well as larger Yes/No pages. Continue to trial with these. If able, photos of family, home, etc may be helpful to acquire to help facilitate further training. Plan: FIRE EXTINGUISHER SPRINKLER INSPECTOR to continue to follow while inpatient with focus on diet tolerance, dysphagia risk mitigation, and further/continued dynamic assessment/trial treatment of aphasia especially as pertains to facilitation of healthcare decisions. Discharge recommendations. Likely SNF at time of discharge for ongoing dysphagia and aphasia management. Recommendations: SOLIDS: 5-Minced & Moist Solids LIQUIDS: 0-Thin Liquids - via provale cup or ensure very small sip size and fully upright posture MEDICATIONS: Whole one at a time with sips liquid, or whole in applesauce/pudding Level of Assistance/Supervision: Close supervision/partial assist with trained staff/family for all PO intake Positioning and environment: PO intake only when awake/alert? Reduce auditory and/or visual distractions when eating [place] upright for all PO intake. Oral hygiene Before/after PO intake Using friction with toothbrush on all oral structures as tolerated Additional Safety Strategies: Small sips approx 10mL Small bites approx [id number] Total Time Spent: Total Time Spent: 15 minutes - 60467 dysphagia therapy 20 minutes - [id number] - speech/language therapy total time: 35 minutes (17:10 - 17:45pm) Coding CPT Codes ORAL FUNCTION THERAPY - 48619 ([id number]) SPEECH/HEARING THERAPY - 87048 ([id number]) Additional Codes Date of Service ([id number]) Date of service: 11/08/23
[2023-11-08 18:38] LABS: Mycoplasma Pneumoniae PCR Negative (Negative); Specimen source Sputum
[2023-11-08 19:30] VITALS: BP 128/64; PULSE 81; RESP 14; TEMP 36.7; O2SAT 96
[2023-11-08] MEDS: Atorvastatin 40 MG TAB 80 MG PO (22:05)
[2023-11-08] MEDS: ARIPiprazole 5 MG TAB PO (22:05)
[2023-11-08] MEDS: Sennosides/Docusate Sodium TAB 1 TAB PO (22:05)
[2023-11-08] MEDS: Enoxaparin 40 MG/0.4 ML SYR SC (22:07)
[2023-11-08] MEDS: Insulin Glargine 300 UNITS/3 ML PEN 12 UNITS SC (22:08)
[2023-11-09] MEDS: HYDROcodone 10/Acetaminophen 325 TAB PO ×5 (03:42→21:56)
[2023-11-09] MEDS: Levothyroxine 25 MCG TAB PO (06:12)
[2023-11-09] MEDS: Levothyroxine 112 MCG TAB PO (06:12)
[2023-11-09 07:50] VITALS: BP 136/68; PULSE 77; TEMP 37; O2SAT 88
[2023-11-09] MEDS: Ticagrelor 90 MG TAB PO ×2 (08:09→21:55)
[2023-11-09] MEDS: Gabapentin 800 MG TAB PO ×2 (08:09→21:56)
[2023-11-09] MEDS: Aspirin E.C. 81 MG TABEC PO (08:09)
[2023-11-09] MEDS: clonazePAM 0.5 MG TAB PO ×2 (08:09→21:56)
[2023-11-09] MEDS: Magnesium Oxide 400 MG TAB PO ×2 (08:10→21:56)
[2023-11-09] MEDS: Docusate Sodium 100 MG CAP 200 MG PO (08:10)
[2023-11-09] MEDS: Carvedilol 12.5 MG TAB PO (08:11)
[2023-11-09] MEDS: Methadone Liquid 10 MG/ML 60 MG PO ×2 (08:11→22:00)
[2023-11-09] MEDS: Cholecalciferol (Vitamin D3) 1,000 UNIT TAB 1000 UNITS PO (08:11)
[2023-11-09] MEDS: Insulin Aspart 300 UNITS/3 ML PEN SC ×5 (08:11→17:00)
[2023-11-09] MEDS: amLODIPine 5 MG TAB PO (08:11)
[2023-11-09] MEDS: Polyethylene Glycol 3350 17 GM PACKET PO (08:14)
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
[2023-11-09 15:33] VITALS: BP 126/54; PULSE 73; RESP 18; TEMP 37; O2SAT 92
[2023-11-09] MEDS: Sennosides/Docusate Sodium TAB 1 TAB PO (21:55)
[2023-11-09] MEDS: ARIPiprazole 5 MG TAB PO (21:55)
[2023-11-09] MEDS: Atorvastatin 40 MG TAB 80 MG PO (21:55)
[2023-11-09] MEDS: Enoxaparin 40 MG/0.4 ML SYR SC (22:01)
[2023-11-09] MEDS: Insulin Glargine 300 UNITS/3 ML PEN 12 UNITS SC (22:01)
[2023-11-10] MEDS: HYDROcodone 10/Acetaminophen 325 TAB PO ×4 (05:55→22:26)
[2023-11-10] MEDS: Levothyroxine 112 MCG TAB PO (05:56)
[2023-11-10] MEDS: Levothyroxine 25 MCG TAB PO (05:56)
[2023-11-10 08:02] VITALS: BP 130/69; PULSE 73; RESP 14; TEMP 36.6; O2SAT 94
[2023-11-10] MEDS: Cholecalciferol (Vitamin D3) 1,000 UNIT TAB 1000 UNITS PO (08:18)
[2023-11-10] MEDS: Magnesium Oxide 400 MG TAB PO ×2 (08:19→20:51)
[2023-11-10] MEDS: Gabapentin 800 MG TAB PO ×2 (08:19→20:51)
[2023-11-10] MEDS: Aspirin E.C. 81 MG TABEC PO (08:20)
[2023-11-10] MEDS: Carvedilol 12.5 MG TAB PO (08:20)
[2023-11-10] MEDS: Ticagrelor 90 MG TAB PO ×2 (08:20→20:52)
[2023-11-10] MEDS: Docusate Sodium 100 MG CAP 200 MG PO (08:20)
[2023-11-10] MEDS: clonazePAM 0.5 MG TAB PO ×2 (08:20→20:50)
[2023-11-10] MEDS: Polyethylene Glycol 3350 17 GM PACKET PO (08:21)
[2023-11-10] MEDS: amLODIPine 5 MG TAB PO (08:21)
[2023-11-10] MEDS: Methadone Liquid 10 MG/ML 60 MG PO ×2 (08:24→20:55)
[2023-11-10] MEDS: Insulin Aspart 300 UNITS/3 ML PEN SC ×5 (08:24→16:49)
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
[2023-11-10] MEDS: Bisacodyl 10 MG SUPP PR (14:48)
[2023-11-10 14:53] VITALS: BP 113/61; PULSE 62; RESP 14; TEMP 36.1; O2SAT 95
[2023-11-10] MEDS: Sennosides/Docusate Sodium TAB 1 TAB PO (20:51)
[2023-11-10] MEDS: Atorvastatin 40 MG TAB 80 MG PO (20:51)
[2023-11-10] MEDS: ARIPiprazole 5 MG TAB PO (20:52)
[2023-11-10] MEDS: Enoxaparin 40 MG/0.4 ML SYR SC (21:01)
[2023-11-10 22:20] VITALS: BP 130/74; PULSE 74; RESP 18; TEMP 36.6; O2SAT 95
[2023-11-10] MEDS: Insulin Glargine 300 UNITS/3 ML PEN 12 UNITS SC (22:21)
[2023-11-11] MEDS: Levothyroxine 25 MCG TAB PO (05:44)
[2023-11-11] MEDS: Levothyroxine 112 MCG TAB PO (05:44)
[2023-11-11] MEDS: HYDROcodone 10/Acetaminophen 325 TAB PO (05:44)
[2023-11-11 08:34] VITALS: BP 114/48; PULSE 67; RESP 18; TEMP 36.6; O2SAT 93
[2023-11-11] MEDS: Polyethylene Glycol 3350 17 GM PACKET PO (08:56)
[2023-11-11] MEDS: Ticagrelor 90 MG TAB PO (08:58)
[2023-11-11] MEDS: clonazePAM 0.5 MG TAB PO (08:58)
[2023-11-11] MEDS: Docusate Sodium 100 MG CAP 200 MG PO (08:58)
[2023-11-11] MEDS: Magnesium Oxide 400 MG TAB PO (08:58)
[2023-11-11] MEDS: Cholecalciferol (Vitamin D3) 1,000 UNIT TAB 1000 UNITS PO (08:59)
[2023-11-11] MEDS: amLODIPine 5 MG TAB PO (08:59)
[2023-11-11] MEDS: Aspirin E.C. 81 MG TABEC PO (08:59)
[2023-11-11] MEDS: Carvedilol 12.5 MG TAB PO (08:59)
[2023-11-11] MEDS: Gabapentin 800 MG TAB PO (08:59)
[2023-11-11] MEDS: Methadone Liquid 10 MG/ML 60 MG PO (08:59)
[2023-11-11] MEDS: Insulin Aspart 300 UNITS/3 ML PEN SC ×3 (09:09→12:50)
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
[2023-11-11 15:45] VITALS: BP 129/56; PULSE 71; RESP 18; TEMP 37.2; O2SAT 94
--- NOTE | 2023-11-14 16:22 | STREC_ITS ---
Date of service: 11/14/23 Time of Service: 16:00 Speech Therapy Recommendations Report ST Recommendations: New speech therapy consultation orders received. Patient converted from swing bed level I to inpatient observation status this date following a respiratory e vent, suspected to be medication-induced. RN denies new concerns with dysphagia, though increased fatigue/lethargy this afternoon. SEWER SYSTEM SUPERVISOR attempted re-assessment at 16:00; patient asleep though easily awoke to verbal/tactile cues. Following clinician introduction, patient closed eyes, shook head, and said no. When provided Yes/No colored communication board, he was asked Do you want to work with me? and pointed to No. He was then asked, Do you want to rest? and he nodded head. SEWER SYSTEM SUPERVISOR to re-attempt at later date. Please continue strict aspiration precautions, as copied below: SOLIDS: 5-Minced & Moist Solids LIQUIDS: 0-Thin Liquids - via provale cup or ensure very small sip size and fully upright posture MEDICATIONS: Whole one at a time with sips liquid, or whole in applesauce/pudding Level of Assistance/Supervision: Close supervision/partial assist with trained staff/family for all PO intake Positioning and environment: PO intake only when awake/alert? Reduce auditory and/or visual distractions when eating [place] upright for all PO intake. Oral hygiene Before/after PO intake Using friction with toothbrush on all oral structures as tolerated Additional Safety Strategies: Small sips approx 10mL Small bites approx [id number] Coding
== END 2023-11-11 15:49 | disposition still patient (30) | DRG 194 ==
LOC: ER 19:59 → MS 21:31 → ICU 11-05 17:57 → MS 11-07 17:17
PROVIDERS: Internal Medicine; Admitting Provider Family Medicine; Emergency Provider Emergency Medicine; PCP Nurse Practitioner Family; Visit Provider Family Medicine
DX: J18.9 Pneumonia, unspecified organism (principal); E87.20 Acidosis, unspecified; I69.951 Hemiplegia and hemiparesis following unspecified cerebrovascular disease affecting right dominant side; N17.9 Acute kidney failure, unspecified; F11.20 Opioid dependence, uncomplicated; T76.01XA Adult neglect or abandonment, suspected, initial encounter; E86.0 Dehydration; E11.42 Type 2 diabetes mellitus with diabetic polyneuropathy; Z79.4 Long term (current) use of insulin; F19.11 Other psychoactive substance abuse, in remission; I10 Essential (primary) hypertension; E78.5 Hyperlipidemia, unspecified; R13.12 Dysphagia, oropharyngeal phase; R45.1 Restlessness and agitation; M25.511 Pain in right shoulder; G89.29 Other chronic pain; D72.829 Elevated white blood cell count, unspecified; E78.2 Mixed hyperlipidemia; E11.65 Type 2 diabetes mellitus with hyperglycemia; E03.9 Hypothyroidism, unspecified; Z89.421 Acquired absence of other right toe(s); R91.1 Solitary pulmonary nodule; F41.1 Generalized anxiety disorder; J45.909 Unspecified asthma, uncomplicated; R41.89 Other symptoms and signs involving cognitive functions and awareness; F90.9 Attention-deficit hyperactivity disorder, unspecified type; I65.22 Occlusion and stenosis of left carotid artery; F17.290 Nicotine dependence, other tobacco product, uncomplicated; L89.892 Pressure ulcer of other site, stage 2; L89.312 Pressure ulcer of right buttock, stage 2; E11.649 Type 2 diabetes mellitus with hypoglycemia without coma
CPT/HCPCS: 00123; 36410; 36415; 36416; 73562; 80048; 80053; 80061; 80307; 82550; 82805; 82962; 84145; 85027; 87040; 87077; 87449; 87637; 87641; 92526; 92610; 96361; 96365; 96368; 97116; 97162; 97163; 97166; 97530; 97535; 99285; J1650; 70450; 71045; 72170; 73110; 74221; 80202; 81003; 81015; 82270; 82728; 83036; 83540; 83550; 83605; 83735; 84443; 84466; 85025; 85610; 85730; 86140; 87086; 87186; 87581; 87899; 92507; 93005; 93010; 93971; 99232; 99233; 99239; 99291; J0456; J0696; J2060; J2270; J3480; J3490

== ENCOUNTER 2023-11-11 09:50 | Inpatient (IN) | payer MEDICARE, MEDICAID, SELFPAY ==
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
--- NOTE | 2023-11-11 15:59 | CMPROGNOTE_ITS ---
Date of service: 11/11/23 Time of Service: 15:59 Care Management Progress Note Progress Note Text Progress Note Text: S/O:Ed was sitting up in bed when CM met with him. He was awake and alert and maintained good eye contact with CM. CM explained to Ed that he would not be able to go home right now. Susie is unable to provide his care currently and there is no one else in the residence. CM informed him that we would need to change his status to SB-1 to enable him to continue working with PT. CM reminded Ed that in previous conversations, he has been clear about not wanting to go to rehab. He became animated and shook his head indicating that was not the case. When asked if he would be willing to go to rehab now, he said yes. CM stated that referrals would be sent to several facilities in [place]. CM also indicated that SNF beds are scarce right now, but that we would do our best to find a location close to home. [facility] remains closed to admissions but transfer to their facility would be possible when they are again open. Ed was changed to SB-1 status today to continue to work with PT. A:Ed is a 73 year old man admitted on 10/31/23 with dehydration and pneumonia P:. In conversation with ED, CM asked again if he would be willing to go to a SNF for short term rehab and today he answered in the affirmative. As a result, referrals for short term rehab were sent to [place], [facility], [facility] and [facility]. Other options are being explored as well such as private caregivers in the home, possible AF home placement or having Aljeandra participate in some capacity. Ed transitioned to swing bed status today as he no longer requires hospital level of care; he will continue to work with PT. CM will follow and continue to assess for and support discharge needs.
[2023-11-11 16:36] VITALS: BP 129/56; PULSE 71; RESP 18; TEMP 37.2; O2SAT 94
[2023-11-11] MEDS: HYDROcodone 10/Acetaminophen 325 TAB PO (17:35)
[2023-11-11] MEDS: Bisacodyl 10 MG SUPP PR (17:35)
[2023-11-11] MEDS: Insulin Aspart 300 UNITS/3 ML PEN SC ×2 (17:38→17:40)
[2023-11-11] MEDS: Sennosides/Docusate Sodium TAB 1 TAB PO (20:39)
[2023-11-11] MEDS: Ticagrelor 90 MG TAB PO (20:39)
[2023-11-11] MEDS: Magnesium Oxide 400 MG TAB PO (20:40)
[2023-11-11] MEDS: Gabapentin 800 MG TAB PO (20:40)
[2023-11-11] MEDS: clonazePAM 0.5 MG TAB PO (20:40)
[2023-11-11] MEDS: Methadone Liquid 10 MG/ML 60 MG PO (20:45)
[2023-11-11] MEDS: Atorvastatin 40 MG TAB 80 MG PO (21:40)
[2023-11-11] MEDS: ARIPiprazole 5 MG TAB PO (21:40)
[2023-11-11] MEDS: Insulin Glargine 300 UNITS/3 ML PEN 12 UNITS SC (21:41)
[2023-11-11] MEDS: Enoxaparin 40 MG/0.4 ML SYR SC (21:41)
[2023-11-11 22:25] VITALS: BP 129/61; PULSE 74; RESP 18; TEMP 36.5; O2SAT 92
[2023-11-12] MEDS: HYDROcodone 10/Acetaminophen 325 TAB PO ×2 (00:40→15:06)
[2023-11-12] MEDS: Levothyroxine 112 MCG TAB PO (05:01)
[2023-11-12] MEDS: Levothyroxine 25 MCG TAB PO (05:01)
[2023-11-12] MEDS: clonazePAM 0.5 MG TAB PO ×2 (07:31→19:59)
[2023-11-12] MEDS: Ticagrelor 90 MG TAB PO ×2 (07:31→19:59)
[2023-11-12] MEDS: Gabapentin 800 MG TAB PO ×2 (07:32→19:59)
[2023-11-12] MEDS: Methadone Liquid 10 MG/ML 60 MG PO ×2 (07:36→19:58)
[2023-11-12 07:37] VITALS: BP 130/74; PULSE 88; RESP 18; TEMP 37.1; O2SAT 93
[2023-11-12] MEDS: Polyethylene Glycol 3350 17 GM PACKET PO (09:34)
[2023-11-12] MEDS: Magnesium Oxide 400 MG TAB PO ×2 (09:34→19:59)
[2023-11-12] MEDS: Docusate Sodium 100 MG CAP 200 MG PO (09:34)
[2023-11-12] MEDS: amLODIPine 5 MG TAB PO (09:34)
[2023-11-12] MEDS: Cholecalciferol (Vitamin D3) 1,000 UNIT TAB 1000 UNITS PO (09:35)
[2023-11-12] MEDS: Aspirin E.C. 81 MG TABEC PO (09:35)
[2023-11-12] MEDS: Carvedilol 12.5 MG TAB PO (09:35)
[2023-11-12] MEDS: Insulin Aspart 300 UNITS/3 ML PEN SC ×5 (09:36→17:40)
--- NOTE | 2023-11-12 10:13 | PT.INTREAT ---
PT Notes Visit Reasons: Weakness Date: 11/12/2023 PRECAUTIONS: Fall, standard, activity as tolerated. Contact precautions, Hemiparesis right side. Expressive aphasia. SUBJECTIVE: pt agreed to participating with therapy, trying to converse but is having a hard time expressing himself, able to follow simple verbal cues, was able to express melony while listening to Chinedu stanford. In bed when approached for therapy this afternoon, agreed to participating with therapy OBJECTIVE: (AM)Supine semi chung's in bed, agreeable to therapy. INSPECTOR ELECTROMECHANICAL present for assist with transfer. (PM) pt in bed supine agreed to participating with therapy . ? PAIN: Right shoulder pain on movement Therapeutic Activities [id number] x1 bed to shower bed transporter (am) [id number] bed to EOB (pm ): Direct one-on-one instruction in dynamic activities to improve functional performance. ? BED MOBILITY/TRANSFERS? Rolling L/R: mod assist of 1 Supine-sit: mod assist of 1 ? Sit-supine: mod assist of 1 ? Sit-stand: 50% assist to brace right knee, mod assist of 1 lifting up at gait belt for the first 50% of standing? Stand-sit: mod assit of 1 and verbal cues for safety ? Stand pivot transfer going to shower transporter: max A+1 Sit to stand from EOB: 3x mod A for knee brace, pt able to tolerate 10secs each sit to stand? Provided skilled cues and instruction on performance and technique throughout. ASSESSMENT:? Patient tolerates therapy well, pt very engaged, reports fatigue after sit to stand activity.. PLAN: Continue global strengthening per plan of care, until patient is medically cleared for discharge and obtains safe discharge plan. TREATMENT CODE/TIME: [id number] 15mins (9:55-10:10am), [id number] 1mins (2:05-2:20pm)
--- NOTE | 2023-11-12 10:43 | CM.SBPSYCH ---
Date of service: 11/12/23 Time of Service: 10:43 SB Psychosocial/Act. Assmt Hospital Admission Admission Date: 10/31/23 Admission From:: ED Diagnosis:: Pneumonia and dehydration Swing Bed Admission Swing Bed Admit Date:: 11/11/23 Swing Bed Level of Care: Level 1/SNF Social Supports PREVIOUS FUNCTIONAL STATUS/SOCIAL/FAMILY SUPPORTS:: Ed lives in a mobile home on a large piece of property in [place], [place]. He has 2 children. His son Susie lives in a separate dwelling on his property and his daughter Alejandra lives close by with her and 4 children. He identified that they are generally supportive. Recently Susie has been staying with Ed and assisting with his care. Prior to Admission Living Arrangements/Environment Prior to Admission:: A wellness check was conducted by [facility] after being alerted by Ed's clinic in [place]. He was found unclothed on the floor covered in stool and urine. He was taken to the hospital and admitted. His son Susie was present but was not in any condition to care for his father. It is unlikely he will be able to function as Ed's caregiver for the foreseeable future as APS is involved. Advance Directives for Healthcare Advance Directives for Healthcare: Advance Directives Community Community Supports/Involvement: [facility] Highest needs Roxann Shannon [facility] case manager specialist for LTM [id number] Present Functional Status Physical Abilities:: s/p stroke with right hemiparesis Cognitive:: appears intact Communication:: very limited. has expressive aphasia and unable to point or write to effectively communicate Sensory Systems: broken glasses, edentulous (teeth lost at another facility Behavior:: mostly appropriate. periods of frustration with inability to communicate needs effectively Medical History PAST MEDICAL HISTORY/PAST SURGICAL HISTORY:: All Active Problems (Updated 06/13/22 @ 13:17 by Nolan Cartagena MD) Osteomyelitis of great toe of left foot (Acute) Hyperglycemia (Acute) Hypothyroidism (Chronic) Osteomyelitis due to type 2 diabetes mellitus (Acute) left great toe Foot infection (Acute) Cellulitis (Acute) Osteomyelitis of toe of right foot (Acute) MRSA bacteremia (Acute) Discharge planning issues (Acute) DVT prophylaxis (Acute) Diabetic infection of right foot (Acute) Cellulitis of foot, right (Acute) Acute kidney injury (Acute) Osteomyelitis of second toe of left foot (Acute) 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 no safe discharge plan. Discharge Plan:: Unclear at this time. Requires 17/06 care. No caregiver available at this time. Referrals sent to SNFS but no bed offers received. [employer] Assistant: Lisa Sam Date Assessment was completed:: 11/11/23
--- NOTE | 2023-11-12 10:48 | CMSCP_ITS ---
Date of service: 11/12/23 Time of Service: 10:48 Swingbed Plan of Care Activites/Discharge Plan of care: SWING BED PROGRAM ACTIVITIES/DISCHARGE PLAN OF CARE ACTIVITIES PLAN Date:11/11/23 Identified Need:individualized activities plan Intervention/Plan:Ed enjoys watching tv and visiting with family. He is aphasic so conversation is challenging although he is able to speak some words. His daughter visits almost daily. Ed would enjoy music therapy and pet therapy when available. Initials [facility] DISCHARGE PLAN Date:11/11/23 Identified Need: Intervention/Plan:Ed requires assistance with all of his care and ADLs. He no longer has a caregiver at home at this time so he will likely need to go to a SNF for short term rehab until caregiver(s) can be obtained. Initials:[facility]
--- NOTE | 2023-11-12 11:46 | PHA.REVIEW2 ---
Pharmacy Admission Review Admission Clinical Review Admission Pharmacy Review: (Updated 11/12/23 @ 00:05 by GABE MATUTE) Discharge planning issues (Acute) Chronic right shoulder pain (Acute) Dysphagia (Acute) codeine Adverse Reaction (Verified 06/16/23 18:04) itching and bloutchy naloxone HCl [From Narcan] Adverse Reaction (Verified 06/16/23 18:04) IT INTERACTS WITH MY METHADONE pentazocine lactate [From Talwin] Adverse Reaction (Verified 06/16/23 18:04) makes me deathly ill Narcotic Adverse Reaction (Uncoded 06/16/23 18:04) H/O drug abuse narcotic antagonists Adverse Reaction (Uncoded 06/16/23 18:04) withdrawls Resuscitation Status Full Code Height 5 ft 9 in Weight 69.2 kg Comments Comments/Follow Ups: Patient is SB waiting on transfer to SNF (per progress note). Pharmacy Admission Review Renal Dosing Medications needing adjustments: Reviewed (CrCl 66.30 mL/min) Anticoagulation DVT Prophylaxis: Reviewed Medications: Enoxaparin (40mg q24h) Opiate Usage Evaluate Pain Scale/Pains Meds: Reviewed (Methadone 60mg BID) Scheduled Bowel Reg ordered if on Opiates?: Yes (JODI / PRN meds) Relevant Labs Electrolytes, C-Reactive P, ESR: Reviewed (No labs, patient is swing bed waiting on transfer to SNF.) DM Control DM Control: Reviewed (Type 2) Insulin Dosing, Diabetic Medication: Has orders for SS insulin, daily glargine and correction dosing with meals. Glucose 138 at 0936 today. Cardiac Review BP, HR, EF%: Reviewed (WNL) QTc Review QTc: Reviewed (552 11/01/23) IV to PO Switch IV Medications: Reviewed Home Meds Home Med List reviewed: Reviewed Current Meds Current Medication Order Review: Reviewed Comments Comments/Follow Ups: Patient is SB waiting on transfer to SNF (per progress note).
--- NOTE | 2023-11-12 12:21 | W.PALPGNOTE ---
Date of service: 11/12/23 Time of Service: Assessment and Plan Assessment and plan (1) Palliative care encounter: Status: Resolved Assessment and plan: #Capacity to make healthcare decisions: Today I used several items from a communication tool called Communication Aid to Capacity Evaluation. This is a screening tool for capacity that is used to assess capacity in patients with aphasia.It uses pictographs (similar to ccommunication boards used by our HAULING CONTRACTOR). Last week we appear to have success in being able to communicate with patient regarding his choice of healthcare agent by writing down names of various options on pieces of paper and having him hand me the paper of his choice. We were able to retest this and he was consistent in his answers. Today I used the images of various ADLs and IADLs. I cut each image into a square. After explaining to the patient, I asked him to hand me the picture representing the skills that he was able to do without assistance. He persisted on wanting to communicate with me verbally. This resulted in nonsense words and word salad (with nonsensical substitutions). Patient seems to feel that he is communicating and does not seem to recognize his expressive aphasia. There is probably also some receptive aphasia as well. Although the images provided by the tool were not perfect, he did not seem to be able to interpret than this. Over the last 2 days speech-language pathologist has been working on trying to evaluate both his expressive and receptive communication. She is pointed out to them when presented with 2 actual objects (for example a brush and a pen), when she asks him to hand her one of the objects by name, he is unable to reliably hand for the correct requested object. It appears that Mr. Caballero really has significant communication issues. Expressive communication challenges are obvious. But based on HAULING CONTRACTOR testing, he likely has receptive communication challenges as well. Unfortunately, based on these findings, at this time and with this level of communication, it does not appear that Mr. Caballero has capacity to Make healthcare and disposition decisions (which are quite complex). He can still make simple decisions, like what he would like to eat, whether he wants to stay in bed or move into a chair. #Advance care planning: Initial hospitalist admission note noted that he was a full code and that probably needed to be addressed . I have discussed goals of care and CODE STATUS with both Mr. Caballero and his children and each time I have met with him. Both he and his son Susie have been adamant that he remain full code and be intubated should this be indicated. Patient indicated that he wanted to avail himself of any treatment recommended. I had plan to revisit CODE STATUS with the patient and his family once he was recovered from acute hospitalization. However I believe that the patient does not currently have capacity to consider and make this decision. We will revisit this down the road with his healthcare agent, daughter Alejandra #Discharge planning/methadone for opioid use disorder: Both the patient and his healthcare agent/daughter Alejandra are agreeable to a subacute rehabilitation stay. The barrier now is that very few long term facilities will dispense methadone to patients with opiate use disorder. According to Internet search, there are few that will prescribe it for short-term subacute rehabilitation stays. However this is much more problematic when looking for a long-term fpc bed. -Although Mr. Caballero reportedly has been receiving methadone 90 mg twice daily for his opioid use disorder long-term, though as per son Susie, he went without receiving any methadone for several weeks in June. When this was discovered, he was restarted on a lower dose and then tapered back up again. Treatment team could consider a slow taper by 10 mg total daily dose every 2 to 3 weeks until he is down to 30 or 40 mg a day. Monitor for development of withdrawal symptoms. #Long-term palliative care patient: The palliative care team will continue to follow Mr. Caballero with his treatment team and his family, as long as he is living within the [facility] Today's palliative care evaluation included consultation time with case management and hospitalist. 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 Caballero is a 73-year-old gentleman from [facility] who has been followed by Palliative Care Team since spring 2022. Medical problems include May 2023 embolic stroke resulting in expressive aphasia and dense right hemiplegia, poorly controlled diabetes (history of chronic foot ulcers and toe amputations), hypertension, opiate use disorder (on long-term methadone from [facility]), hypothyroidism, ADHD. See previous palliative care notes. Today I reviewed speech therapy notes, physical therapy notes, hospitalist and case management notes. Care Team: Primary Care physician: Galen ROCHE treatment: [facility] Neurology: Dr. Rodriguez (no follow-up scheduled Podiatry (currently not need to see podiatry, see discussion above) Social HX: lives in a mobile home in [place], [place]. He has 2 children. His son Susie now living in patient's house with son Jun (other children come by and stay several days a week). Patient's daughter Alejandra lives nearby with her and 4 children. Patient enjoys growing house plants, watching TV, reading, hanging out with grandchildren. Susie is going to be his primary caregiver going forward. Not currently working as patient needs 24/ help. They have a hospital bed and a Lyndsey lift. They have a van with a wheelchair lift. There is a ramp but a better ramp is hopefully going to be installed soon. Current services: -All home health services ended several weeks ago. -Susie completed application successfully for [facility] for care. This was granted within the last month. manager of pmo from [facility] has started working with him to hire respite caregivers, etc. Not too much information on this available to me today. Case management confirmed that he is now enrolled in [facility] for care. Goals: In the past patient's goals were being able to go outside, going for rides and visiting family. In August, he was looking forward to [employer] and putting together their traditional family Chinedu stockings. This discussion was facilitated with son Susie. We have not been able to explore goals with patient due to communication challenges. Function: Ambulation: Nonambulatory. Reportedly no longer needing Lyndsey lift as of August, he was able to transfer from bed to chair with weight on left leg, but only with spotting and one-person assistance. ADLs: Can feed himself. Can indicate when he needs to urinate (uses a urinal on his own). Sometimes now he is able alert caregiver when he needs to have a bowel movement. Otherwise completely dependent iADLs: Completely dependent Hearing: Seems grossly intact today, patient makes sounds when he is unhappy with what we are saying Vision: Seems that patient's glasses were broken since I last saw him. Left lens completely missing. Unclear if he can see out of the right lens. This may be causing difficulties with using communication boards. Falls: None recently Cognition: Difficult to evaluate Palliative Performance Scale % Ambulation Activity and Evidence of Disease Self Care Intake Level of Consciousness 100 Full Normal activity, no evidence of disease Full Normal Full 90 Full Normal activity, some evidence of disease Full Normal Full 80 Full Normal activity with effort, some evidence of disease Full Normal or reduced Full 70 Reduced Unable to do normal work, some evidence of disease Full Normal or reduced Full 60 Reduced Unable to do hobby or some housework, significant disease Occasional assist necessary Normal or reduced Full or confusion 50 Mainly sit/lie Unable to do any work, extensive disease Considerable assistance required Normal or reduced Full or confusion 40 Mainly in bed Unable to do any work, extensive disease Mainly assistance Normal or reduced Full, drowsy, or confusion 30 Totally bed bound Unable to do any work, extensive disease Total care Reduced Full, drowsy, or confusion 20 Totally bed bound Unable to do any work, extensive disease Total care Minimal sips Full, drowsy, or confusion 10 Totally bed bound Unable to do any work, extensive disease Total care Mouth care only Drowsy or coma 0 - - - - Patient Score: 30?40 Spiritual history: Unknown Palliative review of systems: Pain: History of pain right shoulder since stroke. Not queried today. Dyspnea:None GI symptoms: No dysphagia, says he is eating. Appetite: Not queried Depression: Has had in the past. Anxiety: Emotional Distress: Yes, gets upset multiple times today during discussions regarding discharge planning and what happened leading up to hospital admission. Spiritual/Existential Distress: Advanced Care Planning: Advanced Directive: None on file Health Care Agent: See October 2023 healthcare agent form: Healthcare agent is daughter Alejandra Caballero. He declined to appoint an alternate. COLST: None. Patient wishes to be full code, see assessment plan. I have been multiple discussions at each palliative care visit with both the patient, son Susie. Both son and patient have been adamant that they want him to be full code. Limitations: Objective Last Vital Signs Temp 37.1 C 11/12/23 07:37 Pulse 88 11/12/23 07:37 Resp 18 11/12/23 07:37 BP 130/74 12/19/23 07:37 Pulse Ox 93 11/12/23 07:37
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
[2023-11-12 15:29] VITALS: BP 118/67; PULSE 75; RESP 17; TEMP 36.2; O2SAT 93
[2023-11-12] MEDS: Sennosides/Docusate Sodium TAB 1 TAB PO (19:58)
[2023-11-12] MEDS: Enoxaparin 40 MG/0.4 ML SYR SC (21:50)
[2023-11-12] MEDS: ARIPiprazole 5 MG TAB PO (21:50)
[2023-11-12] MEDS: Atorvastatin 40 MG TAB 80 MG PO (21:50)
[2023-11-12] MEDS: Insulin Glargine 300 UNITS/3 ML PEN 12 UNITS SC (22:04)
[2023-11-12 23:19] VITALS: BP 118/67; PULSE 78; RESP 18; TEMP 36.7; O2SAT 94
[2023-11-13] MEDS: Levothyroxine 112 MCG TAB PO (06:07)
[2023-11-13] MEDS: Levothyroxine 25 MCG TAB PO (06:07)
[2023-11-13 07:14] VITALS: BP 134/58; PULSE 79; RESP 15; TEMP 36.6; O2SAT 94
[2023-11-13] MEDS: clonazePAM 0.5 MG TAB PO ×2 (07:36→20:09)
[2023-11-13] MEDS: Polyethylene Glycol 3350 17 GM PACKET PO (07:36)
[2023-11-13] MEDS: amLODIPine 5 MG TAB PO (07:36)
[2023-11-13] MEDS: Ticagrelor 90 MG TAB PO ×2 (07:36→20:09)
[2023-11-13] MEDS: Aspirin E.C. 81 MG TABEC PO (07:36)
[2023-11-13] MEDS: Carvedilol 12.5 MG TAB PO (07:36)
[2023-11-13] MEDS: Cholecalciferol (Vitamin D3) 1,000 UNIT TAB 1000 UNITS PO (07:36)
[2023-11-13] MEDS: Magnesium Oxide 400 MG TAB PO ×2 (07:37→20:09)
[2023-11-13] MEDS: Gabapentin 800 MG TAB PO ×2 (07:37→20:09)
[2023-11-13] MEDS: Docusate Sodium 100 MG CAP 200 MG PO (07:37)
[2023-11-13] MEDS: Methadone Liquid 10 MG/ML 60 MG PO ×2 (07:37→20:08)
[2023-11-13] MEDS: Insulin Aspart 300 UNITS/3 ML PEN SC ×6 (09:52→17:45)
--- NOTE | 2023-11-13 11:01 | PTTR_ITS ---
Date of service: 11/13/23 Time of Service: 09:36 PT Notes Visit Reasons: Weakness Inpatient Physical Therapy Treatment Note [facility] Date: 11/13/23 PRECAUTIONS: Fall, standard, activity as tolerated. CONTACT PRECAUTIONS. SUBJECTIVE: Patient appears to be in a low mood today. Attempts to wave this therapist off, but moves to sit up when this therapist does not immediately leave. AFTERNOON: Patient is encountered yelling Hey, hey! Reports that he needs to use the bathroom. OBJECTIVE: Patient is asleep when this clinician enters, wakes easily. Eventually consents to therapy. AFTERNOON: Supine in bed, agreeable to therapy. ? PAIN: none reported. VITALS: monitored by nursing staff? Therapeutic Activities (56188x3): Direct one-on-one instruction in dynamic activities to improve functional performance. ? BED MOBILITY/TRANSFERS? Rolling L/R: not assessed Supine-sit: min assist with right leg, mod assist to anchor adán walker so patient can pull against it. ? Sit-supine: min assist to lift right leg over EOB, set up so that patient can boost himself up in bed. ? Sit-stand x5: with REPAIR ARMATURE WINDER, min to mod assist of 2 lifting at gait belt, mod assist to maintain standing balance, occasional verbal cueing for posture.?Stand-sit: CGA x2 ? Bed-Chair: not assessed AFTERNOON: min assist, patient slides himself from bed to commode?assisted minimally by this therapist at the gait belt, REPAIR ARMATURE WINDER stabilizing commode. ? Chair-bed: not assessed AFTERNOON: patient stands mod assist at gait belt, remains standing for hygiene assistance leaning heavily towards right side. Seated rest, then stands again for stand-pivot transfer to bed. Mod assist from this therapist with min assist from REPAIR ARMATURE WINDER for safe and gentle landing. Provided skilled cues and instruction on performance and technique throughout. ASSESSMENT:? After standing x5, patient indicates that he is all done with th erapy, sits EOB and tugs at gait belt to have it removed. PLAN: Continue global strengthening per plan of care until patient is medically cleared for discharge and obtains safe discharge plan. TREATMENT CODE/TIME: 22 minutes beginning at 9:43, 10 minutes at 14:28 and 12 minutes at 14:48 for a total of 44 minutes and 3 units today.
[2023-11-13] MEDS: HYDROcodone 10/Acetaminophen 325 TAB PO (20:09)
[2023-11-13 20:56] VITALS: BP 116/54; PULSE 75; RESP 18; TEMP 36.9; O2SAT 97
[2023-11-13] MEDS: Enoxaparin 40 MG/0.4 ML SYR SC (21:04)
[2023-11-13] MEDS: Sennosides/Docusate Sodium TAB 1 TAB PO (21:04)
[2023-11-13] MEDS: ARIPiprazole 5 MG TAB PO (21:04)
[2023-11-13] MEDS: Atorvastatin 40 MG TAB 80 MG PO (21:04)
[2023-11-13] MEDS: Insulin Glargine 300 UNITS/3 ML PEN 12 UNITS SC (21:05)
[2023-11-14] MEDS: Levothyroxine 25 MCG TAB PO (05:25)
[2023-11-14] MEDS: Levothyroxine 112 MCG TAB PO (05:25)
[2023-11-14 07:16] VITALS: BP 150/64; PULSE 69; RESP 17; TEMP 36.2; O2SAT 93
[2023-11-14] MEDS: Aspirin E.C. 81 MG TABEC PO (08:07)
[2023-11-14] MEDS: Cholecalciferol (Vitamin D3) 1,000 UNIT TAB 1000 UNITS PO (08:07)
[2023-11-14] MEDS: Carvedilol 12.5 MG TAB PO (08:07)
[2023-11-14] MEDS: amLODIPine 5 MG TAB PO (08:07)
[2023-11-14] MEDS: Polyethylene Glycol 3350 17 GM PACKET PO (08:07)
[2023-11-14] MEDS: Docusate Sodium 100 MG CAP 200 MG PO (08:08)
[2023-11-14] MEDS: Gabapentin 800 MG TAB PO (08:08)
[2023-11-14] MEDS: Ticagrelor 90 MG TAB PO (08:08)
[2023-11-14] MEDS: clonazePAM 0.5 MG TAB PO (08:08)
[2023-11-14] MEDS: HYDROcodone 10/Acetaminophen 325 TAB PO (08:09)
[2023-11-14] MEDS: Methadone Liquid 10 MG/ML 60 MG PO (08:09)
[2023-11-14] MEDS: Insulin Aspart 300 UNITS/3 ML PEN SC (08:10)
[2023-11-14] MEDS: Magnesium Oxide 400 MG TAB PO (08:10)
--- NOTE | 2023-11-14 09:48 | W.PM.PROGNOT ---
Date of Service Date of service: 11/14/23 Time of Service: 09:48 Subjective Subjective Interval history since last seen: I was called to evaluate the patient at bedside after he was noted to have developed 15 sec apneic pauses and have a low end-tidal CO2 following co-administration of norco and his usual morning dose of methadone. During this episode, evidently there was a slight worsening of his L-sided facial droop. On Arrival, the patient is awake and verbalizing (with his crhonic dysarthria/aphasia). His end-tidal CO2 is 35 on the monitor. He appears to be at his neurological baseline. I feel this is related to the effects of opioids rather than a primary neurologic event. I do not feel a CT of the head is indicated right now. We will obtain a VBG. I instructed the nurses to not co-administer norco and methadone. The patient will remain on end-tidal CO2. We are transitioning him to observation status. Objective Last Vital Signs Temp 36.2 C L 11/14/23 07:16 Pulse 69 11/14/23 07:16 Resp 17 11/14/23 07:16 BP 150/64 H 11/14/23 07:16 Pulse Ox 93 11/14/23 07:16 Time Spent with Patient Time Spent with Patient: <25 minutes Time was spent: preparing to see the patient(eg.review tests), obtaining and/or reviewing separately otained hiistory, ordering medications,tests, procedures, referring, communicating with other health emergency care attendant, indepentently interpreting results, counseling the patient and care coordination
[2023-11-14 10:16] LABS: BE (Venous) 3 mmol/L (-2-3); HCO3 (Venous) 28 mmol/L (23-28); O2 Sat (Venous) 90 %; TCO2 (Venous) 27 mmol/L (24-29); pCO2 (Venous) 47 mmHg (41-51); pH (Venous) 7.38 (7.31-7.41); pO2 (Venous) 57 mmHg
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
--- NOTE | 2023-11-14 12:34 | PDOC.CMPRO ---
Date of service: 11/14/23 Time of Service: 12:34 Care Management Progress Note Progress Note Text Progress Note Text: Edward will transition to observation status overnight for monitoring related to rapid response requiring increased respiratory monitoring.
== END 2023-11-13 10:30 | disposition short-term general hospital (02) | DRG 194 ==
PROVIDERS: Internal Medicine; Admitting Provider Family Medicine; PCP Nurse Practitioner Family; Visit Provider Family Medicine
DX: J18.9 Pneumonia, unspecified organism (principal); F11.20 Opioid dependence, uncomplicated; I69.351 Hemiplegia and hemiparesis following cerebral infarction affecting right dominant side; T76.01XA Adult neglect or abandonment, suspected, initial encounter; N17.9 Acute kidney failure, unspecified; R13.12 Dysphagia, oropharyngeal phase; Z79.899 Other long term (current) drug therapy; M25.511 Pain in right shoulder; R45.1 Restlessness and agitation; E03.9 Hypothyroidism, unspecified; I10 Essential (primary) hypertension; E78.5 Hyperlipidemia, unspecified; E11.42 Type 2 diabetes mellitus with diabetic polyneuropathy; Z79.4 Long term (current) use of insulin; R91.1 Solitary pulmonary nodule; F41.1 Generalized anxiety disorder; I65.22 Occlusion and stenosis of left carotid artery; J45.909 Unspecified asthma, uncomplicated; R41.89 Other symptoms and signs involving cognitive functions and awareness; G89.29 Other chronic pain; F90.9 Attention-deficit hyperactivity disorder, unspecified type; F17.290 Nicotine dependence, other tobacco product, uncomplicated; R06.81 Apnea, not elsewhere classified; T40.3X5A Adverse effect of methadone, initial encounter
CPT/HCPCS: 00123; 36415; 82805; 97162; 97167; 97530; 97535; 99306; 99316; J1650; J3490

== ENCOUNTER 2023-11-13 10:31 | Inpatient (IN) | payer MEDICARE, MEDICAID, SELFPAY ==
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
[2023-11-14] MEDS: Insulin Aspart 300 UNITS/3 ML PEN SC ×4 (12:00→16:57)
--- NOTE | 2023-11-14 12:35 | PDOC.CMPRO ---
Date of service: 11/14/23 Time of Service: 12:35 Care Management Progress Note Progress Note Text Progress Note Text: Edward transitioned to observation status overnight for monitoring related to rapid response requiring increased respiratory monitoring, anticipate he will return to SWB1 status tomorrow.
[2023-11-14 15:15] VITALS: BP 113/63; PULSE 62; RESP 14; TEMP 36.2; O2SAT 97
--- NOTE | 2023-11-14 15:24 | PT.INNT ---
PT Notes Visit Reasons: CO2 Narcosis Patient converted to inpatient observation status (from swing bed level I) as of today due to need for close respiratory monitoring related to this morning's respiratory event which may have been medication-induced. Patient is lethargic and unable to safely participate in PT evaluation today. Will plan on seeing patient tomorrow, as ordered.
[2023-11-14] MEDS: Sennosides/Docusate Sodium TAB 1 TAB PO (19:44)
[2023-11-14] MEDS: Magnesium Oxide 400 MG TAB PO (19:44)
[2023-11-14] MEDS: Ticagrelor 90 MG TAB PO (19:44)
[2023-11-14] MEDS: clonazePAM 0.5 MG TAB PO (19:44)
[2023-11-14] MEDS: Gabapentin 800 MG TAB PO (19:44)
[2023-11-14] MEDS: Methadone Liquid 10 MG/ML 60 MG PO (19:45)
[2023-11-14] MEDS: Atorvastatin 40 MG TAB 80 MG PO (21:35)
[2023-11-14] MEDS: ARIPiprazole 5 MG TAB PO (21:35)
[2023-11-14] MEDS: Insulin Glargine 300 UNITS/3 ML PEN 12 UNITS SC (21:35)
[2023-11-14] MEDS: Enoxaparin 40 MG/0.4 ML SYR SC (21:35)
[2023-11-14 22:59] VITALS: BP 133/63; PULSE 68; RESP 14; TEMP 36.3; O2SAT 96
[2023-11-15] VITALS (8 sets, daily range): BP systolic 110–144; BP diastolic 50–78; PULSE 59–67; RESP 16–18; TEMP 35.5–36.6; O2SAT 92–98
--- NOTE | 2023-11-15 | DI.CT_ITS ---
Exam(s) CT HEAD WO EXAM: CT HEAD WO CLINICAL HISTORY: unresponsive episode, ?seizure. TECHNIQUE: Imaging Protocol: Axial computed tomography images with coronal and sagittal reformatted images were created and reviewed COMPARISON: CT CT HEAD WO from 10/31/2023 FINDINGS: Ventricles and Extra axial spaces: Normal in size and morphology for the patient's age. Hemorrhage: None. Cerebral parenchyma: There is again seen a large left MCA distribution infarct. There are areas of d ecreased attenuation in the white matter consistent with small vessel ischemic disease. No acute mas s effect is identified. Midline shift: None. Brainstem/Cerebellum: Normal. Calvarium: Normal. Visualized Paranasal sinuses/Mastoids: Clear. Soft Tissues: Unremarkable. IMPRESSION: No acute intracranial process. RADIATION DOSE DELIVERED: Total DLP DATA REPOSITORY: All CT scans at this facility are submitted to the National Radiology Data Registry (NRDR) Dose Index Registry (DIR) with the [employer] (ACR). RADIATION OPTIMIZATION: All CT scans at this facility use at least one of these dose optimization te chniques: automated exposure control; mA and/or kV adjustment per patient size (includes targeted exa ms where dose is matched to clinical indication); or iterative reconstruction.
[2023-11-15] MEDS: Levothyroxine 112 MCG TAB PO (03:56)
[2023-11-15] MEDS: Levothyroxine 25 MCG TAB PO (03:56)
[2023-11-15] MEDS: Docusate Sodium 100 MG CAP 200 MG PO (08:14)
[2023-11-15] MEDS: Aspirin E.C. 81 MG TABEC PO (08:15)
[2023-11-15] MEDS: Ticagrelor 90 MG TAB PO ×2 (08:15→21:17)
[2023-11-15] MEDS: clonazePAM 0.5 MG TAB PO ×2 (08:15→21:17)
[2023-11-15] MEDS: Gabapentin 800 MG TAB PO ×2 (08:15→21:16)
[2023-11-15] MEDS: amLODIPine 5 MG TAB PO (08:16)
[2023-11-15] MEDS: Carvedilol 12.5 MG TAB PO (08:16)
[2023-11-15] MEDS: Cholecalciferol (Vitamin D3) 1,000 UNIT TAB 1000 UNITS PO (08:16)
[2023-11-15] MEDS: Magnesium Oxide 400 MG TAB PO ×2 (08:16→21:17)
[2023-11-15] MEDS: Polyethylene Glycol 3350 17 GM PACKET PO (08:18)
[2023-11-15] MEDS: Insulin Aspart 300 UNITS/3 ML PEN SC ×5 (08:19→17:06)
[2023-11-15] MEDS: Methadone Liquid 10 MG/ML 60 MG PO ×2 (08:25→21:17)
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
[2023-11-15] MEDS: Acetaminophen 325 MG TAB 650 MG PO ×2 (11:21→21:16)
--- NOTE | 2023-11-15 12:54 | W.NUTRFU ---
Date of service: 11/15/23 Time of Service: 12:54 Nutrition Note NOTE: Edward is currently ordered for heart healthy and cho consistent diet with minced and moist diet consistencies extra thick liquids. 1:! supervised/assisted feeds for meals. Stef has been stable recently with 1.8kg loss over the last month, however a 34.8kg loss since november of 2021 (a 33% loss of his body weight over this time period). 50-100% of meals currently taken per nursing records. Will add Glucerna to his meal trays for assisted drinking and thickening if needed, to help add some exta kcals and protein during his admission and will check for tolerance with staff. Time Spent in Nutritional Counseling and Treatment: 15 minutes
[2023-11-15] MEDS: HYDROcodone 10/Acetaminophen 325 TAB PO (13:41)
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
[2023-11-15 15:54] LABS: Abs Immature Grans 0.02 10^3/uL (0.0-0.06); Absolute Basophil Count 0.05 10^3/uL (0.0-0.2); Absolute Eosinophil Count 0.41 10^3/uL (0.0-0.7); Absolute Lymphocyte Count 1.27 10^3/uL (1.2-3.4); Absolute Monocyte Count 0.56 10^3/uL (0.1-0.8); Absolute Neutrophil Count 3.48 10^3/uL (1.2-6.7); Basophils % 0.9; Eosinophils % 7.1; HCT 28.2 % (40.0-50.0); Immature Grans % 0.3; Lymphocytes % 21.9; MCH 29.6 pg (27.0-33.0); MCHC 31.9 % (32.0-36.0); MCV 93 fL (80-95); Monocytes % 9.7; Neutrophils % 60.1; Platelet Count 301 10^3/uL (130-400); RBC 3.04 10^6/uL (4.36-5.78); WBC 5.79 10^3/uL (4.4-10.8)
[2023-11-15 15:58] LABS: Anion Gap 3.3 mmol/L (3-11); BUN 30 mg/dL (7-18); CO2 29.7 mmol/L (21.0-32.0); CREATININE 1.1 mg/dL (0.70-1.30); Calcium 8.7 mg/dL (8.5-10.1); Chloride 105 mmol/L (98-107); Estimated GFR 71.77 (mL/min/1.73m2); Glucose 146 mg/dL (74-106); Potassium 4.2 mmol/L (3.5-5.1); Sodium 138 mmol/L (136-145)
[2023-11-15 15:59] LABS: Ammonia 38 umol/L (11-32)
[2023-11-15] MEDS: Bisacodyl 10 MG SUPP PR (16:20)
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
[2023-11-15] MEDS: Atorvastatin 40 MG TAB 80 MG PO (21:16)
[2023-11-15] MEDS: Sennosides/Docusate Sodium TAB 1 TAB PO (21:16)
[2023-11-15] MEDS: ARIPiprazole 5 MG TAB PO (21:17)
[2023-11-15] MEDS: Enoxaparin 40 MG/0.4 ML SYR SC (21:18)
[2023-11-15] MEDS: Insulin Glargine 300 UNITS/3 ML PEN 12 UNITS SC (21:20)
[2023-11-16] MEDS: HYDROcodone 10/Acetaminophen 325 TAB PO ×2 (03:27→11:07)
[2023-11-16 03:37] VITALS: BP 148/69; PULSE 61; RESP 22; TEMP 36.8; O2SAT 97
[2023-11-16] MEDS: Levothyroxine 112 MCG TAB PO (06:31)
[2023-11-16] MEDS: Levothyroxine 25 MCG TAB PO (06:31)
[2023-11-16 07:31] VITALS: BP 123/56; PULSE 63; RESP 18; TEMP 35.6; O2SAT 94
[2023-11-16] MEDS: Polyethylene Glycol 3350 17 GM PACKET PO (08:59)
[2023-11-16] MEDS: Methadone Liquid 10 MG/ML 60 MG PO ×2 (08:59→20:58)
[2023-11-16] MEDS: amLODIPine 5 MG TAB PO (09:01)
[2023-11-16] MEDS: Docusate Sodium 100 MG CAP 200 MG PO (09:01)
[2023-11-16] MEDS: Insulin Aspart 300 UNITS/3 ML PEN SC ×5 (09:01→17:20)
[2023-11-16] MEDS: Magnesium Oxide 400 MG TAB PO ×2 (09:01→20:57)
[2023-11-16] MEDS: Carvedilol 12.5 MG TAB PO (09:02)
[2023-11-16] MEDS: clonazePAM 0.5 MG TAB PO ×2 (09:02→20:57)
[2023-11-16] MEDS: Ticagrelor 90 MG TAB PO ×2 (09:02→20:56)
[2023-11-16] MEDS: Gabapentin 800 MG TAB PO ×2 (09:02→20:57)
[2023-11-16] MEDS: Aspirin E.C. 81 MG TABEC PO (09:02)
[2023-11-16] MEDS: Cholecalciferol (Vitamin D3) 1,000 UNIT TAB 1000 UNITS PO (09:02)
[2023-11-16] MEDS: Omeprazole 20 MG CAPCR 40 MG PO (09:19)
--- NOTE | 2023-11-16 10:46 | PT.INTREAT ---
PT Notes Visit Reasons: CO2 Narcosis Date: 11/16/2023 PRECAUTIONS: Fall, standard, activity as tolerated. Contact precautions, Hemiparesis right side. Expressive aphasia. SUBJECTIVE: pt in bed, communicated using visual aids, agreed to participating with therapy after he has drunk some cranberry juice. OBJECTIVE: Supine semi chung's in bed, agreeable to therapy. . ? PAIN: Right shoulder pain on movement Therapeutic Activities 78741 x2: Direct one-on-one instruction in dynamic activities to improve functional performance. ? BED MOBILITY/TRANSFERS? Rolling L/R: mod assist of 1 Supine-sit: mod assist of 1 ? Sit-supine: mod assist of 1 ? Sit-stand: min/mod A Stand-sit: min A of 1 and verbal cues for safety ? Sit to stand from EOB: 4x min A for knee brace, pt able to tolerate 10secs each sit to stand? Provided skilled cues and instruction on performance and technique throughout. ASSESSMENT:? Patient tolerates therapy well, pt very engaged, reports fatigue after sit to stand activity. pt able to go up higher in bed with setup A for bed repositioning lowering of head and elevation leg part of bed for easier transition. pt again able to communicate using visual aid that he would like a drink of cranberry juice as well as turning the TV on post session. PLAN: Continue global strengthening per plan of care, until patient is medically cleared for discharge and obtains safe discharge plan. TREATMENT CODE/TIME: 36054l1 25mins (10:15-10:40am)
[2023-11-16 11:10] VITALS: BP 127/71; PULSE 75; RESP 18; TEMP 35.9; O2SAT 96
[2023-11-16] MEDS: Normal Saline Flush 10 ML SYR IVP ×2 (11:51→20:59)
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
[2023-11-16 15:37] VITALS: BP 102/56; PULSE 64; RESP 18; TEMP 36.2; O2SAT 96
[2023-11-16 20:05] VITALS: BP 139/75; PULSE 67; RESP 18; TEMP 36.5; O2SAT 95
[2023-11-16] MEDS: Sennosides/Docusate Sodium TAB 1 TAB PO (20:56)
[2023-11-16] MEDS: ARIPiprazole 5 MG TAB PO (20:57)
[2023-11-16] MEDS: Atorvastatin 40 MG TAB 80 MG PO (20:57)
[2023-11-16] MEDS: Acetaminophen 325 MG TAB 650 MG PO (20:58)
[2023-11-16] MEDS: Lactulose 20 GM/30 ML CUP PO (20:58)
[2023-11-16] MEDS: Insulin Glargine 300 UNITS/3 ML PEN 12 UNITS SC (20:58)
[2023-11-16] MEDS: Enoxaparin 40 MG/0.4 ML SYR SC (20:59)
[2023-11-17] VITALS (7 sets, daily range): BP systolic 111–139; BP diastolic 57–70; PULSE 61–71; RESP 15–18; TEMP 35.8–36.5; O2SAT 93–97
[2023-11-17] MEDS: Levothyroxine 25 MCG TAB PO (06:26)
[2023-11-17] MEDS: Levothyroxine 112 MCG TAB PO (06:26)
[2023-11-17] MEDS: Lactulose 20 GM/30 ML CUP PO ×2 (07:56→21:22)
[2023-11-17] MEDS: Normal Saline Flush 10 ML SYR IVP ×2 (07:56→21:24)
[2023-11-17] MEDS: Polyethylene Glycol 3350 17 GM PACKET PO (07:56)
[2023-11-17] MEDS: Methadone Liquid 10 MG/ML 60 MG PO ×2 (07:56→21:25)
[2023-11-17] MEDS: Esomeprazole 40 MG CAPCR PO (07:57)
[2023-11-17] MEDS: Gabapentin 800 MG TAB PO ×2 (07:57→21:24)
[2023-11-17] MEDS: Magnesium Oxide 400 MG TAB PO ×2 (07:57→21:40)
[2023-11-17] MEDS: Docusate Sodium 100 MG CAP 200 MG PO (07:57)
[2023-11-17] MEDS: Carvedilol 12.5 MG TAB PO (07:57)
[2023-11-17] MEDS: amLODIPine 5 MG TAB PO (07:57)
[2023-11-17] MEDS: Cholecalciferol (Vitamin D3) 1,000 UNIT TAB 1000 UNITS PO (07:57)
[2023-11-17] MEDS: clonazePAM 0.5 MG TAB PO ×2 (07:58→21:23)
[2023-11-17] MEDS: Ticagrelor 90 MG TAB PO ×2 (07:58→21:23)
[2023-11-17] MEDS: Aspirin E.C. 81 MG TABEC PO (07:58)
[2023-11-17] MEDS: Insulin Aspart 300 UNITS/3 ML PEN SC ×5 (08:34→17:11)
--- NOTE | 2023-11-17 10:27 | PT.INNT ---
PT Notes Visit Reasons: CO2 Narcosis Pt in a very depressed mood today, approached multiple times but was refused at all attempts, Nurse Selene aware of pt refusals.
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
[2023-11-17] MEDS: Atorvastatin 40 MG TAB 80 MG PO (21:22)
[2023-11-17] MEDS: ARIPiprazole 5 MG TAB PO (21:22)
[2023-11-17] MEDS: Acetaminophen 325 MG TAB 650 MG PO (21:23)
[2023-11-17] MEDS: Sennosides/Docusate Sodium TAB 1 TAB PO (21:23)
[2023-11-17] MEDS: Enoxaparin 40 MG/0.4 ML SYR SC (21:24)
[2023-11-17] MEDS: Insulin Glargine 300 UNITS/3 ML PEN 12 UNITS SC (21:25)
[2023-11-18] VITALS (7 sets, daily range): BP systolic 109–143; BP diastolic 56–65; PULSE 58–68; RESP 16–20; TEMP 35.3–36.6; O2SAT 95–98
[2023-11-18] MEDS: Levothyroxine 112 MCG TAB PO (06:23)
[2023-11-18] MEDS: Levothyroxine 25 MCG TAB PO (06:24)
[2023-11-18 06:44] LABS: Ammonia 42 umol/L (11-32)
[2023-11-18] MEDS: Gabapentin 800 MG TAB PO ×2 (07:47→19:56)
[2023-11-18] MEDS: Ticagrelor 90 MG TAB PO ×2 (07:47→19:56)
[2023-11-18] MEDS: Esomeprazole 40 MG CAPCR PO (07:47)
[2023-11-18] MEDS: Magnesium Oxide 400 MG TAB PO ×2 (07:47→19:56)
[2023-11-18] MEDS: Cholecalciferol (Vitamin D3) 1,000 UNIT TAB 1000 UNITS PO (07:47)
[2023-11-18] MEDS: Aspirin E.C. 81 MG TABEC PO (07:47)
[2023-11-18] MEDS: Normal Saline Flush 10 ML SYR IVP ×2 (07:48→20:00)
[2023-11-18] MEDS: Carvedilol 12.5 MG TAB PO (07:48)
[2023-11-18] MEDS: Methadone Liquid 10 MG/ML 60 MG PO ×2 (07:48→19:58)
[2023-11-18] MEDS: amLODIPine 5 MG TAB PO (07:48)
[2023-11-18] MEDS: Docusate Sodium 100 MG CAP 200 MG PO (07:48)
[2023-11-18] MEDS: clonazePAM 0.5 MG TAB PO ×2 (07:48→19:57)
[2023-11-18] MEDS: Insulin Aspart 300 UNITS/3 ML PEN SC ×5 (09:14→17:33)
[2023-11-18] MEDS: HYDROcodone 10/Acetaminophen 325 TAB PO (11:56)
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
[2023-11-18] MEDS: Sennosides/Docusate Sodium TAB 1 TAB PO (19:57)
[2023-11-18] MEDS: Enoxaparin 40 MG/0.4 ML SYR SC (21:03)
[2023-11-18] MEDS: ARIPiprazole 5 MG TAB PO (21:03)
[2023-11-18] MEDS: Atorvastatin 40 MG TAB 80 MG PO (21:03)
[2023-11-18] MEDS: Insulin Glargine 300 UNITS/3 ML PEN 12 UNITS SC (21:03)
[2023-11-19] MEDS: Levothyroxine 25 MCG TAB PO (05:03)
[2023-11-19] MEDS: Levothyroxine 112 MCG TAB PO (05:03)
[2023-11-19 05:04] VITALS: BP 117/58; PULSE 78; RESP 18; TEMP 35.9; O2SAT 95
[2023-11-19 07:45] VITALS: BP 120/62; PULSE 60; RESP 16; TEMP 36.7; O2SAT 98
[2023-11-19] MEDS: Esomeprazole 40 MG CAPCR PO (07:46)
[2023-11-19] MEDS: Gabapentin 800 MG TAB PO ×2 (07:47→19:57)
[2023-11-19] MEDS: Magnesium Oxide 400 MG TAB PO ×2 (07:47→19:56)
[2023-11-19] MEDS: Docusate Sodium 100 MG CAP 200 MG PO (07:47)
[2023-11-19] MEDS: clonazePAM 0.5 MG TAB PO ×2 (07:48→19:56)
[2023-11-19] MEDS: Ticagrelor 90 MG TAB PO ×2 (07:48→19:56)
[2023-11-19] MEDS: Aspirin E.C. 81 MG TABEC PO (07:48)
[2023-11-19] MEDS: Carvedilol 12.5 MG TAB PO (07:48)
[2023-11-19] MEDS: Cholecalciferol (Vitamin D3) 1,000 UNIT TAB 1000 UNITS PO (07:48)
[2023-11-19] MEDS: amLODIPine 5 MG TAB PO (07:48)
[2023-11-19] MEDS: Methadone Liquid 10 MG/ML 60 MG PO ×2 (07:49→19:59)
[2023-11-19] MEDS: Insulin Aspart 300 UNITS/3 ML PEN SC ×4 (07:49→16:59)
[2023-11-19] MEDS: Polyethylene Glycol 3350 17 GM PACKET PO (07:49)
[2023-11-19] MEDS: Lactulose 20 GM/30 ML CUP PO ×3 (07:50→20:12)
[2023-11-19] MEDS: Normal Saline Flush 10 ML SYR IVP ×2 (07:51→19:57)
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
[2023-11-19 11:09] VITALS: BP 116/63; PULSE 83; RESP 17; TEMP 36.4; O2SAT 95
--- NOTE | 2023-11-19 12:14 | PDOC.CMPRO ---
Date of service: 11/19/23 Time of Service: 12:14 Care Management Progress Note Progress Note Text Progress Note Text: S/O: Per Md, Ed will have a Neuro consult and EEG today, PT reports Ed refused services today, and Saturday as well. CM continues to follow. A: Edmaurice is a 73 year old man admitted on 10/31/23 with BECKY. He transitioned to SB-1 on 11/11/23 then was readmitted in observation status on 11/14/23 following a rapid response. P: Ed's discharge plan is unclear at this time. He has agreed to transfer to a SNF however no bed offers have been received. CM will follow and continue to assess for discharge concerns.
--- NOTE | 2023-11-19 12:50 | W.SPSTP ---
Date of service: 11/19/23 Time of Service: 11:30 Subjective SUBJECTIVE: Patient asleep when EYE CLINIC MANAGER entered though easily awoken to tactile/verbal prompt. Ed was agreeable to EYE CLINIC MANAGER treatment visit this date. Family present earlier in day per nursing, but not present during EYE CLINIC MANAGER session. OBJECTIVE: Expressive Language: Sentence Completion/Automatics (Open the ___) = 1/6 + 3 for approximation given repeated verbal/visual prompts Repeating Information embedded in sentences (She hurt her leg. What did she hurt?) = 0/3 Sentence Completion for personal items (My grandson's name is ____ using photograph) = 0/2 Receptive Language: (Give me the ___ given field of 2 objects) = 4/6 accuracy ASSESSMENT: Ed actively participated in treatment today, with fatigue evident. RN reports not significant changes in status. He was able to follow basic commands given a field of 2 object choices with 66% accuracy today. He demonstrated increased difficulty with expressive language tasks, including automatics/sentence completions (Open the ____) despite attempts to utilize more personally relevant content (eg photo of grandson). Ed did demonstrate frustration with communication challenges, and thus session time reduced to allow break prior to PT. Ed continues to present with severe-profound global receptive-expressive aphasia and moderate to severe oral-pharyngeal dysphagia. He benefits from use of visual aids and limited options (field of 2 if possible) to facilitate comprehension. In addition, patient is at high risk of aspiration and should receive close supervision assistance during PO intake, with strict precautions as outlined below. PLAN: 1-2x/week, 2 weeks Patient to be followed on unit for trial treatment stimulability with communication. DISCHARGE RECOMMENDATIONS: Recommend EYE CLINIC MANAGER services at [facility] at least for initial strategy training with staff for communication and dysphagia. DIET RECOMMENDATIONS: SOLIDS: 5-Minced & Moist Solids LIQUIDS: 0-Thin Liquids - via provale cup or ensure very small sip size and fully upright posture MEDICATIONS: Whole one at a time with sips liquid, or whole in applesauce/pudding Level of Assistance/Supervision: Close supervision/partial assist with trained staff/family for all PO intake Positioning and environment: PO intake only when awake/alert? Reduce auditory and/or visual distractions when eating [place] upright for all PO intake. Oral hygiene Before/after PO intake Using friction with toothbrush on all oral structures as tolerated Additional Safety Strategies: Small sips approx 10mL Small bites approx [id number] COMMUNICATION RECOMMENDATIONS: Comprehension: Reduce length of sentences and complexity of words Utilize demonstration and gesture as much as possible Provide visual aids/resources whenever possible Offer simplified written text whenever possible for patient to review Expression: Allow patient additional time to express self and/or multiple attempts to find word(s) For word finding difficulties during conversation: Provide patient with visual aids (smallest possible field of choice) and allow him to make a choice using pointing or repetition Provide assistance with reading text aloud, encouraging spoken repetition (especially of multisyllabic words) Encourage use of relevant gestures to enhance expression Objective/Assessment/Plan Assessment . Coding CPT Codes ORAL FUNCTION THERAPY - 32217 ([id number]) Additional Codes Date of Service (90627) Date of service: 11/19/23
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
--- NOTE | 2023-11-19 15:08 | PT.INNT ---
Date of service: 11/19/23 Time of Service: 10:30 PT Notes Visit Reasons: Episodes of Unresponsiveness,Suspected Seizure Patient is unavailable at 10:30 and 12:54, and refuses therapy at 11:34 and with increased vigor at 14:33. CM and COMMUNITY SUPPORT WORKER Mac are aware.
[2023-11-19 15:17] VITALS: BP 113/55; PULSE 66; RESP 17; TEMP 36.1; O2SAT 95
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
--- NOTE | 2023-11-19 17:59 | NUR.NOTE ---
Nursing Note: pt is very resistive to care hitting nursing staff, and shouting profanities. pt remained safe during care, top rails are up and alarms are set. no staff or pt injuries occurred during this interaction.
[2023-11-19 19:17] VITALS: BP 116/56; PULSE 74; RESP 20; TEMP 36; O2SAT 99
[2023-11-19] MEDS: Sennosides/Docusate Sodium TAB 1 TAB PO (19:56)
[2023-11-19] MEDS: ARIPiprazole 5 MG TAB PO (20:45)
[2023-11-19] MEDS: Insulin Glargine 300 UNITS/3 ML PEN 12 UNITS SC (20:45)
[2023-11-19] MEDS: Enoxaparin 40 MG/0.4 ML SYR SC (20:45)
[2023-11-19] MEDS: Atorvastatin 40 MG TAB 80 MG PO (20:45)
[2023-11-20 01:11] VITALS: BP 129/63; PULSE 67; RESP 18; TEMP 36.7; O2SAT 97
[2023-11-20] MEDS: Levothyroxine 112 MCG TAB PO (05:50)
[2023-11-20] MEDS: Levothyroxine 25 MCG TAB PO (05:50)
[2023-11-20 06:49] LABS: Ammonia 42 umol/L (11-32)
[2023-11-20 07:02] LABS: ALT 30 U/L (16-63); AST 36 U/L (15-37); Albumin 2.1 g/dL (3.4-5.0); Alkaline Phosphatase 150 U/L (46-116); BUN 24 mg/dL (7-18); Bilirubin, Total 0.4 mg/dL (0.2-1.0); CREATININE 1.1 mg/dL (0.70-1.30); Calcium 8.8 mg/dL (8.5-10.1); Chloride 108 mmol/L (98-107); Estimated GFR 71.77 (mL/min/1.73m2); Glucose 99 mg/dL (74-106); Potassium 3.9 mmol/L (3.5-5.1); Sodium 142 mmol/L (136-145); Total Protein 6.2 g/dL (6.4-8.2)
[2023-11-20 07:09] VITALS: BP 123/51; PULSE 59; RESP 16; TEMP 36.1; O2SAT 99
[2023-11-20] MEDS: Magnesium Oxide 400 MG TAB PO ×2 (08:54→20:39)
[2023-11-20] MEDS: Ticagrelor 90 MG TAB PO ×2 (08:54→20:39)
[2023-11-20] MEDS: Aspirin E.C. 81 MG TABEC PO (08:54)
[2023-11-20] MEDS: Cholecalciferol (Vitamin D3) 1,000 UNIT TAB 1000 UNITS PO (08:54)
[2023-11-20] MEDS: Esomeprazole 40 MG CAPCR PO (08:54)
[2023-11-20] MEDS: Carvedilol 12.5 MG TAB PO (08:55)
[2023-11-20] MEDS: amLODIPine 5 MG TAB PO (08:55)
[2023-11-20] MEDS: Docusate Sodium 100 MG CAP 200 MG PO (08:55)
[2023-11-20] MEDS: Methadone Liquid 10 MG/ML 60 MG PO ×2 (08:55→20:40)
[2023-11-20] MEDS: Gabapentin 800 MG TAB PO ×2 (08:55→20:39)
[2023-11-20] MEDS: clonazePAM 0.5 MG TAB PO ×2 (08:55→20:38)
[2023-11-20] MEDS: Polyethylene Glycol 3350 17 GM PACKET PO (08:56)
[2023-11-20] MEDS: Normal Saline Flush 10 ML SYR IVP ×2 (08:57→20:40)
--- NOTE | 2023-11-20 11:30 | PTTR_ITS ---
Date of service: 11/20/23 Time of Service: 10:55 PT Notes Visit Reasons: Episodes of Unresponsiveness,Suspected Seizure Inpatient Physical Therapy Treatment Note [facility] Date: 11/20/23 PRECAUTIONS: Fall, standard, contact, activity as tolerated. R SIDE WEAKNESS D/T HX OF CVA. SUBJECTIVE: Patient is asleep when this therapist enters, wakes easily, stretches and then offers a smile. Initially disinclined to get up to chair, but changes his mind readily. AFTERNOON: Patient is watching tv when this therapist enters with FREYA Pham. Bernabe. Waffles a bit before deciding to participate in therapy. OBJECTIVE: supine in bed. Agreeable to therapy. AFTERNOON: Supine in bed. Refuses therapy at 14:18, consents to therapy at 15:15.? PAIN: none reported. VITALS: monitored by nursing staff. Therapeutic Activities ([id number]): Direct one-on-one instruction in dynamic activities to improve functional performance. ? BED MOBILITY/TRANSFERS? Rolling L/R: not assessed Supine-sit: min assist to maneuver RLE to EOB, min assist to stabilize patient's trunk until he is able to get his balance under control.? Sit-supine: not assessed? Sit-stand x5: mod assist of one at gait belt from elevated bed (knees ~ 110 degrees) to adán walker? AFTERNOON: Sit to stand x3 with mod assist x1 at gait belt, CGA to min assist of 1 at patient's left axilla.? Stand-sit: CGA with verbal cues. Patient does not flop but sits with control. ?AFTERNOOON: same ? Bed-Chair: attempted x3 - 2x with adán walker were unsuccessful. 3rd attempt patient opted to use the arm of the recliner, and was able to pivot easily. AFTERNOON: Patient intends to ambulate to chair, a distance of ~5 feet. This is unwise. FREYA Pham repositions chair for stand-pivot transfer, which patient completes min assist x2 at gait belt and with this clinician blocking rig ht leg. With verbal cues, patient able to straighten right knee and bilateral hips to improve posture and safety. ? Chair-bed: not assessed AFTERNOON: education provided to FREYA Pham and patient that transfers are easier to the strong side, therefore it will be beneficial to turn the chair around before transferring patient back to bed. Provided skilled cues and instruction on performance and technique throughout. ASSESSMENT:? Patient tolerates therapy well, appears well pleased with himself at his progress after afternoon transfer. PLAN: Continue global strengthening per plan of care until patient is medically cleared for discharge. TREATMENT CODE/TIME: 30 minutes beginning at 10:55 and 14 minutes beginning at 14:53 for a total of 44 minutes today.
[2023-11-20 11:31] VITALS: BP 114/62; PULSE 67; RESP 15; TEMP 36.1; O2SAT 95
[2023-11-20] MEDS: Insulin Aspart 300 UNITS/3 ML PEN SC ×4 (12:26→17:49)
[2023-11-20] MEDS: Lactulose 20 GM/30 ML CUP PO ×2 (14:12→20:41)
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
[2023-11-20 15:04] VITALS: BP 143/73; PULSE 78; RESP 15; TEMP 36.2; O2SAT 90
--- NOTE | 2023-11-20 17:32 | PDOC.CMPRO ---
Date of service: 11/20/23 Time of Service: 17:32 Care Management Progress Note Progress Note Text Progress Note Text: S/O: Ed was scheduled for a neurology consult and an EEG but neither were available today. The EEG will likely be done tomorrow. He has no further neurological events and seems to be doing well. His appetite has been good an he has been feeding himself independently. Over the holiday weekend Ed refused to work with PT, but was willing to do so today. He was able to pivot/transfer to the chair with 2 assist and sit to stand with moderate assist of one.Ed will likely be ready to transition back to SB-1 in the next day or two. A: Darwin is a 73 year old man admitted on 10/31/23 with BECKY. He transitioned to SB-1 on 11/11/23 then was readmitted in observation status on 11/14/23 following a rapid response. P: Ed's discharge plan is unclear at this time. He has agreed to transfer to a SNF however no bed offers have been received. CM will follow and continue to assess for discharge concerns.
[2023-11-20 19:35] VITALS: BP 154/70; PULSE 85; RESP 19; TEMP 36.2; O2SAT 94
[2023-11-20] MEDS: Sennosides/Docusate Sodium TAB 1 TAB PO (20:38)
[2023-11-20] MEDS: Atorvastatin 40 MG TAB 80 MG PO (20:40)
[2023-11-20] MEDS: Enoxaparin 40 MG/0.4 ML SYR SC (20:40)
[2023-11-20] MEDS: ARIPiprazole 5 MG TAB PO (20:40)
[2023-11-20] MEDS: Insulin Glargine 300 UNITS/3 ML PEN 12 UNITS SC (21:18)
[2023-11-21 00:24] VITALS: BP 156/61; PULSE 91; RESP 18; TEMP 36.5; O2SAT 98
[2023-11-21] MEDS: Levothyroxine 112 MCG TAB PO (05:08)
[2023-11-21] MEDS: Levothyroxine 25 MCG TAB PO (05:09)
[2023-11-21 07:35] VITALS: BP 136/64; PULSE 80; RESP 17; TEMP 36.6; O2SAT 95
[2023-11-21] MEDS: Aspirin E.C. 81 MG TABEC PO (07:55)
[2023-11-21] MEDS: Docusate Sodium 100 MG CAP 200 MG PO (07:56)
[2023-11-21] MEDS: clonazePAM 0.5 MG TAB PO ×2 (07:56→21:31)
[2023-11-21] MEDS: Gabapentin 800 MG TAB PO ×2 (07:56→21:30)
[2023-11-21] MEDS: Ticagrelor 90 MG TAB PO ×2 (07:56→21:30)
[2023-11-21] MEDS: Magnesium Oxide 400 MG TAB PO ×2 (07:57→21:31)
[2023-11-21] MEDS: Cholecalciferol (Vitamin D3) 1,000 UNIT TAB 1000 UNITS PO (07:57)
[2023-11-21] MEDS: Carvedilol 12.5 MG TAB PO (07:57)
[2023-11-21] MEDS: amLODIPine 5 MG TAB PO (07:57)
[2023-11-21] MEDS: Methadone Liquid 10 MG/ML 60 MG PO ×2 (07:58→21:31)
[2023-11-21] MEDS: Esomeprazole 40 MG CAPCR PO (07:58)
[2023-11-21] MEDS: Insulin Aspart 300 UNITS/3 ML PEN SC ×6 (08:10→17:32)
[2023-11-21] MEDS: HYDROcodone 10/Acetaminophen 325 TAB PO (08:34)
[2023-11-21] MEDS: Normal Saline Flush 10 ML SYR IVP ×2 (08:35→21:32)
[2023-11-21] MEDS: Polyethylene Glycol 3350 17 GM PACKET PO (08:35)
--- NOTE | 2023-11-21 08:59 | CMPROGNOTE_ITS ---
Date of service: 11/21/23 Time of Service: 08:59 Care Management Progress Note Progress Note Text Progress Note Text: S/O: Ed was sitting up in bed watching TV when CM met with him. He smiled and maintained good eye contact with CM during the meeting. CM asked Ed if he still wanted to go to rehab. He has not received any bed offers and all but one of the facilities have declined his referral. He indicated that he was not sure. Susie has been visiting Ed and CM asked if he wanted to return home with Ed as his caregiver. Ed responded I don't know several times. CM raised the issue of Susie's drinking and asked if it was a problem and Ed agreed that it was. He seemed to be indicating that he is not sure Susie would be able to safely care for him or if he (Ed) even wants that option. Several times during the conversation, Ed became teary and held onto CM's hand. RONDA spoke with Roxann Ortega, [facility] foster care social worker about Ed today. She relayed that Mervat from [facility] quested that a meeting be scheduled for early next week to include RONDA Crowell Kelly, Susie and his and Alejandra. The purpose will be to discuss next steps and to evaluate whether or not it is even possible for Ed to return home with Susie as caregiver. The meeting has been tentatively scheduled for Saturday11/26/23 at 10:00 am at [facility]. A: Darwin is a 73 year old man admitted on 10/31/23 with BECKY. He transitioned to SB-1 on 11/11/23 then was readmitted in observation status on 11/14/23 following a rapid response. P: Ed's discharge plan is unclear at this time. He has agreed to transfer to a SNF however no bed offers have been received. CM will follow and continue to assess for discharge concerns.
--- NOTE | 2023-11-21 11:39 | PT.INNT ---
Date of service: 11/21/23 Time of Service: 11:21 PT Notes Visit Reasons: Episodes of Unresponsiveness,Suspected Seizure Patient refuses therapy, refuses to get up to chair. Puts blanket over his head to indicate that the conversation is over. Does agree to this clinician coming back after lunch. RONDA Gonzalez and FREYA Clark aware.
[2023-11-21 11:44] VITALS: BP 112/55; PULSE 63; RESP 18; TEMP 36.8; O2SAT 94
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
--- NOTE | 2023-11-21 15:19 | PTTR_ITS ---
Date of service: 11/21/23 Time of Service: 14:47 PT Notes Visit Reasons: Episodes of Unresponsiveness,Suspected Seizure Inpatient Physical Therapy Treatment Note [facility] Date: 11/21/23 PRECAUTIONS: Fall, standard, activity as tolerated. Contact precautions. Right hemiplegia / hemiparesis, expressive aphasia. SUBJECTIVE: Patient engages in conversation for about 2 minutes refusing to let this clinician help him with his remote, then suddenly lights up and exclaims Oh! It's you! and hands this clinician the remote. OBJECTIVE: Patient is supine in bed, agreeable to therapy.? PAIN: yes, c/o pain in right arm when touched - appears to be hypersensitive. VITALS: monitored by nursing staff.? Therapeutic Activities ([id number]): Direct one-on-one instruction in dynamic activities to improve functional performance. ? BED MOBILITY/TRANSFERS? Rolling L/R: mod assist of one Supine-sit: min assist of one to maneuver RLE out of bed, mod assist of one via hand hold for patient to pull himself up.?Sit-supine: min assist of one to maneuver RLE into bed, verbal and visual cues for patient to find handhold with which to boost himself up in bed. ?Sit-stand x6: Min to mod assist of 2 at gait belt, with this clinician supporting RUE? Stand-sit: CGA ? Bed-Chair: min assist of 2 for safety ? Chair-bed: min assist of 2 for safety. Provided skilled cues and instruction on performance and technique throughout. Neuromuscular Re-education (20728x6): Activities that facilitate re-education of movement balance, posture, coordination, and proprioception or kinesthetic sense, requiring skilled tactile and verbal cues ? Exercises/techniques: * Seated reaching exercises, outside base of support * Standing weight shift to left and right - Patient demonstrates ability (with verbal cues) to independently straighten RLE * Standing tolerance training up to 45 seconds ASSESSMENT:? Patient tolerates therapy well, does report significant fatigue at end of treatment session. Reports being agreeable to return to the gym and parallel bars on Saturday. PLAN: Continue global strengthening per plan of care until patient is medically cleared for discharge. TREATMENT CODE/TIME: 31 minutes beginning at 14:47
[2023-11-21 15:23] VITALS: BP 134/71; PULSE 73; RESP 16; TEMP 36; O2SAT 96
[2023-11-21 20:55] VITALS: BP 145/67; PULSE 72; RESP 16; TEMP 36.8; O2SAT 92
[2023-11-21] MEDS: Atorvastatin 40 MG TAB 80 MG PO (21:30)
[2023-11-21] MEDS: ARIPiprazole 5 MG TAB PO (21:31)
[2023-11-21] MEDS: Sennosides/Docusate Sodium TAB 1 TAB PO (21:31)
[2023-11-21] MEDS: Enoxaparin 40 MG/0.4 ML SYR SC (21:31)
[2023-11-21] MEDS: Insulin Glargine 300 UNITS/3 ML PEN 12 UNITS SC (22:42)
[2023-11-22 03:34] VITALS: BP 145/66; PULSE 68; RESP 16; TEMP 36.3; O2SAT 96
[2023-11-22] MEDS: Levothyroxine 112 MCG TAB PO (06:30)
[2023-11-22] MEDS: Levothyroxine 25 MCG TAB PO (06:31)
[2023-11-22 07:53] VITALS: BP 130/66; PULSE 72; RESP 17; TEMP 36.4; O2SAT 92
[2023-11-22] MEDS: Cholecalciferol (Vitamin D3) 1,000 UNIT TAB 1000 UNITS PO (08:30)
[2023-11-22] MEDS: Esomeprazole 40 MG CAPCR PO (08:30)
[2023-11-22] MEDS: Magnesium Oxide 400 MG TAB PO (08:30)
[2023-11-22] MEDS: Ticagrelor 90 MG TAB PO (08:31)
[2023-11-22] MEDS: Aspirin E.C. 81 MG TABEC PO (08:31)
[2023-11-22] MEDS: Gabapentin 800 MG TAB PO (08:31)
[2023-11-22] MEDS: amLODIPine 5 MG TAB PO (08:31)
[2023-11-22] MEDS: Carvedilol 12.5 MG TAB PO (08:31)
[2023-11-22] MEDS: Docusate Sodium 100 MG CAP 200 MG PO (08:37)
[2023-11-22] MEDS: Insulin Aspart 300 UNITS/3 ML PEN SC ×3 (08:38→12:01)
[2023-11-22] MEDS: Methadone Liquid 10 MG/ML 60 MG PO (08:42)
[2023-11-22] MEDS: clonazePAM 0.5 MG TAB PO (08:42)
[2023-11-22] MEDS: Polyethylene Glycol 3350 17 GM PACKET PO (08:44)
[2023-11-22] MEDS: Normal Saline Flush 10 ML SYR IVP (08:44)
--- NOTE | 2023-11-22 10:21 | PDOC.CMPRO ---
Date of service: 11/22/23 Time of Service: 10:21 Care Management Progress Note Progress Note Text Progress Note Text: S/O:Ed will transition to SB-1 status today to continue working with PT for strength, endurance and mobilization. A:Ed is a 73 year old man admitted on 10/31/23 with pneumonia. He transitioned to SB-1 on 11/11/23, then became acute again on 11/14/23 P: Ed's discharge plan is unclear at this time. He has agreed to transfer to a SNF however no bed offers have been received. CM will follow and continue to assess for discharge concerns.
--- NOTE | 2023-11-22 10:27 | CM.SBPSYCH ---
Date of service: 11/22/23 Time of Service: 10:27 SB [facility] Admission Admission Date: 10/31/23 Admission From:: Ed Diagnosis:: Pneumonia Swing Bed Admission Swing Bed Admit Date:: 11/22/23 Swing Bed Level of Care: Level 1/SNF Social Supports PREVIOUS FUNCTIONAL STATUS/SOCIAL/FAMILY SUPPORTS:: Ed lives in a mobile home on a large piece of property in [place], [place]. He has 2 children. His son Susie lives in a separate dwelling on his property and his daughter Alejandra lives close by with her and 4 children. He identified that they are generally supportive. Recently Susie had been staying with Ed and assisting with his care. Prior to Admission Living Arrangements/Environment Prior to Admission:: Ed has needed help with ADLs and general care. His son Stephen had been providing care but is no longer able to do so. APS is involved. Benefits Financial: [employer] Advance Directives for Healthcare Advance Directives for Healthcare: Advance Directives Advance Directive Agent: Alejandra Caballero [facility] Community Supports/Involvement: [facility] - rehabilitation case coordinator Roxann Ortega Present Functional Status Physical Abilities:: right sided adán-paresis Cognitive:: appears intact but has aphasia Communication:: Poor. Ed is aphasic and unable to speak clearly. He is also unable to write or accurately point. Sensory Systems: glasses, edentulous (teeth lost) Behavior:: appropriate. At times becomes teary and/or frustrated when unable to communicate effectively Medical History PAST MEDICAL HISTORY/PAST SURGICAL HISTORY:: All Active Problems (Updated 06/13/22 @ 13:17 by Nolan Cartagena MD) Osteomyelitis of great toe of left foot (Acute) Hyperglycemia (Acute) Hypothyroidism (Chronic) Osteomyelitis due to type 2 diabetes mellitus (Acute) left great toe Foot infection (Acute) Cellulitis (Acute) Osteomyelitis of toe of right foot (Acute) MRSA bacteremia (Acute) Discharge planning issues (Acute) DVT prophylaxis (Acute) Diabetic infection of right foot (Acute) Cellulitis of foot, right (Acute) Acute kidney injury (Acute) Osteomyelitis of second toe of left foot (Acute) 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) Osteomyelitis of second toe of right foot (Acute) Substance abuse in remission (Acute) Hypertension (Chronic) Diabetes (Chronic) Medical History (Updated 06/13/22 @ 13:17 by Nolan Cartagena MD) Anxiety History of amputation of great toe Toe osteomyelitis, right Right great toe Surgical History History of appendectomy History of inguinal hernia repair 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 APS involved. Discharge Plan:: Unclear at this time. Referrals sent to SNFs but no one accepting. Assessment: Ed is a 73 year old man who had a serious stroke in the spring which left him with aphasia and right sided adán-paresis. He was receiving care at home however his caregiver (son Susie) was not consistently providing care and a safe environment for Ed. He has been at [facility] for several weeks and is unable to return home and care for himself. He will remain in SB status until a safe discharge plan can be formulated. Engineering Surveyor: Lisa Sam Date Assessment was completed:: 11/22/23
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
--- NOTE | 2023-11-22 10:38 | CMSCP_ITS ---
Date of service: 11/22/23 Time of Service: 10:38 Swingbed Plan of Care Activites/Discharge Plan of care: SWING BED PROGRAM ACTIVITIES/DISCHARGE PLAN OF CARE ACTIVITIES PLAN Date:11/22/23 Identified Need:individualized activity plan Intervention/Plan:Ed is limited with activities as he is aphasic and has no use of his right upper extremity and little use of his right lower extremity. He does enjoy visiting with staff and family and would enjoy music therapy and/or pet therapy if available. Due to visual impairment (broken glasses) he is unable to see well enough to read. He does enjoy watching TV. Initials [facility] DISCHARGE PLAN Date:11/22/23 Identified Need:Safe Discharge plan Intervention/Plan:Ed's discharge plan is unclear at this time. He has no current caregiver and no accepting facility for short or nursing home care. Initials: [facility]
--- NOTE | 2023-11-28 12:03 | SPP_ITS ---
Date of service: 11/28/23 Time of Service: 11:35 Subjective Patient initially asleep, easily awoke to verbal prompt. Patient presenting as fatigued. COMMUNITY OUTREACH DIRECTOR reports increased agitation and tearfulness this date. Objective/Assessment/Plan Objective Treatment Techniques & Outcomes: Picture ID (Line drawings, field of 3) to verbally presented word = 0/3, to written and verbally presented word = 0/3 Verbalizing single words/short phrases with clinician models= 1/3 (able to repeat 'hello' with aproximation of 'how are you'). Following Single Step Verbal Commands = 0/3 Answering questions related to two personal artwork pictures in room (Which is the vito?) = 0/2 Patient/Caregiver/Staff Education: Consulted with COMMUNITY OUTREACH DIRECTOR re: results of session/patient emotional lability Assessment Ed was received asleep, though woke easily to clinician voice and nodded in agreement for therapy. He appeared with possibly increased confusion this date, with wandering gaze between CHIEF SCIENCE OFFICER, papers/materials presented, and around room during attempted exercises. Clinician attempted to utilize personal materials/artwork in room for therapy stimulus; patient with 0% accuracy though more engaged with these materials. During vocalization attempts, Ed became tearful. Clinician provided support, offered blanket/snack. Ed pulled a pillow up to cover his face and therapy concluded. FURTHER INPATIENT CHIEF SCIENCE OFFICER SERVICES: Patient to be followed on unit for trial treatment stimulability with communication and monitoring dysphagia needs - 2-4x weekly. DISCHARGE RECOMMENDATIONS: Recommend CHIEF SCIENCE OFFICER services at SNF vs Home Health CHIEF SCIENCE OFFICER at least for initial strategy training with staff for communication and dysphagia. DIET RECOMMENDATIONS: Patient is at high risk of aspiration and should receive close supervision assistance during PO intake, with strict precautions as outlined below. SOLIDS: 5-Minced & Moist Solids LIQUIDS: 0-Thin Liquids - via provale cup or ensure very small sip size and fully upright posture MEDICATIONS: Whole one at a time with sips liquid, or whole in applesauce/pudding Level of Assistance/Supervision: Close supervision/partial assist with trained staff/family for all PO intake Positioning and environment: PO intake only when awake/alert? Reduce auditory and/or visual distractions when eating [place] upright for all PO intake. Oral hygiene Before/after PO intake Using friction with toothbrush on all oral structures as tolerated Additional Safety Strategies: Small sips approx 10mL Small bites approx [id number] COMMUNICATION RECOMMENDATIONS: Comprehension: Reduce length of sentences and complexity of words Utilize demonstration and gesture as much as possible Provide visual aids/resources whenever possible Offer simplified written text whenever possible for patient to review Expression: Allow patient additional time to express self and/or multiple attempts to find word(s) For word finding difficulties during conversation: Provide patient with visual aids (smallest possible field of choice) and allow him to make a choice using pointing or repetition Provide assistance with reading text aloud, encouraging spoken repetition (especially of multisyllabic words) Encourage use of relevant gestures to enhance expression Plan Plan: Continue POC, 2-4x/weekly Coding CPT Codes SPEECH/HEARING THERAPY - 14910 ([id number]) Additional Codes Date of Service (00811) Date of service: 11/28/23
== END 2023-11-22 12:20 | disposition swing bed (61) | DRG 206 ==
PROVIDERS: Internal Medicine; Admitting Provider Internal Medicine; PCP Nurse Practitioner Family; Visit Provider Internal Medicine
DX: J70.8 Respiratory conditions due to other specified external agents (principal); I69.951 Hemiplegia and hemiparesis following unspecified cerebrovascular disease affecting right dominant side; T74.01XA Adult neglect or abandonment, confirmed, initial encounter; R47.01 Aphasia; N17.9 Acute kidney failure, unspecified; T40.2X5A Adverse effect of other opioids, initial encounter; Y92.239 Unspecified place in hospital as the place of occurrence of the external cause; R56.9 Unspecified convulsions; R06.89 Other abnormalities of breathing; K76.82 Hepatic encephalopathy; R45.1 Restlessness and agitation; E11.42 Type 2 diabetes mellitus with diabetic polyneuropathy; Z79.4 Long term (current) use of insulin; F19.11 Other psychoactive substance abuse, in remission; R13.10 Dysphagia, unspecified; I10 Essential (primary) hypertension; E78.5 Hyperlipidemia, unspecified; G89.29 Other chronic pain; M25.511 Pain in right shoulder; E11.65 Type 2 diabetes mellitus with hyperglycemia; E03.9 Hypothyroidism, unspecified; Z89.411 Acquired absence of right great toe; J45.909 Unspecified asthma, uncomplicated; I65.22 Occlusion and stenosis of left carotid artery; F41.1 Generalized anxiety disorder; R91.1 Solitary pulmonary nodule; F17.290 Nicotine dependence, other tobacco product, uncomplicated; K74.60 Unspecified cirrhosis of liver; I86.8 Varicose veins of other specified sites
CPT/HCPCS: 00123; 36415; 80048; 80053; 82805; 92526; 92610; 96105; 97112; 97162; 97166; 97530; 97535; J1650; 70450; 82140; 83735; 85025; 92507; 94760; 99222; 99232; 99233; 99239; J3490

== ENCOUNTER → 2023-11-21 08:00 | Outpatient (BNVA) | payer MEDICARE, MEDICAID, SELFPAY | PROVIDERS: PCP Nurse Practitioner Family; Referring Provider Nurse Practitioner Family; Visit Provider Psychiatry & Neurology Neurology ==

== ENCOUNTER 2023-11-22 11:10 | Inpatient (IN) | payer MEDICARE, MEDICAID, SELFPAY ==
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
--- NOTE | 2023-11-22 11:24 | CMSA_ITS ---
Date of service: 11/22/23 Time of Service: 11:24 SB Psychosocial/Act. [facility] Hospital Admission Admission Date: 10/31/23 Admission From:: ED Diagnosis:: Pneumonia Swing Bed Admission Swing Bed Admit Date:: 11/22/23 Swing Bed Level of Care: Level 1/SNF Social Supports PREVIOUS FUNCTIONAL STATUS/SOCIAL/FAMILY SUPPORTS:: Ed lives in a mobile home on a large piece of property in [place], [place]. He has 2 children. His son Susie lives in a separate dwelling on his property and his daughter Alejandra lives close by with her and 4 children. He identified that they are generally supportive. Recently Susie had been staying with Ed and assisting with his care. Prior to Admission Living Arrangements/Environment Prior to Admission:: Ed has needed help with ADLs and general care. His son Stephen had been providing care but is no longer able to do so. APS is involved. Benefits Advance Directives for Healthcare Advance Directives for Healthcare: Advance Directives Advance Directive Agent: Alejandra Caballero [facility] Supports/Involvement: case advocate through [facility] Roxann Ortega Present Functional Status Physical Abilities:: right sided adán-paresis Cognitive:: appears intact but has aphasia so verbal communication problematic Communication:: Poor. Ed is aphasic and unable to speak clearly. He is also unable to write or accurately point. Sensory Systems: glasses, edentulous (teeth lost) Behavior:: appropriate. At times becomes teary and/or frustrated when unable to communicate effectively Medical History PAST MEDICAL HISTORY/PAST SURGICAL HISTORY:: All Active Problems (Updated 06/13/22 @ 13:17 by Nolan Cartagena MD) Osteomyelitis of great toe of left foot (Acute) Hyperglycemia (Acute) Hypothyroidism (Chronic) Osteomyelitis due to type 2 diabetes mellitus (Acute) left great toe Foot infection (Acute) Cellulitis (Acute) Osteomyelitis of toe of right foot (Acute) MRSA bacteremia (Acute) Discharge planning issues (Acute) DVT prophylaxis (Acute) Diabetic infection of right foot (Acute) Cellulitis of foot, right (Acute) Acute kidney injury (Acute) Osteomyelitis of second toe of left foot (Acute) 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 APS involved. Discharge Plan:: Unclear at this time. Referrals sent to SNFs but no one accepting. Assessment: Ed is a 73 year old man who had a serious stroke in the spring which left him with aphasia and right sided adán-paresis. He was receiving care at home however his caregiver (son Susie) was not consistently providing care and a safe environment for Ed. He has been at [facility] for several weeks and is unable to return home and care for himself. He will remain in SB status until a safe discharge plan can be formulated. Occupational Therapy Co Director: Lisa Sam Date Assessment was completed:: 11/22/23
--- NOTE | 2023-11-22 11:32 | CMSCP_ITS ---
Swingbed Plan of Care Activites/Discharge Plan of care: SWING BED PROGRAM ACTIVITIES/DISCHARGE PLAN OF CARE ACTIVITIES PLAN Date:11/22/23 Identified Need:Activity Plan Intervention/Plan:Ed is limited with activities that he can participate in. He is aphasic, has right adán-paresis and visual challenges. He does enjoy visiting with staff and family. He watches TV and would enjoy pet therapy and music therapy if available Initials [facility] DISCHARGE PLAN Date:11/22/23 Identified Need:Safe discharge plan Intervention/Plan:Unclear at this time. Referrals have been sent to several SNFs but Ed has been denied for admission. His caregiver at home (son Susie) is not currently able to provide care. Other options are being pursued. Initials: [facility]
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
--- NOTE | 2023-11-22 13:46 | NUR.NOTE ---
unable to verified home meds
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
[2023-11-22 15:32] VITALS: BP 131/72; PULSE 68; RESP 16; TEMP 36.9; O2SAT 93
[2023-11-22] MEDS: Insulin Aspart 300 UNITS/3 ML PEN SC ×2 (17:26→17:27)
--- NOTE | 2023-11-22 17:38 | CHAPLAIN ---
I had a short visit with Ed this evening. He expressed that he's doing ok. He attempted to say more that I could not understand. There is a family meeting scheduled for 11/26 at 10 a.m. in regards to Ed's progress and discharge plans.
[2023-11-22] MEDS: Lactulose 20 GM/30 ML CUP PO (20:57)
[2023-11-22] MEDS: Magnesium Oxide 400 MG TAB PO (20:57)
[2023-11-22] MEDS: Gabapentin 800 MG TAB PO (20:58)
[2023-11-22] MEDS: Sennosides/Docusate Sodium TAB 1 TAB PO (20:58)
[2023-11-22] MEDS: Methadone Liquid 10 MG/ML 60 MG PO (20:58)
[2023-11-22] MEDS: Ticagrelor 90 MG TAB PO (20:58)
[2023-11-22] MEDS: clonazePAM 0.5 MG TAB PO (20:58)
[2023-11-22] MEDS: Insulin Glargine 300 UNITS/3 ML PEN 12 UNITS SC (21:03)
[2023-11-22] MEDS: Enoxaparin 40 MG/0.4 ML SYR SC (21:06)
[2023-11-22] MEDS: ARIPiprazole 5 MG TAB PO (21:07)
[2023-11-22] MEDS: Atorvastatin 40 MG TAB 80 MG PO (21:07)
[2023-11-23] MEDS: Levothyroxine 25 MCG TAB PO (06:28)
[2023-11-23] MEDS: Levothyroxine 112 MCG TAB PO (06:28)
[2023-11-23 07:50] VITALS: BP 131/59; PULSE 59; RESP 16; TEMP 35.7; O2SAT 97
[2023-11-23] MEDS: Methadone Liquid 10 MG/ML 60 MG PO ×2 (07:51→20:32)
[2023-11-23] MEDS: Cholecalciferol (Vitamin D3) 1,000 UNIT TAB 1000 UNITS PO (07:52)
[2023-11-23] MEDS: Magnesium Oxide 400 MG TAB PO ×2 (07:52→20:33)
[2023-11-23] MEDS: Gabapentin 800 MG TAB PO ×2 (07:52→20:33)
[2023-11-23] MEDS: Esomeprazole 40 MG CAPCR PO (07:52)
[2023-11-23] MEDS: Polyethylene Glycol 3350 17 GM PACKET PO (07:52)
[2023-11-23] MEDS: amLODIPine 5 MG TAB PO (07:53)
[2023-11-23] MEDS: Carvedilol 12.5 MG TAB PO (07:53)
[2023-11-23] MEDS: Docusate Sodium 100 MG CAP 200 MG PO (07:53)
[2023-11-23] MEDS: Ticagrelor 90 MG TAB PO ×2 (07:54→20:33)
[2023-11-23] MEDS: clonazePAM 0.5 MG TAB PO ×2 (07:54→20:33)
[2023-11-23] MEDS: Aspirin E.C. 81 MG TABEC PO (07:54)
[2023-11-23] MEDS: Insulin Aspart 300 UNITS/3 ML PEN SC ×4 (08:02→12:19)
[2023-11-23] MEDS: Lactulose 20 GM/30 ML CUP PO ×3 (09:03→20:32)
--- NOTE | 2023-11-23 09:22 | NUR.NOTE ---
Pt declined PT and lactulose. Discussed with pt his liver enzymes and the importance of liver function health, son Susie present and started asking questions about labs, claims he did not know any of this. He attempted to talk pt into taking the lactulose, pt did take 1/2 of it. Pt is aphasic, except for certain words: no and swears.Nursing Note:
--- NOTE | 2023-11-23 10:51 | PT.INNT ---
PT Notes Visit Reasons: Cerebrovascular accident Pt refused PT treatment today.
[2023-11-23 17:19] VITALS: BP 125/75; PULSE 120; RESP 20; TEMP 36.5; O2SAT 91
[2023-11-23] MEDS: HYDROcodone 10/Acetaminophen 325 TAB PO (17:27)
--- NOTE | 2023-11-23 17:39 | NUR.NOTE ---
Addendum entered by Mary Osorio RN 11/23/23 18:02: Correct time is 5:15pm Original Note: Approx 4:15pm pt received mouth cares and responded poorly, getting upset, possibly had a gag reflex. He acted like he was having nausea, so offered something for that, pt said he would like something, then refused it when it was brought to him. He denied any pain. Placed an ice pack behind his neck in case of nausea, which he approved of. Pt seemed off and appeared to have his right arm contract somewhat, reported to hospitalist orthodontic treatment coordinator, who came to see him promptly. Instructed to give him something for pain as he told provider that he was having pain. Gave hydrocodone per orders, asked pt if he was having a MILAN and said yes. Family in to see him as it is supper time, pt not waiting to eat, which is unusual for him. Will monitor for pain relief or any other s/s. Nursing Note:
[2023-11-23] MEDS: Enoxaparin 40 MG/0.4 ML SYR SC (20:32)
[2023-11-23] MEDS: ARIPiprazole 5 MG TAB PO (20:33)
[2023-11-23] MEDS: Atorvastatin 40 MG TAB 80 MG PO (20:33)
[2023-11-23] MEDS: Sennosides/Docusate Sodium TAB 1 TAB PO (20:33)
--- NOTE | 2023-11-23 21:04 | PDOC.EEG ---
Neurology EEG EEG: [facility] Department of Neurology INPATIENT EEG REPORT Date of Recordin11/21/23 Interpreting Physician: Dr. Mirela Rodriguez Reason for study: Mr. Caballero is a 73 year-old with previous left hemisphere stroke. He was admitted with pneumonia then found to have staring spells concerning for seizures. Current Medications: Current Medications Acetaminophen (Acetaminophen 325 Mg Tab) 650 mg PO Q4H PRN PRN Hydrocodone Bitart/Acetaminophen (Hydrocodone 10/Acetaminophen 325 Tab) 1 tab PO Q4H PRN PRN Last Admin: 11/23/23 17:27 Dose: 1 tab Al Hydrox/Mg Hydrox/Simethicone (Mylanta Suspension 30 Ml Cup) 30 ml PO Q2H PRN PRN Albuterol Sulfate (Albuterol 2.5 Mg/3 Ml Inh Soln Vial) 2.5 mg UPD Q2H PRN PRN Amlodipine Besylate (Amlodipine 5 Mg Tab) 5 mg PO DAILY [facility] Last Admin: 11/23/23 07:53 Dose: 5 mg Aripiprazole (Aripiprazole 5 Mg Tab) 5 mg PO HS [facility] Last Admin: 11/23/23 20:33 Dose: 5 mg Aspirin (Aspirin E.C. 81 Mg Tabec) 81 mg PO DAILY [facility] Last Admin: 11/23/23 07:54 Dose: 81 mg Atorvastatin Calcium (Atorvastatin 40 Mg Tab) 80 mg PO HS [facility] Last Admin: 11/23/23 20:33 Dose: 80 mg Bisacodyl (Bisacodyl 10 Mg Supp) 10 mg ID DAILY PRN PRN Carvedilol (Carvedilol 12.5 Mg Tab) 12.5 mg PO DAILY [facility] Last Admin: 11/23/23 07:53 Dose: 12.5 mg Cholecalciferol (Cholecalciferol (Vitamin D3) 1,000 Unit Tab) 1,000 units PO DAILY [facility] Last Admin: 11/23/23 07:52 Dose: 1,000 units Clonazepam (Clonazepam 0.5 Mg Tab) 0.5 mg PO BID [facility] Last Admin: 11/23/23 20:33 Dose: 0.5 mg Clotrimazole 40 gm/ Zinc Oxide 40 gm/ Vitamin A/Vitamin D 40 gm 0 gm TP TID [facility] Last Admin: 11/23/23 14:01 Dose: 1 applicatio Dextrose (Glucose Oral Gel 15 Gm/37.5 Gm Tube) 0 gm PO DIRECTED PRN Docusate Sodium (Docusate Sodium 100 Mg Cap) 100 mg PO TID PRN PRN Docusate Sodium (Docusate Sodium 100 Mg Cap) 200 mg PO DAILY [facility] Last Admin: 11/23/23 07:53 Dose: 200 mg Enoxaparin Sodium (Enoxaparin 40 Mg/0.4 Ml Syr) 40 mg SC Q24H [facility] Last Admin: 11/23/23 20:32 Dose: 40 mg Esomeprazole Magnesium (Esomeprazole 40 Mg Capcr) 40 mg PO DAILY@0730 [facility] Last Admin: 11/23/23 07:52 Dose: 40 mg Gabapentin (Gabapentin 800 Mg Tab) 800 mg PO BID [facility] Last Admin: 11/23/23 20:33 Dose: 800 mg Insulin Aspart (Insulin Aspart 300 Units/3 Ml Pen) 0 - 27 units SC 0800,1200,1700 [facility]; Protocol Last Admin: 11/23/23 18:04 Dose: Not Given Insulin Aspart (Insulin Aspart 300 Units/3 Ml Pen) 0 units SC 0800,1200,1700 [facility] Last Admin: 11/23/23 18:05 Dose: Not Given Insulin Glargine (Insulin Glargine 300 Units/3 Ml Pen) 12 units SC HS [facility] Last Admin: 11/22/23 21:03 Dose: 12 units Lactulose (Lactulose 20 Gm/30 Ml Cup) 20 gm PO TID [facility] Last Admin: 11/23/23 20:32 Dose: 20 gm Levothyroxine Sodium (Levothyroxine 112 Mcg Tab) 112 mcg PO 0600 [facility] Last Admin: 11/23/23 06:28 Dose: 112 mcg Levothyroxine Sodium (Levothyroxine 25 Mcg Tab) 25 mcg PO 0600 [facility] Last Admin: 11/23/23 06:28 Dose: 25 mcg Lidocaine/Diphenhydr/Alum/Mg/Simeth (Magic Mouthwash 119 Ml Btl) 5 ml MM Q6H PRN PRN Magnesium Hydroxide (Milk Of Magnesia 30 Ml Cup) 30 ml PO DAILY PRN PRN Magnesium Oxide (Magnesium Oxide 400 Mg Tab) 400 mg PO BID [facility] Last Admin: 11/23/23 20:33 Dose: 400 mg Methadone HCl (Methadone Liquid 10 Mg/Ml) 60 mg PO BID [facility] Last Admin: 12/30/23 20:32 Dose: 60 mg Polyethylene Glycol (Polyethylene Glycol 3350 17 Gm Packet) 17 gm PO DAILY [facility] Last Admin: 11/23/23 07:52 Dose: 17 gm Senna/Docusate Sodium (Sennosides/Docusate Sodium Tab) 1 tab PO QPM [facility] Last Admin: 11/23/23 20:33 Dose: 1 tab Sodium Chloride (Normal Saline Flush 10 Ml Syr) 0 ml IVP BID JODI Last Admin: 11/23/23 09:30 Dose: Not Given Sodium Chloride (Normal Saline 10 Ml Vial) 0 ml IJ DIRECTED PRN Ticagrelor (Ticagrelor 90 Mg Tab) 90 mg PO BID [facility] Last Admin: 11/23/23 20:33 Dose: 90 mg METHODS: A 21 channel digitized electroencephalogram was performed in the [facility] Med/Surg Floor or ICU. The 10/20 international system of electrode placement was used and bipolar and referential electrode montages were recorded. In addition to EEG the patient was monitored for EKG and lateral/vertical eye movements. Activation procedures of photic stimulation and hyperventilation were performed if applicable. Video was used during activation procedures and during events where applicable. The duration of the recording was 30 minutes. DESCRIPTION OF EEG: The study was limited by O2 artifact. The patient was noted to be awake, drowsy. and asleep during the recording. During maximal wakefulness a 7-Hz posterior background rhythm was present which was well-modulated, symmetrical, reactive to eye opening, and of moderate voltage. With eye opening the background activity changed to a low voltage mixture of alpha, beta, and occasional theta range frequencies. Faster frequencies were present in the bilateral anterior head regions. There was a normal anterior-posterior voltage gradient. During drowsiness, there was attenuation of the posterior dominant background rhythm and vertex waves. Stage II sleep was present with symmetrical sleep spindles, K-complexes, and vertex waves. There was generalized, polymorphic, moderate amplitude theta slowing throughout the recording, which was more prominent on the left with lower amplitude activity. Activating Procedures: Photic stimulation was performed which produced no symmetrical posterior driving response. Hyperventilation was not performed. EKG: EKG revealed normal sinus rhythm. INTERPRETATION: This EEG is abnormal due to: #1. Generalized arrhythmic theta slowing. #2. Focal left hemisphere theta slowing. PRIOR EEG: none CLINICAL CORRELATION: The focal left hemisphere findings are consistent with the patient's known history of left hemisphere stroke. The background slowing is suggestive of a mild diffuse cerebral encephalopathy of broad differential including toxic-metabolic etiology. No definite epileptiform activity was present. Seizure is a clinical diagnosis and a negative EEG does not rule out seizures/epilepsy. Mirela Rodriguez MD Date of service: 11/21/23 Coding CPT Codes EEG AWAKE AND ASLEEP - 11746 ([id number])
[2023-11-23] MEDS: Insulin Glargine 300 UNITS/3 ML PEN 12 UNITS SC (21:28)
[2023-11-24 07:36] VITALS: BP 119/66; PULSE 73; RESP 20; TEMP 36.6; O2SAT 95
[2023-11-24] MEDS: Methadone Liquid 10 MG/ML 60 MG PO ×2 (08:10→20:34)
[2023-11-24] MEDS: Lactulose 20 GM/30 ML CUP PO ×3 (08:33→20:34)
[2023-11-24] MEDS: Polyethylene Glycol 3350 17 GM PACKET PO (08:33)
[2023-11-24] MEDS: amLODIPine 5 MG TAB PO (08:34)
[2023-11-24] MEDS: Docusate Sodium 100 MG CAP 200 MG PO (08:34)
[2023-11-24] MEDS: clonazePAM 0.5 MG TAB PO ×2 (08:34→20:34)
[2023-11-24] MEDS: Insulin Aspart 300 UNITS/3 ML PEN SC ×6 (08:34→18:23)
[2023-11-24] MEDS: Gabapentin 800 MG TAB PO ×2 (08:34→20:34)
[2023-11-24] MEDS: Cholecalciferol (Vitamin D3) 1,000 UNIT TAB 1000 UNITS PO (08:34)
[2023-11-24] MEDS: Esomeprazole 40 MG CAPCR PO (08:34)
[2023-11-24] MEDS: Carvedilol 12.5 MG TAB PO (08:34)
[2023-11-24] MEDS: Aspirin E.C. 81 MG TABEC PO (08:34)
[2023-11-24] MEDS: Ticagrelor 90 MG TAB PO ×2 (08:34→20:35)
[2023-11-24] MEDS: Magnesium Oxide 400 MG TAB PO ×2 (08:34→20:34)
--- NOTE | 2023-11-24 10:55 | PT.INNT ---
PT Notes Visit Reasons: Cerebrovascular accident Pt refused PT.
[2023-11-24] MEDS: ARIPiprazole 5 MG TAB PO (20:34)
[2023-11-24] MEDS: Sennosides/Docusate Sodium TAB 1 TAB PO (20:34)
[2023-11-24] MEDS: Atorvastatin 40 MG TAB 80 MG PO (20:34)
[2023-11-24] MEDS: Enoxaparin 40 MG/0.4 ML SYR SC (20:35)
[2023-11-24] MEDS: Insulin Glargine 300 UNITS/3 ML PEN 12 UNITS SC (22:34)
[2023-11-25] MEDS: Levothyroxine 25 MCG TAB PO (05:52)
[2023-11-25] MEDS: Levothyroxine 112 MCG TAB PO (05:52)
[2023-11-25] MEDS: Lactulose 20 GM/30 ML CUP PO ×3 (08:19→19:39)
[2023-11-25] MEDS: Methadone Liquid 10 MG/ML 60 MG PO ×2 (08:19→19:39)
[2023-11-25] MEDS: Cholecalciferol (Vitamin D3) 1,000 UNIT TAB 1000 UNITS PO (08:19)
[2023-11-25] MEDS: Gabapentin 800 MG TAB PO ×2 (08:19→19:39)
[2023-11-25] MEDS: amLODIPine 5 MG TAB PO (08:19)
[2023-11-25] MEDS: Esomeprazole 40 MG CAPCR PO (08:19)
[2023-11-25] MEDS: Carvedilol 12.5 MG TAB PO (08:19)
[2023-11-25] MEDS: Polyethylene Glycol 3350 17 GM PACKET PO (08:19)
[2023-11-25] MEDS: Insulin Aspart 300 UNITS/3 ML PEN SC ×6 (08:20→17:23)
[2023-11-25] MEDS: Ticagrelor 90 MG TAB PO ×2 (08:20→19:39)
[2023-11-25] MEDS: clonazePAM 0.5 MG TAB PO ×2 (08:20→19:39)
[2023-11-25] MEDS: Docusate Sodium 100 MG CAP 200 MG PO (08:20)
[2023-11-25] MEDS: Magnesium Oxide 400 MG TAB PO ×2 (08:20→19:39)
[2023-11-25] MEDS: Aspirin E.C. 81 MG TABEC PO (08:20)
[2023-11-25 08:49] VITALS: BP 140/71; PULSE 71; RESP 24; TEMP 35.1; O2SAT 95
--- NOTE | 2023-11-25 10:03 | PT.INNT ---
PT Notes Visit Reasons: Cerebrovascular accident pt earlier working with son doing bed level exercises, pt initally pleasant, change his mood when offered to participate with therapy, placed blanket over his head to cover his face and refused further engagement with this therapist. pt son and grand son present during pt refusal and was not able to persuade father to participate.
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
[2023-11-25 18:03] VITALS: TEMP 36.1
[2023-11-25] MEDS: Sennosides/Docusate Sodium TAB 1 TAB PO (19:39)
[2023-11-25] MEDS: Atorvastatin 40 MG TAB 80 MG PO (21:45)
[2023-11-25] MEDS: ARIPiprazole 5 MG TAB PO (21:45)
[2023-11-25] MEDS: Enoxaparin 40 MG/0.4 ML SYR SC (21:45)
[2023-11-25] MEDS: Insulin Glargine 300 UNITS/3 ML PEN 12 UNITS SC (21:46)
[2023-11-26] MEDS: Levothyroxine 112 MCG TAB PO (06:05)
[2023-11-26] MEDS: Levothyroxine 25 MCG TAB PO (06:05)
[2023-11-26 07:13] VITALS: BP 136/57; PULSE 71; RESP 18; TEMP 35.8; O2SAT 96
[2023-11-26] MEDS: Gabapentin 800 MG TAB PO ×2 (07:25→20:51)
[2023-11-26] MEDS: Polyethylene Glycol 3350 17 GM PACKET PO (07:25)
[2023-11-26] MEDS: Lactulose 20 GM/30 ML CUP PO ×3 (07:25→20:33)
[2023-11-26] MEDS: Esomeprazole 40 MG CAPCR PO (07:25)
[2023-11-26] MEDS: amLODIPine 5 MG TAB PO (07:26)
[2023-11-26] MEDS: Carvedilol 12.5 MG TAB PO (07:26)
[2023-11-26] MEDS: Methadone Liquid 10 MG/ML 60 MG PO ×2 (07:27→20:51)
[2023-11-26] MEDS: Docusate Sodium 100 MG CAP 200 MG PO (07:27)
[2023-11-26] MEDS: Cholecalciferol (Vitamin D3) 1,000 UNIT TAB 1000 UNITS PO (07:27)
[2023-11-26] MEDS: clonazePAM 0.5 MG TAB PO ×2 (07:27→20:51)
[2023-11-26] MEDS: Ticagrelor 90 MG TAB PO ×2 (07:27→20:51)
[2023-11-26] MEDS: Magnesium Oxide 400 MG TAB PO ×2 (07:27→20:51)
[2023-11-26] MEDS: Aspirin E.C. 81 MG TABEC PO (07:27)
--- NOTE | 2023-11-26 10:28 | PT.INNT ---
PT Notes Visit Reasons: Cerebrovascular accident Pt approached multiple times during the course of the day, pt refused all attempts from this therapist to engage with therapy, pt's son in the room during all refusals, Nurse Emili informed of pt refusal for update with pt status.
--- NOTE | 2023-11-26 11:07 | W.NUTRFU ---
Date of service: 11/26/23 Time of Service: 11:07 Nutrition Note NOTE: received consult re: diabetes education Have met with pt a few times. His d/c plan includes placement in SNF due to his limited ability to care for himself, which includes menu/meal planning, preparing his own meals and insulin administration,. After assessment, diabetes education is not appropriate at this time for this patient as he will have this aspect of his care managed where he is placed after discharge. Will continue to provide regular meals according to his diet order with appropriate consistency and glucerna ONS BID. Time Spent in Nutritional Counseling and Treatment: 15 minutes
[2023-11-26] MEDS: Insulin Aspart 300 UNITS/3 ML PEN SC ×4 (12:32→17:44)
--- NOTE | 2023-11-26 13:34 | NT_ITS ---
PT Notes Visit Reasons: Cerebrovascular accident Date: 12/02/2023 PRECAUTIONS: Fall, standard, activity as tolerated. Contact precautions, H emiparesis right side. Expressive aphasia. SUBJECTIVE: pt in bed sleeping, easily awoke after therapist inquired if pt is interested in participating, pt in recliner when approached for therapy this afternoon, pt trying to communicate but is having a difficult time expressing his though verbally, pt getting very frustrated until Nurse Arcelia figured out that pt wants to go to the commode. OBJECTIVE: Supine semi chung's in bed, agreeable to therapy(am), pt in recliner in the afternoon requested to use commode . ? PAIN: Right shoulder pain on movement Therapeutic Activities 52302 x2: Direct one-on-one instruction in dynamic activities to improve functional performance. ? BED MOBILITY/TRANSFERS? Rolling L/R: mod assist of 1 Supine-sit: mod assist of 1 ? Sit-supine: mod assist of 1 ? Sit-stand: mod A Stand-sit: min A of 1 and verbal cues for safety ? Sit to stand from EOB: 4x min A for knee brace, pt able to tolerate 10secs each sit to stand? GAIT? Assistive Device: hemiwalker ? Weight bearing: Full Assist: mod A +1 (am), mod A +2 (pm) ? Distance:? 10' x1 pm, 10'x1 pm ? Deviation: Cueing for increased step length, slow pacing ? Provided skilled cues and instruction on performance and technique throughout. ASSESSMENT:? Patient tolerates therapy well, pt very engaged, reports fatigue after sit to stand activity. pt able to go up higher in bed with setup A for bed repositioning lowering of head and elevation leg part of bed for easier transition. pt again able to communicate using visual aid that he would like a drink of cranberry juice as well as turning the TV on post session. PLAN: Continue global strengthening per plan of care, until patient is medically cleared for discharge and obtains safe discharge plan. TREATMENT CODE/TIME: [id number] 15mins (9:30-9:50am) [id number] 20mins (1:10-1:30pm)
--- NOTE | 2023-11-26 14:43 | CMPROGNOTE_ITS ---
Date of service: 11/26/23 Time of Service: 14:44 Care Management Progress Note Progress Note Text Progress Note Text: S/O:Another family meeting was held today to address potential discharge plans for ED. Present were Ruby Kapadia from [facility], Roxann Ortega from [facility], Alejandra Caballero, Chaplain Katiana and RONDA Gonzalez. 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 Returning home with his son as complaint coordinator does not appear to be a viable option right now. Once again Alejandra was asked if she would be willing to have Ed stay at her home and she was unable to commit to that plan. It was suggested that some of the area SNFs might be more amenable to offering Ed a bed if they could receive a higher rate for his care, given his complex needs. RONDA [facility] [employer] (same organization) to see if it is something they would consider. Roxann will reach out to [facility] to ascertain next steps in securing the higher reimbursement rate. After about an hour, Alejandra left the meeting and Stephen tiara badillo son Garland joined. Susie asked for and received an update. He was informed that Ed had changed his Healthcare Agent form to identify Alejandra as his HCA instead of Susie. Susie stated that he was POA but no paaperwork is available. Susie stated that he would provide same. Everyone agreed that the priority right now is to find a safe discharge plan for Ed which may be SNF or another AFC home or hiring private caregivers. A: Ed is a 73 year old man admitted on 10/31/23 with pneumonia. P: Ed's discharge plan is unclear at this time. He has agreed to transfer to a SNF however no bed offers have been received. CM will follow and continue to assess for discharge concerns.
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
[2023-11-26] MEDS: ARIPiprazole 5 MG TAB PO (20:50)
[2023-11-26] MEDS: Atorvastatin 40 MG TAB 80 MG PO (20:50)
[2023-11-26] MEDS: Enoxaparin 40 MG/0.4 ML SYR SC (20:51)
[2023-11-26] MEDS: Sennosides/Docusate Sodium TAB 1 TAB PO (20:51)
[2023-11-26] MEDS: Insulin Glargine 300 UNITS/3 ML PEN 12 UNITS SC (21:08)
[2023-11-27] MEDS: Levothyroxine 112 MCG TAB PO (05:45)
[2023-11-27] MEDS: Levothyroxine 25 MCG TAB PO (05:45)
[2023-11-27 07:16] VITALS: BP 138/71; PULSE 66; RESP 18; TEMP 36; O2SAT 94
[2023-11-27] MEDS: Aspirin E.C. 81 MG TABEC PO (07:50)
[2023-11-27] MEDS: clonazePAM 0.5 MG TAB PO ×2 (07:50→21:51)
[2023-11-27] MEDS: Docusate Sodium 100 MG CAP 200 MG PO (07:50)
[2023-11-27] MEDS: Carvedilol 12.5 MG TAB PO (07:50)
[2023-11-27] MEDS: Gabapentin 800 MG TAB PO ×2 (07:50→21:50)
[2023-11-27] MEDS: Ticagrelor 90 MG TAB PO ×2 (07:50→21:50)
[2023-11-27] MEDS: amLODIPine 5 MG TAB PO (07:50)
[2023-11-27] MEDS: Esomeprazole 40 MG CAPCR PO (07:51)
[2023-11-27] MEDS: Methadone Liquid 10 MG/ML 60 MG PO ×2 (07:51→21:48)
[2023-11-27] MEDS: Insulin Aspart 300 UNITS/3 ML PEN SC ×4 (07:51→18:23)
[2023-11-27] MEDS: Cholecalciferol (Vitamin D3) 1,000 UNIT TAB 1000 UNITS PO (07:51)
[2023-11-27] MEDS: Magnesium Oxide 400 MG TAB PO ×2 (07:51→21:51)
[2023-11-27] MEDS: Lactulose 20 GM/30 ML CUP PO ×2 (07:51→21:51)
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
--- NOTE | 2023-11-27 13:04 | NUR.NOTE ---
1210: Sat down with pt and offered him his lunch. Pt proceeded to push the tray away. Pt questioned why and questioned if he wanted the meal. Pt pointed to his food and appeared to be expressing he didn't like the food and/or the consistency of the food. Pt was expressing anger/frustration during this encounter with a raised voice and aggressively pushing away his table. Different food was offered, pt declined. This RN informed pt that I would be given him 5 units of Aspart insulin as ordered for his premeal fingerstick of 335. Pt yelling, expressing no to receiving any insulin, physically shaking his left fist at this RN and then began physically attempting to exiting the bed while still notably angry. Brendan Costello called to the room. Pt grabbed Aury's upper arm in aggression and would not let go when asked to do so, [place] kept talking with the pt, the pt began crying, let go of Aury's arm and pulled his sheet over his head and layed quietly. Insulin 5 units sq given in right upper arm without incident. Bed alarm in place. Johanne, clinical coordinator and Lisa Agosto also update, Lisa plans on visiting patient.
--- NOTE | 2023-11-27 15:51 | PTTR_ITS ---
Date of service: 11/27/23 Time of Service: 15:08 PT Notes Visit Reasons: Cerebrovascular accident Inpatient Physical Therapy Treatment Note [facility] Date: 11/27/2023 PRECAUTIONS: fall, standard, activity as tolerated. Right hemiplegia / hemiparesis. SUBJECTIVE: Patient refuses therapy in the a.m. Afternoon patient agreeable, seeming excited to participate in therapy. OBJECTIVE: Supine in bed. Voices agreement to participate in therapy. ? PAIN: none reported. VITALS: monitored by nursing staff.? Therapeutic Activities (52960e4): Direct one-on-one instruction in dynamic activities to improve functional performance. ? BED MOBILITY/TRANSFERS? Rolling L/R: not assessed Supine-sit: min assist required to maneuver right leg out of bed, min assist behind shoulder to aid patient in coming to a sit.? Sit-supine: min assist to maneuver right leg into bed, verbal cues to scoot up.? Sit-stand: mod assist of one at gait belt with right knee blocked.? Stand-sit: min assist ? Bed-Chair: mod assist of one ? Chair-bed: mod assist of one Provided skilled cues and instruction on performance and technique throughout. Neuromuscular Re-education (11713q2): Activities that facilitate re-education of movement balance, posture, coordination, and proprioception or kinesthetic sense, requiring skilled tactile and verbal cues ? Exercises/techniques: * seated reaching activities * education about weightbearing through right UE/LE * attempts to get patient to stand using left hand over right hand on right leg - patient repeatedly expresses that this will be too hard * instruction on interlacing fingers of left and right hands and doing active assisted ROM, especially supine in bed. * standing weight shift training ASSESSMENT:? Patient tolerates therapy well, engages in conversation to the best of his ability, laughs easily, cheers for himself 3x stating Stronger! Stronger! PLAN: Continue global strenthening, neuro reeducation per plan of care until patient is medically cleared for discharge and obtains a safe discharge plan. TREATMENT CODE/TIME: 41 minutes beginning at 15:08
[2023-11-27] MEDS: ARIPiprazole 5 MG TAB PO (21:50)
[2023-11-27] MEDS: Sennosides/Docusate Sodium TAB 1 TAB PO (21:50)
[2023-11-27] MEDS: Atorvastatin 40 MG TAB 80 MG PO (21:51)
[2023-11-27] MEDS: Enoxaparin 40 MG/0.4 ML SYR SC (21:51)
[2023-11-27] MEDS: Insulin Glargine 300 UNITS/3 ML PEN 12 UNITS SC (21:52)
[2023-11-28] MEDS: Levothyroxine 112 MCG TAB PO (06:20)
[2023-11-28] MEDS: Levothyroxine 25 MCG TAB PO (06:20)
[2023-11-28] MEDS: Magnesium Oxide 400 MG TAB PO ×2 (09:18→21:39)
[2023-11-28] MEDS: Cholecalciferol (Vitamin D3) 1,000 UNIT TAB 1000 UNITS PO (09:18)
[2023-11-28] MEDS: Esomeprazole 40 MG CAPCR PO (09:18)
[2023-11-28] MEDS: clonazePAM 0.5 MG TAB PO ×2 (09:19→21:38)
[2023-11-28] MEDS: Docusate Sodium 100 MG CAP 200 MG PO (09:19)
[2023-11-28] MEDS: Polyethylene Glycol 3350 17 GM PACKET PO (09:19)
[2023-11-28] MEDS: Ticagrelor 90 MG TAB PO ×2 (09:19→21:39)
[2023-11-28] MEDS: Methadone Liquid 10 MG/ML 60 MG PO ×2 (09:19→21:39)
[2023-11-28] MEDS: Gabapentin 800 MG TAB PO ×2 (09:19→21:39)
[2023-11-28] MEDS: Aspirin E.C. 81 MG TABEC PO (09:19)
[2023-11-28] MEDS: Carvedilol 12.5 MG TAB PO (09:19)
[2023-11-28] MEDS: amLODIPine 5 MG TAB PO (09:19)
[2023-11-28] MEDS: Insulin Aspart 300 UNITS/3 ML PEN SC ×5 (09:21→17:36)
[2023-11-28] MEDS: Lactulose 20 GM/30 ML CUP PO ×2 (13:55→21:40)
[2023-11-28 14:24] VITALS: BP 104/61; PULSE 74; RESP 17; TEMP 36.2; O2SAT 93
--- NOTE | 2023-11-28 15:59 | PTTR_ITS ---
Date of service: 11/28/23 Time of Service: 15:06 PT Notes Visit Reasons: Cerebrovascular accident Inpatient Physical Therapy Treatment Note [facility] Date: 11/28/2023 PRECAUTIONS: Fall, standard, contact. Activity as tolerated. Hemiplegic / hemiparitic right side. SUBJECTIVE: Patient refuses therapy in the a.m., early afternoon. Attempts to refuse again until this clinician reminds him that he agreed yesterday to come down to the gym today. Patient responds Fine. Ok, let's go. OBJECTIVE: Supine in bed. Agrees the therapy after some prompting. ? PAIN: denies pain. VITALS: monitored by nursing staff Therapeutic Activities (78241s4): Direct one-on-one instruction in dynamic activities to improve functional performance. ? BED MOBILITY/TRANSFERS? Rolling L/R: min to mod assist with verbal cues for limb placement. Supine-sit: min assist of one to move RLE out of bed, min assist of one behind shoulders to help patient into sitting position.?Sit-supine: min assist of one to maneuver RLE into bed. ? Sit-stand: mod assist of one at gait belt, also blocking right knee? Stand-sit: min assist guarding right arm ? Bed-Chair: mod assist of one with gait belt and blocking right knee ? Chair-bed: mod assist of one with gait belt and blocking right knee. Provided skilled cues and instruction on performance and technique throughout. ? Therapeutic Exercises (44394b0): Direct one-on-one instruction in therapeutic exercises to develop strength, endurance, range of motion and flexibility. ? Exercises: * Standing tolerance training - patient stands 8 times in the parallel bars, ranging from 15-70 seconds * terminal knee extension practice x5 RLE Provided skilled instruction in proper exercise performance Provided skilled manual cues to facilitate proper muscle recruitment and/or form. Neuromuscular Re-education (35833t2): Activities that facilitate re-education of movement balance, posture, coordination, and proprioception or kinesthetic sense, requiring skilled tactile and verbal cues ? Exercises/techniques: * seated weight shift right/left * seated weight shift anterior/posterior * seated reaching outside base of support * standing weight shift * standing attempt to lift/move LLE, RLE ASSESSMENT:? Patient tolerates therapy well, no report of pain however patient does report fatigue at the end of treatment session. States that he will participate tomorrow in wheelchair mobility training. PLAN: Continue global strengthening per plan of care until patient obtains safe discharge plan. TREATMENT CODE/TIME: 44 minutes beginning at 15:06
[2023-11-28 21:29] VITALS: BP 156/67; PULSE 86; RESP 16; O2SAT 97
[2023-11-28] MEDS: Sennosides/Docusate Sodium TAB 1 TAB PO (21:38)
[2023-11-28] MEDS: ARIPiprazole 5 MG TAB PO (21:39)
[2023-11-28] MEDS: Atorvastatin 40 MG TAB 80 MG PO (21:39)
[2023-11-29] MEDS: Levothyroxine 25 MCG TAB PO (06:33)
[2023-11-29] MEDS: Levothyroxine 112 MCG TAB PO (06:33)
[2023-11-29] MEDS: Cholecalciferol (Vitamin D3) 1,000 UNIT TAB 1000 UNITS PO (09:16)
[2023-11-29] MEDS: Docusate Sodium 100 MG CAP 200 MG PO (09:16)
[2023-11-29] MEDS: Esomeprazole 40 MG CAPCR PO (09:16)
[2023-11-29] MEDS: Magnesium Oxide 400 MG TAB PO ×2 (09:16→21:21)
[2023-11-29] MEDS: Ticagrelor 90 MG TAB PO ×2 (09:16→21:21)
[2023-11-29] MEDS: Aspirin E.C. 81 MG TABEC PO (09:16)
[2023-11-29] MEDS: amLODIPine 5 MG TAB PO (09:16)
[2023-11-29] MEDS: Insulin Aspart 300 UNITS/3 ML PEN SC ×6 (09:17→16:55)
[2023-11-29] MEDS: Carvedilol 12.5 MG TAB PO (09:17)
[2023-11-29] MEDS: clonazePAM 0.5 MG TAB PO ×2 (09:17→21:22)
[2023-11-29] MEDS: Methadone Liquid 10 MG/ML 60 MG PO ×2 (09:17→21:20)
[2023-11-29] MEDS: Gabapentin 800 MG TAB PO ×2 (09:17→21:21)
--- NOTE | 2023-11-29 09:25 | PDOC.CMPRO ---
Date of service: 11/29/23 Time of Service: 09:25 Care Management Progress Note Progress Note Text Progress Note Text: S/O:Ed remains in SB-1 status. He has been working with PT inconsistently, however when he does, he has shown real effort. Ed tends to participate more in the afternoon with PT. His son Susie comes most mornings and does ROM exercises with ED. It is possible that these tire Ed out to the point that he does not feel up to working with PT a short time after. CM discussed this with Susie today and he has agreed to come later in the day to do the exercies. Another meeting to discuss discharge plans for Ed will likely take place next week with Yola Mota,[facility] Complex Care Team, Roxann Ortega from [facility] and RONDA Gonzalez from [facility]. A: Ed is a 73 year old man admitted on 10/31/23 with pneumonia. He transitioned to SB-1 on 11/11/23, then became acute again on 11/14/23. He again entered SB-1 status on 11/22/23 P:Ed's discharge plan is unclear at this time. He has agreed to transfer to a SNF however no bed offers have been received. CM will follow and continue to assess for discharge concerns.
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
[2023-11-29] MEDS: LORazepam 0.5 MG TAB 0.25 MG PO (11:11)
[2023-11-29 12:17] LABS: Abs Immature Grans 0.02 10^3/uL (0.0-0.06); Absolute Basophil Count 0.06 10^3/uL (0.0-0.2); Absolute Eosinophil Count 0.45 10^3/uL (0.0-0.7); Absolute Lymphocyte Count 1.14 10^3/uL (1.2-3.4); Absolute Neutrophil Count 4.79 10^3/uL (1.2-6.7); Basophils % 0.8; Eosinophils % 6.3; HCT 30.2 % (40.0-50.0); HGB 9.7 g/dL (13.5-17.5); Immature Grans % 0.3; Lymphocytes % 15.9; MCH 29.7 pg (27.0-33.0); MCHC 32.1 % (32.0-36.0); MCV 92 fL (80-95); MPV 10.1 fL (8.0-11.0); Monocytes % 9.8; Neutrophils % 66.9; Platelet Count 281 10^3/uL (130-400); RBC 3.27 10^6/uL (4.36-5.78); RDW 14.9 % (11.8-14.1); RDW-SD 50.9 fL; WBC 7.16 10^3/uL (4.4-10.8)
[2023-11-29 12:27] LABS: Anion Gap 4.2 mmol/L (3-11); BUN 29 mg/dL (7-18); CO2 28.8 mmol/L (21.0-32.0); Calcium 8.6 mg/dL (8.5-10.1); Chloride 107 mmol/L (98-107); Estimated GFR 80.47 (mL/min/1.73m2); Glucose 203 mg/dL (74-106); Potassium 3.7 mmol/L (3.5-5.1); Sodium 140 mmol/L (136-145)
[2023-11-29 15:36] VITALS: BP 128/67; PULSE 63; RESP 18; TEMP 36.9; O2SAT 93
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
[2023-11-29] MEDS: Sennosides/Docusate Sodium TAB 1 TAB PO (21:21)
[2023-11-29] MEDS: Atorvastatin 40 MG TAB 80 MG PO (21:22)
[2023-11-29] MEDS: ARIPiprazole 5 MG TAB PO (21:22)
[2023-11-29] MEDS: Insulin Glargine 300 UNITS/3 ML PEN 12 UNITS SC (22:02)
[2023-11-30] MEDS: Levothyroxine 25 MCG TAB PO (06:28)
[2023-11-30] MEDS: Levothyroxine 112 MCG TAB PO (06:28)
[2023-11-30 06:46] LABS: Abs Immature Grans 0.04 10^3/uL (0.0-0.06); Absolute Basophil Count 0.07 10^3/uL (0.0-0.2); Absolute Lymphocyte Count 1.35 10^3/uL (1.2-3.4); Absolute Monocyte Count 0.81 10^3/uL (0.1-0.8); Absolute Neutrophil Count 5.06 10^3/uL (1.2-6.7); Basophils % 0.9; Eosinophils % 6.4; HCT 32.1 % (40.0-50.0); HGB 10.4 g/dL (13.5-17.5); Immature Grans % 0.5; Lymphocytes % 17.2; MCHC 32.4 % (32.0-36.0); MCV 93 fL (80-95); MPV 9.9 fL (8.0-11.0); Monocytes % 10.3; Neutrophils % 64.7; Platelet Count 290 10^3/uL (130-400); RBC 3.47 10^6/uL (4.36-5.78); RDW-SD 51.1 fL; WBC 7.83 10^3/uL (4.4-10.8)
[2023-11-30 07:18] LABS: Anion Gap 7.6 mmol/L (3-11); BUN 31 mg/dL (7-18); CO2 27.4 mmol/L (21.0-32.0); Calcium 8.8 mg/dL (8.5-10.1); Chloride 108 mmol/L (98-107); Estimated GFR 80.47 (mL/min/1.73m2); Glucose 141 mg/dL (74-106); Potassium 3.9 mmol/L (3.5-5.1); Sodium 143 mmol/L (136-145)
[2023-11-30 08:17] VITALS: BP 113/57; PULSE 70; RESP 17; TEMP 35.9; O2SAT 98
[2023-11-30] MEDS: Cholecalciferol (Vitamin D3) 1,000 UNIT TAB 1000 UNITS PO (08:22)
[2023-11-30] MEDS: Ticagrelor 90 MG TAB PO ×2 (08:22→20:38)
[2023-11-30] MEDS: Docusate Sodium 100 MG CAP 200 MG PO (08:22)
[2023-11-30] MEDS: Lactulose 20 GM/30 ML CUP PO (08:22)
[2023-11-30] MEDS: Aspirin E.C. 81 MG TABEC PO (08:22)
[2023-11-30] MEDS: amLODIPine 5 MG TAB PO (08:23)
[2023-11-30] MEDS: Carvedilol 12.5 MG TAB PO (08:23)
[2023-11-30] MEDS: Esomeprazole 40 MG CAPCR PO (08:23)
[2023-11-30] MEDS: Gabapentin 800 MG TAB PO ×2 (08:23→20:38)
[2023-11-30] MEDS: Magnesium Oxide 400 MG TAB PO ×2 (08:23→20:38)
[2023-11-30] MEDS: clonazePAM 0.5 MG TAB PO ×2 (08:23→20:38)
[2023-11-30] MEDS: Insulin Aspart 300 UNITS/3 ML PEN SC ×5 (08:24→17:18)
[2023-11-30] MEDS: Methadone Liquid 10 MG/ML 60 MG PO ×2 (08:24→20:38)
[2023-11-30] MEDS: Polyethylene Glycol 3350 17 GM PACKET PO (08:25)
--- NOTE | 2023-11-30 10:45 | PT.INNT ---
Date of service: 11/30/23 Time of Service: 10:37 PT Notes Visit Reasons: Cerebrovascular accident Patient appears to be in a depressed mood. Refuses therapy, declines to have this clinician check back later in the day. Agreeable to have this clinician check back tomorrow.
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
[2023-11-30] MEDS: Sennosides/Docusate Sodium TAB 1 TAB PO (20:38)
[2023-11-30] MEDS: ARIPiprazole 5 MG TAB PO (21:36)
[2023-11-30] MEDS: Atorvastatin 40 MG TAB 80 MG PO (21:37)
[2023-11-30] MEDS: Insulin Glargine 300 UNITS/3 ML PEN 12 UNITS SC (21:38)
[2023-12-01 08:08] VITALS: BP 136/57; PULSE 65; RESP 18; TEMP 36.1; O2SAT 97
[2023-12-01] MEDS: Methadone Liquid 10 MG/ML 60 MG PO ×2 (08:16→20:54)
[2023-12-01] MEDS: Carvedilol 12.5 MG TAB PO (08:17)
[2023-12-01] MEDS: Gabapentin 800 MG TAB PO ×2 (08:17→20:56)
[2023-12-01] MEDS: Ticagrelor 90 MG TAB PO ×2 (08:17→20:54)
[2023-12-01] MEDS: Docusate Sodium 100 MG CAP 200 MG PO (08:18)
[2023-12-01] MEDS: Magnesium Oxide 400 MG TAB PO ×2 (08:18→20:56)
[2023-12-01] MEDS: clonazePAM 0.5 MG TAB PO ×2 (08:18→20:55)
[2023-12-01] MEDS: Esomeprazole 40 MG CAPCR PO (08:18)
[2023-12-01] MEDS: Cholecalciferol (Vitamin D3) 1,000 UNIT TAB 1000 UNITS PO (08:18)
[2023-12-01] MEDS: Aspirin E.C. 81 MG TABEC PO (08:18)
[2023-12-01] MEDS: Polyethylene Glycol 3350 17 GM PACKET PO (08:18)
[2023-12-01] MEDS: amLODIPine 5 MG TAB PO (08:18)
[2023-12-01] MEDS: Insulin Aspart 300 UNITS/3 ML PEN SC ×6 (08:19→17:09)
[2023-12-01] MEDS: Acetaminophen 325 MG TAB 650 MG PO (09:55)
--- NOTE | 2023-12-01 13:29 | PT.INTREAT ---
Date of service: 12/01/23 Time of Service: 11:29 PT Notes Visit Reasons: Cerebrovascular accident Inpatient Physical Therapy Treatment Note [facility] Date: 12/01/23 PRECAUTIONS: Fall, standard, activity as tolerated. Contact precautions. Hemiplegic / hemiparitic right side. Global aphasia. SUBJECTIVE: Patient spots this clinician in the [place] and shouts Hey! as though pleased to see this clinician. When offered to sit in the chair for lunch, he appears to consider for a few moments before agreeing. OBJECTIVE: Supine in bed. Riojas in place. Agreeable to therapy. ? PAIN: None initially reported, however at least 2x during session patient bites the index finger of left hand and grimaces, then pats or rubs right hand with left. VITALS: monitored by nursing staff. Therapeutic Activities (59708a9): Direct one-on-one instruction in dynamic activities to improve functional performance. ? BED MOBILITY/TRANSFERS? Rolling L/R: min assist to the left. Rolling right not assessed. Supine-sit: min assist behind knee of right leg and behind right hip to scoot right hip forward. ? Sit-supine: min assist to boost right leg over side of bed. ? Sit-stand x5: mod assist at gait belt from low bed, with patient's hand on adán walker and this clinician blocking patient's knee. Standing from chair, patient pushes up from arm rest, min assist to CGA at gait belt and blocking right knee.? Stand-sit: CGA at gait belt, with this clinician also guarding/supporting right arm and blocking right knee ? Bed-Chair: Stand pivot transfer to the left, min assist at gait belt, supporting right arm and blocking right knee ? Chair-bed: Pivot transfer to the left, without a full stand. Min assist at gait belt and blocking right knee. Standing tolerance training today with emphasis on right terminal knee extensions. Patient performs 7 terminal knee extensions over 4 stands. Each time, upon sitting, patient comments Whoo! Is hard! Patient also joins this clinician in applauding his efforts. Provided skilled cues and instruction on performance and technique throughout. ASSESSMENT:? Patient tolerates therapy well, appears to understand the purpose of the terminal knee extensions. This clinician also made an effort to prepare patient that he will work with CRAFT COORDINATOR Lawson Brisa tomorrow, as patient has some caregiver anxiety and does not like to work with new faces. Patient verbalized agreement that he would work with Lawson tomorrow. PLAN: Continue global strengthening, functional activity tolerance training and neuro reeducation training to patient tolerance per plan of care. Patient would benefit from skilled rehab stay to maximize functional outcomes. TREATMENT CODE/TIME: 33 minutes beginning at 11:29 and 16 minutes beginning at 12:51 for a total of 49 minutes today.
[2023-12-01] MEDS: ARIPiprazole 5 MG TAB PO (20:54)
[2023-12-01] MEDS: Atorvastatin 40 MG TAB 80 MG PO (20:55)
[2023-12-01] MEDS: Sennosides/Docusate Sodium TAB 1 TAB PO (20:56)
[2023-12-01] MEDS: Insulin Glargine 300 UNITS/3 ML PEN 12 UNITS SC (21:00)
[2023-12-02 07:57] VITALS: BP 135/62; PULSE 70; RESP 18; TEMP 35.7; O2SAT 96
[2023-12-02] MEDS: Methadone Liquid 10 MG/ML 60 MG PO ×2 (08:32→20:04)
[2023-12-02] MEDS: Acetaminophen 325 MG TAB 650 MG PO (08:33)
[2023-12-02] MEDS: Aspirin E.C. 81 MG TABEC PO (08:33)
[2023-12-02] MEDS: Ticagrelor 90 MG TAB PO ×2 (08:33→20:03)
[2023-12-02] MEDS: clonazePAM 0.5 MG TAB PO ×2 (08:33→20:02)
[2023-12-02] MEDS: Esomeprazole 40 MG CAPCR PO (08:33)
[2023-12-02] MEDS: Docusate Sodium 100 MG CAP 200 MG PO (08:34)
[2023-12-02] MEDS: Carvedilol 12.5 MG TAB PO (08:34)
[2023-12-02] MEDS: Cholecalciferol (Vitamin D3) 1,000 UNIT TAB 1000 UNITS PO (08:34)
[2023-12-02] MEDS: Insulin Aspart 300 UNITS/3 ML PEN SC ×5 (08:34→17:05)
[2023-12-02] MEDS: Gabapentin 800 MG TAB PO ×2 (08:34→20:03)
[2023-12-02] MEDS: Magnesium Oxide 400 MG TAB PO ×2 (08:34→20:02)
[2023-12-02] MEDS: Polyethylene Glycol 3350 17 GM PACKET PO (08:54)
--- NOTE | 2023-12-02 09:30 | PTTR_ITS ---
PT Notes Visit Reasons: Cerebrovascular accident Date: 12/02/23 PRECAUTIONS: Fall, standard, activity as tolerated. Contact precautions. Hem iplegic / hemiparitic right side. Global aphasia. SUBJECTIVE: Pt in a very cheerful mood today, was smiling when approached for theray and was agreeable to participating with session. pt able to participate again in the afternoon for return transfer going from recliner to bed. OBJECTIVE: Supine in bed. Riojas in place. Agreeable to therapy. ? PAIN: None initially, pain on right shoulder on certain movements as well as when shoulder is flexed too high while in recliner. VITALS: monitored by nursing staff. Therapeutic Activities (25871v5 am) (55067y5 pm): Direct one-on-one instruction in dynamic activities to improve functional performance. ? BED MOBILITY/TRANSFERS? Rolling L/R: min assist to the left. Rolling right mod A. Supine-sit: min assist ? Sit-supine: min assist to boost right leg over side of bed. ? Sit-stand x5: mod assist at gait belt from low bed, with patient's hand on adán walker and this clinician blocking patient's knee. Standing from chair, patient pushes up from arm rest, min assist to CGA at gait belt and blocking right knee.? Stand-sit: CGA at gait belt, with this clinician also guarding/supporting right arm and blocking right knee ? Bed-Chair: Stand pivot transfer to the left, min assist at gait belt, supporting right arm and blocking right knee ? Chair-bed: Pivot transfer to the left, without a full stand. Min assist at gait belt and blocking right knee. Gait: AD: hemiwalker Level of Assist: Mod A/Max A (am), Max A +2 (pm) Distance: 10steps from EOB to recliner vice versa Gait deviation: Hemiplegic Provided skilled cues and instruction on performance and technique throughout. ASSESSMENT:? Pt able to participate with gait training with assistance with moving RLE forward to take the step, pt required increased level of assistance ( with Nurse Gonzalez) on the transition going back since pt got tired due to request to use commode from recliner prior to transferring going back to his bed. PLAN: Continue global strengthening, functional activity tolerance training and neuro reeducation training to patient tolerance per plan of care. Patient would benefit from skilled rehab stay to maximize functional outcomes. TREATMENT CODE/TIME: 53141v2 15mins (9:30-9:50am), [id number] 20mins (1:10-1:30pm)
[2023-12-02] MEDS: Sennosides/Docusate Sodium TAB 1 TAB PO (20:03)
[2023-12-02] MEDS: Insulin Glargine 300 UNITS/3 ML PEN 12 UNITS SC (21:03)
[2023-12-02] MEDS: Atorvastatin 40 MG TAB 80 MG PO (21:03)
[2023-12-02] MEDS: ARIPiprazole 5 MG TAB PO (21:03)
[2023-12-03] MEDS: Levothyroxine 25 MCG TAB PO (06:01)
[2023-12-03] MEDS: Levothyroxine 112 MCG TAB PO (06:01)
[2023-12-03 08:08] VITALS: BP 150/55; PULSE 77; RESP 17; TEMP 36.6; O2SAT 94
[2023-12-03] MEDS: Insulin Aspart 300 UNITS/3 ML PEN SC ×6 (08:45→17:28)
--- NOTE | 2023-12-03 11:33 | PTTR_ITS ---
Date of service: 12/03/23 Time of Service: 11:10 PT Notes Visit Reasons: Cerebrovascular accident Inpatient Physical Therapy Treatment Note [facility] Date: 12/03/23 PRECAUTIONS: Fall, standard, contact, activity as tolerated. Hemiplegia/hemiparesis right side. SUBJECTIVE: Patient appears to be sleeping when this therapist enters, wakes easily. Appears happy to see this therapist. Considers for a moment, then agrees to get up to bedside chair for lunch. AFTERNOON: Patient in bedside chair, agreeable to come to rehab gym to work in parallel bars. OBJECTIVE: Supine in bed. Michel in place. Agreeable to therapy. AFTERNOON: Seated in bedside chair, michel in place, agreeable to therapy. ? PAIN: none reported, none observed. VITALS: monitored by nursing staff Therapeutic Activities (64778p3): Direct one-on-one instruction in dynamic activities to improve functional performance. ? BED MOBILITY/TRANSFERS? Rolling L/R: not observed Supine-sit: minimal assist behing right knee to move right hip forward to EOB. Patient manipulates right leg over EOB. Minimal assist behind shoulders to steady patient while he gains his balance. ? Sit-supine: not assessed? Sit-stand: min assist at gait belt when pushing up from bed. This therapist blocks patient's right knee, supports right arm. Mod to max assist when patient tries to stand from bed while pushing up on either armrest of bedside chair or adán walker. Verbal and visual cues needed for patient to push up from bed. ?Stand-sit: verbal cues, CGA. ? Bed-Chair: Patient performs stand pivot transfer with CGA at gait belt, with this therapist blocking patient's right knee, supporting right arm, and prov iding verbal cues and encouragement for patient to step / hop forward with right leg. Patient is able to hop x2 with left leg to line up with the chair today, CGA. ?Chair- bed: min assist as patient is well fatigued after 2 therapy sessions. Patient performs pivot transfer without standing fully upright. Provided skilled cues and instruction on performance and technique throughout. Neuromuscular Re-education (64060s2): Activities that facilitate re-education of movement balance, posture, coordination, and proprioception or kinesthetic sense, requiring skilled tactile and verbal cues ? Exercises/techniques: * seated reaching activities (dynamic sitting balance) * unsupported sitting x2 minutes (static sitting) patient experiences LOB x2, from which patient is able to independently recover * standing weight shift * standing terminal knee extensions RLE * standing tolerance training ASSESSMENT:? Patient responds very well to having an audience, being cheered on. Patient ends therapy in a good mood, although reports significant fatigue. Patient more verbal today than he has been in recent sessions, with 3-4x as much accurate spontaneous speech. PLAN: Continue global strengthening, neuro ekaterina, balance training, transfer training per plan of care until patient obtains safe discharge plan. Patient would benefit from a [facility] stay to continue improving functional performance. TREATMENT CODE/TIME: 21 minutes at 11:10 and 30 minutes at 13:15 for a total of 51 minutes today.
[2023-12-03] MEDS: Methadone Liquid 10 MG/ML 60 MG PO ×2 (12:07→21:04)
[2023-12-03] MEDS: Lactulose 20 GM/30 ML CUP PO (14:38)
--- NOTE | 2023-12-03 17:45 | SPP_ITS ---
Date of service: 12/03/23 Time of Service: 14:50 Subjective Patient seen at bedside, awake, agreeable to participate in treatment session. Patient recently completing PT in the gym and appearing fatigued. Nursing present briefly Objective/Assessment/Plan Assessment Objective/Assessment: Patient seen for communication tx this date. Given lack of stimulability noted with comprehension tasks, naming, etc, trial treatment this date focused on single word repetitions with supports as below: Provided visual and verbal supports (pointing to item in room, repeating stimuli with clinician's mouth visible to patient), patient was able to produce accurate vs closely approximated single words with simultaneous model fading to direct model support: Single syllables: +4/5 with simultaneous model fading to direct model (meat, shirt, pants, phone, hand), patient repeating each word correctly after direct model at least 5x before proceeding to next target 2-syllables: 0/2 (faucet, sweatshirt) even with max supports, vague approximations appreciated intermittently Treatment activities in upcoming sessions should focus on repetition of functional single syllable words with fading supports (e.g., pain, food,) etc. Patient tolerates primarily short sessions for communication goals, may benefit from multiple short sessions daily when schedule allows. FURTHER INPATIENT ELECTRICAL HIGH TENSION TESTER SERVICES: Patient to be followed on unit for trial treatment stimulability with communication and monitoring dysphagia needs - 2-4x weekly. DISCHARGE RECOMMENDATIONS: Recommend ELECTRICAL HIGH TENSION TESTER services at SNF vs Home Health ELECTRICAL HIGH TENSION TESTER at least for initial strategy training with staff for communication and dysphagia. DIET RECOMMENDATIONS: Patient is at high risk of aspiration and should receive close supervision assistance during PO intake, with strict precautions as outlined below. SOLIDS: 5-Minced & Moist Solids LIQUIDS: 0-Thin Liquids - via provale cup or ensure very small sip size and fully upright posture MEDICATIONS: Whole one at a time with sips liquid, or whole in applesauce/pudding Level of Assistance/Supervision: Close supervision/partial assist with trained staff/family for all PO intake Positioning and environment: PO intake only when awake/alert? Reduce auditory and/or visual distractions when eating [place] upright for all PO intake. Oral hygiene Before/after PO intake Using friction with toothbrush on all oral structures as tolerated Additional Safety Strategies: Small sips approx 10mL Small bites approx [id number] COMMUNICATION RECOMMENDATIONS: Comprehension: Reduce length of sentences and complexity of words Utilize demonstration and gesture as much as possible Provide visual aids/resources whenever possible Offer simplified written text whenever possible for patient to review Expression: Allow patient additional time to express self and/or multiple attempts to find word(s) For word finding difficulties during conversation: Provide patient with visual aids (smallest possible field of choice) and allow him to make a choice using pointing or repetition Provide assistance with reading text aloud, encouraging spoken repetition (especially of multisyllabic words) Encourage use of relevant gestures to enhance expression Goals: Detention Goals: Patient will remain free from aspiration-related illness, malnutrition, and dehydration. Patient/caregivers will verbalize comprehension of education provided re: dx, strategies to maximize functioning, and role of ST. Short Term Goals: Patient will participate in ongoing diagnostic treatment addressing communication. Patient will tolerate Minced/Moist Diet and Thin liquids without overt s/s aspiration across 2/2 visits. Patient/caregivers will be independent with safe swallow/risk management strategies. NEW GOAL: Patient will repeat 10 trained functional single 1-syllable words given direct model from clinician with at least 80% accuracy x1-2 sessions. Recommendations Total Time Spent: 15 minutes (14:50-15:05) Coding Additional Codes Date of Service (54066) Date of service: 12/03/23
[2023-12-03] MEDS: Gabapentin 800 MG TAB PO (21:04)
[2023-12-03] MEDS: Atorvastatin 40 MG TAB 80 MG PO (21:04)
[2023-12-03] MEDS: Ticagrelor 90 MG TAB PO (21:04)
[2023-12-03] MEDS: ARIPiprazole 5 MG TAB PO (21:04)
[2023-12-03] MEDS: clonazePAM 0.5 MG TAB PO (21:04)
[2023-12-03] MEDS: Magnesium Oxide 400 MG TAB PO (21:04)
[2023-12-03] MEDS: Insulin Glargine 300 UNITS/3 ML PEN 12 UNITS SC (21:06)
[2023-12-04] MEDS: Levothyroxine 25 MCG TAB PO (06:23)
[2023-12-04] MEDS: Levothyroxine 112 MCG TAB PO (06:23)
[2023-12-04 07:50] VITALS: BP 129/63; PULSE 60; RESP 12; TEMP 35.7; O2SAT 96
[2023-12-04] MEDS: Lactulose 20 GM/30 ML CUP PO ×2 (09:01→15:28)
[2023-12-04] MEDS: Esomeprazole 40 MG CAPCR PO (09:02)
[2023-12-04] MEDS: Carvedilol 12.5 MG TAB PO (09:02)
[2023-12-04] MEDS: Magnesium Oxide 400 MG TAB PO ×2 (09:02→20:59)
[2023-12-04] MEDS: Cholecalciferol (Vitamin D3) 1,000 UNIT TAB 1000 UNITS PO (09:02)
[2023-12-04] MEDS: Docusate Sodium 100 MG CAP 200 MG PO (09:02)
[2023-12-04] MEDS: Ticagrelor 90 MG TAB PO ×2 (09:02→21:00)
[2023-12-04] MEDS: Gabapentin 800 MG TAB PO ×2 (09:02→20:59)
[2023-12-04] MEDS: clonazePAM 0.5 MG TAB PO ×2 (09:03→21:00)
[2023-12-04] MEDS: amLODIPine 5 MG TAB PO (09:03)
[2023-12-04] MEDS: Methadone Liquid 10 MG/ML 60 MG PO ×2 (09:03→20:59)
[2023-12-04] MEDS: Aspirin E.C. 81 MG TABEC PO (09:03)
[2023-12-04] MEDS: Insulin Aspart 300 UNITS/3 ML PEN SC ×5 (10:12→17:54)
--- NOTE | 2023-12-04 14:12 | PTTR_ITS ---
PT Notes Visit Reasons: Cerebrovascular accident Date: 12/04/23 PRECAUTIONS: Fall, standard, activity as tolerated. Contact precautions. He miplegic / hemiparetic right side. Global aphasia. SUBJECTIVE: Pt agreed to participating with therapy, pt in a good mood this afternoon. OBJECTIVE: Supine in bed. Riojas in place. Agreeable to therapy. ? PAIN: None initially, pain on right shoulder on certain movements as well as when shoulder is flexed too high. VITALS: monitored by nursing staff. Therapeutic Activities ([id number] pm): Direct one-on-one instruction in dynamic activities to improve functional performance. ? BED MOBILITY/TRANSFERS? Rolling L/R: min assist to the left. Rolling right mod A. Supine-sit: min assist ? Sit-supine: min assist to boost right leg over side of bed. ? Sit-stand x8: min/mod assist at gait belt from high bed, with patient's hand on adán walker. ? Stand-sit: CGA at gait belt, with this clinician also guarding/supporting right arm? ? Static unsupported sitting on the EOB [id number]? Static standing 10-30secs intervals, weight shifting L/R, front/back for rest break when pt get tired with sit to stand. ASSESSMENT:? pt complained of shoulder pain when right shoulder flexion goes beyond 45degrees, pt able to tolerate increased duration doing static standing and unsupported sitting on the EOB. pt reports fatigue after therapeutic activity and was able to participate with upward movement in bed for proper byd alignment and, comfort and safety post session. PLAN: Continue global strengthening, functional activity tolerance training and neuro reeducation training to patient tolerance per plan of care. Patient would benefit from skilled rehab stay to maximize functional outcomes. TREATMENT CODE/TIME: 16531x8 20mins (1:37-2:07pm)
--- NOTE | 2023-12-04 14:16 | OT.INTREAT ---
Occupational Therapy Notes Occupational Therapy Inpatient Treatment Note Date: 12/04/23 PRECAUTIONS: Fall, Contact, Full SUBJECTIVE: Pt was in good spirits today and receptive to assessment of his (R) UE. OBJECTIVE: PAIN: pain in (R) UE Manual Therapy [id number]: OT performed PROM to pts (R) UE at the digits, MP, IP and DIP joints, radial ulnar joints, carpometa-carpal joints. Then with arm in the extended position, OT performed PROM to pts digits into flexion, wrist into flexion and extension and forearm which was sore for pt. PROM performed to decrease high risk of contractures and throughout. PLAN: Progress pt as symptoms allow to decreased risk of contractures and improve functional (I). TREATMENT CODES/TIME: 10624, 15 minutes GRAHAM Suggs/Indu
[2023-12-04] MEDS: ARIPiprazole 5 MG TAB PO (21:00)
[2023-12-04] MEDS: Sennosides/Docusate Sodium TAB 1 TAB PO (21:00)
[2023-12-04] MEDS: Atorvastatin 40 MG TAB 80 MG PO (21:00)
[2023-12-04] MEDS: Insulin Glargine 300 UNITS/3 ML PEN 12 UNITS SC (21:00)
[2023-12-05] MEDS: Levothyroxine 112 MCG TAB PO (06:15)
[2023-12-05] MEDS: Levothyroxine 25 MCG TAB PO (06:15)
[2023-12-05 09:06] VITALS: BP 155/69; PULSE 77; RESP 16; TEMP 36.4; O2SAT 92
[2023-12-05] MEDS: Ticagrelor 90 MG TAB PO ×2 (09:17→21:14)
[2023-12-05] MEDS: Esomeprazole 40 MG CAPCR PO (09:17)
[2023-12-05] MEDS: Docusate Sodium 100 MG CAP 200 MG PO (09:18)
[2023-12-05] MEDS: Aspirin E.C. 81 MG TABEC PO (09:18)
[2023-12-05] MEDS: Cholecalciferol (Vitamin D3) 1,000 UNIT TAB 1000 UNITS PO (09:18)
[2023-12-05] MEDS: Magnesium Oxide 400 MG TAB PO ×2 (09:18→21:14)
[2023-12-05] MEDS: Gabapentin 800 MG TAB PO ×2 (09:18→21:14)
[2023-12-05] MEDS: amLODIPine 5 MG TAB PO (09:18)
[2023-12-05] MEDS: Carvedilol 12.5 MG TAB PO (09:19)
[2023-12-05] MEDS: Methadone Liquid 10 MG/ML 60 MG PO ×2 (09:19→21:13)
[2023-12-05] MEDS: Insulin Aspart 300 UNITS/3 ML PEN SC ×4 (09:20→17:20)
[2023-12-05] MEDS: clonazePAM 0.5 MG TAB PO ×2 (10:49→21:14)
--- NOTE | 2023-12-05 11:12 | PT.INNT ---
PT Notes Visit Reasons: Cerebrovascular accident pt refused therapy this morning. ARABELLA Sheikh tried to convince pt to participate but pt was adamant he did not want to participate as of the time being.
--- NOTE | 2023-12-05 16:03 | PT.INNT ---
Date of service: 12/05/23 Time of Service: 15:57 PT Notes Visit Reasons: Cerebrovascular accident Patient refused therapy.
[2023-12-05] MEDS: Sennosides/Docusate Sodium TAB 1 TAB PO (21:14)
[2023-12-05] MEDS: Atorvastatin 40 MG TAB 80 MG PO (21:14)
[2023-12-05] MEDS: ARIPiprazole 5 MG TAB PO (21:14)
[2023-12-05 21:15] VITALS: PULSE 78; RESP 16; O2SAT 97
[2023-12-05] MEDS: Insulin Glargine 300 UNITS/3 ML PEN 12 UNITS SC (21:16)
[2023-12-06] MEDS: Levothyroxine 112 MCG TAB PO (06:15)
[2023-12-06] MEDS: Levothyroxine 25 MCG TAB PO (06:15)
--- NOTE | 2023-12-06 09:24 | CMPROGNOTE_ITS ---
Date of service: 12/06/23 Time of Service: 09:24 Care Management Progress Note Progress Note Text Progress Note Text: S/O:Ed remains in SB-1 status. Referrals were sent to all of the SNFs in [place] and also to several border facilities in [place] and [place] that accept [place] Medicaid. It is hoped that there may be a way to increase reimbursement for Ed's care as his care needs are extensive and his aphasia makes communication challenging. Ed continues to work with PT and has showed slow progress.He is also working with speech therapy and is able to form more words and communicate a little better. Ed visits with his son and daughter whenever they are able to come to the hospital to see him. He also enjoys talking with staff. If pet therapy or music therapy were available, he would enjoy those as well. A: Ed is a 73 year old man admitted on 10/31/23 with pneumonia. He transitioned to SB-1 on 11/11/23, then became acute again on 11/14/23. He again entered SB-1 status on 11/22/23 P:Ed's discharge plan is unclear at this time. He has agreed to transfer to a SNF however no bed offers have been received. Referrals were sent again to all of the SNFs in [place] and several border facilities in [place] and [place]. CM will follow and continue to assess for discharge concerns.
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
[2023-12-06] MEDS: Insulin Aspart 300 UNITS/3 ML PEN SC ×5 (09:44→17:44)
[2023-12-06 09:59] VITALS: BP 131/66; PULSE 65; RESP 16; TEMP 36.8; O2SAT 94
[2023-12-06 10:31] LABS: Abs Immature Grans 0.03 10^3/uL (0.0-0.06); Absolute Basophil Count 0.08 10^3/uL (0.0-0.2); Absolute Lymphocyte Count 1.33 10^3/uL (1.2-3.4); Absolute Monocyte Count 0.64 10^3/uL (0.1-0.8); Absolute Neutrophil Count 5.88 10^3/uL (1.2-6.7); Basophils % 0.9; Eosinophils % 5.9; HCT 31.9 % (40.0-50.0); HGB 10.3 g/dL (13.5-17.5); Immature Grans % 0.4; Lymphocytes % 15.7; MCH 29.6 pg (27.0-33.0); MCHC 32.3 % (32.0-36.0); MCV 92 fL (80-95); MPV 9.9 fL (8.0-11.0); Monocytes % 7.6; Neutrophils % 69.5; Platelet Count 292 10^3/uL (130-400); RBC 3.48 10^6/uL (4.36-5.78); RDW 14.4 % (11.8-14.1); RDW-SD 48.7 fL; WBC 8.46 10^3/uL (4.4-10.8)
[2023-12-06 10:55] LABS: Anion Gap 6.6 mmol/L (3-11); BUN 26 mg/dL (7-18); CO2 28.4 mmol/L (21.0-32.0); CREATININE 0.9 mg/dL (0.70-1.30); Calcium 8.9 mg/dL (8.5-10.1); Chloride 109 mmol/L (98-107); Estimated GFR 91.31 (mL/min/1.73m2); Glucose 189 mg/dL (74-106); Potassium 3.8 mmol/L (3.5-5.1); Sodium 144 mmol/L (136-145)
[2023-12-06] MEDS: Aspirin E.C. 81 MG TABEC PO (11:20)
[2023-12-06] MEDS: Carvedilol 12.5 MG TAB PO (11:20)
[2023-12-06] MEDS: Docusate Sodium 100 MG CAP 200 MG PO (11:20)
[2023-12-06] MEDS: Gabapentin 800 MG TAB PO ×2 (11:20→20:25)
[2023-12-06] MEDS: Polyethylene Glycol 3350 17 GM PACKET PO (11:20)
[2023-12-06] MEDS: Cholecalciferol (Vitamin D3) 1,000 UNIT TAB 1000 UNITS PO (11:20)
[2023-12-06] MEDS: amLODIPine 5 MG TAB PO (11:20)
[2023-12-06] MEDS: Esomeprazole 40 MG CAPCR PO (11:20)
[2023-12-06] MEDS: Ticagrelor 90 MG TAB PO ×2 (11:20→20:24)
[2023-12-06] MEDS: clonazePAM 0.5 MG TAB PO ×2 (11:21→20:24)
[2023-12-06] MEDS: Magnesium Oxide 400 MG TAB PO ×2 (11:21→20:24)
[2023-12-06] MEDS: Methadone Liquid 10 MG/ML 60 MG PO ×2 (11:22→20:24)
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
--- NOTE | 2023-12-06 15:09 | PT.INTREAT ---
Date of service: 12/06/23 Time of Service: 14:24 PT Notes Visit Reasons: Cerebrovascular accident Inpatient Physical Therapy Treatment Note [facility] Date: 12/06/23 PRECAUTIONS: Fall, standard, activity as tolerated. Hemiplegic / hemiparitic right side. Global aphasia. SUBJECTIVE: Patient considers carefully, briefly declines therapy, but changes his mind and consents. OBJECTIVE: Supine in bed. Riojas in place. Agreeable to therapy. ? PAIN: None reported. VITALS: monitored by nursing staff. Therapeutic Activities (21514n2): Direct one-on-one instruction in dynamic activities to improve functional performance. ? BED MOBILITY/TRANSFERS? Rolling L/R: min assist to the left. Rolling right not assessed. Supine-sit: min assist behind knee of right leg and behind right hip to scoot right hip forward. ? Sit-supine: min assist to boost right leg over side of bed. ? Sit-stand x5: mod assist at gait belt from low bed, with patient's hand on adán walker and this clinician blocking patient's knee. Standing from chair, patient pushes up from arm rest, min assist to CGA at gait belt and blocking right knee.? Stand-sit: CGA at gait belt, with this clinician also guarding/supporting right arm and blocking right knee ? Bed-Chair: Stand pivot transfer to the left, min assist at gait belt, supporting right arm and blocking right knee ? Chair-bed: Pivot transfer to the left, without a full stand. Min assist at gait belt and blocking right knee. Standing tolerance training today with emphasis on right terminal knee extensions. Patient performs 10 terminal knee extensions over 6 stands. Provided skilled cues and instruction on performance and technique throughout. ASSESSMENT:? Patient tolerates therapy well, appears to understand the purpose of the terminal knee extensions. PLAN: Continue global strengthening, functional activity tolerance training and neuro reeducation training to patient tolerance per plan of care. Patient would benefit from skilled rehab stay to maximize functional outcomes. TIME: 46 minutes beginning at 14:24
[2023-12-06 17:17] LABS: MRSA PCR Negative (Negative)
[2023-12-06] MEDS: Sennosides/Docusate Sodium TAB 1 TAB PO (20:25)
[2023-12-06] MEDS: Atorvastatin 40 MG TAB 80 MG PO (21:58)
[2023-12-06] MEDS: ARIPiprazole 5 MG TAB PO (21:58)
[2023-12-06] MEDS: Insulin Glargine 300 UNITS/3 ML PEN 12 UNITS SC (21:59)
[2023-12-07] MEDS: Levothyroxine 25 MCG TAB PO (06:37)
[2023-12-07] MEDS: Levothyroxine 112 MCG TAB PO (06:37)
[2023-12-07] MEDS: Polyethylene Glycol 3350 17 GM PACKET PO (07:55)
[2023-12-07] MEDS: Cholecalciferol (Vitamin D3) 1,000 UNIT TAB 1000 UNITS PO (07:57)
[2023-12-07] MEDS: Methadone Liquid 10 MG/ML 60 MG PO ×2 (07:57→20:58)
[2023-12-07] MEDS: clonazePAM 0.5 MG TAB PO ×2 (07:58→21:00)
[2023-12-07] MEDS: Carvedilol 12.5 MG TAB PO (07:58)
[2023-12-07] MEDS: Docusate Sodium 100 MG CAP 200 MG PO (07:58)
[2023-12-07] MEDS: Esomeprazole 40 MG CAPCR PO (07:58)
[2023-12-07] MEDS: Aspirin E.C. 81 MG TABEC PO (07:58)
[2023-12-07] MEDS: amLODIPine 5 MG TAB PO (07:58)
[2023-12-07] MEDS: Magnesium Oxide 400 MG TAB PO ×2 (07:58→21:00)
[2023-12-07] MEDS: Ticagrelor 90 MG TAB PO ×2 (07:58→21:00)
[2023-12-07] MEDS: Gabapentin 800 MG TAB PO ×2 (07:58→20:59)
[2023-12-07 08:13] VITALS: BP 151/66; PULSE 70; RESP 17; TEMP 36.8; O2SAT 96
[2023-12-07] MEDS: Insulin Aspart 300 UNITS/3 ML PEN SC ×4 (09:40→12:31)
[2023-12-07] MEDS: Atorvastatin 40 MG TAB 80 MG PO (20:59)
[2023-12-07] MEDS: ARIPiprazole 5 MG TAB PO (20:59)
[2023-12-07] MEDS: Insulin Glargine 300 UNITS/3 ML PEN 12 UNITS SC (21:00)
[2023-12-07] MEDS: Sennosides/Docusate Sodium TAB 1 TAB PO (21:00)
[2023-12-08 07:50] VITALS: BP 143/68; PULSE 69; RESP 18; TEMP 35.7; O2SAT 96
[2023-12-08] MEDS: Methadone Liquid 10 MG/ML 60 MG PO ×2 (10:01→19:35)
[2023-12-08] MEDS: Cholecalciferol (Vitamin D3) 1,000 UNIT TAB 1000 UNITS PO (10:02)
[2023-12-08] MEDS: Ticagrelor 90 MG TAB PO ×2 (10:03→19:37)
[2023-12-08] MEDS: Gabapentin 800 MG TAB PO ×2 (10:03→19:37)
[2023-12-08] MEDS: Carvedilol 12.5 MG TAB PO (10:03)
[2023-12-08] MEDS: clonazePAM 0.5 MG TAB PO ×2 (10:04→19:37)
[2023-12-08] MEDS: Aspirin E.C. 81 MG TABEC PO (10:04)
[2023-12-08] MEDS: amLODIPine 5 MG TAB PO (10:04)
[2023-12-08] MEDS: Magnesium Oxide 400 MG TAB PO ×2 (10:04→19:37)
[2023-12-08] MEDS: Insulin Aspart 300 UNITS/3 ML PEN SC ×3 (10:06→13:37)
[2023-12-08 15:00] VITALS: BP 126/63; PULSE 61; RESP 18; TEMP 35.9; O2SAT 96
[2023-12-08] MEDS: Acetaminophen 325 MG TAB 650 MG PO (19:37)
[2023-12-08] MEDS: Sennosides/Docusate Sodium TAB 1 TAB PO (19:37)
[2023-12-08] MEDS: Lactulose 20 GM/30 ML CUP PO (19:41)
[2023-12-08] MEDS: ARIPiprazole 5 MG TAB PO (21:42)
[2023-12-08] MEDS: Atorvastatin 40 MG TAB 80 MG PO (21:42)
[2023-12-08] MEDS: Insulin Glargine 300 UNITS/3 ML PEN 12 UNITS SC (21:43)
[2023-12-09] MEDS: Levothyroxine 112 MCG TAB PO (06:14)
[2023-12-09] MEDS: Levothyroxine 25 MCG TAB PO (06:14)
[2023-12-09] MEDS: Methadone Liquid 10 MG/ML 60 MG PO ×2 (07:53→19:43)
[2023-12-09] MEDS: Polyethylene Glycol 3350 17 GM PACKET PO (07:54)
[2023-12-09] MEDS: Ticagrelor 90 MG TAB PO ×2 (07:55→19:44)
[2023-12-09] MEDS: Cholecalciferol (Vitamin D3) 1,000 UNIT TAB 1000 UNITS PO (07:55)
[2023-12-09] MEDS: Carvedilol 12.5 MG TAB PO (07:55)
[2023-12-09] MEDS: Esomeprazole 40 MG CAPCR PO (07:55)
[2023-12-09] MEDS: clonazePAM 0.5 MG TAB PO ×2 (07:56→19:44)
[2023-12-09] MEDS: Magnesium Oxide 400 MG TAB PO ×2 (07:56→19:44)
[2023-12-09] MEDS: Gabapentin 800 MG TAB PO ×2 (07:56→19:44)
[2023-12-09] MEDS: Docusate Sodium 100 MG CAP 200 MG PO (07:56)
[2023-12-09] MEDS: Aspirin E.C. 81 MG TABEC PO (07:56)
[2023-12-09] MEDS: amLODIPine 5 MG TAB PO (07:56)
[2023-12-09 09:00] VITALS: BP 133/67; PULSE 73; RESP 18; TEMP 36.1; O2SAT 98
--- NOTE | 2023-12-09 10:20 | PT.INNT ---
PT Notes Visit Reasons: Cerebrovascular accident Pt approached multiple times during the course of the morning, pt had refused all attempts, adamant he doesn't want to participate. last attempt done with supervising PT Martha with similar result.
[2023-12-09] MEDS: Insulin Aspart 300 UNITS/3 ML PEN SC ×3 (11:55→16:59)
--- NOTE | 2023-12-09 14:59 | W.SPSTP ---
Date of service: 12/09/23 Time of Service: 12:40 Subjective SUBJECTIVE: Patient seen sitting upright in bed for communication treatment. He was alert and agreeable to treatment. OBJECTIVE: 1-Syllable word repetition (each word repeated x5 with visual/verbal models): + 6 allowing for approximations Okay: + + + + + Fine: 7 - - 7 - Food: + 7 + + + pain: 7 7 + + + Juice: - - 7 - - no: - - - - - yes: - - - - - Ed: - - - - - ('7'= approximation) Spontaneous speech observed today: gingerale, i don't know, miguelina jung (explicit) ASSESSMENT: Ed was seen today for communication treatment, focused on producing single syllable functionally-relevant words. He demonstrated improved performance with this clinician initially, though after approximately 5-10 minutes of exercise he demonstrated increased perseveration (bee, fransico) with heightened subsequent frustration. Session transitioned to less-confrontational tasks, including conversation of artwork/pictures/belongings in room. During this conversation he was asked what he was drinking, and spontaneously and clearly stated gingerale. Attempted to return to the word repetition exercise, though perseveration and frustration continued and thus session discontinued. Encouragement provided, including praise for spontaneous use of 3 syllable word (gingerale). He appeared pleased with this, and repeated gingerale! gingerale! Overall, Ed continues to benefit for short, frequent treatments targeting functional communication with single syllable words. FURTHER INPATIENT COMMERCIAL LOAN CLOSER SERVICES: Patient to be followed on unit for trial treatment stimulability with communication and monitoring dysphagia needs - 2-4x weekly. DISCHARGE RECOMMENDATIONS: Recommend COMMERCIAL LOAN CLOSER services at SNF vs Home Health COMMERCIAL LOAN CLOSER at least for initial strategy training with staff for communication and dysphagia. DIET RECOMMENDATIONS: Patient is at high risk of aspiration and should receive close supervision assistance during PO intake, with strict precautions as outlined below. SOLIDS: 5-Minced & Moist Solids LIQUIDS: 0-Thin Liquids - via provale cup or ensure very small sip size and fully upright posture MEDICATIONS: Whole one at a time with sips liquid, or whole in applesauce/pudding Level of Assistance/Supervision: Close supervision/partial assist with trained staff/family for all PO intake Positioning and environment: PO intake only when awake/alert? Reduce auditory and/or visual distractions when eating [place] upright for all PO intake. Oral hygiene Before/after PO intake Using friction with toothbrush on all oral structures as tolerated Additional Safety Strategies: Small sips approx 10mL Small bites approx [id number] COMMUNICATION RECOMMENDATIONS: Comprehension: Reduce length of sentences and complexity of words Utilize demonstration and gesture as much as possible Provide visual aids/resources whenever possible Offer simplified written text whenever possible for patient to review Expression: Allow patient additional time to express self and/or multiple attempts to find word(s) For word finding difficulties during conversation: Provide patient with visual aids (smallest possible field of choice) and allow him to make a choice using pointing or repetition Provide assistance with reading text aloud, encouraging spoken repetition (especially of multisyllabic words) Encourage use of relevant gestures to enhance expression Goals: Halfway Goals: Patient will remain free from aspiration-related illness, malnutrition, and dehydration. Patient/caregivers will verbalize comprehension of education provided re: dx, strategies to maximize functioning, and role of ST. Short Term Goals: Patient will participate in ongoing diagnostic treatment addressing communication. Patient will tolerate Minced/Moist Diet and Thin liquids without overt s/s aspiration across 2/2 visits. Patient/caregivers will be independent with safe swallow/risk management strategies. NEW GOAL: Patient will repeat 10 trained functional single 1-syllable words given direct model from clinician with at least 80% accuracy x1-2 sessions. Recommendations Total Time Spent: 15 minutes (12:40-12:55) Coding CPT Codes SPEECH/HEARING THERAPY - 58003 ([id number]) Additional Codes Date of Service (51422) Date of service: 12/09/23
--- NOTE | 2023-12-09 15:06 | NT_ITS ---
PT Notes Visit Reasons: Cerebrovascular accident pt approached multiple times during the course of the afternoon. Pt refused all attempts at getting pt to participate with therapy, pt re-approached with Nurse, FLOWER MACHINE OPERATOR and Primary PT to no avail.
--- NOTE | 2023-12-09 16:18 | PT.INTREAT ---
PT Notes Visit Reasons: Cerebrovascular accident Date: 12/09/23 PRECAUTIONS: Fall, standard, activity as tolerated. Hemiplegic / hemiparitic right side. Global aphasia. SUBJECTIVE: Pt eventually consents to participating with therapy after getting resident care provider to try and convince pt to participate with therapy late in the afternoon. OBJECTIVE: Supine in bed. Riojas in place. Agreeable to therapy late in the afternoon. ? PAIN: None reported. VITALS: monitored by nursing staff. Therapeutic Activities (70648y1): Direct one-on-one instruction in dynamic activities to improve functional performance. ? BED MOBILITY/TRANSFERS? Rolling L/R: min assist to the left. Rolling right not assessed. Supine-sit: min assist for RLE transfer going to the EOB ? Sit-supine: min assist to boost right leg over side of bed. ? Sit-stand x3: mod assist at gait belt from low bed, with patient's hand on adán walker and this clinician blocking patient's knee. ?Stand-sit: CGA at gait belt, with this clinician also guarding/supporting right arm and blocking right knee ? Standing tolerance training today with emphasis on right terminal knee extensions. terminal knee extensions while doing weight shifting L/R, front/back Bed mobility going upwards and side to sidse post session verbal cue. Provided skilled cues and instruction on performance and technique throughout. ASSESSMENT:? pt tolerated activity well, happy to have participated despite the lateness of activity. very thankful. PLAN: Continue global strengthening, functional activity tolerance training and neuro reeducation training to patient tolerance per plan of care. Patient would benefit from skilled rehab stay to maximize functional outcomes. TIME: 35551t0 25mins ( 3:55-4:20pm)
[2023-12-09] MEDS: Lactulose 20 GM/30 ML CUP PO (19:43)
[2023-12-09] MEDS: Acetaminophen 325 MG TAB 650 MG PO (19:44)
[2023-12-09] MEDS: Sennosides/Docusate Sodium TAB 1 TAB PO (19:44)
[2023-12-09] MEDS: Atorvastatin 40 MG TAB 80 MG PO (21:43)
[2023-12-09] MEDS: Insulin Glargine 300 UNITS/3 ML PEN 12 UNITS SC (21:43)
[2023-12-09] MEDS: ARIPiprazole 5 MG TAB PO (21:43)
[2023-12-10] MEDS: Levothyroxine 112 MCG TAB PO (05:56)
[2023-12-10] MEDS: Levothyroxine 25 MCG TAB PO (05:57)
[2023-12-10 07:22] VITALS: BP 131/65; PULSE 65; RESP 16; TEMP 36.5; O2SAT 94
[2023-12-10] MEDS: Polyethylene Glycol 3350 17 GM PACKET PO (08:43)
[2023-12-10] MEDS: Ticagrelor 90 MG TAB PO ×2 (08:44→19:52)
[2023-12-10] MEDS: Cholecalciferol (Vitamin D3) 1,000 UNIT TAB 1000 UNITS PO (08:44)
[2023-12-10] MEDS: Aspirin E.C. 81 MG TABEC PO (08:44)
[2023-12-10] MEDS: Methadone Liquid 10 MG/ML 60 MG PO ×2 (08:44→19:52)
[2023-12-10] MEDS: Magnesium Oxide 400 MG TAB PO ×2 (08:44→19:52)
[2023-12-10] MEDS: Carvedilol 12.5 MG TAB PO (08:44)
[2023-12-10] MEDS: amLODIPine 5 MG TAB PO (08:44)
[2023-12-10] MEDS: Docusate Sodium 100 MG CAP 200 MG PO (08:45)
[2023-12-10] MEDS: Gabapentin 800 MG TAB PO ×2 (08:45→19:52)
[2023-12-10] MEDS: Esomeprazole 40 MG CAPCR PO (08:45)
--- NOTE | 2023-12-10 08:46 | PCPN_ITS ---
Date of service: 12/10/23 Time of Service: 11:32 Assessment and Plan Assessment and plan (1) Palliative care encounter: Status: Resolved (2) Encounter for long-term methadone use for opiate dependence: Status: Acute Assessment and plan: History of methadone use: History as per daughter Alejandra: Patient on methadone for more than 20 years. Has been going to [facility] in [facility]. Was stable. Was receiving 1 month supply at each visit. Our understanding was that recently his dose had been 90 mg twice daily. History from son was that he did not receive it for 1 to 2 weeks while in [place] in June. Also did not receive any for unknown amount of time prior to most recent hospital admission. He was a started initially on 50 mg twice daily when admitted October 31, 2023. At some point during the admission was increased to 60 mg twice daily where he remains to for now. Very difficult to find Long-term nursing home facility bed when patient is being prescribed methadone for opioid use disorder. [facility] Only 1 known fpc is actually managing this (in [facility]). Care management has discussed with a few other nursing home facilities that may be able to continue to administer methadone for OUD when prescribed by methadone clinic. Review of literature recently done by me: Apparently most patients need to taper completely off of their methadone in order to be excepted in long-term nursing home facility. Based on this, and after discussion with hospitalist staff, I began discussion with patient's methadone prescriber, [facility]. Spoke briefly by phone today with Rupal Masters NP, who is his prescriber at [facility]. She is actually never met him as his previous provider left. My question for them: Have they had experience with previous patient's in similar situations needing to transfer to long-term nursing home facility? Did they taper off of methadone? If so how would they recommend we do this? Alternatively, would be able to taper down on their methadone and then switch over to Suboxone? I they were [facility] other facilities in our state who would continue to administer methadone as prescribed by their clinic for OUD? They will discuss patient at their weekly clinical rounds and get back to me with recommendations. Additional conversation today with daughter and held care agent Alejandra. Conversation held outside of patient's room. We reviewed where things currently stand with Ed, how he is doing. Discussed with her the above issues, difficulty with placing someone who needs to be administered methadone for OUD. She gave me a little additional history of how long he has been on it, has been quite stable for decades. She is asked him in the past if he was interested in tapering off. He said he had thought about it but always felt a little nervous about it. His concern at the time was about having return of cravings and possibly using again. Based on our conversation, we will meet again with Ed once the [facility] gives us their recommendations. If they recommend considering tapering, we will discuss with Ed. I expect him to initially be resistant to anxiety. This may need to be a discussion over time. Also depends on whether case management can locate long-term bed where they are willing to administer methadone. 08:45 [facility] Provider line: [phone] Message left. WIll get call back from Rupal Masters NP, who is Ed's termite renewal inspector clinician there. 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 For example, she will ask if her brother was there earlier and is not sure if her dad understands, he gives an equivocal answer. As she points out that question has either a yes or no answer . Interesting to note Eliana's concern, as TELEGRAPH AND TELETYPE OPERATOR has expressed this concern as well. Looks like he was last seen by Ladan Blanca yesterday. TELEGRAPH AND TELETYPE OPERATOR Deana Alvarado had tried to use picture communication and had not been able to get patient to engage. She feels that his expressive language has gotten slightly more fluent, but still very difficult for him to get out a complete thought. She has never met with the speech therapists. She would be very interested in doing so. Her 7-year-old child has ASD and she used picture exchange for communication during the first several years of his life (no longer needs). She would be happy to use some sort of symbolic communication with him if instructed by TELEGRAPH AND TELETYPE OPERATOR. I asked Eliana to call Deana Alvarado to discuss further. Excellent that certified welder continues to meet with patient. Subjective Subjective Interval history since last seen: Please use I met with patient, patient's daughter and also consulted by phone with in 6 at the prescriber today. Refer to assessment and plan for full history. Additionally, gave daughter a copy of booklet had to make medical decisions for someone else and reviewed it with her. I think she will find it helpful. Exam Narrative Exam Narrative: Pleasant thin elderly gentleman sitting up in recliner. Eating custard. Good eye contact. Speaking in single words. Somewhat difficult to understand. No in-depth conversation today. Objective Last Vital Signs Temp 36.5 C 12/10/23 07:22 Pulse 65 12/10/23 07:22 Resp 16 12/10/23 07:22 BP 131/65 12/10/23 07:22 Pulse Ox 94 12/10/23 07:22
[2023-12-10] MEDS: Insulin Aspart 300 UNITS/3 ML PEN SC ×5 (08:57→17:43)
[2023-12-10] MEDS: clonazePAM 0.5 MG TAB PO ×2 (09:33→19:52)
--- NOTE | 2023-12-10 09:37 | OTTR_ITS ---
Occupational Therapy Notes Occupational Therapy Inpatient Treatment Note Date: 12/10/23 PRECAUTIONS: Fall, Contact, Full SUBJECTIVE: Pt was in good spirits today and receptive to OT coming in for session. His (R) UE is swollen and sore. OBJECTIVE: PAIN: pain in (R) UE with AROM Manual Therapy [id number]: OT performed PROM to pts (R) UE at the digits, MP, IP and DIP joints, radial ulnar joints, -carpal joints. Then with arm in the extended position, OT performed PROM to pts digits into flexion, wrist into flexion and extension and forearm which was sore for pt. PROM performed to decrease high risk of contractures and throughout. Pt has increased pain with crossing midline, UE above elbow and to the thigh. OT will continue to monitor pts response to todays session. PLAN: Progress pt as symptoms allow to decreased risk of contractures and improve functional (I). TREATMENT CODES/TIME: 24424, 20 minutes [facility] [place], [place]
--- NOTE | 2023-12-10 12:00 | PTTR_ITS ---
Date of service: 12/10/23 Time of Service: 10:53 PT Notes Visit Reasons: Cerebrovascular accident Inpatient Physical Therapy Treatment Note [facility] Date: 12/10/23 PRECAUTIONS: Fall, standard, activity as tolerated. Right hemiplegia / hemiparesis due to hx CVA SUBJECTIVE: Patient appears less cognitively engaged than is typical. OBJECTIVE: Sitting up in bedside chair. Daughter present. Agreeable to therapy, declines to come to the gym. ? PAIN: none reported VITALS: monitored by nursing staff. ? BED MOBILITY/TRANSFERS? Rolling L/R: max assist of one Supine-sit: min assist of one to guide RLE off EOB, min assist via handhold for patient to pull himself up? Sit-supine: min assist to maneuver RLE into bed ? Sit-stand x5: verbal and tactile cueing to push up from sitting surface, min assist. When patient insists on pulling up on adán walker, max assist.?Stand-sit: CGA? Bed-Chair: not assessed? Chair-bed: min assist Provided skilled cues and instruction on performance and technique throughout. Neuromuscular Re-education (95477w0): Activities that facilitate re-education of movement balance, posture, coordination, and proprioception or kinesthetic sense, requiring skilled tactile and verbal cues ? Exercises/techniques: * unsupported sitting 2x3 minutes * unsupported seated reaching activities for dynamic balance 2x 90 seconds * standing weight shift * standing right terminal knee extensions. ASSESSMENT:? Patient seems slightly weaker than is typical for him, and less conversant. PLAN: Continue global strengthening per plan of care until patient is medically cleared for discharge. TREATMENT CODE/TIME: 15 minutes beginning at 10:53 and 5 minutes beginning at 12:43 for a total of 20 minutes today.
[2023-12-10] MEDS: Sennosides/Docusate Sodium TAB 1 TAB PO (19:52)
[2023-12-10] MEDS: Acetaminophen 325 MG TAB 650 MG PO (19:52)
[2023-12-10] MEDS: Atorvastatin 40 MG TAB 80 MG PO (20:53)
[2023-12-10] MEDS: ARIPiprazole 5 MG TAB PO (20:53)
[2023-12-10] MEDS: Insulin Glargine 300 UNITS/3 ML PEN 12 UNITS SC (20:56)
[2023-12-11] MEDS: Levothyroxine 25 MCG TAB PO (06:02)
[2023-12-11] MEDS: Levothyroxine 112 MCG TAB PO (06:02)
[2023-12-11] MEDS: Methadone Liquid 10 MG/ML 60 MG PO ×2 (07:52→20:59)
[2023-12-11] MEDS: Aspirin E.C. 81 MG TABEC PO (07:53)
[2023-12-11] MEDS: Ticagrelor 90 MG TAB PO ×2 (07:53→20:58)
[2023-12-11] MEDS: Carvedilol 12.5 MG TAB PO (07:53)
[2023-12-11] MEDS: Esomeprazole 40 MG CAPCR PO (07:53)
[2023-12-11] MEDS: amLODIPine 5 MG TAB PO (07:54)
[2023-12-11] MEDS: Cholecalciferol (Vitamin D3) 1,000 UNIT TAB 1000 UNITS PO (07:55)
[2023-12-11] MEDS: Magnesium Oxide 400 MG TAB PO ×2 (07:56→20:58)
[2023-12-11] MEDS: Gabapentin 800 MG TAB PO ×2 (07:56→20:59)
[2023-12-11] MEDS: clonazePAM 0.5 MG TAB PO ×2 (07:56→20:59)
--- NOTE | 2023-12-11 08:05 | OT.INTREAT ---
Occupational Therapy Notes Occupational Therapy Treatment Note Date: 12/11/23 PRECAUTIONS: Fall, Contact, Full SUBJECTIVE: Pt was in good spirits today and receptive to OT coming in for session. His (R) UE is swollen and sore but he was willing to allow OT to perfrom PROM. OBJECTIVE: PAIN: pain in (R) UE with AROM, but better tolerated today. . Manual Therapy 70662t1: OT performed PROM to pts (R) UE at the digits, MP, IP and DIP joints, radial ulnar joints, -carpal joints. Then with arm in the extended position, OT performed PROM to pts digits into flexion, wrist into flexion and extension and forearm which was sore for pt. PROM performed to decrease high risk of contractures and throughout. Pt has increased pain with crossing midline, UE above elbow and to the thigh. Pts digits are stiff and OT explains to pt the benefit of orthosis to have pt wear nocturnally to decrease digit contracture throughout. OT will continue to monitor pts response to todays session. Self Care Training 23908x2: OT and pt go over use of (L) UE for ADLs. He has 5/5 strength with his (L) UE with good mobility control. OT provided min vc for pt to perfrom UE bathing. He is able to use his (L) UE for face, (R) UE and abdomen. However due to the flaccidity of the (R) UE he requires max (A) for his (L) UE. He has ideal ROM And (I) to get his hand to his face and is receptive to being as (I) as possible when it comes to his ADL routines. OT will continue to progress this. PLAN: Progress pt as symptoms allow to decreased risk of contractures and improve functional (I). TREATMENT CODES/TIME: 31938,33339 30 minutes Sara Cantu OTR/L [facility] [place], [place]
[2023-12-11] MEDS: Insulin Aspart 300 UNITS/3 ML PEN SC ×4 (08:08→13:44)
--- NOTE | 2023-12-11 09:56 | PDOC.CMACT ---
Date of service: 12/11/23 Time of Service: 09:56 Care Management Activity Note Activity Note Text Activity Note Text: S/O:Ed remains in SB status. He is unable to use items from the activity cart due to his disabilities, however he enjoys interacting with staff and family. Ed watches TV and listens to music If pet therapy or music therapy were available, he would enjoy those activities. A: Ed is a 73 year old man admitted to [facility] ON 10/31/23 with pneumonia. He was transitioned to SB-1 then back to acute and finally back to SB-1 on 11/22/23 P: Ed's discharge plan remains unclear. Referrals have been sent to every SNF in [place] and to border facilities in [place] and [place]. No bed offers have been received. His home provider is no longer able to care for him and no AFC home has been found.
--- NOTE | 2023-12-11 11:53 | PTTR_ITS ---
Date of service: 12/11/23 Time of Service: 10:41 PT Notes Visit Reasons: Cerebrovascular accident Inpatient Physical Therapy Treatment Note [facility] Date: 12/11/22 PRECAUTIONS: Fall, standard, activity as tolerated. Right side pemiparesis / hemiplegia due to hx of CVA. SUBJECTIVE: Patient is coughing more frequently and the cough sounds wet to this clinician. Riojas catheter tube appears to have floaters throughout. RN Haily notified. OBJECTIVE: Patient supine in bed, slumped hard to left side. Has some trouble straightening himself out. ? PAIN: none reported VITALS: monitored by nursing staff? Therapeutic Activities (60900y2): Direct one-on-one instruction in dynamic activities to improve functional performance. ? BED MOBILITY/TRANSFERS? Rolling L/R: not assessed Supine-sit: min assist. Patient moves right leg off EOB independently, needs min assist via handhold to pull himself up to sitting ?Sit-supine: patient requires min assist to move RLE into bed, mod to max assist and verbal cues to reposition in bed. This is worse than is typical for this patient. ?Sit-stand: with cues to push up from sitting surface, min assist of one via gait belt. When patient insists on pulling up from parallel bars, mod to max assist of one or mod assist of 2. ? Stand-sit: CGA ? Bed-Chair: min assist? Chair-bed: min assist Patient also participates in wheelchair mobility training with right foot rest in place, using LUE and LLE to self propel standard wheelchair. Provided skilled cues and instruction on performance and technique throughout. Neuromuscular Re-education (55050k6): Activities that facilitate re-education of movement balance, posture, coordination, and proprioception or kinesthetic sense, requiring skilled tactile and verbal cues ? Exercises/techniques: * unsupported sitting 2x3 minutes * unsupported seated reaching activities for dynamic balance 2x 90 seconds * standing weight shift * standing right terminal knee extensions. ASSESSMENT:? Patient expresses frustration, becomes emotional at close of session today. Appears disappointed with his performance today. Also seems to be concerned with the contents of his Riojas tube / bag, as he pulls it up several times to inspect it more closely during this treatment session. PLAN: Continue global strengthening to patient tolerance until patient obtains safe discharge plan. TREATMENT CODE/TIME: 56 minutes beginning at 10:41
--- NOTE | 2023-12-11 16:03 | SPP_ITS ---
Date of service: 12/11/23 Time of Service: 13:00 Subjective Patient seen sitting upright in bed for communication treatment. He was alert and agreeable to treatment. At time of contact he was semi-reclined in bed, having just finished lunch. COMPUTER HARDWARE ENGINEER assisted patient to complete oral care. OBJECTIVE: 1-2 Syllable word repetition (each word repeated x5 with visual/verbal models): + 12 allowing for approximations Drink + + + + + Cup + + + + + Spoon 7 7 7 7 7 (Baldev) Food 7 7 7 7 7 (Pood) Hand - - 7 - 7 (Leger) TV + + + + + ('7'= approximation) ASSESSMENT: Ed was seen today for communication treatment, focused on producing single (and 1 double) syllable functionally-relevant words. He demonstrated improved performance with this clinician initially, with some phonemic perseveration. Patient seemed very fatigued this date but with minimal fr ustration. Overall, Ed continues to benefit for short, frequent treatments targeting functional communication with single syllable words. Session was terminated when patient became tearful after seeing a picture of his grandson and gestured for clinician to leave. FURTHER INPATIENT COMPUTER HARDWARE ENGINEER SERVICES: Patient to be followed on unit for trial treatment stimulability with comm unication and monitoring dysphagia needs - 2-4x weekly. DISCHARGE RECOMMENDATIONS: Recommend COMPUTER HARDWARE ENGINEER services at SNF vs Home Health COMPUTER HARDWARE ENGINEER at least for initial strategy training with staff for communication and dysphagia. DIET RECOMMENDATIONS: Patient is at high risk of aspiration and should receive close supervision assistance during PO intake, with strict precautions as outlined below. SOLIDS: 5-Minced & Moist Solids LIQUIDS: 0-Thin Liquids - via provale cup or ensure very small sip size and fully upright posture MEDICATIONS: Whole one at a time with sips liquid, or whole in applesauce/pudding Level of Assistance/Supervision: Close supervision/partial assist with trained staff/family for all PO intake Positioning and environment: PO intake only when awake/alert? Reduce auditory and/or visual distractions when eating [place] upright for all PO intake. Oral hygiene Before/after PO intake Using friction with toothbrush on all oral structures as tolerated Additional Safety Strategies: Small sips approx 10mL Small bites approx [id number] COMMUNICATION RECOMMENDATIONS: Comprehension: Reduce length of sentences and complexity of words Utilize demonstration and gesture as much as possible Provide visual aids/resources whenever possible Offer simplified written text whenever possible for patient to review Expression: Allow patient additional time to express self and/or multiple attempts to find word(s) For word finding difficulties during conversation: Provide patient with visual aids (smallest possible field of choice) and allow him to make a choice using pointing or repetition Provide assistance with reading text aloud, encouraging spoken repetition (especially of multisyllabic words) Encourage use of relevant gestures to enhance expression Goals: Zone Maintenance Technician Goals: Patient will remain free from aspiration-related illness, malnutrition, and dehydration. Patient/caregivers will verbalize comprehension of education provided re: dx, strategies to maximize functioning, and role of ST. Short Term Goals: Patient will participate in ongoing diagnostic treatment addressing communication. Patient will tolerate Minced/Moist Diet and Thin liquids without overt s/s aspiration across 2/2 visits. Patient/caregivers will be independent with safe swallow/risk management strategies. Patient has moved rooms since last visit with this clinician - added recommendations to white board for nursing and reminded them of his aspiration precautiosn. Patient will repeat 10 trained functional single 1-syllable words given direct model from clinician with at least 80% accuracy x1-2 sessions. Training list: Food, pain, drink, cup, pain, hand, spoon, Juice, Ed, No, Yes Recommendations Total Time Spent: 15 minutes (12:40-12:55) Coding Additional Codes Date of Service (49043) Date of service: 12/11/23
[2023-12-11 16:34] VITALS: BP 152/67; PULSE 71; TEMP 36.3; O2SAT 94
[2023-12-11] MEDS: ARIPiprazole 5 MG TAB PO (20:58)
[2023-12-11] MEDS: Sennosides/Docusate Sodium TAB 1 TAB PO (20:59)
[2023-12-11] MEDS: Atorvastatin 40 MG TAB 80 MG PO (20:59)
[2023-12-11] MEDS: Lactulose 20 GM/30 ML CUP PO (21:00)
[2023-12-11] MEDS: Acetaminophen 325 MG TAB 650 MG PO (21:38)
[2023-12-12] MEDS: Levothyroxine 112 MCG TAB PO (06:25)
[2023-12-12] MEDS: Levothyroxine 25 MCG TAB PO (06:25)
[2023-12-12 07:58] VITALS: BP 150/75; PULSE 67; RESP 16; TEMP 36.8; O2SAT 94
[2023-12-12] MEDS: Magnesium Oxide 400 MG TAB PO ×2 (09:09→21:44)
[2023-12-12] MEDS: Methadone Liquid 10 MG/ML 60 MG PO ×2 (09:10→21:43)
[2023-12-12] MEDS: Esomeprazole 40 MG CAPCR PO (09:10)
[2023-12-12] MEDS: Ticagrelor 90 MG TAB PO ×2 (09:10→21:44)
[2023-12-12] MEDS: Aspirin E.C. 81 MG TABEC PO (09:11)
[2023-12-12] MEDS: Gabapentin 800 MG TAB PO ×2 (09:11→21:45)
[2023-12-12] MEDS: Docusate Sodium 100 MG CAP 200 MG PO (09:11)
[2023-12-12] MEDS: Cholecalciferol (Vitamin D3) 1,000 UNIT TAB 1000 UNITS PO (09:12)
[2023-12-12] MEDS: amLODIPine 5 MG TAB PO (09:12)
[2023-12-12] MEDS: Carvedilol 12.5 MG TAB PO (09:12)
[2023-12-12] MEDS: Insulin Aspart 300 UNITS/3 ML PEN SC ×4 (09:12→17:44)
--- NOTE | 2023-12-12 10:48 | SPP_ITS ---
Date of service: 12/12/23 Time of Service: 10:15 Subjective Patient seen sitting upright in bed following ADL assistance with LNAs. Patient with very bright affect initially, appearing eager to work with therapy initially. Frustration did occur as session progressed, when he was unable to successfully produce target words. Objective/Assessment/Plan Objective Treatment Techniques & Outcomes: Yes/No Questions: - Using large font, colored YES/NO board with correlated green/red colors and symbols for simple questions (Is your name Ed? Is it winter?) = 1/4 accuracy - Using head gestures, nodding/shaking head: 0/2 Field of 2 Option Questions: Clinician held up two pieces of paper (one in each hand) introducing verbally and repeating each x1 = 4/5 accuracy Is it Winter or Summer? + Are we in [place] or [place]? + Is it November or May? - Is this cup orange juice or gingerale?: + Is it July or November? + Repeating single syllable functional words: Okay + + + + + Fine: - - 7 7 7 (pine) Food: - - - - - Cup: - - - - - *Discontinued secondary to pt request as gestured with hand and also stating I dont want to play Assessment Ed was seen today for communication treatment. Today's session revisited reliability for Yes/No questions, in light of recent palliative care note in which patient's daughter was concerned regarding Ed's ability to respond to questions, such as asking if her brother had already been to visit that day. We initially re-attempted using a large font colored Yes/No board that included correlated symbols. When asked simple questions (Is your name Carlos? Is it Winter?) Ed was unable to demonstrate consistent comprehension either with pointing, facial expressions, or nodding. We transitioned to a field of two model, in which the clinician held up pieces of paper, one in each hand, each containing a single word response. These responses were read aloud x2, and then he was asked a question (eg Is it SUMMER or WINTER?). Ed was able to point to the target piece of paper with 4/5 or 80% accuracy with this model. He demonstrated increased spontaneous utterances for longer words/phrases during today's session, including spontaneously repeating words Summertime [place] as well as a clear sentence when asking to discontinue I don't want to play. Clinician provided brief break between therapy tasks, though when redirected to single syllable word repetition exercise, Ed quickly grew frustrated when unable to produce the target. He continues to benefit from tasks that are successful for him as well as short/frequent treatments to avoid frustration. Therapy will continue to target functional communication as well as family/staff education on how to optimize communication with Ed. Ultimately, yes/no questions remain unreliable (chance level or below) despite trials of written modalities with varying font size, colors, and symbols. Reliability may be improved when given field of 2 options, written and verbally. Plan to continue to explore this to assess for consistency. *Ed remains heightened risk for aspiration, see ongoing precautions below. FURTHER INPATIENT FLASH WELDING MACHINE OPERATOR SERVICES: Patient to be followed on unit for trial treatment stimulability with communication and monitoring dysphagia needs - 2-4x weekly. DISCHARGE RECOMMENDATIONS: Recommend FLASH WELDING MACHINE OPERATOR services at SNF vs Home Health FLASH WELDING MACHINE OPERATOR at least for initial strategy training with staff for communication and dysphagia. DIET RECOMMENDATIONS: Patient is at high risk of aspiration and should receive close supervision assistance during PO intake, with strict precautions as outlined below. SOLIDS: 5-Minced & Moist Solids LIQUIDS: 0-Thin Liquids - via provale cup or ensure very small sip size and fully upright posture MEDICATIONS: Whole one at a time with sips liquid, or whole in applesauce/pudding Level of Assistance/Supervision: Close supervision/partial assist with trained staff/family for all PO intake Positioning and environment: PO intake only when awake/alert? Reduce auditory and/or visual distractions when eating [place] upright for all PO intake. Oral hygiene Before/after PO intake Using friction with toothbrush on all oral structures as tolerated Additional Safety Strategies: Small sips approx 10mL Small bites approx [id number] COMMUNICATION RECOMMENDATIONS: Comprehension: Reduce length of sentences and complexity of words Utilize demonstration and gesture as much as possible Provide visual aids/resources whenever possible Offer simplified written text whenever possible for patient to review Expression: Allow patient additional time to express self and/or multiple attempts to find word(s) For word finding difficulties during conversation: Provide patient with visual aids (smallest possible field of choice) and allow him to make a choice using pointing or repetition Provide assistance with reading text aloud, encouraging spoken repetition (especially of multisyllabic words) Encourage use of relevant gestures to enhance expression Goals: Hot Pipe Gauger Goals: Patient will remain free from aspiration-related illness, malnutrition, and dehydration. Patient/caregivers will verbalize comprehension of education provided re: dx, strategies to maximize functioning, and role of ST. Short Term Goals: Patient will participate in ongoing diagnostic treatment addressing communication. Patient will tolerate Minced/Moist Diet and Thin liquids without overt s/s aspiration across 2/2 visits. Patient/caregivers will be independent with safe swallow/risk management strategies. Patient has moved rooms since last visit with this clinician - added recommendations to white board for nursing and reminded them of his aspiration precautiosn. Patient will repeat 10 trained functional single 1-syllable words given direct model from clinician with at least 80% accuracy x1-2 sessions. Training list: Food, pain, drink, cup, pain, hand, spoon, Juice, Ed, No, Yes Coding CPT Codes ORAL FUNCTION THERAPY - [id number] ([id number]) Additional Codes Date of Service (08829) Date of service: 12/12/23
[2023-12-12] MEDS: clonazePAM 0.5 MG TAB PO ×2 (10:51→21:45)
--- NOTE | 2023-12-12 10:52 | PT.INNT ---
Date of service: 12/12/23 Time of Service: 10:32 PT Notes Visit Reasons: Cerebrovascular accident Speech therapy wraps up as this clinician approaches patient. Patient refuses therapy this a.m., adamantly stating No. You get out. Patient is agreeable to being seen this afternoon.
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
--- NOTE | 2023-12-12 16:10 | PTTR_ITS ---
Date of service: 12/12/23 Time of Service: 15:20 PT Notes Visit Reasons: Cerebrovascular accident Inpatient Physical Therapy Treatment Note [facility] Date: 12/12/23 PRECAUTIONS: Fall, standard, activity as tolerated. Right hemiplegia/hemiparesis from hx CVA SUBJECTIVE: Patient is asleep when this clinician enters, awakens easily, appears in good spirits. Speech more difficult to understand than this clinician has seen in the past, but not worse than yesterday. OBJECTIVE: Supine in bed, leaning left but not as sharply as yesterday. Agreeable to therapy. ? PAIN: none reported or observed. Therapeutic Activities ([id number]): Direct one-on-one instruction in dynamic activities to improve functional performance. ? BED MOBILITY/TRANSFERS? Rolling L/R: not assessed Supine-sit: mod assist by handhold for patient to pull up.? Sit-supine: min assist to maneuver RLE into bed? Sit-stand: patient refused ? Patient participates in bed mobility training including scooting up and down the bed in both supine and sitting. ? Provided skilled cues and instruction on performance and technique throughout. ? Therapeutic Exercises ([id number]): Direct one-on-one instruction in therapeutic exercises to develop strength, endurance, range of motion and flexibility. ? Exercises: * bridging x10, verbal and tactile cues for appropriate movement, muscle recruitment. * attempted SAQ, patient believes he is unable to move RLE. Patient becomes frustrated / emotional at further cues to attempt. ? Provided skilled instruction in proper exercise performance Provided skilled manual cues to facilitate proper muscle recruitment and/or form. ASSESSMENT:? Patient continues to have low frustration tolerance. Introduce new activities slowly to keep patient from becoming overwhelmed. PLAN: Continue global strengthening per plan of care until patient achieves safe discharge plan. TREATMENT CODE/TIME: 40 minutes beginning at 15:20
[2023-12-12] MEDS: Insulin Glargine 300 UNITS/3 ML PEN 12 UNITS SC (21:42)
[2023-12-12] MEDS: Atorvastatin 40 MG TAB 80 MG PO (21:44)
[2023-12-12] MEDS: Acetaminophen 325 MG TAB 650 MG PO (21:44)
[2023-12-12] MEDS: ARIPiprazole 5 MG TAB PO (21:44)
[2023-12-12] MEDS: Sennosides/Docusate Sodium TAB 1 TAB PO (21:45)
[2023-12-13] MEDS: Levothyroxine 25 MCG TAB PO (06:05)
[2023-12-13] MEDS: Levothyroxine 112 MCG TAB PO (06:05)
[2023-12-13 06:29] LABS: Abs Immature Grans 0.01 10^3/uL (0.0-0.06); Absolute Basophil Count 0.08 10^3/uL (0.0-0.2); Absolute Eosinophil Count 0.62 10^3/uL (0.0-0.7); Absolute Lymphocyte Count 1.72 10^3/uL (1.2-3.4); Absolute Monocyte Count 0.63 10^3/uL (0.1-0.8); Absolute Neutrophil Count 4.39 10^3/uL (1.2-6.7); Basophils % 1.1; Eosinophils % 8.3; HCT 31.2 % (40.0-50.0); HGB 10.1 g/dL (13.5-17.5); Immature Grans % 0.1; Lymphocytes % 23.1; MCH 29.6 pg (27.0-33.0); MCHC 32.4 % (32.0-36.0); MCV 92 fL (80-95); MPV 10.3 fL (8.0-11.0); Monocytes % 8.5; Neutrophils % 58.9; Platelet Count 241 10^3/uL (130-400); RBC 3.41 10^6/uL (4.36-5.78); RDW-SD 47.5 fL; WBC 7.45 10^3/uL (4.4-10.8)
[2023-12-13 06:42] LABS: Anion Gap 6.1 mmol/L (3-11); BUN 27 mg/dL (7-18); CO2 29.9 mmol/L (21.0-32.0); CREATININE 0.9 mg/dL (0.70-1.30); Calcium 8.6 mg/dL (8.5-10.1); Chloride 108 mmol/L (98-107); Estimated GFR 91.31 (mL/min/1.73m2); Glucose 160 mg/dL (74-106); Potassium 3.6 mmol/L (3.5-5.1); Sodium 144 mmol/L (136-145)
[2023-12-13 07:02] VITALS: BP 162/71; PULSE 64; RESP 16; TEMP 36.4; O2SAT 94
[2023-12-13] MEDS: clonazePAM 0.5 MG TAB PO ×2 (08:04→21:00)
[2023-12-13] MEDS: Methadone Liquid 10 MG/ML 60 MG PO ×2 (08:04→20:19)
[2023-12-13] MEDS: Carvedilol 12.5 MG TAB PO (08:04)
[2023-12-13] MEDS: amLODIPine 5 MG TAB PO (08:04)
[2023-12-13] MEDS: Esomeprazole 40 MG CAPCR PO (08:05)
[2023-12-13] MEDS: Cholecalciferol (Vitamin D3) 1,000 UNIT TAB 1000 UNITS PO (08:05)
[2023-12-13] MEDS: Gabapentin 800 MG TAB PO ×2 (08:05→20:17)
[2023-12-13] MEDS: Ticagrelor 90 MG TAB PO ×2 (08:05→20:18)
[2023-12-13] MEDS: Magnesium Oxide 400 MG TAB PO ×2 (08:05→20:17)
[2023-12-13] MEDS: Aspirin E.C. 81 MG TABEC PO (08:05)
[2023-12-13] MEDS: Docusate Sodium 100 MG CAP 200 MG PO (08:05)
[2023-12-13] MEDS: Insulin Aspart 300 UNITS/3 ML PEN SC ×5 (08:06→17:40)
[2023-12-13] MEDS: Polyethylene Glycol 3350 17 GM PACKET PO (09:41)
--- NOTE | 2023-12-13 14:13 | PTTR_ITS ---
Date of service: 12/13/23 Time of Service: 11:40 PT Notes Visit Reasons: Cerebrovascular accident Inpatient Physical Therapy Treatment Note [facility] Date: 12/13/23 PRECAUTIONS: Fall, standard, activity as tolerated. Hemiplegia / hemiparesis from hx CVA SUBJECTIVE: Patient appears to be asleep when this clinician enters. Wakes easily. OBJECTIVE: Supine in bed. Agreeable to therapy. Agreeable to sit up to the chair for lunch.? PAIN: none reported initially. VITALS: monitored by nursing staff Therapeutic Activities ([id number]): Direct one-on-one instruction in dynamic activities to improve functional performance. ? BED MOBILITY/TRANSFERS? Rolling L/R: not assessed Supine-sit: min assist, extended processing time. ? Sit-supine: mod assist, extended processing time. ? Sit-stand: CGA with gait belt, verbal and tactile cues to push up from sitting surface, extended processing time. ? Stand-sit: CGA? Bed-Chair: CGA at gait belt with verbal cues for task sequence, extended processing time. ? Chair-bed: CGA at gait belt with verbal cues for task sequence, extended processing time. ? Provided skilled cues and instruction on performance and technique throughout. ASSESSMENT:? Patient tolerates therapy well, continues to improve functional s trength for transfers. PLAN: Continue global strengthening, neuro reeducation per plan of care until patient achieves safe discharge plan. TREATMENT CODE/TIME: 21 minutes beginning at 11:40, 16 minutes beginning at 13:45 for a total of 37 minutes today
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
[2023-12-13] MEDS: Sennosides/Docusate Sodium TAB 1 TAB PO (20:17)
[2023-12-13] MEDS: Atorvastatin 40 MG TAB 80 MG PO (20:17)
[2023-12-13] MEDS: ARIPiprazole 5 MG TAB PO (20:17)
[2023-12-13] MEDS: Insulin Glargine 300 UNITS/3 ML PEN 12 UNITS SC (22:13)
[2023-12-14] MEDS: Levothyroxine 25 MCG TAB PO (05:38)
[2023-12-14] MEDS: Levothyroxine 112 MCG TAB PO (05:38)
[2023-12-14] MEDS: Methadone Liquid 10 MG/ML 60 MG PO ×2 (08:52→19:39)
[2023-12-14] MEDS: Carvedilol 12.5 MG TAB PO (08:53)
[2023-12-14] MEDS: Esomeprazole 40 MG CAPCR PO (08:53)
[2023-12-14] MEDS: Gabapentin 800 MG TAB PO ×2 (08:53→19:39)
[2023-12-14] MEDS: Ticagrelor 90 MG TAB PO ×2 (08:53→19:39)
[2023-12-14] MEDS: clonazePAM 0.5 MG TAB PO ×2 (08:53→21:14)
[2023-12-14] MEDS: amLODIPine 5 MG TAB PO (08:53)
[2023-12-14] MEDS: Aspirin E.C. 81 MG TABEC PO (08:53)
[2023-12-14] MEDS: Cholecalciferol (Vitamin D3) 1,000 UNIT TAB 1000 UNITS PO (08:53)
[2023-12-14] MEDS: Magnesium Oxide 400 MG TAB PO ×2 (08:53→19:39)
[2023-12-14 09:27] VITALS: BP 154/58; PULSE 64; RESP 17; TEMP 36.4; O2SAT 98
[2023-12-14] MEDS: Insulin Aspart 300 UNITS/3 ML PEN SC ×3 (12:54→16:50)
[2023-12-14] MEDS: Sennosides/Docusate Sodium TAB 1 TAB PO (19:39)
[2023-12-14] MEDS: Atorvastatin 40 MG TAB 80 MG PO (21:10)
[2023-12-14] MEDS: ARIPiprazole 5 MG TAB PO (21:11)
[2023-12-14] MEDS: Insulin Glargine 300 UNITS/3 ML PEN 12 UNITS SC (21:11)
[2023-12-15] MEDS: Esomeprazole 40 MG CAPCR PO (07:47)
[2023-12-15 07:59] VITALS: BP 100/55; PULSE 72; RESP 17; TEMP 36.1; O2SAT 94
[2023-12-15 08:05] VITALS: BP 120/70
[2023-12-15] MEDS: Aspirin E.C. 81 MG TABEC PO (08:34)
[2023-12-15] MEDS: Ticagrelor 90 MG TAB PO ×2 (08:34→21:20)
[2023-12-15] MEDS: Gabapentin 800 MG TAB PO ×2 (08:35→21:19)
[2023-12-15] MEDS: Docusate Sodium 100 MG CAP 200 MG PO (08:35)
[2023-12-15] MEDS: Carvedilol 12.5 MG TAB PO (08:35)
[2023-12-15] MEDS: clonazePAM 0.5 MG TAB PO ×2 (08:35→21:20)
[2023-12-15] MEDS: Magnesium Oxide 400 MG TAB PO ×2 (08:35→21:19)
[2023-12-15] MEDS: Methadone Liquid 10 MG/ML 60 MG PO ×2 (08:36→21:30)
[2023-12-15] MEDS: amLODIPine 5 MG TAB PO (08:36)
[2023-12-15] MEDS: Cholecalciferol (Vitamin D3) 1,000 UNIT TAB 1000 UNITS PO (08:38)
[2023-12-15] MEDS: Insulin Aspart 300 UNITS/3 ML PEN SC ×6 (09:38→17:16)
[2023-12-15 10:44] LABS: Bilirubin Negative (Negative); Blood Moderate (Negative); Clarity Cloudy (Clear); Glucose Negative (Negative); Ketones Trace mg/dL (Negative); Leukocyte Esterase Moderate (Negative); Nitrite Negative (Negative); pH >= 9.0 (5-8)
[2023-12-15 10:50] LABS: Bacteria Many HPF (Negative); C & S Indicated? Yes; Casts Negative LPF (Negative); Crystals Many Triple Phos HPF (Negative); Epithelial Cells Negative HPF (Negative); Mucus Negative (Negative); WBC 20-50 HPF (0-5)
[2023-12-15] MEDS: Normal Saline 500 ML 30 ML IV (13:23)
[2023-12-15] MEDS: cefTRIAXone 2 GM/50 ML BAG IVPB (13:24)
[2023-12-15] MEDS: Lidocaine 2% Jelly 11 ML SYR UR (13:43)
[2023-12-15] MEDS: Normal Saline Flush 10 ML SYR IVP ×2 (14:19→22:07)
[2023-12-15] MEDS: ARIPiprazole 5 MG TAB PO (21:20)
[2023-12-15] MEDS: Lactulose 20 GM/30 ML CUP PO (21:20)
[2023-12-15] MEDS: Atorvastatin 40 MG TAB 80 MG PO (21:20)
[2023-12-15] MEDS: Sennosides/Docusate Sodium TAB 1 TAB PO (21:20)
[2023-12-16 07:33] VITALS: BP 129/72; PULSE 67; RESP 18; TEMP 36; O2SAT 93
[2023-12-16] MEDS: amLODIPine 5 MG TAB PO (07:51)
[2023-12-16] MEDS: Ticagrelor 90 MG TAB PO ×2 (07:52→21:27)
[2023-12-16] MEDS: Magnesium Oxide 400 MG TAB PO ×2 (07:54→21:27)
[2023-12-16] MEDS: Esomeprazole 40 MG CAPCR PO (07:54)
[2023-12-16] MEDS: Cholecalciferol (Vitamin D3) 1,000 UNIT TAB 1000 UNITS PO (07:55)
[2023-12-16] MEDS: Carvedilol 12.5 MG TAB PO (07:55)
[2023-12-16] MEDS: Gabapentin 800 MG TAB PO ×2 (07:55→21:27)
[2023-12-16] MEDS: Aspirin E.C. 81 MG TABEC PO (07:55)
[2023-12-16] MEDS: clonazePAM 0.5 MG TAB PO ×2 (07:56→21:27)
[2023-12-16] MEDS: Insulin Aspart 300 UNITS/3 ML PEN SC ×4 (07:57→17:58)
[2023-12-16] MEDS: Levothyroxine 112 MCG TAB PO (08:03)
--- NOTE | 2023-12-16 09:14 | PGE_ITS ---
Date of Service Date of service: 12/15/23 Time of Service: 12:00 Subjective Subjective Interval history since last seen: Patient was reported to have a cloudy urine and to be slightly more somnolent on the morning of 12/15/23. His michel catheter was exchanged, and he was started on empiric ceftriaxone (12/15/23) with urine C&S pending for a UTI. Objective Last Vital Signs Temp 36.0 C L 12/16/23 07:33 Pulse 67 12/16/23 07:33 Resp 18 12/16/23 07:33 BP 129/72 12/16/23 07:33 Pulse Ox 93 12/16/23 07:33 Laboratory Results - last 24 hr 12/15/23 10:30 Urine Color Yellow Urine Clarity Cloudy Urine pH >= 9.0 H Ur Specific [place] 1.020 Urine Protein 100 H Urine Ketones Trace H Urine Blood Moderate H Urine Nitrite Negative Urine Bilirubin Negative Urine Urobilinogen 1.0 H Ur Leukocyte Esterase Moderate H Urine RBC 10-20 H Urine WBC 20-50 H Ur Epithelial Cells Negative Urine Crystals Many Triple Phos Urine Bacteria Many Urine Casts Negative Urine Mucus Negative Ur Culture Indicated? Yes Urine Glucose Negative Time Spent with Patient Time Spent with Patient: <25 minutes Time was spent: obtaining and/or reviewing separately otained hiistory, ordering medications,tests, procedures, referring, communicating with other health technical healthcare consultant and indepentently interpreting results
[2023-12-16] MEDS: Normal Saline Flush 10 ML SYR IVP ×2 (09:25→21:28)
[2023-12-16] MEDS: Methadone Liquid 10 MG/ML 60 MG PO ×2 (09:49→21:27)
[2023-12-16] MEDS: cefTRIAXone 2 GM/50 ML BAG IVPB (11:41)
--- NOTE | 2023-12-16 16:04 | PTTR_ITS ---
Date of service: 12/16/23 Time of Service: 14:56 PT Notes Visit Reasons: Cerebrovascular accident Inpatient Physical Therapy Treatment Note [facility] Date: 12/16/23 PRECAUTIONS: Fall, standard, activity as tolerated. Hemiparitic, hemiplegic right side d/t hx CVA SUBJECTIVE: Patient appears to be asleep, wakes easily, appears confused at first. Eventually recognizes this clinician. Easy-going this date, quick to smile. OBJECTIVE: Supine in bed, agreeable to therapy.? PAIN: none reported except when patient asked this clinician to stretch right leg. VITALS: monitored by nursing staff? Therapeutic Activities ([id number]): Direct one-on-one instruction in dynamic activities to improve functional performance. ? BED MOBILITY/TRANSFERS? Rolling L/R: min assist of one with setup, verbal and visual cues for limb placement and sequencing. Supine-sit: min assist of one to move right leg out of bed, min assist of one for patient to pull himself up. Patient moves smoothly into sitting position and does not require any stabilizing to gain his balance. ? Sit-supine: min assist to maneuver right leg into bed. Verbal and visual cues for patient to move up in bed. ? Sit-stand: mod assist of one at gait belt from low bed, verbal and visual cues to push up from bed. ? Stand-sit: CGA ? Provided skilled cues and instruction on performance and technique throughout. Neuromuscular Re-education ([id number]): Activities that facilitate re-education of movement balance, posture, coordination, and proprioception or kinesthetic sense, requiring skilled tactile and verbal cues ? Exercises/techniques: * static sitting 3x2 minutes * seated reaching to all sides x4 * supported standing 2x60 seconds * terminal knee extensions RLE x10 ASSESSMENT:? patient tolerates therapy well. Seems pleased with his performance today. Smiles and says stronger, stronger while patting his left knee. PLAN: Continue global strengthening, neuro reeducation per plan of care until patient obtains safe discharge plan. TREATMENT CODE/TIME: 50 minutes beginning at 14:56
--- NOTE | 2023-12-16 16:26 | PDOC.STREC ---
Date of service: 12/16/23 Time of Service: 12:45 Speech Therapy Recommendations Report ST Recommendations: RIVERINE ASSAULT CRAFT CREWMAN visit attempted x2 this date. First attempt in morning, patient with nursing needs. Second attempt at 1240PM, patient with son/grandson present, singing along to music and declined RIVERINE ASSAULT CRAFT CREWMAN treatment. Brief education provided to patient's son re: goals of care/focus in therapy and encouraged ongoing participation in singing. Coding
[2023-12-16] MEDS: Atorvastatin 40 MG TAB 80 MG PO (21:27)
[2023-12-16] MEDS: ARIPiprazole 5 MG TAB PO (21:27)
[2023-12-16] MEDS: Sennosides/Docusate Sodium TAB 1 TAB PO (21:27)
[2023-12-16] MEDS: Insulin Glargine 300 UNITS/3 ML PEN 12 UNITS SC (21:28)
[2023-12-17] MEDS: Levothyroxine 112 MCG TAB PO (05:56)
[2023-12-17] MEDS: Levothyroxine 25 MCG TAB PO (05:56)
[2023-12-17 07:30] VITALS: BP 167/65; PULSE 77; RESP 16; TEMP 36.1; O2SAT 91
--- NOTE | 2023-12-17 08:38 | OT.INTREAT ---
Occupational Therapy Notes Occupational Therapy Inpatient Treatment Note Date: 12/17/23 PRECAUTIONS: Fall, Contact, Full SUBJECTIVE: Pt was in good spirits today and receptive to OT coming in for session. He was alert but notes soreness when asked about his UE. OBJECTIVE: PAIN: pain in (R) UE with AROM Manual Therapy [id number]: OT performed PROM to pts (R) UE at the digits, MP, IP and DIP joints, radial ulnar joints, -carpal joints. Then with arm in the extended position, OT performed PROM to pts digits into flexion, wrist into flexion and extension and forearm which was sore for pt. PROM performed to decrease high risk of contractures and throughout. PNF modified patterns performed to (R) UE, Pt has increased pain with crossing midline, UE above elbow and to the thigh. OT then performed retrograd emobilization throughout the (R) UE for edema management and throughout. OT will continue to monitor pts response to todays session. PLAN: Progress pt as symptoms allow to decreased risk of contractures and improve functional (I). TREATMENT CODES/TIME: [id number], 25 minutes Sara Cantu OTR/L [facility] [place], [place]
[2023-12-17] MEDS: Normal Saline Flush 10 ML SYR IVP ×3 (08:41→21:09)
[2023-12-17] MEDS: Methadone Liquid 10 MG/ML 60 MG PO ×2 (08:42→21:09)
[2023-12-17] MEDS: Cholecalciferol (Vitamin D3) 1,000 UNIT TAB 1000 UNITS PO (08:43)
[2023-12-17] MEDS: Magnesium Oxide 400 MG TAB PO ×2 (08:43→21:08)
[2023-12-17] MEDS: clonazePAM 0.5 MG TAB PO ×2 (08:43→21:08)
[2023-12-17] MEDS: amLODIPine 5 MG TAB PO (08:43)
[2023-12-17] MEDS: Gabapentin 800 MG TAB PO ×2 (08:43→21:08)
[2023-12-17] MEDS: Carvedilol 12.5 MG TAB PO (08:43)
[2023-12-17] MEDS: Aspirin E.C. 81 MG TABEC PO (08:44)
[2023-12-17] MEDS: Ticagrelor 90 MG TAB PO ×2 (08:44→21:08)
[2023-12-17] MEDS: Esomeprazole 40 MG CAPCR PO (08:44)
[2023-12-17] MEDS: Insulin Aspart 300 UNITS/3 ML PEN SC ×6 (09:15→17:57)
[2023-12-17] MEDS: Normal Saline 500 ML 30 ML IV (12:08)
[2023-12-17] MEDS: cefTRIAXone 2 GM/50 ML BAG IVPB (12:08)
--- NOTE | 2023-12-17 15:59 | PT.INNT ---
PT Notes Visit Reasons: Cerebrovascular accident pt very lethargic today, in bed, was able to get pt to wake up multiple times wit pt physically shaking his head and verbalizing no in between arousal.
--- NOTE | 2023-12-17 16:23 | NT_ITS ---
Date of service: 12/17/23 Time of Service: 14:26 PT Notes Visit Reasons: Cerebrovascular accident Patient appears somnolent, has difficulty opening and then focusing his eyes. Drifts back to sleep repeatedly while this clinician attempts to engage him. This clinician decides to return closer to dinner, at 16:18 patient is re- approached and is still too tired to engage. RONDA and FREYA Morton notified.
[2023-12-17 21:00] VITALS: PULSE 68; O2SAT 97
[2023-12-17] MEDS: Sennosides/Docusate Sodium TAB 1 TAB PO (21:08)
[2023-12-17] MEDS: ARIPiprazole 5 MG TAB PO (21:08)
[2023-12-17] MEDS: Acetaminophen 325 MG TAB 650 MG PO (21:08)
[2023-12-17] MEDS: Atorvastatin 40 MG TAB 80 MG PO (21:08)
[2023-12-17] MEDS: Insulin Glargine 300 UNITS/3 ML PEN 12 UNITS SC (21:10)
[2023-12-18] MEDS: Levothyroxine 112 MCG TAB PO (06:38)
[2023-12-18] MEDS: Levothyroxine 25 MCG TAB PO (06:38)
[2023-12-18 07:16] VITALS: BP 128/62; PULSE 67; RESP 16; TEMP 36.4; O2SAT 93
[2023-12-18] MEDS: Methadone Liquid 10 MG/ML 60 MG PO (08:36)
[2023-12-18] MEDS: Insulin Aspart 300 UNITS/3 ML PEN SC ×5 (08:36→17:48)
[2023-12-18] MEDS: Cholecalciferol (Vitamin D3) 1,000 UNIT TAB 1000 UNITS PO (08:37)
[2023-12-18] MEDS: Magnesium Oxide 400 MG TAB PO ×2 (08:37→21:51)
[2023-12-18] MEDS: Ticagrelor 90 MG TAB PO ×2 (08:37→21:51)
[2023-12-18] MEDS: Esomeprazole 40 MG CAPCR PO (08:37)
[2023-12-18] MEDS: amLODIPine 5 MG TAB PO (08:38)
[2023-12-18] MEDS: clonazePAM 0.5 MG TAB PO ×2 (08:38→21:50)
[2023-12-18] MEDS: Aspirin E.C. 81 MG TABEC PO (08:38)
[2023-12-18] MEDS: Carvedilol 12.5 MG TAB PO (08:39)
[2023-12-18] MEDS: Gabapentin 800 MG TAB PO ×2 (08:39→21:51)
[2023-12-18] MEDS: Normal Saline Flush 10 ML SYR IVP ×3 (08:41→21:52)
--- NOTE | 2023-12-18 09:33 | PDOC.CMACT ---
Date of service: 12/18/23 Time of Service: 09:33 Care Management Activity Note Activity Note Text Activity Note Text: S/O:Ed continues to show slow improvement. He has been cooperative with working with PT , speech therapy and OT. Ed enjoys visiting with his family and hospital staff. He watches TV and listens to music. When music therapy and pet therapy are available, Ed enjoys their visits. He is unable to use items from the activity cart as his vision is somewhat impaired and he does not have use of his dominant hand. A: Ed is a 73 year old man admitted on 10/31/24 with pneumonia P:Ed's discharge plan is unclear at this time. He has agreed to transfer to a SNF however no bed offers have been received. Referrals were sent again to all of the SNFs in [place] and several border facilities in [place] and [place]. CM will follow and continue to assess for discharge concerns.
[2023-12-18] MEDS: cefTRIAXone 2 GM/50 ML BAG IVPB (12:49)
--- NOTE | 2023-12-18 16:01 | PT.INNT ---
Date of service: 12/18/23 Time of Service: 14:52 PT Notes Visit Reasons: Cerebrovascular accident Patient refused therapy today. RONDA Morfine aware. Patient is currently being treated for UTI, this clinician suspects that once that clears and patient is feeling better, he will be more agreeable to therapy. RONDA Morfine in agreement.
[2023-12-18] MEDS: Sennosides/Docusate Sodium TAB 1 TAB PO (21:50)
[2023-12-18] MEDS: Atorvastatin 40 MG TAB 80 MG PO (21:50)
[2023-12-18] MEDS: ARIPiprazole 5 MG TAB PO (21:50)
[2023-12-18] MEDS: Insulin Glargine 300 UNITS/3 ML PEN 12 UNITS SC (22:06)
[2023-12-18] MEDS: Methadone 10 MG TAB 60 MG PO (22:50)
[2023-12-18] MEDS: Acetaminophen 325 MG TAB 650 MG PO (22:51)
[2023-12-19 07:05] VITALS: BP 137/77; PULSE 65; RESP 14; TEMP 35.8; O2SAT 97
[2023-12-19] MEDS: Esomeprazole 40 MG CAPCR PO (07:40)
[2023-12-19] MEDS: Methadone Liquid 10 MG/ML 60 MG PO ×2 (08:19→20:18)
[2023-12-19] MEDS: Ticagrelor 90 MG TAB PO ×2 (08:20→20:18)
[2023-12-19] MEDS: Magnesium Oxide 400 MG TAB PO ×2 (08:20→20:17)
[2023-12-19] MEDS: Docusate Sodium 100 MG CAP 200 MG PO (08:21)
[2023-12-19] MEDS: Gabapentin 800 MG TAB PO ×2 (08:21→20:17)
[2023-12-19] MEDS: amLODIPine 5 MG TAB PO (08:21)
[2023-12-19] MEDS: Carvedilol 12.5 MG TAB PO (08:21)
[2023-12-19] MEDS: Aspirin E.C. 81 MG TABEC PO (08:21)
[2023-12-19] MEDS: Cholecalciferol (Vitamin D3) 1,000 UNIT TAB 1000 UNITS PO (08:22)
[2023-12-19] MEDS: Polyethylene Glycol 3350 17 GM PACKET PO (08:22)
[2023-12-19] MEDS: clonazePAM 0.5 MG TAB PO ×2 (08:22→21:25)
[2023-12-19] MEDS: Insulin Aspart 300 UNITS/3 ML PEN SC ×5 (09:14→17:45)
[2023-12-19] MEDS: Normal Saline Flush 10 ML SYR IVP ×2 (09:17→12:20)
--- NOTE | 2023-12-19 11:37 | PDOC.STREC ---
Date of service: 12/19/23 Time of Service: 11:15 Speech Therapy Recommend[address] Report ST Recommendations: RISK ASSESSMENT CONSULTANT treatment session attempted. Patient received asleep in bed, easily awoken though lethargic and confused. Patient holding up hand as if holding tv remote/pressing button, though no remote in hand or tv on. Attempted receptive language exercise from last visit (holding up two pieces of paper, verbalizing each word x2, and asking Ed a question- Is it November or February?) Ed was not able to participate d/t confusion and eventually closed eyes. Nursing aware of patient status in the setting of +UTI. RISK ASSESSMENT CONSULTANT will continue POC for communication therapy when patient better able to participate. Please continue aspiration precautions, copied below: SWALLOWING PRECAUTIONS: Patient is at high risk of aspiration and should receive close supervision assistance during PO, with strict precautions as outlined below. SOLIDS: 5-Minced & Moist Solids LIQUIDS: 0-Thin Liquids - via provale cup or ensure very small sip size and fully upright posture MEDICATIONS: Whole one at a time with sips liquid, or whole in applesauce/pudding Level of Assistance/Supervision: Close supervision/partial assist with trained staff/family for all PO intake Positioning and environment: PO intake only when awake/alert? Reduce auditory and/or visual distractions when eating [place] upright for all PO intake. Oral hygiene Before/after PO intake Using friction with toothbrush on all oral structures as tolerated Additional Safety Strategies: Small sips approx 10mL Small bites approx [id number] Coding
[2023-12-19] MEDS: cefTRIAXone 2 GM/50 ML BAG IVPB (12:20)
--- NOTE | 2023-12-19 14:44 | PTTR_ITS ---
Date of service: 12/19/23 Time of Service: 13:49 PT Notes Visit Reasons: Cerebrovascular accident Inpatient Physical Therapy Treatment Note [facility] Date: 12/19/23 PRECAUTIONS: Fall, standard, activity as tolerated. Right hemiplegia, hemiparesis d/t hx CVA SUBJECTIVE: Patient is asleep upon approach this afternoon, however he wakes easily, appears to recognize this clinician, and moves to push aside blankets and sit up. Appears more cognitively clear than he has recently. Speech still more impaired than it was 10-14 days ago. OBJECTIVE: Supine in bed. Riojas in place. Bed alarm in place. Agreeable to therapy. ? PAIN: none reported or observed VITALS: monitored by nursing staff. Therapeutic Activities ([id number]): Direct one-on-one instruction in dynamic activities to improve functional performance. ? BED MOBILITY/TRANSFERS? Rolling L/R: not assessed Supine-sit: very minimal assist via handhold for patient to pull up into a sitting position. ? Sit-supine: min assist to maneuver right leg into bed.? Sit-stand x4: mod-max assist of 1 at gait belt from low bed with left knee blocked? Stand-sit: min assist with verbal cues to control rate of descent. ? Provided skilled cues and instruction on performance and technique throughout. ASSESSMENT:? Patient suffered a significant set back with this most recent infection and his resulting time off from therapy, however, patient appears to be feeling more like himself today. Patient agreeable to working in the [facility] tomorrow with this clinician. PLAN: Continue global strengthening per plan of care until safe discharge plan is achieved. TREATMENT CODE/TIME: 21 minutes beginning at 13:49
[2023-12-19] MEDS: ARIPiprazole 5 MG TAB PO (20:17)
[2023-12-19] MEDS: Sennosides/Docusate Sodium TAB 1 TAB PO (20:17)
[2023-12-19] MEDS: Atorvastatin 40 MG TAB 80 MG PO (20:18)
[2023-12-19] MEDS: Insulin Glargine 300 UNITS/3 ML PEN 12 UNITS SC (21:25)
[2023-12-20] MEDS: Levothyroxine 112 MCG TAB PO (05:09)
[2023-12-20] MEDS: Levothyroxine 25 MCG TAB PO (05:09)
[2023-12-20] MEDS: Methadone Liquid 10 MG/ML 60 MG PO ×2 (08:23→19:46)
[2023-12-20] MEDS: Esomeprazole 40 MG CAPCR PO (08:23)
[2023-12-20] MEDS: Polyethylene Glycol 3350 17 GM PACKET PO (08:23)
[2023-12-20] MEDS: Insulin Aspart 300 UNITS/3 ML PEN SC ×6 (08:25→17:34)
[2023-12-20] MEDS: Cholecalciferol (Vitamin D3) 1,000 UNIT TAB 1000 UNITS PO (08:28)
[2023-12-20] MEDS: Carvedilol 12.5 MG TAB PO (08:28)
[2023-12-20] MEDS: Magnesium Oxide 400 MG TAB PO ×2 (08:28→22:35)
[2023-12-20] MEDS: Aspirin E.C. 81 MG TABEC PO (08:29)
[2023-12-20] MEDS: Gabapentin 800 MG TAB PO ×2 (08:29→20:00)
[2023-12-20] MEDS: Ticagrelor 90 MG TAB PO ×2 (08:29→19:46)
[2023-12-20] MEDS: Docusate Sodium 100 MG CAP 200 MG PO (08:29)
[2023-12-20] MEDS: clonazePAM 0.5 MG TAB PO ×2 (08:29→22:35)
[2023-12-20] MEDS: amLODIPine 5 MG TAB PO (08:29)
[2023-12-20] MEDS: Normal Saline Flush 10 ML SYR IVP ×3 (08:30→22:35)
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
[2023-12-20] MEDS: cefTRIAXone 2 GM/50 ML BAG IVPB (11:25)
--- NOTE | 2023-12-20 13:11 | OTTR_ITS ---
Occupational Therapy Notes Occupational Therapy Inpatient Treatment Note Date: 12/20/23 PRECAUTIONS: Fall, Contact, Full SUBJECTIVE: Pt says ok to OT when asked if he is okay with skilled OT services today. OBJECTIVE: PAIN: pain in (R) UE with AROM Manual Therapy [id number]: OT performed PROM to pts (R) UE at the digits, MP, IP and DIP joints, radial ulnar joints, -carpal joints. Then with arm in the extended position, OT performed PROM to pts digits into flexion, wrist into flexion and extension and forearm which was sore for pt. PROM performed to decrease high risk of contractures and throughout the UE which is increased edema. PNF modified patterns performed to (R) UE, Pt has increased pain with crossing midline, UE above elbow and to the thigh. OT then performed retrograde mobilization throughout the (R) UE for edema management and throughout. OT performed Passive functional movement patterns throughout the UE to increased ROM. OT will continue to monitor pts response to todays session. PLAN: Progress pt as symptoms allow to decreased risk of contractures and improve functional (I). TREATMENT CODES/TIME: 92374, 20 minutes Sara Cantu OTR/L [facility] [place], [place]
[2023-12-20 14:11] VITALS: BP 115/48; PULSE 58; RESP 18; TEMP 35.5; O2SAT 97
[2023-12-20 14:29] LABS: Bilirubin Negative (Negative); Blood Large (Negative); Clarity Sl Cloudy (Clear); Glucose Negative (Negative); Ketones Trace mg/dL (Negative); Leukocyte Esterase Negative (Negative); Nitrite Negative (Negative); Specific Gravity >= 1.030 (1.005-1.025); Urobilinogen 0.2 mg/dL (Up to 0.2); pH 5.5 (5-8)
--- NOTE | 2023-12-20 14:34 | PT.INTREAT ---
Date of service: 12/20/23 Time of Service: 13:25 PT Notes Visit Reasons: Cerebrovascular accident Inpatient Physical Therapy Treatment Note [facility] Date: 12/20/23 PRECAUTIONS: Fall, standard, activity as tolerated. Right hemiplegia / hemiparesis d/t hx CVA. SUBJECTIVE: Patient is asleep when this clinician enters, takes extra time to come to full alertness as compared to yesterday. Declines therapy, once reminded that he agreed to come to the gym today he states he is too tired but agrees to bed level exercises. OBJECTIVE: Supine in bed. Riojas in place. Agreeable to therapy. ? PAIN: none reported or observed. VITALS: monitored by nursing staff. Therapeutic Activities ([id number]): Direct one-on-one instruction in dynamic activities to improve functional performance. ? BED MOBILITY/TRANSFERS? Rolling L/R: not assessed Supine-sit: Patient able to maneuver right leg out of bed independently. Min assist to keep right arm forward and in a good position. Patient grabs EOB to pull himself up into sitting. ? Sit-supine: Verbal and tactile cues to scoop right leg up with left leg, min assist to maneuver both legs into bed. Patient able to scoot up in bed independently. ? Sit-stand: Refused. ? Patient also participates in bridges 2x5, which he states are hard, as well as short arc quads with the left leg. States right leg is unable. Provided skilled cues and instruction on performance and technique throughout. ASSESSMENT:? Patient appears fatigued, states that he is tired from morning therapy session. Agreeable to be seen again on Saturday. PLAN: Continue global strengthening, neuro reeducation per plan of care until patient is cleared for discharge and obtains a safe discharge plan. TREATMENT CODE/TIME: 15 minutes beginning at 13:25
[2023-12-20 14:41] LABS: Bacteria Moderate HPF (Negative); Crystals Negative HPF (Negative); Epithelial Cells Few HPF (Negative); Other Cells Moderate Yeast (Negative); RBC 20-50 HPF (0-2)
[2023-12-20 14:42] LABS: C & S Indicated? Yes; Casts Negative LPF (Negative); Mucus Trace (Negative)
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
[2023-12-20] MEDS: ARIPiprazole 5 MG TAB PO (22:35)
[2023-12-20] MEDS: Atorvastatin 40 MG TAB 80 MG PO (22:35)
[2023-12-20] MEDS: Insulin Glargine 300 UNITS/3 ML PEN 12 UNITS SC (22:36)
[2023-12-21] MEDS: Levothyroxine 25 MCG TAB PO (06:26)
[2023-12-21] MEDS: Levothyroxine 112 MCG TAB PO (06:26)
[2023-12-21 06:54] LABS: Abs Immature Grans 0.01 10^3/uL (0.0-0.06); Absolute Basophil Count 0.07 10^3/uL (0.0-0.2); Absolute Eosinophil Count 0.69 10^3/uL (0.0-0.7); Absolute Lymphocyte Count 1.42 10^3/uL (1.2-3.4); Absolute Monocyte Count 0.49 10^3/uL (0.1-0.8); Absolute Neutrophil Count 2.64 10^3/uL (1.2-6.7); Basophils % 1.3; HCT 34.9 % (40.0-50.0); HGB 11.7 g/dL (13.5-17.5); Immature Grans % 0.2; Lymphocytes % 26.7; MCH 29.8 pg (27.0-33.0); MCHC 33.5 % (32.0-36.0); MCV 89 fL (80-95); MPV 10.6 fL (8.0-11.0); Monocytes % 9.2; Neutrophils % 49.6; Platelet Count 216 10^3/uL (130-400); RBC 3.92 10^6/uL (4.36-5.78); RDW 13.2 % (11.8-14.1); WBC 5.32 10^3/uL (4.4-10.8)
[2023-12-21 07:15] LABS: Anion Gap 7.3 mmol/L (3-11); BUN 26 mg/dL (7-18); CO2 27.7 mmol/L (21.0-32.0); CREATININE 0.8 mg/dL (0.70-1.30); Calcium 9.2 mg/dL (8.5-10.1); Chloride 108 mmol/L (98-107); Estimated GFR 94.62 (mL/min/1.73m2); Glucose 194 mg/dL (74-106); Potassium 3.8 mmol/L (3.5-5.1); Sodium 143 mmol/L (136-145)
[2023-12-21 07:20] VITALS: BP 132/65; PULSE 70; RESP 16; TEMP 36.4; O2SAT 94
[2023-12-21] MEDS: Ticagrelor 90 MG TAB PO ×2 (08:23→20:27)
[2023-12-21] MEDS: Normal Saline Flush 10 ML SYR IVP ×2 (08:23→22:38)
[2023-12-21] MEDS: Esomeprazole 40 MG CAPCR PO (08:23)
[2023-12-21] MEDS: Methadone Liquid 10 MG/ML 60 MG PO ×2 (08:23→20:29)
[2023-12-21] MEDS: clonazePAM 0.5 MG TAB PO ×2 (08:23→20:27)
[2023-12-21] MEDS: Magnesium Oxide 400 MG TAB PO ×2 (08:24→20:27)
[2023-12-21] MEDS: Cholecalciferol (Vitamin D3) 1,000 UNIT TAB 1000 UNITS PO (08:24)
[2023-12-21] MEDS: Gabapentin 800 MG TAB PO ×2 (08:24→20:28)
[2023-12-21] MEDS: Aspirin E.C. 81 MG TABEC PO (08:24)
[2023-12-21] MEDS: amLODIPine 5 MG TAB PO (08:24)
[2023-12-21] MEDS: Carvedilol 12.5 MG TAB PO (08:24)
[2023-12-21] MEDS: Docusate Sodium 100 MG CAP 200 MG PO (08:24)
[2023-12-21] MEDS: Polyethylene Glycol 3350 17 GM PACKET PO (08:24)
[2023-12-21] MEDS: Insulin Aspart 300 UNITS/3 ML PEN SC ×2 (09:27)
--- NOTE | 2023-12-21 17:22 | NUR.NOTE ---
Nursing Note: Pt bladder scanned at 14:46 for 617. Pt refusing to be straight cathed or use the urinal at this time. ENGINEER notifed and aware of the situation; stated to let him refuse and it will come out when it needs to.
[2023-12-21] MEDS: Atorvastatin 40 MG TAB 80 MG PO (20:27)
[2023-12-21] MEDS: Sennosides/Docusate Sodium TAB 1 TAB PO (20:28)
[2023-12-21] MEDS: ARIPiprazole 5 MG TAB PO (20:28)
[2023-12-21] MEDS: Insulin Glargine 300 UNITS/3 ML PEN 12 UNITS SC (22:14)
[2023-12-22] MEDS: Acetaminophen 325 MG TAB 650 MG PO ×2 (00:39→23:02)
[2023-12-22] MEDS: Levothyroxine 112 MCG TAB PO (05:46)
[2023-12-22] MEDS: Levothyroxine 25 MCG TAB PO (05:47)
[2023-12-22] MEDS: Polyethylene Glycol 3350 17 GM PACKET PO (07:30)
[2023-12-22] MEDS: Docusate Sodium 100 MG CAP 200 MG PO (07:30)
[2023-12-22] MEDS: Esomeprazole 40 MG CAPCR PO (07:31)
[2023-12-22] MEDS: Magnesium Oxide 400 MG TAB PO ×2 (07:31→19:51)
[2023-12-22] MEDS: amLODIPine 5 MG TAB PO (07:31)
[2023-12-22] MEDS: Normal Saline Flush 10 ML SYR IVP ×2 (07:32→19:59)
[2023-12-22] MEDS: Ticagrelor 90 MG TAB PO ×2 (07:32→19:51)
[2023-12-22] MEDS: Methadone Liquid 10 MG/ML 60 MG PO ×2 (07:32→19:52)
[2023-12-22] MEDS: Aspirin E.C. 81 MG TABEC PO (07:33)
[2023-12-22] MEDS: Cholecalciferol (Vitamin D3) 1,000 UNIT TAB 1000 UNITS PO (07:33)
[2023-12-22] MEDS: Gabapentin 800 MG TAB PO ×2 (07:34→19:51)
[2023-12-22] MEDS: Carvedilol 12.5 MG TAB PO (07:34)
[2023-12-22] MEDS: clonazePAM 0.5 MG TAB PO ×2 (07:34→19:51)
[2023-12-22] MEDS: Insulin Aspart 300 UNITS/3 ML PEN SC ×2 (08:52)
[2023-12-22] MEDS: Glucose Oral Gel 15 GM/37.5 GM TUBE PO (13:08)
[2023-12-22] MEDS: Sennosides/Docusate Sodium TAB 1 TAB PO (19:51)
[2023-12-22] MEDS: ARIPiprazole 5 MG TAB PO (22:03)
[2023-12-22] MEDS: Atorvastatin 40 MG TAB 80 MG PO (22:03)
[2023-12-22] MEDS: Insulin Glargine 300 UNITS/3 ML PEN 12 UNITS SC (22:13)
[2023-12-22 23:54] VITALS: BP 126/72; PULSE 79; RESP 20; TEMP 36.9; O2SAT 94
[2023-12-23] MEDS: Levothyroxine 25 MCG TAB PO (06:03)
[2023-12-23] MEDS: Levothyroxine 112 MCG TAB PO (06:03)
[2023-12-23 07:20] VITALS: BP 124/66; PULSE 71; RESP 20; TEMP 36.3; O2SAT 93
[2023-12-23] MEDS: Insulin Aspart 300 UNITS/3 ML PEN SC ×3 (08:51→12:46)
[2023-12-23] MEDS: Normal Saline Flush 10 ML SYR IVP ×2 (08:52→20:52)
[2023-12-23] MEDS: Polyethylene Glycol 3350 17 GM PACKET PO (08:52)
[2023-12-23] MEDS: Methadone Liquid 10 MG/ML 60 MG PO ×2 (08:52→20:49)
[2023-12-23] MEDS: Carvedilol 12.5 MG TAB PO (08:53)
[2023-12-23] MEDS: Gabapentin 800 MG TAB PO ×2 (08:53→20:48)
[2023-12-23] MEDS: Magnesium Oxide 400 MG TAB PO ×2 (08:53→20:48)
[2023-12-23] MEDS: Aspirin E.C. 81 MG TABEC PO (08:53)
[2023-12-23] MEDS: amLODIPine 5 MG TAB PO (08:53)
[2023-12-23] MEDS: Esomeprazole 40 MG CAPCR PO (08:54)
[2023-12-23] MEDS: Docusate Sodium 100 MG CAP 200 MG PO (08:54)
[2023-12-23] MEDS: clonazePAM 0.5 MG TAB PO ×2 (08:54→20:48)
[2023-12-23] MEDS: Ticagrelor 90 MG TAB PO ×2 (08:54→20:48)
[2023-12-23] MEDS: Cholecalciferol (Vitamin D3) 1,000 UNIT TAB 1000 UNITS PO (08:54)
--- NOTE | 2023-12-23 11:29 | W.PM.PROGNOT ---
Date of Service Date of service: 12/23/23 Time of Service: Assessment and Plan Assessment and plan (1) Benign prostatic hyperplasia with urinary retention: Status: Acute Assessment and plan: Initially admitted with urinary incontinence then developed retention for which a michel catheter was placed.No increase in Cr observed in hisotry. Later developed a UTI which was treated with ceftriaxone with the michel in place. Michel discontinued Voiding trials intiated Post-void residual ordered PSA ordered Monitoring BMP for Cr elevation Tamsulosin started Urology consult ordered Objective Last Vital Signs Temp 36.3 C L 12/23/23 07:20 Pulse 71 12/23/23 07:20 Resp 20 12/23/23 07:20 BP 124/66 12/23/23 07:20 Pulse Ox 93 12/23/23 07:20 Time Spent with Patient Time Spent with Patient: 35-49 minutes Time was spent: preparing to see the patient(eg.review tests), obtaining and/or reviewing separately otained hiistory, ordering medications,tests, procedures, referring, communicating with other health healthcare consulting manager, indepentently interpreting results, counseling the patient and care coordination
[2023-12-23] MEDS: Tamsulosin 0.4 MG CAPCR PO (11:36)
--- NOTE | 2023-12-23 14:24 | SPP_ITS ---
Date of service: 12/23/23 Time of Service: 12:15 Subjective Subjective Patient seen sitting upright in bed. He was asleep, recently finished noon meal tray when CHAIN LINK FENCE INSTALLER arrived. Patient awoke easily and agreeable to treatment. He appeared fatigued though closer to baseline with regards to cognition, following recent increase in confusion last week due to UTI. Objective Receptive Language - Field of 2 Option Questions: Clinician held up two pieces of paper (one in each hand) introducing verbally and repeating each x1 =3/6 accuracy Is it Winter or Summer? + Are we in [facility] or [place]? + Is your birthday in May or February? - Did you eat breakfast or lunch? - Is today Saturday or ? + How old are you: 73 or 66? - Expressive Language/Word Repetition: Discontinued after first attempt today due to patient fatigue Assessment Ed was seen today for communication treatment. Patient received asleep but easily awoken and agreeable to CHAIN LINK FENCE INSTALLER treatment. Session focused on receptive language exercise with goal of aiding family in best way to ask Ed questions. He achieved 50% accuracy with tasks today- see responses above. Ed's facial expressions indicated confusion/guessing at times, especially when asked When is your birthday? and How old are you?. On contrary, for other questions (What town are we in?, What day is it?) he answered immediately and decisively. Overall, his receptive aphasia remains at least moderate in severity and negatively impacts comprehension, especially when the context is unknown. CHAIN LINK FENCE INSTALLER will continue to target functional communication as well as family/staff education on how to optimize communication with Ed. Ultimately, yes/no questions remain unreliable (chance level or below) despite trials of written modalities with varying font size, colors, and symbols. Field of 2 questions may be slightly more successful than yes/no questions in light of suspected interchange specifically with the words 'yes' and 'no' as well as the benefit of written/verbal paired modality. However Ed's success with this format was poor today (50%). *Ed remains heightened risk for aspiration, see ongoing precautions below. FURTHER INPATIENT CHAIN LINK FENCE INSTALLER SERVICES: Patient to be followed on unit for trial treatment stimulability with communication and monitoring dysphagia needs - 2-4x weekly. DISCHARGE RECOMMENDATIONS: Recommend CHAIN LINK FENCE INSTALLER services at SNF vs Home Health CHAIN LINK FENCE INSTALLER at least for initial strategy training with staff for communication and dysphagia. DIET RECOMMENDATIONS: Patient is at high risk of aspiration and should receive close supervision assistance during PO intake, with strict precautions as outlined below. SOLIDS: 5-Minced & Moist Solids LIQUIDS: 0-Thin Liquids - via provale cup or ensure very small sip size and fully upright posture MEDICATIONS: Whole one at a time with sips liquid, or whole in applesauce/pudding Level of Assistance/Supervision: Close supervision/partial assist with trained staff/family for all PO intake Positioning and environment: PO intake only when awake/alert? Reduce auditory and/or visual distractions when eating [place] upright for all PO intake. Oral hygiene Before/after PO intake Using friction with toothbrush on all oral structures as tolerated Additional Safety Strategies: Small sips approx 10mL Small bites approx [id number] COMMUNICATION RECOMMENDATIONS: Comprehension: Reduce length of sentences and complexity of words Utilize demonstration and gesture as much as possible Provide visual aids/resources whenever possible Offer simplified written text whenever possible for patient to review Expression: Allow patient additional time to express self and/or multiple attempts to find word(s) For word finding difficulties during conversation: Provide patient with visual aids (smallest possible field of choice) and allow him to make a choice using pointing or repetition Provide assistance with reading text aloud, encouraging spoken repetition (especially of multisyllabic words) Encourage use of relevant gestures to enhance expression Goals: Custodial Goals: Patient will remain free from aspiration-related illness, malnutrition, and dehydration. Patient/caregivers will verbalize comprehension of education provided re: dx, strategies to maximize functioning, and role of ST. Short Term Goals: Patient will participate in ongoing diagnostic treatment addressing communication. Patient will tolerate Minced/Moist Diet and Thin liquids without overt s/s aspiration across 2/2 visits. Patient/caregivers will be independent with safe swallow/risk management strategies. Patient has moved rooms since last visit with this clinician - added recommendations to white board for nursing and reminded them of his aspiration precautiosn. Patient will repeat 10 trained functional single 1-syllable words given direct model from clinician with at least 80% accuracy x1-2 sessions. Training list: Food, pain, drink, cup, pain, hand, spoon, Juice, Ed, No, Yes Coding CPT Codes ORAL FUNCTION THERAPY - 22729 ([id number]) Coding CPT Codes SPEECH/HEARING THERAPY - 42794 ([id number]) Additional Codes Date of Service (27003) Date of service: 12/23/23
[2023-12-23 14:28] LABS: Anion Gap 7.6 mmol/L (3-11); BUN 27 mg/dL (7-18); CO2 29.4 mmol/L (21.0-32.0); CREATININE 0.9 mg/dL (0.70-1.30); Calcium 9.4 mg/dL (8.5-10.1); Chloride 106 mmol/L (98-107); Estimated GFR 91.31 (mL/min/1.73m2); Glucose 152 mg/dL (74-106); Sodium 143 mmol/L (136-145)
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
--- NOTE | 2023-12-23 15:48 | PTTR_ITS ---
Date of service: 12/23/23 Time of Service: 15:27 PT Notes Visit Reasons: Cerebrovascular accident Inpatient Physical Therapy Treatment Note [facility] Date: 12/23/23 PRECAUTIONS: Fall, standard, activity as tolerated. Left hemiplegia / hemiparesis d/t hx CVA SUBJECTIVE: Patient appears frustrated. Expresses that he is attempting to urinate in a hand-held urinal, without success. OBJECTIVE: Patient supine in bed, continuously adjusting a handheld urinal against several pillows propping up his legs. ? PAIN: Patient expresses discomfort due to feeling the urge to urinate and being unable to do so. VITALS: monitored by nursing staff. ? ? BED MOBILITY/TRANSFERS? Rolling L/R: not assessed Supine-sit: min assist of one via handhold for patient to pull himself up.? Sit-supine: SBA? Neuromuscular Re-education ([id number]): Activities that facilitate re-education of movement balance, posture, coordination, and proprioception or kinesthetic sense, requiring skilled tactile and verbal cues ? Exercises/techniques: * unsupported static sitting EOB * sitting with reaching activity (LOB noted x3) * unsupported sitting with feedforward anterior/posterior deviations 3x10 At this point patient declines to participate further. When this clinician asks whether he is uncomfortable he answers yes, when this clinician offers to go get the nurse who might catheterize him he agrees. MAGDY Mock notified. ASSESSMENT:? Patient tolerates therapy well, still struggles with dynamic sitting balance. PLAN: Continue global strengthening and neuro-reeducation per plan of care until patient obtains safe discharge plan. TREATMENT CODE/TIME: 19 minutes beginning at 15:27.
[2023-12-23] MEDS: Sennosides/Docusate Sodium TAB 1 TAB PO (20:49)
[2023-12-23] MEDS: ARIPiprazole 5 MG TAB PO (20:50)
[2023-12-23] MEDS: Atorvastatin 40 MG TAB 80 MG PO (20:50)
[2023-12-23] MEDS: Insulin Glargine 300 UNITS/3 ML PEN 12 UNITS SC (22:39)
[2023-12-23 22:50] LABS: PSA, Diagnostic 0.3 ng/mL (<=6.5)
[2023-12-24] MEDS: Levothyroxine 25 MCG TAB PO (06:35)
[2023-12-24] MEDS: Levothyroxine 112 MCG TAB PO (06:35)
[2023-12-24 07:25] VITALS: BP 136/63; PULSE 66; RESP 16; TEMP 36.4; O2SAT 98
[2023-12-24] MEDS: Normal Saline Flush 10 ML SYR IVP ×2 (07:59→20:12)
[2023-12-24] MEDS: Methadone Liquid 10 MG/ML 60 MG PO ×2 (07:59→20:58)
[2023-12-24] MEDS: Ticagrelor 90 MG TAB PO ×2 (08:00→20:12)
[2023-12-24] MEDS: Tamsulosin 0.4 MG CAPCR PO (08:00)
[2023-12-24] MEDS: Polyethylene Glycol 3350 17 GM PACKET PO (08:00)
[2023-12-24] MEDS: Esomeprazole 40 MG CAPCR PO (08:00)
[2023-12-24] MEDS: Docusate Sodium 100 MG CAP 200 MG PO (08:00)
[2023-12-24] MEDS: Magnesium Oxide 400 MG TAB PO ×2 (08:00→20:12)
[2023-12-24] MEDS: Cholecalciferol (Vitamin D3) 1,000 UNIT TAB 1000 UNITS PO (08:00)
[2023-12-24] MEDS: Carvedilol 12.5 MG TAB PO (08:00)
[2023-12-24] MEDS: Gabapentin 800 MG TAB PO ×2 (08:01→20:12)
[2023-12-24] MEDS: amLODIPine 5 MG TAB PO (08:01)
[2023-12-24] MEDS: Aspirin E.C. 81 MG TABEC PO (08:01)
[2023-12-24] MEDS: clonazePAM 0.5 MG TAB PO ×2 (08:01→20:11)
[2023-12-24] MEDS: Insulin Aspart 300 UNITS/3 ML PEN SC ×5 (08:12→17:53)
--- NOTE | 2023-12-24 08:57 | W.PM.PROGNOT ---
Date of Service Date of service: 12/24/23 Time of Service: 08:57 Assessment and Plan Assessment and plan (1) Benign prostatic hyperplasia with urinary retention: Status: Acute Assessment and plan: Conitnue voiding trials Q4 hours with post void residuals Continue PRN straight cath with bladder scans Continue flomax PSA pending Cr is stable Urology consult completed by Dr. Tran, please read notes: could have bladder outlet obstruction impacting his ability to empty his bladder tamsulosin seems like a reasonable idea Intermittent catheterization is generally our preferred management Treating this general indwelling cath would likely lead to recurrent episodes of infection/sepsis. Objective Last Vital Signs Temp 36.4 C L 12/24/23 07:25 Pulse 66 12/24/23 07:25 Resp 16 12/24/23 07:25 BP 136/63 12/24/23 07:25 Pulse Ox 98 12/24/23 07:25 Laboratory Results - last 24 hr 12/23/23 14:05 Sodium 143 Potassium 4.0 Chloride 106 Carbon Dioxide 29.4 Anion Gap 7.6 BUN 27 H Creatinine 0.9 Est GFR (CKD-EPI 2020) 91.31 Glucose 152 H Calcium 9.4 Time Spent with Patient Time Spent with Patient: 25-34 minutes Time was spent: preparing to see the patient(eg.review tests), ordering medications,tests, procedures, referring, communicating with other health director of health care marketing and indepentently interpreting results
--- NOTE | 2023-12-24 11:05 | OT.INNT ---
Occupational Therapy Notes 12/24/23 Pt denied OT services today. Progress note due tomorrow. Sara Cantu, OTR/L
--- NOTE | 2023-12-24 14:45 | PT.INNT ---
Date of service: 12/24/23 Time of Service: 13:15 PT Notes Visit Reasons: Cerebrovascular accident Patient refuses physical therapy treatment this date at 13:15, agreeable to this clinician coming back in an hour or so. Patient refuses again at 14:41. RONDA Castillo notified.
[2023-12-24] MEDS: Sennosides/Docusate Sodium TAB 1 TAB PO (20:11)
[2023-12-24] MEDS: Atorvastatin 40 MG TAB 80 MG PO (20:57)
[2023-12-24] MEDS: Insulin Glargine 300 UNITS/3 ML PEN 12 UNITS SC (20:57)
[2023-12-24] MEDS: ARIPiprazole 5 MG TAB PO (20:57)
[2023-12-25] MEDS: Levothyroxine 25 MCG TAB PO (06:25)
[2023-12-25] MEDS: Levothyroxine 112 MCG TAB PO (06:25)
[2023-12-25 07:57] VITALS: BP 135/62; PULSE 70; RESP 18; TEMP 36.2; O2SAT 94
--- NOTE | 2023-12-25 08:29 | OTPN_ITS ---
Occupational Therapy Notes Occupational Therapy Inpatient Progress Note Date: 12/25/23 Dates of Service: 12/18/23-12/25/23 PRECAUTIONS: Fall, Standard, full SUBJECTIVE: Pt was sitting in bed this morning. He is tired but shakes his head yes when OT arrives for session. OBJECTIVE: PAIN:c/o pain in (R) UE with PROM but no resting pain FUNCTIONAL MOBILITY/ADLS: Supine-sit: (I) Sit-supine: (I) BATHING: Not performed at todays session but noted prior pt is able to use his (L) UE to perform bathing but requires mod (A) as his (R) hemiparesis limits his ability to wash his (L) side of his body. DRESSING: Not performed today but noted throughout pts stay he does require (A) with dressing as he has difficulty with (B) hand use, crossing midline and has no AROM of his (R) UE. With min (A) he is able to [facility] gown, max (A) underwear, pants and socks GROOMING: With (L) UE he can touch his head and bring his hand to his mouth. Requires (A) with oral hygiene and fine motor control of holding toothbrush and comb when needed. TOILETING: NT EATING: with set up (A) although not performed at todays session pt is able to eat (I) with his (L) UE. He requires (A) with opening and closing containers and with plate management including cutting his food etx.. Manual Therapy [id number]: OT performed PROM to pts (R) UE at the digits, MP, IP and DIP joints, radial ulnar joints, -carpal joints. Then with arm in the extended position, OT performed PROM to pts digits into flexion, wrist into flexion and extension and forearm which was sore for pt. PROM performed to decrease high risk of contractures and throughout the UE which is increased edema. PNF modified patterns performed to (R) UE, Pt has increased pain with crossing midline, UE above elbow and to the thigh. OT then performed retrograde mobilization throughout the (R) UE for edema management and throughout. OT performed functional movement patterns throughout the UE to increased ROM but he is not able to perform this actively. OT will continue to monitor pts response to todays session. Goal of PROM is to decrease increased risk of contractures to the (R) UE. ASSESSMENT: GOALS (met/not met) 1. Oral/hair hygiene- Min (A) in seated position- progressing. 2. Dressing- Mod (A) UE, mod (A) LE- pt requires max (A) LE we will continue to work on techniques to increase his LE functional (I) 3. Bathing- seated with max (A) Set up/clean up (I) UE, mod (A) LE- (R) hemiparesis limits his ability to wash (L) UE 4. Toileting- on commode Mod (A)- progressing 5. Eating (I) - met 6. Pt will be able to tolerate PROM to his (R) UE to decrease contractures- met with soreness at times, but pt is receptive to this. PLAN: Pt would benefit from an outpatient orthosis for his (R) UE for at night. (R) UE should be supported on pillow throughout day to (A) With edema and OT will continue to work on maintence to decrease contractures of the (R) UE as well as increased functional (I) as pt does require (A) for his ADLs at this time. TREATMENT CODES/TIME: 73838, 20 minutes Sara Cantu OTR/[facility] [place], [place]
[2023-12-25] MEDS: Docusate Sodium 100 MG CAP 200 MG PO (08:35)
[2023-12-25] MEDS: Cholecalciferol (Vitamin D3) 1,000 UNIT TAB 1000 UNITS PO (08:35)
[2023-12-25] MEDS: Carvedilol 12.5 MG TAB PO (08:35)
[2023-12-25] MEDS: Tamsulosin 0.4 MG CAPCR PO (08:35)
[2023-12-25] MEDS: Aspirin E.C. 81 MG TABEC PO (08:35)
[2023-12-25] MEDS: Polyethylene Glycol 3350 17 GM PACKET PO (08:35)
[2023-12-25] MEDS: Methadone Liquid 10 MG/ML 60 MG PO ×2 (08:35→20:08)
[2023-12-25] MEDS: clonazePAM 0.5 MG TAB PO ×2 (08:35→20:08)
[2023-12-25] MEDS: Normal Saline Flush 10 ML SYR IVP ×2 (08:36→20:07)
[2023-12-25] MEDS: Gabapentin 800 MG TAB PO ×2 (08:36→20:07)
[2023-12-25] MEDS: Esomeprazole 40 MG CAPCR PO (08:36)
[2023-12-25] MEDS: Magnesium Oxide 400 MG TAB PO ×2 (08:36→20:07)
[2023-12-25] MEDS: Ticagrelor 90 MG TAB PO ×2 (08:36→20:07)
[2023-12-25] MEDS: amLODIPine 5 MG TAB PO (08:36)
[2023-12-25] MEDS: Insulin Aspart 300 UNITS/3 ML PEN SC ×6 (09:07→17:14)
--- NOTE | 2023-12-25 14:53 | PTTR_ITS ---
Date of service: 12/25/23 Time of Service: 14:11 PT Notes Visit Reasons: Cerebrovascular accident Inpatient Physical Therapy Treatment Note [facility] Date: 12/25/23 PRECAUTIONS: Fall, standard, activity as tolerated. L hemiplegia / hemiparesis d/t hx CVA. SUBJECTIVE: Patient watching tv when this clinician enters. Extra time required for processing, patient agrees to participate in therapy. Patient's speech initially very difficult to understand, this improves throughout the treatment session. OBJECTIVE: Supine in bed, pillow under Left arm, pillow under right trunk, pillow under bilateral knees. Agreeable to therapy, allows clinician to mute television. ? PAIN: none reported. VITALS: monitored by nursing staff. ? ? BED MOBILITY/TRANSFERS? Rolling L/R: not assessed Supine-sit: minimal assist of one by providing support behind shoulders, preventing patient from falling back. Patient maneuvers his own bilateral legs out of bed, uses left hand behind left leg to rock himself upright. ? Sit-supine: minimal assist to elevate trailing (right) leg into bed ? Sit-stand: mod assist of one at gait belt from slightly elevated bed (patient's knees ~85 degrees) with max verbal, visual, tactile cues to push up with left hand from beside patient on bed. ? Stand-sit: min assist to pivot hips into place as patient sits. Mod verbal cues to reach back for sitting surface go unacknowledged, unclear whether patient didn't hear, didn't understand, or chose to ignore. ? Bed-Chair: not assessed ? Chair-bed: not assessed ? Therapeutic Exercises (54160x9): Direct one-on-one instruction in therapeutic exercises to develop strength, endurance, range of motion and flexibility. ? Exercises: * sit to stand x6, mod assist * standing tolerance training, 15-40 seconds each time * terminal knee extensions right 3x5 Provided skilled instruction in proper exercise performance Provided skilled manual cues to facilitate proper muscle recruitment and/or form. Neuromuscular Re-education (77531e2): Activities that facilitate re-education of movement balance, posture, coordination, and proprioception or kinesthetic sense, requiring skilled tactile and verbal cues ? Exercises/techniques: * seated dynamic balance activity * seated static balance tolerance - verbal cues for patient to reposition feet * standing static balance training including vc for weight shift onto adán walker. ASSESSMENT:? Patient tolerates therapy well, cheers for himself after he is back in bed. Reports fatigue, appears to go to sleep at end of treatment session. Pillow under right arm, left trunk, bilateral legs replaced. TV volume restored, patient given TV remote. Call flynn in easy reach. PLAN: Continue global strengthening, neuro reeducation per plan of care to patient tolerance until patient obtains safe discharge plan. TREATMENT CODE/TIME: 38 minutes beginning at 14:10
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
[2023-12-25] MEDS: Lidocaine 2% Jelly 11 ML SYR UR (17:23)
--- NOTE | 2023-12-25 18:04 | SPP_ITS ---
Date of service: 12/25/23 Time of Service: 17:40 Subjective Ed was contacted in his room after dinner. He was agreeable, after some hesitation, to participate in session. Objective Expressive Language/Word Repetition: Straw: able to repeat 5x consistently after several direct models, also accurate building up to short sentence: Give me a cup Cup: able to repeat accurately/consistently at least 5x, but not able to repeat phrases containing the word Bible: direct model and phono-visual (labial sound) repeated 5x Hand: No accurate repetitions despite multi-domain cueing and repetitions. Remote: Approximation x5 demote Also noting frequent perseverations on the word straw in initial attempts at other words throughout session. Assessment Ed was seen today for communication treatment. He appeared in very good spirits this date, with minimal frustration when errors made in session (even laughing at times). He demonstrated variable but overall improving ability to repeat words and approximations, even working up to short sentences. Suspect variability between sessions dependent on fatigue, other medical fluctuations, and mood factors. STRIPING MACHINE OPERATOR will continue to target receptive and expressive language in short sessions. *Ed remains heightened risk for aspiration, see ongoing precautions below. FURTHER INPATIENT STRIPING MACHINE OPERATOR SERVICES: Patient to be followed on unit for trial treatment stimulability with communic ation and monitoring dysphagia needs - 2-4x weekly. DISCHARGE RECOMMENDATIONS: Recommend STRIPING MACHINE OPERATOR services at SNF vs Home Health STRIPING MACHINE OPERATOR at least for initial strategy training with staff for communication and dysphagia. DIET RECOMMENDATIONS: Patient is at high risk of aspiration and should receive close supervision assistance during PO intake, with strict precautions as outlined below. SOLIDS: 5-Minced & Moist Solids LIQUIDS: 0-Thin Liquids - via provale cup or ensure very small sip size and fully upright posture MEDICATIONS: Whole one at a time with sips liquid, or whole in applesauce/pudding Level of Assistance/Supervision: Close supervision/partial assist with trained staff/family for all PO intake Positioning and environment: PO intake only when awake/alert? Reduce auditory and/or visual distractions when eating [place] upright for all PO intake. Oral hygiene Before/after PO intake Using friction with toothbrush on all oral structures as tolerated Additional Safety Strategies: Small sips approx 10mL Small bites approx [id number] COMMUNICATION RECOMMENDATIONS: Comprehension: Reduce length of sentences and complexity of words Utilize demonstration and gesture as much as possible Provide visual aids/resources whenever possible Offer simplified written text whenever possible for patient to review Expression: Allow patient additional time to express self and/or multiple attempts to find word(s) For word finding difficulties during conversation: Provide patient with visual aids (smallest possible field of choice) and allow him to make a choice using pointing or repetition Provide assistance with reading text aloud, encouraging spoken repetition (especially of multisyllabic words) Encourage use of relevant gestures to enhance expression Goals: Manager Mobile Goals: Patient will remain free from aspiration-related illness, malnutrition, and dehydration. Patient/caregivers will verbalize comprehension of education provided re: dx, strategies to maximize functioning, and role of ST. Short Term Goals: Patient will participate in ongoing diagnostic treatment addressing communication. Patient will tolerate Minced/Moist Diet and Thin liquids without overt s/s aspiration across 2/2 visits. Patient/caregivers will be independent with safe swallow/risk management strategies. Patient has moved rooms since last visit with this clinician - added recommendations to white board for nursing and reminded them of his aspiration precautiosn. Patient will repeat 10 trained functional single 1-syllable words given direct model from clinician with at least 80% accuracy x1-2 sessions. Training list: Food, pain, drink, cup, pain, hand, spoon, Juice, Ed, No, Yes Objective/Assessment/Plan Recommendations Total Time Spent: 20m starting at 17:40 Coding CPT Codes SPEECH/HEARING THERAPY - 65399 ([id number]) Additional Codes Date of Service (51146) Date of service: 12/25/23
[2023-12-25] MEDS: Sennosides/Docusate Sodium TAB 1 TAB PO (20:07)
[2023-12-25] MEDS: ARIPiprazole 5 MG TAB PO (21:21)
[2023-12-25] MEDS: Atorvastatin 40 MG TAB 80 MG PO (21:21)
[2023-12-25] MEDS: Insulin Glargine 300 UNITS/3 ML PEN 12 UNITS SC (21:21)
--- NOTE | 2023-12-26 | DI.RAD_ITS ---
Exam(s) XR CHEST 2V PA LATERAL EXAM: XR CHEST 2V PA LATERAL CLINICAL HISTORY: cough, hypoxia. TECHNIQUE: 2D digital imaging was performed. COMPARISON: CR XR PORTABLE CHEST AP from 11/06/2023 FINDINGS: 2 views: Heart size is normal. The mediastinum is not widened. COPD findings again noted. Healed left-sided rib fractures again noted. No new obvious infiltrates nor pleural effusions. The infiltrate which was present in the left lung base on 11/06/2023 has resolved. The milder infiltrate in the mid right lung is also less evident al though there is some remnant mild thickening of the minor fissure. IMPRESSION: COPD but with somewhat improved bilateral findings when compared to most recent chest x-ray of 2022. DATA REPOSITORY: RADIATION DOSE DELIVERED:
--- NOTE | 2023-12-26 06:16 | NUR.NOTE ---
RN bladder scanned pt at about 0345 and got a average result of 434cc. Pt denied urge to void and refused to attempt to void in the urinal. RN reminded pt that he was last straight cath'd at 1730 the previous evening. Pt still refused and did not allow RN to perform straight cath. RN again asked pt to attempt to void or to allow a straight cath at 0530 and 0630. Pt still refused all options after being reminded that it had now been over 12 hours since last emptying of his bladder. Pt also refused 0600 levothyroxine. gate guard updated, will pass on to next RN. Nursing Note:
[2023-12-26] MEDS: Aspirin E.C. 81 MG TABEC PO (07:45)
[2023-12-26] MEDS: Methadone Liquid 10 MG/ML 60 MG PO ×2 (07:46→20:08)
[2023-12-26] MEDS: clonazePAM 0.5 MG TAB PO ×2 (07:47→20:11)
[2023-12-26] MEDS: Esomeprazole 40 MG CAPCR PO (07:47)
[2023-12-26] MEDS: Lactulose 20 GM/30 ML CUP PO ×2 (07:47→16:11)
[2023-12-26] MEDS: Carvedilol 12.5 MG TAB PO (07:47)
[2023-12-26] MEDS: Tamsulosin 0.4 MG CAPCR PO (07:48)
[2023-12-26] MEDS: amLODIPine 5 MG TAB PO (07:49)
[2023-12-26] MEDS: Cholecalciferol (Vitamin D3) 1,000 UNIT TAB 1000 UNITS PO (07:50)
[2023-12-26] MEDS: Docusate Sodium 100 MG CAP 200 MG PO (07:50)
[2023-12-26] MEDS: Ticagrelor 90 MG TAB PO ×2 (07:50→20:09)
[2023-12-26] MEDS: Gabapentin 800 MG TAB PO ×2 (07:50→20:09)
[2023-12-26] MEDS: Polyethylene Glycol 3350 17 GM PACKET PO (07:51)
[2023-12-26] MEDS: Magnesium Oxide 400 MG TAB PO ×2 (07:51→20:09)
[2023-12-26] MEDS: Normal Saline Flush 10 ML SYR IVP ×2 (07:55→20:10)
[2023-12-26] MEDS: Insulin Aspart 300 UNITS/3 ML PEN SC ×3 (07:57→18:24)
[2023-12-26 08:06] VITALS: BP 151/72; PULSE 101; RESP 18; TEMP 37.8; O2SAT 96
--- NOTE | 2023-12-26 08:42 | PDOC.CMACT ---
Date of service: 12/26/23 Time of Service: 16:56 Care Management Activity Note Activity Note Text Activity Note Text: S/O:Ed has been cooperative with working with PT , speech therapy and OT. His children and grandchildren continue to visit and Ed seems to enjoy the visits very much. Ed also enjoys spending time with staff and has developed good relationships with many of the staff on the unit and in ancillary departments. He watches TV and listens to music. When music therapy and pet therapy are available, Ed enjoys their visits. He is unable to use items from the activity cart as his vision is somewhat impaired and he does not have use of his dominant hand. A: Ed is a 73 year old man admitted on 10/31/24 with pneumonia P:Ed's discharge plan is unclear at this time. He has agreed to transfer to a SNF however no bed offers have been received. Referrals were sent again to all of the SNFs in [place] and several border facilities in [place] and [place]. CM will follow and continue to assess for discharge concerns.
[2023-12-26] MEDS: Lidocaine 2% Jelly 11 ML SYR UR (09:12)
[2023-12-26 11:32] VITALS: TEMP 37.4
[2023-12-26 13:18] VITALS: PULSE 96; TEMP 37.4; O2SAT 90
--- NOTE | 2023-12-26 15:22 | PT.INNT ---
Date of service: 12/26/23 Time of Service: 09:27 PT Notes Visit Reasons: Cerebrovascular accident Patient unavailable at 9:27, refuses treatment when approached at 12:47, 14:13 and 15:12 due to excessive fatigue.
--- NOTE | 2023-12-26 16:50 | STREC_ITS ---
Date of service: 12/26/23 Time of Service: 12:30 Speech Therapy Recommendations Report ST Recommendations: FERMENTING CELLARS RECEIVER communication therapy attempted at 12:30 this date, following noon meal. Patient in bed with eyes closed upon FERMENTING CELLARS RECEIVER entering, though easily awoken. He decl ined therapy, shaking head and closing eyes. Clinician inquired about returning later in afternoon though patient did not open eyes to respond. Will continue to follow. Coding
--- NOTE | 2023-12-26 16:50 | PDOC.STREC ---
Date of service: 12/26/23 Time of Service: 12:30 Speech Therapy Recommendations Report ST Recommendations: LICENSED MASSAGE PRACTITIONER communication therapy attempted at 12:30 this date, following noon meal. Patient in bed with eyes closed upon LICENSED MASSAGE PRACTITIONER entering, though easily awoken. He declined therapy, shaking head and closing eyes. Clinician inquired about returning later in afternoon though patient did not open eyes to respond. Will continue to follow. Coding
--- NOTE | 2023-12-26 17:00 | PDOC.CMPRO ---
Date of service: 12/26/23 Time of Service: 17:00 Care Management Progress Note Progress Note Text Progress Note Text: S/O:Ed remains in SB-1 status. Referrals were sent to all of the SNFs in [place] and also to several border facilities in [place] and [place] that accept [place] Medicaid. No bed offers have been received. Another team meeting was held this afternoon with Dr. Thomas, Roxann Ortega for [facility] and Lisa from . Roxann informed the group that she has a possible [facility] home placement for Ed. The home care provider would like to come and meet with Ed next week. The meeting is tentatively scheduled for Saturday01/01/24 at 1 pm. Ed's son Stephen contacted CM today to see if any progress has been made with placement. He questioned the validity of the healthcare agent form that was completed naming [facility] as his [facility]. He stated that he does not understand how Ed can be deemed to have capacity and one point but not another. CM explained that capacity can change depending on the situation and the decisions to be made. It can be affected by illness, stress or ability to communicate. Stephen asked if a private caregiver could be found, would Ed be able to return home. He stated he knew a couple of people that might be available for a few hours during the day so that he could continue to work and Ed would be cared for. Stephen would assume care for the evening and night. CM stated it might be a possibility but it would need to be discussed and appropriate parties would need to weigh in. A: Ed is a 73 year old man admitted on 10/31/23 with pneumonia. He transitioned to SB-1 on 11/11/23, then became acute again on 11/14/23. He again entered SB-1 status on 11/22/23 P:Ed's discharge plan is unclear at this time. He has agreed to transfer to a SNF however no bed offers have been received. In addition, AFC home placement has been pursued by Roxann López from [facility]. Today she learned that there is a possible placement in [place] and a meet and greet is tentatively scheduled for next 01/01/24 at 1 pm. CM will follow and continue to assess for discharge concerns.
[2023-12-26] MEDS: Atorvastatin 40 MG TAB 80 MG PO (20:09)
[2023-12-26] MEDS: ARIPiprazole 5 MG TAB PO (20:09)
[2023-12-26] MEDS: Sennosides/Docusate Sodium TAB 1 TAB PO (20:10)
[2023-12-26 20:11] VITALS: O2SAT 92
[2023-12-26] MEDS: Insulin Glargine 300 UNITS/3 ML PEN 12 UNITS SC (21:38)
[2023-12-27 02:11] VITALS: O2SAT 91
[2023-12-27] MEDS: Levothyroxine 112 MCG TAB PO (05:31)
[2023-12-27] MEDS: Levothyroxine 25 MCG TAB PO (05:32)
[2023-12-27] MEDS: Polyethylene Glycol 3350 17 GM PACKET PO (08:12)
[2023-12-27] MEDS: Methadone Liquid 10 MG/ML 60 MG PO ×2 (08:12→19:34)
[2023-12-27] MEDS: Carvedilol 12.5 MG TAB PO (08:13)
[2023-12-27] MEDS: clonazePAM 0.5 MG TAB PO ×2 (08:13→21:44)
[2023-12-27] MEDS: Esomeprazole 40 MG CAPCR PO (08:13)
[2023-12-27] MEDS: Tamsulosin 0.4 MG CAPCR PO (08:13)
[2023-12-27] MEDS: Ticagrelor 90 MG TAB PO ×2 (08:13→19:35)
[2023-12-27] MEDS: Aspirin E.C. 81 MG TABEC PO (08:14)
[2023-12-27] MEDS: Gabapentin 800 MG TAB PO ×2 (08:14→19:35)
[2023-12-27] MEDS: Cholecalciferol (Vitamin D3) 1,000 UNIT TAB 1000 UNITS PO (08:14)
[2023-12-27] MEDS: Magnesium Oxide 400 MG TAB PO ×2 (08:14→19:35)
[2023-12-27] MEDS: amLODIPine 5 MG TAB PO (08:14)
[2023-12-27] MEDS: Insulin Aspart 300 UNITS/3 ML PEN SC ×3 (08:15→16:44)
[2023-12-27] MEDS: Docusate Sodium 100 MG CAP 200 MG PO (08:15)
[2023-12-27] MEDS: Normal Saline Flush 10 ML SYR IVP ×2 (08:16→19:36)
[2023-12-27 11:57] VITALS: BP 123/63; PULSE 70; RESP 19; TEMP 36.4; O2SAT 92
--- NOTE | 2023-12-27 13:52 | NUR.NOTE ---
pt was asked multiple times to get out of bed. Encouraged and explained the negative effects of not getting up. pt continues to refuse to get up. Still does not feel the best.
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
--- NOTE | 2023-12-27 17:42 | STREC_ITS ---
Date of service: 12/27/23 Time of Service: 17:00 Speech Therapy Recommendations Report ST Recommendations: Patient contacted for speech therapy but declines to participate, shaking head and closing eyes. Additional HOB signage posted for caregiver guidance/reminders - aspiration precautions. PATROL JUDGE will continue to follow as able. Coding
[2023-12-27] MEDS: Sennosides/Docusate Sodium TAB 1 TAB PO (19:35)
[2023-12-27] MEDS: Insulin Glargine 300 UNITS/3 ML PEN 12 UNITS SC (21:44)
[2023-12-27] MEDS: Atorvastatin 40 MG TAB 80 MG PO (21:44)
[2023-12-27] MEDS: ARIPiprazole 5 MG TAB PO (21:44)
[2023-12-28] MEDS: Lidocaine 2% Jelly 11 ML SYR UR (05:58)
[2023-12-28 07:38] VITALS: BP 124/51; PULSE 79; RESP 18; TEMP 35.9; O2SAT 94
[2023-12-28] MEDS: Methadone Liquid 10 MG/ML 60 MG PO ×2 (08:30→20:32)
[2023-12-28] MEDS: Magnesium Oxide 400 MG TAB PO ×2 (08:30→20:33)
[2023-12-28] MEDS: Esomeprazole 40 MG CAPCR PO (08:30)
[2023-12-28] MEDS: Tamsulosin 0.4 MG CAPCR PO (08:30)
[2023-12-28] MEDS: Cholecalciferol (Vitamin D3) 1,000 UNIT TAB 1000 UNITS PO (08:30)
[2023-12-28] MEDS: Normal Saline Flush 10 ML SYR IVP ×2 (08:30→20:34)
[2023-12-28] MEDS: amLODIPine 5 MG TAB PO (08:31)
[2023-12-28] MEDS: Docusate Sodium 100 MG CAP 200 MG PO (08:31)
[2023-12-28] MEDS: clonazePAM 0.5 MG TAB PO ×2 (08:31→20:33)
[2023-12-28] MEDS: Ticagrelor 90 MG TAB PO ×2 (08:31→20:33)
[2023-12-28] MEDS: Aspirin E.C. 81 MG TABEC PO (08:31)
[2023-12-28] MEDS: Gabapentin 800 MG TAB PO ×2 (08:31→20:34)
[2023-12-28] MEDS: Carvedilol 12.5 MG TAB PO (08:31)
--- NOTE | 2023-12-28 09:37 | W.PM.PROGNOT ---
Date of Service Date of service: 12/28/23 Time of Service: 09:38 Objective Last Vital Signs Temp 35.9 C L 12/28/23 07:38 Pulse 79 12/28/23 07:38 Resp 18 12/28/23 07:38 BP 124/51 L 12/28/23 07:38 Pulse Ox 94 12/28/23 07:38
[2023-12-28] MEDS: Insulin Aspart 300 UNITS/3 ML PEN SC ×4 (12:59→17:40)
[2023-12-28] MEDS: Sennosides/Docusate Sodium TAB 1 TAB PO (20:33)
[2023-12-28] MEDS: Insulin Glargine 300 UNITS/3 ML PEN 12 UNITS SC (22:30)
[2023-12-28] MEDS: Atorvastatin 40 MG TAB 80 MG PO (22:30)
[2023-12-28] MEDS: ARIPiprazole 5 MG TAB PO (22:30)
[2023-12-29] MEDS: Acetaminophen 325 MG TAB 650 MG PO (02:23)
[2023-12-29 07:27] VITALS: BP 130/68; PULSE 67; RESP 17; TEMP 35.6; O2SAT 94
[2023-12-29] MEDS: Levothyroxine 112 MCG TAB PO (08:23)
[2023-12-29] MEDS: Levothyroxine 25 MCG TAB PO (08:23)
[2023-12-29] MEDS: Gabapentin 800 MG TAB PO ×2 (08:24→20:22)
[2023-12-29] MEDS: Esomeprazole 40 MG CAPCR PO (08:24)
[2023-12-29] MEDS: Docusate Sodium 100 MG CAP 200 MG PO (08:24)
[2023-12-29] MEDS: Carvedilol 12.5 MG TAB PO (08:24)
[2023-12-29] MEDS: Tamsulosin 0.4 MG CAPCR PO (08:24)
[2023-12-29] MEDS: Magnesium Oxide 400 MG TAB PO ×2 (08:24→20:22)
[2023-12-29] MEDS: Aspirin E.C. 81 MG TABEC PO (08:24)
[2023-12-29] MEDS: Cholecalciferol (Vitamin D3) 1,000 UNIT TAB 1000 UNITS PO (08:24)
[2023-12-29] MEDS: clonazePAM 0.5 MG TAB PO ×2 (08:24→20:22)
[2023-12-29] MEDS: amLODIPine 5 MG TAB PO (08:25)
[2023-12-29] MEDS: Methadone Liquid 10 MG/ML 60 MG PO ×2 (08:25→20:21)
[2023-12-29] MEDS: Ticagrelor 90 MG TAB PO ×2 (08:25→20:22)
[2023-12-29] MEDS: Insulin Aspart 300 UNITS/3 ML PEN SC ×3 (09:33→13:12)
[2023-12-29] MEDS: Normal Saline Flush 10 ML SYR IVP (20:22)
[2023-12-29] MEDS: Sennosides/Docusate Sodium TAB 1 TAB PO (20:22)
[2023-12-29] MEDS: Atorvastatin 40 MG TAB 80 MG PO (21:29)
[2023-12-29] MEDS: Insulin Glargine 300 UNITS/3 ML PEN 12 UNITS SC (21:29)
[2023-12-29] MEDS: ARIPiprazole 5 MG TAB PO (21:29)
--- NOTE | 2023-12-30 03:40 | NUR.NOTE ---
Nursing Note: Around 0145 pt heard yelling from bedroom. It Solutions Architect entered room and pt seemingly upset. Pt stated he wanted his brief changed, brief changed and pt repositioned. Pt stated he was in pain, however refused PRN acetaminophen. Pt then attempted to climb out of bed, this resume writer, along with multiple other staff members attempted to speak with pt to find out what he was wanting. Pt became aggressive at staff, was attempting to stand without assistance and pulling at bottom of the bed. After 45 mins of pt sitting at edge of bed, he began to fall asleep. To avoid an accidental fall, staff repositioned patient back into a supine position. Pt attempting to get aggressive with staff at this time. Pt then calmed down, allowed staff to cover him with blankets and drank some juice. CAN MACHINE OPERATOR sat with patient until asleep. Bed alarms on and 3 siderails up.
[2023-12-30 06:45] LABS: Abs Immature Grans 0.01 10^3/uL (0.0-0.06); Absolute Basophil Count 0.08 10^3/uL (0.0-0.2); Absolute Lymphocyte Count 1.07 10^3/uL (1.2-3.4); Absolute Monocyte Count 0.66 10^3/uL (0.1-0.8); Absolute Neutrophil Count 4.05 10^3/uL (1.2-6.7); Basophils % 1.3; Eosinophils % 6.4; HCT 29.7 % (40.0-50.0); HGB 9.8 g/dL (13.5-17.5); Immature Grans % 0.2; Lymphocytes % 17.1; MCH 29.4 pg (27.0-33.0); MCV 89 fL (80-95); MPV 10.3 fL (8.0-11.0); Monocytes % 10.5; Neutrophils % 64.5; Platelet Count 220 10^3/uL (130-400); RBC 3.33 10^6/uL (4.36-5.78); RDW 13.1 % (11.8-14.1); RDW-SD 42.9 fL; WBC 6.27 10^3/uL (4.4-10.8)
[2023-12-30] MEDS: clonazePAM 0.5 MG TAB PO ×2 (07:44→20:39)
[2023-12-30] MEDS: Gabapentin 800 MG TAB PO ×2 (07:45→20:38)
[2023-12-30] MEDS: Magnesium Oxide 400 MG TAB PO ×2 (07:45→20:38)
[2023-12-30] MEDS: Ticagrelor 90 MG TAB PO ×2 (07:45→20:38)
[2023-12-30] MEDS: Levothyroxine 112 MCG TAB PO (07:46)
[2023-12-30] MEDS: amLODIPine 5 MG TAB PO (07:46)
[2023-12-30] MEDS: Esomeprazole 40 MG CAPCR PO (07:46)
[2023-12-30] MEDS: Tamsulosin 0.4 MG CAPCR PO (07:46)
[2023-12-30] MEDS: Levothyroxine 25 MCG TAB PO (07:46)
[2023-12-30] MEDS: Cholecalciferol (Vitamin D3) 1,000 UNIT TAB 1000 UNITS PO (07:46)
[2023-12-30] MEDS: Carvedilol 12.5 MG TAB PO (07:46)
[2023-12-30] MEDS: Aspirin E.C. 81 MG TABEC PO (07:46)
[2023-12-30] MEDS: Normal Saline Flush 10 ML SYR IVP ×2 (07:47→22:01)
[2023-12-30] MEDS: Methadone Liquid 10 MG/ML 60 MG PO ×2 (07:49→20:37)
[2023-12-30] MEDS: Insulin Aspart 300 UNITS/3 ML PEN SC ×4 (08:48→17:50)
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
--- NOTE | 2023-12-30 10:17 | W.SPSTP ---
Date of service: 12/30/23 Time of Service: 09:10 Subjective Patient received asleep in bed. He easily woke to clinician verbal/tactile prompts. When asked if he wanted to participate in speech therapy, he initially stated No thanks but ultimately was agreeable with clinician proposing a brief, 10-minute session. Objective/Assessment/Plan Objective Treatment Techniques & Outcomes: Expressive Language/Word Repetition: Okay: Able to approximate x3 given several direct models Cup: No accurate repetitions despite multi-domain cueing and high patient effort Food: Able to approximate x 3 given several direct models Pain: No accurate repetitions despite multi-domain cueing and high patient effort Juice: No accurate repetitions despite multi-domain cueing and high patient effort Assessment Ed was seen today for communication treatment. He continues to demonstrate high fatigue, with eyes closing several times throughout brief 10-minute session. His accuracy for ability to repeat single syllable functional words was reduced this week compared to last few sessions; anticipate fatigue contributing. He verbalized good awareness of this, stating can't say it. NOXIOUS WEEDS AND PEST INSPECTOR will continue to target receptive and expressive language in short sessions. Nursing reports no PO/swallowing concerns since patient's episode of suspected aspiration on 12/26/23. *Ed remains heightened risk for aspiration, see ongoing precautions below. FURTHER INPATIENT NOXIOUS WEEDS AND PEST INSPECTOR SERVICES: Patient to be followed on unit for trial treatment stimulability with communication and monitoring dysphagia needs - 2-4x weekly. DISCHARGE RECOMMENDATIONS: Recommend NOXIOUS WEEDS AND PEST INSPECTOR services at SNF vs Home Health NOXIOUS WEEDS AND PEST INSPECTOR at least for initial strategy training with staff for communication and dysphagia. DIET RECOMMENDATIONS: Patient is at high risk of aspiration and should receive close supervision assistance during PO intake, with strict precautions as outlined below. SOLIDS: 5-Minced & Moist Solids LIQUIDS: 0-Thin Liquids - via provale cup or ensure very small sip size and fully upright posture MEDICATIONS: Whole one at a time with sips liquid, or whole in applesauce/pudding Level of Assistance/Supervision: Close supervision/partial assist with trained staff/family for all PO intake Positioning and environment: PO intake only when awake/alert? Reduce auditory and/or visual distractions when eating [place] upright for all PO intake. Oral hygiene Before/after PO intake Using friction with toothbrush on all oral structures as tolerated Additional Safety Strategies: Small sips approx 10mL Small bites approx [id number] COMMUNICATION RECOMMENDATIONS: Comprehension: Reduce length of sentences and complexity of words Utilize demonstration and gesture as much as possible Provide visual aids/resources whenever possible Offer simplified written text whenever possible for patient to review Expression: Allow patient additional time to express self and/or multiple attempts to find word(s) For word finding difficulties during conversation: Provide patient with visual aids (smallest possible field of choice) and allow him to make a choice using pointing or repetition Provide assistance with reading text aloud, encouraging spoken repetition (especially of multisyllabic words) Encourage use of relevant gestures to enhance expression Goals: Mail Handler Equipment Operator Goals: Patient will remain free from aspiration-related illness, malnutrition, and dehydration. Patient/caregivers will verbalize comprehension of education provided re: dx, strategies to maximize functioning, and role of ST. Short Term Goals: Patient will participate in ongoing diagnostic treatment addressing communication. Patient will tolerate Minced/Moist Diet and Thin liquids without overt s/s aspiration across 2/2 visits. Patient/caregivers will be independent with safe swallow/risk management strategies. Patient has moved rooms since last visit with this clinician - added recommendations to white board for nursing and reminded them of his aspiration precautiosn. Patient will repeat 10 trained functional single 1-syllable words given direct model from clinician with at least 80% accuracy x1-2 sessions. Training list: Food, pain, drink, cup, pain, hand, spoon, Juice, Ed, No, Yes Coding CPT Codes ORAL FUNCTION THERAPY - 47410 ([id number]) Additional Codes Date of Service (07813) Date of service: 12/30/23
[2023-12-30 10:27] LABS: Anion Gap 5.8 mmol/L (3-11); BUN 27 mg/dL (7-18); CO2 28.2 mmol/L (21.0-32.0); CREATININE 0.8 mg/dL (0.70-1.30); Calcium 8.5 mg/dL (8.5-10.1); Chloride 109 mmol/L (98-107); Estimated GFR 94.62 (mL/min/1.73m2); Glucose 253 mg/dL (74-106); Potassium 3.6 mmol/L (3.5-5.1); Sodium 143 mmol/L (136-145)
--- NOTE | 2023-12-30 12:58 | TELEFU_ITS ---
Date of service: 12/30/23 Time of Service: 11:00 Nutrition Note NOTE: Went to see pt for nutrition assessment follow up. Currently swing bed status awaiting placement for discharge. Long hosptal stay for edward. He is currently ordered a carb consistent diet with minced and moist solids and thin liquids for consistencies. He is a 1:1 supervised feed at the time of this note. Upon assessment of his weight history, it is noted that Mr Caballero has experienced a 2.7kg wt loss in the last ~weeks, with an 8.6lg loss over the last 2 months (11% of his body weight from October 31 2023) this loss, along with physical findings of mild depletion of body fat (sunken orbitals and calvicular prominence) and muscle wasting (temporal region and limbs) points towards Moderate state of malnutrition in the context of chronic illness. Although he feeds himself, MR caballero most likely lacks the energy and dexterity to feed himself to the point of independently meeting his energy needs. I cannot find a COLST form or copy of advanced directives which makes clear his wishes towards enteral feedings. Mr caballero has been receiving glucerna supplements BID but thses have not been consumed consistently per food cooking machine operator staff. At this time I will initiate a calorie count starting at dinner tonight and terminating after dinner on 01/02 so his intake can be assessed more accurately. I recommend brining up the subject to mr Caballero to see if is willing to receive enteral nutrition support should that be the best medical decision at this time. Estimated energy needs: 2000 kcals (1723 using MSJ with 1.2 AF with additional 276 kcals per day for slow wt gain), 83g protein (1.2g per kg current body weight), 1723mL fluid (1 mL pre required kcal) would also recommend that MR caballero have 1:1 feed assistance to help him with efficiency of intake at meals. Time Spent in Nutritional Counseling and Treatment: 0 minutes face to face
[2023-12-30 14:46] LABS: Bilirubin Negative (Negative); Blood Moderate (Negative); Clarity Clear (Clear); Glucose Negative (Negative); Ketones Negative (Negative); Leukocyte Esterase Negative (Negative); Nitrite Negative (Negative); Specific Gravity >= 1.030 (1.005-1.025); Urobilinogen 0.2 mg/dL (Up to 0.2)
[2023-12-30 14:57] LABS: Bacteria Many HPF (Negative); C & S Indicated? Yes; Casts Negative LPF (Negative); Crystals Negative HPF (Negative); Epithelial Cells Rare HPF (Negative); Mucus Negative (Negative); WBC 0-2 HPF (0-5)
--- NOTE | 2023-12-30 16:24 | NT_ITS ---
Date of service: 12/30/23 Time of Service: 13:15 PT Notes Visit Reasons: Cerebrovascular accident Patient refuses therapy at 13:15 due to catheterization procedure, at 14:05- 14:17 due to not wanting to wear socks, and at 16:12 due to fatigue.
[2023-12-30 17:37] VITALS: BP 147/86; PULSE 77; TEMP 36.3; O2SAT 96
--- NOTE | 2023-12-30 18:55 | DI.RAD_ITS ---
Exam(s) XR PORTABLE CHEST AP EXAM: XR PORTABLE CHEST AP CLINICAL HISTORY: left sided crackle, cough with purulent sputum, TECHNIQUE: 2D digital imaging was performed. COMPARISON: CR XR PORTABLE CHEST AP from 11/06/2023 CR XR CHEST 2V PA LATERAL from 12/26/2023 FINDINGS: LUNGS: Increased densities projecting over the left cardiac silhouette, worsening from prior.. No pl eural abnormality seen. HEART: Normal size. AORTA: Normal diameter. BONES: Degenerative changes in the thoracic spine. Soft tissues: Unremarkable. IMPRESSION: Left basilar infiltrate. DATA REPOSITORY: RADIATION DOSE DELIVERED:
[2023-12-30] MEDS: Sennosides/Docusate Sodium TAB 1 TAB PO (20:38)
[2023-12-30] MEDS: Lactulose 20 GM/30 ML CUP PO (20:38)
[2023-12-30] MEDS: Atorvastatin 40 MG TAB 80 MG PO (20:39)
[2023-12-30] MEDS: ARIPiprazole 5 MG TAB PO (20:39)
[2023-12-30] MEDS: Cephalexin 500 MG CAP PO (20:39)
[2023-12-30] MEDS: Mirtazapine 15 MG TAB PO (22:01)
[2023-12-30] MEDS: Insulin Glargine 300 UNITS/3 ML PEN 12 UNITS SC (22:01)
[2023-12-31] MEDS: Levothyroxine 112 MCG TAB PO (06:18)
[2023-12-31] MEDS: Levothyroxine 25 MCG TAB PO (06:18)
[2023-12-31 06:54] LABS: Abs Immature Grans 0.02 10^3/uL (0.0-0.06); Absolute Basophil Count 0.06 10^3/uL (0.0-0.2); Absolute Eosinophil Count 0.46 10^3/uL (0.0-0.7); Absolute Lymphocyte Count 1.45 10^3/uL (1.2-3.4); Absolute Monocyte Count 0.62 10^3/uL (0.1-0.8); Absolute Neutrophil Count 3.08 10^3/uL (1.2-6.7); Basophils % 1.1; Eosinophils % 8.1; HCT 29.5 % (40.0-50.0); HGB 9.7 g/dL (13.5-17.5); Immature Grans % 0.4; Lymphocytes % 25.5; MCHC 32.9 % (32.0-36.0); MCV 88 fL (80-95); MPV 10.1 fL (8.0-11.0); Monocytes % 10.9; Platelet Count 220 10^3/uL (130-400); RBC 3.34 10^6/uL (4.36-5.78); RDW 13.2 % (11.8-14.1); RDW-SD 42.6 fL; WBC 5.69 10^3/uL (4.4-10.8)
[2023-12-31 07:26] LABS: Ferritin 105 ng/mL (26-388)
[2023-12-31 07:43] VITALS: BP 122/66; PULSE 74; RESP 20; TEMP 35.5; O2SAT 95
[2023-12-31] MEDS: Esomeprazole 40 MG CAPCR PO (07:52)
[2023-12-31] MEDS: clonazePAM 0.5 MG TAB PO ×2 (07:52→20:02)
[2023-12-31] MEDS: Aspirin E.C. 81 MG TABEC PO (07:52)
[2023-12-31] MEDS: Docusate Sodium 100 MG CAP 200 MG PO (07:52)
[2023-12-31] MEDS: Tamsulosin 0.4 MG CAPCR PO (07:52)
[2023-12-31] MEDS: Gabapentin 800 MG TAB PO ×2 (07:52→20:03)
[2023-12-31] MEDS: Cephalexin 500 MG CAP PO ×3 (07:53→20:02)
[2023-12-31] MEDS: Ticagrelor 90 MG TAB PO ×2 (07:53→20:02)
[2023-12-31] MEDS: Carvedilol 12.5 MG TAB PO (07:53)
[2023-12-31] MEDS: Cholecalciferol (Vitamin D3) 1,000 UNIT TAB 1000 UNITS PO (07:53)
[2023-12-31] MEDS: amLODIPine 5 MG TAB PO (07:53)
[2023-12-31] MEDS: Magnesium Oxide 400 MG TAB PO ×2 (07:53→20:02)
[2023-12-31] MEDS: Methadone Liquid 10 MG/ML 60 MG PO ×2 (07:56→19:02)
[2023-12-31] MEDS: Normal Saline Flush 10 ML SYR IVP ×2 (07:57→20:03)
[2023-12-31] MEDS: Insulin Aspart 300 UNITS/3 ML PEN SC ×6 (08:37→18:02)
[2023-12-31 11:53] LABS: Iron 23 ug/dL (65-175); Total Iron Binding Capacity 160 ug/dL (250-450); Transferrin Sat 14 % (20-55)
--- NOTE | 2023-12-31 14:32 | PT.INTREAT ---
Date of service: 12/31/23 Time of Service: 13:40 PT Notes Visit Reasons: Cerebrovascular accident Inpatient Physical Therapy Treatment Note [facility] Date: 12/31/23 PRECAUTIONS: Fall, standard, activity as tolerated. SUBJECTIVE: Patient is asleep when approached for physical therapy treatment today. Appears to clear the sleep fog faster than he has recently. OBJECTIVE: Supine in bed. Agreeable to therapy. Refuses socks.? PAIN: none reported or observed VITALS: monitored by nursing staff. ? Therapeutic Activities ([id number]): Direct one-on-one instruction in dynamic activities to improve functional performance. ? BED MOBILITY/TRANSFERS? Rolling L/R: not assessed Supine-sit: min assist to maneuver RLE out of bed. ? Sit-supine: not assessed ? Sit-stand: mod assist of one at gait belt, blocking both (bare) feet so they don't slide on the linoleum. SBA by TRUCK LOADER AND UNLOADER Rupal. ? Stand-sit: Min assist of one at gait belt with right foot blocked, vc to reach back with left hand for chair. ? Bed-Chair: Mod assist of one at gait belt with right foot blocked, vc to reach back with left hand for chair. SBA by TRUCK LOADER AND UNLOADER Rupal. ? Chair-chair: Mod assist of one at gait belt with right foot blocked, vc to reach back with left hand for chair. SBA by ARABELLA Goldsmith. Provided skilled cues and instruction on performance and technique throughout. ? ASSESSMENT:? Patient tolerates therapy well today despite getting moderately frustrated trying to communicate his desires to ARABELLA Goldsmith and this clinician. Ends treatment session sitting up in bedside recliner with feet elevated. [place] alarm in place. Call flynn within easy reach. Patient states I will not give up. with emphasis on each word, very clearly. PLAN: Continue global strengthening per plan of care within patient tolerance until safe discharge plan is established. TREATMENT CODE/TIME: 42 minutes beginning at 13:40
[2023-12-31] MEDS: Acetaminophen 325 MG TAB 650 MG PO (18:51)
[2023-12-31 19:40] VITALS: BP 166/65; PULSE 73; RESP 18; TEMP 36.5; O2SAT 95
[2023-12-31] MEDS: Mirtazapine 15 MG TAB PO (20:02)
[2023-12-31] MEDS: Atorvastatin 40 MG TAB 80 MG PO (20:02)
[2023-12-31] MEDS: ARIPiprazole 5 MG TAB PO (20:02)
[2023-12-31] MEDS: Sennosides/Docusate Sodium TAB 1 TAB PO (20:02)
[2023-12-31] MEDS: Ibuprofen 400 MG TAB PO (20:03)
[2023-12-31] MEDS: Insulin Glargine 300 UNITS/3 ML PEN 12 UNITS SC (20:04)
[2024-01-01] MEDS: Levothyroxine 112 MCG TAB PO (05:26)
[2024-01-01] MEDS: Levothyroxine 25 MCG TAB PO (05:26)
[2024-01-01] MEDS: Cephalexin 500 MG CAP PO ×3 (08:02→21:09)
[2024-01-01] MEDS: Ticagrelor 90 MG TAB PO ×2 (08:02→21:10)
[2024-01-01] MEDS: clonazePAM 0.5 MG TAB PO ×2 (08:03→21:09)
[2024-01-01] MEDS: amLODIPine 5 MG TAB PO (08:03)
[2024-01-01] MEDS: Carvedilol 12.5 MG TAB PO (08:03)
[2024-01-01] MEDS: Aspirin E.C. 81 MG TABEC PO (08:04)
[2024-01-01] MEDS: Magnesium Oxide 400 MG TAB PO ×2 (08:04→21:09)
[2024-01-01] MEDS: Cholecalciferol (Vitamin D3) 1,000 UNIT TAB 1000 UNITS PO (08:04)
[2024-01-01] MEDS: Tamsulosin 0.4 MG CAPCR PO (08:04)
[2024-01-01] MEDS: Gabapentin 800 MG TAB PO ×2 (08:05→21:09)
[2024-01-01] MEDS: Esomeprazole 40 MG CAPCR PO (08:12)
[2024-01-01 08:29] VITALS: PULSE 61; RESP 21; O2SAT 97
--- NOTE | 2024-01-01 09:15 | PDOC.CMPRO ---
Date of service: 01/01/24 Time of Service: 15:42 Care Management Progress Note Progress Note Text Progress Note Text: S/O: A meeting was held today to introduce Ed to a potential [facility] home care provider named Trudy. The meeting went very well and Ed appeared to really engage with her. She has been an [facility] provider for 30 years and has had a lot of experience with patients who have had a stroke. She was very patient with Ed's speech and encouraged him to keep trying when it wasn't clear what he was trying to communicate. At one point when he was shown pictures of the home and the milieu was described he clearly stated this is exciting. The process is moving forward however CM has been unable to reach Alejandra, his daughter and [facility]. Numerous call have been made and messages left in the past 2 weeks with no response. She is in the late stages of so may be dealing with health issues. CM will continue to reach out. A: Ed is a 73 year old man admitted on 10/31/23 with pneumonia . P: Ed will likely transition to an [facility] ([facility] home in [place] when the paper work is completed. CM will continue to follow snd support Ed and his dicharge planning needs.
[2024-01-01] MEDS: Insulin Aspart 300 UNITS/3 ML PEN SC ×4 (09:28→18:17)
[2024-01-01] MEDS: Methadone Liquid 10 MG/ML 60 MG PO ×2 (10:00→21:10)
[2024-01-01] MEDS: Atorvastatin 40 MG TAB 80 MG PO (21:10)
[2024-01-01] MEDS: ARIPiprazole 5 MG TAB PO (21:10)
[2024-01-01] MEDS: Sennosides/Docusate Sodium TAB 1 TAB PO (21:10)
[2024-01-01] MEDS: Mirtazapine 15 MG TAB PO (21:10)
[2024-01-01] MEDS: Insulin Glargine 300 UNITS/3 ML PEN 12 UNITS SC (21:24)
[2024-01-02] MEDS: Levothyroxine 25 MCG TAB PO (06:27)
[2024-01-02] MEDS: Levothyroxine 112 MCG TAB PO (06:27)
[2024-01-02] MEDS: Methadone Liquid 10 MG/ML 60 MG PO ×2 (08:50→21:07)
[2024-01-02 09:14] VITALS: BP 99/70; PULSE 103; RESP 17; TEMP 36.2; O2SAT 96
[2024-01-02] MEDS: Esomeprazole 40 MG CAPCR PO (09:27)
[2024-01-02] MEDS: Aspirin E.C. 81 MG TABEC PO (09:30)
[2024-01-02] MEDS: Cephalexin 500 MG CAP PO ×3 (09:30→21:12)
[2024-01-02] MEDS: Cholecalciferol (Vitamin D3) 1,000 UNIT TAB 1000 UNITS PO (09:31)
[2024-01-02] MEDS: clonazePAM 0.5 MG TAB PO ×2 (09:31→21:12)
[2024-01-02] MEDS: Gabapentin 800 MG TAB PO ×2 (09:32→21:12)
[2024-01-02] MEDS: Ticagrelor 90 MG TAB PO ×2 (09:33→21:13)
[2024-01-02] MEDS: Tamsulosin 0.4 MG CAPCR PO (09:33)
[2024-01-02] MEDS: Magnesium Oxide 400 MG TAB PO ×2 (09:34→21:11)
[2024-01-02] MEDS: Docusate Sodium 100 MG CAP 200 MG PO (09:34)
[2024-01-02] MEDS: Polyethylene Glycol 3350 17 GM PACKET PO (09:37)
[2024-01-02] MEDS: Insulin Aspart 300 UNITS/3 ML PEN SC ×5 (09:45→17:49)
--- NOTE | 2024-01-02 10:34 | SPP_ITS ---
Date of service: 01/02/24 Time of Service: 10:00 Subjective Subjective:Patient received awake in bed. He was alert and agreeable to therapy, with improved energy levels and engagement with this clinician as compared to recent RADIO PRODUCER sessions. Objective Expressive Language/Word Repetition: Target Word Word Repetition Use target word in lead-in sentence Food + + + + Juice + + + - Yes + + + - No + + + - Ed + + + - Cup 7 7 7 up - TV 7 7 7 see v - *7= approximation Spontaneous speech: Yea I gotta get out of this place Several other utterances attempted, but unintelligible Assessment Ed was seen today for communication treatment, targeting single syllable functional communication words. Ed was able to repeat or approximate target words with high accuracy this date, though with increased difficulty then using the target word within lead-in sentence (1/7 accuracy). Overall he remained in high spirits throughout entirety of session and was notably more alert and engaged in session as compared to recent visits. Ed continues to benefit from brief sessions targeting functional expressive and receptive language. *Ed remains at chronic heightened risk for aspiration, see ongoing precautions below. FURTHER INPATIENT RADIO PRODUCER SERVICES: Patient to be followed on unit for trial treatment stimulability with communication and monitoring dysphagia needs - 2-4x weekly. DISCHARGE RECOMMENDATIONS: Recommend RADIO PRODUCER services at SNF vs Home Health RADIO PRODUCER at least for initial strategy training with staff for communication and dysphagia. DIET RECOMMENDATIONS: Patient is at high risk of aspiration and should receive close supervision assi stance during PO intake, with strict precautions as outlined below. SOLIDS: 5-Minced & Moist Solids LIQUIDS: 0-Thin Liquids - via provale cup or ensure very small sip size and fully upright posture MEDICATIONS: Whole one at a time with sips liquid, or whole in applesauce/pudding Level of Assistance/Supervision: Close supervision/partial assist with trained staff/family for all PO intake Positioning and environment: PO intake only when awake/alert? Reduce auditory and/or visual distractions when eating [place] upright for all PO intake. Oral hygiene Before/after PO intake Using friction with toothbrush on all oral structures as tolerated Additional Safety Strategies: Small sips approx 10mL Small bites approx [id number] COMMUNICATION RECOMMENDATIONS: Comprehension: Reduce length of sentences and complexity of words Utilize demonstration and gesture as much as possible Provide visual aids/resources whenever possible Offer simplified written text whenever possible for patient to review Expression: Allow patient additional time to express self and/or multiple attempts to find word(s) For word finding difficulties during conversation: Provide patient with visual aids (smallest possible field of choice) and allow him to make a choice using pointing or repetition Provide assistance with reading text aloud, encouraging spoken repetition (especially of multisyllabic words) Encourage use of relevant gestures to enhance expression Goals: Assisted Goals: Patient will remain free from aspiration-related illness, malnutrition, and dehydration. Patient/caregivers will verbalize comprehension of education provided re: dx, strategies to maximize functioning, and role of ST. Short Term Goals: Patient will participate in ongoing diagnostic treatment addressing communication. Patient will tolerate Minced/Moist Diet and Thin liquids without overt s/s aspiration across 2/2 visits. Patient/caregivers will be independent with safe swallow/risk management strategies. Patient has moved rooms since last visit with this clinician - added recommendations to white board for nursing and reminded them of his aspiration precautiosn. Patient will repeat 10 trained functional single 1-syllable words given direct model from clinician with at least 80% accuracy x1-2 sessions. Training list: Food, pain, drink, cup, pain, hand, spoon, Juice, Ed, No, Yes
[2024-01-02] MEDS: amLODIPine 5 MG TAB PO (12:04)
[2024-01-02] MEDS: Carvedilol 12.5 MG TAB PO (12:05)
[2024-01-02] MEDS: Fosfomycin Tromethamine 3 GM PACKET PO (15:37)
--- NOTE | 2024-01-02 16:17 | PTTR_ITS ---
Date of service: 01/02/24 Time of Service: 14:34 PT Notes Visit Reasons: Cerebrovascular accident Inpatient Physical Therapy Treatment Note [facility] Date: 01/02/24 PRECAUTIONS: Fall, contact, activity as tolerated. 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 SUBJECTIVE: Patient is awake when this clinician enters the room. Smiles easily today, quite talkative although <20% is understandable. OBJECTIVE: Supine in bed, agreeable to therapy. New MERRILL in place, which is causing patient some concern / preoccupation. Patient also appears to be looking for an item throughout therapy today. Finds his glasses, but continues looking for another item. ?Patient also has phlegm-y sounding voice, several wet coughing spells during treatment session today. ? PAIN: none reported throughout session today. VITALS: monitored by nursing staff. ? BED MOBILITY/TRANSFERS? Rolling L/R: not assessed Supine-sit: min assist to unweight right leg, with bilateral handrails and HOB elevated ~75 degrees.? Sit-supine: mod assist to maneuver right leg into bed along with managing MERRILL catheter bag, which is causing patient some preoccupation. ?Sit-stand x3: mod assist of one via gait belt from elevated bed.? Stand-sit: min assist of one via gait belt ? Bed-Chair: not assessed ? Chair-bed: not assessed Neuromuscular Re-education ([id number]): Activities that facilitate re-education of movement balance, posture, coordination, and proprioception or kinesthetic sense, requiring skilled tactile and verbal cues ? Exercises/techniques: * Seated balance training, including static seated balance with head turns. Patient's seated balance is markedly worse than it was 2 weeks ago, with patient often falling to right side. * Seated balance training, including feed forward dynamic balance activity with patient reaching outside base of support and then righting himself. * Static supported standing balance training, mod assist * Activation training for extensor muscles throughout trunk and bilateral lower extremities. ASSESSMENT:? Patient has lost a great deal of strength and balance capability in the last 2 weeks. Experiences several coughing spells during treatment session which visibly exhaust patient. PLAN: continue global strengthening per plan of care until patient is medically cleared for discharge. TREATMENT CODE/TIME: 49 minutes beginning at 14:34
[2024-01-02] MEDS: Mirtazapine 15 MG TAB PO (21:12)
[2024-01-02] MEDS: Atorvastatin 40 MG TAB 80 MG PO (21:12)
[2024-01-02] MEDS: Sennosides/Docusate Sodium TAB 1 TAB PO (21:12)
[2024-01-02] MEDS: Insulin Glargine 300 UNITS/3 ML PEN 12 UNITS SC (21:13)
[2024-01-02] MEDS: ARIPiprazole 5 MG TAB PO (21:13)
--- NOTE | 2024-01-03 | DI.RAD_ITS ---
Exam(s) XR CHEST 2V PA LATERAL EXAM: XR CHEST 2V PA LATERAL CLINICAL HISTORY: follow up pneumonia TECHNIQUE: 2D digital imaging was performed. COMPARISON: CR XR CHEST 1V IN DI DEPT from 10/31/2023 CR XR PORTABLE CHEST AP from 11/06/2023 CR XR CHEST 2V PA LATERAL from 12/26/2023 CR XR PORTABLE CHEST AP from 12/30/2023 FINDINGS: HEART: Normal size. Aorta: Not dilated. PULMONARY VASCULATURE: Normal. LUNGS: Persistent right lower lobe infiltrate. No new areas of infiltrate. PLEURAL SPACE: No pleural effusion or pneumothorax. BONE:Stable mild compression fractures. Soft tissues: Unremarkable. IMPRESSION: No significant change in left lower lobe infiltrate. DATA REPOSITORY: RADIATION DOSE DELIVERED:
--- NOTE | 2024-01-03 05:42 | NUR.NOTE ---
Nursing Note:pt is not in a golod mood and refused to take Levothyroxine and screaming
--- NOTE | 2024-01-03 07:54 | W.PM.PROGNOT ---
Date of Service Date of service: 01/03/24 Time of Service: 07:54 Subjective Subjective Interval history since last seen: Mr Caballero was started on fosfomycin due to VRE in his very foul-smelling urine on 01/02/24. He was retaining a liter of urine as well, so a michel catheter was placed. I haD asked nursing to notify Dr Tran. Objective Last Vital Signs Temp 36.2 C L 01/02/24 09:14 Pulse 103 H 01/02/24 09:14 Resp 17 01/02/24 09:14 BP 99/70 L 01/02/24 09:14 Pulse Ox 96 01/02/24 09:14 Time Spent with Patient Time Spent with Patient: <25 minutes Time was spent: preparing to see the patient(eg.review tests), obtaining and/or reviewing separately otained hiistory, ordering medications,tests, procedures, referring, communicating with other health manager intensive care unit, indepentently interpreting results, counseling the patient and care coordination
[2024-01-03 08:14] VITALS: BP 147/71; PULSE 67; RESP 19; TEMP 36.6; O2SAT 97
[2024-01-03] MEDS: Methadone Liquid 10 MG/ML 60 MG PO ×2 (08:48→19:31)
[2024-01-03 12:56] VITALS: BP 133/77; PULSE 62; RESP 16; TEMP 36.2; O2SAT 97
[2024-01-03] MEDS: Aspirin E.C. 81 MG TABEC PO (14:57)
[2024-01-03] MEDS: Ticagrelor 90 MG TAB PO ×2 (14:58→19:31)
[2024-01-03] MEDS: Gabapentin 800 MG TAB PO ×2 (15:04→19:31)
[2024-01-03] MEDS: Carvedilol 12.5 MG TAB PO (15:04)
[2024-01-03] MEDS: amLODIPine 5 MG TAB PO (15:04)
[2024-01-03] MEDS: clonazePAM 0.5 MG TAB PO ×2 (15:05→19:31)
[2024-01-03] MEDS: Tamsulosin 0.4 MG CAPCR PO (15:05)
[2024-01-03] MEDS: Cephalexin 500 MG CAP PO ×2 (15:05→19:31)
[2024-01-03] MEDS: Docusate Sodium 100 MG CAP 200 MG PO (15:07)
--- NOTE | 2024-01-03 15:29 | INPN_ITS ---
PT Notes Visit Reasons: Cerebrovascular accident Physical Therapy Swing Bed Level I Progress Note Date: 01/03/2024 Dates of Service: 12/28/2023 - 01/03/2024 Precautions: Fall. Activity as tolerated. Aphasic (global). Motor apraxic. Subjective: Complains of pain at catheter insertion. Did not want to get out of the bed because of discomfort. Nurse Haily notified who said that he did just get a new catheter earlier today. Objective: General Observation: Resting in bed at initiation of session. Riojas catheter in place. Mental Status: Motor apraxia and aphasia limiting ability to comprehend instructions execute movement, and express self Pain: As above Vital Signs: Monitored by nursing staff ROM: Right Upper Extremity: R UE hemiplegia. Tolerates passive shoulder flexion to 60*. Full passive elbow extension, flexion to 90*. Left Upper Extremity: Shoulder, elbow and wrist motion full. Right Lower Extremity: Hip and knee motion WFL passively. Left Lower Extremity: Hip flexion WFL. Hip abduction WFL. Knee flexion WFL. Ankle dorsiflexion WFL. Ankle plantarflexion WFL. Strength: Right Upper Extremity: 0/5 grossly about the RUE Left Upper Extremity: Shoulder flexion 4/5. Triceps 4/5. Biceps 4/5. Sales And Catering Coordinator strong. Right Lower Extremity: Now able to hold R LE midline with hip and knee flexed without flopping onto side or without sliding down, R adductor jason and some medial quad recruitment palpated Left Lower Extremity: Hip flexors 3/5. Hip abductors 3-/5. Knee flexors 4/5. Knee extensors 4/5. Ankle dorsiflexors 4-/5. Ankle plantarflexors 4-/5. Bed Mobility/Transfers: supine-sit: moderate assist with maximal visual, verbal, and tactile cueing for movement sequence/motor planning sit-supine: minimal assist to R LE only with maximal visual, verbal, and tactile cueing for movement sequence/motor planning sit-stand: has been not consistently participating with transfer skills progression Gait: N/A. Patient non-ambulatory. Balance: Static Sitting: Fair Dynamic Sitting: Poor Static Standing: Poor Dynamic Standing: Unable Special Tests: Mobility Limitations Standardized Measure (unchanged) [facility]-P[facility] 6 clicks Basic Mobility Inpatient Short Form: Raw Score: 12 CMS Score: 69% deficit Informed Consent/Education: Patient and patient's family are agreeable to purpose of PT consult and plan of care. THERA ACT: -Guided patient with supine<>sit movement sequences requiring maximal verbal/tactile/visual cueing and redirection for movement sequencing x 10 minutes. Patient needed more time to process moving B legs to edge of bed, cueing provided to have L LE hook R LE at the ankle. -Neurofacilitatory techniques to facilitate hip adductor recruitment with patient's B hips and knees bent x 8 minutes -Needs frequent encouragement as he easily gets frustrated when motor apraxia gets in the way ASSESSMENT: Less participation in PT this week, only agreeing to transfer out of chair once for this epsiode of care. If willing, patient is insistent on not using his hemowalker but instead would reach for the chair arm rest and squat-pivot onto reclining chair. Participation limited by catheter insertion site pain. Stimulation of R adductors and medial quads elicited contraction and improved ability to hold R L without flopping onto side. Motor apraxia, expressive/receptive aphasia, caregiver anxiety limit self efficiency and self- reliance which continue to limit consistent progress with functional mobility performance. Signs of depression also have been observed by both PT and MOTORCYCLE RIDING INSTRUCTOR. Patient will continue to benefit from functional mobility retraining, neuromuscular re-education, and transfer/AD training. Will need training with AFC provider for safe transfer technique if accepted. Will also require training with navigation using appropriately fitted hemiplegic wheelchair. Goals: Goals X1 week 1. Supine-Sit SBA NOT MET, CONTINUE 2. Sit-Supine SBA NOT MET, CONTINUE 3. Sit-Stand SBA NOT MET, CONTINUE 4. Stand-Sit SBA NOT MET, CONTINUE 5. Bed-Chair moderate assist with stand pivot technique using hemiwalker on L NOT MET, CONTINUE 6. Chair-Bed moderate assist with stand pivot technique using hemiwalker on L NOT MET, CONTINUE 7. Moderate assist with hemiwalker on L with gait on level surface for at least 15 feet without report of pain nor dyspnea NOT MET, DOWNGRADE TO 5 STEPS 8. Fair static and dynamic standing balance/tolerance NOT MET, CONTINUE Plan of Care/Treatment Plan: 1-2x/day, 7 days/week x 1 week. Plan of care has been reviewed with the MOTORCYCLE RIDING INSTRUCTOR providing the service under Physical Therapy direction. Continue with Physical Therapy intervention for pain management as needed, strengthening, bed mobility, transfers, gait, stairs, balance training, and use of assistive device. -ENSURE CAREGIVER TRAINING IS DONE PRIOR TO D/C TO HOME OR AFC. -Recommended Swing Bed Level I treatment plan: PT intervention 1-2x/day, 5 days per week. 1. NEURO RE-ED: Dynamic sitting activities at edge of bed to include reach forward and rotate trunk to R/L with AW on the R UE Static standing tolerance to increase to 5 minutes while holding onto hemiwalker working on increasing R knee ext 2. THERA EX: Supine /seated marches and LAQ with 3 lb AW L UE strengthening using 2 lb DB AP x10 3. Therapeutic Activities Instruction in techniques for bed mobility and transfers Transfer to and from bed to be up for meals using hemiwalker focusing on posture, R knee extension, and pivoting using HEMIWALKER DISCHARGE RECOMMENDATIONS: [] Home with no services [] [] Home with services [specify] [] Home with outpatient PT [] [] SNF for continued rehabilitation [] [facility] [] [] SNF versus LTC based on ability to participate and progress [] [X] SNF vs HH PT based on availability of caregiver support at home. Will require seating assessment for procurement of hemiplegic wheelchair to maximize mobility performance at home.
--- NOTE | 2024-01-03 17:34 | DI.CT_ITS ---
Exam(s) CT HEAD WO EXAM: CT HEAD WO CLINICAL HISTORY: worsening dysphagia, ?acute CVA. TECHNIQUE: Imaging Protocol: Axial computed tomography images with coronal and sagittal reformatted images were created and reviewed COMPARISON: CT CT HEAD WO from 11/15/2023 FINDINGS: Ventricles and Extra axial spaces: Normal in size and morphology for the patient's age. Hemorrhage: None. Cerebral parenchyma: Stable large right MCA territory old infarct. No evidence of acute infarct or m ass. Mild atrophy again noted. Mild white matter changes of small vessel disease. Midline shift: None. Brainstem/Cerebellum: Normal. Calvarium: Normal. Visualized Paranasal sinuses:Clear. Mastoids: Clear. Soft Tissues: Cerumen left external auditory canal. ORBITS: Unremarkable. PITUITARY: Normal. IMPRESSION: No acute intracranial process. Large old left MCA territory infarct. RADIATION DOSE DELIVERED: 839.68mGy.cm Total DLP DATA REPOSITORY: All CT scans at this facility are submitted to the National Radiology Data Registry (NRDR) Dose Index Registry (DIR) with the [employer] (ACR). RADIATION OPTIMIZATION: All CT scans at this facility use at least one of these dose optimization te chniques: automated exposure control; mA and/or kV adjustment per patient size (includes targeted exa ms where dose is matched to clinical indication); or iterative reconstruction.
[2024-01-03] MEDS: Insulin Aspart 300 UNITS/3 ML PEN SC ×2 (17:44→17:52)
[2024-01-03] MEDS: Magnesium Oxide 400 MG TAB PO (19:31)
[2024-01-03] MEDS: Sennosides/Docusate Sodium TAB 1 TAB PO (19:31)
--- NOTE | 2024-01-03 20:02 | W.PM.PROGNOT ---
Date of Service Date of service: 01/03/24 Time of Service: 20:02 Subjective Subjective Interval history since last seen: At 12:40, I was informed that the patient was having more difficulty swallowing since about 9:30 this am. VSS and BG was 117. On exam, he appeared to be at his baseline. R hemiparesis, slurred speech, expressive aphasia. He did cough. He sounded rhonchorous. CT head was negative. CXR showed persistent LLL infiltrate. He is receiving keflex for an MSSA pneumonia. His swallowing returned back to baseline in the afternoon. At this point, I suspect that these were residual effects of the morning methadone which he did receive in the morning. I do not feel that further workup is warranted at that time. Objective Last Vital Signs Temp 36.2 C L 01/03/24 12:56 Pulse 62 01/03/24 12:56 Resp 16 01/03/24 12:56 BP 133/77 01/03/24 12:56 Pulse Ox 97 01/03/24 12:56 Time Spent with Patient Time Spent with Patient: 25-34 minutes Time was spent: preparing to see the patient(eg.review tests), obtaining and/or reviewing separately otained hiistory, ordering medications,tests, procedures, referring, communicating with other health resident care technician, indepentently interpreting results, counseling the patient and care coordination
[2024-01-03] MEDS: Atorvastatin 40 MG TAB 80 MG PO (21:14)
[2024-01-03] MEDS: ARIPiprazole 5 MG TAB PO (21:14)
[2024-01-03] MEDS: Mirtazapine 15 MG TAB PO (21:14)
[2024-01-03] MEDS: Acetaminophen 325 MG TAB 650 MG PO (21:41)
[2024-01-03] MEDS: Insulin Glargine 300 UNITS/3 ML PEN 12 UNITS SC (21:43)
[2024-01-03] MEDS: Albuterol 2.5 MG/3 ML INH SOLN VIAL UPD (23:55)
[2024-01-04] VITALS (7 sets, daily range): BP systolic 109–154; BP diastolic 62–94; PULSE 79–109; RESP 18–20; TEMP 36.4–37; O2SAT 82–96
[2024-01-04] MEDS: Acetaminophen 325 MG TAB 650 MG PO (04:08)
[2024-01-04] MEDS: Levothyroxine 25 MCG TAB PO (06:15)
[2024-01-04] MEDS: Levothyroxine 112 MCG TAB PO (06:15)
[2024-01-04] MEDS: Lidocaine 2% Jelly 11 ML SYR UR (06:25)
[2024-01-04] MEDS: Docusate Sodium 100 MG CAP 200 MG PO (08:20)
[2024-01-04] MEDS: Aspirin E.C. 81 MG TABEC PO (08:21)
[2024-01-04] MEDS: Magnesium Oxide 400 MG TAB PO ×2 (08:21→20:07)
[2024-01-04] MEDS: Gabapentin 800 MG TAB PO ×2 (08:21→20:06)
[2024-01-04] MEDS: Tamsulosin 0.4 MG CAPCR PO (08:22)
[2024-01-04] MEDS: clonazePAM 0.5 MG TAB PO ×2 (08:22→20:07)
[2024-01-04] MEDS: amLODIPine 5 MG TAB PO (08:22)
[2024-01-04] MEDS: Ticagrelor 90 MG TAB PO ×2 (08:22→20:07)
[2024-01-04] MEDS: Cephalexin 500 MG CAP PO ×3 (08:23→20:06)
[2024-01-04] MEDS: Methadone Liquid 10 MG/ML 60 MG PO ×2 (08:23→20:06)
[2024-01-04] MEDS: Esomeprazole 40 MG CAPCR PO (08:23)
[2024-01-04] MEDS: Cholecalciferol (Vitamin D3) 1,000 UNIT TAB 1000 UNITS PO (08:23)
[2024-01-04] MEDS: Carvedilol 12.5 MG TAB PO (08:57)
[2024-01-04] MEDS: Normal Saline Flush 10 ML SYR IVP (08:57)
[2024-01-04] MEDS: Insulin Aspart 300 UNITS/3 ML PEN SC (08:58)
[2024-01-04 11:13] LABS: Abs Immature Grans 0.02 10^3/uL (0.0-0.06); Absolute Basophil Count 0.05 10^3/uL (0.0-0.2); Absolute Eosinophil Count 0.34 10^3/uL (0.0-0.7); Absolute Lymphocyte Count 1.57 10^3/uL (1.2-3.4); Absolute Monocyte Count 0.59 10^3/uL (0.1-0.8); Absolute Neutrophil Count 2.92 10^3/uL (1.2-6.7); Basophils % 0.9; Eosinophils % 6.2; HCT 29.6 % (40.0-50.0); HGB 9.9 g/dL (13.5-17.5); Immature Grans % 0.4; Lymphocytes % 28.6; MCH 29.4 pg (27.0-33.0); MCHC 33.4 % (32.0-36.0); MCV 88 fL (80-95); MPV 9.4 fL (8.0-11.0); Monocytes % 10.7; Neutrophils % 53.2; Platelet Count 262 10^3/uL (130-400); RBC 3.37 10^6/uL (4.36-5.78); RDW 13.3 % (11.8-14.1); RDW-SD 43.1 fL; WBC 5.49 10^3/uL (4.4-10.8)
[2024-01-04 11:28] LABS: ALT 36 U/L (16-63); AST 30 U/L (15-37); Albumin 2.2 g/dL (3.4-5.0); Alkaline Phosphatase 139 U/L (46-116); Anion Gap 7.4 mmol/L (3-11); BUN 24 mg/dL (7-18); Bilirubin, Total 0.2 mg/dL (0.2-1.0); CO2 29.6 mmol/L (21.0-32.0); CREATININE 0.9 mg/dL (0.70-1.30); Calcium 8.8 mg/dL (8.5-10.1); Chloride 109 mmol/L (98-107); Estimated GFR 91.31 (mL/min/1.73m2); Glucose 148 mg/dL (74-106); Magnesium 2.1 mg/dL (1.8-2.4); Potassium 3.7 mmol/L (3.5-5.1); Sodium 146 mmol/L (136-145); Total Protein 6.7 g/dL (6.4-8.2)
[2024-01-04 11:38] LABS: Bilirubin Negative (Negative); Blood Large (Negative); Clarity Clear (Clear); Glucose Negative (Negative); Ketones Trace mg/dL (Negative); Leukocyte Esterase Negative (Negative); Nitrite Negative (Negative); Specific Gravity >= 1.030 (1.005-1.025); Urobilinogen 0.2 mg/dL (Up to 0.2); pH 5.5 (5-8)
[2024-01-04 11:46] LABS: Epithelial Cells Rare HPF (Negative); RBC 20-50 HPF (0-2)
[2024-01-04 11:47] LABS: Bacteria Negative HPF (Negative); C & S Indicated? No; Casts 5-10 Hyaline LPF (Negative); Crystals Mod Calcium Oxalate HPF (Negative); Mucus Moderate (Negative)
--- NOTE | 2024-01-04 12:15 | RT.EKG_ITS ---
APPROVED REPORT Exam: Resting ECG Reason for Exam: Nausea, feeling unwell Patient Location: I HR:72 bpm ECG Measurements Heart Rate 72 AXIS MA 178 P 74 QRSd 106 QRS 15 QT 490 T 74 QTc 537 Conclusion Sinus rhythm...normal P axis, V-rate 50- 99 Prolonged QT interval...QTc >500mS Otherwise normal ECG
--- NOTE | 2024-01-04 12:56 | NUR.NOTE ---
Nursing Note: Patient is complaining of nausea, and appears to be trying to vomit. Amanda Bull was notified. Patient refused IV access to give medication.
[2024-01-04 13:10] LABS: Troponin I < 50 ng/L (< or =60)
[2024-01-04] MEDS: Ondansetron O.D.T. 4 MG TABEF PO (13:11)
[2024-01-04 13:49] LABS: Lab Add On Test COMPLETED
[2024-01-04 15:20] LABS: COVID-19 PCR Negative (Negative); Influenza A PCR Negative (Negative); Influenza B PCR Negative (Negative); RSV PCR Negative (Negative)
[2024-01-04 15:22] LABS: Source NASOPHARYNX
[2024-01-04] MEDS: Sennosides/Docusate Sodium TAB 1 TAB PO (20:06)
[2024-01-04] MEDS: Mirtazapine 15 MG TAB PO (20:07)
[2024-01-04] MEDS: ARIPiprazole 5 MG TAB PO (20:07)
[2024-01-04] MEDS: Atorvastatin 40 MG TAB 80 MG PO (20:07)
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
[2024-01-04] MEDS: Insulin Glargine 300 UNITS/3 ML PEN 12 UNITS SC (22:22)
[2024-01-05] MEDS: Levothyroxine 25 MCG TAB PO (05:44)
[2024-01-05] MEDS: Levothyroxine 112 MCG TAB PO (05:44)
--- NOTE | 2024-01-05 07:09 | NUR.NOTE ---
Nursing Note: Error entry, disregard.
[2024-01-05] MEDS: Methadone Liquid 10 MG/ML 60 MG PO ×2 (08:10→19:26)
[2024-01-05] MEDS: Tamsulosin 0.4 MG CAPCR PO (08:11)
[2024-01-05] MEDS: Aspirin E.C. 81 MG TABEC PO (08:11)
[2024-01-05] MEDS: Carvedilol 12.5 MG TAB PO (08:12)
[2024-01-05] MEDS: amLODIPine 5 MG TAB PO (08:12)
[2024-01-05] MEDS: Cholecalciferol (Vitamin D3) 1,000 UNIT TAB 1000 UNITS PO (08:12)
[2024-01-05] MEDS: clonazePAM 0.5 MG TAB PO ×2 (08:12→19:27)
[2024-01-05] MEDS: Esomeprazole 40 MG CAPCR PO (08:12)
[2024-01-05] MEDS: Magnesium Oxide 400 MG TAB PO ×2 (08:13→19:26)
[2024-01-05] MEDS: Gabapentin 800 MG TAB PO ×2 (08:13→19:26)
--- NOTE | 2024-01-05 10:06 | PGE_ITS ---
Date of Service Date of service: 01/05/24 Time of Service: 10:06 Assessment and Plan Assessment and plan (1) Pain and swelling of left forearm: Status: Acute Assessment and plan: Considering venous US if not improving with elevation and lymphedema sleeve Will POCUS: Veins are compressible most likely not a DVT Discussed with Dr. Perdue Exam Narrative Exam Narrative: Mr. Caballero is alert with ongoing expressive aphasia.His right arm is slower distal to a skin tear on the exterior aspect of his elbow. The wound covered by a mepilex does not appear infected. Mr. Caballero verbalizes pain at times during mobilization and the examination of his right arm by nurses. Radial pulse is present, no redness and good cap refill. The edema is dependant and the patient denied pain during examiantion. The ring on his 5th digit is too thight to be removed, thus was unable to examine the skin under the ring. Objective Last Vital Signs Temp 36.5 C 01/04/24 10:46 Pulse 79 01/04/24 08:30 Resp 18 01/04/24 10:46 BP 109/62 01/04/24 10:46 Pulse Ox 95 01/04/24 10:46 Laboratory Results - last 24 hr 01/04/24 01/04/24 01/04/24 11:02 11:25 12:55 WBC 5.49 RBC 3.37 L Hgb 9.9 L Hct 29.6 L MCV 88 MCH 29.4 MCHC 33.4 RDW 13.3 Plt Count 262 MPV 9.4 Immature Gran % 0.4 Neutrophils % 53.2 Lymphocytes % 28.6 Monocytes % 10.7 Eosinophils % 6.2 Basophils % 0.9 Nucleated RBC % 0.0 Absolute Neutrophils 2.92 Absolute Lymphocytes 1.57 Absolute Monocytes 0.59 Absolute Eosinophils 0.34 Absolute Basophils 0.05 Sodium 146 H Potassium 3.7 Chloride 109 H Carbon Dioxide 29.6 Anion Gap 7.4 BUN 24 H Creatinine 0.9 Est GFR (CKD-EPI 2020) 91.31 Glucose 148 H Calcium 8.8 Magnesium 2.1 Total Bilirubin 0.2 AST 30 ALT 36 Alkaline Phosphatase 139 H Troponin I < 50 Total Protein 6.7 Albumin 2.2 L Urine Color Yellow Urine Clarity Clear Urine pH 5.5 Ur Specific [place] >= 1.030 H Urine Protein 100 H Urine Ketones Trace H Urine Blood Large H Urine Nitrite Negative Urine Bilirubin Negative Urine Urobilinogen 0.2 Ur Leukocyte Esterase Negative Urine RBC 20-50 H Urine WBC 3-5 Ur Epithelial Cells Rare Urine Crystals Mod Calcium Oxalate Urine Bacteria Negative Urine Casts 5-10 Hyaline Urine Mucus Moderate Ur Culture Indicated? No Urine Glucose Negative COVID-19 Source NASOPHARYNX SARS-CoV-2 (PCR) Negative Influenza Type A (PCR) Negative Influenza Type B (PCR) Negative RSV (PCR) Negative Add-On Test Request COMPLETED Time Spent with Patient Time Spent with Patient: 25-34 minutes Time was spent: preparing to see the patient(eg.review tests), ordering medications,tests, procedures, referring, communicating with other health intensive care specialist, indepentently interpreting results, counseling the patient and care coordination
[2024-01-05] MEDS: Fosfomycin Tromethamine 3 GM PACKET PO (11:37)
[2024-01-05] MEDS: Insulin Aspart 300 UNITS/3 ML PEN SC ×3 (12:47→17:51)
[2024-01-05] MEDS: Cephalexin 500 MG CAP PO ×2 (14:38→19:26)
[2024-01-05] MEDS: Sennosides/Docusate Sodium TAB 1 TAB PO (19:26)
[2024-01-05] MEDS: Ticagrelor 90 MG TAB PO (19:27)
[2024-01-05] MEDS: ARIPiprazole 5 MG TAB PO (22:36)
[2024-01-05] MEDS: Atorvastatin 40 MG TAB 80 MG PO (22:36)
[2024-01-05] MEDS: Mirtazapine 15 MG TAB PO (22:36)
[2024-01-05] MEDS: Insulin Glargine 300 UNITS/3 ML PEN 12 UNITS SC (22:37)
[2024-01-05] MEDS: Acetaminophen 325 MG TAB 650 MG PO (23:27)
[2024-01-06] MEDS: Levothyroxine 25 MCG TAB PO (06:09)
[2024-01-06] MEDS: Levothyroxine 112 MCG TAB PO (06:09)
[2024-01-06 08:06] VITALS: BP 150/69; PULSE 70; RESP 18; TEMP 35.1; O2SAT 94
[2024-01-06] MEDS: Methadone Liquid 10 MG/ML 60 MG PO ×2 (09:08→20:23)
[2024-01-06] MEDS: Lactulose 20 GM/30 ML CUP PO ×3 (09:09→20:24)
[2024-01-06] MEDS: Polyethylene Glycol 3350 17 GM PACKET PO (09:09)
[2024-01-06] MEDS: Esomeprazole 40 MG CAPCR PO (09:10)
[2024-01-06] MEDS: Tamsulosin 0.4 MG CAPCR PO (09:10)
[2024-01-06] MEDS: Cholecalciferol (Vitamin D3) 1,000 UNIT TAB 1000 UNITS PO (09:11)
[2024-01-06] MEDS: Cephalexin 500 MG CAP PO ×3 (09:11→20:25)
[2024-01-06] MEDS: amLODIPine 5 MG TAB PO (09:11)
[2024-01-06] MEDS: Carvedilol 12.5 MG TAB PO (09:11)
[2024-01-06] MEDS: Gabapentin 800 MG TAB PO ×2 (09:11→20:25)
[2024-01-06] MEDS: clonazePAM 0.5 MG TAB PO ×2 (09:12→20:25)
[2024-01-06] MEDS: Ticagrelor 90 MG TAB PO ×2 (09:12→20:25)
[2024-01-06] MEDS: Docusate Sodium 100 MG CAP 200 MG PO (09:12)
[2024-01-06] MEDS: Aspirin E.C. 81 MG TABEC PO (09:13)
[2024-01-06] MEDS: Magnesium Oxide 400 MG TAB PO ×2 (09:13→20:25)
[2024-01-06] MEDS: Insulin Aspart 300 UNITS/3 ML PEN SC ×4 (09:17→13:07)
--- NOTE | 2024-01-06 15:06 | PT.INNT ---
Date of service: 01/06/24 Time of Service: 14:52 PT Notes Visit Reasons: Cerebrovascular accident Patient refuses to participate in therapy on this date at 13:46, is agreeable to this clinician returning in about an hour. At 14:52 patient refuses a second time. CM aware. Will contact patient again tomorrow.
[2024-01-06] MEDS: Atorvastatin 40 MG TAB 80 MG PO (20:25)
[2024-01-06] MEDS: Sennosides/Docusate Sodium TAB 1 TAB PO (20:25)
[2024-01-06] MEDS: Mirtazapine 15 MG TAB PO (20:25)
[2024-01-06] MEDS: ARIPiprazole 5 MG TAB PO (20:25)
[2024-01-06] MEDS: Insulin Glargine 300 UNITS/3 ML PEN 12 UNITS SC (22:22)
[2024-01-07] MEDS: Acetaminophen 325 MG TAB 650 MG PO (00:23)
[2024-01-07] MEDS: Levothyroxine 25 MCG TAB PO (05:13)
[2024-01-07] MEDS: Levothyroxine 112 MCG TAB PO (05:13)
[2024-01-07] MEDS: Cephalexin 500 MG CAP PO ×3 (09:23→19:24)
[2024-01-07] MEDS: Carvedilol 12.5 MG TAB PO (09:23)
[2024-01-07] MEDS: Esomeprazole 40 MG CAPCR PO (09:23)
[2024-01-07] MEDS: Tamsulosin 0.4 MG CAPCR PO (09:23)
[2024-01-07] MEDS: Polyethylene Glycol 3350 17 GM PACKET PO (09:23)
[2024-01-07] MEDS: amLODIPine 5 MG TAB PO (09:23)
[2024-01-07] MEDS: clonazePAM 0.5 MG TAB PO ×2 (09:24→19:24)
[2024-01-07] MEDS: Gabapentin 800 MG TAB PO ×2 (09:24→19:24)
[2024-01-07] MEDS: Docusate Sodium 100 MG CAP 200 MG PO (09:24)
[2024-01-07] MEDS: Ticagrelor 90 MG TAB PO ×2 (09:24→19:24)
[2024-01-07] MEDS: Magnesium Oxide 400 MG TAB PO ×2 (09:24→19:24)
[2024-01-07] MEDS: Aspirin E.C. 81 MG TABEC PO (09:24)
[2024-01-07] MEDS: Methadone Liquid 10 MG/ML 60 MG PO ×2 (09:25→19:25)
[2024-01-07] MEDS: Cholecalciferol (Vitamin D3) 1,000 UNIT TAB 1000 UNITS PO (09:25)
--- NOTE | 2024-01-07 10:21 | PT.INNT ---
Date of service: 01/07/24 Time of Service: 10:12 PT Notes Visit Reasons: Cerebrovascular accident Patient refuses therapy this morning. Appears subdued. Does not attempt to engage in conversation. CM notified.
[2024-01-07] MEDS: Insulin Aspart 300 UNITS/3 ML PEN SC ×3 (12:50→17:34)
[2024-01-07] MEDS: Sennosides/Docusate Sodium TAB 1 TAB PO (19:24)
[2024-01-07] MEDS: Mirtazapine 15 MG TAB PO (21:48)
[2024-01-07] MEDS: Insulin Glargine 300 UNITS/3 ML PEN 12 UNITS SC (21:48)
[2024-01-07] MEDS: Atorvastatin 40 MG TAB 80 MG PO (21:48)
[2024-01-07] MEDS: ARIPiprazole 5 MG TAB PO (21:48)
[2024-01-08] MEDS: Levothyroxine 25 MCG TAB PO (06:27)
[2024-01-08] MEDS: Levothyroxine 112 MCG TAB PO (06:27)
[2024-01-08 07:47] VITALS: PULSE 80; RESP 20; TEMP 36.4; O2SAT 94
[2024-01-08] MEDS: Cholecalciferol (Vitamin D3) 1,000 UNIT TAB 1000 UNITS PO (08:13)
[2024-01-08] MEDS: Ticagrelor 90 MG TAB PO ×2 (08:13→21:17)
[2024-01-08] MEDS: Polyethylene Glycol 3350 17 GM PACKET PO (08:13)
[2024-01-08] MEDS: Magnesium Oxide 400 MG TAB PO ×2 (08:13→21:18)
[2024-01-08] MEDS: amLODIPine 5 MG TAB PO (08:13)
[2024-01-08] MEDS: Lactulose 20 GM/30 ML CUP PO ×2 (08:13→14:59)
[2024-01-08] MEDS: Esomeprazole 40 MG CAPCR PO (08:13)
[2024-01-08] MEDS: Gabapentin 800 MG TAB PO ×2 (08:14→21:17)
[2024-01-08] MEDS: Carvedilol 12.5 MG TAB PO (08:14)
[2024-01-08] MEDS: Aspirin E.C. 81 MG TABEC PO (08:14)
[2024-01-08] MEDS: Tamsulosin 0.4 MG CAPCR PO (08:14)
[2024-01-08] MEDS: Docusate Sodium 100 MG CAP 200 MG PO (08:14)
[2024-01-08] MEDS: Cephalexin 500 MG CAP PO ×3 (08:14→21:18)
[2024-01-08] MEDS: Methadone Liquid 10 MG/ML 60 MG PO ×2 (08:14→21:19)
[2024-01-08] MEDS: clonazePAM 0.5 MG TAB PO ×2 (08:14→21:17)
[2024-01-08] MEDS: Insulin Aspart 300 UNITS/3 ML PEN SC ×5 (09:37→17:45)
--- NOTE | 2024-01-08 11:00 | W.SPSTP ---
Date of service: 01/08/24 Time of Service: 11:00 Subjective Patient received awake in bed. He was alert and agreeable to therapy. [employer]OWER mattie Mock present as an observer but was not actively involved in session. Good engagement, reduced frustration, somewhat distractable throughout but with good task persistence with redirection. Objective/Assessment/Plan Objective Treatment Techniques & Outcomes: Expressive Language/Word Repetition: Target Word Word Repetition Use target word in lead-in sentence Food + + + + + - Juice + + + - + - - - Pain + + + + + 7 7 Drink + + + + + - Spoon + + + + + - Hand - - - retry at end: + + + + + Yes + + + + + - No + + + + + - Ed + + + + + - Cup + + + + + - TV *7= approximation Cues used to scaffold to correct repetitions: Direct verbal model Direct visual model Simultanous model Use of personal mirror paired with Direct visual model Spontaneous speech: So anyways Me and you Lookin' around and stuff Several other utterances attempted, but unintelligible Assessment Ed was seen today for communication treatment, targeting single syllable functional communication words. Ed was able to repeat or approximate target words with improving accuracy and endurance this date, though with increased difficulty then using the target word within lead-in sentence (1/7 accuracy). Ed continues to benefit from brief sessions targeting functional expressive and receptive language. *Ed remains at chronic heightened risk for aspiration, see ongoing precautions below. FURTHER INPATIENT MANAGER OF SOFTWARE SERVICES: Patient to be followed on unit for trial treatment stimulability with communication and monitoring dysphagia needs - 2-4x weekly. DISCHARGE RECOMMENDATIONS: Recommend MANAGER OF SOFTWARE services at SNF vs Home Health MANAGER OF SOFTWARE at least for initial strategy training with staff for communication and dysphagia. DIET RECOMMENDATIONS: Patient is at high risk of aspiration and should receive close supervision assistance during PO intake, with strict precautions as outlined below. SOLIDS: 5-Minced & Moist Solids LIQUIDS: 0-Thin Liquids - via provale cup or ensure very small sip size and fully upright posture MEDICATIONS: Whole one at a time with sips liquid, or whole in applesauce/pudding Level of Assistance/Supervision: Close supervision/partial assist with trained staff/family for all PO intake Positioning and environment: PO intake only when awake/alert? Reduce auditory and/or visual distractions when eating [place] upright for all PO intake. Oral hygiene Before/after PO intake Using friction with toothbrush on all oral structures as tolerated Additional Safety Strategies: Small sips approx 10mL Small bites approx [id number] COMMUNICATION RECOMMENDATIONS: Comprehension: Reduce length of sentences and complexity of words Utilize demonstration and gesture as much as possible Provide visual aids/resources whenever possible Offer simplified written text whenever possible for patient to review Expression: Allow patient additional time to express self and/or multiple attempts to find word(s) For word finding difficulties during conversation: Provide patient with visual aids (smallest possible field of choice) and allow him to make a choice using pointing or repetition Provide assistance with reading text aloud, encouraging spoken repetition (especially of multisyllabic words) Encourage use of relevant gestures to enhance expression Goals: Supervisor Color Paste Mixing Goals: Patient will remain free from aspiration-related illness, malnutrition, and dehydration. Patient/caregivers will verbalize comprehension of education provided re: dx, strategies to maximize functioning, and role of ST. Short Term Goals: Patient will participate in ongoing diagnostic treatment addressing communication. Patient will tolerate Minced/Moist Diet and Thin liquids without overt s/s aspiration across 2/2 visits. Patient/caregivers will be independent with safe swallow/risk management strategies. Patient has moved rooms since last visit with this clinician - added recommendations to white board for nursing and reminded them of his aspiration precautiosn. Patient will repeat 10 trained functional single 1-syllable words given direct model from clinician with at least 80% accuracy x1-2 sessions. Training list: Food, pain, drink, cup, pain, hand, spoon, Juice, Ed, No, Yes Recommendations Total Time Spent: 25min (11:00-11:25am)
--- NOTE | 2024-01-08 13:54 | PTTR_ITS ---
Date of service: 01/08/24 Time of Service: 13:01 PT Notes Visit Reasons: Cerebrovascular accident Inpatient Physical Therapy Treatment Note [facility] Date: 01/08/24 PRECAUTIONS: Fall, contact, activity as tolerated. 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 SUBJECTIVE: Patient is awake when this clinician approaches for therapy. Initially declines, is persuaded to participate when this clinician counts the days since patient last stood up with therapy. OBJECTIVE: Supine in bed. Riojas catheter in place. Agreeable to therapy. ? PAIN: None reported or observed. Specifically denies pain where clinician supports right hand during transfers. VITALS: monitored by nursing staff. ? Therapeutic Activities (27050s0): Direct one-on-one instruction in dynamic activities to improve functional performance. ? BED MOBILITY/TRANSFERS? Rolling L/R: mod assist of one at shoulder and hip. Patient able to roll to the right, unable / max assist to roll to the left. Supine-sit x2: mod assist first time, min assist second time via handhold for patient to pull himself up as well as min assist behind right knee to assist patient turning hips to be square with EOB.? Sit-supine x2: min assist to raise RLE over EOB and position comfortably. Clinician also had to provide total assist for management of [place] line and bag. ?Sit-stand x8: Min to mod assist using adán walker. First stand mod assist at gait belt with right knee and foot blocked. Stands 2-4 min assist at gait belt, knee blocked, foot was stable. Stands 5-6 were incomplete due to fatigue. Stands 7 & 8 were to transfer on and off commode, after a brief supine rest, and were better than 5 & 6 with regards to patient requiring far less help. Stand #8 was nearly CGA vs min assist, clinician only assisted with balance. ? Stand-sit: CGA-min? Bed-Chair: Min assist stand/pivot to commode without adán walker? Chair-bed: Min assist stand/pivot from commode with adán walker. Provided skilled cues and instruction on performance and technique throughout. Neuromuscular Re-education (23570t2): Activities that facilitate re-education of movement balance, posture, coordination, and proprioception or kinesthetic sense, requiring skilled tactile and verbal cues ? Exercises/techniques: * Seated reaching pratice 3 x1 minute for feed forward dynamic sitting balance * unsupported static sitting 2 x2 minutes * Supported standing tolerance training 6 x30 seconds, with verbal and tactile cues for posture, knee extension. ASSESSMENT:? Patient tolerates therapy well. Speech improves gradually throughout session. At close of session patient reports wow. That was hard. PLAN: Continue global treatment per plan of care to patient tolerance until patient obtains safe discharge plan. TREATMENT CODE/TIME: 53 minutes beginning at 13:01
[2024-01-08] MEDS: ARIPiprazole 5 MG TAB PO (21:17)
[2024-01-08] MEDS: Atorvastatin 40 MG TAB 80 MG PO (21:17)
[2024-01-08] MEDS: Sennosides/Docusate Sodium TAB 1 TAB PO (21:18)
[2024-01-08] MEDS: Insulin Glargine 300 UNITS/3 ML PEN 12 UNITS SC (21:18)
[2024-01-08] MEDS: Mirtazapine 15 MG TAB PO (21:18)
[2024-01-09] MEDS: Levothyroxine 112 MCG TAB PO (05:01)
[2024-01-09] MEDS: Levothyroxine 25 MCG TAB PO (05:01)
[2024-01-09 08:05] VITALS: BP 132/68; PULSE 75; RESP 16; TEMP 36; O2SAT 92
[2024-01-09 08:13] VITALS: BP 132/68; PULSE 75; RESP 16; TEMP 36; O2SAT 92
--- NOTE | 2024-01-09 08:15 | CMACTNOTE_ITS ---
Date of service: 01/09/24 Time of Service: 08:16 Care Management Activity Note Activity Note Text Activity Note Text: SWB1 Plan of care updates: CM: Wheelchair: to be ordered closer to discharge when plan is established. AFC Home: Potential Caregiver met with Ed-awaiting further coordination. Palliative: Urinary retention; beginning voiding trials, michel catheter W/C: now doing one legged transfers with 1 person assist. Would need adán chair. Recommend w/c evaluation. I see this is a very important quality of life issue. As discussed above, we are beginning to see some options for long-term placement for the patient. Process of having patient evaluated for and ordering appropriate wheelchair should be done as soon as feasible. Daughter and healthcare agent Alejandra. [facility] transplant case manager found out about a possible adult chcf placement about [place] miles south of [facility]; they would be willing to manage his methadone for OUD. The other option would be penitentiary in [place] which does have a system for providing methadone for OUD for residence. Unfortunately they have not responded to inquiries from case management (likely because they have no beds available); this penitentiary is about 30 miles from [facility]. Patient is very close to his family and seems to enjoy visits from both his son and his daughter and grandchildren. It has become apparent that there is going to be no long-term placement with in a 10 mile radius of [facility], as family is unable to provide in-home care at this time. Both of these seem toTo align with patient's desire to spend as much time with his family as possible. PT: PRECAUTIONS: Fall, contact, activity as tolerated. 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 SUBJECTIVE: Patient is awake when this clinician approaches for therapy. Initially declines, is persuaded to participate when this clinician counts the days since patient last stood up with therapy. OBJECTIVE: Supine in bed. Michel catheter in place. Agreeable to therapy. ? PAIN: None reported or observed. Specifically denies pain where clinician supports right hand during transfers. BED MOBILITY/TRANSFERS? Rolling L/R: mod assist of one at shoulder and hip. Patient able to roll to the right, unable / max assist to roll to the left. Supine-sit x2: mod assist first time, min assist second time via handhold for patient to pull himself up as well as min assist behind right knee to assist patient turning hips to be square with EOB.? Sit-supine x2: min assist to raise RLE over EOB and position comfortably. Clinician also had to provide total assist for management of Michel line and bag. ?Sit-stand x8: Min to mod assist using adán walker. First stand mod assist at gait belt with right knee and foot blocked. Stands 2-4 min assist at gait belt, knee blocked, foot was stable. Stands 5-6 were incomplete due to fatigue. Stands 7 & 8 were to transfer on and off commode, after a brief supine rest, and were better than 5 & 6 with regards to patient requiring far less help. Stand #8 was nearly CGA vs min assist, clinician only assisted with balance. ?Stand-sit: CGA-min? Bed-Chair: Min assist stand/pivot to commode without adán walker? Chair-bed: Min assist stand/pivot from commode with adán walker. Provided skilled cues and instruction on performance and technique throughout. Neuromuscular Re-education (09904b4): Activities that facilitate re-education of movement balance, posture, coordination, and proprioception or kinesthetic sense, requiring skilled tactile and verbal cues ? Exercises/techniques: * Seated reaching pratice 3 x1 minute for feed forward dynamic sitting balance * unsupported static sitting 2 x2 minutes * Supported standing tolerance training 6 x30 seconds, with verbal and tactile cues for posture, knee extension. ASSESSMENT:? Patient tolerates therapy well. Speech improves gradually throughout session. At close of session patient reports wow. That was hard. PLAN: Continue global treatment per plan of care to patient tolerance until patient obtains safe discharge plan. Speech: remains at chronic heightened risk for aspiration Continues communication treatment, targeting single syllable functional communication words. Ed was able to repeat or approximate target words with improving accuracy and endurance. Ed continues to benefit from brief sessions targeting functional expressive and receptive language. S/T Plan of Care Recommendations: SOLIDS: 5-Minced & Moist Solids LIQUIDS: 0-Thin Liquids - via provale cup or ensure very small sip size and fully upright posture MEDICATIONS: Whole one at a time with sips liquid, or whole in applesauce/pudding Level of Assistance/Supervision: Close supervision/partial assist with trained staff/family for all PO intake Positioning and environment: PO intake only when awake/alert? Reduce auditory and/or visual distractions when eating [place] upright for all PO intake. Oral hygiene Before/after PO intake Using friction with toothbrush on all oral structures as tolerated Additional Safety Strategies: Small sips approx 10mL Small bites approx [id number] COMMUNICATION RECOMMENDATIONS: Comprehension: Reduce length of sentences and complexity of words Utilize demonstration and gesture as much as possible Provide visual aids/resources whenever possible Offer simplified written text whenever possible for patient to review Expression: Allow patient additional time to express self and/or multiple attempts to find word(s) For word finding difficulties during conversation: Provide patient with visual aids (smallest possible field of choice) and allow him to make a choice using pointing or repetition Provide assistance with reading text aloud, encouraging spoken repetition (especially of multisyllabic words) Encourage use of relevant gestures to enhance expression Goals: Warehouse Pricing And Inventory Clerk Goals: Patient will remain free from aspiration-related illness, malnutrition, and dehydration. Patient/caregivers will verbalize comprehension of education provided re: dx, strategies to maximize functioning, and role of ST. Short Term Goals: Patient will participate in ongoing diagnostic treatment addressing communication. Patient will tolerate Minced/Moist Diet and Thin liquids without overt s/s aspiration across 2/2 visits. Patient/caregivers will be independent with safe swallow/risk management strategies. Patient has moved rooms since last visit with this clinician - added recommendations to white board for nursing and reminded them of his aspiration precautiosn. Patient will repeat 10 trained functional single 1-syllable words given direct model from clinician with at least 80% accuracy x1-2 sessions. Training list: Food, pain, drink, cup, pain, hand, spoon, Juice, Ed, No, Yes
[2024-01-09] MEDS: Docusate Sodium 100 MG CAP 200 MG PO (08:43)
[2024-01-09] MEDS: Cephalexin 500 MG CAP PO (08:43)
[2024-01-09] MEDS: Magnesium Oxide 400 MG TAB PO ×2 (08:44→20:21)
[2024-01-09] MEDS: amLODIPine 5 MG TAB PO (08:44)
[2024-01-09] MEDS: Carvedilol 12.5 MG TAB PO (08:44)
[2024-01-09] MEDS: Gabapentin 800 MG TAB PO ×2 (08:45→20:21)
[2024-01-09] MEDS: Aspirin E.C. 81 MG TABEC PO (08:45)
[2024-01-09] MEDS: Cholecalciferol (Vitamin D3) 1,000 UNIT TAB 1000 UNITS PO (08:45)
[2024-01-09] MEDS: Polyethylene Glycol 3350 17 GM PACKET PO (08:46)
[2024-01-09] MEDS: Tamsulosin 0.4 MG CAPCR PO (08:46)
[2024-01-09] MEDS: Esomeprazole 40 MG CAPCR PO (08:46)
[2024-01-09] MEDS: Ticagrelor 90 MG TAB PO ×2 (08:46→20:20)
[2024-01-09] MEDS: clonazePAM 0.5 MG TAB PO ×2 (08:46→20:20)
[2024-01-09] MEDS: Methadone Liquid 10 MG/ML 60 MG PO ×2 (08:47→20:21)
[2024-01-09] MEDS: Insulin Aspart 300 UNITS/3 ML PEN SC ×3 (08:47→13:03)
--- NOTE | 2024-01-09 09:23 | W.SPSTP ---
Date of service: 01/09/24 Time of Service: 08:30 Subjective Patient received awake/upright in bed, immediately following breakfast meal. He was alert and engaged throughout duration of session. RN and adjunct nursing faculty present at end of session for medication administration. Contact precautions donned due to infection in urine. Objective/Assessment/Plan Objective Treatment Techniques & Outcomes: Expressive Language/Word Repetition: Target Word Word Repetition Use target word in lead-in sentence Food + + + + + + Juice + + + - + - - + Pain + + + + + - - Drink - - - 7 7 - Spoon + + + + + + Hand - - + - - - Yes + + + + + - No + + + + + - Ed + + + + + + Cup + + + + + - *7= approximation Cues used to scaffold to correct repetitions: Direct verbal model Direct visual model Simultanous model Spontaneous Speech: visit (unintelligible) 2 out of 5 days so anyways several other attempts though unintelligible Assessment Ed was seen today for communication treatment, targeting single syllable functional communication words. Ed demonstrated progress this session with ability to use the target word within a lead in sentence prompt following multiple repetition initial practice, utilizing direct verbal and visual model. Ed continues to benefit from brief sessions targeting functional expressive and receptive language, working best with familiar tasks that do not increase frustration. *Ed remains at chronic heightened risk for aspiration, see ongoing precautions below. Aspiration precautions are also posted within patient's room. FURTHER INPATIENT MATERIAL DISTRIBUTOR SERVICES: Patient to be followed on unit for trial treatment stimulability with communication and monitoring dysphagia needs - 2-4x weekly. DISCHARGE RECOMMENDATIONS: Recommend MATERIAL DISTRIBUTOR services at SNF vs Home Health MATERIAL DISTRIBUTOR at least for initial strategy training with staff for communication and dysphagia. DIET RECOMMENDATIONS: Patient is at high risk of aspiration and should receive close supervision assistance during PO intake, with strict precautions as outlined below. SOLIDS: 5-Minced & Moist Solids LIQUIDS: 0-Thin Liquids - via provale cup or ensure very small sip size and fully upright posture MEDICATIONS: Whole one at a time with sips liquid, or whole in applesauce/pudding Level of Assistance/Supervision: Close supervision/partial assist with trained staff/family for all PO intake Positioning and environment: PO intake only when awake/alert? Reduce auditory and/or visual distractions when eating [place] upright for all PO intake. Oral hygiene Before/after PO intake Using friction with toothbrush on all oral structures as tolerated Additional Safety Strategies: Small sips approx 10mL Small bites approx [id number] COMMUNICATION RECOMMENDATIONS: Comprehension: Reduce length of sentences and complexity of words Utilize demonstration and gesture as much as possible Provide visual aids/resources whenever possible Offer simplified written text whenever possible for patient to review Expression: Allow patient additional time to express self and/or multiple attempts to find word(s) For word finding difficulties during conversation: Provide patient with visual aids (smallest possible field of choice) and allow him to make a choice using pointing or repetition Provide assistance with reading text aloud, encouraging spoken repetition (especially of multisyllabic words) Encourage use of relevant gestures to enhance expression Goals: Alf Goals: Patient will remain free from aspiration-related illness, malnutrition, and dehydration. Patient/caregivers will verbalize comprehension of education provided re: dx, strategies to maximize functioning, and role of ST. Short Term Goals: Patient will participate in ongoing diagnostic treatment addressing communication. Patient will tolerate Minced/Moist Diet and Thin liquids without overt s/s aspiration across 2/2 visits. Patient/caregivers will be independent with safe swallow/risk management strategies. Patient has moved rooms since last visit with this clinician - added recommendations to white board for nursing and reminded them of his aspiration precautiosn. Patient will repeat 10 trained functional single 1-syllable words given direct model from clinician with at least 80% accuracy x1-2 sessions. Training list: Food, pain, drink, cup, pain, hand, spoon, Juice, Ed, No, Yes Recommendations Total Time Spent: 13 minutes ([id number])
--- NOTE | 2024-01-09 16:36 | PT.INTREAT ---
Date of service: 01/09/24 Time of Service: 11:33 PT Notes Visit Reasons: Cerebrovascular accident Inpatient Physical Therapy Treatment Note [facility] Date: 01/09/24 PRECAUTIONS: Fall, standard, activity as tolerated. Hemiparesis / Hemiplegia due to CVA. Expressive and receptive aphasia. Poor safety awareness. SUBJECTIVE: Patient appears agreeable to therapy initially. Expresses agreement with regards to sitting up in the bedside chair for lunch. OBJECTIVE: Supine in bed. RUE hand in a fist and pressing firmly into mattress, partially tucked under right hip. Pillow under right elbow appears to shift arm forward into a suboptimal position. Hand appears more swollen then it has to this clinician at other times this week. Patient reports pain in the RUE throughout today's treatment. ? PAIN: Yes. RUE. No number given. VITALS: monitored by nursing staff. Therapeutic Activities (53851h7): Direct one-on-one instruction in dynamic activities to improve functional performance. ? BED MOBILITY/TRANSFERS? Rolling L/R: min assist of one to roll to patient's right side. Mod assist of 2 to roll to patient's left. Supine-sit: min assist via handhold for patient to pull up when getting out of bed on left side. To get out of bed on right side takes mod assist of one to maneuver RLE over EOB and then assist patient in pulling to sit. ? Sit-supine: min assist of one to maneuver RLE into bed. ? Sit-stand: min to mod assist of one at gait belt from elevated bed, blocking right knee and foot from shifting position. ?Stand-sit: Min to mod assist of one at gait belt to ensure patient lands securely on the surface he intends to sit on. Patient demonstrates lack of safety awareness. ?Bed-Chair: Mod assist of one at gait belt, as well as blocking right knee and foot, providing verbal cues to patient for sequencing, technique, and positioning ?Chair-bed: Mod assist of one at gait belt, as well as blocking right knee and foot, providing verbal cues to patient for sequencing, technique, and positioning. Clinician moves chair such that patient is transferring to his left. Patient initially agrees to sit up in chair for lunch; however when this clinician turns the chair such that patient can watch his TV, he becomes agitated. Patient grabs at the handrail on the bed, which is approximately 3 feet from the chair in which patient is sitting, and attempts to drag the chair close to the bed. Subsequently, patient refuses to stay in the chair, attempting to transfer himself back to bed before this clinician is ready to help. With verbal cues and redirection, patient and therapist work together to get patient back in bed at close of treatment session before lunch arrives. ? Provided skilled cues and instruction on performance and technique throughout. ASSESSMENT:? Patient has not sat up in his bedside chair for several weeks. Patient has a persisted wet-sounding cough. Therefore, arrangements should be made to improve patient comfort within the bedside chair so that he can tolerate sitting up for meals. PLAN: Continue global strengthening per plan of care until patient obtains a safe discharge plan. TREATMENT CODE/TIME: 25 minutes beginning at 11:33
[2024-01-09] MEDS: Sennosides/Docusate Sodium TAB 1 TAB PO (20:20)
[2024-01-09] MEDS: Atorvastatin 40 MG TAB 80 MG PO (21:08)
[2024-01-09] MEDS: ARIPiprazole 5 MG TAB PO (21:09)
[2024-01-09] MEDS: Mirtazapine 15 MG TAB PO (21:09)
[2024-01-09] MEDS: Insulin Glargine 300 UNITS/3 ML PEN 12 UNITS SC (21:09)
[2024-01-10] MEDS: Levothyroxine 112 MCG TAB PO (05:07)
[2024-01-10] MEDS: Levothyroxine 25 MCG TAB PO (05:07)
[2024-01-10 07:41] VITALS: BP 125/74; PULSE 61; RESP 16; TEMP 36.5; O2SAT 95
[2024-01-10] MEDS: Methadone Liquid 10 MG/ML 60 MG PO ×2 (08:11→20:07)
[2024-01-10] MEDS: Lactulose 20 GM/30 ML CUP PO ×2 (08:11→14:00)
[2024-01-10] MEDS: Cholecalciferol (Vitamin D3) 1,000 UNIT TAB 1000 UNITS PO (08:12)
[2024-01-10] MEDS: Tamsulosin 0.4 MG CAPCR PO (08:12)
[2024-01-10] MEDS: Ticagrelor 90 MG TAB PO ×2 (08:12→20:08)
[2024-01-10] MEDS: Gabapentin 800 MG TAB PO ×2 (08:12→20:08)
[2024-01-10] MEDS: Polyethylene Glycol 3350 17 GM PACKET PO (08:12)
[2024-01-10] MEDS: Docusate Sodium 100 MG CAP 200 MG PO (08:12)
[2024-01-10] MEDS: Magnesium Oxide 400 MG TAB PO ×2 (08:12→20:08)
[2024-01-10] MEDS: Aspirin E.C. 81 MG TABEC PO (08:13)
[2024-01-10] MEDS: amLODIPine 5 MG TAB PO (08:13)
[2024-01-10] MEDS: clonazePAM 0.5 MG TAB PO ×2 (08:13→20:08)
[2024-01-10] MEDS: Carvedilol 12.5 MG TAB PO (08:13)
[2024-01-10] MEDS: Esomeprazole 40 MG CAPCR PO (08:17)
[2024-01-10] MEDS: Insulin Aspart 300 UNITS/3 ML PEN SC ×6 (08:29→17:13)
--- NOTE | 2024-01-10 17:36 | SPP_ITS ---
Date of service: 01/10/24 Time of Service: 17:36 Subjective Ed was contacted at bedside for speech tx this date. He was readily agreeable to session and remained pleasant and cooperative throughout. Visibly distractable at times. Objective/Assessment/Plan Objective Treatment Techniques & Outcomes: Expressive Language/Word Repetition: Target Word Word Repetition Use target word in lead-in sentence Food - - + 7 - Juice + + + + + Pain + + + + + Drink + + + + + Spoon + + 7 7 7 (boon) Hand + + + + + Yes + + + + + - No + + + + + - Ed - - + + - Cup + - + + + *7= approximation Cues used to scaffold to correct repetitions: Direct verbal model Direct visual model Simultanous model Spontaneous Speech: 3 pieces on the paper come on in several other attempts though unintelligible Assessment Ed was seen today for communication treatment, targeting single syllable functional communication words. Ed demonstrated progress this session with accuracy with single words utilizing frequent direct verbal and visual model with emphasis on mouth position for first sound. Ed continues to benefit from brief sessions targeting functional expressive and receptive language, working best with familiar tasks that do not increase frustration. *Ed remains at chronic heightened risk for aspiration, see ongoing precautions below. Aspiration precautions are also posted within patient's room. FURTHER INPATIENT ENAMEL MACHINE OPERATOR SERVICES: Patient to be followed on unit for trial treatment stimulability with communicat ion and monitoring dysphagia needs - 2-4x weekly. DISCHARGE RECOMMENDATIONS: Recommend ENAMEL MACHINE OPERATOR services at SNF vs Home Health ENAMEL MACHINE OPERATOR at least for initial strategy training with staff for communication and dysphagia. DIET RECOMMENDATIONS: Patient is at high risk of aspiration and should receive close supervision assistance during PO intake, with strict precautions as outlined below. SOLIDS: 5-Minced & Moist Solids LIQUIDS: 0-Thin Liquids - via provale cup or ensure very small sip size and fully upright posture MEDICATIONS: Whole one at a time with sips liquid, or whole in applesauce/pudding Level of Assistance/Supervision: Close supervision/partial assist with trained staff/family for all PO intake Positioning and environment: PO intake only when awake/alert? Reduce auditory and/or visual distractions when eating [place] upright for all PO intake. Oral hygiene Before/after PO intake Using friction with toothbrush on all oral structures as tolerated Additional Safety Strategies: Small sips approx 10mL Small bites approx [id number] COMMUNICATION RECOMMENDATIONS: Comprehension: Reduce length of sentences and complexity of words Utilize demonstration and gesture as much as possible Provide visual aids/resources whenever possible Offer simplified written text whenever possible for patient to review Expression: Allow patient additional time to express self and/or multiple attempts to find word(s) For word finding difficulties during conversation: Provide patient with visual aids (smallest possible field of choice) and allow him to make a choice using pointing or repetition Provide assistance with reading text aloud, encouraging spoken repetition (especially of multisyllabic words) Encourage use of relevant gestures to enhance expression Goals: Sheet Metal Layout Mechanic Goals: Patient will remain free from aspiration-related illness, malnutrition, and dehydration. Patient/caregivers will verbalize comprehension of education provided re: dx, strategies to maximize functioning, and role of ST. Short Term Goals: Patient will participate in ongoing diagnostic treatment addressing communication. Patient will tolerate Minced/Moist Diet and Thin liquids without overt s/s aspiration across 2/2 visits. Patient/caregivers will be independent with safe swallow/risk management strategies. Patient has moved rooms since last visit with this clinician - added recommendations to white board for nursing and reminded them of his aspiration precautiosn. Patient will repeat 10 trained functional single 1-syllable words given direct model from clinician with at least 80% accuracy x1-2 sessions. Training list: Food, pain, drink, cup, pain, hand, spoon, Juice, Ed, No, Yes Time spent: 15 minutes
[2024-01-10] MEDS: Sennosides/Docusate Sodium TAB 1 TAB PO (20:08)
[2024-01-10] MEDS: Atorvastatin 40 MG TAB 80 MG PO (22:16)
[2024-01-10] MEDS: ARIPiprazole 5 MG TAB PO (22:16)
[2024-01-10] MEDS: Mirtazapine 15 MG TAB PO (22:16)
[2024-01-10] MEDS: Insulin Glargine 300 UNITS/3 ML PEN 12 UNITS SC (22:26)
[2024-01-11] MEDS: Levothyroxine 25 MCG TAB PO (05:59)
[2024-01-11] MEDS: Levothyroxine 112 MCG TAB PO (05:59)
[2024-01-11 08:20] VITALS: BP 121/67; PULSE 61; RESP 18; TEMP 36.1; O2SAT 96
[2024-01-11] MEDS: Esomeprazole 40 MG CAPCR PO (08:23)
[2024-01-11] MEDS: Docusate Sodium 100 MG CAP 200 MG PO (08:23)
[2024-01-11] MEDS: Tamsulosin 0.4 MG CAPCR PO (08:23)
[2024-01-11] MEDS: Magnesium Oxide 400 MG TAB PO ×2 (08:23→20:46)
[2024-01-11] MEDS: Cholecalciferol (Vitamin D3) 1,000 UNIT TAB 1000 UNITS PO (08:23)
[2024-01-11] MEDS: Aspirin E.C. 81 MG TABEC PO (08:23)
[2024-01-11] MEDS: Ticagrelor 90 MG TAB PO ×2 (08:23→20:46)
[2024-01-11] MEDS: Methadone Liquid 10 MG/ML 60 MG PO ×2 (08:23→20:48)
[2024-01-11] MEDS: clonazePAM 0.5 MG TAB PO ×2 (08:23→20:46)
[2024-01-11] MEDS: Polyethylene Glycol 3350 17 GM PACKET PO (08:23)
[2024-01-11] MEDS: Insulin Aspart 300 UNITS/3 ML PEN SC ×4 (08:24→18:02)
[2024-01-11] MEDS: amLODIPine 5 MG TAB PO (08:24)
[2024-01-11] MEDS: Carvedilol 12.5 MG TAB PO (08:24)
[2024-01-11] MEDS: Gabapentin 800 MG TAB PO ×2 (08:24→20:46)
[2024-01-11] MEDS: Sennosides/Docusate Sodium TAB 1 TAB PO (20:46)
[2024-01-11] MEDS: Mirtazapine 15 MG TAB PO (20:46)
[2024-01-11] MEDS: ARIPiprazole 5 MG TAB PO (20:46)
[2024-01-11] MEDS: Lactulose 20 GM/30 ML CUP PO (20:47)
[2024-01-11] MEDS: Atorvastatin 40 MG TAB 80 MG PO (20:47)
[2024-01-12] MEDS: Levothyroxine 112 MCG TAB PO (06:23)
[2024-01-12] MEDS: Levothyroxine 25 MCG TAB PO (06:23)
[2024-01-12 08:30] VITALS: BP 107/63; PULSE 53; RESP 18; TEMP 36; O2SAT 96
[2024-01-12] MEDS: Methadone Liquid 10 MG/ML 60 MG PO ×2 (08:36→20:21)
[2024-01-12] MEDS: Gabapentin 800 MG TAB PO ×2 (08:37→20:22)
[2024-01-12] MEDS: Polyethylene Glycol 3350 17 GM PACKET PO (08:37)
[2024-01-12] MEDS: Carvedilol 12.5 MG TAB PO (08:38)
[2024-01-12] MEDS: Docusate Sodium 100 MG CAP 200 MG PO (08:39)
[2024-01-12] MEDS: amLODIPine 5 MG TAB PO (08:39)
[2024-01-12] MEDS: Aspirin E.C. 81 MG TABEC PO (08:39)
[2024-01-12] MEDS: clonazePAM 0.5 MG TAB PO ×2 (08:39→20:22)
[2024-01-12] MEDS: Ticagrelor 90 MG TAB PO ×2 (08:39→20:22)
[2024-01-12] MEDS: Esomeprazole 40 MG CAPCR PO (08:39)
[2024-01-12] MEDS: Tamsulosin 0.4 MG CAPCR PO (08:40)
[2024-01-12] MEDS: Cholecalciferol (Vitamin D3) 1,000 UNIT TAB 1000 UNITS PO (08:40)
[2024-01-12] MEDS: Magnesium Oxide 400 MG TAB PO ×2 (12:25→20:22)
[2024-01-12] MEDS: Insulin Aspart 300 UNITS/3 ML PEN SC ×3 (12:26→17:42)
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
[2024-01-12] MEDS: Lactulose 20 GM/30 ML CUP PO (20:21)
[2024-01-12] MEDS: Sennosides/Docusate Sodium TAB 1 TAB PO (20:22)
[2024-01-12] MEDS: ARIPiprazole 5 MG TAB PO (20:22)
[2024-01-12] MEDS: Mirtazapine 15 MG TAB PO (20:22)
[2024-01-12] MEDS: Atorvastatin 40 MG TAB 80 MG PO (20:22)
--- NOTE | 2024-01-12 22:33 | NUR.NOTE ---
Nursing Note:charge reported to me that fingerstick order has been discontinued because he is a swing bed via . I will check the blood sugar anyway before admin of insulin glargine ordered at 2200
--- NOTE | 2024-01-12 22:39 | NUR.NOTE ---
Nursing Note: pt is now refusing fingersticks. stating as best as i can interpret, dont need. pt appears stable at this time. wctm.
[2024-01-13] MEDS: Acetaminophen 325 MG TAB 650 MG PO (01:51)
[2024-01-13] MEDS: Levothyroxine 112 MCG TAB PO (06:20)
[2024-01-13] MEDS: Levothyroxine 25 MCG TAB PO (06:20)
[2024-01-13 07:46] VITALS: BP 102/60; PULSE 63; RESP 18; TEMP 36.2; O2SAT 95
[2024-01-13] MEDS: Magnesium Oxide 400 MG TAB PO ×2 (08:23→21:43)
[2024-01-13] MEDS: Tamsulosin 0.4 MG CAPCR PO (08:23)
[2024-01-13] MEDS: clonazePAM 0.5 MG TAB PO ×2 (08:23→21:42)
[2024-01-13] MEDS: Cholecalciferol (Vitamin D3) 1,000 UNIT TAB 1000 UNITS PO (08:23)
[2024-01-13] MEDS: amLODIPine 5 MG TAB PO (08:23)
[2024-01-13] MEDS: Esomeprazole 40 MG CAPCR PO (08:23)
[2024-01-13] MEDS: Carvedilol 12.5 MG TAB PO (08:23)
[2024-01-13] MEDS: Aspirin E.C. 81 MG TABEC PO (08:23)
[2024-01-13] MEDS: Docusate Sodium 100 MG CAP 200 MG PO (08:23)
[2024-01-13] MEDS: Ticagrelor 90 MG TAB PO ×2 (08:23→21:42)
[2024-01-13] MEDS: Gabapentin 800 MG TAB PO ×2 (08:24→21:43)
[2024-01-13] MEDS: Methadone Liquid 10 MG/ML 60 MG PO ×2 (08:25→21:43)
--- NOTE | 2024-01-13 11:20 | W.NUTRFU ---
Date of service: 01/13/24 Time of Service: 11:20 Nutrition Note NOTE: Pt had calorie count last week and averaged 1105kcals per day and 49g protein from documented intake. Many items were not marked with percentages consumed, which always creates an environment of inaccuracies. However, taking into account that Mr Caballero most certainly consumed more than what was recorded, his intake appears to be supportive, just not ideal to meet his nutrition needs. His weight from 12/31-01/12 resulted in <1kg of a wt gain, but pleased to see no further wt loss. Pt is offered glucerna ONS at meals and encouraged to keep consuming kcal and protein rich foods that he enjoys, like the homemade custard, meatloaf and other meats with gravy, starches like potatoes. Pt's consistencies of food remain minced and moist for aspiration prevention based on WARD ASSISTANT evaluations. Will continue to encourage healthy PO intake and offer ONS supplements at meals. Will continue to monitor weight changes and labs for concerns. Time Spent in Nutritional Counseling and Treatment: 15 minutes
--- NOTE | 2024-01-13 11:58 | SPP_ITS ---
Date of service: 01/13/24 Time of Service: 08:35 Subjective Patient received awake in chair; he was agreeable to brief PUBLIC SERVICES LIBRARIAN session. Ed demonstrated fatigue and distractibility within this session, with eyes closing at times. Contact precautions donned. Objective/Assessment/Plan Objective Treatment Techniques & Outcomes: Expressive Language/Word Repetition: Target Word Word Repetition Use target word in lead-in sentence Food +++++ + Juice 7 7 7 7 natalia - Pain 7 + + + + + Drink NT NT Spoon + + + + + - Hand NT NT Yes + + + + + + No + + + + + - Ed - - - - - - tv + + 7 + + (ter vee) + *7= approximation Cues used to scaffold to correct repetitions: Direct verbal model Direct visual model Simultanous model Spontaneous Speech: hello! doors? (yours?) I'm gonna throw up (denied nausea, unclear if this was intentional) Hard to focus (pt aware of eyes closing) Oh boy amarilisnit that's it (indicating desire to end session) Assessment Ed was seen today for communication treatment, targeting single syllable functional communication words. Ed is demonstrating slow/steady progress overall with single word production, benefiting from direct verbal and visual models for mouth position of initial sound. Of notice, he endorsed feeling it was 'hard to focus' today and did demonstrate signs of increased fatigue. When he experienced difficulty producing the 8th target word (Ed) he stated that's it, successfully communicating desire to end session due to frustration and perseveration of previous targets. Ed continues to benefit from brief sessions targeting functional expressive and receptive language, working best with familiar tasks that do not increase frustration. *Ed remains at chronic heightened risk for aspiration, see ongoing precautions below. Aspiration precautions are also posted within patient's room. FURTHER INPATIENT PUBLIC SERVICES LIBRARIAN SERVICES: Patient to be followed on unit for trial treatment stimulability with communication and monitoring dysphagia needs - 2-4x weekly. DISCHARGE RECOMMENDATIONS: Recommend PUBLIC SERVICES LIBRARIAN services at SNF vs Home Health PUBLIC SERVICES LIBRARIAN at least for initial strategy training with staff for communication and dysphagia. DIET RECOMMENDATIONS: Patient is at high risk of aspiration and should receive close supervision assistance during PO intake, with strict precautions as outlined below. SOLIDS: 5-Minced & Moist Solids LIQUIDS: 0-Thin Liquids - via provale cup or ensure very small sip size and fully upright posture MEDICATIONS: Whole one at a time with sips liquid, or whole in applesauce/pudding Level of Assistance/Supervision: Close supervision/partial assist with trained staff/family for all PO intake Positioning and environment: PO intake only when awake/alert? Reduce auditory and/or visual distractions when eating [place] upright for all PO intake. Oral hygiene Before/after PO intake Using friction with toothbrush on all oral structures as tolerated Additional Safety Strategies: Small sips approx 10mL Small bites approx [id number] COMMUNICATION RECOMMENDATIONS: Comprehension: Reduce length of sentences and complexity of words Utilize demonstration and gesture as much as possible Provide visual aids/resources whenever possible Offer simplified written text whenever possible for patient to review Expression: Allow patient additional time to express self and/or multiple attempts to find word(s) For word finding difficulties during conversation: Provide patient with visual aids (smallest possible field of choice) and allow him to make a choice using pointing or repetition Provide assistance with reading text aloud, encouraging spoken repetition (especially of multisyllabic words) Encourage use of relevant gestures to enhance expression Goals: Fdc Goals: Patient will remain free from aspiration-related illness, malnutrition, and dehydration. Patient/caregivers will verbalize comprehension of education provided re: dx, strategies to maximize functioning, and role of ST. Short Term Goals: Patient will participate in ongoing diagnostic treatment addressing communication. Patient will tolerate Minced/Moist Diet and Thin liquids without overt s/s aspiration across 2/2 visits. Patient/caregivers will be independent with safe swallow/risk management strategies. Patient has moved rooms since last visit with this clinician - added recommendations to white board for nursing and reminded them of his aspiration precautiosn. Patient will repeat 10 trained functional single 1-syllable words given direct model from clinician with at least 80% accuracy x1-2 sessions. Training list: Food, pain, drink, cup, pain, hand, spoon, Juice, Ed, No, Yes Time spent: 10 minutes, [id number] AM
[2024-01-13] MEDS: Insulin Aspart 300 UNITS/3 ML PEN SC ×2 (13:24→17:48)
--- NOTE | 2024-01-13 15:52 | INPN_ITS ---
PT Notes Visit Reasons: Cerebrovascular accident Physical Therapy Swing Bed Level I Progress Note Date: 01/13/2024 Dates of Service: 01/04/2024 - 01/13/2024 Precautions: Fall. Activity as tolerated. Aphasic (global). Motor apraxic. Subjective: Agreeable to sitting up after encouragement. Anxious about how he will do overall moving forward. Nodded yes to trying out living with a caregiver in an [facility] residence. Wondering when her daughter Alejandra can come and visit with him again when he saw the writing on the whiteboard jose r made last 01/01/2024. Patient said yes to this clinician calling her daughter to ask. Objective: General Observation: Resting in bed at initiation of session. [place] catheter in place. Mental Status: Motor apraxia and aphasia limiting ability to comprehend instructions execute movement, and express self Pain: As above Vital Signs: Monitored by nursing staff ROM: Right Upper Extremity: R UE hemiplegia. Tolerates passive shoulder flexion to 60*. Full passive elbow extension, flexion to 90*. Left Upper Extremity: Shoulder, elbow and wrist motion full. Right Lower Extremity: Hip and knee motion WFL passively. Left Lower Extremity: Hip flexion WFL. Hip abduction WFL. Knee flexion WFL. Ankle dorsiflexion WFL. Ankle plantarflexion WFL. Strength: Right Upper Extremity: 0/5 Left Upper Extremity: Shoulder flexion 4/5. Triceps 4/5. Biceps 4/5. Resourcing Advisor strong. Right Lower Extremity: 0/5 Left Lower Extremity: Hip flexors 3/5. Hip abductors 3-/5. Knee flexors 4/5. Kne e extensors 4/5. Ankle dorsiflexors 4-/5. Ankle plantarflexors 4-/5. Bed Mobility/Transfers: supine-sit: moderate assist with maximal visual, verbal, and tactile cueing for movement sequence/motor planning sit-supine: moderate assist to R LE only with maximal visual, verbal, and tactile cueing for movement sequence/motor planning Gait: N/A. Patient non-ambulatory. Balance: Static Sitting: Fair Dynamic Sitting: Poor Static Standing: Poor Dynamic Standing: Unable Special Tests: Mobility Limitations Standardized Measure (unchanged) [facility] AM-PAC 6 clicks Basic Mobility Inpatient Short Form: Raw Score: 12 CMS Score: 69% deficit Informed Consent/Education: Patient and patient's family are agreeable to purpose of PT consult and plan of care. THERA ACT: -Guided patient with supine<>sit movement sequences requiring maximal verbal/tactile/visual cueing and redirection for movement sequencing x 3 minutes. Patient needed more time to process moving B legs to edge of bed, cueing provided to have L LE hook R LE at the ankle. Patient could not tolerate unsupported sitting at edge of be and required minimal assist from clinician due to trunk instability. ASSESSMENT: Level of participation has varied. Patient functionally plateauing and will contnue to require assist of 1 for all transfers. If willing, patient is insistent on not using his hemiwalker but instead would reach for the chair arm rest and squat-pivot onto reclining chair. Motor apraxia, expressive/receptive aphasia, caregiver anxiety limit self efficiency and self-reliance which continue to limit consistent progress with functional mobility performance. Signs of depression continue to limit overall prognosis. Goals: Goals X1 week 1. Supine-Sit SBA NOT MET, CONTINUE 2. Sit-Supine SBA NOT MET, CONTINUE 3. Sit-Stand SBA NOT MET, CONTINUE 4. Stand-Sit SBA NOT MET, CONTINUE 5. Bed-Chair moderate assist with stand pivot technique using hemiwalker on L NOT MET, CONTINUE 6. Chair-Bed moderate assist with stand pivot technique using hemiwalker on L NOT MET, CONTINUE 7. Moderate assist with hemiwalker on L with gait on level surface for at least 15 feet without report of pain nor dyspnea NOT MET, DOWNGRADE TO 5 STEPS 8. Fair static and dynamic standing balance/tolerance NOT MET, CONTINUE Plan of Care/Treatment Plan: 3-5x/week for 2 weeks. Plan of care has been reviewed with the GUEST ASSOCIATE providing the service under Physical Therapy direction. Continue with Physical Therapy intervention for pain management as needed, strengthening, bed mobility, transfers, gait, stairs, balance training, and use of assistive device. -ENSURE CAREGIVER TRAINING IS DONE PRIOR TO D/C TO HOME OR [facility]FC. -Recommended Swing Bed Level I treatment plan: PT intervention 1-2x/day, 3-5 days per week. 1. NEURO RE-ED: Dynamic sitting activities at edge of bed to include reach forward and rotate trunk to R/L with AW on the R UE Static standing tolerance to increase to 5 minutes while holding onto hemiwalker working on increasing R knee ext 2. THERA EX: Supine /seated marches and LAQ with 3 lb AW L UE strengthening using 2 lb DB AP x10 3. Therapeutic Activities Instruction in techniques for bed mobility and transfers Transfer to and from bed to be up for meals using hemiwalker focusing on posture, R knee extension, and pivoting using HEMIWALKER DISCHARGE RECOMMENDATIONS: [] Home with no services [] [] Home with services [specify] [] Home with outpatient PT [] [] SNF for continued rehabilitation [] [facility] [] [] SNF versus LTC based on ability to participate and progress [] [X] SNF vs [facility]FC home based on availability of caregiver support at home. Will require seating assessment for procurement of hemiplegic wheelchair to maximize mobility performance at home. TREATMENT TIME/DATE: x 28 minutes for 2 units (15:52-16:20).
[2024-01-13] MEDS: Atorvastatin 40 MG TAB 80 MG PO (21:43)
[2024-01-13] MEDS: Sennosides/Docusate Sodium TAB 1 TAB PO (21:43)
[2024-01-13] MEDS: Mirtazapine 15 MG TAB PO (21:43)
[2024-01-13] MEDS: ARIPiprazole 5 MG TAB PO (21:43)
[2024-01-14] MEDS: Levothyroxine 25 MCG TAB PO (06:17)
[2024-01-14] MEDS: Levothyroxine 112 MCG TAB PO (06:17)
[2024-01-14 08:51] VITALS: BP 138/61; PULSE 55; RESP 18; TEMP 36.6; O2SAT 96
[2024-01-14] MEDS: Docusate Sodium 100 MG CAP 200 MG PO (09:05)
[2024-01-14] MEDS: Esomeprazole 40 MG CAPCR PO (09:05)
[2024-01-14] MEDS: Aspirin E.C. 81 MG TABEC PO (09:05)
[2024-01-14] MEDS: Ticagrelor 90 MG TAB PO ×2 (09:06→19:12)
[2024-01-14] MEDS: Tamsulosin 0.4 MG CAPCR PO (09:06)
[2024-01-14] MEDS: amLODIPine 5 MG TAB PO (09:06)
[2024-01-14] MEDS: clonazePAM 0.5 MG TAB PO ×2 (09:06→19:12)
[2024-01-14] MEDS: Gabapentin 800 MG TAB PO ×2 (09:06→19:12)
[2024-01-14] MEDS: Cholecalciferol (Vitamin D3) 1,000 UNIT TAB 1000 UNITS PO (09:06)
[2024-01-14] MEDS: Carvedilol 12.5 MG TAB PO (09:06)
[2024-01-14] MEDS: Methadone Liquid 10 MG/ML 60 MG PO ×2 (09:06→19:12)
[2024-01-14] MEDS: Magnesium Oxide 400 MG TAB PO ×2 (09:06→19:12)
[2024-01-14] MEDS: Insulin Aspart 300 UNITS/3 ML PEN SC (13:07)
[2024-01-14] MEDS: Acetaminophen 325 MG TAB 650 MG PO (17:48)
[2024-01-14] MEDS: Insulin Glargine 300 UNITS/3 ML PEN 12 UNITS SC (21:16)
[2024-01-14] MEDS: Atorvastatin 40 MG TAB 80 MG PO (21:16)
[2024-01-14] MEDS: Mirtazapine 15 MG TAB PO (21:16)
[2024-01-14] MEDS: ARIPiprazole 5 MG TAB PO (21:16)
[2024-01-15] MEDS: Levothyroxine 112 MCG TAB PO (05:36)
[2024-01-15] MEDS: Levothyroxine 25 MCG TAB PO (05:36)
[2024-01-15 05:44] VITALS: BP 94/57; PULSE 59; RESP 18; TEMP 36; O2SAT 95
[2024-01-15] MEDS: Methadone Liquid 10 MG/ML 60 MG PO ×2 (08:49→21:40)
[2024-01-15] MEDS: Ticagrelor 90 MG TAB PO ×2 (08:51→21:40)
[2024-01-15] MEDS: Magnesium Oxide 400 MG TAB PO ×2 (08:51→21:41)
[2024-01-15] MEDS: clonazePAM 0.5 MG TAB PO ×2 (08:51→21:41)
[2024-01-15] MEDS: Carvedilol 12.5 MG TAB PO (08:51)
[2024-01-15] MEDS: Docusate Sodium 100 MG CAP 200 MG PO (08:51)
[2024-01-15] MEDS: Cholecalciferol (Vitamin D3) 1,000 UNIT TAB 1000 UNITS PO (08:51)
[2024-01-15] MEDS: Tamsulosin 0.4 MG CAPCR PO (08:51)
[2024-01-15] MEDS: Gabapentin 800 MG TAB PO ×2 (08:51→21:41)
[2024-01-15] MEDS: Esomeprazole 40 MG CAPCR PO (08:51)
[2024-01-15] MEDS: amLODIPine 5 MG TAB PO (08:52)
[2024-01-15] MEDS: Aspirin E.C. 81 MG TABEC PO (08:52)
[2024-01-15] MEDS: Polyethylene Glycol 3350 17 GM PACKET PO (08:52)
[2024-01-15] MEDS: Insulin Aspart 300 UNITS/3 ML PEN SC ×2 (08:57→13:00)
[2024-01-15 09:08] VITALS: BP 114/58; PULSE 64; RESP 18; TEMP 35.1; O2SAT 97
--- NOTE | 2024-01-15 16:15 | PTTR_ITS ---
Date of service: 01/15/24 Time of Service: 16:16 PT Notes Visit Reasons: Cerebrovascular accident Inpatient Physical Therapy Treatment Note [facility] Date: 01/15/24 PRECAUTIONS: Fall, standard, activity as tolerated. SUBJECTIVE: Patient seems to be asking about dates and times, becomes upset when this clinician supplies today's date, indicating a white board where his family wrote a note dating 01/01 and observing that this was 2 weeks ago. Wonders how long he has been in the hospital. Seems to state and then agrees that the days are all running together. OBJECTIVE: Supine in bed. Agreeable to therapy. ? PAIN: RUE hurts when it is touched. VITALS: monitored by nursing staff. ? BED MOBILITY/TRANSFERS? Rolling L/R: not assessed Supine-sit: min assist of one behind right shoulder to help steady patient while he gains his balance. ? Sit-supine: min assist of one to raise right leg into bed. Verbal and visual cues for limb placement, support bilateral feet in order for patient to scoot up to an appropriate height in the bed. ? Sit-stand: mod assist of one at gait belt from elevated bed to adán walker. Patient adamantly refuses socks, extra care is taken to block patient's feet so he doesn't slip. ? Stand-sit: min assist to control descent as well as blocking bilateral feet. ? Bed-Chair: refused. ? Provided skilled cues and instruction on performance and technique throughout. ? Therapeutic Exercises ([id number]): Direct one-on-one instruction in therapeutic exercises to develop strength, endurance, range of motion and flexibility. ? Exercises: * Sit to stands x5 * standing tolerance ranging 10-30 seconds * verbal cues to straighten right knee, shift weight left. Patient is unsuccessful in both attempts. Provided skilled instruction in proper exercise performance Provided skilled manual cues to facilitate proper muscle recruitment and/or form. ASSESSMENT:? Patient tolerates therapy well. Asks why his breathing sounds so rattle-y. Education provided around the importance of sitting up in the chair, especially for meals. Patient indicates agreement. PLAN: Assist patient to transfer to chair for one or more meals tomorrow. Provide caregiver training before patient discharges from the hospital. Continue global strengthening 3-5x per week, per conversation with DPT Arlette Ledezma. TREATMENT CODE/TIME: 35 minutes beginning at 16:16
[2024-01-15] MEDS: Atorvastatin 40 MG TAB 80 MG PO (21:40)
[2024-01-15] MEDS: ARIPiprazole 5 MG TAB PO (21:41)
[2024-01-15] MEDS: Sennosides/Docusate Sodium TAB 1 TAB PO (21:41)
[2024-01-15] MEDS: Mirtazapine 15 MG TAB PO (21:41)
[2024-01-15] MEDS: Insulin Glargine 300 UNITS/3 ML PEN 12 UNITS SC (21:48)
[2024-01-16] MEDS: Levothyroxine 25 MCG TAB PO (06:43)
[2024-01-16] MEDS: Levothyroxine 112 MCG TAB PO (06:43)
[2024-01-16] MEDS: Esomeprazole 40 MG CAPCR PO (06:43)
[2024-01-16 08:31] VITALS: BP 116/63; PULSE 64; RESP 12; TEMP 36.4; O2SAT 95
[2024-01-16] MEDS: Aspirin E.C. 81 MG TABEC PO (08:33)
[2024-01-16] MEDS: Magnesium Oxide 400 MG TAB PO ×2 (08:33→21:17)
[2024-01-16] MEDS: clonazePAM 0.5 MG TAB PO ×2 (08:34→21:16)
[2024-01-16] MEDS: amLODIPine 5 MG TAB PO (08:34)
[2024-01-16] MEDS: Tamsulosin 0.4 MG CAPCR PO (08:34)
[2024-01-16] MEDS: Ticagrelor 90 MG TAB PO ×2 (08:34→21:16)
[2024-01-16] MEDS: Cholecalciferol (Vitamin D3) 1,000 UNIT TAB 1000 UNITS PO (08:34)
[2024-01-16] MEDS: Gabapentin 800 MG TAB PO ×2 (08:34→21:17)
[2024-01-16] MEDS: Carvedilol 12.5 MG TAB PO (08:35)
[2024-01-16] MEDS: Docusate Sodium 100 MG CAP 200 MG PO (08:35)
[2024-01-16] MEDS: Polyethylene Glycol 3350 17 GM PACKET PO (08:35)
[2024-01-16] MEDS: Methadone Liquid 10 MG/ML 60 MG PO ×2 (08:35→21:16)
[2024-01-16] MEDS: Insulin Aspart 300 UNITS/3 ML PEN SC (09:38)
[2024-01-16] MEDS: Atorvastatin 40 MG TAB 80 MG PO (21:16)
[2024-01-16] MEDS: ARIPiprazole 5 MG TAB PO (21:16)
[2024-01-16] MEDS: Sennosides/Docusate Sodium TAB 1 TAB PO (21:17)
[2024-01-16] MEDS: Mirtazapine 15 MG TAB 30 MG PO (21:17)
[2024-01-16] MEDS: Insulin Glargine 300 UNITS/3 ML PEN 12 UNITS SC (23:02)
[2024-01-17] MEDS: Levothyroxine 25 MCG TAB PO (05:31)
[2024-01-17] MEDS: Levothyroxine 112 MCG TAB PO (05:31)
[2024-01-17 08:01] VITALS: BP 112/62; PULSE 58; RESP 18; TEMP 36.8; O2SAT 94
[2024-01-17] MEDS: Methadone Liquid 10 MG/ML 60 MG PO ×2 (09:12→20:26)
[2024-01-17] MEDS: Docusate Sodium 100 MG CAP 200 MG PO (09:13)
[2024-01-17] MEDS: Esomeprazole 40 MG CAPCR PO (09:14)
[2024-01-17] MEDS: Ticagrelor 90 MG TAB PO ×2 (09:14→20:27)
[2024-01-17] MEDS: Gabapentin 800 MG TAB PO ×2 (09:14→20:27)
[2024-01-17] MEDS: Aspirin E.C. 81 MG TABEC PO (09:14)
[2024-01-17] MEDS: Carvedilol 12.5 MG TAB PO (09:14)
[2024-01-17] MEDS: Tamsulosin 0.4 MG CAPCR PO (09:15)
[2024-01-17] MEDS: Magnesium Oxide 400 MG TAB PO ×2 (09:15→20:27)
[2024-01-17] MEDS: amLODIPine 5 MG TAB PO (09:15)
[2024-01-17] MEDS: Cholecalciferol (Vitamin D3) 1,000 UNIT TAB 1000 UNITS PO (09:15)
[2024-01-17] MEDS: clonazePAM 0.5 MG TAB PO ×2 (09:15→20:27)
--- NOTE | 2024-01-17 11:31 | PDOC.CMACT ---
Date of service: 01/17/24 Time of Service: 11:31 Care Management Activity Note Activity Note Text Activity Note Text: S/O: Ed remains in SB-1 status. He had been refusing to get out of bed but has been up in the chair at least once in the past day or two. His daughter Alejandra has not been in to see him since her baby was born a couple of weeks ago and CM has been unable to reach her. Ed watches TV and interacts with staff. He is unable to read or do puzzles ot other activities because of the deficits left from his stroke. Plans are still moving forward with the [facility] home placement. A: Ed is a 73 year old man admitted on 10/31/23 with pneumonia . P: Ed will likely transition to an [facility] ([facility] home in [place] when the paper work is completed. CM will continue to follow snd support Ed and his dicharge planning needs.
[2024-01-17] MEDS: Insulin Aspart 300 UNITS/3 ML PEN SC (17:56)
--- NOTE | 2024-01-17 18:55 | W.PM.PROGNOT ---
Date of Service Date of service: 01/17/24 Time of Service: 17:45 Assessment and Plan Assessment and plan (1) Coughing: Status: Acute Assessment and plan: Transient coughing reported after patient self-fed while lying down flat. No further distress as per visual exam and nursing reporting stable vitals w/o desaturation ; will continue to monitor over the next 24-48 hours for aspiration of food bolus into the lungs Discussed with Dr. Glynn Subjective Subjective Interval history since last seen: Nursing reporting that patient cough while self- feeding; patient is coughing w/o cyanosis, vital signs stable w/o desaturation. When seen later that day, the patient was clam in bed w/o cyanosis, respiratory distress or cough. No report of further distress during evening meal. Exam Const General: no acute distress Nutritional Appearance: cachectic Orientation: alert Resp Effort & Inspection: normal respiratory effort, no cough, no grunting, not labored, no nasal flaring, no paradoxical thoraco-abdom movements, no respiratory distress, no tripod positioning, no use of accessory muscles and No prolonged expiratory phase Objective Last Vital Signs Temp 36.8 C 01/17/24 08:01 Pulse 58 L 01/17/24 08:01 Resp 18 01/17/24 08:01 BP 112/62 01/17/24 08:01 Pulse Ox 94 01/17/24 08:01 Time Spent with Patient Time Spent with Patient: <25 minutes Time was spent: ordering medications,tests, procedures and referring, communicating with other health healthcare consultant
[2024-01-17] MEDS: Sennosides/Docusate Sodium TAB 1 TAB PO (20:27)
[2024-01-17] MEDS: Mirtazapine 15 MG TAB 30 MG PO (21:36)
[2024-01-17] MEDS: Insulin Glargine 300 UNITS/3 ML PEN 12 UNITS SC (21:36)
[2024-01-17] MEDS: ARIPiprazole 5 MG TAB PO (21:36)
[2024-01-17] MEDS: Atorvastatin 40 MG TAB 80 MG PO (21:37)
[2024-01-18] MEDS: Levothyroxine 112 MCG TAB PO (06:23)
[2024-01-18] MEDS: Levothyroxine 25 MCG TAB PO (06:23)
[2024-01-18 07:46] VITALS: BP 130/67; PULSE 66; RESP 16; TEMP 36.4; O2SAT 96
[2024-01-18 07:50] LABS: Abs Immature Grans 0.03 10^3/uL (0.0-0.06); Absolute Basophil Count 0.06 10^3/uL (0.0-0.2); Absolute Eosinophil Count 0.23 10^3/uL (0.0-0.7); Absolute Lymphocyte Count 1.22 10^3/uL (1.2-3.4); Absolute Monocyte Count 0.57 10^3/uL (0.1-0.8); Absolute Neutrophil Count 6.68 10^3/uL (1.2-6.7); Basophils % 0.7; Eosinophils % 2.6; HCT 33.4 % (40.0-50.0); HGB 10.9 g/dL (13.5-17.5); Immature Grans % 0.3; Lymphocytes % 13.9; MCH 28.8 pg (27.0-33.0); MCHC 32.6 % (32.0-36.0); MCV 88 fL (80-95); MPV 9.9 fL (8.0-11.0); Monocytes % 6.5; Platelet Count 331 10^3/uL (130-400); RBC 3.79 10^6/uL (4.36-5.78); RDW 13.2 % (11.8-14.1); RDW-SD 42.5 fL; WBC 8.79 10^3/uL (4.4-10.8)
[2024-01-18 07:56] LABS: Anion Gap 7.3 mmol/L (3-11); BUN 27 mg/dL (7-18); CO2 28.7 mmol/L (21.0-32.0); Calcium 8.9 mg/dL (8.5-10.1); Chloride 107 mmol/L (98-107); Estimated GFR 80.47 (mL/min/1.73m2); Glucose 213 mg/dL (74-106); Potassium 4.1 mmol/L (3.5-5.1); Sodium 143 mmol/L (136-145)
[2024-01-18] MEDS: Ticagrelor 90 MG TAB PO ×2 (09:29→20:00)
[2024-01-18] MEDS: Aspirin E.C. 81 MG TABEC PO (09:30)
[2024-01-18] MEDS: clonazePAM 0.5 MG TAB PO ×2 (09:30→19:59)
[2024-01-18] MEDS: Esomeprazole 40 MG CAPCR PO (09:30)
[2024-01-18] MEDS: Gabapentin 800 MG TAB PO ×2 (09:30→20:00)
[2024-01-18] MEDS: Magnesium Oxide 400 MG TAB PO ×2 (09:30→20:00)
[2024-01-18] MEDS: Carvedilol 12.5 MG TAB PO (09:31)
[2024-01-18] MEDS: amLODIPine 5 MG TAB PO (09:31)
[2024-01-18] MEDS: Docusate Sodium 100 MG CAP 200 MG PO (09:31)
[2024-01-18] MEDS: Cholecalciferol (Vitamin D3) 1,000 UNIT TAB 1000 UNITS PO (09:31)
[2024-01-18] MEDS: Tamsulosin 0.4 MG CAPCR PO (09:32)
[2024-01-18] MEDS: Insulin Aspart 300 UNITS/3 ML PEN SC ×3 (09:34→17:38)
[2024-01-18] MEDS: Methadone Liquid 10 MG/ML 60 MG PO ×2 (09:36→19:59)
[2024-01-18] MEDS: Sennosides/Docusate Sodium TAB 1 TAB PO (20:00)
[2024-01-18] MEDS: Insulin Glargine 300 UNITS/3 ML PEN 12 UNITS SC (21:45)
[2024-01-18] MEDS: ARIPiprazole 5 MG TAB PO (21:45)
[2024-01-18] MEDS: Mirtazapine 15 MG TAB 30 MG PO (21:45)
[2024-01-18] MEDS: Atorvastatin 40 MG TAB 80 MG PO (21:45)
[2024-01-19] MEDS: Levothyroxine 25 MCG TAB PO (06:33)
[2024-01-19] MEDS: Levothyroxine 112 MCG TAB PO (06:33)
[2024-01-19 07:53] VITALS: BP 131/50; PULSE 53; RESP 18; TEMP 36.4; O2SAT 95
[2024-01-19] MEDS: clonazePAM 0.5 MG TAB PO ×2 (08:43→20:58)
[2024-01-19] MEDS: Ticagrelor 90 MG TAB PO ×2 (08:43→20:58)
[2024-01-19] MEDS: Tamsulosin 0.4 MG CAPCR PO (08:43)
[2024-01-19] MEDS: Aspirin E.C. 81 MG TABEC PO (08:43)
[2024-01-19] MEDS: Docusate Sodium 100 MG CAP 200 MG PO (08:43)
[2024-01-19] MEDS: Gabapentin 800 MG TAB PO ×2 (08:43→20:58)
[2024-01-19] MEDS: Cholecalciferol (Vitamin D3) 1,000 UNIT TAB 1000 UNITS PO (08:43)
[2024-01-19] MEDS: amLODIPine 5 MG TAB PO (08:44)
[2024-01-19] MEDS: Carvedilol 12.5 MG TAB PO (08:44)
[2024-01-19] MEDS: Magnesium Oxide 400 MG TAB PO ×2 (08:44→20:58)
[2024-01-19] MEDS: Methadone Liquid 10 MG/ML 60 MG PO ×2 (08:44→20:57)
[2024-01-19] MEDS: Insulin Aspart 300 UNITS/3 ML PEN SC ×3 (09:28→17:44)
[2024-01-19] MEDS: Insulin Glargine 300 UNITS/3 ML PEN 12 UNITS SC (20:57)
[2024-01-19] MEDS: Sennosides/Docusate Sodium TAB 1 TAB PO (20:58)
[2024-01-19] MEDS: Atorvastatin 40 MG TAB 80 MG PO (20:58)
[2024-01-19] MEDS: ARIPiprazole 5 MG TAB PO (20:58)
[2024-01-19] MEDS: Mirtazapine 15 MG TAB 30 MG PO (20:58)
[2024-01-20 07:36] VITALS: BP 134/60; PULSE 63; RESP 18; TEMP 36.6; O2SAT 95
[2024-01-20] MEDS: Ticagrelor 90 MG TAB PO ×2 (09:15→20:20)
[2024-01-20] MEDS: Aspirin E.C. 81 MG TABEC PO (09:15)
[2024-01-20] MEDS: Esomeprazole 40 MG CAPCR PO (09:15)
[2024-01-20] MEDS: Docusate Sodium 100 MG CAP 200 MG PO (09:15)
[2024-01-20] MEDS: Tamsulosin 0.4 MG CAPCR PO (09:15)
[2024-01-20] MEDS: clonazePAM 0.5 MG TAB PO ×2 (09:15→20:20)
[2024-01-20] MEDS: Magnesium Oxide 400 MG TAB PO ×2 (09:15→20:21)
[2024-01-20] MEDS: Gabapentin 800 MG TAB PO ×2 (09:15→20:20)
[2024-01-20] MEDS: Carvedilol 12.5 MG TAB PO (09:15)
[2024-01-20] MEDS: amLODIPine 5 MG TAB PO (09:15)
[2024-01-20] MEDS: Cholecalciferol (Vitamin D3) 1,000 UNIT TAB 1000 UNITS PO (09:15)
[2024-01-20] MEDS: Methadone Liquid 10 MG/ML 60 MG PO ×2 (09:16→20:19)
[2024-01-20] MEDS: Insulin Aspart 300 UNITS/3 ML PEN SC ×2 (13:10→17:45)
--- NOTE | 2024-01-20 13:27 | SPP_ITS ---
Date of service: 01/20/24 Time of Service: 08:50 Subjective Patient received awake in chair; he was agreeable to brief SEMICONDUCTOR TESTING GROUP LEADER session, with high engagement and effort throughout session. Objective/Assessment/Plan Objective Treatment Techniques & Outcomes: Expressive Language/Word Reptetition: Target Word Word Repetition Use target word in lead-in sentence Muffin + + + + + + Juice + + + + + - Cranberry 7 7 + + + + Apple 7 7 7 + + - Yes - - - + + - No + + + + + + Pain - - - + + - TV +++++ + brownie 7 7 7 + + - 7= approximation Cues used to scaffold to correct repetitions: Direct verbal model Direct visual model Simultanous model Spontaneous Speech: hello! tomorrow Oh yeah Ok. That's it (indicating end of session) Additional attempts made, but unintelligible Assessment Ed was seen today for communication treatment, sitting up in a chair after breakfast, targeting single syllable functional communication words. Ed is demonstrating slow/steady progress overall with single word production, benefiting from direct verbal and visual models for mouth position of initial sound. Clinician attempted to have Ed generate target practice words with prompting (What is a dessert you like?, What kind of juice do you like?) with fair success, with patient utilizing total communication successfully. He created [place] with hand for 'brownie', clinician guessed cookie, patient indicated this response was similar with facial expression/vocalization. Ed demonstrated high frequency of perseveration of previous targets throughout this session and benefited from visual models for correction. He was highly engaged during the session, and appropriately requested ending the session 15 minutes in due to the frustration with perseveration, though he remained in high spirits. *Ed remains at chronic heightened risk for aspiration, see ongoing precautions below. Aspiration precautions are also posted within patient's room. FURTHER INPATIENT SEMICONDUCTOR TESTING GROUP LEADER SERVICES: Patient to be followed on unit for trial treatment stimulability with communication and monitoring dysphagia needs - 2-4x weekly. DISCHARGE RECOMMENDATIONS: Recommend SEMICONDUCTOR TESTING GROUP LEADER services at SNF vs Home Health SEMICONDUCTOR TESTING GROUP LEADER at least for initial strategy training with staff for communication and dysphagia. DIET RECOMMENDATIONS: Patient is at high risk of aspiration and should receive close supervision assistance during PO intake, with strict precautions as outlined below. SOLIDS: 5-Minced & Moist Solids LIQUIDS: 0-Thin Liquids - via provale cup or ensure very small sip size and fully upright posture MEDICATIONS: Whole one at a time with sips liquid, or whole in applesauce/pudding Level of Assistance/Supervision: Close supervision/partial assist with trained staff/family for all PO intake Positioning and environment: PO intake only when awake/alert? Reduce auditory and/or visual distractions when eating [place] upright for all PO intake. Oral hygiene Before/after PO intake Using friction with toothbrush on all oral structures as tolerated Additional Safety Strategies: Small sips approx 10mL Small bites approx [id number] COMMUNICATION RECOMMENDATIONS: Comprehension: Reduce length of sentences and complexity of words Utilize demonstration and gesture as much as possible Provide visual aids/resources whenever possible Offer simplified written text whenever possible for patient to review Expression: Allow patient additional time to express self and/or multiple attempts to find word(s) For word finding difficulties during conversation: Provide patient with visual aids (smallest possible field of choice) and allow him to make a choice using pointing or repetition Provide assistance with reading text aloud, encouraging spoken repetition (especially of multisyllabic words) Encourage use of relevant gestures to enhance expression Goals: Long-Term Goals: Patient will remain free from aspiration-related illness, malnutrition, and dehydration. Patient/caregivers will verbalize comprehension of education provided re: dx, strategies to maximize functioning, and role of ST. Short Term Goals: Patient will participate in ongoing diagnostic treatment addressing communication. Patient will tolerate Minced/Moist Diet and Thin liquids without overt s/s aspiration across 2/2 visits. Patient/caregivers will be independent with safe swallow/risk management strategies. Patient has moved rooms since last visit with this clinician - added recommendations to white board for nursing and reminded them of his aspiration precautiosn. Patient will repeat 10 trained functional single 1-syllable words given direct model from clinician with at least 80% accuracy x1-2 sessions. Training list: Food, pain, drink, cup, pain, hand, spoon, Juice, Ed, No, Yes
--- NOTE | 2024-01-20 15:29 | PT.INPN ---
PT Notes Visit Reasons: Cerebrovascular accident Physical Therapy Swing Bed Level I Progress Note Date: 01/20/2024 Dates of Service: 01/13/2024 - 01/20/24 Precautions: Fall. Activity as tolerated. Aphasic (global). Motor apraxic. Subjective: Declines treatment earlier in the day. In the afternoon, he is agreeable to sitting up after encouragement. Adamantly refuses sit-stand transfer. Objective: General Observation: Resting in bed at initiation of session. Riojas catheter in place. Pleasant, but frustrated with difficulty word finding. Mental Status: Motor apraxia and aphasia limiting ability to comprehend instructions execute movement, and express self Pain: As above Vital Signs: Monitored by nursing staff ROM: Right Upper Extremity: R UE hemiplegia. Tolerates passive shoulder flexion to 60*. Full passive elbow extension, flexion to 90*. Left Upper Extremity: Shoulder, elbow and wrist motion full. Right Lower Extremity: Hip and knee motion WFL passively. Left Lower Extremity: Hip flexion WFL. Hip abduction WFL. Knee flexion WFL. Ankle dorsiflexion to neutral. Ankle plantarflexion WFL. Strength: Right Upper Extremity: 0/5 Left Upper Extremity: Shoulder flexion 4/5. Triceps 4/5. Biceps 4/5. Civil Engineering Intern strong. Right Lower Extremity: 0/5 Left Lower Extremity: Hip flexors 3/5. Hip abductors 3-/5. Knee flexors 4/5. Knee extensors 4/5. Ankle dorsiflexors 4-/5. Ankle plantarflexors 4-/5. Bed Mobility/Transfers: supine-sit: moderate assist with maximal visual, verbal, and tactile cueing for movement sequence/motor planning. Performs with HOB elevated to 30* sit-supine: moderate assist to R LE only with maximal visual, verbal, and tactile cueing for movement sequence/motor planning sit-stand: declines during this session. Previously able to demonstrate sit-stand with mod A and adán walker. Gait: N/A. Patient non-ambulatory. Balance: Static Sitting: Fair Dynamic Sitting: Poor Static Standing: Poor Dynamic Standing: Unable Informed Consent/Education: Patient is agreeable to purpose of PT consult and plan of care. Therapeutic Exercises ([id number]) Instructed in the following: ankle pumps 10x2, AROM left, PROM right left heel slides 10x2 left SLR 20x, max cues for knee extension seated march 10x seated LAQ 10x seated left shoulder flexion 10x, mod A at trunk ASSESSMENT: Level of participation has varied, with frequent refusals of treatment. He has participated in only a single PT session this week, despite daily attempts. Patient functionally plateauing and will contnue to require assist of 1 for all transfers. Motor apraxia, expressive/receptive aphasia, caregiver anxiety limit self efficiency and self-reliance which continue to limit consistent progress with functional mobility performance. Signs of depression continue to limit overall prognosis. Goals: Goals X1 week 1. Supine-Sit SBA NOT MET, CONTINUE 2. Sit-Supine SBA NOT MET, CONTINUE 3. Sit-Stand SBA NOT MET, CONTINUE 4. Stand-Sit SBA NOT MET, CONTINUE 5. Bed-Chair moderate assist with stand pivot technique using hemiwalker on L NOT MET, CONTINUE 6. Chair-Bed moderate assist with stand pivot technique using hemiwalker on L NOT MET, CONTINUE 7. Moderate assist with hemiwalker on L with gait on level surface for at least 15 feet without report of pain nor dyspnea NOT MET, DOWNGRADE TO 5 STEPS 8. Fair static and dynamic standing balance/tolerance NOT MET, CONTINUE Plan of Care/Treatment Plan: 3-5x/week for 2 weeks. Plan of care has been reviewed with the POWDER AND PRIMER CANNING LEADER providing the service under Physical Therapy direction. Continue with Physical Therapy intervention for pain management as needed, strengthening, bed mobility, transfers, gait, stairs, balance training, and use of assistive device. -ENSURE CAREGIVER TRAINING IS DONE PRIOR TO D/C TO HOME OR AFC. -Recommended Swing Bed Level I treatment plan: PT intervention 1-2x/day, 3-5 days per week. 1. NEURO RE-ED: Dynamic sitting activities at edge of bed to include reach forward and rotate trunk to R/L with AW on the R UE Static standing tolerance to increase to 5 minutes while holding onto hemiwalker working on increasing R knee ext 2. THERA EX: Supine /seated marches and LAQ with 3 lb AW L UE strengthening using 2 lb DB AP x10 3. Therapeutic Activities Instruction in techniques for bed mobility and transfers Transfer to and from bed to be up for meals using hemiwalker focusing on posture, R knee extension, and pivoting using HEMIWALKER DISCHARGE RECOMMENDATIONS: [] Home with no services [] [] Home with services [specify] [] Home with outpatient PT [] [] SNF for continued rehabilitation [] Residential Care [] [] SNF versus LTC based on ability to participate and progress [] [X] SNF vs AFC home based on availability of caregiver support at home. Will require seating assessment for procurement of hemiplegic wheelchair to maximize mobility performance at home. TREATMENT TIME/DATE: [id number] x 30 minutes for 2 units ([id number]). Kaila Johnston, PT, DPT [facility]
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
[2024-01-20] MEDS: Atorvastatin 40 MG TAB 80 MG PO (20:19)
[2024-01-20] MEDS: ARIPiprazole 5 MG TAB PO (20:19)
[2024-01-20] MEDS: Mirtazapine 15 MG TAB 30 MG PO (20:20)
[2024-01-20] MEDS: Sennosides/Docusate Sodium TAB 1 TAB PO (20:20)
[2024-01-20] MEDS: Insulin Glargine 300 UNITS/3 ML PEN 12 UNITS SC (20:55)
[2024-01-21] MEDS: Levothyroxine 112 MCG TAB PO (05:53)
[2024-01-21] MEDS: Levothyroxine 25 MCG TAB PO (05:54)
[2024-01-21 07:59] VITALS: BP 135/55; PULSE 61; RESP 18; TEMP 35.8; O2SAT 93
[2024-01-21] MEDS: Insulin Aspart 300 UNITS/3 ML PEN SC ×2 (09:11→17:46)
[2024-01-21] MEDS: Ticagrelor 90 MG TAB PO ×2 (09:12→20:55)
[2024-01-21] MEDS: Methadone Liquid 10 MG/ML 60 MG PO ×2 (09:12→20:55)
[2024-01-21] MEDS: clonazePAM 0.5 MG TAB PO ×2 (09:12→20:55)
[2024-01-21] MEDS: Tamsulosin 0.4 MG CAPCR PO (09:12)
[2024-01-21] MEDS: Docusate Sodium 100 MG CAP 200 MG PO (09:12)
[2024-01-21] MEDS: Aspirin E.C. 81 MG TABEC PO (09:12)
[2024-01-21] MEDS: amLODIPine 5 MG TAB PO (09:12)
[2024-01-21] MEDS: Esomeprazole 40 MG CAPCR PO (09:13)
[2024-01-21] MEDS: Carvedilol 12.5 MG TAB PO (09:13)
[2024-01-21] MEDS: Cholecalciferol (Vitamin D3) 1,000 UNIT TAB 1000 UNITS PO (09:13)
[2024-01-21] MEDS: Magnesium Oxide 400 MG TAB PO ×2 (09:13→20:55)
[2024-01-21] MEDS: Gabapentin 800 MG TAB PO ×2 (09:13→20:54)
--- NOTE | 2024-01-21 15:11 | PT.INTREAT ---
Date of service: 01/21/24 Time of Service: 14:50 PT Notes Visit Reasons: Cerebrovascular accident Inpatient Physical Therapy Treatment Note [facility] Date: 01/21/24 PRECAUTIONS: Fall, contact, activity as tolerated SUBJECTIVE: Patient is alert in bed, makes noises of indecision before agreeing to therapy. Per FREYA Hernandez, patient did sit up in bedside recliner for lunch today. OBJECTIVE: Patient is supine in bed, pillow under left hip, agreeable to therapy. ? PAIN: c/o back pain. FREYA Hernandez aware. VITALS: monitored by nursing staff. Therapeutic Activities ([id number]): Direct one-on-one instruction in dynamic activities to improve functional performance. ? BED MOBILITY/TRANSFERS? Rolling L/R: mod assist of one to manage legs, with bed rail, to roll right (toward affected side) dependent to roll left. Supine-sit: min assist of one via handhold for patient to pull up into sitting. Patient maneuvers his own bilateral LE out of bed with SBA and verbal cues. ? Sit-supine: mod assist of one to maneuver LLE into bed. ? Sit-stand: x2, mod assist pulling up at ait belt, supporting RUE, blocking RLE at the foot and the knee. Patient is wearing hospital socks today, so his feet slide less. ?Stand-sit: min assist at gait belt, verbal cues to reach back for sitting surface are not acknowledged. ? Provided skilled cues and instruction on performance and technique throughout. ASSESSMENT:? Patient tolerates therapy well, remains agreeable / smiling. Reports that he requires hygiene assistance, would like to close therapy session. RN Mary notified. PLAN: Continue global strengthening, balance training, transfer training per plan of care until patient is medically cleared for discharge. TREATMENT CODE/TIME: 16 minutes beginning at 14:50
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
[2024-01-21] MEDS: Insulin Glargine 300 UNITS/3 ML PEN 12 UNITS SC (20:54)
[2024-01-21] MEDS: Mirtazapine 15 MG TAB 30 MG PO (20:54)
[2024-01-21] MEDS: Atorvastatin 40 MG TAB 80 MG PO (20:55)
[2024-01-21] MEDS: ARIPiprazole 5 MG TAB PO (20:55)
[2024-01-21] MEDS: Sennosides/Docusate Sodium TAB 1 TAB PO (20:55)
[2024-01-22] MEDS: Levothyroxine 112 MCG TAB PO (05:37)
[2024-01-22] MEDS: Levothyroxine 25 MCG TAB PO (05:37)
[2024-01-22] MEDS: Ticagrelor 90 MG TAB PO ×2 (08:43→21:15)
[2024-01-22] MEDS: clonazePAM 0.5 MG TAB PO ×2 (08:43→21:16)
[2024-01-22] MEDS: Esomeprazole 40 MG CAPCR PO (08:44)
[2024-01-22] MEDS: Carvedilol 12.5 MG TAB PO (08:44)
[2024-01-22] MEDS: Magnesium Oxide 400 MG TAB PO ×2 (08:44→21:16)
[2024-01-22] MEDS: Cholecalciferol (Vitamin D3) 1,000 UNIT TAB 1000 UNITS PO (08:45)
[2024-01-22] MEDS: Aspirin E.C. 81 MG TABEC PO (08:46)
[2024-01-22] MEDS: Gabapentin 800 MG TAB PO ×2 (08:46→21:16)
[2024-01-22] MEDS: Tamsulosin 0.4 MG CAPCR PO (08:46)
[2024-01-22] MEDS: amLODIPine 5 MG TAB PO (08:46)
[2024-01-22] MEDS: Methadone Liquid 10 MG/ML 60 MG PO ×2 (08:47→21:15)
--- NOTE | 2024-01-22 09:33 | CMACTNOTE_ITS ---
Date of service: 01/22/24 Time of Service: 09:33 Care Management Activity Note Activity Note Text Activity Note Text: S/O: Ed remains in SB-1 status. He has been inconsistent with his willingness to participate with PT. His children had been visiting regularly, mostly in the evenings, however recently his daughter has not visited and it is unclear if his son is still coming. The process to transition Ed to an adult family senior living continues. Yesterday he met with Roxann Ortega from [facility] to discuss the MFP (Money Follows the Person) program. Roxann explained that as part of the [employer] program, money can be allotted for the purchase of personal items. She used the example of a nice , comfortable recliner for his room at the [facility] home. Ed seemed pleased about the prospect of being able to add some personal touches to his room. When asked if he was still happy about the transition, he responded to Roxann over the issa!. If all goes well, Ed could transfer as soon as the first full week in January. A: Ed is a 73 year old man admitted on 10/31/23 with pneumonia . P: Ed will likely transition to an [facility] ([facility]ult Family Care) home in [place] when the paper work is completed. CM will continue to follow snd support Ed and his dicharge planning needs.
[2024-01-22] MEDS: Insulin Aspart 300 UNITS/3 ML PEN SC ×2 (10:03→14:13)
[2024-01-22 17:04] VITALS: BP 127/67; PULSE 60; RESP 16; TEMP 35.6; O2SAT 96
[2024-01-22] MEDS: Atorvastatin 40 MG TAB 80 MG PO (21:15)
[2024-01-22] MEDS: Sennosides/Docusate Sodium TAB 1 TAB PO (21:15)
[2024-01-22] MEDS: ARIPiprazole 5 MG TAB PO (21:15)
[2024-01-22] MEDS: Mirtazapine 15 MG TAB 30 MG PO (21:16)
[2024-01-22] MEDS: Insulin Glargine 300 UNITS/3 ML PEN 12 UNITS SC (21:16)
[2024-01-22] MEDS: Acetaminophen 325 MG TAB 650 MG PO (21:26)
[2024-01-23] MEDS: Levothyroxine 25 MCG TAB PO (05:35)
[2024-01-23] MEDS: Levothyroxine 112 MCG TAB PO (05:35)
[2024-01-23 08:20] VITALS: BP 136/64; PULSE 64; RESP 17; TEMP 35.2; O2SAT 94
[2024-01-23] MEDS: Methadone Liquid 10 MG/ML 60 MG PO ×2 (09:05→20:50)
[2024-01-23] MEDS: Polyethylene Glycol 3350 17 GM PACKET PO (09:05)
[2024-01-23] MEDS: Esomeprazole 40 MG CAPCR PO (09:05)
[2024-01-23] MEDS: Lactulose 20 GM/30 ML CUP PO (09:05)
[2024-01-23] MEDS: Carvedilol 12.5 MG TAB PO (09:06)
[2024-01-23] MEDS: Ticagrelor 90 MG TAB PO ×2 (09:06→20:48)
[2024-01-23] MEDS: clonazePAM 0.5 MG TAB PO ×2 (09:06→20:48)
[2024-01-23] MEDS: amLODIPine 5 MG TAB PO (09:06)
[2024-01-23] MEDS: Cholecalciferol (Vitamin D3) 1,000 UNIT TAB 1000 UNITS PO (09:06)
[2024-01-23] MEDS: Docusate Sodium 100 MG CAP 200 MG PO (09:06)
[2024-01-23] MEDS: Tamsulosin 0.4 MG CAPCR PO (09:07)
[2024-01-23] MEDS: Gabapentin 800 MG TAB PO ×2 (09:07→20:48)
[2024-01-23] MEDS: Aspirin E.C. 81 MG TABEC PO (09:07)
[2024-01-23] MEDS: Magnesium Oxide 400 MG TAB PO ×2 (09:07→20:47)
[2024-01-23] MEDS: Insulin Aspart 300 UNITS/3 ML PEN SC ×2 (14:22→17:53)
--- NOTE | 2024-01-23 16:25 | PT.INTREAT ---
Date of service: 01/23/24 Time of Service: 15:42 PT Notes Visit Reasons: Cerebrovascular accident Inpatient Physical Therapy Treatment Note [facility] Date: 01/23/24 PRECAUTIONS: Fall, contact, activity as tolerated. SUBJECTIVE: Patient reports there's something wrong. States hard and then indicates both sides on his neck at the front, bottom 1/3 near the collar bones. This clinician feels some lumps. RN Mary notified, alerts charge nurse and the decision is made to alert the hospitalist. OBJECTIVE: Supine in bed. Asleep. Wakes easily. Agreeable to therapy. Riojas in place. ? PAIN: none reported. VITALS: monitored by nursing staff. Therapeutic Activities (95362g7): Direct one-on-one instruction in dynamic activities to improve functional performance. ? BED MOBILITY/TRANSFERS? Rolling L/R: not assessed Supine-sit: min assist via handhold for patient to pull into sitting. Patient maneuvers legs out of bed independently ? Sit-supine: not assessed ? Sit-stand x6: mod assist of one at gait belt. ? Stand-sit: min assist of one at gait belt to control descent and location of landing. ? Bed-Chair: mod assist of one at gait belt, as well as blocking right knee and foot ? Chair-bed: not assessed Patient agreeable to sitting up for dinner. BANDER AND CELLOPHANER MACHINE Ladan enters at close of physical therapy treatment, patient agreeable to work with her as well. Provided skilled cues and instruction on performance and technique throughout. ASSESSMENT:? Patient requires more frequent mobilization in order to regain strength. PLAN: Continue global strengthening per plan of care until patient obtains safe discharge plan. Provide caregiver training before patient discharges. TREATMENT CODE/TIME: 42 minutes beginning at 15:42
--- NOTE | 2024-01-23 16:50 | W.SPSTP ---
Date of service: 01/23/24 Time of Service: 16:15 Subjective Ed was seen sitting upright in a chair, immediately following PT. He was agreeable to PRINT MACHINE OPERATOR intervention and put forth high effort. Ed demonstrated increased confusion today. He was observed to stare off in the room and then asked this clinician 'you see that?' when asked if he was hallucinating he laughed and shrugged. Objective/Assessment/Plan Objective Treatment Techniques & Outcomes: Expressive Language/Word Reptetition: Target Word Word Repetition Use target word in lead-in sentence Muffin 7 7 + + + - Juice + + + + + + tv 7 7 + + + + Apple + + + + + - Yes - - - + + - No + + + + + + Pain NT Ed NT brownie NT 7= approximation Cues used to scaffold to correct repetitions: Direct verbal model Direct visual model Simultanous model Spontaneous Speech: you see that? I don't know tenderness Assessment Ed was seen today for communication treatment, sitting up in a chair after breakfast, targeting single syllable functional communication words. He demonstrated increased fatigue today, though high effort with tasks. Nursing entered session for laryngeal palpation as Ed was reporting/indicating pain in throat. PRINT MACHINE OPERATOR palpated throat without evidence of lump/abnormality. He does present with some supraglottic tension, not uncommon in patients with apraxia/oral groping patterns. PRINT MACHINE OPERATOR asked if Ed could have food in throat and offered liquid though this did not help. He began reaching fingers in mouth, expressing he felt something was there- PRINT MACHINE OPERATOR viewed oral cavity and did not find any residue. He removed a small hair from his mouth and became very focused on this and was not redirectable back to session, thus session discontinued. *Ed remains at chronic heightened risk for aspiration, see ongoing precautions below. Aspiration precautions are also posted within patient's room. FURTHER INPATIENT PRINT MACHINE OPERATOR SERVICES: Patient to be followed on unit for trial treatment stimulability with communication and monitoring dysphagia needs - 2-4x weekly. DISCHARGE RECOMMENDATIONS: Recommend PRINT MACHINE OPERATOR services at SNF vs Home Health PRINT MACHINE OPERATOR at least for initial strategy training with staff for communication and dysphagia. DIET RECOMMENDATIONS: Patient is at high risk of aspiration and should receive close supervision assistance during PO intake, with strict precautions as outlined below. SOLIDS: 5-Minced & Moist Solids LIQUIDS: 0-Thin Liquids - via provale cup or ensure very small sip size and fully upright posture MEDICATIONS: Whole one at a time with sips liquid, or whole in applesauce/pudding Level of Assistance/Supervision: Close supervision/partial assist with trained staff/family for all PO intake Positioning and environment: PO intake only when awake/alert? Reduce auditory and/or visual distractions when eating [place] upright for all PO intake. Oral hygiene Before/after PO intake Using friction with toothbrush on all oral structures as tolerated Additional Safety Strategies: Small sips approx 10mL Small bites approx [id number] COMMUNICATION RECOMMENDATIONS: Comprehension: Reduce length of sentences and complexity of words Utilize demonstration and gesture as much as possible Provide visual aids/resources whenever possible Offer simplified written text whenever possible for patient to review Expression: Allow patient additional time to express self and/or multiple attempts to find word(s) For word finding difficulties during conversation: Provide patient with visual aids (smallest possible field of choice) and allow him to make a choice using pointing or repetition Provide assistance with reading text aloud, encouraging spoken repetition (especially of multisyllabic words) Encourage use of relevant gestures to enhance expression Goals: Computer Technology Instructor Goals: Patient will remain free from aspiration-related illness, malnutrition, and dehydration. Patient/caregivers will verbalize comprehension of education provided re: dx, strategies to maximize functioning, and role of ST. Short Term Goals: Patient will participate in ongoing diagnostic treatment addressing communication. Patient will tolerate Minced/Moist Diet and Thin liquids without overt s/s aspiration across 2/2 visits. Patient/caregivers will be independent with safe swallow/risk management strategies. Patient has moved rooms since last visit with this clinician - added recommendations to white board for nursing and reminded them of his aspiration precautiosn. Patient will repeat 10 trained functional single 1-syllable words given direct model from clinician with at least 80% accuracy x1-2 sessions. Training list: Food, pain, drink, cup, pain, hand, spoon, Juice, Ed, No, Yes time: [id number], 20 minutes speech therapy treatment
[2024-01-23] MEDS: Mirtazapine 15 MG TAB 30 MG PO (20:47)
[2024-01-23] MEDS: ARIPiprazole 5 MG TAB PO (20:47)
[2024-01-23] MEDS: Atorvastatin 40 MG TAB 80 MG PO (20:48)
[2024-01-23] MEDS: Sennosides/Docusate Sodium TAB 1 TAB PO (20:48)
[2024-01-23] MEDS: Insulin Glargine 300 UNITS/3 ML PEN 12 UNITS SC (23:24)
[2024-01-24] MEDS: Levothyroxine 112 MCG TAB PO (06:37)
[2024-01-24] MEDS: Levothyroxine 25 MCG TAB PO (06:37)
[2024-01-24] MEDS: Insulin Aspart 300 UNITS/3 ML PEN SC ×2 (09:44→18:56)
[2024-01-24] MEDS: Tamsulosin 0.4 MG CAPCR PO (09:45)
[2024-01-24] MEDS: Methadone Liquid 10 MG/ML 60 MG PO ×2 (09:45→19:58)
[2024-01-24] MEDS: Ticagrelor 90 MG TAB PO ×2 (09:46→20:02)
[2024-01-24] MEDS: amLODIPine 5 MG TAB PO (09:46)
[2024-01-24] MEDS: Esomeprazole 40 MG CAPCR PO (09:46)
[2024-01-24] MEDS: Magnesium Oxide 400 MG TAB PO ×2 (09:46→20:02)
[2024-01-24] MEDS: Gabapentin 800 MG TAB PO ×2 (09:47→20:02)
[2024-01-24] MEDS: clonazePAM 0.5 MG TAB PO ×2 (09:47→20:02)
[2024-01-24] MEDS: Cholecalciferol (Vitamin D3) 1,000 UNIT TAB 1000 UNITS PO (09:47)
[2024-01-24] MEDS: Aspirin E.C. 81 MG TABEC PO (09:47)
[2024-01-24] MEDS: Carvedilol 12.5 MG TAB PO (09:48)
--- NOTE | 2024-01-24 16:01 | PTTR_ITS ---
Date of service: 01/24/24 Time of Service: 14:55 PT Notes Visit Reasons: Cerebrovascular accident Inpatient Physical Therapy Treatment Note [facility] Date: 01/24/24 PRECAUTIONS: Fall, contact, activity as tolerated. SUBJECTIVE: Patient smiles more easily today then he has in over a week, speech is clearer and seems to come more eaily - This clinician is able to understand what patient is trying to convey nearly 50% of the time this treatment session. OBJECTIVE: Supine in bed, agreeable to therapy. Riojas in place. ? PAIN: Patient lays on affected arm at close of treatment session, and that apparently is extremely painful, but prior to that no s/s pain noted. VITALS: monitored by nursing staff. Therapeutic Activities (01682g0 ): Direct one-on-one instruction in dynamic activities to improve functional performance. ? BED MOBILITY/TRANSFERS? Rolling L/R: mod assist of one to manage right UE/LE positioning when rolling to the left, min assist of one at the left hip when rolling right. Supine-sit: mod assist of one via hand hold assist for patient to pull up into sitting, also to assist right leg moving right once foot is on the floor to aid patient balance. ? Sit-supine: min assist of one to lift right leg into bed ? Sit-stand x8: min to mod assist of one at gait belt. Less assistance required from elevated bed, and when patient is cued to push up from sitting surface rather than trying to pull up from adán walker. Cue required every time patient stands. Patient grouses good-naturedly at the correction every time. ?Stand-sit: min assist at gait belt to help control descent, RLE blocked at knee or foot to keep foot from sliding forward unexpectedly. ?Bed-Chair x2: Transfer toward unaffected side: min assist at gait belt, assist primarily at medial aspect of right foot and anterior right knee, blocking so that patient can use that limb for support during transfer. Of note, patient does not typically stand fully upright when transferring. ? Chair-bed x2: Transfer toward affected side: min assist at gait belt, assist primarily at medial aspect of right foot and anterior right knee, blocking so that patient can use that limb for support during transfer. Patient successfully makes 3 small hops with the left leg to turn and sit on the bed. Provided skilled cues and instruction on performance and technique throughout. Neuromuscular Re-education ([id number]): Activities that facilitate re-education of movement balance, posture, coordination, and proprioception or kinesthetic sense, requiring skilled tactile and verbal cues ? Exercises/techniques: * seated static balance training - patient's static seated balance is much improved today over earlier this week. Patient able to maintain upright seated position with LUE support for 2.5 minutes x2, and without LUE support for 15 seconds x4 * Static standing balance is also improved today over earlier this week, with patient able to stand with LUE support and CGA for 5-10 seconds x3. ASSESSMENT:? Patient appears well pleased with his performance this date, pausing several times to cheer himself on and asking this clinician to stand one more time x2 prior to close of session. PLAN: Continue transfer training and neuro reeducation per plan of care until patient is ready for discharge. Train caregivers on safe transfer techniques prior to discharge. TREATMENT CODE/TIME: 62 minutes beginning at 14:55
--- NOTE | 2024-01-24 17:55 | W.SPSTP ---
Date of service: 01/24/24 Time of Service: 17:45 Subjective Ed was contacted at bedside, was agreeable to participate in session but appearing again more fatigued, confused this date. He was largely unable to provide any spontaneous verbal conversational responses to clinician questions. Session was terminated after 10 minutes due to patient unable to provide further accurate answers and gesturing to be done/rest. Objective/Assessment/Plan Objective Treatment Techniques & Outcomes: Expressive Language/Word Reptetition: Target Word Word Repetition Use target word in lead-in sentence Hand 7 7 + + + NT Juice 7 7 7 + + NT tv 7 + + 7 - NT cup - + - - - NT Yes NT NT No NT NT Pain + + + + + - Ed NT NT Food + + + + + - 7= approximation Cues used to scaffold to correct repetitions: Direct verbal model Direct visual model Simultanous model Spontaneous Speech: good Assessment Ed was seen today for communication treatment, targeting single syllable functional communication words. Limited session. Patient with reduced energy and accuracy this date as compared with recent weeks, but good effort initially. Appearing with increased confusion. Session terminated early due to decreasing accuracy with stimuli and patient requesting to stop/rest. *Ed remains at chronic heightened risk for aspiration, see ongoing precautions below. Aspiration precautions are also posted within patient's room. FURTHER INPATIENT OXYGEN PLANT OPERATOR SERVICES: Patient to be followed on unit for trial treatment stimulability with communication and monitoring dysphagia needs - 2-4x weekly. DISCHARGE RECOMMENDATIONS: Recommend OXYGEN PLANT OPERATOR services at SNF vs Home Health OXYGEN PLANT OPERATOR at least for initial strategy training with staff for communication and dysphagia. DIET RECOMMENDATIONS: Patient is at high risk of aspiration and should receive close supervision assistance during PO intake, with strict precautions as outlined below. SOLIDS: 5-Minced & Moist Solids LIQUIDS: 0-Thin Liquids - via provale cup or ensure very small sip size and fully upright posture MEDICATIONS: Whole one at a time with sips liquid, or whole in applesauce/pudding Level of Assistance/Supervision: Close supervision/partial assist with trained staff/family for all PO intake Positioning and environment: PO intake only when awake/alert? Reduce auditory and/or visual distractions when eating [place] upright for all PO intake. Oral hygiene Before/after PO intake Using friction with toothbrush on all oral structures as tolerated Additional Safety Strategies: Small sips approx 10mL Small bites approx [id number] COMMUNICATION RECOMMENDATIONS: Comprehension: Reduce length of sentences and complexity of words Utilize demonstration and gesture as much as possible Provide visual aids/resources whenever possible Offer simplified written text whenever possible for patient to review Expression: Allow patient additional time to express self and/or multiple attempts to find word(s) For word finding difficulties during conversation: Provide patient with visual aids (smallest possible field of choice) and allow him to make a choice using pointing or repetition Provide assistance with reading text aloud, encouraging spoken repetition (especially of multisyllabic words) Encourage use of relevant gestures to enhance expression Goals: Retirement Goals: Patient will remain free from aspiration-related illness, malnutrition, and dehydration. Patient/caregivers will verbalize comprehension of education provided re: dx, strategies to maximize functioning, and role of ST. Short Term Goals: Patient will participate in ongoing diagnostic treatment addressing communication. Patient will tolerate Minced/Moist Diet and Thin liquids without overt s/s aspiration across 2/2 visits. Patient/caregivers will be independent with safe swallow/risk management strategies. Patient has moved rooms since last visit with this clinician - added recommendations to white board for nursing and reminded them of his aspiration precautiosn. Patient will repeat 10 trained functional single 1-syllable words given direct model from clinician with at least 80% accuracy x1-2 sessions. Training list: Food, pain, drink, cup, pain, hand, spoon, Juice, Ed, No, Yes time: [id number], 10 minutes speech therapy treatment
[2024-01-24] MEDS: Sennosides/Docusate Sodium TAB 1 TAB PO (19:59)
[2024-01-24] MEDS: Atorvastatin 40 MG TAB 80 MG PO (22:08)
[2024-01-24] MEDS: Mirtazapine 15 MG TAB 30 MG PO (22:08)
[2024-01-24] MEDS: ARIPiprazole 5 MG TAB PO (22:08)
[2024-01-24] MEDS: Insulin Glargine 300 UNITS/3 ML PEN 12 UNITS SC (22:08)
[2024-01-25] MEDS: Levothyroxine 25 MCG TAB PO (06:21)
[2024-01-25] MEDS: Levothyroxine 112 MCG TAB PO (06:21)
[2024-01-25 08:24] VITALS: BP 117/62; PULSE 70; RESP 17; TEMP 35.4; O2SAT 95
[2024-01-25] MEDS: Tamsulosin 0.4 MG CAPCR PO (09:28)
[2024-01-25] MEDS: Ticagrelor 90 MG TAB PO ×2 (09:29→21:08)
[2024-01-25] MEDS: Esomeprazole 40 MG CAPCR PO (09:29)
[2024-01-25] MEDS: Aspirin E.C. 81 MG TABEC PO (09:29)
[2024-01-25] MEDS: amLODIPine 5 MG TAB PO (09:29)
[2024-01-25] MEDS: Magnesium Oxide 400 MG TAB PO ×2 (09:29→21:08)
[2024-01-25] MEDS: clonazePAM 0.5 MG TAB PO ×2 (09:29→21:09)
[2024-01-25] MEDS: Docusate Sodium 100 MG CAP 200 MG PO (09:30)
[2024-01-25] MEDS: Carvedilol 12.5 MG TAB PO (09:30)
[2024-01-25] MEDS: Gabapentin 800 MG TAB PO ×2 (09:31→21:09)
[2024-01-25] MEDS: Cholecalciferol (Vitamin D3) 1,000 UNIT TAB 1000 UNITS PO (09:31)
[2024-01-25] MEDS: Methadone Liquid 10 MG/ML 60 MG PO ×2 (09:32→21:09)
[2024-01-25] MEDS: Insulin Aspart 300 UNITS/3 ML PEN SC ×3 (09:35→17:33)
[2024-01-25] MEDS: Atorvastatin 40 MG TAB 80 MG PO (21:08)
[2024-01-25] MEDS: ARIPiprazole 5 MG TAB PO (21:08)
[2024-01-25] MEDS: Mirtazapine 15 MG TAB 30 MG PO (21:09)
[2024-01-25] MEDS: Sennosides/Docusate Sodium TAB 1 TAB PO (21:09)
[2024-01-25] MEDS: Insulin Glargine 300 UNITS/3 ML PEN 12 UNITS SC (21:10)
[2024-01-26] MEDS: Levothyroxine 25 MCG TAB PO (06:05)
[2024-01-26] MEDS: Levothyroxine 112 MCG TAB PO (06:05)
[2024-01-26 08:11] VITALS: BP 121/63; PULSE 55; RESP 16; TEMP 35; O2SAT 100
[2024-01-26] MEDS: Esomeprazole 40 MG CAPCR PO (08:22)
[2024-01-26] MEDS: clonazePAM 0.5 MG TAB PO ×2 (08:22→20:28)
[2024-01-26] MEDS: Carvedilol 12.5 MG TAB PO (08:23)
[2024-01-26] MEDS: Docusate Sodium 100 MG CAP 200 MG PO (08:23)
[2024-01-26] MEDS: amLODIPine 5 MG TAB PO (08:23)
[2024-01-26] MEDS: Aspirin E.C. 81 MG TABEC PO (08:23)
[2024-01-26] MEDS: Gabapentin 800 MG TAB PO ×2 (08:23→20:28)
[2024-01-26] MEDS: Cholecalciferol (Vitamin D3) 1,000 UNIT TAB 1000 UNITS PO (08:23)
[2024-01-26] MEDS: Tamsulosin 0.4 MG CAPCR PO (08:23)
[2024-01-26] MEDS: Magnesium Oxide 400 MG TAB PO ×2 (08:23→20:28)
[2024-01-26] MEDS: Ticagrelor 90 MG TAB PO ×2 (08:23→20:28)
[2024-01-26] MEDS: Methadone Liquid 10 MG/ML 60 MG PO ×2 (08:24→20:27)
[2024-01-26] MEDS: Polyethylene Glycol 3350 17 GM PACKET PO (08:24)
[2024-01-26] MEDS: Insulin Aspart 300 UNITS/3 ML PEN SC ×3 (08:36→17:51)
[2024-01-26] MEDS: Sennosides/Docusate Sodium TAB 1 TAB PO (20:28)
[2024-01-26] MEDS: Mirtazapine 15 MG TAB 30 MG PO (21:22)
[2024-01-26] MEDS: Atorvastatin 40 MG TAB 80 MG PO (21:22)
[2024-01-26] MEDS: ARIPiprazole 5 MG TAB PO (21:22)
[2024-01-26] MEDS: Insulin Glargine 300 UNITS/3 ML PEN 12 UNITS SC (21:22)
[2024-01-27] MEDS: Levothyroxine 25 MCG TAB PO (05:42)
[2024-01-27] MEDS: Levothyroxine 112 MCG TAB PO (05:42)
[2024-01-27 06:09] LABS: Abs Immature Grans 0.03 10^3/uL (0.0-0.06); Absolute Basophil Count 0.08 10^3/uL (0.0-0.2); Absolute Eosinophil Count 0.13 10^3/uL (0.0-0.7); Absolute Lymphocyte Count 1.43 10^3/uL (1.2-3.4); Absolute Monocyte Count 0.57 10^3/uL (0.1-0.8); Absolute Neutrophil Count 8.04 10^3/uL (1.2-6.7); Basophils % 0.8; Eosinophils % 1.3; HCT 31.8 % (40.0-50.0); HGB 10.2 g/dL (13.5-17.5); Immature Grans % 0.3; Lymphocytes % 13.9; MCH 28.5 pg (27.0-33.0); MCHC 32.1 % (32.0-36.0); MCV 89 fL (80-95); MPV 9.9 fL (8.0-11.0); Monocytes % 5.5; Neutrophils % 78.2; Platelet Count 284 10^3/uL (130-400); RBC 3.58 10^6/uL (4.36-5.78); RDW 13.7 % (11.8-14.1); RDW-SD 44.6 fL; WBC 10.28 10^3/uL (4.4-10.8)
[2024-01-27 06:19] LABS: Anion Gap 7.5 mmol/L (3-11); BUN 32 mg/dL (7-18); CO2 27.5 mmol/L (21.0-32.0); CREATININE 1.2 mg/dL (0.70-1.30); Calcium 8.7 mg/dL (8.5-10.1); Chloride 106 mmol/L (98-107); Estimated GFR 64.65 (mL/min/1.73m2); Glucose 212 mg/dL (74-106); Potassium 4.2 mmol/L (3.5-5.1); Sodium 141 mmol/L (136-145)
[2024-01-27] MEDS: Tamsulosin 0.4 MG CAPCR PO (07:53)
[2024-01-27] MEDS: Gabapentin 800 MG TAB PO ×2 (07:53→20:51)
[2024-01-27] MEDS: clonazePAM 0.5 MG TAB PO ×2 (07:53→20:51)
[2024-01-27] MEDS: Carvedilol 12.5 MG TAB PO (07:53)
[2024-01-27] MEDS: Esomeprazole 40 MG CAPCR PO (07:53)
[2024-01-27] MEDS: Magnesium Oxide 400 MG TAB PO ×2 (07:53→20:50)
[2024-01-27] MEDS: Cholecalciferol (Vitamin D3) 1,000 UNIT TAB 1000 UNITS PO (07:54)
[2024-01-27] MEDS: Aspirin E.C. 81 MG TABEC PO (07:55)
[2024-01-27] MEDS: Docusate Sodium 100 MG CAP 200 MG PO (07:55)
[2024-01-27] MEDS: Methadone Liquid 10 MG/ML 60 MG PO ×2 (07:56→20:53)
[2024-01-27] MEDS: Ticagrelor 90 MG TAB PO ×2 (07:56→20:51)
[2024-01-27 08:16] VITALS: BP 98/60; PULSE 75; RESP 18; TEMP 36.5; O2SAT 93
[2024-01-27] MEDS: Insulin Aspart 300 UNITS/3 ML PEN SC ×3 (09:18→18:07)
--- NOTE | 2024-01-27 11:13 | NUR.NOTE ---
Cleaned up Pt room and repositioned him pt asleep since after breakfast this am only waking up for meals. Nursing Note:
[2024-01-27] MEDS: Sennosides/Docusate Sodium TAB 1 TAB PO (20:51)
[2024-01-27] MEDS: ARIPiprazole 5 MG TAB PO (21:06)
[2024-01-27] MEDS: Mirtazapine 15 MG TAB 30 MG PO (21:07)
[2024-01-27] MEDS: Insulin Glargine 300 UNITS/3 ML PEN 12 UNITS SC (21:07)
[2024-01-27] MEDS: Atorvastatin 40 MG TAB 80 MG PO (21:07)
[2024-01-28] MEDS: Levothyroxine 25 MCG TAB PO (07:18)
[2024-01-28] MEDS: Esomeprazole 40 MG CAPCR PO (07:18)
[2024-01-28] MEDS: Levothyroxine 112 MCG TAB PO (07:18)
[2024-01-28 08:01] VITALS: BP 136/61; PULSE 78; RESP 16; TEMP 36.7; O2SAT 93
[2024-01-28] MEDS: Methadone Liquid 10 MG/ML 60 MG PO ×2 (08:07→21:04)
[2024-01-28] MEDS: amLODIPine 5 MG TAB PO (08:08)
[2024-01-28] MEDS: Ticagrelor 90 MG TAB PO ×2 (08:08→19:43)
[2024-01-28] MEDS: Tamsulosin 0.4 MG CAPCR PO (08:08)
[2024-01-28] MEDS: Docusate Sodium 100 MG CAP 200 MG PO (08:08)
[2024-01-28] MEDS: Carvedilol 12.5 MG TAB PO (08:08)
[2024-01-28] MEDS: Gabapentin 800 MG TAB PO ×2 (08:08→19:43)
[2024-01-28] MEDS: clonazePAM 0.5 MG TAB PO ×2 (08:08→19:43)
[2024-01-28] MEDS: Aspirin E.C. 81 MG TABEC PO (08:08)
[2024-01-28] MEDS: Cholecalciferol (Vitamin D3) 1,000 UNIT TAB 1000 UNITS PO (08:09)
[2024-01-28] MEDS: Magnesium Oxide 400 MG TAB PO ×2 (08:09→19:43)
[2024-01-28] MEDS: Polyethylene Glycol 3350 17 GM PACKET PO (08:14)
[2024-01-28] MEDS: Insulin Aspart 300 UNITS/3 ML PEN SC ×3 (08:27→17:36)
--- NOTE | 2024-01-28 12:52 | NUR.NOTE ---
Patient requesting assistance to commode for bowel movement. Attempted to stand w/ assist x2, gaitbelt and platform walker and assited back to sitting edge of bed. Stedy lift used tx pt to commode. Upon transfer to standing w/ stedy lift pt's RUE became up against stedy lift causing a new wound on right posterior forearm. Wound was cleansed and dressed w/ mepilex ag. Pt was safely assited to chair. Fatmata Birmingham RN :
--- NOTE | 2024-01-28 16:00 | PT.INNT ---
PT Notes Visit Reasons: Cerebrovascular accident Patient refused 2 attempts at PT session today. Will plan on trying another session tomorrow for functional mobility training.
[2024-01-28] MEDS: Sennosides/Docusate Sodium TAB 1 TAB PO (19:43)
[2024-01-28] MEDS: ARIPiprazole 5 MG TAB PO (19:43)
[2024-01-28] MEDS: Atorvastatin 40 MG TAB 80 MG PO (19:44)
[2024-01-28] MEDS: Mirtazapine 15 MG TAB 30 MG PO (21:04)
[2024-01-28] MEDS: Insulin Glargine 300 UNITS/3 ML PEN 12 UNITS SC (21:08)
[2024-01-29] MEDS: Levothyroxine 25 MCG TAB PO (06:48)
[2024-01-29] MEDS: Levothyroxine 112 MCG TAB PO (06:48)
[2024-01-29 08:36] VITALS: BP 145/79; PULSE 72; RESP 16; TEMP 36.5; O2SAT 97
[2024-01-29] MEDS: Polyethylene Glycol 3350 17 GM PACKET PO (08:40)
[2024-01-29] MEDS: Methadone Liquid 10 MG/ML 60 MG PO ×2 (08:40→20:56)
[2024-01-29] MEDS: Magnesium Oxide 400 MG TAB PO ×2 (08:41→20:58)
[2024-01-29] MEDS: Gabapentin 800 MG TAB PO ×2 (08:41→20:58)
[2024-01-29] MEDS: clonazePAM 0.5 MG TAB PO ×2 (08:41→20:57)
[2024-01-29] MEDS: Tamsulosin 0.4 MG CAPCR PO (08:41)
[2024-01-29] MEDS: Ticagrelor 90 MG TAB PO ×2 (08:41→20:57)
[2024-01-29] MEDS: Docusate Sodium 100 MG CAP 200 MG PO (08:41)
[2024-01-29] MEDS: Carvedilol 12.5 MG TAB PO (08:41)
[2024-01-29] MEDS: Esomeprazole 40 MG CAPCR PO (08:41)
[2024-01-29] MEDS: Aspirin E.C. 81 MG TABEC PO (08:41)
[2024-01-29] MEDS: amLODIPine 5 MG TAB PO (08:42)
[2024-01-29] MEDS: Cholecalciferol (Vitamin D3) 1,000 UNIT TAB 1000 UNITS PO (08:42)
[2024-01-29] MEDS: Insulin Aspart 300 UNITS/3 ML PEN SC ×3 (08:45→17:22)
--- NOTE | 2024-01-29 08:54 | PDOC.CMPRO ---
Date of service: 01/29/24 Time of Service: 08:54 Care Management Progress Note Progress Note Text Progress Note Text: S/O: Ed remains in SB-1 status. He has been inconsistent with his willingness to work with PT but participated fully today. Ed will likely transition to his AFC home next week. CM learned this week that the hospital bed Ed has at home may not be adequate. CM also learned that he does not have a regular wheelchair, only a transfer chair which has smaller wheels. Orders were placed by CM in [place] for both a semi-electric bed and a lightweight wheelchair. Additional requests for information were received from [facility]. CM provided as much information as was available. CM also reached out to [facility] for recommendations regarding Ed's methadone dosing but had to leave a message. A: Ed is a 73 year old man admitted on 10/31/23 with pneumonia . P: Ed will likely transition to an [facility] ([facility] Family [facility]) home in [place] when the paper work is completed. CM will continue to follow and support Ed and his discharge planning needs. SDOH(Care Management) Screening Will the Patient Participate in the Screening?: Declined to provide
--- NOTE | 2024-01-29 15:05 | W.NUTRFU ---
Date of service: 01/29/24 Time of Service: 15:05 Nutrition Note NOTE: brief follow up on Edward - pt asleep on visit. Tolerating CHO consistent diet with minced and moist consistencies and mild think liquids. Pt supervised with meals. pt's wt improved significantly with increase to 30mg mertazepine and now up to 75.16kg. Will continue to provide regular meals with ONS at breakfast and dinner (usually boost carb control) Will continue to monitor intake, weight, labs Time Spent in Nutritional Counseling and Treatment: 0
--- NOTE | 2024-01-29 15:18 | PT.INPN ---
PT Notes Visit Reasons: Cerebrovascular accident Physical Therapy Swing Bed Level I Progress Note Date: Dates of Service: 01/14/2024 - 01/29/2024 Precautions: Fall. Activity as tolerated. Aphasic (global). Motor apraxic. Subjective: In a good mood today. Agreeable to getting out of bed and to working with PT. Happy about having seen his new grand baby recently. Looked doubtful about being able to stand up from edge of bed but was convinced when he stood up safely with assist of PT. Objective: General Observation: Resting in bed. Riojas catheter in place. Mental Status: Motor apraxia and aphasia limiting ability to comprehend instructions execute movement, and express self Pain: Denied Vital Signs: Monitored by nursing staff ROM: Right Upper Extremity: R UE hemiplegia. Tolerates passive shoulder flexion to 60*. Full passive elbow extension, flexion to 90*. Left Upper Extremity: Shoulder, elbow and wrist motion full. Right Lower Extremity: Hip and knee motion WFL passively. Left Lower Extremity: Hip flexion WFL. Hip abduction WFL. Knee flexion WFL. Ankle dorsiflexion WFL. Ankle plantarflexion WFL. Strength: Right Upper Extremity: 0/5 Left Upper Extremity: Shoulder flexion 4/5. Triceps 4/5. Biceps 4/5. [employer] Chair strong. Right Lower Extremity: 0/5 Left Lower Extremity: Hip flexors 3/5. Hip abductors 3-/5. Knee flexors 4/5. Knee extensors 4/5. Ankle dorsiflexors 4-/5. Ankle plantarflexors 4-/5. Bed Mobility/Transfers: supine-sit: stand by assist assist with maximal visual, verbal, and tactile cueing for movement sequence/motor planning sit-supine: minimal assist to R LE only with maximal visual, verbal, and tactile cueing for movement sequence/motor planning sit-stand: moderate assist with support provided to R UE and R locking of R knee Gait: N/A. Patient non-ambulatory. Balance: Static Sitting: Fair Dynamic Sitting: Poor Static Standing: Poor Dynamic Standing: Unable Special Tests: Mobility Limitations Standardized Measure (unchanged) [facility] AM-PAC 6 clicks Basic Mobility Inpatient Short Form: Raw Score: 12 CMS Score: 69% deficit Informed Consent/Education: Patient and patient's family are agreeable to purpose of PT consult and plan of care. THERA ACT: Facilitated safe movement transition for supine<>sit x 2 and sit<>stand x 5 working on R UE support and R knee locking with patient able to stand up with moderate assist. Able to maintain L knee extension and back extension for about 30seconds to 1 minute each standing before needing to get up. ASSESSMENT: Level of participation has varied. Patient functionally plateauing and will continue to require assist of 1 for all transfers. If willing, patient is insistent on not using his hemiwalker but instead would reach for the chair arm rest and squat-pivot onto reclining chair. Motor apraxia, expressive/receptive aphasia, caregiver anxiety limit self efficiency and self-reliance which continue to limit consistent progress with functional mobility performance. Signs of depression continue to limit overall prognosis. Goals: Goals X1 week 1. Supine-Sit SBA NOT MET, CONTINUE 2. Sit-Supine SBA NOT MET, CONTINUE 3. Sit-Stand SBA NOT MET, CONTINUE 4. Stand-Sit SBA NOT MET, CONTINUE 5. Bed-Chair moderate assist with stand pivot technique using hemiwalker on L NOT MET, CONTINUE 6. Chair-Bed moderate assist with stand pivot technique using hemiwalker on L NOT MET, CONTINUE 7. Moderate assist with hemiwalker on L with gait on level surface for at least 15 feet without report of pain nor dyspnea NOT MET, DOWNGRADE TO 5 STEPS 8. Fair static and dynamic standing balance/tolerance NOT MET, CONTINUE Plan of Care/Treatment Plan: 3-5x/week for 2 weeks. Plan of care has been reviewed with the BULL GANG WORKER providing the service under Physical Therapy direction. Continue with Physical Therapy intervention for pain management as needed, strengthening, bed mobility, transfers, gait, stairs, balance training, and use of assistive device. -ENSURE CAREGIVER TRAINING IS DONE PRIOR TO D/C TO HOME OR AFC. -Recommended Swing Bed Level I treatment plan: PT intervention 1-2x/day, 3-5 days per week. 1. NEURO RE-ED: Dynamic sitting activities at edge of bed to include reach forward and rotate trunk to R/L with AW on the R UE Static standing tolerance to increase to 5 minutes while holding onto hemiwalker working on increasing R knee ext 2. THERA EX: Supine /seated marches and LAQ with 3 lb AW L UE strengthening using 2 lb DB AP x10 3. Therapeutic Activities Instruction in techniques for bed mobility and transfers Transfer to and from bed to be up for meals using hemiwalker focusing on posture, R knee extension, and pivoting using HEMIWALKER DISCHARGE RECOMMENDATIONS: [] Home with no services [] [] Home with services [specify] [] Home with outpatient PT [] [] SNF for continued rehabilitation [] [facility] [] [] SNF versus LTC based on ability to participate and progress [] [X] SNF vs AFC home based on availability of caregiver support at home. Will require seating assessment for procurement of hemiplegic wheelchair to maximize mobility performance at home. TREATMENT TIME/DATE: x 28 minutes for 2 units (15:18-15:46).
--- NOTE | 2024-01-29 17:54 | W.SPSTP ---
Date of service: 01/29/24 Time of Service: 17:35 Subjective Ed was contacted at bedside, seated fully upright using HOB controls. He was agreeable to participate in speech therapy session. Objective/Assessment/Plan Objective Treatment Techniques & Outcomes: Expressive Language/Word Reptetition: Target Word Word Repetition Use target word in lead-in sentence Hand - - - - - NT Juice + + + + + NT tv + + + + + NT cup + + + + + NT Yes + + + + + + + + No - - - - - NT Pain + + + + + - Robert 7 7 7 7 7 (Yeddie) - Food + - - + - / + + + + + - 7= approximation Cues used to scaffold to correct repetitions: Direct verbal model Direct visual model Simultanous model Spontaneous Speech: miguelina wasserman good do it again Assessment Ed was seen today for communication treatment, targeting single syllable functional communication words. Patient was with increased energy, improved spirits, and his performance with verbal tasks appeared to reflect this as well. Improved accuracy over recent sessions. Patient may be discharging within 1-2 weeks to [facility] per CM notes. Recommend CAMPUS RECEPTIONIST upon discharge for communication strategy training with new caregivers. *Ed remains at chronic heightened risk for aspiration, see ongoing precautions below. Aspiration precautions are also posted within patient's room. FURTHER INPATIENT CAMPUS RECEPTIONIST SERVICES: Patient to be followed on unit for trial treatment stimulability with communication and monitoring dysphagia needs - 2-4x weekly. DISCHARGE RECOMMENDATIONS: Recommend CAMPUS RECEPTIONIST services at SNF vs Home Health CAMPUS RECEPTIONIST at least for initial strategy training with staff for communication and dysphagia. DIET RECOMMENDATIONS: Patient is at high risk of aspiration and should receive close supervision assistance during PO intake, with strict precautions as outlined below. SOLIDS: 5-Minced & Moist Solids LIQUIDS: 0-Thin Liquids - via provale cup or ensure very small sip size and fully upright posture MEDICATIONS: Whole one at a time with sips liquid, or whole in applesauce/pudding Level of Assistance/Supervision: Close supervision/partial assist with trained staff/family for all PO intake Positioning and environment: PO intake only when awake/alert? Reduce auditory and/or visual distractions when eating [place] upright for all PO intake. Oral hygiene Before/after PO intake Using friction with toothbrush on all oral structures as tolerated Additional Safety Strategies: Small sips approx 10mL Small bites approx [id number] COMMUNICATION RECOMMENDATIONS: Comprehension: Reduce length of sentences and complexity of words Utilize demonstration and gesture as much as possible Provide visual aids/resources whenever possible Offer simplified written text whenever possible for patient to review Expression: Allow patient additional time to express self and/or multiple attempts to find word(s) For word finding difficulties during conversation: Provide patient with visual aids (smallest possible field of choice) and allow him to make a choice using pointing or repetition Provide assistance with reading text aloud, encouraging spoken repetition (especially of multisyllabic words) Encourage use of relevant gestures to enhance expression Goals: Fdc Goals: Patient will remain free from aspiration-related illness, malnutrition, and dehydration. Patient/caregivers will verbalize comprehension of education provided re: dx, strategies to maximize functioning, and role of ST. Short Term Goals: Patient will participate in ongoing diagnostic treatment addressing communication. Patient will tolerate Minced/Moist Diet and Thin liquids without overt s/s aspiration across 2/2 visits. Patient/caregivers will be independent with safe swallow/risk management strategies. Patient has moved rooms since last visit with this clinician - added recommendations to white board for nursing and reminded them of his aspiration precautiosn. Patient will repeat 10 trained functional single 1-syllable words given direct model from clinician with at least 80% accuracy x1-2 sessions. Training list: Food, pain, drink, cup, pain, hand, spoon, Juice, Ed, No, Yes time: [id number], 20 minutes speech therapy treatment
[2024-01-29] MEDS: Lactulose 20 GM/30 ML CUP PO (20:56)
[2024-01-29] MEDS: Atorvastatin 40 MG TAB 80 MG PO (20:57)
[2024-01-29] MEDS: ARIPiprazole 5 MG TAB PO (20:57)
[2024-01-29] MEDS: Mirtazapine 15 MG TAB 30 MG PO (20:58)
[2024-01-29] MEDS: Sennosides/Docusate Sodium TAB 1 TAB PO (20:58)
[2024-01-29] MEDS: Insulin Glargine 300 UNITS/3 ML PEN 12 UNITS SC (20:59)
[2024-01-30] MEDS: Levothyroxine 25 MCG TAB PO (06:19)
[2024-01-30] MEDS: Levothyroxine 112 MCG TAB PO (06:19)
[2024-01-30 07:44] VITALS: BP 109/51; PULSE 71; RESP 16; TEMP 36.6; O2SAT 95
[2024-01-30] MEDS: Esomeprazole 40 MG CAPCR PO (08:08)
[2024-01-30] MEDS: Ticagrelor 90 MG TAB PO ×2 (08:08→21:06)
[2024-01-30] MEDS: Docusate Sodium 100 MG CAP 200 MG PO (08:08)
[2024-01-30] MEDS: Magnesium Oxide 400 MG TAB PO ×2 (08:08→21:07)
[2024-01-30] MEDS: clonazePAM 0.5 MG TAB PO ×2 (08:08→21:06)
[2024-01-30] MEDS: Carvedilol 12.5 MG TAB PO (08:08)
[2024-01-30] MEDS: Gabapentin 800 MG TAB PO ×2 (08:09→21:07)
[2024-01-30] MEDS: Tamsulosin 0.4 MG CAPCR PO (08:09)
[2024-01-30] MEDS: amLODIPine 5 MG TAB PO (08:09)
[2024-01-30] MEDS: Aspirin E.C. 81 MG TABEC PO (08:09)
[2024-01-30] MEDS: Cholecalciferol (Vitamin D3) 1,000 UNIT TAB 1000 UNITS PO (08:10)
[2024-01-30] MEDS: Methadone Liquid 10 MG/ML 60 MG PO ×2 (08:12→21:08)
[2024-01-30] MEDS: Insulin Aspart 300 UNITS/3 ML PEN SC ×2 (13:07→18:24)
--- NOTE | 2024-01-30 14:14 | PT.INTREAT ---
PT Notes Visit Reasons: Cerebrovascular accident Inpatient Physical Therapy Treatment Note [facility] Date: 01/30/24 SUBJECTIVE: Ed is agreeable to bed exercises, but will not get OOB today. OBJECTIVE: []? VITALS: ?monitored by PT. ? Therapeutic Exercises ([id number]): Direct one-on-one instruction in therapeutic exercises to develop strength, endurance, range of motion and flexibility. ? Exercises: supine AP, SLR, SAQ, heel slides with manual resistance, hip ab/add x15-20 ea. PROM of right ankle, knee and hip t/o all planes. Attempted bridging ex however he was not able to understand. ? Provided skilled instruction in proper exercise performance ASSESSMENT:? tolerated session. Put forth good effort with ex, but no willing to get OOB. PLAN: will continue to work his strength and improve his functional mobility to his tolerance. TREATMENT CODE/TIME: 15 min [id number]
[2024-01-30] MEDS: Insulin Glargine 300 UNITS/3 ML PEN 12 UNITS SC (21:05)
[2024-01-30] MEDS: Mirtazapine 15 MG TAB 30 MG PO (21:06)
[2024-01-30] MEDS: ARIPiprazole 5 MG TAB PO (21:06)
[2024-01-30] MEDS: Sennosides/Docusate Sodium TAB 1 TAB PO (21:07)
[2024-01-30] MEDS: Atorvastatin 40 MG TAB 80 MG PO (21:07)
[2024-01-31] MEDS: Acetaminophen 325 MG TAB 650 MG PO ×2 (01:42→20:17)
[2024-01-31] MEDS: Esomeprazole 40 MG CAPCR PO (06:38)
[2024-01-31] MEDS: Levothyroxine 112 MCG TAB PO (06:38)
[2024-01-31] MEDS: Levothyroxine 25 MCG TAB PO (06:38)
[2024-01-31] MEDS: Methadone Liquid 10 MG/ML 60 MG PO ×2 (07:49→20:18)
[2024-01-31] MEDS: Magnesium Oxide 400 MG TAB PO ×2 (07:50→20:17)
[2024-01-31] MEDS: clonazePAM 0.5 MG TAB PO ×2 (07:50→20:17)
[2024-01-31] MEDS: Docusate Sodium 100 MG CAP 200 MG PO (07:50)
[2024-01-31] MEDS: Tamsulosin 0.4 MG CAPCR PO (07:50)
[2024-01-31] MEDS: Cholecalciferol (Vitamin D3) 1,000 UNIT TAB 1000 UNITS PO (07:51)
[2024-01-31] MEDS: Gabapentin 800 MG TAB PO ×2 (07:51→20:17)
[2024-01-31] MEDS: Carvedilol 12.5 MG TAB PO (07:51)
[2024-01-31] MEDS: amLODIPine 5 MG TAB PO (07:51)
[2024-01-31] MEDS: Ticagrelor 90 MG TAB PO ×2 (07:51→20:17)
[2024-01-31] MEDS: Aspirin E.C. 81 MG TABEC PO (07:52)
[2024-01-31] MEDS: Insulin Aspart 300 UNITS/3 ML PEN SC ×3 (08:57→17:43)
--- NOTE | 2024-01-31 15:51 | PT.INTREAT ---
PT Notes Visit Reasons: Cerebrovascular accident Date: 01/31/24 PRECAUTIONS: Fall, standard, activity as tolerated. Hemiplegic / hemiparitic right side. Global aphasia. Contact precaution SUBJECTIVE: Pt in bed sleeping when approached for therapy this afternoon, pt agreed to participating with therapy after pt woke up from sleep OBJECTIVE: Supine in bed. Riojas in place. Agreeable to therapy ? PAIN: None reported. VITALS: monitored by nursing staff. Therapeutic Activities ([id number]): Direct one-on-one instruction in dynamic activities to improve functional performance. ? BED MOBILITY/TRANSFERS? Rolling L/R: mod assist to the left. Rolling right not assessed. Supine-sit: mod assist for RLE transfer going to the EOB ? Sit-supine: mod assist to boost right leg over side of bed. ? Sit-stand x3: mod assist at gait belt from low bed, with patient's hand on adán walker and this clinician blocking patient's knee. ? Stand-sit: min A at gait belt, with this clinician also guarding/supporting right arm and blocking right knee ? Standing tolerance training today using Steady lift with emphasis on right terminal knee extensions. terminal knee extensions while doing weight shifting L/R, front/back Bed mobility going upwards and side to side post session mod A Provided skilled cues and instruction on performance and technique throughout. ASSESSMENT:? pt tolerated activity well, pt very tired after therapeutic activity, happy to have participated. PLAN: Continue global strengthening, functional activity tolerance training and neuro reeducation training to patient tolerance per plan of care. Patient would benefit from skilled rehab stay to maximize functional outcomes. TIME: [id number] 25mins ( 3:20-3:45pm)
[2024-01-31] MEDS: Sennosides/Docusate Sodium TAB 1 TAB PO (20:17)
[2024-01-31] MEDS: Mirtazapine 15 MG TAB 30 MG PO (21:31)
[2024-01-31] MEDS: Atorvastatin 40 MG TAB 80 MG PO (21:32)
[2024-01-31] MEDS: Insulin Glargine 300 UNITS/3 ML PEN 12 UNITS SC (21:32)
[2024-01-31] MEDS: ARIPiprazole 5 MG TAB PO (21:32)
[2024-02-01] MEDS: Levothyroxine 112 MCG TAB PO (06:20)
[2024-02-01] MEDS: Levothyroxine 25 MCG TAB PO (06:20)
[2024-02-01 07:44] VITALS: BP 137/52; PULSE 57; RESP 15; TEMP 36.3; O2SAT 97
[2024-02-01] MEDS: clonazePAM 0.5 MG TAB PO ×2 (07:56→20:12)
[2024-02-01] MEDS: Methadone Liquid 10 MG/ML 60 MG PO ×2 (07:57→20:11)
[2024-02-01] MEDS: Insulin Aspart 300 UNITS/3 ML PEN SC ×3 (08:54→17:19)
[2024-02-01] MEDS: Magnesium Oxide 400 MG TAB PO (20:11)
[2024-02-01] MEDS: Ticagrelor 90 MG TAB PO (20:12)
[2024-02-01] MEDS: Gabapentin 800 MG TAB PO (20:12)
[2024-02-01] MEDS: Sennosides/Docusate Sodium TAB 1 TAB PO (20:12)
[2024-02-01] MEDS: Mirtazapine 15 MG TAB 30 MG PO (21:40)
[2024-02-01] MEDS: Atorvastatin 40 MG TAB 80 MG PO (21:40)
[2024-02-01] MEDS: ARIPiprazole 5 MG TAB PO (21:40)
[2024-02-01] MEDS: Insulin Glargine 300 UNITS/3 ML PEN 12 UNITS SC (21:41)
[2024-02-02] MEDS: Levothyroxine 112 MCG TAB PO (06:12)
[2024-02-02] MEDS: Levothyroxine 25 MCG TAB PO (06:13)
[2024-02-02 07:30] VITALS: BP 116/57; PULSE 63; RESP 16; TEMP 35.9; O2SAT 95
[2024-02-02] MEDS: Ticagrelor 90 MG TAB PO ×2 (08:58→20:02)
[2024-02-02] MEDS: Magnesium Oxide 400 MG TAB PO ×2 (08:58→20:00)
[2024-02-02] MEDS: Docusate Sodium 100 MG CAP 200 MG PO (08:58)
[2024-02-02] MEDS: Esomeprazole 40 MG CAPCR PO (08:58)
[2024-02-02] MEDS: amLODIPine 5 MG TAB PO (08:58)
[2024-02-02] MEDS: Tamsulosin 0.4 MG CAPCR PO (08:58)
[2024-02-02] MEDS: clonazePAM 0.5 MG TAB PO ×2 (08:58→20:00)
[2024-02-02] MEDS: Cholecalciferol (Vitamin D3) 1,000 UNIT TAB 1000 UNITS PO (08:58)
[2024-02-02] MEDS: Aspirin E.C. 81 MG TABEC PO (08:58)
[2024-02-02] MEDS: Gabapentin 800 MG TAB PO ×2 (08:59→20:02)
[2024-02-02] MEDS: Methadone Liquid 10 MG/ML 60 MG PO ×2 (08:59→20:02)
[2024-02-02] MEDS: Carvedilol 12.5 MG TAB PO (08:59)
[2024-02-02] MEDS: Insulin Aspart 300 UNITS/3 ML PEN SC ×3 (09:25→17:42)
[2024-02-02 18:02] LABS: Bilirubin Negative (Negative); Blood Moderate (Negative); Clarity Turbid (Clear); Glucose Negative (Negative); Ketones Negative (Negative); Leukocyte Esterase Large (Negative); Nitrite Positive (Negative); Specific Gravity 1.015 (1.005-1.025); Urobilinogen 0.2 mg/dL (Up to 0.2); pH >= 9.0 (5-8)
[2024-02-02 18:13] LABS: Bacteria Many HPF (Negative); C & S Indicated? Yes; Crystals Many Triple Phos HPF (Negative); Other Cells Moderate Yeast (Negative)
[2024-02-02] MEDS: Sennosides/Docusate Sodium TAB 1 TAB PO (20:02)
[2024-02-02] MEDS: Mirtazapine 15 MG TAB 30 MG PO (21:23)
[2024-02-02] MEDS: ARIPiprazole 5 MG TAB PO (21:23)
[2024-02-02] MEDS: Insulin Glargine 300 UNITS/3 ML PEN 12 UNITS SC (21:23)
[2024-02-02] MEDS: Atorvastatin 40 MG TAB 80 MG PO (21:24)
[2024-02-03] MEDS: Levothyroxine 25 MCG TAB PO (05:42)
[2024-02-03] MEDS: Levothyroxine 112 MCG TAB PO (05:42)
[2024-02-03 07:53] VITALS: BP 108/66; PULSE 86; RESP 18; TEMP 36.4; O2SAT 94
[2024-02-03] MEDS: Methadone Liquid 10 MG/ML 60 MG PO ×2 (08:07→20:41)
[2024-02-03] MEDS: Insulin Aspart 300 UNITS/3 ML PEN SC ×3 (08:08→16:55)
[2024-02-03] MEDS: Tamsulosin 0.4 MG CAPCR PO (08:09)
[2024-02-03] MEDS: Gabapentin 800 MG TAB PO ×2 (08:09→20:40)
[2024-02-03] MEDS: Esomeprazole 40 MG CAPCR PO (08:09)
[2024-02-03] MEDS: Docusate Sodium 100 MG CAP 200 MG PO (08:09)
[2024-02-03] MEDS: Carvedilol 12.5 MG TAB PO (08:09)
[2024-02-03] MEDS: Cholecalciferol (Vitamin D3) 1,000 UNIT TAB 1000 UNITS PO (08:09)
[2024-02-03] MEDS: Magnesium Oxide 400 MG TAB PO ×2 (08:09→20:40)
[2024-02-03] MEDS: Polyethylene Glycol 3350 17 GM PACKET PO (08:09)
[2024-02-03] MEDS: clonazePAM 0.5 MG TAB PO ×2 (08:09→20:40)
[2024-02-03] MEDS: Aspirin E.C. 81 MG TABEC PO (08:09)
[2024-02-03] MEDS: amLODIPine 5 MG TAB PO (08:09)
[2024-02-03] MEDS: Ticagrelor 90 MG TAB PO ×2 (08:09→20:40)
--- NOTE | 2024-02-03 12:33 | SPP_ITS ---
Date of service: 02/03/24 Time of Service: 08:35 Subjective Ed was received asleep in bed with breakfast tray nearby. He awoke easily and was agreeable to WATER TREATMENT PLANT MECHANIC intervention, targeting communication. Objective/Assessment/Plan Objective Treatment Techniques & Outcomes: Target word Word Repetition Using target word in lead-in sentence Juice 7 7 7 7 (doo) - TV +++++ + Cup +++++ - Yes +++++ + No +++++ + Pain +++++ - Muffin +++++ + Ed --- - 7= approximation Cues to scaffold correct repetitions: Direct verbal model Direct visual model Spontaneous Speech: wondering electric (stated after practice with TV) boy bath (attempting to name objects in new artwork in his room, given prompting) Assessment Ed was seen today for communication treatment, targeting single syllable functional communication words. Patient was alert and engaged during session. While Ed continues to fluctuate in sessions largely related to fatigue, slow/gradual progress is noted within word repetition task across last several weeks. Today Ed was able to successfully answer a field of 2 personal question (Did your daughter have a boy or girl?), though remains frustrated with multiple attempts at responses, which were unintelligible. Clinician attempts to identify category/context of utterances was unsuccessful today. Patient may be discharging within 1-2 weeks to [facility] per CM notes. Recommend WATER TREATMENT PLANT MECHANIC upon discharge for communication strategy training with new caregivers, as well as staff training for carryover of dysphagia recommendations. *Ed remains at chronic heightened risk for aspiration, see ongoing precautions below. Aspiration precautions are also posted within patient's room. FURTHER INPATIENT WATER TREATMENT PLANT MECHANIC SERVICES: Patient to be followed on unit for trial treatment stimulability with communication and monitoring dysphagia needs - 2-4x weekly. DISCHARGE RECOMMENDATIONS: Recommend WATER TREATMENT PLANT MECHANIC services at SNF vs Home Health WATER TREATMENT PLANT MECHANIC at least for initial strategy training with staff for communication and dysphagia. DIET RECOMMENDATIONS: Patient is at high risk of aspiration and should receive close supervision assistance during PO intake, with strict precautions as outlined below. SOLIDS: 5-Minced & Moist Solids LIQUIDS: 0-Thin Liquids - via provale cup or ensure very small sip size and fully upright posture MEDICATIONS: Whole one at a time with sips liquid, or whole in applesauce/pudding Level of Assistance/Supervision: Close supervision/partial assist with trained staff/family for all PO intake Positioning and environment: PO intake only when awake/alert? Reduce auditory and/or visual distractions when eating [place] upright for all PO intake. Oral hygiene Before/after PO intake Using friction with toothbrush on all oral structures as tolerated Additional Safety Strategies: Small sips approx 10mL Small bites approx [id number] COMMUNICATION RECOMMENDATIONS: Comprehension: Reduce length of sentences and complexity of words Utilize demonstration and gesture as much as possible Provide visual aids/resources whenever possible Offer simplified written text whenever possible for patient to review Expression: Allow patient additional time to express self and/or multiple attempts to find word(s) For word finding difficulties during conversation: Provide patient with visual aids (smallest possible field of choice) and allow him to make a choice using pointing or repetition Provide assistance with reading text aloud, encouraging spoken repetition (especially of multisyllabic words) Encourage use of relevant gestures to enhance expression Goals: Cooking Casing And Drying Supervisor Goals: Patient will remain free from aspiration-related illness, malnutrition, and dehydration. Patient/caregivers will verbalize comprehension of education provided re: dx, strategies to maximize functioning, and role of ST. Short Term Goals: Patient will participate in ongoing diagnostic treatment addressing communi cation. Patient will tolerate Minced/Moist Diet and Thin liquids without overt s/s aspiration across 2/2 visits. Patient/caregivers will be independent with safe swallow/risk management strategies. Patient has moved rooms since last visit with this clinician - added recommendations to white board for nursing and reminded them of his aspiration precautiosn. Patient will repeat 10 trained functional single 1-syllable words given direct model from clinician with at least 80% accuracy x1-2 sessions. Training list: Food, pain, drink, cup, pain, hand, spoon, Juice, Ed, No, Yes time: [id number], 15 min treatment
--- NOTE | 2024-02-03 15:04 | PT.INTREAT ---
PT Notes Visit Reasons: Cerebrovascular accident Date: 02/03/24 PRECAUTIONS: Fall, standard, activity as tolerated. Hemiplegic / hemiparitic right side. Global aphasia. Contact precaution SUBJECTIVE: Pt awake watching TV, pleasant, agreed to participating with today's session. OBJECTIVE: Supine in bed. Riojas in place. Agreeable to therapy ? PAIN: None reported. VITALS: monitored by nursing staff. Therapeutic Activities ([id number]): Direct one-on-one instruction in dynamic activities to improve functional performance. ? BED MOBILITY/TRANSFERS? Rolling L/R: mod assist to the left. Rolling right not assessed. Supine-sit: mod assist for RLE transfer going to the EOB ? Sit-supine: mod assist to boost right leg over side of bed. ? Sit-stand x3: mod assist at gait belt from low bed, with patient's hand on adán walker and this clinician blocking patient's knee. ? Stand-sit: min A at gait belt, with this clinician also guarding/supporting right arm and blocking right knee ? Standing tolerance training today using hemiwalker with emphasis on right terminal knee extensions. terminal knee extensions while doing weight shifting L/R, front/back Bed mobility going upwards and side to side post session mod A Provided skilled cues and instruction on performance and technique throughout. ASSESSMENT:? pt tolerated activity well, pt very tired after therapeutic activity, happy to have participated, report he would like to participate again tomorrow. PLAN: Continue global strengthening, functional activity tolerance training and neuro reeducation training to patient tolerance per plan of care. Patient would benefit from skilled rehab stay to maximize functional outcomes. TIME: [id number] 25mins ( 2:30-2:55pm)
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
[2024-02-03] MEDS: Atorvastatin 40 MG TAB 80 MG PO (20:39)
[2024-02-03] MEDS: Sennosides/Docusate Sodium TAB 1 TAB PO (20:40)
[2024-02-03] MEDS: Mirtazapine 15 MG TAB 30 MG PO (20:40)
[2024-02-03] MEDS: ARIPiprazole 5 MG TAB PO (20:41)
[2024-02-03] MEDS: Insulin Glargine 300 UNITS/3 ML PEN 12 UNITS SC (21:12)
[2024-02-04] MEDS: Levothyroxine 112 MCG TAB PO (05:27)
[2024-02-04] MEDS: Levothyroxine 25 MCG TAB PO (05:28)
[2024-02-04 06:36] LABS: Abs Immature Grans 0.03 10^3/uL (0.0-0.06); Absolute Basophil Count 0.06 10^3/uL (0.0-0.2); Absolute Lymphocyte Count 1.53 10^3/uL (1.2-3.4); Absolute Monocyte Count 0.64 10^3/uL (0.1-0.8); Absolute Neutrophil Count 5.55 10^3/uL (1.2-6.7); Basophils % 0.7; Eosinophils % 7.1; HCT 28.8 % (40.0-50.0); HGB 9.3 g/dL (13.5-17.5); Immature Grans % 0.4; Lymphocytes % 18.2; MCH 28.4 pg (27.0-33.0); MCHC 32.3 % (32.0-36.0); MCV 88 fL (80-95); MPV 10.1 fL (8.0-11.0); Monocytes % 7.6; Platelet Count 207 10^3/uL (130-400); RBC 3.28 10^6/uL (4.36-5.78); RDW 13.7 % (11.8-14.1); RDW-SD 44.6 fL; WBC 8.41 10^3/uL (4.4-10.8)
[2024-02-04 06:45] LABS: Anion Gap 6.3 mmol/L (3-11); BUN 32 mg/dL (7-18); CO2 28.7 mmol/L (21.0-32.0); CREATININE 0.9 mg/dL (0.70-1.30); Calcium 8.7 mg/dL (8.5-10.1); Chloride 109 mmol/L (98-107); Estimated GFR 91.31 (mL/min/1.73m2); Glucose 183 mg/dL (74-106); Potassium 3.7 mmol/L (3.5-5.1); Sodium 144 mmol/L (136-145)
[2024-02-04 08:40] VITALS: BP 132/65; PULSE 65; RESP 16; O2SAT 97
[2024-02-04] MEDS: Esomeprazole 40 MG CAPCR PO (08:51)
[2024-02-04] MEDS: Magnesium Oxide 400 MG TAB PO ×2 (08:51→20:51)
[2024-02-04] MEDS: Cholecalciferol (Vitamin D3) 1,000 UNIT TAB 1000 UNITS PO (08:51)
[2024-02-04] MEDS: Gabapentin 800 MG TAB PO ×2 (08:51→20:50)
[2024-02-04] MEDS: clonazePAM 0.5 MG TAB PO ×2 (08:51→20:51)
[2024-02-04] MEDS: Aspirin E.C. 81 MG TABEC PO (08:51)
[2024-02-04] MEDS: amLODIPine 5 MG TAB PO (08:51)
[2024-02-04] MEDS: Ticagrelor 90 MG TAB PO ×2 (08:51→20:50)
[2024-02-04] MEDS: Methadone Liquid 10 MG/ML 60 MG PO ×2 (08:52→20:53)
[2024-02-04] MEDS: Carvedilol 12.5 MG TAB PO (08:52)
[2024-02-04] MEDS: Docusate Sodium 100 MG CAP 200 MG PO (08:52)
[2024-02-04] MEDS: Insulin Aspart 300 UNITS/3 ML PEN SC ×3 (08:53→17:30)
[2024-02-04 09:19] VITALS: BP 128/62; PULSE 79; RESP 17; TEMP 35.5; O2SAT 96
--- NOTE | 2024-02-04 09:27 | NUR.NOTE ---
Nursing Note: Patient refused turning and positioning and full skin assessment this morning, with inappropriate language and motioning for staff to leave the room. Patient was compliant with most of his medication this morning. Unable to obtain patient's temperature for vital signs.
--- NOTE | 2024-02-04 14:31 | PT.INNT ---
PT Notes Visit Reasons: Cerebrovascular accident Pt refused therapy this afternoon, pt shaking his head to indicate he doesn't want to participate with today's session. will try again tomorrow to check if pt is much more agreeable.
[2024-02-04] MEDS: Mirtazapine 15 MG TAB 30 MG PO (20:49)
[2024-02-04] MEDS: Atorvastatin 40 MG TAB 80 MG PO (20:51)
[2024-02-04] MEDS: ARIPiprazole 5 MG TAB PO (20:51)
[2024-02-04] MEDS: Sennosides/Docusate Sodium TAB 1 TAB PO (20:51)
[2024-02-04] MEDS: Insulin Glargine 300 UNITS/3 ML PEN 12 UNITS SC (20:54)
[2024-02-05] MEDS: Levothyroxine 25 MCG TAB PO (05:33)
[2024-02-05] MEDS: Levothyroxine 112 MCG TAB PO (05:33)
[2024-02-05 08:21] VITALS: BP 115/66; PULSE 66; RESP 18; TEMP 36.1; O2SAT 94
[2024-02-05] MEDS: clonazePAM 0.5 MG TAB PO ×2 (08:41→20:57)
[2024-02-05] MEDS: Aspirin E.C. 81 MG TABEC PO (08:41)
[2024-02-05] MEDS: Polyethylene Glycol 3350 17 GM PACKET PO (08:41)
[2024-02-05] MEDS: Methadone Liquid 10 MG/ML 60 MG PO ×2 (08:42→20:56)
[2024-02-05] MEDS: Gabapentin 800 MG TAB PO ×2 (08:42→20:57)
[2024-02-05] MEDS: Esomeprazole 40 MG CAPCR PO (08:42)
[2024-02-05] MEDS: Docusate Sodium 100 MG CAP 200 MG PO (08:42)
[2024-02-05] MEDS: Ticagrelor 90 MG TAB PO ×2 (08:43→20:57)
[2024-02-05] MEDS: Carvedilol 12.5 MG TAB PO (08:43)
[2024-02-05] MEDS: amLODIPine 5 MG TAB PO (08:43)
[2024-02-05] MEDS: Cholecalciferol (Vitamin D3) 1,000 UNIT TAB 1000 UNITS PO (08:45)
[2024-02-05] MEDS: Magnesium Oxide 400 MG TAB PO ×2 (08:47→20:57)
[2024-02-05] MEDS: Insulin Aspart 300 UNITS/3 ML PEN SC ×3 (08:50→17:44)
[2024-02-05] MEDS: ARIPiprazole 5 MG TAB PO (20:57)
[2024-02-05] MEDS: Sennosides/Docusate Sodium TAB 1 TAB PO (20:57)
[2024-02-05] MEDS: Atorvastatin 40 MG TAB 80 MG PO (21:58)
[2024-02-05] MEDS: Mirtazapine 15 MG TAB 30 MG PO (21:58)
[2024-02-05] MEDS: Insulin Glargine 300 UNITS/3 ML PEN 12 UNITS SC (21:59)
[2024-02-06] MEDS: Levothyroxine 112 MCG TAB PO (04:53)
[2024-02-06] MEDS: Levothyroxine 25 MCG TAB PO (04:53)
[2024-02-06 09:04] VITALS: BP 132/58; PULSE 65; RESP 16; TEMP 36.2; O2SAT 95
[2024-02-06] MEDS: Docusate Sodium 100 MG CAP 200 MG PO (09:40)
[2024-02-06] MEDS: Cholecalciferol (Vitamin D3) 1,000 UNIT TAB 1000 UNITS PO (09:40)
[2024-02-06] MEDS: Ticagrelor 90 MG TAB PO ×2 (09:40→21:00)
[2024-02-06] MEDS: Magnesium Oxide 400 MG TAB PO ×2 (09:40→21:01)
[2024-02-06] MEDS: Carvedilol 12.5 MG TAB PO (09:40)
[2024-02-06] MEDS: Gabapentin 800 MG TAB PO ×2 (09:40→20:59)
[2024-02-06] MEDS: Aspirin E.C. 81 MG TABEC PO (09:40)
[2024-02-06] MEDS: clonazePAM 0.5 MG TAB PO ×2 (09:40→21:00)
[2024-02-06] MEDS: amLODIPine 5 MG TAB PO (09:40)
[2024-02-06] MEDS: Esomeprazole 40 MG CAPCR PO (09:45)
[2024-02-06] MEDS: Methadone Liquid 10 MG/ML 60 MG PO ×2 (09:48→21:02)
--- NOTE | 2024-02-06 10:14 | PTTR_ITS ---
PT Notes Visit Reasons: Cerebrovascular accident Date: 02/06/24 PRECAUTIONS: Fall, standard, activity as tolerated. Hemiplegic / hemiparitic right side. Global aphasia. Contact precaution SUBJECTIVE: Pt awake in bed, agreed to participating with therapy. OBJECTIVE: Supine in bed. Riojas in place. Agreeable to therapy ? PAIN: None reported. VITALS: monitored by nursing staff. Therapeutic Activities ([id number]): Direct one-on-one instruction in dynamic act ivities to improve functional performance. ? BED MOBILITY/TRANSFERS? Rolling L/R: mod assist to the left. Rolling right not assessed. Supine-sit: mod assist for RLE transfer going to the EOB ? Sit-supine: mod assist to boost right leg over side of bed. ? Sit-stand x3: mod assist at gait belt from low bed, with patient's hand on adán walker and this clinician blocking patient's knee. ? Stand-sit: min A at gait belt, with this clinician also guarding/supporting right arm and blocking right knee ? Standing tolerance training today using hemiwalker with emphasis on right terminal knee extensions. terminal knee extensions while doing weight shifting L/R, front/back Bed mobility going upwards and side to side post session mod A Provided skilled cues and instruction on performance and technique throughout. ASSESSMENT:? Pt complained of right shoulder pain during movement in bed and during sit to stand transition. pt reports faytigue post session, very engaged and was showing good effort to utilize own strength during activity. pt bed mobility upward movement verbal cue for pushing LE to the bed, stayed in bed post session. PLAN: Continue global strengthening, functional activity tolerance training and neuro reeducation training to patient tolerance per plan of care. Patient would benefit from skilled rehab stay to maximize functional outcomes. TIME: [id number] 30mins ( 9:45-10:15am)
--- NOTE | 2024-02-06 14:03 | CMPROGNOTE_ITS ---
Date of service: 02/06/24 Time of Service: 14:04 Care Management Progress Note Progress Note Text Progress Note Text: Care Management Progress Note PATIENT NAME: Darwin Caballero UNIT #: [id number] ADMITTING PROVIDER: Lisa Sam PRIMARY CARE PROVIDER: Galen Murphy DNP S/O: Ed remains in SB-1 status. Efforts to transition Ed to his [facility] home in [place] continue. [facility] has been working with [facility] to try to establish his methadone maintenance at their facility. Clinical data and information releases have been provided by RONDA. A hospital bed and wheelchair have been ordered from [facility] and delivery to his [facility] home is scheduled for Saturday. If enrollment in the [facility] methadone maintenance program can be finalized by Saturday. Ed will likely be discharged at that tyime. A: Ed is a 73 year old man admitted on 10/31/23 with pneumonia . P: Ed will likely transition to an [facility] ([facility] home in [place] when all arrangements have been finalized. CM will continue to follow and support Ed and his discharge planning needs. SDOH(Care Management) Screening Will the Patient Participate in the Screening?: Declined to provide
--- NOTE | 2024-02-06 16:50 | SPP_ITS ---
Date of service: 02/06/24 Time of Service: 16:20 Subjective Patient received sitting upright in bed, alert and agreeable to therapy. Patient was highly engaged with high effort in exercises today. Objective/Assessment/Plan Objective Treatment Techniques & Outcomes: Treatment Techniques & Outcomes: Target word Word Repetition Using target word in lead-in sentence Juice +++++ - TV +++++ + Cup +++++ - Yes +++++ + No +++++ + Pain +++++ - Muffin +++++ + Goodbye +++++ - Spontaneous Speech: Practicing It's nice Right on 3 additional communication attempts made at sentence level, unintelligble Assessment Ed was seen today for communication treatment, targeting single syllable functional communication words. Patient was alert and engaged during session, and expressed to this clinician that he enjoys practicing speech. He has demonstrated less frustration across recent sessions, despite ongoing challenges with perseveration. He continues to benefit from brief sessions targeting functional communication. Patient may be discharging early next week to [facility] per CM notes. Recommend DISABILITY INSURANCE HEARING OFFICER upon discharge for communication strategy training with new caregivers, as well as staff training for carryover of dysphagia recommendations. *Ed remains at chronic heightened risk for aspiration, see ongoing precautions below. Aspiration precautions are also posted within patient's room. FURTHER INPATIENT DISABILITY INSURANCE HEARING OFFICER SERVICES: Patient to be followed on unit for trial treatment stimulability with communication and monitoring dysphagia needs - 2-4x weekly. DISCHARGE RECOMMENDATIONS: Recommend DISABILITY INSURANCE HEARING OFFICER services at SNF vs Home Health DISABILITY INSURANCE HEARING OFFICER at least for initial strategy training with staff for communication and dysphagia. DIET RECOMMENDATIONS: Patient is at high risk of aspiration and should receive close supervision assistance during PO intake, with strict precautions as outlined below. SOLIDS: 5-Minced & Moist Solids LIQUIDS: 0-Thin Liquids - via provale cup or ensure very small sip size and fully upright posture MEDICATIONS: Whole one at a time with sips liquid, or whole in applesauce/pudding Level of Assistance/Supervision: Close supervision/partial assist with trained staff/family for all PO intake Positioning and environment: PO intake only when awake/alert? Reduce auditory and/or visual distractions when eating [place] upright for all PO intake. Oral hygiene Before/after PO intake Using friction with toothbrush on all oral structures as tolerated Additional Safety Strategies: Small sips approx 10mL Small bites approx [id number] COMMUNICATION RECOMMENDATIONS: Comprehension: Reduce length of sentences and complexity of words Utilize demonstration and gesture as much as possible Provide visual aids/resources whenever possible Offer simplified written text whenever possible for patient to review Expression: Allow patient additional time to express self and/or multiple attempts to find word(s) For word finding difficulties during conversation: Provide patient with visual aids (smallest possible field of choice) and allow him to make a choice using pointing or repetition Provide assistance with reading text aloud, encouraging spoken repetition (especially of multisyllabic words) Encourage use of relevant gestures to enhance expression Goals: Water Tester Goals: Patient will remain free from aspiration-related illness, malnutrition, and dehydration. Patient/caregivers will verbalize comprehension of education provided re: dx, strategies to maximize functioning, and role of ST. Short Term Goals: Patient will participate in ongoing diagnostic treatment addressing communication. Patient will tolerate Minced/Moist Diet and Thin liquids without overt s/s aspiration across 2/2 visits. Patient/caregivers will be independent with safe swallow/risk management strategies. Patient has moved rooms since last visit with this clinician - added recommendations to white board for nursing and reminded them of his aspiration precautiosn. Patient will repeat 10 trained functional single 1-syllable words given direct model from clinician with at least 80% accuracy x1-2 sessions. Training list: Food, pain, drink, cup, pain, hand, spoon, Juice, Ed, No, Yes time: [id number], 20 min total time
[2024-02-06] MEDS: Atorvastatin 40 MG TAB 80 MG PO (20:59)
[2024-02-06] MEDS: Lactulose 20 GM/30 ML CUP PO (20:59)
[2024-02-06] MEDS: Mirtazapine 15 MG TAB 30 MG PO (21:00)
[2024-02-06] MEDS: Sennosides/Docusate Sodium TAB 1 TAB PO (21:00)
[2024-02-06] MEDS: Insulin Glargine 300 UNITS/3 ML PEN 12 UNITS SC (21:02)
[2024-02-07] MEDS: Levothyroxine 112 MCG TAB PO (06:21)
[2024-02-07] MEDS: Levothyroxine 25 MCG TAB PO (06:31)
[2024-02-07 08:02] VITALS: BP 144/70; PULSE 57; RESP 18; TEMP 35.4; O2SAT 95
[2024-02-07] MEDS: Polyethylene Glycol 3350 17 GM PACKET PO (09:15)
[2024-02-07] MEDS: Methadone Liquid 10 MG/ML 60 MG PO ×2 (09:15→20:12)
[2024-02-07] MEDS: clonazePAM 0.5 MG TAB PO ×2 (09:17→20:13)
[2024-02-07] MEDS: Cholecalciferol (Vitamin D3) 1,000 UNIT TAB 1000 UNITS PO (09:17)
[2024-02-07] MEDS: Magnesium Oxide 400 MG TAB PO ×2 (09:17→20:13)
[2024-02-07] MEDS: Docusate Sodium 100 MG CAP 200 MG PO (09:17)
[2024-02-07] MEDS: Carvedilol 12.5 MG TAB PO (09:17)
[2024-02-07] MEDS: Gabapentin 800 MG TAB PO ×2 (09:17→20:13)
[2024-02-07] MEDS: amLODIPine 5 MG TAB PO (09:17)
[2024-02-07] MEDS: Aspirin E.C. 81 MG TABEC PO (09:17)
[2024-02-07] MEDS: Ticagrelor 90 MG TAB PO ×2 (09:18→20:12)
[2024-02-07] MEDS: Esomeprazole 40 MG CAPCR PO (09:18)
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
[2024-02-07] MEDS: Cefpodoxime 200 MG TAB PO (11:54)
[2024-02-07] MEDS: Insulin Aspart 300 UNITS/3 ML PEN SC ×2 (11:56→17:18)
[2024-02-07] MEDS: Fosfomycin Tromethamine 3 GM PACKET PO (13:16)
--- NOTE | 2024-02-07 14:47 | NT_ITS ---
PT Notes Visit Reasons: Cerebrovascular accident Pt approached multiple times duringf the course of the day (11:30am, 1:00, 2:00pm) refused all attempts, pt shaking his head in refusal, nurse and TON CYLINDER INSPECTOR present when pt refused this therapist. RONDA Gonzalez informed of pt multiple refusal today.
[2024-02-07] MEDS: Sennosides/Docusate Sodium TAB 1 TAB PO (20:12)
[2024-02-07] MEDS: Atorvastatin 40 MG TAB 80 MG PO (21:52)
[2024-02-07] MEDS: ARIPiprazole 5 MG TAB PO (21:52)
[2024-02-07] MEDS: Mirtazapine 15 MG TAB 30 MG PO (21:53)
[2024-02-07] MEDS: Insulin Glargine 300 UNITS/3 ML PEN 12 UNITS SC (22:13)
[2024-02-08] MEDS: Methadone Liquid 10 MG/ML 60 MG PO ×2 (08:58→20:05)
[2024-02-08] MEDS: Ticagrelor 90 MG TAB PO ×2 (08:59→20:06)
[2024-02-08] MEDS: Levothyroxine 112 MCG TAB PO (08:59)
[2024-02-08] MEDS: Aspirin E.C. 81 MG TABEC PO (08:59)
[2024-02-08] MEDS: Polyethylene Glycol 3350 17 GM PACKET PO (08:59)
[2024-02-08] MEDS: clonazePAM 0.5 MG TAB PO ×2 (08:59→20:05)
[2024-02-08] MEDS: Docusate Sodium 100 MG CAP 200 MG PO (09:00)
[2024-02-08] MEDS: Magnesium Oxide 400 MG TAB PO ×2 (09:00→20:05)
[2024-02-08] MEDS: Carvedilol 12.5 MG TAB PO (09:01)
[2024-02-08] MEDS: Levothyroxine 25 MCG TAB PO (09:01)
[2024-02-08] MEDS: Gabapentin 800 MG TAB PO ×2 (09:01→20:05)
[2024-02-08] MEDS: Cholecalciferol (Vitamin D3) 1,000 UNIT TAB 1000 UNITS PO (09:02)
[2024-02-08] MEDS: Esomeprazole 40 MG CAPCR PO (09:03)
[2024-02-08] MEDS: Insulin Aspart 300 UNITS/3 ML PEN SC ×3 (09:03→18:12)
[2024-02-08 09:05] VITALS: BP 158/72; PULSE 54; RESP 18; TEMP 36.4; O2SAT 97
[2024-02-08] MEDS: amLODIPine 5 MG TAB PO (09:13)
[2024-02-08] MEDS: Sennosides/Docusate Sodium TAB 1 TAB PO (20:06)
[2024-02-08] MEDS: Atorvastatin 40 MG TAB 80 MG PO (21:19)
[2024-02-08] MEDS: Insulin Glargine 300 UNITS/3 ML PEN 12 UNITS SC (21:20)
[2024-02-08] MEDS: Mirtazapine 15 MG TAB 30 MG PO (21:20)
[2024-02-08] MEDS: ARIPiprazole 5 MG TAB PO (21:20)
[2024-02-09 06:20] LABS: Abs Immature Grans 0.02 10^3/uL (0.0-0.06); Absolute Basophil Count 0.05 10^3/uL (0.0-0.2); Absolute Lymphocyte Count 1.37 10^3/uL (1.2-3.4); Absolute Monocyte Count 0.48 10^3/uL (0.1-0.8); Basophils % 0.9; Eosinophils % 9.2; HCT 30.9 % (40.0-50.0); HGB 10.1 g/dL (13.5-17.5); Immature Grans % 0.4; Lymphocytes % 25.3; MCH 29.3 pg (27.0-33.0); MCHC 32.7 % (32.0-36.0); MCV 90 fL (80-95); MPV 9.9 fL (8.0-11.0); Monocytes % 8.9; Neutrophils % 55.3; Platelet Count 243 10^3/uL (130-400); RBC 3.45 10^6/uL (4.36-5.78); RDW 13.6 % (11.8-14.1); RDW-SD 44.2 fL; WBC 5.42 10^3/uL (4.4-10.8)
[2024-02-09 06:59] LABS: Anion Gap 5.5 mmol/L (3-11); BUN 33 mg/dL (7-18); CO2 29.5 mmol/L (21.0-32.0); CREATININE 0.9 mg/dL (0.70-1.30); Calcium 8.5 mg/dL (8.5-10.1); Chloride 109 mmol/L (98-107); Estimated GFR 91.31 (mL/min/1.73m2); Glucose 212 mg/dL (74-106); Sodium 144 mmol/L (136-145)
[2024-02-09 08:48] VITALS: BP 132/47; PULSE 62; RESP 18; TEMP 34.9; O2SAT 96
[2024-02-09] MEDS: Insulin Aspart 300 UNITS/3 ML PEN SC ×3 (08:54→17:08)
[2024-02-09] MEDS: Methadone Liquid 10 MG/ML 60 MG PO ×2 (08:55→20:36)
[2024-02-09] MEDS: Levothyroxine 112 MCG TAB PO (08:56)
[2024-02-09] MEDS: Ticagrelor 90 MG TAB PO ×2 (08:56→20:35)
[2024-02-09] MEDS: Levothyroxine 25 MCG TAB PO (08:57)
[2024-02-09] MEDS: Docusate Sodium 100 MG CAP 200 MG PO (08:57)
[2024-02-09] MEDS: Magnesium Oxide 400 MG TAB PO ×2 (08:57→20:35)
[2024-02-09] MEDS: Cholecalciferol (Vitamin D3) 1,000 UNIT TAB 1000 UNITS PO (08:57)
[2024-02-09] MEDS: Esomeprazole 40 MG CAPCR PO (08:57)
[2024-02-09] MEDS: Aspirin E.C. 81 MG TABEC PO (08:57)
[2024-02-09] MEDS: amLODIPine 5 MG TAB PO (08:57)
[2024-02-09] MEDS: Carvedilol 12.5 MG TAB PO (08:57)
[2024-02-09] MEDS: clonazePAM 0.5 MG TAB PO ×2 (08:57→20:35)
[2024-02-09] MEDS: Gabapentin 800 MG TAB PO ×2 (08:57→20:35)
[2024-02-09] MEDS: Acetaminophen 325 MG TAB 650 MG PO ×2 (11:50→15:58)
[2024-02-09] MEDS: Mirtazapine 15 MG TAB 30 MG PO (20:35)
[2024-02-09] MEDS: Atorvastatin 40 MG TAB 80 MG PO (20:35)
[2024-02-09] MEDS: ARIPiprazole 5 MG TAB PO (20:35)
[2024-02-09] MEDS: Sennosides/Docusate Sodium TAB 1 TAB PO (20:35)
[2024-02-09] MEDS: Insulin Glargine 300 UNITS/3 ML PEN 12 UNITS SC (20:41)
[2024-02-10] MEDS: Levothyroxine 25 MCG TAB PO (06:33)
[2024-02-10] MEDS: Levothyroxine 112 MCG TAB PO (06:33)
[2024-02-10 07:53] VITALS: BP 136/74; PULSE 84; RESP 18; TEMP 36.4; O2SAT 93
[2024-02-10] MEDS: Methadone Liquid 10 MG/ML 60 MG PO ×2 (08:21→21:02)
[2024-02-10] MEDS: Esomeprazole 40 MG CAPCR PO (08:22)
[2024-02-10] MEDS: Aspirin E.C. 81 MG TABEC PO (08:22)
[2024-02-10] MEDS: Carvedilol 12.5 MG TAB PO (08:23)
[2024-02-10] MEDS: Ticagrelor 90 MG TAB PO ×2 (08:23→21:03)
[2024-02-10] MEDS: Gabapentin 800 MG TAB PO ×2 (08:23→21:04)
[2024-02-10] MEDS: Docusate Sodium 100 MG CAP 200 MG PO (08:23)
[2024-02-10] MEDS: amLODIPine 5 MG TAB PO (08:23)
[2024-02-10] MEDS: Magnesium Oxide 400 MG TAB PO ×2 (08:23→21:04)
[2024-02-10] MEDS: clonazePAM 0.5 MG TAB PO ×2 (08:24→21:04)
[2024-02-10] MEDS: Cholecalciferol (Vitamin D3) 1,000 UNIT TAB 1000 UNITS PO (08:24)
[2024-02-10] MEDS: Polyethylene Glycol 3350 17 GM PACKET PO (08:24)
[2024-02-10] MEDS: Insulin Aspart 300 UNITS/3 ML PEN SC ×2 (08:47→12:48)
--- NOTE | 2024-02-10 09:35 | PT.INNT ---
PT Notes Visit Reasons: Cerebrovascular accident Pt approached 3x this morning, 7:30am, 8:30am and 9:30am was refused at all attempts, supervising PT informed of pt refusals.
[2024-02-10] MEDS: Lactulose 20 GM/30 ML CUP PO (14:03)
--- NOTE | 2024-02-10 14:19 | SPP_ITS ---
Date of service: 02/10/24 Time of Service: 14:19 Subjective Patient received sitting upright in bed, watching TV. Agreeable to therapy, initially alert and engaged but frequently appearing confused or distracted. Some mild frustration, but appearing more fatigued than upset. According to his RN, he refused his lactulose earlier this date, and this happens some days, which could contribute to day-to-day fluctuations in LOF. Objective/Assessment/Plan Objective Treatment Techniques & Outcomes: Target word Word Repetition Using target word in lead-in sentence Juice TV - +++ - - Cup Yes No Food + - ++++ Pain +++++ - Muffin Goodbye Hand +++++/+[id number] - Drink - + - - - Spontaneous Speech: Not very good. I don't know. Several communication attempts made at sentence level, unintelligible Assessment Ed was seen today for communication treatment targeting 1-2 syllable functional communication words. Reduced alertness/attention, appearing fatigued and sometimes very confused which impacted his performance this date. Session was terminated after 10 minutes due to declining task persistence and declining performance. He continues to benefit from brief sessions targeting functional communication. Recommend MANAGER MACHINE upon discharge for communication strategy training with new caregivers, as well as staff training for carryover of dysphagia recommendations. *Ed remains at chronic heightened risk for aspiration, see ongoing precautions below. Aspiration precautions are also posted within patient's room. FURTHER INPATIENT MANAGER MACHINE SERVICES: Patient to be followed on unit for trial treatment stimulability with communication and monitoring dysphagia needs - 2-4x weekly. DISCHARGE RECOMMENDATIONS: Recommend MANAGER MACHINE services at SNF vs Home Health MANAGER MACHINE at least for initial strategy training with staff for communication and dysphagia. DIET RECOMMENDATIONS: Patient is at high risk of aspiration and should receive close supervision assistance during PO intake, with strict precautions as outlined below. SOLIDS: 5-Minced & Moist Solids LIQUIDS: 0-Thin Liquids - via provale cup or ensure very small sip size and fully upright posture MEDICATIONS: Whole one at a time with sips liquid, or whole in applesauce/pudding Level of Assistance/Supervision: Close supervision/partial assist with trained staff/family for all PO intake Positioning and environment: PO intake only when awake/alert? Reduce auditory and/or visual distractions when eating [place] upright for all PO intake. Oral hygiene Before/after PO intake Using friction with toothbrush on all oral structures as tolerated Additional Safety Strategies: Small sips approx 10mL Small bites approx [id number] COMMUNICATION RECOMMENDATIONS: Comprehension: Reduce length of sentences and complexity of words Utilize demonstration and gesture as much as possible Provide visual aids/resources whenever possible Offer simplified written text whenever possible for patient to review Expression: Allow patient additional time to express self and/or multiple attempts to find word(s) For word finding difficulties during conversation: Provide patient with visual aids (smallest possible field of choice) and allow him to make a choice using pointing or repetition Provide assistance with reading text aloud, encouraging spoken repetition (especially of multisyllabic words) Encourage use of relevant gestures to enhance expression Goals: Nursing Home Goals: Patient will remain free from aspiration-related illness, malnutrition, and dehydration. Patient/caregivers will verbalize comprehension of education provided re: dx, strategies to maximize functioning, and role of ST. Short Term Goals: Patient will participate in ongoing diagnostic treatment addressing communication. Patient will tolerate Minced/Moist Diet and Thin liquids without overt s/s aspiration across 2/2 visits. Patient/caregivers will be independent with safe swallow/risk management strategies. Patient has moved rooms since last visit with this clinician - added recommendations to white board for nursing and reminded them of his aspiration precautiosn. Patient will repeat 10 trained functional single 1-syllable words given direct model from clinician with at least 80% accuracy x1-2 sessions. Training list: Food, pain, drink, cup, pain, hand, spoon, Juice, Ed, No, Yes time: [id number], 10 min total time
--- NOTE | 2024-02-10 14:19 | NUR.NOTE ---
Pt did not respond well to speech therapy today, seemed to not understand instructions. Nursing Note:
[2024-02-10] MEDS: Mirtazapine 15 MG TAB 30 MG PO (21:03)
[2024-02-10] MEDS: Atorvastatin 40 MG TAB 80 MG PO (21:04)
[2024-02-10] MEDS: ARIPiprazole 5 MG TAB PO (21:04)
[2024-02-10] MEDS: Sennosides/Docusate Sodium TAB 1 TAB PO (21:04)
[2024-02-10] MEDS: Insulin Glargine 300 UNITS/3 ML PEN 12 UNITS SC (21:05)
[2024-02-11] MEDS: Levothyroxine 25 MCG TAB PO (06:25)
[2024-02-11] MEDS: Levothyroxine 112 MCG TAB PO (06:25)
[2024-02-11 08:47] VITALS: BP 138/91; PULSE 72; RESP 15; TEMP 35.2; O2SAT 95
[2024-02-11 08:49] VITALS: O2SAT 95
[2024-02-11] MEDS: Methadone Liquid 10 MG/ML 60 MG PO ×2 (09:10→20:37)
[2024-02-11] MEDS: Ticagrelor 90 MG TAB PO ×2 (09:11→20:36)
[2024-02-11] MEDS: Aspirin E.C. 81 MG TABEC PO (09:11)
[2024-02-11] MEDS: Polyethylene Glycol 3350 17 GM PACKET PO (09:11)
[2024-02-11] MEDS: clonazePAM 0.5 MG TAB PO ×2 (09:11→20:36)
[2024-02-11] MEDS: Carvedilol 12.5 MG TAB PO (09:12)
[2024-02-11] MEDS: amLODIPine 5 MG TAB PO (09:12)
[2024-02-11] MEDS: Docusate Sodium 100 MG CAP 200 MG PO (09:12)
[2024-02-11] MEDS: Magnesium Oxide 400 MG TAB PO ×2 (09:13→20:36)
[2024-02-11] MEDS: Gabapentin 800 MG TAB PO ×2 (09:13→20:36)
[2024-02-11] MEDS: Esomeprazole 40 MG CAPCR PO (09:13)
[2024-02-11] MEDS: Cholecalciferol (Vitamin D3) 1,000 UNIT TAB 1000 UNITS PO (09:22)
[2024-02-11] MEDS: Insulin Aspart 300 UNITS/3 ML PEN SC ×2 (12:35→18:13)
--- NOTE | 2024-02-11 13:38 | STREC_ITS ---
Date of service: 02/11/24 Time of Service: 10:00 Speech Therapy Recommendations Report ST Recommendations: Patient received by PRIMARY CARE PHYSICIAN asleep in bed. He woke easily and was agreeable to therapy session, however despite efforts Ed demonstrated difficulty staying awake, with eyes closing. Session discontinued after approximately 5 minutes due to somnolence. PRIMARY CARE PHYSICIAN to continue to follow for communication.
--- NOTE | 2024-02-11 13:38 | PDOC.STREC ---
Date of service: 02/11/24 Time of Service: 10:00 Speech Therapy Recommendations Report ST Recommendations: Patient received by MEDICAL DEVICE SALES asleep in bed. He woke easily and was agreeable to therapy session, however despite efforts Ed demonstrated difficulty staying awake, with eyes closing. Session discontinued after approximately 5 minutes due to somnolence. MEDICAL DEVICE SALES to continue to follow for communication.
[2024-02-11] MEDS: Atorvastatin 40 MG TAB 80 MG PO (20:36)
[2024-02-11] MEDS: Sennosides/Docusate Sodium TAB 1 TAB PO (20:37)
[2024-02-11] MEDS: ARIPiprazole 5 MG TAB PO (20:37)
[2024-02-11] MEDS: Mirtazapine 15 MG TAB 30 MG PO (20:37)
[2024-02-11] MEDS: Insulin Glargine 300 UNITS/3 ML PEN 12 UNITS SC (20:39)
[2024-02-11] MEDS: Lactulose 20 GM/30 ML CUP PO (20:44)
[2024-02-12] MEDS: Levothyroxine 112 MCG TAB PO (06:05)
[2024-02-12] MEDS: Levothyroxine 25 MCG TAB PO (06:06)
[2024-02-12] MEDS: Carvedilol 12.5 MG TAB PO (08:12)
[2024-02-12] MEDS: Gabapentin 800 MG TAB PO (08:12)
[2024-02-12] MEDS: Magnesium Oxide 400 MG TAB PO ×2 (08:12→20:20)
[2024-02-12] MEDS: Esomeprazole 40 MG CAPCR PO (08:13)
[2024-02-12] MEDS: clonazePAM 0.5 MG TAB PO ×2 (08:13→20:19)
[2024-02-12] MEDS: amLODIPine 5 MG TAB PO (08:13)
[2024-02-12] MEDS: Ticagrelor 90 MG TAB PO ×2 (08:13→20:18)
[2024-02-12] MEDS: Aspirin E.C. 81 MG TABEC PO (08:13)
[2024-02-12] MEDS: Cholecalciferol (Vitamin D3) 1,000 UNIT TAB 1000 UNITS PO (08:14)
[2024-02-12] MEDS: Methadone Liquid 10 MG/ML 60 MG PO ×2 (08:14→20:20)
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
[2024-02-12] MEDS: Insulin Aspart 300 UNITS/3 ML PEN SC ×3 (08:44→18:06)
--- NOTE | 2024-02-12 09:12 | PDOC.CMACT ---
Date of service: 02/12/24 Time of Service: 09:12 Care Management Activity Note Activity Note Text Activity Note Text: S/O: Ed remains in SB-1 status. Efforts continue to transition Ed to his AFC home in [place]. The current barrier is with his methadone treatment program. He was discharged from [facility] but to date no other program will accept him for treatment. CM reached out to his former clinic and Dr. Thomas also contacted the physician in charge of the methadone clinic at [facility]. It is hoped that a solution will be found that will allow Ed to be discharged with a continuation of his current [facility] treatment. A team meeting has been scheduled for Saturday02/14/24 at 1 pm to discuss options. Included will be Yola Mota from [facility], Roxann Ortega from [facility], Olga Campbell and Marquita Renee from [facility] and Lisa from [facility] Care Management. CM will also invite Trudy Torres, Ed's home provider and Dr. Thomas from Palliative Care. A: Ed is a 73 year old man admitted on 10/31/23 with pneumonia . P: Ed will likely transition to an A[facility] ([facility]ult Family [facility]) home in [place] when all arrangements have been finalized. CM will continue to follow and support Ed and his discharge planning needs.
--- NOTE | 2024-02-12 13:01 | PT.INTREAT ---
Date of service: 02/12/24 Time of Service: 09:25 PT Notes Visit Reasons: Cerebrovascular accident Inpatient Physical Therapy Treatment Note [facility] Date: 02/12/2024 PRECAUTIONS: Fall, Standard, Activity as tolerated, Hemiplegic / hemiparitic right side. Global aphasia. Contact precaution SUBJECTIVE: Indicated he was willing to perform bed exercises and mobility training with hemicane today. OBJECTIVE: ? PAIN: No reports of pain offered. Therapeutic Activities (60549f0): Direct one-on-one instruction in dynamic activities to improve functional performance. ?? BED MOBILITY/TRANSFERS? Rolling L/R: mod assist to the left. Rolling right not assessed. Supine-sit: mod assist for R LE transfer while going to the EOB ? Sit-supine: mod assist to bring right leg up onto bed. ? Sit-stand x2: mod assist at gait belt from low bed, with patient's left hand on adán walker and this clinician blocking patient's right knee. Able to stand while having sheets of bed changed.?Standing approximately 1-3 minutes each time. ? ? ? Stand-sit: min A at gait belt, with this clinician also guarding/supporting patient's right arm and blocking right knee ? Standing tolerance training today using hemiwalker on left and emphasis on right terminal knee extension. Provided skilled cues and instruction on performance and technique throughout. ? Therapeutic Exercises (53658a7): Direct one-on-one instruction in therapeutic exercises to develop strength, endurance, range of motion and flexibility. ? Exercises: Performed supine left AP, SLR, SAQ, heel slides, hip ab/add x 20. PROM of right ankle, knee and hip t/o all planes. ??? Provided skilled instruction in proper exercise performance, with verbal and tactile cueing given for proper positioning and muscle isolation. ASSESSMENT:? Tolerated session well with good effort displayed. Continues to be limited with standing endurance and mod assist continues to be needed with support of right UE/LE. PLAN: Continue with strengthening and mobility training for improved ADL function. TREATMENT CODE/TIME: [id number] and [id number], 9:25 to 9:55 (30 minutes)
--- NOTE | 2024-02-12 16:52 | W.SPSTP ---
Date of service: 02/12/24 Time of Service: 16:52 Subjective Patient contacted at bedside this afternoon for speech therapy. He is agreeable to participate, appearing more alert than session earlier this week, even smiling/joking throughout. Objective/Assessment/Plan Objective Treatment Techniques & Outcomes: Treatment Techniques & Outcomes: Target word Word Repetition Using target word in lead-in sentence Remote 7 7 7 7 7 TV + + + + + + + + + + (TV ON) Robert + - - - - Food + + + + + Pain + + + + + Cup + + - - + Glasses + + + - + Window + + + + + Arm - - - - - Tissue - - - - - - Spontaneous Speech: Not very good. I don't know. Several communication attempts made at sentence level, unintelligible Assessment Ed was seen today for communication treatment targeting 1-2 syllable functional communication words. Appearing with improved alertness/attention and performance reflected this. Introduced additional 2-syllable words this date. He continues to benefit from brief sessions targeting functional communication. Recommend BALANCE CLERK upon discharge for communication strategy training with new caregivers, as well as staff training for carryover of dysphagia recommendations. *Ed remains at chronic heightened risk for aspiration, see ongoing precautions below. Aspiration precautions are also posted within patient's room. FURTHER INPATIENT BALANCE CLERK SERVICES: Patient to be followed on unit for trial treatment stimulability with communication and monitoring dysphagia needs - 2-4x weekly. DISCHARGE RECOMMENDATIONS: Recommend BALANCE CLERK services at SNF vs Home Health BALANCE CLERK at least for initial strategy training with staff for communication and dysphagia. DIET RECOMMENDATIONS: Patient is at high risk of aspiration and should receive close supervision assistance during PO intake, with strict precautions as outlined below. SOLIDS: 5-Minced & Moist Solids LIQUIDS: 0-Thin Liquids - via provale cup or ensure very small sip size and fully upright posture MEDICATIONS: Whole one at a time with sips liquid, or whole in applesauce/pudding Level of Assistance/Supervision: Close supervision/partial assist with trained staff/family for all PO intake Positioning and environment: PO intake only when awake/alert? Reduce auditory and/or visual distractions when eating [place] upright for all PO intake. Oral hygiene Before/after PO intake Using friction with toothbrush on all oral structures as tolerated Additional Safety Strategies: Small sips approx 10mL Small bites approx [id number] COMMUNICATION RECOMMENDATIONS: Comprehension: Reduce length of sentences and complexity of words Utilize demonstration and gesture as much as possible Provide visual aids/resources whenever possible Offer simplified written text whenever possible for patient to review Expression: Allow patient additional time to express self and/or multiple attempts to find word(s) For word finding difficulties during conversation: Provide patient with visual aids (smallest possible field of choice) and allow him to make a choice using pointing or repetition Provide assistance with reading text aloud, encouraging spoken repetition (especially of multisyllabic words) Encourage use of relevant gestures to enhance expression Goals: Custodial Goals: Patient will remain free from aspiration-related illness, malnutrition, and dehydration. Patient/caregivers will verbalize comprehension of education provided re: dx, strategies to maximize functioning, and role of ST. Short Term Goals: Patient will participate in ongoing diagnostic treatment addressing communication. Patient will tolerate Minced/Moist Diet and Thin liquids without overt s/s aspiration across 2/2 visits. Patient/caregivers will be independent with safe swallow/risk management strategies. Patient has moved rooms since last visit with this clinician - added recommendations to white board for nursing and reminded them of his aspiration precautiosn. Patient will repeat 10 trained functional single 1-syllable words given direct model from clinician with at least 80% accuracy x1-2 sessions. time: [id number], 20 min total time
[2024-02-12 18:07] VITALS: BP 149/74; PULSE 80; RESP 18; TEMP 37; O2SAT 95
[2024-02-12] MEDS: Sennosides/Docusate Sodium TAB 1 TAB PO (20:19)
[2024-02-12] MEDS: ARIPiprazole 5 MG TAB PO (21:29)
[2024-02-12] MEDS: Atorvastatin 40 MG TAB 80 MG PO (21:30)
[2024-02-12] MEDS: Mirtazapine 15 MG TAB 30 MG PO (21:30)
[2024-02-12] MEDS: Insulin Glargine 300 UNITS/3 ML PEN 12 UNITS SC (21:34)
[2024-02-13] MEDS: Levothyroxine 25 MCG TAB PO (06:04)
[2024-02-13] MEDS: Levothyroxine 112 MCG TAB PO (06:04)
[2024-02-13] MEDS: Ticagrelor 90 MG TAB PO ×2 (07:46→21:13)
[2024-02-13] MEDS: Aspirin E.C. 81 MG TABEC PO (07:46)
[2024-02-13] MEDS: Gabapentin 800 MG TAB PO ×2 (07:47→21:14)
[2024-02-13] MEDS: Cholecalciferol (Vitamin D3) 1,000 UNIT TAB 1000 UNITS PO (07:47)
[2024-02-13] MEDS: Esomeprazole 40 MG CAPCR PO (07:47)
[2024-02-13] MEDS: amLODIPine 5 MG TAB PO (07:48)
[2024-02-13] MEDS: clonazePAM 0.5 MG TAB PO ×2 (07:48→21:13)
[2024-02-13] MEDS: Carvedilol 12.5 MG TAB PO (07:48)
[2024-02-13] MEDS: Magnesium Oxide 400 MG TAB PO ×2 (07:49→21:12)
[2024-02-13] MEDS: Methadone Liquid 10 MG/ML 60 MG PO ×2 (08:54→21:17)
[2024-02-13] MEDS: Insulin Aspart 300 UNITS/3 ML PEN SC ×3 (08:55→17:29)
--- NOTE | 2024-02-13 10:45 | PT.INNT ---
PT Notes Visit Reasons: Cerebrovascular accident Checked on pt with nursing and it was advised to wait an hour before we try PT due to pt just receiving his pain medication not too long ago and it makes him very tired.
[2024-02-13 11:22] VITALS: BP 120/64; PULSE 80; RESP 12; TEMP 35.1; O2SAT 94
[2024-02-13 11:53] VITALS: BP 120/64; PULSE 80; RESP 12; TEMP 35.1; O2SAT 94
--- NOTE | 2024-02-13 12:53 | STREC_ITS ---
Date of service: 02/13/24 Time of Service: 11:00 Speech Therapy Recommend[address] Report ST Recommendations: VASCULAR TECHNICIAN treatment attempted, deferred secondary to patient somnolence.
--- NOTE | 2024-02-13 12:53 | PDOC.STREC ---
Date of service: 02/13/24 Time of Service: 11:00 Speech Therapy Recommendations Report ST Recommendations: SQE treatment attempted, deferred secondary to patient somnolence.
--- NOTE | 2024-02-13 15:05 | INPN_ITS ---
PT Notes Visit Reasons: Cerebrovascular accident Physical Therapy Swing Bed Level I Progress Note Date: 02/13/2024 Dates of Service: 01/29/2024 - 02/13/2024 Precautions: Fall. Activity as tolerated. Aphasic (global). Motor apraxic. Subjective: Unable to participate in therpay with GAS STOVE SERVICER HELPER Morena this morning due to somnolence. Refused GAS STOVE SERVICER HELPER Lawson. This PT attempted a session to complete progress note. Patient initially resistant but agreed to have his vital signs taken and his R upper and lower extremity moved for passive ranging. Patient got restless and impatient, declined further participation. Objective: General Observation: Resting in bed. Riojas catheter in place. Somnolent. Had a mild coughing bout. Mental Status: Motor apraxia and aphasia limiting ability to comprehend instructions execute movement, and express self Pain: Groaned when R upper extremity was moved through a gentle range Vital Signs: VEV334/64 mmHg, HR 72 bpm, O2 sat 96% on RA ROM: Right Upper Extremity: R UE hemiplegia. Tolerates passive shoulder flexion to about 30 degrees before onset of pain. Full passive elbow extension, flexion to 80 degrees before onset of pain. Left Upper Extremity: WFL Right Lower Extremity: Hip and knee motion resistant when 50%o f PROM was reached due to discomfort. Left Lower Extremity: Hip flexion WFL. Hip abduction WFL. Knee flexion WFL. Ankle dorsiflexion WFL. Ankle plantarflexion WFL. Strength: Right Upper Extremity: 0/5 Left Upper Extremity: Shoulder flexion 4/5. Triceps 4/5. Biceps 4/5. Obstetric Assistant strong. Right Lower Extremity: 0/5 Left Lower Extremity: Hip flexors 3/5. Hip abductors 3-/5. Knee flexors 4/5. Knee extensors 4/5. Ankle dorsiflexors 4-/5. Ankle plantarflexors 4-/5. Bed Mobility/Transfers: supine-sit: moderate assist with maximal visual, verbal, and tactile cueing for movement sequence/motor planning sit-supine: moderate assist to R LE only with maximal visual, verbal, and tactile cueing for movement sequence/motor planning sit-stand: moderate assist of 2 with support provided to R UE and R locking of R knee Gait: N/A. Patient non-ambulatory. Balance: Static Sitting: Fair Dynamic Sitting: Poor Static Standing: Poor Dynamic Standing: Unable Special Tests: Mobility Limitations Standardized Measure (unchanged) [facility] AM-PAC 6 clicks Basic Mobility Inpatient Short Form: Raw Score: 12 CMS Score: 69% deficit Informed Consent/Education: Unwilling to respond to question of continuing with PT at this time, somnolent. ASSESSMENT: Level of participation mostly limited, patient only worked with PT in 5 out of 10 sessions for this period (from 01/28-02/13/2024). Patient functionally plateauing and will continue to require assist of 1 for all transfers. Motor apraxia, expressive/receptive aphasia, caregiver anxiety limit self efficiency and self-reliance which continue to limit consistent progress with functional mobility performance. Signs of depression continue to limit overall prognosis. Goals: Goals X1 week 1. Supine-Sit SBA NOT MET, DOWNGRADE TO CONTACT GUARD ASSIST 2. Sit-Supine SBA NOT MET, DOWNGRADE TO CONTACT GUARD ASSIST 3. Sit-Stand SBA NOT MET, DOWNGRADE TO CONTACT GUARD ASSIST 4. Stand-Sit SBA NOT MET, DOWNGRADE TO CONTACT GUARD ASSIST 5. Bed-Chair moderate assist with stand pivot technique using hemiwalker on L NOT MET, CONTINUE 6. Chair-Bed moderate assist with stand pivot technique using hemiwalker on L NOT MET, CONTINUE 7. Moderate assist with hemiwalker on L with gait on level surface for at least 15 feet without report of pain nor dyspnea NOT MET, DOWNGRADE TO 5 STEPS 8. Fair static and dynamic standing balance/tolerance NOT MET, CONTINUE Plan of Care/Treatment Plan: 3-5x/week for 2 weeks. Plan of care has been reviewed with the GAS STOVE SERVICER HELPER providing the service under Physical Therapy direction. Continue with Physical Therapy intervention for pain management as needed, strengthening, bed mobility, transfers, gait, stairs, balance training, and use of assistive device. -Recommended Swing Bed Level I treatment plan: PT intervention 1-2x/day, 3-5 days per week. 1. NEURO RE-ED: Dynamic sitting activities at edge of bed to include reach forward and rotate trunk to R/L with AW on the R UE Static standing tolerance to increase to 5 minutes while holding onto hemiwalker working on increasing R knee ext 2. THERA EX: Supine /seated marches and LAQ with 3 lb AW L UE strengthening using 2 lb DB AP x10 3. Therapeutic Activities Instruction in techniques for bed mobility and transfers Transfer to and from bed to be up for meals using hemiwalker focusing on posture, R knee extension, and pivoting using HEMIWALKER DISCHARGE RECOMMENDATIONS: [] Home with no services [] [] Home with services [specify] [] Home with outpatient PT [] [] SNF for continued rehabilitation [] Jail Care [] [] SNF versus LTC based on ability to participate and progress [] [X] SNF vs AFC home based on availability of caregiver support at home. Will require seating assessment for procurement of hemiplegic wheelchair to maximize mobility performance at home. TREATMENT TIME/DATE: 09707 x 15 minutes for 1 units (15:05-15:20).
--- NOTE | 2024-02-13 16:30 | PT.INNT ---
PT Notes Visit Reasons: Cerebrovascular accident Pt approached 4x during the course of the afternoon but was refused by pt at all attempts, supervising PT informed of pt refusal and present in one of the times pt was refusing therapy.
[2024-02-13] MEDS: Normal Saline 1,000 ML 100 ML IV (17:00)
[2024-02-13] MEDS: Atorvastatin 40 MG TAB 80 MG PO (21:12)
[2024-02-13] MEDS: Mirtazapine 15 MG TAB 30 MG PO (21:13)
[2024-02-13] MEDS: Sennosides/Docusate Sodium TAB 1 TAB PO (21:13)
[2024-02-13] MEDS: Insulin Glargine 300 UNITS/3 ML PEN 12 UNITS SC (21:14)
[2024-02-13] MEDS: ARIPiprazole 5 MG TAB PO (21:14)
[2024-02-14 06:24] LABS: Abs Immature Grans 0.01 10^3/uL (0.0-0.06); Absolute Basophil Count 0.07 10^3/uL (0.0-0.2); Absolute Eosinophil Count 0.48 10^3/uL (0.0-0.7); Absolute Lymphocyte Count 1.78 10^3/uL (1.2-3.4); Absolute Monocyte Count 0.48 10^3/uL (0.1-0.8); Absolute Neutrophil Count 3.15 10^3/uL (1.2-6.7); Basophils % 1.2; HCT 30.7 % (40.0-50.0); HGB 9.9 g/dL (13.5-17.5); Immature Grans % 0.2; Lymphocytes % 29.8; MCHC 32.2 % (32.0-36.0); MCV 90 fL (80-95); MPV 9.6 fL (8.0-11.0); Neutrophils % 52.8; Platelet Count 267 10^3/uL (130-400); RBC 3.41 10^6/uL (4.36-5.78); RDW-SD 46.1 fL; WBC 5.97 10^3/uL (4.4-10.8)
[2024-02-14] MEDS: Levothyroxine 112 MCG TAB PO (06:30)
[2024-02-14] MEDS: Levothyroxine 25 MCG TAB PO (06:30)
[2024-02-14] MEDS: Esomeprazole 40 MG CAPCR PO (06:30)
[2024-02-14 06:32] LABS: Anion Gap 5.6 mmol/L (3-11); BUN 33 mg/dL (7-18); CO2 29.4 mmol/L (21.0-32.0); Calcium 8.7 mg/dL (8.5-10.1); Chloride 112 mmol/L (98-107); Estimated GFR 80.47 (mL/min/1.73m2); Glucose 131 mg/dL (74-106); Potassium 3.9 mmol/L (3.5-5.1); Sodium 147 mmol/L (136-145)
[2024-02-14] MEDS: Methadone Liquid 10 MG/ML 60 MG PO ×2 (10:24→20:57)
[2024-02-14] MEDS: Normal Saline Flush 10 ML SYR IVP (10:24)
[2024-02-14] MEDS: Polyethylene Glycol 3350 17 GM PACKET PO (10:24)
[2024-02-14] MEDS: Lactulose 20 GM/30 ML CUP PO (10:24)
[2024-02-14] MEDS: amLODIPine 5 MG TAB PO (10:25)
[2024-02-14] MEDS: Carvedilol 12.5 MG TAB PO (10:25)
[2024-02-14] MEDS: Ticagrelor 90 MG TAB PO ×2 (10:25→21:05)
[2024-02-14] MEDS: Gabapentin 800 MG TAB PO ×2 (10:25→21:06)
[2024-02-14] MEDS: Docusate Sodium 100 MG CAP 200 MG PO (10:25)
[2024-02-14] MEDS: clonazePAM 0.5 MG TAB PO ×2 (10:25→21:02)
[2024-02-14] MEDS: Magnesium Oxide 400 MG TAB PO ×2 (10:25→21:05)
[2024-02-14] MEDS: Aspirin E.C. 81 MG TABEC PO (10:26)
[2024-02-14] MEDS: Cholecalciferol (Vitamin D3) 1,000 UNIT TAB 1000 UNITS PO (10:26)
[2024-02-14] MEDS: Insulin Aspart 300 UNITS/3 ML PEN SC ×3 (10:58→17:45)
[2024-02-14] MEDS: DEXTROSE 5%-0.45% SALINE 1,000 ML 125 ML IV ×2 (11:14→20:56)
--- NOTE | 2024-02-14 13:44 | PT.INNT ---
PT Notes Visit Reasons: Cerebrovascular accident This therapist approached pt while pt was having his bed bath and noticed non-blanchable area on his right heel as well as his right scapular area, this therapist offered to engage pt with bed level exercise which pt refused, lunch counter manager and nursing informed of pt refusal, as well as pt recent skin issues and pressure sore areas.
[2024-02-14 15:13] VITALS: BP 117/55; PULSE 63; RESP 15; TEMP 35.2; O2SAT 96
[2024-02-14] MEDS: Insulin Glargine 300 UNITS/3 ML PEN 12 UNITS SC (21:01)
[2024-02-14] MEDS: ARIPiprazole 5 MG TAB PO (21:05)
[2024-02-14] MEDS: Mirtazapine 15 MG TAB 30 MG PO (21:06)
[2024-02-14] MEDS: Atorvastatin 40 MG TAB 80 MG PO (21:06)
[2024-02-14] MEDS: Sennosides/Docusate Sodium TAB 1 TAB PO (21:17)
[2024-02-15] MEDS: Levothyroxine 112 MCG TAB PO (05:59)
[2024-02-15] MEDS: Levothyroxine 25 MCG TAB PO (05:59)
[2024-02-15] MEDS: Methadone Liquid 10 MG/ML 60 MG PO ×2 (08:55→19:57)
[2024-02-15] MEDS: Polyethylene Glycol 3350 17 GM PACKET PO (08:57)
[2024-02-15] MEDS: Carvedilol 12.5 MG TAB PO (08:57)
[2024-02-15] MEDS: amLODIPine 5 MG TAB PO (08:58)
[2024-02-15] MEDS: Gabapentin 800 MG TAB PO ×2 (08:58→19:56)
[2024-02-15] MEDS: Ticagrelor 90 MG TAB PO ×2 (08:59→19:56)
[2024-02-15] MEDS: Cholecalciferol (Vitamin D3) 1,000 UNIT TAB 1000 UNITS PO (08:59)
[2024-02-15] MEDS: clonazePAM 0.5 MG TAB PO ×2 (08:59→19:56)
[2024-02-15] MEDS: Magnesium Oxide 400 MG TAB PO ×2 (08:59→19:56)
[2024-02-15] MEDS: Aspirin E.C. 81 MG TABEC PO (08:59)
[2024-02-15] MEDS: Esomeprazole 40 MG CAPCR PO (08:59)
[2024-02-15] MEDS: Docusate Sodium 100 MG CAP 200 MG PO (08:59)
[2024-02-15] MEDS: Insulin Aspart 300 UNITS/3 ML PEN SC ×3 (09:09→17:43)
[2024-02-15 17:02] VITALS: BP 133/56; PULSE 68; RESP 15; TEMP 36.2; O2SAT 97
[2024-02-15] MEDS: Mirtazapine 15 MG TAB 30 MG PO (19:56)
[2024-02-15] MEDS: ARIPiprazole 5 MG TAB PO (19:56)
[2024-02-15] MEDS: Sennosides/Docusate Sodium TAB 1 TAB PO (19:56)
[2024-02-15] MEDS: Atorvastatin 40 MG TAB 80 MG PO (19:56)
[2024-02-15] MEDS: Insulin Glargine 300 UNITS/3 ML PEN 12 UNITS SC (20:09)
[2024-02-16] MEDS: Levothyroxine 112 MCG TAB PO (05:36)
[2024-02-16] MEDS: Levothyroxine 25 MCG TAB PO (05:36)
[2024-02-16] MEDS: Methadone Liquid 10 MG/ML 60 MG PO ×2 (08:33→20:09)
[2024-02-16] MEDS: Docusate Sodium 100 MG CAP 200 MG PO (08:34)
[2024-02-16] MEDS: Ticagrelor 90 MG TAB PO ×2 (08:34→20:10)
[2024-02-16] MEDS: Polyethylene Glycol 3350 17 GM PACKET PO (08:34)
[2024-02-16] MEDS: Aspirin E.C. 81 MG TABEC PO (08:35)
[2024-02-16] MEDS: Gabapentin 800 MG TAB PO ×2 (08:35→20:10)
[2024-02-16] MEDS: Esomeprazole 40 MG CAPCR PO (08:35)
[2024-02-16] MEDS: Magnesium Oxide 400 MG TAB PO ×2 (08:35→20:10)
[2024-02-16] MEDS: amLODIPine 5 MG TAB PO (08:36)
[2024-02-16] MEDS: Cholecalciferol (Vitamin D3) 1,000 UNIT TAB 1000 UNITS PO (08:36)
[2024-02-16] MEDS: clonazePAM 0.5 MG TAB PO ×2 (08:36→20:10)
[2024-02-16] MEDS: Carvedilol 12.5 MG TAB PO (08:36)
[2024-02-16] MEDS: Insulin Aspart 300 UNITS/3 ML PEN SC ×3 (09:32→17:25)
[2024-02-16] MEDS: Normal Saline Flush 10 ML SYR IVP (09:34)
[2024-02-16 14:26] VITALS: BP 109/59; PULSE 64; RESP 16; TEMP 36.7; O2SAT 96
[2024-02-16] MEDS: Sennosides/Docusate Sodium TAB 1 TAB PO (20:10)
[2024-02-16] MEDS: Mirtazapine 15 MG TAB 30 MG PO (21:16)
[2024-02-16] MEDS: Insulin Glargine 300 UNITS/3 ML PEN 12 UNITS SC (21:16)
[2024-02-16] MEDS: ARIPiprazole 5 MG TAB PO (21:16)
[2024-02-16] MEDS: Atorvastatin 40 MG TAB 80 MG PO (21:16)
[2024-02-17] MEDS: Levothyroxine 112 MCG TAB PO (05:56)
[2024-02-17] MEDS: Levothyroxine 25 MCG TAB PO (05:56)
[2024-02-17] MEDS: Carvedilol 12.5 MG TAB PO (08:58)
[2024-02-17] MEDS: Docusate Sodium 100 MG CAP 200 MG PO (08:58)
[2024-02-17] MEDS: Esomeprazole 40 MG CAPCR PO (08:58)
[2024-02-17] MEDS: Polyethylene Glycol 3350 17 GM PACKET PO (08:58)
[2024-02-17] MEDS: Aspirin E.C. 81 MG TABEC PO (08:58)
[2024-02-17] MEDS: Ticagrelor 90 MG TAB PO ×2 (08:58→21:39)
[2024-02-17] MEDS: clonazePAM 0.5 MG TAB PO ×2 (08:58→21:39)
[2024-02-17] MEDS: amLODIPine 5 MG TAB PO (08:58)
[2024-02-17] MEDS: Magnesium Oxide 400 MG TAB PO ×2 (08:59→21:39)
[2024-02-17] MEDS: Methadone Liquid 10 MG/ML 60 MG PO ×2 (08:59→21:39)
[2024-02-17] MEDS: Cholecalciferol (Vitamin D3) 1,000 UNIT TAB 1000 UNITS PO (09:00)
[2024-02-17] MEDS: Gabapentin 800 MG TAB PO ×2 (09:06→21:39)
[2024-02-17] MEDS: Insulin Aspart 300 UNITS/3 ML PEN SC ×3 (09:14→17:37)
[2024-02-17 11:58] VITALS: BP 117/48; PULSE 61; RESP 18; TEMP 35.2; O2SAT 99
--- NOTE | 2024-02-17 13:37 | PTTR_ITS ---
PT Notes Visit Reasons: Cerebrovascular accident Inpatient Physical Therapy Treatment Note [facility] Date: 02/17/24 SUBJECTIVE: Ed refused to work with me this am x2. Agreeable to work with me this pm. Wanting to get back into bed. OBJECTIVE: []? VITALS: ?monitored by nursing Provided skilled cues and instruction on performance and technique mauricio buenrostro. ? Therapeutic Exercises (53593b1): Direct one-on-one instruction in therapeutic exercises to develop strength, endurance, range of motion and flexibility. ? Exercises. Seated in recliner. AP x15. LAQ and SLR x approx 10. Refused to do anything else. He was transferred into bed using Steady lift and 2 assist. ?Required assist with right LE. He was placed in modified left sidelying with pillow behind back and btwn legs.? ASSESSMENT:? agreeable to get back into bed. Not motivated to participate in therapeutic ex. Does not appear to be motivated to get better/stronger. He would begin an exercise and then just kick his leg around. PLAN: will continue to encourage participation in PT to work on increasing his strength and functional mobility. TREATMENT CODE/TIME: 15 min [id number]
[2024-02-17] MEDS: Mirtazapine 15 MG TAB 30 MG PO (21:38)
[2024-02-17] MEDS: Sennosides/Docusate Sodium TAB 1 TAB PO (21:38)
[2024-02-17] MEDS: Atorvastatin 40 MG TAB 80 MG PO (21:39)
[2024-02-17] MEDS: ARIPiprazole 5 MG TAB PO (21:39)
[2024-02-17] MEDS: Insulin Glargine 300 UNITS/3 ML PEN 12 UNITS SC (21:40)
--- NOTE | 2024-02-18 | DI.CT_ITS ---
Exam(s) CT ABDOMEN PELVIS WO EXAM: CT ABDOMEN PELVIS WO CLINICAL HISTORY: r/o bladder stones. TECHNIQUE: Imaging Protocol: Axial computed tomography images with coronal and sagittal reformatted images were created and reviewed. Oral: no COMPARISON: CT ABD PELVIS WITH CONTRAST from 12/23/[address] CHEST PE CTA from 03/09/[address] CHEST/ABD/PEL W from 05/15/2023 CR XR CHEST 2V PA LATERAL from 01/03/2024 FINDINGS: Exam limited by motion. Patient was unable to follow breathing instructions. There is streak artifa ct on the upper images related to patient arm positioning. Lung Bases: Bibasilar infiltrates, right greater than left. Liver: Normal density. No suspicious mass. Gallbladder and biliary tract: No radiodense calculus or biliary dilation. Pancreas: Normal density, no abnormal calcifications or inflammatory process. Spleen: Normal. Kidneys: Normal size, contour and axis. No radiodense stones or obstructive uropathy. No suspicious m asses seen. Adrenal glands: Low-density circumscribed right adrenal mass again noted. Lymph nodes: Within normal limits. Vasculature: Abdominal aorta non-dilated. Soft tissues: Unremarkable. Bladder: Riojas catheter is noted within the bladder. There is high density material in the dependent portion consistent with stones. There are no large measurable stones. There is also air in the beth dder. No mass or calculi. Bowel: Large quantity of stool throughout the colon. No obstruction or bowel wall thickening. Peritoneal cavity: No ascites, collection or mesenteric inflammatory response. Reproductive organs: Unremarkable. Bones: Unremarkable for age. IMPRESSION: Bibasilar infiltrates consistent with pneumonia. High-density material in the bladder, likely representing stones. Large quantity of stool. RADIATION DOSE DELIVERED: Total DLP DATA REPOSITORY: All CT scans at this facility are submitted to the National Radiology Data Registry (NRDR) Dose Index Registry (DIR) with the [employer] (ACR). RADIATION OPTIMIZATION: All CT scans at this facility use at least one of these dose optimization te chniques: automated exposure control; mA and/or kV adjustment per patient size (includes targeted exa ms where dose is matched to clinical indication); or iterative reconstruction.
[2024-02-18] MEDS: Levothyroxine 112 MCG TAB PO (05:24)
[2024-02-18] MEDS: Levothyroxine 25 MCG TAB PO (05:24)
[2024-02-18 08:18] VITALS: BP 144/63; PULSE 76; RESP 18; TEMP 36.6; O2SAT 94
[2024-02-18] MEDS: Methadone Liquid 10 MG/ML 60 MG PO ×2 (09:25→21:00)
[2024-02-18] MEDS: Ticagrelor 90 MG TAB PO ×2 (09:26→20:58)
[2024-02-18] MEDS: Esomeprazole 40 MG CAPCR PO (09:26)
[2024-02-18] MEDS: amLODIPine 5 MG TAB PO (09:27)
[2024-02-18] MEDS: Carvedilol 12.5 MG TAB PO (09:27)
[2024-02-18] MEDS: Cholecalciferol (Vitamin D3) 1,000 UNIT TAB 1000 UNITS PO (09:27)
[2024-02-18] MEDS: Aspirin E.C. 81 MG TABEC PO (09:27)
[2024-02-18] MEDS: clonazePAM 0.5 MG TAB PO ×2 (09:27→20:58)
[2024-02-18] MEDS: Docusate Sodium 100 MG CAP 200 MG PO (09:27)
[2024-02-18] MEDS: Magnesium Oxide 400 MG TAB PO ×2 (09:28→20:59)
[2024-02-18] MEDS: Gabapentin 800 MG TAB PO ×2 (09:28→20:59)
[2024-02-18] MEDS: Polyethylene Glycol 3350 17 GM PACKET PO (09:38)
--- NOTE | 2024-02-18 10:31 | W.PALPGNOTE ---
Date of service: 02/18/24 Time of Service: 10:31 Assessment and Plan Assessment and plan (1) Palliative care patient: Status: Acute Assessment and plan: Today's visit with Mr. Le felt mostly with discharge planning and difficulty with placing a patient on long-term methadone treatment. (2) Methadone dependence: Status: Acute Assessment and plan: Discussion with Mr. Le today. He seemed taken aback by the recommendation from Dr. Lee to slowly taper his methadone dose from 90 mg daily to 60 mg daily. I explained that this was the recommendation of Dr. Lee. He needed to be reminded to Dr. Lee was but then remembered him. Somewhat difficult to understand his concerns. But he definitely did not agree. Did not seem to think it was a good idea. I explained that we were not going to stop His methadone. I showed him a glass and suggested that the full glass would be the current dose of methadone and then showed him visually that we will be cutting this by 25%. I am not sure if he understood May due to his expressive aphasia (and has known receptive aphasia as well). Unfortunately, his chosen healthcare agent daughter Alejandra has not responded to phone calls from case management or myself or hospitalist for at least 2 months. Both case management and myself have spoken on the phone with son Susie. I think discussing this with healthcare agent or surrogate would be the next way to go. Given concerns over patient's unclear consent to go forward with taper, plan is as follows: I truly believe that a slow taper from 120 to 90 mg is very unlikely to cause withdrawal, or illicit cravings in this patient. In fact I think there is benefit to this frail elderly gentleman with multiple morbidities and on multiple medications who is lost significant weight since his stroke to be on a lower dose of methadone. or nurse manager will once again try to contact 1.) daughter and if no response 2.) son Susie to discuss tapering methadone. Will ask Susie to discuss this with his dad. It would be best to proceed with consent from patient and/or healthcare agent/surrogate before going forward with slow taper. Another option is to discuss this case at ethics committee given the complexities of communication challenges with Mr. Le and difficulty understanding whether or not he is giving consent versus possible benefit of lower dose of methadone both clinically as well as improving safety of his placement. If and when consent is obtained to commence trial of methadone taper, I recommend: Recommendation to taper Methadone dose as recommended by Dr. Lee was discussed with hospitalist Dr. Ferrell. Exact rate of taper to be recommended by our pharmacist from 60mg BID to [address] Marin's recommendation was to do this over 10 days, but there is some advantage to doing a slower taper over15 or so days. Then CONTINUE DOSE at 45 mg BID. Would err on a LONGER PERIOD of taper rather than quicker. Patient patient will be monitored using Clinical Opiate withdrawal scale (COWS scale) every shift or more often. If he exhibits sign of withdrawal, we would stay at that dose for a week or so. If there are additional questions, please call Palliative Care Team or can call clinician at [facility]: [id number] or call PAS ([facility] haulage engine operator to call steam plant control room operator doc [phone]) Addendum: I will contact Dr. Lee later this week to confirm that he is willing to continue to be prescriber, if local [facility] has not yet accepted Mr. Le as a patient in [facility] and he is discharged to the community correction. 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 Most recent stumbling block is transferring patient's methadone prescribing from [facility] to local [facility]. Thus far [facility] has declined to accept patient. Phone call today with Dr. Koby Lee, director [facility] where patient had been receiving his methadone for the last 20+ years. 1.) Dr. Lee reports that he had talked with Dr. Laya Hackett, medical records technician at the [facility]. She requested that I call and talk with her. 2.) After review of the case, Dr. Koby Lee recommends the following: That we do a slow taper of the methadone. Patient currently receiving methadone 60 mg twice a day (total dose 120 mg a day). He recommends decreasing the methadone dose by 3 mg a day and then holding at 90 mg a day. 3.) Phone Call with Dr. Laya Hackett of the [facility] ([phone]). She shared concerns about having any adult community correction manage and dispense methadone. She does not have a specific concern about this particular home, but in general they have had some problems with diversion when methadone is managed and dispensed by nonrelative's. She is going to talk with her clinic directed Lyn Ortega about the possibility of coming to meet Mr. Le in the hospital or arranging for Mr. Le to come down by ambulette to their [facility] clinic. She will follow-up with Lisa Sam RN of case management Exam Narrative Exam Narrative: It is first observed coming back from having physical therapy downstairs. Apparently they had him work with the bars and using his hemiwalker and outpatient PT office. I talked to him once he is back in his bed about Dr. Lee recommendation to taper methadone dose. See discussion under Ren assessment/plan. I note that his speech is slightly improved and he is able to improve his pronunciation of words from last time I spoke with him. Still quite difficult to understand and still with significant expressive aphasia. He is also unable to engage in thumbs up thumbs down for yes and no. Objective Last Vital Signs Temp 36.6 C 02/18/24 08:18 Pulse 76 02/18/24 08:18 Resp 18 02/18/24 08:18 BP 144/63 H 02/18/24 08:18 Pulse Ox 94 02/18/24 08:18
--- NOTE | 2024-02-18 11:49 | PT.INTREAT ---
PT Notes Visit Reasons: Cerebrovascular accident Date: 02/18/24 SUBJECTIVE: Pt in bed when approached for therapy this morning, pt agreed to participating with transfers training. OBJECTIVE: Pain: Right shoulder? VITALS: monitored by nursing Provided skilled cues and instruction on performance and technique throughout. ? Therapeutic Exercises [id number]: Direct one-on-one instruction in therapeutic exercises to develop strength, endurance, range of motion and flexibility. From bed to recliner using Steady lift and 2 assist. Exercises. Seated in recliner. Right hip , knee, ankle PROM all planes [id number], AAROM for left hip, knee, ankle [id number] Recliner positioning for proper alignment to maximize comfort, safety using pillows for bolster. ?? ASSESSMENT:? Pt continues to manifest disinterest with exercise participation, pt barely participating. pt refused further engament after settling in recliner. PLAN: will continue to encourage participation in PT to work on increasing his strength and functional mobility. TREATMENT CODE/TIME: [id number] 15mins (11:26-11:41am)
[2024-02-18] MEDS: Insulin Aspart 300 UNITS/3 ML PEN SC (13:04)
--- NOTE | 2024-02-18 15:54 | PGE_ITS ---
Date of Service Date of service: 02/18/24 Time of Service: 15:54 Assessment and Plan Assessment and plan (1) Urinary retention: Status: Acute (2) UTI (urinary tract infection): Status: Acute Assessment and plan: With the sediment in his urine and the Proteus on his urine culture, we have to consider the possibility of stone debris either from the kidneys or the bladder. No such stone was found on his CT scan from last year, but as far as I am aware, he did not have a chronic indwelling catheter at that time. I have recommended a noncontrast CT of the abdomen and pelvis. Further recommendations will depend on the results. Subjective Subjective Interval history since last seen: The patient has transitioned from clean intermittent catheterization to an indwelling catheter. The catheter was most recently changed about 2 weeks ago. He is now having quite a bit of sediment and occlusion of the catheter requiring hand irrigation. He has had a positive urine culture for Proteus taken at his last catheter change. Exam Narrative Exam Narrative: He has expressive aphasia He does not appear acutely ill but more chronically ill His catheter is draining yellow urine that his layers of sediment Reviewed his last abdominal CT scan that was done in April of last year. At that time, there was no evidence of bladder stone or kidney stone Objective Last Vital Signs Temp 36.6 C 02/18/24 08:18 Pulse 76 02/18/24 08:18 Resp 18 02/18/24 08:18 BP 144/63 H 02/18/24 08:18 Pulse Ox 94 02/18/24 08:18 Time Spent with Patient Time Spent with Patient: 25-34 minutes Time was spent: preparing to see the patient(eg.review tests), obtaining and/or reviewing separately otained hiistory, ordering medications,tests, procedures and referring, communicating with other health chronic care nurse
[2024-02-18] MEDS: Sennosides/Docusate Sodium TAB 1 TAB PO (20:57)
[2024-02-18] MEDS: Atorvastatin 40 MG TAB 80 MG PO (20:58)
[2024-02-18] MEDS: ARIPiprazole 5 MG TAB PO (20:58)
[2024-02-18] MEDS: Mirtazapine 15 MG TAB 30 MG PO (20:59)
[2024-02-18] MEDS: Insulin Glargine 300 UNITS/3 ML PEN 12 UNITS SC (21:00)
[2024-02-19] MEDS: Levothyroxine 25 MCG TAB PO (05:24)
[2024-02-19] MEDS: Levothyroxine 112 MCG TAB PO (05:24)
[2024-02-19 07:33] VITALS: BP 105/55; PULSE 77; RESP 20; TEMP 36.3; O2SAT 96
[2024-02-19] MEDS: Lactulose 20 GM/30 ML CUP PO (09:00)
[2024-02-19] MEDS: Carvedilol 12.5 MG TAB PO (09:01)
[2024-02-19] MEDS: Gabapentin 800 MG TAB PO ×2 (09:01→21:16)
[2024-02-19] MEDS: Esomeprazole 40 MG CAPCR PO (09:01)
[2024-02-19] MEDS: clonazePAM 0.5 MG TAB PO ×2 (09:01→21:18)
[2024-02-19] MEDS: Polyethylene Glycol 3350 17 GM PACKET PO (09:01)
[2024-02-19] MEDS: Ticagrelor 90 MG TAB PO ×2 (09:01→21:17)
[2024-02-19] MEDS: Docusate Sodium 100 MG CAP 200 MG PO (09:01)
[2024-02-19] MEDS: amLODIPine 5 MG TAB PO (09:01)
[2024-02-19] MEDS: Aspirin E.C. 81 MG TABEC PO (09:01)
[2024-02-19] MEDS: Cholecalciferol (Vitamin D3) 1,000 UNIT TAB 1000 UNITS PO (09:01)
[2024-02-19] MEDS: Magnesium Oxide 400 MG TAB PO ×2 (09:02→21:11)
[2024-02-19] MEDS: Methadone Liquid 10 MG/ML 60 MG PO ×2 (09:02→21:22)
--- NOTE | 2024-02-19 10:15 | CMACTNOTE_ITS ---
Date of service: 02/19/24 Time of Service: 10:15 Care Management Activity Note Activity Note Text Activity Note Text: S/O: Ed remains in SB-1 status, although his participation with PT and OT is sporadic. He spends most of his time dozing or watching television. Ed's children have not been visiting as frequently so staff members have been visiting with him more. Ed has been more compliant with getting out of bed to a chair as long as he is allowed to return at an agreed upon time. Efforts continue to transition Ed to his [facility] home in [place]. The current barrier is with his methadone treatment program. He was discharged from [facility] but to date no other program will accept him for treatment. A team meeting was held last Saturday02/14/24 to discuss options. Included was Yola Mota from [facility], [facility] and Marquita Renee from [facility] and Lisa from [facility] Care Management. CM reported that Dr. Koby Lee from the [facility] planned to contact Dr. Laya Reardon at [facility] to try to coordinate a transfer of Ed's methadone maintenance to [facility] which is much closer. There is also a plan to slowly reduce the dose of methadonew that Ed is receiving. Ed's discharge is on hold until this issue can be resolved. A: Ed is a 73 year old man admitted on 10/31/23 with pneumonia . P: Ed will likely transition to an [facility] ([facility]ult Family [facility]) home in [place] when all arrangements have been finalized. CM will continue to follow and support Ed and his discharge planning needs.
[2024-02-19] MEDS: Insulin Aspart 300 UNITS/3 ML PEN SC ×2 (13:00→18:01)
[2024-02-19] MEDS: Normal Saline Flush 10 ML SYR IVP (21:15)
[2024-02-19] MEDS: Mirtazapine 15 MG TAB 30 MG PO (21:16)
[2024-02-19] MEDS: Atorvastatin 40 MG TAB 80 MG PO (21:18)
[2024-02-19] MEDS: ARIPiprazole 5 MG TAB PO (21:20)
[2024-02-19] MEDS: Sennosides/Docusate Sodium TAB 1 TAB PO (21:21)
[2024-02-19] MEDS: Insulin Glargine 300 UNITS/3 ML PEN 12 UNITS SC (21:23)
[2024-02-20] MEDS: Levothyroxine 25 MCG TAB PO (05:45)
[2024-02-20] MEDS: Levothyroxine 112 MCG TAB PO (05:45)
[2024-02-20] MEDS: clonazePAM 0.5 MG TAB PO ×2 (09:51→21:23)
[2024-02-20] MEDS: Docusate Sodium 100 MG CAP 200 MG PO (09:51)
[2024-02-20] MEDS: Ticagrelor 90 MG TAB PO ×2 (09:52→21:22)
[2024-02-20] MEDS: Gabapentin 800 MG TAB PO ×2 (09:53→21:23)
[2024-02-20] MEDS: Aspirin E.C. 81 MG TABEC PO (09:53)
[2024-02-20] MEDS: Cholecalciferol (Vitamin D3) 1,000 UNIT TAB 1000 UNITS PO (09:53)
[2024-02-20] MEDS: amLODIPine 5 MG TAB PO (09:53)
[2024-02-20] MEDS: Magnesium Oxide 400 MG TAB PO ×2 (09:53→21:23)
[2024-02-20] MEDS: Esomeprazole 40 MG CAPCR PO (09:54)
[2024-02-20] MEDS: Carvedilol 12.5 MG TAB PO (09:54)
[2024-02-20] MEDS: Methadone Liquid 10 MG/ML 60 MG PO ×2 (09:55→21:26)
[2024-02-20] MEDS: Insulin Aspart 300 UNITS/3 ML PEN SC ×3 (09:57→17:57)
[2024-02-20 10:25] VITALS: BP 121/60; PULSE 69; RESP 16; TEMP 36.4; O2SAT 92
--- NOTE | 2024-02-20 16:05 | W.PM.PROGNOT ---
Date of Service Date of service: 02/20/24 Time of Service: 16:05 Assessment and Plan Assessment and plan (1) Urinary retention: Status: Acute (2) UTI (urinary tract infection): Status: Acute (3) Bladder stones: Assessment and plan: He does not have large formed bladder stones, but he does have stone debris within the dependent portion of the bladder. This radiographic finding is often seen with struvite crystals occur from urease splitting organism infections. We generally do not recommend treating asymptomatic bacteriuria in patients with chronic indwelling catheters. This patient however, could be considered symptomatic because of the stone debris and the effect it has on his catheter. Luckily, he is not having any signs or symptoms of sepsis. We will start with Bactrim DS 1 pill twice a day. Often, these patients will improve simply with treating the underlying bacteria. Once the bacteria has been treated, we generally recommend alkalinizing the urine with potassium citrate to help future episodes of struvite stone. Subjective Subjective Interval history since last seen: The patient continues to have leakage around his catheter and debris within the urine. He has had his noncontrast CT of the abdomen and pelvis Exam Narrative Exam Narrative: He does not appear acutely ill He has expressive aphasia. I reviewed his CT scan on the PACS system. There are no large formed stones in the bladder, but there is quite a bit of stone debris. His most recent urine culture grew Proteus and his urine same date showed struvite crystals in the urine Objective Last Vital Signs Temp 36.4 C 02/20/24 10:25 Pulse 69 02/20/24 10:25 Resp 16 02/20/24 10:25 BP 121/60 02/20/24 10:25 Pulse Ox 92 02/20/24 10:25 Time Spent with Patient Time Spent with Patient: <25 minutes Time was spent: indepentently interpreting results and other
--- NOTE | 2024-02-20 16:47 | STREC_ITS ---
Date of service: 02/20/24 Time of Service: 16:00 Speech Therapy Recommendations Report ST Recommendations: IMPACT HAMMER OPERATOR services attempted; patient too somnolent to participate. Of note, fatigue has been an increased barrier to participation in IMPACT HAMMER OPERATOR services across recent w eeks.
--- NOTE | 2024-02-20 16:47 | PDOC.STREC ---
Date of service: 02/20/24 Time of Service: 16:00 Speech Therapy Recommendations Report ST Recommendations: CONCERT MANAGER services attempted; patient too somnolent to participate. Of note, fatigue has been an increased barrier to participation in CONCERT MANAGER services across recent weeks.
[2024-02-20] MEDS: Sulfameth/Trimeth DS TAB 1 TAB PO (17:21)
[2024-02-20] MEDS: Sennosides/Docusate Sodium TAB 1 TAB PO (21:22)
[2024-02-20] MEDS: ARIPiprazole 5 MG TAB PO (21:22)
[2024-02-20] MEDS: Mirtazapine 15 MG TAB 30 MG PO (21:22)
[2024-02-20] MEDS: Insulin Glargine 300 UNITS/3 ML PEN 12 UNITS SC (21:23)
[2024-02-20] MEDS: Atorvastatin 40 MG TAB 80 MG PO (21:23)
[2024-02-21] MEDS: Sulfameth/Trimeth DS TAB 1 TAB PO ×2 (05:03→17:07)
[2024-02-21] MEDS: Levothyroxine 25 MCG TAB PO (05:03)
[2024-02-21] MEDS: Levothyroxine 112 MCG TAB PO (05:03)
[2024-02-21 06:33] VITALS: BP 108/57; PULSE 71; RESP 16; TEMP 35.8; O2SAT 92
[2024-02-21 08:29] VITALS: BP 134/62; PULSE 70; RESP 16; TEMP 35.8; O2SAT 91
[2024-02-21] MEDS: Carvedilol 12.5 MG TAB PO (09:39)
[2024-02-21] MEDS: Gabapentin 800 MG TAB PO ×2 (09:39→20:05)
[2024-02-21] MEDS: amLODIPine 5 MG TAB PO (09:39)
[2024-02-21] MEDS: Cholecalciferol (Vitamin D3) 1,000 UNIT TAB 1000 UNITS PO (09:39)
[2024-02-21] MEDS: Aspirin E.C. 81 MG TABEC PO (09:40)
[2024-02-21] MEDS: Docusate Sodium 100 MG CAP 200 MG PO (09:40)
[2024-02-21] MEDS: clonazePAM 0.5 MG TAB PO ×2 (09:40→20:05)
[2024-02-21] MEDS: Magnesium Oxide 400 MG TAB PO ×2 (09:40→20:05)
[2024-02-21] MEDS: Ticagrelor 90 MG TAB PO ×2 (09:40→20:05)
[2024-02-21] MEDS: Methadone Liquid 10 MG/ML 60 MG PO ×2 (09:42→20:04)
[2024-02-21] MEDS: Esomeprazole 40 MG CAPCR PO (09:43)
[2024-02-21] MEDS: Insulin Aspart 300 UNITS/3 ML PEN SC (09:45)
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
[2024-02-21 12:32] LABS: Abs Immature Grans 0.04 10^3/uL (0.0-0.06); Absolute Basophil Count 0.07 10^3/uL (0.0-0.2); Absolute Monocyte Count 0.58 10^3/uL (0.1-0.8); Absolute Neutrophil Count 9.32 10^3/uL (1.2-6.7); Basophils % 0.6; HCT 31.1 % (40.0-50.0); HGB 10.1 g/dL (13.5-17.5); Immature Grans % 0.3; Lymphocytes % 10.2; MCH 28.9 pg (27.0-33.0); MCHC 32.5 % (32.0-36.0); MCV 89 fL (80-95); MPV 9.9 fL (8.0-11.0); Neutrophils % 80.9; Platelet Count 257 10^3/uL (130-400); RBC 3.49 10^6/uL (4.36-5.78); RDW 14.2 % (11.8-14.1); RDW-SD 45.6 fL; WBC 11.52 10^3/uL (4.4-10.8)
[2024-02-21 12:33] LABS: Absolute Eosinophil Count 0.35 10^3/uL (0.0-0.7); Absolute Lymphocyte Count 1.18 10^3/uL (1.2-3.4)
[2024-02-21 12:51] LABS: Anion Gap 5.3 mmol/L (3-11); BUN 38 mg/dL (7-18); CO2 29.7 mmol/L (21.0-32.0); Calcium 8.6 mg/dL (8.5-10.1); Chloride 107 mmol/L (98-107); Estimated GFR 80.47 (mL/min/1.73m2); Glucose 211 mg/dL (74-106); Potassium 3.8 mmol/L (3.5-5.1); Sodium 142 mmol/L (136-145)
--- NOTE | 2024-02-21 13:38 | NT_ITS ---
PT Notes Visit Reasons: Cerebrovascular accident Pt agreed for this therapist to enter pt room, pt is on contact precaution so this therapist donned PPE, pt refused participating with session despite offer of bed level activity. WILDLIFE BIOLOGY TECHNICIAN's tried to perform ADL's with pt with pt mildly agitated and resistant to care, supervising therapist updated of pt refusal.
--- NOTE | 2024-02-21 17:35 | PDOC.STREC ---
Date of service: 02/21/24 Time of Service: 17:36 Speech Therapy Recommend[address] Report ST Recommendations: Patient not agreeable to participate in therapy this date. Of note, he has a UTI per chart review.
[2024-02-21] MEDS: Sennosides/Docusate Sodium TAB 1 TAB PO (20:05)
[2024-02-21] MEDS: Atorvastatin 40 MG TAB 80 MG PO (21:31)
[2024-02-21] MEDS: Insulin Glargine 300 UNITS/3 ML PEN 12 UNITS SC (21:31)
[2024-02-21] MEDS: ARIPiprazole 5 MG TAB PO (21:32)
[2024-02-21] MEDS: Mirtazapine 15 MG TAB 30 MG PO (21:32)
[2024-02-22] MEDS: Levothyroxine 112 MCG TAB PO (05:16)
[2024-02-22] MEDS: Sulfameth/Trimeth DS TAB 1 TAB PO ×2 (05:17→17:27)
[2024-02-22] MEDS: Levothyroxine 25 MCG TAB PO (05:17)
[2024-02-22 06:09] LABS: Bilirubin Small (Negative); Blood Large (Negative); Clarity Sl Cloudy (Clear); Glucose Negative (Negative); Ketones Trace mg/dL (Negative); Leukocyte Esterase Large (Negative); Nitrite Positive (Negative); Specific Gravity 1.025 (1.005-1.025); pH 7.5 (5-8)
[2024-02-22 06:15] LABS: C & S Indicated? Yes; RBC >50 HPF (0-2); WBC >50 HPF (0-5)
[2024-02-22 08:36] VITALS: BP 135/83; PULSE 79; RESP 18; TEMP 36.3; O2SAT 92
[2024-02-22] MEDS: Ticagrelor 90 MG TAB PO ×2 (08:41→20:17)
[2024-02-22] MEDS: Methadone Liquid 10 MG/ML 60 MG PO ×2 (08:41→20:17)
[2024-02-22] MEDS: Docusate Sodium 100 MG CAP 200 MG PO (08:42)
[2024-02-22] MEDS: Esomeprazole 40 MG CAPCR PO (08:42)
[2024-02-22] MEDS: Aspirin E.C. 81 MG TABEC PO (08:42)
[2024-02-22] MEDS: clonazePAM 0.5 MG TAB PO ×2 (08:42→20:17)
[2024-02-22] MEDS: Gabapentin 800 MG TAB PO ×2 (08:42→20:17)
[2024-02-22] MEDS: Magnesium Oxide 400 MG TAB PO ×2 (08:43→20:17)
[2024-02-22] MEDS: Cholecalciferol (Vitamin D3) 1,000 UNIT TAB 1000 UNITS PO (08:43)
[2024-02-22] MEDS: Carvedilol 12.5 MG TAB PO (08:45)
[2024-02-22] MEDS: Insulin Aspart 300 UNITS/3 ML PEN SC ×3 (08:45→17:27)
[2024-02-22] MEDS: amLODIPine 5 MG TAB PO (08:52)
[2024-02-22 12:16] LABS: Abs Immature Grans 0.02 10^3/uL (0.0-0.06); Absolute Basophil Count 0.07 10^3/uL (0.0-0.2); Absolute Monocyte Count 0.72 10^3/uL (0.1-0.8); Absolute Neutrophil Count 5.73 10^3/uL (1.2-6.7); Basophils % 0.9; Eosinophils % 2.6; HCT 30.7 % (40.0-50.0); Immature Grans % 0.3; Lymphocytes % 11.8; MCH 28.6 pg (27.0-33.0); MCHC 32.6 % (32.0-36.0); MCV 88 fL (80-95); MPV 10.1 fL (8.0-11.0); Monocytes % 9.4; Platelet Count 286 10^3/uL (130-400); RDW 13.9 % (11.8-14.1); RDW-SD 44.6 fL; WBC 7.64 10^3/uL (4.4-10.8)
[2024-02-22] MEDS: Lactated Ringers 1,000 ML 100 ML IV (18:06)
[2024-02-22] MEDS: Sennosides/Docusate Sodium TAB 1 TAB PO (20:17)
[2024-02-22] MEDS: Mirtazapine 15 MG TAB 30 MG PO (20:23)
[2024-02-22] MEDS: Atorvastatin 40 MG TAB 80 MG PO (20:23)
[2024-02-22] MEDS: ARIPiprazole 5 MG TAB PO (20:23)
[2024-02-22] MEDS: Insulin Glargine 300 UNITS/3 ML PEN 12 UNITS SC (20:25)
[2024-02-23] MEDS: Levothyroxine 112 MCG TAB PO (06:02)
[2024-02-23] MEDS: Sulfameth/Trimeth DS TAB 1 TAB PO ×2 (06:02→16:55)
[2024-02-23] MEDS: Levothyroxine 25 MCG TAB PO (06:02)
[2024-02-23 07:22] LABS: Bilirubin Negative (Negative); Blood Moderate (Negative); Clarity Sl Cloudy (Clear); Glucose Negative (Negative); Ketones Negative (Negative); Leukocyte Esterase Trace (Negative); Nitrite Negative (Negative); Specific Gravity 1.025 (1.005-1.025)
[2024-02-23 07:31] LABS: Bacteria Moderate HPF (Negative); Epithelial Cells Rare HPF (Negative)
[2024-02-23 07:32] LABS: C & S Indicated? Yes; Casts Negative LPF (Negative); Crystals Few Amorphous HPF (Negative); Mucus Trace (Negative)
[2024-02-23 07:35] LABS: Abs Immature Grans 0.04 10^3/uL (0.0-0.06); Absolute Basophil Count 0.05 10^3/uL (0.0-0.2); Absolute Eosinophil Count 0.37 10^3/uL (0.0-0.7); Absolute Lymphocyte Count 1.29 10^3/uL (1.2-3.4); Absolute Monocyte Count 0.73 10^3/uL (0.1-0.8); Absolute Neutrophil Count 4.63 10^3/uL (1.2-6.7); Basophils % 0.7; Eosinophils % 5.2; HCT 29.9 % (40.0-50.0); HGB 9.7 g/dL (13.5-17.5); Immature Grans % 0.6; Lymphocytes % 18.1; MCH 28.9 pg (27.0-33.0); MCHC 32.4 % (32.0-36.0); MCV 89 fL (80-95); MPV 9.9 fL (8.0-11.0); Monocytes % 10.3; Neutrophils % 65.1; Platelet Count 255 10^3/uL (130-400); RBC 3.36 10^6/uL (4.36-5.78); RDW 13.8 % (11.8-14.1); RDW-SD 45.2 fL; WBC 7.11 10^3/uL (4.4-10.8)
[2024-02-23 07:54] LABS: Anion Gap 2.8 mmol/L (3-11); BUN 32 mg/dL (7-18); CO2 29.2 mmol/L (21.0-32.0); Calcium 8.6 mg/dL (8.5-10.1); Chloride 109 mmol/L (98-107); Estimated GFR 80.47 (mL/min/1.73m2); Glucose 180 mg/dL (74-106); Potassium 3.9 mmol/L (3.5-5.1); Sodium 141 mmol/L (136-145)
[2024-02-23] MEDS: Magnesium Oxide 400 MG TAB PO ×2 (08:29→20:29)
[2024-02-23] MEDS: Esomeprazole 40 MG CAPCR PO (08:29)
[2024-02-23] MEDS: Polyethylene Glycol 3350 17 GM PACKET PO (08:29)
[2024-02-23] MEDS: Docusate Sodium 100 MG CAP 200 MG PO (08:29)
[2024-02-23] MEDS: Ticagrelor 90 MG TAB PO ×2 (08:31→20:28)
[2024-02-23] MEDS: Aspirin E.C. 81 MG TABEC PO (08:31)
[2024-02-23] MEDS: Gabapentin 800 MG TAB PO ×2 (08:31→20:29)
[2024-02-23] MEDS: Cholecalciferol (Vitamin D3) 1,000 UNIT TAB 1000 UNITS PO (08:31)
[2024-02-23] MEDS: amLODIPine 5 MG TAB PO (08:31)
[2024-02-23] MEDS: clonazePAM 0.5 MG TAB PO ×2 (08:31→20:28)
[2024-02-23] MEDS: Carvedilol 12.5 MG TAB PO (08:31)
[2024-02-23] MEDS: Methadone Liquid 10 MG/ML 60 MG PO ×2 (08:32→20:27)
[2024-02-23 08:54] VITALS: BP 133/62; PULSE 69; RESP 19; TEMP 35.7; O2SAT 92
[2024-02-23] MEDS: Insulin Aspart 300 UNITS/3 ML PEN SC ×3 (09:17→17:58)
[2024-02-23] MEDS: Lactobacillus Acidophilus CAP 1 CAP PO (12:02)
[2024-02-23] MEDS: ARIPiprazole 5 MG TAB PO (20:28)
[2024-02-23] MEDS: Mirtazapine 15 MG TAB 30 MG PO (20:28)
[2024-02-23] MEDS: Atorvastatin 40 MG TAB 80 MG PO (20:28)
[2024-02-23] MEDS: Insulin Glargine 300 UNITS/3 ML PEN 12 UNITS SC (20:29)
[2024-02-23] MEDS: Sennosides/Docusate Sodium TAB 1 TAB PO (20:29)
[2024-02-24] MEDS: Levothyroxine 25 MCG TAB PO (06:08)
[2024-02-24] MEDS: Sulfameth/Trimeth DS TAB 1 TAB PO ×2 (06:08→17:33)
[2024-02-24] MEDS: Levothyroxine 112 MCG TAB PO (06:08)
[2024-02-24] MEDS: Insulin Aspart 300 UNITS/3 ML PEN SC (09:04)
[2024-02-24] MEDS: Methadone Liquid 10 MG/ML 60 MG PO ×2 (10:18→20:17)
[2024-02-24] MEDS: Esomeprazole 40 MG CAPCR PO (10:18)
[2024-02-24] MEDS: Gabapentin 800 MG TAB PO ×2 (10:19→20:16)
[2024-02-24] MEDS: clonazePAM 0.5 MG TAB PO ×2 (10:19→20:15)
[2024-02-24] MEDS: Aspirin E.C. 81 MG TABEC PO (10:19)
[2024-02-24] MEDS: Cholecalciferol (Vitamin D3) 1,000 UNIT TAB 1000 UNITS PO (10:19)
[2024-02-24] MEDS: Ticagrelor 90 MG TAB PO ×2 (10:19→20:15)
[2024-02-24] MEDS: Carvedilol 12.5 MG TAB PO (10:19)
[2024-02-24] MEDS: Magnesium Oxide 400 MG TAB PO ×2 (10:19→20:16)
[2024-02-24] MEDS: Lactobacillus Acidophilus CAP 1 CAP PO (10:19)
[2024-02-24] MEDS: Docusate Sodium 100 MG CAP 200 MG PO (10:19)
[2024-02-24] MEDS: amLODIPine 5 MG TAB PO (10:19)
--- NOTE | 2024-02-24 16:16 | CMPROGNOTE_ITS ---
Date of service: 02/24/24 Time of Service: 16:16 Care Management Progress Note Progress Note Text Progress Note Text: S/O: Ed remains in SB-1 status. Efforts to transition Ed to his A[facility] home in [place] continue. RONDA has been working with [facility] to try to establish his methadone maintenance at their facility. Dr. Laya Reardon at [facility] has agreed to admit Ed to their program. The initial meeting is scheduled for Saturday02/28/24 at 10 am at [facility]. RONDA is coordinating transportation and will likely attend the meeting along with Trudy Torres, Ed's AFC home provider. Once Ed is established at [facility] he will transition to [facility]'s home in [place]. A: Ed is a 73 year old man admitted on 10/31/23 with pneumonia . P: Ed will likely transition to an [facility] ([facility]ult Family Care) home in [place] when all arrangements have been finalized. CM will continue to follow and support Ed and his discharge planning needs. SDOH(Care Management) Screening Will the Patient Participate in the Screening?: Declined to provide
--- NOTE | 2024-02-24 16:16 | PDOC.CMPRO ---
Date of service: 02/24/24 Time of Service: 16:16 Care Management Progress Note Progress Note Text Progress Note Text: S/O: Ed remains in SB-1 status. Efforts to transition Ed to his AFC home in [place] continue. RONDA has been working with [facility] to try to establish his methadone maintenance at their facility. Dr. Laya Reardon at [facility] has agreed to admit Ed to their program. The initial meeting is scheduled for Saturday02/28/24 at 10 am at [facility]. RONDA is coordinating transportation and will likely attend the meeting along with Trudy Torres, Ed's AFC home provider. Once Ed is established at [facility] he will transition to [facility]'s home in [place]. A: Ed is a 73 year old man admitted on 10/31/23 with pneumonia . P: Ed will likely transition to an [facility] ([facility] Family [facility]) home in [place] when all arrangements have been finalized. CM will continue to follow and support Ed and his discharge planning needs. SDOH(Care Management) Screening Will the Patient Participate in the Screening?: Declined to provide
--- NOTE | 2024-02-24 16:25 | STREC_ITS ---
Date of service: 02/24/24 Speech Therapy Recommendations Report ST Recommendations: SMOKE AND FLAME SPECIALIST DISCHARGE SUMMARY: Reason for Discharge: Ed has been actively followed by SMOKE AND FLAME SPECIALIST services since admission to [facility], targeting dysphagia and expressive/receptive aphasia. Recommend discharge from SMOKE AND FLAME SPECIALIST services at this time in light of plateau in progress and inconsistent ability to participate in SMOKE AND FLAME SPECIALIST sessions in light of fatigue/somnolence. He may benefit from brief episode of SMOKE AND FLAME SPECIALIST services upon discharge for communication strategy training with new caregivers, as well as staff training for carryover of dysphagia recommendations. *Ed remains at chronic heightened risk for aspiration, see ongoing precautions below. Aspiration precautions are also posted within patient's room. FURTHER INPATIENT SMOKE AND FLAME SPECIALIST SERVICES: Patient to be followed on unit for trial treatment stimulability with communication and monitoring dysphagia needs - 2-4x weekly. DISCHARGE RECOMMENDATIONS: Recommend SMOKE AND FLAME SPECIALIST services at [facility] vs Home Health SMOKE AND FLAME SPECIALIST at least for initial strategy training with staff for communication and dysphagia. DIET RECOMMENDATIONS: Patient is at high risk of aspiration and should receive close supervision ass istance during PO intake, with strict precautions as outlined below. SOLIDS: 5-Minced & Moist Solids LIQUIDS: 0-Thin Liquids - via provale cup or ensure very small sip size and fully upright posture MEDICATIONS: Whole one at a time with sips liquid, or whole in applesauce/pudding Level of Assistance/Supervision: Close supervision/partial assist with trained staff/family for all PO intake Positioning and environment: PO intake only when awake/alert? Reduce auditory and/or visual distractions when eating Junior upright for all PO intake. Oral hygiene Before/after PO intake Using friction with toothbrush on all oral structures as tolerated Additional Safety Strategies: Small sips approx 10mL Small bites approx [id number] COMMUNICATION RECOMMENDATIONS: Comprehension: Reduce length of sentences and complexity of words Utilize demonstration and gesture as much as possible Provide visual aids/resources whenever possible Offer simplified written text whenever possible for patient to review Expression: Allow patient additional time to express self and/or multiple attempts to find word(s) For word finding difficulties during conversation: Provide patient with visual aids (smallest possible field of choice) and allow him to make a choice using pointing or repetition Provide assistance with reading text aloud, encouraging spoken repetition (especially of multisyllabic words) Encourage use of relevant gestures to enhance expression Goals: Intermediate Goals: Patient will remain free from aspiration-related illness, malnutrition, and dehydration. MET Patient/caregivers will verbalize comprehension of education provided re: dx, strategies to maximize functioning, and role of ST. MET Short Term Goals: Patient will participate in ongoing diagnostic treatment addressing communication. MET Patient will tolerate Minced/Moist Diet and Thin liquids without overt s/s aspiration across 2/2 visits. MET Patient/caregivers will be independent with safe swallow/risk management strategies. Patient has moved rooms since last visit with this clinician - added recommendations to white board for nursing and reminded them of his aspiration precautiosn. MET Patient will repeat 10 trained functional single 1-syllable words given direct model from clinician with at least 80% accuracy x1-2 sessions. PARTIAL/NOT MET
[2024-02-24] MEDS: Sennosides/Docusate Sodium TAB 1 TAB PO (20:15)
[2024-02-24] MEDS: ARIPiprazole 5 MG TAB PO (20:15)
[2024-02-24] MEDS: Atorvastatin 40 MG TAB 80 MG PO (20:15)
[2024-02-24] MEDS: Mirtazapine 15 MG TAB 30 MG PO (20:16)
[2024-02-24] MEDS: Insulin Glargine 300 UNITS/3 ML PEN 12 UNITS SC (20:16)
[2024-02-25] MEDS: Sulfameth/Trimeth DS TAB 1 TAB PO ×2 (05:07→17:10)
[2024-02-25] MEDS: Levothyroxine 112 MCG TAB PO (05:07)
[2024-02-25] MEDS: Levothyroxine 25 MCG TAB PO (05:07)
[2024-02-25 05:11] VITALS: BP 145/72; PULSE 75; RESP 16; TEMP 36.6; O2SAT 93
[2024-02-25 08:01] VITALS: BP 152/57; PULSE 70; RESP 18; TEMP 36.3; O2SAT 95
[2024-02-25] MEDS: Methadone Liquid 10 MG/ML 60 MG PO ×2 (09:38→20:45)
[2024-02-25] MEDS: Esomeprazole 40 MG CAPCR PO (09:39)
[2024-02-25] MEDS: Carvedilol 12.5 MG TAB PO (09:39)
[2024-02-25] MEDS: Ticagrelor 90 MG TAB PO ×2 (09:39→20:46)
[2024-02-25] MEDS: Aspirin E.C. 81 MG TABEC PO (09:39)
[2024-02-25] MEDS: clonazePAM 0.5 MG TAB PO ×2 (09:39→20:46)
[2024-02-25] MEDS: Docusate Sodium 100 MG CAP 200 MG PO (09:39)
[2024-02-25] MEDS: Gabapentin 800 MG TAB PO ×2 (09:39→20:46)
[2024-02-25] MEDS: Lactobacillus Acidophilus CAP 1 CAP PO (09:39)
[2024-02-25] MEDS: Insulin Aspart 300 UNITS/3 ML PEN SC ×3 (09:40→17:28)
[2024-02-25] MEDS: Cholecalciferol (Vitamin D3) 1,000 UNIT TAB 1000 UNITS PO (09:40)
[2024-02-25] MEDS: amLODIPine 5 MG TAB PO (09:40)
[2024-02-25] MEDS: Magnesium Oxide 400 MG TAB PO ×2 (09:40→20:46)
[2024-02-25] MEDS: Sennosides/Docusate Sodium TAB 1 TAB PO (20:45)
[2024-02-25] MEDS: Mirtazapine 15 MG TAB 30 MG PO (20:46)
[2024-02-25] MEDS: ARIPiprazole 5 MG TAB PO (20:46)
[2024-02-25] MEDS: Atorvastatin 40 MG TAB 80 MG PO (20:46)
[2024-02-25] MEDS: Insulin Glargine 300 UNITS/3 ML PEN 12 UNITS SC (21:21)
[2024-02-26] MEDS: Sulfameth/Trimeth DS TAB 1 TAB PO ×2 (04:44→17:32)
[2024-02-26] MEDS: Levothyroxine 112 MCG TAB PO (04:46)
[2024-02-26] MEDS: Levothyroxine 25 MCG TAB PO (04:46)
[2024-02-26] MEDS: Docusate Sodium 100 MG CAP 200 MG PO (08:19)
[2024-02-26] MEDS: Lactobacillus Acidophilus CAP 1 CAP PO (08:19)
[2024-02-26] MEDS: clonazePAM 0.5 MG TAB PO ×2 (08:19→20:51)
[2024-02-26] MEDS: Methadone Liquid 10 MG/ML 60 MG PO ×2 (08:19→20:51)
[2024-02-26] MEDS: Ticagrelor 90 MG TAB PO ×2 (08:19→20:51)
[2024-02-26] MEDS: Esomeprazole 40 MG CAPCR PO (08:20)
[2024-02-26] MEDS: Cholecalciferol (Vitamin D3) 1,000 UNIT TAB 1000 UNITS PO (08:20)
[2024-02-26] MEDS: Aspirin E.C. 81 MG TABEC PO (08:20)
[2024-02-26] MEDS: Carvedilol 12.5 MG TAB PO (08:20)
[2024-02-26] MEDS: Magnesium Oxide 400 MG TAB PO ×2 (08:20→20:51)
[2024-02-26] MEDS: Gabapentin 800 MG TAB PO ×2 (08:20→20:51)
[2024-02-26] MEDS: amLODIPine 5 MG TAB PO (08:21)
[2024-02-26] MEDS: Insulin Aspart 300 UNITS/3 ML PEN SC ×3 (08:40→17:34)
--- NOTE | 2024-02-26 10:27 | CMPROGNOTE_ITS ---
Care Management Progress Note Progress Note Text Progress Note Text: Ed remains in SB-1 status. Efforts to transition Ed to his [facility] home in [place] continue. 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 Dr. Laya Reardon at [facility] has agreed to admit Ed to their program. Ed's initial appointment at [facility] with Dr. Reardon is scheduled for Saturday02/28/24@1000. Ed will transport via [employer] W/C van to his [facility] appointment, [facility] has requested that [facility] contact them when Ed is ready to return to [facility]. SDOH(Care Management) Screening Will the Patient Participate in the Screening?: Declined to provide
--- NOTE | 2024-02-26 10:27 | PDOC.CMPRO ---
Care Management Progress Note Progress Note Text Progress Note Text: Ed remains in SB-1 status. Efforts to transition Ed to his [facility] home in [place] continue. 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 Dr. Laya Reardon at [facility] has agreed to admit Ed to their program. Ed's initial appointment at [facility] with Dr. Reardon is scheduled for Saturday02/28/24@1000. Ed will transport via [employer] W/C van to his [facility] appointment, [facility] has requested that [facility] contact them when Ed is ready to return to [facility]. SDOH(Care Management) Screening Will the Patient Participate in the Screening?: Declined to provide
--- NOTE | 2024-02-26 11:16 | PT.INTREAT ---
PT Notes Visit Reasons: Cerebrovascular accident Inpatient Physical Therapy Treatment Note [facility] Date: 02/26/24 PRECAUTIONS: Contact OBJECTIVE: Therapeutic Activities ([id number][]): Direct one-on-one instruction in dynamic activities to improve functional performance. ? BED MOBILITY/TRANSFERS? Supine-sit: Min/modx2? Sit-supine: Min/modx2 ? Sit-stand: Modx2 with steady x 3 ? Stand-sit: Modx2 with steady x 3 ? Therapeutic Exercises (95820a[1]): Direct one-on-one instruction in therapeutic exercises to develop strength, endurance, range of motion and flexibility. ? Exercises ? L UE rowing x 10 L UE shoulder flexion x 10 L horz abd x 10 with assist on all R UE lbow flex/ext stretching Hands clasp and shoulder flexion with assist R UE x 10 L LE heel slides x 10 L hip abd x 10 L SLR x 10 ASSESSMENT:? Pt is very motivated today. PLAN: Cont as per PT POC. TREATMENT CODE/TIME: 10:45-11:15 (30) TONY DYE
[2024-02-26] MEDS: ARIPiprazole 5 MG TAB PO (20:51)
[2024-02-26] MEDS: Sennosides/Docusate Sodium TAB 1 TAB PO (20:51)
[2024-02-26] MEDS: Mirtazapine 15 MG TAB 30 MG PO (20:51)
[2024-02-26] MEDS: Atorvastatin 40 MG TAB 80 MG PO (20:51)
[2024-02-27] MEDS: Sulfameth/Trimeth DS TAB 1 TAB PO (04:41)
[2024-02-27 04:56] VITALS: BP 118/67; PULSE 73; RESP 14; TEMP 36.1; O2SAT 97
[2024-02-27] MEDS: Levothyroxine 25 MCG TAB PO (05:53)
[2024-02-27] MEDS: Levothyroxine 112 MCG TAB PO (05:53)
[2024-02-27] MEDS: Insulin Aspart 300 UNITS/3 ML PEN SC ×3 (08:22→17:50)
[2024-02-27] MEDS: Docusate Sodium 100 MG CAP 200 MG PO (08:24)
[2024-02-27] MEDS: amLODIPine 5 MG TAB PO (08:24)
[2024-02-27] MEDS: Aspirin E.C. 81 MG TABEC PO (08:26)
[2024-02-27] MEDS: Carvedilol 12.5 MG TAB PO (08:26)
[2024-02-27] MEDS: clonazePAM 0.5 MG TAB PO ×2 (08:27→22:24)
[2024-02-27] MEDS: Cholecalciferol (Vitamin D3) 1,000 UNIT TAB 1000 UNITS PO (08:27)
[2024-02-27] MEDS: Lactobacillus Acidophilus CAP 1 CAP PO (08:28)
[2024-02-27] MEDS: Gabapentin 800 MG TAB PO ×2 (08:28→22:25)
[2024-02-27] MEDS: Magnesium Oxide 400 MG TAB PO ×2 (08:28→22:25)
[2024-02-27] MEDS: Esomeprazole 40 MG CAPCR PO (08:28)
[2024-02-27] MEDS: Ticagrelor 90 MG TAB PO ×2 (08:29→22:25)
[2024-02-27] MEDS: Methadone Liquid 10 MG/ML 60 MG PO ×2 (08:39→22:24)
--- NOTE | 2024-02-27 13:26 | PT.INPN ---
PT Notes Visit Reasons: Cerebrovascular accident Physical Therapy Swing Bed Level I Progress Note Date: 02/27/2024 Dates of Service: 02/14/2024 - 02/27/2024 Precautions: Fall. Activity as tolerated. Aphasic (global). Motor apraxic. Subjective: Agreeable to trying out standing using the STEDY lift. Did not look stable sitting at edge of bed, lost balance one time and fell back onto pillow but PT was able to providesupport right away. Objective: General Observation: Resting in bed. Riojas catheter in place. Mental Status: Motor apraxia and aphasia limiting ability to comprehend instructions execute movement, and express self Pain: No expression of pain throughout ROM: Right Upper Extremity: R UE hemiplegia. Tolerates passive shoulder flexion to about 30 degrees before onset of pain. Full passive elbow extension, flexion to 80 degrees before onset of pain. Left Upper Extremity: WFL Right Lower Extremity: Hip and knee motion resistant when 50%o f PROM was reached due to discomfort. Left Lower Extremity: Hip flexion WFL. Hip abduction WFL. Knee flexion WFL. Ankle dorsiflexion WFL. Ankle plantarflexion WFL. Strength: Right Upper Extremity: 0/5 Left Upper Extremity: Shoulder flexion 4/5. Triceps 4/5. Biceps 4/5. Residential Pest Control Technician strong. Right Lower Extremity: 0/5 Left Lower Extremity: Hip flexors 3/5. Hip abductors 3-/5. Knee flexors 4/5. Knee extensors 4/5. Ankle dorsiflexors 4-/5. Ankle plantarflexors 4-/5. Bed Mobility/Transfers: supine-sit: moderate assist, facilitated contraction of abdominals to allow safe trunk flexion onto sitting while PT assisted R LE and R UE sit-supine: moderate assist, provided cueing for L LE to hook R LE from behind but still needed help for safety sit-stand: moderate assist using STEDY lift and placement of bed at in a higher level: verbally, visually cued patient along with tactile cueing to use L UE to pull on front bar of STEDY lift as he tried to maintain a bent trunk position; facilitated trunk and hip extensor contraction to allow for a more erect posture Gait: N/A. Patient non-ambulatory. Balance: Static Sitting: Fair Dynamic Sitting: Poor Static Standing: Poor Dynamic Standing: Unable Special Tests: Mobility Limitations Standardized Measure (unchanged) [employer] AM-PAC 6 clicks Basic Mobility Inpatient Short Form: Raw Score: 12 CMS Score: 69% deficit Informed Consent/Education: Nodded head when he was asked about going to a home where he could be taken cared of. Unsure whether he will have a mechanical lift at home. Reached out to care management regarding equipment query. ASSESSMENT: Level of participation mostly limited, patient only worked with PT in 4 out of 6 sessions for this period (from 02/14/2024-02/27/2024). Patient functionally plateauing and will continue to require assist of 2 for all transfers. Consider use of mechanincal lift like the STEDY lift/sit<>stand machine for safety of home transfers. Motor apraxia, expressive/receptive aphasia, caregiver anxiety limit self efficiency and self-reliance which continue to limit consistent progress with functional mobility performance. Signs of depression continue to limit overall prognosis. Goals: Goals X1 week 1. Supine-Sit SBA NOT MET, DOWNGRADE TO CONTACT GUARD ASSIST 2. Sit-Supine SBA NOT MET, DOWNGRADE TO CONTACT GUARD ASSIST 3. Sit-Stand SBA NOT MET, DOWNGRADE TO CONTACT GUARD ASSIST 4. Stand-Sit SBA NOT MET, DOWNGRADE TO CONTACT GUARD ASSIST 5. Bed-Chair moderate assist with stand pivot technique using hemiwalker on L NOT MET, CONTINUE 6. Chair-Bed moderate assist with stand pivot technique using hemiwalker on L NOT MET, CONTINUE 7. Moderate assist with hemiwalker on L with gait on level surface for at least 15 feet without report of pain nor dyspnea NOT MET, DOWNGRADE TO 5 STEPS 8. Fair static and dynamic standing balance/tolerance NOT MET, CONTINUE Plan of Care/Treatment Plan: 3-5x/week for 2 weeks. Plan of care has been reviewed with the CLINICAL UNIT COORDINATOR providing the service under Physical Therapy direction. Continue with Physical Therapy intervention for pain management as needed, strengthening, bed mobility, transfers, gait, stairs, balance training, and use of assistive device. -Recommended Swing Bed Level I treatment plan: PT intervention 1-2x/day, 3-5 days per week. 1. NEURO RE-ED: Dynamic sitting activities at edge of bed to include reach forward and rotate trunk to R/L with AW on the R UE Static standing tolerance to increase to 5 minutes while holding onto hemiwalker working on increasing R knee ext 2. THERA EX: Supine /seated marches and LAQ with 3 lb AW L UE strengthening using 2 lb DB AP x10 3. Therapeutic Activities Instruction in techniques for bed mobility and transfers Transfer to and from bed to be up for meals using hemiwalker focusing on posture, R knee extension, and pivoting using HEMIWALKER DISCHARGE RECOMMENDATIONS: [] Home with no services [] [] Home with services [specify] [] Home with outpatient PT [] [] SNF for continued rehabilitation [] [facility] [] [] SNF versus LTC based on ability to participate and progress [] [X] SNF vs AFC home based on availability of caregiver support at home. Will require seating assessment for procurement of hemiplegic wheelchair to maximize mobility performance at home. [X] Patient will benefit from the use of a STEDY lift/stander device for safe transfer at the [facility] site to reduce fall risk. TREATMENT TIME/DATE: 48311 x 24 minutes for 2 units (11:16-12:19).
[2024-02-27 17:17] LABS: Bilirubin Negative (Negative); Blood Moderate (Negative); Clarity Clear (Clear); Glucose Negative (Negative); Ketones Negative (Negative); Leukocyte Esterase Small (Negative); Nitrite Negative (Negative); Specific Gravity 1.025 (1.005-1.025); pH 6.5 (5-8)
[2024-02-27 17:28] LABS: Bacteria Rare HPF (Negative); C & S Indicated? No; Crystals Negative HPF (Negative); Epithelial Cells Negative HPF (Negative); Mucus Trace (Negative); RBC 20-50 HPF (0-2)
[2024-02-27 22:16] VITALS: BP 145/66; PULSE 76; RESP 20; TEMP 36.8; O2SAT 94
[2024-02-27] MEDS: ARIPiprazole 5 MG TAB PO (22:24)
[2024-02-27] MEDS: Atorvastatin 40 MG TAB 80 MG PO (22:24)
[2024-02-27] MEDS: Sennosides/Docusate Sodium TAB 1 TAB PO (22:25)
[2024-02-27] MEDS: Mirtazapine 15 MG TAB 30 MG PO (22:25)
[2024-02-27] MEDS: Insulin Glargine 300 UNITS/3 ML PEN 12 UNITS SC (22:26)
[2024-02-28] MEDS: Levothyroxine 25 MCG TAB PO (05:27)
[2024-02-28] MEDS: Levothyroxine 112 MCG TAB PO (05:27)
[2024-02-28] MEDS: Potassium Citrate 1080 MG TABCR PO ×3 (09:40→17:45)
[2024-02-28] MEDS: Methadone Liquid 10 MG/ML 60 MG PO ×2 (09:40→21:32)
[2024-02-28] MEDS: Cholecalciferol (Vitamin D3) 1,000 UNIT TAB 1000 UNITS PO (09:41)
[2024-02-28] MEDS: Carvedilol 12.5 MG TAB PO (09:41)
[2024-02-28] MEDS: Lactobacillus Acidophilus CAP 1 CAP PO (09:41)
[2024-02-28] MEDS: Magnesium Oxide 400 MG TAB PO ×2 (09:41→21:34)
[2024-02-28] MEDS: Ticagrelor 90 MG TAB PO ×2 (09:41→21:34)
[2024-02-28] MEDS: Esomeprazole 40 MG CAPCR PO (09:41)
[2024-02-28] MEDS: Aspirin E.C. 81 MG TABEC PO (09:41)
[2024-02-28] MEDS: clonazePAM 0.5 MG TAB PO ×2 (09:41→21:34)
[2024-02-28] MEDS: amLODIPine 5 MG TAB PO (09:41)
[2024-02-28] MEDS: Gabapentin 800 MG TAB PO ×2 (09:42→21:33)
[2024-02-28] MEDS: Insulin Aspart 300 UNITS/3 ML PEN SC ×3 (09:42→17:45)
[2024-02-28] MEDS: Docusate Sodium 100 MG CAP 200 MG PO (09:42)
--- NOTE | 2024-02-28 11:57 | PTTR_ITS ---
PT Notes Visit Reasons: Cerebrovascular accident Physical Therapy Swing Bed Level I Treatment Note Date: 02/28/2024 Precautions: Fall. Activity as tolerated. Aphasic (global). Motor apraxic. Subjective: ARABELLA Sheikh requested assiatnce from Pt to safel transfer patient from wheelchair back to bed using STEDY lift. Patient appeared tired and wanting to get to bed right away. Objective: General Observation: Just came back from [facility] appointment. Riojas catheter in place. Mental Status: Motor apraxia and aphasia limiting ability to comprehend instructions execute movement, and express self Pain: No expression of pain throughout ROM: Right Upper Extremity: R UE hemiplegia. Tolerates passive shoulder flexion to about 30 degrees before onset of pain. Full passive elbow extension, flexion to 80 degrees before onset of pain. Left Upper Extremity: WFL Right Lower Extremity: Hip and knee motion resistant when 50%o f PROM was reached due to discomfort. Left Lower Extremity: Hip flexion WFL. Hip abduction WFL. Knee flexion WFL. Ankle dorsiflexion WFL. Ankle plantarflexion WFL. Strength: Right Upper Extremity: 0/5 Left Upper Extremity: Shoulder flexion 4/5. Triceps 4/5. Biceps 4/5. Shared Services Manager strong. Right Lower Extremity: 0/5 Left Lower Extremity: Hip flexors 3/5. Hip abductors 3-/5. Knee flexors 4/5. Knee extensors 4/5. Ankle dorsiflexors 4-/5. Ankle plantarflexors 4-/5. Bed Mobility/Transfers: supine-sit: moderate assist, facilitated contraction of abdominals to allow safe trunk flexion onto sitting while PT assisted R LE and R UE sit-supine: moderate assist, provided cueing for L LE to hook R LE from behind but still needed help for safety sit-stand: moderate assist using STEDY lift and placement of bed at in a higher level: verbally, visually cued patient along with tactile cueing to use L UE to pull on front bar of STEDY lift as he tried to maintain a bent trunk position; facilitated trunk and hip extensor contraction to allow for a more erect posture Gait: N/A. Patient non-ambulatory. Balance: Static Sitting: Fair Dynamic Sitting: Poor Static Standing: Poor Dynamic Standing: Unable Special Tests: Mobility Limitations Standardized Measure (unchanged) [facility] AM-PAC 6 clicks Basic Mobility Inpatient Short Form: Raw Score: 12 CMS Score: 69% deficit Informed Consent/Education: Nodded head when he was asked about going to a home where he could be taken cared of. Unsure whether he will have a mechanical lift at home. Reached out to care management regarding equipment query. ASSESSMENT: Provided assistance with stabilizing and supporting R upper extremity while ensuring that moderate assist was provided during sit<>stand activity from wheelchair and from STEDY lift. Verbally and visually cued patient to use good left hand to pull on front bar of lift while PT facilitated trunk extension from flexion to allow safe standing. Guided patient through safe and controlled descent onto edge of bed from STEDY lift for stand to sit transfer with assist of 2. Level of participation mostly limited, patient only worked with PT in 4 out of 6 sessions for this period (from 02/14/2024-02/27/2024). Patient functionally plateauing and will continue to require assist of 2 for all transfers. Consider use of mechanincal lift like the STEDY lift/sit<>stand machine for safety of home transfers. Motor apraxia, expressive/receptive aphasia, caregiver anxiety limit self efficiency and self-reliance which continue to limit consistent progress with functional mobility performance. Signs of depression continue to limit overall prognosis. Plan of Care/Treatment Plan: 3-5x/week for 2 weeks. Plan of care has been reviewed with the SEMICONDUCTOR MANUFACTURING TECHNICIAN providing the service under Physical Therapy direction. Continue with Physical Therapy intervention for pain management as needed, strengthening, bed mobility, transfers, gait, stairs, balance training, and use of assistive device. -Recommended Swing Bed Level I treatment plan: PT intervention 1-2x/day, 3 days per week. 1. NEURO RE-ED: Dynamic sitting activities at edge of bed to include reach forward and rotate trunk to R/L with AW on the R UE Static standing tolerance to increase to 5 minutes while holding onto hemiwalker working on increasing R knee ext 2. THERA EX: Supine /seated marches and LAQ with 3 lb AW L UE strengthening using 2 lb DB AP x10 3. Therapeutic Activities Instruction in techniques for bed mobility and transfers Transfer to and from bed to be up for meals using hemiwalker focusing on posture, R knee extension, and pivoting using HEMIWALKER DISCHARGE RECOMMENDATIONS: [] Home with no services [] [] Home with services [specify] [] Home with outpatient PT [] [] SNF for continued rehabilitation [] [facility] Care [] [] SNF versus LTC based on ability to participate and progress [] [X] SNF vs AFC home based on availability of caregiver support at home. Will require seating assessment for procurement of hemiplegic wheelchair to maximize mobility performance at home. [X] Patient will benefit from the use of a STEDY lift/stander device for safe transfer at the [facility] site to reduce fall risk. TREATMENT TIME/DATE: x 15 minutes for 1 unit (11:57-12:12).
[2024-02-28 15:42] VITALS: BP 105/64; PULSE 72; RESP 16; TEMP 35.6; O2SAT 94
[2024-02-28] MEDS: Mirtazapine 15 MG TAB 30 MG PO (21:34)
[2024-02-28] MEDS: Insulin Glargine 300 UNITS/3 ML PEN 12 UNITS SC (21:34)
[2024-02-28] MEDS: Atorvastatin 40 MG TAB 80 MG PO (21:34)
[2024-02-28] MEDS: ARIPiprazole 5 MG TAB PO (21:34)
[2024-02-28 21:42] VITALS: BP 135/52; PULSE 86; RESP 18; O2SAT 97
[2024-02-29] MEDS: Levothyroxine 25 MCG TAB PO (06:20)
[2024-02-29] MEDS: Levothyroxine 112 MCG TAB PO (06:20)
[2024-02-29 06:52] LABS: Abs Immature Grans 0.03 10^3/uL (0.0-0.06); Absolute Basophil Count 0.06 10^3/uL (0.0-0.2); Absolute Eosinophil Count 0.58 10^3/uL (0.0-0.7); Absolute Lymphocyte Count 1.75 10^3/uL (1.2-3.4); Absolute Neutrophil Count 2.68 10^3/uL (1.2-6.7); Basophils % 1.1; Eosinophils % 10.2; HCT 29.8 % (40.0-50.0); HGB 9.7 g/dL (13.5-17.5); Immature Grans % 0.5; Lymphocytes % 30.7; MCH 28.3 pg (27.0-33.0); MCHC 32.6 % (32.0-36.0); MCV 87 fL (80-95); MPV 9.4 fL (8.0-11.0); Monocytes % 10.5; Platelet Count 356 10^3/uL (130-400); RBC 3.43 10^6/uL (4.36-5.78); RDW 13.5 % (11.8-14.1); RDW-SD 42.6 fL
[2024-02-29 07:09] LABS: Anion Gap 6.3 mmol/L (3-11); BUN 29 mg/dL (7-18); CO2 27.7 mmol/L (21.0-32.0); CREATININE 1.1 mg/dL (0.70-1.30); Calcium 8.6 mg/dL (8.5-10.1); Chloride 105 mmol/L (98-107); Estimated GFR 71.32 (mL/min/1.73m2); Glucose 133 mg/dL (74-106); Sodium 139 mmol/L (136-145)
[2024-02-29 07:25] VITALS: BP 118/69; PULSE 70; RESP 18; TEMP 36.5; O2SAT 93
[2024-02-29] MEDS: Esomeprazole 40 MG CAPCR PO (08:55)
[2024-02-29] MEDS: Insulin Aspart 300 UNITS/3 ML PEN SC ×3 (08:56→17:31)
[2024-02-29] MEDS: Potassium Citrate 1080 MG TABCR PO ×3 (08:59→17:31)
[2024-02-29] MEDS: amLODIPine 5 MG TAB PO (09:00)
[2024-02-29] MEDS: Ticagrelor 90 MG TAB PO ×2 (09:02→21:30)
[2024-02-29] MEDS: Methadone Liquid 10 MG/ML 60 MG PO ×2 (09:03→21:31)
[2024-02-29] MEDS: Docusate Sodium 100 MG CAP 200 MG PO (09:03)
[2024-02-29] MEDS: Lactobacillus Acidophilus CAP 1 CAP PO (09:03)
[2024-02-29] MEDS: Gabapentin 800 MG TAB PO ×2 (09:03→21:30)
[2024-02-29] MEDS: Magnesium Oxide 400 MG TAB PO ×2 (09:03→21:30)
[2024-02-29] MEDS: Aspirin E.C. 81 MG TABEC PO (09:03)
[2024-02-29] MEDS: clonazePAM 0.5 MG TAB PO ×2 (09:03→21:30)
[2024-02-29] MEDS: Carvedilol 12.5 MG TAB PO (09:03)
[2024-02-29] MEDS: Cholecalciferol (Vitamin D3) 1,000 UNIT TAB 1000 UNITS PO (09:03)
[2024-02-29] MEDS: Atorvastatin 40 MG TAB 80 MG PO (21:30)
[2024-02-29] MEDS: Mirtazapine 15 MG TAB 30 MG PO (21:30)
[2024-02-29] MEDS: Sennosides/Docusate Sodium TAB 1 TAB PO (21:30)
[2024-02-29] MEDS: ARIPiprazole 5 MG TAB PO (21:30)
[2024-02-29] MEDS: Insulin Glargine 300 UNITS/3 ML PEN 12 UNITS SC (21:31)
[2024-03-01] MEDS: Levothyroxine 112 MCG TAB PO (06:28)
[2024-03-01] MEDS: Levothyroxine 25 MCG TAB PO (06:28)
[2024-03-01 08:13] VITALS: BP 109/68; PULSE 68; RESP 17; TEMP 35.9; O2SAT 93
[2024-03-01] MEDS: Lactobacillus Acidophilus CAP 1 CAP PO (08:35)
[2024-03-01] MEDS: Ticagrelor 90 MG TAB PO ×2 (08:36→22:21)
[2024-03-01] MEDS: clonazePAM 0.5 MG TAB PO ×2 (08:36→22:21)
[2024-03-01] MEDS: Docusate Sodium 100 MG CAP 200 MG PO (08:36)
[2024-03-01] MEDS: Gabapentin 800 MG TAB PO ×2 (08:36→22:21)
[2024-03-01] MEDS: Potassium Citrate 1080 MG TABCR PO ×3 (08:37→17:20)
[2024-03-01] MEDS: Magnesium Oxide 400 MG TAB PO ×2 (08:37→22:17)
[2024-03-01] MEDS: Cholecalciferol (Vitamin D3) 1,000 UNIT TAB 1000 UNITS PO (08:37)
[2024-03-01] MEDS: Esomeprazole 40 MG CAPCR PO (08:37)
[2024-03-01] MEDS: Carvedilol 12.5 MG TAB PO (08:38)
[2024-03-01] MEDS: amLODIPine 5 MG TAB PO (08:38)
[2024-03-01] MEDS: Aspirin E.C. 81 MG TABEC PO (08:38)
[2024-03-01] MEDS: Methadone Liquid 10 MG/ML 60 MG PO ×2 (08:39→22:16)
[2024-03-01] MEDS: Insulin Aspart 300 UNITS/3 ML PEN SC ×3 (08:45→17:20)
[2024-03-01] MEDS: Mirtazapine 15 MG TAB 30 MG PO (22:21)
[2024-03-01] MEDS: Sennosides/Docusate Sodium TAB 1 TAB PO (22:21)
[2024-03-01] MEDS: Atorvastatin 40 MG TAB 80 MG PO (22:21)
[2024-03-01] MEDS: ARIPiprazole 5 MG TAB PO (22:21)
[2024-03-01] MEDS: Insulin Glargine 300 UNITS/3 ML PEN 12 UNITS SC (22:47)
[2024-03-02] MEDS: Levothyroxine 25 MCG TAB PO (05:59)
[2024-03-02] MEDS: Levothyroxine 112 MCG TAB PO (05:59)
[2024-03-02 07:59] VITALS: BP 103/65; PULSE 69; RESP 16; TEMP 36.4; O2SAT 96
[2024-03-02] MEDS: clonazePAM 0.5 MG TAB PO ×2 (08:02→19:50)
[2024-03-02] MEDS: Esomeprazole 40 MG CAPCR PO (08:02)
[2024-03-02] MEDS: Lactobacillus Acidophilus CAP 1 CAP PO (08:02)
[2024-03-02] MEDS: Ticagrelor 90 MG TAB PO ×2 (08:03→19:50)
[2024-03-02] MEDS: amLODIPine 5 MG TAB PO (08:03)
[2024-03-02] MEDS: Gabapentin 800 MG TAB PO ×2 (08:03→19:50)
[2024-03-02] MEDS: Methadone Liquid 10 MG/ML 60 MG PO ×2 (08:03→19:49)
[2024-03-02] MEDS: Aspirin E.C. 81 MG TABEC PO (08:03)
[2024-03-02] MEDS: Magnesium Oxide 400 MG TAB PO ×2 (08:03→19:50)
[2024-03-02] MEDS: Cholecalciferol (Vitamin D3) 1,000 UNIT TAB 1000 UNITS PO (08:03)
[2024-03-02] MEDS: Potassium Citrate 1080 MG TABCR PO ×3 (08:03→17:34)
[2024-03-02] MEDS: Carvedilol 12.5 MG TAB PO (08:03)
[2024-03-02] MEDS: Docusate Sodium 100 MG CAP 200 MG PO (08:03)
[2024-03-02] MEDS: Polyethylene Glycol 3350 17 GM PACKET PO (08:57)
[2024-03-02] MEDS: Insulin Aspart 300 UNITS/3 ML PEN SC ×3 (08:57→17:34)
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
--- NOTE | 2024-03-02 11:22 | PTTR_ITS ---
PT Notes Visit Reasons: Cerebrovascular accident Physical Therapy Swing Bed Level I Treatment Note Date: 03/02/2024 Precautions: Fall. Activity as tolerated. Aphasic (global). Motor apraxic. Subjective: Nodded head when asked about standing up from edeg of bed using STEDY lift. Objective: General Observation: Just came back from [facility] appointment. Riojas catheter in place. Mental Status: Motor apraxia and aphasia limiting ability to comprehend instructions execute movement, and express self Pain: No expression of pain throughout Bed Mobility/Transfers: supine-sit: minimal assist, facilitated contraction of abdominals to allow safe trunk flexion onto sitting while PT assisted R LE and R UE sit-supine: moderate assist, provided cueing for L LE to hook R LE from behind but still needed help for safety sit-stand: moderate assist using STEDY lift and placement of bed at in a higher level: verbally and visually cued patient along with tactile cueing to use L UE to pull on front bar of STEDY lift as he tried to maintain a bent trunk position; facilitated trunk and hip extensor contraction to allow for a more erect posture; worked increasing trunk strength while seated on STEDY lift to improve dynamic sitting balance Gait: N/A. Patient non-ambulatory. Balance: Static Sitting: Fair Dynamic Sitting: Poor Static Standing: Poor Dynamic Standing: Unable ASSESSMENT: Provided assistance with stabilizing and supporting R upper extremity while ensuring that moderate assist was provided during sit<>stand activity from wheelchair and from STEDY lift. Verbally and visually cued patient to use good left hand to pull on front bar of lift while PT facilitated trunk extension from flexion to allow safe standing. Guided patient through safe and controlled descent onto edge of bed from STEDY lift for stand to sit transfer with assist of 2. Facilitated trunk and hip extensor contraction to allow for a more erect posture; worked increasing trunk strength while seated on STEDY lift to improve dynamic sitting balance. Level of participation mostly limited, patient only worked with PT in 4 out of 6 sessions for this period (from 02/14/2024-02/27/2024). Patient functionally plateauing and will continue to require assist of 2 for all transfers. Consider use of mechanincal lift like the STEDY lift/sit<>stand machine for safety of home transfers. Motor apraxia, expressive/receptive aphasia, caregiver anxiety limit self efficiency and self-reliance which continue to limit consistent progress with functional mobility performance. Signs of depression continue to limit overall prognosis. Plan of Care/Treatment Plan: 3-5x/week for 2 weeks. Plan of care has been reviewed with the P[employer]TYING [employer] CALKING SUPERVISOR providing the service under Physical Therapy direction. Continue with Physical Therapy intervention for pain management as needed, strengthening, bed mobility, transfers, gait, stairs, balance training, and use of assistive device. -Recommended Swing Bed Level I treatment plan: PT intervention 1-2x/day, 3 days per week. 1. NEURO RE-ED: Dynamic sitting activities at edge of bed to include reach forward and rotate trunk to R/L with AW on the R UE Static standing tolerance to increase to 5 minutes while holding onto hemiwalker working on increasing R knee ext 2. THERA EX: Supine /seated marches and LAQ with 3 lb AW L UE strengthening using 2 lb DB AP x10 3. Therapeutic Activities Instruction in techniques for bed mobility and transfers Transfer to and from bed to be up for meals using hemiwalker focusing on posture, R knee extension, and pivoting using HEMIWALKER DISCHARGE RECOMMENDATIONS: [] Home with no services [] [] Home with services [specify] [] Home with outpatient PT [] [] SNF for continued rehabilitation [] [facility] [] [] SNF versus LTC based on ability to participate and progress [] [X] SNF vs AFC home based on availability of caregiver support at home. Will require seating assessment for procurement of hemiplegic wheelchair to maximize mobility performance at home. [X] Patient will benefit from the use of a STEDY lift/stander device for safe transfer at the [facility] site to reduce fall risk. TREATMENT TIME/DATE: x 24 minutes for 1 unit (11:22-11:46).
--- NOTE | 2024-03-02 12:08 | PDOC.CMPRO ---
Date of service: 03/02/24 Time of Service: 12:08 Care Management Progress Note Progress Note Text Progress Note Text: S/O: Ed was sitting up in a chair when CM met with him today. He was in good spirits and got to go outside and watch the solar eclipse. He stated he has never seen one before and agreed that it was pretty cool. On Saturday CM accompanied Ed to [facility] for an intake meeting with Dr. Laya Reardon, Boiler Tender. Trudy Torres, his future home care provider, attended as well as Olga Campbell from [facility]. Dr. Reardon accepted Ed as a patient however the logistics of getting him to the clinic need to be resolved. In the past Ed was on a monthly dosing schedule at [facility]. Dr. Reardon is requiring Ed to present in person twice a week for a while, then weekly and finally, when stable, twice a month. Trudy does not have a wheelchair van so various alternatives were discussed. Ed and his soon Stephen have a wheelchair van for Ed's use but it is in the shop for repairs. Stephen informed CM that he would be happy to drive Ed to the clinic and/or loan the vehicle to Trudy for Ed's transportation when needed. Trudy and Olga are investigating other forms of wheelchair accessible transportation. When arrangements can be confirmed, Ed will discharge to Trudy's home in [place]. The hospital bed and wheelchair ordered by CM have been delivered to the home. A: Ed is a 73 year old man admitted on 10/31/23 with pneumonia . P: Ed will likely transition to an AFC ([facility]ult Family Care) home in [place] when all arrangements have been finalized. CM will continue to follow and support Ed and his discharge planning needs. SDOH(Care Management) Screening Will the Patient Participate in the Screening?: Declined to provide
[2024-03-02] MEDS: Mirtazapine 15 MG TAB 30 MG PO (19:49)
[2024-03-02] MEDS: Acetaminophen 325 MG TAB 650 MG PO (19:50)
[2024-03-02] MEDS: Atorvastatin 40 MG TAB 80 MG PO (19:50)
[2024-03-02] MEDS: ARIPiprazole 5 MG TAB PO (19:50)
[2024-03-02] MEDS: Sennosides/Docusate Sodium TAB 1 TAB PO (19:50)
[2024-03-02] MEDS: Insulin Glargine 300 UNITS/3 ML PEN 12 UNITS SC (20:04)
[2024-03-03] MEDS: Levothyroxine 25 MCG TAB PO (05:56)
[2024-03-03] MEDS: Levothyroxine 112 MCG TAB PO (05:56)
[2024-03-03 08:25] VITALS: BP 118/58; PULSE 63; RESP 17; TEMP 36.8; O2SAT 97
[2024-03-03] MEDS: Aspirin E.C. 81 MG TABEC PO (08:42)
[2024-03-03] MEDS: Docusate Sodium 100 MG CAP 200 MG PO (08:42)
[2024-03-03] MEDS: Ticagrelor 90 MG TAB PO ×2 (08:42→20:38)
[2024-03-03] MEDS: clonazePAM 0.5 MG TAB PO ×2 (08:42→20:37)
[2024-03-03] MEDS: Carvedilol 12.5 MG TAB PO (08:42)
[2024-03-03] MEDS: Potassium Citrate 1080 MG TABCR PO ×3 (08:42→16:54)
[2024-03-03] MEDS: Cholecalciferol (Vitamin D3) 1,000 UNIT TAB 1000 UNITS PO (08:43)
[2024-03-03] MEDS: Lactobacillus Acidophilus CAP 1 CAP PO (08:43)
[2024-03-03] MEDS: Esomeprazole 40 MG CAPCR PO (08:43)
[2024-03-03] MEDS: Gabapentin 800 MG TAB PO ×2 (08:43→20:37)
[2024-03-03] MEDS: Magnesium Oxide 400 MG TAB PO ×2 (08:43→20:37)
[2024-03-03] MEDS: Methadone Liquid 10 MG/ML 60 MG PO ×2 (08:44→20:38)
[2024-03-03] MEDS: Insulin Aspart 300 UNITS/3 ML PEN SC ×3 (08:50→17:56)
[2024-03-03] MEDS: amLODIPine 5 MG TAB PO (08:51)
[2024-03-03] MEDS: Atorvastatin 40 MG TAB 80 MG PO (20:37)
[2024-03-03] MEDS: ARIPiprazole 5 MG TAB PO (20:37)
[2024-03-03] MEDS: Insulin Glargine 300 UNITS/3 ML PEN 12 UNITS SC (20:38)
[2024-03-03] MEDS: Sennosides/Docusate Sodium TAB 1 TAB PO (20:38)
[2024-03-03] MEDS: Mirtazapine 15 MG TAB 30 MG PO (20:38)
[2024-03-04] MEDS: Levothyroxine 112 MCG TAB PO (06:04)
[2024-03-04] MEDS: Levothyroxine 25 MCG TAB PO (06:04)
[2024-03-04 08:00] VITALS: BP 118/61; PULSE 67; RESP 15; TEMP 36.7; O2SAT 96
[2024-03-04] MEDS: Esomeprazole 40 MG CAPCR PO (09:58)
[2024-03-04] MEDS: Lactobacillus Acidophilus CAP 1 CAP PO (09:58)
[2024-03-04] MEDS: Potassium Citrate 1080 MG TABCR PO ×3 (09:58→18:03)
[2024-03-04] MEDS: clonazePAM 0.5 MG TAB PO ×2 (09:58→19:53)
[2024-03-04] MEDS: Magnesium Oxide 400 MG TAB PO ×2 (09:59→19:54)
[2024-03-04] MEDS: Ticagrelor 90 MG TAB PO ×2 (09:59→19:53)
[2024-03-04] MEDS: Gabapentin 800 MG TAB PO ×2 (09:59→19:54)
[2024-03-04] MEDS: Cholecalciferol (Vitamin D3) 1,000 UNIT TAB 1000 UNITS PO (09:59)
[2024-03-04] MEDS: Docusate Sodium 100 MG CAP 200 MG PO (09:59)
[2024-03-04] MEDS: Aspirin E.C. 81 MG TABEC PO (09:59)
[2024-03-04] MEDS: amLODIPine 5 MG TAB PO (09:59)
[2024-03-04] MEDS: Carvedilol 12.5 MG TAB PO (09:59)
[2024-03-04] MEDS: Methadone Liquid 10 MG/ML 60 MG PO ×2 (10:00→20:28)
[2024-03-04] MEDS: Insulin Aspart 300 UNITS/3 ML PEN SC ×3 (10:00→17:29)
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
[2024-03-04] MEDS: Atorvastatin 40 MG TAB 80 MG PO (19:53)
[2024-03-04] MEDS: ARIPiprazole 5 MG TAB PO (19:53)
[2024-03-04] MEDS: Mirtazapine 15 MG TAB 30 MG PO (20:15)
[2024-03-04] MEDS: Insulin Glargine 300 UNITS/3 ML PEN 12 UNITS SC (20:18)
[2024-03-05] MEDS: Levothyroxine 25 MCG TAB PO (06:04)
[2024-03-05] MEDS: Levothyroxine 112 MCG TAB PO (06:04)
[2024-03-05] MEDS: Lactulose 20 GM/30 ML CUP PO ×3 (08:07→20:37)
[2024-03-05] MEDS: Polyethylene Glycol 3350 17 GM PACKET PO (08:07)
[2024-03-05] MEDS: Magnesium Oxide 400 MG TAB PO ×2 (08:08→20:36)
[2024-03-05] MEDS: Methadone Liquid 10 MG/ML 60 MG PO ×2 (08:08→20:40)
[2024-03-05] MEDS: Gabapentin 800 MG TAB PO ×2 (08:09→20:37)
[2024-03-05] MEDS: amLODIPine 5 MG TAB PO (08:09)
[2024-03-05] MEDS: Esomeprazole 40 MG CAPCR PO (08:09)
[2024-03-05] MEDS: Carvedilol 12.5 MG TAB PO (08:09)
[2024-03-05] MEDS: clonazePAM 0.5 MG TAB PO ×2 (08:09→20:37)
[2024-03-05] MEDS: Potassium Citrate 1080 MG TABCR PO ×3 (08:09→17:31)
[2024-03-05] MEDS: Lactobacillus Acidophilus CAP 1 CAP PO (08:09)
[2024-03-05] MEDS: Aspirin E.C. 81 MG TABEC PO (08:09)
[2024-03-05] MEDS: Ticagrelor 90 MG TAB PO ×2 (08:09→20:37)
[2024-03-05] MEDS: Cholecalciferol (Vitamin D3) 1,000 UNIT TAB 1000 UNITS PO (08:10)
[2024-03-05] MEDS: Docusate Sodium 100 MG CAP 200 MG PO (08:10)
[2024-03-05] MEDS: Insulin Aspart 300 UNITS/3 ML PEN SC ×2 (09:42→13:02)
[2024-03-05] MEDS: Lidocaine 2% Jelly 11 ML SYR UR (10:30)
--- NOTE | 2024-03-05 10:40 | PDOC.CMACT ---
Date of service: 03/05/24 Time of Service: 10:40 Care Management Activity Note Activity Note Text Activity Note Text: S/O: Ed remains in SB-1 status. The current date for transfer to his AFC home in [place] is March 25. [facility] staff do not feel they can confirm transportation for Ed from [place] to [facility], before then. Additionally, Trudy Torres, the home provider, has a planned vacation the week of March 16. On Saturday Ed was brought outside in his wheelchair to watch the eclipse, which he enjoyed. He also still enjoys watching TV and listening to music and visiting with staff. His son Stephen continues to visit regularly and often brings his son Jun to see Ed as well. A: Ed is a 73 year old man admitted on 10/31/23 with pneumonia . P: Ed will likely transition to an A[facility] ([facility]ult Family [facility]) home in [place] when all arrangements have been finalized. A tentative transfer date of March 25 has been established. CM will continue to follow and support Ed and his discharge planning needs.
[2024-03-05 15:27] VITALS: BP 110/63; PULSE 63; RESP 15; TEMP 36.4; O2SAT 95
--- NOTE | 2024-03-05 15:52 | PT.INNT ---
PT Notes Visit Reasons: Cerebrovascular accident Pt adamantly refused participating with therapy. Supervising PT informed of pt refusal.
[2024-03-05 20:29] VITALS: BP 124/64; PULSE 82; RESP 18; TEMP 36.9; O2SAT 97
[2024-03-05] MEDS: Atorvastatin 40 MG TAB 80 MG PO (20:37)
[2024-03-05] MEDS: Sennosides/Docusate Sodium TAB 1 TAB PO (20:37)
[2024-03-05] MEDS: Mirtazapine 15 MG TAB 30 MG PO (20:37)
[2024-03-05] MEDS: ARIPiprazole 5 MG TAB PO (20:37)
[2024-03-05] MEDS: Insulin Glargine 300 UNITS/3 ML PEN 12 UNITS SC (20:39)
[2024-03-06] MEDS: Levothyroxine 112 MCG TAB PO (06:20)
[2024-03-06] MEDS: Levothyroxine 25 MCG TAB PO (06:20)
[2024-03-06 08:45] VITALS: BP 123/53; PULSE 71; RESP 16; TEMP 35.6; O2SAT 94
[2024-03-06] MEDS: Gabapentin 800 MG TAB PO ×2 (08:49→20:25)
[2024-03-06] MEDS: amLODIPine 5 MG TAB PO (08:50)
[2024-03-06] MEDS: Lactobacillus Acidophilus CAP 1 CAP PO (08:50)
[2024-03-06] MEDS: Aspirin E.C. 81 MG TABEC PO (08:50)
[2024-03-06] MEDS: clonazePAM 0.5 MG TAB PO ×2 (08:50→20:25)
[2024-03-06] MEDS: Magnesium Oxide 400 MG TAB PO ×2 (08:50→20:25)
[2024-03-06] MEDS: Cholecalciferol (Vitamin D3) 1,000 UNIT TAB 1000 UNITS PO (08:50)
[2024-03-06] MEDS: Carvedilol 12.5 MG TAB PO (08:50)
[2024-03-06] MEDS: Potassium Citrate 1080 MG TABCR PO ×3 (08:51→17:18)
[2024-03-06] MEDS: Polyethylene Glycol 3350 17 GM PACKET PO (08:51)
[2024-03-06] MEDS: Ticagrelor 90 MG TAB PO ×2 (08:51→20:25)
[2024-03-06] MEDS: Insulin Aspart 300 UNITS/3 ML PEN SC ×3 (09:00→17:21)
[2024-03-06] MEDS: Docusate Sodium 100 MG CAP 200 MG PO (09:00)
[2024-03-06] MEDS: Esomeprazole 40 MG CAPCR PO (09:00)
[2024-03-06] MEDS: Methadone Liquid 10 MG/ML 60 MG PO ×2 (09:02→20:25)
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
[2024-03-06 20:24] VITALS: BP 136/64; PULSE 72; RESP 18; TEMP 36.8; O2SAT 95
[2024-03-06] MEDS: Atorvastatin 40 MG TAB 80 MG PO (20:24)
[2024-03-06] MEDS: Sennosides/Docusate Sodium TAB 1 TAB PO (20:25)
[2024-03-06] MEDS: ARIPiprazole 5 MG TAB PO (20:25)
[2024-03-06] MEDS: Mirtazapine 15 MG TAB 30 MG PO (20:25)
[2024-03-06] MEDS: Insulin Glargine 300 UNITS/3 ML PEN 12 UNITS SC (21:26)
[2024-03-07] MEDS: Levothyroxine 25 MCG TAB PO (06:12)
[2024-03-07] MEDS: Levothyroxine 112 MCG TAB PO (06:12)
[2024-03-07 06:58] LABS: Anion Gap 6.7 mmol/L (3-11); BUN 38 mg/dL (7-18); CO2 29.3 mmol/L (21.0-32.0); Calcium 8.8 mg/dL (8.5-10.1); Chloride 111 mmol/L (98-107); Estimated GFR 79.97 (mL/min/1.73m2); Glucose 122 mg/dL (74-106); Potassium 4.2 mmol/L (3.5-5.1); Sodium 147 mmol/L (136-145)
[2024-03-07] MEDS: Ticagrelor 90 MG TAB PO ×2 (07:53→19:30)
[2024-03-07] MEDS: Gabapentin 800 MG TAB PO ×2 (07:53→19:31)
[2024-03-07] MEDS: Potassium Citrate 1080 MG TABCR PO ×2 (07:53→17:40)
[2024-03-07] MEDS: clonazePAM 0.5 MG TAB PO ×2 (07:53→19:30)
[2024-03-07] MEDS: amLODIPine 5 MG TAB PO (07:53)
[2024-03-07] MEDS: Carvedilol 12.5 MG TAB PO (07:53)
[2024-03-07] MEDS: Cholecalciferol (Vitamin D3) 1,000 UNIT TAB 1000 UNITS PO (07:54)
[2024-03-07] MEDS: Aspirin E.C. 81 MG TABEC PO (07:54)
[2024-03-07] MEDS: Lactobacillus Acidophilus CAP 1 CAP PO (07:54)
[2024-03-07] MEDS: Magnesium Oxide 400 MG TAB PO ×2 (07:54→19:30)
[2024-03-07] MEDS: Esomeprazole 40 MG CAPCR PO (07:54)
[2024-03-07] MEDS: Docusate Sodium 100 MG CAP 200 MG PO (07:54)
[2024-03-07] MEDS: Methadone Liquid 10 MG/ML 60 MG PO ×2 (07:59→19:31)
[2024-03-07 08:00] VITALS: BP 110/53; PULSE 64; RESP 18; TEMP 35.9; O2SAT 94
[2024-03-07] MEDS: Insulin Aspart 300 UNITS/3 ML PEN SC ×3 (09:27→17:40)
--- NOTE | 2024-03-07 13:24 | NUR.NOTE ---
231 Federico Darwin does not feel well, lung sound a little crackle, breathing is wheeze. charge nurse (Lazara) has notified and asked doctor to check on him
--- NOTE | 2024-03-07 13:46 | RESPIRATORY ---
Called by Nursing to assess patient. Sp02 95% on room air. No distress noted. Rhonchi and crackles heard on auscultation. Patient not coughing anything up at this time. Nursing notified.
[2024-03-07 19:28] VITALS: BP 120/62; PULSE 84; RESP 20; TEMP 36.8; O2SAT 95
[2024-03-07] MEDS: ARIPiprazole 5 MG TAB PO (19:30)
[2024-03-07] MEDS: Sennosides/Docusate Sodium TAB 1 TAB PO (19:30)
[2024-03-07] MEDS: Atorvastatin 40 MG TAB 80 MG PO (19:31)
[2024-03-07] MEDS: Mirtazapine 15 MG TAB 30 MG PO (19:34)
[2024-03-07] MEDS: Insulin Glargine 300 UNITS/3 ML PEN 12 UNITS SC (21:51)
[2024-03-08] MEDS: Levothyroxine 25 MCG TAB PO (06:46)
[2024-03-08] MEDS: Levothyroxine 112 MCG TAB PO (06:46)
[2024-03-08] MEDS: Docusate Sodium 100 MG CAP 200 MG PO (08:51)
[2024-03-08] MEDS: Polyethylene Glycol 3350 17 GM PACKET PO (08:51)
[2024-03-08] MEDS: Potassium Citrate 1080 MG TABCR PO ×3 (08:51→17:13)
[2024-03-08] MEDS: Esomeprazole 40 MG CAPCR PO (08:51)
[2024-03-08] MEDS: Ticagrelor 90 MG TAB PO ×2 (08:51→20:45)
[2024-03-08] MEDS: clonazePAM 0.5 MG TAB PO ×2 (08:51→20:46)
[2024-03-08] MEDS: Magnesium Oxide 400 MG TAB PO ×2 (08:52→20:45)
[2024-03-08] MEDS: Gabapentin 800 MG TAB PO ×2 (08:52→20:46)
[2024-03-08] MEDS: Lactobacillus Acidophilus CAP 1 CAP PO (08:52)
[2024-03-08] MEDS: Cholecalciferol (Vitamin D3) 1,000 UNIT TAB 1000 UNITS PO (08:52)
[2024-03-08] MEDS: amLODIPine 5 MG TAB PO (08:52)
[2024-03-08] MEDS: Aspirin E.C. 81 MG TABEC PO (08:52)
[2024-03-08] MEDS: Carvedilol 12.5 MG TAB PO (08:52)
[2024-03-08] MEDS: Methadone Liquid 10 MG/ML 60 MG PO ×2 (08:53→20:46)
[2024-03-08 12:02] VITALS: BP 120/86; PULSE 69; RESP 18; TEMP 36.1; O2SAT 94
[2024-03-08] MEDS: Insulin Aspart 300 UNITS/3 ML PEN SC (12:36)
[2024-03-08] MEDS: ARIPiprazole 5 MG TAB PO (20:45)
[2024-03-08] MEDS: Sennosides/Docusate Sodium TAB 1 TAB PO (20:45)
[2024-03-08] MEDS: Mirtazapine 15 MG TAB 30 MG PO (20:45)
[2024-03-08] MEDS: Atorvastatin 40 MG TAB 80 MG PO (20:46)
[2024-03-08] MEDS: Insulin Glargine 300 UNITS/3 ML PEN 12 UNITS SC (20:52)
[2024-03-09] MEDS: Levothyroxine 25 MCG TAB PO (06:21)
[2024-03-09] MEDS: Levothyroxine 112 MCG TAB PO (06:21)
[2024-03-09] MEDS: Potassium Citrate 1080 MG TABCR PO ×2 (08:06→17:27)
[2024-03-09] MEDS: Polyethylene Glycol 3350 17 GM PACKET PO (08:06)
[2024-03-09] MEDS: clonazePAM 0.5 MG TAB PO ×2 (08:06→20:08)
[2024-03-09] MEDS: Ticagrelor 90 MG TAB PO ×2 (08:06→20:08)
[2024-03-09] MEDS: Carvedilol 12.5 MG TAB PO (08:07)
[2024-03-09] MEDS: Aspirin E.C. 81 MG TABEC PO (08:07)
[2024-03-09] MEDS: Docusate Sodium 100 MG CAP 200 MG PO (08:08)
[2024-03-09] MEDS: Gabapentin 800 MG TAB PO ×2 (08:08→20:08)
[2024-03-09] MEDS: Methadone Liquid 10 MG/ML 60 MG PO ×2 (08:09→20:08)
[2024-03-09] MEDS: Lactobacillus Acidophilus CAP 1 CAP PO (08:09)
[2024-03-09] MEDS: Esomeprazole 40 MG CAPCR PO (08:09)
[2024-03-09] MEDS: Magnesium Oxide 400 MG TAB PO ×2 (08:09→20:08)
[2024-03-09] MEDS: amLODIPine 5 MG TAB PO (08:09)
[2024-03-09] MEDS: Cholecalciferol (Vitamin D3) 1,000 UNIT TAB 1000 UNITS PO (08:09)
[2024-03-09 08:28] VITALS: BP 150/82; PULSE 100; RESP 19; TEMP 36.4; O2SAT 97
[2024-03-09] MEDS: Lidocaine 2% Jelly 11 ML SYR UR (14:26)
[2024-03-09] MEDS: Mirtazapine 15 MG TAB 30 MG PO (20:08)
[2024-03-09] MEDS: Insulin Glargine 300 UNITS/3 ML PEN 12 UNITS SC (20:08)
[2024-03-09] MEDS: Sennosides/Docusate Sodium TAB 1 TAB PO (20:08)
[2024-03-09] MEDS: Atorvastatin 40 MG TAB 80 MG PO (20:08)
[2024-03-09] MEDS: ARIPiprazole 5 MG TAB PO (20:08)
[2024-03-10 00:43] VITALS: BP 141/51; PULSE 83; RESP 18; TEMP 36.3; O2SAT 92
[2024-03-10 01:11] LABS: Bilirubin Small (Negative); Blood Large (Negative); Glucose 100 mg/dL (Negative); Ketones Trace mg/dL (Negative); Leukocyte Esterase Large (Negative); Nitrite Positive (Negative); Specific Gravity 1.025 (1.005-1.025)
[2024-03-10 01:12] LABS: Clarity Cloudy (Clear)
[2024-03-10 01:16] LABS: C & S Indicated? C&S Done As Ordered; RBC >50 HPF (0-2)
[2024-03-10] MEDS: Levothyroxine 25 MCG TAB PO (05:05)
[2024-03-10] MEDS: Levothyroxine 112 MCG TAB PO (05:05)
[2024-03-10 07:52] VITALS: BP 117/65; PULSE 92; RESP 14; TEMP 36.3; O2SAT 93
[2024-03-10] MEDS: Potassium Citrate 1080 MG TABCR PO ×2 (08:19→12:47)
[2024-03-10] MEDS: Ticagrelor 90 MG TAB PO ×2 (08:19→20:32)
[2024-03-10] MEDS: Lactobacillus Acidophilus CAP 1 CAP PO (08:19)
[2024-03-10] MEDS: Docusate Sodium 100 MG CAP 200 MG PO (08:20)
[2024-03-10] MEDS: Cholecalciferol (Vitamin D3) 1,000 UNIT TAB 1000 UNITS PO (08:20)
[2024-03-10] MEDS: Aspirin E.C. 81 MG TABEC PO (08:20)
[2024-03-10] MEDS: Esomeprazole 40 MG CAPCR PO (08:20)
[2024-03-10] MEDS: Magnesium Oxide 400 MG TAB PO ×2 (08:20→20:32)
[2024-03-10] MEDS: clonazePAM 0.5 MG TAB PO ×2 (08:20→20:31)
[2024-03-10] MEDS: Gabapentin 800 MG TAB PO ×2 (08:20→20:31)
[2024-03-10] MEDS: Carvedilol 12.5 MG TAB PO (08:20)
[2024-03-10] MEDS: amLODIPine 5 MG TAB PO (08:20)
[2024-03-10] MEDS: Methadone Liquid 10 MG/ML 60 MG PO ×2 (08:21→20:27)
[2024-03-10] MEDS: Insulin Aspart 300 UNITS/3 ML PEN SC ×2 (08:27→18:15)
--- NOTE | 2024-03-10 09:34 | CMACTNOTE_ITS ---
Date of service: 03/09/24 Time of Service: 09:34 Care Management Activity Note Activity Note Text Activity Note Text: S/O: Ed was transitioned to SB-2 status today as he is no longer willing to work with PT. He is still waiting for placement in his AFC home in [place]. Transportation for Ed to go back and forth to [facility] twice a week for his methadone dosing has not been confirmed. The tentative move date remains March 25. Ed has been more irritable lately, per nursing staff. He has expressed frustration to CM about the long delay in getting to his new home. A: Ed is a 73 year old man admitted on 10/31/23 with pneumonia . P: Ed will likely transition to an [facility] ([facility]ult Family [facility]) home in [place] when all arrangements have been finalized. A tentative transfer date of March 25 has been established. CM will continue to follow and support Ed and his discharge planning needs.
[2024-03-10 12:55] VITALS: O2SAT 92
[2024-03-10 13:29] VITALS: O2SAT 91
[2024-03-10] MEDS: Insulin Glargine 300 UNITS/3 ML PEN 12 UNITS SC (20:32)
[2024-03-10] MEDS: Mirtazapine 15 MG TAB 30 MG PO (20:32)
[2024-03-10] MEDS: ARIPiprazole 5 MG TAB PO (20:33)
[2024-03-10] MEDS: Sennosides/Docusate Sodium TAB 1 TAB PO (20:33)
[2024-03-10] MEDS: Atorvastatin 40 MG TAB 80 MG PO (20:33)
[2024-03-10 21:00] VITALS: PULSE 93; O2SAT 95
[2024-03-10 23:58] LABS: Anion Gap 7.7 mmol/L (3-11); BUN 60 mg/dL (7-18); CO2 28.3 mmol/L (21.0-32.0); CREATININE 1.2 mg/dL (0.70-1.30); Calcium 8.9 mg/dL (8.5-10.1); Chloride 109 mmol/L (98-107); Estimated GFR 64.25 (mL/min/1.73m2); Glucose 420 mg/dL (74-106); Potassium 4.5 mmol/L (3.5-5.1); Sodium 145 mmol/L (136-145)
--- NOTE | 2024-03-11 | DI.RAD_ITS ---
Exam(s) XR PORTABLE CHEST AP EXAM: XR PORTABLE CHEST AP CLINICAL HISTORY: hypoxia TECHNIQUE: 2D digital imaging was performed of the chest. Two images were obtained. AP views were obtained. COMPARISON: CR XR CHEST 2V PA LATERAL from 01/03/[address] ABDOMEN PELVIS WO from 02/18/2024 FINDINGS: MEDIASTINUM: Normal. HEART: Normal. PULMONARY VASCULATURE: Normal. LUNGS: There is an infiltrate seen in the left lower lobe. It appears progressed since the prior exa mination. There is a smaller infiltrate seen in the right lower lobe. PLEURAL SPACE: No pleural effusion or pneumothorax. BONE:Within normal limits for the patient's age. OTHER FINDINGS:Normal. IMPRESSION: Bilateral lower lobe infiltrates, left greater than right. There has been progression of the infiltr ate particularly in the left lower lobe since 02/18/2024. The findings are suspicious for pneumonia. DATA REPOSITORY: RADIATION DOSE DELIVERED:
[2024-03-11] MEDS: Insulin Aspart 300 UNITS/3 ML PEN 6 UNITS SC (00:33)
[2024-03-11] MEDS: Levothyroxine 25 MCG TAB PO (06:37)
[2024-03-11] MEDS: Esomeprazole 40 MG CAPCR PO (06:37)
[2024-03-11] MEDS: Levothyroxine 112 MCG TAB PO (06:37)
[2024-03-11 08:21] VITALS: BP 122/69; PULSE 89; RESP 16; TEMP 36.6; O2SAT 90
[2024-03-11] MEDS: Gabapentin 800 MG TAB PO ×2 (08:30→23:06)
[2024-03-11] MEDS: Potassium Citrate 1080 MG TABCR PO (08:30)
[2024-03-11] MEDS: Cholecalciferol (Vitamin D3) 1,000 UNIT TAB 1000 UNITS PO (08:30)
[2024-03-11] MEDS: Ticagrelor 90 MG TAB PO ×2 (08:30→23:05)
[2024-03-11] MEDS: Docusate Sodium 100 MG CAP 200 MG PO (08:31)
[2024-03-11] MEDS: clonazePAM 0.5 MG TAB PO ×2 (08:31→23:05)
[2024-03-11] MEDS: Aspirin E.C. 81 MG TABEC PO (08:31)
[2024-03-11] MEDS: Carvedilol 12.5 MG TAB PO (08:31)
[2024-03-11] MEDS: Magnesium Oxide 400 MG TAB PO ×2 (08:31→23:04)
[2024-03-11] MEDS: amLODIPine 5 MG TAB PO (08:31)
[2024-03-11] MEDS: Lactobacillus Acidophilus CAP 1 CAP PO (08:31)
[2024-03-11] MEDS: Methadone Liquid 10 MG/ML 60 MG PO ×2 (08:34→22:01)
[2024-03-11] MEDS: Insulin Aspart 300 UNITS/3 ML PEN SC ×3 (09:29→17:34)
[2024-03-11 12:30] VITALS: O2SAT 91
[2024-03-11 14:29] VITALS: BP 121/64; PULSE 85; RESP 14; TEMP 36; O2SAT 91
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
--- NOTE | 2024-03-11 14:50 | PDOC.CMACT ---
Date of service: 03/11/24 Time of Service: 14:50 Care Management Activity Note Activity Note Text Activity Note Text: S/O: Ed is now in SB-2 status. He is awaiting placement in his [facility] home in [place]. Ed has had visits this week from music therapy, pet therapy with a therapy dog and a visiting band master. He really seemed to enjoy all 3 visits. The band master informed CM that she offered to return on for another visit and Ed indicated that he would like that. A: Ed is a 73 year old man admitted on 10/31/23 with pneumonia . P: Ed will likely transition to an [facility] ([facility] Family [facility]) home in [place] when all arrangements have been finalized. A tentative transfer date of March 25 has been established. CM will continue to follow and support Ed and his discharge planning needs.
[2024-03-11 15:30] LABS: ALT 29 U/L (16-63); AST 23 U/L (15-37); Albumin 2.3 g/dL (3.4-5.0); Alkaline Phosphatase 190 U/L (46-116); Anion Gap 9.1 mmol/L (3-11); BUN 66 mg/dL (7-18); Bilirubin, Total 0.4 mg/dL (0.2-1.0); CO2 27.9 mmol/L (21.0-32.0); CREATININE 1.2 mg/dL (0.70-1.30); Chloride 110 mmol/L (98-107); Estimated GFR 64.25 (mL/min/1.73m2); Glucose 306 mg/dL (74-106); Potassium 4.6 mmol/L (3.5-5.1); Sodium 147 mmol/L (136-145); Total Protein 7.8 g/dL (6.4-8.2)
[2024-03-11 15:49] LABS: Procalcitonin 0.2 ng/mL
[2024-03-11 16:08] LABS: Abs Immature Grans 0.03 10^3/uL (0.0-0.06); Absolute Basophil Count 0.05 10^3/uL (0.0-0.2); Absolute Eosinophil Count 0.01 10^3/uL (0.0-0.7); Absolute Lymphocyte Count 0.97 10^3/uL (1.2-3.4); Absolute Monocyte Count 1.15 10^3/uL (0.1-0.8); Absolute Neutrophil Count 9.09 10^3/uL (1.2-6.7); Basophils % 0.4; Eosinophils % 0.1; HCT 33.5 % (40.0-50.0); HGB 10.6 g/dL (13.5-17.5); Immature Grans % 0.3; Lymphocytes % 8.6; MCH 28.7 pg (27.0-33.0); MCHC 31.6 % (32.0-36.0); MCV 91 fL (80-95); MPV 10.4 fL (8.0-11.0); Monocytes % 10.2; Neutrophils % 80.4; Platelet Count 339 10^3/uL (130-400); RBC 3.69 10^6/uL (4.36-5.78); RDW 14.6 % (11.8-14.1); RDW-SD 48.4 fL
[2024-03-11] MEDS: Normal Saline 1,000 ML 1000 ML IV (16:22)
--- NOTE | 2024-03-11 19:02 | NUR.NOTE ---
Nursing Note: hypoxic 82 % on RA, placed on 3L with slow rebound to 90-91%. bilateral coarse crackles noted, weak, SOB while eating meals, pale MD notified, new order obtained for CXR, IV BOLUS, LABS, Flu swab. poor appetite, denies pain, weak non expectorating cough.
[2024-03-11 21:30] VITALS: PULSE 95; RESP 20; TEMP 36.3; O2SAT 92
[2024-03-11] MEDS: Insulin Glargine 300 UNITS/3 ML PEN 12 UNITS SC (23:03)
[2024-03-11] MEDS: Atorvastatin 40 MG TAB 80 MG PO (23:04)
[2024-03-11] MEDS: Sennosides/Docusate Sodium TAB 1 TAB PO (23:04)
[2024-03-11] MEDS: ARIPiprazole 5 MG TAB PO (23:05)
[2024-03-11] MEDS: Mirtazapine 15 MG TAB 30 MG PO (23:05)
[2024-03-11 23:15] VITALS: PULSE 95; O2SAT 92
[2024-03-12 01:27] VITALS: PULSE 88; RESP 16; O2SAT 80
[2024-03-12 01:30] VITALS: PULSE 92; RESP 14; O2SAT 84
[2024-03-12 01:42] VITALS: PULSE 86; O2SAT 88
[2024-03-12 01:54] VITALS: BP 112/55; PULSE 84; RESP 20; TEMP 36.1; O2SAT 91
--- NOTE | 2024-03-12 02:10 | NUR.NOTE ---
Nursing Note: At 0200, RN attempted to call pt family to notify of change in condition and impending transfer to ICU. No answer from [facility] daughter Alejandra Caballero or son Susie Caballero. Voicemails left requesting return call to nursing desk.
[2024-03-12 02:44] LABS: COVID-19 PCR Negative (Negative); Influenza A PCR Negative (Negative); Influenza B PCR Negative (Negative); RSV PCR Negative (Negative)
--- NOTE | 2024-03-12 02:45 | NUR.NOTE ---
Nursing Note: Per Dr. Boswell, pt to be changed from swing bed to ICU level of care d/t deterioration. Pt transferred via bed with oxymask @ 10 L on portable o2 tank to ICU bed 222 at 0235 Bedside report given to Maricruz Angel RN. Assisted ICU nurses to transfer pt onto ICU bed and cheese production supervisor to monitors.
[2024-03-12 02:46] LABS: Source Nasopharynx
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
--- NOTE | 2024-03-12 14:47 | PDOC.CMPRO ---
Date of service: 03/12/24 Time of Service: 14:47 Care Management Progress Note Progress Note Text Progress Note Text: S/O:During the night Ed had acute decompensation with worsening hypoxemia and was found to have bilateral pneumonia per Dr. Boswell. He was discharged from Swing bed status and admitted to the ICU as an acute inpatient. He was started on antibiotics for the pneumonia and vasopressors for blood pressure support. He was also placed on oxygen with an Oxymask at 5L/min. Ed was sitting up in bed when CM met with him. he was alert and indicated he knew he had pneumonia. He was audibly congested and was very pale. Ed's norepinephrine drip was discontinued shortly before 1 pm and his blood pressure has remained stable with SBP in 120s-130s. A: Ed is a 73 year old man admitted on 10/31/23 with pneumonia . P: Ed will likely transition to an A[facility] ([facility]ult Family [facility]) home in [place] when all arrangements have been finalized. CM will continue to follow and support Ed and his discharge planning needs. SDOH(Care Management) Screening Will the Patient Participate in the Screening?: Declined to provide
== END 2024-03-09 11:54 | disposition other institution (70) | DRG 56 ==
PROVIDERS: Family Medicine; Internal Medicine; Nurse Practitioner Acute Care; Nurse Practitioner Family; Admitting Provider Internal Medicine; PCP Nurse Practitioner Family; Visit Provider Internal Medicine
DX: J15.211 Pneumonia due to Methicillin susceptible Staphylococcus aureus; J69.0 Pneumonitis due to inhalation of food and vomit; J96.01 Acute respiratory failure with hypoxia; F11.20 Opioid dependence, uncomplicated; N39.0 Urinary tract infection, site not specified; N13.8 Other obstructive and reflux uropathy; E87.0 Hyperosmolality and hypernatremia; Z16.22 Resistance to vancomycin related antibiotics; J44.0 Chronic obstructive pulmonary disease with (acute) lower respiratory infection; Y95 Nosocomial condition; R45.1 Restlessness and agitation; E11.42 Type 2 diabetes mellitus with diabetic polyneuropathy; Z79.4 Long term (current) use of insulin; Z51.5 Encounter for palliative care; E03.9 Hypothyroidism, unspecified; N40.1 Benign prostatic hyperplasia with lower urinary tract symptoms; R33.8 Other retention of urine; T74 Adult and child abuse, neglect and other maltreatment, confirmed; I69.351 Hemiplegia and hemiparesis following cerebral infarction affecting right dominant side; R63.0 Anorexia; R62.7 Adult failure to thrive; M79.632 Pain in left forearm; M79.89 Other specified soft tissue disorders; F41.1 Generalized anxiety disorder; N21.0 Calculus in bladder; B96.1 Klebsiella pneumoniae [K. pneumoniae] as the cause of diseases classified elsewhere; B95.2 Enterococcus as the cause of diseases classified elsewhere; F19.11 Other psychoactive substance abuse, in remission; F17.290 Nicotine dependence, other tobacco product, uncomplicated; I69.391 Dysphagia following cerebral infarction; R13.10 Dysphagia, unspecified; I69.320 Aphasia following cerebral infarction; B95.61 Methicillin susceptible Staphylococcus aureus infection as the cause of diseases classified elsewhere; R11.0 Nausea; B96.4 Proteus (mirabilis) (morganii) as the cause of diseases classified elsewhere; N31.8 Other neuromuscular dysfunction of bladder
CPT/HCPCS: 51701; 00123; 36415; 80048; 80053; 82805; 84145; 85027; 87040; 87077; 87637; 87641; 92526; 92610; 95819; 97110; 97112; 97140; 97163; 97166; 97530; 97535; 99305; 99306; 99308; 99309; J1650; 70450; 71045; 71046; 74176; 81003; 81015; 82270; 82728; 83540; 83550; 83735; 83880; 84153; 84484; 85025; 87070; 87086; 87186; 87205; 92507; 92523; 93005; 93010; 94667; 94668; 99232; 99310; J0696; J1815; J3490; J7613

== ENCOUNTER → 2023-11-26 07:55 | Outpatient (BNVA) | payer MEDICARE, MEDICAID, SELFPAY | PROVIDERS: PCP Nurse Practitioner Family; Referring Provider Nurse Practitioner Family; Visit Provider Psychiatry & Neurology Neurology ==

== ENCOUNTER → 2023-12-23 11:21 | Outpatient (BNVA) | payer MEDICARE, MEDICAID, SELFPAY | PROVIDERS: PCP Nurse Practitioner Family; Referring Provider Nurse Practitioner Family; Visit Provider Urology ==

== ENCOUNTER → 2024-02-18 12:09 | Outpatient (BNVA) | payer MEDICARE, MEDICAID, SELFPAY | PROVIDERS: PCP Nurse Practitioner Family; Referring Provider Nurse Practitioner Family; Visit Provider Urology ==

== ENCOUNTER 2024-03-09 11:55 | Inpatient (IN) | payer MEDICARE, MEDICAID, SELFPAY | END 2024-03-12 02:58 | disposition short-term general hospital (02) | DRG 193 | LOC: MS 03-13 16:17 | PROVIDERS: Admitting Provider Internal Medicine; PCP Nurse Practitioner Family; Visit Provider Internal Medicine | DX: J18.9 Pneumonia, unspecified organism (principal); J96.01 Acute respiratory failure with hypoxia; I69.351 Hemiplegia and hemiparesis following cerebral infarction affecting right dominant side; F11.20 Opioid dependence, uncomplicated; N39.0 Urinary tract infection, site not specified; F05 Delirium due to known physiological condition; N13.8 Other obstructive and reflux uropathy; Y95 Nosocomial condition; F19.11 Other psychoactive substance abuse, in remission; T74 Adult and child abuse, neglect and other maltreatment, confirmed; Z66 Do not resuscitate; R62.7 Adult failure to thrive; R63.0 Anorexia; Z79.4 Long term (current) use of insulin; Z74.01 Bed confinement status; I69.320 Aphasia following cerebral infarction; R33.9 Retention of urine, unspecified; I69.391 Dysphagia following cerebral infarction; R13.10 Dysphagia, unspecified; N40.1 Benign prostatic hyperplasia with lower urinary tract symptoms; E11.42 Type 2 diabetes mellitus with diabetic polyneuropathy; E11.65 Type 2 diabetes mellitus with hyperglycemia; Z89.411 Acquired absence of right great toe; F41.9 Anxiety disorder, unspecified; J45.909 Unspecified asthma, uncomplicated; E03.9 Hypothyroidism, unspecified; E78.5 Hyperlipidemia, unspecified; E87.6 Hypokalemia; F17.290 Nicotine dependence, other tobacco product, uncomplicated | CPT/HCPCS: 00123; 36415; 80048; 80053; 84145; 87040; 87077; 87637; 99309; 99316; 71045; 81003; 81015; 85025; 87086; 87186; 94668; J3490 ==

== ENCOUNTER 2024-03-12 03:20 | Inpatient (IN) | payer MEDICARE, MEDICAID, SELFPAY ==
[2024-03-12] VITALS (117 sets, daily range): BP systolic 78–144; BP diastolic 43–71; PULSE 60–101; RESP 10–34; TEMP 36.5–37.4; O2SAT 86–96
--- NOTE | 2024-03-12 | DI.RAD_ITS ---
Exam(s) XR PORTABLE CHEST AP EXAM: XR PORTABLE CHEST AP CLINICAL HISTORY: Acute hypoxemia with pneumonia TECHNIQUE: 2D digital imaging was performed of the chest. One image was obtained. An AP view was ob tained. COMPARISON: CR XR CHEST 2V PA LATERAL from 01/03/2024 CR XR PORTABLE CHEST AP from 03/11/2024 FINDINGS: MEDIASTINUM: Normal. HEART: Normal. PULMONARY VASCULATURE: Normal. LUNGS: There is continued worsening of the infiltrates in the lower lobes. The progression is most a ppreciated in the right lower lobe. PLEURAL SPACE: No pleural effusion or pneumothorax. BONE:Within normal limits for the patient's age. Old left fracture deformities are seen. OTHER FINDINGS:Normal. IMPRESSION: Progression of the infiltrates predominantly involving the lower lobes. The findings suggest worseni ng pneumonia/aspiration. DATA REPOSITORY: RADIATION DOSE DELIVERED:
--- NOTE | 2024-03-12 03:14 | W.PM.HP.N ---
Date of service: 03/12/24 Time of Service: 03:15 Assessment and Plan Assessment and plan (1) Septic shock: Start date: 03/12/24 Status: Acute Assessment and plan: This is a 74-year-old gentleman with a prolonged hospital stay now appears to have progression of bilateral pneumonia worse on the left and right with clinical findings supporting this. He has responded to IV fluid resuscitation having received more than 30 cc/kg with normal saline and has ongoing normal saline at 150 cc an hour with his MAP now stabilizing with addition of norepinephrine infusion. He is on broad-spectrum antibiotics to cover possible UTI with urinary outlet obstruction and Riojas catheter placed as well as hospital-acquired pneumonia now confirmed on x-ray. He is having increasing oxygen needs and oxygen supplementation with BiPAP use temporarily and high flow oxygen to be used as needed. The patient is a full code and this will be respected. I did update his family: His daughter in the customer account specialist after patient stabilized. (2) Acute hypoxic respiratory failure: Start date: 03/12/24 Status: Acute Assessment and plan: Continue increased oxygen supplementation with BiPAP as needed. Patient is not retaining CO2 as he has in the past. There was some question of opioid buildup with the patient chronically on methadone and this still should be addressed with methadone and hydrocodone to be held for now. Once he awakens we can reconsider methadone treatment with weaning dose if possible to minimize sedation. (3) Bilateral pneumonia: Start date: 03/12/24 Status: Acute Assessment and plan: Progressive left more than right with patient on vancomycin and cefepime. Follow-up imaging as needed and continue oxygen supplementation. Qualifiers: Lung location: lower lobe of lung Pneumonia type: due to unspecified organism Qualified Code(s): J18.9 - Pneumonia, unspecified organism (4) UTI (urinary tract infection): Status: Acute Assessment and plan: Urine culture is pending but patient having Riojas catheter for bladder outlet obstruction and urology is seeing as needed. Adjust antibiotic therapy to pathogen if culture is positive. Patient also has blood cultures pending. He was on Augmentin which has been discontinued. Cefepime should cover most pathogens in the urine. Qualifiers: Hematuria presence: with hematuria Urinary tract infection type: acute cystitis Qualified Code(s): N30.01 - Acute cystitis with hematuria (5) Benign prostatic hyperplasia with urinary retention: Status: Chronic Assessment and plan: Continue Riojas catheter for urinary retention with urology consultation ongoing. (6) Type 2 diabetes mellitus: Status: Chronic Assessment and plan: Patient has had less intake and his basal insulin will be held with continued before meals and bedtime (or every 6 hours if patient is not waking up to eat) glucometer measurement coverage using moderate sliding scale of short acting insulin. 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 He should be weaned to the lowest dose of methadone possible to maintain opioid dependence treatment. He also has chronic pain. 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 Ongoing PT and OT with speech therapy to reevaluate swallow with patient's pneumonia. He is at high risk for aspiration. (9) Hyperlipidemia: Status: Chronic Assessment and plan: Continue statin therapy. Qualifiers: Hyperlipidemia type: mixed hyperlipidemia Qualified Code(s): E78.2 - Mixed hyperlipidemia (10) Hypothyroidism (acquired): Status: Chronic Assessment and plan: Continue supplementation without change. (11) Failure to thrive in adult: Status: Chronic Assessment and plan: Patient needs continued level to care at least once he is out of his acute decompensation. Placement is ongoing and family appears to be engaged with this plan especially the daughter though there is still some family dysfunction. His CODE STATUS needs to be reevaluated with the patient having a prolonged hospital stay with recurrent acute decompensation and poor prognosis for change. History of Present Illness History of Present Illness Chief Complaint: Unresponsive with diaphoresis and increased oxygen needs Narrative: This is a 74-year-old male patient who has been on swing bed level of care for several weeks pending placement because of inability to return home to his previous living situation. He was initially hospitalized in October 2023. He is status post CVA with right hemiparesis and speech difficulty since 2022 and was admitted with dehydration and infection of his urine initially and then has had wound infections as well as now what appears to be pneumonia with increasing oxygen needs. He has not been at baseline with less responsiveness for the last 24 to 48 hours with this worsening acutely this morning. His oxygen needs were progressively increasing being on 10 L/min per nasal cannula and now requiring BiPAP though he is not retaining CO2. X-ray done in the afternoon did show progressing infiltrates in the left more than right base and repeat chest x-ray upon admission to ICU because of his acute decompensation show progression of this problem. He does have a Riojas catheter in place for urinary outlet obstruction and has had hematuria with traumatic insertion recently and he is on coverage for UTI. Urine cultures are pending and blood cultures were performed with the acute onset of this process. His antibiotic coverage was broadened with patient on Augmentin but now on coverage for his UTI and hospital-acquired pneumonia. He has poor circulation and is status post amputation of toes with some skin breakdown during his hospital stay. His blood pressure initially was not low but his MAP fell below 65 consistently once in the ICU with IV fluid resuscitation now with at least 2 L and on normal saline 150 cc an hour. Because of persistent MAP measurements below 65 the patient was placed on norepinephrine infusion for pressure control. Patient urine output had decreased as well and with septic shock will try to maintain organ perfusion. The patient remains minimally responsive to painful stimuli but did have some response during exam especially when palpating the abdomen though it was not responding at his baseline. He was less diaphoretic. Urine output in the Riojas was clear. The patient is a full code and I did call his daughter to update his status with her confirming that she still wished him to be a full code. The patient does have multiple medical problems with poor quality of life and failure to thrive with this CODE STATUS and ongoing discussion. Review of Systems Narrative: 13 point review of systems not obtainable with the patient's delirium with septic shock. [facility] All Active Problems (Updated 03/12/24 @ 15:08 by Dwayne Boswell) Septic shock (Acute) Pneumonia, aspiration (Acute) Hypotension (Acute) Hypoalbuminemia (Acute) Diabetes (Chronic) Hypernatremia (Acute) Aspiration into respiratory tract (Acute) Hypothyroidism (acquired) (Chronic) Bilateral pneumonia (Acute) Acute hypoxic respiratory failure (Acute) Hypoxia (Acute) Opiate dependence, continuous (Chronic) Methadone dependence (Acute) Hemiparesis affecting right side as late effect of cerebrovascular accident (Acute) Coughing (Acute) Pain and swelling of left forearm (Acute) Nausea (Acute) Urinary retention (Acute) Failure to thrive in adult (Chronic) Decrease in appetite (Chronic) Rales 1/[address] up posterior chest wall on left side (Acute) Dysphagia due to old stroke (Acute) Palliative care encounter (Chronic) Benign prostatic hyperplasia with urinary retention (Chronic) BPH with urinary obstruction (Acute) UTI (urinary tract infection) (Acute) Discharge planning issues (Chronic) Hypokalemia (Acute) Psychomotor agitation (Chronic) Medical neglect of elder by caregiver (Chronic) Encounter for assessment of healthcare decision-making capacity (Acute) Conjunctivitis, left eye (Acute) Dysphagia due to recent stroke (Acute) Chronic right shoulder pain (Acute) Type 2 diabetes mellitus (Chronic) Encounter for long-term methadone use for opiate dependence (Acute) 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) Advanced care planning/counseling discussion (Acute) Hypertension (Chronic) Substance abuse in remission (Chronic) 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) Osteomyelitis of second toe of left foot (Acute) MRSA bacteremia (Acute) Osteomyelitis of toe of right foot (Acute) Foot infection (Acute) Cellulitis (Acute) Osteomyelitis due to type 2 diabetes mellitus (Acute) left great toe Hypothyroidism (Chronic) Osteomyelitis of great toe of left foot (Acute) Chronic ulcer of great toe (Acute) Amputation of toe of right foot (Acute) Hyperlipidemia (Chronic) Ganglion cyst of finger of right hand (Acute) Onychomycosis (Acute) Erectile dysfunction (Acute) Chronic pain (Chronic) ADHD (Acute) Polyp of colon, adenomatous (Acute) Adenoma of right adrenal gland (Acute) Diverticulosis (Acute) Asthma (Chronic) Staphylococcus epidermidis bacteremia (Acute) Cognitive impairment (Acute) Acute cerebrovascular accident (CVA) (Acute) Acute ischemic stroke (Acute) Left carotid artery occlusion (Acute) Palliative care patient (Acute) Expressive aphasia (Acute) Paralysis of right upper extremity (Acute) Dysphagia (Acute) Generalized anxiety disorder (Acute) Plantar ulcer of left foot (Acute) Lung nodule (Acute) 2022 2 mm right upper lobe Medical History Bladder stones Acute kidney injury Cellulitis of foot, right Diabetic infection of right foot Osteomyelitis of second toe of right foot History of back pain Hepatitis C Disorder of tendon of right hand Hyperglycemia Anxiety Toe osteomyelitis, right Right great toe Surgical History History of amputation of great toe History of liver biopsy (~01/2001) History of appendectomy History of inguinal hernia repair 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 DOS: 01/15/19 Family History Brother Heart disease Father Congestive heart failure Mother Congestive heart failure Social History Smoking/Tobacco Use Status: Current every day Tobacco Type: cigars Smoking risk assessment performed?: Yes Alcohol Intake: former Drug use: Current Sobriety Substance use type: former substance user Details: on methadone Caregiver/Support person: No Housing: apartment Communication Needs: Hard of Hearing and Corrective Lenses Pets and animals: Yes Pets and animals: cat(s) and dog(s) Sexually active: No Do you think of yourself as: straight/heterosexual Current gender identity: male What is your relationship status?: How often do you talk on the phone with friends or family?: three or more times per week How often do you get together with friends or relatives?: three or more times per week How often do you attend gnosticism or christianity services?: decline to answer Do you belong to any clubs or organized social groups?: no Panel score (0-1 are the most socially isolated patients): 2 What type of physical activity do you participate in: none Frequency: does not exercise Richa/Quaker: None Special richa needs: No Seatbelt use: always Helmet use: No Drive intox or ride w/intox courier 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: No Do you feel safe at home: Yes Do you feel safe in your relationship?: Yes Meds Allergies and Home Medications Allergies Allergy/AdvReac Type Severity Reaction Status Date / Time codeine AdvReac itching Verified 06/16/23 18:04 and bloutchy naloxone HCl [From Narcan] AdvReac IT Verified 06/16/23 18:04 INTERACTS WITH MY METHADONE pentazocine lactate AdvReac makes me Verified 06/16/23 18:04 [From Erica] deathly ill Narcotic AdvReac H/O drug Uncoded 06/16/23 18:04 abuse narcotic antagonists AdvReac withdrawls Uncoded 06/16/23 18:04 Home Medications Medication Instructions Recorded Confirmed Type levothyroxine 137 mcg tablet 137 mcg PO DAILY 12/21/19 11/22/23 History blood sugar diagnostic (Blood 11/20/22 12/26/23 History Glucose Test strips) blood-glucose meter 11/20/22 12/26/23 History lancets 28 gauge 11/20/22 12/26/23 History pen needle, diabetic 32 gauge x 11/20/22 12/26/23 History (1st Tier Unifine Pentips) blood-glucose meter,continuous #1 ea 12/05/22 12/26/23 Rx (Dexcom G6 Filing Clerk) blood-glucose sensor (Dexcom G6 #3 ea 12/05/22 12/26/23 Rx Sensor device) blood-glucose transmitter (Dexcom #1 ea 12/05/22 12/26/23 Rx G6 Transmitter device) cholecalciferol (vitamin D3) 25 25 mcg PO DAILY 07/09/23 11/22/23 History mcg (1,000 unit) capsule docusate sodium 100 mg capsule 200 mg PO DAILY 07/09/23 11/22/23 History aspirin 81 mg tablet,delayed 81 mg PO DAILY #90 tabs 07/10/23 11/22/23 Rx release amlodipine 5 mg tablet 5 mg PO DAILY #90 tabs 08/02/23 11/22/23 Rx atorvastatin 80 mg tablet 80 mg PO QHS #90 tabs 08/02/23 11/22/23 Rx polyethylene glycol 3350 17 gram 17 g PO DAILY PRN 08/23/23 11/22/23 History oral powder packet ticagrelor 90 mg tablet (Brilinta) 90 mg PO BID #60 tabs 09/11/23 11/22/23 Rx gabapentin 800 mg tablet 800 mg PO BID 09/27/23 11/22/23 History carvedilol 12.5 mg tablet 12.5 mg PO DAILY #180 tabs 10/21/23 11/22/23 Rx acetaminophen 325 mg tablet 650 mg PO Q4H PRN 11/22/23 11/22/23 History aluminum-mag hydroxide-simethicone 30 ml PO Q2H PRN 11/22/23 11/22/23 History 200 mg-200 mg-20 mg/5 mL oral susp bisacodyl 10 mg rectal suppository 10 mg [place] DAILY PRN 11/22/23 11/22/23 History clonazepam 0.5 mg tablet 0.5 mg PO BID 11/22/23 11/22/23 History enoxaparin 40 mg/0.4 mL 40 mg subcut DAILY 11/22/23 11/22/23 History subcutaneous syringe insulin glargine 100 unit/mL (3 12 unit subcut QPM 11/22/23 11/22/23 History mL) subcutaneous pen esomeprazole magnesium 40 mg 40 mg PO DAILY AM 11/23/23 11/23/23 History capsule,delayed release (Nexium) hydrocodone 10 mg-acetaminophen 1 tab PO Q4H PRN 11/23/23 11/23/23 History 325 mg tablet insulin aspart U-100 100 unit/mL 1 sliding scale dose subcut 11/23/23 11/23/23 History subcutaneous cartridge (Novolog USEASDIRECTD PenFill U-100 Insulin aspart) lactulose 10 gram/15 mL oral 20 g PO TID 11/23/23 11/23/23 History solution mag&al/simeth/diphen/lido 5 ml PO Q6H PRN 11/23/23 11/23/23 History magnesium hydroxide 400 mg/5 mL 30 ml PO DAILY PRN 11/23/23 11/23/23 History oral suspension (Milk of Magnesia) sennosides 8.6 mg-docusate sodium 1 tab-cap PO QHS PRN 11/23/23 11/23/23 History 50 mg tablet (Senna with Docusate Sodium) Exam Narrative Exam Narrative: General: Patient appears older than stated age, very thin and almost cachectic but comfortable lying in bed. He is minimally arousable but does open his eyes and at baseline has expressive aphasia. He is delirious and not oriented to person, place or time. He is in no acute distress and lethargic. HEENT: Normocephalic, coarsened facial features, long unkempt hair and reyes. Eyes with pupils equal and reactive to light symmetrically, extraocular movement intact and sclera anicteric. Oropharynx with dry mucosa and poor dentition. Neck: Supple without JVD. Lungs: Poor inspiratory effort with inspiratory vesicular breath sounds but end inspiration and expiratory coarse crackles over the left lung aguilar at the base and midlung aguilar mostly but no focalizing rales over the right. No increased expiratory phase or expiratory wheeze. Back: Not examined the patient supine. Heart: Distant heart sounds with regular rate and rhythm and no appreciable murmur or gallop. Abdomen: Scaphoid contour, soft nontender to palpation with no palpable hepatosplenomegaly. Bowel sounds positive in all quadrants but decreased. Genitalia/rectal: Exam deferred. Riojas catheter is in place. Extremities: Without clubbing, cyanosis or pitting edema. Nonpitting edema lower extremities with muscle wasting diffusely. Patient does have amputation of all the toes on the right foot and most of the toes on the left. Skin: Pale, warm and dry. Neuro: Cranial nerves II through XII gross intact, decreased motor right upper and lower extremity and expressive aphasia. No tremor. Psych: Patient with flattened affect with delirium and when he opens his eyes has little response other than looking toward the interviewer. Remote and recent memory not testable. Results Imaging Imaging Studies: EXAM: XR PORTABLE CHEST AP CLINICAL HISTORY: hypoxia TECHNIQUE: 2D digital imaging was performed of the chest. Two images were obtained. AP views were obtained. COMPARISON: CR XR CHEST 2V PA LATERAL from 01/03/[address] ABDOMEN PELVIS WO from 02/18/2024 FINDINGS: MEDIASTINUM: Normal. HEART: Normal. PULMONARY VASCULATURE: Normal. LUNGS: There is an infiltrate seen in the left lower lobe. It appears progressed since the prior examination. There is a smaller infiltrate seen in the right lower lobe. PLEURAL SPACE: No pleural effusion or pneumothorax. BONE:Within normal limits for the patient's age. OTHER FINDINGS:Normal. IMPRESSION: Bilateral lower lobe infiltrates, left greater than right. There has been progression of the infiltrate particularly in the left lower lobe since 02/18/2024. The findings are suspicious for pneumonia. Exam: XR Chest Exam date and time: 03/12/2024 3:24 AM Age: 74 years old Clinical indication: Other: Acute hypoxemia with pneumonia TECHNIQUE: Imaging protocol: Radiologic exam of the chest. Views: 1 view. COMPARISON: CR XR PORTABLE CHEST AP 03/11/2024 4:21 PM FINDINGS: Lungs: There is patchy airspace disease in the mid and lower lung zones bilaterally, slightly worse compared with the prior study from yesterday. Pleural spaces: No pleural effusion or pneumothorax is demonstrated. Heart/Mediastinum: Heart size is normal. Vasculature: There is atherosclerotic calcification at the apex of the aortic arch. Bones/joints: The visualized bony structures appear grossly intact, as seen. Old left-sided rib fractures are redemonstrated. IMPRESSION: Patchy airspace disease in the mid and lower lung zones bilaterally but more prominent on the left, slightly worse compared with the comparison exam from yesterday. Multifocal pneumonia or aspiration suggested. Labs 03/12/24 02:45 03/12/24 05:45 Time Spent Time spent with Patient: >75 minutes Time was spent: preparing to see the patient(eg.review tests), ordering medications,tests, procedures, referring, communicating with other health care taker, indepentently interpreting results and care coordination
[2024-03-12 03:27] LABS: BE (Venous) 4 mmol/L (-2-3); HCO3 (Venous) 29 mmol/L (23-28); O2 Sat (Venous) 99 %; TCO2 (Venous) 27 mmol/L (24-29); pCO2 (Venous) 46 mmHg (41-51); pH (Venous) 7.41 (7.31-7.41); pO2 (Venous) 97 mmHg
[2024-03-12 03:28] LABS: Lactate 1.8 mmol/L (0.6-1.4)
[2024-03-12 03:30] LABS: HCT 29.7 % (40.0-50.0); HGB 9.4 g/dL (13.5-17.5); MCH 28.5 pg (27.0-33.0); MCHC 31.6 % (32.0-36.0); MCV 90 fL (80-95); MPV 10.9 fL (8.0-11.0); Platelet Count 267 10^3/uL (130-400); RDW 14.5 % (11.8-14.1); RDW-SD 47.3 fL; WBC 8.26 10^3/uL (4.4-10.8)
[2024-03-12 03:33] LABS: ALT 24 U/L (16-63); AST 17 U/L (15-37); Albumin 1.9 g/dL (3.4-5.0); Alkaline Phosphatase 158 U/L (46-116); Anion Gap 7.3 mmol/L (3-11); BUN 62 mg/dL (7-18); Bilirubin, Total 0.4 mg/dL (0.2-1.0); CO2 28.7 mmol/L (21.0-32.0); CREATININE 1.3 mg/dL (0.70-1.30); Calcium 8.5 mg/dL (8.5-10.1); Chloride 112 mmol/L (98-107); Estimated GFR 58.37 (mL/min/1.73m2); Glucose 365 mg/dL (74-106); NT-proBNP 807 pg/mL (<300); Potassium 4.3 mmol/L (3.5-5.1); Sodium 148 mmol/L (136-145); Total Protein 6.8 g/dL (6.4-8.2)
[2024-03-12 03:37] LABS: Abs Immature Grans 0.01 10^3/uL (0.0-0.06); Absolute Basophil Count 0.03 10^3/uL (0.0-0.2); Basophils % 0.4; Immature Grans % 0.1
[2024-03-12] MEDS: Normal Saline 250 ML 500 ML IV (03:44)
[2024-03-12 03:47] LABS: Troponin I < 50 ng/L (< or =60)
[2024-03-12 03:57] LABS: Bilirubin Negative (Negative); Blood Moderate (Negative); Clarity Cloudy (Clear); Glucose 100 mg/dL (Negative); Ketones Negative (Negative); Leukocyte Esterase Large (Negative); Nitrite Positive (Negative); Urobilinogen 0.2 mg/dL (Up to 0.2); pH >= 9.0 (5-8)
[2024-03-12] MEDS: Normal Saline Flush 10 ML SYR IVP ×5 (03:59→14:59)
[2024-03-12] MEDS: VANCOMYCIN/WATER (PEG) 1.5 GM/300 ML BAG IVPB (04:00)
[2024-03-12] MEDS: CEFEPIME 2 GM in Normal Saline 50 ML IVPB (04:00)
[2024-03-12 04:11] LABS: Absolute Lymphocyte Count 0.74 10^3/uL (1.2-3.4); Absolute Monocyte Count 0.58 10^3/uL (0.1-0.8); Absolute Neutrophil Count 6.86 10^3/uL (1.2-6.7); Bands % 2; Diff Comment Manual Differential; Metamyelocytes % 1; RBC Morphology Normal
[2024-03-12 04:12] LABS: WBC >50 HPF (0-5)
[2024-03-12 04:13] LABS: Bacteria Moderate HPF (Negative); C & S Indicated? C&S Done As Ordered; Crystals Moderate Triple Phos HPF (Negative); Epithelial Cells Negative HPF (Negative); Mucus Negative (Negative)
--- NOTE | 2024-03-12 04:24 | DI.VRAD_ITS ---
PROCEDURE INFORMATION: Exam: XR Chest Exam date and time: 03/12/2024 3:24 AM Age: 74 years old Clinical indication: Other: Acute hypoxemia with pneumonia TECHNIQUE: Imaging protocol: Radiologic exam of the chest. Views: 1 view. COMPARISON: CR XR PORTABLE CHEST AP 03/11/2024 4:21 PM FINDINGS: Lungs: There is patchy airspace disease in the mid and lower lung zones bilaterally, slightly worse compared with the prior study from yesterday. Pleural spaces: No pleural effusion or pneumothorax is demonstrated. Heart/Mediastinum: Heart size is normal. Vasculature: There is atherosclerotic calcification at the apex of the aortic arch. Bones/joints: The visualized bony structures appear grossly intact, as seen. Old left-sided rib fractures are redemonstrated. IMPRESSION: Patchy airspace disease in the mid and lower lung zones bilaterally but more prominent on the left, slightly worse compared with the comparison exam from yesterday. Multifocal pneumonia or aspiration suggested. Dictated and Authenticated by: Emanuel Crenshaw MD. Ordering:BRIDGET Rice MD
[2024-03-12] MEDS: Norepinephrine in D5W 8 MG/250 ML BAG 9.375 MG IV (04:35)
[2024-03-12] MEDS: Normal Saline 1,000 ML 150 ML IV (04:37)
--- NOTE | 2024-03-12 05:00 | NUR.NOTE ---
Nursing Note: Returned call to [facility] daughter Alejandra Caballero. Informed of transfer to ICU and decline in pt condition.
--- NOTE | 2024-03-12 06:09 | W.ANESVAS ---
Midline Placement Date Performed: 03/11/24 Procedure Time: 15:45 Requesting Provider: Kait Rivera Procedure Location: Med/Surg Sedation Given (Indicate Dose Given): No Sedation given Patient Mental Status: Awake Sterility: Hand Hygiene, Sterile Gloves and Chlorhexidine Laterality: Left Insertion Site: Other (brachial vs basilic at the AC) Midline Device: PowerGlide Pro 20G Catheter Length: 10 cm Midline Procedure Procedure: Catheter placed without resistance Dressing: Tegaderm Applied and Statlock Applied Blood Return: Present Flushes: Easily Ultrasound: Sterile probe cover and gel used Ultrasound Image Saved?: No Number of Attempts (See previous attempts in note section): 1 Procedure Tolerated: No Complications Procedure Outcome: Successful Procedure Comment:: better/larger target further up the arm with nerve right over the vein, line placed lower in arm to avoid nerve contact. Performed By: Wilber Islas
[2024-03-12 06:30] LABS: ALT 24 U/L (16-63); AST 17 U/L (15-37); Albumin 1.9 g/dL (3.4-5.0); Alkaline Phosphatase 149 U/L (46-116); Anion Gap 5.4 mmol/L (3-11); BUN 57 mg/dL (7-18); Bilirubin, Total 0.5 mg/dL (0.2-1.0); CO2 28.6 mmol/L (21.0-32.0); CREATININE 1.1 mg/dL (0.70-1.30); Calcium 8.1 mg/dL (8.5-10.1); Chloride 116 mmol/L (98-107); Estimated GFR 71.32 (mL/min/1.73m2); Glucose 314 mg/dL (74-106); Sodium 150 mmol/L (136-145); Total Protein 6.6 g/dL (6.4-8.2)
--- NOTE | 2024-03-12 07:21 | W.PULMCC ---
General Date of Service Date of service: 03/12/24 Time of Service: 07:21 Assessment and Plan Assessment and plan (1) Acute hypoxic respiratory failure: Status: Acute (2) Aspiration into respiratory tract: Status: Acute (3) Hypernatremia: Status: Acute (4) Diabetes: Status: Chronic (5) Hypoalbuminemia: Status: Acute (6) Hypotension: Status: Acute Assessment and plan: This is a 74 yo chronically unwell man who is admitted to the ICU for hypotension and hypoxic respiratory failure. His story seems most consistent with aspiration. He does not appear toxic. I do not think he needs vanc and cefepime, so I discontinued these and put him on ceftriaxone. He does have hypernatremia, which is at least in part iatrogenic from receiving a significant amount of normal saline. 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 He does not require any further fluid. I am hopeful that his pressors will be able to be weaned today. His glucose levels are and have been out of control so I will add Lantus to achieve more appropriate levels. Recommendations Pulmonary: Acute hypoxic respiratory failure - supplemental O2 for sats, goal >90% - wean O2 as able Aspiration - stop vanc and cefepime - BOARDING HOUSE MANAGER involvement - start ceftriaxone, plan for 3 days Cardiac: Hypotension - not toxic, good cardiac function on POCUS - Levophed for MAP goal 65mmHg - wean levophed as able - pending blood cultures Renal: Hypernatremia - likely partially iatrogenic - BMP this afternoon to ensure Na is not increasing - if Na is increasing, may need D5W (and insulin adjustment) to correct - encourage PO intake I&O: Intake & Output 03/09/24 03/10/24 03/11/24 03/12/24 23:59 23:59 23:59 23:59 Intake Total 304.688 / 304.688 Output Total 555 / 555 Balance -250.312 / -250.312 Weight 62.2 kg Daily Fluid Goal:: even GI Nutrition: Ok for diet if able to swallow safely Infectious Disease: Concern for aspiration pneumonia - MRSA nares repeat - pending blood cultures - ceftriaxone as above Hematologic: No acute concerns Neurologic: Chronic issues, no acute concerns - holding sedating meds currently Endocrine: Diabetes - glucose levels are uncontrolled with SSI - 15U Lantus daily started Lines: Midline Prophylaxis: Lovenox Nexium Code Status: Resuscitation Status Full Code Subjective Critical and life-threatening events over the past 24 hours: This is a 74 yo man who was on swing bed status for months who experienced an acute decompensation yesterday with a new O2 requirement. He ultimately was admitted to the ICU given increased O2 needs and vasopressor needs for hypotension. He was over-resuscitated with normal saline with no significant improvement in blood pressure. He is not able to verbally converse at baseline and is on a significant amount of medications that are sedating. This morning I was able to wean the Levophed to 5mcg and his O2 to 3LPM. Exam Narrative Exam Narrative: Gen: NAD, normal respiratory effort, thin HENT: PERRL Chest: No respiratory distress, normal appearance of chest, clear to auscultation bilaterally, no crackles or wheezes, normal inspiratory effort Heart: regular rate and rhythym, no murmurs, rubs or gallops Abdomen: Non-distended, soft, non tender Extremities: No clubbing, edema, cyanosis, rashes Neuro: somnolent Psych: not cooperative Most Recent VS/Results Last Vital Signs Temp 37.2 C 03/12/24 06:31 Pulse 71 03/12/24 06:46 Resp 14 03/12/24 06:46 BP 124/52 L 03/12/24 06:46 Pulse Ox 94 03/12/24 06:46 Laboratory Results - last 24 hr 03/12/24 03/12/24 03/12/24 02:45 02:55 03:25 WBC 8.26 RBC 3.30 L Hgb 9.4 L Hct 29.7 L MCV 90 MCH 28.5 MCHC 31.6 L RDW 14.5 H Plt Count 267 MPV 10.9 Immature Gran % 0.1 Neutrophils % 81.0 Band Neutrophils % 2 Lymphocytes % 9.0 Monocytes % 7.0 Eosinophils % 0.0 Basophils % 0.4 Metamyelocytes % 1 Nucleated RBC % 0.0 Absolute Neutrophils 6.86 H Absolute Lymphocytes 0.74 L Absolute Monocytes 0.58 Absolute Eosinophils 0.00 Absolute Basophils 0.03 RBC Morphology Normal VBG pH 7.41 VBG pCO2 46 VBG pO2 97 VBG HCO3 29 H VBG Total CO2 27 VBG O2 Saturation 99 VBG Base Excess 4 H VBG Lactate 1.8 H Sodium 148 H Potassium 4.3 Chloride 112 H Carbon Dioxide 28.7 Anion Gap 7.3 BUN 62 H Creatinine 1.3 Est GFR (CKD-EPI 2020) 58.37 Glucose 365 H Calcium 8.5 Total Bilirubin 0.4 AST 17 ALT 24 Alkaline Phosphatase 158 H Troponin I < 50 NT-Pro-B Natriuret Pep 807 H Total Protein 6.8 Albumin 1.9 L Urine Color Yellow Urine Clarity Cloudy Urine pH >= 9.0 H Ur Specific Custer 1.010 Urine Protein >=300 H Urine Ketones Negative Urine Blood Moderate H Urine Nitrite Positive H Urine Bilirubin Negative Urine Urobilinogen 0.2 Ur Leukocyte Esterase Large H Urine RBC Urine WBC >50 H Ur Epithelial Cells Negative Urine Crystals Moderate Triple Phos Urine Bacteria Moderate Urine Mucus Negative Ur Culture Indicated? C&S Done As Ordered Urine Glucose 100 H COVID-19 Source Cancelled SARS-CoV-2 (PCR) Cancelled Influenza Type A (PCR) Cancelled Influenza Type B (PCR) Cancelled RSV (PCR) Cancelled 03/12/24 03/12/24 03:27 05:45 WBC RBC Hgb Hct MCV MCH MCHC RDW Plt Count MPV Immature Gran % Neutrophils % Band Neutrophils % Lymphocytes % Monocytes % Eosinophils % Basophils % Metamyelocytes % Nucleated RBC % Absolute Neutrophils Absolute Lymphocytes Absolute Monocytes Absolute Eosinophils Absolute Basophils RBC Morphology VBG pH VBG pCO2 VBG pO2 VBG HCO3 VBG Total CO2 VBG O2 Saturation VBG Base Excess VBG Lactate 1.0 Sodium 150 H Potassium 4.0 Chloride 116 H Carbon Dioxide 28.6 Anion Gap 5.4 BUN 57 H Creatinine 1.1 Est GFR (CKD-EPI 2020) 71.32 Glucose 314 H Calcium 8.1 L Total Bilirubin 0.5 AST 17 ALT 24 Alkaline Phosphatase 149 H Troponin I NT-Pro-B Natriuret Pep Cancelled Total Protein 6.6 Albumin 1.9 L Urine Color Urine Clarity Urine pH Ur Specific Custer Urine Protein Urine Ketones Urine Blood Urine Nitrite Urine Bilirubin Urine Urobilinogen Ur Leukocyte Esterase Urine RBC Urine WBC Ur Epithelial Cells Urine Crystals Urine Bacteria Urine Mucus Ur Culture Indicated? Urine Glucose COVID-19 Source SARS-CoV-2 (PCR) Influenza Type A (PCR) Influenza Type B (PCR) RSV (PCR) Review of Systems All systems reviewed & are unremarkable except as noted in HPI and below Time spent with patient Time spent in Critical Care: 60 Time spent in Critical care included: Chart review, Documenting critically ill care, Time at immediate bedside and Discussing critically ill care with other medical staff Pocus Exam Limited Cardiac Exam DATE OF EXAM: 03/12/24 TIME OF EXAM: 08:00 PROVIDER THAT PERFORMED THE STUDY: Melvi Roa IS THIS A REPEAT EXAM DURING THIS ENCOUNTER: no REASON FOR EXAM: Hypotension VISUALIZED STRUCTURES: four chambers, Interventricular septum and IVC VIEW OBTAINED: Subxiphoid PERTINENT FINDINGS/IMPRESSION: Plethoric IVC; No LV dysfunction, No pericardial effusion, No RV dilation and No RV dysfunction Exam complete
--- NOTE | 2024-03-12 08:36 | PDOC.CMPRO ---
Date of service: 03/12/24 Time of Service: 08:36 Care Management Progress Note Progress Note Text Progress Note Text: S/O: Ed was sitting up in bed when CM met with him. He was audibly congested but was awake, alert and oriented. Ed is recovering from his bout of healthcare associated pneumonia. He is now saturating in the mid nineties on room air and has been afebrile, although his WBC is elevated at 11.62. CM discussed the tapering of Ed's methadone with him today. He was on 60mg bid and has been tapered down to 30 mg/day with the addition of MS Contin 60 mg bid. Per provider, her has not had any symptoms of withdrawal. Ed seemed surprised that his methadone was being tapered down, but the provider has discussed it with him. It is not clear if Ed will be weaned completely off methadone and only remain on MS Contin or if he will have both prescribed at discharge. The decision will likely be made this week as the taper continues. Tentative discharge still planned for 03/25/24. A: Ed is a 74 year old man admitted on 10/31/23 with pneumonia . P: Ed will likely transition to an [facility] ([facility]) home in [place] when all arrangements have been finalized. CM will continue to follow and support Ed and his discharge planning needs. SDOH(Care Management) Screenin SDOH(Care Management) Screening Will the Patient Participate in the Screening?: Unable to obtain
[2024-03-12] MEDS: Enoxaparin 40 MG/0.4 ML SYR SC (09:29)
[2024-03-12] MEDS: cefTRIAXone 1 GM/50 ML BAG IVPB (09:29)
[2024-03-12] MEDS: Insulin Glargine 300 UNITS/3 ML PEN 15 UNITS SC (09:38)
--- NOTE | 2024-03-12 13:22 | SP_ITS ---
Date of service: 03/12/24 Time of Service: 11:30 Subjective Clinical (Bedside) Swallow Evaluation Speech Language Pathology Referred by: Dr Dwayne Petit Referral Type: Clinical Swallow Evaluation Reason for Referral/HPI: Freddie Caballero is a 74 yo M who was re-referred for BEVELING AND EDGING MACHINE OPERATOR swallow evaluation secondary to change in status/hypoxic respiratory failure with suspected aspiration pneumonia. He is highly familiar to this clinician/department - with initial admission on 10/31/23 with pneumonia and dehydration. 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 Hospitalization course has been complicated by several discharge barriers. He transitioned from SB-2 to acute status today in light of hypoxic respiratory failure; currently in ICU. Last MBSS was on 11/04/23. This revealed moderate to severe oral pharyngeal sensorimotor dysphagia with delayed swallow onset and gross discoordination, res ulting in silent aspiration with thin and mildly thick liquids. Thicker liquids resulted in prolonged swallow initiation, with silent aspiration from spillover from pyriforms. A chin tuck also increased quantity of aspiration (suspect increased coordination demands negatively impacting swallow function). See report for more information. BEVELING AND EDGING MACHINE OPERATOR team recommended L5 minced/moist solids and thin liquids with strict aspiration precautions, including close supervision, bolt upright positioning, oral care before/after meals, and small single bites/sips. BEVELING AND EDGING MACHINE OPERATOR IMPRESSIONS & RECOMMENDATIONS: Ed presented today as fatigued/lethargic, though woke easily to clinician verbal prompting and highly interested in PO. He was able to follow basic instructions and respond in 1-2 word answers, with paraphasias and jargon noted. He does not appear to be fully at baseline with regards to communication/cognition, however at baseline he was demonstrating notable fluctuation. Ed was on 3LPM oxymask at start of evaluation, requiring increase to 5LPM with transition to nasal cannula for PO trials. He tolerated ice chips and applesauce well; intermittent wet cough noted with both thin liq uids and mildly thick liquids. Best tolerance of liquids was thin water via tsp. Overall, Ed is considered to be at chronic high risk for aspiration, currently exacerbated by deconditioned status. Recommend initiate PO in small amounts, as outlined below, with very strict aspiration precautions in place. Recommend discontinue PO with decline in status, worsening respiratory status, or with frequent overt symptoms of aspiration. FURTHER BEVELING AND EDGING MACHINE OPERATOR SERVICES: Patient to be followed while on unit Diet Recommendations: Small amounts - for pleasure/therapy. 4-6oz snacks frequently SOLIDS: 4-Pureed Solids (applesauce, jello, Ensure thickened to be pudding consistency) LIQUIDS: 0-Thin Liquids via tsp, Ice chips OK for pleasure too MEDICATIONS: Crushed (whole if v small) in applesauce. Alter medications only as advised by MD or Pharmacist RISK MANAGEMENT: [place] upright 90 degrees for all PO intake . Stay upright 30 min after meals. HOB elevated 30 degrees at all times Very small/slow bites and sips PO only when alert/awake Oral hygiene before/after PO. Application of oral lubricating gel encouraged at end of mouthcare following PO. Level of Assistance/Supervision: 1:1 close supervision/assist for all PO intake PO intake only when awake/alert? Strategies/Adaptations/Assistive Equipment: Posture/Positioning Needs: Maintain upright position at least 30 minutes after meals Sleep with head of bed elevated 30 degrees SUBJECTIVE: Patient received alert/awake, agreeable to evaluation Pain Reported? None Baseline Swallow Function: See history above re: dysphagia hx PO Trials Assessed: Ice IDDSI 0 Thin Liquids IDDSI 2 Mildly Thick Liquid IDDSI 4 Puree Solid Oral Mechanism Examination: Patient is edentulous. Oral mucosa is dry. Cranial Nerve Assessment: Global weakness appreciated in light of deconditioned status. Oral Phase Findings: Prolonged but WFL for trials assessed Pharyngeal Phase Findings: Delayed swallow initiation Reduced hyolaryngeal elevation/excursion Cough after swallow (intermittent) Voice change after swallow?(intermittent) ASSESSMENT: Further BEVELING AND EDGING MACHINE OPERATOR Services indicated. Patient to be followed while on unit. Recommendation at Discharge: BEVELING AND EDGING MACHINE OPERATOR Services via Home Health, to be determined] Suggested Referrals: N/A Recommended Procedures: N/A Recommendations: ? Education Provided to: Nursing, Patient Topics Addressed: BEVELING AND EDGING MACHINE OPERATOR findings, aspiration precautions PLAN: Frequency: 2-3x/week for 1-2 weeks Goals: Spinning Lathe Operator Goals: Patient will remain free from aspiration-related illness, malnutrition, and dehydration. Short Term Goals: Patient will tolerate Puree Diet and Thin liquids without overt s/s aspiration across 2/2 visits. Patient will tolerate PO trials for consideration of diet upgrade without overt s/s aspiration across 2/2 visits. BEVELING AND EDGING MACHINE OPERATOR CPT Code: 40529 Clinical Swallowing Evaluation TOTAL TIME: 25 Minutes [id number]
[2024-03-12 13:53] LABS: MRSA PCR Negative (Negative)
[2024-03-12] MEDS: Insulin Aspart 300 UNITS/3 ML PEN SC ×2 (13:56→17:00)
[2024-03-12] MEDS: Lactulose 20 GM/30 ML CUP PO ×2 (13:56→21:26)
[2024-03-12] MEDS: Docusate Sodium 100 MG CAP PO (13:56)
[2024-03-12] MEDS: Furosemide 20 MG/2 ML VIAL IVP (15:00)
[2024-03-12 15:18] LABS: Anion Gap 5.8 mmol/L (3-11); BUN 51 mg/dL (7-18); CO2 30.2 mmol/L (21.0-32.0); CREATININE 1.1 mg/dL (0.70-1.30); Calcium 8.4 mg/dL (8.5-10.1); Chloride 115 mmol/L (98-107); Estimated GFR 71.32 (mL/min/1.73m2); Glucose 275 mg/dL (74-106); Potassium 3.6 mmol/L (3.5-5.1); Sodium 151 mmol/L (136-145)
--- NOTE | 2024-03-12 15:19 | PHA.ACLINAW ---
Renal Dosing Renal Dosing: BUN 57 mg/dL (7-18) H 03/12/24 05:45 Creatinine 1.1 mg/dL (0.70-1.30) 03/12/24 05:45 Anticoagulation Anticoagulation: Hgb 9.4 g/dL (13.5-17.5) L 03/12/24 02:45 Hct 29.7 % (40.0-50.0) L 03/12/24 02:45 Plt Count 267 10^3/uL (130-400) 03/12/24 02:45 Creatinine 1.1 mg/dL (0.70-1.30) 03/12/24 05:45 Relevant Labs Relevant Labs: Sodium 150 mmol/L (136-145) H 03/12/24 05:45 Potassium 4.0 mmol/L (3.5-5.1) 03/12/24 05:45 Chloride 116 mmol/L (98-107) H 03/12/24 05:45 DM Control DM Control: Glucose 314 mg/dL (74-106) H 03/12/24 05:45 Finger Stick Blood Glucose 259 Finger Stick Blood Glucose 259 Finger Stick Blood Glucose 259 Finger Stick Blood Glucose 293 Finger Stick Blood Glucose 293 Cardiac Review Cardiac Review: Troponin I < 50 ng/L (< or =60) 03/12/24 02:45 NT-Pro-B Natriuret Pep Cancelled 03/12/24 03:27 Pharmacy Antibiotic Review Pharmacy Antibiotic Activity: C/S review (Urine positive for Proteus Mirabilis, on Ceftriaxone) SOAP Subjective: Patient transferred to ICU overnight 03/11/24 for worsening/new Pneumonia, discharged from swingbed status Objective: BP soft, 112/60, HR 60-70's, on oxygen, FSBS 259, H/H down, Micro urine positive >100K, Proteus mirabilis (sensititve to Ceftriaxone), Chest xray progression of infiltrates of pneumonia Assessment: A little fluid overloaded with elevated bnp, Lasix x1 Patient initiated on Norepi infusion overnight, currently paused Plan: Please follow-up: MANY meds not continued @ transfer to ICU, aware, pt overly sedated. Will restart meds as needed. aware patient missed this morning's dose of Methadone. Meds not continued: Methadone, Lactobacillus, Amlodipine, Abilify, Coreg, Clonazepam, Mirtazapine, Ondansetron, Urocit-K, Senna. Gabapentin ordered, but on hold
--- NOTE | 2024-03-12 15:51 | NUR.NOTE ---
Reviewed the patient's code status with Dr. Roberts this AM. He states that the family is aware and has been talked with multiple times as well as having a palliative consult. The patients full code status will remain at this time. Nursing Note:
[2024-03-12] MEDS: Methadone Liquid 10 MG/ML 40 MG PO (22:06)
[2024-03-13] VITALS (24 sets, daily range): BP systolic 112–162; BP diastolic 47–68; PULSE 59–90; RESP 11–35; TEMP 36.4–37.3; O2SAT 88–96
[2024-03-13 06:40] LABS: HCT 27.3 % (40.0-50.0); HGB 8.6 g/dL (13.5-17.5); MCHC 31.5 % (32.0-36.0); MCV 89 fL (80-95); MPV 10.7 fL (8.0-11.0); Platelet Count 264 10^3/uL (130-400); RBC 3.07 10^6/uL (4.36-5.78); RDW 14.6 % (11.8-14.1); RDW-SD 47.6 fL; WBC 6.25 10^3/uL (4.4-10.8)
--- NOTE | 2024-03-13 07:32 | PUCC_ITS ---
General Date of Service Date of service: 03/13/24 Time of Service: 07:32 Reason for Admission to ICU: Respiratory failure Hypotension Assessment and Plan Assessment and plan (1) Acute hypoxic respiratory failure: Status: Acute (2) Aspiration into respiratory tract: Status: Acute (3) Hypernatremia: Status: Acute (4) Diabetes: Status: Chronic (5) Hypoalbuminemia: Status: Acute (6) Hypotension: Status: Acute Assessment and plan: This is a 74 yo chronically unwell man who is admitted to the ICU for hypotension and hypoxic respiratory failure. It seems most likely that he had an aspiration event which resulted in a SIRS response leading to a need for supplemental O2 and blood pressue support. He is able to come off ceftriaxone after 3 days. His UOP also picked up yesterday after a 20mg bolus of Lasix. He no longer has any ICU needs and is able to be made Med-Surg status as well as complete a thorough med reconciliation given all the changes that were made upon ICU transfer. Recommendations Pulmonary: Acute hypoxic respiratory failure - resolved Aspiration - REFINERY OPERATOR ALKYLATION involvement - start ceftriaxone, plan for 3 days Cardiac: Hypotension - resolved Renal: Hypernatremia - likely partially iatrogenic - continue to monitor - encourage PO intake I&O: Intake & Output 03/10/24 03/11/24 03/12/24 03/13/24 23:59 23:59 23:59 23:59 Intake Total 1783.126 / 1783.126 Output Total 1984 175 / 175 Balance -201.874 / -201.874 -175 / -175 Weight 62.2 kg 63 kg Daily Fluid Goal:: even GI Nutrition: Ok for diet if able to swallow safely Infectious Disease: Concern for aspiration pneumonia - MRSA nares repeat - not collected yet - pending blood cultures - ceftriaxone as above Hematologic: No acute concerns Neurologic: Chronic issues, no acute concerns - holding sedating meds currently Endocrine: Diabetes - glucose levels are uncontrolled with SSI - 15U Lantus daily started - may need up titration, defer to hospitalist Lines: Midline Prophylaxis: Lovenox Nexium Code Status: Resuscitation Status Full Code Subjective Critical and life-threatening events over the past 24 hours: Ed is doing much better today. He is able to converse with me, is off pressors and is on room air. Exam Narrative Exam Narrative: Gen: NAD, normal respiratory effort, thin HENT: PERRL Chest: No respiratory distress, normal appearance of chest, clear to auscultation bilaterally, no crackles or wheezes, normal inspiratory effort Heart: regular rate and rhythym, no murmurs, rubs or gallops Abdomen: Non-distended, soft, non tender Extremities: No clubbing, edema, cyanosis, rashes Neuro: non-focal Psych: cooperative, tangential speech Most Recent VS/Results Last Vital Signs Temp 37.3 C 03/13/24 00:00 Pulse 67 03/13/24 06:01 Resp 11 L 03/13/24 06:01 BP 136/60 03/13/24 06:01 Pulse Ox 92 03/13/24 06:01 Laboratory Results - last 24 hr 03/12/24 03/12/24 03/12/24 09:15 11:00 14:34 WBC RBC Hgb Hct MCV MCH MCHC RDW Plt Count MPV VBG Lactate Cancelled Sodium 151 H Potassium 3.6 Chloride 115 H Carbon Dioxide 30.2 Anion Gap 5.8 BUN 51 H Creatinine 1.1 Est GFR (CKD-EPI 2020) 71.32 Glucose 275 H Calcium 8.4 L MRSA (TEM-PCR) Negative 03/12/24 03/13/24 Unknown 05:57 WBC 6.25 RBC 3.07 L Hgb 8.6 L Hct 27.3 L MCV 89 MCH 28.0 MCHC 31.5 L RDW 14.6 H Plt Count 264 MPV 10.7 VBG Lactate Cancelled Sodium Potassium Chloride Carbon Dioxide Anion Gap BUN Creatinine Est GFR (CKD-EPI 2020) Glucose Calcium MRSA (TEM-PCR) Review of Systems All systems reviewed & are unremarkable except as noted in HPI and below Time spent with patient Time spent in Critical Care: 40 Time spent in Critical care included: Chart review, Documenting critically ill care, Time at immediate bedside and Discussing critically ill care with other medical staff
[2024-03-13] MEDS: Ticagrelor 90 MG TAB PO ×2 (09:07→21:06)
[2024-03-13] MEDS: Docusate Sodium 100 MG CAP 200 MG PO (09:07)
[2024-03-13] MEDS: Esomeprazole 40 MG CAPCR PO (09:07)
[2024-03-13] MEDS: Aspirin E.C. 81 MG TABEC PO (09:07)
[2024-03-13] MEDS: Cholecalciferol (Vitamin D3) 1,000 UNIT TAB 1000 UNITS PO (09:07)
[2024-03-13] MEDS: Lactulose 20 GM/30 ML CUP PO (09:08)
[2024-03-13] MEDS: cefTRIAXone 1 GM/50 ML BAG IVPB (09:08)
[2024-03-13] MEDS: Enoxaparin 40 MG/0.4 ML SYR SC (09:11)
--- NOTE | 2024-03-13 10:15 | PDOC.CMPRO ---
Date of service: 03/13/24 Time of Service: 10:15 Care Management Progress Note Progress Note Text Progress Note Text: S/O: Ed was lying in bed when CM met with him. His RN was in the room, and was about to help him eat his lunch. He stated he was doing ok today. Per report, he has been lethargic today. CM spoke to JEB Siddiqui, today, who inquired about scheduling an appointment after his discharge from [facility], to establish care once he is living at the AF home that CM has been coordinating with [facility] [place]. CM will continue to follow. A: Ed is a 73 year old man admitted on 10/31/23 with pneumonia . P: Ed will likely transition to an [facility] ([facility]ult Family [facility]) home in [place] when all arrangements have been finalized. CM will continue to follow and support Ed and his discharge planning needs. SDOH(Care Management) Screening Will the Patient Participate in the Screening?: Unable to obtain
[2024-03-13] MEDS: Insulin Glargine 300 UNITS/3 ML PEN 15 UNITS SC (10:49)
[2024-03-13] MEDS: Normal Saline Flush 10 ML SYR IVP ×2 (10:53→21:06)
--- NOTE | 2024-03-13 11:19 | PGE_ITS ---
Date of Service Date of service: 03/13/24 Time of Service: :19 Assessment and Plan Assessment and plan (1) Septic shock: Status: Acute Assessment and plan: -admited from swing bed status with septic shock with tachycardia, leukocytosis and hypotension requiring levophed due to hospital acquired PNA -He has responded to IV fluid resuscitation having received more than 30 cc/kg with normal saline and has ongoing normal saline at 150 cc an hour with his MAP now stabilizing with addition of norepinephrine infusion. -he has since been off of levophed for about 24 hours -He is on broad-spectrum antibiotics to cover possible UTI with urinary outlet obstruction and Riojas catheter placed as well as hospital-acquired pneumonia now confirmed on x-ray. -continue cefepime and vanc -had required HFNC and BiPAP but has since been weaned to room air -The patient is a full code and this will be respected; family was updated upon patients transfer to ICU (2) Acute hypoxic respiratory failure: Status: Acute Assessment and plan: -as noted above (3) Bilateral pneumonia: Status: Acute Assessment and plan: -as noted above Qualifiers: Lung location: lower lobe of lung Pneumonia type: due to unspecified organism Qualified Code(s): J18.9 - Pneumonia, unspecified organism (4) UTI (urinary tract infection): Status: Acute Assessment and plan: -Urine culture is pending but patient having Riojas catheter for bladder outlet obstruction and urology is seeing as needed. -Adjust antibiotic therapy to pathogen if culture is positive. -Patient also has blood cultures pending. -He was on Augmentin which has been discontinued. -Cefepime should cover most pathogens in the urine. Qualifiers: Hematuria presence: with hematuria Urinary tract infection type: acute cystitis Qualified Code(s): N30.01 - Acute cystitis with hematuria (5) Benign prostatic hyperplasia with urinary retention: Status: Chronic Assessment and plan: Continue Riojas catheter for urinary retention with urology consultation ongoing. (6) Type 2 diabetes mellitus: Status: Chronic Assessment and plan: Patient has had less intake and his basal insulin will be held with continued before meals and bedtime (or every 6 hours if patient is not waking up to eat) glucometer measurement coverage using moderate sliding scale of short acting insulin. Qualifiers: Diabetes mellitus complication detail: with polyneuropathy Diabetes mellitus complication status: with neurologic complications Diabetes mellitus group home insulin use: with group home use Qualified Code(s): E11.42 - Type 2 diabetes mellitus with diabetic polyneuropathy; Z79.4 - senior care (current) use of insulin (7) Opiate dependence, continuous: Status: Chronic Assessment and plan: -has recurrent episodes of oversedation or appearing as such on chronic methadone and hydrocodone. 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 -Ongoing PT and OT with speech therapy to reevaluate swallow with patient's pneumonia. -He is at high risk for aspiration. (9) Hyperlipidemia: Status: Chronic Assessment and plan: Continue statin therapy. Qualifiers: Hyperlipidemia type: mixed hyperlipidemia Qualified Code(s): E78.2 - Mixed hyperlipidemia (10) Hypothyroidism (acquired): Status: Chronic Assessment and plan: Continue supplementation without change. (11) Failure to thrive in adult: Status: Chronic Assessment and plan: Patient needs continued level to care at least once he is out of his acute decompensation. Placement is ongoing and family appears to be engaged with this plan especially the daughter though there is still some family dysfunction. His CODE STATUS needs to be reevaluated with the patient having a prolonged hospital stay with recurrent acute decompensation and poor prognosis for change. Subjective Subjective Interval history since last seen: Patient lethergic but awaken to verbal stimuli and states that he is tired but otherwise has no other complaints or concerns at this time. Exam Narrative Exam Narrative: Chronically ill appearing older gentleman laying in bed in no acute distress, lethargic but awakes to verbal stimuli, oriented to person and place, lungs with course breath sounds in bilateral bases, heart RRR, abdomen soft, non-tender, non-distended Objective Last Vital Signs Temp 97.5 F L 03/13/24 08:01 Pulse 69 03/13/24 10:00 Resp 12 03/13/24 10:00 BP 130/59 L 03/13/24 10:00 Pulse Ox 93 03/13/24 10:00 Laboratory Results - last 24 hr 03/12/24 03/12/24 03/13/24 11:00 14:34 05:57 WBC 6.25 RBC 3.07 L Hgb 8.6 L Hct 27.3 L MCV 89 MCH 28.0 MCHC 31.5 L RDW 14.6 H Plt Count 264 MPV 10.7 Sodium 151 H Potassium 3.6 Chloride 115 H Carbon Dioxide 30.2 Anion Gap 5.8 BUN 51 H Creatinine 1.1 Est GFR (CKD-EPI 2020) 71.32 Glucose 275 H Calcium 8.4 L MRSA (TEM-PCR) Negative Time Spent with Patient Time Spent with Patient: >50 minutes Time was spent: preparing to see the patient(eg.review tests), obtaining and/or reviewing separately otained hiistory, ordering medications,tests, procedures, referring, communicating with other health rn progressive care unit, indepentently interpreting results, counseling the patient and care coordination
--- NOTE | 2024-03-13 11:54 | W.NUTRFU ---
Date of service: 03/13/24 Time of Service: 11:54 Nutrition Note NOTE: Pt admitted to ICU from swing bed status due to PNA, UTI , septic shock. Pt weight history shows an 8.7kg loss of weight over the last 2 weeks, which is a 12% loss of bodyweight. Reduced intake recorded during this time with inconsistent amounts ranging from 0-75% of meals taken. Pt acknowledges with head shakes that his appetite has been poor lately. Pt had been on 30mg mirtazapine earlier in his stay which doesn't seem to be a current order. Pt nodded in approval with my suggestion to more ONS drinks on trays for extra protein and kcals with meals or can use between if he finds them easier to take - will need assistance with taking fluids. Visually there is severe loss of subq fat in the orbital and buccal fat pads with noticeable moderate/severe wasting to the temporal region with sunken eyes and prominent zygomatic bone. Pt meets criteria for diagnosis of Severe Malnutrition ( E43) related to inadequate protein-energy intake in the setting of acute on chronic illness/injury (recent septic shock, UTI, PNA on top of his long standing respiratory health issues and recent affects from CVA and long-term hospital stay >3 months), as evidenced by a 12% loss of body weight in <1 month, reduced energy intake to meet <50% of energy needs for at lest the last 5 days, and the observation of severe losses in subq fat and muscle in visual assessment. Intervention: Will offer carb control boost ONS TID wtih meals trays for patient to take with assistance. Recommend Liquid protein TID to help supply 45g protein daily along with po intake and what he can tolerate from ONS drinks. Recommend multivitamin with minerals be administered along with restarting mirtazapine at 30mg HS. Will monitor weight, intake, labs. Time Spent in Nutritional Counseling and Treatment: 15 minutes
[2024-03-13] MEDS: Insulin Aspart 300 UNITS/3 ML PEN SC (12:20)
--- NOTE | 2024-03-13 17:20 | SPP_ITS ---
Date of service: 03/13/24 Time of Service: 17:21 Subjective Ed was contacted at bedside during dinner meal this evening with CORRECTIONS SPECIALIST present. Per CORRECTIONS SPECIALIST, patient chronically with frequent refusal of aspiration precautions such as oral care, upright positioning (including after meals). Ed appears frustrated this date, refusing assistance this meal and not appearing receptive to feedback for small bite size, etc. Objective/Assessment/Plan Objective Treatment Techniques & Outcomes: PO trials: Thin liquids x2 sips. Puree x 7 bites. Further PO trials refused. Positioning: ~80 degrees upright. patient refuses further upright position. Noting impulsive bite sizes despite cues. Frustration. Patient with variably absent vs delayed pharyngeal initiation. No cough, though noting mild we voice quality throughout. Patient/Caregiver/Staff Education: Reviewed recommendations as below. Assessment Session focused on strategy training and education with RN/patient regarding risk management strategies. Session complicated by patient refusals. Reiterated recommendations for ensure thickened to pudding consistency, and feedback to kitchen when purees on trays are not thick enough. Overall, Ed is considered to be at chronic high risk for aspiration, currently exacerbated by sedentary and deconditioned status as well as frequent refusal of feeding assistance, risk management precautions such as oral care and upright positioning. Recommend continue PO in small amounts, as outlined below, with very strict aspiration precautions in place to the best of RN ability. Recommend discontinue PO with decline in status, worsening respiratory status, or with frequent overt symptoms of aspiration. Plan Plan: Patient to be followed while on unit. RECOMMENDATIONS: Small amounts - for pleasure/therapy. 4-6oz snacks frequently SOLIDS: 4-Pureed Solids (applesauce, jello, Ensure thickened to be pudding consistency) LIQUIDS: 0-Thin Liquids via tsp, Ice chips OK for pleasure too MEDICATIONS: Crushed (whole if v small) in applesauce. Alter medications only as advised by MD or Pharmacist RISK MANAGEMENT: [place] upright 90 degrees for all PO intake . Stay upright 30 min after meals. HOB elevated 30 degrees at all times Very small/slow bites and sips PO only when alert/awake Oral hygiene before/after PO. Application of oral lubricating gel encouraged at end of mouthcare following PO. Level of Assistance/Supervision: 1:1 close supervision/assist for all PO intake PO intake only when awake/alert? Strategies/Adaptations/Assistive Equipment: Posture/Positioning Needs: Maintain upright position at least 30 minutes after meals Sleep with head of bed elevated 30 degrees TIME SPENT: 17:05-17:25 (20min)
[2024-03-13] MEDS: Atorvastatin 40 MG TAB 80 MG PO (21:07)
[2024-03-14 07:33] VITALS: BP 159/61; PULSE 79; RESP 18; TEMP 36.2; O2SAT 94
[2024-03-14] MEDS: Normal Saline Flush 10 ML SYR IVP (08:23)
[2024-03-14] MEDS: Enoxaparin 40 MG/0.4 ML SYR SC (08:24)
[2024-03-14] MEDS: Aspirin E.C. 81 MG TABEC PO (08:25)
[2024-03-14] MEDS: Cholecalciferol (Vitamin D3) 1,000 UNIT TAB 1000 UNITS PO (08:27)
[2024-03-14] MEDS: Esomeprazole 40 MG CAPCR PO (08:27)
[2024-03-14] MEDS: Docusate Sodium 100 MG CAP 200 MG PO (08:27)
[2024-03-14] MEDS: Ticagrelor 90 MG TAB PO (08:27)
[2024-03-14] MEDS: cefTRIAXone 1 GM/50 ML BAG IVPB (08:40)
[2024-03-14] MEDS: Insulin Glargine 300 UNITS/3 ML PEN 15 UNITS SC (09:01)
[2024-03-14 10:52] VITALS: BP 166/63; PULSE 87; RESP 17; TEMP 36.4; O2SAT 95
[2024-03-14 15:06] VITALS: BP 139/66; PULSE 72; RESP 18; TEMP 36.4; O2SAT 92
--- NOTE | 2024-03-14 15:49 | W.PM.PROGNOT ---
Date of Service Date of service: 03/14/24 Time of Service: 10:40 Assessment and Plan Assessment and plan (1) Septic shock: Status: Acute Assessment and plan: -admitted from swing bed status early 03/12 with septic shock with tachycardia, leukocytosis and hypotension requiring levophed due to hospital acquired PNA -He responded to IV fluid resuscitation, stabilized with addition of norepinephrine infusion that stopped later on 03/12. -He is on broad-spectrum antibiotics to cover possible UTI with urinary outlet obstruction and Riojas catheter placed as well as hospital-acquired pneumonia now confirmed on x-ray. -continue cefepime and vanc, blood cultures NGTD x 24hr -had required HFNC and BiPAP but weaned to room air (2) Acute hypoxic respiratory failure: Status: Acute Assessment and plan: -as noted above (3) Bilateral pneumonia: Status: Acute Assessment and plan: -as noted above Qualifiers: Lung location: lower lobe of lung Pneumonia type: due to unspecified organism Qualified Code(s): J18.9 - Pneumonia, unspecified organism (4) UTI (urinary tract infection): Status: Acute Assessment and plan: -Urine culture is growing proteus, sensitivities pending. -Has Riojas catheter for bladder outlet obstruction and urology is seeing as needed. -He was on Augmentin which has been discontinued. -Cefepime should cover proteus Qualifiers: Hematuria presence: with hematuria Urinary tract infection type: acute cystitis Qualified Code(s): N30.01 - Acute cystitis with hematuria (5) Benign prostatic hyperplasia with urinary retention: Status: Chronic Assessment and plan: Continue Riojas catheter for urinary retention with urology consultation ongoing. (6) Type 2 diabetes mellitus: Status: Chronic Assessment and plan: Reasonably controlled on glargine at bedtime and qAC (or every 6 hours if patient is not waking up to eat) moderate sliding scale of short acting insulin. 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 -he as been weaning to the lower dose of methadone, down to 40mg and he hasn't gotten this regularly over the past few days. Still he is not in withdrawal. -Goal to keep comfortable, treat pain, but wean methadone as we are able. -I offered transition to suboxone, but he is hesitant. This would make placement much easier. 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 -Ongoing PT and OT with speech therapy to reevaluate swallow with patient's pneumonia. -He is at high risk for aspiration, appreciate speech therapy input. (9) Hyperlipidemia: Status: Chronic Assessment and plan: Continue statin therapy. Qualifiers: Hyperlipidemia type: mixed hyperlipidemia Qualified Code(s): E78.2 - Mixed hyperlipidemia (10) Hypothyroidism (acquired): Status: Chronic Assessment and plan: Continue supplementation without change. (11) Failure to thrive in adult: Status: Chronic Assessment and plan: Patient needs continued nursing care once he is out of his acute decompensation. Placement is ongoing and family appears to be engaged with this plan especially the daughter though there is still some family dysfunction. His CODE STATUS may to be reevaluated with the patient having a prolonged hospital stay with recurrent acute decompensation and poor prognosis for change. Palliative care is seeing Mr. Caballero as well. Subjective Subjective Interval history since last seen: Events: Per RN, Ed not cooperative and verbally explosive at times with routine care. He spilled his methadone without consuming it. He declined to re-dose the 40mg Seen by speech therapist, but not compliant with feeding suggestions. Ed does not offer new complaints when when asked. He responds no to inquiry about new pain. Exam Narrative Exam Narrative: Chronically ill appearing older gentleman laying in bed in no acute distress, lethargic but awakes to verbal stimuli, oriented to person and place, lungs with course breath sounds in bilateral bases, diffusely deminished, but no rales/wheeze. heart RRR, abdomen soft, non-tender, non-distended. Right arm and legs contracted, trace sloane edema in ankles. Objective Last Vital Signs Temp 36.4 C L 03/14/24 15:06 Pulse 72 03/14/24 15:06 Resp 18 03/14/24 15:06 BP 139/66 03/14/24 15:06 Pulse Ox 92 03/14/24 15:06 Time Spent with Patient Time Spent with Patient: >50 minutes Time was spent: preparing to see the patient(eg.review tests), obtaining and/or reviewing separately otained hiistory, ordering medications,tests, procedures, referring, communicating with other health primary care md, indepentently interpreting results and care coordination
[2024-03-14 19:26] VITALS: BP 136/93; PULSE 81; RESP 16; TEMP 36; O2SAT 97
[2024-03-15 00:06] VITALS: BP 155/61; PULSE 95; RESP 16; TEMP 36.5; O2SAT 92
[2024-03-15 03:27] VITALS: BP 169/69; PULSE 68; RESP 16; TEMP 35.8; O2SAT 92
[2024-03-15 07:55] VITALS: BP 143/76; PULSE 95; RESP 18; TEMP 36.6; O2SAT 94
[2024-03-15] MEDS: Methadone Liquid 10 MG/ML 30 MG PO (08:41)
[2024-03-15] MEDS: Cholecalciferol (Vitamin D3) 1,000 UNIT TAB 1000 UNITS PO (08:42)
[2024-03-15] MEDS: Ticagrelor 90 MG TAB PO ×2 (08:43→21:20)
[2024-03-15] MEDS: Docusate Sodium 100 MG CAP 200 MG PO (08:43)
[2024-03-15] MEDS: Enoxaparin 40 MG/0.4 ML SYR SC (08:43)
[2024-03-15] MEDS: Esomeprazole 40 MG CAPCR PO (08:43)
[2024-03-15] MEDS: Aspirin E.C. 81 MG TABEC PO (08:43)
[2024-03-15] MEDS: Insulin Glargine 300 UNITS/3 ML PEN 15 UNITS SC (08:44)
[2024-03-15] MEDS: Normal Saline Flush 10 ML SYR IVP ×2 (08:45→21:37)
[2024-03-15] MEDS: cefTRIAXone 1 GM/50 ML BAG IVPB (08:45)
[2024-03-15 10:54] LABS: Abs Immature Grans 0.08 10^3/uL (0.0-0.06); Absolute Basophil Count 0.02 10^3/uL (0.0-0.2); Absolute Eosinophil Count 0.11 10^3/uL (0.0-0.7); Absolute Lymphocyte Count 1.04 10^3/uL (1.2-3.4); Absolute Monocyte Count 0.69 10^3/uL (0.1-0.8); Absolute Neutrophil Count 6.87 10^3/uL (1.2-6.7); Anion Gap 9.3 mmol/L (3-11); BUN 30 mg/dL (7-18); Basophils % 0.2; CO2 26.7 mmol/L (21.0-32.0); CREATININE 0.7 mg/dL (0.70-1.30); Calcium 8.3 mg/dL (8.5-10.1); Chloride 110 mmol/L (98-107); Eosinophils % 1.2; Glucose 179 mg/dL (74-106); HCT 31.6 % (40.0-50.0); HGB 10.4 g/dL (13.5-17.5); Immature Grans % 0.9; Lymphocytes % 11.8; MCH 28.3 pg (27.0-33.0); MCHC 32.9 % (32.0-36.0); MCV 86 fL (80-95); MPV 10.1 fL (8.0-11.0); Monocytes % 7.8; Neutrophils % 78.1; Platelet Count 369 10^3/uL (130-400); RBC 3.68 10^6/uL (4.36-5.78); RDW-SD 43.8 fL; Sodium 146 mmol/L (136-145); WBC 8.81 10^3/uL (4.4-10.8)
[2024-03-15 10:58] LABS: Potassium 2.9 mmol/L (3.5-5.1)
[2024-03-15 11:18] VITALS: BP 149/64; PULSE 70; RESP 17; TEMP 36.4; O2SAT 94
--- NOTE | 2024-03-15 11:44 | W.PM.PROGNOT ---
Date of Service Date of service: 03/15/24 Time of Service: 10:00 Assessment and Plan Assessment and plan (1) Septic shock: Status: Acute Assessment and plan: -admitted from swing bed status early 03/12 with septic shock with tachycardia, leukocytosis and hypotension requiring levophed due to hospital acquired PNA related to aspiration event. -He responded to IV fluid resuscitation, stabilized with addition of norepinephrine infusion that stopped later on 03/12. -He is on broad-spectrum antibiotics to cover possible UTI with urinary outlet obstruction and Riojas catheter placed as well as hospital-acquired pneumonia now confirmed on x-ray. -Initially on vancomycin/cefepime, MRSA swab negative. Deescalated antibiotics to ceftriaxone later on 03/12, can stop today per her recommendation after 3 days. blood cultures NGTD x 72hr -had required HFNC and BiPAP but weaned to room air within 24 hours. (2) Acute hypoxic respiratory failure: Status: Acute Assessment and plan: -as noted above (3) Bilateral pneumonia: Status: Acute Assessment and plan: -as noted above, aspiration event, recovered quickly to baseline so stopping antibiotics. Qualifiers: Pneumonia type: due to unspecified organism Lung location: lower lobe of lung Qualified Code(s): J18.9 - Pneumonia, unspecified organism (4) UTI (urinary tract infection): Status: Acute Assessment and plan: -Urine culture is growing proteus, sensitivitie to cephalosporins -Has Riojas catheter for bladder outlet obstruction and urology is seeing as needed. -He was on Augmentin which has been discontinued. -Ceftriaxone also covered proteus, can stop today Qualifiers: Urinary tract infection type: acute cystitis Hematuria presence: with hematuria Qualified Code(s): N30.01 - Acute cystitis with hematuria (5) Benign prostatic hyperplasia with urinary retention: Status: Chronic Assessment and plan: Continue Riojas catheter for urinary retention with urology consultation ongoing. (6) Type 2 diabetes mellitus: Status: Chronic Assessment and plan: Reasonably controlled on glargine at bedtime and qAC (or every 6 hours if patient is not waking up to eat) moderate sliding scale of short acting insulin. Qualifiers: Diabetes mellitus termite treater insulin use: with termite treater use Diabetes mellitus complication status: with neurologic complications Diabetes mellitus complication detail: with polyneuropathy Qualified Code(s): E11.42 - Type 2 diabetes mellitus with diabetic polyneuropathy; Z79.4 - terminal superintendent (current) use of insulin (7) Opiate dependence, continuous: Status: Chronic Assessment and plan: -has had recurrent episodes of oversedation or appearing as such on chronic methadone and hydrocodone. -he as been weaning to the lower dose of methadone, down to 40mg and he hasn't gotten this regularly over the past few days. Still he is not in withdrawal. Given 30mg today -Goal to keep comfortable, treat pain, but wean methadone as we are able. -I offered transition to suboxone, but has had bad experience with this and naloxone on his allergy list. -Given he will end up in a controlled setting of SNF, we decided to taper off methadone, just treat pain with regimen that includes opioids, which would stave off withdrawal (8) Chronic pain: Status: Chronic Assessment and plan: He had documented multifactorial chronic pain. Gabapentin being held after oversedation. After a discussion with Mr. Caballero this morning, I am transitioning off methadone to MS Rob[place]. Equivalent to 40mg methadone would be somewhere between 120mg morphine and 400mg morphine. Will treat at the low end (60mg BID) and monitor, has prn hydrocodone 10mg as well. 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 -Ongoing PT and OT with speech therapy to reevaluate swallow with patient's pneumonia. -He is at high risk for aspiration, appreciate speech therapy input. (10) Hyperlipidemia: Status: Chronic Assessment and plan: Continue statin therapy. Qualifiers: Hyperlipidemia type: mixed hyperlipidemia Qualified Code(s): E78.2 - Mixed hyperlipidemia (11) Hypothyroidism (acquired): Status: Chronic Assessment and plan: Continue supplementation without change. (12) Hypokalemia: Status: Acute Assessment and plan: He is having some pain in his IV with the ceftriaxone, so I will try to supplument this orally. (13) Constipation due to opioid therapy: Status: Acute Assessment and plan: He doesn't like lactulose and isn't taking it. Will resume prn PEG and add scheduled senna along with docusate. (14) Failure to thrive in adult: Status: Chronic Assessment and plan: Patient needs continued care once he is out of his acute decompensation. Placement is ongoing with possible long term placement pending 03/25/24. His CODE STATUS may to be reevaluated with the patient having a prolonged hospital stay with recurrent acute decompensation and poor prognosis for change. Palliative care is seeing Mr. Caballero as well. Subjective Subjective Patient reports: no new complaints; denies vomiting or fever Interval history since last seen: 24 hr events: None He has been feeling okay. He hasn't had a BM, and has been refusing the lactulose. he is hungry, eating some, but not a lot. He is breathing more comfortably. His pain is not bad at rest, but gets severe pain with movement of right shoulder. Exam Narrative Exam Narrative: Chronically ill appearing older gentleman laying in bed in no acute distress, more alert today, oriented to person and place, lungs with course breath sounds in bilateral bases, no rales/wheeze (though exam limited to anterior/lateral lung aguilar today). heart RRR, abdomen soft, non-tender, non-distended. Right arm and legs contracted, trace sloane edema in ankles. Objective Last Vital Signs Temp 36.4 C L 03/15/24 11:18 Pulse 70 03/15/24 11:18 Resp 17 03/15/24 11:18 BP 149/64 H 03/15/24 11:18 Pulse Ox 94 03/15/24 11:18 Laboratory Results - last 24 hr 03/15/24 10:40 WBC 8.81 RBC 3.68 L Hgb 10.4 L Hct 31.6 L MCV 86 MCH 28.3 MCHC 32.9 RDW 14.0 Plt Count 369 MPV 10.1 Immature Gran % 0.9 Neutrophils % 78.1 Lymphocytes % 11.8 Monocytes % 7.8 Eosinophils % 1.2 Basophils % 0.2 Nucleated RBC % 0.0 Absolute Neutrophils 6.87 H Absolute Lymphocytes 1.04 L Absolute Monocytes 0.69 Absolute Eosinophils 0.11 Absolute Basophils 0.02 Sodium 146 H Potassium 2.9 L* Chloride 110 H Carbon Dioxide 26.7 Anion Gap 9.3 BUN 30 H Creatinine 0.7 Est GFR (CKD-EPI 2020) 97.90 Glucose 179 H Calcium 8.3 L Time Spent with Patient Time Spent with Patient: >50 minutes Time was spent: preparing to see the patient(eg.review tests), obtaining and/or reviewing separately otained hiistory, ordering medications,tests, procedures, referring, communicating with other health child day care teacher, indepentently interpreting results, counseling the patient and care coordination
[2024-03-15] MEDS: Insulin Aspart 300 UNITS/3 ML PEN SC ×2 (12:09→17:20)
[2024-03-15] MEDS: HYDROcodone 10/Acetaminophen 325 TAB PO ×2 (15:44→21:20)
[2024-03-15 15:58] VITALS: BP 143/77; PULSE 92; RESP 17; TEMP 36.8; O2SAT 94
[2024-03-15 21:10] VITALS: BP 167/85; PULSE 104; RESP 16; TEMP 36.8; O2SAT 94
[2024-03-15] MEDS: Atorvastatin 40 MG TAB 80 MG PO (21:20)
[2024-03-16 03:07] VITALS: BP 168/79; PULSE 95; RESP 16; TEMP 36.1; O2SAT 94
[2024-03-16] MEDS: Potassium Chloride 20 MEQ TABCR PO (06:16)
[2024-03-16 08:00] VITALS: BP 145/74; PULSE 88; RESP 16; TEMP 36.3; O2SAT 96
[2024-03-16 08:40] LABS: HCT 32.6 % (40.0-50.0); HGB 10.6 g/dL (13.5-17.5); MCHC 32.5 % (32.0-36.0); MCV 86 fL (80-95); MPV 9.8 fL (8.0-11.0); Platelet Count 379 10^3/uL (130-400); RBC 3.79 10^6/uL (4.36-5.78); RDW-SD 43.9 fL; WBC 11.62 10^3/uL (4.4-10.8)
[2024-03-16 08:50] LABS: Anion Gap 11.4 mmol/L (3-11); BUN 31 mg/dL (7-18); CO2 25.6 mmol/L (21.0-32.0); CREATININE 0.8 mg/dL (0.70-1.30); Calcium 8.2 mg/dL (8.5-10.1); Chloride 108 mmol/L (98-107); Estimated GFR 94.03 (mL/min/1.73m2); Glucose 195 mg/dL (74-106); Potassium 3.1 mmol/L (3.5-5.1); Sodium 145 mmol/L (136-145)
[2024-03-16] MEDS: Senna TAB 1 TAB PO (09:18)
[2024-03-16] MEDS: Cholecalciferol (Vitamin D3) 1,000 UNIT TAB 1000 UNITS PO (09:18)
[2024-03-16] MEDS: Docusate Sodium 100 MG CAP 200 MG PO (09:18)
[2024-03-16] MEDS: amLODIPine 5 MG TAB PO (09:18)
[2024-03-16] MEDS: Aspirin E.C. 81 MG TABEC PO (09:18)
[2024-03-16] MEDS: Ticagrelor 90 MG TAB PO ×2 (09:18→21:03)
[2024-03-16] MEDS: Esomeprazole 40 MG CAPCR PO (09:18)
[2024-03-16] MEDS: Insulin Aspart 300 UNITS/3 ML PEN SC ×3 (09:19→21:06)
[2024-03-16] MEDS: Insulin Glargine 300 UNITS/3 ML PEN 15 UNITS SC (09:19)
[2024-03-16] MEDS: Normal Saline Flush 10 ML SYR IVP ×2 (09:20→21:03)
[2024-03-16] MEDS: HYDROcodone 10/Acetaminophen 325 TAB PO (10:44)
[2024-03-16 12:24] VITALS: BP 138/79; PULSE 91; RESP 14; TEMP 36.1; O2SAT 96
--- NOTE | 2024-03-16 13:06 | W.SPSTP ---
Date of service: 03/16/24 Time of Service: 08:00 Subjective Ed was contacted at bedside during breakfast meal with RN present. He was tolerating room air and in high spirits initially, though expressed discomfort requiring repositioning soon into breakfast, and became tearful/frustrated. Objective/Assessment/Plan Objective Treatment Techniques & Outcomes: PO Trials: Thin liquids via provale cup x3 sips Puree- Cream of wheat x 1 bite Minced/Moist- Fig [place]royo (2 bites), Diced fruit (6 bites) Positionin degrees upright in bed, requiring repositioning due to discomfort, with transition to ~80 degrees Respiratory Status: tolerating room air Oral Care: Refused toothbrush as well as swab in mouthwash, indicating it was uncomfortable/painful. Allowed for light cleaning of tongue surface and cheeks with damp swab prior to PO. Oral Phase Findings: Prolonged oral phase (pt edentulous) Pharyngeal Phase Findings: Wet vocal quality is appreciated prior to session Wet cough noted x1 with thins Delayed swallow onset Decreased hyolaryngeal movement Assessment Ed appears close to pre-hypoxia baseline in regards to respiratory status and cognitive-communication status this date. Recommend upgrade diet to his baseline prior to this recent hypoxia event- L5 Minced/Moist and Thin liquids. Ed is considered at chronic high risk for aspiration-related illness, even with this modified diet and with precautions in place. Risk is further increased in light of patient inconsistent compliance with recommendations, including allowance of oral care. Ongoing precautions listed below. Recommendations Diet: 5-Minced & Moist (Mechancially Altered/Ground) Liquids: 0-Thin Liquids Other: MEDICATIONS: 1 at a time whole (if small) or Crushed in applesauce or one at at time with sips Alter medications only as advised by MD or Pharmacist RISK MANAGEMENT: [place] upright 90 degrees for all PO intake . Stay upright 30 min after meals. HOB elevated 30 degrees at all times Very small/slow bites and sips PO only when alert/awake Oral hygiene before/after PO as patient allows Level of Assistance/Supervision: 1:1 close supervision/assist for all PO intake PO intake only when awake/alert Strategies/Adaptations/Assistive Equipment: Posture/Positioning Needs: Maintain upright position at least 30 minutes after meals Sleep with head of bed elevated 30 degrees
[2024-03-16] MEDS: Potassium Citrate 1080 MG TABCR PO ×2 (15:10→21:03)
[2024-03-16 15:25] VITALS: BP 155/81; PULSE 88; RESP 16; TEMP 36.3; O2SAT 94
--- NOTE | 2024-03-16 17:04 | PGE_ITS ---
Date of Service Date of service: 03/16/24 Time of Service: 11:30 Assessment and Plan Assessment and plan (1) Septic shock: Status: Acute Assessment and plan: -admitted from swing bed status early 03/12 with septic shock with tachycardia, leukocytosis and hypotension requiring levophed due to hospital acquired PNA related to aspiration event. -He responded to IV fluid resuscitation, stabilized with addition of norepinephrine infusion that stopped later on 03/12. -He is on broad-spectrum antibiotics to cover possible UTI with urinary outlet obstruction and Riojas catheter placed as well as hospital-acquired pneumonia now confirmed on x-ray. -Initially on vancomycin/cefepime, MRSA swab negative. Deescalated antibiotics to ceftriaxone later on 03/12, Stopped 03/15 per pulmonology recommendation after 3 days. blood cultures NGTD x 72hr -had required HFNC and BiPAP but weaned to room air within 24 hours. (2) Acute hypoxic respiratory failure: Status: Acute Assessment and plan: -as noted above, resolved quickly (3) Bilateral pneumonia: Status: Acute Assessment and plan: -as noted above, aspiration event, recovered quickly to baseline, now off antibiotics Qualifiers: Pneumonia type: due to unspecified organism Lung location: lower lobe of lung Qualified Code(s): J18.9 - Pneumonia, unspecified organism (4) UTI (urinary tract infection): Status: Acute Assessment and plan: -Urine culture is growing proteus, sensitivitie to cephalosporins -Has Riojas catheter for bladder outlet obstruction and urology is seeing as needed. -s/p 3 days of ceftriaxone Qualifiers: Urinary tract infection type: acute cystitis Hematuria presence: with hematuria Qualified Code(s): N30.01 - Acute cystitis with hematuria (5) Benign prostatic hyperplasia with urinary retention: Status: Chronic Assessment and plan: Continue Riojas catheter for urinary retention with urology consultation ongoing. (6) Type 2 diabetes mellitus: Status: Chronic Assessment and plan: Reasonably controlled on glargine at bedtime and qAC (or every 6 hours if patient is not waking up to eat) moderate sliding scale of short acting insulin. Qualifiers: Diabetes mellitus correction insulin use: with racing secretary and handicapper use Diabetes mellitus complication status: with neurologic complications Diabetes mellitus complication detail: with polyneuropathy Qualified Code(s): E11.42 - Type 2 diabetes mellitus with diabetic polyneuropathy; Z79.4 - senior care (current) use of insulin (7) Opiate dependence, continuous: Status: Chronic Assessment and plan: -has had recurrent episodes of oversedation on chronic methadone and hydrocodone (was also on clonezepam and gabapentin) -hadweaned to the lower dose of methadone, down to 40mg, 30 mg yesterday. -I offered transition to suboxone, but has had bad experience with this and naloxone on his allergy list. -Given he will end up in a controlled setting of SNF, we decided to stop methadone, just treat pain with regimen that includes opioids, which would stave off withdrawal (8) Chronic pain: Status: Chronic Assessment and plan: He had documented multifactorial chronic pain. Gabapentin being held after oversedation. After a discussion with Mr. Caballero 03/15, transitioning off methadone to MS Robina. Equivalent to 40mg methadone would be somewhere between 120mg morphine and 400mg morphine. Will treat at the low end (60mg BID) and monitor, has prn hydrocodone 10mg as well. Has only needed one prn hydrocodone and he is not in clinical opioid withdrawal, though some increase in anxiety. Monitor closely and keep comfortable. 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 -Ongoing PT and OT with speech therapy to reevaluate swallow with patient's pneumonia. -He is at high risk for aspiration, appreciate speech therapy input. (10) Hyperlipidemia: Status: Chronic Assessment and plan: Continue statin therapy. Qualifiers: Hyperlipidemia type: mixed hyperlipidemia Qualified Code(s): E78.2 - Mixed hyperlipidemia (11) Hypothyroidism (acquired): Status: Chronic Assessment and plan: Continue supplementation without change. (12) Hypokalemia: Status: Acute Assessment and plan: Still low today. Will go back to potassium citrate orally along with magnesium, as this will help prevent stones as well. (13) Constipation due to opioid therapy: Status: Acute Assessment and plan: He doesn't like lactulose and isn't taking it. Resumed prn PEG and add scheduled senna along with docusate. (14) Failure to thrive in adult: Status: Chronic Assessment and plan: Patient needs continued care once he is out of his acute decompensation. Placement is ongoing with possible home care placement pending 03/25/24. [facility] is [facility] Mr. Caballero as well. He was on mirtazipine previously, seemed to be helping appetite and mood so resumed today. Subjective Subjective Patient reports: denies diarrhea, nausea, vomiting or shortness of breath Interval history since last seen: 24: Transitioned to MS Robina, methadone stopped Ed denied pain when I saw him. Per RN got prn hydrocodone 10mg x 1 for repositioning. He does express some fear about not being on methadone. He has been much more alert per nurses, though more tearful at times. He had BM yesterday, needed a little help with disimpaction. Exam Narrative Exam Narrative: Chronically ill appearing older gentleman laying in bed in no acute distress, more alert again today, oriented to person and place, lungs with course breath sounds in bilateral bases, no rales/wheeze. heart RRR, abdomen soft, non-tender, non-distended. Right arm and legs contracted, trace sloane edema in ankles. Heal protectors on, no open wounds. Objective Last Vital Signs Temp 36.3 C L 03/16/24 15:25 Pulse 88 03/16/24 15:25 Resp 16 03/16/24 15:25 BP 155/81 H 03/16/24 15:25 Pulse Ox 94 03/16/24 15:25 Laboratory Results - last 24 hr 03/16/24 08:33 WBC 11.62 H RBC 3.79 L Hgb 10.6 L Hct 32.6 L MCV 86 MCH 28.0 MCHC 32.5 RDW 14.0 Plt Count 379 MPV 9.8 Sodium 145 Potassium 3.1 L Chloride 108 H Carbon Dioxide 25.6 Anion Gap 11.4 H BUN 31 H Creatinine 0.8 Est GFR (CKD-EPI 2020) 94.03 Glucose 195 H Calcium 8.2 L Time Spent with Patient Time Spent with Patient: 35-49 minutes Time was spent: preparing to see the patient(eg.review tests), obtaining and/or reviewing separately otained hiistory, ordering medications,tests, procedures, referring, communicating with other health weekend caregiver, indepentently interpreting results, counseling the patient and care coordination
[2024-03-16 21:00] VITALS: BP 149/73; PULSE 78; RESP 17; TEMP 36.1; O2SAT 96
[2024-03-16] MEDS: Atorvastatin 40 MG TAB 80 MG PO (21:03)
[2024-03-16] MEDS: Magnesium Oxide 400 MG TAB PO (21:03)
[2024-03-16] MEDS: Mirtazapine 15 MG TAB PO (21:04)
[2024-03-17] VITALS (8 sets, daily range): BP systolic 108–152; BP diastolic 61–81; PULSE 80–88; RESP 15–18; TEMP 35.9–36.6; O2SAT 93–98
[2024-03-17 07:03] LABS: HCT 31.6 % (40.0-50.0); HGB 10.2 g/dL (13.5-17.5); MCH 27.7 pg (27.0-33.0); MCHC 32.3 % (32.0-36.0); MCV 86 fL (80-95); MPV 9.9 fL (8.0-11.0); Platelet Count 347 10^3/uL (130-400); RBC 3.68 10^6/uL (4.36-5.78); RDW-SD 43.9 fL; WBC 11.35 10^3/uL (4.4-10.8)
[2024-03-17 07:13] LABS: Anion Gap 8.7 mmol/L (3-11); BUN 29 mg/dL (7-18); CO2 28.3 mmol/L (21.0-32.0); CREATININE 0.7 mg/dL (0.70-1.30); Chloride 110 mmol/L (98-107); Glucose 208 mg/dL (74-106); Magnesium 1.9 mg/dL (1.8-2.4); Potassium 3.2 mmol/L (3.5-5.1); Sodium 147 mmol/L (136-145)
[2024-03-17] MEDS: Magnesium Oxide 400 MG TAB PO ×2 (07:51→20:48)
[2024-03-17] MEDS: Cholecalciferol (Vitamin D3) 1,000 UNIT TAB 1000 UNITS PO (07:52)
[2024-03-17] MEDS: Senna TAB 1 TAB PO (07:52)
[2024-03-17] MEDS: Docusate Sodium 100 MG CAP 200 MG PO (07:52)
[2024-03-17] MEDS: amLODIPine 5 MG TAB PO (07:52)
[2024-03-17] MEDS: Enoxaparin 40 MG/0.4 ML SYR SC (07:52)
[2024-03-17] MEDS: Potassium Citrate 1080 MG TABCR PO ×3 (07:52→20:48)
[2024-03-17] MEDS: Ticagrelor 90 MG TAB PO ×2 (07:52→20:48)
[2024-03-17] MEDS: Aspirin E.C. 81 MG TABEC PO (07:52)
[2024-03-17] MEDS: Esomeprazole 40 MG CAPCR PO (07:52)
[2024-03-17] MEDS: Insulin Glargine 300 UNITS/3 ML PEN 15 UNITS SC (07:53)
[2024-03-17] MEDS: Insulin Aspart 300 UNITS/3 ML PEN SC ×2 (07:54→12:57)
[2024-03-17] MEDS: Normal Saline Flush 10 ML SYR IVP ×2 (07:55→20:48)
--- NOTE | 2024-03-17 08:57 | CMPROGNOTE_ITS ---
Date of service: 03/17/24 Time of Service: 08:57 Care Management Progress Note Progress Note Text Progress Note Text: S/O: Ed was sitting up in bed when CM met with him. He had an episode this morning, similar to one in October. where he stopped verbally responding and just stared into space. Even with a sternal rub he did not immediately respond. Per his nurse, the episode lasted for about 5-[address] scan has been ordered. Ed's methadone has now been completely stopped. He continues to receive MS Contin 60 mg bid and, to date, does not appear to have any symptoms of withdrawal. CM was able to obtain Ed's signature for Social Security to be able to change his address. This was necessary for him to be able to transition to his [facility] home. A: Ed is a 73 year old man admitted on 10/31/23 with pneumonia . P: Ed will likely transition to an [facility] ([facility]) home in [place] when all arrangements have been finalized. CM will continue to follow and support Ed and his discharge planning needs. SDOH(Care Management) Screening Will the Patient Participate in the Screening?: Unable to obtain
--- NOTE | 2024-03-17 09:02 | PDOC.CMPRO ---
Date of service: 03/16/24 Time of Service: 09:02 Care Management Progress Note Progress Note Text Progress Note Text: S/O:Ed was sitting up in bed when CM met with him. He was smiling and engaged easily with CM. Ed has undergone some medication adjustments and is now being tapered off of Methadone. He has been receiving Methadone 60 mg BID for a long time. He has been tapered down to 30 mg daily so far with the addition of MS Contin 60mg BID. It is not clear if he will be tapered off the Methadone completely or continue to receive a reduced dose along with other opioids. Plans remain for Ed to transition to his [facility] home in [place] next week.. A: Ed is a 73 year old man admitted on 10/31/23 with pneumonia . P: Ed will likely transition to an [facility] ([facility]ult Family [facility]) home in [place] when all arrangements have been finalized. CM will continue to follow and support Ed and his discharge planning needs. SDOH(Care Management) Screening Will the Patient Participate in the Screening?: Unable to obtain
--- NOTE | 2024-03-17 10:37 | W.PM.PROGNOT ---
Date of Service Date of service: 03/17/24 Time of Service: 10:37 Assessment and Plan Assessment and plan (1) Spell of altered consciousness: Status: Acute Assessment and plan: Episode of unresponsiveness today around 10 minutes per nursing. Did not respond to sternal rub. By the time I went into room, he was responding and speaking and moving left side at his baseline. Per nursing, he did have a little more difficulty feeding himself after this event, but no new focal deficits. He denied new pain or headache. CT head with CTA head and neck negative. He has had very similar episodes in the past, had EEG in October which did not show clear seizures. I don't think this was a CVA. Seizures certainly in the ddx and make the most sense as a diagnosis. - monitor on telemetry - TIA in the differential, but he is already on treatment for secondary stroke prevention, and presentation is less c/w TIA. - Seizures, will consult neurology. Of note he was previously on benzodiazepines and is no longer due to excessive sedation. (2) Opiate dependence, continuous: Status: Chronic Assessment and plan: -has had recurrent episodes of oversedation on chronic methadone and hydrocodone (was also on clonezepam and gabapentin) -hadweaned to the lower dose of methadone, down to 40mg, 30 mg yesterday. -I offered transition to suboxone, but has had bad experience with this and naloxone on his allergy list. -Given he will end up in a controlled setting of a fdc, we decided to stop methadone, just treat pain with regimen that includes opioids, which would stave off withdrawal (3) Chronic pain: Status: Chronic Assessment and plan: He had documented multifactorial chronic pain. Gabapentin being held after oversedation. After a discussion with Mr. Caballero 03/15, transitioning off methadone to MS Contin. Equivalent to 40mg methadone would be somewhere between 120mg morphine and 400mg morphine. Will treat at the low end (60mg BID) and monitor, has prn hydrocodone 10mg as well. Has only needed one prn hydrocodone and he is not in clinical opioid withdrawal, though some increase in anxiety. Monitor closely and keep comfortable. 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 -Ongoing PT and OT with speech therapy to reevaluate swallow with patient's pneumonia. -He is at high risk for aspiration, appreciate speech therapy input. (5) Hypokalemia: Status: Acute Assessment and plan: Still low today. - 03/16 went back to potassium citrate orally along with magnesium, as this will help prevent stones as well. - Avoiding IV KCL due to pain in the IV - Give additional KCl today and follow. (6) Septic shock: Status: Acute Assessment and plan: Now resolved History: -admitted from swing bed status early 03/12 with septic shock with tachycardia, leukocytosis and hypotension requiring levophed due to hospital acquired PNA related to aspiration event. -He responded to IV fluid resuscitation, stabilized with addition of norepinephrine infusion that stopped later on 03/12. -He is on broad-spectrum antibiotics to cover possible UTI with urinary outlet obstruction and Riojas catheter placed as well as hospital-acquired pneumonia now confirmed on x-ray. -Initially on vancomycin/cefepime, MRSA swab negative. Deescalated antibiotics to ceftriaxone later on 03/12, Stopped 03/15 per pulmonology recommendation after 3 days. blood cultures NGTD x 72hr -had required HFNC and BiPAP but weaned to room air within 24 hours. (7) Acute hypoxic respiratory failure: Status: Acute Assessment and plan: -as noted above, resolved quickly (8) Bilateral pneumonia: Status: Acute Assessment and plan: -as noted above, aspiration event, recovered quickly to baseline, now off antibiotics Qualifiers: Lung location: lower lobe of lung Pneumonia type: due to unspecified organism Qualified Code(s): J18.9 - Pneumonia, unspecified organism (9) UTI (urinary tract infection): Status: Acute Assessment and plan: -Urine culture is growing proteus, sensitivitie to cephalosporins -Has Riojas catheter for bladder outlet obstruction and urology is seeing as needed. -s/p 3 days of ceftriaxone Qualifiers: Hematuria presence: with hematuria Urinary tract infection type: acute cystitis Qualified Code(s): N30.01 - Acute cystitis with hematuria (10) Benign prostatic hyperplasia with urinary retention: Status: Chronic Assessment and plan: Has Riojas catheter for urinary retention. He is at high risk for recurrent infections. He should have another trial of removal now that on less opioids. D/w Marc, start tamsulosin, plan trial on Saturday when Marc present. (11) Type 2 diabetes mellitus: Status: Chronic Assessment and plan: Reasonably controlled on glargine at bedtime and qAC (or every 6 hours if patient is not waking up to eat) moderate sliding scale of short acting insulin. 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 Qualifiers: Hyperlipidemia type: mixed hyperlipidemia Qualified Code(s): E78.2 - Mixed hyperlipidemia (13) Hypothyroidism (acquired): Status: Chronic Assessment and plan: Continue supplementation without change. (14) Constipation due to opioid therapy: Status: Acute Assessment and plan: He doesn't like lactulose and isn't taking it. Resumed prn PEG and add scheduled senna along with docusate. (15) Failure to thrive in adult: Status: Chronic Assessment and plan: Patient needs continued care once he is out of his acute decompensation. Placement is ongoing with possible home care placement pending 03/25/24. Palliative care is seeing Mr. Caballero as well. He was on mirtazipine previously, seemed to be helping appetite and mood so resumed 03/16. Subjective Subjective Patient reports: denies diarrhea, nausea, vomiting or fever Interval history since last seen: 24hr: No events No new complaints. had a bowel movement. Ate some. Denies pain now. Last prn hydrocodone given 03/16 10:44am Exam Narrative Exam Narrative: Chronically ill appearing older gentleman laying in bed in no acute distress, alert again today, oriented to person and place. Pupils ~3mm room light. lungs with course breath sounds in bilateral bases, no rales/wheeze. heart RRR, abdomen soft, mild left sided tenderness, non-distended. Right arm and legs contracted, trace sloane edema in ankles. No skin rashes, no pilorection. Heal protectors on, no open wounds. Objective Last Vital Signs Temp 36.3 C L 03/17/24 07:14 Pulse 86 03/17/24 07:14 Resp 17 03/17/24 07:14 BP 137/63 03/17/24 07:14 Pulse Ox 96 03/17/24 07:14 Laboratory Results - last 24 hr 03/17/24 06:50 WBC 11.35 H RBC 3.68 L Hgb 10.2 L Hct 31.6 L MCV 86 MCH 27.7 MCHC 32.3 RDW 14.0 Plt Count 347 MPV 9.9 Sodium 147 H Potassium 3.2 L Chloride 110 H Carbon Dioxide 28.3 Anion Gap 8.7 BUN 29 H Creatinine 0.7 Est GFR (CKD-EPI 2020) 97.90 Glucose 208 H Calcium 8.0 L Magnesium 1.9 Time Spent with Patient Time Spent with Patient: >50 minutes Time was spent: preparing to see the patient(eg.review tests), obtaining and/or reviewing separately otained hiistory, ordering medications,tests, procedures, referring, communicating with other health eye care professional, indepentently interpreting results, counseling the patient and care coordination
--- NOTE | 2024-03-17 11:33 | NUR.NOTE ---
Addendum entered by Mayte Wong RN 03/17/24 11:42: BP 149/62, Temp 36C, O2 96% on room air at 1115 vitals check. Original Note: Notified by ARABELLA Brandon at 1115 vitals check that Ed was acting different than usual, not responding appropriately. This RN to bedside to assess. Ed was unable to follow commands, not responding to verbal stimulation and staring straight ahead. Startled with sternal rub. Left side of mouth appeared droopy. Auscultated heart rate, strong and regular, HR 80s. Breathing shallow but regular. Vitals stable, BG 199. Pupils equal, round, reactive, 3 mm. Provider MD and resident care technician Bobbi notified, to bedside to assess. Ed returned to his usual state of responsiveness by the time they arrived (approximately 10 minutes later), talking and able to follow commands.
--- NOTE | 2024-03-17 12:59 | PDOC.STREC ---
Date of service: 03/17/24 Time of Service: 13:00 Speech Therapy Recommendations Report ST Recommendations: Subjective/Non-treatment Note: DINKEY OPERATOR SLAG attempting to contact patient for assessment of tray tolerance of minced/moist upgraded diet texture. Unfortunately, per RN patient appearing with AMS at time of meal, minimally verbally responsive and not initiating swallow even for puree textures, and with notably increased difficulty self-feeding than usual. DINKEY OPERATOR SLAG did step in to say hello to patient briefly, and noting similar response, patient looks at clinician and makes facial expressions for mild acknowledgement but unable to provide any Y/N or verbal responses when offering food. MD already notified at time of contact. Of note, patient with recent medication changes including morphine, hydrocodone for pain. Assessment: Given current mental status, recommend conservative/limited or hold PO per nursing discretion for dinner/breakfast, or until cognition/communication back to baseline. OK for nursing to trial single bites at mealtime to assess feeding behaviors/safety and proceed as able. Prioritize puree textures at start of meals to ensure good tolerance before offering minced/moist. DINKEY OPERATOR SLAG to re-attempt contact tomorrow to re-assess tolerance. At baseline, Ed is considered at chronic high risk for aspiration-related illness, even with this modified diet and with precautions in place. Risk is further increased in light of patient inconsistent compliance with recommendations, including allowance of oral care. Ongoing precautions listed below. Recommendations: Diet: 5-Minced & Moist (Mechancially Altered/Ground) Liquids: 0-Thin Liquids Other: MEDICATIONS: 1 at a time whole (if small) or Crushed in applesauce or one at at time with sips Alter medications only as advised by MD or Pharmacist RISK MANAGEMENT: [place] upright 90 degrees for all PO intake . Stay upright 30 min after meals. HOB elevated 30 degrees at all times Very small/slow bites and sips PO only when alert/awake Oral hygiene before/after PO as patient allows Level of Assistance/Supervision: 1:1 close supervision/assist for all PO intake PO intake only when awake/alert Strategies/Adaptations/Assistive Equipment: Posture/Positioning Needs: Maintain upright position at least 30 minutes after meals Sleep with head of bed elevated 30 degrees
[2024-03-17] MEDS: Normal Saline - Diluent 50 ML VIAL IJ (14:51)
[2024-03-17] MEDS: Omnipaque 350 MG/ML 100 ML BTL IJ (14:52)
--- NOTE | 2024-03-17 14:55 | DI.CT_ITS ---
Exam(s) CT BRAIN NECK CTA EXAM: CT BRAIN NECK CTA CLINICAL HISTORY: h/o CVA, unresponsive episode x 10 minutes. TECHNIQUE: Imaging Protocol: Axial CT angiography was performed with multi-slice acquisition and mu lti-planar and/or 3D reconstructions. CONTRAST MATERIAL: Intravenous: Omnipaque 350 Contrast volume:structured data in ml COMPARISON: CT CT HEAD WO from 01/03/2024 FINDINGS: CTA Neck W: Aortic arch anatomy: The aortic arch anatomy is conventional and there is no significant stenosis at the origin of the great vessels off of the aortic arch. No intimal flap evident. Anterior circulation: Both common carotid arteries ascend with normal luminal diameters. 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 It is not reconstituted in the neck. Flow is reconstituted at the level of the supraclinoid left ICA. On the right side of the neck there is calcified and noncalcified plaque at the carotid bulb and prox imal right ICA. Estimated at approximately 60 percent stenosis. Above this level the right ICA exhi bits normal diameter in the upper neck and is non tortuous in the upper neck and is patent in the sku ll base-carotid canal as well as in the right cavernous sinus. Posterior circulation: Both vertebral arteries originate in conventional fashion off of the subclavian arteries and there is no obvious stenosis at the origin of the vertebral arteries. Both vertebral arteries exhibit normal luminal diameters within the foramen transversarium. Both vertebral arteries contribute to the formation of the basilar artery at the skull base. CTA Brain W: Anterior circulation: The right internal carotid artery is patent within the right cavernous sinus. Supraclinoid aspect is patent. Right A1 segment is patent as are the anterior cerebral arteries and there is no aneurysm at the level the anterior communicating artery. Right middle cerebral artery is patent. The left supraclinoid ICA exhibits flow. There is thin flow in the left middle cerebral artery and l eft A1 segment. I suspect that there is cross flow from right to left here, given the occlusion of t he left internal carotid artery in the neck. Distal left MCA vessels are thin, this being area prior prominent infarction. Posterior circulation: The basilar artery ascends in the midline. Distally it gives off patent bilateral superior cerebella r arteries. Above this level the basilar artery terminates as patent bilateral posterior cerebral arteries. There is a posterior communicating artery on the right side of the [id number]. There is no evidence of aneurysm at the tip of the basilar artery nor elsewhere in the [id number]-iy-[id number] is. CT BRAIN: Previously described large area of prior infarct in the territory of the left middle cerebral artery is again noted. This appears stable There is no evidence of intracranial hemorrhage, intra or extra-axial. Ventricles are unchanged in s ize. There is no blood within the ventricular system nor within the basal cisterns. No ring enhanci ng lesions in the brain. No abnormal meningeal enhancement evident IMPRESSION: 1. 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 Flow is reconstituted at the level of the supraclinoid aspect of the left ICA within the intracranial compartment. I suspect that the nahum w seen in the left middle cerebral artery is probably coming from the right-side via the anterior com municating artery/left A1 segment. 2. There is approximately 60 percent stenosis in the carotid bifurcation and proximal right ICA in t he neck. 3. Vertebral arteries are patent. 4. Large area of encephalomalacia in the left hemisphere from prior left middle cerebral artery george tory infarct, appearing unchanged from 02/18/2024. No obvious new infarcts. No evidence of intracra nial hemorrhage, intra or extra-axial. No ring enhancing lesions in the brain. RADIATION DOSE DELIVERED: 2,111.11mGy.cm Total DLP DATA REPOSITORY: All CT scans at this facility are submitted to the National Radiology Data Registry (NRDR) Dose Index Registry (DIR) with the [employer] (A[employer]). RADIATION OPTIMIZATION: All CT scans at this facility use at least one of these dose optimization te chniques: automated exposure control; mA and/or kV adjustment per patient size (includes targeted exa ms where dose is matched to clinical indication); or iterative reconstruction.
[2024-03-17] MEDS: Tamsulosin 0.4 MG CAPCR PO (17:06)
[2024-03-17] MEDS: Mirtazapine 15 MG TAB PO (20:48)
[2024-03-17] MEDS: Potassium Chloride 20 MEQ TABCR PO (20:48)
[2024-03-17] MEDS: Atorvastatin 40 MG TAB 80 MG PO (20:48)
[2024-03-18 07:48] VITALS: BP 120/67; PULSE 91; RESP 17; TEMP 36.5; O2SAT 96
[2024-03-18] MEDS: Enoxaparin 40 MG/0.4 ML SYR SC (08:10)
[2024-03-18] MEDS: Normal Saline Flush 10 ML SYR IVP ×2 (08:10→21:43)
[2024-03-18] MEDS: Insulin Glargine 300 UNITS/3 ML PEN 15 UNITS SC (08:10)
[2024-03-18] MEDS: Insulin Aspart 300 UNITS/3 ML PEN SC ×4 (08:11→21:59)
[2024-03-18] MEDS: Esomeprazole 40 MG CAPCR PO (08:12)
[2024-03-18] MEDS: amLODIPine 5 MG TAB PO (08:12)
[2024-03-18] MEDS: Potassium Chloride 20 MEQ TABCR PO ×2 (08:13→21:43)
[2024-03-18] MEDS: Potassium Citrate 1080 MG TABCR PO (08:13)
[2024-03-18] MEDS: Ticagrelor 90 MG TAB PO ×2 (08:13→21:42)
[2024-03-18] MEDS: Magnesium Oxide 400 MG TAB PO ×2 (08:14→21:43)
[2024-03-18] MEDS: Cholecalciferol (Vitamin D3) 1,000 UNIT TAB 1000 UNITS PO (08:14)
[2024-03-18] MEDS: Tamsulosin 0.4 MG CAPCR PO (08:14)
[2024-03-18] MEDS: Senna TAB 1 TAB PO (08:14)
[2024-03-18] MEDS: Docusate Sodium 100 MG CAP 200 MG PO (08:15)
[2024-03-18] MEDS: Aspirin E.C. 81 MG TABEC PO (08:15)
--- NOTE | 2024-03-18 08:55 | PDOC.CMPRO ---
Date of service: 03/18/24 Time of Service: 08:55 Care Management Progress Note Progress Note Text Progress Note Text: S/O:Ed was sitting up in bed when CM met with him. He was awake and alert and engaged well with CM. Per staff report, Ed appears to be having more difficulty with swallowing. He was able to eat some of his breakfast today and take his morning medications however he could not swallow the PRN hydrodocone tablet he was given for pain control. Ed had a tele-visit with Neurology this afternoon and his primary care physician,Galen Hernández, also came to see Ed today. A: Ed is a 73 year old man admitted on 10/31/23 with pneumonia . P: Ed will likely transition to an A[facility] ([facility]ult Family [facility]) home in [place] when all arrangements have been finalized. CM will continue to follow and support Ed and his discharge planning needs SDOH(Care Management) Screening Will the Patient Participate in the Screening?: Unable to obtain
[2024-03-18 10:37] LABS: Anion Gap 7.7 mmol/L (3-11); BUN 33 mg/dL (7-18); CO2 28.3 mmol/L (21.0-32.0); CREATININE 0.8 mg/dL (0.70-1.30); Calcium 8.1 mg/dL (8.5-10.1); Chloride 111 mmol/L (98-107); Estimated GFR 94.03 (mL/min/1.73m2); Glucose 227 mg/dL (74-106); Potassium 3.7 mmol/L (3.5-5.1); Sodium 147 mmol/L (136-145)
[2024-03-18 11:12] VITALS: BP 126/67; PULSE 107; RESP 18; TEMP 36; O2SAT 96
--- NOTE | 2024-03-18 12:00 | W.SPSTP ---
Date of service: 03/18/24 Time of Service: 15:21 Subjective Ed was contacted during lunch meal this date. He was more verbally responsive this date, smiling at clinician upon entry and able to give naturalistic one word-responses such as okay. Objective/Assessment/Plan Objective Treatment Techniques & Outcomes: PO Trials: Thin liquids via sippy cup x1 2 sips, xtsp x10 sips Puree- Mashed potatoes and squash x 12 very small bites Minced/Moist- [place] and gravy x 4 bites Positionin degrees upright in bed, requiring intermittent midline repositioning due to lean. Respiratory Status: tolerating room air with wet breathing sounds Oral Care: Refused toothbrush as well as swab in mouthwash, indicating it was uncomfortable/painful. Allowed for light cleaning of tongue surface and cheeks with damp swab prior to PO. Oral Phase Findings: Prolonged oral phase (pt edentulous) Delayed A/P transit Patient self-limited bite size to 1/2 or 1/4 tsp Difficulty with oral coordination of sips from sippy cup and increased difficulty with hand-to mouth self-feeding speed, coordination, awareness, strength Improved oral coordination if fed tsp thin liquids from spoon Pharyngeal Phase Findings: Wet vocal quality is appreciated prior to session, but ?slightly increased through trials Noting some increased work of breathing during PO and breathing/swallowing discoordination Delayed swallow onset, Decreased hyolaryngeal movement Assessment Ed appears with improved mental status this date over previous with improved awareness and communication, but appearing overall with slower movements, deconditioned and discoordinated. He appears to tolerate purees and minced/moist similarly, with significant delays in A/P transit and swallow initiation. Concern over heavy breathing and trouble coordinating self-feeding as well as intermittent deep inhale while food/liquids in mouth. While no pacheco s/sx aspiration are observed, and appears with stable tolerance of purees as well as minced/moist, the full picture of mealtime and feeding seems more precarious than previous observations, largely due to overall medical status. Concerns reported to MD and RN, and RN reporting similar observations with breakfast. Ed is considered at chronic high risk for aspiration-related illness, even with this modified diet and with precautions in place. Risk is further increased in light of patient inconsistent compliance with recommendations, including allowance of oral care. Ongoing precautions listed below. RECOMMENDATIONS: Diet: 5-Minced & Moist (Mechancially Altered/Ground) Liquids: 0-Thin Liquids Other: MEDICATIONS: 1 at a time whole (if small) or Crushed in applesauce or one at at time with sips Alter medications only as advised by MD or Pharmacist RISK MANAGEMENT: [place] upright 90 degrees for all PO intake . Stay upright 30 min after meals. HOB elevated 30 degrees at all times Very small/slow bites and sips PO only when alert/awake Oral hygiene before/after PO as patient allows Level of Assistance/Supervision: 1:1 close supervision/assist for all PO intake PO intake only when awake/alert Strategies/Adaptations/Assistive Equipment: Posture/Positioning Needs: Maintain upright position at least 30 minutes after meals Sleep with head of bed elevated 30 degrees
[2024-03-18 13:21] VITALS: BP 136/92; PULSE 119; RESP 18; TEMP 36.3; O2SAT 96
--- NOTE | 2024-03-18 14:21 | W.PM.PROGNOT ---
Date of Service Date of service: 03/18/24 Time of Service: 14:21 Assessment and Plan Assessment and plan (1) Spell of altered consciousness: Status: Acute Assessment and plan: Episode of unresponsiveness of several minutes per nursing on 03/18. Did not respond to sternal rub. By the time I went into room, he was responding and speaking and moving left side at his baseline. No hemodynamic changes. Per nursing, he has had a little more difficulty feeding himself after this event, but no new focal deficits. He denied new pain or headache. CT head with CTA head and neck negative. He has had very similar episodes in the past, had EEG in October which did not show clear seizures and MRI at that point as well. I don't think this was a CVA. Seizures certainly in the ddx. He is on much less sedating medication for the last 2 weeks, off benzodiazepines and methadone, which may lower seizure threshhold. - monitor on telemetry - TIA in the differential, but he is already on treatment for secondary stroke prevention, and presentation is less c/w TIA. - Seizures, will consult teleneurology. Should we repeat MRI and/or EEG? Suspect seizures? (2) Opiate dependence, continuous: Status: Chronic Assessment and plan: -has had recurrent episodes of oversedation on chronic methadone and hydrocodone (was also on clonezepam and gabapentin) -hadweaned to the lower dose of methadone, down to 40mg, 30 mg yesterday. -I offered transition to suboxone, but has had bad experience with this and naloxone on his allergy list. -Given he will end up in a controlled setting of a skilled nursing, we decided to stop methadone, just treat pain with regimen that includes opioids, which would stave off withdrawal. No signs of withdrawal currently. -D/w PCP Galen Rivera who is in agreement (3) Chronic pain: Status: Chronic Assessment and plan: He had documented multifactorial chronic pain. Gabapentin being held after oversedation. After a discussion with Mr. Caballero 03/15, transitioning off methadone to MS Contin. Equivalent to 40mg methadone would be somewhere between 120mg morphine and 400mg morphine. Started at the low end (60mg BID) and monitor, has prn hydrocodone 10mg as well, no signs of withdrawal. Monitor closely and keep comfortable. 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 -Ongoing PT and OT with speech therapy to reevaluate swallow with patient's pneumonia. -He is at high risk for aspiration, appreciate speech therapy input. (5) Hypokalemia: Status: Acute Assessment and plan: Improved today. - 03/16 went back to potassium citrate orally along with magnesium, as this will help prevent stones as well. - Avoiding IV KCL due to pain in the IV - can stop additional KCL, continue potassium citrate. (6) Benign prostatic hyperplasia with urinary retention: Status: Chronic Assessment and plan: Has [place] catheter for urinary retention. He is at high risk for recurrent infections. He should have another trial of removal now that on less opioids. D/w Marc, started tamsulosin 03/17, plan trial on Saturday when Marc present. (7) Type 2 diabetes mellitus: Status: Chronic Assessment and plan: Reasonably controlled on glargine at bedtime and qAC (or every 6 hours if patient is not waking up to eat) moderate sliding scale of short acting insulin. Qualifiers: Diabetes mellitus rodent exterminator insulin use: with rodent exterminator use Diabetes mellitus complication status: with neurologic complications Diabetes mellitus complication detail: with polyneuropathy Qualified Code(s): E11.42 - Type 2 diabetes mellitus with diabetic polyneuropathy; Z79.4 - assisted (current) use of insulin (8) Hyperlipidemia: Status: Chronic Assessment and plan: Continue statin therapy. Qualifiers: Hyperlipidemia type: mixed hyperlipidemia Qualified Code(s): E78.2 - Mixed hyperlipidemia (9) Hypothyroidism (acquired): Status: Chronic Assessment and plan: Continue supplementation without change. (10) Constipation due to opioid therapy: Status: Acute Assessment and plan: He doesn't like lactulose and isn't taking it. Resumed prn PEG and add scheduled senna along with docusate. (11) Failure to thrive in adult: Status: Chronic Assessment and plan: Patient needs continued care chornically. Placement is ongoing with planned home care placement pending 03/25/24. Palliative care is seeing Mr. Caballero as well. He was on mirtazipine previously, seemed to be helping appetite and mood so resumed 03/16. Subjective Subjective Patient reports: still having pain; denies diarrhea or vomiting Interval history since last seen: Events: Multiple episodes of SVT on tele monitoring, as long as 2 minutes Seen by speech pathology, who notes patient is alert, more compliant with her recommendations, but increased difficulty swallowing CT/CTA head/neck yesterday after unresponsive spell did not show new pathology Given additional or potassium supplumenation Ed replies yes when asked about pain today, but has difficulty swallowing pain medication. He is eating some but not a lot. No increased SOB. No fevers. Exam Narrative Exam Narrative: Chronically ill appearing older gentleman laying in bed in no acute distress, alert again today, reponds with single words or phrases to direct questions. He pushed me away when I tried to examine him around 9am but allowed exam at 1:30. Pupils ~3mm room light. lungs with course breath sounds in bilateral bases, no rales/wheeze. heart RRR, abdomen soft, mild left sided tenderness, non-distended. Right arm and legs contracted, trace sloane edema in ankles. No skin rashes, no pilorection. Heal protectors on, no open wounds. Objective Last Vital Signs Temp 36.3 C L 03/18/24 13:21 Pulse 119 H 03/18/24 13:21 Resp 18 03/18/24 13:21 BP 136/92 H 03/18/24 13:21 Pulse Ox 96 03/18/24 13:21 Laboratory Results - last 24 hr 03/18/24 10:15 Sodium 147 H Potassium 3.7 Chloride 111 H Carbon Dioxide 28.3 Anion Gap 7.7 BUN 33 H Creatinine 0.8 Est GFR (CKD-EPI 2020) 94.03 Glucose 227 H Calcium 8.1 L Time Spent with Patient Time Spent with Patient: >50 minutes Time was spent: preparing to see the patient(eg.review tests), obtaining and/or reviewing separately otained hiistory, ordering medications,tests, procedures, referring, communicating with other health clinical care coordinator, indepentently interpreting results, counseling the patient and care coordination
[2024-03-18 15:15] VITALS: BP 137/59; PULSE 92; RESP 18; TEMP 35.8; O2SAT 94
[2024-03-18] MEDS: Carvedilol 6.25 MG TAB PO ×2 (18:44→21:35)
[2024-03-18 19:22] VITALS: BP 129/77; PULSE 120; RESP 18; TEMP 36.8; O2SAT 93
[2024-03-18 21:27] VITALS: BP 130/68; RESP 18; O2SAT 94
[2024-03-18] MEDS: Atorvastatin 40 MG TAB 80 MG PO (21:39)
[2024-03-18] MEDS: levETIRAcetam 250 MG TAB 500 MG PO (21:42)
[2024-03-18] MEDS: Mirtazapine 15 MG TAB PO (21:43)
[2024-03-19] VITALS (10 sets, daily range): BP systolic 103–148; BP diastolic 49–67; PULSE 82–110; RESP 8–20; TEMP 35.6–36.2; O2SAT 85–96
[2024-03-19 07:24] LABS: BUN 37 mg/dL (7-18); CREATININE 0.8 mg/dL (0.70-1.30); Calcium 8.2 mg/dL (8.5-10.1); Chloride 112 mmol/L (98-107); Estimated GFR 94.03 (mL/min/1.73m2); Glucose 209 mg/dL (74-106); Sodium 148 mmol/L (136-145)
[2024-03-19] MEDS: levETIRAcetam 250 MG TAB 500 MG PO (08:51)
[2024-03-19] MEDS: Enoxaparin 40 MG/0.4 ML SYR SC (08:51)
[2024-03-19] MEDS: Normal Saline Flush 10 ML SYR IVP ×2 (08:51→21:55)
[2024-03-19] MEDS: Carvedilol 6.25 MG TAB PO (08:52)
[2024-03-19] MEDS: amLODIPine 5 MG TAB PO (08:52)
[2024-03-19] MEDS: Aspirin E.C. 81 MG TABEC PO (08:52)
[2024-03-19] MEDS: Ticagrelor 90 MG TAB PO (08:53)
[2024-03-19] MEDS: Cholecalciferol (Vitamin D3) 1,000 UNIT TAB 1000 UNITS PO (08:53)
[2024-03-19] MEDS: Tamsulosin 0.4 MG CAPCR PO (08:54)
[2024-03-19] MEDS: Esomeprazole 40 MG CAPCR PO (08:54)
[2024-03-19] MEDS: Potassium Citrate 1080 MG TABCR PO (08:55)
[2024-03-19] MEDS: Magnesium Oxide 400 MG TAB PO (08:55)
[2024-03-19] MEDS: Docusate Sodium 100 MG CAP 200 MG PO (08:56)
[2024-03-19] MEDS: Insulin Glargine 300 UNITS/3 ML PEN 15 UNITS SC (09:01)
[2024-03-19] MEDS: Insulin Aspart 300 UNITS/3 ML PEN SC ×2 (09:02→13:06)
--- NOTE | 2024-03-19 09:06 | PDOC.CMPRO ---
Date of service: 03/19/24 Time of Service: 09:06 Care Management Progress Note Progress Note Text Progress Note Text: S/O:Ed was sitting up in bed when CM met with him. He was awake and alert and engaged well with CM. The report from the Neurology tele-visit was available today. The neurologist made several recommendations including starting Ed on Keppra for possible seizure activity and changing the dose of some of his other medications. Speech therapy continues to work with Ed to reduce the possibility of another aspiration event. Their recommendations include a minced/moist diet, placing Ed in bolt upright 90 degree position for meals and for half hour after meals. he is also to be 1:1 close supervision/assist for all PO intake including food, fluids and medications. A: Ed is a 73 year old man admitted on 10/31/23 with pneumonia . P: Ed will likely transition to an AFC (Adult Family Care) home in [place] when all arrangements have been finalized. CM will continue to follow and support Ed and his discharge planning needs SDOH(Care Management) Screening Will the Patient Participate in the Screening?: Unable to obtain
--- NOTE | 2024-03-19 10:44 | SPP_ITS ---
Date of service: 03/19/24 Time of Service: 09:40 Subjective Patient received awake in bed, watching television in bolt upright position. He was agreeable to PO snack. Patient observed to be fatigued. He was able to communicate yes/no with nods and facial expression. Objective/Assessment/Plan Objective Treatment Techniques & Outcomes: PO Trials: L5 minced/moist: Cottage cheese x 3 bites L0 Thin: Juice via tsp x 4 sips L2 Mildly Thick: Juice via tsp x2 Positioning: [place] upright 90 degrees in bed Respiratory Status: Tolerating room air; wet breathing sounds at baseline/prior to PO and throughout Oral Care: Allowed for oral care initially, then declined. Also allowed application of oral moisturizing gel via swab initially, but then discontinued as he expressed he did not like it. Suctioning set up due to increased secretions noted. Feeding: Required max 1:1 feed assist today- difficulty with coordination of self feeding Oral Phase Findings: Prolonged oral phase (pt edentulous) Delayed A/P transit Pharyngeal Phase Findings: Wet vocal quality is appreciated prior to session, but ?slightly increased through trials Wet cough noted intermittently - unable to produce volitional cough Noting some increased work of breathing during PO and breathing/swallowing discoordination Delayed swallow onset Decreased hyolaryngeal movement Assessment Ed presented as alert but fatigued today, still continuing with slower movements/increased difficulty with self-feeding, ultimately appearing deconditioned since recent hypoxia event. Today he tolerated small amounts of cottage cheese and juice via tsp, requiring max assist for feeding. Concern over increased heavy wet breathing (at baseline and ? slightly worse with PO), poorer management of secretions, and slight increase in oral residue after PO trials. Suctioning set up in room and utilized following PO snack (with swab suction kit) to fully remove oral residue. Anticipate xerostomia is contributing to residue and recommend ongoing strict oral care as well as use of oral gel moisturizer if patient is agreeable. Overall, Ed is considered at chronic high risk for aspiration-related illness despite diet modifications and aspiration precautions; this risk appears acutely increased in light of current deconditioned status. Discussed with nursing and palliative care MD - nursing notes similar concerns with recent meals. Plan Plan: SIGNAL FITTER to continue to follow, 3-4x/weekly for 1-2 weeks Goals: Continuous Vulcanizing Machine Operator Goals: Patient will remain free from aspiration-related illness, malnutrition, and dehydration. Short Term Goals: Patient will tolerate Puree Diet and Thin liquids without overt s/s aspiration across 2/2 visits. Patient will tolerate PO trials for consideration of diet upgrade without overt s/s aspiration across 2/2 visits. Recommendations Recommendations: Diet: 5-Minced & Moist (Mechancially Altered/Ground) Liquids: 0-Thin Liquids VIA TSP Other: MEDICATIONS: 1 at a time whole (if small) or Crushed in applesauce or one at at time with sips Alter medications only as advised by MD or Pharmacist RISK MANAGEMENT: [place] upright 90 degrees for all PO intake . Stay upright 30 min after meals. HOB elevated 30 degrees at all times Very small/slow bites and sips PO only when alert/awake Oral hygiene before/after PO as patient allows Level of Assistance/Supervision: 1:1 close supervision/assist for all PO intake PO intake only when awake/alert Strategies/Adaptations/Assistive Equipment: Posture/Positioning Needs: Maintain upright position at least 30 minutes after meals Sleep with head of bed elevated 30 degrees
--- NOTE | 2024-03-19 15:30 | DI.RAD_ITS ---
Exam(s) XR PORTABLE CHEST AP EXAM: XR PORTABLE CHEST AP CLINICAL HISTORY: dyspnea, hypoxia TECHNIQUE: 2D digital imaging was performed. COMPARISON: CR XR PORTABLE CHEST AP from 03/11/2024 CR,XR XR PORTABLE CHEST AP from 03/12/2024 FINDINGS: LUNGS: Some improvement in lower lobe infiltrates. Persistent area of consolidation in the medial le ft lower lobe. No pleural abnormality seen. HEART: Normal size. AORTA: Normal diameter. BONES: Degenerative changes in the spine. Old left rib fractures. Soft tissues: Unremarkable. IMPRESSION: Some improvement amount bilateral infiltrates with persistent infiltrate at the left lower lobe. DATA REPOSITORY: RADIATION DOSE DELIVERED:
--- NOTE | 2024-03-19 15:33 | W.PM.PROGNOT ---
Date of Service Date of service: 03/19/24 Time of Service: 15:33 Assessment and Plan Assessment and plan (1) Dysphagia due to old stroke: Status: Acute Assessment and plan: I am concerned that Ed has ongoing aspiration issues and this is limiting his PO intake such that he is not able to intake adequate calories and protein which contributes to his recent decline in his strength and ability to participate in his ADL care. He formerly was able to participate in his own feedings and no longer is able to do so. He has shown signs of dysphagia even w/ supervised modified diets. He recently was treated for sepsis from aspiration pneumonia. Today his SPO2 dropped to 82% and nursing applied supplemental oxygen. He has prn albuterol nebulizers ordered but has not received any today. I will order scheduled DuoNeb treatments along w/ chest physiotherapy. I will check CXR to look for any recent signs of pneumonia. He is afebrile so I will hold on antibiotics for now. I have put in Palliative care referral to address w/ Ed and his family my recommendations for feeding tube and to see if this would be in accordance to his goals of care. While a gastrostomy tube would not necessarily prevent aspiration events, it would allow alternative method of feeding him and getting his meds into him and bypass the oral route thereby decreasing aspiration events. (2) Spell of altered consciousness: Status: Acute Assessment and plan: several minutes of altered level of consciousness on 03/17. See Dr. Childers's documentation. This was followed up w/ CTA head and neck and CT head. No new changes. Ed has severe carotid disease w/ occlusion of his left ICA at its origin w/ reconstitution of flow in the left ICA at the suprclinoid area from right sided flow to left MCA from anterior communicating artery and left A1 segement; however, he also has 60% narrowing of the right carotid bifurcation and proximal LOUIE in the neck. CT head demonstrated continued large area of left hemisphere encephalomalacia. Tele-neuro consult was obtained w/ DR. Layton Del Real M.D. who indicated that his encephalomalacia makes him at risk for seizures and recommended empiric treatment w/ Keppra 500 mg bid. She recommended that if his mental status did not improve and he showed any signs of infection, i.e. fever, rising inflammatory markers to proceed w/ LP and to have a low threshold for repeat brain imaging w/ MRI. At this point, Ed seems to be back to his baseline congnition, i.e. alert, follows simple one step commands, nods yes or no to questions but pretty much aphasic and w/ dense right hemiplegia. He remains on Keppra 500 mg bid. Mirtazpine remains on his medications and was prescribed for depressed appetite but I think his poor po intake is more d/t his dysphagia. With regard to his change from methadone to MS Contin he seems to be handling this ok w/out excess lethargy and he does not seem to be in acute pain or withdrawal. (3) Opiate dependence, continuous: Status: Chronic Assessment and plan: now off clonazepam and gabapentin and methadone; remains on MS Contin 60 mg bid along w/ prn dosing of hydrocodone. (4) Chronic pain: Status: Chronic Assessment and plan: as above. 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 He is at high risk for recurrent infections. He should have another trial of removal now that on less opioids. D/w Marc, started tamsulosin 03/17, plan trial on Saturday when Marc present. (8) Type 2 diabetes mellitus: Status: Chronic Assessment and plan: Reasonably controlled on glargine at bedtime and qAC (or every 6 hours if patient is not waking up to eat) moderate sliding scale of short acting insulin. Qualifiers: Diabetes mellitus penitentiary insulin use: with penitentiary use Diabetes mellitus complication status: with neurologic complications Diabetes mellitus complication detail: with polyneuropathy Qualified Code(s): E11.42 - Type 2 diabetes mellitus with diabetic polyneuropathy; Z79.4 - correction (current) use of insulin (9) Hyperlipidemia: Status: Chronic Assessment and plan: Continue statin therapy. Qualifiers: Hyperlipidemia type: mixed hyperlipidemia Qualified Code(s): E78.2 - Mixed hyperlipidemia (10) Hypothyroidism (acquired): Status: Chronic Assessment and plan: Continue supplementation without change. (11) Constipation due to opioid therapy: Status: Acute Assessment and plan: He doesn't like lactulose and isn't taking it. use scheduled docusate, senna and PEG. (12) Failure to thrive in adult: Status: Chronic Assessment and plan: Patient needs continued care chornically. Placement is ongoing with planned home care placement pending 03/25/24. Palliative care is seeing Mr. Caballero as well. He was on mirtazipine previously, seemed to be helping appetite and mood so resumed 03/16. Subjective Subjective Interval history since last seen: Ed appears fatigued. Per my review of JOINTER MACHINE notes and discussion w/ his nurse, the patient has not been able to tolerate much oral feedings and when he has supervised feedings, he has shown signs of intolerance, i.e. wet moist cough after small bites of minced and moist foods. His nurse says that he pockets meds in his mouth and requires sips of fluid to try to get him to clear his meds. I specifically spoke w/ Ed about the idea of having a feeding tube placed. Ed looked at me and gestured like he did not know whether to have this or not. When asked if he would consider it, he raised his eyebrows and has a puzzled look on his face. Therefore I am not sure he understood what I was explaining to him. When asked if he was in any pain, he nodded no. Exam Narrative Exam Narrative: Ed appears visibly fatigued, not using accessory respiratory muscles but his breathing is congested w/ audible rhonchi LUngs: scattered bilateral rhonchi and wheezes from bases to apices Heart: RRR Abdomen: soft, nondistended, nontender Riojas: draining clear yellow urine Extremities: no edema. Objective Last Vital Signs Temp 36.2 C L 03/19/24 15:16 Pulse 100 H 03/19/24 15:16 Resp 17 03/19/24 15:16 BP 148/60 H 03/19/24 15:16 Pulse Ox 85 L 03/19/24 15:16 Laboratory Results - last 24 hr 03/19/24 06:50 Sodium 148 H Potassium 4.0 Chloride 112 H Carbon Dioxide 28.0 Anion Gap 8.0 BUN 37 H Creatinine 0.8 Est GFR (CKD-EPI 2020) 94.03 Glucose 209 H Calcium 8.2 L Time Spent with Patient Time Spent with Patient: 25-34 minutes Time was spent: preparing to see the patient(eg.review tests), ordering medications,tests, procedures, referring, communicating with other health manager wound care, indepentently interpreting results and care coordination
[2024-03-19] MEDS: Albuterol 2.5 MG/3 ML INH SOLN VIAL UPD (15:37)
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
--- NOTE | 2024-03-19 17:17 | NUR.NOTE ---
Nursing Note: pt. appers weak, pale, SATs declined to 82% on RA, placed on2-3L NC with slow response to 90% SATs. MD notified, RT notified, CXR ordered. Crackles throughout lung aguilar, poor appetite. Q2 turns. states he is having pain but does not state where his pain is.
[2024-03-19] MEDS: Albuterol/Ipratropium 3 ML UPD VIAL UPD (20:05)
[2024-03-20] VITALS (13 sets, daily range): BP systolic 110–124; BP diastolic 55–60; PULSE 98–114; RESP 2–42; TEMP 35.8–36.4; O2SAT 77–98
--- NOTE | 2024-03-20 05:00 | DI.RAD_ITS ---
Exam(s) XR PORTABLE CHEST AP EXAM: XR PORTABLE CHEST AP CLINICAL HISTORY: tachypnea TECHNIQUE: 2D digital imaging was performed of the chest. One image was obtained. An AP view was ob tained. COMPARISON: CR XR PORTABLE CHEST AP from 03/19/2024 FINDINGS: MEDIASTINUM: Normal. HEART: Normal. PULMONARY VASCULATURE: Normal. LUNGS: There are bilateral basilar infiltrates with focal consolidation in the left retrocardiac nathan on. Overall there does not appear to be any significant change compared to the examination from the day prior. PLEURAL SPACE: No pleural effusion or pneumothorax. BONE:Within normal limits for the patient's age. There are old healed left rib fracture deformities. OTHER FINDINGS:Normal. IMPRESSION: Persistent bilateral basilar infiltrates, left greater than right. There does not appear to be any s ignificant change compared to the prior examination. DATA REPOSITORY: RADIATION DOSE DELIVERED:
[2024-03-20 05:35] LABS: BE (Venous) 0 mmol/L (-2-3); HCO3 (Venous) 24 mmol/L (23-28); O2 Sat (Venous) 99 %; TCO2 (Venous) 22 mmol/L (24-29); pCO2 (Venous) 35 mmHg (41-51); pH (Venous) 7.45 (7.31-7.41); pO2 (Venous) 110 mmHg
[2024-03-20 05:39] LABS: Lactate 2.1 mmol/L (0.6-1.4)
[2024-03-20 06:42] LABS: Absolute Neutrophil Count 28.79 10^3/uL (1.2-6.7); Basophils % 0.4; HCT 34.7 % (40.0-50.0); HGB 11.4 g/dL (13.5-17.5); Lymphocytes % 2.6; MCH 28.8 pg (27.0-33.0); MCHC 32.9 % (32.0-36.0); MCV 88 fL (80-95); MPV 10.3 fL (8.0-11.0); Monocytes % 1.9; Neutrophils % 94.1; Platelet Count 413 10^3/uL (130-400); RBC 3.96 10^6/uL (4.36-5.78); RDW 14.9 % (11.8-14.1); RDW-SD 47.7 fL
[2024-03-20 06:54] LABS: Absolute Basophil Count 0.12 10^3/uL (0.0-0.2); Absolute Monocyte Count 0.58 10^3/uL (0.1-0.8)
[2024-03-20 06:56] LABS: ALT 25 U/L (16-63); AST 30 U/L (15-37); Albumin 2.1 g/dL (3.4-5.0); Alkaline Phosphatase 165 U/L (46-116); Anion Gap 12.1 mmol/L (3-11); BUN 41 mg/dL (7-18); Bilirubin, Total 0.4 mg/dL (0.2-1.0); CO2 24.9 mmol/L (21.0-32.0); CREATININE 1.1 mg/dL (0.70-1.30); Calcium 8.4 mg/dL (8.5-10.1); Chloride 111 mmol/L (98-107); Diff Comment Diff Reviewed; Estimated GFR 71.32 (mL/min/1.73m2); Glucose 295 mg/dL (74-106); RBC Morphology Normal; Sodium 148 mmol/L (136-145); Total Protein 7.3 g/dL (6.4-8.2)
[2024-03-20 07:16] LABS: Procalcitonin 0.2 ng/mL
--- NOTE | 2024-03-20 07:36 | DI.VRAD_ITS ---
PROCEDURE INFORMATION: Exam: XR Chest Exam date and time: 03/20/2024 6:31 AM Age: 74 years old Clinical indication: Tachypnea TECHNIQUE: Imaging protocol: Radiologic exam of the chest. Views: 1 view. COMPARISON: CR XR PORTABLE CHEST AP 03/19/2024 4:03 PM FINDINGS: Lungs: Bibasilar pulmonary opacities. Pleural spaces: No large pleural effusion seen. Heart/Mediastinum: No cardiomegaly. Bones/joints: Grossly unremarkable. IMPRESSION: Bibasilar opacities most consistent with pneumonia. Follow-up advised. Dictated and Authenticated by: Narcisa Ramirez MD. Ordering:BRIDGET Rice MD
[2024-03-20] MEDS: Albuterol/Ipratropium 3 ML UPD VIAL UPD ×4 (08:10→20:00)
--- NOTE | 2024-03-20 09:12 | PDOC.CMPRO ---
Date of service: 03/20/24 Time of Service: 09:12 Care Management Progress Note Progress Note Text Progress Note Text: S/O:Ed was sitting up in bed when CM met with him. He was minimally responsive and was unable to engage with CM. Ed's condition continues to decline. His WBC has risen to 30.60 and during the night he became tachypneic with respiratory rate in the 30s and 40s and hypoxic with oxygen saturation in the 70s and 80s. He was placed on a non-rebreather and then on an Oxymask at 8-10L/min. His oxygen saturation is now in the 90s. Ed has been a full code since admission. Due to his deteriorating condition, a family meeting was scheduled with his daughter Alejandra who is his HCA , the nurse practitioner Amanda, JUNE Berg and RONDA Gonzalez. Ed's condition, prognosis and wishes were discussed. Alejandra requested that CM discuss this with her brother as well before she could make the decision to change Ed's code status. After much deliberation, Ed's code status was changed to DNR/DNI. Both Alejandra and Stephen stated that while they do not want Ed to suffer, they would like to continue treatment with medications and antibiotics for a few days to see if he improves. If he does not, they may consider comfort measures. When Alejandra came in this afternoon for the family meeting she brought her infant daughter and visited with ED. He visibly brightened when he saw them and attempted to communicate with them. All that he was able to do was smile a bit and nod yes to whatever question he was asked, but he never took his eyes off of them. A: Ed is a 73 year old man admitted on 10/31/23 with pneumonia . P: Ed's code status was changed to DNR/DNI today following a decline in his condition. He is quite ill at the moment and plans to transfer him to a different setting are on hold at the moment. CM will continue to follow and offer support to both Ed and his family. SDOH(Care Management) Screening Will the Patient Participate in the Screening?: Unable to obtain
[2024-03-20] MEDS: Insulin Glargine 300 UNITS/3 ML PEN 15 UNITS SC (09:18)
[2024-03-20] MEDS: Normal Saline Flush 10 ML SYR IVP ×3 (09:20→21:08)
[2024-03-20] MEDS: cefTRIAXone 2 GM/50 ML BAG IVPB (09:21)
[2024-03-20] MEDS: Enoxaparin 40 MG/0.4 ML SYR SC (09:24)
--- NOTE | 2024-03-20 10:24 | W.PM.PROGNOT ---
Date of Service Date of service: 03/20/24 Time of Service: 10:24 Assessment and Plan Assessment and plan (1) Dysphagia due to old stroke: Status: Acute Assessment and plan: Continued concern regarding aspiration issues limiting his PO intake, he doesn't have enough calories and protein and this contributes to his decline in strength and ability to participate in his ADLs. He was seen by palliative care yesterday - see Dr Donahue' note Currently he is not taking PO meds or food Chest xray per radiologist read : Persistent bilateral basilar infiltrates, left greater than right. There does not appear to be any significant change compared to the prior examination. VBG today - 7.41 43 27 WBC 30.6 and 28.6 - abx were started - Ceftriaxone 2 gm q 24 h Hgb 9.5 Ammonia < 10 Procal 0.2 Will continue close observation Discussed with Dr Perdue (2) Spell of altered consciousness: Status: Acute Assessment and plan: Fairly lethargic today, daughter is coming this afternoon to see him. I did call Palliative Care to join us, there is not a provider available today. (3) Opiate dependence, continuous: Status: Chronic Assessment and plan: Continue MS Contin 60 mg bid along w/ prn dosing of hydrocodone; appears comfortable. (4) Chronic pain: Status: Chronic Assessment and plan: as above. 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 Patient should have another trial of removal now that on less opioids. D/w Marc, started tamsulosin 03/17 - this is on hold at this time secondary to his decline (8) Type 2 diabetes mellitus: Status: Chronic Assessment and plan: Reasonably controlled on glargine at bedtime and qAC (or every 6 hours if patient is not waking up to eat) moderate sliding scale of short acting insulin. 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 Qualifiers: Hyperlipidemia type: mixed hyperlipidemia Qualified Code(s): E78.2 - Mixed hyperlipidemia (10) Hypothyroidism (acquired): Status: Chronic Assessment and plan: Continue supplementation without change. (11) Constipation due to opioid therapy: Status: Acute Assessment and plan: He doesn't like lactulose and isn't taking it. Continue scheduled docusate, senna and PEG. (12) Failure to thrive in adult: Status: Chronic Assessment and plan: Patient needs continued care chornically. Placement is ongoing with planned home care placement pending 03/25/24. Palliative care is seeing Mr. Caballero as well. Continue Mirtazipine - helping appetite and mood so resumed 03/16. He isn't taking PO currenlty with his decline Subjective Subjective Patient reports: no new complaints; denies tolerating liquids well, tolerating a regular diet, diarrhea, vomiting, shortness of breath or fever Interval history since last seen: Edward is more lethargic today, difficult to arouse, does not open eyes when asked or follow commands. Care mgs contaced his daughter and she will be in to discuss options for his care. Exam Narrative Exam Narrative: Ed is much more lethargic today, not using accessory respiratory muscles but his breathing is congested w/ audible rhonchi Lungs: scattered bilateral rhonchi and wheezes from bases to apices Heart: RRR Abdomen: soft, nondistended, nontender Riojas: draining clear dark yellow urine Extremities: no edema. Objective Last Vital Signs Temp 35.9 C L 03/20/24 08:09 Pulse 108 H 03/20/24 08:10 Resp 15 03/20/24 08:09 BP 110/57 L 03/20/24 08:09 Pulse Ox 96 03/20/24 08:10 Laboratory Results - last 24 hr 03/20/24 03/20/24 05:28 06:30 WBC 30.60 H* RBC 3.96 L Hgb 11.4 L Hct 34.7 L MCV 88 MCH 28.8 MCHC 32.9 RDW 14.9 H Plt Count 413 H MPV 10.3 Immature Gran % 1.0 Neutrophils % 94.1 Lymphocytes % 2.6 Monocytes % 1.9 Eosinophils % 0.0 Basophils % 0.4 Nucleated RBC % 0.0 Absolute Neutrophils 28.79 H Absolute Lymphocytes 0.80 L Absolute Monocytes 0.58 Absolute Eosinophils 0.00 Absolute Basophils 0.12 RBC Morphology Normal VBG pH 7.45 H VBG pCO2 35 L VBG pO2 110 VBG HCO3 24 VBG Total CO2 22 L VBG O2 Saturation 99 VBG Base Excess 0 VBG Lactate 2.1 H Sodium 148 H Potassium 5.0 D Chloride 111 H Carbon Dioxide 24.9 Anion Gap 12.1 H BUN 41 H Creatinine 1.1 Est GFR (CKD-EPI 2020) 71.32 Glucose 295 H Calcium 8.4 L Total Bilirubin 0.4 AST 30 ALT 25 Alkaline Phosphatase 165 H Total Protein 7.3 Albumin 2.1 L Procalcitonin 0.2 Time Spent with Patient Time Spent with Patient: 25-34 minutes Time was spent: preparing to see the patient(eg.review tests), ordering medications,tests, procedures, referring, communicating with other health field care coordinator, indepentently interpreting results and care coordination
[2024-03-20] MEDS: AZITHROMYCIN 500 MG in Normal Saline 250 ML 250 MG IVPB (10:27)
[2024-03-20 11:21] LABS: BE (Venous) 2 mmol/L (-2-3); Basophils % 0.3; HCO3 (Venous) 27 mmol/L (23-28); HCT 30.2 % (40.0-50.0); HGB 9.5 g/dL (13.5-17.5); Immature Grans % 0.7; Lymphocytes % 3.8; MCHC 31.5 % (32.0-36.0); MCV 89 fL (80-95); Monocytes % 2.2; O2 Sat (Venous) 85 %; Platelet Count 321 10^3/uL (130-400); RBC 3.39 10^6/uL (4.36-5.78); TCO2 (Venous) 25 mmol/L (24-29); pCO2 (Venous) 43 mmHg (41-51); pH (Venous) 7.41 (7.31-7.41); pO2 (Venous) 50 mmHg
[2024-03-20 11:29] LABS: Absolute Basophil Count 0.09 10^3/uL (0.0-0.2); Absolute Lymphocyte Count 1.09 10^3/uL (1.2-3.4); Absolute Monocyte Count 0.63 10^3/uL (0.1-0.8)
[2024-03-20 11:31] LABS: Diff Comment Diff Reviewed; RBC Morphology Normal
[2024-03-20 11:33] LABS: Ammonia < 10 umol/L (11-32)
[2024-03-20 11:44] LABS: ALT 22 U/L (16-63); AST 24 U/L (15-37); Albumin 1.9 g/dL (3.4-5.0); Alkaline Phosphatase 144 U/L (46-116); Anion Gap 10.3 mmol/L (3-11); BUN 44 mg/dL (7-18); Bilirubin, Total 0.3 mg/dL (0.2-1.0); CO2 26.7 mmol/L (21.0-32.0); CREATININE 1.2 mg/dL (0.70-1.30); Chloride 112 mmol/L (98-107); Estimated GFR 64.25 (mL/min/1.73m2); Glucose 316 mg/dL (74-106); Potassium 4.6 mmol/L (3.5-5.1); Sodium 149 mmol/L (136-145); Total Protein 6.6 g/dL (6.4-8.2)
[2024-03-20] MEDS: Lactated Ringers 500 ML IV (11:50)
[2024-03-20] MEDS: Insulin Aspart 300 UNITS/3 ML PEN SC (13:52)
--- NOTE | 2024-03-20 15:23 | STREC_ITS ---
Date of service: 03/20/24 Time of Service: 15:23 Speech Therapy Recommendations Report ST Recommendations: NON-TREATMENT NOTE: Attempting to contact Ed at bedside today for PO trials. He was made NPO this morning due to increased lethargy and continued reduced swallow initiation. Nursing reports he had required deep suctioning earlier this date, and was not swallowing any meds despite effort. LEAD ELECTRICIAN repositioned patient, oral care performed with suction kit. Patient was unable to follow any instructions and barely able to open eyes or acknowledge presence of this clinician. Attempted to give him approx 1/3 tsp water, but patient was unable to maintain labial seal to prevent anterior leakage, let alone initiate lingual transit. No further trials attempted. PLAN: Patient's daughter visited today and patient was changed to DNR/DNI. Medical team to trial additional antibiotics this weekend and if improvement in overall medical/mental status and lethargy, would recommend to re-start PO trials with LEAD ELECTRICIAN present, or with nursing, suction on standby. Patient should be placed bolt upright and positioned midline, with oral care completed prior. Start with very small (1/4-1/2 tsp) sips water. If patient is able to initiate a swallow to laryngeal or sub-mental palpation, may proceed with further trials. Patient will likely require feeding tube in the longer term even if there is improvement in medical status, as his weight has been declining steadily over the past months even before recent exacerbation of swallowing difficulties. LEAD ELECTRICIAN to continue to follow, 3-4x/weekly for 1-2 weeks DIET: NPO (with option to start freewater protocol as described above) RISK MANAGEMENT: [place] upright 90 degrees/midline for all oral care. HOB elevated 30 degrees at all times Please continue to perform oral care for comfort every 3-4hrs while NPO. Goals: Senior Living Goals: Patient will remain free from aspiration-related illness, malnutrition, and dehydration. Short Term Goals: Patient will tolerate Puree Diet and Thin liquids without overt s/s aspiration across 2/2 visits. Patient will tolerate PO trials for consideration of diet upgrade without overt s/s aspiration across 2/2 visits.
[2024-03-20] MEDS: MORPHine 4 MG/ML SYR IVP (22:11)
[2024-03-21] VITALS (7 sets, daily range): BP systolic 114–154; BP diastolic 55–69; PULSE 90–109; RESP 15–24; TEMP 35.5–37.2; O2SAT 92–100
[2024-03-21 03:01] LABS: Bilirubin Negative (Negative); Blood Moderate (Negative); Clarity Clear (Clear); Glucose Negative (Negative); Ketones Trace mg/dL (Negative); Leukocyte Esterase Negative (Negative); Nitrite Negative (Negative); Specific Gravity >= 1.030 (1.005-1.025); Urobilinogen 0.2 mg/dL (Up to 0.2); pH 5.5 (5-8)
[2024-03-21 03:06] LABS: Bacteria Few HPF (Negative); C & S Indicated? C&S Done As Ordered; Casts 3-5 Hyaline LPF (Negative); Crystals Negative HPF (Negative); Epithelial Cells Few HPF (Negative); Mucus Negative (Negative); Other Cells Few Yeast (Negative)
[2024-03-21] MEDS: MORPHine 4 MG/ML SYR IVP ×7 (03:56→22:57)
[2024-03-21] MEDS: levETIRAcetam 1,000 MG in Normal Saline 100 ML 400 MG IVPB (05:06)
[2024-03-21] MEDS: LORazepam 2 MG/ML VIAL 1 MG IVP ×3 (05:06→21:43)
[2024-03-21] MEDS: Insulin Aspart 300 UNITS/3 ML PEN SC ×3 (06:14→18:30)
[2024-03-21 06:42] LABS: Abs Immature Grans 0.17 10^3/uL (0.0-0.06); Absolute Basophil Count 0.05 10^3/uL (0.0-0.2); Absolute Lymphocyte Count 0.93 10^3/uL (1.2-3.4); Basophils % 0.2; HCT 29.8 % (40.0-50.0); HGB 9.5 g/dL (13.5-17.5); Immature Grans % 0.7; Lymphocytes % 4.1; MCH 27.9 pg (27.0-33.0); MCHC 31.9 % (32.0-36.0); MCV 88 fL (80-95); MPV 10.7 fL (8.0-11.0); Monocytes % 3.8; Neutrophils % 91.2; Platelet Count 283 10^3/uL (130-400); RDW 15.4 % (11.8-14.1); WBC 22.71 10^3/uL (4.4-10.8)
[2024-03-21 06:50] LABS: Absolute Monocyte Count 0.86 10^3/uL (0.1-0.8); Absolute Neutrophil Count 20.71 10^3/uL (1.2-6.7)
[2024-03-21 07:01] LABS: Diff Comment Diff Reviewed; RBC Morphology Normal
[2024-03-21 07:14] LABS: Anion Gap 6.5 mmol/L (3-11); BUN 41 mg/dL (7-18); CO2 27.5 mmol/L (21.0-32.0); CREATININE 0.9 mg/dL (0.70-1.30); Chloride 115 mmol/L (98-107); Estimated GFR 90.74 (mL/min/1.73m2); Glucose 274 mg/dL (74-106); Potassium 3.6 mmol/L (3.5-5.1); Sodium 149 mmol/L (136-145)
[2024-03-21] MEDS: Enoxaparin 40 MG/0.4 ML SYR SC (08:42)
[2024-03-21] MEDS: DEXTROSE 5%-0.45% SALINE 1,000 ML 125 ML IV ×2 (08:42)
[2024-03-21] MEDS: cefTRIAXone 2 GM/50 ML BAG IVPB (08:42)
[2024-03-21] MEDS: Normal Saline Flush 10 ML SYR IVP ×2 (08:46→20:05)
[2024-03-21] MEDS: AZITHROMYCIN 500 MG in Normal Saline 250 ML 250 MG IVPB (10:28)
--- NOTE | 2024-03-21 12:28 | PGE_ITS ---
Date of Service Date of service: 03/21/24 Time of Service: 12:28 Assessment and Plan Assessment and plan (1) Dysphagia due to old stroke: Status: Acute Assessment and plan: Continued concern regarding aspiration issues he has had no PO intake, continues to be unresponsive, he doesn't have enough calories and protein and this contributes to his decline in strength and ability to participate in his ADLs. Followed by palliative care Currently he is not taking PO meds or food Will continue close observation Discussed with Dr Perdue (2) Spell of altered consciousness: Status: Acute Assessment and plan: Fairly lethargic today, daughter is coming this afternoon to see him. I did call Palliative Care to join us, there is not a provider available today. (3) Opiate dependence, continuous: Status: Chronic Assessment and plan: Hold oral meds; IV meds ordered (4) Chronic pain: Status: Chronic Assessment and plan: as above. 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 Glucose 274 Qualifiers: Diabetes mellitus fci insulin use: with fci use Diabetes mellitus complication status: with neurologic complications Diabetes mellitus complication detail: with polyneuropathy Qualified Code(s): E11.42 - Type 2 diabetes mellitus with diabetic polyneuropathy; Z79.4 - snf (current) use of insulin (9) Hyperlipidemia: Status: Chronic Assessment and plan: Continue statin therapy. Qualifiers: Hyperlipidemia type: mixed hyperlipidemia Qualified Code(s): E78.2 - Mi xed hyperlipidemia (10) Hypothyroidism (acquired): Status: Chronic Assessment and plan: Continue supplementation without change. (11) Constipation due to opioid therapy: Status: Acute Assessment and plan: He doesn't like lactulose and isn't taking it. Continue scheduled docusate, senna and PEG. (12) Failure to thrive in adult: Status: Chronic Assessment and plan: Patient needs continued care chornically. Placement is ongoing with planned home care placement pending 03/25/24. Palliative care is seeing Mr. Caballero as well. He isn't taking PO currenlty with his decline Discussed with Dr Perdue Subjective Subjective Patient reports: no new complaints Interval history since last seen: Discussed option of care yesterday with daughter Alejandra and son Stephen ; code status was changed to DNR/DNI. Plan to continue abx and reeval on Saturday for potential change to comfort care. He remains unresponsive today. Exam Narrative Exam Narrative: Continues to be lethargic today, not using accessory respiratory muscles but his breathing is congested w/ audible rhonchi, and very shallow. Lungs: scattered bilateral rhonchi and wheezes from bases to apices Heart: RRR Abdomen: soft, nondistended, nontender Riojas: draining clear dark yellow urine Extremities: no edema. Objective Last Vital Signs Temp 36.9 C 03/21/24 12:21 Pulse 95 H 03/21/24 12:21 Resp 24 03/21/24 12:21 BP 128/63 03/21/24 08:06 Pulse Ox 94 03/21/24 12:21 Laboratory Results - last 24 hr 03/21/24 03/21/24 02:45 06:20 WBC 22.71 H RBC 3.40 L Hgb 9.5 L Hct 29.8 L MCV 88 MCH 27.9 MCHC 31.9 L RDW 15.4 H Plt Count 283 MPV 10.7 Immature Gran % 0.7 Neutrophils % 91.2 Lymphocytes % 4.1 Monocytes % 3.8 Eosinophils % 0.0 Basophils % 0.2 Nucleated RBC % 0.0 Absolute Neutrophils 20.71 H Absolute Lymphocytes 0.93 L Absolute Monocytes 0.86 H Absolute Eosinophils 0.00 Absolute Basophils 0.05 RBC Morphology Normal Sodium 149 H Potassium 3.6 D Chloride 115 H Carbon Dioxide 27.5 Anion Gap 6.5 BUN 41 H Creatinine 0.9 Est GFR (CKD-EPI 2020) 90.74 Glucose 274 H Calcium 8.0 L Urine Color Yellow Urine Clarity Clear Urine pH 5.5 Ur Specific [place] >= 1.030 H Urine Protein 100 H Urine Ketones Trace H Urine Blood Moderate H Urine Nitrite Negative Urine Bilirubin Negative Urine Urobilinogen 0.2 Ur Leukocyte Esterase Negative Urine RBC 5-10 H Urine WBC 3-5 Ur Epithelial Cells Few Urine Crystals Negative Urine Bacteria Few Urine Casts 3-5 Hyaline Urine Mucus Negative Urine Other Few Yeast Ur Culture Indicated? C&S Done As Ordered Urine Glucose Negative Time Spent with Patient Time Spent with Patient: 35-49 minutes Time was spent: preparing to see the patient(eg.review tests), ordering medications,tests, procedures, referring, communicating with other health home care associate, indepentently interpreting results, counseling the patient and care coordination
[2024-03-21] MEDS: levETIRAcetam 500 MG in Normal Saline 100 ML 400 MG IVPB (18:30)
[2024-03-22] VITALS (9 sets, daily range): BP systolic 113–146; BP diastolic 55–98; PULSE 91–119; RESP 6–22; TEMP 36.9–37.5; O2SAT 90–96
[2024-03-22] MEDS: Insulin Aspart 300 UNITS/3 ML PEN SC ×4 (01:58→18:10)
[2024-03-22] MEDS: MORPHine 4 MG/ML SYR IVP ×7 (04:17→23:17)
[2024-03-22] MEDS: LORazepam 2 MG/ML VIAL 1 MG IVP ×2 (04:17→19:22)
[2024-03-22] MEDS: DEXTROSE 5%-0.45% SALINE 1,000 ML 125 ML IV (05:08)
[2024-03-22] MEDS: levETIRAcetam 500 MG in Normal Saline 100 ML 400 MG IVPB ×2 (06:57→18:17)
[2024-03-22 07:06] LABS: Abs Immature Grans 0.17 10^3/uL (0.0-0.06); Absolute Lymphocyte Count 1.13 10^3/uL (1.2-3.4); Basophils % 0.2; Eosinophils % 0.1; HCT 29.3 % (40.0-50.0); HGB 9.4 g/dL (13.5-17.5); Immature Grans % 0.8; Lymphocytes % 5.5; MCHC 32.1 % (32.0-36.0); MCV 87 fL (80-95); MPV 10.6 fL (8.0-11.0); Monocytes % 5.2; Neutrophils % 88.2; Platelet Count 294 10^3/uL (130-400); RBC 3.36 10^6/uL (4.36-5.78); RDW 15.5 % (11.8-14.1); WBC 20.62 10^3/uL (4.4-10.8)
[2024-03-22 07:23] LABS: Absolute Basophil Count 0.04 10^3/uL (0.0-0.2); Absolute Eosinophil Count 0.02 10^3/uL (0.0-0.7); Absolute Monocyte Count 1.07 10^3/uL (0.1-0.8); Absolute Neutrophil Count 18.19 10^3/uL (1.2-6.7)
[2024-03-22 07:24] LABS: Anion Gap 8.3 mmol/L (3-11); BUN 26 mg/dL (7-18); CO2 26.7 mmol/L (21.0-32.0); CREATININE 0.7 mg/dL (0.70-1.30); Calcium 7.8 mg/dL (8.5-10.1); Chloride 113 mmol/L (98-107); Glucose 295 mg/dL (74-106); Magnesium 1.9 mg/dL (1.8-2.4); Sodium 148 mmol/L (136-145)
[2024-03-22 07:53] LABS: Potassium 2.9 mmol/L (3.5-5.1)
[2024-03-22] MEDS: Albuterol/Ipratropium 3 ML UPD VIAL UPD (08:00)
[2024-03-22] MEDS: cefTRIAXone 2 GM/50 ML BAG IVPB (08:04)
[2024-03-22] MEDS: Enoxaparin 40 MG/0.4 ML SYR SC (08:05)
[2024-03-22] MEDS: Insulin Glargine 300 UNITS/3 ML PEN 15 UNITS SC (08:06)
[2024-03-22] MEDS: POTASSIUM CHLORIDE 10 MEQ/100 ML BAG 100 MEQ IVINF ×4 (10:00→15:48)
[2024-03-22] MEDS: Normal Saline Flush 10 ML SYR IVP ×2 (10:00→14:13)
--- NOTE | 2024-03-22 10:25 | PGE_ITS ---
Date of Service Date of service: 03/22/24 Time of Service: 10:25 Assessment and Plan Assessment and plan (1) Dysphagia due to old stroke: Status: Acute Assessment and plan: Continued concern regarding aspiration issues he has had no PO intake, continues to be less responsive, Followed by palliative care Currently he is not taking PO meds or food (2) Spell of altered consciousness: Status: Acute Assessment and plan: remains less responsive but withdrawing when lab trying to draw him. (3) Opiate dependence, continuous: Status: Chronic Assessment and plan: Hold oral meds; IV meds ordered (4) Chronic pain: Status: Chronic Assessment and plan: as above. 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 Qualifiers: Hyperlipidemia type: mixed hyperlipidemia Qualified Code(s): E78.2 - Mixed hyperlipidemia (10) Hypothyroidism (acquired): Status: Chronic Assessment and plan: Continue supplementation without change. (11) Constipation due to opioid therapy: Status: Acute Assessment and plan: not taking po (12) Failure to thrive in adult: Status: Chronic Assessment and plan: Patient needs continued care. Placement is ongoing with planned home care placement pending 03/25/24. Palliative care is seeing Mr. Caballero as well. He isn't taking PO currenlty with his decline Discussed with Dr Stranathan Subjective Subjective Patient reports: no new complaints and afebrile; denies tolerating liquids well or shortness of breath Interval history since last seen: Still not interacting at baseline with staff. Resting comfortably with no acute distress. Remains n.p.o. Exam Narrative Exam Narrative: Frail older than stated age chronically ill-appearing male in no acute distress, ,no responding verbally to questions, staring at me. Head is atraumatic Respirations are even and unlabored Cardiovascular regular rate and rhythm well-perfused Abdomen no guarding soft michel with concentrated cloudy urine Extremities are without edema Oral mucosa slightly dry neck with no JVD full range of motion Eyes nonicteric noninjected Objective Last Vital Signs Temp 37.5 C 03/22/24 08:44 Pulse 119 H 03/22/24 08:44 Resp 20 03/22/24 08:44 BP 136/63 03/22/24 08:44 Pulse Ox 93 03/22/24 08:44 Laboratory Results - last 24 hr 03/22/24 06:15 WBC 20.62 H RBC 3.36 L Hgb 9.4 L Hct 29.3 L MCV 87 MCH 28.0 MCHC 32.1 RDW 15.5 H Plt Count 294 MPV 10.6 Immature Gran % 0.8 Neutrophils % 88.2 Lymphocytes % 5.5 Monocytes % 5.2 Eosinophils % 0.1 Basophils % 0.2 Nucleated RBC % 0.0 Absolute Neutrophils 18.19 H Absolute Lymphocytes 1.13 L Absolute Monocytes 1.07 H Absolute Eosinophils 0.02 Absolute Basophils 0.04 Sodium 148 H Potassium 2.9 L* Chloride 113 H Carbon Dioxide 26.7 Anion Gap 8.3 BUN 26 H Creatinine 0.7 Est GFR (CKD-EPI 2020) 97.90 Glucose 295 H Calcium 7.8 L Magnesium 1.9 Time Spent with Patient Time Spent with Patient: 25-34 minutes Time was spent: preparing to see the patient(eg.review tests), obtaining and/or reviewing separately otained hiistory, ordering medications,tests, procedures, indepentently interpreting results and counseling the patient
[2024-03-22] MEDS: AZITHROMYCIN 500 MG in Normal Saline 250 ML 250 MG IVPB (12:17)
--- NOTE | 2024-03-22 16:09 | NUR.NOTE ---
pt refusing to have labs drawn at this time. Lola ESPINOZA notified
[2024-03-22] MEDS: POTASSIUM CHLORIDE/0.45% NACL 1,000 ML 80 MEQ IV (16:55)
[2024-03-23] VITALS (9 sets, daily range): BP systolic 124–150; BP diastolic 48–66; PULSE 84–97; RESP 8–22; TEMP 35.6–36.9; O2SAT 92–97
[2024-03-23] MEDS: MORPHine 4 MG/ML SYR IVP ×10 (03:56→23:37)
[2024-03-23] MEDS: levETIRAcetam 500 MG in Normal Saline 100 ML 400 MG IVPB ×2 (06:03→18:15)
[2024-03-23] MEDS: LORazepam 2 MG/ML VIAL 1 MG IVP ×2 (06:08→21:55)
[2024-03-23 06:51] LABS: Abs Immature Grans 0.04 10^3/uL (0.0-0.06); Absolute Basophil Count 0.05 10^3/uL (0.0-0.2); Absolute Eosinophil Count 0.25 10^3/uL (0.0-0.7); Absolute Lymphocyte Count 1.13 10^3/uL (1.2-3.4); Absolute Monocyte Count 0.61 10^3/uL (0.1-0.8); Absolute Neutrophil Count 8.13 10^3/uL (1.2-6.7); Basophils % 0.5; Eosinophils % 2.4; HGB 8.7 g/dL (13.5-17.5); Immature Grans % 0.4; Lymphocytes % 11.1; MCH 28.1 pg (27.0-33.0); MCHC 32.2 % (32.0-36.0); MCV 87 fL (80-95); MPV 10.6 fL (8.0-11.0); Neutrophils % 79.6; Platelet Count 262 10^3/uL (130-400); RDW 15.1 % (11.8-14.1); RDW-SD 47.7 fL; WBC 10.21 10^3/uL (4.4-10.8)
[2024-03-23] MEDS: POTASSIUM CHLORIDE/0.45% NACL 1,000 ML 80 MEQ IV ×2 (06:51→18:35)
[2024-03-23 07:00] LABS: Anion Gap 7.4 mmol/L (3-11); BUN 19 mg/dL (7-18); CO2 25.6 mmol/L (21.0-32.0); CREATININE 0.7 mg/dL (0.70-1.30); Calcium 7.8 mg/dL (8.5-10.1); Chloride 115 mmol/L (98-107); Glucose 156 mg/dL (74-106); Potassium 3.4 mmol/L (3.5-5.1); Sodium 148 mmol/L (136-145)
[2024-03-23] MEDS: Albuterol/Ipratropium 3 ML UPD VIAL UPD ×2 (08:03→15:23)
--- NOTE | 2024-03-23 08:19 | STREC_ITS ---
Date of service: 03/23/24 Time of Service: 08:15 Speech Therapy Recommendations Report ST Recommendations: CROWN CERAMIST re-assessment attempted. Patient received in bed, somnolent/unable to arouse with intermittent moaning. He has been NPO since Tuesday 03/20 in light of non- responsive state, currently receiving IV fluids/no nutrition. Nursing reports frequent oral care with suction swab, recently completed this morning, with thick secretions removed. Unable to arouse patient adequately for PO trials this morning. Encourage ongoing frequent oral care with suction swab/laurakauer followed by application of oral gel moisturizer (in suction swab kits). If patient adequately aroused/able to demonstrate labial seal/lingual movement, consider ice chips for pleasure, after oral care and in bolt upright position. Patient status changed to DNR/DNI last week - Awaiting further discussion re: goals of care.
[2024-03-23] MEDS: cefTRIAXone 2 GM/50 ML BAG IVPB (08:21)
--- NOTE | 2024-03-23 09:15 | PDOC.CMPRO ---
Date of service: 03/23/24 Time of Service: 09:15 Care Management Progress Note Progress Note Text Progress Note Text: S/O:Ed was laying in bed, HOB elevated being accessed by nursing when CM met with him. His eyes are open although he does not engage with CM. Per nursing, Ed has been more alert today. This morning he was singing and acting more like Ed. He was evaluated by ST this afternoon and had a PO trial of ice chips and apple sauce. He tolerated the ice chips, apple sauce required suctioning. He is receiving IV hydration, nutrition still a concern, tube feeding is being discussed, per provider. Ed's medical team and family met last week and his code status was changed DNR/DNI. Of note, Both Alejandra and Stephen stated that while they do not want Ed to suffer, they would like to continue treatment with medications and antibiotics for a few days to see if he improves. If he does not, they may consider comfort measures. A: Ed is a 73 year old man admitted on 10/31/23 with pneumonia . P: Ed's code status was changed to DNR/DNI following a decline in his condition. He is quite ill at the moment and plans to transfer him to a different setting are on hold at the moment. CM will continue to follow and offer support to both Ed and his family. SDOH(Care Management) Screening Will the Patient Participate in the Screening?: Unable to obtain
[2024-03-23] MEDS: Enoxaparin 40 MG/0.4 ML SYR SC (10:14)
[2024-03-23] MEDS: Normal Saline Flush 10 ML SYR IVP ×3 (10:15→15:20)
[2024-03-23] MEDS: AZITHROMYCIN 500 MG in Normal Saline 250 ML 250 MG IVPB (10:27)
[2024-03-23] MEDS: Insulin Aspart 300 UNITS/3 ML PEN SC (12:39)
--- NOTE | 2024-03-23 13:12 | PGE_ITS ---
Date of Service Date of service: 03/23/24 Time of Service: 13:12 Assessment and Plan Assessment and plan (1) Pneumonia, aspiration: Status: Acute Assessment and plan: now remains NPO white count normalized, afebrile continue ceftriaxone and azithromycin day 4/5 (2) Dysphagia due to old stroke: Status: Acute Assessment and plan: Continued concern regarding aspiration issues he has had no PO intake, continues to be less responsive, Followed by palliative care Currently he is not taking PO meds or food (3) Type 2 diabetes mellitus: Status: Chronic Assessment and plan: npo, dextrose removed from IV fluids d/t hyperglycemia, stopped basal insulin, continue q6h checks with prn coverage. Qualifiers: Diabetes mellitus intermediate insulin use: with intermediate use Diabetes mellitus complication status: with neurologic complications Diabetes mellitus complication detail: with polyneuropathy Qualified Code(s): E11.42 - Type 2 diabetes mellitus with diabetic polyneuropathy; Z79.4 - group home (current) use of insulin (4) Spell of altered consciousness: Status: Acute Assessment and plan: waxes and wanes (5) Opiate dependence, continuous: Status: Chronic Assessment and plan: Hold oral meds; IV meds ordered (6) Chronic pain: Status: Chronic Assessment and plan: as above. 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 follow am labs (9) Benign prostatic hyperplasia with urinary retention: Status: Chronic Assessment and plan: Will not remove michel catheter as once discussed secondary to his decline (10) Hyperlipidemia: Status: Chronic Assessment and plan: Continue statin therapy. Qualifiers: Hyperlipidemia type: mixed hyperlipidemia Qualified Code(s): E78.2 - Mixed hyperlipidemia (11) Hypothyroidism (acquired): Status: Chronic Assessment and plan: Continue supplementation without change. (12) Constipation due to opioid therapy: Status: Acute Assessment and plan: not taking po (13) Septic shock: Status: Resolved Assessment and plan: from aspiration pneumonia which is being treated. (14) Failure to thrive in adult: Status: Chronic Assessment and plan: Patient needs continued care. Placement is ongoing with planned home care placement pending 03/25/24. Palliative care is seeing Mr. Caballero as well. He isn't taking PO currenlty with his decline Discussed with Dr Perdue Subjective Subjective Patient reports: no new complaints and afebrile; denies tolerating liquids well, tolerating a regular diet or shortness of breath Interval history since last seen: remains NPO, allowed labs to be drawn this morning. Exam Narrative Exam Narrative: Frail older than stated age chronically ill-appearing male in no acute distress, ,no responding verbally to questions, staring at me. Head is atraumatic Respirations are even and unlabored Cardiovascular regular rate and rhythm well-perfused Abdomen no guarding soft michel with concentrated cloudy urine Extremities are without edema Oral mucosa slightly dry neck with no JVD full range of motion Eyes nonicteric noninjected Objective Last Vital Signs Temp 36.9 C 03/23/24 12:26 Pulse 97 H 03/23/24 12:26 Resp 18 03/23/24 12:26 BP 129/65 03/23/24 12:26 Pulse Ox 95 03/23/24 12:26 Laboratory Results - last 24 hr 03/22/24 03/23/24 16:00 06:40 WBC 10.21 RBC 3.10 L Hgb 8.7 L Hct 27.0 L MCV 87 MCH 28.1 MCHC 32.2 RDW 15.1 H Plt Count 262 MPV 10.6 Immature Gran % 0.4 Neutrophils % 79.6 Lymphocytes % 11.1 Monocytes % 6.0 Eosinophils % 2.4 Basophils % 0.5 Nucleated RBC % 0.0 Absolute Neutrophils 8.13 H Absolute Lymphocytes 1.13 L Absolute Monocytes 0.61 Absolute Eosinophils 0.25 Absolute Basophils 0.05 Sodium 148 H Potassium Cancelled 3.4 L Chloride 115 H Carbon Dioxide 25.6 Anion Gap 7.4 BUN 19 H Creatinine 0.7 Est GFR (CKD-EPI 2020) 97.90 Glucose 156 H Calcium 7.8 L Time Spent with Patient Time Spent with Patient: 35-49 minutes Time was spent: preparing to see the patient(eg.review tests), obtaining and/or reviewing separately otained hiistory, ordering medications,tests, procedures, referring, communicating with other health family day care worker and indepentently interpreting results
--- NOTE | 2024-03-23 13:56 | SPP_ITS ---
Date of service: 03/23/24 Time of Service: 13:00 Subjective CLINICAL INFORMATICIST with second attempt this afternoon. Patient received notably more alert/awake in bed. He was smiling and singing, demonstrating confusion such as placing handle of spoon in mouth or pointing up towards ceiling. Objective/Assessment/Plan Objective Treatment Techniques & Outcomes: Respiratory Status: Room air Positioning: [place] upright 90 degrees in bed, frequent repositioning/pillows needed to avoid lean to left PO Trials: Ice chips 1/2 tsp applesauce x 2 Oral Care: Completed before/after PO using suction swab Oral gel moisturizer applied at end of session Patient fully agreeable to mouthcare this date Oral Phase: Did not initiate AP transit, with applesauce residue removed with suctioning Pharyngeal Phase: Clear vocal quality breathing at onset of session, wet voice noted after trial of applesauce Delayed swallow initiation Decreased hyolaryngeal movement Swallow reflex appears incomplete Patient/Caregiver/Staff Education: Education provided to nsg re: findings/recommendations Assessment Ed presented as awake/alert and pleasantly confused. Following oral care, limited PO trials were completed with ice chips and very small amount of applesauce. Patient tolerated small ice chips very well (limited swallow efforts required in light of xerostomia). With trials of 1/2 tsp applesauce, patient did not consistently initiate lingual transit and oral suctioning was required to remove residue. In addition, wet vocal quality appreciated afterwards. Ed appears to have demonstrated notable decline in swallow function across the past week in the setting of deconditioned status/recent hypoxia event. While current dysphagia is exacerbated by confusion, anticipate pharyngeal disuse atrophy. Patient not currently able to meet nutritional/hydrational needs orally. Encourage ongoing family discussion re: goals of care. Recommend continue NPO, with frequent oral care. If alert, rec frequent ice chips for comfort/pleasure/therapeutic benefit as outlined below. Plan Plan: CLINICAL INFORMATICIST to continue to follow, 3-4x/weekly for 1-2 weeks DIET: NPO RISK MANAGEMENT/ORAL CARE RECOMMENDATIONS (Q3-4 hours) - Ensure patient is in BOLT upright position, 90 degrees - Use suction swab kit. Hoa beneficial for removing excess thick secretions - IF ALERT: Small, single ice chips one at a time - At completion of ice chips, encourage application of oral gel moisturizer - Ensure HOB elevated 30 degrees at all times Goals: Correction Goals: Patient will remain free from aspiration-related illness, malnutrition, and dehydration. Short Term Goals: Patient will tolerate Puree Diet and Thin liquids without overt s/s aspiration across 2/2 visits. Patient will tolerate PO trials for consideration of diet upgrade without overt s/s aspiration across 2/2 visits.
[2024-03-24] MEDS: MORPHine 4 MG/ML SYR IVP ×9 (01:05→21:16)
[2024-03-24] MEDS: LORazepam 2 MG/ML VIAL 1 MG IVP ×4 (01:29→23:33)
[2024-03-24] MEDS: Normal Saline Flush 10 ML SYR IVP ×7 (01:29→20:12)
[2024-03-24] MEDS: levETIRAcetam 500 MG in Normal Saline 100 ML 400 MG IVPB ×2 (06:33→18:26)
[2024-03-24 07:05] LABS: Abs Immature Grans 0.04 10^3/uL (0.0-0.06); Absolute Basophil Count 0.04 10^3/uL (0.0-0.2); Absolute Eosinophil Count 0.51 10^3/uL (0.0-0.7); Absolute Lymphocyte Count 0.96 10^3/uL (1.2-3.4); Absolute Monocyte Count 0.57 10^3/uL (0.1-0.8); Basophils % 0.5; Eosinophils % 5.9; HCT 26.6 % (40.0-50.0); HGB 8.5 g/dL (13.5-17.5); Immature Grans % 0.5; Lymphocytes % 11.1; MCH 28.1 pg (27.0-33.0); MCV 88 fL (80-95); MPV 9.9 fL (8.0-11.0); Monocytes % 6.6; Neutrophils % 75.4; Platelet Count 278 10^3/uL (130-400); RBC 3.02 10^6/uL (4.36-5.78); RDW 14.8 % (11.8-14.1); RDW-SD 47.8 fL; WBC 8.62 10^3/uL (4.4-10.8)
[2024-03-24 07:18] LABS: BUN 17 mg/dL (7-18); CREATININE 0.6 mg/dL (0.70-1.30); Calcium 7.8 mg/dL (8.5-10.1); Chloride 110 mmol/L (98-107); Estimated GFR 102.56 (mL/min/1.73m2); Glucose 133 mg/dL (74-106); Potassium 3.3 mmol/L (3.5-5.1); Sodium 144 mmol/L (136-145)
[2024-03-24] MEDS: cefTRIAXone 2 GM/50 ML BAG IVPB (08:00)
--- NOTE | 2024-03-24 08:42 | PDOC.CMPRO ---
Date of service: 03/24/24 Time of Service: 08:42 Care Management Progress Note Progress Note Text Progress Note Text: S/O: Ed was sleeping when CM attempted to meet with him a few times throughout the day. He met with speech therapy and palliative care today. Per report, he appeared to be more alert while awake today, although he continues to have communication challenges. Palliative has scheduled a family meeting for tomorrow morning to discuss whether or not Ed should have a feeding tube, as speech therapy does not feel that he will be able to eat/drink enough on his own to maintain his weight. CM provided an update to Marquita Renee [facility], who stated that she would update his caregiver, as Ed was scheduled to discharge to her home tomorrow, which has been postponed at this time. CM will continue to follow. A: Ed is a 73 year old man admitted on 10/31/23 with pneumonia . P: Ed's code status was changed to DNR/DNI following a decline in his condition. He is quite ill at the moment and plans to transfer him to a different setting are on hold at the moment. CM will continue to follow and offer support to both Ed and his family. SDOH(Care Management) Screening Will the Patient Participate in the Screening?: Unable to obtain
[2024-03-24] MEDS: Enoxaparin 40 MG/0.4 ML SYR SC (09:13)
[2024-03-24] MEDS: AZITHROMYCIN 500 MG in Normal Saline 250 ML 250 MG IVPB (11:02)
[2024-03-24 11:36] VITALS: PULSE 89; RESP 8; RESP 9; O2SAT 96
[2024-03-24] MEDS: Albuterol/Ipratropium 3 ML UPD VIAL UPD ×2 (11:36→15:29)
[2024-03-24 11:50] VITALS: PULSE 86; RESP 8; RESP 9; O2SAT 98
--- NOTE | 2024-03-24 12:16 | PGE_ITS ---
Date of Service Date of service: 03/24/24 Time of Service: 12:16 Assessment and Plan Assessment and plan (1) Pneumonia, aspiration: Status: Acute Assessment and plan: now remains NPO white count normalized, afebrile continue ceftriaxone and azithromycin day 03/29 (2) Dysphagia due to old stroke: Status: Acute Assessment and plan: Continued concern regarding aspiration issues he has had no PO intake, continues to be less responsive, Followed by palliative care Currently he is not taking PO meds or food (3) Type 2 diabetes mellitus: Status: Chronic Assessment and plan: npo, dextrose removed from IV fluids d/t hyperglycemia, stopped basal insulin, continue q6h checks with prn coverage. Qualifiers: Diabetes mellitus complication detail: with polyneuropathy Diabetes mellitus complication status: with neurologic complications Diabetes mellitus long term acute care registered nurse insulin use: with alf use Qualified Code(s): E11.42 - Type 2 diabetes mellitus with diabetic polyneuropathy; Z79.4 - shelter (current) use of insulin (4) Spell of altered consciousness: Status: Acute Assessment and plan: waxes and wanes (5) Opiate dependence, continuous: Status: Chronic Assessment and plan: Hold oral meds; IV meds ordered (6) Chronic pain: Status: Chronic Assessment and plan: as above. 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 follow am labs (9) Benign prostatic hyperplasia with urinary retention: Status: Chronic Assessment and plan: Will not remove michel catheter as once discussed secondary to his decline (10) Hyperlipidemia: Status: Chronic Assessment and plan: Continue statin therapy. Qualifiers: Hyperlipidemia type: mixed hyperlipidemia Qualified Code(s): E78.2 - Mixed hyperlipidemia (11) Hypothyroidism (acquired): Status: Chronic Assessment and plan: Continue supplementation without change. (12) Constipation due to opioid therapy: Status: Acute Assessment and plan: not taking po (13) Septic shock: Status: Resolved Assessment and plan: from aspiration pneumonia which is being treated. (14) Failure to thrive in adult: Status: Chronic Assessment and plan: Patient needs continued care. Placement is ongoing with planned home care placement pending 03/25/24. Palliative care is seeing Mr. Caballero as well. He isn't taking PO currenlty with his decline Discussed with Dr Perdue Subjective Subjective Patient reports: no new complaints Exam Narrative Exam Narrative: Frail older than stated age chronically ill-appearing male in no acute distress, ,no responding verbally to questions, staring at me. Head is atraumatic Respirations are even and unlabored Cardiovascular regular rate and rhythm well-perfused Abdomen no guarding soft michel with concentrated cloudy urine Extremities are without edema Oral mucosa slightly dry neck with no JVD full range of motion Eyes nonicteric noninjected Objective Last Vital Signs Temp 36.7 C 03/23/24 23:07 Pulse 89 03/24/24 11:36 Resp 18 03/23/24 23:07 BP 150/56 H 03/23/24 23:07 Pulse Ox 96 03/24/24 11:36 Laboratory Results - last 24 hr 03/24/24 06:45 WBC 8.62 RBC 3.02 L Hgb 8.5 L Hct 26.6 L MCV 88 MCH 28.1 MCHC 32.0 RDW 14.8 H Plt Count 278 MPV 9.9 Immature Gran % 0.5 Neutrophils % 75.4 Lymphocytes % 11.1 Monocytes % 6.6 Eosinophils % 5.9 Basophils % 0.5 Nucleated RBC % 0.0 Absolute Neutrophils 6.50 Absolute Lymphocytes 0.96 L Absolute Monocytes 0.57 Absolute Eosinophils 0.51 Absolute Basophils 0.04 Sodium 144 Potassium 3.3 L Chloride 110 H Carbon Dioxide 25.0 Anion Gap 9.0 BUN 17 Creatinine 0.6 L Est GFR (CKD-EPI 2020) 102.56 Glucose 133 H Calcium 7.8 L Time Spent with Patient Time Spent with Patient: 25-34 minutes Time was spent: preparing to see the patient(eg.review tests), obtaining and/or reviewing separately otained hiistory, ordering medications,tests, procedures, indepentently interpreting results and counseling the patient
[2024-03-24 13:04] VITALS: BP 129/68; PULSE 89; RESP 14; TEMP 36.8; O2SAT 97
--- NOTE | 2024-03-24 14:27 | SPP_ITS ---
Date of service: 03/24/24 Time of Service: 12:45 Subjective Patient was contacted at bedside this date for PO trials with nursing assisting with oral care initially. He does appear somewhat interested in PO trials this date. Objective/Assessment/Plan Objective Treatment Techniques & Outcomes: Respiratory Status: Room air Positioning: [place] upright 90 degrees in bed, frequent repositioning/pillows needed to avoid lean to left PO Trials: Ice chips 1/2 tsp water 1/2 tsp applesauce x 3 Oral Care: Completed before/after PO using suction swab Patient fully agreeable to mouthcare this date Oral Phase: Attempts self-feeding with [facility] assist/guidance and adequate spoon stripping. Noting anterior loss during oral care and thin liquid trials. Partial A/P transit with applesauce, improved over previous date, but still incomplete with need to suction. Poor vs absent A/P transit with liquid, at times patient attempting head tilt resulting in s/x aspiration. Pharyngeal Phase: Clear vocal quality breathing at onset of session, wet voice and cough noted after trials of thin liquid with head tilt. Delayed vs absent swallow initiation Decreased hyolaryngeal movement Swallow reflex appears incomplete Patient/Caregiver/Staff Education: Education provided to nsg re: findings/recommendations Assessment Ed presented as awake/alert but appearing very slow and fatigued, endorsing sadness and nearly tearful at end of session. Following oral care, limited PO trials were completed with ice chips, thin liquids via tsp and very small amount of applesauce. Patient tolerated small ice chips very well (limited swallow efforts required in light of xerostomia). With trials of 1/2 tsp applesauce, patient did not consistently initiate lingual transit and oral suctioning was required to remove residue, though this may have been mildly improved over yesterday. He was with poor tolerance of very small sips of thin liquids this date, requiring head tilt to achieve a/p transit, but also with s/sx aspiration. Ed appears with stable swallow function over yesterday, but overall notable decline in swallow function across the past week in the setting of deconditioned status/recent hypoxia event. While current dysphagia is exacerbated by confusion, anticipate pharyngeal disuse atrophy. Patient not currently able to meet nutritional/hydration needs orally. Encourage ongoing family discussion re: goals of care. Recommend continue NPO, with frequent oral care. If no alternative means of nutrition will be offered, recommend to offer patient preferred small bites of purees when alert, for comfort/if interested. Keep suction on standby to clear residue from each bite. Continue to recommend frequent ice chips for comfort/pleasure/therapeutic benefit as outlined below. Plan Plan: REGULATORY AFFAIRS ASSOCIATE to continue to follow, 3-4x/weekly for 1-2 weeks DIET: RISK MANAGEMENT/ORAL CARE RECOMMENDATIONS (Q3-4 hours) - Ensure patient is in BOLT upright position, 90 degrees - Use suction swab kit. [place] beneficial for removing excess thick secretions - IF ALERT: Small, single ice chips one at a time and limited SMALL bites puree for comfort. - Use yankauer suction to remove oral residue after each bite/ice chip. - At completion of PO trials, encourage application of oral gel moisturizer - Ensure HOB elevated 30 degrees at all times Goals: Cork Painter And Grader Goals: Patient will remain free from aspiration-related illness, malnutrition, and dehydration. Short Term Goals: Patient will tolerate Puree Diet and Thin liquids without overt s/s aspiration across 2/2 visits. Patient will tolerate PO trials for consideration of diet upgrade without overt s/s aspiration across 2/2 visits. Recommendations Total Time Spent: 20 minutes: 12:45-13:05
--- NOTE | 2024-03-24 15:28 | W.PALPGNOTE ---
Date of service: 03/24/24 Time of Service: 15:39 Assessment and Plan Assessment and plan (1) Dysphagia due to old stroke: Status: Acute Assessment and plan: - - Patient appears much more awake today and getting back to his old baseline. Was willing to work with speech therapy today. DIRECTOR OF STRATEGIC SALES feels that dysphagia actually worse than it was a few weeks ago. Basically he would be unable to swallow enough food to maintain his weight. I asked him today if he was hungry. HE shook his head yes and then spoke for a long time(mumbling speech)., using hand gestures. Unfortunately , unfortunately I did not understand a word. I pointed to his stomach and described where a feeding tube would good and what it would be used for. I do not think he understand what I was saying. Family meeting tomorrow morning to evaluate his progress and change in status since last week. Decision will need to be made whether to move to comfort measures only with small tastes and sips for comfort. This will likely result in both weight loss and ultimately another aspiration pneumonia. The Other option is to have feeding tube placed; this will not totally eliminate risk of aspiration. However, hopefully it would allow him to maintain or even regaining weight. Perhaps with some improved nutrition he may be able to resume swallowing safely again. (2) Pneumonia, aspiration: Status: Acute Assessment and plan: - - Patient appears to be recovering from most recent episode of aspiration and possible aspiration pneumonia. No longer needing supplemental oxygen. Unfortunately these episodes are recurrent, they are happening more frequently, and he seems to become sicker each time it happens. (3) Opiate dependence, continuous: Status: Chronic Assessment and plan: - - Patient currently written for as needed morphine. He is receiving 4 mg of IV morphine for total10 doses last 24 hours (40mg IV Morphine or 120 mg MME). 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 He does not seem to be exhibiting sxs of withdrawal at this time. Given his significant aphasia, recommend: Start fentanyl patch 12 mcg, change every 3 days. Continue IV morphine 4 mg every 1-2 hours as needed for SOB or pain. Re-evaluate in 2-3 days and consider increasing fentanyl patch to 25 mcg (4) Hemiparesis affecting right side as late effect of cerebrovascular accident: Status: Acute Assessment and plan: COnsider resuming PT. COnsider OOB to chair or even wheelchair trip outside on nice days (he went out for eclipse) as clinically improving. (5) Failure to thrive in adult: Status: Chronic Assessment and plan: Weights: April 2023 98 kg (when he had the first stroke) November 2023: 71.8 kg 03/18/24 : 65.9 kg (6) Palliative care patient: Status: Acute Assessment and plan: Phone call with daughter Alejandra today: She visited him yesterday and thought he was much worse, looked like he was dying...much worse than Saturday. SHe cannot come in today for meeting, but will come in tomorrow at 9 for meeting. On Saturday, Alejandra switched Ed's code status to DNR/DNI but transfer and treat abx and IV fluids. Both Ed and Alejandra wanted to continue abx and treatment and then reevaluate after the weekend. TO my eyes, Ed is clearly better today than he was 5 days ago, getting back to baseline of 2 weeks ago. We will have to have a GOals of Care meeting with children to discuss whether Ed would want a feeding tube placed. 16 to 30 minutes spent today on Advance Care Planning. Patient and family participated voluntarily. Advance care planning may include (not limited to) explanation and discussion of advance directives, choosing and appointing healthcare agents, alternatives to various ACP tools, discussion of (and if indicated, completion of) COLST form, discussion of patient's values and overall goals for treatment, palliative and disease directive care options, ways to avoid hospital readmission including hospice discussions, care preferences should the patient's several other adverse health events.See today's palliative care note for additional information. This note was dictated using speech recognition software. Attempt was made at proofreading, but errors may be present. Please call with questions. Family meeting 03/25/2024 at 9 AM Subjective Subjective Interval history since last seen: Follow-up visit with patient today. I had hoped to set up a Family meeting with daughter Alejandra Caballero, case management and hospitalist to reevaluate in follow-up from last week. Unfortunately daughter not available today but is willing to meet tomorrow at 9 AM. I received various reports regarding the patient and his clinical status over the last 48 hours. Daughter tells me that she thought he was dying last night, he was unresponsive seemed to have trouble breathing. On the other hand, speech therapy reports that patient was willing to engage in swallowing trials today (they note decreased ability to safely swallow even compared to 2 weeks ago and do not feel he is safe to swallow at all) Respiratory therapy reports that he has not required any supplemental oxygen for the last 4 days. Notes from family meeting on March 20: Son and daughter wanted to continue antibiotics and IV fluids, but hold in feeding tube for now. They want to reevaluate after the weekend and see how at head done over the weekend. Exam Narrative Exam Narrative: Thin elderly gentleman laying in the bed. Soft booties on feet revealing multiple partial toe and foot amputations. No respiratory distress. Respiratory rate about 18. No audible breathing (improved from when I last saw him 5 days ago) Initially dozing. Opens eyes to voice. Vocalizing and trying to talk, I am unable to understand what he is trying to say to me. Uses his left hand to try and just his glasses. When asked to point at certain objects, he does not. This is consistent. Objective Last Vital Signs Temp 36.8 C 03/24/24 13:04 Pulse 89 03/24/24 13:04 Resp 14 03/24/24 13:04 BP 129/68 03/24/24 13:04 Pulse Ox 97 03/24/24 13:04 Laboratory Results - last 24 hr 03/24/24 06:45 WBC 8.62 RBC 3.02 L Hgb 8.5 L Hct 26.6 L MCV 88 MCH 28.1 MCHC 32.0 RDW 14.8 H Plt Count 278 MPV 9.9 Immature Gran % 0.5 Neutrophils % 75.4 Lymphocytes % 11.1 Monocytes % 6.6 Eosinophils % 5.9 Basophils % 0.5 Nucleated RBC % 0.0 Absolute Neutrophils 6.50 Absolute Lymphocytes 0.96 L Absolute Monocytes 0.57 Absolute Eosinophils 0.51 Absolute Basophils 0.04 Sodium 144 Potassium 3.3 L Chloride 110 H Carbon Dioxide 25.0 Anion Gap 9.0 BUN 17 Creatinine 0.6 L Est GFR (CKD-EPI 2020) 102.56 Glucose 133 H Calcium 7.8 L
[2024-03-24 15:29] VITALS: PULSE 88; O2SAT 96
[2024-03-24 15:33] VITALS: PULSE 86; O2SAT 98
[2024-03-24] MEDS: POTASSIUM CHLORIDE/0.45% NACL 1,000 ML 80 MEQ IV (20:13)
[2024-03-24] MEDS: Bisacodyl 10 MG SUPP PR (23:55)
[2024-03-25] MEDS: MORPHine 4 MG/ML SYR IVP ×6 (01:04→20:14)
[2024-03-25] MEDS: LORazepam 2 MG/ML VIAL 1 MG IVP ×2 (05:53→15:29)
[2024-03-25] MEDS: levETIRAcetam 500 MG in Normal Saline 100 ML 400 MG IVPB ×2 (06:20→20:14)
[2024-03-25 07:19] VITALS: BP 133/70; PULSE 109; RESP 18; TEMP 36.7; O2SAT 93
[2024-03-25] MEDS: Normal Saline Flush 10 ML SYR IVP ×2 (07:46→20:15)
[2024-03-25 08:29] VITALS: PULSE 101; RESP 16; O2SAT 94
[2024-03-25] MEDS: Enoxaparin 40 MG/0.4 ML SYR SC (09:33)
[2024-03-25] MEDS: POTASSIUM CHLORIDE/0.45% NACL 1,000 ML 80 MEQ IV (09:34)
--- NOTE | 2024-03-25 09:47 | CMPROGNOTE_ITS ---
Date of service: 03/25/24 Time of Service: 09:47 Care Management Progress Note Progress Note Text Progress Note Text: S/O: Ed was lying in bed visiting with his daughter when CM met with him. He was quiet and had his eyes closed much of the time. Another Palliative meeting was held with Dr. Thomas and Alejandra, Ed's daughter. They again discussed goals of care and addressed Ed's nutritional challenges. Alejandra was unsure about a feeding tube and requested that it be discussed with her brother. In the end, Stephen felt that Ed would want to have a feeding tube to continue to improve his nutrition and strength. A surgical consult will be placed. In the meantime, a naso-gastric tube will be used for feeding. Ed was asked during the meeting about his preference regarding the tube hjowever he was unable to clearly give an answer. CM contacted Trudy Torres, Ed's prospective [facility] home provider and updated her. A: Ed is a 73 year old man admitted on 10/31/23 with pneumonia . P: Ed's code status was changed to DNR/DNI following a decline in his condition. A decision has been made to insert a feeding tube but it is not clear if it will be done at [facility] or elsewhere. Plans to transfer Ed to a different setting are on hold at the moment. CM will continue to follow and offer support to both Ed and his family. SDOH(Care Management) Screening Will the Patient Participate in the Screening?: Unable to obtain
[2024-03-25] MEDS: fentaNYL 25 MCG PATCH TD (13:01)
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
[2024-03-25 13:10] VITALS: BP 122/64; PULSE 98; TEMP 37
[2024-03-25 14:58] VITALS: BP 161/73; PULSE 98; TEMP 36.8
--- NOTE | 2024-03-25 16:59 | PDOC.STREC ---
Date of service: 03/25/24 Time of Service: 16:59 Speech Therapy Recommendations Report ST Recommendations: Attempting to contact patient x2 this date with PO trials. Patient unwilling to participate in oral care nor trials of ice chips, water, applesauce, or chocolate pudding. Patient's daughter and infant grandyolandater present this morning and attended meeting with palliative along with MANUFACTURING ADVISOR who was present for part of this meeting. See palliative notes for further details. Family meeting resulted in decision for pursuit of feeding tube placement to see if improved nutrition may result in strengthening and improvement of overall status. Surgery to be consulted. Hospitalist to consider NG placement in the interim. If no temporary or permanent tubes can be placed in the coming days consider re-starting PO diet. Before today's refusals, patient has shown mild improvement since the weekend, and may benefit from increased variety and offers of favorite foods (e.g., pureed squash) for therapeutic trials in addition to applesauce and pudding, etc. MANUFACTURING ADVISOR to check in with nsg/hospitalist in am regarding tube placement timeline and to attempt PO trials again before considering re-initiation of PO diet for therapeutic purposes. Plan Plan: MANUFACTURING ADVISOR to continue to follow, 3-4x/weekly for 1-2 weeks DIET: RISK MANAGEMENT/ORAL CARE RECOMMENDATIONS (Q3-4 hours) - Ensure patient is in BOLT upright position, 90 degrees - Use suction swab kit. Geoffreykauer beneficial for removing excess thick secretions - IF ALERT: Small, single ice chips one at a time and limited SMALL bites puree for comfort. - Use yankauer suction to remove oral residue after each bite/ice chip. - At completion of PO trials, encourage application of oral gel moisturizer - Ensure HOB elevated 30 degrees at all times Goals: Senior Care Goals: Patient will remain free from aspiration-related illness, malnutrition, and dehydration. Short Term Goals: Patient will tolerate Puree Diet and Thin liquids without overt s/s aspiration across 2/2 visits. Patient will tolerate PO trials for consideration of diet upgrade without overt s/s aspiration across 2/2 visits.
--- NOTE | 2024-03-25 17:50 | PGE_ITS ---
Date of Service Date of service: 03/25/24 Time of Service: 17:50 Assessment and Plan Assessment and plan (1) Dysphagia due to old stroke: Status: Acute Assessment and plan: Continued concern regarding aspiration issues he has had no PO intake, speech following Followed by palliative care, please see note but in brief family has decided on PEG tube placement, surgical consult placed Currently he is not taking PO meds or food, consider NGT if not able to place percutaneous tube timely (2) Pneumonia, aspiration: Status: Resolved Assessment and plan: remains NPO white count normalized, afebrile completed ceftriaxone and azithromycin day 03/29 (3) Type 2 diabetes mellitus: Status: Chronic Assessment and plan: npo, dextrose removed from IV fluids d/t hyperglycemia, stopped basal insulin, continue q6h checks with prn coverage. Qualifiers: Diabetes mellitus complication detail: with polyneuropathy Diabetes mellitus complication status: with neurologic complications Diabetes mellitus supervisor intermediates insulin use: with supervisor intermediates use Qualified Code(s): E11.42 - Type 2 diabetes mellitus with diabetic polyneuropathy; Z79.4 - senior care (current) use of insulin (4) Spell of altered consciousness: Status: Acute Assessment and plan: waxes and wanes (5) Opiate dependence, continuous: Status: Chronic Assessment and plan: has been started on fentanyl patch. prn morphine overnight if needed while patch takes full effect. adjust as needed. (6) Chronic pain: Status: Chronic Assessment and plan: as above. 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 Qualifiers: Hyperlipidemia type: mixed hyperlipidemia Qualified Code(s): E78.2 - Mixed hyperlipidemia (11) Hypothyroidism (acquired): Status: Chronic Assessment and plan: Continue supplementation when peg placed (12) Constipation due to opioid therapy: Status: Acute Assessment and plan: not taking po relistor if needed (13) Septic shock: Status: Resolved Assessment and plan: from aspiration pneumonia which was treated. (14) Failure to thrive in adult: Status: Chronic Assessment and plan: Patient needs continued care and now awaiting peg placement. Placement is with planned home care placement Palliative care following case management following Discussed with Dr Roberts Subjective Subjective Patient reports: denies tolerating liquids well, tolerating a regular diet, shortness of breath or afebrile Interval history since last seen: pulled out midline, communication remains challenging, appears more alert today Exam Narrative Exam Narrative: Frail older than stated age chronically ill-appearing male in no acute distress, ,cachectic, not responding verbally but does track me in room Head is atraumatic Respirations are even and unlabored Cardiovascular regular rate and rhythm Abdomen no guarding soft michel with concentrated cloudy urine Extremities are without edema Oral mucosa slightly dry neck with no JVD Eyes nonicteric noninjected Objective Last Vital Signs Temp 36.8 C 03/25/24 14:58 Pulse 98 H 03/25/24 14:58 Resp 16 03/25/24 08:29 BP 161/73 H 03/25/24 14:58 Pulse Ox 94 03/25/24 08:29 Time Spent with Patient Time Spent with Patient: 35-49 minutes Time was spent: obtaining and/or reviewing separately otained hiistory, ordering medications,tests, procedures, referring, communicating with other health health care social worker and indepentently interpreting results
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
[2024-03-25 20:36] VITALS: BP 130/55; PULSE 92; RESP 16; TEMP 35.4; O2SAT 97
[2024-03-26] MEDS: POTASSIUM CHLORIDE/0.45% NACL 1,000 ML 80 MEQ IV ×2 (01:49→13:54)
[2024-03-26] MEDS: levETIRAcetam 500 MG in Normal Saline 100 ML 400 MG IVPB (05:58)
[2024-03-26 07:28] VITALS: BP 152/61; PULSE 94; RESP 17; TEMP 36.3; O2SAT 97
[2024-03-26 07:58] LABS: Abs Immature Grans 0.05 10^3/uL (0.0-0.06); Absolute Basophil Count 0.05 10^3/uL (0.0-0.2); Absolute Eosinophil Count 0.51 10^3/uL (0.0-0.7); Absolute Lymphocyte Count 1.03 10^3/uL (1.2-3.4); Absolute Monocyte Count 0.65 10^3/uL (0.1-0.8); Absolute Neutrophil Count 7.19 10^3/uL (1.2-6.7); Basophils % 0.5 %; Eosinophils % 5.4 %; HCT 28.7 % (40.0-50.0); HGB 9.3 g/dL (13.5-17.5); Immature Grans % 0.5 %; Lymphocytes % 10.9 %; MCH 27.8 pg (27.0-33.0); MCHC 32.4 % (32.0-36.0); MCV 86 fL (80-95); MPV 9.8 fL (8.0-11.0); Monocytes % 6.9 %; Neutrophils % 75.8 %; Platelet Count 372 10^3/uL (130-400); RBC 3.34 10^6/uL (4.36-5.78); RDW 14.6 % (11.8-14.1); RDW-SD 45.4 fL; WBC 9.48 10^3/uL (4.4-10.8)
[2024-03-26] MEDS: MORPHine 4 MG/ML SYR IVP ×3 (08:03→21:44)
[2024-03-26] MEDS: Normal Saline Flush 10 ML SYR IVP ×2 (08:04→20:43)
[2024-03-26 08:09] LABS: Anion Gap 10.9 mmol/L (3-11); BUN 9 mg/dL (7-18); CO2 22.1 mmol/L (21.0-32.0); CREATININE 0.6 mg/dL (0.70-1.30); Chloride 106 mmol/L (98-107); Estimated GFR 102.56 (mL/min/1.73m2); Glucose 135 mg/dL (74-106); Potassium 3.6 mmol/L (3.5-5.1); Sodium 139 mmol/L (136-145)
--- NOTE | 2024-03-26 09:26 | NS.NUTBLAN_ITS ---
Date of service: 03/26/24 Time of Service: 09:26 Nutritional Consult ASSESSMENT: Consult ordered re: enteral feeding Pt has been NPO due to aspiration precautions for an extended period since 03/20 and has not been able to meet his nutrition needs po. Awaiting g-tube placement and ng tube will be used during this time. Pt's estimated energy needs based of IBW of 64kg for his height at 68: 1605kcals ([id number]) - suggest conservative goal of feeding to 1700kcals for maintenance/slow wt gain and then reassessing once tolerating this. Protein: 64-77g protein (1-1.2g/kg IBW) Fluid: 1605mL (1mL per required kcal) NUTRITIONAL DIAGNOSIS: Inadequate energy intake (NI-1.4), Inadequate oral food/beverage intake (NI-2.1) due to prolonged npo status in the context of stroke related dysphagia as e videnced by his recent aspiration concerns. INTERVENTION: Enteral feeding recommendation: Nutren 2.0 run continuously at 33mL/hr to provide 1742kcals, 66.5g protein, and 548mL fluid. Recommend starting at 15mL/hr and increasing 5mL q6hrs until goal rate is achieved. Flushes q 4 hours with 30mL water. With this additional fluid might need to consider deducing rate of IV fluids. Recommend daily weight checks MONITORING AND EVALUATION: Once tolerating goal rate goal will be to reassess and consider transition to bolus feeds before discharge. Will monitor labs, weight, and enteral feeding toleration Time Spent in Nutritional Counseling and Treatment: 0
[2024-03-26] MEDS: Enoxaparin 40 MG/0.4 ML SYR SC (09:40)
--- NOTE | 2024-03-26 10:57 | W.SPSTP ---
Date of service: 03/26/24 Time of Service: 09:30 Subjective Patient re-evaluated this morning at request of nursing/Dr. Roberts as notably more alert today. Ed was responsive with vocalizations and some intelligible responses ('yes', 'no', 'pudding') and able to answer field of 2 questions today re: preferences (eg Do you want applesauce or pudding?). Objective/Assessment/Plan Objective Treatment Techniques & Outcomes: Oral Care: Agreeable to oral care with suction swab kit before/after PO Declined oral gel moisturizer PO Trials: Ice Chips Thin via tsp x 10-12 sips Puree- applesauce (4oz), pudding (4oz) Oral Phase Findings: Prolonged oral phase, WFL for trials assessed Pharyngeal Phase: Delayed swallow initiation Decreased hyolaryngeal movement Wet cough noted intermittently Assessment Ed seen today upright in bed, notably more alert with improved energy compared to recent sessions. He was smiling/joking, vocalizing, and expressing high desire for PO. Per review of medical record, family meeting was held yesterday to discuss goals of care and address nutritional challenges, with his family ultimately expressing desire to pursue a feeding tube; surgical consultation was placed and is pending. Nursing/hospitalist requesting MUSEUM HOST/HOSTESS re-assessment of PO tolerance this date as he is demonstrating increased alertness/energy levels and has also vocalized NO to nursing in response to questioning about getting a PEG. Ed demonstrated improved tolerance with puree textures and thin liquids via tsp this date. Anticipate he is not yet fully at baseline prior to recent pneumonia/hypoxia event, with concern for pharyngeal disuse atrophy. However, notable progress today compared to prior week, and it is appropriate to initiate small frequent PO snacks: puree solids (applesauce, puddings, butternut squash) and thin liquids via tsp, with strict aspiration precautions. Recommend close nutritional monitoring/calorie count as even with return to PO there is still concern on Ed's ability to meet nutritional/hydrational needs. He remains a chronic high risk for aspiration. Ongoing discussion with patient and family re: GOC remain beneficial. Plan Plan: MUSEUM HOST/HOSTESS to continue to follow, 4-5x/weekly for 1-2 weeks DIET: SOLIDS: L4 Puree LIQUIDS: L0 thin VIA TSP MEDICATIONS: Continue Non-Oral at this time RISK MANAGEMENT/ORAL CARE RECOMMENDATIONS - Ensure patient is in BOLT upright position, 90 degrees, for all PO and oral care - Oral care before/after all PO. Use suction swab kit. - 1/2 tsp bites of puree solids and thin liquids via tsp only - Ice chips allowed for additional comfort - Remain upright at least 30 minutes after PO - Ensure HOB elevated 30 degrees at all times Goals: Bed Manager Goals: Patient will remain free from aspiration-related illness, malnutrition, and dehydration. Short Term Goals: Patient will tolerate Puree Diet and Thin liquids without overt s/s aspiration across 2/2 visits. Patient will tolerate PO trials for consideration of diet upgrade without overt s/s aspiration across 2/2 visits.
--- NOTE | 2024-03-26 11:39 | W.PM.PROGNOT ---
Date of Service Date of service: 03/26/24 Time of Service: 11:39 Assessment and Plan Assessment and plan (1) Dysphagia due to old stroke: Status: Acute Assessment and plan: Continued concern regarding aspiration issues he has had no PO intake, speech following Followed by palliative care, please see note but in brief family has decided on PEG tube placement, surgical consult placed Currently he is not taking PO meds or food, consider NGT if not able to place percutaneous tube timely (2) Pneumonia, aspiration: Status: Resolved Assessment and plan: NPO now discontinued, On CHO pureed diet with thin liquid with tsp as per SPL eval -Strict 1:1 -Aspiration precautions -Calorie count as patient might not meet dietary requirements white count normalized, afebrile completed ceftriaxone and azithromycin day 03/29 (3) Type 2 diabetes mellitus: Status: Chronic Assessment and plan: Continue q6h checks with SSI coverage Will consider resuming basal coverage based on SSI coverage as food intake has resumed Qualifiers: Diabetes mellitus penitentiary insulin use: with penitentiary use Diabetes mellitus complication status: with neurologic complications Diabetes mellitus complication detail: with polyneuropathy Qualified Code(s): E11.42 - Type 2 diabetes mellitus with diabetic polyneuropathy; Z79.4 - assisted (current) use of insulin (4) Spell of altered consciousness: Status: Acute Assessment and plan: Alert to self, positive and constant eye contact during exam (5) Opiate dependence, continuous: Status: Chronic Assessment and plan: Continue Fentanyl patch Prn morphine overnight if needed while patch takes full effect; 8mg in 24 hours Adjust PRN (6) Chronic pain: Status: Chronic Assessment and plan: As above. 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: Status: Chronic Assessment and plan: Requires total care (8) Hypokalemia: Status: Acute Assessment and plan: Resolved BMP on 03/28 (9) Benign prostatic hyperplasia with urinary retention: Status: Chronic Assessment and plan: Continue indwelling michel catheter (10) Hyperlipidemia: Status: Chronic Assessment and plan: Resume statin therapy Qualifiers: Hyperlipidemia type: mixed hyperlipidemia Qualified Code(s): E78.2 - Mixed hyperlipidemia (11) Hypothyroidism (acquired): Status: Chronic Assessment and plan: Continue supplementation (12) Constipation due to opioid therapy: Status: Acute Assessment and plan: Colace liquid relistor if needed (13) Septic shock: Status: Resolved Assessment and plan: Source: aspiration pneumonia which was treated. (14) Failure to thrive in adult: Status: Chronic Assessment and plan: Needs continued and total care and refusing peg placement; resumed oral intake . Palliative care consulted as goals of care need clarification Case management following Discussed with Dr Roberts Subjective Subjective Patient reports: no new complaints, feels better, tolerating liquids well, tolerating a regular diet, voiding w/o difficulty, bowel movement and other (confirms that he will be able to continue his oral intake as per SPL, w/o feeding tube); denies still having pain, diarrhea, nausea, vomiting, shortness of breath or fever Exam Narrative Exam Narrative: Constitutional The patient is sitting in bed in sitting in high chung, w/o acute distress HENMT: Facial structures with normal appearance Neuro:alert and oriented to self,expressive aphasia, right-sided hemiplegia noted again from previous CVA Resp: clear anterior lungs bilaterally Cardio: S1, S2,positive pulses to all 4 ext. GI: Abdomen is not distended, soft and non tender, bowel sounds are present : Michel in place, no bladder distension Ext: right metatarsal amputation Integumentary: Boot to left heel in place, skin is dry and flaking w/o redness or opens sores Psych: RASS 0, congruent mood and normal affect.Pleasant and interracting well Objective Last Vital Signs Temp 36.3 C L 03/26/24 07:28 Pulse 94 H 03/26/24 07:28 Resp 17 03/26/24 07:28 BP 152/61 H 03/26/24 07:28 Pulse Ox 97 03/26/24 07:28 Laboratory Results - last 24 hr 03/26/24 07:46 WBC 9.48 RBC 3.34 L Hgb 9.3 L Hct 28.7 L MCV 86 MCH 27.8 MCHC 32.4 RDW 14.6 H Plt Count 372 MPV 9.8 Immature Gran % 0.5 Neutrophils % 75.8 Lymphocytes % 10.9 Monocytes % 6.9 Eosinophils % 5.4 Basophils % 0.5 Nucleated RBC % 0.0 Absolute Neutrophils 7.19 H Absolute Lymphocytes 1.03 L Absolute Monocytes 0.65 Absolute Eosinophils 0.51 Absolute Basophils 0.05 Sodium 139 Potassium 3.6 Chloride 106 Carbon Dioxide 22.1 Anion Gap 10.9 BUN 9 Creatinine 0.6 L Est GFR (CKD-EPI 2020) 102.56 Glucose 135 H Calcium 8.0 L Time Spent with Patient Time Spent with Patient: >50 minutes Time was spent: preparing to see the patient(eg.review tests), obtaining and/or reviewing separately otained hiistory, ordering medications,tests, procedures, referring, communicating with other health clinical manager home care, indepentently interpreting results, counseling the patient and care coordination
[2024-03-26] MEDS: Insulin Aspart 300 UNITS/3 ML PEN SC ×2 (12:24→17:34)
[2024-03-26] MEDS: levETIRAcetam Oral Solution 100 MG/ML 500 MG PO (17:34)
--- NOTE | 2024-03-26 18:36 | PDOC.CMPRO ---
Date of service: 03/26/24 Time of Service: 18:36 Care Management Progress Note Progress Note Text Progress Note Text: S/O: Ed was sleeping when CM attempted to meet with him. Per palliative care, Ed and his family are now stating that he does not want a feeding tube placed. CM encouraged the hospitalist to contact Dr. Thomas from palliative care to discuss next steps in Ed's plan of care. CM sent a referral to [facility]; admissions is reviewing the referral. CM will continue to follow. A: Ed is a 73 year old man admitted on 10/31/23 with pneumonia . P: Ed's code status was changed to DNR/DNI following a decline in his condition. Ed and his family have decided not to move forward with a PEG tube. CM sent a referral to [facility] for review, at the family's request. Plans to transfer Ed to a different setting are on hold at the moment. CM will continue to follow and offer support to both Ed and his family. SDOH(Care Management) Screening Will the Patient Participate in the Screening?: Unable to obtain
[2024-03-26 20:42] VITALS: PULSE 120; O2SAT 95
[2024-03-26] MEDS: LORazepam 2 MG/ML VIAL 1 MG IVP (20:42)
[2024-03-27 00:05] VITALS: PULSE 68; RESP 18; O2SAT 97
[2024-03-27] MEDS: Insulin Aspart 300 UNITS/3 ML PEN SC ×3 (00:14→19:57)
[2024-03-27] MEDS: fentaNYL 25 MCG PATCH TD ×2 (02:27→16:16)
[2024-03-27] MEDS: POTASSIUM CHLORIDE/0.45% NACL 1,000 ML 80 MEQ IV ×2 (02:37→14:21)
[2024-03-27 07:47] VITALS: BP 129/53; PULSE 84; RESP 16; TEMP 35.6; O2SAT 98
[2024-03-27] MEDS: Normal Saline Flush 10 ML SYR IVP ×5 (09:06→16:45)
[2024-03-27] MEDS: MORPHine 4 MG/ML SYR IVP ×3 (09:08→16:44)
[2024-03-27] MEDS: Enoxaparin 40 MG/0.4 ML SYR SC (09:20)
[2024-03-27] MEDS: LORazepam 2 MG/ML VIAL 1 MG IVP ×2 (10:31→15:11)
--- NOTE | 2024-03-27 11:13 | W.PM.PROGNOT ---
Date of Service Date of service: 03/27/24 Time of Service: 11:14 Assessment and Plan Assessment and plan (1) Dysphagia due to old stroke: Status: Acute Assessment and plan: Continued concern regarding aspiration issues he has had no PO intake, speech following Followed by palliative care, please see note but in brief family has decided on PEG tube placement. Refused by patient -Communicated to Dr. Thomas and recommends to follow patient's wishes as long as family is on board Surgical consult placed- but procedure for PEG placement on hold please read Dr. Dozier's notes On diet as per Speech eval., well tolerated at this time (2) Pneumonia, aspiration: Status: Resolved Assessment and plan: NPO now discontinued, On CHO pureed diet with thin liquid with tsp as per SPL eval -Strict 1:1 -Aspiration precautions -Calorie count as patient might not meet dietary requirements white count normalized, afebrile ceftriaxone and azithromycin completed for a 5-day course (3) Type 2 diabetes mellitus: Status: Chronic Assessment and plan: Continue q6h checks with SSI coverage Will consider resuming basal coverage based on SSI coverage as food intake has resumed if blood sugar is uncontrolled Qualifiers: Diabetes mellitus complication detail: with polyneuropathy Diabetes mellitus complication status: with neurologic complications Diabetes mellitus composite technician insulin use: with penitentiary use Qualified Code(s): E11.42 - Type 2 diabetes mellitus with diabetic polyneuropathy; Z79.4 - documentation specialist (current) use of insulin (4) Spell of altered consciousness: Status: Acute Assessment and plan: Alert to self, expressive aphasia is exacerbated this morning , gaze is less focused than on the prior day Might be d/t pain but unable to get a clear answer from the patient d/t above (5) Opiate dependence, continuous: Status: Chronic Assessment and plan: Continue Fentanyl patch at adjusted dosing post pharmacy consultation Prn morphine for another 24 hours until the full dose is in effect Adjust PRN (6) Chronic pain: Status: Chronic Assessment and plan: As above. 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: Status: Chronic Assessment and plan: Requires total care (8) Hypokalemia: Status: Acute Assessment and plan: Resolved BMP on 03/28 (9) Benign prostatic hyperplasia with urinary retention: Status: Chronic Assessment and plan: Continue indwelling michel catheter (10) Hyperlipidemia: Status: Chronic Assessment and plan: Resume statin therapy Qualifiers: Hyperlipidemia type: mixed hyperlipidemia Qualified Code(s): E78.2 - Mixed hyperlipidemia (11) Hypothyroidism (acquired): Status: Chronic Assessment and plan: Continue supplementation (12) Constipation due to opioid therapy: Status: Acute Assessment and plan: Colace liquid relistor if needed (13) Septic shock: Status: Resolved Assessment and plan: Source: aspiration pneumonia which was treated. (14) Failure to thrive in adult: Status: Chronic Assessment and plan: Needs continued and total care and refusing peg placement; resumed oral intake . Palliative care consulted as goals of care need clarification Case management following Discussed with Dr Roberts Subjective Subjective Patient reports: still having pain, tolerating liquids well, tolerating a regular diet, voiding w/o difficulty, bowel movement, diarrhea and nausea; denies vomiting, shortness of breath or fever Exam Narrative Exam Narrative: Constitutional The patient is sitting in bed in sitting in high chung, w/o acute distress HENMT: Facial structures with normal appearance Neuro:alert and oriented to self,expressive aphasia, right-sided hemiplegia noted again from previous CVA Resp: clear anterior lungs bilaterally Cardio: S1, S2,positive pulses to all 4 ext. GI: Abdomen is not distended, soft and non tender, bowel sounds are present : Michel in place, no bladder distension Ext: right metatarsal amputation Integumentary: Boot to left heel in place, skin is dry and flaking w/o redness or opens sores Psych: RASS 0, congruent mood and normal affect.Pleasant and interracting well Objective Last Vital Signs Temp 35.6 C L 03/27/24 07:47 Pulse 84 03/27/24 07:47 Resp 16 03/27/24 07:47 BP 129/53 L 03/27/24 07:47 Pulse Ox 98 03/27/24 07:47 Time Spent with Patient Time Spent with Patient: >50 minutes Time was spent: preparing to see the patient(eg.review tests), obtaining and/or reviewing separately otained hiistory, ordering medications,tests, procedures, referring, communicating with other health career agent, indepentently interpreting results, counseling the patient and care coordination
--- NOTE | 2024-03-27 11:28 | CMPROGNOTE_ITS ---
Date of service: 03/27/24 Time of Service: 11:28 Care Management Progress Note Progress Note Text Progress Note Text: S/O: Ed was sitting up in bed when CM met with him. He was talking however it was very difficult to understand what he was saying. CM explained that he is now considered medically stable enough for discharge. RONDA informed him that Trudy, the [facility] home provider that he met a couple of times, is still interested in having him come to her home where she will provide his care. Ed seemed to understand and answered affirmatively when asked if he still would like to go there. His face brightened and he smiled and nodded yes. CM reached out to Alejandra, his daughter and DPOA, to confirm that the plan is still viable, but has been unable to connect (phone tag). CM also left a message for Stephen, his son, but has not heard back. Assuming the planl continues to move forward, discharge will likely be on Saturday. Trudy informed RONDA that she needs a couple of days to reconnect with the caregivers who would be working with ED. A: Ed is a 73 year old man admitted on 10/31/23 with pneumonia . P: Ed's code status was changed to DNR/DNI following a decline in his condition. Ed and his family have decided not to move forward with a PEG tube. CM sent a r eferral to [facility] for review, at the family's request, but no determination has been made yet. The [facility] home placement is still a viable option for Ed's care as well. Hopefully a final disposition will be decided on this weekend as Ed is now medically ready for discharge and there are no longer any barriers to discharge. RONDA will continue to follow and offer support to both Ed and his family. SDOH(Care Management) Screening Will the Patient Participate in the Screening?: Unable to obtain
[2024-03-27] MEDS: fentaNYL 12 MCG PATCH TD (16:16)
[2024-03-27] MEDS: Docusate Sodium 100 MG/10 ML CUP PO (19:48)
[2024-03-27] MEDS: levETIRAcetam Oral Solution 100 MG/ML 500 MG PO (19:48)
[2024-03-27] MEDS: Atorvastatin 40 MG TAB 80 MG PO (19:48)
[2024-03-27 22:56] VITALS: BP 113/60; PULSE 86; RESP 16; TEMP 36.7; O2SAT 95
[2024-03-28] MEDS: MORPHine 4 MG/ML SYR IVP ×3 (02:02→20:16)
[2024-03-28] MEDS: POTASSIUM CHLORIDE/0.45% NACL 1,000 ML 80 MEQ IV ×2 (02:03→13:28)
[2024-03-28 05:47] LABS: Abs Immature Grans 0.02 10^3/uL (0.0-0.06); Absolute Basophil Count 0.05 10^3/uL (0.0-0.2); Absolute Eosinophil Count 0.38 10^3/uL (0.0-0.7); Absolute Lymphocyte Count 1.55 10^3/uL (1.2-3.4); Absolute Neutrophil Count 2.74 10^3/uL (1.2-6.7); Eosinophils % 7.3 %; HCT 26.1 % (40.0-50.0); HGB 8.3 g/dL (13.5-17.5); Immature Grans % 0.4 %; Lymphocytes % 29.6 %; MCH 27.9 pg (27.0-33.0); MCHC 31.8 % (32.0-36.0); MCV 88 fL (80-95); MPV 9.5 fL (8.0-11.0); Monocytes % 9.5 %; Neutrophils % 52.2 %; Platelet Count 255 10^3/uL (130-400); RBC 2.97 10^6/uL (4.36-5.78); RDW 14.9 % (11.8-14.1); RDW-SD 48.5 fL; WBC 5.24 10^3/uL (4.4-10.8)
[2024-03-28 05:54] LABS: Anion Gap 5.3 mmol/L (3-11); BUN 9 mg/dL (7-18); CO2 25.7 mmol/L (21.0-32.0); CREATININE 0.6 mg/dL (0.70-1.30); Calcium 7.7 mg/dL (8.5-10.1); Chloride 109 mmol/L (98-107); Estimated GFR 102.56 (mL/min/1.73m2); Glucose 166 mg/dL (74-106); Potassium 3.6 mmol/L (3.5-5.1); Sodium 140 mmol/L (136-145)
[2024-03-28] MEDS: levETIRAcetam Oral Solution 100 MG/ML 500 MG PO ×2 (05:57→18:17)
[2024-03-28] MEDS: Insulin Aspart 300 UNITS/3 ML PEN SC ×3 (08:38→17:25)
[2024-03-28] MEDS: Docusate Sodium 100 MG/10 ML CUP PO ×2 (08:38→19:48)
[2024-03-28] MEDS: Enoxaparin 40 MG/0.4 ML SYR SC (08:39)
[2024-03-28] MEDS: Normal Saline Flush 10 ML SYR IVP ×3 (08:40→20:17)
[2024-03-28 08:50] VITALS: BP 137/56; PULSE 113; RESP 16; TEMP 36.7; O2SAT 94
[2024-03-28] MEDS: LORazepam 2 MG/ML VIAL 1 MG IVP (11:07)
--- NOTE | 2024-03-28 15:02 | PGE_ITS ---
Date of Service Date of service: 03/28/24 Time of Service: 15:02 Assessment and Plan Assessment and plan (1) Dysphagia due to old stroke: Status: Acute Assessment and plan: Was NPO d/t aspiration PNA and risks of reoccurrence Surgical consult completed for PEG but refused Speech following: eval completed and has a diet as per speech-caloric count ordered Palliative care, please see note but in brief family has decided on PEG tube placement. Refused by patient -as per communication with Dr. Thomas: recommendation to follow patient's wishes as long as family is on board (2) Pneumonia, aspiration: Status: Resolved Assessment and plan: On CHO pureed diet with thin liquid with tsp as per Speech and swallow evaluation -Strict 1:1 -Aspiration precautions -Calorie count as patient might not meet dietary requirements White count normalized, a-febrile ceftriaxone and azithromycin completed for a 5-day course (3) Type 2 diabetes mellitus: Status: Chronic Assessment and plan: Continue AC and HS checks with SSI coverage Will consider resuming basal coverage based on SSI coverage as food intake has resumed if blood sugar is uncontrolled Qualifiers: Diabetes mellitus complication detail: with polyneuropathy Diabetes mellitus complication status: with neurologic complications Diabetes mellitus human services care specialist insulin use: with human services care specialist use Qualified Code(s): E11.42 - Type 2 diabetes mellitus with diabetic polyneuropathy; Z79.4 - material manager (current) use of insulin (4) Anemia: Status: Chronic Assessment and plan: Might be d/t dilution IVF stooped CBC in AM (5) Spell of altered consciousness: Status: Acute Assessment and plan: Alert to self, expressive aphasia is exacerbated this morning , gaze is less focused than on the prior day Might be d/t pain but unable to get a clear answer from the patient d/t above On Keppra changed from IV to oral Keppra level pending (6) Opiate dependence, continuous: Status: Chronic Assessment and plan: Continue Fentanyl patch at adjusted dosing post pharmacy consultation Prn morphine for another 24 hours until the full dose is in effect Adjust PRN (7) Chronic pain: Status: Chronic Assessment and plan: As above. 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: Status: Chronic Assessment and plan: Continue to require total care (9) Hypokalemia: Status: Acute Assessment and plan: Resolved IVF w K stopped BMP on 03/29 (10) Benign prostatic hyperplasia with urinary retention: Status: Chronic Assessment and plan: Continue indwelling riojas catheter (11) Hyperlipidemia: Status: Chronic Assessment and plan: Continue statin therapy Qualifiers: Hyperlipidemia type: mixed hyperlipidemia Qualified Code(s): E78.2 - Mixed hyperlipidemia (12) Hypothyroidism (acquired): Status: Chronic Assessment and plan: Continue Synthroid (13) Failure to thrive in adult: Status: Chronic Assessment and plan: Needs continued and total care and refusing peg placement; resumed oral intake . Palliative care consulted as goals of care need clarification Case management following Discussed with Dr Roberts (14) Constipation due to opioid therapy: Status: Acute Assessment and plan: Continue Colace liquid relistor if needed (15) Discharge planning issues: Assessment and plan: CM following with plan to d/c this week patient is aware Discussed with Dr. Roberts Subjective Subjective Patient reports: no new complaints, feels better, tolerating liquids well, tolerating a regular diet, voiding w/o difficulty and bowel movement; denies still having pain, blood in stool, nausea, vomiting, shortness of breath or fever Exam Narrative Exam Narrative: Constitutional The patient is in bed w/o acute distress HENMT: Facial structures with normal appearance Neuro:alert and oriented to self, expressive and receptive aphasia improved from 03/27, right-sided remains idem to previous day and from previous CVA Resp: clear anterior lungs bilaterally Cardio: regular ,S1, S2,positive pulses to all 4 ext. GI: Abdomen is flat, soft and non tender, bowel sounds are present : [place] in place, no bladder distension Ext: right metatarsal amputation healed Integumentary: Boots to right and left heel in place, skin is dry and flaking w/o redness or opens sores Psych: RASS 0, congruent mood and normal affect.Pleasant and interracting well after being told that he might leave the hospital this week Objective Last Vital Signs Temp 36.7 C 03/28/24 08:50 Pulse 113 H 03/28/24 08:50 Resp 16 03/28/24 08:50 BP 137/56 L 03/28/24 08:50 Pulse Ox 94 03/28/24 08:50 Laboratory Results - last 24 hr 03/28/24 05:35 WBC 5.24 RBC 2.97 L Hgb 8.3 L Hct 26.1 L MCV 88 MCH 27.9 MCHC 31.8 L RDW 14.9 H Plt Count 255 MPV 9.5 Immature Gran % 0.4 Neutrophils % 52.2 Lymphocytes % 29.6 Monocytes % 9.5 Eosinophils % 7.3 Basophils % 1.0 Nucleated RBC % 0.0 Absolute Neutrophils 2.74 Absolute Lymphocytes 1.55 Absolute Monocytes 0.50 Absolute Eosinophils 0.38 Absolute Basophils 0.05 Sodium 140 Potassium 3.6 Chloride 109 H Carbon Dioxide 25.7 Anion Gap 5.3 BUN 9 Creatinine 0.6 L Est GFR (CKD-EPI 2020) 102.56 Glucose 166 H Calcium 7.7 L Time Spent with Patient Time Spent with Patient: >50 minutes Time was spent: preparing to see the patient(eg.review tests), obtaining and/or reviewing separately otained hiistory, ordering medications,tests, procedures, referring, communicating with other health respiratory care program director, indepentently interpreting results, counseling the patient and care coordination
[2024-03-28 15:18] VITALS: BP 107/67; PULSE 92; RESP 19; TEMP 36.2; O2SAT 97
[2024-03-28] MEDS: Atorvastatin 40 MG TAB 80 MG PO (19:48)
[2024-03-29] MEDS: MORPHine 4 MG/ML SYR IVP ×3 (09:05→18:11)
[2024-03-29] MEDS: Enoxaparin 40 MG/0.4 ML SYR SC (09:06)
[2024-03-29] MEDS: Normal Saline Flush 10 ML SYR IVP ×4 (09:06→19:22)
[2024-03-29] MEDS: Docusate Sodium 100 MG/10 ML CUP PO (09:06)
[2024-03-29] MEDS: Insulin Aspart 300 UNITS/3 ML PEN SC ×2 (12:26→17:25)
[2024-03-29] MEDS: LORazepam 1 MG TAB PO ×2 (15:02→19:22)
--- NOTE | 2024-03-29 15:16 | NUR.NOTE ---
Pt had been asking for ativan, throwing his leg over the side rail. Hospital is out of IV push ativan, had Hospitalist change to PO. Pt still wanted to have the IV ativan after discussing and taking the tablet. Explained to pt again that the hospital is out of the IV ativan, that is why he got the pill. He looks sideways at nurse and frowns. Will monitor closely for behaviors. Nursing Note:
--- NOTE | 2024-03-29 15:25 | NUR.NOTE ---
Pt calling out, wanting his arm on a pillow. Placed, then pt took it out immediately, still yelling. Pt does not communicate well, nurse asked if he would like someone in the room with him, he yelled no. Will continue to monitor closely. Nursing Note:
--- NOTE | 2024-03-29 16:05 | NUR.NOTE ---
Pt insisting on someone sitting with him. Singing with staff to music. Nursing Note:
--- NOTE | 2024-03-29 16:26 | W.PM.PROGNOT ---
Date of Service Date of service: 03/29/24 Time of Service: 16:27 Assessment and Plan Assessment and plan (1) Dysphagia due to old stroke: Status: Acute Assessment and plan: patient refused PEG tube placement, speech following with dietary modification recommendations instituted : DIET: SOLIDS: L4 Puree LIQUIDS: L0 thin VIA TSP MEDICATIONS: Continue Non-Oral at this time RISK MANAGEMENT/ORAL CARE RECOMMENDATIONS - Ensure patient is in BOLT upright position, 90 degrees, for all PO and oral care - Oral care before/after all PO. Use suction swab kit. - 1/2 tsp bites of puree solids and thin liquids via tsp only - Ice chips allowed for additional comfort - Remain upright at least 30 minutes after PO - Ensure HOB elevated 30 degrees at all times (2) Pneumonia, aspiration: Status: Resolved Assessment and plan: completed course of antibiotics (3) Type 2 diabetes mellitus: Status: Chronic Assessment and plan: continue diabetic diet blood sugar check AC/HS with sliding scale coverage. Qualifiers: Diabetes mellitus complication detail: with polyneuropathy Diabetes mellitus complication status: with neurologic complications Diabetes mellitus termite control technician insulin use: with care home use Qualified Code(s): E11.42 - Type 2 diabetes mellitus with diabetic polyneuropathy; Z79.4 - prison (current) use of insulin (4) Spell of altered consciousness: Status: Acute Assessment and plan: waxes and wanes (5) Opiate dependence, continuous: Status: Chronic Assessment and plan: has been started on fentanyl patch. prn morphine overnight if needed while patch takes full effect. adjust as needed. (6) Chronic pain: Status: Chronic Assessment and plan: as above. 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 Qualifiers: Hyperlipidemia type: mixed hyperlipidemia Qualified Code(s): E78.2 - Mixed hyperlipidemia (11) Hypothyroidism (acquired): Status: Chronic Assessment and plan: Continue supplementation when peg placed (12) Constipation due to opioid therapy: Status: Acute Assessment and plan: not taking po relistor if needed (13) Septic shock: Status: Resolved Assessment and plan: from aspiration pneumonia which was treated. (14) Failure to thrive in adult: Status: Chronic Assessment and plan: Patient needs continued care and now awaiting peg placement. planned home care placement with anticipated discharge this week, possibly Saturday Palliative care following case management following Discussed with Dr Roberts Subjective Subjective Patient reports: afebrile; denies shortness of breath Exam Narrative Exam Narrative: Frail older than stated age chronically ill-appearing male in no acute distress, ,no responding verbally to questions, staring at me. Head is atraumatic Respirations are even and unlabored Cardiovascular regular rate and rhythm well-perfused Abdomen no guarding soft michel with concentrated cloudy urine Extremities are without edema Oral mucosa slightly dry neck with no JVD full range of motion Eyes nonicteric noninjected Objective Last Vital Signs Temp 36.2 C L 03/28/24 15:18 Pulse 92 H 03/28/24 15:18 Resp 19 03/28/24 15:18 BP 107/67 03/28/24 15:18 Pulse Ox 97 03/28/24 15:18 Time Spent with Patient Time Spent with Patient: 35-49 minutes Time was spent: preparing to see the patient(eg.review tests), obtaining and/or reviewing separately otained hiistory, ordering medications,tests, procedures, indepentently interpreting results, counseling the patient and care coordination
[2024-03-29] MEDS: levETIRAcetam Oral Solution 100 MG/ML 500 MG PO (17:32)
[2024-03-29] MEDS: Atorvastatin 40 MG TAB 80 MG PO (19:22)
[2024-03-29 20:38] VITALS: BP 141/53; PULSE 95; RESP 16; TEMP 36; O2SAT 95
[2024-03-30] MEDS: Normal Saline Flush 10 ML SYR IVP ×5 (06:15→20:52)
[2024-03-30 07:30] VITALS: BP 103/70; PULSE 86; RESP 17; TEMP 37; O2SAT 96
[2024-03-30] MEDS: Docusate Sodium 100 MG/10 ML CUP PO ×2 (08:33→20:51)
[2024-03-30] MEDS: Enoxaparin 40 MG/0.4 ML SYR SC (08:33)
[2024-03-30] MEDS: Insulin Aspart 300 UNITS/3 ML PEN SC ×2 (08:33→12:03)
[2024-03-30] MEDS: MORPHine 4 MG/ML SYR IVP ×2 (08:44→13:26)
[2024-03-30] MEDS: LORazepam 1 MG TAB PO ×2 (10:18→20:51)
--- NOTE | 2024-03-30 10:33 | PDOC.CMPRO ---
Date of service: 03/30/24 Time of Service: 10:33 Care Management Progress Note Progress Note Text Progress Note Text: S/O: Ed was sitting up in bed when CM met with him. He was drowsy and did not engage in conversation with CM. Ed fell out of bed this morning. As it was an unwitnessed fall, he went to [facility] a CT of his head and spine and one of his pelvis to rule out any fractures. All images were negative for any new findings. This morning RONDA was able to speak to Alejandra, Freddie's daughter and DPOA. RONDA informed her that the plan is to move forward with transferring Ed to the [facility] that has been in process for the past few months. Alejandra stated that she really did not want her father that far away and preferred somewhere closer. RONDA explained that the only other option would be to send him to a senior care. Alejandra stated that she preferred he be sent to [facility]. RONDA explained that from a staffing standpoint, he would get more individualized care from as home provider since the ration is 1:1 or 1:2 as opposed to higher staffing ratios in other settings. Despite that, Alejandra stated that she felt her dad would do better with more frequent visits from her and the children. A referral was sent as requested and is under review. At the end of the day RONDA was able to reach Alejandra again. CM informed her about Ed's fall today and asked if she wanted to have a referral sent to [facility] as well. She agreed and the referral will be sent. RONDA informed Alejandra however, that if Ed does not receive a bed offer tomorrow, that he will need to go to the [facility] home in [place]. Until last week, RONDA has unable to reach Alejandra by phone and has not seen her at [facility] since November. Many messages were left but no response was received, so RONDA was unable to fully update her with the [facility] information. A: Ed is a 73 year old man admitted on 10/31/23 with pneumonia . P: Ed's code status was changed to DNR/DNI following a decline in his condition. Ed and his family have decided not to move forward with a PEG tube. RONDA sent a referral to [facility] for review, at the family's request, but no determination has been made yet. The [facility] home placement is still a viable option for Ed's care as well. Hopefully a final disposition will be decided on this weekend as Ed is now medically ready for discharge and there are no longer any barriers to discharge. CM will continue to follow and offer support to both Ed and his family. SDOH(Care Management) Screening Will the Patient Participate in the Screening?: Unable to obtain
--- NOTE | 2024-03-30 10:51 | NS.NUTBLAN_ITS ---
Date of service: 03/30/24 Time of Service: 10:51 Nutritional Consult ASSESSMENT: Received consult order, requesting kcal count for pt in support of PROFESSOR OF CRIMINAL JUSTICE recommendations. Mr Caballero was seen by PROFESSOR OF CRIMINAL JUSTICE on 03/26 with recommendation for puree solids with thin liquids via teaspoon only with non-oral meds to continue. PROFESSOR OF CRIMINAL JUSTICE plans to follow 4-5x weekly for 1-2 weeks. Nutrition consult was also ordered 03/25 and completed 03/26 regarding recommendations for enteral feeding for new NGT while awaiting PEG tube placement. Provider noted yesterday that PEG tube was refused by pt. Most recent weight taken was 71kg on 03/25 on bedside scale by this service writer - high probability of inaccuracy of weight due to need to zero bed and multiple items are placed on bed (pillows, mauritanian etc..) and unsure if these have been accounted for. Pt was on prolonged NPO status from 03/20-03/26. Erratic intake documented from 03/26 of 0-75% of meals recorded, however unsure of volume and types of items ordered. CM notes that with pt being considered stable medically, that discharge will likely be tomorrow. NUTRITIONAL DIAGNOSIS: per assessment on 03/13/24 Pt meets criteria for diagnosis of Severe Malnutrition ( E43) related to inadequate protein-energy intake in the setting of acute on chronic illness/injury (recent septic shock, UTI, PNA on top of his long standing respiratory health issues and recent affects from CVA and long-term hospital stay >3 months), as evidenced by a 12% loss of body weight in <1 month, reduced energy intake to meet <50% of energy needs for at lest the last 5 days, and the observation of severe losses in subq fat and muscle in visual assessment INTERVENTION: Will put thin liquid ONS (Boost Breeze) on pt trays at breakfast and dinner Suggest liquid protein concentrate to be ordered via pharmacy and administered TID Calorie count will be inactivated at this time due to calorie counts being a 3 day process and pt anticipated to discharge tomorrow, as well as futility of starting one at this time when patient has apparently refused PEG tube placement and a calorie count would only be used to reinforce the recommendation for enteral feeding support. Recommend restarting 30mg mirtazapine HS if it can be offered safely orally. Suggest getting an accurate weight on pt. MONITORING AND EVALUATION: Will continue to monitor labs, weight, intake. Time Spent in Nutritional Counseling and Treatment: 10 min
[2024-03-30 11:00] VITALS: BP 163/81; PULSE 106; RESP 20; TEMP 36.3; O2SAT 97
--- NOTE | 2024-03-30 11:08 | NUR.NOTE ---
Pt found down on the floor at 1058am by nursing, unwitnessed fall. VS taken and provider notified. Will continue to monitor. Nursing Note:
[2024-03-30 11:18] VITALS: BP 141/64; PULSE 94; RESP 18; TEMP 35.5; O2SAT 98
--- NOTE | 2024-03-30 11:45 | DI.CT_ITS ---
Exam(s) CT HEAD CERVICAL SPINE WO EXAM: CT HEAD CERVICAL SPINE WO CLINICAL HISTORY: trauma, unwitnessed fall. TECHNIQUE: Imaging Protocol: Axial computed tomography images with coronal and sagittal reformatted images were created and reviewed COMPARISON: CT CT BRAIN NECK CTA from 03/17/2024 FINDINGS: Head CT Exam is limited by motion. Ventricles and Extra axial spaces: Normal in size and morphology for the patient's age. Hemorrhage: None. Cerebral parenchyma: Large area old infarct in the left frontal through parietal lobes. No evidence of mass or acute infarct. Midline shift: None. Brainstem/Cerebellum: Normal. Calvarium: Normal. Visualized Paranasal sinuses/Mastoids: Clear. Soft tissues: Unremarkable. Cervical Spine CT The exam is somewhat limited by motion. BONES: Vertebral body heights are maintained. Alignment is normal. There is no evidence of acute frac ture. Severe degenerative disc changes and facet degenerative changes are seen . SOFT TISSUES: No paraspinal hematoma. The airway appears intact. No pneumothorax is seen at the lung apices. IMPRESSION: Exam somewhat limited by motion. Head CT: No acute abnormality. Large old left MCA territory infarct. C-spine CT: Degenerative changes, no acute abnormality. RADIATION DOSE DELIVERED: 1,393.31mGy.cm Total DLP DATA REPOSITORY: All CT scans at this facility are submitted to the National Radiology Data Registry (NRDR) Dose Index Registry (DIR) with the [employer] (ACR). RADIATION OPTIMIZATION: All CT scans at this facility use at least one of these dose optimization te chniques: automated exposure control; mA and/or kV adjustment per patient size (includes targeted exa ms where dose is matched to clinical indication); or iterative reconstruction.
--- NOTE | 2024-03-30 11:52 | DI.CT_ITS ---
Exam(s) CT PELVIC WO EXAM: CT PELVIC WO CLINICAL HISTORY: fall, unwitnessed.. TECHNIQUE: Imaging Protocol: Axial computed tomography images with coronal and sagittal reformatted images were created and reviewed. CONTRAST MATERIAL: Oral: no COMPARISON: CT CT ABDOMEN PELVIS WO from 02/18/2024 FINDINGS: Bladder: Decompressed by [place] catheter. Bowel: No obstruction or bowel wall thickening. Peritoneal cavity: Small amount of fluid in the pelvis. No focal collection collection or mesenteric inflammatory response. Reproductive: Prostate not enlarged. Bones: No fracture. Degenerative changes noted in the lower lumbar spine and both hips. Soft tissues: Generalized edema in the subcutaneous fat. Vasculature heavily calcified. IMPRESSION: No evidence of fracture. Small amount of ascites in pelvis. Generalized edema in the subcutaneous fat. No hematoma. RADIATION DOSE DELIVERED: 546.31mGy.cmTotal DLP DATA REPOSITORY: All CT scans at this facility are submitted to the National Radiology Data Registry (NRDR) Dose Index Registry (DIR) with the [employer] (ACR). RADIATION OPTIMIZATION: All CT scans at this facility use at least one of these dose optimization te chniques: automated exposure control; mA and/or kV adjustment per patient size (includes targeted exa ms where dose is matched to clinical indication); or iterative reconstruction.
[2024-03-30 11:57] VITALS: BP 152/67; PULSE 87; RESP 17; TEMP 36.1; O2SAT 98
--- NOTE | 2024-03-30 12:49 | PGE_ITS ---
Date of Service Date of service: 03/30/24 Time of Service: 12:49 Assessment and Plan Assessment and plan (1) Unwitnessed fall: Status: Acute Assessment and plan: found on floor at side of bed after staff got him back in bed following a shower. no apparent injury denies any pain or injury from fall will obtain head and cspine CT and pelvis. institute neurochecks per policy. (2) Dysphagia due to old stroke: Status: Acute Assessment and plan: patient refused PEG tube placement, speech following with dietary modification recommendations instituted : DIET: SOLIDS: L4 Puree LIQUIDS: L0 thin VIA TSP MEDICATIONS: Continue Non-Oral at this time RISK MANAGEMENT/ORAL CARE RECOMMENDATIONS - Ensure patient is in BOLT upright position, 90 degrees, for all PO and oral care - Oral care before/after all PO. Use suction swab kit. - 1/2 tsp bites of puree solids and thin liquids via tsp only - Ice chips allowed for additional comfort - Remain upright at least 30 minutes after PO - Ensure HOB elevated 30 degrees at all times (3) Pneumonia, aspiration: Status: Resolved Assessment and plan: completed course of antibiotics (4) Type 2 diabetes mellitus: Status: Chronic Assessment and plan: continue diabetic diet blood sugar check AC/HS with sliding scale coverage. Qualifiers: Diabetes mellitus complication detail: with polyneuropathy Diabetes mellitus complication status: with neurologic complications Diabetes mellitus mcfp insulin use: with mcfp use Qualified Code(s): E11.42 - Type 2 diabetes mellitus with diabetic polyneuropathy; Z79.4 - long-term (current) use of insulin (5) Spell of altered consciousness: Status: Acute Assessment and plan: waxes and wanes (6) Opiate dependence, continuous: Status: Chronic Assessment and plan: has been started on fentanyl patch. prn morphine overnight if needed while patch takes full effect. adjust as needed. (7) Chronic pain: Status: Chronic Assessment and plan: as above. 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 Qualifiers: Hyperlipidemia type: mixed hyperlipidemia Qualified Code(s): E78.2 - Mixed hyperlipidemia (12) Hypothyroidism (acquired): Status: Chronic Assessment and plan: Continue supplementation when peg placed (13) Constipation due to opioid therapy: Status: Acute Assessment and plan: not taking po relistor if needed (14) Septic shock: Status: Resolved Assessment and plan: from aspiration pneumonia which was treated. (15) Failure to thrive in adult: Status: Chronic Assessment and plan: planned home care placement with anticipated discharge this week, possibly Saturday Palliative care following case management following Discussed with Dr Roberts Subjective Subjective Patient reports: tolerating a regular diet (purreed with assistance) and afebrile; denies shortness of breath Interval history since last seen: patient found on the floor after having a shower this morning. no apparent injury or c/o reported. patient is awake and alert and at his baseline. Exam Narrative Exam Narrative: Frail older than stated age chronically ill-appearing male in no acute distress, ,awake, alert eating lunch (being fed). nods to questions Head is atraumatic Respirations are even and unlabored Cardiovascular regular rate and rhythm well-perfused Abdomen no guarding soft michel with concentrated cloudy urine Extremities are without edema Oral mucosa slightly dry neck with no JVD full range of motion Eyes nonicteric noninjected Objective Last Vital Signs Temp 36.1 C L 03/30/24 11:57 Pulse 87 03/30/24 11:57 Resp 17 03/30/24 11:57 BP 152/67 H 03/30/24 11:57 Pulse Ox 98 03/30/24 11:57 Laboratory Results - last 24 hr 03/29/24 05:35 WBC Cancelled RBC Cancelled Hgb Cancelled Hct Cancelled MCV Cancelled MCH Cancelled MCHC Cancelled RDW Cancelled Plt Count Cancelled MPV Cancelled Immature Gran % Cancelled Neutrophils % Cancelled Band Neutrophils % Cancelled Lymphocytes % Cancelled Atypical Lymphs % Cancelled Monocytes % Cancelled Eosinophils % Cancelled Basophils % Cancelled Metamyelocytes % Cancelled Myelocytes % Cancelled Promyelocytes % Cancelled Other Cells % Cancelled Nucleated RBC % Cancelled Absolute Neutrophils Cancelled Absolute Lymphocytes Cancelled Absolute Monocytes Cancelled Absolute Eosinophils Cancelled Absolute Basophils Cancelled RBC Morphology Cancelled Polychromasia Cancelled Hypochromasia Cancelled Poikilocytosis Cancelled Basophilic Stippling Cancelled Anisocytosis Cancelled Microcytosis Cancelled Macrocytosis Cancelled Spherocytes Cancelled Tear Drop Cells Cancelled Ovalocytes Cancelled Stomatocytes Cancelled [place] Bodies Cancelled [place] Cells/Echinocytes Cancelled Acanthocytes (Spur) Cancelled Schistocytes Cancelled Sodium Cancelled Potassium Cancelled Chloride Cancelled Carbon Dioxide Cancelled Anion Gap Cancelled BUN Cancelled Creatinine Cancelled Est GFR (CKD-EPI 2020) Cancelled Glucose Cancelled Calcium Cancelled Time Spent with Patient Time Spent with Patient: 35-49 minutes Time was spent: preparing to see the patient(eg.review tests), obtaining and/or reviewing separately otained hiistory, ordering medications,tests, procedures, indepentently interpreting results, counseling the patient and care coordination
[2024-03-30 13:00] VITALS: BP 134/62; PULSE 114; RESP 17; TEMP 34.9; O2SAT 98
[2024-03-30] MEDS: fentaNYL 12 MCG PATCH TD (14:01)
[2024-03-30] MEDS: fentaNYL 25 MCG PATCH TD (14:02)
[2024-03-30 14:21] VITALS: BP 132/72; PULSE 88; RESP 17; TEMP 36.1; O2SAT 98
--- NOTE | 2024-03-30 14:27 | SPP_ITS ---
Date of service: 03/30/24 Time of Service: 12:00 Subjective Patient received alert/bolt upright in bed. Per nursing, patient had a fall out of bed earlier today and is currently returning to room following imaging. He presents as alert and able to answer questions with head nod/shake. Objective: Oral Care: Agreeable to oral care with swab before/after PO PO Trials: L0 Thin via tsp, straw (with pinch to reduce sip size) and provale cup L4 Puree- mashed potatoes with butter, pureed chicken soup L5 Minced/Moist- Chicken salad Oral Phase Findings: Prolonged oral phase Slow AP transport Pharyngeal Phase: Delayed swallow initiation Decreased hyolaryngeal movement With minced chicken salad, patient demonstrating facial expressions/gestures indicating increased difficulty swallowing. Liquid wash utilized. No coughing/throat clearing/wet vocal quality this date Assessment Ed was seen today for noon meal- he was alert though lethargic, requiring 1:1 feed assist. Per nursing his PO intake remains reduced and he is refusing many of the foods offered. For lunch, Ed ate 100% of mashed potatoes with butter, though tasted and declined offerings of pureed chicken soup (found to be thin liquid consistency on tray- added 2 packets of thickener for thick broth consistency), chocolate pudding, cottage cheese, juice, milk, and ice cream. He did accept a few bites of chicken salad (minced) and demonstrated increased difficulty/higher effort to swallow this consistency, though ultimately able to tolerate 4-5 small bites. For liquids, Ed was able to tolerate sips via Provale cup as well as straw- with clinician utilizing straw pinch to reduce sip size. No overt s/s aspiration appreciated today. Recommend continue diet parameters, favoring patient preferred foods with low mastication/deglutition demands (mashed potatoes with butter, strawberry ice cream, vanilla pudding) but OK to add in small amounts of minced/moist chicken salad or egg salad from medsurg fridge to lunch/dinner with goal to increase intake options. OK to do sips of liquid via provale cup or straw with staff pinch to notably reduce sip size. Per nutrition notes- protein drinks will also be added to tray orders going forward. Ed appears to be demonstrating slow progress, though does not appear to be at baseline dysphagia status prior to recent pneumonia/hypoxia event, with concern for pharyngeal disuse atrophy during deconditioned period. He remains a chronic high risk for aspiration as well as malnutrition and dehydration. Plan SHEETROCK APPLICATOR to continue to follow, 3-4x/weekly for 1-2 weeks DIET: SOLIDS: L4 Puree. OK for small amounts minced/moist chicken salad and egg salad LIQUIDS: L0 thin via provale cup or straw with staff pinching for small sip size MEDICATIONS: Whole in applesauce RISK MANAGEMENT/ORAL CARE RECOMMENDATIONS - Ensure patient is in BOLT upright position, 90 degrees, for all PO and oral care - Oral care before/after all PO. Use swab/toothbrush on all oral structures as patient allows. - 1/2 tsp size bites - Remain upright at least 30 minutes after PO - Ensure HOB elevated 30 degrees at all times Goals: Longterm Goals: Patient will remain free from aspiration-related illness, malnutrition, and dehydration. Short Term Goals: Patient will tolerate Puree Diet and Thin liquids without overt s/s aspiration across 2/2 visits. Patient will tolerate PO trials for consideration of diet upgrade without overt s/s aspiration across 2/2 visits. Time: 9327-8200 (30 min dysphagia treatment)
[2024-03-30] MEDS: levETIRAcetam Oral Solution 100 MG/ML 500 MG PO (18:12)
[2024-03-30] MEDS: Atorvastatin 40 MG TAB 80 MG PO (20:51)
[2024-03-31] MEDS: levETIRAcetam Oral Solution 100 MG/ML 500 MG PO ×2 (06:14→17:37)
[2024-03-31 07:35] VITALS: BP 158/74; PULSE 92; RESP 17; TEMP 36.9; O2SAT 96
[2024-03-31] MEDS: Enoxaparin 40 MG/0.4 ML SYR SC (08:51)
[2024-03-31] MEDS: Insulin Aspart 300 UNITS/3 ML PEN SC ×3 (08:51→17:38)
[2024-03-31] MEDS: Normal Saline Flush 10 ML SYR IVP ×3 (08:52→19:50)
[2024-03-31] MEDS: MORPHine 4 MG/ML SYR IVP ×2 (10:53→19:49)
--- NOTE | 2024-03-31 11:06 | PDOC.CMPRO ---
Date of service: 03/31/24 Time of Service: 11:06 Care Management Progress Note Progress Note Text Progress Note Text: S/O: Ed was lying in bed when CM met with him. CM reviewed his discharge plan, as he is potentially scheduled to discharge to an [facility] tomorrow. CM previously sent a referral to [facility] and the [facility], at the family's request, but he was declined by both facilities. When Ed was given a choice between going to [facility] ([facility]) or going to a nursing facility, he clearly expressed that he wants to go to [facility]. CM had assistance from his LYE MACHINE OPERATOR, who knows him well, who supported Ed during the conversation, due to his communication challenges. CM spoke to [facility]ud[facility], who had questions about his level of functioning and ADLs. RONDA made a plan for Trudy to come into [facility] to meet with staff who have been working with Ed; she will visit between 8:30-9am. CM informed nursing staff of this meeting. CM contacted [facility] and initiated a referral for home health services including RN, PT, OT, and ST. CM sent demographics and a recent progress note, and provided [facility] address, where services will be utilized. CM will fax the d/c summary and home health order (face to face documentation) upon discharge to [phone]. CM will continue to follow. A: Ed is a 73 year old man admitted on 10/31/23 with pneumonia . P: Ed's code status was changed to DNR/DNI following a decline in his condition. Ed and his family have decided not to move forward with a PEG tube. CM sent a referral to [facility] for review, at the family's request, but no determination has been made yet. The [facility] home placement is still a viable option for Ed's care as well. Hopefully a final disposition will be decided on this weekend as Ed is now medically ready for discharge and there are no longer any barriers to discharge. CM will continue to follow and offer support to both Ed and his family. SDOH(Care Management) Screening Will the Patient Participate in the Screening?: Unable to obtain
--- NOTE | 2024-03-31 13:32 | W.PM.PROGNOT ---
Date of Service Date of service: 03/31/24 Time of Service: 13:32 Assessment and Plan Assessment and plan (1) Unwitnessed fall: Status: Acute Assessment and plan: found on floor at side of bed after staff got him back in bed following a shower. no apparent injury with CT of the head C-spine and pelvis negative denies any pain or injury from fall Continue neurochecks per policy. (2) Dysphagia due to old stroke: Status: Acute Assessment and plan: patient refused PEG tube placement, speech following with dietary modification recommendations instituted : DIET: SOLIDS: L4 Puree LIQUIDS: L0 thin VIA TSP MEDICATIONS: Continue Non-Oral at this time RISK MANAGEMENT/ORAL CARE RECOMMENDATIONS - Ensure patient is in BOLT upright position, 90 degrees, for all PO and oral care - Oral care before/after all PO. Use suction swab kit. - 1/2 tsp bites of puree solids and thin liquids via tsp only - Ice chips allowed for additional comfort - Remain upright at least 30 minutes after PO - Ensure HOB elevated 30 degrees at all times (3) Pneumonia, aspiration: Status: Resolved Assessment and plan: completed course of antibiotics (4) Type 2 diabetes mellitus: Status: Chronic Assessment and plan: continue diabetic diet blood sugar check AC/HS with sliding scale coverage. Qualifiers: Diabetes mellitus termite control service representative insulin use: with termite control service representative use Diabetes mellitus complication status: with neurologic complications Diabetes mellitus complication detail: with polyneuropathy Qualified Code(s): E11.42 - Type 2 diabetes mellitus with diabetic polyneuropathy; Z79.4 - prison (current) use of insulin (5) Spell of altered consciousness: Status: Acute Assessment and plan: waxes and wanes (6) Opiate dependence, continuous: Status: Chronic Assessment and plan: has been started on fentanyl patch. prn morphine overnight if needed while patch takes full effect. adjust as needed. (7) Chronic pain: Status: Chronic Assessment and plan: as above. 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 Qualifiers: Hyperlipidemia type: mixed hyperlipidemia Qualified Code(s): E78.2 - Mixed hyperlipidemia (12) Hypothyroidism (acquired): Status: Chronic Assessment and plan: Continue supplementation when peg placed (13) Constipation due to opioid therapy: Status: Acute Assessment and plan: not taking po relistor if needed (14) Septic shock: Status: Resolved Assessment and plan: from aspiration pneumonia which was treated. (15) Failure to thrive in adult: Status: Chronic Assessment and plan: planned home care placement with anticipated discharge Saturday Palliative care following case management following Discussed with Dr Childers Subjective Subjective Patient reports: no new complaints, tolerating a regular diet (With dietary modifications) and afebrile; denies shortness of breath Exam Narrative Exam Narrative: Frail older than stated age chronically ill-appearing male in no acute distress, ,awake, alert nods appropriately to questions Head is atraumatic Respirations are even and unlabored Cardiovascular regular rate and rhythm well-perfused Abdomen no guarding soft michel with concentrated cloudy urine Extremities are without edema Oral mucosa slightly dry neck with no JVD full range of motion Eyes nonicteric noninjected Objective Last Vital Signs Temp 36.9 C 03/31/24 07:35 Pulse 92 H 03/31/24 07:35 Resp 17 03/31/24 07:35 BP 158/74 H 03/31/24 07:35 Pulse Ox 96 03/31/24 07:35 Time Spent with Patient Time Spent with Patient: 25-34 minutes Time was spent: preparing to see the patient(eg.review tests), obtaining and/or reviewing separately otained hiistory, ordering medications,tests, procedures, indepentently interpreting results and care coordination
[2024-03-31 15:24] VITALS: BP 137/43; PULSE 93; RESP 16; TEMP 37; O2SAT 97
[2024-03-31] MEDS: Atorvastatin 40 MG TAB 80 MG PO (19:48)
[2024-03-31] MEDS: Docusate Sodium 100 MG/10 ML CUP PO (19:49)
[2024-03-31] MEDS: LORazepam 1 MG TAB PO (19:49)
[2024-03-31 23:58] VITALS: BP 140/76; PULSE 80; RESP 18; TEMP 36.7; O2SAT 93
[2024-04-01] MEDS: levETIRAcetam Oral Solution 100 MG/ML 500 MG PO (06:01)
[2024-04-01] MEDS: Enoxaparin 40 MG/0.4 ML SYR SC (08:01)
[2024-04-01] MEDS: Normal Saline Flush 10 ML SYR IVP (08:01)
[2024-04-01] MEDS: Insulin Aspart 300 UNITS/3 ML PEN SC ×2 (08:02→11:44)
[2024-04-01 08:12] VITALS: BP 139/65; PULSE 88; RESP 16; TEMP 36.9; O2SAT 96
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
[2024-04-01 10:41] LABS: Levetiracetam 12.4 mcg/mL
--- NOTE | 2024-04-01 12:33 | PDOC.HHF2F ---
Home Health Referral Home Health Orders Clinical synopsis of why skilled professionals are needed: complex medical history prolonged hospitalization with multiple chronic co morbidities. Medical diagnosis necessitation home health referral: s/p CVA with hemiparesis right (right hand dominant) and dysphagia, diabetes mellitus type 2, Registered Nurse: Check all that apply Instruct on new or changed medication(s)/assess compliance: Ordered Other: indwelling michel care Physical Therapist: Check all that apply Increase strength & endurance for safe mobility at home: Ordered To design/establish home maintenance program: Ordered Fall reduction therapy program for patient with history of frequent falls: Ordered Home safety evaluation and teaching/gait training including stair management (if applicable): Ordered Occupational Therapist: Evaluate and treat for patient unable to perform ADL/IADL/self-care: Ordered Upper extremity strengthening, range and motion: Ordered Speech Therapist: Check all that apply For swallow evaluation/therapy due to dysphagia: Ordered Speech/communication disorders: Ordered Garden Machinery Mechanic: Assist with community resources: Ordered Assist with superintendent container terminal care planning: Ordered Home Bound Status Describe why leaving home would require a considerable and taxing effort: Side effects from pain medication (sedation/drowsiness), Incontinence, Confusion, Safety Concerns: describe and Requires alternative accommodations: Encounter Date and Reason: I certify that a FTF encounter for this patient was performed on April 01, 2024 and that such encounter was related to the primary reason the patient requires home health services. The encounter was conducted in the following manner: By me as the certifying physician, SENIOR CREDIT OFFICER, PA or By an inpatient physician, SENIOR CREDIT OFFICER or PA during an inpatient stay who communicated findings to me, Certification And Authentication I certify that I composed the above information based on my clinical judgment relating to this patient's medical condition and, if applicable, clinical findings communicated to me by the NPP or inpatient physician who performed the FTF encounter. Name of Provider that will be monitoring home health services: Galen Rivera
--- NOTE | 2024-04-01 16:38 | PDOC.CMDIS ---
Date of service: 04/01/24 Time of Service: 16:38 LACE Index Scoring Tool Questions: Length of Stay (in days): 14 or more Was the patient admitted via the E.D.?: Yes Comorbidities: Cerebrovascular Disease, Diabetes w/o Complication and Liver or Renal Disease E.D. Visits: 1 Answers: Total Score: 16 Risk of Readmission: High Risk Care Management Discharge Plan Reason for Hospitalization: pneumonia Discharge Plan: Ed will be discharged to his new adult family [facility] in [place], [place]. His home provider's name is Trudy Torres and the address is [address] in [place]. He will follow up with his local PCP, Galen Rivera, until he can establish with a new provider in that area. His post-hospital visit is scheduled for 04/14/24 at 1:20 pm. Ed will transport via EMS coordinated by CM. He will have new home health nursing and PT through [facility]. Patient/Family Education Needs: Review of discharge instructions, nutritional needs and special feeding precautions, medications, DME used for Ed, limitations, follow up plan, discuss Ask Me Three. Services Needed at Discharge: DME Agency, Home Health Care Services, Speech Therapy and Transportation SDOH Health Related Social Needs: No Data to Display Referrals and interventions: pt unable to communicate
== END 2024-04-01 12:27 | disposition home health service (06) | DRG 871 ==
LOC: ICU 19:35 → MS 03-13 16:46
PROVIDERS: Family Medicine; Internal Medicine; Nurse Practitioner Acute Care; Nurse Practitioner Family; Student in an Organized Health Care Education/Training Program; Admitting Provider Family Medicine; PCP Nurse Practitioner Family; Visit Provider Family Medicine
DX: A41.9 Sepsis, unspecified organism (principal); J69.0 Pneumonitis due to inhalation of food and vomit; J96.01 Acute respiratory failure with hypoxia; R65.21 Severe sepsis with septic shock; N13.8 Other obstructive and reflux uropathy; I69.351 Hemiplegia and hemiparesis following cerebral infarction affecting right dominant side; F11.20 Opioid dependence, uncomplicated; N30.01 Acute cystitis with hematuria; E87.0 Hyperosmolality and hypernatremia; I47.10 Supraventricular tachycardia, unspecified; R33.9 Retention of urine, unspecified; N40.1 Benign prostatic hyperplasia with lower urinary tract symptoms; Z79.4 Long term (current) use of insulin; R41.89 Other symptoms and signs involving cognitive functions and awareness; G89.29 Other chronic pain; Z89.411 Acquired absence of right great toe; E11.42 Type 2 diabetes mellitus with diabetic polyneuropathy; I69.391 Dysphagia following cerebral infarction; R13.10 Dysphagia, unspecified; Z91.412 Personal history of adult neglect; R62.7 Adult failure to thrive; E03.9 Hypothyroidism, unspecified; E78.2 Mixed hyperlipidemia; I69.321 Dysphasia following cerebral infarction; Y95 Nosocomial condition; E88.09 Other disorders of plasma-protein metabolism, not elsewhere classified; E87.6 Hypokalemia; E11.65 Type 2 diabetes mellitus with hyperglycemia; J45.909 Unspecified asthma, uncomplicated; I65.22 Occlusion and stenosis of left carotid artery; F41.1 Generalized anxiety disorder; F17.290 Nicotine dependence, other tobacco product, uncomplicated; Z68.25 Body mass index [BMI] 25.0-25.9, adult; B96.4 Proteus (mirabilis) (morganii) as the cause of diseases classified elsewhere; K59.03 Drug induced constipation; T40.2X5A Adverse effect of other opioids, initial encounter; G93.89 Other specified disorders of brain; W19.XXXA Unspecified fall, initial encounter; Z66 Do not resuscitate; Z89.422 Acquired absence of other left toe(s); Z89.421 Acquired absence of other right toe(s)
CPT/HCPCS: 36410; 00123; 36415; 70496; 70498; 76942; 80048; 80053; 82805; 84145; 85027; 87040; 87077; 87637; 87641; 92526; 92610; 93308; 99221; 99291; 99498; J1650; 70450; 71045; 72125; 72192; 80177; 81003; 81015; 82140; 83605; 83735; 83880; 84132; 84484; 85025; 87070; 87086; 87186; 87205; 94640; 94667; 94668; 94760; 99223; 99231; 99232; 99233; 99239; J0456; J0692; J0696; J1815; J1941; J1953; J2060; J2270; J3370; J3372; J3480; J3490; J7613; J7620

== ENCOUNTER 2024-10-02 17:54 | Outpatient (REF) | payer MEDICARE, MEDICAID, SELFPAY ==
[2024-10-02 15:38] LABS: Bilirubin Negative (Negative); Blood Small (Negative); Clarity Cloudy (Clear); Glucose Negative (Negative); Ketones Negative (Negative); Leukocyte Esterase Negative (Negative); Nitrite Negative (Negative); Specific Gravity 1.025 (1.005-1.025)
[2024-10-02 16:07] LABS: WBC 20-50 HPF (0-5)
[2024-10-02 16:08] LABS: Bacteria Many HPF (Negative); C & S Indicated? Yes; Crystals Negative HPF (Negative); Epithelial Cells Rare HPF (Negative); Mucus Negative (Negative)
== END 2024-10-02 17:55 | disposition home or self-care (01) ==
LOC: LBN 17:54
PROVIDERS: PCP Nurse Practitioner Family; Visit Provider Nurse Practitioner Family
DX: R50.9 Fever, unspecified (principal)
CPT/HCPCS: 87077; 81003; 81015; 87086; 87186

== ENCOUNTER 2024-10-06 15:28 | Outpatient (REF) | payer MEDICARE, MEDICAID, SELFPAY ==
[2024-10-06 15:24] LABS: Abs Immature Grans 0.01 10^3/uL (0.0-0.06); Absolute Basophil Count 0.05 10^3/uL (0.0-0.2); Absolute Eosinophil Count 0.17 10^3/uL (0.0-0.7); Absolute Lymphocyte Count 0.89 10^3/uL (1.2-3.4); Absolute Monocyte Count 0.28 10^3/uL (0.1-0.8); Absolute Neutrophil Count 1.76 10^3/uL (1.2-6.7); Basophils % 1.6 %; Eosinophils % 5.4 %; HCT 30.6 % (40.0-50.0); HGB 10.2 g/dL (13.5-17.5); Immature Grans % 0.3 %; Lymphocytes % 28.2 %; MCH 30.4 pg (27.0-33.0); MCHC 33.3 % (32.0-36.0); MCV 91 fL (80-95); MPV 11.4 fL (8.0-11.0); Monocytes % 8.9 %; Neutrophils % 55.6 %; Platelet Count 171 10^3/uL (130-400); RBC 3.35 10^6/uL (4.36-5.78); RDW 13.4 % (11.8-14.1); WBC 3.16 10^3/uL (4.4-10.8)
[2024-10-06 17:28] LABS: ALT 18 U/L (16-63); AST 22 U/L (15-37); Alkaline Phosphatase 95 U/L (46-116); Anion Gap 5.2 mmol/L (3-11); BUN 22 mg/dL (7-18); Bilirubin, Total 0.52 mg/dL (0.2-1.0); CO2 28.8 mmol/L (21.0-32.0); CREATININE 0.7 mg/dL (0.70-1.30); Calcium 8.2 mg/dL (8.5-10.1); Chloride 112 mmol/L (98-107); Glucose 258 mg/dL (74-106); Potassium 3.9 mmol/L (3.5-5.1); Sodium 146 mmol/L (136-145); Total Protein 5.7 g/dL (6.4-8.2)
[2024-10-06 17:55] LABS: Hemoglobin A1C 7.3 % (<5.7)
== END 2024-10-06 15:29 | disposition home or self-care (01) ==
LOC: LBN 15:28
PROVIDERS: PCP Nurse Practitioner Family; Visit Provider Nurse Practitioner Family
DX: R50.9 Fever, unspecified (principal); E11.9 Type 2 diabetes mellitus without complications
CPT/HCPCS: 80053; 83036; 85025

== ENCOUNTER 2024-12-23 13:55 | Inpatient (IN) | payer MEDICARE, MEDICAID, SELFPAY ==
[2024-12-23] VITALS (70 sets, daily range): BP systolic 83–190; BP diastolic 26–116; PULSE 85–112; RESP 0–26; TEMP 36.4–37; O2SAT 88–99
--- NOTE | 2024-12-23 13:45 | RT.EKG_ITS ---
APPROVED REPORT Exam: Resting ECG Reason for Exam: Weakness Patient Location: E HR:106 bpm ECG Measurements Heart Rate 106 AXIS NH 168 P 85 QRSd 88 QRS -75 QT 352 T 62 QTc 469 Conclusion Sinus tachycardia, rate [address] depression V3-V5 No STEMI
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
[2024-12-23 14:35] LABS: HCT 39.9 % (40.0-50.0); HGB 12.7 g/dL (13.5-17.5); MCH 29.6 pg (27.0-33.0); MCHC 31.8 % (32.0-36.0); MCV 93 fL (80-95); MPV 10.2 fL (8.0-11.0); Platelet Count 242 10^3/uL (130-400); RBC 4.29 10^6/uL (4.36-5.78); RDW 14.5 % (11.8-14.1); RDW-SD 49.7 fL; WBC 14.61 10^3/uL (4.4-10.8)
[2024-12-23 14:37] LABS: Lactate 3.6 mmol/L (<or=2.0)
[2024-12-23 14:48] LABS: Absolute Neutrophil Count 13.44 10^3/uL (1.2-6.7); Bands % 9 %
[2024-12-23 14:49] LABS: Absolute Lymphocyte Count 0.58 10^3/uL (1.2-3.4); Absolute Monocyte Count 0.58 10^3/uL (0.1-0.8); Anisocytosis 1+; Atypical Lymphocytes % 0 %; Diff Comment Manual Differential
[2024-12-23 15:02] LABS: D-Dimer 1551 ng/mlFEU (<500)
[2024-12-23 15:04] LABS: ALT 17 U/L (16-63); AST 24 U/L (15-37); Albumin 2.2 g/dL (3.4-5.0); Alkaline Phosphatase 90 U/L (46-116); Anion Gap 5.8 mmol/L (3-11); BUN 32 mg/dL (7-18); Bilirubin, Total 1.55 mg/dL (0.2-1.0); CO2 32.2 mmol/L (21.0-32.0); CREATININE 1.1 mg/dL (0.70-1.30); Calcium 8.5 mg/dL (8.5-10.1); Chloride 108 mmol/L (98-107); Estimated GFR 71.32 (mL/min/1.73m2); Glucose 160 mg/dL (74-106); Magnesium 1.6 mg/dL (1.8-2.4); NT-proBNP 4369 pg/mL (<300); Potassium 3.5 mmol/L (3.5-5.1); Sodium 146 mmol/L (136-145); TSH (W/Ref FT4) 1.18 uIU/mL (0.36-3.74); Total Protein 7.1 g/dL (6.4-8.2); Troponin I 24 ng/L (<or=76)
[2024-12-23 15:23] LABS: COVID-19 PCR Negative (Negative); Influenza A PCR Negative (Negative); Influenza B PCR Negative (Negative); RSV PCR Negative (Negative); Source Nasopharynx
--- NOTE | 2024-12-23 15:31 | DI.RAD_ITS ---
Exam(s) XR CHEST 2V PA LATERAL EXAM: XR CHEST 2V PA LATERAL CLINICAL HISTORY: hypoxia. TECHNIQUE: 2D digital imaging was performed. COMPARISON: CR,XR XR PORTABLE CHEST AP from 03/20/2024 FINDINGS: 2 views: Heart size is normal. The mediastinum is not widened. Now large area of infiltrate evident in the right lower lobe. This involves both the basal segments as well as the superior segment of the right lower lobe. Mild increased markings are noted behind th e left side of the heart in the left lower lobe although this appears somewhat less than was evident in February 2024. There are no obvious pleural effusions. IMPRESSION: Prominent infiltrate now evident in the right lower lobe. No obvious pleural effusions. DATA REPOSITORY: RADIATION DOSE DELIVERED:
[2024-12-23] MEDS: CEFEPIME 1 GM in Normal Saline 50 ML IVPB (15:40)
[2024-12-23] MEDS: LINEZOLID 600 MG/300 ML BAG 300 MG IVPB (15:45)
[2024-12-23] MEDS: Normal Saline 500 ML IV (15:46)
[2024-12-23] MEDS: Albuterol/Ipratropium 3 ML UPD VIAL UPD (15:48)
[2024-12-23 15:55] LABS: Lactate 2.8 mmol/L (<or=2.0)
[2024-12-23 16:16] LABS: Troponin I 20 ng/L (<or=76)
[2024-12-23 16:54] LABS: BE (Venous) 1 mmol/L (-2-3); HCO3 (Venous) 25 mmol/L (23-28); O2 Sat (Venous) 97 %; TCO2 (Venous) 23 mmol/L (24-29); pCO2 (Venous) 37 mmHg (41-51); pH (Venous) 7.45 (7.31-7.41); pO2 (Venous) 79 mmHg
[2024-12-23] MEDS: Normal Saline - Diluent 50 ML VIAL IJ (16:54)
[2024-12-23] MEDS: Omnipaque 350 MG/ML 100 ML BTL 80 ML IJ (16:55)
--- NOTE | 2024-12-23 17:13 | DI.CT_ITS ---
Exam(s) CT CHEST PE CTA EXAM: CT CHEST PE CTA CLINICAL HISTORY: hypoxia, tachycardia + dimer. TECHNIQUE: Imaging Protocol: CT angiography of the chest was performed using pulmonary embolus santosh col. Multi planar reconstructions were performed. CONTRAST MATERIAL: Intravenous: Omnipaque 350 Contrast volume: 80 cc COMPARISON: CT ABD PELVIS WITH CONTRAST from 12/23/[address] CHEST PE CTA from 03/09/[address] CHEST/ABD/PEL W from 05/15/2023 CR XR CHEST 2V PA LATERAL from 12/23/2024 Chest x-ray 12/23/2024 reviewed FINDINGS: CHEST: PULMONARY ARTERIES: There are no intraluminal filling defects to suggest acute pulmonary emboli. LUNGS: There is prominent infiltrate in the right lung involving in the posterior aspect of the right upper lobe, the superior segment of the right lower lobe and basal segments of the right lower lobe and there is also some volume loss in the basal segments of the right lower lobe as well as a moderat e size right pleural effusion, non loculated in appearance.. There is some infiltrate also evident i n the left lower lobe posterior basal segment as well as in the superior segment of the left lower lo be. There is no pleural effusion on the left side. There is mild subpleural infiltrate in the later al aspect of the left upper lobe in region of the superior lingular segment. MEDIASTINUM: There is hilar bilaterally. There is prominent subcarinal adenopathy. CARDIAC: Heart size is upper normal. There is no pericardial effusion.Caliber of the thoracic aorta is within normal limits. No evidence of aortic dissection. There is no significant shift of the inte rventricular septum. PARTIALLY VISUALIZED UPPERMOST ABDOMEN: There is a hypodense nodule in the right adrenal gland which measures 3.2 by 2.6 cm, slightly increased in size from CT scan of 05/15/2023. It is also further in creased in size from CT scan of 2008. At that time this nodule measured 1.5 by 1.5 cm. Average Houn sfield unit measurements within this adrenal nodule are 8 HU. No findings in the opposite-left adren al gland. Spleen size normal. OSSEOUS: There is compression fracture of superior endplate of T8, this previously present on CT scan of April 2023. No new compression fractures evident. No acute rib fractures evident. IMPRESSION: 1. No evidence of acute pulmonary emboli. However, there is prominent infiltrate in the right lung i nvolving the right upper lobe and all segments of the right lower lobe and there is also a non locula gasper moderate size ipsilateral right pleural effusion. There is also some volume loss in the basal se gments of the right lower lobe. There is also a significant but lesser amount of infiltrate In the left lower lobe. There is no left pleural effusion. 2. There is bilateral hilar and subcarinal adenopathy. 3. Again noted is a hypodense nodule-mass in the right adrenal gland this has been slowly increasing since prior CT scans of 2008. In 2008 it measured 1.5 x 1.5 cm. Presently measures 3.2 x 2.6 cm. N evertheless, may still represent a benign adenoma exhibiting slow growth. Opposite-left adrenal glan d remains unremarkable. Findings called by myself to ER provider 12/23/2024 at 5:45 p.m. RADIATION DOSE DELIVERED: 135.48mGy.cm Total DLP DATA REPOSITORY: All CT scans at this facility are submitted to the National Radiology Data Registry (NRDR) Dose Index Registry (DIR) with the [employer] (ACR). RADIATION OPTIMIZATION: All CT scans at this facility use at least one of these dose optimization te chniques: automated exposure control; mA and/or kV adjustment per patient size (includes targeted exa ms where dose is matched to clinical indication); or iterative reconstruction.
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
[2024-12-23 20:45] LABS: HCT 33.4 % (40.0-50.0); HGB 10.9 g/dL (13.5-17.5); MCH 30.2 pg (27.0-33.0); MCHC 32.6 % (32.0-36.0); MCV 93 fL (80-95); MPV 10.4 fL (8.0-11.0); Platelet Count 221 10^3/uL (130-400); RBC 3.61 10^6/uL (4.36-5.78); RDW 14.4 % (11.8-14.1); RDW-SD 49.4 fL; WBC 13.34 10^3/uL (4.4-10.8)
[2024-12-23 21:17] LABS: Absolute Monocyte Count 0.93 10^3/uL (0.1-0.8); Absolute Neutrophil Count 11.21 10^3/uL (1.2-6.7); Atypical Lymphocytes % 0 %; Bands % 2 %; Diff Comment Manual Differential; RBC Morphology Normal
[2024-12-23] MEDS: Lactated Ringers 1,000 ML 75 ML IV (22:26)
[2024-12-23] MEDS: Pantoprazole 40 MG TABCR PO (23:51)
[2024-12-23] MEDS: Gabapentin 100 MG CAP PO (23:51)
[2024-12-23] MEDS: Divalproex 500 MG TABEC PO (23:51)
[2024-12-23] MEDS: levETIRAcetam 250 MG TAB PO (23:52)
[2024-12-23] MEDS: AZITHROMYCIN 250 MG in Normal Saline 250 ML IVPB (23:52)
[2024-12-24] VITALS (7 sets, daily range): BP systolic 112–142; BP diastolic 57–88; PULSE 78–82; RESP 2–19; TEMP 36.7; O2SAT 92–99
[2024-12-24] MEDS: Insulin Glargine 300 UNITS/3 ML PEN 20 UNITS SC (00:10)
[2024-12-24] MEDS: CEFEPIME 1 GM in Normal Saline 50 ML IVPB ×3 (00:17→16:31)
[2024-12-24 00:47] LABS: Bilirubin Negative (Negative); Blood Moderate (Negative); Clarity Sl Cloudy (Clear); Glucose 250 mg/dL (Negative); Ketones 15 mg/dL (Negative); Leukocyte Esterase Negative (Negative); Nitrite Positive (Negative); Specific Gravity 1.025 (1.005-1.025); pH 5.5 (5-8)
[2024-12-24 00:55] LABS: Bacteria Moderate HPF (Negative); Crystals Negative HPF (Negative); Epithelial Cells Negative HPF (Negative)
[2024-12-24 00:56] LABS: C & S Indicated? No; Casts 3-5 Coarse Granular LPF (Negative); Mucus Moderate (Negative)
[2024-12-24] MEDS: LINEZOLID 600 MG/300 ML BAG 300 MG IVPB ×2 (03:30→17:20)
[2024-12-24] MEDS: Albuterol/Ipratropium 3 ML UPD VIAL UPD ×3 (08:02→22:14)
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
[2024-12-24] MEDS: Docusate Sodium 100 MG CAP PO (09:14)
[2024-12-24] MEDS: Pantoprazole 40 MG TABCR PO ×2 (09:14→19:43)
[2024-12-24] MEDS: Gabapentin 100 MG CAP PO ×3 (09:14→19:43)
[2024-12-24] MEDS: levETIRAcetam 250 MG TAB PO ×2 (09:14→19:43)
[2024-12-24] MEDS: Carvedilol 12.5 MG TAB 6.25 MG PO (09:15)
[2024-12-24] MEDS: ARIPiprazole 5 MG TAB 10 MG PO (09:30)
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
[2024-12-24 11:25] LABS: MRSA PCR Positive (Negative)
[2024-12-24] MEDS: MORPHine IR 15 MG TAB 7.5 MG PO ×2 (14:24→22:16)
[2024-12-24] MEDS: Normal Saline Flush 10 ML SYR ×3 (14:24→17:20)
[2024-12-24] MEDS: AZITHROMYCIN 500 MG in Normal Saline 250 ML 250 MG IVPB (14:25)
--- NOTE | 2024-12-24 14:55 | W.PM.PROGNOT ---
Date of Service Date of service: 12/24/24 Time of Service: 14:55 Assessment and Plan Assessment and plan (1) Pneumonia: Status: Acute Assessment and plan: Pneumonia, possibly aspiration. Will probably not need Linezolid coverage (will check MRSA screen), will continue Cefepime and add Zithro. Will continue usual meds as is otherwise for chronic pain, DM, hypothyroid, and seizures. Per history patient is DNR. (2) Hypertension: Status: Chronic Assessment and plan: Blood pressure well controlled. Cw current meds including coreg. Pt not on reginald and not listed as an allergy? Estimated GFR is 72. Will monitor BP to see if he will be able to tolerate this med. Pt does have significant proteinuria (3) Hyperlipidemia: Status: Chronic Assessment and plan: c/w statin 80mg po qhs (4) Type 2 diabetes mellitus: Status: Chronic Assessment and plan: Pt is on lantus and sliding scale insulin (5) Adenoma of right adrenal gland: Status: Acute Assessment and plan: Enlarging per Radiology report. Will defer to the outpatient setting CT chest MPRESSION: 1. No evidence of acute pulmonary emboli. However, there is prominent infiltrate in the right lung involving the right upper lobe and all segments of the right lower lobe and there is also a non loculated moderate size ipsilateral right pleural effusion. There is also some volume loss in the basal segments of the right lower lobe. There is also a significant but lesser amount of infiltrate In the left lower lobe. There is no left pleural effusion. 2. There is bilateral hilar and subcarinal adenopathy. 3. Again noted is a hypodense nodule-mass in the right adrenal gland this has been slowly increasing since prior CT scans of 2008. In 2008 it measured 1.5 x 1.5 cm. Presently measures 3.2 x 2.6 cm. Nevertheless, may still represent a benign adenoma exhibiting slow growth. Opposite-left adrenal gland remains unremarkable. (6) Acute cerebrovascular accident (CVA): Status: Acute Assessment and plan: Will investigate chart as pt does not appear to be on aspirin or plavix Subjective Subjective Interval history since last seen: PT seen and examined this afternoon. POC d/w pt as well as bedside nurse during MDR Exam Narrative Exam Narrative: 160.56, 101, 36.4, 20, 93% (90-92 during exam). HEENT poor dentition; neck supple; lungs coarse rhonchi throughout, no amu no distress; heart RRR; abdomen soft and NT; extremities w/o edema, dry ulcer overlying head second metatarsal on left; neuro expressive aphasia, follows one step commands, right hemiparesis Objective Last Vital Signs Temp 36.7 C 12/24/24 07:46 Pulse 80 12/24/24 08:06 Resp 18 12/24/24 08:06 BP 112/88 12/24/24 07:46 Pulse Ox 92 12/24/24 08:53 Laboratory Results - last 24 hr 12/23/24 12/23/24 12/23/24 14:26 15:45 16:50 WBC RBC Hgb Hct MCV MCH MCHC RDW Plt Count MPV Immature Gran % Neutrophils % Band Neutrophils % Lymphocytes % Atypical Lymphs % Monocytes % Eosinophils % Basophils % Nucleated RBC % Absolute Neutrophils Absolute Lymphocytes Absolute Monocytes Absolute Eosinophils Absolute Basophils RBC Morphology D-Dimer 1551 H VBG pH 7.45 H VBG pCO2 37 L VBG pO2 79 VBG HCO3 25 VBG Total CO2 23 L VBG O2 Saturation 97 VBG Base Excess 1 VBG Lactate 2.8 H* Sodium 146 H Potassium 3.5 Chloride 108 H Carbon Dioxide 32.2 H Anion Gap 5.8 BUN 32 H Creatinine 1.1 Est GFR (CKD-EPI 2020) 71.32 Glucose 160 H Calcium 8.5 Magnesium 1.6 L Total Bilirubin 1.55 H AST 24 ALT 17 Alkaline Phosphatase 90 Troponin I 24 20 NT-Pro-B Natriuret Pep 4369 H Total Protein 7.1 Albumin 2.2 L TSH 1.18 Urine Color Urine Clarity Urine pH Ur Specific [place] Urine Protein Urine Ketones Urine Blood Urine Nitrite Urine Bilirubin Urine Urobilinogen Ur Leukocyte Esterase Urine RBC Urine WBC Ur Epithelial Cells Urine Crystals Urine Bacteria Urine Casts Urine Mucus Ur Culture Indicated? Urine Glucose COVID-19 Source Nasopharynx SARS-CoV-2 (PCR) Negative Influenza Type A (PCR) Negative Influenza Type B (PCR) Negative RSV (PCR) Negative MRSA (TEM-PCR) 12/23/24 12/24/24 12/24/24 20:39 00:00 08:32 WBC 13.34 H RBC 3.61 L Hgb 10.9 L Hct 33.4 L MCV 93 MCH 30.2 MCHC 32.6 RDW 14.4 H Plt Count 221 MPV 10.4 Immature Gran % 0.0 Neutrophils % 82.0 Band Neutrophils % 2 Lymphocytes % 9.0 Atypical Lymphs % 0 Monocytes % 7.0 Eosinophils % 0.0 Basophils % 0.0 Nucleated RBC % 0.0 Absolute Neutrophils 11.21 H Absolute Lymphocytes 1.20 Absolute Monocytes 0.93 H Absolute Eosinophils 0.00 Absolute Basophils 0.00 RBC Morphology Normal D-Dimer VBG pH VBG pCO2 VBG pO2 VBG HCO3 VBG Total CO2 VBG O2 Saturation VBG Base Excess VBG Lactate Sodium Potassium Chloride Carbon Dioxide Anion Gap BUN Creatinine Est GFR (CKD-EPI 2020) Glucose Calcium Magnesium Total Bilirubin AST ALT Alkaline Phosphatase Troponin I NT-Pro-B Natriuret Pep Total Protein Albumin TSH Urine Color Dark Yellow Urine Clarity Sl Cloudy Urine pH 5.5 Ur Specific [place] 1.025 Urine Protein >=300 H Urine Ketones 15 H Urine Blood Moderate H Urine Nitrite Positive H Urine Bilirubin Negative Urine Urobilinogen 1.0 H Ur Leukocyte Esterase Negative Urine RBC 3-5 H Urine WBC 3-5 Ur Epithelial Cells Negative Urine Crystals Negative Urine Bacteria Moderate Urine Casts 3-5 Coarse Granular Urine Mucus Moderate Ur Culture Indicated? No Urine Glucose 250 H COVID-19 Source SARS-CoV-2 (PCR) Influenza Type A (PCR) Influenza Type B (PCR) RSV (PCR) MRSA (TEM-PCR) Positive A Time Spent with Patient Time Spent with Patient: 35-49 minutes Time was spent: preparing to see the patient(eg.review tests), ordering medications,tests, procedures, referring, communicating with other health laboratory animal care veterinarian, indepentently interpreting results, counseling the patient and care coordination
[2024-12-24] MEDS: fentaNYL 100 MCG PATCH TD (16:13)
[2024-12-24] MEDS: Insulin Aspart 300 UNITS/3 ML PEN SC (17:08)
[2024-12-24 17:26] LABS: Glucose 437 mg/dL (74-106)
[2024-12-24] MEDS: Lactated Ringers 1,000 ML 75 ML IV (18:30)
[2024-12-24 18:57] LABS: Legionella Ag Detection Urine Negative (Negative)
[2024-12-24] MEDS: Atorvastatin 40 MG TAB 80 MG PO (19:43)
[2024-12-24] MEDS: LORazepam 1 MG TAB PO (22:14)
[2024-12-24] MEDS: Acetaminophen 325 MG TAB 650 MG PO (22:15)
[2024-12-24] MEDS: Divalproex 500 MG TABEC PO (22:32)
[2024-12-25] MEDS: CEFEPIME 1 GM in Normal Saline 50 ML IVPB ×2 (00:40→07:53)
[2024-12-25] MEDS: LORazepam 1 MG TAB PO ×2 (02:16→23:21)
[2024-12-25] MEDS: LINEZOLID 600 MG/300 ML BAG 300 MG IVPB (04:24)
[2024-12-25 07:18] VITALS: O2SAT 95
[2024-12-25] MEDS: Albuterol/Ipratropium 3 ML UPD VIAL UPD (07:18)
[2024-12-25 07:22] VITALS: O2SAT 96
[2024-12-25 07:32] VITALS: BP 131/50; PULSE 77; RESP 16; TEMP 36.8; O2SAT 92
[2024-12-25 07:43] LABS: Abs Immature Grans 0.01 10^3/uL (0.0-0.06); Absolute Basophil Count 0.05 10^3/uL (0.0-0.2); Absolute Eosinophil Count 0.15 10^3/uL (0.0-0.7); Absolute Lymphocyte Count 0.55 10^3/uL (1.2-3.4); Absolute Monocyte Count 0.41 10^3/uL (0.1-0.8); Absolute Neutrophil Count 4.43 10^3/uL (1.2-6.7); Basophils % 0.9 %; Eosinophils % 2.7 %; HCT 28.8 % (40.0-50.0); HGB 9.3 g/dL (13.5-17.5); Immature Grans % 0.2 %; Lymphocytes % 9.8 %; MCH 29.8 pg (27.0-33.0); MCHC 32.3 % (32.0-36.0); MCV 92 fL (80-95); MPV 10.8 fL (8.0-11.0); Monocytes % 7.3 %; Neutrophils % 79.1 %; Platelet Count 177 10^3/uL (130-400); RBC 3.12 10^6/uL (4.36-5.78); RDW 14.4 % (11.8-14.1); RDW-SD 48.9 fL
[2024-12-25 07:47] LABS: ESR 33 mm/hr (0-20)
[2024-12-25 07:59] LABS: ALT 10 U/L (16-63); AST 20 U/L (15-37); Albumin 1.5 g/dL (3.4-5.0); Alkaline Phosphatase 72 U/L (46-116); Anion Gap 5.8 mmol/L (3-11); BUN 38 mg/dL (7-18); CO2 31.2 mmol/L (21.0-32.0); CREATININE 0.9 mg/dL (0.70-1.30); Chloride 107 mmol/L (98-107); Estimated GFR 90.74 (mL/min/1.73m2); Glucose 266 mg/dL (74-106); Potassium 3.3 mmol/L (3.5-5.1); Sodium 144 mmol/L (136-145); Total Protein 5.5 g/dL (6.4-8.2)
[2024-12-25 08:26] LABS: Procalcitonin 2.01 ng/mL
[2024-12-25] MEDS: Lactated Ringers 1,000 ML 75 ML IV (10:14)
[2024-12-25] MEDS: Insulin Aspart 300 UNITS/3 ML PEN SC ×2 (13:30→14:54)
[2024-12-25] MEDS: MORPHine IR 15 MG TAB 7.5 MG PO ×2 (13:44→23:21)
[2024-12-25] MEDS: levETIRAcetam 250 MG TAB PO (13:47)
[2024-12-25 14:24] LABS: Glucose 399 mg/dL (74-106)
[2024-12-25 14:44] VITALS: BP 159/63; PULSE 91; RESP 22; TEMP 36.8; O2SAT 91
--- NOTE | 2024-12-25 14:58 | PHA.REVIEW2 ---
Pharmacy Admission Review Admission Clinical Review Admission Pharmacy Review: Pneumonia (Acute) Adenoma of right adrenal gland (Acute) Acute cerebrovascular accident (CVA) (Acute) Penicillins Allergy (Unknown, Verified 12/23/24 14:08) Unknown codeine Adverse Reaction (Verified 06/16/23 18:04) itching and bloutchy pentazocine lactate (From [facility]) Adverse Reaction (Verified 12/23/24 14:07) makes me deathly ill Resuscitation Status DNR/DNI Height 5 ft 6 in Weight 86 kg Comments Comments/Follow Ups: Follow up with provider if no DVT prophylaxis ordered Pharmacy Admission Review Renal Dosing Renal Dosing: BUN 38 mg/dL (7-18) H 12/25/24 07:10 Creatinine 0.9 mg/dL (0.70-1.30) 12/25/24 07:10 Medications needing adjustments: Reviewed (CrCl 68.64 mL/min) List of meds needing interventions: Current medications are okay Anticoagulation Anticoagulation: Hgb 9.3 g/dL (13.5-17.5) L 12/25/24 07:10 Hct 28.8 % (40.0-50.0) L 12/25/24 07:10 Plt Count 177 10^3/uL (130-400) 12/25/24 07:10 Creatinine 0.9 mg/dL (0.70-1.30) 12/25/24 07:10 DVT Prophylaxis: Intervened (none currently ordered, reached out to provider and waiting to hear back) Opiate Usage Evaluate Pain Scale/Pains Meds: Reviewed (Fentanyl 100mcg/24hr patch and morphine IR 7.5mg TID PRN - 15mg/24hrs) Scheduled Bowel Reg ordered if on Opiates?: Yes (docusate BID) Relevant Labs Relevant Labs: ESR 33 mm/hr (0-20) H 12/25/24 07:10 Sodium 144 mmol/L (136-145) 12/25/24 07:10 Potassium 3.3 mmol/L (3.5-5.1) L 12/25/24 07:10 Chloride 107 mmol/L (98-107) 12/25/24 07:10 Magnesium 1.6 mg/dL (1.8-2.4) L 12/23/24 14:26 Electrolytes, C-Reactive P, ESR: Reviewed (K 3.3) DM Control DM Control: Glucose 399 mg/dL (74-106) H 12/25/24 13:55 Finger Stick Blood Glucose 399 1454 Finger Stick Blood Glucose 414 1330 Finger Stick Blood Glucose 414 1323 Finger Stick Blood Glucose 414 1323 Finger Stick Blood Glucose 325 0804 DM Control: Reviewed Insulin Dosing, Diabetic Medication: Has order for SS insulin and glargine 20 units qPM Cardiac Review Cardiac Review: Troponin I 20 ng/L (<or=76) 12/23/24 15:45 NT-Pro-B Natriuret Pep 4369 pg/mL (<300) H 12/23/24 14:26 Blood Pressure 159/63 1444 Blood Pressure 131/50 0732 BP, HR, EF%: Reviewed (HR 91, Ox 91) List meds needing interventions: Has order for carvedilol 6.25mg daily QTc Review QTc: Reviewed (469 from 12/23/24) IV to PO Switch IV Medications: Reviewed (linezolid, cefepime and azithromycin) Home Meds Home Med List reviewed: Reviewed Relevent Home Meds Not ordered & why?: Narcan (PRN) Current Meds Current Medication Order Review: Intervened Comments: Added IV admission order set Per nurse during morning meeting patient refused all PO meds this AM Pharmacy Antibiotic Review Relevant Labs: Relevant Labs 12/25/24 07:10 Procalcitonin 2.01 WBC 5.60 10^3/uL (4.4-10.8) 12/25/24 07:10 Procalcitonin 2.01 ng/mL 12/25/24 07:10 Temperature 36.8 C Temperature 36.8 C Microbiology 12/23/24 20:13 Blood Culture - Preliminary Blood NO GROWTH 24 HOURS 12/23/24 19:00 Blood Culture - Preliminary Blood NO GROWTH 24 HOURS Pharmacy Antibiotic Activity: C/S review and Reviewed, no change Comments: Patient is on cefepime, linezolid and azithromycin, day 2, for pneumonia. WBC decreased from 13.34 and blood cultures showing no growth at 24 hours. Comments Comments/Follow Ups: Follow up with provider if no DVT prophylaxis ordered
--- NOTE | 2024-12-25 15:00 | PDOC.CMPRO ---
Date of service: 12/25/24 Time of Service: 11:00 Care Management Progress Note Progress Note Text Progress Note Text: Ed was in the bed with HOB elevated today when CM met with him. He was more responsive with CM today. CM helped Ed to find a TV channel that worked for him, and he thanked me. CM spoke with Susie, Ed's son today. 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 Ed has a CM in the community through [place] [facility], Gm Madden. Susie stated that Gm is a huge support. Ed also has money follows the person support through his medicaid/[facility]. Ed also has HH RN to attend to Ed's wounds. Susie also stated that he and Ed have an excellent relationship with Ed's PCP. Ed has lived with Susie, his and their 3 kids for about 6 months. They have a nice routine and Susie feels that things are going pretty well at home. Discharge Potential Discharge Needs: PCP F/U Appt Anticipated Barriers to Discharge: None Identified Patient/Family Education Needs: Review discharge instructions, discuss Ask Me Three Transportation: Private vehicle Plan: Anticipate that Ed will be discharged home with his son, who is his caregiver, once medically stable. He will resume his HH RN, and continue with his community supports. Ed will f/u with his PCP and continue per his plan of care. He will transport home with his caregivers. CM will continue to follow. Social Determinants of Health Screening Will the Patient Participate in the Screening?: Unable to obtain Anticipated HH Services Anticipated HH Services at Discharge [facility], RN Following Provider: Galen Rivera.
--- NOTE | 2024-12-25 17:56 | PGE_ITS ---
Date of Service Date of service: 12/25/24 Time of Service: 17:56 Assessment and Plan Assessment and plan (1) Pneumonia: Status: Acute Assessment and plan: Pneumonia, possibly aspiration. Will probably not need Linezolid coverage (will check MRSA screen), will continue Cefepime and add Zithro. Will continue usual meds as is otherwise for chronic pain, DM, hypothyroid, and seizures. . Per history patient is DNR. 12/25/24 zithromax/cefepime. WBC improved, esr still pretty elevated (2) Hypertension: Status: Chronic Assessment and plan: Blood pressure well controlled. Cw current meds including coreg. Pt not on reginald and not listed as an allergy? Estimated GFR is 72. Will monitor BP to see if he will be able to tolerate this med. Pt does have significant proteinuria Pt has refused meds multiple time (3) Hyperlipidemia: Status: Chronic Assessment and plan: c/w statin 80mg po qhs (4) Type 2 diabetes mellitus: Status: Chronic Assessment and plan: Pt is on lantus and sliding scale insulin (5) Adenoma of right adrenal gland: Status: Acute Assessment and plan: Enlarging per Radiology report. Will defer to the outpatient setting CT chest MPRESSION: 1. No evidence of acute pulmonary emboli. However, there is prominent infiltrate in the right lung involving the right upper lobe and all segments of the right lower lobe and there is also a non loculated moderate size ipsilateral right pleural effusion. There is also some volume loss in the basal segments of the right lower lobe. There is also a significant but lesser amount of infiltrate In the left lower lobe. There is no left pleural effusion. 2. There is bilateral hilar and subcarinal adenopathy. 3. Again noted is a hypodense nodule-mass in the right adrenal gland this has been slowly increasing since prior CT scans of 2008. In 2008 it measured 1.5 x 1.5 cm. Presently measures 3.2 x 2.6 cm. Nevertheless, may still represent a benign adenoma exhibiting slow growth. Opposite-left adrenal gland remains unremarkable. (6) Acute cerebrovascular accident (CVA): Status: Acute Assessment and plan: Will investigate chart as pt does not appear to be on aspirin or plavix Subjective Subjective Interval history since last seen: Pt seen and examined in his room. NS report pt with multiple refusals of med ication including abx and insulin Exam Narrative Exam Narrative: 160.56, 101, 36.4, 20, 93% (90-92 during exam). HEENT poor dentition; neck supple; lungs coarse rhonchi throughout, no amu no distress; heart RRR; abdomen soft and NT; extremities w/o edema, dry ulcer overlying head second metatarsal on left; neuro expressive aphasia, follows one step commands, right hemiparesis Objective Last Vital Signs Temp 36.8 C 12/25/24 14:44 Pulse 91 H 12/25/24 14:44 Resp 22 12/25/24 14:44 BP 159/63 H 12/25/24 14:44 Pulse Ox 91 L 12/25/24 14:44 Laboratory Results - last 24 hr 12/24/24 12/25/24 12/25/24 00:25 07:10 13:55 WBC 5.60 RBC 3.12 L Hgb 9.3 L Hct 28.8 L MCV 92 MCH 29.8 MCHC 32.3 RDW 14.4 H Plt Count 177 MPV 10.8 Immature Gran % 0.2 Neutrophils % 79.1 Lymphocytes % 9.8 Monocytes % 7.3 Eosinophils % 2.7 Basophils % 0.9 Nucleated RBC % 0.0 Absolute Neutrophils 4.43 Absolute Lymphocytes 0.55 L Absolute Monocytes 0.41 Absolute Eosinophils 0.15 Absolute Basophils 0.05 ESR 33 H Sodium 144 Potassium 3.3 L Chloride 107 Carbon Dioxide 31.2 Anion Gap 5.8 BUN 38 H Creatinine 0.9 Est GFR (CKD-EPI 2020) 90.74 Glucose 266 H 399 H Calcium 8.0 L Total Bilirubin 0.60 AST 20 ALT 10 L Alkaline Phosphatase 72 Total Protein 5.5 L Albumin 1.5 L Procalcitonin 2.01 Urine Legionella Ag Negative Time Spent with Patient Time Spent with Patient: 25-34 minutes Time was spent: preparing to see the patient(eg.review tests), obtaining and/or reviewing separately otained hiistory, ordering medications,tests, procedures, referring, communicating with other health health care marketing specialist, indepentently interpreting results, counseling the patient and care coordination
--- NOTE | 2024-12-25 18:40 | NUR.NOTE ---
Nursing Note: Pt refused all meds. When RN attempted admnister IV abx, pt waved his arm away multiple times, yelling 'No! When RN attempted to rehook ordered LR, pt refused. RN attempted to educate pt on abx admin for pneumonia, pt yelled No! again and shook his head. RN attempted to have Fco Silverman RN adminster abx, pt refused. Provider notified, see provider note. dairy store manager, Charge nurse, pharmacy notified. RN attempted to admin abx again after 45 minutes had passed from initial encounter, pt again refused, shaking his head and yelling No!. Pt refused fingersticks, insulin.
[2024-12-25 22:22] LABS: CRP, High Sensitivity >15.00 mg/L (See Note)
[2024-12-25] MEDS: Acetaminophen 325 MG TAB 650 MG PO (23:21)
[2024-12-26 07:54] VITALS: BP 145/59; PULSE 66; RESP 18; TEMP 36.9; O2SAT 92
[2024-12-26] MEDS: MORPHine IR 15 MG TAB 7.5 MG PO ×3 (10:02→22:01)
[2024-12-26] MEDS: Acetaminophen 325 MG TAB 650 MG PO ×2 (10:02→17:25)
--- NOTE | 2024-12-26 10:42 | NUR.NOTE ---
Nursing Note: Patient did complain of pain this morning. Patient refused assessment this morning and refused medications with exception of acetaminophen and morphine. Patient displayed aggressive physical behavior and verbally refused care and assessment followed by prolonged cursing. Attempted to identify possible needs which may contribute to patient's behavior, but was limited by patient's uncooperative state. Discussed this with Dr. Jean.
--- NOTE | 2024-12-26 14:01 | PGE_ITS ---
Date of Service Date of service: 12/26/24 Time of Service: 14:01 Assessment and Plan Assessment and plan (1) Pneumonia: Status: Acute Assessment and plan: Pneumonia, possibly aspiration. Will probably not need Linezolid coverage (will check MRSA screen), will continue Cefepime and add Zithro. Will continue usual meds as is otherwise for chronic pain, DM, hypothyroid, and seizures. . Per history patient is DNR. 12/25/24 zithromax/cefepime. WBC improved, esr still pretty elevated 2.1.25 C/w current care. Did d/w pt that most likely we can dc him tomorrow. Pt no longer has an oxygen requirement. Recheck labs in am (2) Hypertension: Status: Chronic Assessment and plan: Blood pressure well controlled. Cw current meds including coreg. Pt not on reginald and not listed as an allergy? Estimated GFR is 72. Will monitor BP to see if he will be able to tolerate this med. Pt does have significant proteinuria Pt has refused meds multiple time (3) Hyperlipidemia: Status: Chronic Assessment and plan: c/w statin 80mg po qhs (4) Type 2 diabetes mellitus: Status: Chronic Assessment and plan: Pt is on lantus and sliding scale insulin 2.1.25 NS has reported that pt has refused medications on multiple occasions. Latest fingerstick glucose values 168/87/464. Hopefully pt will be more consistent with his treatments (5) Adenoma of right adrenal gland: Status: Acute Assessment and plan: Enlarging per Radiology report. Will defer to the outpatient setting CT chest MPRESSION: 1. No evidence of acute pulmonary emboli. However, there is prominent infiltrate in the right lung involving the right upper lobe and all segments of the right lower lobe and there is also a non loculated moderate size ipsilateral right pleural effusion. There is also some volume loss in the basal segments of the right lower lobe. There is also a significant but lesser amount of infiltrate In the left lower lobe. There is no left pleural effusion. 2. There is bilateral hilar and subcarinal adenopathy. 3. Again noted is a hypodense nodule-mass in the right adrenal gland this has been slowly increasing since prior CT scans of 2008. In 2008 it measured 1.5 x 1.5 cm. Presently measures 3.2 x 2.6 cm. Nevertheless, may still represent a benign adenoma exhibiting slow growth. Opposite-left adrenal gland remains unremarkable. (6) Acute cerebrovascular accident (CVA): Status: Acute Assessment and plan: Will investigate chart as pt does not appear to be on aspirin or plavix .12.19 Chart review indicates that both of aspirin and brilinta were stopped on 04/01/24 for an unclear reason. I will restart asa and investigate if brilinta should be restarted Subjective Subjective Interval history since last seen: Pt seen and examined in his room this afternoon. Pt indicating that he will take his medications. Exam Narrative Exam Narrative: heent-ncat perrla neck-no lad no jvd cv-rrr no mrg lungs-r sided rhonci abs-sntndbsa neuro-aphasic by in large but responds intermittently Objective Last Vital Signs Temp 36.9 C 12/26/24 07:54 Pulse 66 12/26/24 07:54 Resp 18 12/26/24 07:54 BP 145/59 H 12/26/24 07:54 Pulse Ox 92 12/26/24 07:54 Laboratory Results - last 24 hr 12/25/24 13:55 Glucose 399 H Time Spent with Patient Time Spent with Patient: 25-34 minutes Time was spent: preparing to see the patient(eg.review tests), ordering medications,tests, procedures, referring, communicating with other health rn transitional care, indepentently interpreting results, counseling the patient and care coordination
[2024-12-26] MEDS: Normal Saline Flush 10 ML SYR IVP ×4 (14:46→22:03)
[2024-12-26] MEDS: Gabapentin 100 MG CAP PO ×2 (14:46→22:02)
[2024-12-26] MEDS: AZITHROMYCIN 500 MG in Normal Saline 250 ML 250 MG IVPB (14:46)
[2024-12-26 15:37] VITALS: BP 207/72; PULSE 78; RESP 18; TEMP 36.9; O2SAT 94
[2024-12-26 16:11] VITALS: BP 142/80
[2024-12-26] MEDS: CEFEPIME 1 GM in Normal Saline 50 ML IVPB (16:21)
[2024-12-26] MEDS: LORazepam 1 MG TAB PO ×2 (17:25→22:02)
[2024-12-26] MEDS: LINEZOLID 600 MG/300 ML BAG 300 MG IVPB (17:25)
[2024-12-26] MEDS: Insulin Aspart 300 UNITS/3 ML PEN SC (17:29)
[2024-12-26 20:21] VITALS: BP 157/63; PULSE 79; RESP 18; TEMP 36.8; O2SAT 96
[2024-12-26] MEDS: Pantoprazole 40 MG TABCR PO (22:02)
[2024-12-26] MEDS: Docusate Sodium 100 MG CAP PO (22:02)
[2024-12-26] MEDS: Divalproex 500 MG TABEC PO (22:02)
[2024-12-26] MEDS: Atorvastatin 40 MG TAB 80 MG PO (22:03)
[2024-12-26] MEDS: levETIRAcetam 250 MG TAB PO (22:03)
[2024-12-27] MEDS: Insulin Aspart 300 UNITS/3 ML PEN SC ×4 (00:43→22:06)
[2024-12-27] MEDS: Insulin Glargine 300 UNITS/3 ML PEN 20 UNITS SC ×2 (00:44→22:06)
[2024-12-27] MEDS: Normal Saline Flush 10 ML SYR IVP ×2 (00:45→04:03)
[2024-12-27] MEDS: CEFEPIME 1 GM in Normal Saline 50 ML IVPB ×2 (00:47→09:07)
[2024-12-27] MEDS: LINEZOLID 600 MG/300 ML BAG 300 MG IVPB (04:01)
[2024-12-27 07:47] VITALS: BP 116/68; PULSE 71; RESP 20; TEMP 36.6; O2SAT 93
[2024-12-27] MEDS: Divalproex 500 MG TABEC PO (09:06)
[2024-12-27] MEDS: ARIPiprazole 5 MG TAB 10 MG PO (09:06)
[2024-12-27] MEDS: Aspirin E.C. 81 MG TABEC PO (09:06)
[2024-12-27] MEDS: Docusate Sodium 100 MG CAP PO (09:07)
[2024-12-27] MEDS: levETIRAcetam 250 MG TAB PO (09:07)
[2024-12-27] MEDS: Carvedilol 12.5 MG TAB 6.25 MG PO (09:07)
[2024-12-27] MEDS: Enoxaparin 40 MG/0.4 ML SYR SC (09:07)
[2024-12-27] MEDS: Gabapentin 100 MG CAP PO (09:07)
[2024-12-27] MEDS: Pantoprazole 40 MG TABCR PO (09:07)
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
[2024-12-27 15:09] VITALS: BP 144/55; PULSE 68; RESP 18; TEMP 36.4; O2SAT 96
[2024-12-27] MEDS: fentaNYL 100 MCG PATCH TD (16:24)
[2024-12-28 07:44] VITALS: BP 156/77; PULSE 60; RESP 17; TEMP 37.1; O2SAT 93
[2024-12-28] MEDS: Gabapentin 100 MG CAP PO ×2 (08:52→08:53)
[2024-12-28] MEDS: Divalproex 500 MG TABEC PO (08:52)
[2024-12-28] MEDS: Pantoprazole 40 MG TABCR PO (08:52)
[2024-12-28] MEDS: ARIPiprazole 5 MG TAB 10 MG PO (08:52)
[2024-12-28] MEDS: Aspirin E.C. 81 MG TABEC PO (08:53)
[2024-12-28] MEDS: levETIRAcetam 250 MG TAB PO (08:53)
[2024-12-28] MEDS: Carvedilol 12.5 MG TAB 6.25 MG PO (08:53)
[2024-12-28] MEDS: Docusate Sodium 100 MG CAP PO (08:53)
--- NOTE | 2024-12-28 09:06 | PDOC.CMDIS ---
Date of service: 12/28/24 Time of Service: 09:06 LACE Index Scoring Tool Questions: Length of Stay (in days): 4 - 6 Was the patient admitted via the E.D.?: Yes Comorbidities: Cerebrovascular Disease and Diabetes w/o Complication E.D. Visits: 1 Answers: Total Score: 10 Risk of Readmission: High Risk Care Management Discharge Plan Reason for Hospitalization: pneumonia Discharge Plan: Ed will be discharged this afternoon to his son, Stephen's home. Susie is Ed's paid caregiver. Ed will continue with his HH services, f/u with his PCP and continue per his plan of care. Ed will transport home via EMS as coordinated by CM. Patient/Family Education Needs: Review of discharge instructions, activity, limitations and discuss ask me 3. SDOH Health Related Social Needs: No Data to Display
--- NOTE | 2024-12-28 12:04 | PDOC.HHF2F ---
Home Health Referral Home Health Orders Clinical synopsis of why skilled professionals are needed: CAP, HTN, CVA, type II diabetes Registered Nurse: Check all that apply Instruct on new or changed medication(s)/assess compliance: Ordered Other: indwelling michel care Physical Therapist: Check all that apply Increase strength & endurance for safe mobility at home: Ordered To design/establish home maintenance program: Ordered Fall reduction therapy program for patient with history of frequent falls: Ordered Home safety evaluation and teaching/gait training including stair management (if applicable): Ordered Occupational Therapist: Evaluate and treat for patient unable to perform ADL/IADL/self-care: Ordered Speech Therapist: Check all that apply For swallow evaluation/therapy due to dysphagia: Ordered Speech/communication disorders: Ordered Cost Recovery Technician: Assist with community resources: Ordered Assist with intermodal owner operator 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 care planning: Ordered Encounter Date and Reason: I certify that a FTF encounter for this patient was performed on December 28, 2024 and that such encounter was related to the primary reason the patient requires home health services. The encounter was conducted in the following manner: By me as the certifying physician, TRACTOR SWEEPER DRIVER, PA or By an inpatient physician, TRACTOR SWEEPER DRIVER or PA during an inpatient stay who communicated findings to me, Certification And Authentication I certify that I composed the above information based on my clinical judgment relating to this patient's medical condition and, if applicable, clinical findings communicated to me by the NPP or inpatient physician who performed the FTF encounter. Name of Provider that will be monitoring home health services: Galen Rivera
== END 2024-12-28 13:05 | disposition home health service (06) | DRG 178 ==
LOC: ER 18:29 → MS 21:25
PROVIDERS: Hospitalist; Nurse Practitioner Family; Admitting Provider General Practice; Emergency Provider Student in an Organized Health Care Education/Training Program; PCP Nurse Practitioner Family; Visit Provider General Practice
DX: J69.0 Pneumonitis due to inhalation of food and vomit (principal); I69.351 Hemiplegia and hemiparesis following cerebral infarction affecting right dominant side; N13.8 Other obstructive and reflux uropathy; L97.528 Non-pressure chronic ulcer of other part of left foot with other specified severity; E11.42 Type 2 diabetes mellitus with diabetic polyneuropathy; I10 Essential (primary) hypertension; E78.2 Mixed hyperlipidemia; Z79.4 Long term (current) use of insulin; D35.01 Benign neoplasm of right adrenal gland; N40.1 Benign prostatic hyperplasia with lower urinary tract symptoms; I69.391 Dysphagia following cerebral infarction; R13.10 Dysphagia, unspecified; F19.11 Other psychoactive substance abuse, in remission; E11.65 Type 2 diabetes mellitus with hyperglycemia; E78.5 Hyperlipidemia, unspecified; G89.29 Other chronic pain; J45.909 Unspecified asthma, uncomplicated; F41.1 Generalized anxiety disorder; R91.1 Solitary pulmonary nodule; Z89.411 Acquired absence of right great toe; F17.290 Nicotine dependence, other tobacco product, uncomplicated; Z66 Do not resuscitate; I69.320 Aphasia following cerebral infarction; E03.9 Hypothyroidism, unspecified; G40.909 Epilepsy, unspecified, not intractable, without status epilepticus
CPT/HCPCS: 00123; 36415; 71275; 80053; 82805; 82947; 84145; 85652; 86141; 87040; 87449; 87637; 87641; 93005; 94640; 94761; 96365; 96368; 99285; J1650; 71046; 81003; 81015; 83605; 83735; 83880; 84443; 84484; 85025; 85379; 93010; 99222; 99232; 99233; 99239; J0456; J0692; J1815; J2020; J3490; J7620

== ENCOUNTER 2025-01-28 09:35 | Inpatient (IN) | payer MEDICARE, MEDICAID, SELFPAY ==
[2025-01-28] VITALS (72 sets, daily range): BP systolic 127–228; BP diastolic 39–160; PULSE 59–128; RESP 9–25; TEMP 36.6–36.7; O2SAT 93–100
--- NOTE | 2025-01-28 09:30 | RT.EKG_ITS ---
APPROVED REPORT Exam: Resting ECG Reason for Exam: sob Patient Location: E HR:119 bpm ECG Measurements Heart Rate 119 AXIS NC 144 P 83 QRSd 88 QRS 262 QT 337 T 35 QTc 473 Conclusion Sinus tachycardia...rate> 99 Markedly posterior QRS axis...late V-lead transition Consider anterior infarct...Q >30mS in V2-V5 Physician: No stemi
--- NOTE | 2025-01-28 09:30 | DI.RAD_ITS ---
Exam(s) XR PORTABLE CHEST AP EXAM: XR PORTABLE CHEST AP CLINICAL HISTORY: SOB, cough, hypoxic. TECHNIQUE: 2D digital imaging was performed. COMPARISON: CR XR CHEST 2V PA LATERAL from 12/23/[address] CHEST PE CTA from 12/23/2024 FINDINGS: Single AP portable view. Heart size is normal. The mediastinum is not widened. There appears to been some improvement in the large amount of infiltrate in the right lower lobe and right upper lobe although there is still significant amount of infiltrate in the right lung at these areas evident. Slight blunting of right costophrenic angle probably indicates pleural fluid and ther e was indeed pleural fluid on the right side seen on the recent CT scan. There is some mild persiste nt infiltrate in the left lower lobe. IMPRESSION: Persistent bilateral infiltrates although there does appear to be some mild improvement when compared to 12/23/2024. DATA REPOSITORY: RADIATION DOSE DELIVERED:
[2025-01-28 11:12] LABS: Abs Immature Grans 0.08 10^3/uL (0.0-0.06); BE (Venous) 9 mmol/L (-2-3); Basophils % 0.6 %; Eosinophils % 0.2 %; HCO3 (Venous) 33 mmol/L (23-28); HCT 38.4 % (40.0-50.0); HGB 12.1 g/dL (13.5-17.5); Immature Grans % 0.5 %; Lactate 1.5 mmol/L (<or=2.0); Lymphocytes % 6.1 %; MCHC 31.5 % (32.0-36.0); MCV 95 fL (80-95); Monocytes % 4.5 %; Neutrophils % 88.1 %; O2 Sat (Venous) 50 %; Platelet Count 325 10^3/uL (130-400); RBC 4.04 10^6/uL (4.36-5.78); RDW 14.9 % (11.8-14.1); RDW-SD 52.7 fL; TCO2 (Venous) 31 mmol/L (24-29); WBC 16.34 10^3/uL (4.4-10.8); pCO2 (Venous) 51 mmHg (41-51); pH (Venous) 7.42 (7.31-7.41); pO2 (Venous) 28 mmHg
[2025-01-28 11:13] LABS: Absolute Eosinophil Count 0.03 10^3/uL (0.0-0.7); Absolute Monocyte Count 0.74 10^3/uL (0.1-0.8)
[2025-01-28 11:26] LABS: INR 1.3 (0.9-1.1); PTT Activated 28.1 sec (20.6-30.2); Prothrombin Time 12.8 sec (9.1-11.1)
[2025-01-28 11:35] LABS: ALT 8 U/L (16-63); AST 28 U/L (15-37); Albumin 1.5 g/dL (3.4-5.0); Alkaline Phosphatase 102 U/L (46-116); Anion Gap 1.7 mmol/L (3-11); BUN 26 mg/dL (7-18); Bilirubin, Total 0.58 mg/dL (0.2-1.0); CO2 33.3 mmol/L (21.0-32.0); CREATININE 0.9 mg/dL (0.70-1.30); Calcium 8.1 mg/dL (8.5-10.1); Chloride 113 mmol/L (98-107); Estimated GFR 90.74 (mL/min/1.73m2); Glucose 175 mg/dL (74-106); Potassium 3.9 mmol/L (3.5-5.1); Sodium 148 mmol/L (136-145); Total Protein 6.9 g/dL (6.4-8.2)
[2025-01-28 11:41] LABS: NT-proBNP 1374 pg/mL (<300); Troponin I 29 ng/L (<or=76)
--- NOTE | 2025-01-28 11:50 | W.ED.GENAD ---
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 participate in: none Frequency: does not exercise Richa/Latter Day: None Special richa needs: No Seatbelt use: always Helmet use: No Drive intox 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
[2025-01-28] MEDS: levoFLOXacin 750 MG/150 ML BAG 100 MG IVPB (12:18)
[2025-01-28 12:28] LABS: Troponin I 32 ng/L (<or=76)
[2025-01-28] MEDS: Normal Saline 1,000 ML 1000 ML IV (12:34)
[2025-01-28 12:42] LABS: D-Dimer 1276 ng/mlFEU (<500)
--- NOTE | 2025-01-28 12:45 | DI.CT_ITS ---
Exam(s) CT CHEST PE CTA EXAM: CT CHEST PE CTA CLINICAL HISTORY: sob, chest pain, pneumonia. TECHNIQUE: Imaging Protocol: Axial CT angiography was performed with multi-slice acquisition and mu lti-planar reconstructions as well as axial, coronal and sagittal MIP reconstructions. Computer aided detection (CAD) was utilized. CONTRAST MATERIAL: Intravenous: Omnipaque 350 Contrast volume:70 ml COMPARISON: CR XR CHEST 2V PA LATERAL from 12/23/[address] CHEST PE CTA from 12/23/2024 CR XR PORTABLE CHEST AP from 01/28/2025 FINDINGS: Exam is limited by patient arm position. Pulmonary Arteries: No evidence of filling defect to suggest pulmonary emboli. Mediastinum and Shaila: No dominant adenopathy or fluid collection. Pulmonary parenchyma: Mild interval improvement previously noted bilateral lower lobe infiltrates, ri ght worse than left. Mild right upper lobe infiltrate is also present. Underlying emphysematous thurman es. Tracheobronchial tree: Debris in the right lower lobe main bronchus extending into branches of the ri ght lower lobe, worsening from prior. Pleura: Small left and moderate right pleural effusion, mildly increased compared to prior. No pneumo thorax. Heart: The heart is not dilated. Mild coronary artery calcifications are seen. Aorta: Thoracic aorta non-dilated. No dissection. Upper abdomen: Stable findings. Bones: Stable mild compression fractures. Tubes, Catheters, and Lines: None Soft tissues: Unremarkable. IMPRESSION: No evidence of pulmonary embolism. Some improvement in the bilateral pneumonia compared to prior exam. Worsening of mucous plugging to t he right lower lobe. Mild worsening of pleural effusions. RADIATION DOSE DELIVERED: Total DLP DATA REPOSITORY: All CT scans at this facility are submitted to the National Radiology Data Registry (NRDR) Dose Index Registry (DIR) with the [employer] (ACR). RADIATION OPTIMIZATION: All CT scans at this facility use at least one of these dose optimization te chniques: automated exposure control; mA and/or kV adjustment per patient size (includes targeted exa ms where dose is matched to clinical indication); or iterative reconstruction.
[2025-01-28] MEDS: Omnipaque 350 MG/ML 100 ML BTL IJ (13:38)
[2025-01-28] MEDS: Normal Saline - Diluent 50 ML VIAL IJ (13:40)
[2025-01-28] MEDS: fentaNYL 100 MCG/2 ML VIAL IVP (14:01)
[2025-01-28] MEDS: Calcium Gluconate 4.65 MEQ/10 ML VIAL 4.65 MG IVP (14:01)
[2025-01-28] MEDS: VANCOMYCIN/WATER (PEG) 1.75 GM/350 ML BAG IVPB (14:40)
[2025-01-28 15:11] LABS: Troponin I 30 ng/L (<or=76)
[2025-01-28] MEDS: Normal Saline 50 ML 100 ML (15:14)
[2025-01-28] MEDS: fentaNYL 100 MCG PATCH TD (16:12)
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
--- NOTE | 2025-01-28 17:04 | NUR.NOTE ---
Nursing Note:nurse into room to reassess pt. pt now able to verbalize his needs, speech is delayed, slurred, garbled, which is per pt baseline per his son. he is able to use call light appropraitely. pt reorted feeling thirsy and hungry. MD advised safe for pt to eat and drink. pt independently drank 8 oz of water and food ordered from menu. pt incontinent per baseline. pt changed, cleansed, mepilex to sacrum replaced, mepilex to right hip placed, mepilex to bilateral feet replaced. MD at bedside to assess wounds. pt tolerated drinking well. pt tolerated changing well. pt tolerated dressing changes well. ~ 45 min spent at bedside.
[2025-01-28] MEDS: AZTREONAM 2,000 MG in Normal Saline 100 ML 200 MG IVPB (17:15)
--- NOTE | 2025-01-28 18:15 | W.PC.ACHO ---
Registration Status: Primary Language: Preferred Language: ED Information & Data Chief Complaint RespSymp 01/28/25 11:51 Triage Note sent by HH with concern for 01/28/25 09:37 pneumonia. lethargic and weak. not eating. tachy, low O2 sats - improved with oxygen. rhonchi n right. bed sore right buttocks. Medical / Surgical History (Last Reviewed 12/23/24 @ 18:35 by Dwayne Johnson MD) Pneumonia Acute cerebrovascular accident (CVA) Fever Hospital discharge follow-up Unwitnessed fall Septic shock Pneumonia, aspiration Hypotension Bilateral pneumonia Acute hypoxic respiratory failure Failure to thrive in adult UTI (urinary tract infection) CO2 narcosis Medical neglect of elder by caregiver Encounter for assessment of healthcare decision-making capacity Plantar ulcer of left foot Palliative care patient Osteomyelitis due to type 2 diabetes mellitus Cellulitis Foot infection Osteomyelitis of toe of right foot MRSA bacteremia Osteomyelitis of second toe of left foot 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 Coughing Pain and swelling of left forearm Nausea Decrease in appetite Rales 1/4 way up posterior chest wall on left side BPH with urinary obstruction Discharge planning issues Encounter for long-term methadone use for opiate dependence Palliative care encounter Bladder stones Acute kidney injury Cellulitis of foot, right Diabetic infection of right foot Osteomyelitis of second toe of right foot History of back pain Hepatitis C Disorder of tendon of right hand Hyperglycemia Anxiety Toe osteomyelitis, right (Last Reviewed 12/23/24 @ 18:35 by Dwayne Johnson MD) History of liver biopsy (~01/2001) History of appendectomy History of inguinal hernia repair History of amputation of great toe Status post amputation of toe Most Recent Vital Signs Temperature 36.6 C 01/28/25 11:08 Pulse 103 H 01/28/25 17:40 Pulse 117 H 01/28/25 18:10 Respiratory Rate 15 01/28/25 18:10 Respiratory Effort Normal 01/28/25 11:08 Respiratory Depth Normal 01/28/25 11:08 Blood Pressure 210/80 H 01/28/25 16:45 Blood Pressure Mean 130 01/28/25 16:45 Pulse Oximetry 97 01/28/25 17:40 Oxygen Delivery Method Nasal Cannula 01/28/25 11:08 Oxygen Flow Rate 4 01/28/25 11:08 Pain Level 0 01/28/25 18:13 Allergies Penicillins Allergy (Unknown, Verified 12/23/24 14:08) Unknown codeine Adverse Reaction (Verified 06/16/23 18:04) itching and bloutchy pentazocine lactate (From [facility]) Adverse Reaction (Verified 12/23/24 14:07) makes me deathly ill Active Medications Generic Name Dose Route Start Last Admin Trade Name Cosme PRN Reason Stop Dose Admin Aztreonam 2,000 mg/ Sodium 100 mls @ 200 mls/hr 01/28/25 12:00 01/28/25 18:12 Chloride IVPB Infused NOW JODI Infusion Iohexol 100 ml 01/28/25 13:45 01/28/25 13:38 Omnipaque 350 Mg/Ml 100 Ml Btl IJ 02/27/25 23:59 70 ml DIRECTED JODI Administration Sodium Chloride 50 ml 01/28/25 13:45 01/28/25 13:40 Normal Saline - Diluent 50 Ml Vial IJ 50 ml .FOR DI USE JODI Administration IV IV Catheter Type [Right Wrist] Saline Lock IV Catheter Type [Left Saline Lock Antecubital] IV Catheter Gauge [Right Wrist 20 ] IV Catheter Gauge [Left 18 Antecubital] Diagnostics 01/28/25 01/28/25 01/28/25 Range/Units 14:43 11:57 11:05 WBC 16.34 H (4.4-10.8) 10^3/uL RBC 4.04 L (4.36-5.78) 10^6/uL Hgb 12.1 L (13.5-17.5) g/dL Hct 38.4 L (40.0-50.0) % MCV 95 (80-95) fL MCH 30.0 (27.0-33.0) pg MCHC 31.5 L (32.0-36.0) % RDW 14.9 H (11.8-14.1) % Plt Count 325 (130-400) 10^3/uL MPV 10.0 (8.0-11.0) fL Immature Gran % 0.5 % Neutrophils % 88.1 % Lymphocytes % 6.1 % Monocytes % 4.5 % Eosinophils % 0.2 % Basophils % 0.6 % Nucleated RBC % 0.0 (0.0-0.3) % Absolute Neutrophils 14.40 H (1.2-6.7) 10^3/uL Absolute Lymphocytes 1.00 L (1.2-3.4) 10^3/uL Absolute Monocytes 0.74 (0.1-0.8) 10^3/uL Absolute Eosinophils 0.03 (0.0-0.7) 10^3/uL Absolute Basophils 0.10 (0.0-0.2) 10^3/uL PT 12.8 H (9.1-11.1) sec INR 1.3 H (0.9-1.1) APTT 28.1 (20.6-30.2) sec D-Dimer 1276 H (<500) ng/mlFEU VBG pH 7.42 H (7.31-7.41) VBG pCO2 51 (41-51) mmHg VBG pO2 28 mmHg VBG HCO3 33 H (23-28) mmol/L VBG Total CO2 31 H (24-29) mmol/L VBG O2 Saturation 50 % VBG Base Excess 9 H (-2-3) mmol/L VBG Lactate 1.5 (<or=2.0) mmol/L Sodium 148 H (136-145) mmol/L Potassium 3.9 (3.5-5.1) mmol/L Chloride 113 H (98-107) mmol/L Carbon Dioxide 33.3 H (21.0-32.0) mmol/L Anion Gap 1.7 L (3-11) mmol/L BUN 26 H (7-18) mg/dL Creatinine 0.9 (0.70-1.30) mg/dL Est GFR (CKD-EPI 2020) 90.74 (mL/min/1.73m2) Glucose 175 H (74-106) mg/dL Calcium 8.1 L (8.5-10.1) mg/dL Total Bilirubin 0.58 (0.2-1.0) mg/dL AST 28 (15-37) U/L ALT 8 L (16-63) U/L Alkaline Phosphatase 102 (46-116) U/L Troponin I 30 32 29 (<or=76) ng/L NT-Pro-B Natriuret Pep 1374 H (<300) pg/mL Total Protein 6.9 (6.4-8.2) g/dL Albumin 1.5 L (3.4-5.0) g/dL COVID-19 Source SARS-CoV-2 (PCR) Influenza Type A (PCR) Influenza Type B (PCR) RSV (PCR) 01/28/25 Range/Units 09:40 WBC (4.4-10.8) 10^3/uL RBC (4.36-5.78) 10^6/uL Hgb (13.5-17.5) g/dL Hct (40.0-50.0) % MCV (80-95) fL MCH (27.0-33.0) pg MCHC (32.0-36.0) % RDW (11.8-14.1) % Plt Count (130-400) 10^3/uL MPV (8.0-11.0) fL Immature Gran % % Neutrophils % % Lymphocytes % % Monocytes % % Eosinophils % % Basophils % % Nucleated RBC % (0.0-0.3) % Absolute Neutrophils (1.2-6.7) 10^3/uL Absolute Lymphocytes (1.2-3.4) 10^3/uL Absolute Monocytes (0.1-0.8) 10^3/uL Absolute Eosinophils (0.0-0.7) 10^3/uL Absolute Basophils (0.0-0.2) 10^3/uL PT (9.1-11.1) sec INR (0.9-1.1) APTT (20.6-30.2) sec D-Dimer (<500) ng/mlFEU VBG pH (7.31-7.41) VBG pCO2 (41-51) mmHg VBG pO2 mmHg VBG HCO3 (23-28) mmol/L VBG Total CO2 (24-29) mmol/L VBG O2 Saturation % VBG Base Excess (-2-3) mmol/L VBG Lactate (<or=2.0) mmol/L Sodium (136-145) mmol/L Potassium (3.5-5.1) mmol/L Chloride (98-107) mmol/L Carbon Dioxide (21.0-32.0) mmol/L Anion Gap (3-11) mmol/L BUN (7-18) mg/dL Creatinine (0.70-1.30) mg/dL Est GFR (CKD-EPI 2020) (mL/min/1.73m2) Glucose (74-106) mg/dL Calcium (8.5-10.1) mg/dL Total Bilirubin (0.2-1.0) mg/dL AST (15-37) U/L ALT (16-63) U/L Alkaline Phosphatase (46-116) U/L Troponin I (<or=76) ng/L NT-Pro-B Natriuret Pep (<300) pg/mL Total Protein (6.4-8.2) g/dL Albumin (3.4-5.0) g/dL COVID-19 Source Pending SARS-CoV-2 (PCR) Pending Influenza Type A (PCR) Pending Influenza Type B (PCR) Pending RSV (PCR) Pending 01/28/25 11:05 Blood Culture - Pending Blood 01/28/25 11:05 Blood Culture - Pending Blood Intake and Output - 24 Hour Total 01/28/25 09:25 thru 01/28/25 18:13 Intake Total 1600 Balance 1600 Weight 68 kg Intake: IV 1600 Falls Risk Assessment History of Falls Previous History 01/28/25 11:08 Contributing Factors Confusion,Unstable, 01/28/25 11:08 Impairments,Incontinence, Medications Ambulatory Aids Uses ambulatory device + 01/28/25 11:08 Tubes/Lines None 01/28/25 11:08 Gait Evaluation W/any additional score 01/28/25 11:08 Cognition No cognitive impairment 01/28/25 11:08 Fall Total Score 80 01/28/25 11:08 Level of Risk Maximum Risk 01/28/25 11:08 Problems (Last Reviewed 12/23/24 @ 18:35 by Dwayne Johnson MD) Hypoxic respiratory failure (Acute) Pressure injury (Acute) On deep vein thrombosis (DVT) prophylaxis (Acute) Sepsis (Acute) Aphasia (Acute) Notes 01/28/25 17:04 Nursing Notes by Pam Silverman Nursing Note:nurse into room to reassess pt. pt now able to verbalize his needs, speech is delayed, slurred, garbled, which is per pt baseline per his son. he is able to use call light appropraitely. pt reorted feeling thirsy and hungry. advised safe for pt to eat and drink. pt independently drank 8 oz of water and food ordered from menu. pt incontinent per baseline. pt changed, cleansed, mepilex to sacrum replaced, mepilex to right hip placed, mepilex to bilateral feet replaced. MD at bedside to assess wounds. pt tolerated drinking well. pt tolerated changing well. pt tolerated dressing changes well. ~ 45 min spent at bedside. Initialized on 01/28/25 17:04 - END OF NOTE v v v v v v v v v Sending and/or Receiving Nurses: Please use comment section below to note any information pertinent to the patient hand-off not included above. Information / Comments: Report received from: Karma PILLAI at [phone]
--- NOTE | 2025-01-28 19:11 | NUR.NOTE ---
patient received from ED, report from Maria A PILLAI. Patient alert, orientation difficult to assess due to limited verbal responses. R side hemiplegia from prior stroke. Repositioned in bed, pt wanted to be on R side, wounds with mepilex placed in ER on R hip and coccyx. Pt stable on RA, HTN and tachycardia noted on vitals, pt reported pain. Repositioned and reported improvement in pain, pharmacy still loading prn morphine, unable to medicate at this time. Condom cath placed to patient, elizabeth care and new brief placed. Bed low/locked, call flynn in hand, oriented to room and staff, reports he is comfortable. Bed alarm on. Nursing Note:
[2025-01-28] MEDS: LORazepam 1 MG TAB PO (20:23)
[2025-01-28] MEDS: MORPHine IR 15 MG TAB 7.5 MG PO (20:23)
[2025-01-28] MEDS: Pantoprazole 40 MG TABCR PO (20:23)
[2025-01-28] MEDS: Atorvastatin 40 MG TAB 80 MG PO (20:23)
[2025-01-28] MEDS: Gabapentin 100 MG CAP PO (20:23)
[2025-01-28] MEDS: Acetaminophen 325 MG TAB 650 MG PO (20:23)
[2025-01-28] MEDS: Enoxaparin 40 MG/0.4 ML SYR SC (20:24)
[2025-01-28] MEDS: guaiFENesin 600 MG TABCR PO (20:24)
[2025-01-28] MEDS: Normal Saline Flush 10 ML SYR IVP (20:24)
[2025-01-28] MEDS: Insulin Aspart 300 UNITS/3 ML PEN SC (21:00)
[2025-01-28] MEDS: Insulin Glargine 300 UNITS/3 ML PEN 20 UNITS SC (21:01)
[2025-01-28 23:27] LABS: COVID-19 PCR Negative (Negative); Influenza A PCR Negative (Negative); Influenza B PCR Negative (Negative); RSV PCR Negative (Negative)
[2025-01-28 23:31] LABS: Source Nasopharynx
[2025-01-29] MEDS: AZTREONAM 2,000 MG in Normal Saline 100 ML 200 MG IVPB ×3 (04:48→20:04)
[2025-01-29] MEDS: VANCOMYCIN 750 MG in Normal Saline 250 ML 166.667 MG IVPB (05:30)
[2025-01-29 06:52] LABS: Abs Immature Grans 0.04 10^3/uL (0.0-0.06); Absolute Basophil Count 0.04 10^3/uL (0.0-0.2); Absolute Eosinophil Count 0.21 10^3/uL (0.0-0.7); Absolute Lymphocyte Count 1.56 10^3/uL (1.2-3.4); Absolute Monocyte Count 0.65 10^3/uL (0.1-0.8); Absolute Neutrophil Count 5.47 10^3/uL (1.2-6.7); Basophils % 0.5 %; Eosinophils % 2.6 %; HCT 29.3 % (40.0-50.0); HGB 9.2 g/dL (13.5-17.5); Immature Grans % 0.5 %; Lymphocytes % 19.6 %; MCH 29.4 pg (27.0-33.0); MCHC 31.4 % (32.0-36.0); MCV 94 fL (80-95); MPV 10.2 fL (8.0-11.0); Monocytes % 8.2 %; Neutrophils % 68.6 %; Platelet Count 270 10^3/uL (130-400); RBC 3.13 10^6/uL (4.36-5.78); RDW 14.6 % (11.8-14.1); WBC 7.97 10^3/uL (4.4-10.8)
[2025-01-29 07:09] LABS: Anion Gap 1.8 mmol/L (3-11); BUN 26 mg/dL (7-18); CO2 32.2 mmol/L (21.0-32.0); CREATININE 0.7 mg/dL (0.70-1.30); Calcium 8.1 mg/dL (8.5-10.1); Chloride 114 mmol/L (98-107); Glucose 101 mg/dL (74-106); Magnesium 1.7 mg/dL; Potassium 3.4 mmol/L (3.5-5.1); Sodium 148 mmol/L (136-145); Vancomycin, Random 26.6 ug/mL
[2025-01-29 07:44] VITALS: BP 181/71; PULSE 84; RESP 16; TEMP 36.7; O2SAT 98
[2025-01-29 08:51] VITALS: RESP 9; O2SAT 94
[2025-01-29] MEDS: ARIPiprazole 5 MG TAB 10 MG PO (09:16)
[2025-01-29] MEDS: guaiFENesin 600 MG TABCR PO ×2 (09:16→20:03)
[2025-01-29] MEDS: Carvedilol 12.5 MG TAB 6.25 MG PO (09:16)
[2025-01-29] MEDS: Pantoprazole 40 MG TABCR PO ×2 (09:16→20:03)
[2025-01-29] MEDS: levETIRAcetam Oral Solution 100 MG/ML 250 MG PO ×2 (09:17→20:05)
[2025-01-29] MEDS: LORazepam 1 MG TAB PO ×2 (09:17→16:08)
[2025-01-29] MEDS: Normal Saline Flush 10 ML SYR IVP ×2 (09:18→20:05)
[2025-01-29] MEDS: Gabapentin 100 MG CAP PO ×3 (09:18→20:04)
[2025-01-29] MEDS: MORPHine IR 15 MG TAB 7.5 MG PO (09:41)
[2025-01-29] MEDS: Aspirin E.C. 81 MG TABEC PO (09:42)
[2025-01-29 11:53] LABS: MRSA PCR Positive (Negative)
[2025-01-29 12:45] LABS: Vancomycin, Random 16.6 ug/mL
[2025-01-29 12:51] VITALS: BP 127/49; PULSE 83; RESP 16; TEMP 36.7; O2SAT 94
[2025-01-29] MEDS: levoFLOXacin 750 MG/150 ML BAG 100 MG IVPB (13:09)
[2025-01-29] MEDS: Insulin Aspart 300 UNITS/3 ML PEN SC ×2 (13:14→17:03)
[2025-01-29 13:19] VITALS: O2SAT 94
[2025-01-29] MEDS: Potassium Chloride 20 MEQ TABCR PO ×2 (14:11→17:03)
--- NOTE | 2025-01-29 14:12 | DM INPTCON_ITS ---
Date of service: 01/29/25 Time of Service: 14:12 Diabetes Inpatient Consult Reason for Visit: received request for consult re: diabetes mgt/education DESCRIPTION/ASSESSMENT: Pt is 74yo male known to me from previous admissions. Ed's weight is down about 7kg since last year. reported po intake of ~25% of breakfast and 100% of lunch Pt is receiving glucose control boost at meals from kitchen as easy source of kcals and protein. Originally ordered for heart healthy diet with soft and bite size consistency for solids and thin liquids - I modified this and made his diet order consistent CHO diet and puree consistency with thin liquids as this was last recommendation from speech therapy and what he received last admission. Pt ordered for 20 units lantus HS and sensitive sliding scale novolog TID at meals for correction. Fasting glucose this morning was 101 with 157 at breafast. A1c was 7.3% last september, but has been erratic over the last 10 years. INTERVENTION: changed diet order and consistency as stated above due to hx of aspiration risk as well as lack of dentition. Will provide [employer] food supplement for assistance for wound healing - will provide at 2pm nourishment. With mucus plugging of bronchi would consider N-Acetyl Cystein (NAC) to help thin mucus but could also cause bronchospasm in people with asthma if inhaled or taken po. PLAN: will monitor toleration of diet consistency, po intake, glucose and nutrition- related labs, weight Time Spent in Nutritional Counseling and Treatment: 0
--- NOTE | 2025-01-29 15:07 | W.PM.PROGNOT ---
Date of Service Date of service: 01/29/25 Time of Service: 15:07 Assessment and Plan Assessment and plan (1) Sepsis: Status: Resolved Assessment and plan: stable (2) Pneumonia: Assessment and plan: Will continue vancomycin, aztreonam and levofloxacin day 2 Hx of MRSA on Vancomycin for pneumonia - MRSA PCR positive Mucinex, nebs Blood Cx pending (3) Hypoxic respiratory failure: Status: Acute Assessment and plan: Not usually on home O2 brought by EMS with hypoxia with oxygen requirement at 3 L by nasal cannula?in the setting of pneumonia will wean O2 as started for sat 92% (4) Aphasia: Status: Acute Assessment and plan: Ongoing d/t past CVA (5) On deep vein thrombosis (DVT) prophylaxis: Status: Acute Assessment and plan: On lovenox (6) Pressure injury: Status: Acute Assessment and plan: Wound consult pending (7) Diabetes: Assessment and plan: POC blood sugar AC and HS ,insulin bolus and SSI (8) Hypertension: Status: Chronic Assessment and plan: Continue Coreg home dose with routine monitoring, adjust meds as needed. (9) Adrenal mass: Status: Acute Assessment and plan: Seen on previous imaging-OPT f/u (10) Discharge planning issues: Assessment and plan: CM to f/u Home health resumption VS new services Discussed with Dr. Jean Subjective Subjective Patient reports: no new complaints and afebrile; denies shortness of breath Interval history since last seen: resistive to care, refusing assessments and repositioning Exam Narrative Exam Narrative: Frail older than stated age chronically ill-appearing male in no acute distress, ,awake, alert nods appropriately to questions Head is atraumatic Respirations are even and unlabored Cardiovascular regular rate and rhythm well-perfused Abdomen no guarding soft michel with concentrated cloudy urine Extremities are without edema Oral mucosa slightly dry neck with no JVD full range of motion Eyes nonicteric noninjected Skin with multiple pressure areas please see nursing wound assessment for description and sites. Objective Last Vital Signs Temp 36.7 C 01/29/25 12:51 Pulse 83 01/29/25 12:51 Resp 16 01/29/25 12:51 BP 127/49 L 01/29/25 12:51 Pulse Ox 94 01/29/25 13:19 Laboratory Results - last 24 hr 01/28/25 01/28/25 01/29/25 14:43 22:44 06:30 WBC 7.97 RBC 3.13 L Hgb 9.2 L D Hct 29.3 L MCV 94 MCH 29.4 MCHC 31.4 L RDW 14.6 H Plt Count 270 MPV 10.2 Immature Gran % 0.5 Neutrophils % 68.6 Lymphocytes % 19.6 Monocytes % 8.2 Eosinophils % 2.6 Basophils % 0.5 Nucleated RBC % 0.0 Absolute Neutrophils 5.47 Absolute Lymphocytes 1.56 Absolute Monocytes 0.65 Absolute Eosinophils 0.21 Absolute Basophils 0.04 Sodium 148 H Potassium 3.4 L Chloride 114 H Carbon Dioxide 32.2 H Anion Gap 1.8 L BUN 26 H Creatinine 0.7 Est GFR (CKD-EPI 2020) 97.90 Glucose 101 Calcium 8.1 L Magnesium 1.7 Troponin I 30 Random Vancomycin 26.6 COVID-19 Source Nasopharynx SARS-CoV-2 (PCR) Negative Influenza Type A (PCR) Negative Influenza Type B (PCR) Negative RSV (PCR) Negative MRSA (TEM-PCR) 01/29/25 01/29/25 10:18 12:15 WBC RBC Hgb Hct MCV MCH MCHC RDW Plt Count MPV Immature Gran % Neutrophils % Lymphocytes % Monocytes % Eosinophils % Basophils % Nucleated RBC % Absolute Neutrophils Absolute Lymphocytes Absolute Monocytes Absolute Eosinophils Absolute Basophils Sodium Potassium Chloride Carbon Dioxide Anion Gap BUN Creatinine Est GFR (CKD-EPI 2020) Glucose Calcium Magnesium Troponin I Random Vancomycin 16.6 COVID-19 Source SARS-CoV-2 (PCR) Influenza Type A (PCR) Influenza Type B (PCR) RSV (PCR) MRSA (TEM-PCR) Positive A Time Spent with Patient Time Spent with Patient: 35-49 minutes Time was spent: preparing to see the patient(eg.review tests), obtaining and/or reviewing separately otained hiistory, ordering medications,tests, procedures, indepentently interpreting results and counseling the patient
--- NOTE | 2025-01-29 15:20 | INITIAL_ITS ---
Date of service: 01/29/25 Time of Service: 15:20 Care Management Initial Assmt Initial Assessment Reason for Hospitalization: sepsis, pneumonia Functional Status/Living Situation Patient Presentation: Ed was busy with nursing when CM attempted to meet with him. Nursing expressed some concern about the care he is receiving at home due to multiple wounds on his body. CM contacted , who stated that he has HH RN, but that he is resistant to care with both and his son, Susei, who is his caregiver. They reported that he is angry and combative when there are any attempts to care for the wounds on his buttocks. He does allow some care for his heel wounds. CM asked for a palliative consult to discuss goals of care; feels that he may qualify for hospice. Ed lives in [place] with his son, Susie, who is his primary caregiver. Once medically cleared, he will return home with a resumption of RN and caregiver support. CM will continue to follow. 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/Guardian: son, Susie, is his primary caregiver Employment Status: Unemployed Instrumental Activities of Daily Living (ADLs): Requires support Medications Medication Management: No Issues/Barriers identified (supported by his son) Physical Functioning/Mobility Assistive Device: electric w/c, marie Advance Directives Advance Directives: Do you have an Advance Directive: Y 11/26/23 07:54 AD On File at [facility]: Y 11/26/23 07:54 Date Asked 01/28/25 01/28/25 11:25 AD Date Reviewed 01/28/25 01/28/25 10:47 COLST On File at [facility] Yes 03/20/24 15:55 COLST Date Scanned 03/20/24 03/20/24 15:55 Code Status Resuscitation Status DNR/DNI Insurance Coverage/Financial Issues Insurance: [facility] Care Team Visit Care Team Role Provider Type Yamileth Esqueda APRN MD [facility] STAFF PHYSICIAN Galen Rivera NP Primary Care Provider NURSE PRACTITIONER Vivian Mckenna RDN, [facility] Other Providers CLAY WORKERFARZANEH Reddy RDN Other Providers CLAY WORKER David Vaughn DO Emergency Provider [facility] STAFF PHYSICIAN Koby Childers Admit Provider [facility] STAFF PHYSICIAN Attending Provider Discharge Potential Discharge Needs: PCP F/U Appt Anticipated Barriers to Discharge: None Identified Patient/Family Education Needs: Review discharge instructions, discuss Ask Me Three Transportation: EMS Plan: Anticipate Edward will return home once medically cleared with a resumption of caregiver supports and HH services- RN only. He will follow up with his PCP and discharge plan of care, and will transport via EMS. CM will continue to follow. Social Determinants of Health Screening Will the Patient Participate in the Screening?: Unable to obtain [facility] All Active Problems (Updated 01/29/25 @ 15:08 by Lola Lira NP) Adrenal mass (Acute) Hypoxic respiratory failure (Acute) Pressure injury (Acute) On deep vein thrombosis (DVT) prophylaxis (Acute) Chronic skin ulcer (Acute) Mucus plugging of bronchi (Acute) Pneumonia (Acute) Acute respiratory distress (Acute) Aphasia (Acute) Dysphagia (Acute) Acute hypoxemic respiratory failure (Acute) Stage II pressure ulcer (Acute) Psychomotor agitation (Acute) Incontinence of bowel (Acute) Anemia (Chronic) Advanced care planning/counseling discussion (Acute) Counseling regarding advance care planning and goals of care (Acute) Dysphagia due to old stroke (Acute) Spell of altered consciousness (Acute) Constipation due to opioid therapy (Acute) Hypoalbuminemia (Acute) Hypernatremia (Acute) Aspiration into respiratory tract (Acute) Hypothyroidism (acquired) (Chronic) Hypoxia (Acute) Opiate dependence, continuous (Chronic) Hemiparesis affecting right side as late effect of cerebrovascular accident (Acute) Urinary retention (Acute) Benign prostatic hyperplasia with urinary retention (Chronic) Hypokalemia (Acute) Conjunctivitis, left eye (Acute) Dysphagia due to recent stroke (Acute) Chronic right shoulder pain (Acute) Type 2 diabetes mellitus (Chronic) 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) Hypertension (Chronic) Substance abuse in remission (Chronic) Hypothyroidism (Chronic) Osteomyelitis of great toe of left foot (Acute) Chronic ulcer of great toe (Acute) Amputation of toe of right foot (Acute) Hyperlipidemia (Chronic) Ganglion cyst of finger of right hand (Acute) Onychomycosis (Acute) Erectile dysfunction (Acute) Chronic pain (Chronic) ADHD (Acute) Polyp of colon, adenomatous (Acute) Adenoma of right adrenal gland (Acute) Diverticulosis (Acute) Asthma (Chronic) Staphylococcus epidermidis bacteremia (Acute) Cognitive impairment (Acute) Acute ischemic stroke (Acute) Left carotid artery occlusion (Acute) Expressive aphasia (Acute) Paralysis of right upper extremity (Acute) Dysphagia (Acute) Generalized anxiety disorder (Acute) Lung nodule (Acute) 2022 2 mm right upper lobe Medical History Fever Hospital discharge follow-up Unwitnessed fall Septic shock Pneumonia, aspiration Hypotension Bilateral pneumonia Acute hypoxic respiratory failure Failure to thrive in adult UTI (urinary tract infection) CO2 narcosis Medical neglect of elder by caregiver Encounter for assessment of healthcare decision-making capacity Plantar ulcer of left foot Palliative care patient Osteomyelitis due to type 2 diabetes mellitus left great toe Cellulitis Foot infection Osteomyelitis of toe of right foot MRSA bacteremia Osteomyelitis of second toe of left foot 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 Coughing Pain and swelling of left forearm Nausea Decrease in appetite Rales 1/4 way up posterior chest wall on left side BPH with urinary obstruction Discharge planning issues Encounter for long-term methadone use for opiate dependence Palliative care encounter Bladder stones Acute kidney injury Cellulitis of foot, right Diabetic infection of right foot Osteomyelitis of second toe of right foot History of back pain Hepatitis C Disorder of tendon of right hand Hyperglycemia Anxiety Toe osteomyelitis, right Right great toe Surgical History History of liver biopsy (~01/2001) History of appendectomy History of inguinal hernia repair History of amputation of great toe 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 DOS: 01/15/19 Family History Brother Heart disease Father Congestive heart failure Mother Congestive heart failure Other 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 neglect from 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 professor Social History Smoking/Tobacco Use Status: Current every day Tobacco Type: cigars Smoking risk assessment performed?: Yes Alcohol Intake: former Drug use: Current Sobriety Substance use type: former substance user Details: on methadone Caregiver/Support person: No Housing: house Communication Needs: Hard of Hearing and Corrective Lenses Pets and animals: Yes Pets and animals: cat(s) and dog(s) Sexually active: No Do you think of yourself as: straight/heterosexual Current gender identity: male What is your relationship status?: How often do you talk on the phone with friends or family?: three or more times per week How often do you get together with friends or relatives?: three or more times per week How often do you attend congregational or voodoo services?: decline to answer Do you belong to any clubs or organized social groups?: no Panel score (0-1 are the most socially isolated patients): 2 What type of physical activity do you participate in: none Frequency: does not exercise Richa/Latter Day: None Special richa needs: No Seatbelt use: always Helmet use: No Drive intox or ride w/intox flatbed driver: No Do you feel safe at home: Yes Do you feel safe in your relationship?: Yes
[2025-01-29] MEDS: VANCOMYCIN 750 MG in Normal Saline 250 ML 167 MG IVPB (17:48)
[2025-01-29 19:30] VITALS: BP 144/60; PULSE 85; RESP 16; TEMP 36.6; O2SAT 93
[2025-01-29] MEDS: Atorvastatin 40 MG TAB 80 MG PO (20:03)
[2025-01-29] MEDS: Enoxaparin 40 MG/0.4 ML SYR SC (20:04)
[2025-01-29] MEDS: Acetaminophen 500 MG TAB 1000 MG PO (20:04)
[2025-01-29] MEDS: Docusate Sodium 100 MG/10 ML CUP PO (20:04)
[2025-01-29] MEDS: Insulin Glargine 300 UNITS/3 ML PEN 20 UNITS SC (20:08)
[2025-01-29 23:59] VITALS: BP 121/50; PULSE 80; RESP 16; TEMP 36.4; O2SAT 95
[2025-01-30 03:29] VITALS: BP 162/62; PULSE 67; RESP 16; TEMP 36.2; O2SAT 94
[2025-01-30] MEDS: Acetaminophen 500 MG TAB 1000 MG PO (03:56)
[2025-01-30] MEDS: AZTREONAM 2,000 MG in Normal Saline 100 ML 200 MG IVPB ×2 (03:56→12:53)
[2025-01-30] MEDS: Normal Saline Flush 10 ML SYR IVP (06:16)
[2025-01-30] MEDS: VANCOMYCIN 750 MG in Normal Saline 250 ML 166.667 MG IVPB (06:17)
[2025-01-30 07:08] LABS: Abs Immature Grans 0.02 10^3/uL (0.0-0.06); Absolute Basophil Count 0.03 10^3/uL (0.0-0.2); Absolute Eosinophil Count 0.17 10^3/uL (0.0-0.7); Absolute Lymphocyte Count 1.13 10^3/uL (1.2-3.4); Absolute Monocyte Count 0.42 10^3/uL (0.1-0.8); Basophils % 0.7 %; HCT 29.3 % (40.0-50.0); HGB 9.2 g/dL (13.5-17.5); Immature Grans % 0.5 %; Lymphocytes % 26.5 %; MCH 29.5 pg (27.0-33.0); MCHC 31.4 % (32.0-36.0); MCV 94 fL (80-95); Monocytes % 9.8 %; Neutrophils % 58.5 %; Platelet Count 204 10^3/uL (130-400); RBC 3.12 10^6/uL (4.36-5.78); RDW 14.9 % (11.8-14.1); RDW-SD 51.1 fL; WBC 4.27 10^3/uL (4.4-10.8)
[2025-01-30 07:31] LABS: Anion Gap 4.7 mmol/L (3-11); BUN 31 mg/dL (7-18); CO2 30.3 mmol/L (21.0-32.0); CREATININE 0.9 mg/dL (0.70-1.30); Calcium 7.7 mg/dL (8.5-10.1); Chloride 112 mmol/L (98-107); Estimated GFR 90.74 (mL/min/1.73m2); Glucose 177 mg/dL (74-106); Potassium 3.7 mmol/L (3.5-5.1); Sodium 147 mmol/L (136-145)
[2025-01-30 08:24] VITALS: BP 133/57; PULSE 57; RESP 14; TEMP 36; O2SAT 95
[2025-01-30] MEDS: Carvedilol 3.125 MG TAB 6.25 MG PO (08:26)
[2025-01-30] MEDS: Gabapentin 100 MG CAP PO (08:26)
[2025-01-30] MEDS: Potassium Chloride 20 MEQ TABCR PO (08:26)
[2025-01-30] MEDS: Aspirin E.C. 81 MG TABEC PO (08:26)
[2025-01-30] MEDS: guaiFENesin 600 MG TABCR PO (08:26)
[2025-01-30] MEDS: Pantoprazole 40 MG TABCR PO (08:26)
[2025-01-30] MEDS: Docusate Sodium 100 MG/10 ML CUP PO (08:26)
[2025-01-30] MEDS: ARIPiprazole 5 MG TAB 10 MG PO (08:26)
[2025-01-30] MEDS: Normal Saline 10 ML VIAL IJ (08:27)
[2025-01-30] MEDS: Insulin Aspart 300 UNITS/3 ML PEN SC ×2 (08:27→12:33)
[2025-01-30] MEDS: levETIRAcetam Oral Solution 100 MG/ML 250 MG PO (08:27)
[2025-01-30 11:15] VITALS: BP 135/58; PULSE 78; RESP 16; TEMP 36.8; O2SAT 94
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
[2025-01-30] MEDS: SODIUM CHLORIDE 0.45% 250 ML IV (11:48)
--- NOTE | 2025-01-30 12:39 | PDOC.CMDIS ---
Date of service: 01/30/25 Time of Service: 12:39 Care Management Discharge Plan Reason for Hospitalization: Sepsis Discharge Plan: Ed will be discharged this afternoon to his son, Stephen's home in [place]. Susie is Ed's paid caregiver and is also agreeable to this discharge plan. Ed will continue with his HH services, f/u with his PCP and continue per his plan of care. Outpatient follow up with Palliative Care is recommended. Ed will transport home via EMS as coordinated by CM. Patient/Family Education Needs: Review of discharge instructions, activity, limitations and discuss ask me three. Services Needed at Discharge: Transportation (EMS, [facility]) SDOH Health Related Social Needs: No Data to Display
[2025-01-30] MEDS: levoFLOXacin 750 MG/150 ML BAG 100 MG IVPB (14:12)
--- NOTE | 2025-01-30 14:57 | PDOC.HHF2F ---
Home Health Referral Home Health Orders Clinical synopsis of why skilled professionals are needed: This 74 years old male patient with a past medical history of previous stroke with chronic deficits/right-sided hemiparesis, who is nonverbal, DM2, osteomyelitis, chronic pressure ulcers to buttocks and feet, previous hep C, MRSA colonization, newly found adrenal mass, previous pneumonia with recent admission and subsequent discharge on 12/27/2024 with azithromycin, presented today for evaluation of worsening shortness of breath over 4 days and hypoxemia via EMS. The patient presented on treated with oxygen status post EMS initial assessment of saturation in the 70s. The patient presented with tachycardia at 116, hypertensive, afebrile. Patient had no complaints as he is nonverbal. Workup in the ED showed leukocytosis at 16 with left shift, sodium at 148, BNP was 1374 with previous reading at 4369, calcium 8.1 and albumin at 1.5. Chest x-ray showed evidence of pneumonia. D-dimer at 1276 with a CTA negative for PE, improvement in bilateral multifocal pneumonia and debris in the right lower lobe main bronchus appearing worse than on previous studies . The patient was admitted to the medical surgical floor by the hospitalist team for hospital-acquired pneumonia and to mobilize additional resources an outpatient basis to continue to help with setting care. In the ED the patient was treated with aztreonam, Levaquin and vancomycin. The patient is a DNR/DNI, as per previous records. The patient remained nonverbal and was not able to confirm or deny symptoms on admission. MRSA PCR nares was positive again this admission. The patient no longer requires oxygen supplementation and remains hemodynamically stable. Blood cultures completed on admission are negative at the time of discharge . The patient will be discharged home with home health nursing, physical therapy , occupational therapy and chief medical officer to complete his treatment for pneumonia with oral antibiotics. The patient will need to follow-up with his PCP within 7 days of discharge. Discussed with Dr. Jean Registered Nurse: Check all that apply Instruct on new or changed medication(s)/assess compliance: Ordered Assess wound for signs and symptoms of infection, instruct on wound care and/or provide skilled wound care consisting of: Wound care as per previous regimen prior to admission Physical Therapist: Check all that apply Increase strength & endurance for safe mobility at home: Ordered To design/establish home maintenance program: Ordered Fall reduction therapy program for patient with history of frequent falls: Ordered Home safety evaluation and teaching/gait training including stair management (if applicable): Ordered Better Breathing Program: Ordered Occupational Therapist: Evaluate and treat for patient unable to perform ADL/IADL/self-care: Ordered Upper extremity strengthening, range and motion: Ordered Blood Bank Attendant: Assist with community resources: Ordered Assist with alf care planning: Ordered Home Bound Status Requires the aid of supportive device (check all that apply): Other (bedbound) Describe why leaving home would require a considerable and taxing effort: Safety Concerns: describe (bedbound ) Encounter Date and Reason: I certify that a FTF encounter for this patient was performed on January 30, 2025 and that such encounter was related to the primary reason the patient requires home health services. The encounter was conducted in the following manner: By me as the certifying physician, CORRECTIONS UNIT SUPERVISOR, PA or By an inpatient physician, CORRECTIONS UNIT SUPERVISOR or PA during an inpatient stay who communicated findings to me, Certification And Authentication I certify that I composed the above information based on my clinical judgment relating to this patient's medical condition and, if applicable, clinical findings communicated to me by the NPP or inpatient physician who performed the FTF encounter. Name of Provider that will be monitoring home health services: Galen Rivera
[2025-01-30 15:12] LABS: Anion Gap 2.2 mmol/L (3-11); BUN 30 mg/dL (7-18); CO2 30.8 mmol/L (21.0-32.0); CREATININE 0.9 mg/dL (0.70-1.30); Calcium 7.4 mg/dL (8.5-10.1); Chloride 110 mmol/L (98-107); Estimated GFR 90.74 (mL/min/1.73m2); Glucose 257 mg/dL (74-106); Sodium 143 mmol/L (136-145)
[2025-01-30 15:24] VITALS: BP 149/60; PULSE 72; RESP 16; TEMP 36.4; O2SAT 96
== END 2025-01-30 16:15 | disposition home health service (06) | DRG 871 ==
LOC: ER 16:08 → MS 21:04
PROVIDERS: Admitting Provider Family Medicine; Emergency Provider Student in an Organized Health Care Education/Training Program; PCP Nurse Practitioner Family; Responsible Provider Nurse Practitioner Acute Care; Visit Provider Family Medicine
DX: A41.9 Sepsis, unspecified organism (principal); J18.9 Pneumonia, unspecified organism; J96.01 Acute respiratory failure with hypoxia; I69.351 Hemiplegia and hemiparesis following cerebral infarction affecting right dominant side; F11.20 Opioid dependence, uncomplicated; E11.9 Type 2 diabetes mellitus without complications; I10 Essential (primary) hypertension; I69.320 Aphasia following cerebral infarction; Z22.322 Carrier or suspected carrier of Methicillin resistant Staphylococcus aureus; E27.8 Other specified disorders of adrenal gland; Z66 Do not resuscitate; D64.9 Anemia, unspecified; R15.9 Full incontinence of feces; I69.391 Dysphagia following cerebral infarction; K59.03 Drug induced constipation; R33.8 Other retention of urine; N40.1 Benign prostatic hyperplasia with lower urinary tract symptoms; J45.909 Unspecified asthma, uncomplicated; F41.1 Generalized anxiety disorder; F17.290 Nicotine dependence, other tobacco product, uncomplicated; Z79.4 Long term (current) use of insulin; L89.629 Pressure ulcer of left heel, unspecified stage; L89.159 Pressure ulcer of sacral region, unspecified stage; L89.899 Pressure ulcer of other site, unspecified stage
CPT/HCPCS: 00123; 36415; 71275; 80048; 80053; 82805; 87040; 87637; 87641; 93005; 96365; 96366; 96367; 96375; 99291; J1650; 71045; 80202; 83605; 83735; 83880; 84484; 85025; 85379; 85610; 85730; 93010; 94760; 99223; 99233; 99239; J0457; J0612; J1815; J1956; J3010; J3370; J3372; J3490

== ENCOUNTER 2025-02-16 18:05 | Observation (INO) | payer MEDICARE, MEDICAID, SELFPAY ==
[2025-02-16] VITALS (108 sets, daily range): BP systolic 186–241; BP diastolic 59–76; PULSE 88–122; RESP 7–28; TEMP 36.6–38.3; O2SAT 84–100
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
--- NOTE | 2025-02-16 19:15 | DI.RAD_ITS ---
Exam(s) XR PORTABLE CHEST AP EXAM: XR PORTABLE CHEST AP CLINICAL HISTORY: hypoxia TECHNIQUE: 2D digital imaging was performed. COMPARISON: CR,XR XR PORTABLE CHEST AP from 03/12/2024 CR XR PORTABLE CHEST AP from 03/19/2024 CR XR CHEST 2V PA LATERAL from 12/23/2024 CR XR PORTABLE CHEST AP from 01/28/[address] CHEST PE CTA from 01/28/2025 FINDINGS: LUNGS: Clear significant improvement in previously noted bilateral infiltrates which are greater on t he right. No pleural abnormality seen. HEART: Normal size. AORTA: Normal diameter. BONES: Old left lower rib fracture. Soft tissues: Unremarkable. IMPRESSION: No improvement in bilateral infiltrates. DATA REPOSITORY: RADIATION DOSE DELIVERED:
[2025-02-16 20:02] LABS: BE (Venous) 5 mmol/L (-2-3); HCO3 (Venous) 31 mmol/L (23-28); O2 Sat (Venous) 31 %; TCO2 (Venous) 29 mmol/L (24-29); pCO2 (Venous) 54 mmHg (41-51); pH (Venous) 7.36 (7.31-7.41); pO2 (Venous) 23 mmHg
[2025-02-16 20:08] LABS: Abs Immature Grans 0.02 10^3/uL (0.0-0.06); Absolute Basophil Count 0.05 10^3/uL (0.0-0.2); Absolute Eosinophil Count 0.16 10^3/uL (0.0-0.7); Absolute Lymphocyte Count 1.14 10^3/uL (1.2-3.4); Absolute Monocyte Count 0.38 10^3/uL (0.1-0.8); Absolute Neutrophil Count 4.51 10^3/uL (1.2-6.7); Basophils % 0.8 %; Eosinophils % 2.6 %; Immature Grans % 0.3 %; Lymphocytes % 18.2 %; MCH 29.6 pg (27.0-33.0); MCHC 31.6 % (32.0-36.0); MCV 94 fL (80-95); MPV 9.8 fL (8.0-11.0); Monocytes % 6.1 %; Platelet Count 322 10^3/uL (130-400); RBC 4.05 10^6/uL (4.36-5.78); RDW 15.8 % (11.8-14.1); RDW-SD 54.1 fL; WBC 6.26 10^3/uL (4.4-10.8)
[2025-02-16 20:30] LABS: ALT 20 U/L (16-63); AST 28 U/L (15-37); Albumin 2.3 g/dL (3.4-5.0); Alkaline Phosphatase 125 U/L (46-116); Anion Gap 4.5 mmol/L (3-11); BUN 33 mg/dL (7-18); Bilirubin, Total 0.5 mg/dL (0.2-1.0); CO2 30.5 mmol/L (21.0-32.0); Calcium 9.1 mg/dL (8.5-10.1); Chloride 105 mmol/L (98-107); Estimated GFR 79.97 (mL/min/1.73m2); Glucose 203 mg/dL (74-106); Potassium 4.5 mmol/L (3.5-5.1); Sodium 140 mmol/L (136-145); Total Protein 9.3 g/dL (6.4-8.2)
[2025-02-16] MEDS: Normal Saline 500 ML IV (20:31)
--- NOTE | 2025-02-16 21:02 | DI.VRAD_ITS ---
PROCEDURE INFORMATION: Exam: XR Chest Exam date and time: 02/16/2025 7:35 PM Age: 74 years old Clinical indication: Shortness of breath TECHNIQUE: Imaging protocol: Radiologic exam of the chest. Views: 1 view. COMPARISON: CT CHEST PE CTA 01/28/2025 1:42 PM FINDINGS: Lungs: Faint bilateral interstitial infiltrates may represent atelectasis or developing pneumonia. Pleural spaces: Unremarkable. No pleural effusion. No pneumothorax. Heart/Mediastinum: Unremarkable. No cardiomegaly. Bones/joints: Unremarkable. IMPRESSION: Faint bilateral interstitial infiltrates may represent atelectasis or developing pneumonia. Dictated and Authenticated by: Linda Griffith MD. Orderin Parish Mcduffie MD
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
--- NOTE | 2025-02-16 21:31 | NUR.NOTE ---
190: ARABELLA Zamudio to bedside for d/c. Pt noted to be somnolent and upon assessment SpO2 83% on RA. ARABELLA Zamudio notified this RN and MD Lugo, who came to bedside. Pt noted to have vomited a small amount of brown/bilious fluid. Tried multiple pulse oximeter sites and types w/o improvement of SpO2 >88%. Placed on 2lpm via NC w/ good response of SpO2 to 96%. IV started and labs drawn. Pt more alert w/ activity, but difficult to understand w/ garbled speech. This is reportedly baseline.
[2025-02-16] MEDS: cefTRIAXone 1 GM/50 ML BAG IVPB (22:21)
[2025-02-16] MEDS: metroNIDAZOLE 500 MG/100 ML BAG 100 MG IVPB (22:21)
--- NOTE | 2025-02-16 22:49 | W.PC.ACHO ---
Registration Status: Primary Language: Preferred Language: ED Information & Data Chief Complaint Cellulitis 02/16/25 18:25 Triage Note HH saw patient today, 02/16/25 18:08 patient has multiple decubiti and they were concerned he had an abscess developing. Medical / Surgical History (Last Reviewed 02/16/25 @ 21:27 by Dwayne Boswell) Pneumonia Acute cerebrovascular accident (CVA) Fever Hospital discharge follow-up Unwitnessed fall Septic shock Pneumonia, aspiration Hypotension Bilateral pneumonia Acute hypoxic respiratory failure Failure to thrive in adult UTI (urinary tract infection) CO2 narcosis Medical neglect of elder by caregiver Encounter for assessment of healthcare decision-making capacity Plantar ulcer of left foot Palliative care patient Osteomyelitis due to type 2 diabetes mellitus Cellulitis Foot infection Osteomyelitis of toe of right foot MRSA bacteremia Osteomyelitis of second toe of left foot 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 Coughing Pain and swelling of left forearm Nausea Decrease in appetite Rales 1/4 way up posterior chest wall on left side BPH with urinary obstruction Discharge planning issues Encounter for long-term methadone use for opiate dependence Palliative care encounter Bladder stones Acute kidney injury Cellulitis of foot, right Diabetic infection of right foot Osteomyelitis of second toe of right foot History of back pain Hepatitis C Disorder of tendon of right hand Hyperglycemia Anxiety Toe osteomyelitis, right (Last Reviewed 02/16/25 @ 21:27 by Dwayne Boswell) History of liver biopsy (~01/2001) History of appendectomy History of inguinal hernia repair History of amputation of great toe Status post amputation of toe Most Recent Vital Signs Temperature 36.6 C 02/16/25 19:13 Temperature Source Tympanic 02/16/25 19:13 Pulse 103 H 02/16/25 20:45 Respiratory Rate 11 L 02/16/25 20:45 Blood Pressure 186/74 H 02/16/25 20:31 Blood Pressure Position Supine 02/16/25 18:08 Pulse Oximetry 96 02/16/25 20:48 Oxygen Delivery Method Nasal Cannula 02/16/25 20:48 Oxygen Flow Rate 2 02/16/25 20:48 Comment nurse is aware of o2. 02/16/25 19:13 Allergies Penicillins Allergy (Unknown, Verified 02/16/25 18:20) Unknown codeine Adverse Reaction (Verified 02/16/25 18:20) itching and bloutchy pentazocine lactate (From [place]win) Adverse Reaction (Verified 02/16/25 18:20) makes me deathly ill Precautions Isolation Fall precaution 02/16/25 18:16 Active Medications Generic Name Dose Route Start Last Admin Trade Name Cosme PRN Reason Stop Dose Admin Metronidazole 500 mg in 100 mls @ 100 mls/hr 02/16/25 21:37 02/16/25 22:21 Flagyl IVPB 02/16/25 22:36 100 mls/hr NOW ONE Administration IV IV Catheter Type [Left Saline Lock Antecubital] IV Catheter Gauge [Left 18 Antecubital] Diagnostics 02/16/25 02/16/25 Range/Units 22:18 19:53 WBC 6.26 (4.4-10.8) 10^3/uL RBC 4.05 L (4.36-5.78) 10^6/uL Hgb 12.0 L (13.5-17.5) g/dL Hct 38.0 L (40.0-50.0) % MCV 94 (80-95) fL MCH 29.6 (27.0-33.0) pg MCHC 31.6 L (32.0-36.0) % RDW 15.8 H (11.8-14.1) % Plt Count 322 (130-400) 10^3/uL MPV 9.8 (8.0-11.0) fL Immature Gran % 0.3 % Neutrophils % 72.0 % Lymphocytes % 18.2 % Monocytes % 6.1 % Eosinophils % 2.6 % Basophils % 0.8 % Nucleated RBC % 0.0 (0.0-0.3) % Absolute Neutrophils 4.51 (1.2-6.7) 10^3/uL Absolute Lymphocytes 1.14 L (1.2-3.4) 10^3/uL Absolute Monocytes 0.38 (0.1-0.8) 10^3/uL Absolute Eosinophils 0.16 (0.0-0.7) 10^3/uL Absolute Basophils 0.05 (0.0-0.2) 10^3/uL VBG pH 7.36 (7.31-7.41) VBG pCO2 54 H (41-51) mmHg VBG pO2 23 mmHg VBG HCO3 31 H (23-28) mmol/L VBG Total CO2 29 (24-29) mmol/L VBG O2 Saturation 31 % VBG Base Excess 5 H (-2-3) mmol/L Sodium 140 (136-145) mmol/L Potassium 4.5 (3.5-5.1) mmol/L Chloride 105 (98-107) mmol/L Carbon Dioxide 30.5 (21.0-32.0) mmol/L Anion Gap 4.5 (3-11) mmol/L BUN 33 H (7-18) mg/dL Creatinine 1.0 (0.70-1.30) mg/dL Est GFR (CKD-EPI 2020) 79.97 (mL/min/1.73m2) Glucose 203 H (74-106) mg/dL Calcium 9.1 (8.5-10.1) mg/dL Total Bilirubin 0.5 (0.2-1.0) mg/dL AST 28 (15-37) U/L ALT 20 (16-63) U/L Alkaline Phosphatase 125 H (46-116) U/L Total Protein 9.3 H (6.4-8.2) g/dL Albumin 2.3 L (3.4-5.0) g/dL COVID-19 Source Pending SARS-CoV-2 (PCR) Pending Influenza Type A (PCR) Pending Influenza Type B (PCR) Pending RSV (PCR) Pending 02/16/25 22:07 Blood Culture - Pending Blood 02/16/25 19:53 Blood Culture - Pending Blood Intake and Output - 24 Hour Total 02/16/25 18:00 thru 02/16/25 18:08 Weight 63.6 kg Falls Risk Assessment History of Falls Previous History 02/16/25 18:16 Contributing Factors Unstable,Impairments, 02/16/25 18:16 Incontinence,Medications Ambulatory Aids Uses ambulatory device + 02/16/25 18:16 Tubes/Lines With any additional score 02/16/25 18:16 Gait Evaluation W/any additional score 02/16/25 18:16 Cognition Cognitive impairment 02/16/25 18:16 Fall Total Score 112 02/16/25 18:16 Level of Risk Maximum Risk 02/16/25 18:16 Problems (Last Reviewed 02/16/25 @ 21:27 by Dwayne Boswell) Acute hypoxemic respiratory failure (Acute) Stage II pressure ulcer (Chronic) Hypothyroidism (acquired) (Chronic) Opiate dependence, continuous (Chronic) Urinary retention (Acute) Episodes of staring (Chronic) 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 Pt noted to be somnolent and upon assessment SpO2 83% on RA. ARABELLA Zamudio notified this RN and MD Lugo, who came to bedside. Pt noted to have vomited a small amount of brown/bilious fluid. Tried multiple pulse oximeter sites and types w/o improvement of SpO2 >88%. Placed on 2lpm via NC w/ good response of SpO2 to 96%. IV started and labs drawn. Pt more alert w/ activity, but difficult to understand w/ garbled speech. This is reportedly baseline. Initialized on 02/16/25 21:31 - END OF NOTE v v v v v v v v v Sending and/or Receiving Nurses: Please use comment section below to note any information pertinent to the patient hand-off not included above. Information / Comments: Patient has expressive aphasia, right hemiphagia, bilat infiltrate. desat earlier and has been improved with O2, sat 97% on 2L. Afebrile, occasionally slight tachy 110's when he desats. Fentanyl patch on left shoulder was place from home today. NS bolus is infusing. Flagyl and ceftriaxone ordered. Blood culture and Flu/vid swab pending. Report received from: Nisha Ambriz RN
[2025-02-16 22:59] LABS: COVID-19 PCR Negative (Negative); Influenza A PCR Negative (Negative); Influenza B PCR Negative (Negative); RSV PCR Negative (Negative)
[2025-02-16 23:01] LABS: Source Nasopharynx
[2025-02-16 23:37] LABS: *AMPHETAMINES SCREEN URINE Negative (Negative); *BARBITURATES SCREEN URINE Negative (Negative); *BENZODIAZEPINES SCREEN URINE Negative (Negative); Cannabinoids THC Positive (Negative); Cocaine Screen,Urine Negative (Negative); METHADONE URINE SCREEN Negative (Negative); OPIATES URINE SCREEN Positive (Negative)
[2025-02-16 23:40] LABS: Tricyclic Antidepressants Negative (Negative)
[2025-02-16 23:46] LABS: INR 1.1 (0.9-1.1); Prothrombin Time 10.8 sec (9.1-11.1)
[2025-02-17] VITALS (8 sets, daily range): BP systolic 123–200; BP diastolic 52–76; PULSE 81–122; RESP 16–18; TEMP 36.4–36.8; O2SAT 93–96
[2025-02-17 00:03] LABS: TSH (W/Ref FT4) 3.69 uIU/mL (0.36-3.74)
[2025-02-17] MEDS: Metoprolol 5 MG/5 ML VIAL IVP (00:11)
[2025-02-17] MEDS: ACETAMINOPHEN 1,000 MG/100 ML BAG 400 MG IVPB ×2 (00:12→08:29)
[2025-02-17] MEDS: Normal Saline Flush 10 ML SYR IVP ×3 (00:12→20:00)
[2025-02-17] MEDS: Enoxaparin 40 MG/0.4 ML SYR SC ×2 (00:34→19:52)
[2025-02-17] MEDS: Insulin Aspart 300 UNITS/3 ML PEN SC ×4 (01:12→21:22)
[2025-02-17] MEDS: Normal Saline 1,000 ML 80 ML IV (01:40)
[2025-02-17 03:11] LABS: Bilirubin Negative (Negative); Blood Large (Negative); Clarity Clear (Clear); Glucose Negative (Negative); Ketones 15 mg/dL (Negative); Leukocyte Esterase Negative (Negative); Nitrite Negative (Negative); Specific Gravity >= 1.030 (1.005-1.025); Urobilinogen 0.2 mg/dL (Up to 0.2); pH 5.5 (5-8)
[2025-02-17] MEDS: metroNIDAZOLE 500 MG/100 ML BAG 100 MG IVPB ×4 (03:17→21:22)
[2025-02-17 03:19] LABS: Bacteria Few HPF (Negative); Casts 3-5 Hyaline LPF (Negative); Crystals Negative HPF (Negative); Epithelial Cells Negative HPF (Negative); Mucus Moderate (Negative); RBC 20-50 HPF (0-2)
[2025-02-17 03:20] LABS: Other Cells Rare Yeast (Negative)
[2025-02-17 03:21] LABS: C & S Indicated? No
[2025-02-17 08:12] LABS: HCT 32.4 % (40.0-50.0); HGB 10.4 g/dL (13.5-17.5); MCH 30.1 pg (27.0-33.0); MCHC 32.1 % (32.0-36.0); MCV 94 fL (80-95); MPV 10.2 fL (8.0-11.0); Platelet Count 290 10^3/uL (130-400); RBC 3.46 10^6/uL (4.36-5.78); RDW 15.8 % (11.8-14.1); RDW-SD 53.3 fL; WBC 24.83 10^3/uL (4.4-10.8)
[2025-02-17] MEDS: Gabapentin 100 MG CAP PO ×3 (08:20→19:52)
[2025-02-17 08:34] LABS: ALT 6 U/L (16-63); AST 22 U/L (15-37); Albumin 1.8 g/dL (3.4-5.0); Alkaline Phosphatase 96 U/L (46-116); Anion Gap 7.5 mmol/L (3-11); BUN 35 mg/dL (7-18); Bilirubin, Total 0.6 mg/dL (0.2-1.0); CO2 26.5 mmol/L (21.0-32.0); CREATININE 0.9 mg/dL (0.70-1.30); Calcium 8.4 mg/dL (8.5-10.1); Chloride 110 mmol/L (98-107); Estimated GFR 90.74 (mL/min/1.73m2); Glucose 154 mg/dL (74-106); Magnesium 1.7 mg/dL; Potassium 3.8 mmol/L (3.5-5.1); Sodium 144 mmol/L (136-145); Total Protein 7.4 g/dL (6.4-8.2)
--- NOTE | 2025-02-17 09:27 | INITIAL_ITS ---
Date of service: 02/17/25 Time of Service: 09:31 Care Management Initial Assmt Initial Assessment Reason for Hospitalization: acute hypoxic respiratory failure, aspiration pneumonia Functional Status/Living Situation Patient Presentation: Ed was resting when CM attempted to met with him. Later, CM met with Susie, Ed's son, who had come in to help encourage Ed to take his medications. Ed was refusing to take his medications earlier, but per RN, he started to allow some medications, and was more engaged with nursing this afternoon. Per hospitalist, he will remain overnight for continued IV antibiotics; the provider has been in contact with his PCP today, making a plan for his PCP to see him at home next week. A palliative care consult was placed, but Susie stated that he did not want Palliative involved at this time; he and Ed met with Palliative care last week at their home and hospice was discussed, which Ed and Susie are opposed to. Palliative care has been following Ed for a long time and has been supportive; hopeful that this connection can be maintained in the community. HH RN will be resumed at home upon discharge. CM will continue to follow. Town of Residence: [place] Resides with: Child Significant Other/Family: Local Caregiver/Guardian: Son, Susie, is his paid caregiver. Daughter, Alejandra, is HCA, although she has been unreachable recently. Employment Status: Unemployed Instrumental Activities of Daily Living (ADLs): Requires support Medications Medication Management: No Issues/Barriers identified (medication managed by caregiver) Physical Functioning/Mobility Assistive Device: w/c, marie Advance Directives Advance Directives: Do you have an Advance Directive: Y 11/26/23 07:54 AD On File at [facility]: Y 11/26/23 07:54 Date Asked AD Date Reviewed 02/17/25 02/17/25 00:12 COLST On File at [facility] Yes 03/20/24 15:55 COLST Date Scanned 03/20/24 03/20/24 15:55 Code Status Resuscitation Status DNR/DNI Insurance Coverage/Financial Issues Insurance: [facility] Care Team Visit Care Team Role Provider Type Amanda Bull NP MD [facility] STAFF PHYSICIAN Galen Rivera, OLGA Primary Care Provider NURSE PRACTITIONER Paige Sanchez, LACQUER SPRAY BOOTH OPERATOR Other Providers SPEECH LANGUAGE PATHOLOGIST Carl Blanca, LACQUER SPRAY BOOTH OPERATOR Other Providers SPEECH LANGUAGE PATHOLOGIST Mayte Alvarado Other Providers SPEECH LANGUAGE PATHOLOGIST Aline Carballo, LACQUER SPRAY BOOTH OPERATOR Other Providers SPEECH LANGUAGE PATHOLOGIST Venessa Mercer, LACQUER SPRAY BOOTH OPERATOR Other Providers SPEECH LANGUAGE PATHOLOGIST Sofi Lugo MD Emergency Provider [facility] STAFF PHYSICIAN Dwayne Boswell Admit Provider NON-[facility] STAFF PHYSICIAN Attending Provider Discharge Potential Discharge Needs: Other (coordinated return home with caregiver support) Anticipated Barriers to Discharge: None Identified Patient/Family Education Needs: Review discharge instructions, discuss Ask Me Three Transportation: EMS Plan: Anticipate Ed will return home once medically cleared with a resumption of HH RN, PT. He will transport via EMS. He will resume caregiver support by his son as well. He will follow up with his PCP and discharge plan of care. CM will continue to follow. Social Determinants of Health Screening Will the Patient Participate in the Screening?: Unable to obtain Do you worry about having a steady place to live?: no PFSH All Active Problems (Updated 02/16/25 @ 21:42 by Dwayne Boswell) Adrenal mass (Acute) Pressure injury (Acute) Chronic skin ulcer (Acute) Mucus plugging of bronchi (Acute) Pneumonia (Acute) Acute respiratory distress (Acute) Aphasia (Acute) Dysphagia (Acute) Acute hypoxemic respiratory failure (Acute) Stage II pressure ulcer (Chronic) Psychomotor agitation (Acute) Incontinence of bowel (Acute) Anemia (Chronic) Advanced care planning/counseling discussion (Acute) Counseling regarding advance care planning and goals of care (Acute) Dysphagia due to old stroke (Acute) Spell of altered consciousness (Acute) Constipation due to opioid therapy (Acute) Hypoalbuminemia (Acute) Hypernatremia (Acute) Aspiration into respiratory tract (Acute) Hypothyroidism (acquired) (Chronic) Hypoxia (Acute) Opiate dependence, continuous (Chronic) Hemiparesis affecting right side as late effect of cerebrovascular accident (Acute) Urinary retention (Acute) Benign prostatic hyperplasia with urinary retention (Chronic) Hypokalemia (Acute) Episodes of staring (Chronic) Conjunctivitis, left eye (Acute) Dysphagia due to recent stroke (Acute) Chronic right shoulder pain (Acute) Type 2 diabetes mellitus (Chronic) 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) Hypertension (Chronic) Substance abuse in remission (Chronic) Hypothyroidism (Chronic) Osteomyelitis of great toe of left foot (Acute) Chronic ulcer of great toe (Acute) Amputation of toe of right foot (Acute) Hyperlipidemia (Chronic) Ganglion cyst of finger of right hand (Acute) Onychomycosis (Acute) Erectile dysfunction (Acute) Chronic pain (Chronic) ADHD (Acute) Polyp of colon, adenomatous (Acute) Adenoma of right adrenal gland (Acute) Diverticulosis (Acute) Asthma (Chronic) Staphylococcus epidermidis bacteremia (Acute) Cognitive impairment (Acute) Acute ischemic stroke (Acute) Left carotid artery occlusion (Acute) Expressive aphasia (Acute) Paralysis of right upper extremity (Acute) Dysphagia (Acute) Generalized anxiety disorder (Chronic) Lung nodule (Acute) 2022 2 mm right upper lobe Medical History Pneumonia Acute cerebrovascular accident (CVA) Fever Hospital discharge follow-up Unwitnessed fall Septic shock Pneumonia, aspiration Hypotension Bilateral pneumonia Acute hypoxic respiratory failure Failure to thrive in adult UTI (urinary tract infection) CO2 narcosis Medical neglect of elder by caregiver Encounter for assessment of healthcare decision-making capacity Plantar ulcer of left foot Palliative care patient Osteomyelitis due to type 2 diabetes mellitus left great toe Cellulitis Foot infection Osteomyelitis of toe of right foot MRSA bacteremia Osteomyelitis of second toe of left foot 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 Coughing Pain and swelling of left forearm Nausea Decrease in appetite Rales 1/4 way up posterior chest wall on left side BPH with urinary obstruction Discharge planning issues Encounter for long-term methadone use for opiate dependence Palliative care encounter Bladder stones Acute kidney injury Cellulitis of foot, right Diabetic infection of right foot Osteomyelitis of second toe of right foot History of back pain Hepatitis C Disorder of tendon of right hand Hyperglycemia Anxiety Toe osteomyelitis, right Right great toe Surgical History History of liver biopsy (~01/2001) History of appendectomy History of inguinal hernia repair History of amputation of great toe 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 DOS: 01/15/19 Family History Brother Heart disease Father Congestive heart failure Mother Congestive heart failure Other Adult neglect from client professional Social History Smoking/Tobacco Use Status: Current every day Tobacco Type: cigars Smoking risk assessment performed?: Yes Alcohol Intake: former Drug use: Current Sobriety Substance use type: former substance user Details: on methadone Caregiver/Support person: No Housing: house Communication Needs: Hard of Hearing and Corrective Lenses Pets and animals: Yes Pets and animals: cat(s) and dog(s) Sexually active: No Do you think of yourself as: straight/heterosexual Current gender identity: male What is your relationship status?: How often do you talk on the phone with friends or family?: three or more times per week How often do you get together with friends or relatives?: three or more times per week How often do you attend lutheran or confucianism services?: decline to answer Do you belong to any clubs or organized social groups?: no Panel score (0-1 are the most socially isolated patients): 2 What type of physical activity do you participate in: none Frequency: does not exercise Richa/Mosque: None Special richa needs: No Seatbelt use: always Helmet use: No Drive intox or ride w/intox regional dedicated 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: No Do you feel safe at home: Yes Do you feel safe in your relationship?: Yes
[2025-02-17] MEDS: LORazepam 1 MG TAB PO (14:01)
[2025-02-17] MEDS: ARIPiprazole 5 MG TAB 10 MG PO (14:42)
[2025-02-17] MEDS: Aspirin E.C. 81 MG TABEC PO (14:42)
--- NOTE | 2025-02-17 14:55 | W.SPSTE ---
Date of service: 02/17/25 Time of Service: 13:40 Subjective Clinical (Bedside) Swallow Evaluation - Inpatient Speech Language Pathology Referred by: Dwayne Boswell Start time: 13:40 End time: 14:05 Total patient contact: 25 min Referral Type: Routine Swallow Consult Precautions: Contact, Fall, DNR/DNI Reason for Referral/HPI: Ed is a 74 y/o M with DM2, anxiety, chronic opioid dependence, and prior CVA with residual chronic profound receptive/expressive aphasia, hemiplegia, and dysphagia, well known to ENGLISH INSTRUCTOR service in prior admissions. At baseline he is on a modified diet and is a known high risk of aspiration complications. He has had several re-admissions for aspiration pneumonia and hypoxic respiratory failure in the past year. He was admitted yesterday 02/16 with bilateral aspiration pneumonia and acute hypoxemic respiratory failure. He also has pressure ulcer, with some debate from home health nurse and palliative care if this is a Reynaldo ulcer or not. Palliative recently visited Ed on request of home health due to ulcer as they thought he may be more appropriate for hospice, however, patient/family were not interested in pursuing hospice at that time. MBSS from 10/2023 indicated moderate to severe oral pharyngeal sensorimotor dysphagia with delayed swallow onset and gross discoordination, resulting in silent aspiration with thin and mildly thick liquids. Thicker liquids resulted in prolonged swallow initiation, with silent aspiration from spillover from pyriforms. A chin tuck also increased quantity of aspiration (suspect increased coordination demands negatively impacting swallow function). See report for more information. ENGLISH INSTRUCTOR team recommended L5 minced/moist solids and thin liquids with strict aspiration precautions, including close supervision, bolt upright positioning, oral care before/after meals, and small single bites/sips. ENGLISH INSTRUCTOR IMPRESSIONS & RECOMMENDATIONS: Ed presents this date with increased lethargy, and severe oral-pharyngeal dysphagia, characterized by increased delays in swallow initiation and difficulty managing thin liquids in the oral phase. At baseline he was known to aspirate with both thick and thin liquids, but this was minimized with strict aspiration precautions such as very small sip size, 1:1 supervision, bolt upright positioning and strict oral care precautions. Given current presentation, documented baseline dysphagia severity, and repeat hospitalizations from aspiration pneumonia, it is highly likely that he will continue to decline with repeat illnesses exacerbated by inactivity. Discussions with palliative care and family in the past have been inconclusive regarding feeding tube placement in the past. Overall, Ed is considered to be at continued chronic high risk for aspiration, currently exacerbated by deconditioned status. Recommend initiate PO in small amounts, as outlined below, with very strict aspiration precautions in place. Recommend discontinue PO with decline in status, worsening respiratory status, or with frequent overt symptoms of aspiration. FURTHER INPATIENT ENGLISH INSTRUCTOR SERVICES: Patient to be followed while on unit Suggested Referrals/Consults: Palliative Care [employer] Fabricating Supervisor DISCHARGE RECOMMENDATIONS: Recommend ENGLISH INSTRUCTOR services at home health Diet Recommendations: Small amounts - for pleasure/therapy. 4-6oz snacks frequently SOLIDS: 4-Pureed Solids (applesauce, jello, Ensure thickened to be pudding consistency) LIQUIDS: 0-Thin Liquids via tsp or straw (supervised), Ice chips OK for pleasure too MEDICATIONS: Crushed (whole if v small) in applesauce or pudding. Alter medications only as advised by MD or Pharmacist Level of Assistance/Supervision: 1:1 close supervision/assist for all PO intake Positioning and environment: PO intake only when awake/alert? Reduce auditory and/or visual distractions when eating [place] upright for all PO intake. Maintain upright position 30 min after PO intake Do NOT leave drinks within reach when patient is unattended, especially when HOB is not fully upright. Oral hygiene Before/after PO intake Using suction swab kits on all oral structures as tolerated Strategies/Adaptations/Assistive Equipment: VERY Small sips, via straw. Patient must be upright Do not leave patient unattended with drinks within reach especially when HOB is not upright. Small bites Slow rate of intake Alternate intake of liquids and solids Ensure mouth is clear before proceeding Education Provided to: Nursing Patient Topics Addressed: definition and impacts of aspiration impact of current diagnoses on swallow function overt s/sx to monitor for re: potential aspiration of food / liquids relationship between respiratory function and deglutition rationale and instruction for additional risk management strategies as above SUBJECTIVE: Patient received: alert/awake, lethargic. Agreeable to evaluation. Pain Reported n/a Baseline Swallow Function: See HPI. Patient does not provide subjective. OBJECTIVE Patient positioning: As upright as possible using HOB/bed tilt controls Oral care: Medical Office Assistant assisting to complete oral care prior to PO trials Respiratory status: appears mildly dyspneic Orientation/Mental status: unable to obtain Speech: no verbalizations Oral Mechanism Examination: Unable to elicit due to comprehension deficits/fatigue PO Intake: Trials Assessed: IDDSI 0 Thin Liquids IDDSI 2 Mildly Thick Liquid IDDSI 4 Puree Solid Medications administered by RN (small whole pill and crushed tablet in tsp pudding) Oral Phase Findings: Anterior leakage from mouth Difficulty with bolus manipulation Difficulty with a-p transport Residue Pharyngeal Phase Findings: Delayed swallow initiation Reduced hyolaryngeal elevation/excursion Cough after swallow (observed from hallway, patient was sipping water from cup with straw while semi-reclined) Esophageal Phase Findings: ? Belching observed ? [place] Swallow Protocol Results: FAIL ? S/sx aspiration observed PLAN: Frequency: 2-3x/week for 1-2 weeks or while inpt. Goals: Mcfp Goals: Patient will remain free from aspiration-related illness, malnutrition, and dehydration. Short Term Goals: Patient will tolerate Puree Diet and Thin liquids without overt s/s aspiration across 2/2 visits. Patient will tolerate PO trials for consideration of diet upgrade without overt s/s aspiration across 2/2 visits. ENGLISH INSTRUCTOR CPT Code: 77709 Clinical Swallowing Evaluation
[2025-02-17] MEDS: fentaNYL 100 MCG PATCH TD (15:28)
[2025-02-17] MEDS: Pantoprazole 40 MG TABCR PO (16:26)
--- NOTE | 2025-02-17 18:30 | PGE_ITS ---
Date of Service Date of service: 02/17/25 Time of Service: 12:00 Assessment and Plan Assessment and plan (1) Acute hypoxemic respiratory failure: Status: Acute Assessment and plan: Home health nurses concerned for infection of his wounds. He was hypoxic in the ED and was admitted with O2 supplementation and IV ceftriaxone and Flagyl to be continued. Consider expanding antibiotic coverage if his status worsens. He does not want to be seen by palliative care this visit. He does not want to discuss hospice or comfort measures. I did discuss this with he and his son and they are clear they do not want any of these services at this time. I did share with them the benefits; they continued to decline. He is a DNR/DNI. (2) Pneumonia, aspiration: Assessment and plan: This appears recurrent Speech therapy eval for swallow and appropriate food texture. Follow-up blood cultures and adjust antibiotic therapy accordingly. (3) Bilateral pneumonia: Assessment and plan: Continue IV antibiotic therapy and consider expanding if needed. Consider cefepime and vancomycin with a history of MRSA. 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 Glargine dose will be continued as outpatient if patient is stable which is given at night. (6) Stage II pressure ulcer: Status: Chronic Assessment and plan: Continue wound care with nursing. This is chronic and unlikely to resolve with patient's condition of immobility with his left CVA. 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 Continue skin care. (8) Episodes of staring: Status: Chronic Assessment and plan: Patient is on antiseizure medication which will be continued (9) Opiate dependence, continuous: Status: Chronic Assessment and plan: Patient is on chronic narcotics with a fentanyl patch and oral short acting narcotics. (10) Generalized anxiety disorder: Status: Chronic Assessment and plan: Continue Ativan as given as outpatient as needed with caution since patient is on high-dose narcotics as well. (11) Hypothyroidism (acquired): Status: Chronic Assessment and plan: TSH 3.69 and continue outpatient levothyroxine dosing. Subjective Subjective Patient reports: no new complaints, feels better, tolerating liquids well and afebrile; denies flatus, diarrhea, nausea or vomiting Interval history since last seen: Semifowlers in bed, not wanting to participate in care, declining medications - son was called and he came in to assist with medication and feeding. Exam Narrative Exam Narrative: Frail, chronically ill-appearing male in no acute distress, ,awake, alert nods appropriately to questions, does not speak from previous stroke. Head is atraumatic Respirations are even and unlabored Cardiovascular regular rate and rhythm well-perfused Abdomen no guarding soft deferred - uses condom cath Extremities are without edema Oral mucosa slightly dry neck with no JVD full range of motion Eyes nonicteric noninjected Skin with multiple pressure areas please see nursing wound assessment for description and sites. Objective Last Vital Signs Temp 36.8 C 02/17/25 15:01 Pulse 81 02/17/25 12:05 Resp 18 02/17/25 12:05 BP 139/52 L 02/17/25 12:05 Pulse Ox 96 02/17/25 12:05 Laboratory Results - last 24 hr 02/16/25 02/16/25 02/16/25 19:53 22:18 22:51 WBC 6.26 RBC 4.05 L Hgb 12.0 L Hct 38.0 L MCV 94 MCH 29.6 MCHC 31.6 L RDW 15.8 H Plt Count 322 MPV 9.8 Immature Gran % 0.3 Neutrophils % 72.0 Lymphocytes % 18.2 Monocytes % 6.1 Eosinophils % 2.6 Basophils % 0.8 Nucleated RBC % 0.0 Absolute Neutrophils 4.51 Absolute Lymphocytes 1.14 L Absolute Monocytes 0.38 Absolute Eosinophils 0.16 Absolute Basophils 0.05 PT 10.8 INR 1.1 VBG pH 7.36 VBG pCO2 54 H VBG pO2 23 VBG HCO3 31 H VBG Total CO2 29 VBG O2 Saturation 31 VBG Base Excess 5 H Sodium 140 Potassium 4.5 Chloride 105 Carbon Dioxide 30.5 Anion Gap 4.5 BUN 33 H Creatinine 1.0 Est GFR (CKD-EPI 2020) 79.97 Glucose 203 H Calcium 9.1 Magnesium 2.0 Total Bilirubin 0.5 AST 28 ALT 20 Alkaline Phosphatase 125 H Total Protein 9.3 H Albumin 2.3 L TSH 3.69 Urine Color Urine Clarity Urine pH Ur Specific [place] Urine Protein Urine Ketones Urine Blood Urine Nitrite Urine Bilirubin Urine Urobilinogen Ur Leukocyte Esterase Urine RBC Urine WBC Ur Epithelial Cells Urine Crystals Urine Bacteria Urine Casts Urine Mucus Urine Other Ur Culture Indicated? Urine Glucose Urine Opiates Screen Positive A Urine Methadone Screen Negative Ur Barbiturates Screen Negative Ur Tricyclics Screen Negative Ur Amphetamines Screen Negative U Benzodiazepines Scrn Negative Urine Cocaine Screen Negative Ur THC Screen Positive A COVID-19 Source Nasopharynx SARS-CoV-2 (PCR) Negative Influenza Type A (PCR) Negative Influenza Type B (PCR) Negative RSV (PCR) Negative 02/17/25 02/17/25 03:00 06:50 WBC 24.83 H RBC 3.46 L Hgb 10.4 L Hct 32.4 L MCV 94 MCH 30.1 MCHC 32.1 RDW 15.8 H Plt Count 290 MPV 10.2 Immature Gran % Neutrophils % Lymphocytes % Monocytes % Eosinophils % Basophils % Nucleated RBC % Absolute Neutrophils Absolute Lymphocytes Absolute Monocytes Absolute Eosinophils Absolute Basophils PT INR VBG pH VBG pCO2 VBG pO2 VBG HCO3 VBG Total CO2 VBG O2 Saturation VBG Base Excess Sodium 144 Potassium 3.8 Chloride 110 H Carbon Dioxide 26.5 Anion Gap 7.5 BUN 35 H Creatinine 0.9 Est GFR (CKD-EPI 2020) 90.74 Glucose 154 H Calcium 8.4 L Magnesium 1.7 Total Bilirubin 0.6 AST 22 ALT 6 L Alkaline Phosphatase 96 Total Protein 7.4 Albumin 1.8 L TSH Urine Color Dark Yellow Urine Clarity Clear Urine pH 5.5 Ur Specific [place] >= 1.030 H Urine Protein >=300 H Urine Ketones 15 H Urine Blood Large H Urine Nitrite Negative Urine Bilirubin Negative Urine Urobilinogen 0.2 Ur Leukocyte Esterase Negative Urine RBC 20-50 H Urine WBC 3-5 Ur Epithelial Cells Negative Urine Crystals Negative Urine Bacteria Few Urine Casts 3-5 Hyaline Urine Mucus Moderate Urine Other Rare Yeast Ur Culture Indicated? No Urine Glucose Negative Urine Opiates Screen Urine Methadone Screen Ur Barbiturates Screen Ur Tricyclics Screen Ur Amphetamines Screen U Benzodiazepines Scrn Urine Cocaine Screen Ur THC Screen COVID-19 Source SARS-CoV-2 (PCR) Influenza Type A (PCR) Influenza Type B (PCR) RSV (PCR) Time Spent with Patient Time Spent with Patient: 25-34 minutes Time was spent: preparing to see the patient(eg.review tests), ordering medications,tests, procedures, referring, communicating with other health healthcare project manager, indepentently interpreting results, counseling the patient and care coordination
[2025-02-17] MEDS: Carvedilol 6.25 MG TAB PO (19:51)
[2025-02-17] MEDS: Docusate Sodium 100 MG CAP PO (19:51)
[2025-02-17] MEDS: Atorvastatin 40 MG TAB 80 MG PO (19:52)
[2025-02-17] MEDS: levETIRAcetam 250 MG TAB PO (19:52)
[2025-02-17] MEDS: Divalproex 500 MG TABEC PO (19:52)
[2025-02-17] MEDS: Insulin Glargine 300 UNITS/3 ML PEN 20 UNITS SC (19:53)
[2025-02-17 21:15] LABS: MRSA PCR Negative (Negative)
[2025-02-17] MEDS: cefTRIAXone 1 GM/50 ML BAG IVPB (21:21)
[2025-02-18 03:10] VITALS: BP 110/50; PULSE 83; RESP 20; TEMP 36.7; O2SAT 95
[2025-02-18] MEDS: metroNIDAZOLE 500 MG/100 ML BAG 100 MG IVPB ×2 (03:12→10:01)
[2025-02-18 07:41] VITALS: BP 126/57; PULSE 83; RESP 16; TEMP 36.4; O2SAT 93
[2025-02-18] MEDS: Carvedilol 6.25 MG TAB PO (07:55)
[2025-02-18] MEDS: ARIPiprazole 5 MG TAB 10 MG PO (07:55)
[2025-02-18] MEDS: Docusate Sodium 100 MG CAP PO (07:55)
[2025-02-18] MEDS: Pantoprazole 40 MG TABCR PO ×2 (07:55→16:08)
[2025-02-18] MEDS: levETIRAcetam 250 MG TAB PO (07:55)
[2025-02-18] MEDS: Divalproex 500 MG TABEC PO (07:55)
[2025-02-18] MEDS: Gabapentin 100 MG CAP PO ×2 (07:55→14:13)
[2025-02-18] MEDS: Normal Saline Flush 10 ML SYR IVP ×2 (07:56→20:49)
[2025-02-18] MEDS: Insulin Aspart 300 UNITS/3 ML PEN SC ×4 (07:57→20:47)
[2025-02-18] MEDS: Aspirin E.C. 81 MG TABEC PO (08:01)
[2025-02-18 11:14] VITALS: BP 104/42; PULSE 79; RESP 14; TEMP 36.8; O2SAT 96
--- NOTE | 2025-02-18 11:23 | PGE_ITS ---
Date of Service Date of service: 02/18/25 Time of Service: 11:23 Assessment and Plan Assessment and plan (1) Acute hypoxemic respiratory failure: Status: Acute Assessment and plan: Resolving - no O2 supplementation at this time Initially presented to the ED s/p \[facility] health nurses w concerns for infection of his woundsm, was hypoxic on arrival to the ED and was admitted with O2 supplementation Blood C&S negative IV ceftriaxone and Flagyl stopped Now on oral Levaquin Refused be seen by palliative care this visit and discussion hospice or comfort measures as of 02/17/25. Provider also discussed w patient and his son despite sharing the beneficial aspects with them; they continued to decline. Remnains DNR/DNI. (2) Pneumonia, aspiration: Assessment and plan: This appears recurrent Speech therapy eval for swallow and appropriate food texture. Blood cultures negative at 24 H. (3) Bilateral pneumonia: Assessment and plan: Transitioned to oral Levaquin and observe overnight then d/c on short course F/u with ID or pulmonology for discussion regarding chronic antibiotic d/t multiple admission with PNA Continue IV antibiotic therapy and consider expanding if needed. History of MRSA nares and wound - MRSA PCR negative 02/17/25 . 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 Continue Glargine dose - to be will be continued as outpatient if patient is stable which is given at night. (6) Stage II pressure ulcer: Status: Chronic Assessment and plan: Chronic on bedridden patient and unlikely to resolve with patient's condition of immobility with his left CVA. Continue wound care with nursing. 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 Ongoing skin care. Turn Q2 hours (8) Episodes of staring: Status: Chronic Assessment and plan: Continue home antiseizure medication (9) Opiate dependence, continuous: Status: Chronic Assessment and plan: Chronic narcotics use no longer on Methadone Ongoing fentanyl patch and oral short acting narcotics. (10) Generalized anxiety disorder: Status: Chronic Assessment and plan: Continue home dose Ativan as given with caution d/t high-dose narcotics as well. (11) Hypothyroidism (acquired): Status: Chronic Assessment and plan: TSH 3.69 On outpatient Levothyroxine dosing. Discussed with Subjective Subjective Patient reports: no new complaints, feels better, tolerating liquids well, tolerating a regular diet, voiding w/o difficulty, bowel movement and diarrhea; denies nausea, vomiting, shortness of breath or fever Exam Narrative Exam Narrative: Frail, chronically ill-appearing male in no acute distress, ,awake, alert nods appropriately to questions, expressive aphasia and right-sided hemiplegia from previous stroke. 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 Objective Last Vital Signs Temp 36.8 C 02/18/25 11:14 Pulse 79 02/18/25 11:14 Resp 14 02/18/25 11:14 BP 104/42 L 02/18/25 11:14 Pulse Ox 96 02/18/25 11:14 Laboratory Results - last 24 hr 02/17/25 18:45 MRSA (TEM-PCR) Negative Time Spent with Patient Time Spent with Patient: >50 minutes Time was spent: preparing to see the patient(eg.review tests), obtaining and/or reviewing separately otained hiistory, ordering medications,tests, procedures, referring, communicating with other health medicare contact specialist, indepentently interpreting results, counseling the patient and care coordination
--- NOTE | 2025-02-18 11:47 | PHACLINREV_ITS ---
Pharmacy Admission Review Admission Clinical Review Admission Pharmacy Review: Acute hypoxemic respiratory failure (Acute) Penicillins Allergy (Unknown, Verified 02/16/25 18:20) Unknown codeine Adverse Reaction (Verified 02/16/25 18:20) itching and bloutchy pentazocine lactate (From [place]) Adverse Reaction (Verified 02/16/25 18:20) makes me deathly ill Resuscitation Status DNR/DNI Height 6 ft 3 in Weight 62.3 kg Pharmacy Admission Review Renal Dosing Renal Dosing: BUN 35 mg/dL (7-18) H 02/17/25 06:50 Creatinine 0.9 mg/dL (0.70-1.30) 02/17/25 06:50 Medications needing adjustments: Reviewed (CrCl 58.8 mL/min) List of meds needing interventions: Current medications are okay Anticoagulation Anticoagulation: Hgb 10.4 g/dL (13.5-17.5) L 02/17/25 06:50 Hct 32.4 % (40.0-50.0) L 02/17/25 06:50 Plt Count 290 10^3/uL (130-400) 02/17/25 06:50 INR 1.1 (0.9-1.1) 02/16/25 19:53 Creatinine 0.9 mg/dL (0.70-1.30) 02/17/25 06:50 DVT Prophylaxis: Reviewed Medications: Enoxaparin (40mg daily) Opiate Usage Evaluate Pain Scale/Pains Meds: Reviewed (Fentanyl 100mcg patch) Scheduled Bowel Reg ordered if on Opiates?: Yes (docusate + PRN Miralax) Relevant Labs Relevant Labs: Sodium 144 mmol/L (136-145) 02/17/25 06:50 Potassium 3.8 mmol/L (3.5-5.1) 02/17/25 06:50 Chloride 110 mmol/L (98-107) H 02/17/25 06:50 Magnesium 1.7 mg/dL 02/17/25 06:50 Electrolytes, C-Reactive P, ESR: Reviewed (labs pending) DM Control DM Control: Glucose 154 mg/dL (74-106) H 02/17/25 06:50 Finger Stick Blood Glucose 305 1117 Finger Stick Blood Glucose 305 1117 Finger Stick Blood Glucose 177 0757 Finger Stick Blood Glucose 188 0748 Finger Stick Blood Glucose 188 0748 DM Control: Reviewed Insulin Dosing, Diabetic Medication: Has order for SS insulin and glargine 20 units at bedtime Cardiac Review Cardiac Review: Blood Pressure 104/42 1114 Blood Pressure 126/57 0741 Blood Pressure 110/50 0310 BP, HR, EF%: Reviewed (HR WNL) List meds needing interventions: Has order for carvedilol 6.25mg BID and meto prolol 5mg IVP PRN HR > 120 or SBP > 180 - one dose given yesterday at 0011 QTc Review QTc: Reviewed (473 from 01/28/25) IV to PO Switch IV Medications: Reviewed (APAP, ceftriaxone, metoprolol (PRN) and metronidazole) Home Meds Home Med List reviewed: Reviewed Relevent Home Meds Not ordered & why?: Proair (PRN), morphine (PRN) and Narcan (PRN) Current Meds Current Medication Order Review: Intervened Comments: Added IV access order set Pharmacy Antibiotic Review Relevant Labs: WBC 24.83 10^3/uL (4.4-10.8) H 02/17/25 06:50 Temperature 36.8 C Temperature 36.4 C Temperature 36.7 C Microbiology 02/16/25 22:07 Blood Culture - Preliminary Blood NO GROWTH 24 HOURS 02/16/25 19:53 Blood Culture - Preliminary Blood NO GROWTH 24 HOURS Pharmacy Antibiotic Activity: C/S review and Reviewed, no change Comments: Patient is on ceftriaxone and metronidazole, day 2, for aspiration pneumonia. MRSA swab from 02/17/25 at 1845 was negative. WBC level for today pending.
[2025-02-18 12:27] LABS: HCT 25.4 % (40.0-50.0); HGB 8.4 g/dL (13.5-17.5); MCH 30.7 pg (27.0-33.0); MCHC 33.1 % (32.0-36.0); MCV 93 fL (80-95); MPV 10.5 fL (8.0-11.0); Platelet Count 199 10^3/uL (130-400); RBC 2.74 10^6/uL (4.36-5.78); RDW 16.6 % (11.8-14.1); RDW-SD 55.4 fL; WBC 12.81 10^3/uL (4.4-10.8)
[2025-02-18 12:45] LABS: ALT 12 U/L (16-63); AST 18 U/L (15-37); Albumin 1.5 g/dL (3.4-5.0); Alkaline Phosphatase 82 U/L (46-116); Anion Gap 5.7 mmol/L (3-11); BUN 40 mg/dL (7-18); Bilirubin, Total 0.3 mg/dL (0.2-1.0); CO2 27.3 mmol/L (21.0-32.0); Calcium 8.2 mg/dL (8.5-10.1); Chloride 108 mmol/L (98-107); Estimated GFR 79.97 (mL/min/1.73m2); Glucose 277 mg/dL (74-106); Magnesium 1.7 mg/dL; Sodium 141 mmol/L (136-145); Total Protein 6.5 g/dL (6.4-8.2)
[2025-02-18 15:02] VITALS: BP 125/52; PULSE 82; RESP 16; TEMP 36.6; O2SAT 94
[2025-02-18] MEDS: ACETAMINOPHEN 1,000 MG/100 ML BAG 400 MG IVPB (16:08)
[2025-02-18] MEDS: LORazepam 1 MG TAB PO (16:08)
[2025-02-18] MEDS: levoFLOXacin 500 MG, levoFLOXacin 250 MG 750 MG PO (16:09)
--- NOTE | 2025-02-18 17:48 | PDOC.CMPRO ---
Date of service: 02/18/25 Time of Service: 17:48 Care Management Progress Note Progress Note Text Progress Note Text: Ed was busy with his RN when CM attempted to meet with him. Per RN, he refused labs this morning, but agreed to them later in the day. Per report, his WBC reduced from 24 to 12. He was receiving IV antibiotics, which was changed to oral medication today. Per report, he will be observed overnight on oral Levaquin, and will likely be discharged tomorrow, if he continues to show improvement. He will require EMS transport due to his bedbound status. CM will continue to follow. Discharge Potential Discharge Needs: PCP F/U Appt (home visit scheduled for next week) Anticipated Barriers to Discharge: None Identified Patient/Family Education Needs: Review discharge instructions, discuss Ask Me Three Transportation: EMS Plan: Anticipate Ed will return home once medically cleared with a resumption of RN, PT. He will transport via EMS. He will resume caregiver support by his son as well. He will follow up with his PCP and discharge plan of care. CM will continue to follow. Social Determinants of Health Screening Will the Patient Participate in the Screening?: Unable to obtain Do you worry about having a steady place to live?: no
[2025-02-18 20:12] VITALS: BP 113/54; PULSE 83; RESP 16; TEMP 36.6; O2SAT 94
[2025-02-18] MEDS: Enoxaparin 40 MG/0.4 ML SYR SC (20:47)
[2025-02-18] MEDS: Insulin Glargine 300 UNITS/3 ML PEN 20 UNITS SC (20:48)
[2025-02-18 23:08] VITALS: BP 137/65; PULSE 78; RESP 19; TEMP 36.2; O2SAT 94
[2025-02-19 02:47] VITALS: BP 138/62; PULSE 83; RESP 20; TEMP 37; O2SAT 97
[2025-02-19 08:08] VITALS: BP 132/69; PULSE 84; RESP 16; TEMP 36.3; O2SAT 96
[2025-02-19] MEDS: Normal Saline Flush 10 ML SYR IVP (08:41)
[2025-02-19] MEDS: ACETAMINOPHEN 1,000 MG/100 ML BAG 400 MG IVPB (10:02)
[2025-02-19] MEDS: LORazepam 1 MG TAB PO (10:03)
[2025-02-19] MEDS: levoFLOXacin 500 MG, levoFLOXacin 250 MG 750 MG PO (10:03)
[2025-02-19 11:58] VITALS: BP 111/57; PULSE 84; RESP 16; TEMP 36.3; O2SAT 94
[2025-02-19] MEDS: Insulin Aspart 300 UNITS/3 ML PEN SC (12:23)
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
[2025-02-19 15:27] VITALS: BP 123/54; PULSE 78; RESP 16; TEMP 36.7; O2SAT 94
--- NOTE | 2025-02-19 16:13 | PDOC.CMDIS ---
Date of service: 02/19/25 Time of Service: 16:13 LACE Index Scoring Tool Questions: Length of Stay (in days): 3 Was the patient admitted via the E.D.?: Yes Comorbidities: Cerebrovascular Disease, Diabetes w/o Complication, Chronic Pulmonary Disease and Liver or Renal Disease E.D. Visits: 3 Answers: Total Score: 14 Risk of Readmission: High Risk Care Management Discharge Plan Reason for Hospitalization: aspiration pneumonia Discharge Plan: Ed will be discharged home with a resumption of home health services for nursing. He will follow up with his community providers and plan of care and transport via EMS coordinated by CM. Patient/Family Education Needs: review of discharge instructions, limitations, follow up plan and discuss Ask Me Three Services Needed at Discharge: Home Health Care Services SDOH Health Related Social Needs: No Data to Display
== END 2025-02-19 17:22 | disposition home health service (06) ==
LOC: ER 20:46 → MS 22:52
PROVIDERS: Nurse Practitioner Family; Admitting Provider Family Medicine; Emergency Provider Emergency Medicine; PCP Nurse Practitioner Family; Responsible Provider Nurse Practitioner Acute Care; Visit Provider Family Medicine
DX: J96.01 Acute respiratory failure with hypoxia (principal); J69.0 Pneumonitis due to inhalation of food and vomit; R33.9 Retention of urine, unspecified; E11.42 Type 2 diabetes mellitus with diabetic polyneuropathy; E11.65 Type 2 diabetes mellitus with hyperglycemia; Z79.4 Long term (current) use of insulin; L89.152 Pressure ulcer of sacral region, stage 2; I69.951 Hemiplegia and hemiparesis following unspecified cerebrovascular disease affecting right dominant side; F11.20 Opioid dependence, uncomplicated; F41.1 Generalized anxiety disorder; E03.9 Hypothyroidism, unspecified; T74.01XA Adult neglect or abandonment, confirmed, initial encounter; Z79.82 Long term (current) use of aspirin; D64.9 Anemia, unspecified; R13.10 Dysphagia, unspecified; I10 Essential (primary) hypertension; J45.909 Unspecified asthma, uncomplicated; I65.22 Occlusion and stenosis of left carotid artery; R91.1 Solitary pulmonary nodule; Z66 Do not resuscitate; Z86.14 Personal history of Methicillin resistant Staphylococcus aureus infection
CPT/HCPCS: 00123; 36415; 80053; 80307; 82805; 85027; 87040; 87637; 87641; 92610; 96361; 96365; 96366; 96367; 96372; 96375; 99285; J1650; 71045; 81003; 81015; 83735; 84443; 85025; 85610; 99223; 99232; 99233; 99239; G0378; J0131; J0696; J1815; J1836

== ENCOUNTER 2025-03-10 09:51 | Inpatient (IN) | payer MEDICARE, MEDICAID, SELFPAY ==
[2025-03-10] VITALS (78 sets, daily range): BP systolic 75–179; BP diastolic 42–138; PULSE 49–117; RESP 9–30; TEMP 35.2–37.2; O2SAT 13–100
--- NOTE | 2025-03-10 09:45 | RT.EKG_ITS ---
APPROVED REPORT Exam: Resting ECG Reason for Exam: respiratory distress Patient Location: E HR:117 bpm ECG Measurements Heart Rate 117 AXIS VA 168 P 81 QRSd 88 QRS 256 QT 323 T 63 QTc 451 Conclusion Sinus tachycardia...rate> 99 Markedly posterior QRS axis...late V-lead transition Borderline ST depression, anterolateral leads...ST <-0.07mV, I aVL V2-V6
--- NOTE | 2025-03-10 10:15 | DI.RAD_ITS ---
Exam(s) XR PORTABLE CHEST AP EXAM: XR PORTABLE CHEST AP CLINICAL HISTORY: cough. TECHNIQUE: 2D digital imaging was performed. COMPARISON: CR,XR XR PORTABLE CHEST AP from 02/16/2025 FINDINGS: Single AP portable view. Heart size is normal. The mediastinum is not widened. Bilateral interstitial infiltrate appears slightly progressed from previous in the left lower lobe re trocardiac region and right parahilar region. There are no obvious pleural effusions.. IMPRESSION: Increasing interstitial infiltrates bilaterally. No obvious pleural effusions DATA REPOSITORY: RADIATION DOSE DELIVERED:
[2025-03-10 10:50] LABS: Abs Immature Grans 0.13 10^3/uL (0.0-0.06); Absolute Basophil Count 0.13 10^3/uL (0.0-0.2); Absolute Monocyte Count 1.27 10^3/uL (0.1-0.8); Basophils % 0.6 %; HCT 35.2 % (40.0-50.0); HGB 10.8 g/dL (13.5-17.5); Immature Grans % 0.6 %; Lymphocytes % 4.2 %; MCH 29.8 pg (27.0-33.0); MCHC 30.7 % (32.0-36.0); MCV 97 fL (80-95); MPV 9.5 fL (8.0-11.0); Monocytes % 5.7 %; Neutrophils % 88.9 %; Platelet Count 396 10^3/uL (130-400); RBC 3.62 10^6/uL (4.36-5.78); RDW-SD 57.2 fL; WBC 22.24 10^3/uL (4.4-10.8)
[2025-03-10 10:51] LABS: Absolute Lymphocyte Count 0.93 10^3/uL (1.2-3.4); Absolute Neutrophil Count 19.77 10^3/uL (1.2-6.7); BE (Venous) 9 mmol/L (-2-3); HCO3 (Venous) 34 mmol/L (23-28); O2 Sat (Venous) 31 %; TCO2 (Venous) 32 mmol/L (24-29); pCO2 (Venous) 60 mmHg (41-51); pH (Venous) 7.37 (7.31-7.41); pO2 (Venous) 22 mmHg
[2025-03-10] MEDS: cefTRIAXone 2 GM/50 ML BAG IVPB (10:53)
[2025-03-10 10:54] LABS: Lactate 2.2 mmol/L (<or=2.0)
[2025-03-10 11:20] LABS: ALT 13 U/L (16-63); AST 32 U/L (15-37); Albumin 1.5 g/dL (3.4-5.0); Alkaline Phosphatase 112 U/L (46-116); Anion Gap 2.7 mmol/L (3-11); BUN 41 mg/dL (7-18); Bilirubin, Total 0.5 mg/dL (0.2-1.0); CO2 33.3 mmol/L (21.0-32.0); Calcium 8.7 mg/dL (8.5-10.1); Chloride 110 mmol/L (98-107); Estimated GFR 79.47 (mL/min/1.73m2); Glucose 90 mg/dL (74-106); Potassium 3.6 mmol/L (3.5-5.1); Sodium 146 mmol/L (136-145); Total Protein 7.8 g/dL (6.4-8.2)
[2025-03-10] MEDS: Normal Saline - Diluent 50 ML VIAL IJ (11:49)
[2025-03-10] MEDS: Omnipaque 350 MG/ML 100 ML BTL 70 ML IJ (11:51)
--- NOTE | 2025-03-10 12:06 | DI.CT_ITS ---
Exam(s) CT CHEST PE CTA EXAM: CT CHEST PE CTA CLINICAL HISTORY: right arm swelling, SOB, hypoxia. TECHNIQUE: Imaging Protocol: CT angiography of the chest was performed using pulmonary embolus santosh col. Multi planar reconstructions were performed. CONTRAST MATERIAL: Intravenous: Omnipaque 350 Contrast volume: 70 cc COMPARISON: CT CT CHEST PE CTA from 01/28/2025 FINDINGS: CHEST: PULMONARY ARTERIES: There are no intraluminal filling defects to suggest acute pulmonary emboli. LUNGS: Compared to the CT scan of 01/28/2025 there is significant increase in amount of patchy and co nfluent infiltrate in the left lower lobe. There is also increased adenopathy in the left hilum and subcarinal region. x There is relative sparing of the left upper lobe and lingular segment. There is no pleural effusion on the left side.. On the opposite-right side there is a small-moderate size ri ght pleural effusion which has slightly decreased in size from 01/28/2025 the amount of infiltrate in the right lower lobe has decreased from the CT scan 01/28/2025 and there is some flow further expans ion of the previously atelectatic right lower lobe basal segments. However, on the present study the re are now scattered patchy infiltrate is noted in the right upper lobe and right middle lobe, more s o than on the previous study. There appears to be some central cavitation of some of the patchy infi ltrates in the right upper lobe. MEDIASTINUM: There are enlarged lymph nodes in the left hilum and subcarinal region again noted, incr eased from previous.; Less in the right hilum. CARDIAC: Heart size is upper normal. There is no pericardial effusion.z the thoracic aorta is athero sclerotic but not dilated and there is no evidence of aortic dissection. There is, however, signific ant plaque in the aortic arch which involves the origin of the left subclavian artery and distal arch . There is no narrowing of the origin of the brachiocephalic and left common carotid arteries off th e arch there is no significant shift of the interventricular septum. PARTIALLY VISUALIZED UPPERMOST ABDOMEN: Left adrenal gland unremarkable. There is a nodule in the ri ght adrenal gland measuring 3 by 2.5 cm. Average density units are less than 10 HU and therefore may be a benign incidental adenoma. This is unchanged from CT scan of 01/28/2025. OSSEOUS: No significant osseous lesions.No new fractures identified.. IMPRESSION: 1. No evidence of acute pulmonary emboli. No evidence of aortic dissection. 2. When compared to the most recent CT scan of 01/28/2025 the right pleural effusion has slightly dec reased in size and the amount of infiltrate in the right lower lobe has significantly decreased, jesus edyta, there is now been significant increase in amount of infiltrate in the left lower lobe (no left p leural effusion) and in the right upper lobe, as described above. 3. There is increasing left hilar and subcarinal adenopathy. There is no adenopathy in the anterior mediastinal fat nor paratracheal adenopathy. No new significant osseous findings in the chest. RADIATION DOSE DELIVERED: 101.79mGy.cm Total DLP DATA REPOSITORY: All CT scans at this facility are submitted to the National Radiology Data Registry (NRDR) Dose Index Registry (DIR) with the [employer] (ACR). RADIATION OPTIMIZATION: All CT scans at this facility use at least one of these dose optimization te chniques: automated exposure control; mA and/or kV adjustment per patient size (includes targeted exa ms where dose is matched to clinical indication); or iterative reconstruction.
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
[2025-03-10 12:54] LABS: Magnesium 2.1 mg/dL (1.8-2.4)
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
[2025-03-10] MEDS: fentaNYL 100 MCG PATCH TD (15:59)
[2025-03-10] MEDS: LORazepam 1 MG TAB PO (16:00)
[2025-03-10] MEDS: Acetaminophen 500 MG TAB 1000 MG PO ×2 (16:00→21:44)
[2025-03-10] MEDS: Gabapentin 100 MG CAP PO ×2 (16:01→21:45)
[2025-03-10] MEDS: Normal Saline Flush 10 ML SYR IVP ×2 (16:01→23:50)
[2025-03-10] MEDS: Enoxaparin 40 MG/0.4 ML SYR SC (16:01)
[2025-03-10] MEDS: Albuterol/Ipratropium 3 ML UPD VIAL UPD ×2 (16:13→21:06)
--- NOTE | 2025-03-10 18:33 | W.POCUS ---
Pocus Exam Limited Vascular Exam DATE OF EXAM: 03/10/25 TIME OF EXAM: 16:00 PROVIDER THAT PERFORMED THE STUDY: John Redding IS THIS A REPEAT EXAM DURING THIS ENCOUNTER: No Vascular Exam: Right upper extremity REASON FOR EXAM: Right arm pain (on mobilization) and Other (Swelling ) indication: Swollen RUE VISUALIZED STRUCTURES: right axillary vein, Right brachial vein and Right cephalic vein PERTINENT FINDINGS/IMPRESSION: Complete compressibility right upper extremity and No apparent abnormalities (no intravascular opacities seen, good doppler flow) Exam complete DIFFERENTIAL DIAGNOSES: Lymphedema, DVT INCIDENTAL FINDINGS: Subcutaneous cobble stone aspect- most likely d/t lymphedema, no abscess visualization Discussed with Dr Childers
[2025-03-10 20:07] LABS: MRSA PCR Positive (Negative)
[2025-03-10 20:51] LABS: BE 8 mmol/L (-2-3); HCO3 32 mmol/L (22-26); pCO2 51 mmHg (35-45); pH 7.41 (7.35-7.45); pO2 190 mmHg (80-105); tCO2 31 mmol/L (23-27)
[2025-03-10 20:54] LABS: FIO2 80 %; Site Left Radial
[2025-03-10 20:55] LABS: sO2 > 99 % (95-98)
[2025-03-10] MEDS: AZITHROMYCIN 500 MG in Normal Saline 250 ML 250 MG IVPB (21:00)
[2025-03-10] MEDS: MORPHine 4 MG/ML SYR IVP (21:00)
[2025-03-10] MEDS: VANCOMYCIN/WATER (PEG) 2 GM/400 ML BAG IVPB (21:24)
[2025-03-10] MEDS: Pantoprazole 40 MG VIAL IVP (21:27)
[2025-03-10] MEDS: methylPREDNISolone SUCC 125 MG VIAL IVP (21:28)
[2025-03-10] MEDS: Divalproex 500 MG TABEC PO (21:45)
[2025-03-10] MEDS: Docusate Sodium 100 MG CAP PO (21:45)
[2025-03-10] MEDS: Carvedilol 6.25 MG TAB PO (21:45)
[2025-03-10] MEDS: Atorvastatin 40 MG TAB 80 MG PO (21:45)
[2025-03-10] MEDS: levETIRAcetam 250 MG TAB PO (21:45)
[2025-03-10] MEDS: Insulin Glargine 300 UNITS/3 ML PEN 20 UNITS SC (22:22)
[2025-03-11] VITALS (95 sets, daily range): BP systolic 54–100; BP diastolic 35–68; PULSE 25–95; RESP 2–35; TEMP 31–36.2; O2SAT 83–98
--- NOTE | 2025-03-11 | DI.CT_ITS ---
Exam(s) CT HEAD WO EXAM: CT HEAD WO CLINICAL HISTORY: anisocoria. TECHNIQUE: Imaging Protocol: Axial computed tomography images with coronal and sagittal reformatted images were created and reviewed COMPARISON: CT CT HEAD WO from 01/03/[address] BRAIN NECK CTA from 03/17/[address] HEAD CERVICAL SPINE WO from 03/30/2024 FINDINGS: The exam is limited by motion. Ventricles and Extra axial spaces: Ex vacuo dilatation of the left lateral ventricle. Hemorrhage: A few small high density foci are noted lateral left parietal region in area of encephalo malacia. The findings are new when compared the previous exam. No associated mass effect. The find ings could represent calcifications versus hemorrhage. Cerebral parenchyma: No evidence of acute infarct or mass. Old area of large infarction in the left M CA territory. Midline shift: None. Brainstem/Cerebellum: Normal. Calvarium: Normal. Visualized Paranasal sinuses:Clear. Mastoids: Clear. Soft Tissues: Unremarkable. ORBITS: Unremarkable. PITUITARY: Not enlarged. IMPRESSION: Old large MCA infarct. No acute infarct is visible. Small foci of high attenuation in the left mariia etal lobe could represent calcification versus foci of hemorrhage. Findings called to Dr. Jean, hospitalist. RADIATION DOSE DELIVERED: Total DLP DATA REPOSITORY: All CT scans at this facility are submitted to the National Radiology Data Registry (NRDR) Dose Index Registry (DIR) with the [employer] (ACR). RADIATION OPTIMIZATION: All CT scans at this facility use at least one of these dose optimization te chniques: automated exposure control; mA and/or kV adjustment per patient size (includes targeted exa ms where dose is matched to clinical indication); or iterative reconstruction.
[2025-03-11] MEDS: Albuterol/Ipratropium 3 ML UPD VIAL UPD ×4 (04:00→21:59)
[2025-03-11 06:35] LABS: HCT 27.5 % (40.0-50.0); HGB 8.3 g/dL (13.5-17.5); MCH 29.3 pg (27.0-33.0); MCHC 30.2 % (32.0-36.0); MCV 97 fL (80-95); MPV 10.1 fL (8.0-11.0); Platelet Count 194 10^3/uL (130-400); RBC 2.83 10^6/uL (4.36-5.78); RDW 15.8 % (11.8-14.1); RDW-SD 56.6 fL; WBC 10.34 10^3/uL (4.4-10.8)
[2025-03-11 06:53] LABS: Anion Gap 7.1 mmol/L (3-11); BUN 50 mg/dL (7-18); CO2 30.9 mmol/L (21.0-32.0); CREATININE 1.1 mg/dL (0.70-1.30); Calcium 8.1 mg/dL (8.5-10.1); Chloride 112 mmol/L (98-107); Estimated GFR 70.88 (mL/min/1.73m2); Glucose 120 mg/dL (74-106); Potassium 3.7 mmol/L (3.5-5.1); Sodium 150 mmol/L (136-145)
[2025-03-11 07:28] LABS: Absolute Lymphocyte Count 0.93 10^3/uL (1.2-3.4); Absolute Neutrophil Count 9.31 10^3/uL (1.2-6.7); Bands % 10 %; Diff Comment Manual Differential; RBC Morphology Normal
[2025-03-11] MEDS: Docusate Sodium 100 MG CAP PO (09:15)
[2025-03-11] MEDS: Divalproex 500 MG TABEC PO (09:15)
[2025-03-11] MEDS: Gabapentin 100 MG CAP PO ×2 (09:15→14:05)
[2025-03-11] MEDS: Aspirin E.C. 81 MG TABEC PO (09:15)
[2025-03-11] MEDS: levETIRAcetam 250 MG TAB PO (09:15)
[2025-03-11] MEDS: ARIPiprazole 5 MG TAB 10 MG PO (09:16)
[2025-03-11] MEDS: Pantoprazole 40 MG VIAL IVP (09:16)
[2025-03-11] MEDS: Acetaminophen 500 MG TAB 1000 MG PO ×2 (09:16→14:11)
[2025-03-11] MEDS: Normal Saline Flush 10 ML SYR IVP ×4 (09:17→22:36)
--- NOTE | 2025-03-11 09:29 | PGE_ITS ---
Date of Service Date of service: 03/11/25 Time of Service: 09:29 Assessment and Plan Assessment and plan (1) Severe sepsis: Status: Acute Assessment and plan: Sepsis criteria met with tachycardia ? 90 HR 106, tachypnea > 20 with RR at 25 WBC > 12 with leukocytosis at 22.42- Source most likely respiratory as per CT report Severity criteria met with lactate > 2.0 at at 2.4 And as below 4.17.25 Pt's vitals still indicate hypotension. CW IVF but add at 1/2ns 2/2 hypernatremia. C/W rocephin and zmax (2) Acute respiratory failure with hypoxia and hypercapnia: Status: Acute Assessment and plan: Patient w/o chronic O2 requirement at home and presenting with saturation at 79 % .Only Maintains sat at 90% on BIPAP settings with 100% FiO2 initially- IP 14/EP 8 Pulmonary emboli ruled out as per imaging , improving pleural effusion as per CT VBG PCO2 60 with PH 7.37- unable to obtain ABG Infiltrates as per imaging confirming location of multifocal pneumonia more prominent to the right lung Wean Oxygen for saturation 92% when possible Continue Azithromycin, ceftriaxone, vancomycin (MRSA colonization ) MRSA PCR Blood cultures pending Methylprednisolone 125 mg IVP X 1 -- transition to oral steroids when possible Low dose PRN IV lorazepam for compliance with BIPAP 4.17.25 Pt remains on bipap but will wean as tolertated. Pt's has been placed on solumedrol 40mg IV q8. PT also with pneumonia and will be continuing abx as listed above (3) Pneumonia: Assessment and plan: Worsening infiltrates as per CT results,PE ruled out As above vanc/rocephin and zmax (4) Seizure: Status: Acute Assessment and plan: On home dose Keppra and depakote (5) Pressure injury: Status: Acute Assessment and plan: Continue wound dressing with alginate dressing and mepilex until wound consult completed Wound culture ordered On broad spectrum antibiotic as per point 2 (6) CVA, old, aphasia: Status: Acute Assessment and plan: On home dose ASA and statin (7) Chronic pain: Status: Chronic Assessment and plan: On chronic oral morphine at home - will hold while on BIPAP - morphine IVP PRN On home dose gabapentin (8) Diabetes: Assessment and plan: Glucose 146 on admission Gluc AC and HS with SSI Continue home dose Lantus (9) Hypertension: Status: Chronic Assessment and plan: Continue home dose Coreg low treshold to transition to IVP metoprolol if needed while on BIPAP 4..25 Pt currently with low bp. CW ivf and consider pressure support if MAP remains below 65 (10) Edema of right upper extremity: Status: Acute Assessment and plan: POCUS showed no DVT- see exam Lymphedema +/ elevate right upper ext. (11) GERD (gastroesophageal reflux disease): Status: Chronic Assessment and plan: On home dose nexium- held while on BIPAP Protonix IVP daily (12) Depression: Status: Chronic Assessment and plan: On home dose abilify (13) Hypothyroidism: Status: Chronic Assessment and plan: On home dose levothyroxine (14) On deep vein thrombosis (DVT) prophylaxis: Status: Acute Assessment and plan: On LMWH Discussed with Dr. Alvarado georges Subjective Subjective Interval history since last seen: Pt seen and examined in his room. Pt had multiple bed sores including to the decubitus and heels bilat despite heel guards. PT had condom cath but was retaining urine so agreed to a michel. Exam Narrative Exam Narrative: Frail, chronically ill-appearing male in acute respiratory distress, somnolent ,awakened with verbal/tactile stimulation, nods appropriately to questions- minimal verbal responses, expressive aphasia and right-sided paralysis from previous stroke. 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 Objective Last Vital Signs Temp 36 C L 03/11/25 06:40 Pulse 57 L 03/11/25 09:09 Resp 35 H 03/11/25 09:09 BP 78/46 L 03/11/25 04:10 Pulse Ox 90 L 03/11/25 09:09 Laboratory Results - last 24 hr 03/10/25 03/10/25 03/10/25 10:33 10:41 15:10 WBC 22.24 H RBC 3.62 L Hgb 10.8 L Hct 35.2 L MCV 97 H MCH 29.8 MCHC 30.7 L RDW 16.0 H Plt Count 396 MPV 9.5 Immature Gran % 0.6 Neutrophils % 88.9 Band Neutrophils % Lymphocytes % 4.2 Monocytes % 5.7 Eosinophils % 0.0 Basophils % 0.6 Nucleated RBC % 0.0 Absolute Neutrophils 19.77 H Absolute Lymphocytes 0.93 L Absolute Monocytes 1.27 H Absolute Eosinophils 0.00 Absolute Basophils 0.13 RBC Morphology ABG Sample Site ABG pH ABG pCO2 ABG pO2 ABG HCO3 ABG Total CO2 ABG O2 Saturation ABG Base Excess VBG pH Cancelled 7.37 VBG pCO2 Cancelled 60 H VBG pO2 Cancelled 22 VBG HCO3 Cancelled 34 H VBG Total CO2 Cancelled 32 H VBG O2 Saturation Cancelled 31 VBG Base Excess Cancelled 9 H VBG Lactate 2.2 H* FiO2 Sodium 146 H Potassium 3.6 Chloride 110 H Carbon Dioxide 33.3 H Anion Gap 2.7 L BUN 41 H Creatinine 1.0 Est GFR (CKD-EPI 2020) 79.47 Glucose 90 Calcium 8.7 Magnesium 2.1 Total Bilirubin 0.5 AST 32 ALT 13 L Alkaline Phosphatase 112 Total Protein 7.8 Albumin 1.5 L MRSA (TEM-PCR) Positive A 03/10/25 03/11/25 20:49 06:20 WBC 10.34 RBC 2.83 L Hgb 8.3 L D Hct 27.5 L MCV 97 H MCH 29.3 MCHC 30.2 L RDW 15.8 H Plt Count 194 D MPV 10.1 Immature Gran % 0.0 Neutrophils % 80.0 Band Neutrophils % 10 Lymphocytes % 9.0 Monocytes % 1.0 Eosinophils % 0.0 Basophils % 0.0 Nucleated RBC % 0.0 Absolute Neutrophils 9.31 H Absolute Lymphocytes 0.93 L Absolute Monocytes 0.10 Absolute Eosinophils 0.00 Absolute Basophils 0.00 RBC Morphology Normal ABG Sample Site Left Radial ABG pH 7.41 ABG pCO2 51 H ABG pO2 190 H ABG HCO3 32 H ABG Total CO2 31 H ABG O2 Saturation > 99 H ABG Base Excess 8 H VBG pH VBG pCO2 VBG pO2 VBG HCO3 VBG Total CO2 VBG O2 Saturation VBG Base Excess VBG Lactate FiO2 80 Sodium 150 H Potassium 3.7 Chloride 112 H Carbon Dioxide 30.9 Anion Gap 7.1 BUN 50 H Creatinine 1.1 Est GFR (CKD-EPI 2020) 70.88 Glucose 120 H Calcium 8.1 L Magnesium Total Bilirubin AST ALT Alkaline Phosphatase Total Protein Albumin MRSA (TEM-PCR) Time Spent with Patient Time Spent with Patient: 35-49 minutes Time was spent: preparing to see the patient(eg.review tests), obtaining and/or reviewing separately otained hiistory, ordering medications,tests, procedures, referring, communicating with other health neurocritical care physician, indepentently interpreting results, counseling the patient and care coordination
[2025-03-11] MEDS: cefTRIAXone 2 GM/50 ML BAG IVPB (09:44)
[2025-03-11] MEDS: SODIUM CHLORIDE 0.45% 1,000 ML 100 ML IV ×2 (09:50→22:00)
[2025-03-11 10:36] LABS: Vancomycin, Random 19.4 ug/mL
[2025-03-11] MEDS: methylPREDNISolone SUCC 40 MG VIAL IVP ×2 (10:44→17:24)
[2025-03-11] MEDS: Normal Saline 1,000 ML 999 ML IV (11:08)
[2025-03-11] MEDS: Norepinephrine in D5W 8 MG/250 ML BAG 9.375 MG IV (11:24)
--- NOTE | 2025-03-11 11:24 | PHA.REVIEW2 ---
Pharmacy Admission Review Admission Clinical Review Admission Pharmacy Review: Edema of right upper extremity (Acute) Aspiration pneumonia (Acute) On deep vein thrombosis (DVT) prophylaxis (Acute) CVA, old, aphasia (Acute) Seizure (Acute) Acute respiratory failure with hypoxia and hypercapnia (Acute) Severe sepsis (Acute) Pressure injury (Acute) Hypoxia (Acute) Penicillins Allergy (Unknown, Verified 03/10/25 09:57) Unknown codeine Adverse Reaction (Verified 03/10/25 09:57) itching and bloutchy pentazocine lactate (From Talwin) Adverse Reaction (Verified 03/10/25 09:57) makes me deathly ill Resuscitation Status DNR/DNI Height 5 ft 6 in Weight 67 kg Pharmacy Admission Review Renal Dosing Renal Dosing: BUN 50 mg/dL (7-18) H 03/11/25 06:20 Creatinine 1.1 mg/dL (0.70-1.30) 03/11/25 06:20 Medications needing adjustments: Reviewed (CrCl 56 mL/min, BUN increased from 41) List of meds needing interventions: Current medications are okay Anticoagulation Anticoagulation: Hgb 8.3 g/dL (13.5-17.5) L D 03/11/25 06:20 Hct 27.5 % (40.0-50.0) L 03/11/25 06:20 Plt Count 194 10^3/uL (130-400) D 03/11/25 06:20 Creatinine 1.1 mg/dL (0.70-1.30) 03/11/25 06:20 DVT Prophylaxis: Reviewed (Hgb decreased from 10.8) Medications: Enoxaparin (40mg daily) Opiate Usage Evaluate Pain Scale/Pains Meds: Reviewed (fentanyl 100mcg patch, morphine 4mg IVP q6h PRN - 4mg / 24hrs, morphine IR 15mg PO TID PRN - on hold) Scheduled Bowel Reg ordered if on Opiates?: Yes (docusate BID) Relevant Labs Relevant Labs: Sodium 150 mmol/L (136-145) H 03/11/25 06:20 Potassium 3.7 mmol/L (3.5-5.1) 03/11/25 06:20 Chloride 112 mmol/L (98-107) H 03/11/25 06:20 Magnesium 2.1 mg/dL (1.8-2.4) 03/10/25 10:41 Electrolytes, C-Reactive P, ESR: Reviewed DM Control DM Control: Glucose 120 mg/dL (74-106) H 03/11/25 06:20 Finger Stick Blood Glucose 128 0718 Finger Stick Blood Glucose 128 0718 DM Control: Reviewed Insulin Dosing, Diabetic Medication: Has order for SS insulin and glargine 20 units at bedtime. Currently on methylprednisolone 40mg IVP q8h. Cardiac Review Cardiac Review: Blood Pressure : Heart Rate 85/68 : 54 1122 Blood Pressure : Heart Rate 78/46 : 55 0410 Blood Pressure : Heart Rate 67/48 : 57 0401 Blood Pressure : Heart Rate 67/50 : 57 0258 Blood Pressure : Heart Rate 71/54 : 59 0007 Blood Pressure : Heart Rate 69/53 : 59 0004 BP, HR, EF%: Reviewed (RR 10) List meds needing interventions: Has order for carvedilol 6.25mg BID. Order added this morning for norepinephrine drip, currently running at 5 mcg/min. QTc Review QTc: Reviewed (451 from 03/10/25) IV to PO Switch IV Medications: Reviewed (azithromycin, ceftriaxone, lorazepam, morphine, pantoprazole and vancomycin) Home Meds Home Med List reviewed: Reviewed Relevent Home Meds Not ordered & why?: esomeprazole (has order for IV pantoprazole), levofloxacin (on IV antibiotics), Narcan (PRN) Current Meds Current Medication Order Review: Intervened Comments: Changed IV ED access order Pharmacy Antibiotic Review Relevant Labs: WBC 10.34 10^3/uL (4.4-10.8) 03/11/25 06:20 Temperature 35.2 C Temperature 36 C Temperature 35.2 C Microbiology 03/10/25 11:46 Blood Culture - Preliminary Blood Gram positive cocci 03/10/25 10:41 Blood Culture - Preliminary Blood Gram positive cocci Pharmacy Antibiotic Activity: C/S review and Reviewed, no change Comments: Patient is on ceftriaxone, azithromycin and vancomycin, day 1, for severe sepsis/pneumonia. Current vancomycin dose is 1250mg q24h with predicted AUC of 455 and trough of 15.7. Ordered level for tomorrow with morning labs. Will adjust dose as needed. Reached out to provider regarding overall treatment (curious about using azithromycin + ceftriaxone instead of cefepime or Zosyn). Waiting to hear back. WBC decreased from 22.24.
--- NOTE | 2025-03-11 11:46 | NUR.NOTE ---
Nursing Note: 1145 aroldo gonzalez applied.
[2025-03-11] MEDS: VANCOMYCIN 1,250 MG in Normal Saline 250 ML 166.667 MG IVPB (11:51)
--- NOTE | 2025-03-11 15:40 | W.ANESVAS ---
Arterial Line Placement Date Performed: 03/11/25 Procedure Time: 13:30 Procedure Location: Intensive Care Unit Requesting Provider: Walt Jean Timeout Performed: Yes Sedation Given (Indicate Dose Given): No Sedation given Patient Mental Status: Awake Sterility: Hand Hygiene, Surgical Cap, Surgical Mask, Sterile Gloves, Sterile Drape/Sheet and Chlorhexidine Laterality: Left Insertion Site: Radial Arterial Line Catheter: 20G Arrow Arterial Line Procedure: Vessel accessed with needle, Vessel accessed with catheter over needle, Guidewire placed with ease, Catheter placed without resistance and Guidewire removed Dressing: Tegaderm Applied, BioPatch Applied and Other (Stat lock) Ultrasound: Sterile probe cover and gel used Ultrasound Image Saved?: Yes Number of Attempts (See previous attempts in note section): 3 Procedure Tolerated: No Complications Procedure Outcome: Successful Performed By: Kait Rivera
--- NOTE | 2025-03-11 15:46 | CE_ITS ---
Date of service: 03/11/25 Time of Service: 15:46 Event Note: NS report pt with anisocoria which was documented at 1000. On physical exam, left pupil appx 7-8mm with little reactivity and right pupil appx 2mm with little reactivity. Ordered stat ct without contrast to rule out brain bleed. Pt also had arterial line placed 2/2 hypotension and the need for pressure support with levophed. KISS SETTER HAND report art line readings show a systolic of appx 150 so weaning down levophed. KISS SETTER HAND recommended against central line as pt does have appropriate access, at least at this time. Time Spent with Patient Time spent in critical care(minutes): 20 Time Spent Included: Documenting critically ill care, Time at immediate bedside and Discussing critically ill care with other medical staff
[2025-03-11] MEDS: Normal Saline 250 ML 500 ML IV (16:03)
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
[2025-03-11] MEDS: Enoxaparin 40 MG/0.4 ML SYR SC (17:24)
[2025-03-11] MEDS: AZITHROMYCIN 500 MG in Normal Saline 250 ML 250 MG IVPB (21:00)
[2025-03-11] MEDS: Insulin Aspart 300 UNITS/3 ML PEN SC (22:02)
[2025-03-11] MEDS: ACETAMINOPHEN 1,000 MG/100 ML BAG 400 MG IVPB (22:36)
[2025-03-11] MEDS: levETIRAcetam 500 MG/5 ML VIAL 250 MG IV (22:58)
[2025-03-12] VITALS (87 sets, daily range): PULSE 57–98; RESP 3–18; TEMP 31–36.8; O2SAT 67–96
[2025-03-12] MEDS: LORazepam 2 MG/ML VIAL 0.5 MG IVP ×3 (01:13→21:17)
[2025-03-12] MEDS: methylPREDNISolone SUCC 40 MG VIAL IVP ×3 (02:47→17:00)
[2025-03-12] MEDS: MORPHine 4 MG/ML SYR IVP ×2 (03:08→10:36)
[2025-03-12] MEDS: Albuterol/Ipratropium 3 ML UPD VIAL UPD ×4 (04:26→21:28)
[2025-03-12 06:40] LABS: HCT 28.4 % (40.0-50.0); HGB 8.7 g/dL (13.5-17.5); MCHC 30.6 % (32.0-36.0); MCV 95 fL (80-95); Platelet Count 404 10^3/uL (130-400); RDW 15.8 % (11.8-14.1); WBC 22.26 10^3/uL (4.4-10.8)
[2025-03-12 07:10] LABS: Vancomycin, Random 26.6 ug/mL
[2025-03-12 07:14] LABS: ALT 11 U/L (16-63); AST 25 U/L (15-37); Absolute Lymphocyte Count 0.45 10^3/uL (1.2-3.4); Absolute Monocyte Count 0.67 10^3/uL (0.1-0.8); Absolute Neutrophil Count 21.15 10^3/uL (1.2-6.7); Albumin 1.1 g/dL (3.4-5.0); Alkaline Phosphatase 83 U/L (46-116); Anion Gap 7.9 mmol/L (3-11); BUN 60 mg/dL (7-18); Bands % 12 %; Bilirubin, Total 0.2 mg/dL (0.2-1.0); CO2 28.1 mmol/L (21.0-32.0); CREATININE 1.4 mg/dL (0.70-1.30); Calcium 7.9 mg/dL (8.5-10.1); Chloride 109 mmol/L (98-107); Diff Comment Manual Differential; Estimated GFR 53.07 (mL/min/1.73m2); Glucose 308 mg/dL (74-106); Potassium 3.8 mmol/L (3.5-5.1); RBC Morphology Normal; Sodium 145 mmol/L (136-145); Total Protein 5.9 g/dL (6.4-8.2)
--- NOTE | 2025-03-12 07:23 | RESPIRATORY ---
This is documentation for 03/11/2025 at aprox 645pm. I was called by Jazmyne last night to evaluate this pt. The pt was pulling off bipap . I removed bipap to give pt a break and noticed breakdown on pt nose. I then placed pt on 8L OXYMASK, which i had to increase to 10 to try to maintain sat of 88%. I went out and spoke to nurse regarding breakdown on bridge of nose and pt not wanting to wear bipap. I expressed i was going to get a high flow hooked up for pt. She and i listened to pt lungs and jazmyne stated she heard coarse crackles- i heard the same. She said she had recently given pt a shake. I told her there were concerns for aspiration of the shake the pt had coarse crackles and a gurgling noise in throat area- i tried to sx with no luck. She stated she had notified the provided an hour earlier of her concerns. I then when to providers office to ask for chest xray and evaul on pt due to concerns of aspiration. Yamileth ESPINOZA open door , I asked her to help with 219 and she stopped me and stated she was not doing any more to call rn documentation specialist provider and she shut the door. I then reported that interaction to Jazmyne and ned RT LEAD. I then came down to get high flow and page rn documentation specialist provider. Yan security shift supervisor RT was in, I notified him of all of this and he took over with pt.
[2025-03-12] MEDS: Pantoprazole 40 MG VIAL IVP (07:47)
[2025-03-12] MEDS: Insulin Aspart 300 UNITS/3 ML PEN SC ×3 (07:49→16:58)
[2025-03-12] MEDS: Norepinephrine in D5W 8 MG/250 ML BAG 13.125 MG IV (07:50)
[2025-03-12] MEDS: Normal Saline Flush 10 ML SYR IVP ×2 (07:50→17:00)
[2025-03-12] MEDS: SODIUM CHLORIDE 0.45% 1,000 ML 100 ML IV ×2 (09:20→17:01)
[2025-03-12] MEDS: cefTRIAXone 2 GM/50 ML BAG IVPB (10:35)
--- NOTE | 2025-03-12 11:33 | W.PM.PROGNOT ---
Date of Service Date of service: 03/12/25 Time of Service: 11:33 Assessment and Plan Assessment and plan (1) Severe sepsis: Status: Acute Assessment and plan: Sepsis criteria met with tachycardia ? 90 HR 106, tachypnea > 20 with RR at 25 WBC > 12 with leukocytosis at 22.42- Source most likely respiratory as per CT report Severity criteria met with lactate > 2.0 at at 2.4 And as below 4.. Pt's vitals still indicate hypotension. CW IVF but add at 1/2ns 2/2 hypernatremia. C/W rocephin and zmax 03.12.25 Pt remains on levophed abd his BP is at (87/63). Pt continues on rocephin and zmax (2) Acute respiratory failure with hypoxia and hypercapnia: Status: Acute Assessment and plan: Patient w/o chronic O2 requirement at home and presenting with saturation at 79 % .Only Maintains sat at 90% on BIPAP settings with 100% FiO2 initially- IP 14/EP 8 Pulmonary emboli ruled out as per imaging , improving pleural effusion as per CT VBG PCO2 60 with PH 7.37- unable to obtain ABG Infiltrates as per imaging confirming location of multifocal pneumonia more prominent to the right lung Wean Oxygen for saturation 92% when possible Continue Azithromycin, ceftriaxone, vancomycin (MRSA colonization ) MRSA PCR Blood cultures pending Methylprednisolone 125 mg IVP X 1 -- transition to oral steroids when possible Low dose PRN IV lorazepam for compliance with BIPAP 03.11.25 Pt remains on bipap but will wean as tolertated. Pt's has been placed on solumedrol 40mg IV q8. PT also with pneumonia and will be continuing abx as listed above 03.12.25 Pt is currently on 50%hi-nahum and satting 93%. Wean as tolerated (3) Pneumonia: Assessment and plan: Worsening infiltrates as per CT results,PE ruled out As above vanc/rocephin and zmax 03/12/25 Increasing wbc noted. Infectious vs inflammation. Will c/w current abx and recheck in am. Considering broadening abx coverage if wbc remains elevated (4) Seizure: Status: Acute Assessment and plan: On home dose Keppra and depakote 03/12/25 Keppra 250mg IV q12 hours Valproic acid 250mg IV q6 hours No seizure activity noted (5) Pressure injury: Status: Acute Assessment and plan: Continue wound dressing with alginate dressing and mepilex until wound consult completed Wound culture ordered On broad spectrum antibiotic as per point 2 03/12/25 Reading palliative care note, there is a concern for a Reynaldo Ulcer and associated prognosis (6) CVA, old, aphasia: Status: Acute Assessment and plan: On home dose ASA and statin Exam(s) a CT:CT head wo Exam(s) CT HEAD WO EXAM: CT HEAD WO CLINICAL HISTORY: anisocoria. TECHNIQUE: Imaging Protocol: Axial computed tomography images with coronal and sagittal reformatted images were created and reviewed COMPARISON: CT CT HEAD WO from 01/03/[address] BRAIN NECK CTA from 03/17/[address] HEAD CERVICAL SPINE WO from 03/30/2024 FINDINGS: The exam is limited by motion. Ventricles and Extra axial spaces: Ex vacuo dilatation of the left lateral ventricle. Hemorrhage: A few small high density foci are noted lateral left parietal region in area of encephalomalacia. The findings are new when compared the previous exam. No associated mass effect. The findings could represent calcifications versus hemorrhage. Cerebral parenchyma: No evidence of acute infarct or mass. Old area of large infarction in the left MCA territory. Midline shift: None. Brainstem/Cerebellum: Normal. Calvarium: Normal. Visualized Paranasal sinuses:Clear. Mastoids: Clear. Soft Tissues: Unremarkable. ORBITS: Unremarkable. PITUITARY: Not enlarged. IMPRESSION: Old large MCA infarct. No acute infarct is visible. Small foci of high attenuation in the left parietal lobe could represent calcification versus foci of hemorrhage. Findings called to Dr. Jean, hospitalist. (7) Chronic pain: Status: Chronic Assessment and plan: On chronic oral morphine at home - will hold while on BIPAP - morphine IVP PRN On home dose gabapentin (8) Diabetes: Assessment and plan: Glucose 146 on admission Gluc AC and HS with SSI Continue home dose Lantus (9) Hypertension: Status: Chronic Assessment and plan: Continue home dose Coreg low treshold to transition to IVP metoprolol if needed while on BIPAP 4.17.25 Pt currently with low bp. CW ivf and consider pressure support if MAP remains below 65 (10) Edema of right upper extremity: Status: Acute Assessment and plan: POCUS showed no DVT- see exam Lymphedema +/ elevate right upper ext. (11) GERD (gastroesophageal reflux disease): Status: Chronic Assessment and plan: On home dose nexium- held while on BIPAP Protonix IVP daily (12) Depression: Status: Chronic Assessment and plan: On home dose abilify (13) Hypothyroidism: Status: Chronic Assessment and plan: On home dose levothyroxine (14) On deep vein thrombosis (DVT) prophylaxis: Status: Acute Assessment and plan: lovenox (15) Anisocoria: Status: Acute Assessment and plan: Brought to my attention yesterday afternoon. Emergent CT reassuring. Exact etiology is unknown at this point Exam(s) a CT:CT head wo Exam(s) CT HEAD WO EXAM: CT HEAD WO CLINICAL HISTORY: anisocoria. TECHNIQUE: Imaging Protocol: Axial computed tomography images with coronal and sagittal reformatted images were created and reviewed COMPARISON: CT CT HEAD WO from 01/03/[address] BRAIN NECK CTA from 03/17/[address] HEAD CERVICAL SPINE WO from 03/30/2024 FINDINGS: The exam is limited by motion. Ventricles and Extra axial spaces: Ex vacuo dilatation of the left lateral ventricle. Hemorrhage: A few small high density foci are noted lateral left parietal region in area of encephalomalacia. The findings are new when compared the previous exam. No associated mass effect. The findings could represent calcifications versus hemorrhage. Cerebral parenchyma: No evidence of acute infarct or mass. Old area of large infarction in the left MCA territory. Midline shift: None. Brainstem/Cerebellum: Normal. Calvarium: Normal. Visualized Paranasal sinuses:Clear. Mastoids: Clear. Soft Tissues: Unremarkable. ORBITS: Unremarkable. PITUITARY: Not enlarged. IMPRESSION: Old large MCA infarct. No acute infarct is visible. Small foci of high attenuation in the left parietal lobe could represent calcification versus foci of hemorrhage. Findings called to Dr. Jean, hospitalist. Subjective Subjective Interval history since last seen: PT more somnolent today. but does wake up to verbal stimuli. 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 Notes reviewed from Palliative and some concern for a Reynaldo ulcer Objective Last Vital Signs Temp 36.2 C L 03/11/25 23:15 Pulse 74 03/12/25 10:10 Resp 14 03/12/25 10:04 BP 87/63 L 03/11/25 14:31 Pulse Ox 91 L 03/12/25 10:04 Laboratory Results - last 24 hr 03/12/25 03/12/25 05:15 05:35 WBC 22.26 H RBC 3.00 L Hgb 8.7 L Hct 28.4 L MCV 95 MCH 29.0 MCHC 30.6 L RDW 15.8 H Plt Count 404 H D MPV 10.0 Immature Gran % See Differential Neutrophils % 83.0 Band Neutrophils % 12 Lymphocytes % 2.0 Monocytes % 3.0 Eosinophils % 0.0 Basophils % 0.0 Nucleated RBC % 0.0 Absolute Neutrophils 21.15 H Absolute Lymphocytes 0.45 L Absolute Monocytes 0.67 Absolute Eosinophils 0.00 Absolute Basophils 0.00 RBC Morphology Normal Sodium 145 Cancelled Potassium 3.8 Cancelled Chloride 109 H Cancelled Carbon Dioxide 28.1 Cancelled Anion Gap 7.9 Cancelled BUN 60 H Cancelled Creatinine 1.4 H Cancelled Est GFR (CKD-EPI 2020) 53.07 Cancelled Glucose 308 H Cancelled Calcium 7.9 L Cancelled Total Bilirubin 0.2 AST 25 ALT 11 L Alkaline Phosphatase 83 Total Protein 5.9 L Albumin 1.1 L Random Vancomycin 26.6 Time Spent with Patient Time Spent with Patient: 25-34 minutes Time was spent: preparing to see the patient(eg.review tests), obtaining and/or reviewing separately otained hiistory, ordering medications,tests, procedures, referring, communicating with other health health care consultant, indepentently interpreting results, counseling the patient and care coordination
[2025-03-12] MEDS: VANCOMYCIN/WATER (PEG) 750 MG/150 ML BAG 150 MG IV (12:09)
--- NOTE | 2025-03-12 14:09 | PDOC.CMPRO ---
Date of service: 03/12/25 Time of Service: 14:09 Care Management Progress Note Progress Note Text Progress Note Text: Ed was resting when CM attempted to visit with him. He remains in the ICU and is being closely monitored. Per report, he was on Bipap this morning, but was able to transition to high flow O2. He was seen by palliative care, who contacted Ed's HCA, his daughter, Alejandra. They discussed Ed's medical status, and options for care such as comfort measures, continuing treatment, and hospice support at home. Alejandra reported that she will plan to visit Ed tomorrow. Ed's son and caregiver, Stephen has been visiting daily. CM will continue to follow. Discharge Potential Discharge Needs: Consult Consult Services Needed: Palliative and PCP F/U Appt Anticipated Barriers to Discharge: Medical Status Patient/Family Education Needs: Review discharge instructions, discuss Ask Me Three Transportation: EMS Plan: Ed is very ill and is being treated at ICU level of care. Anticipate he will return home once medically stable. He will transport via EMS, coordinated by CM. His son will continue to care for him at home, and his HH RN will resume. He will follow up with his PCP and discharge plan of care. CM will continue to follow. Social Determinants of Health Screening Will the Patient Participate in the Screening?: Unable to obtain
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
[2025-03-12] MEDS: ACETAMINOPHEN 1,000 MG/100 ML BAG 400 MG IVPB ×2 (14:27→22:00)
[2025-03-12] MEDS: Enoxaparin 40 MG/0.4 ML SYR SC (16:58)
[2025-03-12] MEDS: AZITHROMYCIN 500 MG in Normal Saline 250 ML 250 MG IVPB (20:21)
[2025-03-13] VITALS (81 sets, daily range): BP systolic 202; BP diastolic 64; PULSE 52–93; RESP 3–21; TEMP 31–36.4; O2SAT 84–98
[2025-03-13] MEDS: SODIUM CHLORIDE 0.45% 500 ML 100 ML IV ×4 (01:07→21:00)
[2025-03-13] MEDS: methylPREDNISolone SUCC 40 MG VIAL IVP ×3 (01:42→17:59)
[2025-03-13] MEDS: MORPHine 4 MG/ML SYR IVP ×6 (01:42→23:43)
[2025-03-13] MEDS: Albuterol/Ipratropium 3 ML UPD VIAL UPD ×4 (03:50→21:57)
[2025-03-13 05:55] LABS: Absolute Basophil Count 0.11 10^3/uL (0.0-0.2); Absolute Lymphocyte Count 0.64 10^3/uL (1.2-3.4); Basophils % 0.6 %; HCT 28.1 % (40.0-50.0); HGB 9.1 g/dL (13.5-17.5); Immature Grans % 0.5 %; Lymphocytes % 3.4 %; MCH 29.8 pg (27.0-33.0); MCHC 32.4 % (32.0-36.0); MCV 92 fL (80-95); MPV 10.4 fL (8.0-11.0); Monocytes % 2.1 %; Neutrophils % 93.4 %; Nucleated RBC 0.1 % (0.0-0.3); Platelet Count 323 10^3/uL (130-400); RBC 3.05 10^6/uL (4.36-5.78); RDW 15.9 % (11.8-14.1); RDW-SD 53.6 fL
[2025-03-13 05:56] LABS: Absolute Monocyte Count 0.39 10^3/uL (0.1-0.8); Absolute Neutrophil Count 17.47 10^3/uL (1.2-6.7)
[2025-03-13] MEDS: ACETAMINOPHEN 1,000 MG/100 ML BAG 400 MG IVPB ×3 (06:04→22:29)
[2025-03-13 06:21] LABS: ALT 16 U/L (16-63); AST 31 U/L (15-37); Albumin 1.1 g/dL (3.4-5.0); Alkaline Phosphatase 87 U/L (46-116); Anion Gap 7.6 mmol/L (3-11); BUN 61 mg/dL (7-18); Bilirubin, Total 0.2 mg/dL (0.2-1.0); CO2 25.4 mmol/L (21.0-32.0); CREATININE 1.2 mg/dL (0.70-1.30); Calcium 7.9 mg/dL (8.5-10.1); Chloride 109 mmol/L (98-107); Estimated GFR 63.85 (mL/min/1.73m2); Glucose 287 mg/dL (74-106); Sodium 142 mmol/L (136-145); Total Protein 5.6 g/dL (6.4-8.2); Vancomycin, Random 26.2 ug/mL
[2025-03-13] MEDS: Pantoprazole 40 MG VIAL IVP (07:44)
[2025-03-13] MEDS: Normal Saline Flush 10 ML SYR IVP (07:44)
[2025-03-13] MEDS: Insulin Aspart 300 UNITS/3 ML PEN SC ×3 (07:49→17:55)
[2025-03-13] MEDS: cefTRIAXone 2 GM/50 ML BAG IVPB (10:24)
[2025-03-13] MEDS: VANCOMYCIN/WATER (PEG) 750 MG/150 ML BAG 150 MG IV (11:35)
--- NOTE | 2025-03-13 12:41 | W.PM.PROGNOT ---
Date of Service Date of service: 03/13/25 Time of Service: 12:41 Assessment and Plan Assessment and plan (1) Severe sepsis: Status: Acute Assessment and plan: Due to respiratory source. Pt remains on levophed and his BP is at (87/63). On Abx. 03/13/25 Resolved. Continue with zmax/rocephin and vanc (2) Acute respiratory failure with hypoxia and hypercapnia: Status: Acute Assessment and plan: Pt is currently on 50% high flow system. 03/13/25 Pt is currently on 90% 2LNC. Continue to wean as tolerated (3) Pneumonia: Assessment and plan: On Abx, blood cultures pending. 03/13/25 Blood cultures show MRSA sensitive to vanc. CW vancomycin. Blood cultures x2 are positive (4) Seizure: Status: Acute Assessment and plan: On Keppra 250mg IV q12 hours and Valproic acid 250mg IV q6 hours No seizure activity noted (5) Pressure injury: Status: Acute Assessment and plan: Note outpatient palliative visit last month with concern for possible Reynaldo ulcer. 03/13/25 Wound care consult placed. (6) CVA, old, aphasia: Status: Acute Assessment and plan: With Aphasia, bed bound, total care. (7) Chronic pain: Status: Chronic Assessment and plan: PO Morphine at home. He is on IV MS here and home dose Gabapentin. 03/13/25 Increase morphine to 4mg IV q4 hours as pt seems to be in pain (8) Diabetes: Assessment and plan: BG AC and HS with SSI On home dose Lantus 03/13/25 Pt's latest BG are 273/221//295/102. Per report from [facility] recommended NPO. The last report from I see is from 02/17/25 which does not mention NPO status but does mention 1:1 close supervision/assist for all PO intake as well as 4-pureed solids. Pt can take thin liquids via tsp or straw (supervised) as well as ice chips for pleasure 02/07/25 Overall, Ed is considered to be at continued chronic high risk for aspiration, currently exacerbated by deconditioned status. Recommend initiate PO in small amounts, as outlined below, with very strict aspiration precautions in place. Recommend discontinue PO with decline in status, worsening respiratory status, or with frequent overt symptoms of aspiration. (9) Hypertension: Status: Chronic Assessment and plan: On pressure support and hypotensive. 03/13/25 Pt remains hypotensive. Pressure support with levophed as tolerated (10) Edema of right upper extremity: Status: Acute Assessment and plan: POCUS showed no DVT- see exam Lymphedema +/ elevate right upper ext. (11) GERD (gastroesophageal reflux disease): Status: Chronic (12) Depression: Status: Chronic Assessment and plan: On home dose abilify (13) Hypothyroidism: Status: Chronic Assessment and plan: On home dose levothyroxine (14) Anisocoria: Status: Acute Assessment and plan: Emergent CT reassuring. Exact etiology is unknown at this point 03/13/25 Resolved (15) Palliative care patient: Assessment and plan: Ed has HCA form that names his daughter, Alejandra to be his HCA. No alternative HCA. He has a COLST form on file- he is a DNR/DNI. Phone call to his daughter/HCA, Alejandra Federico: Alejandra did not know he was at the hospital. Reviewed reason for admission. Reviewed that this is his 4th hospital admission this year (over the last 3 months). Alejandra was unaware of these admissions. Reviewed the reason for admission. Reviewed that we can continue treating Ed with current care plan vs shift to ORTHOPEDIC NURSE PRACTITIONER here vs treat acute medical issues and if he recovers, consider discharge home on hospice. Alejandra expressed that she may consider taking Ed to her home to care for him if he ends up being discharged. She would appreciate hospice support if she takes him home. Alejandra will come see him tomorrow. She will consider options above. Palliative will continue to follow him while he is in the hospital. If he survives this admission, consider discharge home on hospice. Subjective Subjective Interval history since last seen: Pt seen and examined in his room this am. NS do report pt does appear to be in pain. 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 Notes reviewed from Palliative and some concern for a Reynaldo ulcer Objective Last Vital Signs Temp 36.4 C L 03/13/25 08:06 Pulse 69 03/13/25 11:00 Resp 10 L 03/13/25 11:00 BP 87/63 L 03/11/25 14:31 Pulse Ox 94 03/13/25 11:00 Laboratory Results - last 24 hr 03/13/25 03/13/25 05:30 05:35 WBC 18.70 H RBC 3.05 L Hgb 9.1 L Hct 28.1 L MCV 92 MCH 29.8 MCHC 32.4 RDW 15.9 H Plt Count 323 MPV 10.4 Immature Gran % 0.5 Neutrophils % 93.4 Lymphocytes % 3.4 Monocytes % 2.1 Eosinophils % 0.0 Basophils % 0.6 Nucleated RBC % 0.1 Absolute Neutrophils 17.47 H Absolute Lymphocytes 0.64 L Absolute Monocytes 0.39 Absolute Eosinophils 0.00 Absolute Basophils 0.11 Sodium 142 Cancelled Potassium 4.0 Cancelled Chloride 109 H Cancelled Carbon Dioxide 25.4 Cancelled Anion Gap 7.6 Cancelled BUN 61 H Cancelled Creatinine 1.2 Cancelled Est GFR (CKD-EPI 2020) 63.85 Cancelled Glucose 287 H Cancelled Calcium 7.9 L Cancelled Total Bilirubin 0.2 AST 31 ALT 16 Alkaline Phosphatase 87 Total Protein 5.6 L Albumin 1.1 L Random Vancomycin 26.2 Time Spent with Patient Time Spent with Patient: 35-49 minutes Time was spent: preparing to see the patient(eg.review tests), obtaining and/or reviewing separately otained hiistory, ordering medications,tests, procedures, referring, communicating with other health client care consultant, indepentently interpreting results, counseling the patient and care coordination
[2025-03-13] MEDS: Enoxaparin 40 MG/0.4 ML SYR SC (16:01)
[2025-03-13] MEDS: fentaNYL 100 MCG PATCH TD (16:02)
[2025-03-13] MEDS: LORazepam 2 MG/ML VIAL 0.5 MG IVP (19:30)
[2025-03-13] MEDS: AZITHROMYCIN 500 MG in Normal Saline 250 ML 250 MG IVPB (19:33)
[2025-03-13] MEDS: Metoprolol 5 MG/5 ML VIAL IVP (22:43)
[2025-03-14] VITALS (65 sets, daily range): BP systolic 132–196; BP diastolic 48–62; PULSE 54–72; RESP 3–18; TEMP 36–36.4; O2SAT 85–98
[2025-03-14] MEDS: methylPREDNISolone SUCC 40 MG VIAL IVP ×3 (01:22→17:06)
[2025-03-14] MEDS: LORazepam 2 MG/ML VIAL 0.5 MG IVP ×2 (01:23→12:29)
[2025-03-14] MEDS: Metoprolol 5 MG/5 ML VIAL IVP ×2 (01:23→23:29)
[2025-03-14] MEDS: MORPHine 4 MG/ML SYR IVP ×6 (01:24→23:14)
[2025-03-14] MEDS: SODIUM CHLORIDE 0.45% 500 ML 100 ML IV (02:45)
[2025-03-14] MEDS: Albuterol/Ipratropium 3 ML UPD VIAL UPD ×4 (04:02→21:56)
[2025-03-14 06:35] LABS: Absolute Basophil Count 0.01 10^3/uL (0.0-0.2); Basophils % 0.2 %; HCT 29.5 % (40.0-50.0); HGB 9.3 g/dL (13.5-17.5); MCHC 31.5 % (32.0-36.0); MCV 92 fL (80-95); Neutrophils % 88.9 %; Platelet Count 199 10^3/uL (130-400); RDW 15.7 % (11.8-14.1)
[2025-03-14 06:42] LABS: Abs Immature Grans 0.03 10^3/uL (0.0-0.06); Absolute Lymphocyte Count 0.51 10^3/uL (1.2-3.4); Absolute Monocyte Count 0.15 10^3/uL (0.1-0.8); Absolute Neutrophil Count 5.65 10^3/uL (1.2-6.7); Immature Grans % 0.5 %; MCH 29.1 pg (27.0-33.0); MPV 10.7 fL (8.0-11.0); Monocytes % 2.4 %; RDW-SD 53.5 fL; WBC 6.35 10^3/uL (4.4-10.8)
[2025-03-14 07:19] LABS: ALT 10 U/L (16-63); AST 20 U/L (15-37); Alkaline Phosphatase 77 U/L (46-116); BUN 65 mg/dL (7-18); Bilirubin, Total 0.2 mg/dL (0.2-1.0); CREATININE 1.1 mg/dL (0.70-1.30); Calcium 7.7 mg/dL (8.5-10.1); Chloride 108 mmol/L (98-107); Estimated GFR 70.88 (mL/min/1.73m2); Glucose 287 mg/dL (74-106); Potassium 3.6 mmol/L (3.5-5.1); Sodium 142 mmol/L (136-145); Total Protein 5.5 g/dL (6.4-8.2)
[2025-03-14] MEDS: Normal Saline Flush 10 ML SYR IVP ×4 (07:27→19:54)
[2025-03-14] MEDS: Insulin Aspart 300 UNITS/3 ML PEN SC ×3 (07:33→17:00)
[2025-03-14] MEDS: Pantoprazole 40 MG VIAL IVP (07:34)
[2025-03-14] MEDS: SODIUM CHLORIDE 0.45% 1,000 ML 100 ML IV ×2 (08:11→23:06)
[2025-03-14] MEDS: ACETAMINOPHEN 1,000 MG/100 ML BAG 400 MG IVPB ×2 (08:11→15:55)
--- NOTE | 2025-03-14 09:48 | PGE_ITS ---
Date of Service Date of service: 03/14/25 Time of Service: 09:49 Assessment and Plan Assessment and plan (1) Severe sepsis: Status: Acute Assessment and plan: Due to respiratory source. Pt remains on levophed and his BP is at (87/63). On Abx. 03/13/25 Resolved. Continue with zmax/rocephin and vanc 03/14/25 WBC much improved (2) Acute respiratory failure with hypoxia and hypercapnia: Status: Acute Assessment and plan: Pt is currently on 50% high flow system. 03/13/25 Pt is currently on 90% 2LNC. Continue to wean as tolerated 03/14/25 Pt is currently on 91% RA (3) Pneumonia: Assessment and plan: On Abx, blood cultures pending. 03/13/25 Blood cultures show MRSA sensitive to vanc. CW vancomycin. Blood cultures x2 are positive 03.14.25 pt with staph aureus positive blood cultures x2. Repeat today to ensure resolution (4) Seizure: Status: Acute Assessment and plan: On Keppra 250mg IV q12 hours and Valproic acid 250mg IV q6 hours No seizure activity noted (5) Pressure injury: Status: Acute Assessment and plan: Note outpatient palliative visit last month with concern for possible Reynaldo ulcer. 03/13/25 Wound care consult placed. (6) CVA, old, aphasia: Status: Acute Assessment and plan: With Aphasia, bed bound, total care. (7) Chronic pain: Status: Chronic Assessment and plan: PO Morphine at home. He is on IV MS here and home dose Gabapentin. 03/13/25 Increase morphine to 4mg IV q4 hours as pt seems to be in pain 03/14/25 HTN seems to be directly attributed to pain. C/w fairly aggressive pain control (8) Diabetes: Assessment and plan: BG AC and HS with SSI On home dose Lantus 03/13/25 Pt's latest BG are 273/221//295/102. Per report from [facility] recommended NPO. The last report from [facility] is from 02/17/25 which does not mention NPO status but does mention 1:1 close supervision/assist for all PO intake as well as 4-pureed solids. Pt can take thin liquids via tsp or straw (supervised) as well as ice chips for pleasure 03/14/25 PT with continuing elevated BG, will increase lantus to 25 units and monitor for improvement 02/07/25 Overall, Ed is considered to be at continued chronic high risk for aspiration, currently exacerbated by deconditioned status. Recommend initiate PO in small amounts, as outlined below, with very strict aspiration precautions in place. Recommend discontinue PO with decline in status, worsening respiratory status, or with frequent overt symptoms of aspiration. (9) Hypertension: Status: Chronic Assessment and plan: On pressure support and hypotensive. 03/13/25 Pt remains hypotensive. Pressure support with levophed as tolerated 03/14/25 Pt has had episodes of htn but most likely this is related to pain control (10) Edema of right upper extremity: Status: Acute Assessment and plan: POCUS showed no DVT- see exam Lymphedema +/ elevate right upper ext. (11) GERD (gastroesophageal reflux disease): Status: Chronic Assessment and plan: c/w PPI protonix 40mg iv daily (12) Depression: Status: Chronic Assessment and plan: On home dose abilify (13) Hypothyroidism: Status: Chronic Assessment and plan: On home dose levothyroxine (14) Anisocoria: Status: Acute Assessment and plan: Emergent CT reassuring. Exact etiology is unknown at this point 03/13/25 Resolved (15) Palliative care patient: Assessment and plan: Ed has HCA form that names his daughter, Alejandra to be his HCA. No alternative HCA. He has a COLST form on file- he is a DNR/DNI. Phone call to his daughter/HCA, Alejandra Federico: Alejandra did not know he was at the hospital. Reviewed reason for admission. Reviewed that this is his 4th hospital admission this year (over the last 3 months). Alejandra was unaware of these admissions. Reviewed the reason for admission. Reviewed that we can continue treating Ed with current care plan vs shift to TUBULAR PRODUCTS FABRICATOR here vs treat acute medical issues and if he recovers, consider discharge home on hospice. Alejandra expressed that she may consider taking Ed to her home to care for him if he ends up being discharged. She would appreciate hospice support if she takes him home. Alejandra will come see him tomorrow. She will consider options above. Palliative will continue to follow him while he is in the hospital. If he survives this admission, consider discharge home on hospice. (16) Dysphagia: Status: Acute Assessment and plan: Will consult ST in AM and hopefully d/w daughter who is medical POA in regards to alternative feeding methods. PT does not appear to be able to swallow safely at this point. Subjective Subjective Interval history since last seen: Pt seen and examined in his room this am. Pt does respond to verbal stimuli. POC d/w bedside nurse during ICU huddle. 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 Notes reviewed from Palliative and some concern for a Reynaldo ulcer Objective Last Vital Signs Temp 36.4 C L 03/13/25 16:00 Pulse 58 L 03/14/25 04:07 Resp 11 L 03/14/25 04:02 BP 202/64 H 03/13/25 23:13 Pulse Ox 91 L 03/14/25 04:02 Laboratory Results - last 24 hr 03/14/25 05:50 WBC 6.35 RBC 3.20 L Hgb 9.3 L Hct 29.5 L MCV 92 MCH 29.1 MCHC 31.5 L RDW 15.7 H Plt Count 199 MPV 10.7 Immature Gran % 0.5 Neutrophils % 88.9 Lymphocytes % 8.0 Monocytes % 2.4 Eosinophils % 0.0 Basophils % 0.2 Nucleated RBC % 0.0 Absolute Neutrophils 5.65 Absolute Lymphocytes 0.51 L Absolute Monocytes 0.15 Absolute Eosinophils 0.00 Absolute Basophils 0.01 Sodium 142 Potassium 3.6 Chloride 108 H Carbon Dioxide 26.0 Anion Gap 8.0 BUN 65 H Creatinine 1.1 Est GFR (CKD-EPI 2020) 70.88 Glucose 287 H Calcium 7.7 L Total Bilirubin 0.2 AST 20 ALT 10 L Alkaline Phosphatase 77 Total Protein 5.5 L Albumin 1.0 L Time Spent with Patient Time Spent with Patient: 25-34 minutes Time was spent: preparing to see the patient(eg.review tests), obtaining and/or reviewing separately otained hiistory, ordering medications,tests, procedures, referring, communicating with other health intensive care anaesthetist, indepentently interpreting results, counseling the patient and care coordination
[2025-03-14] MEDS: cefTRIAXone 2 GM/50 ML BAG IVPB (10:50)
--- NOTE | 2025-03-14 12:00 | NUR.NOTE ---
Nursing Note: Pt's son visited. Pt making good eye contact and nodding yes/no to questions. Pt's son expresses concerns, including that pt's wounds will not heal if he has no nutritional intake. Pt's son says he knows that his dad still has things he wants to do in life, like put his feet in the sand on the beach in [place] near where he grew up. He told his dad that he ought to give a feeding tube some more thought. He stated that he knew his father didn't like the idea of a feeding tube, but that he can't heal if he doesn't eat, and he can't get in the van and go on a long drive to [place] if his wounds don't heal.
[2025-03-14] MEDS: VANCOMYCIN/WATER (PEG) 750 MG/150 ML BAG 150 MG IV (13:03)
[2025-03-14] MEDS: Enoxaparin 40 MG/0.4 ML SYR SC (15:54)
[2025-03-14] MEDS: AZITHROMYCIN 500 MG in Normal Saline 250 ML 250 MG IVPB (19:54)
[2025-03-15] VITALS (90 sets, daily range): BP systolic 37–203; BP diastolic 18–70; PULSE 51–77; RESP 6–17; TEMP 35.8–36.9; O2SAT 85–95
--- NOTE | 2025-03-15 | DI.CT_ITS ---
Exam(s) CT UPPER EXTREMITY LT WO EXAM: CT UPPER EXTREMITY LT WO CLINICAL HISTORY: possible foreign body TECHNIQUE: Imaging Protocol: Axial computed tomography images with coronal and sagittal reformatted images were created and reviewed. CONTRAST MATERIAL: Intravenous: Omnipaque 350 Contrast volume:structured data in ml Contrast route:I V - Oral: yes / no COMPARISON: CT CT LOWER EXTREMITY LT W from 07/19/2022 FINDINGS: OSSEOUS: There are no fractures in the left forearm bones. Also no fractures at the level of the elb ow. SOFT TISSUES: There is no radiopaque foreign body evident in the soft tissues of the forearm. There is no gas in the soft tissues of the forearm. No distinct fluid collections evident. IMPRESSION: No radiopaque foreign body seen in the forearm. No fractures. RADIATION DOSE DELIVERED: 768.84mGy.cm Total DLP DATA REPOSITORY: All CT scans at this facility are submitted to the National Radiology Data Registry (NRDR) Dose Index Registry (DIR) with the [employer] (ACR). RADIATION OPTIMIZATION: All CT scans at this facility use at least one of these dose optimization te chniques: automated exposure control; mA and/or kV adjustment per patient size (includes targeted exa ms where dose is matched to clinical indication); or iterative reconstruction.
[2025-03-15] MEDS: LORazepam 2 MG/ML VIAL 0.5 MG IVP (01:40)
[2025-03-15] MEDS: methylPREDNISolone SUCC 40 MG VIAL IVP ×4 (01:41→19:57)
[2025-03-15] MEDS: MORPHine 4 MG/ML SYR IVP ×6 (03:23→20:44)
[2025-03-15] MEDS: Normal Saline Flush 10 ML SYR IVP ×5 (03:25→23:54)
[2025-03-15] MEDS: Albuterol/Ipratropium 3 ML UPD VIAL UPD ×2 (04:08→11:20)
[2025-03-15] MEDS: Metoprolol 5 MG/5 ML VIAL IVP ×2 (04:26→06:48)
[2025-03-15] MEDS: ACETAMINOPHEN 1,000 MG/100 ML BAG 400 MG IVPB ×3 (08:45→16:17)
[2025-03-15] MEDS: Pantoprazole 40 MG VIAL IVP (08:45)
[2025-03-15 09:33] LABS: Abs Immature Grans 0.15 10^3/uL (0.0-0.06); Absolute Basophil Count 0.08 10^3/uL (0.0-0.2); Absolute Lymphocyte Count 0.84 10^3/uL (1.2-3.4); Absolute Neutrophil Count 17.63 10^3/uL (1.2-6.7); Basophils % 0.4 %; HCT 34.6 % (40.0-50.0); HGB 10.8 g/dL (13.5-17.5); Immature Grans % 0.8 %; Lymphocytes % 4.4 %; MCH 28.8 pg (27.0-33.0); MCHC 31.2 % (32.0-36.0); MCV 92 fL (80-95); MPV 9.8 fL (8.0-11.0); Monocytes % 1.6 %; Neutrophils % 92.8 %; Platelet Count 342 10^3/uL (130-400); RBC 3.75 10^6/uL (4.36-5.78); RDW 15.7 % (11.8-14.1); RDW-SD 53.6 fL
--- NOTE | 2025-03-15 09:37 | NUR.NOTE ---
Nursing Note: Ladan from speech therapy touched base with this nurse and whe will be back to assess patient shortly. A CIB Vanilla milkshake was ordered for patient.
[2025-03-15] MEDS: Insulin Aspart 300 UNITS/3 ML PEN SC ×3 (09:50→17:44)
--- NOTE | 2025-03-15 09:51 | CMPROGNOTE_ITS ---
Date of service: 03/15/25 Time of Service: 09:51 Care Management Progress Note Progress Note Text Progress Note Text: Ed was lying in his ICU bed, receiving BBO2 from respiratory therapy. RT reported that Ed does not like things on his face, he will not keep his O2 on, so he receives BBO2 when his O2 sat drops. Per RN, Susie and his son visited this morning. Ed was not interactive this morning, so they only stayed a short time. Ed's daughter, Alejandra, has not v isited, or called to check in. CM called Alejadnra this morning, and was able to leave a message for her. VM clearly stated first and last name. CM encouraged her to visit and speak with the provider. CM's phone number also left for Alejandra, with an encouragement to call back. Ed was minimally interactive with CM. When asked if he was doing ok, he did shake his head yes. He also seemed to like having his head rubbed. Discharge Potential Discharge Needs: PCP F/U Appt and Other (palliative follow up) Anticipated Barriers to Discharge: Medical Status Patient/Family Education Needs: Review discharge instructions, discuss Ask Me Three Transportation: EMS Plan: Ed remains in the ICU. Anticipate he will return home once medically stable. He will transport via EMS, coordinated by CM. His son will continue to care for him at home, and his HH RN will resume. He will follow up with his PCP and discharge plan of care. CM will continue to follow. Social Determinants of Health Screening Will the Patient Participate in the Screening?: Unable to obtain
[2025-03-15 09:54] LABS: ALT 13 U/L (16-63); AST 16 U/L (15-37); Albumin 1.1 g/dL (3.4-5.0); Alkaline Phosphatase 82 U/L (46-116); Anion Gap 7.2 mmol/L (3-11); BUN 71 mg/dL (7-18); Bilirubin, Total 0.3 mg/dL (0.2-1.0); CO2 25.8 mmol/L (21.0-32.0); CREATININE 1.3 mg/dL (0.70-1.30); Calcium 7.6 mg/dL (8.5-10.1); Chloride 106 mmol/L (98-107); Estimated GFR 58.01 (mL/min/1.73m2); Glucose 296 mg/dL (74-106); Potassium 3.9 mmol/L (3.5-5.1); Sodium 139 mmol/L (136-145); Total Protein 5.7 g/dL (6.4-8.2)
[2025-03-15] MEDS: SODIUM CHLORIDE 0.45% 1,000 ML 100 ML IV ×2 (09:55→22:02)
--- NOTE | 2025-03-15 10:14 | PDOC.STREC ---
Date of service: 03/15/25 Time of Service: 10:[address] Recommendations: CUSTOMER SERVICE REPRESENTATIVE TEACHER consult received. This patient is familiar to this clinician from prior episodes of care. CUSTOMER SERVICE REPRESENTATIVE TEACHER attempted consult this morning with nursing present. He was tolerating room air, asleep initially though awoke to tactile/verbal prompting. Ed was repositioned to upright and was alert with eyes open/looking down and not responding to verbal questioning. Ed refused oral care as well as PO trials (ice chips, water, vanilla milkshake) by closing mouth, shaking head, and verbalizing 'NO'. Of note, this is Ed's fourth admission for aspiration pna/respiratory failure in the past 3 months. He has a longstanding history of chronic dysphagia s/p CVA with known silent aspiration. Prior MBSS completed 10/2023 identified intermittent silent aspiration with both thin and thick liquids in the setting of chronic dysphagia s/p CVA. Family/patient has accepted aspiration risks and been on a thin liquid/puree solid diet with 1:1 supervision and assist since that time. However in light of his decline and recurrent pneumonias requiring hospitalization and concern for meeting nutritional/hydrational needs, encourage continued conversations with palliative care for clarification of goals of care. At this time, aspiration risks are very high on all PO consistencies. It is unclear to this marketing underwriter if Ed is considered a candidate for alternate nutrition in light of comorbid health issues or if this would be his preference. Though should be noted that with the extent of his dysphagia, aspiration-risks would not be eliminated even if NPO. ASPIRATION PRECAUTIONS: - Please continue oral care as able/as patient allows, ideally 3-4x/daily - Consider use of mouth moisturizer for patient comfort - Elevate HOB to 30 degrees at all times - If patient is expressing interest in PO, safest delivery would be very small tsp amounts of liquid or puree solid, after oral care is completed, in bolt upright positioning. CUSTOMER SERVICE REPRESENTATIVE TEACHER to continue to follow.
[2025-03-15] MEDS: Normal Saline 1,000 ML 500 ML IV (10:35)
[2025-03-15] MEDS: cefTRIAXone 2 GM/50 ML BAG IVPB (10:36)
[2025-03-15] MEDS: VANCOMYCIN/WATER (PEG) 750 MG/150 ML BAG 150 MG IV (11:37)
--- NOTE | 2025-03-15 12:24 | W.PM.PROGNOT ---
Date of Service Date of service: 03/15/25 Time of Service: 12: Assessment and Plan Assessment and plan (1) Severe sepsis: Status: Acute Assessment and plan: Due to respiratory source. Pt remains on levophed and his BP is at (87/63). On Abx. 03/13/25 Resolved. Continue with zmax/rocephin and vanc 03/14/25 WBC much improved 03/15/25 Pt's wbc significantly decreased yesterday, but is elevated today. Infection vs inflammation. C/W rocephin and zmax (2) Acute respiratory failure with hypoxia and hypercapnia: Status: Acute Assessment and plan: Pt is currently on 50% high flow system. 03/13/25 Pt is currently on 90% 2LNC. Continue to wean as tolerated 03/14/25 Pt is currently on 91% RA 03/15/25 Maintaining sat currently (3) Pneumonia: Assessment and plan: On Abx, blood cultures pending. 03/13/25 Blood cultures show MRSA sensitive to vanc. CW vancomycin. Blood cultures x2 are positive 03.14.25 pt with staph aureus positive blood cultures x2. Repeat today to ensure resolution 03/15/25 Repeat blood cultures negative at 24 hours. Continue to monitor until resolution (4) Seizure: Status: Acute Assessment and plan: On Keppra 250mg IV q12 hours and Valproic acid 250mg IV q6 hours No seizure activity noted (5) Pressure injury: Status: Acute Assessment and plan: Note outpatient palliative visit last month with concern for possible Reynaldo ulcer. 03/13/25 Wound care consult placed. (6) CVA, old, aphasia: Status: Acute Assessment and plan: With Aphasia, bed bound, total care. (7) Chronic pain: Status: Chronic Assessment and plan: PO Morphine at home. He is on IV MS here and home dose Gabapentin. 03/13/25 Increase morphine to 4mg IV q4 hours as pt seems to be in pain 03/14/25 HTN seems to be directly attributed to pain. C/w fairly aggressive pain control (8) Diabetes: Assessment and plan: BG AC and HS with SSI On home dose Lantus 03/13/25 Pt's latest BG are 273/221//295/102. Per report from NS, ST recommended NPO. The last report from ST I see is from 02/17/25 which does not mention NPO status but does mention 1:1 close supervision/assist for all PO intake as well as 4-pureed solids. Pt can take thin liquids via tsp or straw (supervised) as well as ice chips for pleasure 03/14/25 PT with continuing elevated BG, will increase lantus to 25 units and monitor for improvement 02/07/25 Overall, Ed is considered to be at continued chronic high risk for aspiration, currently exacerbated by deconditioned status. Recommend initiate PO in small amounts, as outlined below, with very strict aspiration precautions in place. Recommend discontinue PO with decline in status, worsening respiratory status, or with frequent overt symptoms of aspiration. (9) Hypertension: Status: Chronic Assessment and plan: On pressure support and hypotensive. 03/13/25 Pt remains hypotensive. Pressure support with levophed as tolerated 03/14/25 Pt has had episodes of htn but most likely this is related to pain control (10) Edema of right upper extremity: Status: Acute Assessment and plan: POCUS showed no DVT- see exam Lymphedema +/ elevate right upper ext. (11) GERD (gastroesophageal reflux disease): Status: Chronic Assessment and plan: c/w PPI protonix 40mg iv daily (12) Depression: Status: Chronic Assessment and plan: On home dose abilify (13) Hypothyroidism: Status: Chronic Assessment and plan: On home dose levothyroxine (14) Anisocoria: Status: Acute Assessment and plan: Emergent CT reassuring. Exact etiology is unknown at this point 03/13/25 Resolved (15) Palliative care patient: Assessment and plan: Ed has HCA form that names his daughter, Alejandra to be his HCA. No alternative HCA. He has a COLST form on file- he is a DNR/DNI. Phone call to his daughter/HCA, Alejandra Federico: Alejandra did not know he was at the hospital. Reviewed reason for admission. Reviewed that this is his 4th hospital admission this year (over the last 3 months). Alejandra was unaware of these admissions. Reviewed the reason for admission. Reviewed that we can continue treating Ed with current care plan vs shift to KETTLE ROOM HELPER here vs treat acute medical issues and if he recovers, consider discharge home on hospice. Alejandra expressed that she may consider taking Ed to her home to care for him if he ends up being discharged. She would appreciate hospice support if she takes him home. Alejandra will come see him tomorrow. She will consider options above. Palliative will continue to follow him while he is in the hospital. If he survives this admission, consider discharge home on hospice. (16) Dysphagia: Status: Acute Assessment and plan: Will consult ST in AM and hopefully d/w daughter who is medical POA in regards to alternative feeding methods. PT does not appear to be able to swallow safely at this point. (17) Malnutrition: Status: Acute Assessment and plan: Speech therapy note reviewed. At this time, it is my intention to continue with PO feeds per ST guidelines. I will add a portion of the ST consult to this note. Pt does have aspiration risks but unless new information presents itself, it would appear that both the pt and family are willing to accept aspiration risk. Pt does have a diet order in the chart for 1:1 supervision and pureed/extremely thick diet. excerpt from note Of note, this is Ed's fourth admission for aspiration pna/respiratory failure in the past 3 months. He has a longstanding history of chronic dysphagia s/p CVA with known silent aspiration. Prior MBSS completed 10/2023 identified intermittent silent aspiration with both thin and thick liquids in the setting of chronic dysphagia s/p CVA. Family/patient has accepted aspiration risks and been on a thin liquid/puree solid diet with 1:1 supervision and assist since that time. However in light of his decline and recurrent pneumonias requiring hospitalization and concern for meeting nutritional/hydrational needs, encourage continued conversations with palliative care for clarification of goals of care. At this time, aspiration risks are very high on all PO consistencies. It is unclear to this resume writer if Ed is considered a candidate for alternate nutrition in light of comorbid health issues or if this would be his preference. Though should be noted that with the extent of his dysphagia, aspiration-risks would not be eliminated even if NPO. Subjective Subjective Interval history since last seen: PT seen and examined in his room this am. PT does open eyes to verbal stimuli but does not engage in conversation. Per my discussion with CM (Brianna Duran) a message was left on [employer] phone but this message has not been responded to. POC d/w CM as well as with bedside nurse during ICU huddle Exam Narrative Exam Narrative: Opens eyes to verbal stimuli moaning in pain Neck: no JVD Eyes 2mm bilat Respiration: 93% room air, no amu, coarse breath sounds bilat Cardiovascular RRR no MRG, Left radial pulse not palpable. 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 Objective Last Vital Signs Temp 36.1 C L 03/15/25 11:39 Pulse 64 03/15/25 11:20 Resp 15 03/15/25 11:20 BP 154/64 H 03/15/25 11:39 Pulse Ox 88 L 03/15/25 11:35 Laboratory Results - last 24 hr 03/15/25 09:20 WBC 19.00 H RBC 3.75 L Hgb 10.8 L Hct 34.6 L MCV 92 MCH 28.8 MCHC 31.2 L RDW 15.7 H Plt Count 342 D MPV 9.8 Immature Gran % 0.8 Neutrophils % 92.8 Lymphocytes % 4.4 Monocytes % 1.6 Eosinophils % 0.0 Basophils % 0.4 Nucleated RBC % 0.0 Absolute Neutrophils 17.63 H Absolute Lymphocytes 0.84 L Absolute Monocytes 0.30 Absolute Eosinophils 0.00 Absolute Basophils 0.08 Sodium 139 Potassium 3.9 Chloride 106 Carbon Dioxide 25.8 Anion Gap 7.2 BUN 71 H Creatinine 1.3 Est GFR (CKD-EPI 2020) 58.01 Glucose 296 H Calcium 7.6 L Total Bilirubin 0.3 AST 16 ALT 13 L Alkaline Phosphatase 82 Total Protein 5.7 L Albumin 1.1 L Time Spent with Patient Time Spent with Patient: 35-49 minutes Time was spent: preparing to see the patient(eg.review tests), obtaining and/or reviewing separately otained hiistory, ordering medications,tests, procedures, referring, communicating with other health behavioral health care coordinator, indepentently interpreting results, counseling the patient and care coordination
--- NOTE | 2025-03-15 14:59 | PCPN_ITS ---
Date of service: 03/15/25 Time of Service: 13:30 Assessment and Plan Assessment and plan (1) Malnutrition: Status: Acute (2) Dysphagia: Status: Acute (3) Aspiration pneumonia: Status: Acute (4) CVA, old, aphasia: Status: Acute (5) Acute respiratory failure with hypoxia and hypercapnia: Status: Acute (6) Severe sepsis: Status: Acute (7) Chronic skin ulcer: Status: Acute (8) Aphasia: Status: Acute (9) Chronic pain: Status: Chronic Assessment and plan: recommend consider changing morphine order to 4mg q2h PRN (10) Advanced care planning/counseling discussion: Status: Acute Assessment and plan: At this time Palliative is recommending an urgent Ethics consult. Consult requested. Ed has been hospitalized 4 times recently for aspiration PNA; he has a long history of aspiration PNA, and historically family/Ed has opted for no artificial nutrition and were okay with risk of aspiration with ongoing oral intake to support his quality of life. He is now not engaging in UNDERWEAR CUTTER or other care during this hospitalization, a shift from previous hospitalizations. - His daughter/HCA was informed on Saturday of the severity of his condition and hospice was reviewed as an option. She told staff she would present over the weekend to make a plan, and she is now not engaging in repeat phone calls. - His son/caregiver was recommended to consider hospice a month ago, which he deferred. Historically he has wanted all types of care/treatment to sustain's Ed's life. He has intermittently refused Palliative involvement Ethics consult to review POC: NPO vs comfort feeds vs TPN; surgery at [facility] would likely not feel comfortable placing a G tube in Mr. Caballero. They are having difficulty getting central line access, so TPN may not be a temporary option. Ed will not regain swallowing abilities to the point where he would sustain his own life. He is refusing care/treatment and is not formally on comfort directed care, nor does he have capacity to communicate this preference. - he has terminal pressure ulcers - repeat hospitalizations w/severe sepsis - conflicting care plans from HCA and caregiver - recommend post Ethics consult hospital coordinate a family meeting to review recommendations, etc At this time, every effort to provide Mr. Caballero with all treatments aligning with life sustaining treatment should be offered, with the exception of DNR/I. Reilly REMY would want trials of art nutrition, hydration and abx. - Would need HCA to formally consent to comfort directed care prior to discontinuing LST at this time. Subjective Subjective Interval history since last seen: Ed remains hospitalized in ICU 2/2 severe sepsis, c/b aspiration PNA Ed was last seen by palliative on Saturday. At that time his HCA did answer the phone and engage in goals of care conversation which was leaning towards transitioning Ed towards comfort directed care, returning home with hospice supports. However, daughter did not present over the weekend like she said, and has not called back anyone since then. several calls and at least on VM have been left for her. her VM box is historically full, which it was again at 15:15 today when PC attempted to contact. Ed is not engaging as much as he previously has. refusing care, pushing people away. more weakness. - he is unable to answer questions today; mumbles occasionally or closes eyes Pain: did have furrowed brows earlier w/some agitation, resolved w/morphine 4mg, currently at q4h, last received around 3 hours ago. Skin:at least 10 wounds around his body, covered in mepiplex. previous concerns raised w/terminal ulcers; reduced to no pulses and coolness all 4 extremities; tried w/doppler x2; arterial line removed; PO: now NPO per UNDERWEAR CUTTER. Ed refused all oral intake w/manager service desk eval today, historically he does engage, today he did not. continue oral care; - albumin and total protein low - historically both patient and family did not want artificial nutrition; he does not have central line access; - he did receive IVF today to help w/low BPs w/improvement Resp: treatment for asp PNA, 4th hospitalization for this in 3 mos; historically comfortable w/aspiration risks w/PO intake. now requiring 1L o2 to maintain sats, he does not like it and keeps pulling it off - WBCs are trending up Social:son Susie has visited daily, comes in AM to read him the paper, only stayed briefly this morning. historically Susie has wanted full treatment and care, refusing hospice supports, offered to them in home on 02/09; Susie is Ed's paid caregiver - daughter Alejandra is his HCA; she has not visited to date during last few hospitalizations; historically she has not returned phone calls, she refuses to be in same space as son. RONDA was able to leave a VM this morning, encouraging her to visit/call back, VM box full when PC attempted Exam Narrative Exam Narrative: General: chronically ill and frail appearing male, lying in ICU bed w/HOB elevated; randomly reaches L arm up throughout visit x3; intermittent groaning/mumbling HEENT: opens eyes sporadically, will make eye contact, then look away; edentulous; MMM Resp: between 10 and 20 RR; unlabored; removes O2 during visit, O2 sats remain 87-90% after 3m like this Ext: cool, pale Psych: no meaningful communication; does not engage conversation after making eye contact Objective Last Vital Signs Temp 97.0 F L 03/15/25 11:39 Pulse 64 03/15/25 11:20 Resp 15 03/15/25 11:20 BP 148/62 H 03/15/25 12:52 Pulse Ox 88 L 03/15/25 11:35 Laboratory Results - last 24 hr 03/15/25 09:20 WBC 19.00 H RBC 3.75 L Hgb 10.8 L Hct 34.6 L MCV 92 MCH 28.8 MCHC 31.2 L RDW 15.7 H Plt Count 342 D MPV 9.8 Immature Gran % 0.8 Neutrophils % 92.8 Lymphocytes % 4.4 Monocytes % 1.6 Eosinophils % 0.0 Basophils % 0.4 Nucleated RBC % 0.0 Absolute Neutrophils 17.63 H Absolute Lymphocytes 0.84 L Absolute Monocytes 0.30 Absolute Eosinophils 0.00 Absolute Basophils 0.08 Sodium 139 Potassium 3.9 Chloride 106 Carbon Dioxide 25.8 Anion Gap 7.2 BUN 71 H Creatinine 1.3 Est GFR (CKD-EPI 2020) 58.01 Glucose 296 H Calcium 7.6 L Total Bilirubin 0.3 AST 16 ALT 13 L Alkaline Phosphatase 82 Total Protein 5.7 L Albumin 1.1 L
[2025-03-15] MEDS: Enoxaparin 40 MG/0.4 ML SYR SC (15:25)
--- NOTE | 2025-03-15 18:41 | WOUNDCONS ---
Date of service: 03/15/25 Time of Service: 18:41 Wound Initial Evaluation Narrative Narrative: Patient is a 74 year old male with a lengthy past medical history including stroke with residual right-sided hemiparesis and aphasia, DM2, GERD, dysphagia, asthma, aspiration pneumonia, hypoxia, MRSA bacteremia, osteomyelitis, incontinence of bowel and failure to thrive. The patient was admitted on 03/10/25 for severe sepsis presumably from a respiratory source. The patient is bed-bound and has numerous severe pressure injuries with eschar that would require debridement. In total 13 open wounds are covered with dressings. This account underwriter discussed with the patient the reason for the wound consult and that the information will be entered into the patients medical record. The patient watched me while I was talking with him and he continued with a blank stare. This account underwriter reviewed the H&P, recent progress and palliative care notes, reviewed vital signs and allergy list. The patient has a BMI of 25.3 and has MRSA precautions in place. Wound Left Foot Dorsal Aspect Proximal Wound: Wound Type: Pressure Ulcer (Wound is a clear raised blister) Pressure Ulcer Stage: II Wound Length: 1.2 cm Wound Width: 2 cm Wound Drainage Amount: None Additional Other Comments: Clear Optiview dressing placed over the 2 dorsal aspect wounds on the left foot. Left Foot Dorsal Aspect Distal Wound: Wound Type: Pressure Ulcer (Wound is a clear raised blister at time of assessment) Pressure Ulcer Stage: II Wound Length: 2.6 cm Wound Width: 1 cm Wound Drainage Amount: None Additional Other Comments: Clear Optiview dressing placed on the 2 dorsal aspect wounds of the left foot. Left Lateral Foot: Wound Type: Pressure Ulcer Pressure Ulcer Stage: Eschar/Unstageable (eschar is raised from the wound bed) Wound Length: 3.5 cm Wound Width: 2.4 cm Wound Debridement Method: Other (Therahoney for moisture and autolytic debridement) Left Heel: Wound Type: Pressure Ulcer Pressure Ulcer Stage: Eschar/Unstageable Wound Length: 6.5 cm Wound Width: 8.2 cm Wound Depth: 0.1 cm Wound Drainage Odor: Foul Odor Wound Debridement Method: Other (Therahoney for moisture and autolytic debridement) Left Foot Plantar Aspect: Wound Type: Diabetic Ulcer Wound Bed Greatest Portion: Black (Eschar) Wound Length: 0.5 cm Wound Width: 0.5 cm Wound Drainage Amount: None Wound Debridement Method: Other (Therahoney for moisture and autolytic debridement) Additional Other Comments: Wound is raised surrounded by a callous Right Lateral Calf: Pressure Ulcer Stage: II Wound Surrounding Tissue Appearance: [place] Wound Length: 1 cm Wound Width: 0.5 cm Wound Depth: 0.1 cm Wound Drainage Amount: Minimal Wound Drainage Odor: None/Absent Wound Drainage Description: Sero Sanguineous Right Lateral Foot 5th Metatarsal: Wound Type: Pressure Ulcer Pressure Ulcer Stage: Eschar/Unstageable Wound Length: 2 cm Wound Width: 2.5 cm Wound Depth: 0.1 cm Wound Drainage Amount: Minimal Wound Drainage Odor: Foul Odor Wound Debridement Method: Other (Therahoney for moisture and autolytic debridement) Right Lateral Foot Plantar Aspect: Wound Type: Pressure Ulcer Pressure Ulcer Stage: Eschar/Unstageable Wound Length: 0.5 cm Wound Width: 0.5 cm Wound Debridement Method: Other (Therahoney for moisture and autolytic debridement) Right Medial Foot Plantar Aspect: Wound Type: Pressure Ulcer Pressure Ulcer Stage: Eschar/Unstageable Wound Length: 1 cm Wound Width: 1.2 cm Wound Drainage Amount: None Wound Debridement Method: Other (Therahoney for moisture and autolytic debridement) Right Sacrum: Wound Type: Pressure Ulcer Pressure Ulcer Stage: IV Wound General Appearance: Necrotic, Muscle Visible and Tunneling Percent of Wound Bed Granulated/Red: 60 Percent of Wound Bed Eschar/Black: 40 Wound Length: 5.5 cm Wound Width: 4.2 cm Wound Depth: 1 cm Wound Drainage Amount: Large Wound Drainage Odor: Strong and Foul Odor Wound Drainage Description: Bloody and Purulent Additional Other Comments: Alginate dressing applied to wound bed for moderate to heavy exudate then covered with an Optiview as the secondary dressing. Gluteal Cleft: Wound Type: Pressure Ulcer Pressure Ulcer Stage: Eschar/Unstageable Percent of Wound Bed Slough/Yellow: 50 Wound Length: 5.5 cm Wound Width: 5.5 cm Wound Depth: 0.1 cm Wound Drainage Amount: Moderate Wound Drainage Description: Sero Sanguineous Right Ischium: Pressure Ulcer Stage: III Wound General Appearance: Reddened Wound Length: 8.7 cm Wound Width: 5.5 cm Wound Depth: 0.1 cm Wound Drainage Amount: Moderate Wound Drainage Description: Sero Sanguineous Right Lateral Scrotum: Wound Type: Maceration Wound Length: 1.3 cm Wound Width: 1 cm Wound Depth: 0.1 cm Additional Other Comments: Cleaned with Skintegrity and a thin layer of Zinc oxide skin protectant lotion applied to scrotum for protection from incontinence Circulation, Sensation, Motion Peripheral Pulse Strength: Absent Capillary Refill: Greater than 3 seconds Skin Temperature: Cool Skin Color: Pale Additional Other Comments: Ultrasound doppler was used and a faint weak pulse was heard for bilateral pedal pulses. Pain Pain Scale Used: Visual Analog Scale 0-10 Additional Other Comments: Patient wears a Fentanyl 100mcg patch for pain relief and has prn meds available for prn usage. Wound Summary Wound Summary: Photo 1: Left foot has healed amputated great toe and has 2 separate raised blisters on the dorsal aspect. In the photo they are identified as proximal and distal raised blisters. The left foot also has a lateral wound with 100% raised eschar. Photo 2: Bilateral lower extremities are shown with wounds identified as right lateral calf and right lateral 5th metatarsal. There are 2 wounds on the plantar aspect identified as right lateral plantar aspect and right medial plantar aspect. The left heel shown has 100% eschar and there is a calloused diabetic ulcer on the left foot plantar aspect. Photo 3: Patient is left side-lying with an open wound on the right sacrum with undermining, epibole and eschar. The wound in the gluteal cleft is difficult to visualize and is surrounded by a purplish deep tissue pressure injury. Also in the picture is the open area on right ischium. And lastly redness on the right lateral scrotum shows a circular excoriation. Photo Photo: PHOTO 1 PHOTO 2 PHOTO 3 Treatment/Dressing Change Topicals/Ointments: Other (Therahoney applied to wounds with eschar. ) Cleanse With: Other (Some wounds had gauze adhered to the wound bed and Skintegrity wound cleanser was used to loosen the gauze and clean the wound.) Dressing Types: Mepilex w/Border (Clear Optiview also works well for visual of wounds) and Skin Prep Nutrition Education Reviewed Nutrition Education: Yes Note: The patient is aphasic and does not verbalize needs well. The patient has known to prefer milkshakes and has a CHO diet order for supervision 1:1 with pureed and extremely thick liquids. The patient is edentulous, is also not eating or drinking at this time and is not following commands to do so. This account underwriter spoke to the patient with education focused on increased protein intake and the patient did not appear to comprehend the discussion. Recomendation Recomendation:: Remove dressings daily Use Skintegrity wound cleanser to spray on wound, let dwell for 2 minutes and pat dry (or use dampened 4x4 gauze) Apply Sureprep to elizabeth-wound areas to prevent skin breakdown from adhesives Apply Therahoney to blackened eschar for autolytic debridement Apply variety of sized foam border dressings to pressure injuries for moisture balance and to protect from friction For Sacral Stage 4 wound Apply alginate dressing for moisture absorption as primary then either an Optiview or a foam border as a secondary dressing Please reposition patient Q2 and as needed using pillows and wedges for offloading Treatment Time Time Total Time Spent with Patient: 120 minutes
[2025-03-15] MEDS: Insulin Glargine 300 UNITS/3 ML PEN 25 UNITS SC (19:57)
[2025-03-15] MEDS: AZITHROMYCIN 500 MG in Normal Saline 250 ML 250 MG IVPB (20:45)
[2025-03-16] VITALS (62 sets, daily range): BP systolic 90–178; BP diastolic 50–94; PULSE 44–115; RESP 7–23; TEMP 31–36.2; O2SAT 60–100
--- NOTE | 2025-03-16 | DI.RAD_ITS ---
Exam(s) XR PORTABLE CHEST AP EXAM: XR PORTABLE CHEST AP CLINICAL HISTORY: hypoxia. TECHNIQUE: 2D digital imaging was performed. COMPARISON: CR XR PORTABLE CHEST AP from 03/10/[address] CHEST PE CTA from 03/10/2025 FINDINGS: Single AP portable view. Heart size is upper normal. The mediastinum is not widened. There is no radiographic improvement in the previously described bilateral infiltrates and in the the se have somewhat further progressed and confluent in the left lower lobe where there is also a modera te sized left pleural effusion now evident, not previously present. There is no obvious pleural effu virgilio on the opposite-right side. IMPRESSION: Further deterioration. More confluent infiltrate in the left lower lobe and moderate sized left pleu ral effusion now evident. There is also no radiographic improvement in the right lung infiltrate. Report called by myself to ICU hospitalist 03/16/2025 at 6:03 p.m. DATA REPOSITORY: RADIATION DOSE DELIVERED:
[2025-03-16] MEDS: ACETAMINOPHEN 1,000 MG/100 ML BAG 400 MG IVPB ×2 (01:23→16:30)
[2025-03-16] MEDS: Normal Saline 500 ML IV (03:01)
[2025-03-16 06:52] LABS: Abs Immature Grans 0.05 10^3/uL (0.0-0.06); Absolute Basophil Count 0.02 10^3/uL (0.0-0.2); Absolute Lymphocyte Count 0.76 10^3/uL (1.2-3.4); Absolute Monocyte Count 0.14 10^3/uL (0.1-0.8); Absolute Neutrophil Count 8.27 10^3/uL (1.2-6.7); Basophils % 0.2 %; HCT 26.8 % (40.0-50.0); HGB 8.4 g/dL (13.5-17.5); Immature Grans % 0.5 %; Lymphocytes % 8.2 %; MCH 28.9 pg (27.0-33.0); MCHC 31.3 % (32.0-36.0); MCV 92 fL (80-95); MPV 10.4 fL (8.0-11.0); Monocytes % 1.5 %; Neutrophils % 89.6 %; Platelet Count 158 10^3/uL (130-400); RBC 2.91 10^6/uL (4.36-5.78); RDW 15.5 % (11.8-14.1); RDW-SD 52.7 fL; WBC 9.24 10^3/uL (4.4-10.8)
[2025-03-16 07:16] LABS: ALT 9 U/L (16-63); AST 17 U/L (15-37); Alkaline Phosphatase 70 U/L (46-116); Anion Gap 6.7 mmol/L (3-11); BUN 67 mg/dL (7-18); Bilirubin, Total 0.2 mg/dL (0.2-1.0); CO2 24.3 mmol/L (21.0-32.0); CREATININE 1.2 mg/dL (0.70-1.30); Calcium 7.5 mg/dL (8.5-10.1); Chloride 109 mmol/L (98-107); Estimated GFR 63.85 (mL/min/1.73m2); Glucose 111 mg/dL (74-106); Potassium 3.2 mmol/L (3.5-5.1); Sodium 140 mmol/L (136-145); Total Protein 4.9 g/dL (6.4-8.2)
[2025-03-16 07:24] LABS: Vancomycin, Random 23.4 ug/mL
[2025-03-16] MEDS: Pantoprazole 40 MG VIAL IVP (08:41)
[2025-03-16] MEDS: methylPREDNISolone SUCC 40 MG VIAL IVP ×2 (08:41→20:35)
[2025-03-16] MEDS: Normal Saline Flush 10 ML SYR IVP ×3 (08:42→21:29)
[2025-03-16] MEDS: SODIUM CHLORIDE 0.45% 1,000 ML 100 ML IV (08:44)
--- NOTE | 2025-03-16 09:00 | PDOC.CMPRO ---
Date of service: 03/16/25 Time of Service: 09:00 Care Management Progress Note Progress Note Text Progress Note Text: Ed had a palliative care consult yesterday. CM was present when Palliative provider attempted to call Alejandra. No answer and voice mail full. CM called Alejandra again this morning, VM still full, unable to leave a message X 2 Wound care consult was also performed last night. Ed has 13 documented wounds that all require care. Ethics committee is meeting tomorrow at 1pm regarding Ed's care. Anjelica Madden CM from [facility] called for an updated today. Ed was lying in the bed when CM met with him today. He was unable to converse, but he did make eye contact when spoken to. Discharge Potential Discharge Needs: Consult (podiatry consult recommended by wound care nurse) and PCP F/U Appt Anticipated Barriers to Discharge: Medical Status Patient/Family Education Needs: Review discharge instructions, discuss Ask Me Three Transportation: EMS Plan: Ed remains in the ICU. Anticipate he will return home once medically stable. He will transport via EMS, coordinated by RONDA. His son will continue to care for him at home, and his HH RN will resume. He will follow up with his PCP and discharge plan of care. CM will continue to follow. Social Determinants of Health Screening Will the Patient Participate in the Screening?: Unable to obtain Anticipated HH Services Anticipated HH Services at Discharge [facility], RN.
[2025-03-16] MEDS: cefTRIAXone 2 GM/50 ML BAG IVPB (10:34)
[2025-03-16] MEDS: MORPHine 4 MG/ML SYR IVP ×6 (11:16→22:26)
--- NOTE | 2025-03-16 12:30 | PGE_ITS ---
Date of Service Date of service: 03/31/25 Time of Service: 12:30 Assessment and Plan Assessment and plan (1) Severe sepsis: Status: Acute Assessment and plan: Met criteria on admission, due to respiratory source. Some low BPs but related to poor po, responds to fluids. Day 6 antibiotics. Respiratory status back at baseline off O2, ceftriaxone/azithro as 6 days sufficient to treat pneumonia. Continue vancomycin as +blood cultures with MRSA on 03/10. (2) Acute respiratory failure with hypoxia and hypercapnia: Status: Acute Assessment and plan: Resolved, on room air since 03/14 (3) Pneumonia: Assessment and plan: stop ceftriaxone/azithro after 6 days IV therapy. (4) Seizure: Status: Acute Assessment and plan: On Keppra 250mg IV q12 hours and Valproic acid 250mg IV q6 hours No seizure activity noted (5) Pressure injury: Status: Acute Assessment and plan: Note outpatient palliative visit last month with concern for possible terminal ulcer. Wound care consult appreciated. Debridement indicated, but without nutrition there is no way these will heal. At this point I don't think it makes sense to put him through sugery. Defer the referral. (6) CVA, old, aphasia: Status: Acute Assessment and plan: With Aphasia, bed bound, total care. (7) Chronic pain: Status: Chronic Assessment and plan: PO Morphine at home and fentanyl patch Has IV morphine prn here. Continue to prioriize pain management, even if he needs boluses for BP (8) Diabetes: Assessment and plan: BG AC and HS with SSI On home dose Lantus (9) Edema of right upper extremity: Status: Acute Assessment and plan: POCUS showed no DVT- see exam Lymphedema +/ elevate right upper ext. (10) GERD (gastroesophageal reflux disease): Status: Chronic Assessment and plan: c/w PPI protonix 40mg iv daily (11) Depression: Status: Chronic Assessment and plan: Off home dose abilify since NPO (12) Hypothyroidism: Status: Chronic Assessment and plan: Off home dose levothyroxine since NPO (13) Anisocoria: Status: Acute Assessment and plan: Emergent CT reassuring. Exact etiology is unknown at this point, since resolved (14) Palliative care patient: Assessment and plan: Ed has HCA form that names his daughter, Alejandra to be his HCA. No alternative HCA. Unfortately we've been unable to contact her since 03/12. He has a COLST form on file- he is a DNR/DNI. Appreciate palliative consult and I certainly agree with Ethic consult. Given what we know of Ed's goals of care and his current prognosis, I would recommend EXPERIMENTAL PLASTICS FABRICATOR status, but would like his HCA to engage (15) Dysphagia: Status: Acute Assessment and plan: Chronic high risk for aspiration, now NPO due to recurrent aspiration events. He previously declined feeding tube. (16) Malnutrition: Status: Acute Assessment and plan: Appreciate COMMUNICATION SPECIALIST and nutrition input on this case. He is currently unable to take po, see above. We would need better access to consider TPN, but I think that TPN would probably be futile. Subjective Subjective Patient reports: denies vomiting or fever Interval history since last seen: Events: Wound consult and palliative care consults 03/15 500ml NS bolus overnight for low BP He opens eyes to questions but not vocalizing. Shakes head no when asked about pain. He is not eating or drinking. Exam Narrative Exam Narrative: Opens eyes to verbal stimuli, not moaning Eyes 3mm bilat Respiration:On room air, normal effort, coarse breath sounds bilat Cardiovascular RRR no MRG Abdomen is non-distended, soft and non-tender ext: warm, 1+ edema LE, puffy edema rigth arm. Skin with multiple pressure areas: see wounds note decreased muscle mass throughout, bitemporal wasting. Objective Last Vital Signs Temp 36.0 C L 03/16/25 11:34 Pulse 55 L 03/16/25 11:08 Resp 14 03/16/25 11:08 BP 132/60 03/16/25 10:55 Pulse Ox 86 L 03/16/25 11:35 Laboratory Results - last 24 hr 03/16/25 05:30 WBC 9.24 RBC 2.91 L Hgb 8.4 L D Hct 26.8 L MCV 92 MCH 28.9 MCHC 31.3 L RDW 15.5 H Plt Count 158 D MPV 10.4 Immature Gran % 0.5 Neutrophils % 89.6 Lymphocytes % 8.2 Monocytes % 1.5 Eosinophils % 0.0 Basophils % 0.2 Nucleated RBC % 0.0 Absolute Neutrophils 8.27 H Absolute Lymphocytes 0.76 L Absolute Monocytes 0.14 Absolute Eosinophils 0.00 Absolute Basophils 0.02 Sodium 140 Potassium 3.2 L Chloride 109 H Carbon Dioxide 24.3 Anion Gap 6.7 BUN 67 H Creatinine 1.2 Est GFR (CKD-EPI 2020) 63.85 Glucose 111 H Calcium 7.5 L Total Bilirubin 0.2 AST 17 ALT 9 L Alkaline Phosphatase 70 Total Protein 4.9 L Albumin 1.0 L Random Vancomycin 23.4 Time Spent with Patient Time Spent with Patient: >50 minutes Time was spent: preparing to see the patient(eg.review tests), obtaining and/or reviewing separately otained hiistory, ordering medications,tests, procedures, referring, communicating with other health insurance healthcare consultant, indepentently interpreting results, counseling the patient and care coordination
[2025-03-16] MEDS: VANCOMYCIN/WATER (PEG) 750 MG/150 ML BAG 150 MG IV (12:51)
--- NOTE | 2025-03-16 16:24 | W.SPSTE ---
Date of service: 03/16/25 Time of Service: 16:00 Subjective Clinical (Bedside) Swallow Evaluation - Inpatient Speech Language Pathology Referred by: Walt Jean Start time: 16:00 End time: 16:24 Total patient contact: 24 min Referral Type: Routine Swallow Consult Precautions: Contact, Fall, DNR/DNI Reason for Referral/HPI: Ed is a 75y/o M with DM2, anxiety, chronic opioid dependence, and prior CVA with residual chronic profound receptive/expressive aphasia, hemiplegia, and dysphagia, well known to POLICE COMMUNICATIONS DISPATCHER service in prior admissions. Admitted now with septic pna (presumed aspiration)) and respiratory failure, as well as concern for inefected wounds (this was actually the reason he was brought to ER upon concern from home health nurses. This is is his 4th admission with aspiration pneumonia and hypoxic respiratory failure in the last 3 months. At baseline he is on a puree diet and is a known high risk of aspiration complications. He also has multiple pressure ulcers ranging from stage II to IV as well as unstageable. Palliative recently visited Ed on request of home health due to ulcers as they thought he may be more appropriate for hospice, however, patient/family were not interested in pursuing hospice at that time. Palliative was consulted this hospitalization and given difficulty communicating with Ed's HCA about preferences, recent progression of medical decline, decision-making/capacity questions, and additional questions about candidacy/preferences, an ethics consult has been requested and is scheduled for 03/17/25. MBSS from 10/2023 indicated moderate to severe oral pharyngeal sensorimotor dysphagia with delayed swallow onset and gross discoordination, resulting in silent aspiration with thin and mildly thick liquids. Thicker liquids resulted in prolonged swallow initiation, with silent aspiration from spillover from pyriforms. A chin tuck also increased quantity of aspiration (suspect increased coordination demands negatively impacting swallow function). See report for more information. POLICE COMMUNICATIONS DISPATCHER team recommended L5 minced/moist solids and thin liquids with strict aspiration precautions, including close supervision, bolt upright positioning, oral care before/after meals, and small single bites/sips. POLICE COMMUNICATIONS DISPATCHER IMPRESSIONS & RECOMMENDATIONS: Ed presents this date with increased lethargy, and profound (worsened) oral-pharyngeal dysphagia, characterized by complete absence of pharyngeal swallow initiation and difficulty managing ice chips in the oral phase. Ed moves ice around in his mouth and attempts oral transit but is unable to initiate a pharyngeal swallow, resulting in wet breathing/voice sounds, gurgly breathing, and very weak, unsuccessfull cough attempts. With multiple trials of ice chips, he desats to 87% O2 and despite opportunities to recover does not recover above 90% while POLICE COMMUNICATIONS DISPATCHER is present. (session began at 94%). At baseline he was known to aspirate with both thick and thin liquids, but this was minimized with strict aspiration precautions such as very small sip size, 1:1 supervision, bolt upright positioning and strict oral care precautions. Given current and recent presentations, documented baseline dysphagia severity, and repeat hospitalizations from aspiration pneumonia, it appears that his swallow has continued to decline with repeat illnesses exacerbated by inactivity and malnutrition. Discussions with palliative care and family in the past have been inconclusive regarding feeding tube placement and It should be noted that feeding tube placement would certainly address nutrition but that with the extent of his dysphagia, aspiration-risks would not be eliminated even when NPO. Overall, Ed is considered to be at continued acute high risk for aspiration, currently exacerbated by deconditioned status. Recommend NPO status given trials observed this date acutely exacerbating respiratory status. For stimulation, nursing should provide therapeutic trials of metal spoon dipped in ice water for oral comfort and naturalistic swallow stimulation. These should be provided at a slow rate (~1 per minute) to minimize swallow apnea impact on O2 saturation. FURTHER INPATIENT POLICE COMMUNICATIONS DISPATCHER SERVICES: Patient to be followed while on unit Suggested Referrals/Consults: Computer Operations Technician DISCHARGE RECOMMENDATIONS: Recommend POLICE COMMUNICATIONS DISPATCHER services at home health DIET RECOMMENDATIONS: NPO ASPIRATION PRECAUTIONS: - Please continue oral care as able/as patient allows, ideally 3-4x/daily - AFTER ORAL CARE PROVIDE SWALLOW STIMULATION TRIALS VIA METAL SPOON DIPPED IN ICE WATER - ~1 trial per minute to limit impact of swallow apnea on respiratory rate/oxygen saturation - No more than 5-6 swallows in a setting - Consider use of mouth moisturizer for patient comfort - Elevate HOB to 30 degrees at all times Education Provided to: Nursing Topics Addressed: definition and impacts of aspiration impact of current diagnoses on swallow function overt s/sx to monitor for re: potential aspiration of food / liquids relationship between respiratory function and deglutition rationale and instruction for additional risk management strategies as above SUBJECTIVE: Patient received: alert/awake, lethargic. Agreeable to evaluation. Pain Reported n/a Baseline Swallow Function: See HPI. Patient does not provide subjective. OBJECTIVE Patient positioning: As upright as possible using HOB/bed tilt controls Oral care: Nursing reporting recent oral care Respiratory status: 94% O2 on 1L O2, nursing switched to nasal cannula several minutes prior to POLICE COMMUNICATIONS DISPATCHER evaluation Orientation/Mental status: unable to obtain Speech: no at end of session Oral Mechanism Examination: Unable to elicit due to comprehension deficits/fatigue PO Intake: Trials Assessed: Ice chips Oral Phase Findings: Anterior leakage from mouth Difficulty with bolus manipulation Difficulty with a-p transport Residue - removed via suction Pharyngeal Phase Findings: Absent swallow initiation Absent hyolaryngeal elevation/excursion Cough after swallow - very weak, unable to clear Wet breathing sunds/vocalizations Esophageal Phase Findings: ??N/A ??? PLAN: Frequency: 2-3x/week for 1-2 weeks or while inpt. Goals: Jail Goals: Patient will maintain adequate nutrition/hydration with minimized aspiration risk. Short Term Goals: Patient will tolerate trials of ice chips without overt s/s aspiration across 2/2 visits. Patient will tolerate PO trials for consideration of diet upgrade without overt s/s aspiration across 2/2 visits. POLICE COMMUNICATIONS DISPATCHER CPT Code: 04665 Clinical Swallowing Evaluation
[2025-03-16] MEDS: fentaNYL 100 MCG PATCH TD (16:30)
[2025-03-16] MEDS: Enoxaparin 40 MG/0.4 ML SYR SC (16:31)
--- NOTE | 2025-03-16 17:15 | RT.EKG_ITS ---
APPROVED REPORT Exam: Resting ECG Reason for Exam: hypoxia Patient Location: I HR:93 bpm ECG Measurements Heart Rate 93 AXIS MA 129 P 62 QRSd 92 QRS -23 QT 365 T 111 QTc 454 Conclusion Sinus rhythm...normal P axis, V-rate 50- 99 Low voltage, extremity leads...all extremity leads <0.5mV Nonspecific repol abnormality, diffuse leads...ST dep, T flat/neg, ant/lat/inf
[2025-03-16 17:35] LABS: BE -2 mmol/L (-2-3); HCO3 22 mmol/L (22-26); pCO2 32 mmHg (35-45); pH 7.45 (7.35-7.45); sO2 74 % (95-98); tCO2 20 mmol/L (23-27)
[2025-03-16 17:38] LABS: FIO2L 15 L; Site Right Brachial; pO2 38 mmHg (80-105)
[2025-03-16] MEDS: POTASSIUM CHLORIDE/D5-0.45NACL 1,000 ML 100 MEQ IV (17:42)
[2025-03-16 18:07] LABS: BE -3 mmol/L (-2-3); HCO3 22 mmol/L (22-26); pCO2 32 mmHg (35-45); pH 7.44 (7.35-7.45); sO2 76 % (95-98); tCO2 20 mmol/L (23-27)
[2025-03-16 18:09] LABS: FIO2L 15 L; Site Left Brachial
[2025-03-16 18:10] LABS: pO2 39 mmHg (80-105)
[2025-03-16] MEDS: LORazepam 20 MG/10 ML VIAL IVP (18:57)
[2025-03-17] VITALS (60 sets, daily range): PULSE 66–116; RESP 12–40; TEMP 31–36.5; O2SAT 80–99
[2025-03-17] MEDS: MORPHine 4 MG/ML SYR IVP ×4 (00:34→06:59)
[2025-03-17] MEDS: LORazepam 1 MG TAB PO (00:35)
[2025-03-17] MEDS: ACETAMINOPHEN 1,000 MG/100 ML BAG 400 MG IVPB ×3 (00:42→16:42)
[2025-03-17] MEDS: POTASSIUM CHLORIDE/D5-0.45NACL 1,000 ML 100 MEQ IV (04:35)
[2025-03-17] MEDS: LORazepam 20 MG/10 ML VIAL IVP (05:27)
[2025-03-17] MEDS: Scopolamine 1 MG/3 DAYS PATCH TD (08:14)
[2025-03-17] MEDS: Pantoprazole 40 MG VIAL IVP (08:15)
[2025-03-17] MEDS: Normal Saline Flush 10 ML SYR IVP (08:16)
[2025-03-17] MEDS: methylPREDNISolone SUCC 40 MG VIAL IVP ×2 (08:16→20:34)
[2025-03-17] MEDS: HYDROmorphone 2 MG/ML SYR 1 MG IVP ×5 (08:40→22:41)
--- NOTE | 2025-03-17 08:54 | PDOC.CMPRO ---
Date of service: 03/17/25 Time of Service: 08:55 Care Management Progress Note Progress Note Text Progress Note Text: Ed was sleeping when CM attempted to visit with him today. He looked very comfortable. He did not respond to light touch, or the sound of his name, so CM did not push. Palliative Care was in to see Ed today, and reached out to his daughter. She was unavailable again. CM did not attempt a call this date. Discharge Potential Discharge Needs: Consult (podiatry consult recommended by wound care nurse) and PCP F/U Appt Patient/Family Education Needs: Review discharge instructions, discuss Ask Me Three Transportation: EMS Plan: Ed remains in the ICU. Anticipate he will return home once medically stable. He will transport via EMS, coordinated by CM. His son will continue to care for him at home, and his HH RN will resume. He will follow up with his PCP and discharge plan of care. CM will continue to follow. Social Determinants of Health Screening Will the Patient Participate in the Screening?: Unable to obtain
--- NOTE | 2025-03-17 10:24 | W.PALPGNOTE ---
Date of service: 03/17/25 Time of Service: 09:30 Assessment and Plan Assessment and plan (1) Severe malnutrition: Status: Acute Assessment and plan: - if LST to be pursued, outside of resp status, would need artificial nutrition to sustain life however at this time Ed is not a candidate for TPN as does not have appropriate IV access for TPN. - G tube consider invasive, to date Ed has not wanted a feeding tube, this should be honored at this time (2) Dysphagia: Status: Acute Assessment and plan: WHEELCHAIR RENTAL CLERK following NPO status d/t respiratory concerns no pharngeal swallow inititation; follow WHEELCHAIR RENTAL CLERK recommendations w/metal spoon for ongoing oral engagement as tolerated (3) Aspiration pneumonia: Status: Acute Assessment and plan: continue vancomycin previously on ceftriaxone/azithromycin x6 days (4) Acute respiratory failure with hypoxia and hypercapnia: Status: Acute Assessment and plan: worsening resp status now requiring HF NC, 60L at 65% initially, increased to 95% this afternoon O2 levels maintaining >95%, RT following and managing periods of tachypnea w/dyspnea noted, no witnessed apnea to date continue Dilaudid 1mg IV q1h PRN, recommended for RR >35 or if dyspnea/labored breathing observed (5) Chronic skin ulcer: Status: Acute Assessment and plan: x10 see wound care note potentially terminal ulcers, w/o enough protein they are likely never going to heal/only get worse (6) Hemiparesis affecting right side as late effect of cerebrovascular accident: Status: Acute Assessment and plan: total care assist (7) Chronic pain: Status: Chronic Assessment and plan: fentanyl 100mcg TD patch in place continue Dilaudid 1mg IV q1h PRn for pain - consider pump if requiring consistent doses in next 24 hours; has required at least 4 doses today (8) Dyspnea: Status: Acute Assessment and plan: controlled w/Dilaudid as above (9) Advanced care planning/counseling discussion: Status: Acute Assessment and plan: Attempt to contact daughter, no answer, unable to leave VM Son has not re-presented since this morning Ethics Consult at 1pm w/following recommendations - continue to support comfort, as we would do this for all patients, there is an ethical obligation to do this; - continue to attempt to engage both son/daughter in his care and decisions regarding his current status; follow safety plan of 2 HC professionals in the room for these conversations - follow his wishes that he stated when he had capacity: no feeding tube; not engaging/refusing as he wants to (10) Palliative care encounter: Assessment and plan: It appears that Ed may be actively dying: not waking, not engaging, for multiple days; new/worsening respiratory sxs (dyspnea, hypoxemia) w/previous documentation indicating no intubation, he is not a candidate for BiPAP d/t inability to remove. multisystem organ failure likely d/t: reduced urine output, recent low BP, resp status as above, decreased alertness as above; suspected life expectancy hours to days At this time comfort supported interventions should continue, including Dilaudid for RR >35 w/labored breathing or pain; consider pump as above He is likely not a candidate for TPN d/t no line access, not candidate for central/PICC given active MRSA infection. consult surgery PRN Per Ethics consult: will not pursue G tube at this time as it does not appear to align w/his previously stated preferences and certainly would be considered an invasive/permanent treatment, which does not align w/current COLST - at this time his nutritional needs/concerns would not be his cause of , his respiratory concerns are the most acute concern, regardless of his nutritional status Subjective Subjective Interval history since last seen: Mr. Frazier remains hospitalized in ICU 2/2 acute resp failure c/b severe sepsis 2/2 aspiration PNA - He is off pressors, remains in ICU 2/2 respiratory status; cultures positive for MRSA - Pain: continues fentanyl patch; IV morphine w/less response to groaning/grimacing, switched to IV hydromorphone this morning w/good response. - Resp: dyspnea present, w/RR into the 40's earlier, O2 sats maintaining >90's despite this, Dilaudid w/good effect; he has not received Dilaudid x3 today w/RR >35 each time w/good effect; no witnessed episodes of apnea. continues on HF NC 60L, down to 65% and up to 95% w/RT monitoring and titrating; current O2 >95%; he is not a candidate for BiPAP bc he does not have ability to remove this in current condition - Oral: continues to refuse oral care, pushing away, not engaging/sucking/initiating swallow; WHEELCHAIR RENTAL CLERK recommend no oral intake d/t inability to initiate pharyngeal swallow/abscense of swallow reflex, difficulty managing oral ice chips w/increased gurgle and decreased O2 a/w ice chips, worsening resp status - Urine/Bowel: continues to make urine however it is reduced to <30cc/hr, michel in place; no bowels, hypoactive/absent BS - Activity: not really waking up today, not engaging in any care for at least >24h, potentially 72h; - Wounds: see wound consult note, 10 wounds present Social: - Daughter: did present last night, had conversation w/hospitalist where it was reviewed it was unlikely he will get better, she agreed that COATER OPERATOR INSULATION BOARD was a good direction, but she wanted her brother to have a say, deferred transition then, told staff would return this morning, as of 14:30 she has not presented today, did not answer call, voicemail box full at call at 14:20 - Son: has continued visiting briefly every day, including this morning. he did ask some pointed questions this morning regarding his oral intake and pain management; - RN observed son say to patient I know you don't like the idea of a feeding tube, in regards to oral intake not enough, needing to heal wounds w/protein, etc Exam Narrative Exam Narrative: General: chronically ill and frail appearing male, lying in ICU bed w/HOB elevated; HEENT: normocephalic, atraumatic Resp: RR 37 on arrival, labored w/accessory muscle use, O2 sats WNL; Dilaudid 1mg IV administered at 0950; HF NC in place; on return RR 18, even and regular, w/accessory muscle use Objective Last Vital Signs Temp 97.7 F 03/17/25 08:30 Pulse 96 H 03/17/25 09:00 Resp 32 H 03/17/25 09:00 BP 136/94 H 03/16/25 22:56 Pulse Ox 98 03/17/25 09:00 Laboratory Results - last 24 hr 03/16/25 03/16/25 17:30 18:03 ABG Sample Site Right Brachial Left Brachial ABG pH 7.45 7.44 ABG pCO2 32 L 32 L ABG pO2 38 L* 39 L* ABG HCO3 22 22 ABG Total CO2 20 L 20 L ABG O2 Saturation 74 L 76 L ABG Base Excess -2 -3 L Oxygen Liter Flow 15 15
[2025-03-17] MEDS: Insulin Aspart 300 UNITS/3 ML PEN SC ×3 (12:07→23:04)
[2025-03-17] MEDS: VANCOMYCIN/WATER (PEG) 750 MG/150 ML BAG 150 MG IV (12:11)
[2025-03-17 12:30] LABS: Abs Immature Grans 1.26 10^3/uL (0.0-0.06); Absolute Lymphocyte Count 0.75 10^3/uL (1.2-3.4); Absolute Neutrophil Count 29.53 10^3/uL (1.2-6.7); Eosinophils % 0.2 %; HCT 31.3 % (40.0-50.0); HGB 9.9 g/dL (13.5-17.5); Immature Grans % 3.9 %; Lymphocytes % 2.3 %; MCH 29.5 pg (27.0-33.0); MCHC 31.6 % (32.0-36.0); MCV 93 fL (80-95); MPV 10.2 fL (8.0-11.0); Monocytes % 3.3 %; Neutrophils % 90.3 %; Nucleated RBC 0.3 % (0.0-0.3); Platelet Count 391 10^3/uL (130-400); RBC 3.36 10^6/uL (4.36-5.78); RDW-SD 54.8 fL
[2025-03-17 12:31] LABS: Absolute Eosinophil Count 0.07 10^3/uL (0.0-0.7); Absolute Monocyte Count 1.08 10^3/uL (0.1-0.8)
[2025-03-17 12:41] LABS: Diff Comment Agrees w/ Instrument; Poikilocytes 1+
[2025-03-17 12:54] LABS: Anion Gap 12.3 mmol/L (3-11); BUN 73 mg/dL (7-18); CO2 19.7 mmol/L (21.0-32.0); CREATININE 1.3 mg/dL (0.70-1.30); Calcium 7.9 mg/dL (8.5-10.1); Chloride 107 mmol/L (98-107); Estimated GFR 58.01 (mL/min/1.73m2); Glucose 356 mg/dL (74-106); Sodium 139 mmol/L (136-145)
--- NOTE | 2025-03-17 14:03 | W.NUTRFU ---
Date of service: 03/17/25 Time of Service: 14:04 Nutrition Note NOTE: Darwin has been downgraded to NPO status due to significant aspiration risk. This started yesterday at lunch, however meal trays were held for 2-3 meals prior to this due to same concern, resulting in pt's already low intake of energy/protein becoming more depressed. artificial feeding would be recommended at this time, however there seems to be multiple barriers including Ed's HCA (his daughter) has not been able to be contacted regarding decision making to TREATING ENGINEER HELPER status or alternative feeding (which COLST form signed by her last February indicates trial of short-term artificial nutrition but not intermediate accountant. Mr Federico's current medical picture indicates he would need intermediate accountant feeding due to increased aspiration risk and would most likely be the only route to ensure adequate energy and protein/nutrition delivered for addressing his malnutrition and wounds. Glucose levels out of target range. Fasting glucose of 356 this morning and 223 at breakfast, 273 at lunch. Pt ordered for corrections [id number] on senstive scale with novolog and 25u glargine. He continues to be on steroids which influence. Nutrition Dx - severe malnutrition r/t intermediate accountant chronic illness with recent deterioration and inability to meet nutrition needs orally d/t aspiration risk/dysphagia. Intervention: Recommend thorough swallow eval to determine what if any po textures can be considered. recommend continued talks with Ed and HCA to get better understanding of their wishes in regards to artificial nutrition vs TREATING ENGINEER HELPER status. Time Spent in Nutritional Counseling and Treatment: 0
--- NOTE | 2025-03-17 15:49 | PGE_ITS ---
Date of Service Date of service: 03/17/25 Time of Service: 15:49 Assessment and Plan Assessment and plan (1) Severe sepsis: Status: Acute Assessment and plan: A/w MRSA bacteremia. Met sepsis criteria on admission, due to respiratory source. Also wounds. S/p 6 days of ceftriaxone/azithro to treat pneumonia. Continue vancomycin, day 7, for MRSA bacteremia (2) Acute respiratory failure with hypoxia and hypercapnia: Status: Acute Assessment and plan: Resolved, on room air since 03/14 Suddenly worse 03/17 evening. MS not alert enough for BiPAP. He is DNR/DNI. Continue maximal support with HFNC. (3) Pneumonia: Assessment and plan: stopped ceftriaxone/azithro after 6 days IV therapy. With worse infiltrates, resume cefepime along with vanco. (4) Seizure: Status: Acute Assessment and plan: On Keppra 250mg IV q12 hours and Valproic acid 250mg IV q6 hours No seizure activity noted (5) Pressure injury: Status: Acute Assessment and plan: Note outpatient palliative visit last month with concern for possible terminal ulcer. Wound care consult appreciated. Debridement indicated, but without major improvement in nutrition and fastidious care there is no way these will heal. At this point I don't think it makes sense to put him through sugery. Defer the referral. (6) CVA, old, aphasia: Status: Acute Assessment and plan: With Aphasia, bed bound, total care. (7) Chronic pain: Status: Chronic Assessment and plan: PO Morphine at home and fentanyl patch Has IV morphine prn here. Changed to hydromorphone today as needing more, this is working as bolus (8) Diabetes: Assessment and plan: BG AC and HS with SSI On home dose Lantus (9) Edema of right upper extremity: Status: Acute Assessment and plan: POCUS showed no DVT- see exam Lymphedema +/ elevate right upper ext. (10) GERD (gastroesophageal reflux disease): Status: Chronic Assessment and plan: c/w PPI protonix 40mg iv daily (11) Depression: Status: Chronic Assessment and plan: Off home dose abilify since NPO (12) Palliative care patient: Assessment and plan: Ed has HCA form that names his daughter, Alejandra to be his HCA. No alternative HCA. Met with her 03/16 evening. He has a COLST form on file- he is a DNR/DNI. Appreciate palliative consult and Ethics consult today. Given what we know of Ed's goals of care and his current prognosis, I still recommend OUTSIDE SALES REPRESENTATIVE status, but waiting for Yulisa to officially approve Either way he has a very poor prognosis and will likely never recover form the MRSA bacteremia and non-healing wounds. (13) Dysphagia: Status: Acute Assessment and plan: Chronic high risk for aspiration, now NPO due to recurrent aspiration events. He previously declined feeding tube. (14) Malnutrition: Status: Acute Assessment and plan: Appreciate PANCAKE PROFESSIONAL and nutrition input on this case. He is currently unable to take po, see above. We would need better access to consider TPN, but cannot get central line with MRSA bacteremia, and I think that TPN would probably be futile. Subjective Subjective Interval history since last seen: Events: - Seen by PANCAKE PROFESSIONAL, confirmed NPO documentation - Became hypoxic 03/16 around 6pm. No new EKG changes. CXR showed worsening effusions/infiltrates -Met with daughter and healthcare agent Alejandra at 7pm 03/16. Discussed poor prognosis and his previously indicated wishes. We both agreed OUTSIDE SALES REPRESENTATIVE would be most appropriate at this point, but she wanted to talk with her brother first. -on high flow overnight/today He is not responsive to questions, does make eye contact at times when more alert Exam Narrative Exam Narrative: Opens eyes to verbal stimuli at times, other times no respons, moaning at times, responds to hydromorphone Respiration:On high flow, normal effort, coarse breath sounds bilat Cardiovascular RRR no MRG Abdomen is non-distended, soft and non-tender ext: warm, 1+ edema LE, puffy edema right arm. Skin with multiple pressure areas: see wounds note decreased muscle mass throughout, bitemporal wasting. Objective Last Vital Signs Temp 36.5 C 03/17/25 08:30 Pulse 83 03/17/25 14:00 Resp 18 03/17/25 14:00 BP 136/94 H 03/16/25 22:56 Pulse Ox 98 03/17/25 14:00 Laboratory Results - last 24 hr 03/16/25 03/16/25 03/17/25 17:30 18:03 11:50 WBC 32.70 H* RBC 3.36 L Hgb 9.9 L Hct 31.3 L MCV 93 MCH 29.5 MCHC 31.6 L RDW 16.0 H Plt Count 391 D MPV 10.2 Immature Gran % 3.9 Neutrophils % 90.3 Lymphocytes % 2.3 Monocytes % 3.3 Eosinophils % 0.2 Basophils % 0.0 Nucleated RBC % 0.3 Absolute Neutrophils 29.53 H Absolute Lymphocytes 0.75 L Absolute Monocytes 1.08 H Absolute Eosinophils 0.07 Absolute Basophils 0.00 RBC Morphology See Below Poikilocytosis 1+ ABG Sample Site Right Brachial Left Brachial ABG pH 7.45 7.44 ABG pCO2 32 L 32 L ABG pO2 38 L* 39 L* ABG HCO3 22 22 ABG Total CO2 20 L 20 L ABG O2 Saturation 74 L 76 L ABG Base Excess -2 -3 L Oxygen Liter Flow 15 15 Sodium 139 Potassium 5.0 D Chloride 107 Carbon Dioxide 19.7 L Anion Gap 12.3 H BUN 73 H Creatinine 1.3 Est GFR (CKD-EPI 2020) 58.01 Glucose 356 H Calcium 7.9 L Time Spent with Patient Time Spent with Patient: >50 minutes Time was spent: preparing to see the patient(eg.review tests), obtaining and/or reviewing separately otained hiistory, ordering medications,tests, procedures, referring, communicating with other health client care consultant, indepentently interpreting results, counseling the patient and care coordination
[2025-03-17] MEDS: DEXTROSE 5%-LACTATED RINGERS 1,000 ML 75 ML IV (16:28)
[2025-03-17] MEDS: Enoxaparin 40 MG/0.4 ML SYR SC (16:42)
[2025-03-17] MEDS: CEFEPIME 2 GM in Normal Saline 100 ML IVPB (18:01)
[2025-03-18] VITALS (40 sets, daily range): BP systolic 114–148; BP diastolic 43–72; PULSE 54–101; RESP 9–27; TEMP 31–36.2; O2SAT 87–98
[2025-03-18] MEDS: ACETAMINOPHEN 1,000 MG/100 ML BAG 400 MG IVPB ×3 (00:12→17:31)
[2025-03-18] MEDS: HYDROmorphone 2 MG/ML SYR 1 MG IVP ×8 (02:53→20:50)
[2025-03-18] MEDS: Insulin Aspart 300 UNITS/3 ML PEN SC ×3 (05:17→16:38)
[2025-03-18] MEDS: DEXTROSE 5%-LACTATED RINGERS 1,000 ML 75 ML IV (06:23)
[2025-03-18] MEDS: CEFEPIME 2 GM in Normal Saline 100 ML IVPB ×2 (06:24→17:56)
[2025-03-18 06:35] LABS: BE (Venous) -7 mmol/L (-2-3); HCO3 (Venous) 21 mmol/L (23-28); O2 Sat (Venous) 82 %; TCO2 (Venous) 21 mmol/L (24-29); pCO2 (Venous) 51 mmHg (41-51); pH (Venous) 7.22 (7.31-7.41); pO2 (Venous) 50 mmHg
[2025-03-18 06:36] LABS: Lactate 3.1 mmol/L (<or=2.0)
[2025-03-18 06:38] LABS: HCT 29.2 % (40.0-50.0); HGB 8.9 g/dL (13.5-17.5); MCH 29.1 pg (27.0-33.0); MCHC 30.5 % (32.0-36.0); MCV 95 fL (80-95); MPV 10.2 fL (8.0-11.0); Platelet Count 172 10^3/uL (130-400); RBC 3.06 10^6/uL (4.36-5.78); RDW 15.9 % (11.8-14.1); RDW-SD 56.5 fL; WBC 22.14 10^3/uL (4.4-10.8)
[2025-03-18 06:50] LABS: Absolute Neutrophil Count 21.25 10^3/uL (1.2-6.7); Bands % 2 %
[2025-03-18 06:51] LABS: Absolute Lymphocyte Count 0.66 10^3/uL (1.2-3.4); Absolute Monocyte Count 0.22 10^3/uL (0.1-0.8); Diff Comment Manual Differential; RBC Morphology Normal
[2025-03-18 06:54] LABS: ALT 16 U/L (16-63); AST 22 U/L (15-37); Albumin 1.2 g/dL (3.4-5.0); Alkaline Phosphatase 81 U/L (46-116); Anion Gap 8.3 mmol/L (3-11); BUN 75 mg/dL (7-18); Bilirubin, Total 0.2 mg/dL (0.2-1.0); CO2 22.7 mmol/L (21.0-32.0); CREATININE 1.4 mg/dL (0.70-1.30); Calcium 7.7 mg/dL (8.5-10.1); Chloride 109 mmol/L (98-107); Estimated GFR 53.07 (mL/min/1.73m2); Glucose 314 mg/dL (74-106); Potassium 4.3 mmol/L (3.5-5.1); Sodium 140 mmol/L (136-145); Total Protein 5.2 g/dL (6.4-8.2)
--- NOTE | 2025-03-18 08:35 | PDOC.CMPRO ---
Date of service: 03/18/25 Time of Service: 08:35 Care Management Progress Note Progress Note Text Progress Note Text: Ed was on 4L of O2 for a short while today, but per RN he had a desat and was placed back on Hi-flow nc. When CM met with Ed, he appeared uncomfortable. He was moaning and continually lifting his head. He did not respond when asked if he was uncomfortable, or when asked if he was in pain. CM called Alejandra today and was able to leave a VM. CM strongly encouraged Alejandra to visit the hospital, or at least call and speak with the provider. Discharge Potential Discharge Needs: Consult (podiatry consult recommended by wound care nurse) and PCP F/U Appt Anticipated Barriers to Discharge: Medical Status Patient/Family Education Needs: Review discharge instructions, discuss Ask Me Three Transportation: EMS Plan: Ed remains in the ICU. His condition is grave. If Ed improves to the point that he can return home, he will transport via EMS, coordinated by CM. His son will continue to care for him at home, and his HH RN will resume. He will follow up with his PCP and discharge plan of care. CM will continue to follow. Social Determinants of Health Screening Will the Patient Participate in the Screening?: Unable to obtain
[2025-03-18] MEDS: Pantoprazole 40 MG VIAL IVP (09:42)
[2025-03-18] MEDS: methylPREDNISolone SUCC 40 MG VIAL IVP ×2 (09:43→21:14)
[2025-03-18] MEDS: Normal Saline Flush 10 ML SYR IVP ×3 (09:48→21:15)
[2025-03-18 11:16] LABS: Vancomycin, Random 24.8 ug/mL
--- NOTE | 2025-03-18 12:35 | STREC_ITS ---
Date of service: 03/18/25 Time of Service: 12:35 Speech Therapy Recommend[address] Report ST Recommendations: IT ARCHITECTURE CONSULTANT spoke with primary RN. Patient not deemed appropriate for PO trials/swallow re-assessment at this time. He remains on HFNC 60L 80% FiO2, largely non resp onsive. RN reports attempt to wean down oxygen earlier this morning though patient desaturated to 70% and became cyanotic. Nursing aware of recommendations to trial metal spoon dipped in ice water for comfort/naturalistic swallow stimulation, though they have not been able to offer this in light of patient status. IT ARCHITECTURE CONSULTANT to continue to follow patient and monitor needs.
--- NOTE | 2025-03-18 14:03 | W.PM.PROGNOT ---
Date of Service Date of service: 03/18/25 Time of Service: 14:03 Assessment and Plan Assessment and plan (1) Severe sepsis: Status: Acute Assessment and plan: A/w MRSA bacteremia. Met sepsis criteria on admission, due to respiratory source. Also wounds. S/p 6 days of ceftriaxone/azithro to treat pneumonia at admission. Continue vancomycin, day 8, for MRSA bacteremia Resumed cefepime for hospital acquired pneumonia 03/17. WBC and lactate up. (2) Acute respiratory failure with hypoxia and hypercapnia: Status: Acute Assessment and plan: Resolved, on room air since 03/14 Suddenly worse 03/17 evening. MS not alert enough for BiPAP. He is DNR/DNI. Off/on HFNC, maintain sats 88-91. VBG 03/18 showing hypoxia w/o hypercapnea, but metabolic acidosis developing. (3) Pneumonia: Assessment and plan: stopped ceftriaxone/azithro after 6 days IV therapy. With worse infiltrates, resumed cefepime along with vanco 03/17. (4) Seizure: Status: Acute Assessment and plan: On Keppra 250mg IV q12 hours and Valproic acid 250mg IV q6 hours No seizure activity noted (5) Pressure injury: Status: Acute Assessment and plan: Note outpatient palliative visit last month with concern for possible terminal ulcer. Wound care consult appreciated. Debridement indicated, but without major improvement in nutrition and fastidious care there is no way these will heal. At this point I don't think it makes sense to put him through sugery. Defer the referral. (6) CVA, old, aphasia: Status: Acute Assessment and plan: With Aphasia, bed bound, total care. (7) Chronic pain: Status: Chronic Assessment and plan: PO Morphine at home and fentanyl patch No longer taking PO. Changed to hydromorphone from morphine 03/17 today as needing more, this is working as bolus (8) Diabetes: Assessment and plan: BG q6h with SSI On home dose Lantus (9) Edema of right upper extremity: Status: Acute Assessment and plan: POCUS showed no DVT- see exam Lymphedema +/ elevate right upper ext. (10) GERD (gastroesophageal reflux disease): Status: Chronic Assessment and plan: c/w PPI protonix 40mg iv daily (11) Palliative care patient: Assessment and plan: Ed has HCA form that names his daughter, Alejandra to be his HCA. No alternative HCA. Met with her 03/16 evening. He has a COLST form on file- he is a DNR/DNI. Appreciate palliative consult and Ethics consult 03/17. Given what we know of Ed's goals of care and his current prognosis, I still recommend DEVELOPMENT SCIENTIST status. Yulisa agreed but waiting for Yulisa to officially approve Either way he has a very poor prognosis and will likely never recover form the MRSA bacteremia and non-healing wounds. (12) Dysphagia: Status: Acute Assessment and plan: Chronic high risk for aspiration, now NPO due to recurrent aspiration events. He previously declined feeding tube. (13) Malnutrition: Status: Acute Assessment and plan: Appreciate CASH REGISTER SERVICER and nutrition input on this case. He is currently unable to take po, see above. We would need better access to consider TPN, but cannot get central line with MRSA bacteremia, and I think that TPN would be futile. Subjective Subjective Patient reports: denies diarrhea, vomiting or fever Interval history since last seen: 24 hr: Cefepime added to vancomycin to cover pulmonary infiltrates Ethics committee meeting held Came off high flow, but back on late morning with drop in O2 sat patient not responsive Exam Narrative Exam Narrative: Opens eyes to verbal stimuli at times, intermittent eye contract, color pale/sallow Respiration: Mild tachypnea, rattling sounds audible, coarse breath sounds bilat to ascultation Cardiovascular RRR no MRG. cap refil delayed in extremities Abdomen is non-distended, soft and non-tender ext: feet warm, 1-2+ edema LE, puffy edema right arm. hands cool Skin with multiple pressure areas: see wounds note decreased muscle mass throughout, bitemporal wasting. Objective Last Vital Signs Temp 36 C L 03/18/25 13:25 Pulse 61 03/18/25 12:00 Resp 11 L 03/18/25 12:00 BP 138/52 L 03/18/25 07:05 Pulse Ox 93 03/18/25 12:00 Laboratory Results - last 24 hr 03/18/25 03/18/25 03/18/25 06:23 06:23 10:10 WBC 22.14 H RBC 3.06 L Hgb 8.9 L Hct 29.2 L MCV 95 MCH 29.1 MCHC 30.5 L RDW 15.9 H Plt Count 172 D MPV 10.2 Immature Gran % 0.0 Neutrophils % 94.0 Band Neutrophils % 2 Lymphocytes % 3.0 Monocytes % 1.0 Eosinophils % 0.0 Basophils % 0.0 Nucleated RBC % 0.0 Absolute Neutrophils 21.25 H Absolute Lymphocytes 0.66 L Absolute Monocytes 0.22 Absolute Eosinophils 0.00 Absolute Basophils 0.00 RBC Morphology Normal VBG pH 7.22 L VBG pCO2 51 VBG pO2 50 VBG HCO3 21 L VBG Total CO2 21 L VBG O2 Saturation 82 VBG Base Excess -7 L VBG Lactate 3.1 H* Cancelled Sodium 140 Potassium 4.3 Chloride 109 H Carbon Dioxide 22.7 Anion Gap 8.3 BUN 75 H Creatinine 1.4 H Est GFR (CKD-EPI 2020) 53.07 Glucose 314 H Calcium 7.7 L Total Bilirubin 0.2 AST 22 ALT 16 Alkaline Phosphatase 81 Total Protein 5.2 L Albumin 1.2 L Random Vancomycin 24.8 Time Spent with Patient Time Spent with Patient: >50 minutes Time was spent: preparing to see the patient(eg.review tests), obtaining and/or reviewing separately otained hiistory, ordering medications,tests, procedures, referring, communicating with other health healthcare risk control consultant, indepentently interpreting results, counseling the patient and care coordination
[2025-03-18] MEDS: Enoxaparin 40 MG/0.4 ML SYR SC (16:27)
--- NOTE | 2025-03-18 22:32 | NUR.NOTE ---
Pt's daughter DPOA in to speak with MD. She and Dr. Boswell report they are changing the pts order to comfort care. Daughter turns to this RN and asks, Didn't you call my brother yesterday, would you please call him and let him know? I'm going to text him but he may not answer my text. RN agrees to call. This RN and Yola Short RN attempted to call but got voicemail. Message left for pt's son to please call the hospital for an update Nursing Note:
--- NOTE | 2025-03-18 23:22 | W.EVENT ---
Date of service: 03/18/25 Time of Service: 23:22 Event Note: This is a 75-year-old male patient with recurrent admissions for infection of sepsis who has an breakdown status post CVA, type 2 diabetes mellitus and poor nutrition refusing feeding tube being a DNR/DNI. He has had a prolonged hospital stay with improvement of treatment for sepsis initially and now recurring sepsis with patient seen by palliative care who stated he is actively dying. His son has difficulty dealing with his father's lack of improvement despite aggressive medical therapy. He was on pressor agents but now his cough. His daughter did come in to discuss his CODE STATUS changed to CLINICAL ACCOUNT EXECUTIVE but was uncomfortable doing this without her brother being involved but her brother was not reachable. I did review last progress note and the patient care note with the daughter, Alejandra Caballero with her present. She did review and sign a COLST now with the patient as CLINICAL ACCOUNT EXECUTIVE and I did adjust his medical therapy for comfort care alone. This would include stopping IV hydration after a long discussion with the daughter and her about prolonging the process with forced hydration would make the patient more uncomfortable whereas allowing the natural shutdown process should make the patient more comfortable. He is on IV Dilaudid and does have a fentanyl patch. Will continue his IV antilipid treatment temporarily and all of the treatment will be IV or sublingual. Patient's exam was unchanged from his last physical exam which was reviewed. Assessment/plan: End-of-life discussion with daughter now with patient CLINICAL ACCOUNT EXECUTIVE not responding to aggressive medical therapy for his sepsis with recurrent symptoms and abnormal labs. The day hospitalist will need to reviewed his with the son who is having difficulty dealing with his father's . The daughter is the medical decision-maker and has signed the COLST. She will need support from the medical staff with her having some concerns about how her brother will be reacting to this change in status. Time Spent with Patient Time spent in critical care(minutes): 60 Time Spent Included: Coordination of care, Chart review, Documenting critically ill care, Time at immediate bedside and Discussing Hx and/or treatment with family (Drafting and reviewing the updated COLST form with the daughter who is the medical decision making family.)
--- NOTE | 2025-03-19 01:19 | W.PC.ACHO ---
Registration Status: Primary Language: Preferred Language: ED Information & Data Chief Complaint RespSymp 03/10/25 14:27 Triage Note HH called ems for sob, o2 60 03/10/25 09:54 % RA, EMS CPAP 91%. PT NON VERBAL AT BASELINE. HX COPD. Medical / Surgical History (Last Reviewed 03/12/25 @ 15:12 by Roxann Gunn NP) Pneumonia Opiate dependence, continuous Urinary retention Pneumonia Acute cerebrovascular accident (CVA) Fever Hospital discharge follow-up Unwitnessed fall Septic shock Pneumonia, aspiration Hypotension Bilateral pneumonia Acute hypoxic respiratory failure Failure to thrive in adult UTI (urinary tract infection) CO2 narcosis Medical neglect of elder by caregiver Encounter for assessment of healthcare decision-making capacity Plantar ulcer of left foot Palliative care patient Osteomyelitis due to type 2 diabetes mellitus Cellulitis Foot infection Osteomyelitis of toe of right foot MRSA bacteremia Osteomyelitis of second toe of left foot 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 Coughing Pain and swelling of left forearm Nausea Decrease in appetite Rales 1/4 way up posterior chest wall on left side BPH with urinary obstruction Discharge planning issues Encounter for long-term methadone use for opiate dependence Palliative care encounter Bladder stones Acute kidney injury Cellulitis of foot, right Diabetic infection of right foot Osteomyelitis of second toe of right foot History of back pain Hepatitis C Disorder of tendon of right hand Hyperglycemia Anxiety Toe osteomyelitis, right (Last Reviewed 03/12/25 @ 15:12 by Roxann Gunn NP) History of liver biopsy (~01/2001) History of appendectomy History of inguinal hernia repair History of amputation of great toe Status post amputation of toe Most Recent Vital Signs Temperature 36.2 C L 03/18/25 20:18 Temperature Source Temporal Artery Scan 03/18/25 20:18 Pulse 73 03/18/25 20:18 Pulse 63 03/18/25 18:00 Respiratory Rate 9 L 03/18/25 20:18 Respiratory Effort Short of Breath, Labored, Incrsd Work of Breathing 03/10/25 11:04 Respiratory Depth Shallow 03/10/25 11:04 Blood Pressure 122/51 L 03/18/25 20:18 Blood Pressure Mean 62 03/18/25 15:24 Pulse Oximetry 97 03/18/25 20:18 Oxygen Delivery Method High Flow System 03/18/25 20:18 Oxygen Flow Rate 45 03/18/25 20:18 Fraction of Inspired Oxygen (FIO2) 47 03/18/25 20:18 Pain Level 0 03/16/25 23:26 Comment Difficult to assess pain as patient is aphasic. However this nurse noted furrowing of eyebrows and forehead and moaning at this time. 03/15/25 11:39 Comment bipap 03/10/25 14:02 Arterial Systolic 181 03/15/25 07:00 Arterial Diastolic 63 03/15/25 07:00 Arterial Mean 300 03/15/25 07:49 Allergies Penicillins Allergy (Unknown, Verified 03/10/25 09:57) Unknown codeine Adverse Reaction (Verified 03/10/25 09:57) itching and bloutchy pentazocine lactate (From [email or web address]) Adverse Reaction (Verified 03/10/25 09:57) makes me deathly ill Active Medications Generic Name Dose Route Start Last Admin Trade Name Freq PRN Reason Stop Dose Admin Fentanyl 100 mcg 03/10/25 16:00 03/16/25 16:30 Fentanyl 100 Mcg Patch TD 100 mcg Q72H JODI Administration Hydromorphone HCl 1 mg 03/17/25 08:01 03/18/25 20:50 Hydromorphone 2 Mg/Ml Syr IVP 1 mg Q1H PRN PRN Administration Levetiracetam 250 mg/ Sodium 102.5 mls @ 410 mls/hr 03/12/25 10:00 03/18/25 23:00 Chloride IVPB Infused Q12H JODI Infusion Acetaminophen 1,000 mg in 100 mls @ 400 mls/hr 03/14/25 16:00 03/18/25 20:54 Ofirmev IVPB Infused Q8H JODI Infusion Valproate Sodium 250 mg/ 52.5 mls @ 52.5 mls/hr 03/15/25 18:00 03/18/25 20:54 Sodium Chloride IVPB Infused Q6H JODI Infusion Pantoprazole Sodium 40 mg 03/11/25 07:30 03/18/25 09:42 Pantoprazole 40 Mg Vial IVP 40 mg DAILY@0730 JODI Administration Scopolamine HBr 1 mg 03/17/25 09:00 03/17/25 08:14 Scopolamine 1 Mg/3 Days Patch TD 1 mg Q72H JODI Administration Sodium Chloride 0 ml 03/10/25 10:18 03/18/25 17:55 Normal Saline Flush 10 Ml Syr IVP 20 ml PRN PRN Administration Sodium Chloride 0 ml 03/10/25 20:00 03/18/25 21:15 Normal Saline Flush 10 Ml Syr IVP 10 ml BID JODI Administration IV IV Catheter Type [Left Upper Peripheral IV Midline] IV Catheter Type [Right Upper Saline Lock arm] IV Catheter Type [Right Peripheral IV Antecubital] IV Catheter Type [Right Hand] Saline Lock IV Catheter Type [Left Upper Mid-line Peripheral Line arm] IV Catheter Gauge [Right Upper 18 arm] IV Catheter Gauge [Right 18 Antecubital] IV Catheter Gauge [Right Hand] 22 IV Catheter Gauge [Left Upper 18 arm] Diagnostics 03/18/25 03/18/25 03/18/25 Range/Units 10:10 06:23 06:23 WBC 22.14 H (4.4-10.8) 10^3/uL RBC 3.06 L (4.36-5.78) 10^6/uL Hgb 8.9 L (13.5-17.5) g/dL Hct 29.2 L (40.0-50.0) % MCV 95 (80-95) fL MCH 29.1 (27.0-33.0) pg MCHC 30.5 L (32.0-36.0) % RDW 15.9 H (11.8-14.1) % Plt Count 172 D (130-400) 10^3/uL MPV 10.2 (8.0-11.0) fL Immature Gran % 0.0 % Neutrophils % 94.0 % Band Neutrophils % 2 % Lymphocytes % 3.0 % Monocytes % 1.0 % Eosinophils % 0.0 % Basophils % 0.0 % Nucleated RBC % 0.0 (0.0-0.3) % Absolute Neutrophils 21.25 H (1.2-6.7) 10^3/uL Absolute Lymphocytes 0.66 L (1.2-3.4) 10^3/uL Absolute Monocytes 0.22 (0.1-0.8) 10^3/uL Absolute Eosinophils 0.00 (0.0-0.7) 10^3/uL Absolute Basophils 0.00 (0.0-0.2) 10^3/uL RBC Morphology Normal VBG pH 7.22 L (7.31-7.41) VBG pCO2 51 (41-51) mmHg VBG pO2 50 mmHg VBG HCO3 21 L (23-28) mmol/L VBG Total CO2 21 L (24-29) mmol/L VBG O2 Saturation 82 % VBG Base Excess -7 L (-2-3) mmol/L VBG Lactate Cancelled 3.1 H* (<or=2.0) mmol/L Sodium 140 (136-145) mmol/L Potassium 4.3 (3.5-5.1) mmol/L Chloride 109 H (98-107) mmol/L Carbon Dioxide 22.7 (21.0-32.0) mmol/L Anion Gap 8.3 (3-11) mmol/L BUN 75 H (7-18) mg/dL Creatinine 1.4 H (0.70-1.30) mg/dL Est GFR (CKD-EPI 2020) 53.07 (mL/min/1.73m2) Glucose 314 H (74-106) mg/dL Calcium 7.7 L (8.5-10.1) mg/dL Total Bilirubin 0.2 (0.2-1.0) mg/dL AST 22 (15-37) U/L ALT 16 (16-63) U/L Alkaline Phosphatase 81 (46-116) U/L Total Protein 5.2 L (6.4-8.2) g/dL Albumin 1.2 L (3.4-5.0) g/dL Random Vancomycin 24.8 ug/mL 03/14/25 08:50 Blood Culture - Preliminary Blood NO GROWTH 96 HOURS 03/14/25 08:40 Blood Culture - Preliminary Blood NO GROWTH 96 HOURS [id number] Documentation Fingerstick Glucose Start: 03/10/25 16:05 Freq: .Q6H Status: Complete Protocol: Activity Type Activity Date Activity User E-sign Co-sign Detail Recorded Client Recorded Date Recorded By Document 03/18/25 16:31 BKG DAEMON(9) [id number] 03/18/25 16:33 BKG DAEMON(10) Intake and Output - 24 Hour Total 03/10/25 09:46 thru 03/18/25 23:00 Intake Total 97695.366 Output Total 5075 Balance 22263.366 Weight 75.7 kg [place]: [place] [address]76.366 Oral 1020 Output: Urine 5075 Other: Urine Color Yellow Urine Appearance Sediment Comment strong odor Urinary Catheter Urinary Catheter Date of 03/11/25 Insertion [Urethral (Michel)] Time of insertion [Urethral ( 10:15 Michel)] Falls Risk Assessment History of Falls Previous History 03/10/25 11:04 Contributing Factors Confusion 03/10/25 11:04 Ambulatory Aids Uses ambulatory device + 03/10/25 11:04 Tubes/Lines With any additional score 03/10/25 11:04 Gait Evaluation W/any additional score 03/10/25 11:04 Cognition Cognitive impairment 03/10/25 11:04 Fall Total Score 103 03/10/25 11:04 Level of Risk Maximum Risk 03/10/25 11:04 Problems (Last Reviewed 03/12/25 @ 15:12 by Roxann Gunn NP) Dyspnea (Acute) Severe malnutrition (Acute) Malnutrition (Acute) Dysphagia (Acute) Anisocoria (Acute) Depression (Chronic) GERD (gastroesophageal reflux disease) (Chronic) Edema of right upper extremity (Acute) Aspiration pneumonia (Acute) On deep vein thrombosis (DVT) prophylaxis (Acute) CVA, old, aphasia (Acute) Seizure (Acute) Acute respiratory failure with hypoxia and hypercapnia (Acute) Severe sepsis (Acute) Pressure injury (Acute) Chronic skin ulcer (Acute) Aphasia (Acute) Anemia (Chronic) Advanced care planning/counseling discussion (Acute) Hypoxia (Acute) Hemiparesis affecting right side as late effect of cerebrovascular accident (Acute) Hypertension (Chronic) Hypothyroidism (Chronic) Chronic pain (Chronic) Notes 03/18/25 22:32 Nursing Notes by Emilia Arora Pt's daughter DPOA in to speak with MD. She and Dr. Boswell report they are changing the pts order to comfort care. Daughter turns to this RN and asks, Didn't you call my brother yesterday, would you please call him and let him know? I'm going to text him but he may not answer my text. RN agrees to call. This RN and Yola Short RN attempted to call but got voicemail. Message left for pt's son to please call the hospital for an update Nursing Note: Initialized on 03/18/25 22:32 - END OF NOTE 03/15/25 09:37 Nursing Notes by Jazmyne Ramirez Nursing Note: Ladan from speech therapy touched base with this nurse and whe will be back to assess patient shortly. A CIB Vanilla milkshake was ordered for patient. Initialized on 03/15/25 09:37 - END OF NOTE 03/14/25 12:00 (created 03/17/25 16:14) Nursing Notes by Gaby Craft Nursing Note: Pt's son visited. Pt making good eye contact and nodding yes/no to questions. Pt's son expresses concerns, including that pt's wounds will not heal if he has no nutritional intake. Pt's son says he knows that his dad still has things he wants to do in life, like put his feet in the sand on the beach in [place] near where he grew up. He told his dad that he ought to give a feeding tube some more thought. He stated that he knew his father didn't like the idea of a feeding tube, but that he can't heal if he doesn't eat, and he can't get in the van and go on a long drive to [place] if his wounds don't heal. Initialized on 03/17/25 16:14 - END OF NOTE 03/12/25 07:23 Respiratory by Ruby Quijano This is documentation for 03/11/2025 at aprox 645pm. I was called by Jazmyne last night to evaluate this pt. The pt was pulling off bipap . I removed bipap to give pt a break and noticed breakdown on pt nose. I then placed pt on 8L OXYMASK, which i had to increase to 10 to try to maintain sat of 88%. I went out and spoke to nurse regarding breakdown on bridge of nose and pt not wanting to wear bipap. I expressed i was going to get a high flow hooked up for pt. She and i listened to pt lungs and jazmyne stated she heard coarse crackles- i heard the same. She said she had recently given pt a shake. I told her there were concerns for aspiration of the shake the pt had coarse crackles and a gurgling noise in throat area- i tried to sx with no luck. She stated she had notified the provided an hour earlier of her concerns. I then when to providers office to ask for chest xray and evaul on pt due to concerns of aspiration. Yamileth STREET DEPARTMENT DISPATCHER open door , I asked her to help with 219 and she stopped me and stated she was not doing any more to call train station agent provider and she shut the door. I then reported that interaction to Jazmyne and ned RT LEAD. I then came down to get high flow and page train station agent provider. Yan learning technologist RT was in, I notified him of all of this and he took over with pt. Initialized on 03/12/25 07:23 - END OF NOTE 03/11/25 11:46 Nursing Notes by Jazmyne Ramirez Nursing Note: 1145 aroldo gonzalez applied. Initialized on 03/11/25 11:46 - END OF NOTE v v v v v v v v v Sending and/or Receiving Nurses: Please use comment section below to note any information pertinent to the patient hand-off not included above. Information / Comments: Report taken from MORTGAGE FUNDER Dwayne, patient is fully awake , w/ garbled speech, unable to talk. transferred to room 218 M/S, michel draining clear yellow urine. Midline on left upper arm in placed. O2,2 L/NC placed. Watching sports on TV. Call lights within reach. Report received from:
[2025-03-19] MEDS: ACETAMINOPHEN 1,000 MG/100 ML BAG 400 MG IVPB ×3 (01:36→23:57)
[2025-03-19] MEDS: Normal Saline Flush 10 ML SYR IVP ×3 (01:37→08:55)
[2025-03-19 02:09] VITALS: O2SAT 83
[2025-03-19] MEDS: HYDROmorphone 2 MG/ML SYR 1 MG IVP ×4 (05:36→10:27)
[2025-03-19] MEDS: Pantoprazole 40 MG VIAL IVP (07:25)
--- NOTE | 2025-03-19 08:36 | CMPROGNOTE_ITS ---
Date of service: 03/19/25 Time of Service: 08:36 Care Management Progress Note Progress Note Text Progress Note Text: Alejandra was in last night to visit Ed, and had a discussion with the night hospitalist. Per the note, she has decided to make Ed HEAD COACH. Son, Adelaide, was in this morning. CM met with him and let him know that Dr. Childers would be in to speak to him in a few minutes. Why, will anything change if I speak to him? CM responded that Alejandra was in last night and some decisions were made. CM encouraged Adelaide to stay to speak with Dr. Childers, but he said he was leaving. Adelaide did not say goodbye to his dad, nor did he allow his 3 children to say goodbye. CM did see that Dr. Childers met with Adelaide in the hallway and was speaking with him. Ed was very alert this morning. His eyes were open and he responded to voice and touch. When Adelaide left abruptly, CM stated to Ed, I didn't mean to make them leave, I'm sorry. Ed replied with the wink of an eye. Discharge Potential Discharge Needs: PCP F/U Appt Anticipated Barriers to Discharge: Medical Status Patient/Family Education Needs: Review discharge instructions, discuss Ask Me Three Transportation: EMS Plan: Ed has been transferred out to the med surg floor. It is anticipated that he will be made HEAD COACH today. CM will continue to follow. Social Determinants of Health Screening Will the Patient Participate in the Screening?: Unable to obtain
[2025-03-19] MEDS: HYDROmorphone 100 MG in Normal Saline 240 ML IV_INF (11:18)
--- NOTE | 2025-03-19 12:00 | NUR.NOTE ---
Multipule attempts to reach daughter, Nelia, to give her an update about pt's care. No answer on her phone or provided SO's phone number. VM left with name and call back number. Nursing Note:
--- NOTE | 2025-03-19 14:59 | PGE_ITS ---
Date of Service Date of service: 03/19/25 Time of Service: 14:59 Assessment and Plan Assessment and plan (1) Comfort measures only status: Status: Acute Assessment and plan: Ed has HCA form that names his daughter, Alejandra to be his HCA. No alternative HCA. Met with her 03/16 evening and again 03/19, now transitioned to FUR STORAGE CLERK. He has a COLST form on file- he is a DNR/DNI. Appreciate palliative consult and Ethics consult 03/17. Unfortunately Ed's son expresses understanding of his father's wishes that do not concur with observations from his healthcare team and the understanding of his sister, such as Ed's desire for a feeding tube, and he expressed his frustration today. He did not wish to stay for a discussion with the medical team or with his sister. There is a documented history of a pattern of conflict and poor communication in the family. Ultimately given my understanding of Ed's wishes and his poor prognosis and his daughter's decision, I am comfortable with comfort oriented care. (2) Severe sepsis: Status: Acute Assessment and plan: A/w MRSA bacteremia. Recieved 9 days of vancomycin therapy, now discontinued. (3) Acute respiratory failure with hypoxia and hypercapnia: Status: Acute Assessment and plan: supplemental oxygen for comfort. (4) Pneumonia: Assessment and plan: stopped ceftriaxone/azithro after 6 days IV therapy. With worse infiltrates, resumed cefepime along with vanco 03/17 All antibiotics stopped 03/19 (5) Seizure: Status: Acute Assessment and plan: On Keppra 250mg IV q12 hours and Valproic acid 250mg IV q6 hours No seizure activity noted Continues these while he is alert to prevent seizures (6) Chronic pain: Status: Chronic Assessment and plan: PO Morphine at home and fentanyl patch No longer taking PO. Changed to hydromorphone from morphine 03/17 today as needing more, this is working as bolus Getting boluses hourly, start hydromorphone drip per FUR STORAGE CLERK orders. Subjective Subjective Patient reports: denies diarrhea, vomiting or fever Interval history since last seen: Events: Transitioned to FUR STORAGE CLERK and transferred to med/surg after Dr. Boswell had discussion with DPOA daughter Alejandra Ed responds no when asked if he is in pain. When asked if he would like to go home, he closes his eyes and does not respond. Not focal. Exam Narrative Exam Narrative: Opens eyes to verbal stimuli, makes eye contract, appears comfortable Respiration: Mild tachypnea, not rattling, coarse breath sounds bilat to ascultation Cardiovascular RRR no MRG. cap refil delayed in extremities ext: feet warm, 1-2+ edema LE, puffy edema right arm. hands cool decreased muscle mass throughout, bitemporal wasting. Objective Last Vital Signs Temp 36.2 C L 03/18/25 20:18 Pulse 73 03/18/25 20:18 Resp 9 L 03/18/25 20:18 BP 122/51 L 03/18/25 20:18 Pulse Ox 83 L 03/19/25 02:09 Time Spent with Patient Time Spent with Patient: >50 minutes Time was spent: obtaining and/or reviewing separately otained hiistory, referring, communicating with other health residential child care counselor, care coordination and other (discussion with son)
[2025-03-19] MEDS: fentaNYL 100 MCG PATCH TD (15:49)
--- NOTE | 2025-03-19 15:50 | CHAPLAIN ---
Ed seems more alert and awake today than he has been. He's been moved from the ICU to Room 218 following a conversation between his daughter, who is his HCA, and the night hospitalist when a decision was made to have Ed be placed on comfort measures. Ed's son, Susie, who has been is caregiver, but is not a HCA for Ed, has disagreed with the idea of Ed being on comfort measures and spoke briefly with the hospitalist, Dr. Childers, this morning, and then left. Ed seems to respond to yes and no questions and is attempting to speak but it is difficult to understand what he is saying. I asked if he would want volunteers to come in and sit with him and he seemed to indicate no. He did appear to keep a close eye on who comes into the room. There is music playing for him and a sports channel on the television.
[2025-03-20] MEDS: ACETAMINOPHEN 1,000 MG/100 ML BAG 400 MG IVPB (07:51)
[2025-03-20] MEDS: Pantoprazole 40 MG VIAL IVP (07:51)
[2025-03-20] MEDS: Normal Saline Flush 10 ML SYR IVP (07:52)
[2025-03-20] MEDS: Scopolamine 1 MG/3 DAYS PATCH TD (08:40)
--- NOTE | 2025-03-20 13:10 | W.PM.PROGNOT ---
Date of Service Date of service: 03/20/25 Time of Service: 13:10 Assessment and Plan Assessment and plan (1) Comfort measures only status: Status: Acute Assessment and plan: Ed has HCA form that names his daughter, Alejandra to be his HCA. No alternative HCA. Met with her 03/16 evening and again 03/19, now transitioned to SHOCK ABSORPTION FLOOR LAYER. He has a COLST form on file- he is a DNR/DNI. Appreciate palliative consult and Ethics consult 03/17. Unfortunately Ed's son expressed understanding of his father's wishes that do not concur with observations from his healthcare team and the understanding of his sister. Discussed 03/19 Continue comfort care. Can use high dose hydromorphone drip, he is does not appear opioid intoxicated at 4mg/hr. (2) Seizure: Status: Acute Assessment and plan: On Keppra 250mg IV q12 hours and Valproic acid 250mg IV q6 hours No seizure activity noted Continues these while he is alert to prevent seizures (3) Chronic pain: Status: Chronic Assessment and plan: PO Morphine at home and fentanyl patch No longer taking PO. Continue patch but otherwise use SHOCK ABSORPTION FLOOR LAYER orders. Subjective Subjective Patient reports: denies diarrhea, vomiting or fever Interval history since last seen: Events: Hydromorphone drip titrated to 4mg/hr overnight. No new concerns Exam Narrative Exam Narrative: Opens eyes to verbal stimuli, makes eye contract, appears comfortable. Pupils 4mm sloane Respiration: Mild tachypnea, not rattling, coarse breath sounds bilat to ascultation Cardiovascular RRR no MRG. cap refil delayed in extremities ext: 2+ edema LE and UE, more puffy edema right arm. hands cool Objective Last Vital Signs Temp 36.2 C L 03/18/25 20:18 Pulse 73 03/18/25 20:18 Resp 9 L 03/18/25 20:18 BP 122/51 L 03/18/25 20:18 Pulse Ox 83 L 03/19/25 02:09 Time Spent with Patient Time Spent with Patient: 25-34 minutes Time was spent: ordering medications,tests, procedures, referring, communicating with other health healthcare management and care coordination
--- NOTE | 2025-03-20 13:20 | NUR.NOTE ---
Nursing Note: pt started on higher concentration dose of hydromorphone. Previous bag patient was on 4mg/hr, due to need to titrate up, pt was started at 6mg per hour per titration orders. MARIE RN
[2025-03-20] MEDS: LORazepam 2 MG/ML VIAL 1 MG IV/SC (16:07)
[2025-03-21] MEDS: Normal Saline Flush 10 ML SYR IVP ×2 (09:53→23:03)
[2025-03-21] MEDS: LORazepam 2 MG/ML VIAL 1 MG IV/SC ×2 (09:58→16:26)
--- NOTE | 2025-03-21 10:07 | PGE_ITS ---
Date of Service Date of service: 03/21/25 Time of Service: 10:07 Assessment and Plan Assessment and plan (1) Comfort measures only status: Status: Acute Assessment and plan: -After previous provider had discussion with patients sole HCA Alejandra (daughter), decision was made on the evening of 03/19 for the patient to transition to MOBILE PHONE SALESPERSON -He has a COLST form on file- he is a DNR/DNI. -Appreciate palliative consult and Ethics consult 03/17. -Unfortunately Ed's son expressed understanding of his father's wishes that do not concur with observations from his healthcare team and the understanding of his sister; this was discussion with previous provider on 03/19 -Continue comfort care. -Can use high dose hydromorphone drip, he is does not appear opioid intoxicated at 4mg/hr. (2) Seizure: Status: Acute Assessment and plan: -On Keppra 250mg IV q12 hours and Valproic acid 250mg IV q6 hours -No seizure activity noted -Continues these while he is alert to prevent seizures (3) Chronic pain: Status: Chronic Assessment and plan: -PO Morphine at home and fentanyl patch -No longer taking PO. -Continue patch but otherwise use MOBILE PHONE SALESPERSON orders as noted above Subjective Subjective Interval history since last seen: Patient laying in bed, able to open eyes does not appear to be in any acute distress Exam Narrative Exam Narrative: Chronically ill-appearing gentleman laying in bed in no acute distress, opens eyes, breathing nonlabored Objective Last Vital Signs Temp 97.2 F L 03/18/25 20:18 Pulse 73 03/18/25 20:18 Resp 9 L 03/18/25 20:18 BP 122/51 L 03/18/25 20:18 Pulse Ox 83 L 03/19/25 02:09 Time Spent with Patient Time Spent with Patient: >50 minutes Time was spent: preparing to see the patient(eg.review tests), obtaining and/or reviewing separately otained hiistory, ordering medications,tests, procedures, referring, communicating with other health care center manager, indepentently interpreting results, counseling the patient and care coordination
[2025-03-21 19:00] VITALS: RESP 9
[2025-03-21 23:00] VITALS: RESP 10
[2025-03-22 04:46] VITALS: RESP 9
--- NOTE | 2025-03-22 08:48 | PGE_ITS ---
Date of Service Date of service: 03/22/25 Time of Service: 08:48 Assessment and Plan Assessment and plan (1) Comfort measures only status: Status: Acute Assessment and plan: -After previous provider had discussion with patients sole HCA Alejandra (daughter), decision was made on the evening of 03/19 for the patient to transition to RECEIVING TANK OPERATOR -He has a COLST form on file- he is a DNR/DNI. -Appreciate palliative consult and Ethics consult 03/17. -Unfortunately Ed's son expressed understanding of his father's wishes that do not concur with observations from his healthcare team and the understanding of his sister; this was discussion with previous provider on 03/19 -Continue comfort care. -Can use high dose hydromorphone drip (2) Seizure: Status: Acute Assessment and plan: -On Keppra 250mg IV q12 hours and Valproic acid 250mg IV q6 hours -No seizure activity noted -Continues these while he is alert to prevent seizures (3) Chronic pain: Status: Chronic Assessment and plan: -PO Morphine at home and fentanyl patch -No longer taking PO. -Continue patch but otherwise use RECEIVING TANK OPERATOR orders as noted above Subjective Subjective Interval history since last seen: Patient laying in bed, able to open eyes does not appear to be in any acute distress Exam Narrative Exam Narrative: Chronically ill-appearing gentleman laying in bed in no acute distress, opens eyes, breathing nonlabored Objective Last Vital Signs Temp 97.2 F L 03/18/25 20:18 Pulse 73 03/18/25 20:18 Resp 9 L 03/22/25 04:46 BP 122/51 L 03/18/25 20:18 Pulse Ox 83 L 03/19/25 02:09 Time Spent with Patient Time Spent with Patient: >50 minutes Time was spent: preparing to see the patient(eg.review tests), obtaining and/or reviewing separately otained hiistory, ordering medications,tests, procedures, referring, communicating with other health career placement specialist, indepentently interpreting results, counseling the patient and care coordination
--- NOTE | 2025-03-22 09:18 | PDOC.CMPRO ---
Date of service: 03/22/25 Time of Service: 09:18 Care Management Progress Note Discharge Potential Discharge Needs: PCP F/U Appt Anticipated Barriers to Discharge: None Identified Patient/Family Education Needs: Review discharge instructions, discuss Ask Me Three Transportation: Private vehicle Plan: Ed has been transitioned to comfort care and was transferred out of the ICU. On Saturday he was started on a hydromorphone drip. He is now receiving 12 mg/hr (6 mls) and appears comfortable. He will remain at [facility] for end of life care. Social Determinants of Health Screening Will the Patient Participate in the Screening?: Unable to obtain
--- NOTE | 2025-03-22 10:50 | PDOC.CMPRO ---
Date of service: 03/22/25 Time of Service: 10:50 Care Management Progress Note Progress Note Text Progress Note Text: Ed peacefully this morning at 9:50 am. His daughter Alejandra and her family were by his side. Final arrangements have been made with [facility]. Social Determinants of Health Screening Will the Patient Participate in the Screening?: Unable to obtain
--- NOTE | 2025-03-22 11:56 | NUR.NOTE ---
Nursing Note: 3 attempts to call keith Mitchell, no answer, messages left. Call placed to [facility] d/t that is what daughter Nelia decided on, no previous arrangements made.
== END 2025-03-22 12:20 | disposition expired | DRG 871 ==
LOC: ER 10:05 → ICU 14:34 → MS 03-19 01:10
PROVIDERS: Hospitalist; Nurse Practitioner Acute Care; Admitting Provider Family Medicine; Emergency Provider Student in an Organized Health Care Education/Training Program; PCP Nurse Practitioner Family; Responsible Provider Family Medicine; Visit Provider Family Medicine
DX: A41.02 Sepsis due to Methicillin resistant Staphylococcus aureus (principal); E43 Unspecified severe protein-calorie malnutrition; L89.154 Pressure ulcer of sacral region, stage 4; L89.213 Pressure ulcer of right hip, stage 3; J96.01 Acute respiratory failure with hypoxia; J96.02 Acute respiratory failure with hypercapnia; J18.9 Pneumonia, unspecified organism; J69.0 Pneumonitis due to inhalation of food and vomit; I69.351 Hemiplegia and hemiparesis following cerebral infarction affecting right dominant side; E87.0 Hyperosmolality and hypernatremia; R65.20 Severe sepsis without septic shock; R56.9 Unspecified convulsions; I69.320 Aphasia following cerebral infarction; G89.4 Chronic pain syndrome; I10 Essential (primary) hypertension; R60.0 Localized edema; K21.9 Gastro-esophageal reflux disease without esophagitis; F32.A Depression, unspecified; E03.9 Hypothyroidism, unspecified; Z79.899 Other long term (current) drug therapy; H57.02 Anisocoria; Z51.5 Encounter for palliative care; R13.10 Dysphagia, unspecified; Z68.26 Body mass index [BMI] 26.0-26.9, adult; I89.0 Lymphedema, not elsewhere classified; D64.9 Anemia, unspecified; Z66 Do not resuscitate; N40.1 Benign prostatic hyperplasia with lower urinary tract symptoms; R33.8 Other retention of urine; E78.5 Hyperlipidemia, unspecified; J45.909 Unspecified asthma, uncomplicated; E11.42 Type 2 diabetes mellitus with diabetic polyneuropathy; F17.290 Nicotine dependence, other tobacco product, uncomplicated; Z79.4 Long term (current) use of insulin; L89.312 Pressure ulcer of right buttock, stage 2; I69.391 Dysphagia following cerebral infarction; R15.9 Full incontinence of feces; L89.892 Pressure ulcer of other site, stage 2; L89.620 Pressure ulcer of left heel, unstageable
CPT/HCPCS: 36410 ×2; 36620; 00123; 36415; 71275; 76942; 80048; 80053; 82805; 87040; 87077; 87641; 92610; 93005; 93971; 94761; 96365; 99291; J1650; 36600; 70450; 71045; 73200; 80202; 83605; 83735; 85025; 87186; 93010; 94640; 94660; 94760; 99223; 99232; 99233; J0131; J0456; J0692; J0696; J1171; J1815; J1953; J2060; J2270; J2470; J2919; J3370; J3372; J3490; J7620